=== PATIENT | male | born 1935 | race Caucasian/White ===

== ENCOUNTER 2022-03-14 14:10 | Outpatient (CLI) | payer MEDICARE, BC, SELFPAY | END 2022-03-14 14:11 | disposition home or self-care (01) | PROVIDERS: Visit Provider Family Medicine | DX: S79.911A Unspecified injury of right hip, initial encounter (principal); S09.90XA Unspecified injury of head, initial encounter; W18.30XA Fall on same level, unspecified, initial encounter; Y92.000 Kitchen of unspecified non-institutional (private) residence as the place of occurrence of the external cause | CPT/HCPCS: A0425; A0429 ==

== ENCOUNTER 2022-03-14 14:54 | Inpatient (IN) | payer MEDICARE, BC, SELFPAY ==
[2022-03-14] VITALS (17 sets, daily range): BP systolic 90–128; BP diastolic 47–69; PULSE 62–76; RESP 15–24; TEMP 36.4–37.6; O2SAT 87–98; BMI 31.1; BMI 27.4
--- NOTE | 2022-03-14 15:39 | CRLHL7_ITS ---
For Patients: As a result of the Century Cures Act, medical imaging exams and procedure reports are released immediately into your electronic medical record. You may view this report before your referring provider. If you have questions, please contact your health care provider. Indication: Fall left hip pain. Technique: CT of the pelvis without contrast. Coronal and sagittal reformations were performed. Please note that all CT scans at this facility use dose modulation, iterative reconstruction, and/or weight-based dosing when appropriate to reduce radiation dose to as low as reasonably achievable. Comparison: Abdominal CT 09/09/2020. Findings: No fracture or malalignment. Left total hip arthroplasty without evidence of loosening or fracture. Incomplete visualization of the left hip arthroplasty. Severe right hip osteoarthritis. Multilevel degenerative disc and facet disease in visualized lumbar spine. Bilateral SI joint degenerative change with subchondral cysts and vacuum disc phenomena. Degenerative changes in the pubic symphysis. Chondrocalcinosis in the pubic symphysis and right labral cartilage present Aortoiliac atherosclerosis. No aneurysm. Small fat containing left inguinal hernia. Remainder of the visualized pelvis is unremarkable. Impression: 1. No fracture or malalignment. 2. Left total hip arthroplasty without evidence of loosening or fracture. Incomplete evaluation. The distal tip of the left femoral prosthesis was not included on the exam. If patient`s pain is in this region recommend femur radiographs. 3. Severe right hip osteoarthritis. 4. Pubic symphysis, bilateral SI joints, and lower lumbar spine osteoarthritis. Please note that all CT scans at this facility use dose modulation, iterative reconstruction, and/or weight-based dosing when appropriate to reduce radiation dose to as low as reasonably achievable. Dictated by Raul Watkins MD @ 03/15/2022 9:27:22 AM (Electronically Signed)
--- NOTE | 2022-03-14 15:43 | CRLHL7_ITS ---
For Patients: As a result of the Century Cures Act, medical imaging exams and procedure reports are released immediately into your electronic medical record. You may view this report before your referring provider. If you have questions, please contact your health care provider. INDICATION: Fall. Low back pain. TECHNIQUE: CT of the lumbar spine without contrast. Coronal and sagittal reformats are included. COMPARISON: CT abdomen/pelvis from 09/09/2020. FINDINGS: Five lumbar type vertebral bodies, with the last fully formed disc space referred to as L5-S1. No acute fracture or traumatic malalignment of the lumbar spine. Multilevel laminectomy changes at the inferior thoracic levels through inferior L2. Focal lumbar kyphosis centered at L2-3. Accentuated lower lumbar lordosis. Moderate levoconvex scoliosis with apex at L3. Rightward lateral listhesis of L1 on L2. Leftward lateral listhesis of L3 on L4. L1-2 widening of the interspace due to large endplate erosions along with mild L1 anterior inferior height loss and L2 advanced right-sided height loss. There is also L2-3 interspace bony ankylosis with advanced right-sided height loss. L4-5 and L5-S1 moderate disc degeneration with disc height loss, partial intradiscal mineralization and large L5-S1 anterior paravertebral osteophyte. Atherosclerotic abdominal aorta and branch vessels. 2.5 centimeter gallstone is situated at the approximate region of the gallbladder fundus. Accompanying wall thickening of the gallbladder with mild surrounding fat stranding. Left posterior lumbar stimulator or pump control box. Findings at individual levels as follows: T11-12: Bilateral decompressive laminectomy changes. Mild disc bulge with overlying osteophytic ridging. No spinal canal or neural foraminal stenosis. T12-L1: Bilateral decompressive laminectomy changes. Mild disc bulge. No spinal canal or neural foraminal stenosis. L1-2: Bilateral decompressive laminectomy changes. Trace retrolisthesis. Moderate disc bulge with both the overlying osteophytic ridging. Bilateral facet arthrosis. At least moderate bilateral neural foraminal stenosis. L2-3: Bilateral decompressive laminectomy changes. Bulky dorsal osteophyte protrudes into the ventral spinal canal. Bilateral facet arthrosis. Advanced bilateral neural foraminal stenosis. L3-4: Trace anterolisthesis. Moderate disc bulge with overlying osteophytic ridging. Bilateral high-grade facet arthrosis and ligamentum flavum thickening. At least moderate spinal canal stenosis. Mild left and advanced right neural foraminal stenosis. L4-5: Trace anterolisthesis. Moderate disc bulge with overlying osteophytic ridging. High-grade right facet arthrosis. Mild left neural foraminal stenosis. No right neural foraminal stenosis or spinal canal stenosis. L5-S1: Trace anterolisthesis. Mild disc bulge with overlying osteophytic ridging, asymmetric to the left. Left facet arthrosis. Mild left neural foraminal stenosis. No right neural foraminal stenosis or spinal canal stenosis. SI joints and Sacrum: Bilateral SI joint arthrosis with joint space narrowing, vacuum phenomenon and subchondral sclerosis. Large right anterior sacral subchondral osteophytes. IMPRESSION: 1. CT findings suspicious for acute cholecystitis. 2. No acute fracture or traumatic malalignment of the lumbar spine. 3. Unchanged appearance of the deformed lumbar spine with L1-2 large endplate erosions/interspace widening, L2-3 interspace ankylosis and L1 through L3 asymmetric vertebral body height loss. When combined multilevel disc degeneration and degenerative subluxations, there is focal upper lumbar kyphosis and moderate levoconvex scoliosis. 4. Multilevel decompressive laminectomies at the lower thoracic levels through inferior L2. 5. At L1-2, at least moderate bilateral foraminal stenosis. 6. At L2-3, advanced bilateral neural foraminal stenosis. 7. At L3-4, at least moderate spinal canal stenosis and advanced right neural foraminal stenosis. 8. Exam findings discussed between Dr. Vasquez and Dr. Jona Anderson at 5:05 p.m. on March 14, 2022. Please note that all CT scans at this facility use dose modulation, iterative reconstruction, and/or weight-based dosing when appropriate to reduce radiation dose to as low as reasonably achievable. Dictated by Boni Lambert MD @ 03/15/2022 9:06:29 AM (Electronically Signed)
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
[2022-03-14] MEDS: HYDROCODONE-ACETAMIN 5-325 MG 1 TAB 2 TAB PO (15:57)
[2022-03-14] MEDS: 0.9 % SODIUM CHLORIDE 500 ML 500 ML IV (15:58)
[2022-03-14 16:16] LABS: Basophils Percent Auto 0.1 % (0.0-3.0); Hematocrit 36.7 % (37.0-53.0); Hemoglobin* 12.1 gm/dL (13.5-17.5); Immature Granulocytes Abs Auto 0.04 K/uL (0.00-0.30); Lymphocytes Percent Auto 4.6 % (20-44); Mean Corpuscular HGB Conc 33 gm/dL (32-36); Mean Corpuscular Hemoglobin 28 pg (26-34); Mean Corpuscular Volume 86 fL (80-100); Monocytes Percent Auto 10.7 % (0.0-11.0); Neutrophils Percent Auto 84.3 % (42.0-72.0); Platelet Count* 162 K/uL (140-440); RDW Coefficient of Variation % 15.2 % (11.5-15.5); Red Blood Count 4.26 m/uL (4.30-5.90); White Blood Count* 14.71 K/uL (4.50-11.00)
[2022-03-14 16:28] LABS: Slide Review Reflex No
[2022-03-14] MEDS: SENNOSIDES/DOCUSATE TABLET 1 TAB PO (16:38)
--- NOTE | 2022-03-14 16:41 | CRLHL7_ITS ---
For Patients: As a result of the Century Cures Act, medical imaging exams and procedure reports are released immediately into your electronic medical record. You may view this report before your referring provider. If you have questions, please contact your health care provider. INDICATION: Hypoxia, fever, elevated white blood cell count. TECHNIQUE: Chest 1 views. COMPARISON: Lumbar CT of same day. Chest radiograph June 2018 FINDINGS: Lungs: Normal lung volume. No consolidation. The tracheobronchial tree and hilar structures are unremarkable. Pleura: No pleural effusion or pneumothorax. Heart and Mediastinum: Stable cardiomegaly. ICD/pacer. Large hiatal hernia.. Atherosclerotic aorta. Bones: Stable osseous structures. IMPRESSION: No consolidation. Large hiatal hernia. Dictated by Jona Talavera MD @ 03/14/2022 5:21:38 PM (Electronically Signed)
[2022-03-14 16:56] LABS: Albumin* 3.3 g/dL (3.3-5.0); Chloride* 102 mmol/L (96-114); Sodium* 133 mmol/L (135-149)
[2022-03-14 16:57] LABS: Potassium* 4.2 mmol/L (3.6-5.1)
[2022-03-14 16:59] LABS: Bilirubin Total* 4.1 mg/dL (0.1-1.5); Creatinine* 1.1 mg/dL (0.5-1.5); Est. Creatinine Clearance* 43.48; Estimated Glomerular Filt Rate 66 ml/min
[2022-03-14 17:00] LABS: Alanine Aminotransferase* 54 U/L (4-50); Alkaline Phosphatase* 130 U/L (40-150); Aspartate Amino Transferase* 113 U/L (12-35); Blood Urea Nitrogen* 33 mg/dL (7-30); Calcium* 8.4 mg/dL (8.4-10.6); Carbon Dioxide* 24 mmol/L (20-32); Glucose* 140 mg/dL (60-115); Total Protein* 5.9 g/dL (6.0-8.3)
[2022-03-14 17:05] LABS: Appearance Urine Clear (Clear); Bilirubin Urine 1+ (Negative); Blood Urine Trace-lysed (Negative); Color Urine Orange (Yellow); Glucose Urine Negative (Negative); Ketones Urine Negative (Negative); Leukocyte Esterase Urine Negative (Negative); Nitrite Urine Positive (Negative); Protein Urine 2+ (Negative); pH Urine 5.5 (5.0-8.5)
--- NOTE | 2022-03-14 17:06 | CRLHL7_ITS ---
For Patients: As a result of the Century Cures Act, medical imaging exams and procedure reports are released immediately into your electronic medical record. You may view this report before your referring provider. If you have questions, please contact your health care provider. INDICATION: Fever, evidence of cholecystitis on CT.. TECHNIQUE: Ultrasound abdomen limited. Sonographic images of the right upper quadrant were obtained using fay-scale and color Doppler images. COMPARISON: CT of the chest abdomen pelvis from March 14, 2022. FINDINGS: Liver: Not well visualized. Visualized portions appear to be normal in size and echotexture. No suspicious masses. No intrahepatic biliary dilatation identified. Gallbladder: Large shadow stone is identified at the gallbladder neck, measuring approximately 2 centimeters in diameter. Increased gallbladder wall thickening measuring up to 5 millimeters in diameter.. Gallbladder sludge is noted within the lumen of the gallbladder.. Possible small pericholecystic fluid. Common bile duct: 4 mm. Pancreas: Not well visualized Right kidney: Normal in size. Complex cystic structure with peripheral calcification within the superior pole the right kidney no suspicious stones, or hydronephrosis. Vasculature: Proximal abdominal aorta and IVC are unremarkable. IMPRESSION: Ultrasound findings most consistent with cholecystitis. Large stone at the neck of the gallbladder. Complex cystic structure at the superior pole the right kidney. This can be further evaluated with dedicated renal ultrasound and/or renal protocol CT or MRI. Dictated by Abraham Major MD @ 03/14/2022 6:45:16 PM (Electronically Signed)
[2022-03-14 17:19] LABS: C Reactive Protein* 19.2 mg/dL (0.5-1.0)
--- NOTE | 2022-03-14 17:29 | CRLHL7_ITS ---
For Patients: As a result of the Century Cures Act, medical imaging exams and procedure reports are released immediately into your electronic medical record. You may view this report before your referring provider. If you have questions, please contact your health care provider. INDICATION: Hypoxia, fever. TECHNIQUE: CT chest, abdomen, and pelvis acquired with 95 mL Isovue 370 contrast. COMPARISON: CT abdomen/pelvis dated 09/09/2020. FINDINGS: CHEST: Lungs and pleura: Bibasilar dependent atelectasis. No focal consolidation. No evidence of pulmonary infarct. Heart and vessels: Mild cardiomegaly. Atherosclerotic coronary artery calcifications. No filling defects identified within the main, lobar, and contrast opacified portions of the segmental pulmonary arteries. Thyroid and lower neck: No suspicious thyroid nodule. Mediastinum/danyelle: No lymphadenopathy. Chest wall: No axillary lymphadenopathy. Cardiac pacemaker is present in the left chest wall. Small intramuscular lipoma in the right lateral chest wall. ABDOMEN/PELVIS: Liver: No suspicious focal hepatic lesion. Gallbladder and bile ducts: Distended gallbladder with significant gallbladder wall thickening and/or pericholecystic fluid. A large 2.8 cm gallstone is lodged at the gallbladder neck. Mild intrahepatic biliary duct dilation. Pancreas: Scattered cystic lesions, largest measures up to 1.7 cm at the pancreatic tail, slightly increased since prior study. Spleen: Unremarkable. Adrenal glands: Unremarkable. Kidneys: Kidneys enhance symmetrically, without hydronephrosis. Heterogeneous complex 2.5 cm right renal lesion (series 8, image 60), has slightly decreased in size since prior study, and may reflect an involuting complex cyst. Stable indeterminate 4.0 cm exophytic lesion in the interpolar region of the left kidney. Additional bilateral renal cysts and too small to characterize hypodense renal lesions are noted. Retroperitoneum: No lymphadenopathy. Bowel and mesentery: Bowel is nonobstructed. Scattered colonic diverticulosis, without evidence of acute diverticulitis. Large fecal burden is scattered throughout the colon. No significant ascites. Large hiatal hernia. No definite pneumoperitoneum. Bladder: Mild circumferential bladder wall thickening. Reproductive organs: Prostatomegaly. Pelvic lymph nodes: No definite lymphadenopathy. Vessels: Extensive atherosclerotic calcifications. Abdominal wall: No acute abdominal wall abnormality. Bones: Extensive and severe multilevel degenerative changes of the spine. Left hip arthroplasty. Spinal stimulator device is present. IMPRESSION: 1. Distended gallbladder with significant gallbladder wall thickening and/or pericholecystic fluid, in the presence of a large gallstone lodged at the gallbladder neck. Findings are concerning for acute cholecystitis. 2. No evidence of acute pulmonary embolus. 3. Indeterminate bilateral renal lesions as described above. Scattered cystic lesions within the pancreas. These both can be evaluated with follow-up MR abdomen in 6-12 months. 4. Mild circumferential bladder wall thickening, recommend correlation with urinalysis. 5. Numerous additional incidental findings as above. Please note that all CT scans at this facility use dose modulation, iterative reconstruction, and/or weight-based dosing when appropriate to reduce radiation dose to as low as reasonably achievable. Dictated by Nikki Martel MD @ 03/14/2022 7:07:21 PM (Electronically Signed)
[2022-03-14 17:36] LABS: SARS PCR* Negative SARS-CoV-2 (Negative)
[2022-03-14 17:44] LABS: Bacteria Urine Few; RBC Urine 0-2 (0-2); Squamous Epithelial Cell Urine Moderate (None-Few)
[2022-03-14 17:56] LABS: Bilirubin Direct* 1.1 mg/dL (0.0-0.5)
[2022-03-14 18:24] LABS: HCO3 VBG 26 mmol/L (21-28); PCO2 VBG 40 mmHG (40-50); PO2 VBG 46.8 mmHG (25-47); pH VBG 7.409 (7.32-7.43)
[2022-03-14] MEDS: ERTAPENEM 1 GM in 0.9 % SODIUM CHLORIDE Mini-bag 100 ML IVPB (18:26)
[2022-03-14] MEDS: LACTATED RINGERS 1000 ML IV (18:45)
[2022-03-14 20:56] LABS: NT Pro B Type NatriureticPept* 3580 PG/mL (0-450)
[2022-03-14 21:01] LABS: Troponin I* 0.06 ng/mL (0.01-0.04)
--- NOTE | 2022-03-14 21:02 | ED.NURSE ---
Critical Lab: Troponin I 0.06, handed to Dr. Benavidez at 2103.
--- NOTE | 2022-03-14 21:06 | ED.NURSE ---
MD Tran updated on 0..
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
--- NOTE | 2022-03-14 21:41 | ED.NURSE ---
report to ranjit jones on med surg, pt transported via cot to ccu2
[2022-03-14] MEDS: LACTATED RINGERS 1000 ML 1,000 ML 75 ML IV (22:15)
[2022-03-14] MEDS: LACTATED RINGERS 1000 ML 500 ML IV (22:15)
[2022-03-14 22:58] LABS: Lactate* 1.2 mmol/L (0.5-1.9)
[2022-03-14 23:14] LABS: Albumin* 3.3 g/dL (3.3-5.0)
[2022-03-14 23:15] LABS: Chloride* 100 mmol/L (96-114); Potassium* 4.3 mmol/L (3.6-5.1); Prothrombin Time 16.7 Seconds; Sodium* 134 mmol/L (135-149)
[2022-03-14 23:17] LABS: Alkaline Phosphatase* 128 U/L (40-150); Aspartate Amino Transferase* 80 U/L (12-35); Bilirubin Total* 4.4 mg/dL (0.1-1.5); Blood Urea Nitrogen* 28 mg/dL (7-30); Carbon Dioxide* 27 mmol/L (20-32); Creatinine* 0.9 mg/dL (0.5-1.5); Est. Creatinine Clearance* 51.41; Estimated Glomerular Filt Rate 84 ml/min; Total Protein* 5.9 g/dL (6.0-8.3)
[2022-03-14 23:18] LABS: Alanine Aminotransferase* 55 U/L (4-50); Calcium* 8.4 mg/dL (8.4-10.6); Glucose* 112 mg/dL (60-115)
[2022-03-14 23:23] LABS: Gamma Glutamyl Transpeptidase* 45 U/L (8-55); Lipase* 25 U/L (23-300)
[2022-03-14 23:29] LABS: Troponin I* 0.05 ng/mL (0.01-0.04)
--- NOTE | 2022-03-14 23:50 | PC.NURSE ---
Addendum entered by Randy Licona RN 03/15/22 06:44: Pt upset and asking for to call his and son to come in now and take him home tried to redirect and then he fell asleep after ANITA applied again as he c/o being cold and was shaking. Addendum entered by Randy Licona RN 03/15/22 06:09: UOP from [id number] 75mls lucille urine via Christine catheter. Confusion waxing and waning. Ultram given for pain w/repositioning and top linens and gown changed as they were a little sweaty. O2 decreased to 1LNC Addendum entered by Randy Licona RN 03/15/22 04:20: Pt c/o being cold and hands were cold so ANITA blanket applied for about an hour at about 0100. Temp went to 100.2. Took ANITA off and gave Tylenol and temp resolved to 97.9 at 0400. Pt is a little sweaty. He is more oriented, less fidgety and was able to assist in repositioning done to point of comfort. UOP from about 2200 to 0400 350mls dark lucille urine. Tele is 60-70s sinus arrythmia, occ paced, occ PVCs. Has been taking in sips of liquids Original Note: Admitted to room CCU2 about 2100. VSS 1LNC needing increase to 2LNC by 0000. Apparently has some FERNANDA issues. O2 sats and NIBP monitored continuously. Has denied pain at rest but seems to have a lot of musculoskeletal pain when moved. Pt is very confused which according to his is a bit of a departure and [place]. Pt placed on hard-wired telemetry reads irregular sinus rhythm w/BBB and occ PVCs. Bowel tones hypoactive and abdomen is soft and non tender. reported PCN allergy which I entered and Dr. Cueto was updated and I entered an adverse reaction to opiates d/t confusion as well. Christine catheter inserted w/a lot of resistance at about from the 1 inch to 3 inch mary using 16fr coude catheter returned 100mls dark lucille urine pt was incontinent of large amount on admit. Has 2 small intact band aids to the right L/E.
[2022-03-15] VITALS (24 sets, daily range): BP systolic 97–170; BP diastolic 57–85; PULSE 66–116; RESP 17–32; TEMP 36.3–38.2; O2SAT 92–99
[2022-03-15] MEDS: ACETAMINOPHEN 325 MG TABLET PO (01:45)
[2022-03-15] MEDS: TRAMADOL HCL 50 MG TABLET PO (05:58)
[2022-03-15 07:15] LABS: HCO3 VBG 24 mmol/L (21-28); Ionized Calcium* 1.13 mmol/L (1.11-1.30); Lactate* 0.7 mmol/L (0.5-1.9); PCO2 VBG 33 mmHG (40-50); PO2 VBG 68.9 mmHG (25-47); pH VBG 7.469 (7.32-7.43)
[2022-03-15 07:30] LABS: Hematocrit 35.3 % (37.0-53.0); Hemoglobin* 11.5 gm/dL (13.5-17.5); Mean Corpuscular HGB Conc 33 gm/dL (32-36); Mean Corpuscular Hemoglobin 28 pg (26-34); Mean Corpuscular Volume 86 fL (80-100); Platelet Count* 180 K/uL (140-440); Red Blood Count 4.09 m/uL (4.30-5.90); White Blood Count* 13.94 K/uL (4.50-11.00)
[2022-03-15 07:32] LABS: Slide Review Reflex No
[2022-03-15 07:40] LABS: INR 1.39 (0.91-1.10); Prothrombin Time 17.5 Seconds
[2022-03-15 07:42] LABS: Albumin* 2.9 g/dL (3.3-5.0); Chloride* 105 mmol/L (96-114); Sodium* 134 mmol/L (135-149)
[2022-03-15 07:45] LABS: Aspartate Amino Transferase* 52 U/L (12-35); Carbon Dioxide* 23 mmol/L (20-32); Creatinine* 0.8 mg/dL (0.5-1.5); Est. Creatinine Clearance* 51.41; Estimated Glomerular Filt Rate 87 ml/min
[2022-03-15 07:46] LABS: Alanine Aminotransferase* 45 U/L (4-50); Alkaline Phosphatase* 126 U/L (40-150); Blood Urea Nitrogen* 23 mg/dL (7-30); Calcium* 8.2 mg/dL (8.4-10.6); Gamma Glutamyl Transpeptidase* 41 U/L (8-55); Glucose* 102 mg/dL (60-115); Lipase* 15 U/L (23-300); Magnesium* 1.9 mg/dL (1.5-2.6); Total Protein* 5.4 g/dL (6.0-8.3)
[2022-03-15 07:56] LABS: NT Pro B Type NatriureticPept* 4400 PG/mL (0-450)
[2022-03-15 08:01] LABS: Troponin I* 0.05 ng/mL (0.01-0.04)
[2022-03-15 08:02] LABS: C Reactive Protein* 22.6 mg/dL (0.5-1.0)
[2022-03-15] MEDS: OMEPRAZOLE 20 MG CAPSULE DR 40 MG PO (09:01)
[2022-03-15] MEDS: ROPINIROLE HCL 0.25 MG TABLET PO ×2 (09:01→14:25)
[2022-03-15] MEDS: ASPIRIN 81 MG TABLET EC PO (09:02)
[2022-03-15] MEDS: GABAPENTIN 300 MG CAPSULE 600 MG PO ×2 (09:02→14:24)
[2022-03-15 09:27] LABS: Bilirubin Total* 3.2 mg/dL (0.1-1.5)
[2022-03-15 09:28] LABS: Bilirubin Direct* 1.1 mg/dL (0.0-0.5)
--- NOTE | 2022-03-15 11:21 | P.GSCN_ITS ---
History of Present Illness Consult details Date Seen: 03/15/22 Consult date: 03/15/22 Narrative: 86-year-old male presented to emergency room with abdominal pain and fever and I was asked by Dr. Black to see him in consultation. Patient states that he recently fell and was having back pain. He also describes a mild generalized abdominal pain since his fall. He also occasionally had pain in the right mid abdomen that he described as dull. This pain has been present for many months and has not changed significantly recently. Patient feel like this pain was worse after over eating but not necessarily eating greasy food. Patient denies any nausea vomiting. He had constipation with no bowel movement for 3-4 days. His gave him a fleets enema and he had a bowel movement. In the emergency room he was found to have an elevated WBC. His total bilirubin and direct bilirubin were elevated with minimally elevated transaminases and normal alkaline phosphatase. Patient had an abdominal CT scan that showed thickened gallbladder wall with significant amount of pericholecystic fluid. There was a gallstone in the neck of the gallbladder. A gallbladder ultrasound was also obtained that showed thickened gallbladder wall 5 mm. There was evidence of a gallstone and the common bile duct was measured at 4 mm. Patient had an abdominal CT in September of 2020 that mentioned possible gallbladder wall thickening with cholelithiasis. Review of Systems Narrative: General: + fever HENT: no problems swallowing CV: no shortness of breath Resp: no cough GI: see above : + increased urinary frequency Skin: no new rashes Musculoskeletal: + back pain from recent fall Neuro: needs help with walking Psyche: no depression PFSH PFSH Medical History (Updated 03/15/22 @ 16:17 by Rickey Black MD) Acute on chronic cholecystitis Anastomotic stricture of urinary tract Antiplatelet or antithrombotic long-term use BPH (benign prostatic hyperplasia) Cardiomyopathy Chronic pain disorder Chronotropic incompetence with sinus node dysfunction Coronary artery disease Dyslipidemia GERD (gastroesophageal reflux disease) History of cervical spine trauma Hypertension Pacemaker Pancreatic cyst Personal history of sudden cardiac arrest Post laminectomy syndrome Surgical History A-V fistula H/O cataract removal with insertion of prosthetic lens H/O hemorrhoidectomy History of appendectomy History of coronary artery stent placement History of hip replacement History of permanent cardiac pacemaker placement Hx of laminectomy S/P tonsillectomy and adenoidectomy Social History (Updated 03/15/22 @ 11:22 by Jennifer Tran MD) Narrative: Patient lives with his . Does not walk a lot on his own because of frequent falls. Smoking Status: Never smoker Do you use any of these nicotine containing products: None How often do you have a drink containing alcohol: never AUDIT-C Alcohol total score: 0 Non-prescribed substance use: denies use Meds Home Medications and Allergies Home Medications Medication Instructions Recorded Confirmed Type amlodipine 2.5 mg tablet 2.5 mg PO DAILY 03/14/22 03/14/22 History atorvastatin 40 mg tablet 40 mg PO NIGHTLY 03/14/22 03/14/22 History clopidogrel 75 mg tablet 75 mg PO DAILY 03/14/22 03/14/22 History gabapentin 300 mg capsule 600 mg PO TID 03/14/22 03/14/22 History metoprolol succinate 25 mg 25 mg PO DAILY 03/14/22 03/14/22 History tablet,extended release 24 hr oxybutynin chloride 10 mg 10 mg PO DAILY 03/14/22 03/14/22 History tablet,extended release 24 hr pantoprazole 40 mg tablet,delayed 40 mg PO DAILY 03/14/22 03/14/22 History release ropinirole 0.25 mg tablet 0.25 mg PO TID 03/14/22 03/14/22 History tramadol 50 mg tablet 50 mg PO BID PRN pain 03/14/22 03/14/22 History aspirin 81 mg chewable tablet 81 mg PO DAILY 03/15/22 03/15/22 History (Aspirin Childrens) sennosides 8.6 mg tablet (Winnie-snehal) 8.6 mg PO DAILY 03/15/22 03/15/22 History tamsulosin 0.4 mg capsule 0.4 mg PO DAILY 03/15/22 03/15/22 History Allergies Allergy/AdvReac Type Severity Reaction Status Date / Time Penicillins Allergy Verified 03/15/22 07:26 Exam Narrative: Exam Narrative: General appearance: Alert, cooperative, and in no distress Pulmonary: Chest symmetric, lungs clear bilaterally Cardiovascular Heart: Regular rate and rhythm, S1, S2, no murmurs/rubs/gallops Gastrointestinal Abdominal: very soft, not distended , minimal discomfort to palpation in the left lower quadrant and right upper quadrant, with deep palpation in the right upper quadrant patient has increased discomfort but negative James sign. Skin: Normal skin color, texture, and turgor. No rashes or lesions. Psychiatric: Alert, cooperative, normal affect. Const: Vital Signs, click to edit/add: Vital Signs - 24 hr 03/14/22 15:03 03/14/22 16:13 03/14/22 17:08 Temperature 99.6 F Pulse Rate Pulse Rate [Apical ] Pulse Rate [Right Pulse Oximeter] 70 74 64 Respiratory Rate 18 24 Blood Pressure Blood Pressure [Le ft Upper Arm] 98/60 109/64 100/56 L Blood Pressure [Ri ght Arm] Pulse Oximetry 90 96 97 Oxygen Delivery Me thod Room Air Room Air Nasal Cannula Oxygen Flow Rate 2.5 03/14/22 16:29 03/14/22 17:08 03/14/22 17:52 Temperature Pulse Rate 69 Pulse Rate [Apical ] Pulse Rate [Right Pulse Oximeter] Respiratory Rate Blood Pressure 91/62 Blood Pressure [Le ft Upper Arm] Blood Pressure [Ri ght Arm] Pulse Oximetry 96 96 Oxygen Delivery Me thod Nasal Cannula Nasal Cannula Oxygen Flow Rate 2.5 2.5 03/14/22 18:53 03/14/22 18:02 03/14/22 18:34 Temperature 97.5 F L Pulse Rate 73 Pulse Rate [Apical ] Pulse Rate [Right Pulse Oximeter] 65 Respiratory Rate 15 Blood Pressure 96/61 101/59 L Blood Pressure [Le ft Upper Arm] 101/59 L Blood Pressure [Ri ght Arm] Pulse Oximetry 97 87 L 97 Oxygen Delivery Me thod Nasal Cannula Oxygen Flow Rate 2.5 03/14/22 19:01 03/14/22 19:31 03/14/22 20:02 Temperature Pulse Rate 65 65 64 Pulse Rate [Apical ] Pulse Rate [Right Pulse Oximeter] Respiratory Rate Blood Pressure 103/59 L 102/68 112/69 Blood Pressure [Le ft Upper Arm] Blood Pressure [Ri ght Arm] Pulse Oximetry 95 96 96 Oxygen Delivery Me thod Oxygen Flow Rate 03/14/22 20:31 03/14/22 21:02 03/14/22 21:45 Temperature 98.0 F Pulse Rate 63 62 Pulse Rate [Apical ] 76 Pulse Rate [Right Pulse Oximeter] Respiratory Rate 24 Blood Pressure 90/47 L 97/49 L Blood Pressure [Le ft Upper Arm] Blood Pressure [Ri ght Arm] 125/66 Pulse Oximetry 94 98 Oxygen Delivery Me thod Nasal Cannula Oxygen Flow Rate 1 03/14/22 23:08 03/14/22 23:08 03/14/22 23:10 Temperature Pulse Rate 75 Pulse Rate [Apical ] 72 Pulse Rate [Right Pulse Oximeter] Respiratory Rate 24 24 Blood Pressure Blood Pressure [Le ft Upper Arm] Blood Pressure [Ri ght Arm] 128/68 Pulse Oximetry 96 95 Oxygen Delivery Me thod Nasal Cannula Nasal Cannula Oxygen Flow Rate 1 1 03/14/22 23:49 03/14/22 23:49 03/15/22 01:00 Temperature Pulse Rate Pulse Rate [Apical ] 83 Pulse Rate [Right Pulse Oximeter] Respiratory Rate 20 Blood Pressure Blood Pressure [Le ft Upper Arm] Blood Pressure [Ri ght Arm] 119/62 Pulse Oximetry 88 96 94 Oxygen Delivery Me thod Nasal Cannula Nasal Cannula Nasal Cannula Oxygen Flow Rate 1 2 2 03/15/22 01:31 03/15/22 02:05 03/15/22 03:03 Temperature 100.3 F H 99.1 F Pulse Rate Pulse Rate [Apical ] 81 91 89 Pulse Rate [Right Pulse Oximeter] Respiratory Rate 24 20 Blood Pressure Blood Pressure [Le ft Upper Arm] Blood Pressure [Ri ght Arm] 112/57 L 117/63 103/57 L Pulse Oximetry 94 95 92 Oxygen Delivery Me thod Nasal Cannula Nasal Cannula Nasal Cannula Oxygen Flow Rate 2 2 2 03/15/22 03:42 03/15/22 04:11 03/15/22 05:04 Temperature 97.9 F 98.3 F Pulse Rate 71 Pulse Rate [Apical ] 66 66 Pulse Rate [Right Pulse Oximeter] Respiratory Rate 20 24 Blood Pressure Blood Pressure [Le ft Upper Arm] Blood Pressure [Ri ght Arm] 116/60 105/62 Pulse Oximetry 96 94 Oxygen Delivery Me thod Nasal Cannula Nasal Cannula Oxygen Flow Rate 2 2 03/15/22 05:34 03/15/22 06:10 03/15/22 07:40 Temperature 97.6 F Pulse Rate Pulse Rate [Apical ] 77 Pulse Rate [Right Pulse Oximeter] Respiratory Rate 24 Blood Pressure Blood Pressure [Le ft Upper Arm] Blood Pressure [Ri ght Arm] 105/62 112/60 Pulse Oximetry 98 97 Oxygen Delivery Me thod Nasal Cannula Nasal Cannula Oxygen Flow Rate 2 0.5 03/15/22 07:40 03/15/22 07:12 03/15/22 08:00 Temperature 97.4 F L Pulse Rate 76 Pulse Rate [Apical ] 95 77 Pulse Rate [Right Pulse Oximeter] Respiratory Rate 20 Blood Pressure Blood Pressure [Le ft Upper Arm] Blood Pressure [Ri ght Arm] 97/67 104/76 Pulse Oximetry 97 Oxygen Delivery Me thod Nasal Cannula Oxygen Flow Rate 0.5 03/15/22 11:12 Temperature 99.2 F Pulse Rate Pulse Rate [Apical ] 92 Pulse Rate [Right Pulse Oximeter] Respiratory Rate 18 Blood Pressure Blood Pressure [Le ft Upper Arm] Blood Pressure [Ri ght Arm] 142/69 H Pulse Oximetry 95 Oxygen Delivery Me thod Nasal Cannula Oxygen Flow Rate 0.5 Results Labs Labs: Abnormal lab results 03/14/22 03/14/22 03/14/22 Range/Units 16:07 16:07 16:57 WBC 14.71 H (4.50-11.00) K/uL RBC 4.26 L (4.30-5.90) m/uL Hgb 12.1 L (13.5-17.5) gm/dL Hct 36.7 L (37.0-53.0) % Neut % (Auto) 84.3 H (42.0-72.0) % Lymph % (Auto) 4.6 L (20-44) % Neut # (Auto) 12.40 H (1.7-7.0) K/uL Lymph # (Auto) 0.70 L (0.90-2.90) K/uL [place] # (Auto) 1.60 H (0.00-0.90) K/UL INR (0.91-1.10) VBG pH (7.32-7.43) VBG pCO2 (40-50) mmHG VBG pO2 (25-47) mmHG Sodium 133 L (135-149) mmol/L BUN 33 H (7-30) mg/dL Glucose 140 H (60-115) mg/dL Calcium (8.4-10.6) mg/dL Total Bilirubin 4.1 H (0.1-1.5) mg/dL Direct Bilirubin 1.1 H (0.0-0.5) mg/dL AST 113 H (12-35) U/L ALT 54 H (4-50) U/L Troponin I 0.06 H* (0.01-0.04) ng/mL C-Reactive Protein 19.2 H (0.5-1.0) mg/dL NT-Pro-B Natriuret Pep 3580 H (0-450) PG/mL Total Protein 5.9 L (6.0-8.3) g/dL Albumin (3.3-5.0) g/dL Lipase (23-300) U/L Urine Color [place] A (Yellow) Urine Protein 2+ A (Negative) Urine Blood Trace-lysed A (Negative) Urine Nitrite Positive A (Negative) Urine Bilirubin 1+ A (Negative) Ur Squamous Epith Cells Moderate A (None-Few) Urine Bacteria Few A (None) 03/14/22 03/14/22 03/15/22 Range/Units 22:55 22:55 06:54 WBC 13.94 H (4.50-11.00) K/uL RBC 4.09 L (4.30-5.90) m/uL Hgb 11.5 L (13.5-17.5) gm/dL Hct 35.3 L (37.0-53.0) % Neut % (Auto) (42.0-72.0) % Lymph % (Auto) (20-44) % Neut # (Auto) (1.7-7.0) K/uL Lymph # (Auto) (0.90-2.90) K/uL [place] # (Auto) (0.00-0.90) K/UL INR 1.30 H (0.91-1.10) VBG pH (7.32-7.43) VBG pCO2 (40-50) mmHG VBG pO2 (25-47) mmHG Sodium 134 L (135-149) mmol/L BUN (7-30) mg/dL Glucose (60-115) mg/dL Calcium (8.4-10.6) mg/dL Total Bilirubin 4.4 H (0.1-1.5) mg/dL Direct Bilirubin (0.0-0.5) mg/dL AST 80 H (12-35) U/L ALT 55 H (4-50) U/L Troponin I 0.05 H (0.01-0.04) ng/mL C-Reactive Protein (0.5-1.0) mg/dL NT-Pro-B Natriuret Pep (0-450) PG/mL Total Protein 5.9 L (6.0-8.3) g/dL Albumin (3.3-5.0) g/dL Lipase (23-300) U/L Urine Color (Yellow) Urine Protein (Negative) Urine Blood (Negative) Urine Nitrite (Negative) Urine Bilirubin (Negative) Ur Squamous Epith Cells (None-Few) Urine Bacteria (None) 03/15/22 03/15/22 03/15/22 Range/Units 06:54 06:54 06:54 WBC (4.50-11.00) K/uL RBC (4.30-5.90) m/uL Hgb (13.5-17.5) gm/dL Hct (37.0-53.0) % Neut % (Auto) (42.0-72.0) % Lymph % (Auto) (20-44) % Neut # (Auto) (1.7-7.0) K/uL Lymph # (Auto) (0.90-2.90) K/uL [place] # (Auto) (0.00-0.90) K/UL INR 1.39 H (0.91-1.10) VBG pH 7.469 H (7.32-7.43) VBG pCO2 33 L (40-50) mmHG VBG pO2 68.9 H (25-47) mmHG Sodium 134 L (135-149) mmol/L BUN (7-30) mg/dL Glucose (60-115) mg/dL Calcium 8.2 L (8.4-10.6) mg/dL Total Bilirubin 3.2 H (0.1-1.5) mg/dL Direct Bilirubin 1.1 H (0.0-0.5) mg/dL AST 52 H (12-35) U/L ALT (4-50) U/L Troponin I 0.05 H (0.01-0.04) ng/mL C-Reactive Protein 22.6 H (0.5-1.0) mg/dL NT-Pro-B Natriuret Pep 4400 H (0-450) PG/mL Total Protein 5.4 L (6.0-8.3) g/dL Albumin 2.9 L (3.3-5.0) g/dL Lipase 15 L (23-300) U/L Urine Color (Yellow) Urine Protein (Negative) Urine Blood (Negative) Urine Nitrite (Negative) Urine Bilirubin (Negative) Ur Squamous Epith Cells (None-Few) Urine Bacteria (None) Diabetes panel 03/14/22 03/14/22 03/15/22 Range/Units 16:07 22:55 06:54 Sodium 133 L 134 L 134 L (135-149) mmol/L Potassium 4.2 4.3 4.0 (3.6-5.1) mmol/L Chloride 102 100 105 (96-114) mmol/L Carbon Dioxide 24 27 23 (20-32) mmol/L BUN 33 H 28 23 (7-30) mg/dL Creatinine 1.1 0.9 0.8 (0.5-1.5) mg/dL Glucose 140 H 112 102 (60-115) mg/dL Calcium 8.4 8.4 8.2 L (8.4-10.6) mg/dL AST 113 H 80 H 52 H (12-35) U/L ALT 54 H 55 H 45 (4-50) U/L Alkaline Phosphatase 130 128 126 (40-150) U/L Total Protein 5.9 L 5.9 L 5.4 L (6.0-8.3) g/dL Albumin 3.3 3.3 2.9 L (3.3-5.0) g/dL Calcium panel 03/14/22 03/14/22 03/15/22 Range/Units 16:07 22:55 06:54 Calcium 8.4 8.4 8.2 L (8.4-10.6) mg/dL Ionized Calcium [place] (1.11-1.30) mmol/L Albumin 3.3 3.3 2.9 L (3.3-5.0) g/dL 03/15/22 Range/Units 06:54 Calcium (8.4-10.6) mg/dL Ionized Calcium [place] 1.13 (1.11-1.30) mmol/L Albumin (3.3-5.0) g/dL Pituitary panel 03/14/22 03/14/22 03/15/22 Range/Units 16:07 22:55 06:54 Sodium 133 L 134 L 134 L (135-149) mmol/L Potassium 4.2 4.3 4.0 (3.6-5.1) mmol/L Chloride 102 100 105 (96-114) mmol/L Carbon Dioxide 24 27 23 (20-32) mmol/L BUN 33 H 28 23 (7-30) mg/dL Creatinine 1.1 0.9 0.8 (0.5-1.5) mg/dL Glucose 140 H 112 102 (60-115) mg/dL Calcium 8.4 8.4 8.2 L (8.4-10.6) mg/dL Adrenal panel 03/14/22 03/14/22 03/15/22 Range/Units 16:07 22:55 06:54 Sodium 133 L 134 L 134 L (135-149) mmol/L Potassium 4.2 4.3 4.0 (3.6-5.1) mmol/L Chloride 102 100 105 (96-114) mmol/L Carbon Dioxide 24 27 23 (20-32) mmol/L BUN 33 H 28 23 (7-30) mg/dL Creatinine 1.1 0.9 0.8 (0.5-1.5) mg/dL Glucose 140 H 112 102 (60-115) mg/dL Calcium 8.4 8.4 8.2 L (8.4-10.6) mg/dL Total Bilirubin 4.1 H 4.4 H 3.2 H (0.1-1.5) mg/dL AST 113 H 80 H 52 H (12-35) U/L ALT 54 H 55 H 45 (4-50) U/L Alkaline Phosphatase 130 128 126 (40-150) U/L Total Protein 5.9 L 5.9 L 5.4 L (6.0-8.3) g/dL Albumin 3.3 3.3 2.9 L (3.3-5.0) g/dL All other labs normal. Assessment and Plan Assessment and plan (1) Acute on chronic cholecystitis: Problem comment: Optimal care would involve transfer for percutaneous drainage of his gallbladder. This is currently not available. Consult General surgery. Continue broad-spectrum antibiotics pending culture. NPO and IV fluids. Manage sepsis. Status: Acute Plan 86-year-old male admitted to the hospital with likely acute on chronic cholecystitis and possible choledocholithiasis. Patient's blood cultures came back with Gram-positive cocci. Patient did not have any further fevers in the hospital. His blood pressure is improving as well with fluid resuscitation. Since I saw the patient in the morning, he went into atrial fibrillation with rapid ventricular rate. He also became delirious. I discussed with the patient's and son all the imaging and laboratory findings. Patient's gallbladder wall does appear thickened with pericholecystic fluid. His symptoms have been going on for a long time and I suspect that he might have acute on chronic cholecystitis. There is also a stone lodged in the neck of the gallbladder which is concerning for gallbladder hydrops. Patient total bilirubin and direct bilirubin continue to be elevated raising the possibility of a common bile duct stone. However the common bile duct size was normal on the ultrasound. Patient's elevated bilirubin could also be due to sev ere inflammation of his gallbladder. Given patient's comorbidities, his age, functional status, and the prolonged nature of his symptoms with chronic cholecystitis, I would recommend placement of cholecystostomy tube. Patient is a high risk for surgical procedure due to his cardiac history, his current state, and functional status. I discussed with the family the risks associated the procedure including the risk of bleeding in a patient who stop Plavix only 2 days ago. Patient would most likely need platelet transfusion if he was taken to the operating room. I specifically discussed that patient might have a heart attack or cardiac arrest intraoperatively or postoperatively. The Radiology Department was contacted at the tertiary center for possible outpatient cholecystostomy tube placement. The radiologist did not feel that it would be safe to place cholecystostomy tube and then transfer the patient by ambulance back to our hospital. All hospitals in [place] were called again today in the morning and no beds were available. We will continue looking for other hospitals as this patient has became more of an ICU patient. We will also look in [place] per patient's family request and in [place].
--- NOTE | 2022-03-15 12:51 | REH.OT ---
Orders received, chart reviewed. Patient unavailable initial attempt and now in Echo. Will reschedule eval.
[2022-03-15] MEDS: HYDROmorphone 0.5 mg/0.5 ml inj 0.2 MG IVP (13:04)
[2022-03-15] MEDS: ERTAPENEM 1 GM in 0.9 % SODIUM CHLORIDE Mini-bag 100 ML IVPB (13:05)
[2022-03-15] MEDS: LORazepam 2 MG/ML inj 0.25 MG IVP (14:11)
[2022-03-15] MEDS: METOPROLOL TARTRATE 1 MG/ML inj 5 MG IVP ×3 (14:22→19:55)
[2022-03-15] MEDS: QUETIAPINE 25 MG TABLET PO (14:25)
--- NOTE | 2022-03-15 15:47 | P.IMPN_ITS ---
Progress Note: A&P Assessment and plan (1) Acute on chronic cholecystitis: Problem details: Optimal care would involve transfer for percutaneous drainage of his gallbladder. This is currently not available. Consult General surgery. Continue broad-spectrum antibiotics pending culture. NPO and IV fluids. Manage sepsis. Status: Acute (2) Cardiomyopathy: Problem details: ischemic cardiomyopathy and prior inferior wall myocardial infarction years ago. His left ventricular systolic function has been mildly reduced over the years with an estimated systolic ejection fraction of 40-45%. s/p Stents and Pacemaker; h/o of cardiac arrest in 1997 and 2011. Preliminary echo today shows stable cardiac function Status: Acute (3) Coronary artery disease: Problem details: dual antiplatelet for life (both neurological and cardiogenic reasons) Status: Acute (4) Antiplatelet or antithrombotic long-term use: Problem details: Hold Plavix. Continue aspirin pending surgical plan Status: Acute (5) Sepsis: Problem details: CCU status for managing sepsis and cardiac problems Status: Acute (6) Acute respiratory failure with hypoxia: Status: Acute (7) Elevated troponin I measurement: Problem details: Likely due to sepsis with underlying coronary disease Status: Acute (8) Pacemaker: Status: Acute (9) Delirium: Problem details: Patient has progressed from anxiety to delirium Status: Acute (10) Anxiety: Problem details: Chronic Status: Acute (11) Atrial fibrillation with rapid ventricular response: Problem details: Initiate rate control. Anticoagulation will depend on plan for surgery Status: Acute Plan Continue to coordinate with surgery and manage sepsis, acute cholecystitis, atrial fibrillation with rapid ventricular response, delirium. Time Spent With Patient Total time spent: Total time spent is 100 minutes in critical care evaluation management today Subjective Date Seen: 03/15/22 Interval history: 86-year-old male seen in followup of hospitalization for sepsis due to acute cholecystitis. See admission notes for details. Brief summary is that the patient had fallen a couple days ago. Paramedics went to help him get up and the time was felt that he was doing well okay so he was left at home. Yesterday he was profoundly weak and his knew there was something wrong so called 911 to transport him to the hospital. There he was found to have elevated bilirubin abdominal pain abnormal imaging on CT and ultrasound involving the gallbladder. This showed a large obstructing stone at the neck of the gallbladder and marked gallbladder wall thickening. It was felt that he had sepsis due to his acute cholecystitis. He is given fluids and IV antibiotics. He had some improvement overnight. He did not require pressors. He did require all small amount of nasal cannula oxygen up to 2 L per nasal cannula. He has been quite anxious which patient and his family both report is normal for him. He had positive blood cultures this morning with Gram-positive cocci. In addition to ertapenem he was put on vancomycin pending cultures. He has a penicillin allergy which involves fairly severe whole-body raised red rash according to his . Attempts last night and today to transfer him for critical care and percutaneous drainage of his gallbladder have been unsuccessful. This afternoon he went into atrial fibrillation with rapid ventricular response. Currently working on obtaining rate control for that. This afternoon he also became much more agitated suggesting now developing not just anxiety but delirium. Family reports hospital-acquired delirium is been a problem in the past. Son thought that he responded to Seroquel in the past. Exam Narrative: Exam Narrative: He is anxious but otherwise appears in no distress. He is quite hard of hearing in his speech is somewhat soft. He is oriented to his circumstances. He has mi ld scleral icterus and mild jaundice. Respirations are clear to auscultation. Cardiovascular: S1, S2, regular rate and rhythm. No murmur gallop or rub. Abdomen: Bowel sounds are present. Abdomen is soft with mild right upper quadrant tenderness I do not palpate a mass. Extremities without edema. Later repeat examination showed his heart to be irregularly irregular with tachycardia. Const: Vital Signs, click to edit/add: Vital Signs - 24 hr 03/14/22 16:13 03/14/22 17:08 03/14/22 16:29 Temperature Pulse Rate Pulse Rate [Apical ] Pulse Rate [Right Pulse Oximeter] 74 64 Respiratory Rate 24 Blood Pressure Blood Pressure [Le ft Upper Arm] 109/64 100/56 L Blood Pressure [Ri ght Arm] Pulse Oximetry 96 97 96 Oxygen Delivery Me thod Room Air Nasal Cannula Nasal Cannula Oxygen Flow Rate 2.5 2.5 03/14/22 17:08 03/14/22 17:52 03/14/22 18:53 Temperature 97.5 F L Pulse Rate 69 Pulse Rate [Apical ] Pulse Rate [Right Pulse Oximeter] 65 Respiratory Rate 15 Blood Pressure 91/62 Blood Pressure [Le ft Upper Arm] 101/59 L Blood Pressure [Ri ght Arm] Pulse Oximetry 96 97 Oxygen Delivery Me thod Nasal Cannula Nasal Cannula Oxygen Flow Rate 2.5 2.5 03/14/22 18:02 03/14/22 18:34 03/14/22 19:01 Temperature Pulse Rate 73 65 Pulse Rate [Apical ] Pulse Rate [Right Pulse Oximeter] Respiratory Rate Blood Pressure 96/61 101/59 L 103/59 L Blood Pressure [Le ft Upper Arm] Blood Pressure [Ri ght Arm] Pulse Oximetry 87 L 97 95 Oxygen Delivery Me thod Oxygen Flow Rate 03/14/22 19:31 03/14/22 20:02 03/14/22 20:31 Temperature Pulse Rate 65 64 63 Pulse Rate [Apical ] Pulse Rate [Right Pulse Oximeter] Respiratory Rate Blood Pressure 102/68 112/69 90/47 L Blood Pressure [Le ft Upper Arm] Blood Pressure [Ri ght Arm] Pulse Oximetry 96 96 94 Oxygen Delivery Me thod Oxygen Flow Rate 03/14/22 21:02 03/14/22 21:45 03/14/22 23:08 Temperature 98.0 F Pulse Rate 62 Pulse Rate [Apical ] 76 Pulse Rate [Right Pulse Oximeter] Respiratory Rate 24 24 Blood Pressure 97/49 L Blood Pressure [Le ft Upper Arm] Blood Pressure [Ri ght Arm] 125/66 Pulse Oximetry 98 96 Oxygen Delivery Me thod Nasal Cannula Nasal Cannula Oxygen Flow Rate 1 1 03/14/22 23:08 03/14/22 23:10 03/14/22 23:49 Temperature Pulse Rate 75 Pulse Rate [Apical ] 72 Pulse Rate [Right Pulse Oximeter] Respiratory Rate 24 Blood Pressure Blood Pressure [Le ft Upper Arm] Blood Pressure [Ri ght Arm] 128/68 Pulse Oximetry 95 88 Oxygen Delivery Me thod Nasal Cannula Nasal Cannula Oxygen Flow Rate 1 1 03/14/22 23:49 03/15/22 01:00 03/15/22 01:31 Temperature Pulse Rate Pulse Rate [Apical ] 83 81 Pulse Rate [Right Pulse Oximeter] Respiratory Rate 20 Blood Pressure Blood Pressure [Le ft Upper Arm] Blood Pressure [Ri ght Arm] 119/62 112/57 L Pulse Oximetry 96 94 94 Oxygen Delivery Me thod Nasal Cannula Nasal Cannula Nasal Cannula Oxygen Flow Rate 2 2 2 03/15/22 02:05 03/15/22 03:03 03/15/22 03:42 Temperature 100.3 F H 99.1 F Pulse Rate 71 Pulse Rate [Apical ] 91 89 Pulse Rate [Right Pulse Oximeter] Respiratory Rate 24 20 Blood Pressure Blood Pressure [Le ft Upper Arm] Blood Pressure [Ri ght Arm] 117/63 103/57 L Pulse Oximetry 95 92 Oxygen Delivery Me thod Nasal Cannula Nasal Cannula Oxygen Flow Rate 2 2 03/15/22 04:11 03/15/22 05:04 03/15/22 05:34 Temperature 97.9 F 98.3 F Pulse Rate Pulse Rate [Apical ] 66 66 Pulse Rate [Right Pulse Oximeter] Respiratory Rate 20 24 Blood Pressure Blood Pressure [Le ft Upper Arm] Blood Pressure [Ri ght Arm] 116/60 105/62 105/62 Pulse Oximetry 96 94 Oxygen Delivery Me thod Nasal Cannula Nasal Cannula Oxygen Flow Rate 2 2 03/15/22 06:10 03/15/22 07:40 03/15/22 07:40 Temperature 97.6 F 97.4 F L Pulse Rate Pulse Rate [Apical ] 77 95 Pulse Rate [Right Pulse Oximeter] Respiratory Rate 24 20 Blood Pressure Blood Pressure [Le ft Upper Arm] Blood Pressure [Ri ght Arm] 112/60 97/67 Pulse Oximetry 98 97 97 Oxygen Delivery Me thod Nasal Cannula Nasal Cannula Nasal Cannula Oxygen Flow Rate 2 0.5 0.5 03/15/22 07:12 03/15/22 08:00 03/15/22 11:12 Temperature 99.2 F Pulse Rate 76 Pulse Rate [Apical ] 77 92 Pulse Rate [Right Pulse Oximeter] Respiratory Rate 18 Blood Pressure Blood Pressure [Le ft Upper Arm] Blood Pressure [Ri ght Arm] 104/76 142/69 H Pulse Oximetry 95 Oxygen Delivery Me thod Nasal Cannula Oxygen Flow Rate 0.5 Documenting provider has reviewed patient's vital signs: yes Labs Labs: Laboratory Results - last 24 hr 03/14/22 03/14/22 03/14/22 16:07 16:07 16:07 WBC 14.71 H RBC 4.26 L Hgb 12.1 L Hct 36.7 L MCV 86 MCH 28 MCHC 33 RDW Coeff of Kady 15.2 Plt Count 162 Neut % (Auto) 84.3 H Lymph % (Auto) 4.6 L Marshall % (Auto) 10.7 Eos % (Auto) 0.0 Baso % (Auto) 0.1 Neut # (Auto) 12.40 H Lymph # (Auto) 0.70 L Marshall # (Auto) 1.60 H Eos # (Auto) 0.00 Baso # (Auto) 0.00 Abs Immat Gran (auto) 0.04 INR VBG pH VBG pCO2 VBG pO2 VBG HCO3 Sodium 133 L Potassium 4.2 Chloride 102 Carbon Dioxide 24 BUN 33 H Creatinine 1.1 Estimated Creat Clear 43.48 Estimated GFR 66 Glucose 140 H Lactate Venous Lactic Acid (Serial Order) Calcium 8.4 Ionized Calcium Berna Magnesium Total Bilirubin 4.1 H Direct Bilirubin 1.1 H GGT 45 AST 113 H ALT 54 H Alkaline Phosphatase 130 Troponin I 0.06 H* C-Reactive Protein 19.2 H NT-Pro-B Natriuret Pep 3580 H Total Protein 5.9 L Albumin 3.3 Lipase 25 Urine Color Urine Appearance Urine pH Ur Specific [place] Urine Protein Urine Glucose (UA) Urine Ketones Urine Blood Urine Nitrite Urine Bilirubin Urine Urobilinogen Ur Leukocyte Esterase Urine RBC Urine WBC Ur Squamous Epith Cells Urine Bacteria SARS-CoV-2 (PCR) 03/14/22 03/14/22 03/14/22 16:10 16:15 16:57 WBC RBC Hgb Hct MCV MCH MCHC RDW Coeff of Kady Plt Count Neut % (Auto) Lymph % (Auto) Marshall % (Auto) Eos % (Auto) Baso % (Auto) Neut # (Auto) Lymph # (Auto) Marshall # (Auto) Eos # (Auto) Baso # (Auto) Abs Immat Gran (auto) INR VBG pH 7.409 VBG pCO2 40 VBG pO2 46.8 VBG HCO3 26 Sodium Potassium Chloride Carbon Dioxide BUN Creatinine Estimated Creat Clear Estimated GFR Glucose Lactate Venous Lactic Acid (Serial Order) Calcium Ionized Calcium Berna Magnesium Total Bilirubin Direct Bilirubin GGT AST ALT Alkaline Phosphatase Troponin I C-Reactive Protein NT-Pro-B Natriuret Pep Total Protein Albumin Lipase Urine Color [place] A Urine Appearance Clear Urine pH 5.5 Ur Specific [place] 1.020 Urine Protein 2+ A Urine Glucose (UA) Negative Urine Ketones Negative Urine Blood Trace-lysed A Urine Nitrite Positive A Urine Bilirubin 1+ A Urine Urobilinogen 1.0 Ur Leukocyte Esterase Negative Urine RBC 0-2 Urine WBC 2-5 Ur Squamous Epith Cells Moderate A Urine Bacteria Few A SARS-CoV-2 (PCR) Negative SARS-CoV-2 0903/14/22 03/14/22 22:55 22:55 22:55 WBC RBC Hgb Hct MCV MCH MCHC RDW Coeff of Kady Plt Count Neut % (Auto) Lymph % (Auto) Marshall % (Auto) Eos % (Auto) Baso % (Auto) Neut # (Auto) Lymph # (Auto) Marshall # (Auto) Eos # (Auto) Baso # (Auto) Abs Immat Gran (auto) INR 1.30 H VBG pH VBG pCO2 VBG pO2 VBG HCO3 Sodium 134 L Potassium 4.3 Chloride 100 Carbon Dioxide 27 BUN 28 Creatinine 0.9 Estimated Creat Clear 51.41 Estimated GFR 84 Glucose 112 Lactate 1.2 Venous Lactic Acid (Serial Order) Calcium 8.4 Ionized Calcium Berna Magnesium Total Bilirubin 4.4 H Direct Bilirubin GGT AST 80 H ALT 55 H Alkaline Phosphatase 128 Troponin I 0.05 H C-Reactive Protein NT-Pro-B Natriuret Pep Total Protein 5.9 L Albumin 3.3 Lipase Urine Color Urine Appearance Urine pH Ur Specific [place] Urine Protein Urine Glucose (UA) Urine Ketones Urine Blood Urine Nitrite Urine Bilirubin Urine Urobilinogen Ur Leukocyte Esterase Urine RBC Urine WBC Ur Squamous Epith Cells Urine Bacteria SARS-CoV-2 (PCR) 03/15/22 03/15/22 03/15/22 06:54 06:54 06:54 WBC 13.94 H RBC 4.09 L Hgb 11.5 L Hct 35.3 L MCV 86 MCH 28 MCHC 33 RDW Coeff of Kady Plt Count 180 Neut % (Auto) Lymph % (Auto) Marshall % (Auto) Eos % (Auto) Baso % (Auto) Neut # (Auto) Lymph # (Auto) Marshall # (Auto) Eos # (Auto) Baso # (Auto) Abs Immat Gran (auto) INR 1.39 H VBG pH VBG pCO2 VBG pO2 VBG HCO3 Sodium 134 L Potassium 4.0 Chloride 105 Carbon Dioxide 23 BUN 23 Creatinine 0.8 Estimated Creat Clear 51.41 Estimated GFR 87 Glucose 102 Lactate Venous Lactic Acid (Serial Order) Calcium 8.2 L Ionized Calcium Berna Magnesium 1.9 Total Bilirubin 3.2 H Direct Bilirubin 1.1 H GGT 41 AST 52 H ALT 45 Alkaline Phosphatase 126 Troponin I 0.05 H C-Reactive Protein 22.6 H NT-Pro-B Natriuret Pep 4400 H Total Protein 5.4 L Albumin 2.9 L Lipase 15 L Urine Color Urine Appearance Urine pH Ur Specific [place] Urine Protein Urine Glucose (UA) Urine Ketones Urine Blood Urine Nitrite Urine Bilirubin Urine Urobilinogen Ur Leukocyte Esterase Urine RBC Urine WBC Ur Squamous Epith Cells Urine Bacteria SARS-CoV-2 (PCR) 03/15/22 06:54 WBC RBC Hgb Hct MCV MCH MCHC RDW Coeff of Kady Plt Count Neut % (Auto) Lymph % (Auto) Marshall % (Auto) Eos % (Auto) Baso % (Auto) Neut # (Auto) Lymph # (Auto) Marshall # (Auto) Eos # (Auto) Baso # (Auto) Abs Immat Gran (auto) INR VBG pH 7.469 H VBG pCO2 33 L VBG pO2 68.9 H VBG HCO3 24 Sodium Potassium Chloride Carbon Dioxide BUN Creatinine Estimated Creat Clear Estimated GFR Glucose Lactate 0.7 Venous Lactic Acid (Serial Order) Calcium Ionized Calcium Berna 1.13 Magnesium Total Bilirubin Direct Bilirubin GGT AST ALT Alkaline Phosphatase Troponin I C-Reactive Protein NT-Pro-B Natriuret Pep Total Protein Albumin Lipase Urine Color Urine Appearance Urine pH Ur Specific [place] Urine Protein Urine Glucose (UA) Urine Ketones Urine Blood Urine Nitrite Urine Bilirubin Urine Urobilinogen Ur Leukocyte Esterase Urine RBC Urine WBC Ur Squamous Epith Cells Urine Bacteria SARS-CoV-2 (PCR)
[2022-03-15] MEDS: LACTATED RINGERS 1000 ML 1,000 ML 125 ML IV (16:29)
[2022-03-15] MEDS: OLANZapine 5 MG/ML inj IVP (16:57)
[2022-03-15] MEDS: HYDROmorphone 0.5 mg/0.5 ml inj IVP (20:00)
[2022-03-15] MEDS: ADENOSINE 6 MG/2ML INJ IVP ×2 (20:02→20:05)
[2022-03-15] MEDS: ADENOSINE 6 MG/2ML INJ 12 MG IVP (20:07)
--- NOTE | 2022-03-15 20:25 | W.PM.CROSSCO ---
Subjective Subjective Time Seen by Provider: 20:25 Date Seen: 03/15/22 Principal diagnosis: SVT Interval history: Critical care note: Called to the room with a SVT like rhythm at approximately 7:45 p.m. Patient is delirious, mumbling. However otherwise vitally stable. Blood pressure is 130s and 140s systolic. Pulse 180s. Pulse ox 90% on room air Narrow complex tachycardia noted on telemetry. Second IV was started, response initiated. ER doc and myself attended to the patient. We put a call out to EMERGENCY ROOM PHYSICIAN ASSISTANT. We had the dry house operator draw up 5 mg of IV Lopressor and 0.5 mg of Dilaudid. Both were given IV between 750 and 8:00 p.m.. We then placed the pads at approximately 7:54 p.m. we pushed 6 mg, 6 mg and then 12 mg of adenosine. This was not effective at slowing his rate. We placed oxygen at 10 L by mask. He remained stable. However, given his background coronary artery disease, cardiomyopathy, advanced age, bacteremia and acute cholecystitis - we felt immediate cardioversion was necessary. I got informed consent, from his Mary Ann. She understood verbally consented to the need to treat his unsustainable tachycardia in the 180s. 70 mg of propofol was then given by IV push. Relaxed and became unresponsive. Synchronized cardioversion at 150 joules x1 was delivered. Patient immediately returned to a normal sinus rhythm in the 70s and 80s. His airway was supported with mask and head tilt chin lift with RT at the bedside. EKG after cardioversion showed his atrially paced rhythm with no ST elevation or depression. His blood pressure was a little soft at 90s over 50. This was felt to be secondary to his recent propofol and cardioversion. Family was bedside throughout this intervention. They were updated. The accepting facility, [facility]; [place], [place], was updated and accepted care. We felt air transport was necessary given his need for cardioversion and underlying acute and chronic health issues. Medications administered under my supervision: IV Lopressor, IV Dilaudid, IV Adenocard x3 doses, IV propofol. Procedures completed under my supervision: adenocard protocol; cardioversion. EMERGENCY ROOM PHYSICIAN ASSISTANT, RT, ED, med surge nursing staff, dry house operator all did an excellent job taking care of this patient and supporting him and the family. Total critical care time was approximately 45 minutes.
--- NOTE | 2022-03-15 20:51 | PC.NURSE ---
At 1630 calls made creative writer made calls to [facility], [facility], [facility], [facility], [facility], [facility], [facility], [facility], [facility]Note 3], [facility], [place]- Ilan Velázquez, [facility] Ilan VEL[place]ZQUEZ, [facility] [place], [facility], [facility], [facility], [facility]. No beds available at times of calls. Dr. Cueto aware. At 2030 [facility] returned call and have accepted patient for transport. Family present, aware of plan.
--- NOTE | 2022-03-15 21:59 | P.DS_ITS ---
DS: Providers Provider Date Seen: 03/15/22 Date of admission: 03/14/22 21:38 Primary care physician: Not a Local Provider Admitting Clinician: Whit Cueto MD Consults: 03/14/22 21:47 Consult to Occupational Therapy [CONS] Routine Comment: Reason(s) for OT Consult:: Evaluate and Treat Any Restrictions?:: No Restrictions Consult to Physical Therapy [CONS] Routine Comment: Reason(s) for PT Consult:: Evaluate and Treat Any Restrictions?:: No Restrictions Consult to Respiratory Therapy [CONS] Routine Comment: Reason(s) for RT Consult:: Consult Comment: hypoxia; sepsis; cholangitis Consult to [employer] [CONS] Routine Comment: Reason for Consult:: Social Service Consult 03/14/22 23:13 Consult to Occupational Therapy [CONS] Routine Comment: Reason(s) for OT Consult:: Evaluate and Treat Any Restrictions?:: No Restrictions Consult to Physical Therapy [CONS] Routine Comment: Reason(s) for PT Consult:: Evaluate and Treat Any Restrictions?:: No Restrictions Attending Physician on discharge: Whit Cueto MD Date of Discharge: 03/15/22 DS: Diagnosis Discharge Diagnosis (1) Acute on chronic cholecystitis: Status: Acute Problem details: Optimal care would involve transfer for percutaneous drainage of his gallbladder. This is currently not available. Consult General surgery. Continue broad-spectrum antibiotics pending culture. NPO and IV fluids. Manage sepsis. (2) Elevated troponin I measurement: Status: Acute Problem details: Likely due to sepsis with underlying coronary disease (3) Sepsis: Status: Acute Problem details: CCU status for managing sepsis and cardiac problems (4) Cardiomyopathy: Status: Acute Problem details: ischemic cardiomyopathy and prior inferior wall myocardial infarction years ago. His left ventricular systolic function has been mildly reduced over the years with an estimated systolic ejection fraction of 40-45%. s/p Stents and Pacemaker; h/o of cardiac arrest in 1997 and 2011. Preliminary echo today shows stable cardiac function (5) Delirium: Status: Acute Problem details: Patient has progressed from anxiety to delirium (6) SVT (supraventricular tachycardia): Status: Acute DS: Summary Hospital Course Hospital Course: HOSPITALIST TRANSFER SUMMARY ATTENDING PHYSICIAN: Whit Cueto MD FINAL DIAGNOSIS: SVT, STATUS POST ADENOCARD AND SYNCHRONIZED CARDIOVERSION BACTEREMIA, GRAM-POSITIVE ACUTE CHOLANGITIS CARDIOMYOPATHY HOSPITAL FOLLOWUP ISSUES: PER ACCEPTING HOSPITAL BRIEF HOSPITAL COURSE: Joe was admitted last evening septic with acute cholecystitis. His pressures were soft initially. He had a elevated direct bilirubin. We attempted to transfer from the emergency room, however this was unsuccessful. His blood cultures turned positive for Gram-positive cocci overnight. He has been in a delirium since admission. Tunnel surgery consulted. Given his current medical status and history of cardiomyopathy with stent placement we felt to percutaneous drainage of the gallbladder with IR and a surgical ICU available for possible cholecystectomy he should be transferred. In the midst of attempting to transfer the patient went into acute SVT with a heart rate in the 180s. Narrow complex tachycardia was noted. Adenocard was ineffective. He required synchronized cardioversion. This was successful. He remained delirious with a soft blood pressure. At the end of on 03/15 22 I had an [facility] see to represent [facility], excepting care of him. He was flown to their care. VITAL SIGN, MEDICATION, LAB/MICRO, IMAGING SUMMARY (full details available in account tabs or by records request) PHYSICAL EXAM: CONSTITUTIONAL: moaning; incoherent. VITAL SIGNS: see record. HEENT: Normocephalic, atraumatic. PERRL, EOMI, conjunctivae pink, no scleral icterus. dry mucus membranes. NECK: No JVD. No carotid bruit, no thyromegaly, no adenopathy. CHEST: Clear to auscultation bilaterally. HEART: S1 and S2 normal. minimal edema ABDOMEN: soft; tender in the right upper quadrant. MUSCULOSKELETAL: No gross joint deformity or swelling. NEURO: Cranial nerves intact. Grossly intact. No asymmetric findings. SKIN: No rashes, petechiae, concerning changes PSYCHIATRIC: Mood euthymic. DISPOSITION: TRANSFER TO TERTIARY CARE VIA AIR AMBULANCE Time spent on discharge 37 minutes. Status at Discharge Functional status at discharge: bed bound Overall status at discharge: patient is not back to baseline Time Spent with Patient Time attestation: Total time spent providing and/or coordinating discharge services: Time spent: Greater than 30 minutes Exam Const: Vital Signs, click to edit/add: Vital Signs - 24 hr 03/14/22 23:08 03/14/22 23:08 03/14/22 23:10 Temperature Pulse Rate 75 Pulse Rate [Apical ] 72 Respiratory Rate 24 24 Blood Pressure [Ri ght Arm] 128/68 Pulse Oximetry 96 95 Oxygen Delivery Me thod Nasal Cannula Nasal Cannula Oxygen Flow Rate 1 1 03/14/22 23:49 03/14/22 23:49 03/15/22 01:00 Temperature Pulse Rate Pulse Rate [Apical ] 83 Respiratory Rate 20 Blood Pressure [Ri ght Arm] 119/62 Pulse Oximetry 88 96 94 Oxygen Delivery Me thod Nasal Cannula Nasal Cannula Nasal Cannula Oxygen Flow Rate 1 2 2 03/15/22 01:31 03/15/22 02:05 03/15/22 03:03 Temperature 100.3 F H 99.1 F Pulse Rate Pulse Rate [Apical ] 81 91 89 Respiratory Rate 24 20 Blood Pressure [Hi ght Arm] 112/57 L 117/63 103/57 L Pulse Oximetry 94 95 92 Oxygen Delivery Me thod Nasal Cannula Nasal Cannula Nasal Cannula Oxygen Flow Rate 2 2 2 03/15/22 03:42 03/15/22 04:11 03/15/22 05:04 Temperature 97.9 F 98.3 F Pulse Rate 71 Pulse Rate [Apical ] 66 66 Respiratory Rate 20 24 Blood Pressure [Hi ght Arm] 116/60 105/62 Pulse Oximetry 96 94 Oxygen Delivery Me thod Nasal Cannula Nasal Cannula Oxygen Flow Rate 2 2 03/15/22 05:34 03/15/22 06:10 03/15/22 07:40 Temperature 97.6 F Pulse Rate Pulse Rate [Apical ] 77 Respiratory Rate 24 Blood Pressure [Hi ght Arm] 105/62 112/60 Pulse Oximetry 98 97 Oxygen Delivery Me thod Nasal Cannula Nasal Cannula Oxygen Flow Rate 2 0.5 03/15/22 07:40 03/15/22 07:12 03/15/22 08:00 Temperature 97.4 F L Pulse Rate 76 Pulse Rate [Apical ] 95 77 Respiratory Rate 20 Blood Pressure [Hi ght Arm] 97/67 104/76 Pulse Oximetry 97 Oxygen Delivery Me thod Nasal Cannula Oxygen Flow Rate 0.5 03/15/22 11:12 03/15/22 15:30 03/15/22 14:15 Temperature 99.2 F 100.8 F H Pulse Rate Pulse Rate [Apical ] 92 110 H 116 H Respiratory Rate 18 24 Blood Pressure [Ri ght Arm] 142/69 H 170/85 H 146/83 H Pulse Oximetry 95 92 Oxygen Delivery Me thod Nasal Cannula Room Air Oxygen Flow Rate 0.5 03/15/22 15:30 03/15/22 18:24 03/15/22 17:21 Temperature 99.2 F Pulse Rate 90 Pulse Rate [Apical ] Respiratory Rate Blood Pressure [Ri ght Arm] Pulse Oximetry 92 Oxygen Delivery Me thod Room Air Oxygen Flow Rate DS: Data Data Completed and Pending Labs on day of discharge: Labs from last 24 hours 03/15/22 03/15/22 03/15/22 06:54 06:54 06:54 WBC RBC Hgb Hct MCV MCH MCHC Plt Count INR 1.39 H VBG pH 7.469 H VBG pCO2 33 L VBG pO2 68.9 H VBG HCO3 24 Sodium 134 L Potassium 4.0 Chloride 105 Carbon Dioxide 23 BUN 23 Creatinine 0.8 Estimated Creat Clear 51.41 Estimated GFR 87 Glucose 102 Lactate 0.7 Calcium 8.2 L Ionized Calcium Berna 1.13 Magnesium 1.9 Total Bilirubin 3.2 H Direct Bilirubin 1.1 H GGT 41 AST 52 H ALT 45 Alkaline Phosphatase 126 Troponin I 0.05 H C-Reactive Protein 22.6 H NT-Pro-B Natriuret Pep 4400 H Total Protein 5.4 L Albumin 2.9 L Lipase 15 L 03/15/22 03/14/22 03/14/22 06:54 22:55 22:55 WBC 13.94 H RBC 4.09 L Hgb 11.5 L Hct 35.3 L MCV 86 MCH 28 MCHC 33 Plt Count 180 INR VBG pH VBG pCO2 VBG pO2 VBG HCO3 Sodium 134 L Potassium 4.3 Chloride 100 Carbon Dioxide 27 BUN 28 Creatinine 0.9 Estimated Creat Clear 51.41 Estimated GFR 84 Glucose 112 Lactate 1.2 Calcium 8.4 Ionized Calcium Berna Magnesium Total Bilirubin 4.4 H Direct Bilirubin GGT AST 80 H ALT 55 H Alkaline Phosphatase 128 Troponin I 0.05 H C-Reactive Protein NT-Pro-B Natriuret Pep Total Protein 5.9 L Albumin 3.3 Lipase 03/14/22 03/14/22 22:55 16:07 WBC RBC Hgb Hct MCV MCH MCHC Plt Count INR 1.30 H VBG pH VBG pCO2 VBG pO2 VBG HCO3 Sodium Potassium Chloride Carbon Dioxide BUN Creatinine Estimated Creat Clear Estimated GFR Glucose Lactate Calcium Ionized Calcium Berna Magnesium Total Bilirubin Direct Bilirubin GGT 45 AST ALT Alkaline Phosphatase Troponin I C-Reactive Protein NT-Pro-B Natriuret Pep Total Protein Albumin Lipase 25 Preliminary micro results at discharge 03/14/22 16:57 Urine Culture - Preliminary Urine,Clean Catch NO GROWTH AFTER 24 HOURS 03/14/22 16:15 Blood Culture - Preliminary Blood Gram positive cocci 03/14/22 16:07 Blood Culture - Preliminary Blood Gram positive cocci Discharge Plan Discharge Disposition: Xfer Other Date of Admission: 03/14/22 21:38 Attending Provider on Discharge: Whit Cueto Primary Care Provider: Provider,Not a Local Condition: Improved Discharge Medications: Continued atorvastatin 40 mg tablet 40 mg PO NIGHTLY Label Comments: TAKE 1 TABLET BY MOUTH EVERY DAY oxybutynin chloride 10 mg tablet extended release 24hr 10 mg PO DAILY Label Comments: TAKE 1 TABLET BY MOUTH EVERY DAY amlodipine 2.5 mg tablet 2.5 mg PO DAILY Label Comments: TAKE 1 TABLET BY MOUTH ONCE DAILY. tramadol 50 mg tablet 50 mg PO BID PRN (Reason: pain) Label Comments: TAKE 1 TABLET (50 MG) BY MOUTH 2 TIMES DAILY IF NEEDED FOR PAIN. ropinirole 0.25 mg tablet 0.25 mg PO TID Label Comments: TAKE 1 TABLET (0.25 MG) BY MOUTH 3 TIMES DAILY. pantoprazole 40 mg tablet,delayed release (DR/EC) 40 mg PO DAILY Label Comments: TAKE 1 TABLET BY MOUTH EVERY DAY gabapentin 300 mg capsule 600 mg PO TID Label Comments: TAKE 2 CAPSULES BY MOUTH 3 TIMES DAILY. metoprolol succinate 25 mg tablet extended release 24 hr 25 mg PO DAILY Label Comments: TAKE 1 TABLET BY MOUTH EVERY DAY clopidogrel 75 mg tablet 75 mg PO DAILY Label Comments: TAKE 1 TABLET BY MOUTH EVERY DAY aspirin [Aspirin Childrens] 81 mg tablet,chewable 81 mg PO DAILY tamsulosin 0.4 mg capsule 0.4 mg PO DAILY Label Comments: TAKE 1 CAPSULE (0.4 MG) BY MOUTH ONCE DAILY AFTER A MEAL. sennosides [Winnie-snehal] 8.6 mg tablet 8.6 mg PO DAILY Discharge Orders: Discharge Order (Routine); Ordered 03/15/22 Ordered By: Whit Cueto Follow Up Appointments: Provider,Not a Local [Primary Care Provider] - Forms: [employer] Info Instructions Hospital Course: HOSPITALIST TRANSFER SUMMARY ATTENDING PHYSICIAN: Whit Cueto MD FINAL DIAGNOSIS: SVT, STATUS POST ADENOCARD AND SYNCHRONIZED CARDIOVERSION BACTEREMIA, GRAM-POSITIVE ACUTE CHOLANGITIS CARDIOMYOPATHY HOSPITAL FOLLOWUP ISSUES: PER ACCEPTING HOSPITAL BRIEF HOSPITAL COURSE: Joe was admitted last evening septic with acute cholecystitis. His pressures were soft initially. He had a elevated direct bilirubin. We attempted to transfer from the emergency room, however this was unsuccessful. His blood cultures turned positive for Gram-positive cocci overnight. He has been in a delirium since admission. Tunnel surgery consulted. Given his current medical status and history of cardiomyopathy with stent placement we felt to percutaneous drainage of the gallbladder with IR and a surgical ICU available for possible cholecystectomy he should be transferred. In the midst of attempting to transfer the patient went into acute SVT with a heart rate in the 180s. Narrow complex tachycardia was noted. Adenocard was ineffective. He required synchronized cardioversion. This was successful. He remained delirious with a soft blood pressure. At the end of on 03/15 22 I [facility] except[facility] of him. He was flown to their care. VITAL SIGN, MEDICATION, LAB/MICRO, IMAGING SUMMARY (full details available in account tabs or by records request) PHYSICAL EXAM: CONSTITUTIONAL: moaning; incoherent. VITAL SIGNS: see record. HEENT: Normocephalic, atraumatic. PERRL, EOMI, conjunctivae pink, no scleral icterus. dry mucus membranes. NECK: No JVD. No carotid bruit, no thyromegaly, no adenopathy. CHEST: Clear to auscultation bilaterally. HEART: S1 and S2 normal. minimal edema ABDOMEN: soft; tender in the right upper quadrant. MUSCULOSKELETAL: No gross joint deformity or swelling. NEURO: Cranial nerves intact. Grossly intact. No asymmetric findings. SKIN: No rashes, petechiae, concerning changes PSYCHIATRIC: Mood euthymic. DISPOSITION: TRANSFER TO TERTIARY CARE VIA AIR AMBULANCE Time spent on discharge 37 minutes. Discharge Comments: NOT DISCHARGED; TRANSFERRED
--- NOTE | 2022-03-16 00:21 | PC.NURSE ---
[id number] VS and assessment done. Stepped out of room and TELE monitor goes off. Pt in what monitor called V-tack. MD notified, crash cart brought to room. Family in room and explained to them what was happening. MD also ecplained. Meds given per MD order Pads on for shocking. At 2013 after 70mg of propofal was given pt was shocked with 150J and slowed to 70's initially and then stabilised in to upper 80's and low 90's. A bed was found at [facility] in [place], [place]. Family was told. Air crew arrived 2114. Report given to them. They left at 2129. Called [facility] and told them they left and expected a 2 flight. Family left to go to [place]. All belongings sent with family. Glasses and cell phone sent with pt in air ambulance.
== END 2022-03-15 23:00 | disposition short-term general hospital (02) | DRG 871 ==
LOC: ED 20:42 → MEDSURG 20:48
PROVIDERS: Family Medicine; Admitting Provider Family Medicine; Emergency Provider Family Medicine; Visit Provider Family Medicine
DX: A41.01 Sepsis due to Methicillin susceptible Staphylococcus aureus (principal); J96.01 Acute respiratory failure with hypoxia; K80.13 Calculus of gallbladder with acute and chronic cholecystitis with obstruction; K82.1 Hydrops of gallbladder; I47.1 Supraventricular tachycardia; K86.2 Cyst of pancreas; D84.9 Immunodeficiency, unspecified; F05 Delirium due to known physiological condition; K80.46 Calculus of bile duct with acute and chronic cholecystitis without obstruction; I25.5 Ischemic cardiomyopathy; I25.10 Atherosclerotic heart disease of native coronary artery without angina pectoris; N40.0 Benign prostatic hyperplasia without lower urinary tract symptoms; G89.29 Other chronic pain; K21.9 Gastro-esophageal reflux disease without esophagitis; I10 Essential (primary) hypertension; Z95.0 Presence of cardiac pacemaker; E78.5 Hyperlipidemia, unspecified; Z79.02 Long term (current) use of antithrombotics/antiplatelets; F41.9 Anxiety disorder, unspecified; I48.91 Unspecified atrial fibrillation; R65.20 Severe sepsis without septic shock; I25.2 Old myocardial infarction
CPT/HCPCS: 36415; 51701; 71045; 71260; 72131; 72192; 74177; 76705; 80053; 80076; 81001; 82248; 82330; 82803; 82977; 83605; 83690; 83735; 83880; 84484; 85025; 85027; 85610; 86140; 87040; 87086; 87186; 87635; 93005; 93306; 97161; 97165; 97530; 99285; A9270; J0153; J1170; J1335; J2060; J3370; J7120; Q9967; S0166

== ENCOUNTER 2022-04-18 16:55 | Outpatient (CLI) | payer MEDICARE, BC, SELFPAY ==
--- OUTSIDE RECORDS SUMMARY | 2022-06-07 20:51 | XMS_ITS | Clinical Summary ---
:1935 Author Organization [facility] [place] [address] Care Team Providers Name Role Phone Deirdre Bedolla MD Unavailable [phone] Yocasta Mckeon MD Primary Care Provider [facility] [place] Unavailable Allergies Active Allergy Reactions Severity Noted Date Comments Codeine *Unknown, Other - 10/31/2007 Describe In Comment Field Hydrocodone-Acetaminophe Confusion 07/04/2012 n Penicillins Rash, Agitation 10/07/2015 Other reacti on(s): rash Medications Medication Sig Dispensed Refills Start Date End Date Status sennosides (SENNA) Take 17.2 mg by 0 Active 8.6 mg tablet mouth once daily. gabapentin Take 2 Capsules 540 Capsule 3 07/17/2021 Active (NEURONTIN) 300 mg (600 mg) by mouth capsuleIndications: 3 times daily. Chronic midline low back pain with right-sided sciatica oxybutynin XL Take 1 Tablet (10 90 Tablet 3 07/17/2021 Active (DITROPAN XL) 10 mg mg) by mouth once CR tabletIndications: daily. Urinary frequency pantoprazole Take 1 Tablet (40 90 Tablet 3 07/17/2021 Active (PROTONIX) 40 mg mg) by mouth once delayed-release daily. tabletIndications: Gastroesophageal reflux disease, unspecified whether esophagitis present rOPINIRole (REQUIP) Take 1 Tablet 270 Tablet 3 07/17/2021 Active 0.25 mg (0.25 mg) by mouth tabletIndications: 3 times daily. Restless legs syndrome tamsulosin (FLOMAX) Take 1 Capsule 90 Capsule 3 07/17/2021 Active 0.4 mg (0.4 mg) by mouth capsuleIndications: once daily after a BPH with urinary meal. obstruction clopidogreL (PLAVIX) Take 75 mg by 90 tablet. 3 11/07/2021 Active 75 mg mouth once daily. tabletIndications: Atherosclerosis of inupiat coronary artery of inupiat heart without angina pectoris atorvastatin TAKE 1 TABLET BY 90 Tablet 3 01/16/2022 Active (LIPITOR) 40 mg MOUTH EVERY DAY tabletIndications: Hyperlipidemia, unspecified hyperlipidemia type acetaminophen Take 2 Tablets 0 04/17/2022 Active (TYLENOL EXTRA (1,000 mg) by STRGTH) 500 mg mouth every 6 tabletIndications: hours if needed AVF (arteriovenous (mild pain). Max fistula) (HC) acetaminophen dose: 4000mg in 24 hrs. amiodarone Take 1 Tablet (200 0 04/17/2022 Active (CORDARONE) 200 mg mg) by mouth once tabletIndications: daily. Ventricular tachycardia metoprolol succinate Take 2 Tablets (50 0 04/17/2022 Active (TOPROL XL) 25 mg mg) by mouth two Sustained-Release times daily. tabletIndications: Ischemic cardiomyopathy, Essential hypertension, Atherosclerosis of inupiat coronary artery of inupiat heart without angina pectoris apixaban (ELIQUIS) 5 Take 1 Tablet (5 0 04/17/2022 Active mg tabletIndications: mg) by mouth two deep venous times daily. thrombosis torsemide 40 mg Take 40 mg by 0 04/17/2022 Active tabIndications: Acute mouth two times HFrEF (heart failure daily. with reduced ejection fraction) (HC) magnesium chloride Take 2 Tablets by 0 04/17/2022 Active (MAG-DELAY) 64 mg mouth two times delayed release daily. tabletIndications: Hypomagnesemia melatonin 3 mg Take 1 Tablet (3 0 04/17/2022 Active tabletIndications: mg) by mouth at Insomnia, unspecified bedtime if needed, type may repeat once for Sleep. potassium chloride Take 1.5 Tablets 0 04/17/2022 Active (K-DUR) 20 mEq (30 mEq) by mouth Extended-Release two times daily tabletIndications: with meals. Hypokalemia QUEtiapine (SEROQUEL) Take 0.5 Tablets 0 04/17/2022 Active 25 mg (12.5 mg) by mouth tabletIndications: at bedtime if Delirium needed for Hallucinations. Active Problems Problem Noted Date Positive blood culture 04/10/2022 Positive blood culture 04/10/2022 Overview: 9.30.22 Eubacterium species Type 2 diabetes, diet controlled 03/27/2022 Recurrent ventricular tachycardia 03/27/2022 MSSA bacteremia 03/27/2022 Acute deep vein thrombosis (DVT) of right upper extrem ity related to PICC 03/27/2022 line Anemia 03/27/2022 Paroxysmal A-fib 03/27/2022 CAD (coronary artery disease) 03/27/2022 Ischemic cardiomyopathy 03/27/2022 Presence of cardiac pacemaker 03/27/2022 At risk for infection 03/27/2022 Overview: Risk infective endocarditis or pacer kang d infection Cystic Mass of right kidney 11/12/2021 Cardiogenic shock 07/17/2021 Adenomatous colon polyp 10/19/2020 Overview: Colonoscopy 10/2020 two polyps, repeat in 7 years Other hyperlipidemia 09/15/2020 Pancreatic cyst 09/14/2020 Overview: It is recommended that the cysts be imag ed again in September 2022 Urethral stricture 03/31/2018 Essential hypertension 03/26/2018 Chronic bilateral low back pain without sciatica 09/23 Atherosclerosis of coronary artery of inupiat heart wit hout angina pectoris 09/23/2017 Overview: Dr. Love in 08/2016 wrote in his note he was not sure if dual antiplatelet therapy was being continued for cardiac or neurological reasons but was well tolerated and he did not recommended stopping this. Dr. Hinton his Foot And Ankle Surgeon in [place] did not mention Plavix in his 10/2008 note. Joe had cardiac arrests in 1997 & 2011 Frequency of urination 10/24/2016 BPH with urinary obstruction 2016 Recurrent falls 09/05/2016 Imbalance 09/05/2016 Urinary retention 09/04/2016 Gastroesophageal reflux disease 08/29/2016 FERNANDA 07/10/2016 AHI-19 08/02/2016 Resolved Problems Problem Noted Date Resolved Date Nonischemic cardiomyopathy 03/27/2022 03/27/2022 Other specified coagulation defects 03/27/2018 03/ Chronic midline low back pain with bilateral sciatica 201603/27/2022 Overview: He has a Neurostimulator that was replac ed in 03/2017. 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 09/04/2016 Depressed mood 08/13/2016 04/24/2018 Type 2 diabetes mellitus without complication, without 06/0803/27/2022 long-term current use of insulin Encounters Date Type Specialty Care Team Description 04/13/2022 Anesthesia Event Chuy Redmond MD 03/28/2022 Orders Only Katie Armstrong, <No scans attached> PA 03/27/2022 - Hospital Encounter [facility], Anw MSSA bact eremia (Primary Dx); 04/17/2022 Hospitalists Of Ventricular tachycardia (HC); Margarito Washington, At risk for infection; DO Ischemic cardiomyopathy; Ines Howard, Coronar y artery disease, unspecified vessel or lesion type, unspecified whether angina present, unspecified whether inupiat or transplanted heart; AVF (arteriovenous fistula) (HC); Yasmani England Essential h ypertension; MD Silvio Atherosclerosis of inupiat coronary arter y of inupiat heart without angina pectoris; Dimitrios Gibson Acute deep v ein thrombosis (DVT) of brachial vein of right upper extremity (HC); MD Jesús Acute HFrEF (heart failure with reduced ejection fraction) (HC); Chato Raphaelagnjerrica semia; KERA Hudson Insomnia, unspe cified type; Hypokalemia; Delirium Discharge Summary - Yasmani England MD - 04/17/2022 8:35 AM CDT Images from the original not e were not included. HOSPITALIST DISCHARGE SUMMAR Y ? ? [facility] Admission Date: 03/27/2022 Discharge Date: 04/17/2022 Discharge Plan: Simon jones was discharged to transitional care unit. Principal Diagnosis Recurrent ventricular tachy cardia Hospital Problem List Principal Problem: Recurrent ventricular tachy cardia Active Problems: FERNANDA 07/10/2016 AHI-19 Gastroesophageal reflux dis ease BPH with urinary obstructio n Chronic bilateral low back pain without sciatica Essential hypertension Type 2 diabetes, diet contr olled (HC) MSSA bacteremia Acute deep vein thrombosis (DVT) of right upper extremity related to PICC line Anemia Paroxysmal A-fib (HC) CAD (coronary artery diseas e) Ischemic cardiomyopathy Presence of cardiac pacemak er At risk for infection Positive blood culture Positive blood culture ADDITIONAL COMMENTS REGARDIN G DIAGNOSIS SPECIFICITY Additional Diagnosis Informa tion BMI>30, which is consistent with OBESITY. This is clinically significant due to increased nursing cares, use of resources and specialty equipment. Hospital Course Simon Escobar is a 86 y.o. male with a history of CAD with prior stents, ischemic cardiomyopathy (EF 50-55%), hypertension, hyperlipidemia, paroxysmal A. Fib s/p PPM, RLS, BPH, chronic low back pain, among other diagnosis, who w as admitted to [facility] on 03/27/22 with recurrent ventricular tachycardia. On review, patient was hospi talized at [facility] in [place], [place] (lives in [place], [place], but no [facility] beds available) on 03/15 with sepsis due to cholecystitis. IR placed a percutaneous yani tube . Post procedure pt went to ICU and was intubated. Pt had V tach storm at that time. Angiogram on 03/20 with nonobstructive disease. EF 20-25% on 03/18 and improved to 50-55% on follow up DORYS on 03/20. Inamador mendosa started on IV amiodar one and transitioned to oral. 2 min episode of V tach 03/25 despite amiodarone and he was given further amiodarone and started on mexiletine (unclear when it was discontinued) . Ultimately transferred to [facility] on 03/27 for further management. OSH course also notable for MSSA bacteremia (bile culture also with MSSA), negative DORYS. Treated with cefazolin for 14 days (03/15 - 03/30) with repeat blood cultures remaining negative. He also was diagno sed with RUE DVT 03/22 for wh ich he was started on apixaban for 3 month total course. He did not have any further VT here. Initial plan per EP was for him to discharge with LifeVest however he was physically unable to manage this so after discussion with ID, EP and IM it was felt that be nefit of TRAY SETTER-D outweighed ri sk so he underwent upgrade 04/13 which went without issue. To continue on amiodarone and toprol XL as below. ID (Dr. Banks) consulted at [facility]. Had transient clinical worsening on 04/03, but no confirmed new or persistent infection. He was continued on cefazolin 04/03 - 04/05, but then antibiotics discontinued a gain. Febrile to 102.8 04/06 for which started on IV meropenem. 07/09 blood cultures grew Eubacterium limosum felt to be related to GB/biliary tree. Treated with meropenem until 04/16. ID recommends weekly blood cultures 04/20, 04/27 and 05/04 to ensure no further bacteremia. General Surgery reassessed yani tube no plan for surgical intervention at this time. Continue with routine yani tube cares and repeat cholangiogram scheduled 05/09. Other issues: - 04/03:rapid response for s evere upper abdominal pain, localizing to yani tube. CT a/p with IV contrast showed tube in appropriate position. Noted to have loose stools, but C.dif and stool multiplex P CR were negative. Pain later improved without intervention, the cause of it was never clear. - acute on chronic HFpEF: w eight on discharge 192 lb, suspect dry weight closer to 180-185 lb as this was his weight on admission though it may be even lower. He has quite a bit of dependent edema that was improving on d/c with a ddition of torsemide 40 mg twice daily. Recommend continuing this until closer to dry weight then reassess. K and Mg supplements as below. Recheck BMP in 3 days. Recommendations for Outpatie nt Provider ? ? PCP: Yocasta Mckeon MD Recommendations for outpati ent provider Specific recommendations to be addressed at the follow up visit: See d/c summary Medication regimen changes: see Hospital Course above. Follow-up labs/imaging: BMP in 3 days Other specialty follow-up no t included in DC orders: None Special considerations: none . Functional evaluations: Fall Risk: Total Score (If 5 or > is High Risk): 6 (04/16/222299) NuDESC (>/=2 abnormal): 0 ( 04/16/222299) MOCA: // SLUMS: Discharge Medications Your Home Medicines START taking these medicines Instructions amiodarone 200 mg tablet For diagnoses: Ventricular t achycardia Commonly known as: CORDARONE Take 1 Tablet (200 mg) by m outh once daily. apixaban 5 mg tablet For diagnoses: Acute deep ve in thrombosis (DVT) of brachial vein of right upper extremity (HC) Commonly known as: ELIQUIS Take 1 Tablet (5 mg) by arline th two times daily. magnesium chloride 64 mg del ayed release tablet For diagnoses: Hypomagnesemi a Commonly known as: MAG-DELAY Take 2 Tablets by mouth two times daily. melatonin 3 mg tablet For diagnoses: Insomnia, uns pecified type Take 1 Tablet (3 mg) by arline th at bedtime if needed, may repeat once for Sleep. potassium chloride 20 mEq Ex tended-Release tablet For diagnoses: Hypokalemia Commonly known as: K-DUR Take 1.5 Tablets (30 mEq) b y mouth two times daily with meals. QUEtiapine 25 mg tablet For diagnoses: Delirium Commonly known as: SEROQUEL Take 0.5 Tablets (12.5 mg) by mouth at bedtime if needed for Hallucinations. torsemide 40 mg Tab For diagnoses: Acute HFrEF ( heart failure with reduced ejection fraction) (HC) Take 40 mg by mouth two efren es daily. CHANGE how you take these me dicines Instructions acetaminophen 500 mg tablet For diagnoses: AVF (arteriov enous fistula) (HC) What changed: how much to ta ke Commonly known as: TYLENOL E XTRA STRGTH Take 2 Tablets (1,000 mg) b y mouth every 6 hours if needed (mild pain). Max acetaminophen dose: 4000mg in 24 hrs. metoprolol succinate 25 mg S ustained-Release tablet For diagnoses: Ischemic card iomyopathy, Essential hypertension, Atherosclerosis of inupiat coronary artery of inupiat heart without angina pectoris What changed: how much to take when to take this Commonly known as: TOPROL XL Take 2 Tablets (50 mg) by m outh two times daily. Doctor's comments: Due for jazzmine salcedo up in May CONTINUE taking these medici stephanie Instructions atorvastatin 40 mg tablet For diagnoses: Hyperlipidemi a, unspecified hyperlipidemia type Commonly known as: LIPITOR TAKE 1 TABLET BY MOUTH EVER Y DAY Doctor's comments: DX Code N eeded . clopidogreL 75 mg tablet For diagnoses: Atheroscleros is of inupiat coronary artery of inupiat heart without angina pectoris Commonly known as: PLAVIX Take 75 mg by mouth once da [place]. gabapentin 300 mg capsule For diagnoses: Chronic midli ne low back pain with right-sided sciatica Commonly known as: NEURONTIN Take 2 Capsules (600 mg) by mouth 3 times daily. Doctor's comments: .. oxybutynin XL 10 mg CR table t For diagnoses: Urinary frequ ency Commonly known as: DITROPAN XL Take 1 Tablet (10 mg) by mo ut once daily. Doctor's comments: DX Code N eeded . pantoprazole 40 mg delayed-r elease tablet For diagnoses: Gastroesophag eal reflux disease, unspecified whether esophagitis present Commonly known as: PROTONIX Take 1 Tablet (40 mg) by mo ut once daily. rOPINIRole 0.25 mg tablet For diagnoses: Restless legs syndrome Commonly known as: REQUIP Take 1 Tablet (0.25 mg) by mouth 3 times daily. sennosides 8.6 mg tablet Commonly known as: SENNA Take 17.2 mg by mouth once daily. tamsulosin 0.4 mg capsule For diagnoses: BPH with urin bettie obstruction Commonly known as: FLOMAX Take 1 Capsule (0.4 mg) by mouth once daily after a meal. STOP taking these medicines amLODIPine 2.5 mg tablet Commonly known as: NORVASC aspirin chewable 81 mg chewa ble tablet traMADoL 50 mg tablet Commonly known as: ULTRAM Where to get your medicines Prescriptions for these medi cines or supplies were NOT printed nor sent to your preferred pharmacy. Check with your doctor if you have questions. Check with your doctor if yo u have questions. acetaminophen 500 mg tablet amiodarone 200 mg tablet apixaban 5 mg tablet magnesium chloride 64 mg del ayed release tablet melatonin 3 mg tablet metoprolol succinate 25 mg S ustained-Release tablet potassium chloride 20 mEq Ex tended-Release tablet QUEtiapine 25 mg tablet torsemide 40 mg Tab Pertinent Findings / Procedu res First weight: 85.7 kg (189 l b) (03/27/22 0045) Last weight: 87.2 kg (192 lb 3.9 oz) (04/17/22 0552) Labs Recent Labs 04/11/22 0610 04/08/22 0539 04/06/22 2345 WBC -- 6.5 6.6 RBC -- 3.11 L 4.11 L HGB 9.7 L 8.8 L 11.8 L HCT -- 27.8 L 36.6 L MCV 89 89 89 MCH -- 28.3 28.7 MCHC -- 31.7 L 32.2 PLT -- 200 313 MPV -- 11.8 H 11.5 H Recent Labs 04/16/22 1020 04/13/22 0600 04/12/22 0543 04/11/22 0610 SODIUM 138 -- 140 141 POTASSIUM 3.4 L 3.6 3.6 3.7 CHLORIDE 109 -- 114 H 115 H MP4NAOHU 25 -- 24 23 BUN 11 -- 8 8 CREATININE 0.64 L -- 0.59 L 0.62 L CALCIUM 7.9 L -- 8.1 L 7.9 L GLUCOSE 104 H -- 101 H 107 H Micro Per outside records, last po sitive blood culture 03/15 - MSSA Per outside records, bile fl uid culture 03/17 positive for MSSA Blood culture 03/27 NGTD Blood culture 04/06 - Eubacte rium limosum Imaging CT a/p with IV contrast 04/03 1. Layering high attenuation and overall relatively more increase in expected intraluminal contents in dilated sigmoid. Correlate with bright red blood per rectum. No significant wall thickening appreciated or pericolonic inflammation. 2. Appropriately positioned percutaneous cholecystostomy tube. 3. Mild diffuse edema. 4. Stable complex cystic les ion posterior right kidney. 5. Stable small pancreatic c ysts. 6. Bilateral pleural effusio ns. Minor bibasilar atelectasis. 7. 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 No new bone finding. 8. Motion artifact mildly de grades image quality and diagnostic sensitivity. Right upper extremity venous ultrasound 03/22/22: There is nonocclusive thromb us in the right subclavian, axillary, brachial and basilic veins.The right internal jugular and cephalic veins are patent without thrombus. Transesophogeal echocardiogr aphy 03/20/22: -Normal left ventricular siz e and borderline decreased systolic function, ejection fraction of 50-55%. ??Abnormal wall motion as above. -Mild RV enlargement, normal RV systolic function. -Moderate to severe left atr ial enlargement. ??No left atrial appendage thrombus. -Small PFO demonstrated by s opal contrast. -Mild AI, mild MR. -No valvular vegetation. -No vegetation or buildup on the pacemaker leads seen in the RV and RA and distal SVC. CORONARY ANGIOGRAPHY 03/20/22 : 1. ??Right coronary artery. ??Dominant vessel with mild to moderate luminal irregularities without any obstructive disease. ??Patent stents in mid vessel. 2. ??Left coronary artery. L eft main coronary artery. ??Angiographically normal. Left circumflex coronary art sue. ??Have mild luminal irregularities without any obstructive disease. Ramus intermedius coronary a rtery. ??Have mild luminal irregularities without any obstructive disease. Left anterior descending cor onary artery and diagonal branches. ?? Had mild luminal irregularit ies without any obstructive disease.. IMPRESSION OF HEART CATHETER IZATION: ?? Nonobstructive coronary nando ry disease CT head without contrast 03/08 08/29: Age-related changes and??ath erosclerotic disease. There is no evidence of acute intracranial pathology. CXR 03/19/22: 1. Endotracheal tube with ti p 1 cm above the sarahi, retraction by 2 to 3 cm is recommended. 2. Patchy bibasilar airspace disease, atelectasis versus infiltrates. 3. Small left-sided pleural effusion. 4. Cardiomegaly without pulm onary vascular congestion. Transthroacic echocardiogram 03/18/22: 1. The left ventricle size i s dilated. The left ventricular ejection fraction is estimated at 20-25%. There is severely reduced left ventricular systolic function. ??There is paradoxic interventricular septal wall motion consisten t with RV pacing. ?? The inferior wall is severely hypokinetic. ??The inferolateral wall appears thinned/aneurysmal and akinetic. 2. No evidence of pericardia l effusion. ??Left pleural effusion is present. Procedures: Implant Procedure Type Bi-Ventricular ICD Upgrade ?? Summary / Conclusions ICD * Successful upgrade of dual chamber pacemaker to biventricular ICD. * Testing of Biventricular I CD System deferred. * Procedure completed withou t incident. * Appropriate device functio nality observed at end of case. PACEMAKER - LEAD(S) ONLY * Right ventricular lead suc cessfully removed. ?? Recommendations / Plan 1) CXR and device check in t he morning. 2) Incision check in 1-2 wee ks with primary care physician. 3) Device clinic check in 3- 4 months. 4) Medication changes: none, ok to restart apixaban in the morning if pocket site/lead is stable ??5) Pull PICC line and plac e PIV Consultants Encounter Notes Consults Angela Calero 04/09 Will Banks MD In fectious Diseases ? ? 03/27/2022 Skip Meyer MD Surge ry - General ? ? 03/27/2022 Ghislaine Hinojosa, CLAUDE N ursjerrica Practitioner ? ? 03/27/2022 Vernon Forman MD Resident ? ? 03/27/2022 Marjorie Little MD Cardiova scular Disease ? ? 03/27/2022 Vernon Palafox MD Cardiovascular Disease ? ? 03/27/2022 Diet / Activity / Follow-Up After Discharge Orders and I nstructions Activity and weight bearing as tolerated Activity and weight bearing status as tolerated. Nursing staff to re-evaluate and modify as appropriate. Admission H&P Valid: Yes After Hospital Follow Up Ap pointment(s) You have follow-up appointm ent for cholangiogram (gallbladder drain study) on 05/09/22, please present to first floor radiology desk at [facility] at 11:45am. You will then have an melodie ointment afterwards with Dr. Meek at the surgery clinic as listed below at 1:15pm to discuss drain removal and possible surgery to remove your gallbladder. [facility] [address] [place] [address] Please call the clinic at with questions, concerns or to reschedule your appointments. Thank you! When to follow up: Other (C omment) Other (Comment): as stated When is patient being disch arged?: Other/Unknown Agency Standing Orders: Yes All Orders Valid For 45 Day s Unless Otherwise Indicated Allergies: -- Codeine -- *Unknown and Other - Describe In Comment Field -- Hydrocodone-Acetaminophe n -- Confusion -- Penicillins -- Rash and Agitation -- Other reaction(s): rash Diet 2 Gram sodium restriction Discharge Condition: Stabil ized Discharge Potential: Length of Stay GREATER Than 30 Days Discharge Summary: Enclosed EKG 12 LEAD Free of Communicable Diseas e: Yes Future Lab Basic Metabolic Panel in 3 days after discharge. Give 2-Step Mantoux: Yes, U nless Current or Contraindicated Level of Care: Skilled Other activities and restri ctions for device procedures: - do not reach or stretch y our arm on the affected side for 2 weeks - do not lift more than 10 p ounds for 2 weeks - you may take a shower 24 h ours after the procedure - do not take a tub bath, go swimming, or use a hot tub for 2 weeks - carry your device identifi cation card in your wallet at all times and notify other health care providers that you have this device Patient Aware of Diagnosis: Yes Patient Cardiology Follow U p Instructions Follow up with a cardiologi st or MELODIE at the [facility] at the [facility] ([facility]) in 4-6 weeks. Please call [phone] (ext [phone]) to schedule an appointment, natalia juarez an appointment keagan galindo should call you within the next several days to assist you. When to follow up: 4 to 6 w eeks Patient may leave SNF super vised with medications Primary Care Provider yulissa w up appointment(s) Yocasta Mckeon MD When to follow up: 1 to 5 d ays When is patient being disch arged?: Today Rehab Potential: Good Surgical Drain Routine cholecystostomy tub e cares: - Change StayFix weekly and PRN - Flush PCN with 10cc NS tomas ly to maintain drain patency - Keep drain well supported / secure to prevent pulling / accidental dislodgement ?? - May shower with tube site covered Treatment - Occupational Th erapy Eval and Treat Treatment - Physical Therap y Eval and Treat Treatment Options: Full Res uscitation Vital Signs - Heart Failure Daily and more frequently a s condition warrants - assess lung sounds daily - assess for peripheral lurdes a daily - measure O2 saturations tomas ly at rest and with activity - Notify physician for respi ratory distress, O2 saturation less than 90 % at rest, if O2 LPM is greater than 2 LPM over the initial rate, and any change in patient condition or worsening heart failure symptoms. Weight Daily in a.m. Call physician if weight in creases by 2 pounds in 24 hours or 5 pounds in 7 days from admission weight. Discharge weight 192 lb. Weight per facility routine Weigh on [facility] Weight: Estimated dry weigh t: Not entirely clear but susp ect closer to 180 lb. When should you be concerne d? [facility] let your health care providers know if you notice any changes in your condition. When should you be concerne d? (ICD) Your primary health care pr ovider is Yocasta Mckeon MD Please call your cardiovascu lar provider for any of the following: - if you feel you are gettin g worse or having an increase in problems - new or worsening shortness of breath or occurring when lying flat - a weight gain of 3 pounds in one day - a weight gain of 5 pounds in one week - a tightening, pressure, sq ueezing or aching in your chest or arms - for any signs of infection , redness, swelling, increased tenderness, or pus- like drainage, temperature greater than 101 degrees Fahrenheit - if you receive one shock, call the clinic for an appointment to have your ICD checked If you are scheduled for a n on-heart related surgery or procedure, the ICD settings may need changing before the procedure. Tell your health care provider that you have a device. If you are not sure about wh at you are feeling or have questions about how you are feeling, stop whatever you are doing and call your clinic, ask to talk to a health care provider or a nurse. IMPORTANT: Call 911 if you a re receiving more than one shock in a short period of time or having symptoms after a shock or if you feel you are having a medical emergency Who can the receiving facil ity call with order questions? If any questions arise with in the first 24 hours after discharge contact our service at [phone]. [facility] at the [facility]? 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 Your incision site is close d with Steri-Strips?? (thin paper strips): Your incision has been cove red with a dressing called Silverlon. This dressing should remain in place for 7 days after your procedure. You or your doctor should remove this dressing on 04/20/2022. You may shower with the dres sing in place. Pat dry. If the dressing should come loose, fall off or if you should have any questions and/or concerns, please contact the [facility] at - once the dressing is remov ed, you do not need to cover the incision - wash the incision every da y with a mild antibacterial soap and check for any signs of infection - avoid any lotions or ointm ents on the incision site - remove Steri-Strips?? as d irected by your turkish rubber, they may loosen and fall off on their own - you may have mild discomfo rt or bruising at your incision - take pain medicine as dire cted Clinic Request for Cardiolo gy Follow Up Appointment [facility] in 4-6 wks w / ekg Type of cardiology follow u p needed: Follow Up Recommended next visit type : In person Cardiology Specialty: Gener al Non-Imaging Services Needed : EKG AMB CARDIOLOGY APPT FOLLOW UP Follow up with Dr. Diaz in July 2022 in [place] s/p TRAY SETTER-D 04/13/2022 Type of cardiology follow u p needed: Follow Up Recommended next visit type : In person Cardiology Specialty: Gener al BLOOD CULTURE (Apr 20, a 28) Pending Studies Lab results that may not be resulted at time of discharge: (From admission through now) None Total time spent on discharg e coordination: 36 minutes. Patient was seen and examined today. Yasmani Gould MD Hospitalist, [facility] ? ? [phone] 03/15/2022 Orders Only <No scans attac hed> from Last 3 Months Immunizations Name Administration Dates Next Due COVID-19 vaccine (Frilp 09/03/2020, 08/13/2020 30mcg/0.3mL) SHYAM OLIVEIRA Influenza A (H1N1), Inactivated 07/22/2009 Influenza, High-dose Inactivated 04/02/2019, 04/12/2018, , 08/06/2016, 04/27/2015 Influenza, IIV3 (Age >=3 years) 03/17/2012 Influenza, IIV4 04/04/2016 Influenza, IIV4 (Age 6-35 Mos) 04/05/2014 Pneumococcal Poly,23-Valent 04/24/2013, 04/29/2012 (Pneumovax) Pneumococcal conj 13-Valent (Prevnar 12/15/2014, 09/30/2014 13) Tdap 11/23/2016, 12/17/2014 Zoster (Zostavax-ZVL, live) 04/29/2012 Family History Medical History Relation Name Comments No Known Problems Father No Known Problems Mother Relation Name Status Comments Father (Age 70) heart Mother (Age 94) Social History Tobacco Use Types Packs/Day Years Used Date Never Smoker Smokeless Tobacco: Never Used Tobacco Cessation: Counseling Given: Yes Alcohol Use Standard Drinks/Week Comments Yes 0 (1 standard drink = 0.6 oz pure alcoho l) very rare Alcohol Habits Answer Date Recorded How often do you have a drink containing alcohol? Not asked How many drinks containing alcohol do you have on a typical Not asked day when you are drinking? How often do you have six or more drinks on one occasion? No t asked Comment: very rare 11/03/2021 Sex Assigned at Date Recorded Not on file Obstetrics History Last Filed Vital Signs Vital Sign Reading Time Taken Comments Blood Pressure 116/75 04/17/2022 9:18 AM CDT Pulse 61 04/17/2022 9:18 AM CDT Temperature 36.6 ??C (97.8 ??F) 04/17/2022 9:18 AM CDT Respiratory Rate 20 04/17/2022 9:18 AM CDT Oxygen Saturation 96% 04/17/2022 9:18 AM CDT Inhaled Oxygen Concentration - - Weight 87.2 kg (192 lb 3.9 oz) 04/17/2022 5:52 AM CDT Height 170.2 cm (5' 7) 03/27/2022 12:45 AM CDT Body Mass Index 30.11 03/27/2022 12:45 AM CDT Plan of Treatment Not on file Medical Devices Implanted Type Area Submersible Pilot Device Shelf Model / Identifier Expiration Serial / Date Lot Screw Canclls 6.5x30mm [id number] - [id number] Ortho Left: HOW MEDICA # / Implanted: Qty: 1 on 03/03/2007 at [facility] Imp.,Screw Hip / s & Plates [id number] Implant On The Fly - [id number] Left: Omkar [id number] / Implanted: Qty: 1 on 03/03/2007 at [facility] [employer] / [id number] Description: LFIT ANATOMIC V40 FEMORAL H EAD Lead 65cm Medtronic Pain Therapy [id number] / Implanted: Qty: 1 on 10/31/2015 by Nestor Maddox MD at [facility] [place] [id number] / Explanted: at [facility] (Quantity not on file) Description: LEAD 65CM Procedures Procedure Name Priority Date/Time Associated Diagnosis Comme nts BASIC METABOLIC Early AM 04/17/2022 6:11 Results f or this PANEL AM CDT procedure are i n the results section. POTASSIUM STAT 04/16/2022 11:10 Results for this PM CDT procedure are i n the results section. MAGNESIUM Today 04/16/2022 10:20 Results for this AM CDT procedure are i n the results section. BASIC METABOLIC Timed 04/16/2022 10:20 Results for this PANEL AM CDT procedure are i n the results section. SCAN-CARDIAC STRIP 04/16/2022 8:25 AM CDT SCAN-CARDIAC STRIP 04/16/2022 1:38 AM CDT SCAN-CARDIAC STRIP 04/15/2022 6:37 PM CDT SCAN-CARDIAC STRIP 04/15/2022 7:56 AM CDT SCAN-CARDIAC STRIP 04/15/2022 1:48 AM CDT SCAN-CARDIAC STRIP 04/14/2022 6:52 PM CDT COVID 19 Timed 04/14/2022 2:48 Results for this PM CDT procedure are i n the results section. COVID 19 COLLECTION Today 04/14/2022 2:48 Resul ts for this PM CDT procedure are i n the results section. ICD ANALYSIS MULTI Routine 04/14/2022 11:43 Resul ts for this CHAMBER WITHOUT AM CDT procedure ar e in REPROGAM the results section. SCAN-CARDIAC STRIP 04/14/2022 8:04 AM CDT XR CHEST 2 VIEWS PA Routine 04/14/2022 6:08 Resul ts for this AND LATERAL AM CDT procedure are i n the results section. SCAN-CARDIAC STRIP 04/14/2022 3:51 AM CDT SCAN-CARDIAC STRIP 04/13/2022 7:02 PM CDT SCAN-CARDIAC STRIP 04/13/2022 2:26 PM CDT CV PROCEDURE TO BE Routine 04/13/2022 10:19 Resul ts for this PERFORMED AM CDT procedure are i n the results section. EP ICD Routine 04/13/2022 9:05 Results for this AM CDT procedure are i n the results section. MAGNESIUM Today 04/13/2022 6:00 Results for this AM CDT procedure are i n the results section. POTASSIUM Today 04/13/2022 6:00 Results for this AM CDT procedure are i n the results section. SCAN-CARDIAC STRIP 04/12/2022 11:25 PM CDT EKG 12 LEAD Preop 04/12/2022 10:11 Results for this AM CDT procedure are i n the results section. SCAN-CARDIAC STRIP 04/12/2022 9:42 AM CDT MAGNESIUM Timed 04/12/2022 5:43 Results for this AM CDT procedure are i n the results section. BASIC METABOLIC Early AM 04/12/2022 5:43 Results f or this PANEL AM CDT procedure are i n the results section. SCAN-CARDIAC STRIP 04/11/2022 7:38 PM CDT SCAN-CARDIAC STRIP 04/11/2022 8:25 AM CDT MAGNESIUM Early AM 04/11/2022 6:10 Results for this AM CDT procedure are i n the results section. BASIC METABOLIC Early AM 04/11/2022 6:10 Results f or this PANEL AM CDT procedure are i n the results section. HEMOGLOBIN Early AM 04/11/2022 6:10 Results for this AM CDT procedure are i n the results section. SCAN-CARDIAC STRIP 04/10/2022 9:10 PM CDT MAGNESIUM Timed 04/10/2022 4:44 Results for this AM CDT procedure are i n the results section. POTASSIUM Timed 04/10/2022 4:44 Results for this AM CDT procedure are i n the results section. SCAN-CARDIAC STRIP 04/10/2022 2:46 AM CDT SCAN-CARDIAC STRIP 04/09/2022 7:19 PM CDT SCAN-CARDIAC STRIP 04/09/2022 1:13 PM CDT MAGNESIUM Timed 04/09/2022 6:27 Results for this AM CDT procedure are i n the results section. POTASSIUM Timed 04/09/2022 6:27 Results for this AM CDT procedure are i n the results section. SCAN-CARDIAC STRIP 04/08/2022 3:38 PM CDT SCAN-CARDIAC STRIP 04/08/2022 9:10 AM CDT CBC WITH AUTO Early AM 04/08/2022 5:39 Results for this DIFFERENTIAL AM CDT procedure are i n the results section. CBC WITH AUTO Early AM 04/08/2022 5:39 Results for this DIFFERENTIAL AM CDT procedure are i n the results section. POTASSIUM Timed 04/08/2022 5:39 Results for this AM CDT procedure are i n the results section. SCAN-CARDIAC STRIP 04/08/2022 1:53 AM CDT SCAN-CARDIAC STRIP 04/07/2022 7:43 AM CDT COVID 19 Timed 04/07/2022 6:39 Results for this AM CDT procedure are i n the results section. MAGNESIUM Today 04/07/2022 6:39 Results for this AM CDT procedure are i n the results section. POTASSIUM Today 04/07/2022 6:39 Results for this AM CDT procedure are i n the results section. COVID 19 COLLECTION Today 04/07/2022 6:39 Resul ts for this AM CDT procedure are i n the results section. LACTATE VENOUS Timed 04/07/2022 1:53 Results fo r this AM CDT procedure are i n the results section. BLOOD CULTURE STAT 04/06/2022 11:55 Results fo r this PM CDT procedure are i n the results section. BLOOD CULTURE STAT 04/06/2022 11:54 Results fo r this PM CDT procedure are i n the results section. SCAN-CARDIAC STRIP 04/06/2022 11:50 PM CDT MAGNESIUM STAT 04/06/2022 11:45 Results for this PM CDT procedure are i n the results section. CBC WITH AUTO STAT 04/06/2022 11:45 Results fo r this DIFFERENTIAL PM CDT procedure are i n the results section. CBC WITH AUTO STAT 04/06/2022 11:45 Results fo r this DIFFERENTIAL PM CDT procedure are i n the results section. COMP METABOLIC PANEL STAT 04/06/2022 11:45 Res ults for this PM CDT procedure are i n the results section. LACTATE VENOUS STAT 04/06/2022 11:45 Results f or this PM CDT procedure are i n the results section. EKG 12 LEAD STAT 04/06/2022 11:38 Results for this PM CDT procedure are i n the results section. SCAN-CARDIAC STRIP 04/06/2022 4:28 PM CDT SCAN-CARDIAC STRIP 04/06/2022 8:47 AM CDT POTASSIUM Timed 04/06/2022 5:26 Results for this AM CDT procedure are i n the results section. SCAN-CARDIAC STRIP 04/05/2022 8:29 PM CDT BASIC METABOLIC Early AM 04/05/2022 6:39 Results f or this PANEL AM CDT procedure are i n the results section. MAGNESIUM Early AM 04/05/2022 6:39 Results for this AM CDT procedure are i n the results section. CLOSTRIDIUM Today 04/04/2022 6:53 Results for this DIFFICILE TOXIN PCR PM CDT procedur e are in the results section. SCAN-CARDIAC STRIP 04/04/2022 4:13 PM CDT SCAN-CARDIAC STRIP 04/04/2022 7:17 AM CDT MAGNESIUM Today 04/04/2022 6:40 Results for this AM CDT procedure are i n the results section. POTASSIUM Today 04/04/2022 6:40 Results for this AM CDT procedure are i n the results section. SCAN-CARDIAC STRIP 04/04/2022 3:57 AM CDT HEMOGLOBIN Timed 04/04/2022 2:32 Results for this AM CDT procedure are i n the results section. STOOL PATHOGEN Today 04/04/2022 2:32 Results fo r this MULTIPLEX PCR PANEL AM CDT procedur e are in the results section. CBC WITH AUTO STAT 04/03/2022 11:08 Results fo r this DIFFERENTIAL PM CDT procedure are i n the results section. CALCIUM IONIZED STAT 04/03/2022 11:08 Results for this HOSPITAL DRAW ONLY PM CDT procedure are in the results section. LACTATE VENOUS STAT 04/03/2022 11:08 Results f or this PM CDT procedure are i n the results section. COMP METABOLIC PANEL STAT 04/03/2022 11:08 Res ults for this PM CDT procedure are i n the results section. CBC WITH AUTO STAT 04/03/2022 11:08 Results fo r this DIFFERENTIAL PM CDT procedure are i n the results section. BLOOD CULTURE STAT 04/03/2022 2:02 Results for this PM CDT procedure are i n the results section. SCAN-CARDIAC STRIP 04/03/2022 1:32 PM CDT SCAN-CARDIAC STRIP 04/03/2022 1:[address] ABDOMEN PELVIS W STAT 04/03/2022 1:30 Resul ts for this PM CDT procedure are i n the results section. BLOOD CULTURE STAT 04/03/2022 1:18 Results for this PM CDT procedure are i n the results section. CBC WITH AUTO STAT 04/03/2022 1:00 Results for this DIFFERENTIAL PM CDT procedure are i n the results section. COMP METABOLIC PANEL STAT 04/03/2022 1:00 Resu lts for this PM CDT procedure are i n the results section. LACTATE VENOUS STAT 04/03/2022 1:00 Results fo r this PM CDT procedure are i n the results section. CBC WITH AUTO STAT 04/03/2022 1:00 Results for this DIFFERENTIAL PM CDT procedure are i n the results section. POTASSIUM Timed 04/03/2022 1:00 Results for this PM CDT procedure are i n the results section. SCAN-CARDIAC STRIP 04/03/2022 8:14 AM CDT HEPATIC FUNCTION Add On 04/03/2022 6:39 Results for this PANEL AM CDT procedure are i n the results section. MAGNESIUM Early AM 04/03/2022 6:39 Results for this AM CDT procedure are i n the results section. POTASSIUM Early AM 04/03/2022 6:39 Results for this AM CDT procedure are i n the results section. SCAN-CARDIAC STRIP 04/02/2022 7:30 PM CDT MAGNESIUM KIERSTEN 04/02/2022 4:12 Results for this PM CDT procedure are i n the results section. POTASSIUM Timed 04/02/2022 4:12 Results for this PM CDT procedure are i n the results section. SCAN-CARDIAC STRIP 04/02/2022 3:57 PM CDT POTASSIUM Timed 04/02/2022 10:01 Results for this AM CDT procedure are i n the results section. SCAN-CARDIAC STRIP 04/02/2022 7:34 AM CDT POTASSIUM Timed 04/02/2022 3:52 Results for this AM CDT procedure are i n the results section. MAGNESIUM Early AM 04/02/2022 3:52 Results for this AM CDT procedure are i n the results section. CREATININE Early AM 04/02/2022 3:52 Results for this AM CDT procedure are i n the results section. ELECTROLYTE PANEL Early AM 04/02/2022 3:52 Results for this AM CDT procedure are i n the results section. SCAN-CARDIAC STRIP 04/02/2022 2:08 AM CDT POTASSIUM Timed 04/01/2022 5:32 Results for this PM CDT procedure are i n the results section. SCAN-CARDIAC STRIP 04/01/2022 5:07 PM CDT CREATININE Early AM 04/01/2022 5:52 Results for this AM CDT procedure are i n the results section. ELECTROLYTE PANEL Early AM 04/01/2022 5:52 Results for this AM CDT procedure are i n the results section. MAGNESIUM Early AM 04/01/2022 5:52 Results for this AM CDT procedure are i n the results section. SCAN-CARDIAC STRIP 04/01/2022 12:24 AM CDT POTASSIUM Timed 03/31/2022 11:54 Results for this PM CDT procedure are i n the results section. COVID 19 Timed 03/31/2022 4:30 Results for this PM CDT procedure are i n the results section. COVID 19 COLLECTION Today 03/31/2022 4:30 Resul ts for this PM CDT procedure are i n the results section. POTASSIUM Timed 03/31/2022 4:11 Results for this PM CDT procedure are i n the results section. GLUCOSE METER Timed 03/31/2022 12:22 Results fo r this PM CDT procedure are i n the results section. SCAN-CARDIAC STRIP 03/31/2022 7:30 AM CDT MAGNESIUM Add On 03/31/2022 6:07 Results for this AM CDT procedure are i n the results section. HEMOGLOBIN Early AM 03/31/2022 6:07 Results for this AM CDT procedure are i n the results section. POTASSIUM Early AM 03/31/2022 6:07 Results for this AM CDT procedure are i n the results section. SCAN-CARDIAC STRIP 03/30/2022 8:09 PM CDT XR CHEST 1 VIEW Routine 03/30/2022 2:59 Results f or this PORTABLE PM CDT procedure are i n the results section. POTASSIUM Timed 03/30/2022 1:11 Results for this PM CDT procedure are i n the results section. SCAN-CARDIAC STRIP 03/30/2022 12:52 PM CDT MAGNESIUM KIERSTEN 03/30/2022 6:05 Results for this AM CDT procedure are i n the results section. BASIC METABOLIC KIERSTEN 03/30/2022 6:05 Results f or this PANEL AM CDT procedure are i n the results section. POTASSIUM Early AM 03/30/2022 6:05 Results for this AM CDT procedure are i n the results section. HEMOGLOBIN Early AM 03/30/2022 6:05 Results for this AM CDT procedure are i n the results section. SCAN-CARDIAC STRIP 03/30/2022 3:22 AM CDT SCAN-CARDIAC STRIP 03/29/2022 5:46 PM CDT SCAN-CARDIAC STRIP 03/29/2022 7:27 AM CDT BASIC METABOLIC Early AM 03/29/2022 5:35 Results f or this PANEL AM CDT procedure are i n the results section. MAGNESIUM Early AM 03/29/2022 5:35 Results for this AM CDT procedure are i n the results section. APTT Early AM 03/29/2022 5:35 Results for this AM CDT procedure are i n the results section. HEMOGLOBIN Early AM 03/29/2022 5:35 Results for this AM CDT procedure are i n the results section. PLATELET COUNT Early AM 03/29/2022 5:35 Results fo r this AM CDT procedure are i n the results section. SCAN 03/29/2022 12:00 Results for this CORRESP-DIAGNOSTICS AM CDT procedur e are in the results section. SCAN-CARDIAC STRIP 03/28/2022 8:48 PM CDT SCAN-CARDIAC STRIP 03/28/2022 11:49 AM CDT MAGNESIUM KIERSTEN 03/28/2022 5:49 Results for this AM CDT procedure are i n the results section. POTASSIUM Early AM 03/28/2022 5:49 Results for this AM CDT procedure are i n the results section. APTT Early AM 03/28/2022 5:49 Results for this AM CDT procedure are i n the results section. HEMOGLOBIN Early AM 03/28/2022 5:49 Results for this AM CDT procedure are i n the results section. PLATELET COUNT Early AM 03/28/2022 5:49 Results fo r this AM CDT procedure are i n the results section. XR CHEST 1 VIEW KIERSTEN 03/27/2022 9:13 Results f or this PORTABLE PM CDT procedure are i n the results section. MAGNESIUM STAT 03/27/2022 6:59 Results for this PM CDT procedure are i n the results section. POTASSIUM STAT 03/27/2022 6:59 Results for this PM CDT procedure are i n the results section. SCAN-CARDIAC STRIP 03/27/2022 6:42 PM CDT SCAN-CARDIAC STRIP 03/27/2022 6:42 PM CDT EKG 12 LEAD Routine 03/27/2022 6:32 Results for this PM CDT procedure are i n the results section. BLOOD CULTURE Today 03/27/2022 5:02 Results for this PM CDT procedure are i n the results section. BLOOD CULTURE Today 03/27/2022 4:51 Results for this PM CDT procedure are i n the results section. SCAN-CARDIAC STRIP 03/27/2022 4:17 PM CDT APTT Timed 03/27/2022 2:08 Results for this PM CDT procedure are i n the results section. PACER ANALYSIS MULTI Routine 03/27/2022 10:01 Res ults for this CHAMBER WITHOUT AM CDT procedure ar e in REPROGRAM the results section. APTT Today 03/27/2022 8:14 Results for this AM CDT procedure are i n the results section. SCAN-CARDIAC STRIP 03/27/2022 8:12 AM CDT HEMOGLOBIN Early AM 03/27/2022 6:30 Results for this AM CDT procedure are i n the results section. PLATELET COUNT Early AM 03/27/2022 6:30 Results fo r this AM CDT procedure are i n the results section. MAGNESIUM Early AM 03/27/2022 6:30 Results for this AM CDT procedure are i n the results section. BASIC METABOLIC Early AM 03/27/2022 6:30 Results f or this PANEL AM CDT procedure are i n the results section. SCAN-CARDIAC STRIP 03/27/2022 2:49 AM CDT APTT KIERSTEN 03/27/2022 1:34 Results for this AM CDT procedure are i n the results section. PROTIME-INR KIERSTEN 03/27/2022 1:34 Results for this AM CDT procedure are i n the results section. ECHO COMPLETE WO Routine 03/15/2022 1:59 Cardiomyopathy (HC) Results for this CONTRAST PM CDT NSTEMI (non-ST procedure are in elevated myocardial the resu lts infarction) (HC) section. from Last 3 Months Results (ABNORMAL) Basic metabolic panel AM (04/17/2022 6:11 AM CDT)Only the most recent of8 resultswithin the time period is included. [facility] SODIUM 141 135 - 145 04/17/2022 [facility] mmol/L 8:03 AM CDT LABORATORY-DOMINIQUE TRAL LABORATORY POTASSIUM 4.0 3.5 - 5.0 04/17/2022 [facility] mmol/L 8:03 AM CDT LABORATORY-DOMINIQUE TRAL LABORATORY CHLORIDE 109 98 - 110 04/17/2022 [facility] mmol/L 8:03 AM CDT LABORATORY-DOMINIQUE TRAL LABORATORY CO2,TOTAL 26 21 - 31 04/17/2022 [facility] mmol/L 8:03 AM CDT LABORATORY-DOMINIQUE TRAL LABORATORY ANION GAP 6 5 - 18 04/17/2022 [facility] 8:03 AM CDT LABORATORY-DOMINIQUE TRAL LABORATORY GLUCOSE 104 (H) 65 - 100 04/17/2022 [facility] mg/dL 8:03 AM CDT LABORATORY[facility]DOMINIQUE TRAL LABORATORY CALCIUM 7.9 (L) 8.5 - 10.5 04/17/2022 [facility] mg/dL 8:03 AM CDT LABORATORY-DOMINIQUE TRAL LABORATORY BUN 11 8 - 25 04/17/2022 [facility] mg/dL 8:03 AM CDT LABORATORY-DOMINIQUE TRAL LABORATORY CREATININE 0.72 0.72 - 04/17/2022 [facility] 1.25 mg/dL 8:03 AM CDT LABORATORY-DOMINIQUE TRAL LABORATORY BUN/CREAT RATIO 15 10 - 20 04/17/2022 [facility] 8:03 AM CDT LABORATORY-DOMINIQUE TRAL LABORATORY eGFR 90 (L) >90 04/17/2022 [facility] mL/min/1.7 8:03 AM CDT LABORATORY-DOMINIQUE 3m2 TRAL LABORATORY Comment: As of 2021, eGFR is calcu lated by the CKD-EPI creatinine equation without race adjustment. eGFR can be inf luenced by muscle mass, exercise, and diet. The reported eGFR is an estimation only and is only applicable if the renal function is stable. Specimen Anatomical Collection Method / Collection Time Recei deneen Time (Source) Location / Volume Laterality Blood BLOOD SPECIMEN / Non-Lab 04/17/2022 6:11 04/17/20 22 6:38 Unknown Venipuncture / AM CDT AM CDT Unknown Yasmani Gould MD CHEMISTRY Performing Organization Address City/[facility] Phon e Number [employer] [phone] [place] [phone] LABORATORY-CENTRAL 2000 LABORATORY POTASSIUM (04/16/2022 11:10 PM CDT)Only the most recent of21 resultswithin the time period is included. P athologist Signature POTASSIUM 4.1 3.5 - 5.0 04/17/2022 [facility] mmol/L 12:00 AM CDT LABORATORY-CENTR AL LABORATORY Specimen Anatomical Collection Method Collection Time Receive d Time (Source) Location / / Volume Laterality Blood BLOOD SPECIMEN / Butterfly / 04/16/2022 11:10 022 Unknown Unknown PM CDT 11:19 PM CDT Yasmani Gould MD CHEMISTRY Performing Organization Address [facility] Phon e Number [employer] [phone] [place] [phone] LABORATORY-CENTRAL 2000 LABORATORY Magnesium TODAY (04/16/2022 10:20 AM CDT)Only the most recent of20 resultswithin the time period is included. P athologist Signature MAGNESIUM 2.1 1.6 - 2.6 04/16/2022 [facility] mg/dL 11:12 AM CDT LABORATORY-CENTR AL LABORATORY Specimen Anatomical Collection Method / Collection Time Recei deneen Time (Source) Location / Volume Laterality Blood BLOOD SPECIMEN / Venipuncture / 04/16/2022 10:20 04/16 Unknown Unknown AM CDT 10:37 AM CDT Yasmani Gould MD CHEMISTRY Performing Organization Address City/State/ZIP Code Phon e Number [facility] [address] [place] [address] LABORATORY-CENTRAL 2000 LABORATORY SCAN-CARDIAC STRIP (04/16/2022 8:25 AM CDT) Narrative This result has an attachment that is no t available. Scanner OTHER SCAN-CARDIAC STRIP (04/16/2022 1:38 AM CDT) Narrative This result has an attachment that is no t available. Scanner OTHER SCAN-CARDIAC STRIP (04/15/2022 6:37 PM CDT) Narrative This result has an attachment that is no t available. Scanner OTHER SCAN-CARDIAC STRIP (04/15/2022 7:56 AM CDT) Narrative This result has an attachment that is no t available. Scanner OTHER SCAN-CARDIAC STRIP (04/15/2022 1:48 AM CDT) Narrative This result has an attachment that is no t available. Scanner OTHER SCAN-CARDIAC STRIP (04/14/2022 6:52 PM CDT) Narrative This result has an attachment that is no t available. Scanner OTHER COVID 19 (04/14/2022 2:48 PM CDT)Only the most recent of2 resultswithin the time period is included. Analysis Performed At [facility] Time Signature COVID 19 Negative Negative 04/14/2022 [facility] 8:03 PM CDT LABORATORY-DOMINIQUE MOLECULAR TRAL LABORATORY Specimen Anatomical Location / Collection Method Collection Efren e Received Time (Source) Laterality / Volume Other SPECIMEN FROM Non-Blood / 04/14/2022 2:48 04/14/2022 2:57 NASOPHARYNGEAL Unknown PM CDT PM CDT STRUCTURE / Unknown Narrative [facility] LABORATORY-CENTRAL LABORAT ORY - 04/14/2022 8:03 PM CDT All PCR tests are subject to false negative result due to variability in viral load and collection te chnique. A negative result does not rule out a SARS-CoV-2 infection. Clinical correlation required. This test has been authorized by FDA und er an Emergency Use Authorization (EUA). This test is only authorized for the duration of time the declaration that circumstances exist justifying the authorizati on of the emergency use of in vitro diag nostic tests for detection of SARS-CoV-2 virus and/or diagnosis of COVID-19 infection under section 564(b)(1) of the Act, 21 U.S.C. 360bbb-3(b) (1), unless the authorization is terminated or revoked sooner. Ines Howard MD MICROBIOLOGY Performing Organization Address City/State/ZIP Code Phon e Number [employer] [phone] [place] [id number] LABORATORY-CENTRAL 2000 LABORATORY COVID 19 COLLECTION (04/14/2022 2:48 PM CDT)Only the most recent of3 results within the time period is included. [facility] Method Time Signature TESTING [facility] 04/14/2022 [facility] LABORATORY Laboratory 2:57 PM CDT LABORATORY-CE NTRAL LABORATORY Comment: Specimen submitted to [facility] for testing. Specimen Anatomical Location / Collection Method Collection Efren e Received Time (Source) Laterality / Volume Other SPECIMEN FROM Non-Blood / 04/14/2022 2:48 04/14/2022 2:56 NASOPHARYNGEAL Unknown PM CDT PM CDT STRUCTURE / Unknown Ines Howard MD SEND OUTS Performing Organization Address [facility]/ZIP Code Phon e Number [employer] [phone] [place] [id number] LABORATORY-CENTRAL 2000 LABORATORY ICD ANALYSIS MULTI CHAMBER WITHOUT REPROGAM (04/14/2022 11:43 AM CDT) Narrative Pepe Garrido MD - 04/14/2022 11 :43 AM CDT Yocasta Grajeda RN ? 04/14/2022 12:49 PM ICD EVALUATION REPORT April 14, 2022 Indication for ICD:??Ventricular tachyca rdia, Chronic systolic heart failure, EF 25%, Sinus node dysfun ction, Cardiomyopathy Primary MD:??Yocasta Mckeon MD Primary Foot And Ankle Surgeon:??Teresa Diaz MD Implanting MD:??Pepe Garrido MD - upgr apollo from TRAY SETTER-P to TRAY SETTER-D DEVICE DATA Submersible Pilot??Medtronic:?Model Greenway XT HF Quad TRAY SETTER-D MRI [id number] Implant Date 04/13/2022 LEAD DATA Atrial Lead: Submersible Pilot??Medtronic:?Model 5076-52??cm ??SN: [id number]?Implant Date 11/03/2021 RV Lead: Submersible Pilot??Medtronic:??Model 6935M-62??Implant Date 04/13/2022 LV Lead: Submersible Pilot??Medtronic:??Model 4798-88??cm ??SN: [id number]?Implant Date 11/03/2021 ?? Advisory: Re: Advisory for potential int hsyohmrku-grjhcor-orjice shocks due to short circuit protection e vent- all HV therapies programmed to B>AX pathway, 'Active Can' enabled, software has been updated and associated lead alerts are programmed on per Medtronic recommendations. Pt was instru cted to routinely leave their remote home monitor connected. Visit location: [facility] H4000 Reason For Evaluation: Routine - day 1 p ost upgrade from TRAY SETTER-P to TRAY SETTER-D. Old 3830 RV pace/sense removed. ?? MEASUREMENTS Atrial Sensing - P wave: 1.5 - 1.6 mV Atrial Capture: 0.75 V @ 0.4 ms Atrial Lead Impedance: 475 ohms Ventricular Sensing - R wave: 10.9 mV RV Capture: 0.75 V @ 0.4 ms LV Capture: 1.25 V @ 0.4 ms Ventricular Pacing Lead Impedance: Right - 361 ohms ??Left - 513 ohms Ventricular Shock Impedance: 33 ohms Presenting/underlying rhythm: Sinus dave ycardia ~49 bpm with both first degree av block and intermittent c omplete heart block noted. Occasional pvcs. DIAGNOSTIC DATA - since 04/13/2022 Mark pacemaker data: Atrial paced - 80. 7%, Total TRAY SETTER paced: 98.9% (BiV: 100%, LV: <0.1%) and 0% V-se nse response(VSR), ?? Effective: 98.9% Atrial Episodes: None. Associated sympto ms: not applicable Ventricular Episodes: None. Associated s ymptoms: not applicable OptiVol: Initializing Histogram: Stunted rate distribution; ap propriate for present activity level Battery voltage: 3.03 V ??Estimated danny sue longevity: 7.7 years remaining Last capacitor reform: 04/13/2022 ??Charg e time: 3.6 seconds FINAL VENTRICULAR TACHYCARDIA PARAMETERS Rate (bpm): 140- 188 Therapy: Monitor on ly NID: 32 Rate (bpm): >188 Therapy: iATP x 3, 40J x 6 (all B>AX) NID: 30/40 FINAL BRADYCARDIA PACEMAKER PARAMETERS Mode: DDDR ??Lower rate: 60 bpm ??Upper rate: 120/120 bpm ??Adaptive BiV & LV-AV Delay: 150/110 ms, V-V: LV>R V, auto 0 ms ?Mode Switch: 171 bpm ??Rate Response: low 3/3 Atrial - Amplitude: adaptive 2 V ??Pulse width: 0.4 ms ?? Sensitivity: 0.3 mV ??Refractory: auto, min 250 ms ??Polarity: Bipolar Right Ventricular - Amplitude: adaptive 3.5 V ??Pulse width: 0.4 ms ??Sensitivity: 0.3 mV ??Polarity: Bip olar Left Ventricular - Amplitude: adaptive ( +auto) 2.75 V ??Pulse width: 0.4 ms ??Vector: LV3> LV4 Changes made: Device temporarily reprogr ammed, iterative adjustments made during interrogation/te sting. No permanent changes made.?? CONCLUSION: Normal ICD function. Lead me asurements within normal limits. No arrhythmias detected. 80.7% a trial paced. 98.9% effective BiV pacing. Patient education post-device implant c ompleted with patient & spouse. Discussed incision care, signs a nd symptoms of infection, including redness, drainage, swelling, f ever, and chills, & activity restrictions including driving. Also discussed indication for implant and device mechan ics. Education folder containing device booklet, ID card and i ncision care sheet was reviewed and given to patient to take ho me at discharge. Patient verbalized understanding the above and i s agreeable with plan of care as described. Patient was given I business card and encouraged to call if he has any concern s or questions in the future. ?? Follow up: Patient/family to arrange Jamia verlon dressing removal & incision check on 04/20/2022. ICD interr ogation in 3 months scheduled for 07/17/2022 in [place] at 1330. Routine follow up (has [employer] mobile melodie-based monitor - discussed ensuring this is charged with melodie open): q 3 month via remote & clinic in [place]. Yocasta Grajeda RN [facility] Pacemaker/ICD Clinic [phone] 04/14/2022 Pepe Garrido MD CARDIAC SERVICES ORD SCAN-CARDIAC STRIP (04/14/2022 8:04 AM CDT) Narrative This result has an attachment that is no t available. Scanner OTHER XR Chest PA and Lateral (04/14/2022 6:08 AM CDT) Anatomical Region Laterality Modality CHEST, THORAX, Lung, HEART Digital Radio graphy Specimen (Source) Anatomical Collection Method Collection Time Re ceived Time Location / / Volume Laterality 04/14/2022 7:33 AM CDT Impressions 04/14/2022 7:33 AM CDT Status post pacemaker placement without evidence of complication. Severe gaseous distention of bowel. Dictated by Vernon Parada MD @ Apr ??8 2021 ??7:33AM (Electronically Signed) ?? Narrative 04/14/2022 7:33 AM CDT For Patients: ??As a result of the Cures Act, medical imaging exams and procedure report s are released immediately into your [facility] medical record. ??You may view this report before your referring provider. ??If you have questions, please contact your health care provider. INDICATION: Status post pacemaker placement. TECHNIQUE: Two view chest radiograph. COMPARISON: 03/30/2022. FINDINGS: Pacemaker and leads appear grossly intac t. Stable cardiomediastinal contours. Similar retrocardiac consolidation. No significant pneumothorax. Small effusions. Severe gaseous distention of bowel, partially visualized. Procedure Note Vernon Parada MD - 2 For Patients: As a result of the Cures Act, medical imaging exams and procedure reports are released immediately into your electronic medical record. You may view this report before your referring provider. If you have questions, please contact [facility] health care provider. INDICATION: Status post pacemaker placement. TECHNIQUE: Two view chest radiograph. COMPARISON: 03/30/2022. FINDINGS: Pacemaker and leads appear grossly intac t. Stable cardiomediastinal contours. Similar retrocardiac consolidation. No significant pneumothorax. Small effusions. Severe gaseous distention of bowel, partially visualized. IMPRESSION: Status post pacemaker placement without evidence of complication. Severe gaseous distention of bowel. Dictated by Vernon Parada MD @ Apr 14 2022 7:33AM (Electronically Signed) Pepe Garrido MD GENERAL IMAGING SCAN-CARDIAC STRIP (04/14/2022 3:51 AM CDT) Narrative This result has an attachment that is no t available. Scanner OTHER SCAN-CARDIAC STRIP (04/13/2022 7:02 PM CDT) Narrative This result has an attachment that is no t available. Scanner OTHER SCAN-CARDIAC STRIP (04/13/2022 2:26 PM CDT) Narrative This result has an attachment that is no t available. Scanner OTHER EP Procedure to be Performed (04/13/2022 10:19 AM CDT) Narrative Pepe Garrido MD - 04/13/2022 10 :19 AM CDT Pepe Garrido MD ? 04/13/2022 10:23 AM Cardiac Electrophysiology Immediate Post Procedure Note Preoperative Diagnosis: ??Ventricular ta chycardia, TRAY SETTER-P in place, chronic systolic heart failure, EF 25% Procedure: ??Pulled LUE PICC back to mid line position (19 cm), Upgrade to TRAY SETTER-D, removal of 4F RV pace/ sense lead Findings/Conclusions: ??Same as above Postoperative Diagnosis: ??Same as preop erative diagnosis Complications: ??NA Personally monitored patient with consci ous sedation during procedure: No Estimated Blood Loss: ??minimal Specimen: ??N/A Plan: 1) CXR and device check in the morning. 2) Incision check in 1-2 weeks with [facility] physician. 3) Device clinic check in 3-4 months. 4) Medication changes: none, ok to resta rt apixaban in the morning if pocket site/lead is stable Surgeon: Pepe Garrido MD Laurita Bermudez PA ASBESTOS HANDLER ORD EP ICD (04/13/2022 9:05 AM CDT) Anatomical Region Laterality Modality Other Specimen (Source) Anatomical Collection Method Collection Time Re ceived Time Location / / Volume Laterality 04/13/2022 9:05 AM CDT Narrative This result has an attachment that is no t available. Transcriptions Pepe Garrido MD - 04/13/2022 8: 27 PM CDT [facility] [place] [facility] Electrophysiology Implant Report Name: SIMON ESCOBAR Event Date: 022 Bernard ID #: [id number] Date: Gender: Male Age: 86 [facility] #: [id number] Procedure Performed By: PEPE GARRIDO [facility] Primary Molded Candles Wicker: YOLANDA SANTIAGO Referring Physician: Primary Care Physician: YOCASTA MCKEON Implant Procedure Type Bi-Ventricular ICD Upgrade Summary / Conclusions ICD * Successful upgrade of dual chamber pac emaker to biventricular ICD. * Testing of Biventricular ICD System de ferred. * Procedure completed without incident. * Appropriate device functionality obser deneen at end of case. PACEMAKER - LEAD(S) ONLY * Right ventricular lead successfully re moved. Recommendations / Plan 1) CXR and device check in the morning. 2) Incision check in 1-2 weeks with [facility] physician. 3) Device clinic check in 3-4 months. 4) Medication changes: none, ok to resta rt apixaban in the morning if pocket site/lead is stable 5) Pull PICC line and place PIV Pre-Operative Diagnosis ? Ventricular tachycardia ? TRAY SETTER-P in place ? Chronic systolic heart failure ? Mobitz II AV block Post-Operative Diagnosis ? Same as Pre-operative diagnosis Indications ? Same as Pre-operative diagnosis Brief Patient History In summary, Mr. Escobar is an 86 y.o. 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 He is here with a RIGHT UPPER EXTREMITY DVT and sepsis due to cholecystitis s/p percutaneous cholec ystostomy tube placement with admission complicated by VT requiring shocks and IV amiodarone. He has been cleared by ID for upgrade for TRAY SETTER-D with removal of his RV pacing lead. Consent & [place] Protocol [place] protocol was followed. TIME OU T conducted just prior to starting procedure confirmed patient identity, site/side, procedure, patient position, and availability of correct equipment and implants (if applicable). The risks, benefits, and alternatives of the procedure were discussed with the patient and written informed consent was obtained. Procedure Description The patient arrived at the Cardiac Elect rophysiology Laboratory in the fasting, non-sedated state. Informed consent was previously obtained from patient, who understood indications, risks, and benefits of the procedure. Deep sedation was administered by the [facility] service. Under fluoroscopic guidance, I first pulled the PICC line proximal to the axillary vein and secured it again with a sterile dressing. The patient was prepped and draped in a sterile fash ion. The Left Pectoral region was anesthetized. A peripheral venogram was performed to opacify and rule out stenosis in the subclavian and axillary veins. The venogram revealed a widely patent subclavian/axillary vein. An incision was made over the previously created surgical scar. Electrocautery dissection was used to incise the pseudocapsule until the generator was exposed. The generator was removed and the leads were dissected free and were disconnected from the generator. Under direct fluoroscopy, the Axillary Vein was punctured and a wire was inserted. An ICD lead was implanted in the right ventricular apex using fluoroscopic guid ance. Next, the 4F RV pace/sense lead was disconnected from the suture tie-down sleeve. I counter-clocked the lead and removed it easily with gentle traction. All leads were inspected and sensing and pacing thresho lds were captured. After satisfactory sensing and pacing thresholds were confirmed, the ICD was sutured in the pocket using Ethibond sutures. The pocket was rinsed with antibiotic solution and the new TRAY SETTER-D ge nerator was introduced into the field. The leads were connected to the generator. The generator was inserted into an antibiotic pouch and then inserted into the pocket. The incision was closed in 3 layers using Vi cryl sutures. Skin closure was reinforced with stert-strips. The patient tolerated the procedure well without complications and left the electrophysiology laboratory in stable condition. Implantable Device Specifications Pulse Generator Detail Implanted Status Pocket Location Juanita hooper Model Serial Number 11/03/2021 Explanted Left Pectoral [employer] [facility] [id number] 04/13/2022 Implanted Left Pectoral [employer] Greenway XT DF4 Quad M [id number] Lead Detail Implanted Status Chamber Location Primo ctrichardr Model Serial Number 04/13/2022 Implanted Right Ventricle [place] [employer]tronic[employer] Sprint [employer]un[employer] Secur 6935M-62 [id number] 11/03/2021 Chronic Right Atrium Right Melodie endage [employer]onic[employer] CapSureFix Novus 5076-52 [id number] 11/03/2021 Explanted Right Ventricle Sept um [employer]tronic[employer] Inc. Secure Select 3830-69 [id number] 11/03/2021 Chronic Coronary Sinus Left La teral Wall [employer]tronic[employer] Inc[employer] Attain Stability Quad MRI 4798-88 [id number] Measurement Barrel Inspector P/R Wave (mV) Threshold (V) Pulse Width (msec) Resistance (ohms) High Output Stim Result RA 1.5 0.75 0.4 494 No Stimulation @ 10 V RV 5.5 0.6 0.4 418 No Stimulation @ 10 V LV/CS 1 0.4 361 No Stimulation @ 10 V Device Settings Mode Lower Rate (bpm) Upper Rate (bpm) DDDR 60 120 RICHARD Delay: 100 msec PAV Delay: 130 msec Lead Amplitude (V) Pulse Width (msec) Sensitivity (mV) Configuration Atrial 1.5 0.4 0.30 Bipolar RV 3.5 0.4 0.30 Bipolar LV 1.5 0.4 LV2-LV3 Features Magnet Use: Enabled Wireless Telemetry: Active Feature Status Detail Mode Switch On 171 bpm MRI Conditional On ICD Therapies Zone Detect Rate Therapy 1 Therapy 2 The rapy 3 Therapy 4 Therapy 5 Therapy 6 Therapy 7 Therapy 8 VF 188 bpm Defib (Std Config) 40 Joules Same as previous Same as previous Same as previous Same as previous Same as previous VT 140 Procedure(s) Performed ? REMOVAL of PPM pulse generator only ? Insertion/replacement of Single or Sorin l Chamber ICD system ? Removal of PPM lead(s), dual lead syst em - one or both leads Procedure Detail Estimated Blood Loss: < 50 ml Specimen Collected: None Level of Sedation Achieved: See Anesthes ia Note Total Fluoro Time: 6.4 GEOSPATIAL INFORMATION SCIENTIST Fluoro Dose Plane A: 66 mGy Contrast: Visipaque, 10 ml Staff Name Role Pepe Garrido Molded Candles Wicker Cydney El RN Nurse Hermilo Allen EPT Scrub Yodit Ruiz MEDICAL LAB TECHNOLOGIST Liquor Rectifier Medications Ordered and Administered Start Time Stop Time Medication Dose Uni ts Route Ordered By Given By 09:05 0.5% Bupivicaine 10 mL Subcut MD Pepe Low MD 09:05 1% Lidocaine Hydrochloride 10 mL S ubcut MD Pepe Valdovinos MD 10:01 Vancomycin Irrigation 250 Mg None MD Pepe Valdovinos MD The anesthesia service monitored the pat ient?s conscious sedation during the procedure. The medications listed above were verbal ly ordered by me and read back to me as documented above. Refer to the hemodynamic procedure log r eport for additional case details. electronically signed on 04/13/2022 8:27 :29 PM with status of Final Pepe Garrido MD Implanting Foot And Ankle Surgeon [facility] [address] [place] [address] (p) [phone](f) Skip Harris MD CV IMAGING SCAN-CARDIAC STRIP (04/12/2022 11:25 PM CDT) Narrative This result has an attachment that is no t available. Scanner OTHER 12 Lead EKG (04/12/2022 10:11 AM CDT)Only the most recent of3 resultswithin the time period is included. Component Value Ref Range Test Analysis Performed Pathologis t Method Time At Signature Interpretation AV dual-paced rhythm with prolonged AV conduction BEYOND NOW Abnormal ECG When compared with ECG of 06-APR-2022 23:38, Electronic ventricular pacemaker has replaced Wide QRS tachy cardia Vent. rate has decreased BY ??75 BPM Ventricular Rate 60 BPM BEYOND NOW Atrial Rate 60 BPM BEYOND NOW P-R Interval 240 ms BEYOND NOW QRS Duration 94 ms BEYOND NOW QT 564 ms BEYOND NOW QTc 564 ms BEYOND NOW P [place] degrees BEYOND NOW R [place] 73 degrees BEYOND NOW T [place] 169 degrees BEYOND NOW Specimen Anatomical Collection Method Collection Time Receive d Time (Source) Location / / Volume Laterality 04/12/2022 10:11 04/12/2022 6:06 AM CDT PM CDT Laurita WILKINSON EKG ORD Performing Organization Address City/State/ZIP Code Phon e Number [place]OND NOW [place], [place] SCAN-CARDIAC STRIP (04/12/2022 9:42 AM CDT) Narrative This result has an attachment that is no t available. Scanner OTHER SCAN-CARDIAC STRIP (04/11/2022 7:38 PM CDT) Narrative This result has an attachment that is no t available. Scanner OTHER SCAN-CARDIAC STRIP (04/11/2022 8:25 AM CDT) Narrative This result has an attachment that is no t available. Scanner OTHER (ABNORMAL) Hemoglobin AM (04/11/2022 6:10 AM CDT)Only the most recent of7 resultswithin the time period is included. athologist Signature HEMOGLOBIN 9.7 (L) 13.5 - 04/11/2022 [employer] 17.5 g/dL 6:48 AM CDT LABORATORY-[facility] LABORATORY MCV 89 80 - 100 04/11/2022 [employer] fL 6:48 AM CDT LABORATORY-[facility] LABORATORY Specimen Anatomical Collection Method / Collection Time Recei deneen Time (Source) Location / Volume Laterality Blood BLOOD SPECIMEN / Non-Lab 04/11/2022 6:10 04/11/20 22 6:22 Unknown Venipuncture / AM CDT AM CDT Unknown Dimitrios Gibson MD HEMATOLOGY Performing Organization Address City/State/ZIP Code Phon e Number [employer] [address] [place] [address] LABORATORY-CENTRAL 2000 LABORATORY SCAN-CARDIAC STRIP (04/10/2022 9:10 PM CDT) Narrative This result has an attachment that is no t available. Scanner OTHER SCAN-CARDIAC STRIP (04/10/2022 2:46 AM CDT) Narrative This result has an attachment that is no t available. Scanner OTHER SCAN-CARDIAC STRIP (04/09/2022 7:19 PM CDT) Narrative This result has an attachment that is no t available. Scanner OTHER SCAN-CARDIAC STRIP (04/09/2022 1:13 PM CDT) Narrative This result has an attachment that is no t available. Scanner OTHER SCAN-CARDIAC STRIP (04/08/2022 3:38 PM CDT) Narrative This result has an attachment that is no t available. Scanner OTHER SCAN-CARDIAC STRIP (04/08/2022 9:10 AM CDT) Narrative This result has an attachment that is no t available. Scanner OTHER (ABNORMAL) CBC WITH AUTO DIFFERENTIAL (04/08/2022 5:39 AM CDT)Only the most recent of4 resultswithin the time period is included. [facility] Method Time Signature WHITE BLOOD 6.5 4.5 - 04/08/2022 [facility] COUNT 11.0 5:53 AM CDT LABORATORY-DOMINIQUE thou/cu TRAL mm LABORATORY RED BLOOD COUNT 3.11 (L) 4.30 - [facility] 5.90 5:53 AM CDT LABORATORY-DOMINIQUE mil/cu mm TRAL LABORATORY HEMOGLOBIN 8.8 (L) 13.5 - 04/08/2022 [facility] 17.5 g/dL 5:53 AM CDT LABORATORY-DOMINIQUE TRAL LABORATORY HEMATOCRIT 27.8 (L) 37.0 - 04/08/2022 [facility] 53.0 % 5:53 AM CDT LABORATORY-DOMINIQUE TRAL LABORATORY MCV 89 80 - 100 04/08/2022 [facility] fL 5:53 AM CDT LABORATORY-DOMINIQUE TRAL LABORATORY MCH 28.3 26.0 - 04/08/2022 [facility] 34.0 pg 5:53 AM CDT LABORATORY-DOMINIQUE TRAL LABORATORY MCHC 31.7 (L) 32.0 - 04/08/2022 [facility] 36.0 g/dL 5:53 AM CDT LABORATORY-DOMINIQUE TRAL LABORATORY RDW 16.7 (H) 11.5 - 04/08/2022 [facility] 15.5 % 5:53 AM CDT LABORATORY-DOMINIQUE TRAL LABORATORY PLATELET COUNT 200 140 - 440 04/08/2022 [facility] thou/cu 5:53 AM CDT LABORATORY-DOMINIQUE mm TRAL LABORATORY MPV 11.8 (H) 6.5 - 04/08/2022 [facility] 11.0 fL 5:53 AM CDT LABORATORY-DOMINIQUE TRAL LABORATORY NRBC 0.0 % 04/08/2022 [facility] 5:53 AM CDT LABORATORY-DOMINIQUE TRAL LABORATORY ABS NRBC 0.0 thou /cu 04/08/2022 [facility] mm 5:53 AM CDT LABORATORY-DOMINIQUE TRAL LABORATORY % NEUT 69.4 % 04/08/2022 [facility] 5:53 AM CDT LABORATORY-DOMINIQUE TRAL LABORATORY % LYMPH 15.7 % 04/08/2022 [facility] 5:53 AM CDT LABORATORY-DOMINIQUE TRAL LABORATORY % MONO 10.0 % 04/08/2022 [facility] 5:53 AM CDT LABORATORY-DOMINIQUE TRAL LABORATORY % EOS 4.1 % 04/08/2022 [facility] 5:53 AM CDT LABORATORY-DOMINIQUE TRAL LABORATORY % BASO 0.5 % 04/08/2022 [facility] 5:53 AM CDT LABORATORY-DOMINIQUE TRAL LABORATORY % IMMATURE GRAN 0.3 % 04/08/2022 [facility] (METAS,MYELOS,LA 5:53 AM CDT LABORATORY- [facility] OS) TRAL LABORATORY ABSOLUTE 4.5 1.7 - 7.0 04/08/2022 [facility] NEUTROPHILS thou/cu 5:53 AM CDT LABORATORY-DOMINIQUE mm TRAL LABORATORY ABSOLUTE 1.0 0.9 - 2.9 04/08/2022 [facility] LYMPHOCYTES thou/cu 5:53 AM CDT LABORATORY-DOMINIQUE mm TRAL LABORATORY ABSOLUTE 0.7 <0.9 04/08/2022 [facility] MONOCYTES thou/cu 5:53 AM CDT LABORATORY-DOMINIQUE mm TRAL LABORATORY ABSOLUTE 0.3 <0.5 04/08/2022 [facility] EOSINOPHILS thou/cu 5:53 AM CDT LABORATORY-DOMINIQUE mm TRAL LABORATORY ABSOLUTE 0.0 <0.3 04/08/2022 [facility] BASOPHILS thou/cu 5:53 AM CDT LABORATORY-DOMINIQUE mm TRAL LABORATORY ABSOLUTE 0.0 <0.3 04/08/2022 [facility] IMMATURE thou/cu 5:53 AM CDT LABORATORY-DOMINIQUE GRANULOCYTES(MET mm TRAL ,MYELOS,PROS) LABORATORY Specimen Anatomical Collection Method / Collection Time Recei deneen Time (Source) Location / Volume Laterality Blood BLOOD SPECIMEN / Non-Lab 04/08/2022 5:39 04/08/20 22 5:43 Unknown Venipuncture / AM CDT AM CDT Unknown Tor Raymundo Mccallum MD HEMATOLOGY Performing Organization Address City/State/ZIP Code Phon e Number [facility] [id number] [place] [address] LABORATORY-CENTRAL 2000 LABORATORY SCAN-CARDIAC STRIP (04/08/2022 1:53 AM CDT) Narrative This result has an attachment that is no t available. Scanner OTHER SCAN-CARDIAC STRIP (04/07/2022 7:43 AM CDT) Narrative This result has an attachment that is no t available. Scanner OTHER LACTATE VENOUS (04/07/2022 1:53 AM CDT)Only the most recent of4 resultswithin the time period is included. athologist Signature LACTATE,VENOUS 0.9 0.5 - 2.0 04/07/2022 [facility] mmol/L 2:26 AM CDT LABORATORY-CENT RAL LABORATORY Specimen Anatomical Collection Method / Collection Time Recei deneen Time (Source) Location / Volume Laterality Blood BLOOD SPECIMEN / Non-Lab 04/07/2022 1:53 04/07/20 22 1:59 Unknown Venipuncture / AM CDT AM CDT Unknown Dimitrios Gibson MD CHEMISTRY Performing Organization Address City/State/ZIP Code Phon e Number [facility] [phone] [place] [address] LABORATORY-CENTRAL 1999 LABORATORY Blood Culture - IMPOSER (04/06/2022 11:55 PM CDT)Only the most recent of6 results within the time period is included. athologist Signature CULTURE No Growth. 04/12/2022 [facility] Press[facility] 2:13 AM CDT LABORATORY-CENT [facility] LABORATORY Specimen Anatomical Collection Method Collection Time Receive d Time (Source) Location / / Volume Laterality Blood BLOOD SPECIMEN / Butterfly / 04/06/2022 11:55 022 Unknown Unknown PM CDT 12:26 AM CDT Narrative [facility] LABORATORY-CENTRAL LABORAT ORY - 04/12/2022 2:13 AM CDT Low volume blood culture received; possi ble false negative culture. Dimitrios Gibson MD MICROBIOLOGY Performing Organization Address City/State/ZIP Code Phon e Number [facility] [phone] [place] [address] LABORATORY-CENTRAL 1999 LABORATORY SCAN-CARDIAC STRIP (04/06/2022 11:50 PM CDT) Narrative This result has an attachment that is no t available. Scanner OTHER (ABNORMAL) Comprehensive Metabolic Panel - IMPOSER (04/06/2022 11:45 PM CDT)Only the most recent of3 resultswithin the time period is included. [facility] Method Time Signature SODIUM 139 135 - 145 04/07/2022 [facility] mmol/L 12:33 AM CDT LABORATORY-DOMINIQUE TRAL LABORATORY POTASSIUM 4.5 3.5 - 5.0 04/07/2022 [facility] mmol/L 12:33 AM CDT LABORATORY-DOMINIQUE TRAL LABORATORY CHLORIDE 107 98 - 110 04/07/2022 [facility] mmol/L 12:33 AM CDT LABORATORY-DOMINIQUE TRAL LABORATORY CO2,TOTAL 23 21 - 31 04/07/2022 [facility] mmol/L 12:33 AM CDT LABORATORY-DOMINIQUE TRAL LABORATORY ANION GAP 9 5 - 18 04/07/2022 [facility] 12:33 AM CDT LABORATORY-DOMINIQUE TRAL LABORATORY GLUCOSE 138 (H) 65 - 100 04/07/2022 [facility] mg/dL 12:33 AM CDT LABORATORY-DOMINIQUE TRAL LABORATORY CALCIUM 8.8 8.5 - 10.5 04/07/2022 [facility] mg/dL 12:33 AM CDT LABORATORY-DOMINIQUE TRAL LABORATORY BUN 13 8 - 25 04/07/2022 [facility] mg/dL 12:33 AM CDT LABORATORY-DOMINIQUE TRAL LABORATORY CREATININE 0.84 0.72 - 04/07/2022 [facility] 1.25 mg/dL 12:33 AM CDT LABORATORY-DOMINIQUE TRAL LABORATORY BUN/CREAT RATIO 15 10 - 20 04/07/2022 [facility] 12:33 AM CDT LABORATORY-DOMINIQUE TRAL LABORATORY ALBUMIN 3.2 3.2 - 4.6 04/07/2022 [facility] g/dL 12:33 AM CDT LABORATORY-DOMINIQUE TRAL LABORATORY PROTEIN,TOTAL 6.3 6.0 - 8.0 04/07/2022 [facility] g/dL 12:33 AM CDT LABORATORY-DOMINIQUE TRAL LABORATORY GLOBULIN 3.1 2.0 - 3.7 04/07/2022 [facility] g/dL 12:33 AM CDT LABORATORY-DOMINIQUE TRAL LABORATORY A/G RATIO 1.0 1.0 - 2.0 04/07/2022 [facility] 12:33 AM CDT LABORATORY-DOMINIQUE TRAL LABORATORY BILIRUBIN,TOTAL 0.9 0.2 - 1.2 04/07/2022 [facility] mg/dL 12:33 AM CDT LABORATORY-DOMINIQUE TRAL LABORATORY ALK PHOSPHATASE 81 50 - 136 04/07/2022 [facility] IU/L 12:33 AM CDT LABORATORY-DOMINIQUE TRAL LABORATORY ALT (SGPT) 7 (L) 8 - 45 04/07/2022 [facility] IU/L 12:33 AM CDT LABORATORY-DOMINIQUE TRAL LABORATORY AST (SGOT) 13 2 - 40 04/07/2022 [facility] IU/L 12:33 AM CDT LABORATORY-DOMINIQUE TRAL LABORATORY eGFR 86 (L) >90 04/07/2022 [facility] mL/min/1.7 12:33 AM CDT LABORATORY-DOMINIQUE 3m2 TRAL LABORATORY Comment: As of 2021, eGFR is calcu lated by the CKD-EPI creatinine equation without race adjustment. eGFR can be inf luenced by muscle mass, exercise, and diet. The reported eGFR is an estimation only and is only applicable if the renal function is stable. Specimen Anatomical Collection Method / Collection Time Recei deneen Time (Source) Location / Volume Laterality Blood BLOOD SPECIMEN / Non-Lab 04/06/2022 11:45 022 Unknown Venipuncture / PM CDT 11:53 PM CDT Unknown Dimitrios Gibson MD CHEMISTRY Performing Organization Address City/State/ZIP Code Phon e Number [facility] [phone] [place] [address] LABORATORY-CENTRAL 2000 LABORATORY SCAN-CARDIAC STRIP (04/06/2022 4:28 PM CDT) Narrative This result has an attachment that is no t available. Scanner OTHER SCAN-CARDIAC STRIP (04/06/2022 8:47 AM CDT) Narrative This result has an attachment that is no t available. Scanner OTHER SCAN-CARDIAC STRIP (04/05/2022 8:29 PM CDT) Narrative This result has an attachment that is no t available. Scanner OTHER CLOSTRIDIUM DIFFICILE TOXIN PCR (04/04/2022 6:53 PM CDT) [facility] Method Time Signature CLOSTRIDIUM Negative 04/04/2022 [facility] DIFFICILE PCR 9:07 PM CDT LABORATORY-DOMINIQUE TRAL LABORATORY PRESUMPTIVE NAP1 Negative 04/04[facility] 9:07 PM CDT LABORATORY-DOMINIQUE TRAL LABORATORY Specimen Anatomical Collection Method Collection Time Receive d Time (Source) Location / / Volume Laterality Stool STOOL SPECIMEN / Non-Blood / 04/04/2022 6:53 PM 04/04 6:59 Unknown Unknown CDT PM CDT Narrative [facility] LABORATORY-CENTRAL LABORAT ORY - 04/04/2022 9:07 PM CDT The NAP1 (027 or BI) strain is a hypervi rulent strain. Detection may be useful for epidemiological purposes. Dimitrios Gibson MD MICROBIOLOGY Performing Organization Address City/State/ZIP Code Phon e Number [facility] [phone] [place] [address] LABORATORY-CENTRAL 2000 LABORATORY SCAN-CARDIAC STRIP (04/04/2022 4:13 PM CDT) Narrative This result has an attachment that is no t available. Scanner OTHER SCAN-CARDIAC STRIP (04/04/2022 7:17 AM CDT) Narrative This result has an attachment that is no t available. Scanner OTHER SCAN-CARDIAC STRIP (04/04/2022 3:57 AM CDT) Narrative This result has an attachment that is no t available. Scanner OTHER stool pathogen multiplex PCR (04/04/2022 2:32 AM CDT) [facility] Method Time Signature Campylobacter NOT NOT 04/04/2022 [facility] Detected Detected 4:29 PM CDT LABORATORY-CE NTRAL LABORATORY Salmonella NOT NOT 04/04/2022 [facility] Detected Detected 4:29 PM CDT LABORATORY-CE NTRAL LABORATORY Shigella NOT NOT 04/04/2022 [facility] Detected Detected 4:29 PM CDT LABORATORY-CE NTRAL LABORATORY Vibrio NOT NOT 04/04/2022 [facility] Detected Detected 4:29 PM CDT LABORATORY-CE NTRAL LABORATORY Yersinia NOT NOT 04/04/2022 [facility] Enterocolitica Detected Detected 4:29 PM CDT LABORATORY-CE NTRAL LABORATORY Shiga Toxin 1 NOT NOT 04/04/2022 [facility] Detected Detected 4:29 PM CDT LABORATORY-CE NTRAL LABORATORY Shiga Toxin 2 NOT NOT 04/04/2022 [facility] Detected Detected 4:29 PM CDT LABORATORY-CE NTRAL LABORATORY Norovirus NOT NOT 04/04/2022 [facility] Detected Detected 4:29 PM CDT LABORATORY-CE NTRAL LABORATORY Rotavirus NOT NOT 04/04/2022 [facility] Detected Detected 4:29 PM CDT LABORATORY-CE NTRAL LABORATORY Specimen Anatomical Collection Method Collection Time Receive d Time (Source) Location / / Volume Laterality Stool STOOL SPECIMEN / Non-Blood / 04/04/2022 2:32 AM 04/04 2:48 Unknown Unknown CDT AM CDT Narrative [facility] LABORATORY-CENTRAL LABORAT ORY - 04/04/2022 4:29 PM CDT This test is a Culture Independent Diagn ostic Test (CIDT) therefore isolates are not available for susceptibility testing. ?? Antibiotic treatment is often contraindicated and may be detrimental in cases of enter ic infections, thus routine susceptibility testing is not recommended. Yasmani Gould MD MICROBIOLOGY Performing Organization Address City/State/ZIP Code Phon e Number [facility] [phone] [place] [id number] LABORATORY-CENTRAL 1999 LABORATORY (ABNORMAL) CALCIUM IONIZED HOSPITAL DRAW ONLY (04/03/2022 11:08 PM CDT) Analysis Performed At Patho logist Time Signature CALCIUM,IONIZE 1.12 (L) 1.15 - 04/03/2022 [facility] D 1.27 11:26 PM CDT LABORATORY-DOMINIQUE mmol/L TRAL LABORATORY Specimen Anatomical Collection Method / Collection Time Recei deneen Time (Source) Location / Volume Laterality Blood BLOOD SPECIMEN / Non-Lab 04/03/2022 11:08 022 Unknown Venipuncture / PM CDT 11:15 PM CDT Unknown Yasmani Gould MD CHEMISTRY Performing Organization Address City/State/ZIP Code Phon e Number [facility] [id number] [place] [address] [place] [address] LABORATORY-CENTRAL 1999 LABORATORY SCAN-CARDIAC STRIP (04/03/2022 1:32 PM CDT) Narrative This result has an attachment that is no t available. Scanner OTHER SCAN-CARDIAC STRIP (04/03/2022 1:32 PM CDT) Narrative This result has an attachment that is no t available. Scanner OTHER CT abdomen/pelvis with IV contrast TODAY (04/03/2022 1:30 PM CDT) Anatomical Region Laterality Modality Abdomen, Pelvis, AORTA, LIVER, SPLEEN Co mputed Tomography Specimen (Source) Anatomical Collection Method Collection Time Re ceived Time Location / / Volume Laterality 04/03/2022 2:06 PM CDT Impressions 04/03/2022 2:06 PM CDT 1. Layering high attenuation and overall relatively more increase in expected intraluminal contents in dilated sigmoid. Correlate with bright red blood per rectum. No significant wall thickening appreci ated or pericolonic inflammation. 2. Appropriately positioned percutaneous cholecystostomy tube. 3. Mild diffuse edema. 4. Stable complex cystic lesion posterio r right kidney. 5. Stable small pancreatic cysts. 6. Bilateral pleural effusions. Minor bi basilar atelectasis. 7. 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 No new bone finding. 8. Motion artifact mildly degrades image quality and diagnostic sensitivity. 9. Results discussed with and acknowledg ed by ordering clinician Dr. Apolinar England at 1400 04/03/22. Please note that all [facility] use dose modulation, iterative reconstruction, and/or weight-based dosing when appropriate to reduce radiation dose to as low as reasonably achievable. Dictated by Tavo Amaya MD @ 04/03/2022 2:06:11 PM (Electronically Signed) Narrative 04/03/2022 2:06 PM CDT For Patients: ??As a result of the Century Cures Act, medical imaging exams and procedure report s are released immediately into your [facility] medical record. ??You may view this report before your referring provider. ??If you have questions, please contact your health care provider. INDICATION: Right upper quadrant pain at the site of cholecystostomy tube. Abdominal distention. COMPARISON: [address] 10 Nov 2021. TECHNIQUE: 100 mL Omnipaque 350 IV contrast. Some m otion degrades image quality. FINDINGS: Small dependent bilateral pleural effusi ons and basilar passive atelectasis. Large hiatus hernia with the entirety of the stomach in the left inferior mid thorax. This does not appear obstructed or inca rcerated. Cephalad portion of the hernia selina stomach extends above the field of view. Appropriately positioned cholecystostomy tube. Chronic large cholelithiasis density above this. Some smaller layering stones and sludge. Some mild pericholec ystic edema. Diffuse soft tissue edema. A small amount of fluid in the presacral space. Upper normal caliber of the sigmoid colon. Redundant colon. Normal caliber small bowel. Layering high attenuation in the dependent dilated rectosigmoid colon. No other areas of apparent enteric contrast. Elongated right lobe of the liver extends into the pelvis. Ectatic aorta and iliacs with prominent atherosclerot ic calcification. Left hip prosthesis. 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 Significant levoscoliosis. Chronic destructive distortion of contou r likely sequela of neuropathic or chronic diskitis at L1-2. 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 Benign renal cysts on the left. Apparent solid and cystic slightly increased from com parison mass in the posterior midpole ri ght kidney with adjacent calcification at the base. Greatest diameter 2.6 cm (image 69 series 2). Two small roughly 1 cm cystic foci in the body of the pancreas ( image 34 and 39 series 2). No ductal dil atation or inflammation. Procedure Note Tavo Amaya MD - 04/03/2022Fo rmatting of this note might be different from the original. For Patients: As a result of the ntury Cures Act, medical imaging exams and procedure reports are released immediately into your electronic medical record. You may view this report before your referring provider. If you have questions, please contact [facility] care provider. INDICATION: Right upper quadrant pain at the site of cholecystostomy tube. Abdominal distention. COMPARISON: [address] 10 Nov 2021. TECHNIQUE: 100 mL Omnipaque 350 IV contrast. Some m otion degrades image quality. FINDINGS: Small dependent bilateral pleural effusi ons and basilar passive atelectasis. Large hiatus hernia with the entirety of the stomach in the left inferior mid thorax. This does not appear obstructed or incarcerated. Cephalad portion of the herniated stomac h extends above the field of view. Appropriately positioned cholecystostomy tube. Chronic large cholelithiasis density above this. Some smaller layering stones and sludge. Some mild pericholecystic edema. Diffuse soft tissue edema. A small amount of fluid in the presacral space. Upper normal caliber of the sigmoid colon. Redundant colon. Normal caliber small bowel. Layering high attenuation in the dependent dilated rec tosigmoid colon. No other areas of apparent enteric contrast. Elongated right lobe of the liver extends into the pelvis. Ectatic aorta and iliacs with prominent atherosclerotic calcification. Left hip prosthesis. Mode rate severe osteoarthritis right hip. Chronic severe degenerative disc disease. Significant levoscoliosis. Chronic destructive distortion of contou r likely sequela of neuropathic or chronic diskitis at L1-2. 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 Benign renal cysts on the left. Apparent solid and cystic slightly increased from comparison mass in the posterior midpole right kidney with gerardo cent calcification at the base. Greatest diameter 2.6 cm (image 69 series 2). Two small roughly 1 cm cystic foci in the body of the pancreas (image 34 and 39 series 2). No ductal dilatation or inflammation. IMPRESSION: 1. Layering high attenuation and overall relatively more increase in expected intraluminal contents in dilated sigmoid. Correlate with bright red blood per rectum. No significant wall thickening appreciated or pericolonic inflammation. 2. Appropriately positioned percutaneous cholecystostomy tube. 3. Mild diffuse edema. 4. Stable complex cystic lesion posterio r right kidney. 5. Stable small pancreatic cysts. 6. Bilateral pleural effusions. Minor bi basilar atelectasis. 7. 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 No new bone finding. 8. Motion artifact mildly degrades image quality and diagnostic sensitivity. 9. Results discussed with and acknowledg ed by ordering clinician Dr. Apolinar England at 1400 04/03/22. Please note that all CT scans at this fa [facility] use dose modulation, iterative reconstruction, and/or weight-based dosing when appropriate to reduce radiation dose to as low as reasonably achievable. Dictated by Tavo Amaya MD @ 04/03/2022 2:06:11 PM (Electronically Signed) Yasmani Gould MD CT SCAN-CARDIAC STRIP (04/03/2022 8:14 AM CDT) Narrative This result has an attachment that is no t available. Scanner OTHER (ABNORMAL) Hepatic function panel FOR ADD ON (04/03/2022 6:39 AM CDT) [facility] gist Method Time Signature ALBUMIN 2.7 (L) 3.2 - 4.6 04/03/2022 [facility] g/dL 1:31 PM CDT LABORATORY-DOMINIQUE TRAL LABORATORY PROTEIN,TOTAL 5.1 (L) 6.0 - 8.0 04/03/2022 [facility] g/dL 1:31 PM CDT LABORATORY-DOMINIQUE TRAL LABORATORY GLOBULIN 2.4 2.0 - 3.7 04/03/2022 [facility] g/dL 1:31 PM CDT LABORATORY-DOMINIQUE TRAL LABORATORY A/G RATIO 1.1 1.0 - 2.0 04/03/2022 [facility] 1:31 PM CDT LABORATORY-DOMINIQUE TRAL LABORATORY BILIRUBIN,TOTAL 1.1 0.2 - 1.2 04/03/2022 [facility] mg/dL 1:31 PM CDT LABORATORY-DOMINIQUE TRAL LABORATORY BILIRUBIN,DIRECT 0.6 (H) 0.1 - 0.5 04/03/2022 [facility] mg/dL 1:31 PM CDT LABORATORY-DOMINIQUE TRAL LABORATORY BILIRUBIN,INDIRE 0.5 0.2 - 0.8 04/03/[address] [facility] [address] mg/dL 1:31 PM CDT LABORATORY-DOMINIQUE TRAL LABORATORY ALK PHOSPHATASE 72 50 - 136 04/03/2022 [facility] IU/L 1:31 PM CDT LABORATORY-DOMINIQUE TRAL LABORATORY ALT (SGPT) 8 8 - 45 04/03/2022 [facility] IU/L 1:31 PM CDT LABORATORY-DOMINIQUE TRAL LABORATORY AST (SGOT) 13 2 - 40 04/03/2022 [facility] IU/L 1:31 PM CDT LABORATORY-DOMINIQUE TRAL LABORATORY Specimen Anatomical Collection Method Collection Time Receive d Time (Source) Location / / Volume Laterality Blood BLOOD SPECIMEN / Line/Port / 04/03/2022 6:39 AM 04/03 6:51 Unknown Unknown CDT AM CDT Yasmani Gould MD CHEMISTRY Performing Organization Address City/State/ZIP Code Phon e Number [facility] [phone] [place] [address] LABORATORY-CENTRAL 2000 LABORATORY SCAN-CARDIAC STRIP (04/02/2022 7:30 PM CDT) Narrative This result has an attachment that is no t available. Scanner OTHER SCAN-CARDIAC STRIP (04/02/2022 3:57 PM CDT) Narrative This result has an attachment that is no t available. Scanner OTHER SCAN-CARDIAC STRIP (04/02/2022 7:34 AM CDT) Narrative This result has an attachment that is no t available. Scanner OTHER (ABNORMAL) Creatinine AM (04/02/2022 3:52 AM CDT)Only the most recent of2 resultswithin the time period is included. athologist Signature CREATININE 0.65 (L) 0.72 - 04/02/2022 [facility] 1.25 mg/dL 4:19 AM CDT LABORATORY-CENT RAL LABORATORY eGFR >90 >90 04/02/2022 [facility] mL/min/1.7 4:19 AM CDT LABORATORY-CENT 3m2 RAL LABORATORY Comment: As of 2021, eGFR is calcu lated by the CKD-EPI creatinine equation without race adjustment. eGFR can be inf luenced by muscle mass, exercise, and diet. The reported eGFR is an estimation only and is only applicable if the renal function is stable. Specimen Anatomical Collection Method / Collection Time Recei deneen Time (Source) Location / Volume Laterality Blood BLOOD SPECIMEN / Non-Lab 04/02/2022 3:52 04/02/20 22 3:59 Unknown Venipuncture / AM CDT AM CDT Unknown Ines Howard MD CHEMISTRY Performing Organization Address City/State/ZIP Code Phon e Number [facility] [phone] [place] [address] LABORATORY-CENTRAL 1999 LABORATORY (ABNORMAL) Electrolyte panel AM (04/02/2022 3:52 AM CDT)Only the most recent of2 resultswithin the time period is included. athologist Signature SODIUM 138 135 - 145 04/02/2022 [facility] mmol/L 4:17 AM CDT LABORATORY-CENTR AL LABORATORY POTASSIUM 3.6 3.5 - 5.0 04/02/2022 [facility] mmol/L 4:17 AM CDT LABORATORY-CENTR AL LABORATORY CHLORIDE 105 98 - 110 04/02/2022 [facility] mmol/L 4:17 AM CDT LABORATORY-CENTR AL LABORATORY CO2,TOTAL 29 21 - 31 04/02/2022 [facility] mmol/L 4:17 AM CDT LABORATORY-CENTR AL LABORATORY ANION GAP 4 (L) 5 - 18 04/02/2022 [facility] 4:17 AM CDT LABORATORY-CENTR AL LABORATORY Specimen Anatomical Collection Method / Collection Time Recei deneen Time (Source) Location / Volume Laterality Blood BLOOD SPECIMEN / Non-Lab 04/02/2022 3:52 04/02/20 22 3:59 Unknown Venipuncture / AM CDT AM CDT Unknown Ines Howard MD CHEMISTRY Performing Organization Address City/State/ZIP Code Phon e Number [facility] [address] [place] [address] LABORATORY-CENTRAL 2000 LABORATORY SCAN-CARDIAC STRIP (04/02/2022 2:08 AM CDT) Narrative This result has an attachment that is no t available. Scanner OTHER SCAN-CARDIAC STRIP (04/01/2022 5:07 PM CDT) Narrative This result has an attachment that is no t available. Scanner OTHER SCAN-CARDIAC STRIP (04/01/2022 12:24 AM CDT) Narrative This result has an attachment that is no t available. Scanner OTHER COVID 19 (03/31/2022 4:30 PM CDT) Analysis Performed At Patho logist Time Signature COVID 19 Negative Negative 03/31/2022 [facility] 7:57 PM CDT LABORATORY-DOMINIQUE MOLECULAR TRAL LABORATORY Comment: All PCR tests are subject to fa lse negative result due to variability in viral load and collection technique. A n egative result does not rule out a SARS-CoV-2 infection. Clinical correlation required . Specimen Anatomical Location / Collection Method Collection Efren e Received Time (Source) Laterality / Volume Other SPECIMEN FROM Non-Blood / 03/31/2022 4:30 03/31/2022 6:22 NASOPHARYNGEAL Unknown PM CDT PM CDT STRUCTURE / Unknown Narrative [facility] LABORATORY-CENTRAL LABORAT ORY - 03/31/2022 7:57 PM CDT This test has been authorized by FDA und er an Emergency Use Authorization (EUA). This test is only authorized for the duration of time the declaration that circumstances exist justifying the authorization of th e emergency use of in vitro diagnostic tests for detection of SARS-CoV-2 virus and/or diagnosis of COVID-19 infection under section 564(b)(1) of the Act, 21 U.S.C. 360bbb-3(b) (1), unless the authorization is terminated or revoked sooner. Ines Howard MD MICROBIOLOGY Performing Organization Address City/State/ZIP Code Phon e Number [facility] [phone] [place] [address] LABORATORY-CENTRAL 2000 LABORATORY (ABNORMAL) GLUCOSE METER (03/31/2022 12:22 PM CDT) P athologist Signature GLUCOSE METER 144 (H) 65 - 100 03/31/2022 [facility] mg/dL 12:24 PM CDT LABORATORY-DOMINIQUE TRAL LABORATORY Specimen Anatomical Collection Method Collection Time Receive d Time (Source) Location / / Volume Laterality Blood BLOOD SPECIMEN / 03/31/2022 12:22 022 Unknown PM CDT 12:24 PM CDT Ines Howard MD CHEMISTRY Performing Organization Address City/[facility]/ZIP Code Phon e Number [facility] [phone] [place] [address] [place] [address] LABORATORY-CENTRAL 2000 LABORATORY SCAN-CARDIAC STRIP (03/31/2022 7:30 AM CDT) Narrative This result has an attachment that is no t available. Scanner OTHER SCAN-CARDIAC STRIP (03/30/2022 8:09 PM CDT) Narrative This result has an attachment that is no t available. Scanner OTHER XR Chest 1 view portable (03/30/2022 2:59 PM CDT)Only the most recent of2 resultswithin the time period is included. Anatomical Region Laterality Modality HEART, THORAX, CHEST Digital Radiography Specimen (Source) Anatomical Collection Method Collection Time Re ceived Time Location / / Volume Laterality 03/30/2022 3:20 PM CDT Impressions 03/30/2022 3:20 PM CDT Bibasilar atelectasis. No acute consolidation. Dictated by Aaron Vargas MD @ Mar 30 2 ??3:20PM (Electronically Signed) ?? Narrative 03/30/2022 3:20 PM CDT For Patients: ??As a result of the Cures Act, medical imaging exams and procedure report s are released immediately into your [facility] medical record. ??You may view this report before your referring provider. ??If you have questions, please contact your health care provider. INDICATION: Cough. TECHNIQUE: Chest 1 views. COMPARISON: Chest radiograph 03/27/2022. FINDINGS: Cardiovascular and mediastinum: ??Heart size and vasculature are normal in caliber and appearance. ??Stable left chest wall pacemaker. Lungs and pleural spaces: ??Bibasilar at electasis. No acute consolidation. No pneumothorax or large pleural effusion. Bones and soft tissues: ??No acute osseo us findings. Spinal stimulator device projects over the midthoracic spine. Partially imaged cervical fusion hardware.. Procedure Note Aaron Vargas, DO - 03/30/2022For matting of this note might be different from the original. For Patients: As a result of the ntury Cures Act, medical imaging exams and procedure reports are released immediately into your electronic medical record. You may view this report before your referring provider. If you have questions, please contact yo health care provider. INDICATION: Cough. TECHNIQUE: Chest 1 views. COMPARISON: Chest radiograph 03/27/2022. FINDINGS: Cardiovascular and mediastinum: Heart si ze and vasculature are normal in caliber and appearance. Stable left chest wall pacemaker. Lungs and pleural spaces: Bibasilar atel ectasis. No acute consolidation. No pneumothorax or large pleural effusion. Bones and soft tissues: No acute osseous findings. Spinal stimulator device projects over the midthoracic spine. Partially imaged cervical fusion hardware.. IMPRESSION: Bibasilar atelectasis. No acute consolid ation. Dictated by Aaron Vargas MD @ Mar 30 3:20PM (Electronically Signed) Ines Howard MD GENERAL IMAGING SCAN-CARDIAC STRIP (03/30/2022 12:52 PM CDT) Narrative This result has an attachment that is no t available. Scanner OTHER SCAN-CARDIAC STRIP (03/30/2022 3:22 AM CDT) Narrative This result has an attachment that is no t available. Scanner OTHER SCAN-CARDIAC STRIP (03/29/2022 5:46 PM CDT) Narrative This result has an attachment that is no t available. Scanner OTHER SCAN-CARDIAC STRIP (03/29/2022 7:27 AM CDT) Narrative This result has an attachment that is no t available. Scanner OTHER (ABNORMAL) PLATELET COUNT (03/29/2022 5:35 AM CDT)Only the most recent of3 resultswithin the time period is included. Analysis Performed At Patho logist Time Signature PLATELET COUNT 297 140 - 440 03/29/2022 [facility] thou/cu mm 5:56 AM CDT LABORATORY-DOMINIQUE TRAL LABORATORY MPV 11.3 (H) 6.5 - 11.0 [facility] LAB[facility]AT[facility]-DOMINIQUE TRAL LABORATORY Specimen Anatomical Collection Method / Collection Time Recei deneen Time (Source) Location / Volume Laterality Blood BLOOD SPECIMEN / Non-Lab 03/29/2022 5:35 03/29/20 5:53 Unknown Venipuncture / AM CDT AM CDT Unknown Narrative [facility] LABORATORY-[facility] - 03/29/2022 5:56 AM CDT Every morning while on IV heparin. Necessary every morning while on IV hepa rin. Margarito Washington DO HEMATOLOGY Performing Organization Address City/State/ZIP Code Phon e Number [facility] [address] [place] [address] LABORATORY-CENTRAL 1999 LABORATORY (ABNORMAL) APTT (03/29/2022 5:35 AM CDT)Only the most recent of5 resultswithin the time period is included. P athologist Signature APTT 84 (H) 24 - 33 sec 03/29/2022 [facility] 6:07 AM CDT LABORATORY-CENT RAL LABORATORY Specimen Anatomical Collection Method / Collection Time Recei deneen Time (Source) Location / Volume Laterality Blood BLOOD SPECIMEN / Non-Lab 03/29/2022 5:35 03/29/20 5:53 Unknown Venipuncture / AM CDT AM CDT Unknown Narrative [facility] - 03/29/2022 6:07 AM CDT Therapeutic Range: 70-95 seconds Ines Howard MD HEMATOLOGY Performing Organization Address City/State/ZIP Code Phon e Number [facility] [address] [place] [address] LABORATORY-CENTRAL 2000 LABORATORY SCAN CORRESP-DIAGNOSTICS (03/29/2022 12:00 AM CDT) Narrative 03/29/2022 12:00 AM CDT This result has an attachment that is no t available. Ordered by an unspecified provider. Other Clinical Staff OTHER SCAN-CARDIAC STRIP (03/28/2022 8:48 PM CDT) Narrative This result has an attachment that is no t available. Scanner OTHER SCAN-CARDIAC STRIP (03/28/2022 11:49 AM CDT) Narrative This result has an attachment that is no t available. Scanner OTHER SCAN-CARDIAC STRIP (03/27/2022 6:42 PM CDT) Narrative This result has an attachment that is no t available. Scanner OTHER SCAN-CARDIAC STRIP (03/27/2022 6:42 PM CDT) Narrative This result has an attachment that is no t available. Scanner OTHER SCAN-CARDIAC STRIP (03/27/2022 4:17 PM CDT) Narrative This result has an attachment that is no t available. Scanner OTHER PACER ANALYSIS MULTI CHAMBER WITHOUT REPROGRAM (03/27/2022 10:01 AM CDT) Narrative Skip Harris MD - 03/27/2022 10:0 1 AM CDT Will Little RN ? 03/27/2022 10:10 AM PACEMAKER EVALUATION REPORT March 27, 2022 ?? Indication for Pacemaker:??Sinus Node Dy sfunction, Cardiomyopathy Primary MD:??Yocasta Mckeon MD Primary Foot And Ankle Surgeon:??Teresa Diaz MD Implanting MD:??Skip Harris MD ?? DEVICE DATA Submersible Pilot??Medtronic:?Model Percep ta Quad TRAY SETTER-P MRI SureScan ??SN: [id number] ?Implant Date 022 LEAD DATA Atrial Lead: Submersible Pilot??Medtronic:?Model 5076-52??cm ??SN: [id number]?Implant Date 11/03/2021 RV Lead: Submersible Pilot??Medtronic:??Model 3830-69??cm ??SN: [id number]?Implant Date 11/03/2021 LV Lead: Submersible Pilot??Medtronic:??Model 4798-88??cm ??SN: [id number]?Implant Date 11/03/2021 ?? Visit location: [facility] Reason For Evaluation: Per MD request ?? MEASUREMENTS Atrial Sensing - P wave: 1.8 mV Atrial Capture: 0.75 V @ 0.4 ms Atrial Lead Impedance: 456 ohms ?? Ventricular Sensing - R wave: 14.5 mV RV Capture: 0.75 V @ 0.4 ms LV Capture: 1 V @ 0.4 ms Ventricular Lead Impedance: Right - 608 ohms ??Left - 342 ohms ?? Presenting/underlying Rhythm: ??Sinus Rh ythm ~ 64 bpm w/ first degree AVB ?? DIAGNOSTIC DATA - since 03/20/2022 Atrial paced: 57.6%, Total TRAY SETTER paced:98. 2% (BiV: 97.3%, LV: 0.3%) + 0.6% from VSR ?Effective: 98.1% Atrial Episodes: none Associated symptoms: na Ventricular Episodes (detects >150 bpm x 4 beats): 12 episode of VT with rates ~ 167 - 207 bpm lasting up to ~ 10 minutes in duration all occurring on 03/25/22 from 9 :22am - 9:34 am ? Associated symptoms: patient reports feeling fatigues Last EF: 45% per ECHO on 11/10/21 Histogram: appropriate heart rate distri bution Magnet rate: 85 bpm ??Battery voltage: 3 .07 V ??Estimated battery longevity: 9.8 years ?? FINAL PARAMETERS Mode: DDDR ??Lower rate: 60 bpm ??Upper rate: 120/120 bpm ??AV Delay: 170/140 ??Ms adaptive BIV and LV LV> RV auto ?Mode Switch: 171 bpm ??Rate Response: low 3/3 Atrial - Amplitude: adaptive 2.25 V ??Pu lse width: 0.4 ms ?? Sensitivity: 0.3 mV ??Refractory: auto m s ??Polarity: Bipolar Right Ventricular - Amplitude: adaptive 2.25V ??Pulse width: 0.4 ms ??Sensitivity: 0.9 mV ?? Polarity: Bi polar Left Ventricular - Amplitude: adaptive a uto + 1.75 V ??Pulse width: 0.4 ms ?Vector: LV2> LV3 ?? Changes made: Device temporarily reprogr ammed, iterative adjustments made during interrogation/te sting. No permanent changes made ?? Conclusion: Normal pacemaker function. 1 2 episode of VT with rates ~ 167 - 207 bpm lasting up to ~ 10 minutes in duration all occurring on 03/25/22 from 9:22am - 9:34 am ?? Follow up: 4 month remote provided. 06/15 Routine follow up: q 3-4 month remote w/ annual clinic ~ February [place]. ?? Will Little RN Nurse Clinician II I Pacemaker/ICD Skip Harris MD CARDIAC SERVICES ORD SCAN-CARDIAC STRIP (03/27/2022 8:12 AM CDT) Narrative This result has an attachment that is no t available. Scanner OTHER SCAN-CARDIAC STRIP (03/27/2022 2:49 AM CDT) Narrative This result has an attachment that is no t available. Scanner OTHER (ABNORMAL) PROTIME-INR (03/27/2022 1:34 AM CDT) P athologist Signature INR 1.3 (H) <1.3 03/27/2022 [facility] 1:51 AM CDT LABORATORY-[facility] LABORATORY PROTIME 15.7 (H) 12.0 - 13.8 03/27/2022 [facility] sec 1:51 AM CDT LABORATORY-[facility] LABORATORY Specimen Anatomical Collection Method Collection Time Receive d Time (Source) Location / / Volume Laterality Blood BLOOD SPECIMEN / Butterfly / 03/27/2022 1:34 AM 03/27 1:39 Unknown Unknown CDT AM CDT Narrative [facility] LABORATORY-CENTRAL LABORAT ORY - 03/27/2022 1:51 AM CDT ?Therapeutic Range 2.0-3.0 for most anticoagulated patients 2.5-3.5 or 4.0 for high risk patients The INR is only used for patients on sta ble oral anticoagulant therapy. It makes no significant contribution to the diagnosis or treatment of patients whose Protime is prolonged f or other reasons. INR results are increased when heparin l evels exceed 1.0 U/mL, which corresponds to an aPTT >125 seconds if the patient is on UFH. Margarito Washington DO HEMATOLOGY Performing Organization Address City/State/ZIP Code Phon e Number [facility] [address] [place] [address] LABORATORY-CENTRAL 1999 LABORATORY ECHO COMPLETE WO CONTRAST (03/15/2022 1:59 PM CDT) P athologist Signature EJECTION 44 % FRACTION PEAK TR 2.5 m/s VELOCITY LVEDD 5.3 cm Anatomical Region Laterality Modality HEART Ultrasound Specimen (Source) Anatomical Collection Method Collection Time Re ceived Time Location / / Volume Laterality 03/15/2022 12:26 PM CDT Narrative 03/15/2022 3:18 PM CDT ECHOCARDIOGRAM SIMON ESCOBAR ?Accessio n#: ?? [id number] : ?1935 86 years Study Date: ?? 03/15/2022 12:26:52 PM Gender: M ? BP: ? 142/69 mmHg Height: 170.00 cm ? BSA: ?1.92 m? ?? Weight: 80.00 kg ?Tech: ? MJJ ?Riaz jolley MD: WHIT BOWLING Site: ? [facility] Reading Location: [place] Procedure: 2D, Color Doppler and Spectra l Doppler. Indication for study: Cardiomyopathy (HC ) [I42.9 (ICD-10-CM)] NSTEMI (non-ST elevated myocardial infar ction) Cardiac Rhythm: Regular.Study quality: Imaging limitations: This study was subj ect to imaging limitations due to lack of cooperation and pacemaker leads present. Final Impressions: 1. Normal left ventricular size, modera tely increased wall thickness, mildly reduced global systolic function, calculated EF of 44 %. 2. Inferior wall and posterior wall are abnormal. 3. Moderately enlarged left atrium. 4. Grade 1 pattern of LV diastolic fill ing. 5. The mitral valve is normal, mild clover ral regurgitation. 6. Compared to the prior study of , the estimated right sided pressures are normal on the current study. Chamber Sizes and Function Normal left ventricular size, moderately increased wall thickness, mildly reduced global systolic function, calculated EF of 44 %. Left atrial size is moderately enlarged. Right ventricular cavity size is normal, global systolic RV function i s normal. RV wall thickness is normal. The right atrium is mildly enlarged. Right atrial volume index is 40 ml/m? ??. Right atrial area is 24 cm? ??. The pulmonar y artery is of normal size and origin. T he sinus of Valsalva is normal sized. The ascending aorta is normal sized. The inferior wall and posterior wall are akinetic. Valves, RV Pressures and Diastolic Funct ion The aortic valve is normal in structure and trileaflet, no stenosis and no regurgitation. The mitral valve is normal in structure, mild mitral regurgitation. Spectral Doppler shows Grade 1 pattern of LV diastolic filling. The tricuspid valve is normal in structure. Tricuspid regurgitation is trace regurgitation. The tricuspid regurgitant velocity is 2.5 m/s, the estimated right ventricular systolic pr essure is 24 mmHg plus right atrial pres sure. There is normal estimated pulmonary pressure by tricuspid regurgitation velocity and right atrial pressure. The pulmonic valve is normal. Mild pulmonary regurgitation. Masses, Effusion, Shunts There is no pericardial effusion. The in ferior vena cava is normal sized, respiratory size variation greater than 50%. No left to right shunting was detected by limited color flow Doppler interrogation of the interatrial septum. MEASUREMENTS AND CALCULATIONS 2-D Measurements and LV Function: LVID (d) 5.3 cm Planimetered EF 44 % LVID (s) 4.5 cm LV FS% (2D) ? 15 % IVS (d) ??1.8 cm LVOT diameter ?? 2.0 cm LVPW (d) 1.3 cm HR ?9 8 bpm Ao Sinus 3.8 cm LA Vol index ?28 ml/ m2 Asc Ao ?? 3.5 cm RA Vol index ?40 ml /m2 LA ? 5.1 cm RA area ? 2 4 cm?RV Max 4C (d) ?? 4.4 cm Diastology: Mitral ?Tissue Doppler ?Pulmonary veins E Peak 1.0 m/s ??e', Septum ? 0.11 m /s Pulm s ?81.0 cm/s A Peak 1.0 m/s ??e', Lateral ?0.08 m /s Pulm d ?66.1 cm/s E/A ?0.9 ?E/e' Average ?? 10. 25 ?Pulm s/d ratio ??1.23 DT ? 171 msec IVRT ?? 50 msec Aortic Valve: LVOT V max 0.7 m/s ??CO 3.7 l/min LVOT VTI ?? 0.12 m ?? CI 2.0 l/min/m? ?? SV ? 38 ml SV index ?? 20 ml/m? ?? Mitral Valve: MVA ?4.4 cm? ?? MV P 1/2 50 msec Tricuspid Valve and estimated PA pressur es: TR Vmax 2.5 m/s TAPSE 2.4 cm TR maxG 24 mmHg Pulmonic Valve: PIEDV 1.5 m/s . This study was interpreted by an [facility] redited facility. CC: [facility] [place], Med/ Surg - IP [facility]. ??Final ?? Procedure Note Jona Edwards MD - 03/15/2022Formatt ing of this note might be different from the original. ECHOCARDIOGRAM SIMON ESCOBAR : 1935 86 years Study Date: 12:26:52 PM Gender: M BP: 142/69 mmHg Height: 170.00 cm BSA: 1.92 m? ?? Weight: 80.00 kg Tech: ELLEN Referring MD: WHIT BOWLING Site: [facility] Reading Location: [place] Procedure: 2D, Color Doppler and Spectra l Doppler. Indication for study: Cardiomyopathy (HC ) [I42.9 (ICD-10-CM)] NSTEMI (non-ST elevated myocardial infar ction) Cardiac Rhythm: Regular.Study quality: Imaging limitations: This study was subj ect to imaging limitations due to lack of cooperation and pacemaker leads present. Final Impressions: 1. Normal left ventricular size, modera tely increased wall thickness, mildly reduced global systolic function, calculated EF of 44 %. 2. Inferior wall and posterior wall are abnormal. 3. Moderately enlarged left atrium. 4. Grade 1 pattern of LV diastolic fill ing. 5. The mitral valve is normal, mild clover ral regurgitation. 6. Compared to the prior study of , the estimated right sided pressures are normal on the current study. Chamber Sizes and Function Normal left ventricular size, moderately increased wall thickness, mildly reduced global systolic function, calculated EF of 44 %. Left atrial size is moderately enlarged. Right ventricular cavity size is normal, global systolic RV function is normal. RV wall thickness is normal. The right atrium is mildly enlarged. Right atrial volume index is 40 ml/m? ??. Right atrial area is 24 cm? ??. The pulmonary artery is of normal size and origin. The sinus of Valsalva is normal sized. T he ascending aorta is normal sized. The inferior wall and posterior wall are akinetic. Valves, RV Pressures and Diastolic Funct ion The aortic valve is normal in structure and trileaflet, no stenosis and no regurgitation. The mitral valve is normal in structure, mild mitral regurgitation. Spectral Doppler shows Grade 1 pattern of LV diastolic filling. The tricuspid valve is normal i n structure. Tricuspid regurgitation is trace regurgitation. The tricuspid regurgitant velocity is 2.5 m/s, the estimated right ventricular systolic pressure is 24 mmHg plus right atrial pressure. There is nor mal estimated pulmonary pressure by tricuspid regurgitation velocity and right atrial pressure. The pulmonic valve is normal. Mild pulmonary regurgitation. Masses, Effusion, Shunts There is no pericardial effusion. The in ferior vena cava is normal sized, respiratory size variation greater than 50%. No left to right shunting was detected by limited color flow Doppler interrogation of the interatrial septum. MEASUREMENTS AND CALCULATIONS 2-D Measurements and LV Function: LVID (d) 5.3 cm Planimetered EF 44 % LVID (s) 4.5 cm LV FS% (2D) 15 % IVS (d) 1.8 cm LVOT diameter 2.0 cm LVPW (d) 1.3 cm HR 98 bpm Ao Sinus 3.8 cm LA Vol index 28 ml/m2 Asc Ao 3.5 cm RA Vol index 40 ml/m2 LA 5.1 cm RA area 24 cm? ?? RV Max 4C (d) 4.4 cm Diastology: Mitral Tissue Doppler Pulmonary veins E Peak 1.0 m/s e', Septum 0.11 m/s Pulm s 81.0 cm/s A Peak 1.0 m/s e', Lateral 0.08 m/s Pulm d 66.1 cm/s E/A 0.9 E/e' Average 10.25 Pulm s/d rati o 1.23 DT 171 msec IVRT 50 msec Aortic Valve: LVOT V max 0.7 m/s CO 3.7 l/min LVOT VTI 0.12 m CI 2.0 l/min/m? ?? SV 38 ml SV index 20 ml/m? ?? Mitral Valve: MVA 4.4 cm? ?? MV P 1/2 50 msec Tricuspid Valve and estimated PA pressur es: TR Vmax 2.5 m/s TAPSE 2.4 cm TR maxG 24 mmHg Pulmonic Valve: PIEDV 1.5 m/s . This study was interpreted by an [facility] facility. CC: [facility] [place], [facility]/ Surg - IP [facility]. Final Whit Bowling MD ECHO ORD from Last 3 Months Insurance Payer Benefit Plan / Subscriber ID Effective Dates Phone Addre ss Type Group MEDICARE PART MEDICARE PART [id number] 2002-[place] AT [place]: CLAIMS B - HB USE B HB ONLY t [address] [place] [address] MEDICARE PART MEDICARE PART [id number] 2002-[place]en AT [place]: CLAIMS A - HB USE A HB ONLY t [address] ONLY [facility] [place] [address] BLUE CROSS BLUE CROSS [id number] 2016-Presen [address] [address] [address] [place], [place] ONLY [id number] MEDICARE PPS HC MEDICARE [id number] Effective for [address] PPS all dates [address] [place] [address] BLUE CROSS MR BLUE CROSS [id number] 2016-Presen [address] [address] [address] [place], [place] ONLY [id number] Advance Directives Latest Code Status on File Code Status Date Activated Date Inactivated Comments Full Code 03/27/2022 12:47 AM 04/17/2022 4:55 PM Code Status Discussion: Reviewed Preferences Full Code 03/28/2018 8:11 AM 03/28/2018 3:32 PM Full Code 03/28/2018 8:11 AM 03/28/2018 8:11 AM Full Code 12/10/2016 1:35 PM 12/11/2016 3:05 AM Full Code 09/04/2016 6:56 AM 09/05/2016 3:02 PM Code Status Discussion: Discussed Care Teams Manufacturer'S Representative Relationship Specialty Start Date End Date Yocasta Mckeon MD PCP - General Family Practice 08/02/[address] [place] [address] Deirdre Bedolla MD 10/27/15 [facility], [place], [facility] 09/05/16
--- OUTSIDE RECORDS SUMMARY | 2022-06-07 20:52 | XMS_ITS | Encounter Summary ---
:1935 Author Organization [employer] Address [address] [address] Phone Care Team Providers Name Role Phone Shanice Zarco MD Unavailable Chuy Falcon MD Unavailable Will Dubois MD Unavailable Yehuda Quintero MD Unavailable Agustín Ross MD Unavailable Kendall Mckeon MD Primary Care Provider Reason for Visit Reason Comments Refill Request rOPINIRole (REQUIP)-MSG-REFU SED Encounter Details Date Type Department Care Team Description 06/07/2017 [facility] FAMILY MEDICINE Rima Mosher MD (rOPINIRole 2023 [facility] eet [address] (REQUIP)-MSG-REFUSED ) [place] [address] [place], [place] [address] (Wo rk) Social History Tobacco Use Types Packs/Day Years Used Date Smoking Tobacco: Never Smokeless Tobacco: Never Alcohol Use Standard Drinks/Week Comments No 0 (1 standard drink = 0.6 oz pure alcoho l) Sex Assigned at Date Recorded Not on file documented as of this encounter Functional Status Functional Status Response Date of Assessment Patient's Vision Adequate to Safely Complete Daily No 04/10/2015 Activities Patient's Memory Adequate to Safely Complete Daily No 11/17/2014 Activities Cognitive Status Response Date of Assessment Patient's Judgment Adequate to Safely Complete Daily No 04/10/2015 Activities documented as of this encounter Miscellaneous Notes Telephone Encounter - Hayley Peguero RN - 06/10/2017 3:13 PM CST Calling to notify Bill that Rima Bedolla MD would like him to go to his new doctor tohave this refilled. He has moved. I do see he has previous meds refused so perhaps he already knows. [employer] Telephone Encounter - Hayley Peguero RN - 06/10/2017 3:05 PM CST Images from the original note were not included. Rima Bedolla MD ??You 5 hours ago (9:07 AM) Should go to his new doctor, he moved. (Routing comment) [employer] Telephone Encounter - Hayley Peguero RN - 06/09/2017 3:03 PM CST Rima Bedolla MD, Nurse Care Line is unable to refill this medication per the 2017 [facility] Medication Refill Standing Orders. Office visit with you on 02.19.17. He has been seen by you 3 times in the last year. Does have a different Dr listed as PCP. Would you like to authorize this request? Office visit with Rima Bedolla on 02.19.17. [employer] Telephone Encounter - Utility, Refill Wizard - 06/07/2017 10:51 AM CST rOPINIRole (REQUIP) 0.25 MG tablet [Pharmacy Med Name: ROPINIROLE HCL 0.25 MG TABLET] Protocol: Restless Leg Syndrome -> A qualifying visit was not found within the last 2 years. Last qualifying visit: None Next scheduled visit: None Last ordered by RIMA BEDOLLA K: 07/01/2016 (341 days ago) QTY: 270, Refills: 2, Sig: take 1 tablet by mouth 3 times daily (unchanged) Last fill date from pharmacy: 12/25/2016 PATIENT IS DUE FOR: - BMP for celecoxib (CELEBREX) 200 MG capsule (Sent to RX Scheduling on 05/18/2017) - OFFICE VISIT for multiple medications including atenolol (TENORMIN) 25 MG tablet (Sent to RX Scheduling on 05/18/2017) Powered by [employer], Reference: [id number], 06/07/2017 10:51:19 AM Yanick ROGERS: KLEVER ([id number]) [employer] documented in this encounter Plan of Treatment Not on filedocumented as of this encounter Goals Goal Patient Goal Associated Recent Patient-Stated? 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 Note: Formatting of this note might be d ifferent from the original. Had spinal cord stimulator leads adjuste d in July 2014 and you said that you noticed some improvement. Dr. Cristobal recommended starting tramadol at bedtime at last appointment, and to try getting in a pool/swimming 3-4 days per week to see if that helps. documented as of this encounter Visit Diagnoses Not on filedocumented in this encounter Care Teams Veneer Jointer Offbearer Relationship Specialty Start Date End Date Kendall Mckeon MD PCP - General Family Medicine 01/04/17 Shanice Zarco MD Physician Other Ophthalmology 10/05/[address] [place] [phone] Chuy Falcon MD Physician Other Cardiology 07/16/14 [address] [place], [place] [id number] Will Dubois MD Physician Other Dermatology 09/21/14 [facility] [address] [place] [phone] Yehuda Quintero MD Physician Other Pain Management 11/02/14 [facility] [address] [facility] [address] [place] [address] Agustín Ross MD Physician Other Orthopedic Surgery 11/02/14 [facility] [address] [address] Marshal Acosta Other Dental Product Development Director 10/05/13 [address] [place], [place] [id number] Dr Posey Other Audiology 10/05/13 [place], [place] documented as of this encounter
--- OUTSIDE RECORDS SUMMARY | 2022-06-07 20:52 | XMS_ITS | Encounter Summary ---
:1935 Author Organization [employer] Address [address] [address] Phone Care Team Providers Name Role Phone Shanice Zarco MD Unavailable Chuy Falcon MD Unavailable Will Dubois MD Unavailable Yehuda Quintero MD Unavailable Agustín Ross MD Unavailable Kendall Mckeon MD Primary Care Provider Reason for Visit Reason Comments Refill Request NON [facility] PCP Encounter Details Date Type Department Care Team Description 03/22/2017 Refill [facility] Riaz Bedolla efpacheco Request (NON FAMILY MEDICINE eDirdre Mosher MD [facility] PCP) 2023 [facility] [address] [address] [place], [place] [address] (Wo rk) Social History Tobacco Use Types [...] this encounter Miscellaneous Notes Telephone Encounter - July Arredondo RN - 03/23/2017 7:48 AM CDT The patient has moved and no longer sees Dr. Cristobal, per the telephone encounter on 01/04/17. Rx refused. Telephone Encounter - Utility, Refill Carmenzard - 03/22/2017 5:28 PM CDT atenolol (TENORMIN) 25 MG tablet [Pharmacy Med Name: ATENOLOL 25 MG TABLET] Protocol: Hypertension 2 -> FOR ALL ANTIHYPERTENSIVES: The goal for??patients 18-59 with or without diabetes and with or without cardiovascular disease is < 140/90 The goal for patients 60-85 years with diabetes, cardiovascular disease or chronic kidney disease is < 140/90 The goal for patients 60-85 years without diabetes, cardiovascular disease or chronic kidney disease is < 150/90 Office Visit required every 6 months if goal not met. -> A qualifying visit was not found within the last 2 years. -> SBP is abnormal (145 mm Hg is greater than 139.0 mm Hg) Last qualifying visit: None Next scheduled visit: None Last ordered by DEIRDRE BEDOLLA K: 11/18/2016 (124 days ago) QTY: 90, Refills: 0, Sig: takeone tablet by mouth one time a day (unchanged) SBP: 145 mm Hg on 02/20/2016 DBP: 81 mm Hg on 02/20/2016 PATIENT IS DUE FOR: - BMP for celecoxib (CELEBREX) 200 MG capsule (Sent to RW RX Scheduling on 02/15/2017) - OFFICE VISIT for multiple medications including atenolol (TENORMIN) 25 MG tablet (Sent to RX Scheduling on 02/15/2017) Powered by [employer], Reference: [id number], 03/22/2017 5:27:58 PM CDT, Pool: KLEVER ([id number]) documented in this encounter Plan of Treatment Not on filedocumented as of this encounter Goals Goal Patient Goal Associated Recent Patient-Stated? 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 Note: Formatting of this [...] on filedocumented in this encounter Care Teams Esol Teacher Assistant Relationship Specialty Start Date End Date Kendall Mckeon MD PCP - General Family Medicine 01/04/17 Shanice Zarco MD Physician Other Ophthalmology 10/05/[address] [place] [phone] Chuy Falcon MD Physician Other Cardiology 07/16/[address] [place] [address] Will Dubois MD Physician Other Dermatology 09/21/14 [facility] [address] [place] [phone] Yehuda Quintero MD Physician Other Pain Management 11/02/14 [facility] 9550 [facility] 100 [place], [place] [address] Agustín Ross MD Physician Other Orthopedic Surgery 11/02/14 [facility] [address] [place] [address] [place] [address] Marshal Acosat Other Dental Garage Construction Equipment Mechanic 10/05/[address] [place] [address] [address] Posey Other Audiology 10/05/13 [place], [place] documented as of this encounter
--- OUTSIDE RECORDS SUMMARY | 2022-06-07 20:52 | XMS_ITS | Encounter Summary ---
:1935 Author Organization [employer] Address [address] [address] Phone Care Team Providers Name Role Phone Shanice Zarco MD Unavailable Chuy Falcon MD Unavailable Will Dubois MD Unavailable Yehuda Quintero MD Unavailable Agustín Ross MD Unavailable Kendall Mckeon MD Primary Care Provider Reason for Visit Reason Comments Refill Request NON [facility] PCP Encounter Details Date Type Department Care Team Description 03/22/2017 Refill [facility] Riaz Bedolla efpacheco Request (NON FAMILY MEDICINE Rima Mosher MD [facility] PCP) 2023 [facility] [address] [address] [place], [place] [address] (Wo rk) Social History Tobacco Use Types [...] Encounter - July Arredondo RN - 03/23/2017 7:49 AM CDT The patient has moved and no longer sees Dr. Cristobal, per the telephone encounter on 01/04/17. Rx refused. Telephone Encounter - Utility, Refill Wizard - 03/22/2017 5:28 PM CDT FLUoxetine (PROZAC) 40 MG capsule [Pharmacy Med Name: FLUOXETINE HCL 40 MG CAPSULE] Protocol: Depression -> A qualifying visit was not found within the last 2 years. Last qualifying visit: None Next scheduled visit: None Last ordered by RIMA BEDOLLA K: 03/13/2016 (374 days ago) QTY: 90, Refills: 3, Sig: takeone capsule by mouth one time daily (changed but equivalent) PHQ-9: Not found PATIENT IS DUE FOR: - BMP for celecoxib (CELEBREX) 200 MG capsule (Sent to RX Scheduling on 02/15/2017) - OFFICE VISIT for multiple medications including atenolol (TENORMIN) 25 MG tablet (Sent to RX Scheduling on 02/15/2017) Powered by [employer], Reference: [id number], 03/22/2017 5:27:58 PM CDT, Pool: KLEVER ([id number]) pantoprazole (PROTONIX) 40 MG delayed-release tablet [Pharmacy Med Name: PANTOPRAZOLE SOD DR 40 MG TAB] Protocol: Gastrointestinal -> A qualifying visit was not found within the last 2 years. Last qualifying visit: None Next scheduled visit: None Last ordered by RIMA BEDOLLA: 12/03/2016 (109 days ago) QTY: 90, Refills: 0, Sig: takeone tablet by mouth one time daily do not crush (unchanged) PATIENT IS DUE FOR: - BMP for celecoxib (CELEBREX) 200 MG capsule (Sent to RX Scheduling on 02/15/2017) - OFFICE VISIT for multiple medications including atenolol (TENORMIN) 25 MG tablet (Sent to RX Scheduling on 02/15/2017) Powered by [employer], Reference: [id number], 03/22/2017 5:27:58 PM CDT, Pool: NCL ([id number]) rOPINIRole (REQUIP) 0.25 MG tablet [Pharmacy Med Name: ROPINIROLE HCL 0.25 MG TABLET] Protocol: Restless Leg Syndrome -> A qualifying visit was not found within the last 2 years. Last qualifying visit: None Next scheduled visit: None Last ordered by RIMA BEDOLLA K: 07/01/2016 (264 days ago) QTY: 270, Refills: 2, Sig: take 1 tablet by mouth 3 times daily (unchanged) PATIENT IS DUE FOR: - BMP for celecoxib (CELEBREX) 200 MG capsule (Sent to RW RX Scheduling on 02/15/2017) - OFFICE VISIT for multiple medications including atenolol (TENORMIN) 25 MG tablet (Sent to RW RX Scheduling on 02/15/2017) Powered by [employer], Reference: [id number], 03/22/2017 5:27:58 PM CDT, Pool: KLEVER [id number]) tamsulosin (FLOMAX) 0.4 MG 24 hour capsule [Pharmacy Med Name: TAMSULOSIN HCL 0.4 MG CAPSULE] Protocol: Prostate & Bladder Agents -> A qualifying visit was not found within the last 2 years. Last qualifying visit: None Next scheduled visit: None Last ordered by RIMA BEDOLLA K: 11/18/2016 (124 days ago) QTY: 90, Refills: 0, Sig: take1 cap by mouth one time a day. swallow whole do not crush, chew, open or split. (unchanged) Last fill date from pharmacy: 11/18/2016 PATIENT IS DUE FOR: - BMP for celecoxib (CELEBREX) 200 MG capsule (Sent to RW RX Scheduling on 02/15/2017) - OFFICE VISIT for multiple medications including atenolol (TENORMIN) 25 MG tablet (Sent to RW RX Scheduling on 02/15/2017) Powered by [employer], Reference: [id number], 03/22/2017 5:27:58 PM CDT, Pool: KLEVER ([id number]) documented in this encounter Plan of Treatment Not on filedocumented as of this encounter Goals Goal Patient Goal Associated Recent Patient-Stated? 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 Note: Formatting of this [...] on filedocumented in this encounter Care Teams Director Of Broadcast Relationship Specialty Start Date End Date Kendall Mckeon MD PCP - General Family Medicine 01/04/17 Shanice Zarco MD Physician Other Ophthalmology 10/05/[address] [place] [phone] Chuy Falcon MD Physician Other Cardiology 07/16/[address] [place] [address] Will Dubois MD Physician Other Dermatology 09/21/14 [facility] [address] [place] [phone] Yehuda Quintero MD Physician Other Pain Management 11/02/14 [facility] 0663 [facility] 100 [place] [address] Agustín Ross MD Physician Other Orthopedic Surgery 11/02/14 [facility] [address] [place] [place] [address] Marshal Acosta Other Dental Lining Caser 10/05/[address] [place] [phone] Posey Other Audiology 10/05/13 [place], [place] documented as of this encounter
--- OUTSIDE RECORDS SUMMARY | 2022-06-07 20:52 | XMS_ITS | Encounter Summary ---
:1935 Author Organization [employer] Address [address] [address] Phone Care Team Providers Name Role Phone Shanice Zarco MD Unavailable Chuy Falcon MD Unavailable Will Dubois MD Unavailable Yehuda Quintero MD Unavailable Agustín Ross MD Unavailable Kendall Mckeon MD Primary Care Provider Reason for Visit Reason Comments Refill Request NON [facility] PCP Encounter Details Date Type Department Care Team Description 04/10/2017 Refill [facility] Riaz Bedolla efpacheco Request (NON FAMILY MEDICINE Rima Mosher MD [facility] PCP) 2023 [facility] [address] [address] [place], [place] [phone] (Wo rk) Social History Tobacco Use Types [...] Telephone Encounter - July Arredondo RN - 04/11/2017 8:37 AM CDT Non [facility] PCP. Per call to pt 03/25/17 'Patient states he has moved, and no longer sees Dr. Cristobal. ' Rx refused. Telephone Encounter - Utility, Refill Wizard - 04/10/2017 12:51 PM CDT atenolol (TENORMIN) 25 MG tablet [...] Last ordered by RIMA BEDOLLA K: 11/18/2016 (143 days ago) QTY: 90, Refills: 0, Sig: takeone tablet by mouth one time a day (unchanged) Last fill date from pharmacy: 11/18/2016 SBP: 145 mm Hg on 02/20/2016 DBP: 81 mm Hg on 02/20/2016 PATIENT IS DUE FOR: - BMP for celecoxib (CELEBREX) 200 MG capsule (Sent to RW RX Scheduling on 02/15/2017) - OFFICE VISIT for multiple medications including atenolol (TENORMIN) 25 MG tablet (Sent to RW RX Scheduling on 02/15/2017) Powered by [employer], Reference: [id number], 04/10/2017 12:51:46 PM CDT, Pool: KLEVER ([id number]) documented in this encounter Plan of Treatment Not on filedocumented as of this encounter Goals Goal Patient Goal Associated Recent Patient-Stated? 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 Note: Formatting of this [...] on filedocumented in this encounter Care Teams Rehab Services Aide Relationship Specialty Start Date End Date Kendall Mckeon MD PCP - General Family Medicine 01/04/17 Shanice Zarco MD Physician Other Ophthalmology 10/05/[address] [place] [phone] Chuy Falcon MD Physician Other Cardiology 07/16/[address] [place] [address] Will Dubois MD Physician Other Dermatology 09/21/14 [facility] [address] [place] [phone] Yehuda Quintero MD Physician Other Pain Management 11/02/14 [facility] 9550 [facility] 100 [place], [place] [address] Agustín Ross MD Physician Other Orthopedic Surgery 11/02/14 [facility] [address] [facility] 201 [place] [address] Marshal Acosta Other Dental Roustabout Crew Leader 10/05/[address] [place] [phone] Posey Other Audiology 10/05/13 [place], [place] documented as of this encounter
--- OUTSIDE RECORDS SUMMARY | 2022-06-07 20:52 | XMS_ITS | Encounter Summary ---
:1935 Author Organization [employer] Address [address] [address] Phone Care Team Providers Name Role Phone Rima Bedolla MD Primary Care Provider [phone] Shanice Zarco MD Unavailable Chuy Falcon MD Unavailable Will Dubois MD Unavailable Yehuda Quintero MD Unavailable Agustín Ross MD Unavailable Reason for Visit Reason Comments Refill Request celebrex-refused Encounter Details Date Type Department Care Team Description 11/17/2016 Refill [facility] Riaz Bedlola efpacheco Request FAMILY MEDICINE Rima Mosher MD (celebrex-refused) 2023 [facility] [address] [address] [place], [place] [address] (Wo rk) Social History Tobacco Use Types [...] this encounter Miscellaneous Notes Telephone Encounter - Latonya Cortez RN - 11/18/2016 11:20 AM CDT Refusal sent electronically to the listed pharmacy.Requesting refill too early. Has refills through 02-19-17. Telephone Encounter - Utility, Refill Wizard - 11/17/2016 1:08 AM CDT celecoxib (CELEBREX) 200 MG capsule [Pharmacy Med Name: CELECOXIB 200 MG CAPSULE] Protocol: Osteoarthritis -> Refill x 3 months (until due for a(n) Cr check) Last qualifying visit: 02/20/2016 (with RIMA BEDOLLA) Next scheduled visit: None Last ordered by RIMA BEDOLLA: 02/20/2016 (271 days ago) QTY: 90, Refills: 3, Sig: take1 cap by mouth one time a day. (unchanged) Cr: 1.07 mg/dL on 02/01/2016 Powered by [employer], Reference: [id number], 11/17/2016 1:08:52 AM CDT, Pool: KLEVER ([id number]) documented in this encounter Plan of Treatment Not on filedocumented as of this encounter Goals Goal Patient Goal Associated Recent Patient-Stated? 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 Note: Formatting of this [...] on filedocumented in this encounter Care Teams Cnc Machine Setter Relationship Specialty Start Date End Date Rima Bedolla PCP - General Family Medicine 06/04/11 01/03/17 MD [facility] [address] [phone] Shanice Zarco MD Physician Other Ophthalmology 10/05/[address] [place] [phone] Chuy Falcon MD Physician Other Cardiology 07/16/14 523 [place], [place] [phone] Will Dubois MD Physician Other Dermatology 09/21/14 [facility] [address] [place] [phone] Yehuda Quintero MD Physician Other Pain Management 11/02/14 [facility] 9550 [facility] 100 [place] [address] Agustín Ross MD Physician Other Orthopedic Surgery 11/02/14 [facility] [address] [place] [place] [address] Marshal Acosta Other Dental Bank Reconciliator 10/05/13 [address] [place] [address] Dr Posey Other Audiology 10/05/13 [place], [place] documented as of this encounter
--- OUTSIDE RECORDS SUMMARY | 2022-06-07 20:52 | XMS_ITS | Encounter Summary ---
:1935 Author Organization [employer] Address [address] [address] Phone Care Team Providers Name Role Phone Shanice Zarco MD Unavailable Chuy Falcon MD Unavailable Will Dubois MD Unavailable Yehuda Quintero MD Unavailable Agustín Ross MD Unavailable Kendall Mckeon MD Primary Care Provider Reason for Visit Reason Comments Refill Request Encounter Details Date Type Department Care Team Description 03/23/2017 Refill [facility] Mabel Bedolla Refill Request FAMILY MEDICINE MD Nomi [address] [facility] [address] [place] [address], [place] [phone] (Wo rk) Social History Tobacco Use Types [...] this encounter Miscellaneous Notes Telephone Encounter - Peri Phillips - 03/23/2017 10:23 AM CDT FLUoxetine (PROZAC) 40 MG capsule [Pharmacy Med Name: FLUOXETINE HCL 40 MG CAPSULE] Protocol: Depression -> A duplicate request was processed on 03/22/2017. -> A qualifying visit was not found within the last 2 years. Last qualifying visit: None Next scheduled visit: None Last ordered by RIMA BEDOLLA K: 03/13/2016 (375 days ago) QTY: 90, Refills: 3, Sig: takeone capsule by mouth one time daily (changed but equivalent) Last fill date from pharmacy: 12/25/2016 PHQ-9: Not found PATIENT IS DUE FOR: - BMP for celecoxib (CELEBREX) 200 MG capsule (Sent to RX Scheduling on 02/15/2017) - OFFICE VISIT for multiple medications including atenolol (TENORMIN) 25 MG tablet (Sent to RX Scheduling on 02/15/2017) Powered by [employer], Reference: [id number], 03/23/2017 10:23:24 AM CDT, Pool: KLEVER ([id number]) documented in this encounter Plan of Treatment Not on filedocumented as of this encounter Goals Goal Patient Goal Associated Recent Patient-Stated? 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 Note: Formatting of this [...] on filedocumented in this encounter Care Teams Can Marker Relationship Specialty Start Date End Date Kendall Mckeon MD PCP - General Family Medicine 01/04/17 Shanice Zarco MD Physician Other Ophthalmology 10/05/13 [address] [place] [address] Chuy Falcon MD Physician Other Cardiology 07/16/14 523 [place] [address] Will Dubois MD Physician Other Dermatology 09/21/14 [facility] [address] [place] [phone] Yehuda Quintero MD Physician Other Pain Management 11/02/14 [facility] 9550 [facility] 100 [place] [address] Agustín Ross MD Physician Other Orthopedic Surgery 11/02/14 [facility] [address] [place] [address] Marshal Acosta Other Dental Insurance Verify Rep 10/05/13 [address] [place], [place] [phone] Dr Posey Other Audiology 10/05/13 [place], [place] documented as of this encounter
--- OUTSIDE RECORDS SUMMARY | 2022-06-07 20:52 | XMS_ITS | Encounter Summary ---
:1935 Author Organization [employer] Address [address] [address] Phone Care Team Providers Name Role Phone Shanice Zarco MD Unavailable Chuy Falcon MD Unavailable Will Dubois MD Unavailable Yehuda Quintero MD Unavailable Agustín Ross MD Unavailable Kendall Mckeon MD Primary Care Provider Reason for Visit Reason Comments Refill Request Encounter Details Date Type Department Care Team Description 03/23/2017 Refill [facility] Mabel Bedolla Refill Request FAMILY MEDICINE MD Nomi 2023 [facility] [address] [address] [place], [place] [address] (Wo rk) Social History Tobacco Use Types [...] Telephone Encounter - Peri Phillips - 03/23/2017 10:20 AM CDT pantoprazole (PROTONIX) 40 MG delayed-release tablet [Pharmacy Med Name: PANTOPRAZOLE SOD DR 40 MG TAB] Protocol: Gastrointestinal -> A duplicate request was processed on 03/22/2017. -> A qualifying visit was not found within the last 2 years. Last qualifying visit: None Next scheduled visit: None Last ordered by RIMA BEDOLLA K: 12/03/2016 (110 days ago) QTY: 90, Refills: 0, Sig: takeone tablet by mouth one time daily do not crush (unchanged) Last fill date from pharmacy: 12/04/2016 PATIENT IS DUE FOR: - BMP for celecoxib (CELEBREX) 200 MG capsule (Sent to RX Scheduling on 02/15/2017) - OFFICE VISIT for multiple medications including atenolol (TENORMIN) 25 MG tablet (Sent to RX Scheduling on 02/15/2017) Powered by [employer], Reference: [id number], 03/23/2017 10:20:42 AM CDT, Pool: KLEVER ([id number]) documented in this encounter Plan of Treatment Not on filedocumented as of this encounter Goals Goal Patient Goal Associated Recent Patient-Stated? 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 Note: Formatting of this [...] on filedocumented in this encounter Care Teams Geological E Logger Relationship Specialty Start Date End Date Kendall Mckeon MD PCP - General Family Medicine 01/04/17 Shanice Zarco MD Physician Other Ophthalmology 10/05/13 [address] [place] [address] Chuy Falcon MD Physician Other Cardiology 07/16/14 523 [place] [address] Will Dubois MD Physician Other Dermatology 09/21/14 [facility] [address] [place] [phone] Yehuda Quintero MD Physician Other Pain Management 11/02/14 [facility] 9550 [facility] 100 [place], [place] [phone] Agustín Ross MD Physician Other Orthopedic Surgery 11/02/[address] [facility] [address] [place] [address] Marshal Acosta Other Dental Cover Mat Machine Operator 10/05/13 [address] [place], [place] [phone] Dr Posey Other Audiology 10/05/13 [place], [place] documented as of this encounter
--- OUTSIDE RECORDS SUMMARY | 2022-06-07 20:52 | XMS_ITS | Encounter Summary ---
:1935 Author Organization [employer] Address [address] [address] Phone Care Team Providers Name Role Phone Deirdre Bedolla MD Primary Care Provider [phone] Shanice Zarco MD Unavailable Chuy Falcon MD Unavailable Will Dubois MD Unavailable Yehuda Quintero MD Unavailable Agustín Ross MD Unavailable Reason for Visit Reason Comments Refill Request Encounter Details Date Type Department Care Team Description 11/21/2016 Refill [facility] Mabel Bedolla Refill Request FAMILY MEDICINE MD Nomi 2023 [facility] [address] [address] [place], [place] [phone] (Wo rk) Social History Tobacco Use Types [...] this encounter Miscellaneous Notes Telephone Encounter - Francisco Phillipsill Carmenmyles - 11/21/2016 9:12 AM CDT celecoxib (CELEBREX) 200 MG capsule [Pharmacy Med Name: CELECOXIB 200 MG CAPSULE] Protocol: Osteoarthritis -> A duplicate request was processed on 11/17/2016. -> Refill x 3 months (until due for a(n) Cr check) Last qualifying visit: 02/20/2016 (with DEIRDRE BEDOLLA) Next scheduled visit: None Last ordered by DEIRDRE BEDOLLA: 02/20/2016 (275 days ago) QTY: 90, Refills: 3, Sig: take1 cap by mouth one time a day. (unchanged) Last fill date from pharmacy: 08/20/2016 Cr: 1.07 mg/dL on 02/01/2016 Powered by [employer], Reference: [id number], 11/21/2016 9:12:54 AM CDT, Pool: KLEVER ([id number]) documented in this encounter Plan of Treatment Not on filedocumented as of this encounter Goals Goal Patient Goal Associated Recent Patient-Stated? 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 Note: Formatting of this [...] on filedocumented in this encounter Care Teams Raschel Knitting Machine Operator Relationship Specialty Start Date End Date Deirdre Bedolla PCP - General Family Medicine 06/04/11 01/03/17 MD [facility] [address] [address] Shanice Zarco MD Physician Other Ophthalmology 10/05/13 [address] [place] [address] Chuy Falcon MD Physician Other Cardiology 07/16/14 523 [place], [place] [phone] Will Dubois MD Physician Other Dermatology 09/21/14 [facility] [address] [place] [phone] Yehuda Quintero MD Physician Other Pain Management 11/02/14 [facility] 9550 [facility] 100 [place] [address] Agustín Ross MD Physician Other Orthopedic Surgery 11/02/14 [facility] [address] [place] [address] Marshal Acosta Other Dental Mat Roller 10/05/13 [address] [place], [place] [phone] Dr Posey Other Audiology 10/05/13 [place], [place] documented as of this encounter
--- OUTSIDE RECORDS SUMMARY | 2022-06-07 20:52 | XMS_ITS | Encounter Summary ---
:1935 Author Organization [employer] Address [address] [address] Phone Care Team Providers Name Role Phone Shanice Zarco MD Unavailable Chuy Falcon MD Unavailable Will Dubois MD Unavailable Yehuda Quintero MD Unavailable Agustín Ross MD Unavailable Kendall Mckeon MD Primary Care Provider Reason for Visit Reason Comments Refill Request NON [facility] PCP Encounter Details Date Type Department Care Team Description 02/15/2017 Refill [facility] Riaz Bedolla efpacheco Request (NON FAMILY MEDICINE Rima Mosher MD [facility] PCP) 2023 [facility] [place] [address] [address] [place], [place] [phone] (Wo rk) Social History Tobacco Use Types [...] Telephone Encounter - July Arredondo RN - 02/15/2017 8:30 AM CDT Non [facility] PCP. Per call to pt 01/04/17 '. Patient states he has moved, and no longer sees Dr. Cristobal. ' Rx refused Telephone Encounter - Utility, Refill Wizard - 02/15/2017 12:40 AM CDT tamsulosin (FLOMAX) 0.4 MG 24 hour capsule [Pharmacy Med Name: TAMSULOSIN HCL 0.4 MG CAPSULE] Protocol: Prostate & Bladder Agents -> A qualifying visit was not found within the last 2 years. Last qualifying visit: None Next scheduled visit: None Last ordered by RIMA BEDOLLA K: 11/18/2016 (89 days ago) QTY: 90, Refills: 0, Sig: take 1 cap by mouth one time a day. swallow whole do not crush, chew, open or split. (unchanged) Last fill date from pharmacy: 11/18/2016 PATIENT IS DUE FOR: - BMP for celecoxib (CELEBREX) 200 MG capsule (Sent to RW RX Scheduling) - OFFICE VISIT (Sent to RX Scheduling for multiple medications including atenolol (TENORMIN) 25 MG tablet) Powered by [employer]le[employer], Reference: [id number], 02/15/2017 12:40:26 AM CDT, Pool: KLEVER ([id number]) documented in this encounter Plan of Treatment Not on filedocumented as of this encounter Goals Goal Patient Goal Associated Recent Patient-Stated? 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 Note: Formatting of this [...] on filedocumented in this encounter Care Teams Luster Repairer Relationship Specialty Start Date End Date Kendall Mckeon MD PCP - General Family Medicine 01/04/17 Shanice Zarco MD Physician Other Ophthalmology 10/05/[address] [place] [phone] Chuy Falcon MD Physician Other Cardiology 07/16/14 [address] [place] [address] Will Dubois MD Physician Other Dermatology 09/21/14 [facility] [address] [place] [phone] Yehuda Quintero MD Physician Other Pain Management 11/02/14 [facility] 9550 [facility] 100 [place] [address] Agustín Ross MD Physician Other Orthopedic Surgery 11/02/14 [facility] [address] [phone] Marshal Acosta Other Dental Community Health Director 10/05/[address] [place] [phone] Posey Other Audiology 10/05/13 [place], [place] documented as of this encounter
--- OUTSIDE RECORDS SUMMARY | 2022-06-07 20:52 | XMS_ITS | Encounter Summary ---
:1935 Author Organization [employer] Address [address] [address] Phone Care Team Providers Name Role Phone Shanice Zarco MD Unavailable Chuy Falcon MD Unavailable Will Dubois MD Unavailable Yehuda Quintero MD Unavailable Agustín Ross MD Unavailable Kendall Mckeon MD Primary Care Provider Reason for Visit Reason Comments Refill Request NON PCP-- requip Encounter Details Date Type Department Care Team Description 03/23/2017 Refill [facility] Riaz Bedolla efill Request (NON FAMILY MEDICINE Rima Mosher MD PCP-- requip) 2023 [facility] eet [address] [place] [address] [address] [place], [place] [address] (Wo rk) Social History Tobacco Use Types [...] this encounter Miscellaneous Notes Telephone Encounter - Joan Parikh RN - 03/25/2017 11:17 PM CDT From 01-04-17 encounter CallsMilagros lange CMA ?? 01/04/17 10:40 AM Note Called patient to schedule AWV with Dr. Cristobal per note in Patient Call Back Folder. Patient states he has moved, and no longer sees Dr. Cristobal. Pharmacy note: PT IS GOING ON A TRIP ON Saturday03/27/2017. WANTS TO ENSURE HE HAS ALL HIS MEDS BEFORE LEAVING FOR THE TRIP. THANKS Telephone Encounter - Utility, Refill Wizard - 03/23/2017 10:17 AM CDT rOPINIRole (REQUIP) 0.25 MG tablet [Pharmacy Med Name: ROPINIROLE HCL 0.25 MG TABLET] Protocol: Restless Leg Syndrome -> The request contains a message from the pharmacy. -> A qualifying visit was not found within the last 2 years. Last qualifying visit: None Next scheduled visit: None Last ordered by RIMA BEDOLLA K: 07/01/2016 (265 days ago) QTY: 270, Refills: 2, Sig: take 1 tablet by mouth 3 times daily (unchanged) Last fill date from pharmacy: 12/25/2016 PATIENT IS DUE FOR: - BMP for celecoxib (CELEBREX) 200 MG capsule (Sent to RW RX Scheduling on 02/15/2017) - OFFICE VISIT for multiple medications including atenolol (TENORMIN) 25 MG tablet (Sent to RW RX Scheduling on 02/15/2017) Powered by Wall[employer], Reference: [id number], 03/23/2017 10:17:39 AM CDT, Pool: KLEVER ([id number]) documented in this encounter Plan of Treatment Not on filedocumented as of this encounter Goals Goal Patient Goal Associated Recent Patient-Stated? 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 Note: Formatting of this [...] on filedocumented in this encounter Care Teams Network Services Project Manager Relationship Specialty Start Date End Date Kendall Mckeon MD PCP - General Family Medicine 01/04/17 Shanice Zarco MD Physician Other Ophthalmology 10/05/[address] [place] [phone] Chuy Falcon MD Physician Other Cardiology 07/16/[address] [place] [address] Will Dubois MD Physician Other Dermatology 09/21/14 [facility] [address] [place] [phone] Yehuda Quintero MD Physician Other Pain Management 11/02/14 [facility] 9550 [facility] 100 [place], [place] [address] Agustín Ross MD Physician Other Orthopedic Surgery 11/02/14 [facility] [address] [place] [address] [place] [address] Marshal Acosta Other Dental Acetylene Cutter 10/05/[address] [place] [phone] Posey Other Audiology 10/05/13 [place], [place] documented as of this encounter
--- OUTSIDE RECORDS SUMMARY | 2022-06-07 20:52 | XMS_ITS | Encounter Summary ---
:1935 Author Organization [employer] Address [address] [address] Phone Care Team Providers Name Role Phone Shanice Zarco MD Unavailable Chuy Falcon MD Unavailable Will Dubois MD Unavailable Yehuda Quintero MD Unavailable Agustín Ross MD Unavailable Kendall Mckeon MD Primary Care Provider Reason for Visit Reason Comments Refill Request Encounter Details Date Type Department Care Team Description 05/18/2017 Telephone [facility] FAMILY Scheduling , Refill Refill Request MEDICINE [address] [facility] [place] [id number] Social History Tobacco Use Types Packs/Day Years [...] this encounter Miscellaneous Notes Telephone Encounter - Alexandria Dangelo - 05/24/2017 8:23 AM CST Patient has Non [facility] PCP WELL SERVICES SUPERINTENDENT Telephone Encounter - Alan Franciscopacheco [employer] - 05/18/2017 9:25 AM CST ORDER THE FOLLOWING: - BMP: Previously ordered on 12/06/2016 and will on 03/07/2018 SCHEDULE THE FOLLOWING: - OFFICE VISIT BY: Now (Due as of 06/18/2013 for multiple medications including atenolol (TENORMIN) 25 MG tablet) - BMP BY: Now (Due as of 01/26/2017 for celecoxib (CELEBREX) 200 MG capsule) - LAST QUALIFYING VISIT: None - NEXT SCHEDULED VISIT: None - NEXT LAB APPOINTMENT: None Powered by [employer], Reference: [id number], 05/18/2017 9:25:53 AM Yanick ROGERS: KLEVER ([id number]) WELL SERVICES SUPERINTENDENT documented in this encounter Plan of Treatment Not on filedocumented as of this encounter Goals Goal Patient Goal Associated Recent Patient-Stated? 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 Note: Formatting of this [...] on filedocumented in this encounter Care Teams Sprinkler Installer Relationship Specialty Start Date End Date Kendall Mckeon MD PCP - General Family Medicine 01/04/17 Shanice Zarco MD Physician Other Ophthalmology 10/05/[address] [place] [phone] Chuy Falcon MD Physician Other Cardiology 07/16/14 [address] [place], [place] [phone] Will Dubois MD Physician Other Dermatology 09/21/14 [facility] [address] [place] [phone] Yehuda Quintero MD Physician Other Pain Management 11/02/14 [facility] 9550 [facility] 100 [place] [address] Agustín Ross MD Physician Other Orthopedic Surgery 11/02/14 [facility] [address] [phone] Marshal Acosta Other Dental Mail Handler Assistant 10/05/13 [address] [place], [place] [phone] Dr Posey Other Audiology 10/05/13 [place], [place] documented as of this encounter
--- OUTSIDE RECORDS SUMMARY | 2022-06-07 20:52 | XMS_ITS | Encounter Summary ---
:1935 Author Organization [employer] Address [address] [address] Phone Care Team Providers Name Role Phone Deirdre Bedolla MD Primary Care Provider [phone] Shanice Zarco MD Unavailable Chuy Falcon MD Unavailable Will Dubois MD Unavailable Yehuda Quintero MD Unavailable Agustín Ross MD Unavailable Reason for Visit Reason Comments Refill Request refused: traMADol (ULTRAM) Encounter Details Date Type Department Care Team Description 08/23/2016 Refill [facility] Riaz Bedolla efpacheco Request FAMILY MEDICINE Deirdre Mosher MD (refused: traMADol 2023 [facility] eet [address] (ULTRAM)) [place] [address] [place] [address] [phone] (Wo rk) Social History Tobacco Use Types [...] this encounter Miscellaneous Notes Telephone Encounter - Pauline Walsh RN - 08/24/2016 2:17 PM CST Per the Opioid Refill Policy, this primary care patient needs a pain assessment office visit prior to another refill of this medication. Note from pharmacy: Not to exceed 5 additional fills before 10/31/2016. CAL OFFICE PROFESSIONAL INSTRUCTOR Telephone Encounter - Utility, Refill Wizard - 08/23/2016 11:18 AM CST traMADol (ULTRAM) 50 MG tablet [Pharmacy Med Name: TRAMADOL HCL 50 MG TABLET] Protocol: Analgesics: Opioid Agonists - Tramadol (controlled substance) Note: The request contains a message from the pharmacy. -> The requested sig has changed from the last order. -> Opioid Contract was not found within the last 5 years. Last qualifying visit: 02/20/2016 (with DEIRDRE BEDOLLA) Next scheduled visit: None Last ordered by DEIRDRE BEDOLLA: 05/04/2016 (111 days ago) QTY: 60, Refills: 0, Si-2 pills twice daily as needed for pain. (changed) Last fill date from pharmacy: 05/04/2016 Opioid Contract: Not found PATIENT IS DUE FOR: - OFFICE VISIT (Sent to RX Scheduling on 06/29/2016 for multiple medications including traMADol (ULTRAM) 50 MG tablet) Powered by [employer], Reference: [id number], 08/23/2016 11:18:25 AM MEDICAL OFFICE PROFESSIONAL INSTRUCTOR, Pool: KLEVER ([id number]) CAL OFFICE PROFESSIONAL INSTRUCTOR documented in this encounter Plan of Treatment Not on filedocumented as of this encounter Goals Goal Patient Goal Associated Recent Patient-Stated? 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 Note: Formatting of this [...] on filedocumented in this encounter Care Teams Venetian Blind Assembler Relationship Specialty Start Date End Date Deirdre Bedolla PCP - General Family Medicine 06/04/11 01/03/17 MD [facility] [address] [phone] Shanice Zarco MD Physician Other Ophthalmology 10/05/[address] [place] [phone] Chuy Falcon MD Physician Other Cardiology 07/16/14 [address] [place], [place] [phone] Will Dubois MD Physician Other Dermatology 09/21/14 [facility] [address] [place] [phone] Yehuda Quintero MD Physician Other Pain Management 11/02/14 [facility] [address] [place] [address] Agustín Ross MD Physician Other Orthopedic Surgery 11/02/14 [facility] [address] [phone] Marshal Acosta Other Dental Information Writer 10/05/[address] [place] [phone] Posey Other Audiology 10/05/13 [place], [place] documented as of this encounter
--- OUTSIDE RECORDS SUMMARY | 2022-06-07 20:52 | XMS_ITS | Encounter Summary ---
:1935 Author Organization [employer] Address [address] [address] Phone Care Team Providers Name Role Phone Shanice Zarco MD Unavailable Chuy Falcon MD Unavailable Will Dubois MD Unavailable Yehuda Quintero MD Unavailable Agustín Ross MD Unavailable Kendall Mckeon MD Primary Care Provider Reason for Visit Reason Comments Refill Request NON [facility] PCP Encounter Details Date Type Department Care Team Description 05/18/2017 Refill [facility] Riaz Bedolla efpacheco Request (NON FAMILY MEDICINE Deirdre Mosher MD [facility] PCP) 2023 [facility] [address] [address] [place], [place] [phone] (Wo rk) Social History Tobacco Use Types [...] Telephone Encounter - July Arredondo RN - 05/20/2017 8:22 AM CST [facility]. Per call to pt 03/25/17 'Patient states he has moved, and no longer sees Dr. Cristobal. ' Rx refused. IFIED SUBSTANCE ABUSE COUNSELOR Telephone Encounter - Peri Phillips - 05/18/2017 9:25 AM CST rOPINIRole (REQUIP) 0.25 MG tablet [Pharmacy Med Name: ROPINIROLE HCL 0.25 MG TABLET] Protocol: Restless Leg Syndrome -> A qualifying visit was not found within the last 2 years. Last qualifying visit: None Next scheduled visit: None Last ordered by DEIRDRE BEDOLLA K: 07/01/2016 (321 days ago) QTY: 270, Refills: 2, Sig: take 1 tablet by mouth 3 times daily (unchanged) Last fill date from pharmacy: 12/25/2016 PATIENT IS DUE FOR: - BMP for celecoxib (CELEBREX) 200 MG capsule (Sent to RX Scheduling) - OFFICE VISIT for multiple medications including atenolol (TENORMIN) 25 MG tablet (Sent to RX Scheduling) Powered by Auto[employer], Reference: [id number], 05/18/2017 9:25:52 AM KEN, Pool: KLEVER ([id number]) IFIED SUBSTANCE ABUSE COUNSELOR documented in this encounter Plan of Treatment Not on filedocumented as of this encounter Goals Goal Patient Goal Associated Recent Patient-Stated? 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 Note: Formatting of this [...] on filedocumented in this encounter Care Teams Land Leveler Relationship Specialty Start Date End Date Kendall Mckeon MD PCP - General Family Medicine 01/04/17 Shanice Zarco MD Physician Other Ophthalmology 10/05/13 [address] [place] [address] Chuy Falcon MD Physician Other Cardiology 07/16/14 [address] [place], [place] [phone] Will Dubois MD Physician Other Dermatology 09/21/14 [facility] [address] [place] [phone] Yehuda Quintero MD Physician Other Pain Management 11/02/14 [facility] 9550 [facility] 100 [place] [address] Agustín Ross MD Physician Other Orthopedic Surgery 11/02/14 [facility] [address] [address] Marshal Acosta Other Dental Guest Service Host 10/05/[address] [place] [phone] Posey Other Audiology 10/05/13 [place], [place] documented as of this encounter
--- OUTSIDE RECORDS SUMMARY | 2022-06-07 20:52 | XMS_ITS | Encounter Summary ---
:1935 Author Organization [employer] Address [address] [address] Phone Care Team Providers Name Role Phone Shanice Zarco MD Unavailable Chuy Falcon MD Unavailable Will Dubois MD Unavailable Yehuda Quinetro MD Unavailable Agustín Ross MD Unavailable Kendall Mckeon MD Primary Care Provider Reason for Visit Reason Comments Refill Request [id number] PCP Encounter Details Date Type Department Care Team Description 03/07/2017 Refill [facility] Riaz Bedolla Request FAMILY MEDICINE Deirdre Mosher MD ([id number] 2023 [facility] [address] ON- PCP) [place] [address] [place] [address] [phone] (Wo rk) Social History Tobacco Use Types [...] this encounter Miscellaneous Notes Telephone Encounter - Arlette Floyd RN - 03/07/2017 8:55 PM CDT The patient has moved and no longer sees Dr. Cristobal, per the telephone encounter on 01/04/17. Medication refused. Encounter closed. Telephone Encounter - Utility, Refill Wizard - 03/07/2017 12:45 AM CDT pantoprazole (PROTONIX) 40 MG delayed-release tablet [Pharmacy Med Name: PANTOPRAZOLE SOD DR 40 MG TAB] Protocol: Gastrointestinal -> A qualifying visit was not found within the last 2 years. Last qualifying visit: None Next scheduled visit: None Last ordered by DEIRDRE BEDOLLA K: 12/03/2016 (94 days ago) QTY: 90, Refills: 0, Sig: take one tablet by mouth one time daily do not crush (unchanged) Last fill date from pharmacy: 12/04/2016 PATIENT IS DUE FOR: - BMP for celecoxib (CELEBREX) 200 MG capsule (Sent to RX Scheduling on 02/15/2017) - OFFICE VISIT (Sent to RX Scheduling on 02/15/2017 for multiple medications including atenolol (TENORMIN) 25 MG tablet) Powered by [employer], Reference: [id number], 03/07/2017 12:44:58 AM CDT, Pool: KLEVER ([id number]) documented in this encounter Plan of Treatment Not on filedocumented as of this encounter Goals Goal Patient Goal Associated Recent Patient-Stated? 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 Note: Formatting of this [...] on filedocumented in this encounter Care Teams Diesel Technician Relationship Specialty Start Date End Date Kendall Mckeon MD PCP - General Family Medicine 01/04/17 Shanice Zarco MD Physician Other Ophthalmology 10/05/[address] [place] [phone] Chuy Falcon MD Physician Other Cardiology 07/16/14 [address] [place] [address] Will Dubois MD Physician Other Dermatology 09/21/14 [facility] [address] [place] [phone] Yehuda Quintero MD Physician Other Pain Management 11/02/14 [facility] 9150 [facility] 100 [place] [address] Agustín Ross MD Physician Other Orthopedic Surgery 11/02/14 [facility] [address] [phone] Marshal Acosta Other Dental Remote Sensing Scientist 10/05/[address] [place] [address] [address] Posey Other Audiology 10/05/13 [place], [place] documented as of this encounter
--- OUTSIDE RECORDS SUMMARY | 2022-06-07 20:52 | XMS_ITS | Encounter Summary ---
:1935 Author Organization [employer] Address [address] [address] Phone Care Team Providers Name Role Phone Rima Bedolla MD Primary Care Provider [phone] Shanice Zarco MD Unavailable Chuy Falcon MD Unavailable Will Dubois MD Unavailable Yehuda Quintero MD Unavailable Agustín Ross MD Unavailable Reason for Visit Reason Comments Refill Request refused-clopidogrel (PLAVIX) 75 MG tablet Encounter Details Date Type Department Care Team Description 10/31/[address] [facility] Riaz Bedolla efill Request FAMILY MEDICINE Rima Mosher MD (refused-clopidogrel 2023 [facility] [address] (PLAVIX) 75 MG tablet) [place] [address] [place], [place] [phone] (Wo rk) Social History Tobacco Use Types [...] this encounter Miscellaneous Notes Telephone Encounter - Mary Sosa RN - 11/02/2016 10:35 AM CDT Images from the original note were not included. Message Received: Today ? Rima Bedolla MD Class, Melissa S, RN ? Caller: Unspecified (2 days ago, ??2:01 AM) ? He moved out of town. ??I should be taken off as his primary, and this should be sent to his current physician, I believe in the [place] area. Pharmacy contacted and will send to patient's primary care provider in [place], [place]; refill request refused to the pharmacy. Resent back to site as Nurse Care Line is unable to remove providers from the patient's EMR. Telephone Encounter - Pippa Chandler RN - 10/31/2016 11:56 PM CDT Rima Bedolla MD, Nurse Care Line is unable to refill this medication per the [facility] Medication Refill Protocol. Medication refill request is for a 6 month supply. Last office visit of 02/20/2016 states: He will see me in 3 months and I probably would do labs at that time. Would you like to authorize this request? Telephone Encounter - Utility, Refill Wizard - 10/31/2016 2:03 AM CDT clopidogrel (PLAVIX) 75 MG tablet [Pharmacy Med Name: CLOPIDOGREL 75 MG TABLET] Protocol: Anticoagulants and Antiplatelets: Other -> Refill x 6 months (until due for an office visit) Last qualifying visit: 02/20/2016 (with RIMA BEDOLLA) Next scheduled visit: None Last ordered by RIMA BEDOLLA: 09/20/2015 (407 days ago) QTY: 90, Refills: 3, Sig: takeone tablet by mouth one time daily (unchanged) Last fill date from pharmacy: 08/05/2016 Powered by [employer], Reference: [id number], 10/31/2016 2:03:23 AM CDT, Pool: NCL ([id number]) documented in this encounter Plan of Treatment Not on filedocumented as of this encounter Goals Goal Patient Goal Associated Recent Patient-Stated? 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 Note: Formatting of this [...] on filedocumented in this encounter Care Teams Mortgage Consultant Relationship Specialty Start Date End Date Rima Bedolla PCP - General Family Medicine 06/04/11 01/03/17 MD [facility] [address] [phone] Shanice Zarco MD Physician Other Ophthalmology 10/05/[address] [place] [phone] Chuy Falcon MD Physician Other Cardiology 07/16/14 [address] [place] [address] Will Dubois MD Physician Other Dermatology 09/21/14 [facility] [address] [place] [phone] Yehuda Quintero MD Physician Other Pain Management 11/02/14 [facility] 9550 [facility] 100 [place] [address] Agustín Ross MD Physician Other Orthopedic Surgery 11/02/14 [facility] [address] [phone] Marshal Acosta Other Dental Proj Engineer 10/05/[address] [place], [place] [phone] Dr Posey Other Audiology 10/05/13 [place], [place] documented as of this encounter
--- OUTSIDE RECORDS SUMMARY | 2022-06-07 20:52 | XMS_ITS | Encounter Summary ---
:1935 Author Organization [employer] Address [address] [address] Phone Care Team Providers Name Role Phone Shanice Zarco MD Unavailable Chuy Falcon MD Unavailable Will Dubois MD Unavailable Yehuda Quintero MD Unavailable Agustín Ross MD Unavailable Kendall Mckeon MD Primary Care Provider Reason for Visit Reason Comments Refill Request Encounter Details Date Type Department Care Team Description 02/15/2017 Telephone [facility] FAMILY Scheduling , Refill Refill Request MEDICINE 2023 [facility] [place] [address] Social History Tobacco Use Types Packs/Day Years [...] Notes Telephone Encounter - Alexandria Dangelo - 02/20/2017 12:13 PM CDT Patient has moved and has Non [facility] PCP now Telephone Encounter - Peri Phillips - 02/15/2017 12:40 AM CDT ORDER THE FOLLOWING: - BMP: Previously ordered [...] - NEXT LAB APPOINTMENT: None Powered by Pintley, Reference: [id number], 02/15/2017 12:40:27 AM CDT, Pool: KLEVER ([id number]) documented in this encounter Plan of Treatment Not on filedocumented as of this encounter Goals Goal Patient Goal Associated Recent Patient-Stated? 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 Note: Formatting of [...] on filedocumented in this encounter Care Teams Interior Systems Carpenter Relationship Specialty Start Date End Date Kendall Mckeon MD PCP - General Family Medicine 01/04/17 Shanice Zarco MD Physician Other Ophthalmology 10/05/[address] [place] [phone] Chuy Falcon MD Physician Other Cardiology 07/16/14 [address] [place], [place] [phone] Will Dubois MD Physician Other Dermatology 09/21/14 [facility] [address] [place] [address] Yehuda Quintero MD Physician Other Pain Management 11/02/14 [facility] 9550 [facility] 100 [place], [place] [phone] Agustín Ross MD Physician Other Orthopedic Surgery 11/02/14 [facility] [address] [address] Marshal Acosta Other Dental Windows Server Specialist 10/05/13 [address] [place], [place] [address] Dr Posey Other Audiology 10/05/13 [place], [place] documented as of this encounter
--- OUTSIDE RECORDS SUMMARY | 2022-06-07 20:52 | XMS_ITS | Clinical Summary ---
:1935 Author Organization [employer] Address [address] [address] Phone Care Team Providers Name Role Phone Shanice Zarco MD Unavailable Chuy Falcon MD Unavailable Will Dubois MD Unavailable Yehuda Quintero MD Unavailable Agustín Ross MD Unavailable Kendall Mckeon MD Primary Care Provider Allergies No known active allergies Medications Medication Sig Dispensed Refills Start Date End Date Status ASPIRIN LOW DOSE 81 MG 81 mg 1 tablet, 81.000 0 08/05/2009 Active tablet ORAL, DAILY, 08/05/09 14:22:55 sennosides-docusate Take 2 Tabs by 100 Tab 0 10/10/2012 Active sodium (SENOKOT-S) mouth one time a 8.6-50 MG per tablet day. Multiple Vitamin Take 1 Tab by 100 Tab 0 12/10/2012 Active (MULTIVITAMIN) tablet mouth one time a day. polyethylene glycol MIX 17 GRAMS (ONE 527 g 11 03/31/2013 Active 3350 (MIRALAX) powder CAPFUL) IN LIQUID AND DRINK EVERY DAY FORCONSTIPATION. atorvaSTATin (LIPITOR) Take 1 Tab by 90 Tab 3 04/05/2014 Active 40 MG tablet mouth at bedtime. potassium chloride Take 15 mL by 150 mL 11 10/12/2014 Active (KAYCIEL) 20 MEQ/15ML mouth one time a (10%) liquid day. Take with food; do not take liquid full strength, must be diluted in 2-6 parts of fluid. Ascorbic Acid (VITAMIN Chew and swallow 90 Cap 3 11/07/2014 Active C) 500 MG Cap one tablet by mouth one time daily potassium chloride CR TAKE ONE TABLET BY 90 Tab 2 5 Active (K-DUR, KLOR-CON M) 20 MOUTH ONE TIME MEQ tablet DAILY amLODIPine (NORVASC) 5 TAKE ONE TABLET BY 90 Tab 3 02/19/20 15 Active MG tablet MOUTH ONE TIME DAILY finasteride (PROSCAR) TAKE ONE TABLET BY 90 Tab 0 6 Active 5 MG tablet MOUTH ONE TIME DAILY DO NOT CRUSH clopidogrel (PLAVIX) TAKE ONE TABLET BY 90 Tab 3 09/20/2015 Active 75 MG tablet MOUTH ONE TIME DAILY traMADol (ULTRAM) 50 1-2 pills twice 60 Tab 0 01/02/2016 Active MG tablet daily as needed for pain. gabapentin (NEURONTIN) TAKE TWO CAPSULES 540 Cap 2 6 Active 300 MG capsule BY MOUTH THREE TIMES DAILY celecoxib (CELEBREX) Take 1 Cap by 90 Cap 3 02/20/2016 Active 200 MG capsule mouth one time a day. FLUoxetine (PROZAC) 40 TAKE ONE CAPSULE 90 Cap 3 03/13/2016 Active MG capsule BY MOUTH ONE TIME DAILY traMADol (ULTRAM) 50 1-2 pills twice 60 Tab 0 03/14/2016 Active MG tablet daily as needed for pain. solifenacin (VESICARE) Take 1 Tab by 90 Tab 3 04/02/2016 Active 10 MG tablet mouth one time a day. traMADol (ULTRAM) 50 1-2 pills twice 60 Tab 0 05/04/2016 Active MG tablet daily as needed for pain. rOPINIRole (REQUIP) TAKE 1 TABLET BY 270 Tab 2 07/01/2016 Active 0.25 MG tablet MOUTH 3 TIMES DAILY atenolol (TENORMIN) 25 TAKE ONE TABLET BY 90 Tab 0 11/19/19 17 Active MG tablet MOUTH ONE TIME A DAY tamsulosin (FLOMAX) TAKE 1 CAP BY 90 Cap 0 11/18/2016 Active 0.4 MG 24 hour capsule MOUTH ONE TIME A DAY. SWALLOW WHOLE DO NOT CRUSH, CHEW, OPEN OR SPLIT. pantoprazole TAKE ONE TABLET BY 90 Tab 0 12/03/2016 Active (PROTONIX) 40 MG MOUTH ONE TIME delayed-release tablet DAILY DO NOT CRUSH Active Problems Problem Noted Date Anxiety 04/27/2015 History of basal cell carcinoma 11/08/2014 Overview: Added diagnosis per Deirdre Cristobal MD. Seeing Dr. Grider at [facility] See pathology report scanned under media tab. Neurogenic bladder 11/08/2014 Overview: Sees [facility] Urology department, see notes under media tab from [id number] Added diagnosis per Deirdre Cristobal MD. 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 RN installation coordinator: Jessica ulloa RN Tier Level: 1 Date: 03/23/2014 Care Score: 3 Date: 03/23/2014 SAMIR: Verbal Release of Information esperanza d to speak with Mary Ann and son Sudarshan Castillo. Expires 09/07/14. Opioid Contract: no Other physical therapy 02/18/2013 03/04/2013 Urge incontinence 02/18/2013 03/04/2013 Urinary frequency 02/18/2013 03/04/2013 Muscle weakness 02/18/2013 03/04/2013 Encounter for occupational therapy 12/28/201111/30 Aftercare following surgery of the musculoskeletal system, N EC 12/28/2011 12/01/2015 Finger stiffness 12/28/2011 12/01/2015 Other physical therapy 03/30/2011 02/18/2013 Immunizations Name Administration Dates Next Due Influenza Quad Preservative Free 04/05/2014 Influenza Seasonal Inj A,B High Dose 04/27/2015 Pneumococcal Conjugate, (Prevnar)13-valent 12/15/2014, 09/30 Pneumovax 23 04/24/2013 Tdap (7 years and older) 12/17/2014 Zoster Zostavax (Shingles) 04/29/2012 Surgical History Surgery Date Site/Laterality Comments COLONOSCOPY 05/02/2006 Sadie ADAMS, Tomy Ghotra CORONARY ANGIOPLASTY WITH STENT PLACEMENT BACK SURGERY L4 laminectomy, multiple level cervical f usion JOINT REPLACEMENT Left left hip SHOULDER SURGERY Right right rotator c uff CATARACT REMOVAL TONSILLECTOMY AND ADENOIDECTOMY APPENDECTOMY HEMORRHOID SURGERY SPINE SURGERY 10/15/2013 Spinal Cord Stim ulator (Medtronic), Dr Ramey at [facility] CMPLX CMG/VOID PRESSURE STUDY 04/07/2014 Dr Roseann Ruiz COLONOSCOPY 01/31/2011 5 yr f/u Medical History Medical History Date Comments DM type 2 (diabetes mellitus, type 2) (HCC) Hypertension 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 CAD (coronary artery disease) with histo ry of MD and stent placement Hyperlipidemia Diverticulosis Colon polyp Medical home patient encounter Social History Tobacco Use Types Packs/Day Years Used Date Smoking Tobacco: Never Smokeless Tobacco: Never Alcohol Use Standard Drinks/Week Comments No 0 (1 standard drink = 0.6 oz pure alcoho l) Sex Assigned at Date Recorded Not on file Obstetrics History Last Filed Vital Signs Vital Sign Reading Time Taken Comments Blood Pressure 148/71 04/02/2016 2:13 PM CDT Pulse 68 04/02/2016 2:13 PM CDT Temperature 37.4 ??C (99.4 ??F) 02/03/2016 10:19 AM CDT Respiratory Rate 19 04/02/2016 2:13 PM CDT Oxygen Saturation 98% 02/03/2016 10:19 AM CDT Inhaled Oxygen Concentration - - Weight 93.4 kg (206 lb) 04/02/2016 2:13 PM CDT Height 172.7 cm (5' 8) 04/02/2016 2:13 PM CDT Body Mass Index 31.32 04/02/2016 2:13 PM CDT Plan of Treatment Health Maintenance Due Date Last Done Comments Shingrix (Zoster recombinant) vaccine 06/24/2012 (Standing Order) (1 of 2) DIABETES MICROALBUMIN Q1 YEAR 03/06/2015 04/05/2014, 2012 (Standing Order) DIABETIC EYE EXAM 12/04/2015 01/03/2015, 05/21/2013, 12/17/2011 COVID-19 Vaccine (3 - Booster for 10/29/2020 09/03/2020, Pfizer series) Influenza Vaccine Seasonal (Standing 03/08/2022 04/27/2015, 04/05/2014 Order) (#1) TETANUS (Standing Order) 12/17/2024 12/17/2014, 11/17/2013 (Declined) Pneumococcal Vaccine: 65+ yrs Completed 12/15/2014, 2014, (Standing Order) 04/24/2013 PERTUSSIS (Standing Order) Completed 12/17/2014, 4 (Declined) Goals Goal Patient Goal Associated Recent Patient-Stated? 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 Note: Formatting of this note might be d ifferent from the original. Had spinal cord stimulator leads adjuste d in July 2014 and you said that you noticed some improvement. Dr. Cristobal recommended starting tramadol at bedtime at last appointment, and to try getting in a pool/swimming 3-4 days per week to see if that helps. Insurance Payer Benefit Plan Subscriber ID Effective Phone Address Typ e / Group Dates MEDICARE MEDICARE [id number] 2019-Pres [address] Medicare COST PART COST PART ent [place], [place] A&B A&B [id number] MEDICARE MEDICARE [id number] 2019-Pres [phone] WPS Medic are PART??A & B ent [id number] MEDICARE PART B [address] [place] [address] BCBS OF [place] KAIBAB [id number] 2019-Pres [phone] [address] dicare BLUE/VANTAGE ent [phone] [place] [address] Advance Directives For more information, please contact: [phone] Latest Code Status on File Code Status Date Activated Date Inactivated Comments None 09/22/2013 10:48 AM [facility] Care Teams High Reach Operator Relationship Specialty Start Date End Date Kendall Mckeon MD PCP - General Family Medicine 01/04/17 Shanice Zarco MD Physician Other Ophthalmology 10/05/13 [address] [place] [address] Chuy Falcon MD Physician Other Cardiology 07/16/14 [address] [place] [address] Will Dubois MD Physician Other Dermatology 09/21/14 [facility] [address] [place] [phone] Yehuda Quintero MD Physician Other Pain Management 11/02/14 [facility] 9550 [facility] 100 [place] [address] Agustín Ross MD Physician Other Orthopedic Surgery 11/02/14 [facility] [address] [facility] 201 [place] [phone] Marshal Acosta Other Dental Certified Nutritionist 10/05/13 [address] [place], [place] [phone] Dr Posey Other Audiology 10/05/13 [place], [place]
--- OUTSIDE RECORDS SUMMARY | 2022-06-07 20:52 | XMS_ITS | Encounter Summary ---
:1935 Author Organization [employer] Address [address] [address] Phone Care Team Providers Name Role Phone Shanice Zarco MD Unavailable Chuy Falcon MD Unavailable Will Dubois MD Unavailable Yehuda Quintero MD Unavailable Agustín Ross MD Unavailable Kendall Mckeon MD Primary Care Provider Reason for Visit Reason Onset Date Comments Appointment 01/04/2017 Encounter Details Date Type Department Care Team Description 01/04/2017 Telephone [facility] Milagros Phoenix Appointment Outpatient Pending sale to [facility] 2023 [place], [place] [phone] Social History Tobacco Use Types Packs/Day Years [...] this encounter Miscellaneous Notes Telephone Encounter - Milagros Phoenix [facility] - 01/04/2017 10:40 AM CDT Called patient to schedule AWV with Dr. Cristobal per note in Patient Call Back Folder. Patient states he has moved, and no longer sees Dr. Cristobal. documented in this encounter Plan of Treatment Not on filedocumented as of this encounter Goals Goal Patient Goal Associated Recent Patient-Stated? 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 Note: Formatting of this [...] on filedocumented in this encounter Care Teams Strategic Sourcing Manager Relationship Specialty Start Date End Date Kendall Mckeon MD PCP - General Family Medicine 01/04/17 Shanice Zarco MD Physician Other Ophthalmology 10/05/[address] [place] [phone] Chuy Falcon MD Physician Other Cardiology 07/16/[address] [place] [address] Will Dubois MD Physician Other Dermatology 09/21/14 [facility] [address] [place] [phone] Yehuda Quintero MD Physician Other Pain Management 11/02/14 [facility] [address] [address] Agustín Ross MD Physician Other Orthopedic Surgery 11/02/14 [facility] [address] [place] [address] [place] [address] Marshal Acosta Other Dental Inventory Clerk 10/05/[address] [place] [address] [address] [address] Posey Other Audiology 10/05/13 [place], [place] documented as of this encounter
--- OUTSIDE RECORDS SUMMARY | 2022-06-07 20:52 | XMS_ITS | Encounter Summary ---
:1935 Author Organization [email or web address] Address [address] [address] Phone Care Team Providers Name Role Phone Rima Bedolla MD Primary Care Provider [phone] Shanice Zarco MD Unavailable Chuy Falcon MD Unavailable Will Dubois MD Unavailable Yehuda Quintero MD Unavailable Agustín Ross MD Unavailable Reason for Visit Reason Comments Refill Request pantoprazole Encounter Details Date Type Department Care Team Description 12/02/2016 Refill [facility] Riaz Bedolla efpacheco Request FAMILY MEDICINE Rima Mosher MD (pantoprazole ) 2023 [facility] [address] [address] [place], [place] [phone] (Wo rk) Social History Tobacco Use Types [...] 04/10/2015 Activities documented as of this encounter Ordered Prescriptions Prescription Sig Dispensed Refills Start Date End Date pantoprazole (PROTONIX) 40 TAKE ONE TABLET BY 90 Tab 0 0 12/03/2016 MG delayed-release tablet MOUTH ONE TIME DAILY DO NOT CRUSH documented in this encounter Miscellaneous Notes Telephone Encounter - Marixa Roberts RN - 12/03/2016 5:35 PM CDT I have reviewed the documentation related to this refill. This refill request is Ok to authorize per the [facility] Medication Refill Protocol. Telephone Encounter - Utility, Refill Wizard - 12/02/2016 12:17 AM CDT pantoprazole (PROTONIX) 40 MG delayed-release tablet [Pharmacy Med Name: PANTOPRAZOLE SOD DR 40 MG TAB] Protocol: Gastrointestinal -> Refill x 3 months (until due for an office visit) Last qualifying visit: 02/20/2016 (with RIMA BEDOLLA) Next scheduled visit: None Last ordered by RIMA BEDOLLA: 02/02/2016 (304 days ago) QTY: 90, Refills: 2, Sig: takeone tablet by mouth one time daily do not crush (unchanged) Last fill date from pharmacy: 09/01/2016 PATIENT IS DUE FOR: - BMP for multiple medications including celecoxib (CELEBREX) 200 MG capsule (Sent to RX Scheduling) Powered by Shahiya, Reference: [id number], 12/02/2016 12:17:02 AM CDT, Pool: KLEVER ([id number]) documented in this encounter Plan of Treatment Not on filedocumented as of this encounter Goals Goal Patient Goal Associated Recent Patient-Stated? 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 Note: Formatting of this [...] Diagnoses Not on filedocumented in this encounter Discontinued Medications Medication Sig Discontinue Reason Start Date End Date pantoprazole (PROTONIX) TAKE ONE TABLET BY 02/02/2016 12/02/2016 40 MG delayed-release MOUTH ONE TIME tablet DAILY DO NOT CRUSH documented as of this encounter Care Teams Body Maker Machine Setter Relationship Specialty Start Date End Date Rima Bedolla PCP - General Family Medicine 06/04/11 01/03/17 MD [facility] [address] [address] Shanice Zarco MD Physician Other Ophthalmology 10/05/[address] [place] [phone] Chuy Falcon MD Physician Other Cardiology 07/16/14 [address] [place] [address] Will Dubois MD Physician Other Dermatology 09/21/14 [facility] [address] [place] [phone] Yehuda Quintero MD Physician Other Pain Management 11/02/14 [facility] 9550 [facility] 100 [place], [place] [address] Agustín Ross MD Physician Other Orthopedic Surgery 11/02/14 [facility] [address] [place] [address] [place] [address] Marshal Acosta Other Dental Distribution Associate 10/05/[address] [place] [address] [address] [address] Posey Other Audiology 10/05/13 [place], [place] documented as of this encounter
--- OUTSIDE RECORDS SUMMARY | 2022-06-07 20:52 | XMS_ITS | Encounter Summary ---
:1935 Author Organization [employer] Address [address] [address] Phone Care Team Providers Name Role Phone Rima Bedolla MD Primary Care Provider [phone] Shanice Zarco MD Unavailable Chuy Falcon MD Unavailable Will Dubois MD Unavailable Yehuda Quintero MD Unavailable Agustín Ross MD Unavailable Reason for Visit Reason Comments Refill Request ov/lab due February, letter se nt Encounter Details Date Type Department Care Team Description 12/02/2016 Telephone [facility] Scheduling, Refil l Refill Request (ov/lab FAMILY MEDICINE due February, letter [address] sent) [place], [place] [phone] Social History Tobacco Use Types Packs/Day Years [...] this encounter Miscellaneous Notes Telephone Encounter - Mckayla Wilson CMA - 12/06/2016 2:15 PM CDT A letter or [employer] message was sent to patient at this time. Lab placed. Telephone Encounter - Peri Phillips - 12/02/2016 12:17 AM CDT ORDER THE FOLLOWING: - BMP: Pended to encounter. SCHEDULE THE FOLLOWING: - BMP BY: 01/26/2017 (Coming due as of 01/26/2017 for multiple medications including celecoxib (CELEBREX) 200 MG capsule) - LAST QUALIFYING VISIT WITH RIMA BEDOLLA K: 02/20/2016 - NEXT SCHEDULED VISIT: None - NEXT LAB APPOINTMENT: None Powered by [employer], Reference: [id number], 12/02/2016 12:17:02 AM CDT, Pool: KLEVER ([id number]) documented in this encounter Plan of Treatment Not on filedocumented as of this encounter Goals Goal Patient Goal Associated Recent Patient-Stated? 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 Note: Formatting of [...] documented as of this encounter Visit Diagnoses Diagnosis Medication management - Primary Encounter for other specified aftercare documented in this encounter Care Teams Assembler Musical Instruments Relationship Specialty Start Date End Date Rima Bedolla PCP - General Family Medicine 06/04/11 01/03/17 MD [facility] [address] [address] Shanice Zarco MD Physician Other Ophthalmology 10/05/[address] [place] [phone] Chuy Falcon MD Physician Other Cardiology 07/16/14 [address] [place], [place] [phone] Will Dubois MD Physician Other Dermatology 09/21/14 [facility] [address] [place] [phone] Yehuda Quintero MD Physician Other Pain Management 11/02/14 [facility] 9550 [facility] 100 [place] [address] Agustín Ross MD Physician Other Orthopedic Surgery 11/02/14 [facility] [address] [place] [address] [place] [phone] Marshal Acosta Other Dental Staff Pharmacist Hospital 10/05/13 [address] [place], [place] [address] Dr Posey Other Audiology 10/05/13 [place], [place] documented as of this encounter
--- OUTSIDE RECORDS SUMMARY | 2022-06-07 20:52 | XMS_ITS | Encounter Summary ---
:1935 Author Organization [employer] Address [address] [address] Phone Care Team Providers Name Role Phone Shanice Zarco MD Unavailable Chuy Falcon MD Unavailable Will Dubois MD Unavailable Yehuda Quintero MD Unavailable Agustín Ross MD Unavailable Kendall Mckeon MD Primary Care Provider Reason for Visit Reason Comments Refill Request NON [facility] PCP Encounter Details Date Type Department Care Team Description 04/10/2017 Refill [facility] Riaz Bedolla efpacheco Request (NON FAMILY MEDICINE Rima Mosher MD [facility] PCP) 2023 [facility] [address] [address] [place], [place] [address] (Wo rk) Social History Tobacco Use Types [...] Encounter - July Arredondo RN - 04/11/2017 8:40 AM CDT Non [facility] PCP. Per call to pt 03/25/17 'Patient states he has moved, and no longer sees Dr. Cristobal. ' ??Rx refused. Telephone Encounter - Utility, Refill Wizard - 04/10/2017 12:50 PM CDT FLUoxetine (PROZAC) 40 MG capsule [Pharmacy Med Name: FLUOXETINE HCL 40 MG CAPSULE] Protocol: Depression -> A qualifying visit was not found within the last 2 years. Last qualifying visit: None Next scheduled visit: None Last ordered by RIMA BEDOLLA K: 03/13/2016 (393 days ago) QTY: 90, Refills: 3, Sig: takeone capsule by mouth one time daily (changed but equivalent) PHQ-9: Not found PATIENT IS DUE FOR: - BMP for celecoxib (CELEBREX) 200 MG capsule (Sent to RX Scheduling on 02/15/2017) - OFFICE VISIT for multiple medications including atenolol (TENORMIN) 25 MG tablet (Sent to RX Scheduling on 02/15/2017) Powered by [employer], Reference: [id number], 04/10/2017 12:50:11 PM CDT, Pool: KLEVER ([id number]) rOPINIRole (REQUIP) 0.25 MG tablet [Pharmacy Med Name: ROPINIROLE HCL 0.25 MG TABLET] Protocol: Restless Leg Syndrome -> A qualifying visit was not found within the last 2 years. Last qualifying visit: None Next scheduled visit: None Last ordered by RIMA BEDOLLA K: 07/01/2016 (283 days ago) QTY: 270, Refills: 2, Sig: take 1 tablet by mouth 3 times daily (unchanged) Last fill date from pharmacy: 12/25/2016 PATIENT IS DUE FOR: - BMP for celecoxib (CELEBREX) 200 MG capsule (Sent to RX Scheduling on 02/15/2017) - OFFICE VISIT for multiple medications including atenolol (TENORMIN) 25 MG tablet (Sent to RX Scheduling on 02/15/2017) Powered by [employer], Reference: [id number], 04/10/2017 12:50:11 PM CDT, Pool: KLEVER ([id number]) documented in this encounter Plan of Treatment Not on filedocumented as of this encounter Goals Goal Patient Goal Associated Recent Patient-Stated? 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 Note: Formatting of this [...] on filedocumented in this encounter Care Teams Tender Labor Relationship Specialty Start Date End Date Kendall Mckeon MD PCP - General Family Medicine 01/04/17 Shanice Zarco MD Physician Other Ophthalmology 10/05/13 [address] [place] [phone] Chuy Falcon MD Physician Other Cardiology 07/16/14 [address] [place], [place] [phone] Will Dubois MD Physician Other Dermatology 09/21/14 [facility] [address] [place] [phone] Yehuda Quintero MD Physician Other Pain Management 11/02/14 [facility] 9550 [facility] 100 [place] [address] Agustín Ross MD Physician Other Orthopedic Surgery 11/02/14 [facility] [address] [facility] 201 [place] [address] Marshal Acosta Other Dental Quality Process Lead 10/05/13 [address] [place], [place] [phone] Dr Posey Other Audiology 10/05/13 [place], [place] documented as of this encounter
--- OUTSIDE RECORDS SUMMARY | 2022-06-07 20:52 | XMS_ITS | Encounter Summary ---
:1935 Author Organization [employer] Address [address] [address] Phone Care Team Providers Name Role Phone Shanice Zarco MD Unavailable Chuy Falcon MD Unavailable Will Dubois MD Unavailable Yehuda Quintero MD Unavailable Agustín Ross MD Unavailable Kendall Mckeon MD Primary Care Provider Reason for Visit Reason Comments Refill Request Flomax Encounter Details Date Type Department Care Team Description 03/23/2017 Refill [facility] Riaz Bedolla efill Request (Flomax FAMILY MEDICINE Rima Mosher MD ) 2023 [facility] [address] [address] [place], [place] [address] (Wo rk) Social History Tobacco Use Types [...] this encounter Miscellaneous Notes Telephone Encounter - Michelle Gerber RN - 03/25/2017 10:33 PM CDT Non [facility] Provider Refusal sent electronically to the listed pharmacy. Telephone Encounter - Utility, Refill Wizard - 03/23/2017 10:11 AM CDT tamsulosin (FLOMAX) 0.4 MG 24 hour capsule [Pharmacy Med Name: TAMSULOSIN HCL 0.4 MG CAPSULE] Protocol: Prostate & Bladder Agents -> The request contains a message from the pharmacy. -> A qualifying visit was not found within the last 2 years. Last qualifying visit: None Next scheduled visit: None Last ordered by RIMA BEDOLLA K: 11/18/2016 (125 days ago) QTY: 90, Refills: 0, Sig: [...] to RX Scheduling on 02/15/2017) Powered by [employer], Reference: [id number], 03/23/2017 10:11:51 AM CDT, Pool: KLEVER ([id number]) documented in this encounter Plan of Treatment Not on filedocumented as of this encounter Goals Goal Patient Goal Associated Recent Patient-Stated? 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 Note: Formatting of this [...] on filedocumented in this encounter Care Teams Bowling Alley Manager Relationship Specialty Start Date End Date Kendall Mckeon MD PCP - General Family Medicine 01/04/17 Shanice Zarco MD Physician Other Ophthalmology 10/05/13 [address] [place] [address] Chuy Falcon MD Physician Other Cardiology 07/16/14 [address] [place] [address] Will Dubois MD Physician Other Dermatology 09/21/14 [facility] [address] [place] [phone] Yehuda Quintero MD Physician Other Pain Management 11/02/14 [facility] [address] [facility] 100 [place] [address] Agustín Ross MD Physician Other Orthopedic Surgery 11/02/14 [facility] [address] [phone] Marshal Acosta Other Dental Turbine Assembler 10/05/[address] [place] [address] [address] [address] Posey Other Audiology 10/05/13 [place], [place] documented as of this encounter
--- OUTSIDE RECORDS SUMMARY | 2022-06-07 20:52 | XMS_ITS | Encounter Summary ---
:1935 Author Organization [employer] Address [address] [address] Phone Care Team Providers Name Role Phone Shanice Zarco MD Unavailable Chuy Falcon MD Unavailable Will Dubois MD Unavailable Yehuda Quintero MD Unavailable Agustín Ross MD Unavailable Kendall Mckeon MD Primary Care Provider Reason for Visit Reason Comments Refill Request Encounter Details Date Type Department Care Team Description 03/26/2017 Refill [facility] Mabel Bedolla Refill Request FAMILY MEDICINE MD Nomi 2023 [facility] [address] [address] [place], [place] [address] (Wo rk) Social History Tobacco Use Types [...] Notes Telephone Encounter - Peri Phillips - 03/26/2017 3:20 PM CDT tamsulosin (FLOMAX) 0.4 MG 24 hour capsule [Pharmacy Med Name: TAMSULOSIN HCL 0.4 MG CAPSULE] Protocol: Prostate & Bladder Agents -> A duplicate request was processed on 03/23/2017. -> A qualifying visit was not found within the last 2 years. Last qualifying visit: None Next scheduled visit: None Last ordered by RIMA BEDOLLA K: 11/18/2016 (128 days ago) QTY: 90, Refills: 0, Sig: take1 cap by mouth one time a day. swallow whole do not crush, chew, open or split. (unchanged) PATIENT IS DUE FOR: - BMP for celecoxib (CELEBREX) 200 MG capsule (Sent to RX Scheduling on 02/15/2017) - OFFICE VISIT for multiple medications including atenolol (TENORMIN) 25 MG tablet (Sent to RX Scheduling on 02/15/2017) Powered by [employer], Reference: [id number], 03/26/2017 3:20:26 PM CDT, Pool: KLEVER ([id number]) documented in this encounter Plan of Treatment Not on filedocumented as of this encounter Goals Goal Patient Goal Associated Recent Patient-Stated? 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 Note: Formatting of this [...] on filedocumented in this encounter Care Teams Stapler Hand Relationship Specialty Start Date End Date Kendall Mckeon MD PCP - General Family Medicine 01/04/17 Shanice Zarco MD Physician Other Ophthalmology 10/05/13 [address] [place] [phone] Chuy Falcon MD Physician Other Cardiology 07/16/14 [address] [place] [address] Will Dubois MD Physician Other Dermatology 09/21/14 [facility] [address] [place] [phone] Yehuda Quintero MD Physician Other Pain Management 11/02/14 [facility] 9550 [facility] 100 [place], [place] [phone] Agustín Ross MD Physician Other Orthopedic Surgery 11/02/14 [facility] [address] [place] [address] [place] [address] Marshal Acosta Other Dental Grab Hooker 10/05/13 [address] [place], [place] [address] Dr Posey Other Audiology 10/05/13 [place], [place] documented as of this encounter
--- OUTSIDE RECORDS SUMMARY | 2022-06-07 20:52 | XMS_ITS | Encounter Summary ---
:1935 Author Organization [employer] Address [address] [address] Phone Care Team Providers Name Role Phone Shanice Zarco MD Unavailable Chuy Falcon MD Unavailable Will Dubois MD Unavailable Yehuda Quintero MD Unavailable Agustín Ross MD Unavailable Kendall Mckeon MD Primary Care Provider Reason for Visit Reason Onset Date Comments Refill Request 03/26/2017 Encounter Details Date Type Department Care Team Description 03/26/2017 Refill [facility] Jerry Haro reba Ramos LPN Refill Request MEDICINE 2023 [place], [place] [phone] Social History Tobacco Use Types Packs/Day Years [...] 04/10/2015 Activities documented as of this encounter Plan of Treatment Not on filedocumented as of this encounter Goals Goal Patient Goal Associated Recent Patient-Stated? 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 Note: Formatting of this [...] on filedocumented in this encounter Care Teams Senior Technical Support Analyst Relationship Specialty Start Date End Date Kendall Mckeon MD PCP - General Family Medicine 01/04/17 Shanice Zarco MD Physician Other Ophthalmology 10/05/13 [address] [place] [phone] Chuy Falcon MD Physician Other Cardiology 07/16/14 [address] [place], [place] [phone] Will Dubois MD Physician Other Dermatology 09/21/14 [facility] [address] [place] [phone] Yehuda Quintero MD Physician Other Pain Management 11/02/14 [facility] 9550 [facility] 100 [place], [place] [phone] Agustín Ross MD Physician Other Orthopedic Surgery 11/02/14 [facility] [address] [facility] 201 [place] [address] Marshal Acosta Other Dental Analysis Mgr 10/05/13 [address] [place], [place] [address] Dr Posey Other Audiology 10/05/13 [place], [place] documented as of this encounter
--- OUTSIDE RECORDS SUMMARY | 2022-06-07 20:52 | XMS_ITS | Encounter Summary ---
:1935 Author Organization [facility] [employer] Address [address] [address] Phone Care Team Providers Name Role Phone Shanice Zarco MD Unavailable Chuy Falcon MD Unavailable Will Dubois MD Unavailable Yehuda Quintero MD Unavailable Agustín Ross MD Unavailable Kendall Mckeon MD Primary Care Provider Reason for Visit Reason Onset Date Comments Refill Request 06/12/2017 returned call Encounter Details Date Type Department Care Team Description 06/12/2017 Refill [facility] NURSE Andie Friend Refill Request (returned CARE LINE Olga Lidia, RN call) 400 [place] [address] Social History Tobacco Use Types Packs/Day Years [...] this encounter Miscellaneous Notes Telephone Encounter - Andie Morales RN - 06/12/2017 12:30 PM SURVEILLANCE DUAL RATE OFFICER Patients returning call about refill request. Patient is no longer seen by [facility] provider. Script that was called in was an old number. will contact pharmacy to update on new provider. EILLANCE DUAL RATE OFFICER documented in this encounter Plan of Treatment Not on filedocumented as of this encounter Goals Goal Patient Goal Associated Recent Patient-Stated? 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 Note: Formatting of this note might be d ifferent from the original. Had spinal cord stimulator leads lilliee d in July 2014 and you said that you noticed some improvement. Dr. Cristobal recommended starting tramadol at bedtime at last appointment, and to try getting in a pool/swimming 3-4 days per week to see if that helps. documented as of this encounter Visit Diagnoses Not on filedocumented in this encounter Care Teams Director Counseling Bureau Relationship Specialty Start Date End Date Kendall Mckeon MD PCP - General Family Medicine 01/04/17 Shanice Zarco MD Physician Other Ophthalmology 10/05/[address] [place] [phone] Chuy Falcon MD Physician Other Cardiology 07/16/[address] [place] [address] Will Dubois MD Physician Other Dermatology 09/21/14 [facility] [address] [place] [phone] Yehuda Quintero MD Physician Other Pain Management 11/02/14 [facility] [address] [address] Agustín Ross MD Physician Other Orthopedic Surgery 11/02/14 [facility] [address] [place] [address] [place] [address] Marshal Acosta Other Dental Liquefaction Plant Operator 10/05/[address] [place] [phone] Posey Other Audiology 10/05/13 [place], [place] documented as of this encounter
--- OUTSIDE RECORDS SUMMARY | 2022-06-07 20:52 | XMS_ITS | Encounter Summary ---
:1935 Author Organization [employer] Address [address] [address] Phone Care Team Providers Name Role Phone Rima Bedolla MD Primary Care Provider [phone] Shnaice Zarco MD Unavailable Chuy Falcon MD Unavailable Will Dubois MD Unavailable Yehuda Quintero MD Unavailable Agustín Ross MD Unavailable Reason for Visit Reason Comments Refill Request flomax and atenelol Encounter Details Date Type Department Care Team Description 11/17/2016 Refill [facility] Riaz Bedolla efill Request (flomax FAMILY MEDICINE Rima Mosher MD and atenelol) 2023 [facility] [address] [address] [place], [place] [phone] (Wo rk) Social History Tobacco Use Types [...] Sig Dispensed Refills Start Date End Date tamsulosin (FLOMAX) 0.4 MG TAKE 1 CAP BY MOUTH 90 Cap 0 11/18/2016 24 hour capsule ONE TIME A DAY. SWALLOW WHOLE DO NOT CRUSH, CHEW, OPEN OR SPLIT. atenolol (TENORMIN) 25 MG TAKE ONE TABLET BY 90 Tab 0 tablet MOUTH ONE TIME A DAY documented in this encounter Miscellaneous Notes Telephone Encounter - Latonya Cortez RN - 11/18/2016 11:30 AM CDT I have reviewed the documentation related to this refill. This refill request is Ok to authorize per the [facility] Medication Refill Protocol. Patient has used this pharm cy before. Telephone Encounter - Utility, Refill Wizard - 11/17/2016 1:08 AM CDT atenolol (TENORMIN) 25 MG tablet [Pharmacy [...] 6 months if goal not met. -> SBP is abnormal (145 mm Hg is greater than 139.0 mm Hg) -> Refill x 3 months (until due for an office visit, DBP check and SBP check) Last qualifying visit: 02/20/2016 (with RIMA BEDOLLA) Next scheduled visit: None Last ordered by RIMA BEDOLLA: 05/25/2016 (176 days ago) QTY: 90, Refills: 1, Sig: take1 tab by mouth one time a day. (changed but equivalent) SBP: 145 mm Hg on 02/20/2016 DBP: 81 mm Hg on 02/20/2016 Powered by [employer], Reference: [id number], 11/17/2016 1:08:52 AM CDT, Pool: KLEVER ([id number]) tamsulosin (FLOMAX) 0.4 MG 24 hour capsule [Pharmacy Med Name: TAMSULOSIN HCL 0.4 MG CAPSULE] Protocol: Prostate & Bladder Agents -> The patient is requesting a renewal from a different pharmacy. -> Due to an unreadable sig, manually ensure the patient is due for a renewal. -> The requested sig has changed from the last order. -> Refill x 3 months (until due for an office visit) -> Calculate quantity and refills manually. They could not be estimated due to missing or unreadable information. Last qualifying visit: 02/20/2016 (with RIMA BEDOLLA) Next scheduled visit: None Last ordered by RIMA BEDOLLA: 02/20/2016 (271 days ago) QTY: 90, Refills: 3, Sig: take1 cap by mouth one time a day. swallow whole do not crush, chew, open or split (changed) Last fill date from pharmacy: 08/20/2016 Powered by [employer], Reference: [id number], 11/17/2016 1:08:52 AM CDT, Pool: KLEVER ([id number]) documented in this encounter Plan of Treatment Not on filedocumented as of this encounter Goals Goal Patient Goal Associated Recent Patient-Stated? 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 Note: Formatting of this [...] Sig Discontinue Reason Start Date End Date atenolol (TENORMIN) 25 Take 1 Tab by mouth 05/25/2016 11/17/2016 MG tablet one time a day. tamsulosin (FLOMAX) 0.4 Take 1 Cap by mouth 02/20/2016 11/17/2016 MG 24 hour capsule one time a day. SWALLOW WHOLE DO NOT CRUSH, CHEW, OPEN OR SPLIT documented as of this encounter Care Teams Mold Designer Relationship Specialty Start Date End Date Rima Bedolla PCP - General Family Medicine 06/04/11 01/03/17 MD Nomi [address] [address] Shanice Zarco MD Physician Other Ophthalmology 10/05/13 [address] [place] [address] Chuy Falcon MD Physician Other Cardiology 07/16/14 [address] [place], [place] [phone] Will Dubois MD Physician Other Dermatology 09/21/14 [facility] [address] [place] [phone] Yehuda Quintero MD Physician Other Pain Management 11/02/14 [facility] 9550 [facility] 100 [place] [address] Agustín Ross MD Physician Other Orthopedic Surgery 11/02/14 [facility] [address] [address] Marshal Acosta Other Dental Paralegal 10/05/[address] [place], [place] [phone] Dr Posey Other Audiology 10/05/13 [place], [place] documented as of this encounter
--- OUTSIDE RECORDS SUMMARY | 2022-06-07 20:52 | XMS_ITS | Encounter Summary ---
:1935 Author Organization [employer] Address [address] [address] Phone Care Team Providers Name Role Phone Shanice Zarco MD Unavailable Chuy Falcon MD Unavailable Will Dubois MD Unavailable Yehuda Quintero MD Unavailable Agustín Ross MD Unavailable Kendall Mckeon MD Primary Care Provider Reason for Visit Reason Comments Refill Request NON [facility] PCP Encounter Details Date Type Department Care Team Description 03/26/2017 Refill [facility] Riaz Bedolla efpacheco Request (NON FAMILY MEDICINE Rima Mosher MD [facility] PCP) 2023 [facility] [address] [address] [place], [place] [address] (Wo rk) Social History Tobacco Use Types [...] Telephone Encounter - July Arredondo RN - 03/27/2017 9:32 AM CDT Non [facility] PCP. Per call to pt 03/25/17 'Patient states he has moved, and no longer sees Dr. Cristobal. ' ?? Telephone Encounter - Utility, Refill Wizard - 03/26/2017 3:20 PM CDT pantoprazole (PROTONIX) 40 MG delayed-release tablet [Pharmacy Med Name: PANTOPRAZOLE SOD DR 40 MG TAB] Protocol: Gastrointestinal -> This is a re-requested duplicate that should be manually reviewed. -> A duplicate request was processed on 03/23/2017. -> A qualifying visit was not found within the last 2 years. Last qualifying visit: None Next scheduled visit: None Last ordered by RIMA BEDOLLA K: 12/03/2016 (113 days ago) QTY: 90, Refills: 0, Sig: [...] RW RX Scheduling on 02/15/2017) Powered by [employer], Reference: [id number], 03/26/2017 3:20:26 PM CDT, Pool: KLEVER ([id number]) documented in this encounter Plan of Treatment Not on filedocumented as of this encounter Goals Goal Patient Goal Associated Recent Patient-Stated? 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 Note: Formatting of this [...] on filedocumented in this encounter Care Teams Auto Driver Relationship Specialty Start Date End Date Kendall Mckeon MD PCP - General Family Medicine 01/04/17 Shanice Zarco MD Physician Other Ophthalmology 10/05/[address] [place] [phone] Chuy Falcon MD Physician Other Cardiology 07/16/[address] [place] [address] Will Dubois MD Physician Other Dermatology 09/21/14 [facility] [address] [place] [phone] Yehuda Quintero MD Physician Other Pain Management 11/02/14 [facility] [address] [address] Agustín Ross MD Physician Other Orthopedic Surgery 11/02/14 [facility] [address] [place] [place] [address] Marshal Acosta Other [facility] [employer] Rep 10/05/[address] [place] [address] [address] [address] Posey Other Audiology 10/05/13 [place], [place] documented as of this encounter
--- OUTSIDE RECORDS SUMMARY | 2022-06-07 20:53 | XMS_ITS | Encounter Summary ---
:1935 Author Organization [employer] Address [address] [address] Phone Care Team Providers Name Role Phone Deirdre Bedolla MD Primary Care Provider [phone] Shanice Zarco MD Unavailable Chuy Falcon MD Unavailable Will Dubois MD Unavailable Yehuda Quintero MD Unavailable Agustín Ross MD Unavailable Reason for Visit Reason Onset Date Comments Other 03/14/2016 Encounter Details Date Type Department Care Team Description 03/14/2016 Telephone [facility] Jerry Hurley LPN Other MEDICINE 2023 [place] [address] Social History Tobacco Use Types Packs/Day [...] this encounter Miscellaneous Notes Telephone Encounter - Farhana Hurley LPN - 03/14/2016 3:57 PM CDT rx sent to [facility], referral entered. Telephone Encounter - Farhana Hurley LPN - 03/14/2016 3:57 PM CDT ----- Message from Deirdre Bedolla MD sent at 03/14/2016 3:51 PM CDT ----- Contact: patient&spouse Done and please refer to neuropsych. ----- Message ----- From: Farhana Hruley LPN Sent: 03/14/2016 3:50 PM To: Deirdre Bedolla MD Refill sent. They would like referral for memory testing. ----- Message ----- From: Shyla Garnica Sent: 03/14/2016 10:22 AM To: [facility] Amanda Cristobal Date: 03/14/2016 Time: 10:22 AM May we leave a message: not asked Patient's Date of : 1935 Person Calling: Pt & spouse Phone Number: Home phone [phone] (home) Reason for call: Needs CB from PCP nurse re. 1) why his TraMADol HCl 50 MG refill was refused & 2) follow through on getting MEMORY TESTING done. Pharmacy: [facility] Allergies: No Known Allergies Do not respond to this inEvolveret message directly. If needed contact the [facility] Patient Care Contact Center. Thank you, Shyla Garnica [facility] Patient Test Engine Operator x [phone] documented in this encounter Plan of Treatment Not on filedocumented as of this encounter Goals Goal Patient Goal Associated Recent Patient-Stated? 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 Note: Formatting of this [...] on filedocumented in this encounter Care Teams Cotton Classer Relationship Specialty Start Date End Date Deirdre Bedolla PCP - General Family Medicine 06/04/11 01/03/17 MD Nomi [address] [id number] Shanice Zarco MD Physician Other Ophthalmology 10/05/13 [address] [place] [address] Chuy Falcon MD Physician Other Cardiology 07/16/14 [address] [place], [place] [address] Will Dubois MD Physician Other Dermatology 09/21/14 [facility] [address] [place] [phone] Yehuda Quintero MD Physician Other Pain Management 11/02/14 [facility] 9550 [facility] 100 [place] [address] Agustín Ross MD Physician Other Orthopedic Surgery 11/02/14 [facility] [address] [place] [address] Marshal Acosta Other Dental Geophysics Professor 10/05/13 [address] [place], [place] [phone] Dr Posey Other Audiology 10/05/13 [place], [place] documented as of this encounter
--- OUTSIDE RECORDS SUMMARY | 2022-06-07 20:53 | XMS_ITS | Encounter Summary ---
:1935 Author Organization [employer] Address [address] [address] Phone Care Team Providers Name Role Phone Rima Bedolla MD Primary Care Provider [phone] Shanice Zarco MD Unavailable Chuy Falcon MD Unavailable Will Dubois MD Unavailable Yehuda Quintero MD Unavailable Agustín Ross MD Unavailable Reason for Visit Reason Comments Refill Request requip Encounter Details Date Type Department Care Team Description 06/29/2016 Refill [facility] Riaz Bedolla efill Request (requip) FAMILY MEDICINE Rima Mosher MD 2023 [facility] [address] [address] [place], [place] [address] (Wo rk) Social History Tobacco Use Types [...] Sig Dispensed Refills Start Date End Date rOPINIRole (REQUIP) 0.25 MG TAKE 1 TABLET BY 270 Tab 2 tablet MOUTH 3 TIMES DAILY documented in this encounter Miscellaneous Notes Telephone Encounter - Nighat Vincent RN - 07/01/2016 4:16 PM CST I have reviewed the documentation related to this refill. This refill request is Ok to authorize per the [facility] Medication Refill Protocol. ETRICIAN AND GYNAECOLOGIST Telephone Encounter - Utility, Refill Wizard - 06/29/2016 9:49 AM CST rOPINIRole (REQUIP) 0.25 MG tablet [Pharmacy Med Name: ROPINIROLE HCL 0.25 MG TABLET] Protocol: Neurology: Parkinsonian Agents -> Refill x 9 months (until due for an office visit) Last qualifying visit: 02/20/2016 (with RMIA BEDOLLA) Next scheduled visit: None Last ordered by RIMA BEDOLLA: 06/09/2015 (386 days ago) QTY: 90, Refills: 10, Sig: take one tablet by mouth three times daily (changed but equivalent) Last fill date from pharmacy: 06/06/2016 PATIENT IS DUE FOR: - OFFICE VISIT (Sent to RX Scheduling for multiple medications including traMADol (ULTRAM) 50 MG tablet) Powered by [employer], Reference: [id number], 06/29/2016 9:49:08 AM Yanick ROGERS: KLEVER ([id number]) ETRICIAN AND GYNAECOLOGIST documented in this encounter Plan of Treatment Not on filedocumented as of this encounter Goals Goal Patient Goal Associated Recent Patient-Stated? 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 Note: Formatting [...] Sig Discontinue Reason Start Date End Date rOPINIRole (REQUIP) 0.25 TAKE ONE TABLET BY 06/09/2015 06/29/2016 MG tablet MOUTH THREE TIMES DAILY documented as of this encounter Care Teams Input Output Clerk Relationship Specialty Start Date End Date Rima Bedolla PCP - General Family Medicine 06/04/11 01/03/17 MD Nomi [address] [address] Shanice Zarco MD Physician Other Ophthalmology 10/05/[address] [place] [phone] Chuy Falcon MD Physician Other Cardiology 07/16/14 523 [place], [place] [phone] Will Dubois MD Physician Other Dermatology 09/21/14 [facility] [address] [place] [phone] Yehuda Quintero MD Physician Other Pain Management 11/02/14 [facility] 9550 [facility] 100 [place], [place] [address] Agustín Ross MD Physician Other Orthopedic Surgery 11/02/14 [facility] [address] [place] [address] Marshal Acosta Other Dental Lpn Cma 10/05/[address] [place] [phone] Posey Other Audiology 10/05/13 [place], [place] documented as of this encounter
--- OUTSIDE RECORDS SUMMARY | 2022-06-07 20:53 | XMS_ITS | Encounter Summary ---
:1935 Author Organization [employer] Address [address] [address] Phone Care Team Providers Name Role Phone Deirdre Bedolla MD Primary Care Provider [phone] Shanice Zarco MD Unavailable Chuy Falcon MD Unavailable Will Dubois MD Unavailable Yehuda Quintero MD Unavailable Agustín Ross MD Unavailable Reason for Visit Therapy (Routine) - Closed Specialty Diagnoses / Procedures Referred By Contact Refer red To Contact Occupational Therapy Diagnoses PER INJ-10/21-Right Wrist FX Emory Duffy MD Becker, Kimberly J, Procedures [id number] [facility] OTR/L [place] [phone] 527 [facility] [place], [place] [address] Phone: Fax: Referral ID Status Reason Start Date Expiration Date Visits Requ ested Visits Authorized [id number] Closed 12/01/2015 12/19/2015 3 3 Encounter Details Date Type Department Care Team Description 12/19/2015 Office Visit [facility] Amie Eduardo wrist pain (Primary Dx); Center Occupational J, OTR/L Wrist stiffness, right; Therapy - Outpt 523 [facility] Decreased range of motion 2015 [facility] [place] [address] [place] [address] Social History Tobacco Use Types Packs/Day Years [...] 04/10/2015 Activities documented as of this encounter Progress Notes Amie Eduardo OTR/L - 12/19/2015 1:18 PM CDT 12/19/2015 Patient seen for courtesy visit only. Patient wanted the Fluidotherapy treatment, but the machine isbroken down at this time, and patient declined other treatments. Patient states that he overdid itfollowing his last therapy appointment packing items and carrying boxes. Patient reports pain is increased, but did not rate his pain on this date. Range of Motion: Wrist flexion: 0/35; prior 0/45; Wrist extension: 0/33; prior 0/45; Supination: 0/85; prior same; Pronation: 0/50; prior 0/70. Radial deviation: 0/15; prior 0/10. Ulnar deviation: 0/20; prior 0/15 Circumference: Wrist crease: 19.8 cm Patient declined any treatment on this date. Allowed Range of motion measurements only. Recommended patient to continue with gentle Range of motion exercises for the wrist and icing. Patient continues to wear the tubigrip sleeve for edema. Patient reported understanding. Anticipates to return to Occupational Therapy on 12/26/15. Occupational Therapy courtesy visit only. MARCELA Isidro/L, CLT documented in this encounter Plan of Treatment Not on filedocumented as of this encounter Goals Goal Patient Goal Associated Recent Patient-Stated? 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 Note: Formatting of this [...] that helps. documented as of this encounter Procedures Procedure Name Priority Date/Time Associated Diagnosis Comme nts THERAPY NO CHARGE Routine 12/19/2015 1:23 PM CDT Right w rist pain VISIT Wrist stiffness, right Decreased range of motion documented in this encounter Visit Diagnoses Diagnosis Right wrist pain - Primary Pain in joint, forearm Wrist stiffness, right Decreased range of motion documented in this encounter Orders Procedures Count Last Ordered Date First Ordered Date THERAPY NO CHARGE VISIT 1 12/19/2015 documented in this encounter Care Teams Sales And Marketing Coordinator Relationship Specialty Start Date End Date Deirdre Bedolla PCP - General Family Medicine 06/04/11 01/03/17 MD Nomi [address] [id number] Shanice Zarco MD Physician Other Ophthalmology 10/05/[address] [place] [phone] Chuy Falcon MD Physician Other Cardiology 07/16/14 523 [place], [place] [address] Will Dubois MD Physician Other Dermatology 09/21/14 [facility] [address] [place] [address] Yehuda Quintero MD Physician Other Pain Management 11/02/14 [facility] [address] [address] Agustín Ross MD Physician Other Orthopedic Surgery 11/02/14 [facility] [address] [place] [address] Marshal Acosta Other Dental Mid Teacher 10/05/[address] [place] [phone] Posey Other Audiology 10/05/13 [place], [place] documented as of this encounter
--- OUTSIDE RECORDS SUMMARY | 2022-06-07 20:53 | XMS_ITS | Encounter Summary ---
:1935 Author Organization [employer] Address [address] [address] Phone Care Team Providers Name Role Phone Deirdre Bedolla MD Primary Care Provider [phone] Shanice Zarco MD Unavailable Chuy Falcon MD Unavailable Will Dubois MD Unavailable Yehuda Quintero MD Unavailable Agustín Ross MD Unavailable Reason for Visit Reason Onset Date Comments Medication Question 02/10/2016 Celebrex Rx Encounter Details Date Type Department Care Team Description 02/10/2016 Telephone [facility] Pippa Noel Medic ation Question CLINIC FAMILY MEÑO ALMEIDA RN (Celebrex Rx) 2023 [place] [address] Social History Tobacco Use Types [...] this encounter Miscellaneous Notes Telephone Encounter - Pippa Noel RN - 02/10/2016 10:30 AM CDT Patient called wondering if Rx for Celebrex was sent to office from [facility]. RN spoke with PCP's nurse, Farhana and the front counter attendant, left detailed message for patient informing Rx has not arrived toclinic. Staff will call patient when received. documented in this encounter Plan of Treatment Not on filedocumented as of this encounter Goals Goal Patient Goal Associated Recent Patient-Stated? 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 Note: Formatting of [...] on filedocumented in this encounter Care Teams Ems Coordinator Relationship Specialty Start Date End Date Deirdre Bedolla PCP - General Family Medicine 06/04/11 01/03/17 MD Nomi [address] [phone] Shanice Zarco MD Physician Other Ophthalmology 10/05/[address] [place] [phone] Chuy Falcon MD Physician Other Cardiology 07/16/14 [address] [place], [place] [phone] Will Dubois MD Physician Other Dermatology 09/21/14 [facility] [address] [place] [phone] Yehuda Quintero MD Physician Other Pain Management 11/02/14 [facility] 9550 [facility] 100 [place], [place] [address] Agustín Ross MD Physician Other Orthopedic Surgery 11/02/14 [facility] [address] [place] [address] Marshal Acosta Other Dental Mutual Fund Accountant 10/05/[address] [place] [phone] Posey Other Audiology 10/05/13 [place], [place] documented as of this encounter
--- OUTSIDE RECORDS SUMMARY | 2022-06-07 20:53 | XMS_ITS | Encounter Summary ---
:1935 Author Organization [employer] Address [address] [address] Phone Care Team Providers Name Role Phone Deirdre Bedolla MD Primary Care Provider [phone] Shanice Zarco MD Unavailable Chuy Falcon MD Unavailable Will Dubois MD Unavailable Yehuda Quintero MD Unavailable Agustín Ross MD Unavailable Encounter Details Date Type Department Care Team Description 01/30/2016 Orders Only [facility] Farhana Hurley, Tiffanie al hypertension, hypertension with unspecified goal (Primary Dx); CLINIC FAMILY PLASTIC FIXTURE BUILDER Type 2 diabete s mellitus without complication (HCC); MEDICINE Hyperlipidemia, unspecified hyperlipidemia type 2023 [place] [address] Social History Tobacco Use Types [...] a my 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 Note: Formatting of this [...] Name Priority Date/Time Associated Diagnosis Comme nts XR WRIST RIGHT 3 OR 02/15/2016 10:25 AM R esults for this MORE VIEWS CDT procedure are i n the results section. documented in this encounter Results XR WRIST RIGHT 3 OR MORE VIEWS (02/15/2016 10:25 AM CDT) Anatomical Region Laterality Modality Wrist Radiographic Imaging Specimen Anatomical Collection Method Collection Time Receive d Time (Source) Location / / Volume Laterality 02/15/2016 10:25 02/15/2016 AM CDT 10:25 AM CDT Narrative 02/15/2016 10:25 AM CDT This document is currently in Final Status Exam The actual exam was performed at [facility] This exam does not have a report residin g in this EMR. Procedure Note Unlisted, Provider - 05/07/2018Formattin g of this note might be different from the original. This document is currently in Final Stat us Exam The actual exam was performed at [facility] This exam does not have a report residin g in this EMR. Pcp Elsewhere EC DIAGNOSTIC IMAGING ORDERA BLES (ABNORMAL) A1C(HGB AIC) (02/01/2016 10:24 AM CDT) athologist Signature A1C (HGB AIC) 6.6 (H) 4.0 - 6.0 02/01/2016 ST. % 10:54 AM CDT [facility] Est Average 143 mg/dL 02/01/2016 [facility] Glucose 10:54 AM CDT [facility] Comment: According to ADA guidelines, the estim ed average glucose (eAG) will be calculated for all HgbA1c results. Specimen Anatomical Collection Method Collection Time Receive d Time (Source) Location / / Volume Laterality 02/01/2016 10:24 02/01/2016 AM CDT 10:38 AM CDT Deirdre Bedolla MD EC CHEMISTRY ORDERABLES A BN Performing Organization Address City/State/ZIP Code Phon e Number [facility] [address] [place] [address] LABORATORY LIPID PROFILE (02/01/2016 10:24 AM CDT) athologist Signature Cholesterol 142 114 - 200 02/01/2016 [facility] mg/dL 11:06 AM [facility] Comment: Total Cholesterol Reference Ranges Desirable: ? <200 ?mg/dL Borderline High: ?? 200-239 mg/dL High: ?>239 ?mg/ dL TRIGLYCERIDE 148 10 - 200 mg/dL 02/01/2016 11:06 AM CD T [facility] HDL CHOLESTEROL 42 40 - 60 mg/dL 02/01/2016 11:06 AM CDT [facility] LDL- CALCULATED 70 mg/dL 02/01/2016 11:06 AM [facility] Comment: LDL Cholesterol Reference Ranges Optimal: ?<100 ? mg/dL Near Optimal: ? 100-129 ??mg/dL Borderline High: ??130-159 ??mg/dL High: ? 160-189 ??mg/dL Very High: ?>189 ? mg/dL Specimen Anatomical Collection Method Collection Time Receive d Time (Source) Location / / Volume Laterality 02/01/2016 10:24 02/01/2016 AM CDT 10:38 AM CDT Deirdre Bedolla MD EC CHEMISTRY ORDERABLES A BN Performing Organization Address City/State/ZIP Code Phon e Number [facility] [address] [place] N [address] LABORATORY BASIC MET PROF (02/01/2016 10:24 AM CDT) P athologist Signature SODIUM 139 134 - 143 02/01/2016 [facility] mEq/L 11:06 AM [facility] POTASSIUM 4.5 3.4 - 5.1 02/01/2016 [facility] mEq/L 11:06 AM [facility] Chloride 107 99 - 110 02/01/2016 [facility] mEq/L 11:06 AM [facility] CO2 23 19 - 29 02/01/2016 [facility] mEq/L 11:06 AM [facility] BUN 23 5 - 24 02/01/2016 [facility] [place] mg/dL 11:06 AM [facility] Creatinine 1.07 0.70 - 1.20 02/01/2016 [facility] mg/dL 11:06 AM [facility] GFR CALC >60 02/01/2016 [facility] [place] 11:06 AM [facility] Comment: GFR Normal: >60 mL/min/1.73 m2 Calcium 9.4 8.4 - 10.5 mg/dL 02/01/2016 11:06 AM CDT [facility]OR[facility] ANION GAP 9 3 - 15 02/01/2016 11:06 AM CDT [facility] GLUCOSE 88 70 - 100 mg/dL 02/01/2016 11:06 AM CDT E H [facility] Specimen Anatomical Collection Method Collection Time Receive d Time (Source) Location / / Volume Laterality 02/01/2016 10:24 02/01/2016 AM CDT 10:38 AM CDT Deirdre Bedolla MD EC CHEMISTRY ORDERABLES Performing Organization Address City/State/ZIP Code Phon e Number [facility] [address] [place] [address] LABORATORY (ABNORMAL) HEMOGRAM (02/01/2016 10:24 AM CDT) P athologist Signature WBC 9.0 3.4 - 10.7 02/01/2016 [facility] 109/L 10:42 AM [facility] RBC 5.13 4.20 - 5.90 02/01/2016 [facility] 1012/L 10:42 AM [facility] HGB 11.7 (L) 13.0 - 17.0 02/01/2016 [facility] [place] g/dL 10:42 AM [facility] HCT 37.0 (L) 37.5 - 51.0 02/01/2016 [facility] % 10:42 AM [facility] MCV 72.0 (L) 82.0 - 99.0 02/01/2016 [facility] fL 10:42 AM [facility] MCH 22.7 (L) 27.0 - 34.0 02/01/2016 [facility] pg 10:42 AM [facility] MCHC 31.5 (L) 32.0 - 35.7 02/01/2016 [facility] [place] g/dL 10:42 AM [facility] RDW 17.2 (H) 11.0 - 15.0 02/01/2016 [facility] % 10:42 AM [facility] PLT 259 150 - 400 02/01/2016 [facility] 109/L 10:42 AM [facility] Specimen Anatomical Collection Method Collection Time Receive d Time (Source) Location / / Volume Laterality 02/01/2016 10:24 02/01/2016 AM CDT 10:38 AM CDT Deirdre Bedolla MD EC HEMATOLOGY ORDERABLES Performing Organization Address City/State/ZIP Code Phon e Number [facility] [address] [place] [address] LABORATORY documented in this encounter Visit Diagnoses Diagnosis Essential hypertension, hypertension wit h unspecified goal - Primary Type 2 diabetes mellitus without complic ation (HCC) Hyperlipidemia, unspecified hyperlipidem ia type documented in this encounter Care Teams Rejected Items Clerk Relationship Specialty Start Date End Date Deirdre Bedolla PCP - General Family Medicine 06/04/11 01/03/17 MD Nomi [address] [phone] Shanice Zarco MD Physician Other Ophthalmology 10/05/[address] [place] [address] Chuy Falcon MD Physician Other Cardiology 07/16/14 523 [place], [place] [phone] Will Dubois MD Physician Other Dermatology 09/21/14 [facility] [address] [place] [phone] Yehuda Quintero MD Physician Other Pain Management 11/02/14 [facility] 9550 [facility] 100 [place] [address] Agustín Ross MD Physician Other Orthopedic Surgery 11/02/14 [facility] [address] [place] [address] Marshal Acosta Other Dental Facilities Flight Check Pilot 10/05/[address] [place], [place] [phone] Dr Posey Other Audiology 10/05/13 [place], [place] documented as of this encounter
--- OUTSIDE RECORDS SUMMARY | 2022-06-07 20:53 | XMS_ITS | Encounter Summary ---
:1935 Author Organization [employer] Address [address] [address] Phone Care Team Providers Name Role Phone Deirdre Bedolla MD Primary Care Provider [phone] Shanice Zarco MD Unavailable Chuy Falcon MD Unavailable Will Dubois MD Unavailable Yehuda Quintero MD Unavailable Agustín Ross MD Unavailable Reason for Visit Reason Onset Date Comments Refill Request 05/25/2016 Encounter Details Date Type Department Care Team Description 05/25/2016 Refill [facility] Jerry Haro reba Ramos LPN Refill Request MEDICINE 2023 [place], [place] [address]191 Social History Tobacco Use Types Packs/Day Years [...] Sig Dispensed Refills Start Date End Date atenolol (TENORMIN) 25 MG Take 1 Tab by mouth 90 Tab 1 1 07/25/2015 11/17/2016 tablet one time a day. documented in this encounter Plan of Treatment Not on filedocumented as of this encounter Goals Goal Patient Goal Associated Recent Patient-Stated? 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 Note: Formatting of [...] Start Date End Date atenolol (TENORMIN) 25 MG Take 1 Tab by mouth 11/06/19 14 05/25/2016 tablet one time a day. documented as of this encounter Care Teams Underground Mine Superintendent Relationship Specialty Start Date End Date Deirdre Bedolla PCP - General Family Medicine 06/04/11 01/03/17 MD Nomi [address] [id number] Shanice Zarco MD Physician Other Ophthalmology 10/05/[address] [place] [phone] Chuy Falcon MD Physician Other Cardiology 07/16/14 [address] [place], [place] [phone] Will Dubois MD Physician Other Dermatology 09/21/14 [facility] [place] [phone] Yehuda Quintero MD Physician Other Pain Management 11/02/14 [facility] [address] [place] [address] Agustín Ross MD Physician Other Orthopedic Surgery 11/02/14 [facility] [address] [phone] Marshal Acosta Other Dental Vineyard Supervisor 10/05/[address] [place] [address] Posey Other Audiology 10/05/13 [place], [place] documented as of this encounter
--- OUTSIDE RECORDS SUMMARY | 2022-06-07 20:53 | XMS_ITS | Encounter Summary ---
:1935 Author Organization [employer] Address [address] [address] Phone Care Team Providers Name Role Phone Deirdre Bedolla MD Primary Care Provider [phone] Shanice Zarco MD Unavailable Chuy Falcon MD Unavailable Will Dubois MD Unavailable Yehuda Quintero MD Unavailable Agustín Ross MD Unavailable Reason for Visit Reason Onset Date Comments Refill Request 03/14/2016 Encounter Details Date Type Department Care Team Description 03/14/2016 Refill [facility] Jerry Haro reba Ramos LPN Refill Request MEDICINE 2023 [place], [place] [id number] Social History Tobacco Use Types Packs/Day Years [...] Sig Dispensed Refills Start Date End Date traMADol (ULTRAM) 50 MG 1-2 pills twice 60 Tab 0 016 tablet daily as needed for pain. documented in this encounter Plan of Treatment Not on filedocumented as of this encounter Goals Goal Patient Goal Associated Recent Patient-Stated? 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 Note: Formatting of this [...] Sig Discontinue Reason Start Date End Date traMADol (ULTRAM) 50 MG 1-2 pills twice 11/02/2015 0 03/14/2016 tablet daily as needed for pain. documented as of this encounter Care Teams Superintendent Police Relationship Specialty Start Date End Date Deirdre Bedolla PCP - General Family Medicine 06/04/11 01/03/17 MD Nomi [address] [phone] Shanice Zarco MD Physician Other Ophthalmology 10/05/[address] [place] [phone] Chuy Falcon MD Physician Other Cardiology 07/16/14 523 [place], [place] [address] Will Dubois MD Physician Other Dermatology 09/21/14 [facility] [address] [place] [phone] Yehuda Quintero MD Physician Other Pain Management 11/02/14 [facility] [address] [phone] Agustín Ross MD Physician Other Orthopedic Surgery 11/02/14 [facility] [address] [place] [address] Marshal Acosta Other Dental Program Research Specialist 10/05/[address] [place] [address] Posey Other Audiology 10/05/13 [place], [place] documented as of this encounter
--- OUTSIDE RECORDS SUMMARY | 2022-06-07 20:53 | XMS_ITS | Encounter Summary ---
:1935 Author Organization [employer] [facility] Address [address] [address] Phone Care Team Providers Name Role Phone Deirdre Bedolla MD Primary Care Provider [phone] Shanice Zarco MD Unavailable Chuy Falcon MD Unavailable Will Dubois MD Unavailable Yehuda Quintero MD Unavailable Agustín Ross MD Unavailable Reason for Visit Reason Comments Clinic Follow Up wants to cont his medication and he will in a different area. Overactive Bladder BENIGN PROSTATIC HYPERTROPHY Encounter Details Date Type Department Care Team Description 04/02/2016 Office Visit [facility] Javy Ruiz, Overa ctive bladder (Primary Dx); Clinic Urology Benign prostatic hyperplasia with lower urinary tract symptoms, unspecified morphology; 2023 [place] [address] [place], [place] [address] Social History Tobacco Use Types Packs/Day Years Used Date Smoking Tobacco: Never Smokeless Tobacco: Never Alcohol Use Standard Drinks/Week Comments No 0 (1 standard drink = 0.6 oz pure alcoho l) Sex Assigned at Date Recorded Not on file documented as of this encounter Last Filed Vital Signs Vital Sign Reading Time Taken Comments Blood Pressure 148/71 04/02/2016 2:13 PM CDT Pulse 68 04/02/2016 2:13 PM CDT Temperature - - Respiratory Rate 19 04/02/2016 2:13 PM CDT Oxygen Saturation - - Inhaled Oxygen Concentration - - Weight 93.4 kg (206 lb) 04/02/2016 2:13 PM CDT Height 172.7 cm (5' 8) 04/02/2016 2:13 PM CDT Body Mass Index 31.32 04/02/2016 2:13 PM CDT documented in this encounter Functional Status Functional Status Response Date of Assessment Patient's Vision Adequate to Safely Complete Daily No 04/10/2015 Activities Patient's Memory Adequate to Safely Complete Daily No 11/17/2014 Activities Cognitive Status Response Date of Assessment Patient's Judgment Adequate to Safely Complete Daily No 04/10/2015 Activities documented as of this encounter Patient Instructions Patient InstructionsJavy Ruiz MD - 04/02/2016 2:00 PM CDT Follow-up for yearly rectal exams with your primary doctor. Continue on tamsulosin and Vesicare. Await PSA which was drawn today. documented in this encounter Ordered Prescriptions Prescription Sig Dispensed Refills Start Date End Date solifenacin (VESICARE) 10 Take 1 Tab by mouth 90 Tab 3 0 04/02/2016 MG tablet one time a day. documented in this encounter Progress Notes Javy Ruiz MD - 04/03/2016 1:14 PM CDT [facility] Patient Name: SIMON CASTILLO Date of Service: 04/02/2016 : 1935 Age: 80Y Sex: M Site MRN: Patient Loc/Room #: BMCURO/ Provider: Javy Ruiz MD, Urology OFFICE NOTE SITE: [facility] SUBJECTIVE: Joe is here for followup of BPH and lower urinary tract symptoms as well as an overactive bladder. He has been managed both on an anticholinergic, specifically VESIcare 10 mg a day and tamsulosin 0.4 mg a day. He presents for followup of overactive bladder and BPH with lower urinary tractsymptoms. Problem list and medications reviewed. Patient reports no significant irritative or obstructive voiding symptoms. He reports a good stream and good urinary control. He has not had any hematuria or dysuria. History of meningitis now resolved. He overall looks and feels well. Review of his chart indicates PSA was 3.28 in February 2014. PSA was drawn today and is pending. Review of systems otherwise unremarkable. OBJECTIVE: On exam, he appears pleasant, alert, in no acute distress. Skin - warm and dry. Respirations unlabored. Abdomen is benign. Prostate is 1+, smooth, symmetric, anodular, and benign feeling. Penis and scrotal contents normal. Extremities - negative. IMPRESSION: BPH with symptoms controlled with current medications. PLAN: Patient will be moving permanently to [place]. Should followup with primary care or visiting urologist on a yearly basis for prostate check and renewal of medication. Javy Ruiz MD [facility] Urology cc: /BJQ Job ID: [id number] /dana Document ID: [id number] Javy Ruiz MD - 04/02/2016 2:00 PM CDT This was 15 minute appointment. Greater than 50 % of the visit was in discussion, patient education and coordination of care regarding (N32.81) Overactive bladder (primary encounter diagnosis) (N40.1) Benign prostatic hyperplasia with lower urinary tract symptoms, unspecified morphology (N31.9) Neurogenic bladder documented in this encounter Miscellaneous Notes Clinical Note - Carlyle Randle - 04/02/2016 2:00 PM CDT While the pt was at the Urologist Clinic he had a high blood pressure. Vitals: 04/02/16 1413 BP: 148/71 Pulse: 68 Resp: 19 Weight: 206 lb (93.4 kg) Height: 5' 8 (1.727 m) Pt instructed to make an appointment with the treatment nurse or with his Deirdre Bedolla MD to get his blood pressure rechecked. Blood Pressure Limits: Reference from Policy 18-59 years of age, <140/90 60-85 years of age with diabetes, cardiovascular or CKD, <140/90 60-85 years of age without the above chronic diseases, <150/90 ~Blood pressure screenings that have a systolic reading of 180 mm Hg or higher OR a diastolic reading of 110 mm HG or higher should be rechecked. If the reading remains high, the patient should remain in the clinic while the Provider is contacted verbally, either via phone or in person. documented in this encounter Plan of Treatment Not on filedocumented as of this encounter Goals Goal Patient Goal Associated Recent Patient-Stated? 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 Note: Formatting of this [...] Name Priority Date/Time Associated Diagnosis Comme nts PSA DIAGNOSTIC Routine 04/02/2016 3:19 PM Overactive bl adder Results for this CDT Benign prostatic procedure a re in hyperplasia with lower the r esults urinary tract section. symptoms, unspecified morphology Neurogenic bladder documented in this encounter Results PSA (04/02/2016 3:19 PM CDT) P athologist Signature Prostate 2.21 0.00 - 04/02/2016 [facility] Specific 4.00 ng/mL 7:21 PM CDT [facility]ENTER Antigen LABORATORY Comment: PSA values determined on patient samples by differing testing procedures cannot be directly compared with one ano ther. [employer] [facility] use [employer] Analyzers utilizing Chemiluminescence Microparticle Immunoassay Technology (CMIA). Specimen Anatomical Collection Method Collection Time Receive d Time (Source) Location / / Volume Laterality 04/02/2016 3:19 PM 6 6:12 CDT PM CDT Javy Ruiz MD [facility] CHEMISTRY ORDERABLES ABN Performing Organization Address City/State/ZIP Code Phon e Number [facility] [address] [place] [phone] LABORATORY documented in this encounter Visit Diagnoses Diagnosis Overactive bladder - Primary Hypertonicity of bladder Benign prostatic hyperplasia with lower urinary tract symptoms, unspecified morphology Neurogenic bladder Neurogenic bladder, NOS documented in this encounter Discontinued Medications Medication Sig Discontinue Reason Start Date End Date VESICARE 10 MG tablet TAKE ONE TABLET BY 10/27/2015 04/02/2016 MOUTH ONE TIME DAILY documented as of this encounter Care Teams Police Detention Attendant Relationship Specialty Start Date End Date Deirdre Bedolla PCP - General Family Medicine 06/04/11 01/03/17 MD Nomi [address] [phone] Shanice Zacro MD Physician Other Ophthalmology 10/05/[address] [place] [phone] Chuy Falcon MD Physician Other Cardiology 07/16/14 523 [place], [place] [address] Will Dubois MD Physician Other Dermatology 09/21/14 [facility] [address] [place] [phone] Yehuda Quintero MD Physician Other Pain Management 11/02/14 [facility] 9550 [facility] 100 [place] [address] Agustín Ross MD Physician Other Orthopedic Surgery 11/02/14 [facility] [address] [phone] Marshal Acosta Other Dental Plastic Dolls Mold Filler 10/05/[address] [place] [phone] Posey Other Audiology 10/05/13 [place], [place] documented as of this encounter
--- OUTSIDE RECORDS SUMMARY | 2022-06-07 20:53 | XMS_ITS | Encounter Summary ---
:1935 Author Organization [employer] Address [address] [address] Phone Care Team Providers Name Role Phone Deirdre Bedolla MD Primary Care Provider [phone] Shanice Zarco MD Unavailable Chuy Falcon MD Unavailable Will Dubois MD Unavailable Yehuda Quintero MD Unavailable Agustín Ross MD Unavailable Encounter Details Date Type Department Care Team Description 03/14/2016 Orders Only [facility] Farhana Hurley, Memory loss (Primary [facility] NE RESIDENT INTERN Dx) 2023 [place] [address] Social History Tobacco Use Types [...] 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 Note: Formatting of [...] Comme nts XR WRIST RIGHT 3 OR 03/28/2016 4:16 PM Re sults for this MORE VIEWS CDT procedure are i n the results section. documented in this encounter Results XR WRIST RIGHT 3 OR MORE VIEWS (03/28/2016 4:16 PM CDT) Anatomical Region Laterality Modality Wrist Radiographic Imaging Specimen Anatomical Collection Method Collection Time Receive d Time (Source) Location / / Volume Laterality 03/28/2016 4:16 PM 6 4:16 CDT PM CDT Narrative 03/28/2016 4:16 PM CDT This document is currently in Final Status Exam The actual exam was performed at [facility] This exam does not have a report residin g in this EMR. Procedure Note Unlisted, Provider - 05/07/2018Formattin g of this note might be different from the original. This document is currently in Final Stat us Exam The actual exam was performed at [facility] This exam does not have a report residin g in this EMR. Pcp Elsewhere [facility] DI[facility]NOSTIC IMAGING ORDERA BLES documented in this encounter Visit Diagnoses Diagnosis Memory loss - Primary documented in this encounter Care Teams Paramedic Supervisor Relationship Specialty Start Date End Date Deirdre Bedolla PCP - General Family Medicine 06/04/11 01/03/17 MD Nomi [address] [phone] Shanice Zarco MD Physician Other Ophthalmology 10/05/[address] [place] [phone] Chuy Falcon MD Physician Other Cardiology 07/16/14 [address] [place], [place] [address] Will Dubois MD Physician Other Dermatology 09/21/14 [facility] [address] [place] [phone] Yehuda Quintero MD Physician Other Pain Management 11/02/14 [facility] 9550 [facility] 100 [place] [address] Agustín Ross MD Physician Other Orthopedic Surgery 11/02/14 [facility] [address] [phone] Marshal Acosta Other Dental Him Analyst 10/05/13 [address] [place], [place] [phone] Dr Posey Other Audiology 10/05/13 [place], [place] documented as of this encounter
--- OUTSIDE RECORDS SUMMARY | 2022-06-07 20:53 | XMS_ITS | Encounter Summary ---
:1935 Author Organization [employer] Address [address] [address] Phone Care Team Providers Name Role Phone Deirdre Bedolla MD Primary Care Provider [phone] Shanice Zarco MD Unavailable Chuy Falcon MD Unavailable Will Dubois MD Unavailable Yehuda Quintero MD Unavailable Agustín Ross MD Unavailable Reason for Referral (Routine) - Closed Specialty Diagnoses / Procedures Referred By Contact Refer red To Contact Orthopedic Surgery / Diagnoses Right knee injury, initial encounter Wrist fracture, right, closed, initial encounter Karen Cabello, Orthopedics ZONE MAINTENANCE TECHNICIAN, SIGN SHOP SUPERVISOR [address] [place] [address] Referral ID Status Reason Start Date Expiration Date Visits Requ ested Visits Authorized [id number] Closed 02/04/2016 08/17/2017 1 1 Comments Reason for Referral: Right wrist fractur e Is the reason for referral related to an injury? no Has the patient ever had surgery on this extremity/joint? no If applicable, list side: right Are there any films/x-rays pertaining to the reason for referral? yes- Where are the films/x-rays located? [facility] Have labs been ordered that are related to the reason for referral? no Referred to (facility name): Provider requested: first available Referral made at the request of [facility] Clinician Reason for Visit Reason Comments Wrist Injury patient fell yesterday, hurt both wrist and both knee's previously broke R wrist. Has been having a l ot of pain in knee since fall Encounter Details Date Type Department Care Team Description 02/03/[address] [facility] ight knee injury, initial encounter (Primary Dx); URGENT CARE Wrist fracture, right, close d, initial encounter [id number] [id number] Social History Tobacco Use Types Packs/Day Years Used Date Smoking Tobacco: Never Smokeless Tobacco: Never Alcohol Use Standard Drinks/Week Comments No 0 (1 standard drink = 0.6 oz pure alcoho l) Sex Assigned at Date Recorded Not on file documented as of this encounter Last Filed Vital Signs Vital Sign Reading Time Taken Comments Blood Pressure 121/85 02/03/2016 10:19 AM CDT Pulse 66 02/03/2016 10:19 AM CDT Temperature 37.4 ??C (99.4 ??F) 02/03/2016 10:19 AM CDT Respiratory Rate - - Oxygen Saturation 98% 02/03/2016 10:19 AM CDT Inhaled Oxygen Concentration - - Weight 90.7 kg (200 lb) 02/03/2016 10:19 AM CDT Height - - Body Mass Index 30.41 11/02/2015 3:06 PM CDT documented in this encounter Functional Status Functional Status Response Date of Assessment Patient's Vision Adequate to Safely Complete Daily No 04/10/2015 Activities Patient's Memory Adequate to Safely Complete Daily No 11/17/2014 Activities Cognitive Status Response Date of Assessment Patient's Judgment Adequate to Safely Complete Daily No 04/10/2015 Activities documented as of this encounter Patient Instructions Patient InstructionsKaren Cabello APRN, CNP - 02/03/2016 11:11 AM CDT Images from the original note were not included. Hand Contusion You have a contusion. This is also called a bruise. There is swelling and some bleeding under the skin, but no broken bones. This injury??generally??takes a few days to a few weeks to heal. ??During that time, the bruise will typically change in color from??reddish, to purple-blue, to greenish-yellow,then to yellow-brown. Home care ?? Elevate the hand to reduce pain and swelling.??As much as possible, sit or lie down with the handraised about the level of your heart.??This is especially important during the first 48 hours. ?? Ice the hand to help reduce pain and swelling.??Wrap a cold source (ice pack??or ice cubes in a plastic bag) in a thin towel. Apply to the bruised area for 20 minutes every 1 to 2 hours the first day. Continue this 3 to 4 times a day until the pain and swelling goes away. ?? Unless another medication was prescribed, you can take acetaminophen, ibuprofen, or naproxen??to control pain. (If you have chronic liver or kidney disease or ever had a stomach ulcer or GI bleeding, talk with your doctor before using these medicines.) Follow up Follow up with your health care provider or our staff as advised. Call if you are not improving within??1 to 2 weeks. When to seek medical advice?? Call your health care provider right away if you have any of the following: ?? Increased pain or swelling ?? Arm becomes cold, blue, numb or tingly ?? Signs of infection:??Warmth, drainage, or increased redness or pain around the bruise ?? Inability to move the injured hand? Frequent bruising for unknown reasons ?? [id number] [employer]. [address] [place] [address]. All rights reserved. This information is not intended as a substitute for professional medical care. Always follow your healthcare professional's instructions. Soft Tissue Contusion You have a contusion. This is also called a bruise. There is swelling and some bleeding under the skin. This injury??generally??takes a few days to a few weeks to heal. ??During that time, the bruise will typically change in color from??reddish, to purple-blue, to greenish-yellow, then to yellow-brown. Home care ?? Elevate the injured area to reduce pain and swelling.??As much as possible, sit or lie down with the injured area raised about the level of your heart.??This is especially important during the first48 hours. ?? Ice the injured area to help reduce pain and swelling.??Wrap a cold source (ice pack??or ice cubes in a plastic bag) in a thin towel. Apply to the bruised area for 20 minutes every 1 to 2 hours the first day. Continue this 3 to 4 times a day until the pain and swelling goes away. ?? Unless another medication was prescribed, you can take acetaminophen, ibuprofen, or naproxen??to control pain. (If you have chronic liver or kidney disease or ever had a stomach ulcer or GI bleeding, talk with your doctor before using these medicines.) Follow up Follow up with your health care provider or our staff as advised. Call if you are not better in 1 to2 weeks. When to seek medical advice?? Call your health care provider right away if you have any of the following: ?? Increased pain or swelling ?? Bruise is on an arm or leg and arem or leg becomes cold, blue, numb or tingly ?? Signs of infection:??Warmth, drainage, or increased redness or pain around the contusion ?? Inability to move the injured area or body part? Bruise is near your eye and you have problems with your eyesight or eye? Frequent bruising for unknown reasons ?? [id number] [employer] [address] [place] [address]. All rights reserved. This information is not intended as a substitute for professional medical care. Always follow your healthcare professional's instructions. documented in this encounter Progress Notes Karen Cabello APRN, CNP - 02/03/2016 10:32 AM CDT Patient Simon Castillo Chief Complaint Wrist Injury (patient fell yesterday, hurt both wrist and both knee's previously broke R wrist. Has been having a lot of pain in knee since fall) HPI Simon Castillo is a 80 year old male here for eval of 2 concerns. Was outside picking choke cherries and fell landed on right knee and right wrist. Is worried about fractures and is requesting xray. Immediate symptoms: immediate pain, was able to bear weight directly after injury, was able to use hand directly after injury. Prior history of related problems: previous knee injury wearing a right wrist brace during the fall and in clinic today. , Home treatment: none. Review of Systems Constitutional: Negative. HENT: Negative. Respiratory: Negative. Cardiovascular: Negative. Musculoskeletal: See HPI Neurological: Negative. No Known Allergies Patient's Medications New Prescriptions No medications on file Previous Medications AMLODIPINE (NORVASC) 5 MG TABLET TAKE ONE TABLET BY MOUTH ONE TIME DAILY ASCORBIC ACID (VITAMIN C) 500 MG CAP Chew and swallow one tablet by mouth one time daily ASPIRIN LOW DOSE 81 MG TABLET 81 mg 1 tablet, ORAL, DAILY, 08/05/09 14:22:55 ATENOLOL (TENORMIN) 25 MG TABLET Take 1 Tab by mouth one time a day. ATORVASTATIN (LIPITOR) 40 MG TABLET Take 1 Tab by mouth at bedtime. CELECOXIB (CELEBREX) 200 MG CAPSULE TAKE ONE CAPSULE BY MOUTH ONE TIME DAILY CLOPIDOGREL (PLAVIX) 75 MG TABLET TAKE ONE TABLET BY MOUTH ONE TIME DAILY FINASTERIDE (PROSCAR) 5 MG TABLET TAKE ONE TABLET BY MOUTH ONE TIME DAILY DO NOT CRUSH FLUOXETINE (PROZAC) 40 MG CAPSULE Take 1 Cap by mouth one time a day. GABAPENTIN (NEURONTIN) 300 MG CAPSULE TAKE TWO CAPSULES BY MOUTH THREE TIMES DAILY MULTIPLE VITAMIN (MULTIVITAMIN) TABLET Take 1 Tab by mouth one time a day. PANTOPRAZOLE (PROTONIX) 40 MG DELAYED-RELEASE TABLET TAKE ONE TABLET BY MOUTH ONE TIME DAILY DO NOTCRUSH POLYETHYLENE GLYCOL 3350 (MIRALAX) POWDER MIX 17 GRAMS (ONE CAPFUL) IN LIQUID AND DRINK EVERY DAY FORCONSTIPATION. POTASSIUM CHLORIDE (KAYCIEL) 20 MEQ/15ML (10%) LIQUID Take 15 mL by mouth one time a day. Take withfood; do not take liquid full strength, must be diluted in 2-6 parts of fluid. POTASSIUM CHLORIDE CR (K-DUR, KLOR-CON M) 20 MEQ TABLET TAKE ONE TABLET BY MOUTH ONE TIME DAILY ROPINIROLE (REQUIP) 0.25 MG TABLET TAKE ONE TABLET BY MOUTH THREE TIMES DAILY SENNOSIDES-DOCUSATE SODIUM (SENOKOT-S) 8.6-50 MG PER TABLET Take 2 Tabs by mouth one time a day. TAMSULOSIN (FLOMAX) 0.4 MG 24 HOUR CAPSULE Take one cap by mouth once daily, swallow whole, do not crush or chew. TRAMADOL (ULTRAM) 50 MG TABLET 1-2 pills twice daily as needed for pain. TRAMADOL (ULTRAM) 50 MG TABLET 1-2 pills twice daily as needed for pain. TRAMADOL (ULTRAM) 50 MG TABLET 1-2 pills twice daily as needed for pain. VESICARE 10 MG TABLET TAKE ONE TABLET BY MOUTH ONE TIME DAILY Modified Medications No medications on file Discontinued Medications No medications on file Past Medical History: Past Medical History Diagnosis Date ??? CAD (coronary artery disease) with history of IN and stent placement ??? Colon polyp ??? Diverticulosis ??? DM type 2 (diabetes mellitus, type 2) ([facility]) ??? Hyperlipidemia ??? Hypertension ??? 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 Medical home patient encounter Past Surgical History: Past Surgical History Procedure Laterality Date ??? Colonoscopy 05/02/2006 Junito Noel MD ??? Coronary angioplasty with stent placement ??? Back surgery L4 laminectomy, multiple level cervical fusion ??? Joint replacement Left left hip ??? Shoulder surgery Right right rotator cuff ??? Cataract removal ??? Tonsillectomy and adenoidectomy ??? Appendectomy ??? Hemorrhoid surgery ??? Spine surgery 10/15/2013 Spinal Cord Stimulator (Medrudi), Dr Ramey at [facility] ??? Cmplx cmg/void pressure study 04/07/2014 Dr. Ruiz ??? Colonoscopy 01/31/2011 5 yr f/u Family History: His family history is not on file. Social History: He reports that he has never smoked. He has never used smokeless tobacco. He reportsthat he does not drink alcohol. Exam: Vitals: 02/03/16 1019 BP: 121/85 Pulse: 66 Temp: 37.4 ??C (99.4 ??F) TempSrc: Temporal Scanner Weight: 200 lb (90.7 kg) SpO2: 98% Physical Exam Constitutional: He is oriented to person, place, and time. He appears well- developed and well-nourished. HENT: Head: Normocephalic and atraumatic. Eyes: Conjunctivae are normal. Neck: Normal range of motion. Neck supple. Musculoskeletal: He exhibits edema, tenderness and deformity. Wrist exam: limited due to preexisting fracture. There is soft tissue tenderness and swelling with deforming radial aspect. radial pulse normal. Knee exam:Right knee soft tissue tenderness over the entire knee no Ecchymosis. FROM of knee joint Neurological: He is alert and oriented to person, place, and time. No cranial nerve deficit. He exhibits normal muscle tone. Coordination normal. Skin: Skin is warm and dry. Nursing note and vitals reviewed. Lab Results: No results found for this visit on 02/03/16. Lab results are reviewed as documented in the electronic chart. Rad Results: This document is currently in Final Status Exam XR KNEE RIGHT 3 VIEWS ?? HISTORY: fell landed on right knee; ?? 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 Degenerative changes most marked in the patellofemoral compartment. Well-corticated calcification at the superior pole of the patella appears chronic. Hypertrophic changes lateral tibial plateau. ?? Electronically Signed: Nayan Martinez MD 02/03/2016 12:07 PM ?? This document is currently in Final Status Exam XR WRIST RIGHT 3 OR MORE VIEWS ?? HISTORY: fell hit right wrist; ?? FINDINGS: Acute, mildly displaced, mildly impacted intra-articular fracture of the distal right radius. Minimally displaced transverse fracture through the ulnar styloid process. Degenerative changes. ?? Electronically Signed: Nayan Martinez MD 02/03/2016 11:05 AM Procedures: Procedures Assessment: Right knee contusion and right wrist fracture Plan: Patient has right wrist splint and would like to keep this splint instead of new one. Apply ice packs to knee and referral to Orthopedics for this injury. He has been seeing ortho for the previous wrist fracture will return there for further evaluation . MDM documented in this encounter Plan of Treatment Not on filedocumented as of this encounter Goals Goal Patient Goal Associated Recent Patient-Stated? 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 Note: Formatting of [...] Priority Date/Time Associated Diagnosis Comme nts XR KNEE RIGHT 3 KIERSTEN 02/03/2016 11:00 AM Right knee injury, Results for this VIEWS CDT initial encounter procedure are in the results section. XR WRIST RIGHT 3 OR KIERSTEN 02/03/2016 11:00 AM Right knee inj ury, Results for this MORE VIEWS CDT initial encounte r procedure are in Wrist fracture, the results right, closed, section. initial encounter documented in this encounter Results XR KNEE RIGHT 3 VIEWS (02/03/2016 11:00 AM CDT) Anatomical Region Laterality Modality Knee Radiographic Imaging Specimen (Source) Anatomical Collection Method Collection Time Re ceived Time Location / / Volume Laterality 02/03/2016 11:00 AM CDT Narrative 02/03/2016 12:07 PM CDT This document is currently in Final Status Exam XR KNEE RIGHT 3 VIEWS HISTORY: fell landed on right knee; FINDINGS: Chondrocalcinosis in the menis ci. Degenerative changes most marked in the patellofemoral compartment. Well-corticated calcification at the superior pole of the patella appears chronic. Hypertrophic changes lateral tibial plateau. Electronically Signed: Nayan Martinez MD 02/03/2016 12:07 PM Procedure Note Nayan Martinez MD - 02/03/2016Forma tting of this note might be different from the original. This document is currently in Final Stat us Exam XR KNEE RIGHT 3 VIEWS HISTORY: fell landed on right knee; FINDINGS: Chondrocalcinosis in the menis ci. Degenerative changes most marked in the patellofemoral compartment. Well-corticated calcification at the superior pole of the patella appears chronic. Hypertrophic changes lateral tibial plateau. Electronically Signed: Nayan Martinez MD 02/03/2016 12:07 PM Karen Cabello APRN, SIGN SHOP SUPERVISOR [facility] XR WRIST RIGHT 3 OR MORE VIEWS (02/03/2016 11:00 AM CDT) Anatomical Region Laterality Modality Wrist Radiographic Imaging Specimen (Source) Anatomical Collection Method Collection Time Re ceived Time Location / / Volume Laterality 02/03/2016 11:00 AM CDT Narrative 02/03/2016 11:05 AM CDT This document is currently in Final Status Exam XR WRIST RIGHT 3 OR MORE VIEWS HISTORY: fell hit right wrist; FINDINGS: Acute, mildly displaced, mildl y impacted intra-articular fracture of the distal right radius. Minimally displaced transverse fracture through the ulnar styloid process. Degenerative changes. Electronically Signed: Nayan Martinez MD 02/03/2016 11:05 AM Procedure Note Nayan Martinez MD - 02/03/2016Forma tting of this note might be different from the original. This document is currently in Final Stat us Exam XR WRIST RIGHT 3 OR MORE VIEWS HISTORY: fell hit right wrist; FINDINGS: Acute, mildly displaced, mildl y impacted intra-articular fracture of the distal right radius. Minimally displaced transverse fracture through the ulnar styloid process. Degenerative changes. Electronically Signed: Nayan Martinez MD 02/03/2016 11:05 AM Karen Cabello APRN, SIGN SHOP SUPERVISOR [facility] documented in this encounter Visit Diagnoses Diagnosis Right knee injury, initial encounter - P rimary Wrist fracture, right, closed, initial e ncounter documented in this encounter Orders REFERRAL Count Last Ordered Date First Ordered Date APPT WITH [facility] 1 02/04/2016 documented in this encounter Care Teams Detective Private Eye Relationship Specialty Start Date End Date Deirdre Bedolla PCP - General Family Medicine 06/04/11 01/03/17 MD Nomi [address] [id number] Shanice Zarco MD Physician Other Ophthalmology 10/05/[address] [place] [phone] Chuy Falcon MD Physician Other Cardiology 07/16/14 [address] [place], [place] [address] Will Dubois MD Physician Other Dermatology 09/21/14 [facility] [address] [place] [phone] Yehuda Quintero MD Physician Other Pain Management 11/02/14 [facility] [address] [facility] [address] [place] [address] Agustín Ross MD Physician Other Orthopedic Surgery 11/02/14 [facility] [address] [facility] [address] [place] [address] Marshal Acosta Other Dental Program Director [employer] 10/05/[address] [place] [address] [address] Posey Other Audiology 10/05/13 [place], [place] documented as of this encounter
--- OUTSIDE RECORDS SUMMARY | 2022-06-07 20:53 | XMS_ITS | Encounter Summary ---
:1935 Author Organization [facility] Address [address] [address] Phone Care Team Providers Name Role Phone Deirdre Bedolla MD Primary Care Provider [phone] Shanice Zarco MD Unavailable Chuy Falcon MD Unavailable Will Dubois MD Unavailable Yehuda Quintero MD Unavailable Agustín Ross MD Unavailable Reason for Visit Reason Comments Refill Request due for DM ov and lab Encounter Details Date Type Department Care Team Description 06/29/2016 Telephone [facility] Scheduling, Refil l Refill Request (due for FAMILY MEDICINE DM ov and lab) [address] [place] [address] Social History Tobacco Use Types [...] this encounter Miscellaneous Notes Telephone Encounter - Lizet Ontiveros LPN - 07/06/2016 1:27 PM CST A letter or Keen Impressionsth message was sent to patient at this time. Lab order placed. K PILOT Telephone Encounter - Peri Phillips - 06/29/2016 9:49 AM CST SCHEDULE THE FOLLOWING: - OFFICE VISIT BY: 08/18/2016 (Coming due as of 08/18/2016 for multiple medications including traMADol (ULTRAM) 50 MG tablet) - LAST QUALIFYING VISIT WITH DEIRDRE BEDOLLA K: 02/20/2016 - NEXT SCHEDULED VISIT: None - NEXT LAB APPOINTMENT: None Powered by [employer], Reference: [id number], 06/29/2016 9:49:08 AM KEN Pool: KLEVER ([id number]) K PILOT documented in this encounter Plan of Treatment Not on filedocumented as of this encounter Goals Goal Patient Goal Associated Recent Patient-Stated? 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 Note: Formatting of this [...] aftercare documented in this encounter Care Teams Barn And Property Manager Relationship Specialty Start Date End Date Chioma Deirdre PCP - General Family Medicine 06/04/11 01/03/17 MD Nomi [address] [id number] Shanice Zarco MD Physician Other Ophthalmology 10/05/13 [address] [place] [phone] Chuy Falcon MD Physician Other Cardiology 07/16/14 [address] [place], [place] [phone] Will Dubois MD Physician Other Dermatology 09/21/14 [facility] [address] [place] [phone] Yehuda Quintero MD Physician Other Pain Management 11/02/14 [facility] [address] [facility] [address] [place] [address] Agustín Ross MD Physician Other Orthopedic Surgery 11/02/14 [facility] [address] [phone] Marshal Acosta Other Dental Blasting Entry Specialist 10/05/13 [address] [place], [place] [address] Dr Posey Other Audiology 10/05/13 [place], [place] documented as of this encounter
--- OUTSIDE RECORDS SUMMARY | 2022-06-07 20:53 | XMS_ITS | Encounter Summary ---
:1935 Author Organization [employer] Address [address] [address] Phone Care Team Providers Name Role Phone Deirdre Bedolla MD Primary Care Provider [phone] Shanice Zarco MD Unavailable Chuy Falcon MD Unavailable Will Dubois MD Unavailable Yehuda Judd MD Unavailable Agustín Ross MD Unavailable Reason for Visit Reason Comments Care Coordination Program Graduation from [facility] Encounter Details Date Type Department Care Team Description 11/11/2015 Notes [facility] Pippa Noel , Care Coordination Program FAMILY MEDICINE RN (Graduation from [facility] 2023 [facility] Coordination) [place], [place] [id number] Social History Tobacco Use Types Packs/Day Years [...] documented as of this encounter Progress Notes Pippa Noel, RN - 11/11/2015 9:14 AM CDT Patient will no longer be receiving care coordination through [facility] Care Coordination Program for the following reason pateint has had clinical improvement, no longer needs care coordination/patient will be moving to [place], will be establishing care there. Pt's informed, letter sent as well. Careplan as of 06/23/15: Hypertension (High Blood Pressure) Comment: You see Dr Cristobal for your high blood pressure. At your last appointment with Dr Cristobal in October 2014, she said that your blood pressure was well-controlled. You take the following medications for your blood pressure: amlodipine (also called Norvasc) and atenolol (also called Tenormin), Plan: Continue to see Dr Cristobal as she recommends for follow up on your blood pressure and other medical conditions. Dr. Cristobal asked that you come back to see her in December. The goal for your blood pressure is to keep the top number less than 130 and the bottom number less than 80. If you check your blood pressure at home and notice that the numbers are higher than that, try the followin. Make sure it's been at least an hour since your took your blood pressure medicines. If not, wait and recheck it. 2. Try taking nice deep breaths and think of relaxing thoughts, sit with both feet flat on the floor. Then try rechecking it. 3. If you are still having readings higher than 130/80, let Jessica your Rn Research, or Dr Velasco. She may want you to come in to see her to discuss it further. Diabetes (Type 2) Comment: You see Dr Cristobal for your diabetes. Your last appointment with he was in October 2014. You have not taken medications for diabetes for a few years since you were ill. At your last appointment, Dr. Cristobal also checked your a1c, or your 3-month average sugar. The results from the past few tests are copied below. Most doctors recommend that your a1c be less than 7.0, or an average blood sugar of154, to prevent complications from diabetes. Your a1c is checked every 3 months. Component Latest Ref Rng 04/05/2014 07/15/2014 09/22/2014 A1C (HGB AIC) 6.0 6.3 7.0 Estimated Average Glucose 126 134 154 Plan: Your A1c test shows that your blood sugars have been increasing slowly over the past few months. Dr Cristobal recommended that you see the clinical staff educator Suyapa (eeg technician) to review diet and portion control. Dr. Cristobal asked you to work on that for three months and she will recheck your a1c at that time. She did not want to start you back on a medication yet, but wrote that she may if your blood sugars aren't going down. Hyperlipidemia (High Cholesterol) Comment: You see Dr Cristobal for your high cholesterol. Your levels were last checked in October 2014. Back in March 2014, Dr. Cristobal changed your cholesterol medication (you were taking simvastatin, but she recommended you change to Lipitor 40mg daily based on new guidelines). This information was for warded to your employment evaluator/case manager, Dr. Falcon. Component Latest Ref Rng 10/22/2014 CHOLESTEROL 114 - 200 mg/dL 123 TRIGLYCERIDES 10 - 200 mg/dL 130 HDL CHOLESTEROL 40 - 60 mg/dL 33 LDL- CALCULATED 64 Plan: Dr. Cristobal wrote that she was happy with how your cholesterol levels were looking. Please continue to take your medication as prescribed, and follow up with Dr. Cristobal in December. Heart Disease Comment: Your history of heart disease includes a heart attack (also called a myocardial infarct, or'NC') in 1989, right coronary stenting at that time. Had an NC on July 04, 2012, in [place] where you had two bare-metal stents placed, and actually coded in the ambulance on the way down to [place] at that time. You see Dr. Falcon and Dr. Cristobal for your history of heart disease. Your last appointment with Dr. Falcon was in July 2014. In his note, he wrote that you were doing well, that you denied having any symptoms of chest pain or pressure. His note said he ordered an echocardiogram to look at howyour heart was functioning. We have these notes in your chart at [facility]. You are prescribed plavix and aspirin for your history of heart disease. Plan: Please continue to see Dr. Falcon for follow up on your heart disease. Please let your CareCoordinator know when you see him, so we can ensure the records are received and are a part of your chart at [facility]. History of Epidural Abscess, Chronic Pain History: Saw Dr Cristobal on 06/23/2012 for back pain and you were sent to the ER and transferred down to [facility] and diagnosed with an epidural abscess. En route to [facility], you had a cardiopulmonary arrest. While in [facility], you had a T11-L3 decompression laminectomy. MRI on 07/22/2012 showed increase in size of abscess and surgery was repeated. Other complications during that including needing thoracentesis procedure, 3 colonoscopies, and delirium. You also had a cardiac arrest while inpatient on 07/04/2012 where you had two bare metal stents placed and in intra-aortic balloon pump for a short time. You followed with infectious disease specialist Dr Danielson with [facility] following. It was initiall y thought that you would require life long Keflex (antibiotic), but Dr Danielson stopped those in November 2012. Dr Danielson's note from 08/25/2013 said that he reviewed your MRI from [facility] on 08/13 and it showed noinfection. He did blood work that also did not show an infection in your back. More recently, you have been working with the [facility] in [place] for your back pain, and seeDreza Cristobal as well. You had your spinal cord stimulator adjusted in July [address] Judd. When you saw Dr. Cristobal in September 2014, she wrote that you were having more pain in your left buttock area, but that swimming in the pool in [place] seemed to really help. Comment: When you saw Dr Cristobal in September 2014, she suggested that you continue taking Cymbalta and gabapentin for pain. She suggested you take your Celebrex in the morning to see if that helps when thepain seems to be at its worst. She also thought it would be beneficial for you to try to get to a pool 3-4 days a week to see if that helps. She also gave you a new prescription for Tramadol to try taking at bedtime to see if that helps you sleep. In June 2015 she increased your tramadol to 50mg-100mg, 2 tabs at night. Plan: Continue to see Dr Cristobal for your chronic back pain and for follow up monitoring on your back. If you have appointments with other doctors outside of [facility] for your back, please let your Rn Research know so we can make sure we have copies of those notes in your [facility] file. History of Basal Cell Carcinoma Comment/Plan: You see Dr.Daniel Dubois at [facility] in [place] for your skin concerns. You let us know that you had an area on your skin tested and it came back as basal cell carcinoma, a type of skin cancer. This was in August 2014. Please keep us updated when you see Dr. Dubois so we can make sure we get copies of those notes in your chart at [facility]. Neurogenic Bladder Comment: Most recently, you have been seeing doctors with the urology clinic at [facility] in [place]. The most recent note we have on file is dated in September [address] Darling[address] Dr. 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 Plan: Dr. Darling' note said you were planning to go forward with botox injections the end of October for your bladder. He also recommended that you continue taking Flomax. Please let us know when you see Dr. Darling so we can make sure we get a copy of his note on file in your [facility] chart. Anxiety Comment: You see Dr. Cristobal for your anxiety. In June 2015 she increased your dose of Prozac to 40mg daily to help with your life transitions. Plan: Follow up with Dr. Cristobal in July 2015. documented in this encounter Plan of Treatment Not on filedocumented as of this encounter Goals Goal Patient Goal Associated Recent Patient-Stated? 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 Note: Formatting of this [...] on filedocumented in this encounter Care Teams Concrete Paving Supervisor Relationship Specialty Start Date End Date Deirdre Bedolla PCP - General Family Medicine 06/04/11 01/03/17 MD Nomi [address] [id number] Shanice Zarco MD Physician Other Ophthalmology 10/05/[address] [place] [phone] Chuy Falcon MD Physician Other Cardiology 07/16/14 [address] [place], [place] [address] Will Dubois MD Physician Other Dermatology 09/21/14 [facility] [address], [place] [address] Yehuda Judd MD Physician Other Pain Management 11/02/14 [facility] [address] [facility] [address] [place], [place] [phone] Agustín Ross MD Physician Other Orthopedic Surgery 11/02/14 [facility] [address] [place] [address] Marshal Acosta Other Dental Animal Biologist 10/05/13 [address] [place], [place] [address] Dr Posey Other Audiology 10/05/13 [place], [place] documented as of this encounter
--- OUTSIDE RECORDS SUMMARY | 2022-06-07 20:53 | XMS_ITS | Encounter Summary ---
:1935 Author Organization [employer] Address [address] [address] Phone Care Team Providers Name Role Phone Deirdre Bedolla MD Primary Care Provider [phone] Shanice Zarco MD Unavailable Chuy Falcon MD Unavailable Will Dubois MD Unavailable Yehuda Quintero MD Unavailable Agustín Ross MD Unavailable Encounter Details Date Type Department Care Team Description 02/03/2016 Office Visit Karen Bryan, CORN DETASSELER, [address] [place] [address] [place] [address] [place] [address] (Wo rk) Social History Tobacco Use Types [...] Lorena a my back pain at E, CORN DETASSELER, a lower and PRINTING ENGINEER more tolerable level. Note: Formatting of [...] Comme nts XR WRIST RIGHT 3 OR KIERSTEN 02/03/2016 11:00 AM Right knee inj ury, Results for this MORE VIEWS CDT initial encounte r procedure are in Wrist fracture, the results right, closed, section. initial encounter documented in this encounter Results XR WRIST [...] Signed: Nayan Martinez MD 02/03/2016 11:05 AM Maisa A Destiney CORN DETASSELER, PRINTING ENGINEER [facility] ORDERA BLES documented in this encounter Visit Diagnoses Not on filedocumented in this encounter Care Teams Nuclear Security Officer Relationship Specialty Start Date End Date JoaquínDanyaDeirdre Cristobal PCP - General Family Medicine 06/04/11 01/03/17 MD Nomi [address] [id number] Shanice Zarco MD Physician Other Ophthalmology 10/05/13 [address] [place] [address] Chuy Falcon MD Physician Other Cardiology 07/16/14 [address] [place], [place] [address] Will Dubois MD Physician Other Dermatology 09/21/14 [facility] [address] [place] [phone] Yehuda Quintero MD Physician Other Pain Management 11/02/14 [facility] [address]50 [facility] 100 [place] [address] Agustín Ross MD Physician Other Orthopedic Surgery 11/02/14 [facility] [address] [place] [phone] Marshal Acosta Other Dental Certified Ethical Hacker 10/05/13 [address] [place], [place] [phone] Dr Posey Other Audiology 10/05/13 [place], [place] documented as of this encounter
--- OUTSIDE RECORDS SUMMARY | 2022-06-07 20:53 | XMS_ITS | Encounter Summary ---
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 Note: Formatting of this [...] on filedocumented in this encounter Care Teams Steward/Stewardess [employer] Car Relationship Specialty Start Date End Date Deirdre Bedolla PCP - General Family Medicine 06/04/11 01/03/17 MD Nomi [address] [phone] Shanice Zarco MD Physician Other Ophthalmology 10/05/[address] [place] [phone] hCuy Falcon MD Physician Other Cardiology 07/16/14 [address] [place], [place] [address] Will Dubois MD Physician Other Dermatology 09/21/14 [facility] [address] [place] [phone] Yehuda Quintero MD Physician Other Pain Management 11/02/14 [facility] [address]50 [facility] 100 [place], [place] [phone] Agustín Ross MD Physician Other Orthopedic Surgery 11/02/14 [facility] [address] [place] [address] Marshal Acosta Other Dental Marketing Administrative Assistant 10/05/13 [address] [place], [place] [address] Dr Posey Other Audiology 10/05/13 [place], [place] documented as of this encounter
--- OUTSIDE RECORDS SUMMARY | 2022-06-07 20:53 | XMS_ITS | Encounter Summary ---
:1935 Author Organization [employer] Address [address] [address] Phone Care Team Providers Name Role Phone Deirdre Bedolla MD Primary Care Provider [phone] Shanice Zarco MD Unavailable Chuy Falcon MD Unavailable Will Dubois MD Unavailable Yehuda Quintero MD Unavailable Agustín Ross MD Unavailable Reason for Visit Therapy (Routine) - Closed Specialty Diagnoses / Procedures Referred By Contact Refer red To Contact Occupational Therapy Diagnoses PER INJ-10/21-Right Wrist FX Emory Duffy MD Becker, Kimberly J, Procedures [id number] 2013 [facility] OTR/L FA[place]EM BURDICK [phone] [facility] [place], [place] [address] Phone: Fax: Referral ID Status Reason Start Date Expiration Date Visits Requ ested Visits Authorized [id number] Closed 12/01/2015 12/19/2015 3 3 Encounter Details Date Type Department Care Team Description 12/01/2015 Office Visit [facility] Amie Eduardo wrist pain (Primary Dx); Center Occupational J, OTR/L Wrist stiffness, right; Therapy - Outpt 523 [facility] Decreased range of motion 2015 [facility] [place] [id number] [place]dick [address] Social History Tobacco Use Types Packs/Day Years [...] encounter Progress Notes Amie Eduardo OTR/L - 12/01/2015 3:22 PM CDT Patient Name: Simon Castillo Date of Service / Report Date: 12/01/2015 Date of : 1935 Age/Gender: 80 year old / male Provider: CHENCHO Menjivar REHABILITATION INITIAL EVALUATION Occupational Therapy Site: [facility] OCCUPATIONAL THERAPY - OUTPT I CERTIFY THE NEED FOR THESE SERVICES FURNISHED UNDER THIS PLAN OF TREATMENT AND WHILE UNDER MY CARE Emory Duffy Referring Provider: Emory Duffy Date of Evaluation: 12/01/2015 Medical Diagnosis: 6 wks s/p Right Wrist intraarticular distal radius fracture and non displaced ulnar styloid fracture Treatment Diagnosis: Right wrist pain, right wrist stiffness, decreased Range of motion. Onset: 10/20/15 Certification Dates: 12/01/2015 to 03/02/16 HISTORY History of Current Condition: Patient is a 80 year old male referred to occupational therapy services by Emory Duffy for Right wrist fracture. Order specifics include evaluate and treat, modalities, Range of motion, desensitization, strengthening. Patient is s/p right wrist fracture on 10/20/15 when he fell as a result of tripping on roots. Patient has been wearing a zipper wrist splint since 10/21/15. Past Medical / Surgical History: Past Medical History Diagnosis Date ??? CAD (coronary artery disease) ??? Colon polyp ??? Diverticulosis ??? DM type 2 (diabetes mellitus, type 2) (HCC) ??? Hyperlipidemia ??? Hypertension ??? 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 Medical home patient encounter Medications: Current Outpatient Prescriptions Medication Sig ??? traMADol (ULTRAM) 50 MG tablet 1-2 pills twice daily as needed for pain. ??? [START ON 12/02/2015] traMADol (ULTRAM) 50 MG tablet 1-2 pills twice daily as needed for pain. ??? [START ON 01/02/2016] traMADol (ULTRAM) 50 MG tablet 1-2 pills twice daily as needed for pain. ??? VESICARE 10 MG tablet TAKE ONE TABLET BY MOUTH ONE TIME DAILY ??? clopidogrel (PLAVIX) 75 MG tablet TAKE ONE TABLET BY MOUTH ONE TIME DAILY ??? FLUoxetine (PROZAC) 40 MG capsule Take 1 Cap by mouth one time a day. ??? finasteride (PROSCAR) 5 MG tablet TAKE ONE TABLET BY MOUTH ONE TIME DAILY DO NOT CRUSH ??? rOPINIRole (REQUIP) 0.25 MG tablet TAKE ONE TABLET BY MOUTH THREE TIMES DAILY ??? celecoxib (CELEBREX) 200 MG capsule TAKE ONE CAPSULE BY MOUTH ONE TIME DAILY ??? amLODIPine (NORVASC) 5 MG tablet TAKE ONE TABLET BY MOUTH ONE TIME DAILY ??? potassium chloride CR (K-DUR, KLOR-CON M) 20 MEQ tablet TAKE ONE TABLET BY MOUTH ONE TIME DAILY ??? pantoprazole (PROTONIX) 40 MG delayed-release tablet TAKE ONE TABLET BY MOUTH ONE TIME DAILY DO NOT CRUSH ??? tamsulosin (FLOMAX) 0.4 MG 24 hour capsule Take one cap by mouth once daily, swallow whole, do not crush or chew. ??? gabapentin (NEURONTIN) 300 MG capsule Take 2 Caps by mouth three times a day. ??? Ascorbic Acid (VITAMIN C) 500 MG Cap Chew and swallow one tablet by mouth one time daily ??? potassium chloride (KAYCIEL) 20 MEQ/15ML (10%) liquid Take 15 mL by mouth one time a day. Take with food; do not take liquid full strength, must be diluted in 2-6 parts of fluid. ??? atorvaSTATin (LIPITOR) 40 MG tablet Take 1 Tab by mouth at bedtime. ??? atenolol (TENORMIN) 25 MG tablet Take 1 Tab by mouth one time a day. ??? polyethylene glycol 3350 (MIRALAX) powder MIX 17 GRAMS (ONE CAPFUL) IN LIQUID AND DRINK EVERY DAY FORCONSTIPATION. ??? Multiple Vitamin (MULTIVITAMIN) tablet Take 1 Tab by mouth one time a day. ??? sennosides-docusate sodium (SENOKOT-S) 8.6-50 MG per tablet Take 2 Tabs by mouth one time a day. ??? ASPIRIN LOW DOSE 81 MG tablet 81 mg 1 tablet, ORAL, DAILY, 08/05/09 14:22:55 No current facility-administered medications for this visit. 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 attends therapy with patient today. Current & Previous Functional Baseline: Independent Patient Goals of Treatment: Return to independence Precautions / Barriers to Learning / Treatment: Hard of hearing TESTS and MEASURES Observation: Arrives to Occupational Therapy with splint on. Splint fit loose. No complaints. Range of Motion: Wrist flexion: 0/25; Wrist extension: 0/20 Supination: 0/45; Pronation: 0/60. Radial deviation: 0/10. Ulnar deviation: 0/15 Muscle Performance: Not tested. 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 Tone: Normal Sensation: No reported changes Edema: Mild edema at wrist area. Not measured on this date. Pain: 6-7/10 Coordination: Limited due to pain with movement of the hand. Not formally tested EVALUATION Clinical Impression: Patient is a 80 year old male s/p right wrist fracture. Patient demonstrates the following functional impairments: Pain, decreased Range of motion, decreased strength, decreased coordination, edema; Resulting in the following functional limitations to demonstrate independence withbasic activities of daily living and Instrumental activities of daily living tasks as per Prior Level of Functioning. Prognosis: Good GOALS Short-Term Goals: 4 weeks 1. Patient to demonstrate independence and competence with home exercise program. 2. Patient to increase right finger Range of motion to demonstrate a composite fist to hold 5/5 coins in hand. 3. Patient to increase right hand strength +5# to report improved ease of grasp and hold of coffee cup. 4. Patient to tolerate splint for activity only, and at night as needed with decreased wearing schedule to less than 25% of the time. Long-Term Goals: 12 weeks 1. Patient to demonstrated independence and competence with home exercise program advancements including strengthening with no pain. 2. Patient to increase functional use of right hand in order to grasp and hold bags with carrying groceries with no incidence of dropping items 3. 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 Goals designed in collaboration and agreement with patient and family. PLAN OF CARE Frequency and Duration: 1 times a week for 12 weeks. Interventions: Occupational therapy will focus on self care skills, therapeutic exercises, therapeutic activities, manual therapy, orthotic management and training, modalities (Ultrasound, Infared Light therapy, Estim, Superficial heat) and any other interventions deemed necessary to ongoing assessment to allow patient to work toward his goals as stated above. Patient Education / Home Program: Treatment provided on this date: Patient was educated on wrist fracture home exercise program. Patient was instructed in wrist flexion/extension, sustained MP joint flexion, tendon glide exercises and Active range of motion of thumb. Provided with tubigrip sleeve to assist with decrease in edema. Therapeutic exercise x 10 minutes. Discharge Plan / Criteria for Discharge: Mr. Castillo will be discharged from therapy when established functional goals have been achieved, he is unable to continue to progress toward goals due to complications or lack of participation, he declines further treatment or when the therapist determines that he will no longer benefit from occupational therapy services. Today's Treatment: 25 minutes - 1 Occupational Therapy evaluation, 1 therapeutic exercise unit. Thank you for this referral SUHA Menjivar/Garcia 12/01/2015 -[facility] OCCUP[facility]AP[facility] - OUTPT [address] [place] [phone] cc: Dr. Duffy Referring provider signature will be available on this documentation on the Therapy Plan of Care Approval order. documented in this encounter Plan of Treatment Not on filedocumented as of this encounter Goals Goal Patient Goal Associated Recent Patient-Stated? 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 Note: Formatting of this [...] Name Priority Date/Time Associated Diagnosis Comme nts OCCUPATIONAL THERAPY Routine 12/01/2015 3:47 PM Right wr ist pain EVALUATION CDT Wrist stiffness, right Decreased range of motion THERAPEUTIC EXERCISES Routine 12/01/2015 3:47 PM Right w rist pain CDT Wrist stiffness, right Decreased range of motion documented in this encounter Visit Diagnoses Diagnosis Right wrist pain - Primary Pain in joint, forearm Wrist stiffness, right Decreased range of motion documented in this encounter Orders Procedures Count Last Ordered Date First Ordered Date OCCUPATIONAL THERAPY EVALUATION 1 12/01/2015 THERAPEUTIC EXERCISES 1 12/01/2015 Other Count Last Ordered Date First Ordered Date THERAPY PLAN OF CARE APPROVAL 1 12/01/2015 documented in this encounter Care Teams General Magistrate Relationship Specialty Start Date End Date Deirdre Bedolla PCP - General Family Medicine 06/04/11 01/03/17 MD Nomi [address] [address] Shanice Zarco MD Physician Other Ophthalmology 10/05/[address] [place] [phone] Chuy Falcon MD Physician Other Cardiology 07/16/14 523 [place] [address] Will Dubois MD Physician Other Dermatology 09/21/14 [facility] [address] [place] [phone] Yehuda Quintero MD Physician Other Pain Management 11/02/14 [facility] 9550 [facility] 100 [place], [place] [address] Agustín Ross MD Physician Other Orthopedic Surgery 11/02/14 [facility] [address] [place] [address] [place] [address] Marshal Acosta Other Dental Shaker Operator 10/05/[address] [place] [address] [address] Posey Other Audiology 10/05/13 [place], [place] documented as of this encounter
--- OUTSIDE RECORDS SUMMARY | 2022-06-07 20:53 | XMS_ITS | Encounter Summary ---
:1935 Author Organization [employer] Address [address] [address] Phone Care Team Providers Name Role Phone Deirdre Bedolla MD Primary Care Provider [phone] Shanice Zarco MD Unavailable Chuy Falcon MD Unavailable Will Dubois MD Unavailable Yehuda Quintero MD Unavailable Agustín Ross MD Unavailable Reason for Visit Reason Comments [facility]erral [facility] Encounter Details Date Type Department Care Team Description 03/15/2016 Notes [facility] Lorena Tang Referral ([facility]) 20[address] [place] [address] Social History Tobacco Use Types [...] documented as of this encounter Progress Notes Lorena Tang - 03/15/2016 3:18 PM CDT Referral received and faxed to [facility]. Patient will receive a call to schedule appointment from that facility once patient's chart/ information have been reviewed. For questions, please have patient call [phone] to speak with scheduling office. Thank you documented in this encounter Plan of Treatment Not on filedocumented as of this encounter Goals Goal Patient Goal Associated Recent Patient-Stated? 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 Note: Formatting of this [...] on filedocumented in this encounter Care Teams Enterprise Sales Executive Relationship Specialty Start Date End Date Deirdre Bedolla PCP - General Family Medicine 06/04/11 01/03/17 MD Nomi [address] [phone] Shanice Zarco MD Physician Other Ophthalmology 10/05/[address] [place] [phone] Chuy Falcon MD Physician Other Cardiology 07/16/14 523 [place], [place] [phone] Will Dubois MD Physician Other Dermatology 09/21/14 [facility] [address] [place] [phone] Yehuda Quintero MD Physician Other Pain Management 11/02/14 [facility] [address] [place] [address] Agustín Ross MD Physician Other Orthopedic Surgery 11/02/14 [facility] [address] [facility] 201 [place] [address] Marshal Acosta Other Dental Doctor Of Podiatry 10/05/[address] [place] [address] [address] Posey Other Audiology 10/05/13 [place], [place] documented as of this encounter
--- OUTSIDE RECORDS SUMMARY | 2022-06-07 20:53 | XMS_ITS | Encounter Summary ---
:1935 Author Organization [employer] Address [address] [address] Phone Care Team Providers Name Role Phone Deirdre Bedolla MD Primary Care Provider [phone] Shanice Zarco MD Unavailable Chuy Falcon MD Unavailable Will Dubois MD Unavailable Yehuda Quintero MD Unavailable Agustín Ross MD Unavailable Reason for Visit Reason Comments Diabetes eye exam,micro Blood Pressure Encounter Details Date Type Department Care Team Description 02/20/2016 Office Visit [facility] [place], Medicare annual wellness visit, subsequent (Primary Dx); [facility] Deirdre Mosher MD Type 2 diabetes mellitus without complic ation (HCC); MEDICINE [address] Epidural abscess; 2023 [facility] Benign prostatic hyperplasia with lower urinary tract symptoms, unspecified morphology; [place]ON [address] Heart disease; [place] [address] Essential hypertension, hype rtension with unspecified goal Social History Tobacco Use Types Packs/Day Years Used Date Smoking Tobacco: Never Smokeless Tobacco: Never Alcohol Use Standard Drinks/Week Comments No 0 (1 standard drink = 0.6 oz pure alcoho l) Sex Assigned at Date Recorded Not on file documented as of this encounter Last Filed Vital Signs Vital Sign Reading Time Taken Comments Blood Pressure 145/81 02/20/2016 2:51 PM CDT Pulse 62 02/20/2016 2:51 PM CDT Temperature - - Respiratory Rate - - Oxygen Saturation - - Inhaled Oxygen Concentration - - Weight 92.5 kg (204 lb) 02/20/2016 2:51 PM CDT Height 167.6 cm (5' 6) 02/20/2016 2:51 PM CDT Body Mass Index 32.93 02/20/2016 2:51 PM CDT documented in this encounter Functional Status Functional Status Response Date of Assessment Patient's Vision Adequate to Safely Complete Daily No 04/10/2015 Activities Patient's Memory Adequate to Safely Complete Daily No 11/17/2014 Activities Cognitive Status Response Date of Assessment Patient's Judgment Adequate to Safely Complete Daily No 04/10/2015 Activities documented as of this encounter Patient Instructions Patient InstructionsMaDeirdre Reinoso MD - 02/20/2016 3:51 PM CDT You passed your Annual Wellness Visit except the memory part. If you want, we can order extra testing to see if there are problems there that we need to worry about. It is up to you and Mary Ann. Let adolphw if you are interested. I will have Farhana call Mary Ann to see if you need any refills. See me every 3 months. documented in this encounter Ordered Prescriptions Prescription Sig Dispensed Refills Start Date End Date celecoxib (CELEBREX) 200 Take 1 Cap by mouth 90 Cap 3 MG capsule one time a day. tamsulosin (FLOMAX) 0.4 Take 1 Cap by mouth 90 Cap 3 11/17/2016 MG 24 hour capsule one time a day. SWALLOW WHOLE DO NOT CRUSH, CHEW, OPEN OR SPLIT documented in this encounter Progress Notes Deirdre Bedolla MD - 02/21/2016 10:04 AM CDT [facility] Patient Name: AAMIR CASTILLO Date of Service: 02/20/2016 : 1935 Age: 80Y Sex: M Site MRN: Patient Loc/Room #: [facility] FP/ Provider: Deirdre Bedolla MD, Family Practice OFFICE NOTE SITE: [facility] SUBJECTIVE: Aamir is here today for his annual wellness visit. Please see that documentation. Other issues are diabetes. Blood sugars generally run about in the 120s. He has not had any feelings of lows. He has a history of benign prostatic hypertrophy. Used to see Urology and is wondering if I can just refill his Flomax. 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 He has a spinal cord stimulator in place and uses occasional tramadol. He is not sure if he needs refills of that. He does feel it works very well. During his annual wellness visit with our nurse before my visit he scored a 1 out of 5 on his mini cog. I discussed this with Bill today as I do think there may be some valid concerns here. He did tellme the same story twice in our 30 minutes together today and sometimes was a little bit tangential in answering my questions. I discussed with him that I would like him to get further testing of his memory. He is not sure if he wants to pursue that. He did say it was okay for me to put that on his paperwork and he would talk with his , but he did not give me permission to talk with his aboutit and did not want me to get him set up for something like some neuropsych testing today. PAST MEDICAL HISTORY: 1. Coronary artery disease with an WI in 1989. He had right coronary stenting at that time and then an WI in June 2012 which was a restenosis of that stent. He has bare-metal stents. 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 2. Type 2 diabetes. 3. History of epidural abscess, diskitis and osteomyelitis of the back. ID has taken him off his antibiotics, but he still suffers with chronic pain. He previously was intolerant of all narcotics, but currently is tolerating a little bit of tramadol. He has been on Cymbalta, is still on gabapentin, and again we have tried several different medications and this seems to be the combination that works the best. 4. Reflux. 5. Hyperlipidemia. 6. Hypertension. 7. History of cervical neck fracture. 8. Benign prosthetic hypertrophy. 9. Erectile dysfunction. 10. Hypokalemia. 11. Chronic hearing loss. SOCIAL HISTORY: He is a nonsmoker. They have not sold their house yet, but they have purchased one in [place] and are very much looking forward to moving down there. REVIEW OF SYSTEMS: He does have poor balance, especially when he turns around. He has a history of some depression, but denies any depressive symptoms today. EXAM: Height is 66, weight 204.6, blood pressure 145/81. Generally - pleasant, nontoxic, no acute distress. HEENT - head atraumatic, normocephalic. Conjunctivae are clear. TMs clear. Heart is regular in rate and rhythm. No murmurs. No rubs. Lungs are clear. No wheezes, no rales. Extremities - no edema. He scored 1 out of 5 on his mini cog. ASSESSMENT AND PLAN: 1. Annual wellness visit. Please see that documentation. I do have some concerns about his memory that were raised by his mini cog, but also by the fact that he did tell me the exact same story back hiren in his office visit today. I would strongly recommend further evaluation with neuropsych testing and he is going to talk about that with his . 2. Type 2 diabetes. He just had an A1c done in the end of January. We do that every 6 months, but he does see me every 3 months. 3. Chronic back pain. We will call his to see if he needs a refill of his tramadol. I do think this is completely reasonable use given that he has had this significant spinal infection. 4. Benign prostatic hyperplasia. He would like me to start refilling his Flomax and does not want tosee Urology anymore. I think that is reasonable. 5. Coronary artery disease, asymptomatic. He is appropriately on a high potency statin. Just had lipids done in January. 6. Hypertension. His blood pressure was high today when he saw the annual wellness visit nurse and he left before my nurse had a chance to recheck that. We will see what that is next time I see him. Traditionally it has not been an issue. He will see me in 3 months and I probably would do labs at that time. Deirdre Bedolla MD [facility] cc: /GARRETT Job ID: [id number] /kt Document ID: [id number] documented in this encounter Miscellaneous Notes Clinical Note - Serenity Miranda LPN - 02/06/2016 12:54 PM CDT This chart was prepped for visit by Serenity Miranda LPN on 02/06/2016. documented in this encounter Plan of Treatment Not on filedocumented as of this encounter Goals Goal Patient Goal Associated Recent Patient-Stated? 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 celecoxib (CELEBREX) 200 TAKE ONE CAPSULE BY 5 02/20/2016 MG capsule MOUTH ONE TIME DAILY documented as of this encounter Care Teams Retail Salesperson Relationship Specialty Start Date End Date Deirdre Bedolla PCP - General Family Medicine 06/04/11 01/03/17 MD Nomi [address] [id number] Shanice Zarco MD Physician Other Ophthalmology 10/05/13 [address] [place] [phone] Chuy Falcon MD Physician Other Cardiology 07/16/14 [address] [place], [place] [address] Will Dubois MD Physician Other Dermatology 09/21/14 [facility] [address] [place] [phone] Yehuda Quintero MD Physician Other Pain Management 11/02/14 [facility] 9550 [facility] 100 [place], [place] [id number] Agustín Ross MD Physician Other Orthopedic Surgery 11/02/14 [facility] [address] [address] Marshal Acosta Other Dental Air Technician 10/05/13 [address] [place], [place] [phone] Dr Posey Other Audiology 10/05/13 [place], [place] documented as of this encounter
--- OUTSIDE RECORDS SUMMARY | 2022-06-07 20:53 | XMS_ITS | Encounter Summary ---
:1935 Author Organization [employer] Address [address] [address] Phone Care Team Providers Name Role Phone Rima Bedolla MD Primary Care Provider [phone] Shanice Zarco MD Unavailable Chuy Falcon MD Unavailable Will Dubois MD Unavailable Yehuda Quintero MD Unavailable Agustín Ross MD Unavailable Reason for Visit Reason Comments Refill Request prozac Encounter Details Date Type Department Care Team Description 03/08/2016 Refill [facility] Riaz Bedolla efill Request (prozac) FAMILY MEDICINE Rima Mosher MD 2023 [facility] [address] [address] [place], [place] [address] (Wo rk) Social History Tobacco Use Types [...] Sig Dispensed Refills Start Date End Date FLUoxetine (PROZAC) 40 MG TAKE ONE CAPSULE BY 90 Cap 3 0 03/13/2016 capsule MOUTH ONE TIME DAILY documented in this encounter Miscellaneous Notes Telephone Encounter - Ashli Keller RN - 03/10/2016 5:29 PM CDT Rima Bedolla MD, Nurse Care Line is unable to refill prozac due to a major drug interaction with ultram. Refill request pended for your authorization. Telephone Encounter - [employer], Refill Wizamarylu - 03/08/2016 10:19 AM CDT FLUoxetine (PROZAC) 40 MG capsule [Pharmacy Med Name: FLUOXETINE HCL 40 MG CAPSULE] Protocol: Psychiatry: Antidepressants -> Refill x 12 months (until due for an office visit) Last qualifying visit: 02/20/2016 (with RIMA BEDOLLA) Next scheduled visit: None Last ordered: 09/05/2015 (185 days ago) QTY: 90, Refills: 1, Sig: take 1 cap by mouth one time a day. (changed but equivalent) Powered by [employer], Reference: [id number], 03/08/2016 10:19:19 AM CDT, Pool: KLEVER ([id number]) documented in this encounter Plan of Treatment Not on filedocumented as of this encounter Goals Goal Patient Goal Associated Recent Patient-Stated? 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 Note: Formatting of [...] Sig Discontinue Reason Start Date End Date FLUoxetine (PROZAC) 40 MG Take 1 Cap by mouth 09/05/19 16 03/08/2016 capsule one time a day. documented as of this encounter Care Teams Tire Spotter Relationship Specialty Start Date End Date Rima Bedolla PCP - General Family Medicine 06/04/11 01/03/17 MD Nomi [address] [id number] Shanice Zarco MD Physician Other Ophthalmology 10/05/[address] [place] [phone] Chuy Falcon MD Physician Other Cardiology 07/16/14 523 [place], [place] [address] Will Dubois MD Physician Other Dermatology 09/21/14 [facility] [address] [place] [phone] Yehuda Quintero MD Physician Other Pain Management 11/02/14 [facility] [address] [address] Agustín Ross MD Physician Other Orthopedic Surgery 11/02/14 [facility] [address] [place] [address] Marshal Acosta Other Dental Diesel Trailer Mechanic 10/05/[address] [place] [id number] Posey Other Audiology 10/05/13 [place], [place] documented as of this encounter
--- OUTSIDE RECORDS SUMMARY | 2022-06-07 20:53 | XMS_ITS | Encounter Summary ---
:1935 Author Organization [employer] Address [address] [address] Phone Care Team Providers Name Role Phone Deirdre Bedolla MD Primary Care Provider [phone] Shanice Zarco MD Unavailable Chuy Falcon MD Unavailable Will Dubois MD Unavailable Yehuda Quintero MD Unavailable Agustín Ross MD Unavailable Reason for Visit Reason Comments Refill Request gabapentin, protonix Encounter Details Date Type Department Care Team Description 02/01/2016 Refill [facility] Riaz Bedolla efpacheco Request FAMILY MEDICINE Deirdre Mosher MD (gabapentin, protonix) 2023 [facility] [address] [address] [place], [place] [address] (Wo rk) Social History Tobacco Use Types [...] Sig Dispensed Refills Start Date End Date gabapentin (NEURONTIN) TAKE TWO CAPSULES BY 540 Cap 2 300 MG capsule MOUTH THREE TIMES DAILY pantoprazole (PROTONIX) TAKE ONE TABLET BY 90 Tab 2 01/0612/02/2016 40 MG delayed-release MOUTH ONE TIME DAILY tablet DO NOT CRUSH documented in this encounter Miscellaneous Notes Telephone Encounter - Nyla Sauceda RN - 02/02/2016 10:42 PM CDT The refill request is Ok to authorize per the [facility] Medication Refill Protocol. Telephone Encounter - Utility, Refill Wizard - 02/01/2016 2:29 PM CDT 1) gabapentin (NEURONTIN) 300 MG capsule [Pharmacy Med Name: GABAPENTIN 300 MG CAPSULE] - REFILL: 9 months - PROTOCOL: Neurology: Anticonvulsants - Gabapentin - RATIONALE: This refill should last until the patient is due for an office visit. - LAST QUALIFYING VISIT WITH DEIRDRE BEDOLLA K: 11/02/2015 - NEXT SCHEDULED VISIT IN FAMILY PRACTICE: 02/07/2016 - MEDICATION STARTED: 10/10/2012 - LAST REFILLED ON: 11/19/2014, QTY: 810, Refills: 3, Sig: take 2 caps by mouth three times a day. (changed but equivalent) - LAST FILL DATE FROM PHARMACY: 10/07/2015 Powered by [employer], Reference: [id number], 02/01/2016 2:29:53 PM CDT, Pool: KLEVER ([id number]) 2) pantoprazole (PROTONIX) 40 MG delayed-release tablet [Pharmacy Med Name: PANTOPRAZOLE SOD DR 40 MG TAB] - REFILL: 9 months - PROTOCOL: Gastroenterology: Antiulcer - Proton Pump Inhibitors - RATIONALE: This refill should last until the patient is due for an office visit. - LAST QUALIFYING VISIT WITH DEIRDRE BEDOLLA K: 11/02/2015 - NEXT SCHEDULED VISIT IN FAMILY PRACTICE: 02/07/2016 - MEDICATION STARTED: 10/30/2012 - LAST REFILLED ON: 12/31/2014, QTY: 90, Refills: 3, Sig: take one tablet by mouth one time daily donot crusPanelClaw (unchanged) Powered by [employer], Reference: [id number], 02/01/2016 2:29:53 PM CDT, Pool: KLEVER ([id number]) documented in this encounter Plan of Treatment Not on filedocumented as of this encounter Goals Goal Patient Goal Associated Recent Patient-Stated? 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 Note: Formatting of this [...] Sig Discontinue Reason Start Date End Date gabapentin (NEURONTIN) Take 2 Caps by 11/19/2014 300 MG capsule mouth three times a day. pantoprazole (PROTONIX) TAKE ONE TABLET BY 12/31/2014 02/01/2016 40 MG delayed-release MOUTH ONE TIME tablet DAILY DO NOT CRUSH documented as of this encounter Care Teams Bdr Relationship Specialty Start Date End Date Deirdre Bedolla PCP - General Family Medicine 06/04/11 01/03/17 MD Nomi [address] [id number] Shanice Zarco MD Physician Other Ophthalmology 10/05/[address] [place] [phone] Chuy Falcon MD Physician Other Cardiology 07/16/14 [address] [place], [place] [phone] Will Dubois MD Physician Other Dermatology 09/21/14 [facility] [address] [place] [phone] Yehuda Quintero MD Physician Other Pain Management 11/02/14 [facility] 9550 [facility] 100 [place] [address] Agustín Ross MD Physician Other Orthopedic Surgery 11/02/14 [facility] [address] [place] [address] Marshal Acosta Other Dental Boat Camp Operator 10/05/13 [address] [place], [place] [phone] Dr Posey Other Audiology 10/05/13 [place], [place] documented as of this encounter
--- OUTSIDE RECORDS SUMMARY | 2022-06-07 20:53 | XMS_ITS | Encounter Summary ---
:1935 Author Organization [employer] Address [address] [address] Phone Care Team Providers Name Role Phone Deirdre Bedolla MD Primary Care Provider [phone] Shanice Zarco MD Unavailable Chuy Falcon MD Unavailable Will Dubois MD Unavailable Yehuda Quintero MD Unavailable Agustín Ross MD Unavailable Reason for Visit Reason Comments Referral [facility] Encounter Details Date Type Department Care Team Description 02/06/2016 Notes [facility] Lorena Tang Referral ([facility]) 2023 [place] [address] Social History Tobacco Use Types [...] this encounter Progress Notes Lorena Tang - 02/06/2016 9:51 AM CDT Referral received and faxed to [facility]. Patient will receive a call to schedule appointment from that facility once patient's chart/ information have been reviewed. For questions, please have patient call [phone] to speak with scheduling office. Thank you documented in this encounter Plan of Treatment Not on filedocumented as of this encounter Goals Goal Patient Goal Associated Recent Patient-Stated? 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 Note: Formatting of [...] on filedocumented in this encounter Care Teams Straight Cutter Relationship Specialty Start Date End Date Deirdre Bedolla PCP - General Family Medicine 06/04/11 01/03/17 MD Nomi [address] [address] Shanice Zarco MD Physician Other Ophthalmology 10/05/[address] [place] [phone] Chuy Falcon MD Physician Other Cardiology 07/16/14 [address] [place], [place] [address] Will Dubois MD Physician Other Dermatology 09/21/14 [facility] [address] [place] [phone] Yehuda Quintero MD Physician Other Pain Management 11/02/14 [facility] [address] [place] [address] Agustín Ross MD Physician Other Orthopedic Surgery 11/02/14 [facility] [address] [address] Marshal Acosta Other Dental Commercial Relationship Manager 10/05/[address] [place] [address] [address] Posey Other Audiology 10/05/13 [place], [place] documented as of this encounter
--- OUTSIDE RECORDS SUMMARY | 2022-06-07 20:53 | XMS_ITS | Encounter Summary ---
:1935 Author Organization [employer] Address [address] [address] Phone Care Team Providers Name Role Phone Rima Bedolla MD Primary Care Provider [phone] Shanice Zarco MD Unavailable Chuy Falcon MD Unavailable Will Dubois MD Unavailable Yehuda Quintero MD Unavailable Agustín Ross MD Unavailable Reason for Visit Reason Comments Refill Request Tramadol--Refused. Encounter Details Date Type Department Care Team Description 03/08/2016 Refill [facility] Riaz Bedolla efpacheco Request FAMILY MEDICINE Rima Mosher MD (Tramadol--Refused. ) 2023 [facility] [address] [address] [place], [place] [address] (Wo rk) Social History Tobacco Use Types [...] this encounter Miscellaneous Notes Telephone Encounter - Yasmani Ham RN - 03/09/2016 5:15 AM CDT Per the [facility] Opioid Refill Policy, this primary care patient needs a pain assessment office visit prior to another refill of this medication. Telephone Encounter - Alan Refill Wizamarylu - 03/08/2016 10:19 AM CDT traMADol (ULTRAM) 50 MG tablet [Pharmacy Med Name: TRAMADOL HCL 50 MG TABLET] Protocol: Analgesics: Opioid Agonists - Tramadol (controlled substance) -> Opioid Contract was not found within the last 5 years. Last qualifying visit: 02/20/2016 (with RIMA BEDOLLA) Next scheduled visit: None Last ordered: 01/02/2016 (66 days ago) QTY: 60, Refills: 0, Si-2 pills twice daily as needed forpain. (changed) Powered by [employer], Reference: [id number], 03/08/2016 10:19:19 AM CDT, Pool: KLEVER ([id number]) documented in this encounter Plan of Treatment Not on filedocumented as of this encounter Goals Goal Patient Goal Associated Recent Patient-Stated? 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 Note: Formatting of [...] on filedocumented in this encounter Care Teams Residential Sales Associate Relationship Specialty Start Date End Date Rima Bedolla PCP - General Family Medicine 06/04/11 01/03/17 MD Nomi [address] [phone] Shanice Zarco MD Physician Other Ophthalmology 10/05/[address] [place] [phone] Chuy Falcon MD Physician Other Cardiology 07/16/14 [address] [place], [place] [address] Will Dubois MD Physician Other Dermatology 09/21/14 [facility] [address] [place] [phone] Yehuda Quintero MD Physician Other Pain Management 11/02/14 [facility] 9550 [facility] 100 [place] [address] Agustín Ross MD Physician Other Orthopedic Surgery 11/02/14 [facility] [address] [facility] 201 [place] [address] Marshal Acosta Other Dental Correspondence Specialist 10/05/13 [address] [place], [place] [phone] Dr Posey Other Audiology 10/05/13 [place], [place] documented as of this encounter
--- OUTSIDE RECORDS SUMMARY | 2022-06-07 20:53 | XMS_ITS | Encounter Summary ---
:1935 Author Organization [employer] Address [address] [address] Phone Care Team Providers Name Role Phone Deirdre Bedolla MD Primary Care Provider [phone] Shanice Zarco MD Unavailable Chuy Falcon MD Unavailable Will Dubois MD Unavailable Yehuda Quintero MD Unavailable Agustín Ross MD Unavailable Pippa Noel RN Unavailable Unavailable Reason for Visit Reason Comments Blood Pressure Check no charge bp check Encounter Details Date Type Department Care Team Description 11/10/2015 [facility] - MAIN Ancillary, [facility] Blood Pressure Check HEALTH/NURSE [address] Treatment Main (no charge bp check) VISIT Cashiers Nurse [place]HEEM DELEON [address] Social History Tobacco Use Types Packs/Day [...] documented as of this encounter Progress Notes Deloris Liz LPN - 11/10/2015 10:41 AM CDT Pt arrived for blood pressure check per phone call on 11-02-15 with Pippa Reece RN per her note recommend that he hold his Norvasc as well for the next week or two, and then can get his blood pressure checked here with our treatment nurse. This was due to a low bp at YA. At 1045 pt bp was 126/78 with a pulse of 66. Pt states he has not restarted his medication at this time. Inspector Machined Parts at this timereviewed high bp sx to be aware of such as sudden or severe headache, nausea or vomiting, facial/jawpain, chest pain/heaviness, shortness of breath, confusion, changes in your vision, or nosebleeds. Inspector Machined Parts also reviewed with pt possible low bp s/s such as dizziness, fainting, lack of concentration, blurred vision, nausea, rljt-dyjtmn-vicp skin, rapid-shallow breathing, fatigue, depression or thirst.Inspector Machined Parts also discussed the following, the importance of resting/sitting for at least 10 minutes before you take your blood pressure as this allows your heart to return to its resting rate for a more accurate blood pressure. The importance of the correct blood pressure cuff size and placement was discussed with pt. Other attributing factors when taking blood pressure that may influence the outcome suchas pain, anxiousness, caffeine/nicotine intake, movement or talking while taking blood pressure, stress, holding your breath or even a full bladder are just a few things that can raise the blood pressure. Information on blood pressure was given to pt. Pt does c/o continued pain in back, leg and well all over but they are working with me on that. Pt denied any of the above mentioned sx, pt is A&O x3, pink in color and denies any questions or concerns at this time and will follow up as needed. -Deloris Liz LPN documented in this encounter Plan of Treatment Not on filedocumented as of this encounter Goals Goal Patient Goal Associated Recent Patient-Stated? 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 Note: Formatting of this [...] as of this encounter Visit Diagnoses Diagnosis Essential hypertension - Primary Unspecified essential hypertension documented in this encounter Care Teams Master Welder Relationship Specialty Start Date End Date Chioma PCP - General Family Medicine 06/04/11 01/03/17 Deirdre Mosher MD [address] [phone] Shanice Zarco MD Physician Other Ophthalmology 10/05/13 [address] [place] [phone] Chuy Falcon, Physician Other Cardiology 07/16/14 523 [place], [place] [phone] Will Dubois MD Physician Other Dermatology 09/21/14 [facility] [address] [place] [phone] Yehuda Quintero MD Physician Other Pain Management 11/02/14 [facility] 9550 [facility] 100 [place] [address] Agustín Ross MD Physician Other Orthopedic Surgery 11/02/14 [facility] [address] [address] Pippa Noel, RN RN Die Hardener 02/11/15 11/10/15 Marshal Acosta Other Dental Ruffler 10/05/13 [address] [place], [place] [phone] Dr Posey Other Audiology 10/05/13 [place], [place] documented as of this encounter
--- OUTSIDE RECORDS SUMMARY | 2022-06-07 20:53 | XMS_ITS | Encounter Summary ---
:1935 Author Organization [employer] Address [address] [address] Phone Care Team Providers Name Role Phone Deirdre Bedolla MD Primary Care Provider [phone] Shanice Zarco MD Unavailable Chuy Falcon MD Unavailable Will Dubois MD Unavailable Yehuda Quintero MD Unavailable Agustín Ross MD Unavailable Reason for Visit Therapy (Routine) - Closed Specialty Diagnoses / Procedures Referred By Contact Refer red To Contact Occupational Therapy Diagnoses PER INJ-10/21-Right Wrist FX Emory Duffy MD Becker, Kimberly J, Procedures [id number] 2013 [facility] OTR/L FAHEEM BURDICK [phone] 204 [facility] [place], [place] [address] Phone: Fax: Referral ID Status Reason Start Date Expiration Date Visits Requ ested Visits Authorized [id number] Closed 12/01/2015 12/19/2015 3 3 Encounter Details Date Type Department Care Team Description 12/16/2015 Office Visit [facility] Amie Eduardo wrist pain (Primary Dx); Center Occupational J, OTR/L Wrist stiffness, right; Therapy - Outpt 523 [facility] Decreased range of motion 2015 [facility] FAHEEM BURDICK [id number] FAHEEM Burdick [id number] Social History Tobacco Use Types Packs/Day Years [...] as of this encounter Progress Notes Amie Eduardo, OTR/L - 12/16/2015 2:18 PM CDT OCCUPATIONAL THERAPY PROGRESS NOTE SUBJECTIVE: This patient is reporting that his arm is doing well. Reports he is doing his exercises. States he needs to use his right hand with his left hand to carry a gallon of milk. Has not been wearing brace, unless he thinks he needs it. Pain: 1/10 on a scale from 0-10 with 10 being the worst. 5-6/10 after exercises. OBJECTIVE: Treatment today included: Manual therapy x 12 minutes for light soft tissue mobilization. Edema improved. Instructed on comfort massage and desensitization. Therapeutic exercise for 28 minutes of AROM of the finger for flexion and extension, thumb for flexion and extension and wrist for flexion, extension, pronation, supination, radial deviation and ulnar deviation. Tremors noted with against gravitywrist extension. PROM of the wrist for flexion and extension and strengthening of the hand for cut off machine unloader.Cues for positioning with the exercises. Decrease recall of appropriate wrist positions for gravity eliminated Range of motion. Provided with yellow therafoam. Attempted wrist strengthening with 2 oz weight, but patient unable to tolerate. Encouraged to complete against gravity Range of motion exercises with no resistance. 5 reps x 1 set up to twice a day. Paraffin for involved hand for 10 dips for 10 minutes for tissue warming and pain relief. Reported discomfort with position of wrist, but improved with change in resting position. Patient reported increased pain at the end of the session at rest,but then would later state that it was fine. States was having pain with wrist extension. Discussed with patient extensively the exercises that we completed today. Discussed decreasing the number of repetitions. Therapist discussed with patient potentially overdoing activity and exercises. Encouraged to completed within tolerance. Range of Motion: Wrist flexion: 0/45; prior 0/25; Wrist extension: 0/45; prior 0/20 Supination: 0/85; prior 0/45; Pronation: 0/70; prior 0/60. Radial deviation: 0/15; prior 0/10. Ulnar deviation: 0/20;prior 0/15 Right Hand Sack Sewer: 12 Lb.s Lateral Pinch: 7 Lb.s Barger Pinch: 2 Lb.s Left Hand Sack Sewer: 51 Lb.s Lateral Pinch: 15 Lb.s Barger Pinch: 16 Lb.s Progress Assessment: Improving with treatment. ASSESSMENT: Patient is a 80 year old Male s/p 8 wks s/p Right Wrist intraarticular distal radius fracture and non displaced ulnar styloid fracture. Note the following improvements: Improved Range of motion. Progress to goals: patient reports increased functional use of his hand. Reports still tremors with completing task of picking up his coffee cup. Continued weakness with slight advancement to strengthening today. PLAN: Continue plan of care, Continue at 1 visit per week. Current interventions appropriate. Continue with home exercise program within ability. Patient in agreement with current treatment plan. Response to treatment: Increased pain with motion at end of session. Hand fatigued. [id number] [phone] [id number] Total Treatment Time: 56 minutes. [address] Therapeutic Exercise (2 units) and 58260 Manual Therapy (1 unit) Provider: MARCELA Isidro/Garcia, CLT Amie Eduardo OTR/L - 12/16/2015 1:30 PM CDT Occupational Therapy Discharge Summary: Patient was seen in Occupational Therapy from 12/01/15 to 12/19/15 for a total of 2 visits. Patient discharged from Occupational Therapy due to no further Occupational Therapy services provided. Patient cancelled or did not show for remaining appointments scheduled. Services provided:home program, manual therapy, therapeutic exercise and fluidotherapy SUBJECTIVE: Patient reports symptoms are not improved. OBJECTIVE CHANGES: See progress notes Discharge Assessment: goals not met and goals status unknown secondary to patient did not return forsubsequent follow up visits. PLAN: Discharge from Occupational Therapy at this time. Attendance and participation not sufficient to achieve goals. Provider: Amie Eduardo MA OTR/L, CLT documented in this encounter Plan of Treatment Not on filedocumented as of this encounter Goals Goal Patient Goal Associated Recent Patient-Stated? 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 Note: Formatting of this [...] Name Priority Date/Time Associated Diagnosis Comme nts MANUAL THER Routine 12/16/2015 3:22 PM Right wrist p ain TECH,1+REGIONS,EA 15 MIN CDT Wrist s tiffness, right Decreased range of motion THERAPEUTIC EXERCISES Routine 12/16/2015 3:22 PM Right w rist pain CDT Wrist stiffness, right Decreased range of motion documented in this encounter Visit Diagnoses Diagnosis Right wrist pain - Primary Pain in joint, forearm Wrist stiffness, right Decreased range of motion documented in this encounter Orders Procedures Count Last Ordered Date First Ordered Date MANUAL THER TECH,1+REGIONS,EA 15 MIN 1 12/16/2015 THERAPEUTIC EXERCISES 1 12/16/2015 documented in this encounter Care Teams Repair Servicer Relationship Specialty Start Date End Date Deirdre Bedolla PCP - General Family Medicine 06/04/11 01/03/17 MD Nomi [address] [phone] Shanice Zarco MD Physician Other Ophthalmology 10/05/[address] [place] [phone] Chuy Falcon MD Physician Other Cardiology 07/16/14 523 [place], [place] [phone] Will Dubois MD Physician Other Dermatology 09/21/14 [facility] 1510 [address] [address] Yehuda Quintero MD Physician Other Pain Management 11/02/14 [facility] 9550 [facility] 100 [place], [place] [phone] Agustín Ross MD Physician Other Orthopedic Surgery 11/02/14 [facility] [address] [phone] Marshal Acosta Other Dental Stator Plate Washer 10/05/13 402 [place], [place] [phone] Dr Posey Other Audiology 10/05/13 [place], [place] documented as of this encounter
--- OUTSIDE RECORDS SUMMARY | 2022-06-07 20:53 | XMS_ITS | Encounter Summary ---
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 Note: Formatting of this [...] Comme nts XR WRIST RIGHT 3 OR 12/01/2015 1:10 PM Re sults for this MORE VIEWS CDT procedure are i n the results section. documented in this encounter Results XR WRIST RIGHT 3 OR MORE VIEWS (12/01/2015 1:10 PM CDT) Anatomical Region Laterality Modality Wrist Radiographic Imaging Specimen Anatomical Collection Method Collection Time Receive d Time (Source) Location / / Volume Laterality 12/01/2015 1:10 PM 6 1:10 CDT PM CDT Narrative 12/01/2015 1:10 PM CDT This document is currently in Final Status Exam The actual exam was performed at [facility] This exam does not have a report residin g in this EMR. Procedure Note Unlisted, Provider - 05/07/2018Formattin g of this note might be different from the original. This document is currently in Final Stat us Exam The actual exam was performed at [facility] This exam does not have a report residin g in this EMR. Pcp Elsewhere [facility] documented in this encounter Visit Diagnoses Diagnosis Colon polyps - Primary Benign neoplasm of colon documented in this encounter Care Teams Meeting Specialist Relationship Specialty Start Date End Date Deirdre Bedolla PCP - General Family Medicine 06/04/11 01/03/17 MD Nomi [address] [phone] Shanice Zarco MD Physician Other Ophthalmology 10/05/[address] [place] [phone] Chuy Falcon MD Physician Other Cardiology 07/16/14 523 [place], [place] [phone] Will Dubois MD Physician Other Dermatology 09/21/14 [facility] [address] [place] [phone] Yehuda Quintero MD Physician Other Pain Management 11/02/14 [facility] 9550 [facility] 100 [place] [address] Agustín Ross MD Physician Other Orthopedic Surgery 11/02/14 [facility] [address] [phone] Marshal Acosta Other Dental Patent Engineer 10/05/13 402 [place], [place] [address] Dr Posey Other Audiology 10/05/13 [place], [place] documented as of this encounter
--- OUTSIDE RECORDS SUMMARY | 2022-06-07 20:53 | XMS_ITS | Encounter Summary ---
:1935 Author Organization [employer] Address [address] [address] Phone Care Team Providers Name Role Phone Deirdre Bedolla MD Primary Care Provider [phone] Shanice Zarco MD Unavailable Chuy Falcon MD Unavailable Will Dubois MD Unavailable Yehuda Quintero MD Unavailable Agustín Ross MD Unavailable Reason for Visit Reason Onset Date Comments Refill Request 05/04/2016 Encounter Details Date Type Department Care Team Description 05/04/2016 Refill [facility] Jeremie Kay, Refill Request 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 Note: Formatting of [...] traMADol (ULTRAM) 50 MG 1-2 pills twice 12/02/2015 1 tablet daily as needed for pain. documented as of this encounter Care Teams Marketing Designer Relationship Specialty Start Date End Date Deirdre Bedolla PCP - General Family Medicine 06/04/11 01/03/17 MD Nomi [address] [phone] Shanice Zarco MD Physician Other Ophthalmology 10/05/[address] [place] [phone] Chuy Falcon MD Physician Other Cardiology 07/16/14 523 [place], [place] [phone] Will Dubois MD Physician Other Dermatology 09/21/14 [facility] [address] [place] [phone] Yehuda Quintero MD Physician Other Pain Management 11/02/14 [facility] [address] [phone] Agustín Ross MD Physician Other Orthopedic Surgery 11/02/14 [facility] [address] [place] [place] [address] Marshal Acosta Other Dental Accounting Associate 10/05/[address] [place] [address] [address] Posey Other Audiology 10/05/13 [place], [place] documented as of this encounter
--- OUTSIDE RECORDS SUMMARY | 2022-06-07 20:53 | XMS_ITS | Encounter Summary ---
:1935 Author Organization [employer] Address [address] [address] Phone Care Team Providers Name Role Phone Deirdre Bedolla MD Primary Care Provider [phone] Shanice Zarco MD Unavailable Chuy Falcon MD Unavailable Will Dubois MD Unavailable Yehuda Quintero MD Unavailable Agustín Ross MD Unavailable Reason for Visit Reason Onset Date Comments Refill Request 05/04/2016 Encounter Details Date Type Department Care Team Description 05/04/2016 Refill [facility] Britt Ceja ra, RN Refill Request MEDICINE 2023 [place], [place] [address] Social History Tobacco Use Types Packs/Day Years [...] Lorena a 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 Note: Formatting of [...] on filedocumented in this encounter Care Teams Police Surgeon Relationship Specialty Start Date End Date Deirdre Bedolal PCP - General Family Medicine 06/04/11 01/03/17 MD Nomi [address] [phone] Shanice Zarco MD Physician Other Ophthalmology 10/05/13 [address] [place] [address] Chuy Falcon MD Physician Other Cardiology 07/16/14 523 [place], [place] [phone] Will Dubois MD Physician Other Dermatology 09/21/14 [facility] [address] [place] [phone] Yehuda Quintero MD Physician Other Pain Management 11/02/14 [facility] 9550 [facility] 100 [place] [address] Agustín Ross MD Physician Other Orthopedic Surgery 11/02/14 [facility] [address] [place] [place] [address] Marshal Acosta Other Dental Epoxy Specialist 10/05/13 [address] [place], [place] [phone] Dr Posey Other Audiology 10/05/13 [place], [place] documented as of this encounter
--- OUTSIDE RECORDS SUMMARY | 2022-06-07 20:53 | XMS_ITS | Encounter Summary ---
:1935 Author Organization [employer] Address [address] [address] Phone Care Team Providers Name Role Phone Deirdre Bedolla MD Primary Care Provider [phone] Shanice Zarco MD Unavailable Chuy Falcon MD Unavailable Will Dubois MD Unavailable Yehuda Quintero MD Unavailable Agustín Ross MD Unavailable Reason for Visit Reason Comments Annual Medicare Wellness Visit letter started Encounter Details Date Type Department Care Team Description 02/20/2016 Office Visit Kary Quesada Routine general [facility] Sommers RN medical examination at 2023 [facility] (Primary Dx) FAHEEM Burdick [id number] Social History Tobacco Use Types Packs/Day Years [...] documented as of this encounter Progress Notes Kary Leon, RN - 02/21/2016 11:42 AM CDT Medicare Annual Wellness Visit Vitals for this visit There were no vitals filed for this visit. With participation of patient, health history and health assessment was reviewed and updated. Medical History Past Medical History Diagnosis Date ??? CAD (coronary artery disease) with history of NM and stent placement ??? Colon polyp ??? Diverticulosis ??? DM type 2 (diabetes mellitus, type 2) (HCC) ??? Hyperlipidemia ??? Hypertension ??? 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 Medical home patient encounter Surgical History Past Surgical History Procedure Laterality Date ??? Colonoscopy 05/02/2006 Sadie ADAMS, Junito Ghotra ??? Coronary angioplasty with stent placement ??? Back surgery L4 laminectomy, multiple level cervical fusion ??? Joint replacement Left left hip ??? Shoulder surgery Right right rotator cuff ??? Cataract removal ??? Tonsillectomy and adenoidectomy ??? Appendectomy ??? Hemorrhoid surgery ??? Spine surgery 10/15/2013 Spinal Cord Stimulator (userfoxtronic), Dr Ramey at [facility] ??? Cmplx cmg/void pressure study 04/07/2014 Dr. Ruiz ??? Colonoscopy 01/31/2011 5 yr f/u Social History Social History Social History ??? Marital status: Spouse name: Mary Ann ??? Number of children: 4 ??? 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 Smoking status: Never Smoker ??? Smokeless tobacco: Never Used ??? Alcohol use No ??? Drug use: None ??? Sexual activity: Not Asked Other Topics Concern ??? Falls Yes Social History Narrative Retired and lives with . Have four sons, two that live in the [facility] and two that live in other states. 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 Enjoys being outside, sports games, traveling, and photography. Family History No family history on file. Allergies No Known Allergies Current Medications, Supplements and Vitamins Current Outpatient Prescriptions Medication Sig ??? tamsulosin (FLOMAX) 0.4 MG 24 hour capsule Take 1 Cap by mouth one time a day. SWALLOW WHOLE DO NOT CRUSH, CHEW, OPEN OR SPLIT ??? celecoxib (CELEBREX) 200 MG capsule Take 1 Cap by mouth one time a day. ??? gabapentin (NEURONTIN) 300 MG capsule TAKE TWO CAPSULES BY MOUTH THREE TIMES DAILY ??? pantoprazole (PROTONIX) 40 MG delayed-release tablet TAKE ONE TABLET BY MOUTH ONE TIME DAILY DO NOT CRUSH ??? traMADol (ULTRAM) 50 MG tablet 1-2 pills twice daily as needed for pain. ??? traMADol (ULTRAM) 50 MG tablet 1-2 pills twice daily as needed for pain. ??? traMADol (ULTRAM) 50 MG tablet 1-2 [...] TABLET BY MOUTH THREE TIMES DAILY ??? amLODIPine (NORVASC) 5 MG tablet TAKE ONE TABLET BY MOUTH ONE TIME DAILY ??? potassium chloride CR (K-DUR, KLOR-CON M) 20 MEQ tablet TAKE ONE TABLET BY MOUTH ONE TIME DAILY ??? Ascorbic Acid (VITAMIN C) 500 MG [...] No current facility-administered medications for this visit. Health Review Summary Annual Wellness Visit Questionnaire Answers 02/20/2016 Daily average servings of fruits and vegetables 5 Daily average servings of fiber 2 Daily average servings of fat 0 Number of days of exercise per week Zero Special diet Yes During an average week, how many days with 30min moderate activity Zero Physical activity in past 30days Yes Factors preventing more physically active Pain How often stress is a problem Sometimes How often get social and emotional support Always Need help preparing meals No Need help with transportation No Need help with shopping No Need help with taking medications No Need help managing finances Yes Need help in other ADLs No Home Structure Multiple Story Home Living alone? No People live with Spouse Throw rugs No Poor lighing No Slippery bathtub/shower No Adequate grab bars in the bathroom Yes Handrails on stairs and steps Yes Working smoke alarms Yes Working carbon monoxide alarm Yes Problems with elimination Yes Type of eliminatin problems Urgency Fall in the last six months Yes Afraid to fall do to balance or walking problems Yes Fallen/hurt self in last year Yes Trouble hearing radio or television Yes Medical Equipment Cane, Glasses/contact lenses, Hearing aid DME Suppliers na Other providers involved in Care na Speical Diet diabetic Memory Screen Mini-Cog Clock Draw: 0 Mini-Cog Word Recall: 1 Mini-Cog Total Score: 1 Current providers and suppliers Preferred pharmacy: [facility] [id number] [place] [address] [facility] Patient Care Team Relationship Specialty Notifications Start End JoaquínDeirdre Cristobal MD PCP - General Family Practice 06/04/11 Comment: 01-30-16 Address: [address] [address] Shanice Zarco MD Physician Other Ophthalmology 10/05/13 Address: [facility] [address] [address] Marshal Acosta Other Dental Bonderizer 10/05/13 Address: [address] [place] [address] Posey Other Audiology 10/05/13 Address: [place], [place] Chuy Falcon MD Physician Other Cardiology 07/16/14 Comment: [facility], sees in [place]. Address: [address] [facility] [address] Will Dubois MD Physician Other Dermatology 09/21/14 Comment: [facility] [place] Address: [facility] [address] [facility] [phone] Yehuda Quintero MD Physician Other Pain Management 11/02/14 Comment: [facility] [place] Address: [facility] 9550 [facility] 100 [facility] [address] Agustín Ross MD Physician Other Orthopedics 11/02/14 Comment: [facility] Address: [facility] [address] [place] [address] [facility] [phone] Reviewed Health Review documentation. Education given based on Screenings Personalized health advice provided for health education to promote and improve well-being related to nutrition, mood, activity, and safety. Education provided during this visit: fall prevention, nutrition, exercise, stress management and individualized Annual Wellness Visit packet Referrals/Testing ordered based on Screenings Living Will information given Personalized Prevention Plan given to patient. Plan for preventative services Health Maintenance Due Topic Date Due ??? DIABETES MICROALBUMIN Q1 YEAR 03/06/2015 ??? DIABETIC EYE EXAM 12/04/2015 documented in this encounter Miscellaneous Notes Clinical Note - Serenity Miranda LPN - 02/15/2016 9:12 AM CDT This chart was prepped for visit by Serenity Miranda LPN on 02/15/2016. documented in this encounter Plan of Treatment Not on filedocumented as of this encounter Goals Goal Patient Goal Associated Recent Patient-Stated? 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 Note: Formatting of this [...] as of this encounter Visit Diagnoses Diagnosis Routine general medical examination at a health care facility - Primary documented in this encounter Care Teams Plan Coordinator Relationship Specialty Start Date End Date JoaquínDanyaDeirdre Cristobal PCP - General Family Medicine 06/04/11 01/03/17 MD Nomi [address] [phone] Shanice Zarco MD Physician Other Ophthalmology 10/05/13 [address] [place] [address] Chuy Falcon MD Physician Other Cardiology 07/16/14 523 [place], [place] [phone] Will Dubois MD Physician Other Dermatology 09/21/14 [facility] [address] [place] [phone] Yehuda Quintero MD Physician Other Pain Management 11/02/14 [facility] 9550 [facility] 100 [place] [address] Agustín Ross MD Physician Other Orthopedic Surgery 11/02/14 [facility] [address] [place] [address] Marshal Acosta Other Dental Bonderizer 10/05/13 [address] [place], [place] [phone] Dr Posey Other Audiology 10/05/13 [place], [place] documented as of this encounter
--- OUTSIDE RECORDS SUMMARY | 2022-06-07 20:53 | XMS_ITS | Encounter Summary ---
:1935 Author Organization [employer] Address [address] [address] Phone Care Team Providers Name Role Phone Deirdre Bedolla MD Primary Care Provider [phone] Shanice Zarco MD Unavailable Chuy Falcon MD Unavailable Will Dubois MD Unavailable Yehuda Quintero MD Unavailable Agustín Ross MD Unavailable Reason for Visit Reason Onset Date Comments Blood Pressure 11/11/2015 Results, Medication recommendation Encounter Details Date Type Department Care Team Description 11/11/2015 [facility] Pippa Noel, Blood Pressure CLINIC FAMILY MEÑO ALMEIDA RN (Results, Medication [address] recommendat ion) [place] [address] Social History Tobacco Use Types [...] Telephone Encounter - Pippa Noel RN - 11/11/2015 9:02 AM CDT PCP received BP results from treatment nurse visit on 11/10/15, per PCP BP looks good. ??Continue withmedications as he is taking them. ??RN thanked patient for coming in to get that checked. He will check periodically at home and call if results elevated. documented in this encounter Plan of Treatment Not on filedocumented as of this encounter Goals Goal Patient Goal Associated Recent Patient-Stated? 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 Note: Formatting of this [...] on filedocumented in this encounter Care Teams Terrazzo Supervisor Relationship Specialty Start Date End Date Deirdre Bedolla PCP - General Family Medicine 06/04/11 01/03/17 MD Nomi [address] [phone] Shanice Zarco MD Physician Other Ophthalmology 10/05/[address] [place] [address] Chuy Falcon MD Physician Other Cardiology 07/16/14 [address] [place], [place] [phone] Will Dubois MD Physician Other Dermatology 09/21/14 [facility] [address] [place] [address] Yehuda Quintero MD Physician Other Pain Management 11/02/14 [facility] 9550 [facility] 100 [place], [place] [address] Agustín Ross MD Physician Other Orthopedic Surgery 11/02/14 [facility] [address] [place] [address] Marshal Acosta Other Dental Manager Of Enterprise 10/05/[address] [place] [phone] Posey Other Audiology 10/05/13 [place], [place] documented as of this encounter
--- OUTSIDE RECORDS SUMMARY | 2022-06-07 20:54 | XMS_ITS | Encounter Summary ---
:1935 Author Organization [employer] Address [address] [address] Phone Care Team Providers Name Role Phone Deirdre Bedolla MD Primary Care Provider [phone] Shanice Zarco MD Unavailable Chuy Falcon MD Unavailable Will Dubois MD Unavailable Yehuda Quintero MD Unavailable Agustín Ross MD Unavailable Pippa Noel RN Unavailable Unavailable Reason for Visit Reason Comments Refill Request tramadol Encounter Details Date Type Department Care Team Description 10/13/[address] [facility] Riaz Bedolla efill Request FAMILY MEDICINE Deirdre Mosher MD (tramadol) [address] [facility] [address] [address] [place], [place] [address] (Wo rk) Social History Tobacco Use Types [...] Telephone Encounter - Joan Parikh RN - 10/15/2015 6:24 AM CDT Per the [facility] Opioid Refill Policy, this primary care patient needs a pain assessment office visit prior to another refill of this medication. Telephone Encounter - Utility, Refill Wizard - 10/13/2015 4:08 PM CDT traMADol (ULTRAM) 50 MG tablet [Pharmacy Med Name: TraMADol HCl Oral Tablet 50 MG] - VIOLATION: Opioid Contract was not found within the last 5 years of the patient record. - PROTOCOL: Analgesics: Opioid Agonists - Tramadol (Controlled Substance) - LAST QUALIFYING VISIT WITH SAMY GREY C: 10/06/2015 - NEXT SCHEDULED VISIT: None - MEDICATION STARTED: 09/22/2014 - LAST REFILLED: 34 DAYS AGO ON 09/09/2015, QTY: 100, Refills: 0, Si pills twice daily as neededfor pain. (changed) - LAST FILL DATE FROM PHARMACY: 09/09/2015 Powered by [employer], Reference: [id number], 10/13/2015 4:08:10 PM CDT, Pool: KLEVER ([id number]) documented in this encounter Plan of Treatment Not on filedocumented as of this encounter Goals Goal Patient Goal Associated Recent Patient-Stated? 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 Note: Formatting of this [...] on filedocumented in this encounter Care Teams Physician President Relationship Specialty Start Date End Date Chioma, PCP - General Family Medicine 06/04/11 01/03/17 Deirdre Mosher MD [address] [phone] Shanice Zarco MD Physician Other Ophthalmology 10/05/13 [address] [place] [address] Chuy Falcon, Physician Other Cardiology 07/16/14 523 [place], [place] [address] Will Dubois MD Physician Other Dermatology 09/21/14 [facility] [address] [place] [address] Yehuda Quintero MD Physician Other Pain Management 11/02/14 [facility] 9550 [facility] 100 [place] [address] Agustín Ross MD Physician Other Orthopedic Surgery 11/02/14 [facility] [address] [place] [address] Pippa Noel RN RN Metal Shaping Machine Operator 02/11/15 11/10/15 Marshal Acosta Other Dental Commercial Tire Service Technician 10/05/[address] [place] [phone] Posey Other Audiology 10/05/13 [place], [place] documented as of this encounter
--- OUTSIDE RECORDS SUMMARY | 2022-06-07 20:54 | XMS_ITS | Encounter Summary ---
:1935 Author Organization [employer] Address [address] [address] Phone Care Team Providers Name Role Phone Deirdre Bedolla MD Primary Care Provider [phone] Shnaice Zarco MD Unavailable Chuy Falcon MD Unavailable Will Dubois MD Unavailable Yehuda Quintero MD Unavailable Agustín Ross MD Unavailable Pippa Noel RN Unavailable Unavailable Reason for Visit Reason Comments Back Pain Diabetes micro Annual Medicare Wellness Visit due Encounter Details Date Type Department Care Team Description 11/02/2015 Office Visit [facility] Chioma, Low back pain without sciatica, unspecified back pain laterality (Primary Dx); CLINIC FAMILY Deirdre Mosher MD Urinary retention MEDICINE 2023 [facility] 2023 [place] [address] [place], [place] [address] [phone] Social History Tobacco Use Types Packs/Day Years Used Date Smoking Tobacco: Never Smokeless Tobacco: Never Alcohol Use Standard Drinks/Week Comments No 0 (1 standard drink = 0.6 oz pure alcoho l) Sex Assigned at Date Recorded Not on file documented as of this encounter Last Filed Vital Signs Vital Sign Reading Time Taken Comments Blood Pressure 86/51 11/02/2015 3:06 PM CDT Pulse 56 11/02/2015 3:06 PM CDT Temperature - - Respiratory Rate 16 11/02/2015 3:06 PM CDT Oxygen Saturation - - Inhaled Oxygen Concentration - - Weight 94.3 kg (208 lb) 11/02/2015 3:06 PM CDT Height 172.7 cm (5' 8) 11/02/2015 3:06 PM CDT Body Mass Index 31.63 11/02/2015 3:06 PM CDT documented in this [...] Patient Instructions Patient InstructionsMaDeirdre Reinoso MD - 11/02/2015 3:42 PM CDT Hold the Vesicare until you see or talk with Dr. Ruiz. I gave you 3 months of Tramadol. Do not take this with percocet and hold it if he is not having pain. If you are still here in 3 months and needmore, I would need to see you. documented in this encounter Ordered Prescriptions Prescription Sig Dispensed Refills Start Date End Date traMADol (ULTRAM) 50 MG 1-2 pills twice 60 Tab 0 tablet daily as needed for pain. traMADol (ULTRAM) 50 MG 1-2 pills twice 60 Tab 0 016 05/04/2016 tablet daily as needed for pain. traMADol (ULTRAM) 50 MG 1-2 pills twice 60 Tab 0 016 03/14/2016 tablet daily as needed for pain. documented in this encounter Progress Notes Deirdre Bedolla MD - 11/03/2015 2:00 PM CDT [facility] Patient Name: SIMON CASTILLO Date of Service: 11/02/2015 : 1935 Age: 80Y Sex: M Site MRN: Patient Loc/Room #: [facility] FP/ Provider: Deirdre Bedolla MD, Family Practice OFFICE NOTE SITE: [facility] SUBJECTIVE: Simon is here today for a couple of things. First of all, he recently had a spinal cord stimulator replaced. That was complicated as it was scheduled 2 weeks ago, they could not intubate him, so he had to see Ear, Nose, and Throat and ended up having a fiber-optic intubation, then the spinal cord stimulator replacement was complicated by the fact that he could not urinate afterwards so different nurses tried to get a catheter in, could not, and he ended up having to have Urology do a dilatation and place a catheter. He has had that in place for 2 days now and was told to follow up andhave it removed. I will note that he is on VESIcare chronically for overactive bladder-type symptoms, most of which I believe is triggered by his history of chronic infected spinal hardware. He does have chronic pain with his chronically infected spinal hardware. That is why he does a spinal cord stimulator. He has been intolerant of several medications. He takes gabapentin. He takes meloxicam and he also uses tramadol 1 to 2 pills twice daily. says he never uses more than 60 a monthand he does need some refills. OBJECTIVE: Height is 68, weight is 208 pounds, blood pressure is 86/51. Generally - pleasant, nontoxic, no acute distress. HEENT - atraumatic, normocephalic. Catheter was removed without difficulty today by the nurses. Urology did assist us with that. ASSESSMENT AND PLAN: 1. Urinary retention - we did remove the catheter today per the direction of Urology. We will stop his VESIcare until he sees them for cystoscopy November 10. If he has any difficulty urinating between now and then especially if he cannot urinate by 7 o'clock tonight, he should go to the ER. 2. Chronic low back pain - he was given 3 prescriptions for tramadol today, that will be given a 3 month supply. He is in the transition of moving [facility] to [place], so if he needs refills he will see me back in 3 months, otherwise can establish with another physician down there. 3. Low blood pressure - he does have quite a low blood pressure today. I would probably recommend that he hold his Norvasc as well for the next week or two, and then can get his blood pressure checked here with our treatment nurse. Deirdre Bedolla MD [facility] cc: /JKM Job ID: [id number] /tlrts Document ID: [id number] documented in this encounter Miscellaneous Notes Clinical Note - Serenity Miranda LPN - 10/26/2015 8:05 AM CDT This chart was prepped for visit by Serenity Miranda LPN on 10/26/2015. documented in this encounter Plan of Treatment Not on filedocumented as of this encounter Goals Goal Patient Goal Associated Recent Patient-Stated? 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 Note: Formatting of this [...] as of this encounter Visit Diagnoses Diagnosis Low back pain without sciatica, unspecif ied back pain laterality - Primary Urinary retention Retention of urine, unspecified documented in this encounter Discontinued Medications Medication Sig Discontinue Reason Start Date End Date traMADol (ULTRAM) 50 MG 2 pills twice daily 09/09/2015 11/02/2015 tablet as needed for pain. documented as of this encounter Care Teams Steward/Stewardess Banquet Relationship Specialty Start Date End Date YESENIA Bedolla - General Family Medicine 06/04/11 01/03/17 Deirdre Mosher MD [address] [id number] Shanice Zarco MD Physician Other Ophthalmology 10/05/[address] [place] [address] Chuy Falcon, Physician Other Cardiology 07/16/[address] [place] [id number] Will Dubois MD Physician Other Dermatology 09/21/14 [facility] [address] [place] [address] Yehuda Quintero MD Physician Other Pain Management 11/02/14 [facility] 9550 [facility] 100 [place] [address] Agustín Ross MD Physician Other Orthopedic Surgery 11/02/14 [facility] [address] [place] [address] Pippa Noel, RN RN Banquet Server On Call 02/11/15 11/10/15 Marshal Acosta Other Dental Hospitality Coordinator 10/05/13 [address] [place], [place] [phone] Dr Posey Other Audiology 10/05/13 [place], [place] documented as of this encounter
--- OUTSIDE RECORDS SUMMARY | 2022-06-07 20:54 | XMS_ITS | Encounter Summary ---
:1935 Author Organization [employer] Address [address] [address] Phone Care Team Providers Name Role Phone Deirdre Bedolla MD Primary Care Provider [phone] Shanice Zarco MD Unavailable Chuy Falcon MD Unavailable Will Dubois MD Unavailable Yehuda Quintero MD Unavailable Agustín Ross MD Unavailable Pippa Noel RN Unavailable Unavailable Reason for Visit Therapy (Routine) - Closed Specialty Diagnoses / Procedures Referred By Contact Refer red To Contact Occupational Therapy Diagnoses PER INJ 10/20/15 SPLINT Emory Duffy MD Becker, Kimberly J, Procedures [id number] 2013 [facility] OTR/L [place] [phone] [facility] [place]URDICK 5 [phone] Phone: Fax: Referral ID Status Reason Start Date Expiration Date Visits Requ ested Visits Authorized [id number] Closed 10/21/2015 10/21/2015 1 1 Encounter Details Date Type Department Care Team Description 10/21/2015 Office Visit [facility] Amie Eduardo wrist pain (Primary Dx); Center Occupational J, OTR/L Wrist swelling, right Therapy - Outpt [address] [facility] 2015 [facility] [place] [phone] [place] [phone] Social History Tobacco Use Types Packs/Day Years [...] encounter Progress Notes Amie Eduardo, OTR/L - 10/21/2015 3:51 PM CDT OCCUPATIONAL THERAPY SPLINT VISIT: SUBJECTIVE: Patient complains of wrist pain after fall. Patient saw their physician today and was diagnosed witha distal radius fracture. Patient was referred to Occupational Therapy for custom splint only at this time. Patient will follow up with Orthopedics as recommended. Occupation: Retired. Worked in [employer]. present with patient on this date. Patient and report they are planning to move down to the [place]. Independent in activities of daily living and Instrumental activities of daily living tasks. Pain: 11/10 on a scale from 0-10 with 10 being severe as per patient report. Activities that cause pain: Any movement of the wrist. OBJECTIVE: Patient was seen for fabrication and fitting of custom made orthroplast splint for right zipper wrist splint. All edges were flared. Velcro fasteners placed to stabilize splint in position, to allow patient to open the zipper and continue to wear if fluctuation of edema. No reported concerns with fit of splint. Provided patient with education regarding the care and use of splint. Splint was dispensedalong with written instruction. Instructed on don and doff of splint, and /patient reported understanding. Provided with additional stockinette sleeves to use as needed. All questions were answered. No reported concerns per patient. ASSESSMENT: 80 year old male with Healing Fx of right hand. Occupational Therapy provided on this date for application of splint only. Short Term Goals Patient to be able to apply splint independently - 1 day Protect joint during use - 1 day PLAN: Anticipate patient to be discharged from formal Occupational Therapy. Patient instructed to call if any questions or if modifications needed to splint. Total Treatment Time: 28 minutes. 1 zipper wrist splint fabricated for patient on this date. Amie Eduardo MA OTR/L, CLT 11/23/2015 Occupational Therapy discharged. No further notification of any continued Occupational Therapy needs. Amie Eduardo MA OTR/L, CLT documented in this encounter Plan of Treatment Not on filedocumented as of this encounter Goals Goal Patient Goal Associated Recent Patient-Stated? 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 Note: Formatting of this [...] as of this encounter Visit Diagnoses Diagnosis Right wrist pain - Primary Pain in joint, forearm Wrist swelling, right documented in this encounter Orders Supplies Count Last Ordered Date First Ordered Date FOREARM BASED SPLINT - OT 1 10/21/2015 documented in this encounter Care Teams City Controller Relationship Specialty Start Date End Date YESENIA Bedolla - General Family Medicine 06/04/11 01/03/17 Deirdre Mosher MD [address] [id number] Shanice Zarco MD Physician Other Ophthalmology 10/05/[address] [place] [address] Chuy Falcon, Physician Other Cardiology 07/16/14 523 [place], [place] [phone] Will Dubois MD Physician Other Dermatology 09/21/14 [facility] [address] [place] [address] Yehuda Quintero MD Physician Other Pain Management 11/02/14 [facility] 9550 [facility] 100 [place] [address] Agustín Ross MD Physician Other Orthopedic Surgery 11/02/14 [facility] [address] [place] [address] Pippa Noel, RN RN Shotgun Shell Assembly Machine Adjuster 02/11/15 11/10/15 Marshal Acosta Other Dental Grinder Needle Tip 10/05/[address] [place] [address] [address] Posey Other Audiology 10/05/13 [place], [place] documented as of this encounter
--- OUTSIDE RECORDS SUMMARY | 2022-06-07 20:54 | XMS_ITS | Encounter Summary ---
:1935 Author Organization [employer] Address [address] [address] Phone Care Team Providers Name Role Phone Deirdre Bedolla MD Primary Care Provider [phone] Shanice Zarco MD Unavailable Chuy Falcon MD Unavailable Will Dubois MD Unavailable Yehuda Quintero MD Unavailable Agustín Ross MD Unavailable Pippa Noel RN Unavailable Unavailable Reason for Visit Reason Onset Date Comments Care Coordination Program 11/04/201511/[address]-Visit Post-visit call 11/04/2015 Encounter Details Date Type Department Care Team Description 11/04/2015 Telephone [facility] Pippa Noel, Care Coordination [facility] RN Program (11/01 [facility] Post-Visit) ; [place] [address] Social History Tobacco Use Types Packs/Day [...] Telephone Encounter - Pippa Noel RN - 11/04/2015 9:55 AM CDT CCP Post visit Reviewed notes from office visit with Dr. Cristobal on 11/01. Changes were not made to Care Plan. Call placed to pt to discuss and review: 1. Urinary retention - we did remove the catheter today per the direction of Urology. We will stop his VESIcare until he sees them for cystoscopy November 10. If he has any difficulty urinating between now and then especially if he cannot urinate by 7 o'clock tonight, he should go to the ER. ?? 2. Chronic low back pain - he was given 3 prescriptions for tramadol today, that will be given a 3 month supply. He is in the transition of moving [facility] to [place], so if he needs refills he will see me back in 3 months, otherwise can establish with another physician down there. ?? 3. Low blood pressure - he does have quite a low blood pressure today. I would probably recommend that he hold his Norvasc as well for the next week or two, and then can get his blood pressure checked here with our treatment nurse.?? Pt did verbalize understanding of plan. States he was able to easily pass urine that same day, was going quite frequently actually, typically once an hour, but he related that to drinking a lot of fluids. Has been holding Norvasc as directed as well as Vesicare. Planned follow up:1-2 wk BP fu, RN did assist in scheduled. He will be seen 11/09 as they will be leaving for [place] the day following. documented in this encounter Plan of Treatment Not on filedocumented as of this encounter Goals Goal Patient Goal Associated Recent Patient-Stated? 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 Note: Formatting of [...] on filedocumented in this encounter Care Teams Hospice Office Coordinator Relationship Specialty Start Date End Date Chioma PCP - General Family Medicine 06/04/11 01/03/17 Deirdre Mosher MD [address] [phone] Shanice Zarco MD Physician Other Ophthalmology 10/05/13 [address] [place] [address] Chuy Falcon, Physician Other Cardiology 07/16/14 523 [place], [place] [address] Will Dubois MD Physician Other Dermatology 09/21/14 [facility] [address] [place] [phone] Yehuda Quintero MD Physician Other Pain Management 11/02/14 [facility] 9550 [facility] 100 [place] [address] Agustín Ross MD Physician Other Orthopedic Surgery 11/02/14 [facility] [address] [place] [address] Pippa Noel, RN RN Bar Catcher 02/11/15 11/10/15 Marshal Acosta Other Dental Wine Maker 10/05/[address] [place], [place] [phone] Dr Posey Other Audiology 10/05/13 [place], [place] documented as of this encounter
--- OUTSIDE RECORDS SUMMARY | 2022-06-07 20:54 | XMS_ITS | Encounter Summary ---
:1935 Author Organization [email or web address] Address [address] [address] Phone Care Team Providers Name Role Phone Deirdre Bedolla MD Primary Care Provider [phone] Shanice Zarco MD Unavailable Chuy Falcon MD Unavailable Will Dubois MD Unavailable Yehuda Quintero MD Unavailable Agustín Ross MD Unavailable Pippa Noel RN Unavailable Unavailable Reason for Visit Reason Onset Date Comments Care Coordination Program 08/15/2015 Outreach, form s, pain Encounter Details Date Type Department Care Team Description 08/15/2015 [facility] Pippa Noel, Care Coordination [facility] RN Program (Outreach, [address] forms, pain ) [place] [address] Social History Tobacco Use Types [...] Telephone Encounter - Pippa Noel RN - 08/15/2015 12:05 PM CST Outreach to patient. States he has not yet received forms RN sent to re-enroll through [employer]. He states he hasn't checked the mail in a while and will do so. States he had been to [facility] for a R knee injection, will return for an additional 2. He stated PCP/self should be seeing paperwork from [employer] regarding this. He states he is having an off day, in a lot of pain. Refused appt.Will call back or be seen prn. 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 Note: Formatting of this [...] on filedocumented in this encounter Care Teams Canoe Builder Relationship Specialty Start Date End Date Chioma PCP - General Family Medicine 06/04/11 01/03/17 Deirdre Mosher MD [address] [id number] Shanice Zarco MD Physician Other Ophthalmology 10/05/[address] [place] [address] Chuy Falcon, Physician Other Cardiology 07/16/14 [address] [place], [place] [address] Will Dubois MD Physician Other Dermatology 09/21/14 [facility] [address] [place] [address] Yehuda Quintero MD Physician Other Pain Management 11/02/14 [facility] 9550 [facility] 100 [place], [place] [address] Agustín Ross MD Physician Other Orthopedic Surgery 11/02/[address] [facility] [address] [facility] 201 [place] [address] Pippa Noel, RN RN Global Consumer Sector Vice President 02/11/15 11/10/15 Marshal Acosta Other Dental Ordering Machine Operator 10/05/[address] [place] [address] [address] Posey Other Audiology 10/05/13 [place], [place] documented as of this encounter
--- OUTSIDE RECORDS SUMMARY | 2022-06-07 20:54 | XMS_ITS | Encounter Summary ---
:1935 Author Organization [email or web address] Address [address] [address] Phone Care Team Providers Name Role Phone Deirdre Bedolla MD Primary Care Provider [phone] Shanice Zarco MD Unavailable Chuy Falcon MD Unavailable Will Dubois MD Unavailable Yehuda Quintero MD Unavailable Agustín Ross MD Unavailable Pippa Noel RN Unavailable Unavailable Reason for Visit Reason Comments Care Coordination Program CarePlan Update Care Plan Encounter Details Date Type Department Care Team Description 06/23/2015 Care [facility] Pippa Noel, Care Coordination [facility] RN Program (CarePlan 2023 [facility] Update); [place] [address] Social History Tobacco Use Types [...] as of this encounter Progress Notes Pippa Bai, RN - 06/23/2015 10:39 AM CST Spoke with patient. Updated care plan. S PRODUCTION MACHINE OPERATOR documented in this encounter Plan of Treatment Not on filedocumented as of this encounter Goals Goal Patient Goal Associated Recent Patient-Stated? Author Type Problems Progress I want to work Lifestyle Epidural No Wistrom-T he towards getting abscess sing, Lorena a my back pain at E, ASSOCIATE PROFESSOR OF AUTOMATION, a lower and NEWSPAPER STUFFER more tolerable level. Note: Formatting of this [...] on filedocumented in this encounter Care Teams Statistics Teacher Relationship Specialty Start Date End Date Chioma PCP - General Family Medicine 06/04/11 01/03/17 Deirdre Mosher MD [address] [phone] Shanice Zarco MD Physician Other Ophthalmology 10/05/[address] [place] [address] Chuy Falcon, Physician Other Cardiology 07/16/14 523 [place], [place] [address] Will Dubois MD Physician Other Dermatology 09/21/14 [facility] [address] [place] [address] Yehuda Quintero MD Physician Other Pain Management 11/02/14 [facility] [address] [address] Agustín Ross MD Physician Other Orthopedic Surgery 11/02/14 [facility] [address] [place] [address] [place] [address] Pippa Noel, RN RN Machine Tailer 02/11/15 11/10/15 Marshal Acosta Other Dental Cosmetology Educator 10/05/[address] [place] [address] [address] Posey Other Audiology 10/05/13 [place], [place] documented as of this encounter
--- OUTSIDE RECORDS SUMMARY | 2022-06-07 20:54 | XMS_ITS | Encounter Summary ---
:1935 Author Organization [employer] Address [address] [address] Phone Care Team Providers Name Role Phone Deirdre Bedolla MD Primary Care Provider [phone] Shanice Zarco MD Unavailable Chuy Falcon MD Unavailable Will Dubois MD Unavailable Yehuda Quintero MD Unavailable Agustín Ross MD Unavailable Pippa Noel RN Unavailable Unavailable Reason for Visit Reason Onset Date Comments Other 11/02/2015 Christine catheter remov al Encounter Details Date Type Department Care Team Description 11/02/2015 Telephone [facility] Deirdre Kumar, [facility] er (Christine catheter Clinic Urology RN removal) 2023 [place] [address] Social History Tobacco Use Types [...] this encounter Miscellaneous Notes Telephone Encounter - Deirdre Kumar RN - 11/02/2015 2:38 PM CDT Discussed with patient , see previous encounter, that Dr. Ruiz feels patient should have catheter removed with PCP, follow up with Urology as needed in the future. Patient has an appt with PCP today. Per Dr. Ruiz, following PCP appt, patient should have fill andpull of Christine catheter and follow up with Urology. Offered PCP nurses education/assistance with fill and pull. They will call if assistance requested. Telephone Encounter - Deirdre Kumar RN - 11/02/2015 2:13 PM CDT ----- Message from Gisela Camarillo sent at 11/02/2015 1:28 PM CDT ----- Contact: Patient's spouse Ro Date: 11/02/2015 Time: 1:28 PM May we leave a message: unknown Patient's Date of : 1935 Person Calling: Patient's spouse Phone Number: Home phone [phone] (home) Reason for call: Requesting a call back regarding the issue that was being discussed during previoustelephone encounter. Please call to discuss. Pharmacy: Allergies: No Known Allergies Thank you, Gisela Camarillo Call Center Ext. [phone] documented in this encounter Plan of Treatment Not on filedocumented as of this encounter Goals Goal Patient Goal Associated Recent Patient-Stated? 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 Note: Formatting of this [...] filedocumented in this encounter Care Teams Senior Production Planner Relationship Specialty Start Date End Date Chioma PCP - General Family Medicine 06/04/11 01/03/17 Deirdre Mosher MD [address] [id number] Shanice Zarco MD Physician Other Ophthalmology 10/05/[address] [place] [address] Chuy Falcon, Physician Other Cardiology 07/16/14 [address] [place], [place] [address] Will Dubois MD Physician Other Dermatology 09/21/14 [facility] [address], [place] [address] Yehuda Quintero MD Physician Other Pain Management 11/02/14 [facility] 9550 [facility] 100 [place] [address] Agustín Ross MD Physician Other Orthopedic Surgery 11/02/14 [facility] [address] [place] [address] [place] [phone] Pippa Noel RN RN Ultimate Hoops Referee 02/11/15 11/10/15 Marshal Acosta Other Dental Commercial Ocean Clammer 10/05/13 [address] [place], [place] [address] Dr Posey Other Audiology 10/05/13 [place], [place] documented as of this encounter
--- OUTSIDE RECORDS SUMMARY | 2022-06-07 20:54 | XMS_ITS | Encounter Summary ---
:1935 Author Organization [employer] Address [address] [address] Phone Care Team Providers Name Role Phone Deirdre Bedolla MD Primary Care Provider [phone] Shanice Zarco MD Unavailable Chuy Falcon MD Unavailable Will Dubois MD Unavailable Yehuda Quintero MD Unavailable Agustín Ross MD Unavailable Pippa Noel RN Unavailable Unavailable Reason for Visit Reason Onset Date Comments Care Coordination Program 06/23/201506/22 Susu Smith ost-Visit Post-visit call 06/23/2015 Encounter Details Date Type Department Care Team Description 06/23/2015 Telephone [facility] Pippa Noel, Care Coordination [facility] RN Program (06/22 Stadum 2023 [facility] Post-Visit) ; [place] [address] Social History Tobacco Use Types Packs/Day [...] encounter Miscellaneous Notes Telephone Encounter - Pippa Bai RN - 06/23/2015 10:15 AM CST CCP Post visit Reviewed notes from office visit with Dr. Cristobal on 06/22. Changes were made to Care Plan. Call placed to pt to discuss and review: 1. 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 Takes tramadol 50 mg1 to 2 at night. In the past, that has made him kind of change his mental status, but now he has been on it so long my hope is we could increase it to twice daily without trouble. Therefore, will increase that to 1 to 2 twice daily as needed. He will see me again in a month. ?? 2. Anxiety. Try increasing his Prozac to 40 as he is still having symptoms. In addition, hopefully, that will make it easier for to get his medications correct. Spoke with patients , states she wasn't able to come to the appt, reviewed plan. She is comfortable with med changes and will monitor patient and call with any concerning s/s. Did state that patient has had some trouble with his hip, had a fall but patient has not been complaining of pain Planned follow up: 1 mo with PCP OUT OPERATOR documented in this encounter Plan of Treatment Not on filedocumented as of this encounter Goals Goal Patient Goal Associated Recent Patient-Stated? 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 Note: Formatting of [...] on filedocumented in this encounter Care Teams Math Coach Relationship Specialty Start Date End Date Chioma, PCP - General Family Medicine 06/04/11 01/03/17 Deirdre Mosher MD [address] [address] Shanice Zarco MD Physician Other Ophthalmology 10/05/[address] [place] [phone] Chuy Falcon, Physician Other Cardiology 07/16/14 523 [place], [place] [phone] Will Dubois MD Physician Other Dermatology 09/21/14 [facility] [address] [place] [address] Yehuda Quintero MD Physician Other Pain Management 11/02/14 [facility] 9550 [facility] 100 [place], [place] [phone] Agustín Ross MD Physician Other Orthopedic Surgery 11/02/14 [facility] [address] [facility] 201 [place] [address] Pippa Noel, RN RN Trenching Machine Operator 02/11/15 11/10/15 Marshal Acosta Other Dental Supervisor [employer] 10/05/13 [address] [place], [place] [address] Dr Posey Other Audiology 10/05/13 [place], [place] documented as of this encounter
--- OUTSIDE RECORDS SUMMARY | 2022-06-07 20:54 | XMS_ITS | Encounter Summary ---
:1935 Author Organization [employer] Address [address] [address] Phone Care Team Providers Name Role Phone Deirdre Bedolla MD Primary Care Provider [phone] Shanice Zarco MD Unavailable Chuy Falcon MD Unavailable Will Dubois MD Unavailable Yehuda Quintero MD Unavailable Agustín Ross MD Unavailable Pippa Noel RN Unavailable Unavailable Reason for Visit Reason Onset Date Comments Care Coordination Program 08/09/[address] through [employer] Encounter Details Date Type Department Care Team Description 08/09/2015 [facility] Pippa Noel, Care Coordination [facility] RN Program (Celebrex 2023 [facility]) [place] [address] Social History Tobacco Use Types [...] Telephone Encounter - Pippa Noel RN - 08/09/2015 3:06 PM CST Spoke with [employer] rep, states patient's enrollment ended on 07/07/15, new Enrollment form must be completed, one portion for patient, one for PCP. Informed patient's , Mary Ann who is requesting forms be mailed to her and they will fax completed packet. She had no further questions or concerns at this time. MACY CLINICAL COORDINATOR Telephone Encounter - Pippa Noel RN - 08/09/2015 9:59 AM CST Patient called stating he has not received a Rx through [employer] and requesting new script be sent through their Outreach Assistance Program. PCP, have you seen any paperwork from [employer] regarding he is due for refills? FYI: Pt upset with author, stating he does not feel his getting the services he would like, states he would like almost daily calls to check in to see how he and his are doing, he stated he is not going to put in a formal complaint but is mad [they] are paying for care coordination service andnot receiving help. Stated author should have been aware what previous pulmonary care nurse had done inorder to assist them, RN apologized for inconveniences and informed that unfortunately I did not have the opportunity to meet or discuss with previous RN what type of care she provided to particular patient so was not aware. RN reassured patient that author has been following protocol and reaching outto he and his before and after visits and at least every 3 months per guidelines, assured service is free. It does appear RN has outreached to both patient and his per CCP guidelines, informed patient that if he and his do need extra phone contacts I would be happy to help in any way possible. It does not appear that patient or his have reached out to RN for assistance. Patient did not calm down at the end of call, he remained upset and stated that he had better see changes. MACY CLINICAL COORDINATOR documented in this encounter Plan of Treatment Not on filedocumented as of this encounter Goals Goal Patient Goal Associated Recent Patient-Stated? 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 Note: Formatting of this [...] on filedocumented in this encounter Care Teams Clinical Radiologist Relationship Specialty Start Date End Date Chioma PCP - General Family Medicine 06/04/11 01/03/17 Deirdre Mosher MD [address] [phone] Shanice Zarco MD Physician Other Ophthalmology 10/05/[address] [place] [address] Chuy Falcon, Physician Other Cardiology 07/16/14 523 [place], [place] [phone] Will Dubois MD Physician Other Dermatology 09/21/14 [facility] [address] [place] [address] Yehuda Quintero MD Physician Other Pain Management 11/02/14 [facility] 9550 [facility] 100 [place] [address] Agustín Ross MD Physician Other Orthopedic Surgery 11/02/14 [facility] [address] [facility] 201 [place] [phone] Pippa Noel RN RN Soa Engineer 02/11/15 11/10/15 Marshal Acosta Other Dental Ribbon Weaver 10/05/[address] [place] [address] [address] Posey Other Audiology 10/05/13 [place], [place] documented as of this encounter
--- OUTSIDE RECORDS SUMMARY | 2022-06-07 20:54 | XMS_ITS | Encounter Summary ---
:1935 Author Organization [employer] Address [address] [address] Phone Care Team Providers Name Role Phone Deirdre Bedolla MD Primary Care Provider [phone] Shanice Zarco MD Unavailable Chuy Falcon MD Unavailable Will Dubois MD Unavailable Yehuda Quintero MD Unavailable Agustín Ross MD Unavailable Pippa Noel RN Unavailable Unavailable Reason for Visit Reason Onset Date Comments Care Coordination Program 10/12/201510/05 Pablo Smith ost-Visit Post-visit call 10/12/2015 Encounter Details Date Type Department Care Team Description 10/12/2015 Telephone [facility] Pippa Noel, Care Coordination [facility] RN Program (10/05 Pablo 2023 [facility] Post-Visit) ; [place] [address] Social History Tobacco Use Types Packs/Day [...] encounter Miscellaneous Notes Telephone Encounter - Pippa Noel, RN - 10/12/2015 9:38 AM CDT CCP Post visit Reviewed notes from office visit with mary Shah PA-C on 10/05 for pre-op. Changes were not made to Care Plan. Call placed to pt to discuss and review: How is he doing post surgery. Pt did not verbalize understanding of plan. Planned follow up: Left message to return call. documented in this encounter Plan of Treatment Not on filedocumented as of this encounter Goals Goal Patient Goal Associated Recent Patient-Stated? 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 Note: Formatting of this [...] on filedocumented in this encounter Care Teams Patient Care Director Relationship Specialty Start Date End Date Chioma PCP - General Family Medicine 06/04/11 01/03/17 Deirdre Mosher MD [address] [address] Shanice Zarco MD Physician Other Ophthalmology 10/05/[address] [place] [address] Chuy Falcon, Physician Other Cardiology 07/16/14 523 [place], [place] [address] Will Dubois MD Physician Other Dermatology 09/21/14 [facility] [address] [place] [address] [place] [address] Yehuda Quintero MD Physician Other Pain Management 11/02/14 [facility] 9550 [facility] 100 [place], [place] [address] Agustín Ross MD Physician Other Orthopedic Surgery 11/02/14 [facility] [address] [facility] 201 [place] [address] Pippa Noel, RN RN Talcer 02/11/15 11/10/15 Marshal Acosta Other Dental Forest Resource Specialist 10/05/[address] [place] [address] [address] [address] Posey Other Audiology 10/05/13 [place], [place] documented as of this encounter
--- OUTSIDE RECORDS SUMMARY | 2022-06-07 20:54 | XMS_ITS | Encounter Summary ---
:1935 Author Organization [employer] Address [address] [address] Phone Care Team Providers Name Role Phone Deirdre Bedolla MD Primary Care Provider [phone] Shanice Zarco MD Unavailable Chuy Falcon MD Unavailable Will Dubois MD Unavailable Yehuda Quintero MD Unavailable Agustín Ross MD Unavailable Pippa Noel RN Unavailable Unavailable Reason for Visit Reason Onset Date Comments Other 11/02/2015 Encounter Details Date Type Department Care Team Description 11/02/2015 Telephone [facility] Deloris Ro LPN Other Urology [facility] UROLOG 2023 [facility] [address] [address] [place], [place] [address] Social History Tobacco Use Types Packs/Day Years [...] this encounter Miscellaneous Notes Telephone Encounter - Deloris Ro LPN - 11/02/2015 10:49 AM CDT Patient's was informed he does not see post-op patients from other facilities to do catheter removal unless he has done the referral to the facility. Safety Professional informed the patient's that this was per Dr. Ruiz. Patient's was informed her would need to see the urologist at [place].Safety Professional informed the patient's if he needs a urologist he would need to re-establish care with our facility after the catheter is removed. Telephone Encounter - Deloris Ro LPN - 11/02/2015 10:49 AM CDT ----- Message from Jessica Farfan sent at 11/02/2015 9:23 AM CDT ----- Sara Date: 11/02/2015 Time: 9:23 AM May we leave a message: unknown Patient's Date of : 1935 Person Calling: Spouse Phone Number: Cell phone Telephone Information: Reason for call: States saw urologist at [place], and requesting to see Dr. Ruiz as has seen him inpast and and notes to give to him, states for a catheter removal, informed Dr. Ruiz is full today,in surgery tomorrow and out on Saturday. Also, attempted to offer Cristina Villalobos. Spouse requested message to nurse as persistent on patient seeing Dr. Ruiz. Allergies: No Known Allergies Thank you, Jessica Farfan Call Center Ext: [phone] documented in this encounter Plan of Treatment Not on filedocumented as of this encounter Goals Goal Patient Goal Associated Recent Patient-Stated? 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 Note: Formatting of this [...] on filedocumented in this encounter Care Teams Railroad Car Letterer Relationship Specialty Start Date End Date Chioma PCP - General Family Medicine 06/04/11 01/03/17 Deirdre Mosher MD [address] [phone] Shanice Zarco MD Physician Other Ophthalmology 10/05/[address] [place] [address] Chuy Falcon, Physician Other Cardiology 07/16/14 523 [place], [place] [address] Will Dubois MD Physician Other Dermatology 09/21/14 [facility] [address] [place] [address] Yehuda Quintero MD Physician Other Pain Management 11/02/14 [facility] 9550 [facility] 100 [place] [address] Agustín Ross MD Physician Other Orthopedic Surgery 11/02/14 [facility] [address] [place] [address] Pippa Noel, RN RN Link Wire Fabric Machine Tender 02/11/15 11/10/15 Marshal Acosta Other Dental Farmworker Dairy 10/05/13 [address] [place], [place] [address] Dr Posey Other Audiology 10/05/13 [place], [place] documented as of this encounter
--- OUTSIDE RECORDS SUMMARY | 2022-06-07 20:54 | XMS_ITS | Encounter Summary ---
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 Note: Formatting of [...] Comme nts XR WRIST RIGHT 3 OR 11/07/2015 1:15 PM Re sults for this MORE VIEWS CDT procedure are i n the results section. documented in this encounter Results XR WRIST RIGHT 3 OR MORE VIEWS (11/07/2015 1:15 PM CDT) Anatomical Region Laterality Modality Wrist Radiographic Imaging Specimen Anatomical Collection Method Collection Time Receive d Time (Source) Location / / Volume Laterality 11/07/2015 1:15 PM 6 1:15 CDT PM CDT Narrative 11/07/2015 1:15 PM CDT This document is currently in Final Status Exam The actual exam was performed at [facility] This exam does not have a report residin g in this EMR. Procedure Note Unlisted, Provider - 05/09/2018Formattin g of this note might be different from the original. This document is currently in Final Stat us Exam The actual exam was performed at [facility] This exam does not have a report residin g in this EMR. Pcp Elsewhere [facility] documented in this encounter Visit Diagnoses Not on filedocumented in this encounter Care Teams Stock Supervisor Relationship Specialty Start Date End Date YESENIA Bedolla - General Family Medicine 06/04/11 01/03/17 Deirdre Mosher MD [address] [phone] Kendall Mckeon MD PCP - General Family Medicine 01/04/17 Shanice Zarco MD Physician Other Ophthalmology 10/05/[address] [place] [phone] Chuy Falcon, Physician Other Cardiology 07/16/[address] [place] [phone] Will Dubois MD Physician Other Dermatology 09/21/14 [facility] [address] [place] [phone] Yehuda Quintero MD Physician Other Pain Management 11/02/14 [facility] 9550 [facility] 100 [place], [place] [phone] Agustín Ross MD Physician Other Orthopedic Surgery 11/02/14 [facility] [address] [address] Pippa Noel, RN RN Telescope Operator 02/11/15 11/10/15 Marshal Acosta Other Dental Building Components Designer 10/05/[address] [place] [phone] Posey Other Audiology 10/05/13 [place], [place] documented as of this encounter
--- OUTSIDE RECORDS SUMMARY | 2022-06-07 20:54 | XMS_ITS | Encounter Summary ---
:1935 Author Organization [employer] Address [address] [address] Phone Care Team Providers Name Role Phone Deirdre Bedolla MD Primary Care Provider [phone] Shanice Zarco MD Unavailable Chuy Falcon MD Unavailable Will Dubois MD Unavailable Yehuda Quintero MD Unavailable Agustín Ross MD Unavailable Pippa Noel RN Unavailable Unavailable Reason for Visit Reason Onset Date Comments Care Coordination Program 10/05/2015 Outreach [facility] Phone Outreach 10/05/2015 Encounter Details Date Type Department Care Team Description 10/05/2015 Telephone [facility] Pippa Noel, Care Coordination [facility] Program (Outreach); [facility] 2023 [place] [address] Social History Tobacco Use Types [...] this encounter Miscellaneous Notes Telephone Encounter - Spandl, Pippa M, RN - 10/05/2015 10:45 AM CDT Called patient's Mary Ann, for Care coordination outreach. She stated pt is doing well, althoughhis stimulator battery . He went to [facility] yesterday and was advised that they may replace the whole device as new technology is now out. They will see PCP for a preop, willschedule once surgery date is determined. Otherwise, patient is doing quite well. They plan on picking up Celebrex Rx today. Will call with any questions or concerns. documented in this encounter Plan of Treatment Not on filedocumented as of this encounter Goals Goal Patient Goal Associated Recent Patient-Stated? 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 Note: Formatting [...] on filedocumented in this encounter Care Teams Microfilm Mounter Relationship Specialty Start Date End Date Chioma PCP - General Family Medicine 06/04/11 01/03/17 Deirdre Mosher MD [address] [phone] Shanice Zarco MD Physician Other Ophthalmology 10/05/[address] [place] [phone] Chuy Falcon, Physician Other Cardiology 07/16/14 [address] [place], [place] [phone] Will Dubois MD Physician Other Dermatology 09/21/14 [facility] [address] [place] [address] Yehuda Quintero MD Physician Other Pain Management 11/02/14 [facility] 9550 [facility] 100 [place] [address] Agustín Ross MD Physician Other Orthopedic Surgery 11/02/14 [facility] [address] [facility] [address] [place] [address] Pippa Noel, RN RN Academic Affairs Assistant 02/11/15 11/10/15 Marshal Acosta Other Dental Cruise Counselor 10/05/[address] [place] [id number] Posey Other Audiology 10/05/13 [place], [place] documented as of this encounter
--- OUTSIDE RECORDS SUMMARY | 2022-06-07 20:54 | XMS_ITS | Encounter Summary ---
:1935 Author Organization [employer] Address [address] [address] Phone Care Team Providers Name Role Phone Deirdre Bedolla MD Primary Care Provider [phone] Shanice Zarco MD Unavailable Chuy Falcon MD Unavailable Will Dubois MD Unavailable Yehuda Quintero MD Unavailable Agustín Ross MD Unavailable Pippa Noel RN Unavailable Unavailable Reason for Visit Reason Comments Hip Pain bilateral Encounter Details Date Type Department Care Team Description 06/22/2015 Office Visit Herb Hadley (Primary Dx); [facility] Deirdre Mosher MD Epidural abscess MEDICINE 2023 [place] [address] [place] [id number] [phone] Social History Tobacco Use Types Packs/Day Years Used Date Smoking Tobacco: Never Smokeless Tobacco: Never Alcohol Use Standard Drinks/Week Comments No 0 (1 standard drink = 0.6 oz pure alcoho l) Sex Assigned at Date Recorded Not on file documented as of this encounter Last Filed Vital Signs Vital Sign Reading Time Taken Comments Blood Pressure 134/80 06/22/2015 10:19 AM MORTAR MAKER Pulse 77 06/22/2015 10:19 AM MORTAR MAKER Temperature 36.9 ??C (98.4 ??F) 06/22/2015 10:19 AM MORTAR MAKER Respiratory Rate 16 06/22/2015 10:19 AM MORTAR MAKER Oxygen Saturation 97% 06/22/2015 10:19 AM MORTAR MAKER Inhaled Oxygen Concentration - - Weight 93 kg (205 lb) 06/22/2015 10:19 AM MORTAR MAKER Height 172.7 cm (5' 8) 06/22/2015 10:19 AM MORTAR MAKER Body Mass Index 31.17 06/22/2015 10:19 AM MORTAR MAKER documented in this encounter Functional Status Functional Status Response Date of Assessment Patient's Vision Adequate to Safely Complete Daily No 04/10/2015 Activities Patient's Memory Adequate to Safely Complete Daily No 11/17/2014 Activities Cognitive Status Response Date of Assessment Patient's Judgment Adequate to Safely Complete Daily No 04/10/2015 Activities documented as of this encounter Patient Instructions Patient InstructionsMaDeirdre Reinoso MD - 06/22/2015 10:55 AM MORTAR MAKER I want you to start using the Tramadol during the day. You seem to be tolerating it at night, so hopefully it won't make you goofy now that you are used to it. Start 1-2 pills twice daily and see me again in 1 month to let me know how it is going. For the anxiety, [facility] can't seem to get your Prozac dose correct, so we will just increase it to one 40 mg pill to make that easier for you. I don't think it would hurt to treat the anxiety more anyway. See me again in mid-July. AR MAKER documented in this encounter Ordered Prescriptions Prescription Sig Dispensed Refills Start Date End Date FLUoxetine (PROZAC) 40 MG Take 1 Cap by mouth 30 Cap 1 1 08/23/2014 09/05/2015 capsule one time a day. traMADol (ULTRAM) 50 MG 1-2 pills twice 100 Tab 0 015 09/09/2015 tablet daily as needed for pain. TAKE ONE TABLET BY MOUTH NIGHTLY AT BEDTIME NEEDED documented in this encounter Progress Notes Deirdre Bedolla MD - 06/23/2015 9:00 AM CST [facility] Patient Name: SIMON CASTILLO Date of Service: 06/22/2015 : 1935 Age: 79Y Sex: M Site MRN: Patient Loc/Room #: [facility] / Provider: Deirdre Bedolla MD, Family Practice OFFICE NOTE SITE: [facility] Bill is here today with concerns of ongoing pain in his legs. 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 On the left, the pain starts in the lower back, radiates around and goes down to just below the knee. On the right, it starts in the mid-thigh and goesdown to the knee. Keeps him up at night. He also has anxiety. [employer] is having trouble getting his Prozac right. Currently on 30 mg. He stillis having anxiety symptoms, no energy. SOCIAL HISTORY: They will be moving down to [place]. They have purchased a home there, but still have not been able to sell their home up here. REVIEW OF SYSTEMS: Moods have been okay. Appetite is good. OBJECTIVE: Height is 68, weight 205, blood pressure 134/80, pulse 77, temperature 98.4. O2 sat is 97%. Generally pleasant, nontoxic, in no acute distress. Examination of his leg shows tenderness to palpation in the right leg, not as much reproducible on the left. It is worse just proximal to the knee. ASSESSMENT AND PLAN 1. Chronic leg pain secondary to epidural [...] will see me again in a month. 2. Anxiety. Try increasing his Prozac to 40 as he is still having symptoms. In addition, hopefully, that will make it easier for to get his medications correct. Deirdre Bedolla MD [facility] cc: /JNEREYDA Job ID: [id number] /[id number] Document ID: [id number] AR MAKER documented in this encounter Plan of Treatment Not on filedocumented as of this encounter Goals Goal Patient Goal Associated Recent Patient-Stated? 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 FLUoxetine (PROZAC) 20 Take 1 Cap by mouth Adjustment of dose 03/0706/22/2015 MG capsule one time a day. traMADol (ULTRAM) 50 MG Take 2 Tabs by mouth 5 06/22/2015 tablet at bedtime. TAKE ONE TABLET BY MOUTH NIGHTLY AT BEDTIME NEEDED documented as of this encounter Care Teams Kettle Operator Head Relationship Specialty Start Date End Date Chioma, PCP - General Family Medicine 06/04/11 01/03/17 Deirdre Mosher MD [address] [phone] Shanice Zarco MD Physician Other Ophthalmology 10/05/[address] [place] [phone] Chuy Falcon, Physician Other Cardiology 07/16/14 3 [place], [place] [phone] Will Dubois MD Physician Other Dermatology 09/21/14 [facility] [address] [place] [phone] Yehuda Quintero MD Physician Other Pain Management 11/02/14 [facility] 9550 [facility] 100 [place] [address] Agustín Ross MD Physician Other Orthopedic Surgery 11/02/14 [facility] [address] [facility] 201 [place] [address] Pippa Noel, RN RN Dental Laboratory Manager 02/11/15 11/10/15 Marshal Acosta Other Dental Retail Product Demo Specialist 10/05/[address] [place] [address] [address] Posey Other Audiology 10/05/13 [place], [place] documented as of this encounter
--- OUTSIDE RECORDS SUMMARY | 2022-06-07 20:54 | XMS_ITS | Encounter Summary ---
:1935 Author Organization [employer] Address [address] [address] Phone Care Team Providers Name Role Phone Deirdre Bedolla MD Primary Care Provider [phone] Shanice Zarco MD Unavailable Chuy Falcon MD Unavailable Will Dubois MD Unavailable Yehuda Quintero MD Unavailable Agustín Ross MD Unavailable Pippa Noel RN Unavailable Unavailable Reason for Visit Reason Onset Date Comments Refill Request 09/05/2015 Encounter Details Date Type Department Care Team Description 09/05/2015 Refill [facility] Jerry Haro reba Ramos, REINA Refill Request MEDICINE 2023 [place], [place] [address] Social History Tobacco Use Types Packs/Day Years [...] 40 MG Take 1 Cap by mouth 90 Cap 1 0 09/05/2015 03/08/2016 capsule one time a day. documented in this encounter Plan of Treatment Not on filedocumented as of this encounter Goals Goal Patient Goal Associated Recent Patient-Stated? 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 Note: Formatting of this [...] 40 MG Take 1 Cap by mouth 06/22/20 15 09/05/2015 capsule one time a day. documented as of this encounter Care Teams Tool And Die Designer Relationship Specialty Start Date End Date Chioma PCP - General Family Medicine 06/04/11 01/03/17 Deirdre Mosher MD [address] [phone] Shanice Zarco MD Physician Other Ophthalmology 10/05/[address] [place] [phone] Chuy Falcon, Physician Other Cardiology 07/16/14 [address] [place], [place] [phone] Will Dubois MD Physician Other Dermatology 09/21/14 [facility] [place] [phone] Yehuda Quintero MD Physician Other Pain Management 11/02/14 [facility] [address] [place] [address] Agustín Ross MD Physician Other Orthopedic Surgery 11/02/14 [facility] [address] [address] Pippa Noel, RN RN Multi Sensor Operator 02/11/15 11/10/15 Marshal Acosta Other Dental Longwall Machine Operator Helper 10/05/[address] [place] [phone] Posey Other Audiology 10/05/13 [place], [place] documented as of this encounter
--- OUTSIDE RECORDS SUMMARY | 2022-06-07 20:54 | XMS_ITS | Encounter Summary ---
:1935 Author Organization [employer] Address [address] [address] Phone Care Team Providers Name Role Phone Deirdre Bedolla MD Primary Care Provider [phone] Shanice Zarco MD Unavailable Chuy Falcon MD Unavailable Will Dubois MD Unavailable Yehuda Quintero MD Unavailable Agustín Ross MD Unavailable Pippa Noel RN Unavailable Unavailable Reason for Visit Reason Onset Date Comments Results 08/24/2015 Encounter Details Date Type Department Care Team Description 08/24/2015 Telephone [facility] Jerry Hurley LPN Results MEDICINE 2023 [place], [place] [phone] Social History Tobacco Use Types Packs/Day Years [...] Telephone Encounter - Farhana Hurley LPN - 08/24/2015 2:20 PM CST ----- Message from Deirdre Bedolla MD sent at 08/24/2015 1:13 PM SENIOR CREDIT OFFICER ----- Labs all look good! I think he is going to be fine. OR CREDIT OFFICER documented in this encounter Plan of Treatment Not on filedocumented as of this encounter Goals Goal Patient Goal Associated Recent Patient-Stated? 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 Note: Formatting of this [...] filedocumented in this encounter Care Teams Patient Scheduler Relationship Specialty Start Date End Date Chioma PCP - General Family Medicine 06/04/11 01/03/17 Deirdre Mosher MD [address] [phone] Shanice Zarco MD Physician Other Ophthalmology 10/05/[address] [place] [phone] Chuy Falcon, Physician Other Cardiology 07/16/14 [address] [place], [place] [phone] Will Dubois MD Physician Other Dermatology 09/21/14 [facility] [address] [place] [phone] Yehuda Quintero MD Physician Other Pain Management 11/02/14 [facility] [address] [place] [address] 100 [place], [place] [address] Agustín Ross MD Physician Other Orthopedic Surgery 11/02/14 [facility] [address] [place] 201 [place] [address] Pippa Noel RN RN Testing Analyst 02/11/15 11/10/15 Marshal Acosta Other Dental Adult Basic Studies Teacher 10/05/[address] [place] [phone] Posey Other Audiology 10/05/13 [place], [place] documented as of this encounter
--- OUTSIDE RECORDS SUMMARY | 2022-06-07 20:54 | XMS_ITS | Encounter Summary ---
:1935 Author Organization [facility] Address [address] [address] Phone Care Team Providers Name Role Phone Deirdre Bedolla MD Primary Care Provider [phone] Shanice Zarco MD Unavailable Chuy Falcon MD Unavailable Will Dubois MD Unavailable Yehuda Quintero MD Unavailable Agustín Ross MD Unavailable Pippa Noel RN Unavailable Unavailable Reason for Visit Reason Comments Back Pain 02/14; lumbar region; more on L side radiating down to hip region Encounter Details Date Type Department Care Team Description 08/24/2015 Office Visit [facility] Chioma, Midline low back pain without sciatica (Primary Dx); CLINIC FAMILY Deirdre Mosher MD Type 2 diabetes mellitus without complic ation ([facility]) MEDICINE 2023 [place] [address] [place], [place] [id number] Social History Tobacco Use Types Packs/Day Years Used Date Smoking Tobacco: Never Smokeless Tobacco: Never Alcohol Use Standard Drinks/Week Comments No 0 (1 standard drink = 0.6 oz pure alcoho l) Sex Assigned at Date Recorded Not on file documented as of this encounter Last Filed Vital Signs Vital Sign Reading Time Taken Comments Blood Pressure 105/70 08/24/2015 11:38 AM PUBLIC HEALTH STAFF NURSE Pulse 71 08/24/2015 11:38 AM PUBLIC HEALTH STAFF NURSE Temperature - - Respiratory Rate - - Oxygen Saturation - - Inhaled Oxygen Concentration - - Weight 92.5 kg (204 lb) 08/24/2015 11:38 AM PUBLIC HEALTH STAFF NURSE Height 168.9 cm (5' 6.5) 08/24/2015 11:38 AM PUBLIC HEALTH STAFF NURSE Body Mass Index 32.43 08/24/2015 11:38 AM PUBLIC HEALTH STAFF NURSE documented in this encounter Functional Status Functional Status Response Date of Assessment Patient's Vision Adequate to Safely Complete Daily No 04/10/2015 Activities Patient's Memory Adequate to Safely Complete Daily No 11/17/2014 Activities Cognitive Status Response Date of Assessment Patient's Judgment Adequate to Safely Complete Daily No 04/10/2015 Activities documented as of this encounter Patient Instructions Patient InstructionsMaDeirdre Reinoso MD - 08/24/2015 11:55 AM PUBLIC HEALTH STAFF NURSE We will check some labs today and if those are OK, I think you are OK. Watch for stiff neck, fevers,or behavior changes. IC HEALTH STAFF NURSE documented in this encounter Progress Notes Deirdre Bedolla MD - 08/24/2015 2:56 PM CST [facility] Patient Name: AAMIR ESCOBAR Date of Service: 08/24/2015 : 1935 Age: 79Y Sex: M Site MRN: Patient Loc/Room #: [facility] / Provider: Deirdre Bedolla MD, Family Practice OFFICE NOTE SITE: [facility] SUBJECTIVE: Joe is here today for concerns of back pain. He has a history of infected spinal hardware of the back. He had severe diskitis, epidural abscess with that, and had a life-threatening reaction. Therefore, he understandably is concerned that his back pain has recurred. He always suffers withpain, but it is usually in his left side, more localizes in the hip. This pain he has been having for the last 10 to 14 days is different. It is in the mid-back, and it is sometimes superimposed with some sharp pains. It is somewhat constant. He has not had any fevers, neck pains, nuchal rigidity, andhe is acting normal. That is all very different than when he had his episode of epidural abscess where he had fevers, was somewhat delirious, and could not move his neck, so that is reassuring. PAST MEDICAL HISTORY: 1. Coronary artery disease. MT in 1998 with RCA stenting, then repeat MT June 2012, which was restenosis. He has bare-metal stents. He coded in the ambulance on the way to [place] when he had hisabscess, diskitis, and osteomyelitis of the back. 2. Type 2 diabetes. 3. 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 ID has taken him off his antibiotics. 4. Suffers with chronic pain. Tramadol is the only medication he has tolerated. Cymbalta was not helpful. He does take gabapentin. He has been intolerant of all narcotics. He has a spinal cord stimulator. He has tried amitriptyline, nortriptyline, has done Celebrex, several courses of PT, injections, and has seen pain clinics. 5. Reflux. 6. Hyperlipidemia. 7. Hypertension. 8. History of cervical neck fracture. 9. Benign prosthetic hypertrophy. 10. Erectile dysfunction. 11. Hypokalemia. 12. Chronic hearing loss. SOCIAL HISTORY: Nonsmoker. Still planning to move to [place], but has not sold his home here yet. REVIEW OF SYSTEMS: He has actually lost a little bit of weight. They are excited about that, and I did congratulate on that. He has had no fevers that he knows of, has not had any weakness or numbness other than what is typical for him. EXAM: Height is 66.5, weight 204, blood pressure 105/70, pulse is 71. Generally pleasant, nontoxic,no acute distress. HEENT - atraumatic, normocephalic. Conjunctivae are clear. Neck is supple. He hasno nuchal rigidity, good fluid range of motion. He has some mild midline lumbosacral tenderness of the spine. He has negative straight leg raise bilaterally except for just reproducing pain into his tightness into his hamstrings. He has no clonus today. ASSESSMENT AND PLAN: 1. Back pain. I think this is probably just exacerbation, kind of an [id number] back pain picture. However, I certainly understand his concern. We checked a temp on him today. He is afebrile. Will check hemogram, CMP, SED rate, CRP, and if those are all normal I think that is quite reassuring. They will watch for fevers, changes in mentation and any neck stiffness, in which case I would think he would need prompt evaluation. Otherwise, will continue watchful waiting. Use tramadol as needed. 2. Type 2 diabetes. He will be due for an A1c soon, so will go ahead and check that today as well. Deirdre Bedolla MD [facility] cc: /GARRETT Job ID: [id number] /tierney Document ID: [id number] IC HEALTH STAFF NURSE documented in this encounter Plan of Treatment Not on filedocumented as of this encounter Goals Goal Patient Goal Associated Recent Patient-Stated? Author Type Problems Progress I want to work Lifestyle Epidural No Wistrom-T he towards getting abscess sing, Lorena a my back pain at E, COLLECTIONS AND ARCHIVES DIRECTOR, a lower and DOCUMENTATION DESIGNER more tolerable level. Note: Formatting of this [...] Name Priority Date/Time Associated Diagnosis Comme nts DIFFERENTIAL 08/24/2015 12:14 Midline low back Results for this PM PUBLIC HEALTH STAFF NURSE pain without procedure are i n sciatica the results section. C REACTIVE PROTEIN Routine 08/24/2015 12:14 Midline low back R esults for this PM PUBLIC HEALTH STAFF NURSE pain without procedure are i n sciatica the results section. COMPREHENSIVE Routine 08/24/2015 12:14 Midline low back Result s for this METABOLIC PANEL PM PUBLIC HEALTH STAFF NURSE pain without procedure ar e in sciatica the results section. HEMOGRAM/DIFF Routine 08/24/2015 12:14 Midline low back Result s for this PM PUBLIC HEALTH STAFF NURSE pain without procedure are i n sciatica the results section. SED RATE Routine 08/24/2015 12:14 Midline low back Results for this PM PUBLIC HEALTH STAFF NURSE pain without procedure are i n sciatica the results section. HEMOGLOBIN A1C Routine 08/24/2015 12:14 Type 2 diabetes Result s for this PM PUBLIC HEALTH STAFF NURSE mellitus without procedure a re in complication (HCC) the resul ts section. documented in this encounter Results (ABNORMAL) A1C(HGB AIC) (08/24/2015 12:14 PM PUBLIC HEALTH STAFF NURSE) athologist Signature A1C (HGB AIC) 6.5 (H) 4.0 - 6.0 08/24/2015 [facility] % 12:38 PM [facility] Est Average 140 mg/dL 08/24/2015 [facility] Glucose 12:38 PM [facility] Comment: According to ADA guidelines, the estimat ed average glucose (eAG) will be calculated for all HgbA1c results. Specimen Anatomical Collection Method Collection Time Receive d Time (Source) Location / / Volume Laterality 08/24/2015 12:14 08/24/2015 PM PUBLIC HEALTH STAFF NURSE 12:21 PM PUBLIC HEALTH STAFF NURSE Deirdre Bedolla MD EC CHEMISTRY ORDERABLES A BN Performing Organization Address City/State/ZIP Code Phon e Number [facility] [address] [facility] [address] LABORATORY DIFFERENTIAL (08/24/2015 12:14 PM PUBLIC HEALTH STAFF NURSE) athologist Signature NEUTROPHIL % 71.3 % 08/24/2015 [facility] 12:25 PM [facility]3] LABORATORY LYMPHOCYTE % 16.6 % 08/24/2015 [facility] 12:25 PM [facility]3] LABORATORY MONOCYTE % 8.5 % 08/24/2015 [facility] 12:25 PM [facility]3] LABORATORY EOSINOPHIL % 3.1 % 08/24/2015 [facility] 12:25 PM [facility]3] LABORATORY BASOPHIL % 0.5 % 08/24/2015 [facility] 12:25 PM [facility]3] LABORATORY NEUTROPHIL ABS 5.7 1.7 - 8.5 08/24/2015 [facility] 109/L 12:25 PM [facility]3] LABORATORY LYMPHOCYTE ABS 1.3 0.9 - 3.6 08/24/2015 [facility] [place] 109/L 12:25 PM [facility]3] LABORATORY MONOCYTE ABS 0.7 0.3 - 1.0 08/24/2015 [facility] 109/L 12:25 PM [facility]3] LABORATORY EOSINOPHIL ABS 0.2 0.0 - 0.6 08/24/2015 [facility] [place] 109/L 12:25 PM [facility]3] LABORATORY BASOPHIL ABS 0.0 0.0 - 0.3 08/24/2015 [facility] 109/L 12:25 PM [facility]3] LABORATORY Specimen Anatomical Collection Method Collection Time Receive d Time (Source) Location / / Volume Laterality 08/24/2015 12:14 08/24/2015 PM PUBLIC HEALTH STAFF NURSE 12:21 PM PUBLIC HEALTH STAFF NURSE Deirdre Bedolla MD EC LABORATORY Performing Organization Address City/State/ZIP Code Phon e Number [facility] [address] [place] [address] [place] [address] LABORATORY C REACTIVE PROTEIN (08/24/2015 12:14 PM PUBLIC HEALTH STAFF NURSE) P athologist Signature CRP 0.25 0.00 - 0.80 08/24/2015 [facility] mg/dL 12:49 PM [facility]3] LABORATORY Specimen Anatomical Collection Method Collection Time Receive d Time (Source) Location / / Volume Laterality 08/24/2015 12:14 08/24/2015 PM PUBLIC HEALTH STAFF NURSE 12:21 PM PUBLIC HEALTH STAFF NURSE Deirdre Bedolla MD EC CHEMISTRY ORDERABLES Performing Organization Address City/State/ZIP Code Phon e Number [facility] [address] [place] [address] [place] [address] LABORATORY SED RATE (08/24/2015 12:14 PM PUBLIC HEALTH STAFF NURSE) P athologist Signature SED RATE 9 0 - 20 08/24/2015 [facility] mm/hr 1:10 PM [facility]3] LABORATORY Comment: ESR reference range has changed as of 05/12/2015. Specimen Anatomical Collection Method Collection Time Receive d Time (Source) Location / / Volume Laterality 08/24/2015 12:14 08/24/2015 PM PUBLIC HEALTH STAFF NURSE 12:21 PM PUBLIC HEALTH STAFF NURSE Deirdre Bedolla MD EC HEMATOLOGY ORDERABLES Performing Organization Address City/State/ZIP Code Phon e Number [facility] [address] [place] [address] LABORATORY COMPR MET PANEL (08/24/2015 12:14 PM PUBLIC HEALTH STAFF NURSE) P athologist Signature SODIUM 140 134 - 143 08/24/2015 [facility] mEq/L 12:49 PM [facility]3] LABORATORY POTASSIUM 4.6 3.4 - 5.1 08/24/2015 [facility] mEq/L 12:49 PM [facility]3] LABORATORY Chloride 105 99 - 110 08/24/2015 [facility] mEq/L 12:49 PM [facility]3] LABORATORY CO2 25 19 - 29 08/24/2015 [facility] mEq/L 12:49 PM [facility]3] LABORATORY GLUCOSE 95 70 - 100 08/24/2015 [facility] mg/dL 12:49 PM [facility]3] LABORATORY BUN 19 5 - 24 08/24/2015 [facility] mg/dL 12:49 PM [facility]3] LABORATORY Creatinine 1.01 0.70 - 1.20 08/24/2015 [facility] mg/dL 12:49 PM [facility]3] LABORATORY GFR CALC >60 08/24/2015 [facility] 12:49 PM [facility]3] LABORATORY Comment: GFR Normal: >60 mL/min/1.73 m2 Calcium 9.2 8.4 - 10.5 mg/dL 08/24/2015 12:49 PM [facility] LABORATORY Protein, Total 6.6 6.0 - 8.0 g/dL 08/24/2015 12:49 PM [facility] LABORATORY Albumin 3.7 3.5 - 5.0 gm/dL 08/24/2015 12:49 PM [facility] ALK PHOSPHATASE 94 40 - 150 IU/L 08/24/2015 12:[address] [facility] ALT(SGPT) 16 6 - 40 IU/L 08/24/2015 12:[address] [facility] AST(SGOT) 17 10 - 40 IU/L 08/24/2015 12:[address] [facility] TOTAL BILIRUBIN 1.1 0.2 - 1.2 mg/dL 08/24/2015 12:[address] [facility] ANION GAP 10 3 - 15 08/24/2015 12:[address] [facility] Specimen Anatomical Collection Method Collection Time Receive d Time (Source) Location / / Volume Laterality 08/24/2015 12:14 08/24/2015 PM PUBLIC HEALTH STAFF NURSE 12:21 PM PUBLIC HEALTH STAFF NURSE Deirdre Bedolla MD EC CHEMISTRY ORDERABLES Performing Organization Address City/State/ZIP Code Phon e Number [facility] [address] [facility] [address] LABORATORY (ABNORMAL) HEMOGRAM/DIFF (08/24/2015 12:14 PM PUBLIC HEALTH STAFF NURSE) P athologist Signature WBC 7.9 3.4 - 10.7 08/24/2015 [facility] 109/L 12:25 PM [facility]3] LABORATORY RBC 5.06 4.20 - 5.90 08/24/2015 [facility] 1012/L 12:25 PM [facility]3] LABORATORY HGB 11.9 (L) 13.0 - 17.0 08/24/2015 [facility] g/dL 12:25 PM [facility]3] LABORATORY HCT 37.8 37.5 - 51.0 08/24/2015 [facility] % 12:25 PM [facility]3] LABORATORY MCV 74.7 (L) 82.0 - 99.0 08/24/2015 [facility] fL 12:25 PM [facility]3] LABORATORY MCH 23.6 (L) 27.0 - 34.0 08/24/2015 [facility] pg 12:25 PM [facility]3] LABORATORY MCHC 31.6 (L) 32.0 - 35.7 08/24/2015 [facility] g/dL 12:25 PM [facility]3] LABORATORY RDW 18.5 (H) 11.0 - 15.0 08/24/2015 [facility] % 12:25 PM [facility]3] LABORATORY PLT 244 150 - 400 08/24/2015 [facility] 109/L 12:25 PM [facility]3] LABORATORY Specimen Anatomical Collection Method Collection Time Receive d Time (Source) Location / / Volume Laterality 08/24/2015 12:14 08/24/2015 PM PUBLIC HEALTH STAFF NURSE 12:21 PM PUBLIC HEALTH STAFF NURSE Deirdre Bedolla MD EC HEMATOLOGY ORDERABLES Performing Organization Address City/State/ZIP Code Phon e Number [facility] [address] [facility] [address] [address] LAB[facility]ATORY documented in this encounter Visit Diagnoses Diagnosis Midline low back pain without sciatica - Primary Type 2 diabetes mellitus without complic ation (HCC) documented in this encounter Care Teams Knitting Teacher Relationship Specialty Start Date End Date Chioma PCP - General Family Medicine 06/04/11 01/03/17 Deirdre Mosher MD [address] [phone] Shanice Zarco MD Physician Other Ophthalmology 10/05/13 [facility] [place] [phone] Chuy Falcon, Physician Other Cardiology 07/16/14 3 [place], [place] [phone] Will Dubois MD Physician Other Dermatology 09/21/14 [facility] [address] [place] [phone] Yehuda Quintero MD Physician Other Pain Management 11/02/14 [facility] 9550 [facility] 100 [place] [address] Agustín Ross MD Physician Other Orthopedic Surgery 11/02/14 [facility] [address] [place] [address] [place] [address] Pippa Noel, RN RN Material Controller 02/11/15 11/10/15 Marshal Acosta Other Dental Pan Pusher 10/05/[address] [place] [address] [id number] [address] Posey Other Audiology 10/05/13 [place], [place] documented as of this encounter
--- OUTSIDE RECORDS SUMMARY | 2022-06-07 20:54 | XMS_ITS | Encounter Summary ---
:1935 Author Organization [facility] Address [address] [address] Phone Care Team Providers Name Role Phone Deirdre Bedolla MD Primary Care Provider [phone] Shanice Zarco MD Unavailable Chuy Falcon MD Unavailable Will Dubois MD Unavailable Yehuda Quintero MD Unavailable Agustín Ross MD Unavailable Pippa Noel RN Unavailable Unavailable Reason for Visit Reason Onset Date Comments Care Coordination Program 11/01/201511/01 [facility] Pr e-Visit Pre-visit call 11/01/2015 Encounter Details Date Type Department Care Team Description 11/01/2015 Telephone [facility] Pippa Noel, Care Coordination [facility] RN Program (11/01 [facility] Pre-Visit); [place] [address] Social History Tobacco Use Types Packs/Day [...] Telephone Encounter - Pippa Noel, RN - 11/01/2015 8:37 AM CDT CCP Previsit Call Pt has appt with Dr. Cristobal on 11/01 at 1445 for low back pain fu. Pt has updated Care Plan - Yes Any visits with a specialists or other physicians since your last visit - Yes 10/05 Pablo Pre-Op Patient cleared for replacement of neuro stimulator at [facility] on October 11, [address] Vega. Any changes in your health or behavior - No answer, left message. Objectives/Goals for the visit. What are the 2-3 questions or issues? Left message to return call. documented in this encounter Plan of Treatment Not on filedocumented as of this encounter Goals Goal Patient Goal Associated Recent Patient-Stated? Author Type Problems Progress I want to work Lifestyle Epidural No Wistrom-T he towards getting abscess sing, Lorena a my back pain at E, OCCASIONAL BABYSITTER, a lower and CYLINDER DIE MACHINE OPERATOR more tolerable level. Note: Formatting [...] on filedocumented in this encounter Care Teams Digital Sales Planner Relationship Specialty Start Date End Date [place] PCP - General Family Medicine 06/04/11 01/03/17 Deirdre Mosher MD [address] [phone] Shanice Zarco MD Physician Other Ophthalmology 10/05/[address] [place] [phone] Chuy Falcon, Physician Other Cardiology 07/16/[address] [place] [address] [phone] Will Dubois MD Physician Other Dermatology 09/21/14 [facility] [address], [place] [address] Yehuda Quintero MD Physician Other Pain Management 11/02/14 [facility] 9550 [facility] 100 [place], [place] [phone] Agustín Ross MD Physician Other Orthopedic Surgery 11/02/14 [facility] [address] [phone] Pippa Noel RN RN Shipping Weigher 02/11/15 11/10/15 Marshal Acosta Other Dental Fruit Express Agent 10/05/[address] [place], [place] [phone] Dr Posey Other Audiology 10/05/13 [place], [place] documented as of this encounter
--- OUTSIDE RECORDS SUMMARY | 2022-06-07 20:54 | XMS_ITS | Encounter Summary ---
:1935 Author Organization [facility] Address [address] [address] Phone Care Team Providers Name Role Phone Deirdre Bedolla MD Primary Care Provider [phone] Shanice Zarco MD Unavailable Chuy Falcon MD Unavailable Will Dubois MD Unavailable Yehuda Quintero MD Unavailable Agustín Ross MD Unavailable Pippa Noel RN Unavailable Unavailable Kendall Mckeon MD Primary Care Provider Encounter Details Date Type Department Care Team Description 10/21/2015 Orders Only EXTERNAL RESULTS Elsewhere, Pcp Social [...] Lorena a my back pain at E, CARTOGRAPHIC AIDE, a lower and TECHNICAL SERVICES MANAGER more tolerable level. Note: Formatting of [...] Comme nts XR WRIST RIGHT 3 OR 10/21/2015 2:12 PM Re sults for this MORE VIEWS CDT procedure are i n the results section. documented in this encounter Results XR WRIST RIGHT 3 OR MORE VIEWS (10/21/2015 2:12 PM CDT) Anatomical Region Laterality Modality Wrist Radiographic Imaging Specimen Anatomical Collection Method Collection Time Receive d Time (Source) Location / / Volume Laterality 10/21/2015 2:12 PM 6 2:12 CDT PM CDT Narrative 10/21/2015 2:12 PM CDT This document is currently in Final Status Exam The actual exam was performed at [facility] This exam does not have a report residin g in this EMR. Procedure Note Unlisted, Provider - 05/09/2018Formattin g of this note might be different from the original. This document is currently in Final Stat us Exam The actual exam was performed at [facility] This exam does not have a report residin g in this EMR. Pcp Elsewhere [facility] DI[facility]NOSTIC [facility]AG[facility] ORDERA BLES documented in this encounter Visit Diagnoses Not on filedocumented in this encounter Care Teams Switch Coupler Relationship Specialty Start Date End Date YESENIA Bedolla - General Family Medicine 06/04/11 01/03/17 Deirdre Mosher MD [address] [phone] Kendall Mckeon MD PCP - General Family Medicine 01/04/17 Shanice Zarco MD Physician Other Ophthalmology 10/05/[address] [place] [phone] Chuy Falcon, Physician Other Cardiology 07/16/[address] [place] [phone] Will Dubois MD Physician Other Dermatology 09/21/14 [facility] [address] [place] [phone] Yehuda Quintero MD Physician Other Pain Management 11/02/14 [facility] 9550 [facility] 100 [place], [place] [phone] Agustín Ross MD Physician Other Orthopedic Surgery 11/02/14 [facility] [address] [phone] Pippa Noel, RN RN Swine Extension Field Specialist 02/11/15 11/10/15 Marshal Acosta Other Dental Staff Assistant 10/05/[address] [place] [phone] Posey Other Audiology 10/05/13 [place], [place] documented as of this encounter
--- OUTSIDE RECORDS SUMMARY | 2022-06-07 20:54 | XMS_ITS | Encounter Summary ---
:1935 Author Organization [employer] Address [address] [address] Phone Care Team Providers Name Role Phone Deirdre Bedolla MD Primary Care Provider [phone] Shanice Zarco MD Unavailable Chuy Falcon MD Unavailable Will Dubois MD Unavailable Yehuda Quintero MD Unavailable Agustín Ross MD Unavailable Pippa Noel RN Unavailable Unavailable Reason for Visit Reason Onset Date Comments Care Coordination Program 08/25/201508/[address]-[facility] Post-visit call 08/25/2015 Encounter Details Date Type Department Care Team Description 08/25/2015 Telephone [facility] Pippa Noel, Care Coordination [facility] RN Program (08/24 [facility] Post-Visit) ; [place] [address] Social History [...] Telephone Encounter - Pippa Noel RN - 08/25/2015 10:17 AM CST CCP Post visit Reviewed notes from office visit with Dr. Cristobal on 08/24. Changes were made to Care Plan. Call placed to pt to discuss and review: 1. Back pain. I think this is probably just exacerbation, kind of an [id number] back pain picture. However, I certainly understand [...] continue watchful waiting. Use tramadol as needed. ?? 2. Type 2 diabetes. He will be due for an A1c soon, so will go ahead and check that today as well. Pt did not verbalize understanding of plan. Left message to return call. Planned follow up: prn LEVELING MACHINE OPERATOR documented in this encounter Plan of Treatment Not on filedocumented as of this encounter Goals Goal Patient Goal Associated Recent Patient-Stated? Author Type Problems Progress I want to work Lifestyle Epidural No Wistrom-T he towards getting abscess sing, Lorena a my back pain at E, LEARNING COORDINATOR, a lower and PILOT PLANT OPERATOR more tolerable level. Note: Formatting of [...] on filedocumented in this encounter Care Teams Bulk Tank Driver Relationship Specialty Start Date End Date Chioma PCP - General Family Medicine 06/04/11 01/03/17 Deirdre Mosher MD [address] [address] Shanice Zarco MD Physician Other Ophthalmology 10/05/[address] [place] [address] Chuy Falcon, Physician Other Cardiology 07/16/[address] [place] [id number] Will Dubois MD Physician Other Dermatology 09/21/14 [facility] [address] [place] [address] Yehuda Quintero MD Physician Other Pain Management 11/02/14 [facility] [address] [facility] [address] [place] [address] Agustín Ross MD Physician Other Orthopedic Surgery 11/02/14 [facility] [address] [address] Pippa Noel, RN RN Missile Technician 02/11/15 11/10/15 Marshal Acosta Other Dental Tennis Director 10/05/13 [address] [place], [place] [address] Dr Posey Other Audiology 10/05/13 [place], [place] documented as of this encounter
--- OUTSIDE RECORDS SUMMARY | 2022-06-07 20:54 | XMS_ITS | Encounter Summary ---
:1935 Author Organization [employer] Address [address] [address] Phone Care Team Providers Name Role Phone Deirdre Bedolla MD Primary Care Provider [phone] Shanice Zarco MD Unavailable Chuy Falcon MD Unavailable Will Dubois MD Unavailable Yehuda Quintero MD Unavailable Agustín Ross MD Unavailable Pippa Noel RN Unavailable Unavailable Reason for Visit Reason Onset Date Comments Catheter Problem 11/02/2015 Encounter Details Date Type Department Care Team Description 11/02/2015 Telephone [facility] Deirdre Kumar, Catheter Problem Urology RN [address]23 [place], [place] [phone] Social History Tobacco Use Types Packs/Day Years [...] Encounter - Deirdre Kumar RN - 11/02/2015 3:30 PM CDT Fill and pull ordered per Dr. Ruiz. Patient reports drinking, only one glass of water per day. Encouraged patient to increase fluid intake. Patient catheter tubing full of dark yellow urine. Patient reports emptying bag this morning, minimal output in catheter bag. Patient experiencing occasional leakage from penis around catheter perwife. Voiding trial procedure explained and patient/ verbalized understanding. The catheter bag was removed from catheter, then approximately 100 ml of sterile water was instilled into the bladder at which water was no longer flowing via gravity. Gently pressure applied via syringe, patient experienced leaking around catheter at penis. Existing catheter removed without difficulty. Patient tolerated theprocedure well, denies any urge to urinate. Patient to complete office visit with PCP, attempt to void. Discussed with Dr. Ruiz, increase fluids and ED if pain, no void in 8 hours, patient scheduled fro cystoscopy with Dr. Ruiz on 11/11/15. Education provided to patient from [facility] Clinical Reference: Urinary Retention. Advised patient to call or follow up if any of the symptoms listed: fever, no urination for 8 hours, blood in urine occurs. Instructed patient/caregiver to call back if symptoms worsen or if new symptoms develop. Receptive to information. Supervising physician today was Dr. Ruiz/Dr. Cristobal. documented in this encounter Plan of Treatment Not on filedocumented as of this encounter Goals Goal Patient Goal Associated Recent Patient-Stated? 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 Note: Formatting of [...] on filedocumented in this encounter Care Teams Sap Business Objects Developer Relationship Specialty Start Date End Date Chioma PCP - General Family Medicine 06/04/11 01/03/17 Deirdre Mosher MD [address] [phone] Shanice Zarco MD Physician Other Ophthalmology 10/05/[address] [place] [phone] Chuy Falcon, Physician Other Cardiology 07/16/14 [address] [place], [place] [address] Will Dubois MD Physician Other Dermatology 09/21/14 [facility] [address] [place] [address] Yehuda Quintero MD Physician Other Pain Management 11/02/14 [facility] 95[address] [facility] 100 [place], [place] [phone] Agustín Ross MD Physician Other Orthopedic Surgery 11/02/14 [facility] [address] [address] Pippa Noel, RN RN Instructional Leader 02/11/15 11/10/15 Marshal Acosta Other Dental Decal Applier 10/05/13 [address] [place], [place] [phone] Dr Posey Other Audiology 10/05/13 [place], [place] documented as of this encounter
--- OUTSIDE RECORDS SUMMARY | 2022-06-07 20:54 | XMS_ITS | Encounter Summary ---
:1935 Author Organization [employer] Address [address] [address] Phone Care Team Providers Name Role Phone Deirdre Bedolla MD Primary Care Provider [phone] Shanice Zarco MD Unavailable Chuy Falcon MD Unavailable Will Dubois MD Unavailable Yehuda Quintero MD Unavailable Agustín Ross MD Unavailable Pippa Noel RN Unavailable Unavailable Reason for Visit Reason Comments Refill Request Encounter Details Date Type Department Care Team Description 08/03/[address] 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 Note: Formatting of this [...] Sig Discontinue Reason Start Date End Date finasteride (PROSCAR) 5 TAKE ONE TABLET BY 04/20/2015 08/03/2015 MG tablet MOUTH ONE TIME DAILY DO NOT CRUSH documented as of this encounter Care Teams Import Dispatcher Relationship Specialty Start Date End Date Chioma PCP - General Family Medicine 06/04/11 01/03/17 Deirdre Mosher MD [address] [address] Shanice Zarco MD Physician Other Ophthalmology 10/05/[address] [place] [address] Chuy Falcon, Physician Other Cardiology 07/16/14 [address] [place], [place] [phone] Will Dubois MD Physician Other Dermatology 09/21/14 [facility] [address] [place] [address] Yehuda Quintero MD Physician Other Pain Management 11/02/14 [facility] 95[address] [facility] 100 [place] [address] Agustín Ross MD Physician Other Orthopedic Surgery 11/02/14 [facility] [address] [place] [address] Pippa Noel, RN RN Cell Operation Supervisor 02/11/15 11/10/15 Marshal Acosta Other Dental Senior Staff Specialized Employment 10/05/[address] [place] [address] [address] [address] Posey Other Audiology 10/05/13 [place], [place] documented as of this encounter
--- OUTSIDE RECORDS SUMMARY | 2022-06-07 20:54 | XMS_ITS | Encounter Summary ---
:1935 Author Organization [employer] Address [address] [address] Phone Care Team Providers Name Role Phone Deirdre Bedolla MD Primary Care Provider [phone] Shanice Zarco MD Unavailable Chuy Falcon MD Unavailable Will Dubois MD Unavailable Yehuda Quintero MD Unavailable Agustín Ross MD Unavailable Pippa Noel RN Unavailable Unavailable Reason for Visit Reason Comments Pre-Op Exam [facility] 4/ replace stimulator Encounter Details Date Type Department Care Team Description 10/06/2015 Office Visit [place] Deloris Sanders Pre-oper ative examination (Primary Dx); [facility] C, PA-C Heart disease; MEDICINE 2023 [facility] Type 2 diabetes mellitus wit hout complication (HCC); 2023 [facility] Essential hypertension; [place] [facility] [place] Chronic radicular low back p [place]EM [place] [id number] Social History Tobacco Use Types Packs/Day Years Used Date Smoking Tobacco: Never Smokeless Tobacco: Never Alcohol Use Standard Drinks/Week Comments No 0 (1 standard drink = 0.6 oz pure alcoho l) Sex Assigned at Date Recorded Not on file documented as of this encounter Last Filed Vital Signs Vital Sign Reading Time Taken Comments Blood Pressure 122/76 10/06/2015 3:04 PM CDT Pulse 85 10/06/2015 3:04 PM CDT Temperature 37.1 ??C (98.8 ??F) 10/06/2015 3:04 PM CDT Respiratory Rate - - Oxygen Saturation 97% 10/06/2015 3:04 PM CDT Inhaled Oxygen Concentration - - Weight 90.7 kg (200 lb) 10/06/2015 3:04 PM CDT Height 172.7 cm (5' 8) 10/06/2015 3:04 PM CDT Body Mass Index 30.41 10/06/2015 3:04 PM CDT documented in this encounter Functional Status Functional Status Response Date of Assessment Patient's Vision Adequate to Safely Complete Daily No 04/10/2015 Activities Patient's Memory Adequate to Safely Complete Daily No 11/17/2014 Activities Cognitive Status Response Date of Assessment Patient's Judgment Adequate to Safely Complete Daily No 04/10/2015 Activities documented as of this encounter Progress Notes Deloris Shah PA-C - 10/06/2015 3:02 PM CDT Pre-Operative H&P Reason for Visit: Simon Castillo is a 80 year old male seen today for a pre-operative evaluation. I am seeing the patient at the request of Dr. Vega. Patient is scheduled for replacement of neuro stimulator at [facility] on October 11, 2015. Pre-Op HPI: Indication for surgery is chronic low back pain with radiculopathy. Patient states he is otherwise doing well, and he reports no new medical concerns today. He has already stopped taking his Plavix as of this morning, and he does not believe his gave him the aspirin this morning. Pre-operative Risk Assessment and ROS: General: History of significant transfusion antibody reaction: No Diabetes Mellitus: Yes-controlled by diet Dyspnea: No Functional Health Status: independent Chronic Pain: Yes-Eight Open wound with/without infection: No >10% loss of body weight past 6 months: No Fever > 101 in past month: No Steroid use for chronic condition: No Exposure to Prednisone > 5 mg/day for > 3 weeks in past 6 months: No Bleeding disorders: No Actively managed cancer: No Pulmonary: No history of pulmonary disease. Cardiac: History of Ischemic Heart Disease: angina within past 30 days: no; CCS class ([place] [employer] classification) 1; PA past 6 months: no; Percutaneous coronary intervention (PCI)/Percutaneous transluminal coronary angioplasty (PTCA): yes-Bare metal stent (BMS): date 1998 and 2011; cardiac surgery: no; dual antiplatelet therapy: yes; last stress test date: unknown; Echo on 08/03/14 showed EF 45-50% History of Hypertension requiring medication Vascular: No history of vascular disease. Hepatobiliary: No history of hepatobiliary disease. Gastrointestinal: No history of significant GI disease. Renal: No history of renal disease. Central Nervous System: No history of FACILITY MECHANIC disease. Additional ROS (undiagnosed new complaints): All other systems reviewed and found to be negative Past Medical History: See pre-operative risk assessment above Past Medical History Diagnosis Date ??? CAD (coronary artery disease) ??? Colon polyp ??? Diverticulosis ??? DM type 2 (diabetes mellitus, type 2) (HCC) ??? Hyperlipidemia ??? Hypertension ??? 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 clopidogrel (PLAVIX) 75 MG tablet TAKE ONE TABLET BY MOUTH ONE TIME DAILY ??? traMADol (ULTRAM) 50 MG tablet 2 pills twice daily as needed for pain. ??? FLUoxetine (PROZAC) 40 MG capsule Take [...] diluted in 2-6 parts of fluid. ??? solifenacin (VESICARE) 10 MG tablet Take 1 Tab by mouth one time a day. ??? atorvaSTATin (LIPITOR) 40 MG tablet Take [...] No current facility-administered medications for this visit. Allergies and Drug Sensitivities: No Known Allergies Immunizations: Immunization History Administered Date(s) Administered ??? Influenza Quad Preservative Free 04/05/2014 ??? Influenza Seasonal Inj A,B High Dose 04/27/2015 ??? Pneumococcal Conjugate, (Prevnar)13-valent 09/30/2014, 12/15/2014 ??? Pneumovax 23 04/24/2013 ? ? Tdap >7 years 12/17/2014 ??? Zoster (Shingles) 04/29/2012 Is the patient up to date for Influenza, Zoster, Pneumococcal, and Tdap vaccines as applicable for age - yes Patient or any member of family has history of MRSA or skin infections: No Family History: Negative for bleeding disorder/clotting disorder or anesthesia problems Social History: Review reveals: , lives at home and ambulates independently Code Status: Full Code/Resuscitation Lift DNR for surgery: Not Applicable Advance Directive: Not on File Physical Examination: (APPEARANCE, SKIN, HEAD, NOSE, THROAT, NECK, LUNG, and HEART are critical for preop assessment) Vitals: 10/06/15 1504 BP: 122/76 Pulse: 85 Temp: 37.1 ??C (98.8 ??F) TempSrc: [facility] Height: 5' 8 (1.727 m) Weight: 200 lb (90.7 kg) SpO2: 97% BMI (Calculated): 30.41 Body mass index is 30.41 kg/(m^2). Room Air APPEARANCE: alert, no apparent distress, cooperative and very pleasant. SKIN: clear with no lesions or rash noted. HEAD: normal. EYES: eyelids normal, conjunctiva clear, EOMs intact, PERRL. EARS: both external canals normal and TM's intact, flat, translucent with normal landmarks. NOSE: septum midline and normal mucosa. MOUTH/THROAT: lips, tongue, oral mucosa and pharynx normal. NECK: supple, no adenopathy, no masses or thyromegaly. LUNG: good respiratory effort without retractions, good air entry and normal breath sounds bilaterally. HEART/PULSES: regular, S1 & S2 normal and no murmur. ABDOMEN: flat, soft without tenderness or mass, bowel sounds normoactive. BACK/SPINE: symmetric with normal posture and no abnormalities noted. EXTREMITIES: extremities normal. NEUROLOGIC: alert, interaction normal, and exam normal with no focal findings. LABS and EKG: Recent Results (from the past 24 hour(s)) EKG AMBULATORY Result Value Ref Range Ventricular Rate 81 BPM Atrial Rate 81 BPM P-R Interval 236 ms QRS Duration 122 ms QT 398 ms QTc 462 ms P [place] 103 degrees R [place] 18 degrees T [place] -10 degrees Narrative Confirming Doc Randy Clayton M.D. 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) Abnormal ECG When compared with ECG of 23-JUN-2012 19:03, Significant changes have occurred BASIC MET PROF Result Value Ref Range SODIUM 142 134 - 143 mEq/L POTASSIUM 4.2 3.4 - 5.1 mEq/L CHLORIDE 108 99 - 110 mEq/L CO2 23 19 - 29 mEq/L BUN 21 5 - 24 mg/dL CREATININE 1.01 0.70 - 1.20 mg/dL GFR CALC >60 CALCIUM 9.3 8.4 - 10.5 mg/dL ANION GAP 11 3 - 15 GLUCOSE 91 70 - 100 mg/dL HEMOGRAM Result Value Ref Range WBC 8.6 3.4 - 10.7 109/L RBC 5.14 4.20 - 5.90 1012/L HGB 12.1 (L) 13.0 - 17.0 g/dL HCT 38.4 37.5 - 51.0 % MCV 74.7 (L) 82.0 - 99.0 fL MCH 23.5 (L) 27.0 - 34.0 pg MCHC 31.5 (L) 32.0 - 35.7 g/dL RDW 17.5 (H) 11.0 - 15.0 % PLT 239 150 - 400 109/L CXR: not indicated U/A: not indicated Assessment/ Plan: Preoperative Exam Hypertension: controlled Diabetes Mellitus: controlled Jimenez Cardiac Risk Index: Class II - Moderate Risk Would patient benefit from Pre-op Beta cassidy? No, already taking Atenolol Does the patient need clear diabetes related orders? no Any reason to refuse blood transfusion? no Further workup for surgery needed? no Patient is optimized for surgery? YES This preoperative note has been sent to the requesting physician for review: yes documented in this encounter Plan of Treatment Not on filedocumented as of this encounter Goals Goal Patient Goal Associated Recent Patient-Stated? 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 Note: Formatting of [...] Date/Time Associated Diagnosis Comme nts BASIC METABOLIC Routine 10/06/2015 4:07 PM Pre-operative Resul ts for this PANEL CDT examination procedure are i n the results section. HEMOGRAM Routine 10/06/2015 4:07 PM Pre-operative Results for this CDT examination procedure are i n the results section. EKG AMBULATORY Routine 10/06/2015 3:43 PM Pre-operative Result s for this CDT examination procedure are in Heart disease the results section. documented in this encounter Results (ABNORMAL) HEMOGRAM (10/06/2015 4:07 PM CDT) P athologist Signature WBC 8.6 3.4 - 10.7 10/06/2015 [facility] 109/L 4:19 PM T [facility] RBC 5.14 4.20 - 5.90 10/06/2015 [facility] 1012/L 4:19 PM [facility] HGB 12.1 (L) 13.0 - 17.0 10/06/2015 [facility] g/dL 4:19 PM [facility] HCT 38.4 37.5 - 51.0 10/06/2015 [facility] ALLREDLesley % 4:19 PM [facility] MCV 74.7 (L) 82.0 - 99.0 10/06/2015 [facility] fL 4:19 PM [facility] MCH 23.5 (L) 27.0 - 34.0 10/06/2015 [facility] pg 4:19 PM [facility] MCHC 31.5 (L) 32.0 - 35.7 10/06/2015 [facility] g/dL 4:19 PM [facility] RDW 17.5 (H) 11.0 - 15.0 10/06/2015 [facility] ALLREDLesley % 4:19 PM [facility] PLT 239 150 - 400 10/06/2015 [facility] 109/L 4:19 PM [facility] Specimen Anatomical Collection Method Collection Time Receive d Time (Source) Location / / Volume Laterality 10/06/2015 4:07 PM 6 4:13 CDT PM CDT Deloris Shah PA-C EC HEMATOLOGY ORDERABLES Performing Organization Address City/State/ZIP Code Phon e Number [facility] [address] [id number] LABORATORY BASIC MET PROF (10/06/2015 4:07 PM CDT) P athologist Signature SODIUM 142 134 - 143 10/06/2015 [facility] mEq/L 4:36 PM [facility] POTASSIUM 4.2 3.4 - 5.1 10/06/2015 [facility] mEq/L 4:36 PM [facility] Chloride 108 99 - 110 10/06/2015 [facility] mEq/L 4:36 PM [facility] CO2 23 19 - 29 10/06/2015 [facility] mEq/L 4:36 PM [facility] BUN 21 5 - 24 10/06/2015 [facility] mg/dL 4:36 PM CDT [facility] Creatinine 1.01 0.70 - 1.20 10/06/2015 [facility] mg/dL 4:36 PM [facility] GFR CALC >60 10/06/2015 [facility] 4:36 PM [facility] Comment: GFR Normal: >60 mL/min/1.73 m2 Calcium 9.3 8.4 - 10.5 mg/dL 10/06/2015 4:[address] [facility] ANION GAP 11 3 - 15 10/06/2015 4:[address] [facility] GLUCOSE 91 70 - 100 mg/dL 10/06/2015 4:[address] [facility] Specimen Anatomical Collection Method Collection Time Receive d Time (Source) Location / / Volume Laterality 10/06/2015 4:07 PM 6 4:13 CDT PM CDT Deloris Shah PA-C EC CHEMISTRY ORDERABLES Performing Organization Address City/State/ZIP Code Phon e Number [facility] [address] [id number] LABORATORY EKG AMBULATORY (10/06/2015 3:43 PM CDT) P athologist Signature Ventricular Rate 81 BPM MUSE Atrial Rate 81 BPM MUSE P-R Interval 236 ms MUSE QRS Duration 122 ms MUSE QT 398 ms MUSE QTc 462 ms MUSE P [place] 103 degrees MUSE R [place] 18 degrees MUSE T [place] -10 degrees MUSE Specimen (Source) Anatomical Collection Method Collection Time Re ceived Time Location / / Volume Laterality 10/06/2015 3:43 PM CDT Narrative MUSE - 10/06/2015 4:15 PM CDT Confirming Doc Randy Clayton M.D. 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 Confirming Doc Randy Clayton M.D. 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) Abnormal ECG When compared with ECG of 23-JUN-2012 19 :03, Significant changes have occurred Deloris Shah PA-C EC NON-INVASIVE CARDIOLOGY Performing Organization Address City/State/ZIP Code Phon e Number MUSE documented in this encounter Visit Diagnoses Diagnosis Pre-operative examination - Primary Preoperative examination, unspecified Heart disease Heart disease, unspecified Type 2 diabetes mellitus without complic ation (HCC) Essential hypertension Unspecified essential hypertension Chronic radicular low back pain Thoracic or lumbosacral neuritis or radi culitis, unspecified documented in this encounter Care Teams Environmental Quality Analyst Relationship Specialty Start Date End Date YESENIA Bedolla - General Family Medicine 06/04/11 01/03/17 Deirdre Mosher MD [address] [phone] Shanice Zarco MD Physician Other Ophthalmology 10/05/[address] [place] [phone] Chuy Falcon, Physician Other Cardiology 07/16/14 [address] [place], [place] [phone] Will Dubois MD Physician Other Dermatology 09/21/14 [facility] [address] [place] [address] Yehuda Quintero MD Physician Other Pain Management 11/02/14 [facility] [address] [facility] 100 [place] [address] Agustín Ross MD Physician Other Orthopedic Surgery 11/02/14 [facility] [address] [place] [address] Pippa Noel, RN RN Gasoline Catalyst Operator 02/11/15 11/10/15 Marshal Acosta Other Dental Wound Care Nurse 10/05/[address] [place] [address] [address] Posey Other Audiology 10/05/13 [place], [place] documented as of this encounter
--- OUTSIDE RECORDS SUMMARY | 2022-06-07 20:54 | XMS_ITS | Encounter Summary ---
:1935 Author Organization [employer] Address [address] [address] Phone Care Team Providers Name Role Phone Deirdre Bedolla MD Primary Care Provider [phone] Shanice Zarco MD Unavailable Chuy Falcno MD Unavailable Will Dubois MD Unavailable Yehuda Quintero MD Unavailable Agustín Ross MD Unavailable Pippa Noel RN Unavailable Unavailable Reason for Visit Reason Onset Date Comments Medication Question 09/09/2015 Requesting Tramadol Refill Encounter Details Date Type Department Care Team Description 09/09/2015 [facility] Pippa Noel, Medic ation Question [facility] MEÑO ALMEIDA RN (Requesting Tramadol 2023 [facility] Refill) [place] [address] Social History Tobacco Use Types [...] (ULTRAM) 50 MG 2 pills twice daily 100 Tab 0 10/201511/02/2015 tablet as needed for pain. documented in this encounter Miscellaneous Notes Telephone Encounter - Pippa Noel RN - 09/09/2015 2:10 PM CST [facility] having fax issues, VO given to pharmacist James. Verbalized understanding. Will fill. Mary Ann informed. Verbalized understanding. Agreeable to plan. KENER Telephone Encounter - Pippa Noel RN - 09/09/2015 1:38 PM CST Per written order per Dr. Susu guevara for tramadol 50mg 2 tabs bid prn for pain. Qty 100 refills 0. RN filled. KENER Telephone Encounter - Pippa Noel RN - 09/09/2015 9:41 AM CST Patient's calling stating when patient was seen 08/24 for back pain he was advised to take tramadol prn, the Rx given on 06/22 was for 1-2 tabs bid prn Qty 100 filled on 06/22. Mary Ann states he has been using 3-4 tabs daily and is currently out of Rx. Requesting a refill as he does get relief from med and back pain is still bothersome. Okay with request? KENER documented in this encounter Plan of Treatment Not on filedocumented as of this encounter Goals Goal Patient Goal Associated Recent Patient-Stated? 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 Note: Formatting of [...] traMADol (ULTRAM) 50 MG 1-2 pills twice 06/22/2015 0 09/09/2015 tablet daily as needed for pain. TAKE ONE TABLET BY MOUTH NIGHTLY AT BEDTIME NEEDED documented as of this encounter Care Teams Multineedle Shirrer Relationship Specialty Start Date End Date Chioma PCP - General Family Medicine 06/04/11 01/03/17 Deirdre Mosher MD [address] [phone] Shanice Zarco MD Physician Other Ophthalmology 10/05/[address] [place] [phone] Chuy Falcon, Physician Other Cardiology 07/16/14 [address] [place], [place] [address] Will Dubois MD Physician Other Dermatology 09/21/14 [facility] [address] [place] [phone] Yehuda Quintero MD Physician Other Pain Management 11/02/14 [facility] [address]50 [facility] 100 [place], [place] [phone] Agustín Ross MD Physician Other Orthopedic Surgery 11/02/14 [facility] [address] [address] Pippa Noel, RN RN Stone Decorator 02/11/15 11/10/15 Marshal Acosta Other Dental Training And Development Officer 10/05/13 [address] [place], [place] [phone] Dr Posey Other Audiology 10/05/13 [place], [place] documented as of this encounter
--- OUTSIDE RECORDS SUMMARY | 2022-06-07 20:54 | XMS_ITS | Encounter Summary ---
:1935 Author Organization [employer] Address [address] [address] Phone Care Team Providers Name Role Phone Deirdre Bedolla MD Primary Care Provider [phone] Shanice Zarco MD Unavailable Chuy Falcon MD Unavailable Will Dubois MD Unavailable Yehuda Quintero MD Unavailable Agustín Ross MD Unavailable Pippa Noel RN Unavailable Unavailable Reason for Visit Reason Comments Refill Request Encounter Details Date Type Department Care Team Description 10/27/2015 Refill [facility] Javy Ruiz MD Refill Request [address] [place] [address] [place] [address] [phone] (Wo rk) Social History Tobacco Use Types [...] Sig Dispensed Refills Start Date End Date VESICARE 10 MG tablet TAKE ONE TABLET BY 30 Tab 0 201504/02/2016 MOUTH ONE TIME DAILY documented in this encounter Miscellaneous Notes Telephone Encounter - Deirdre Kumar RN - 10/27/2015 11:33 AM CDT Patient needs appt for further refills documented in this encounter Plan of Treatment Not on filedocumented as of this encounter Goals Goal Patient Goal Associated Recent Patient-Stated? 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 Note: Formatting of this [...] Sig Discontinue Reason Start Date End Date solifenacin (VESICARE) 10 Take 1 Tab by mouth 04/29/20 14 10/27/2015 MG tablet one time a day. documented as of this encounter Care Teams Silk Screen Layout Drafter Relationship Specialty Start Date End Date Chioma PCP - General Family Medicine 06/04/11 01/03/17 Deirdre Mosher MD [address] [id number] Shanice Zarco MD Physician Other Ophthalmology 10/05/[address] [place] [phone] Chuy Falcon, Physician Other Cardiology 07/16/14 [address] [place], [place] [address] Will Dubois MD Physician Other Dermatology 09/21/14 [facility] [address] [place] [address] Yehuda Quintero MD Physician Other Pain Management 11/02/14 [facility] 9550 [facility] 100 [place] [address] Agustín Ross MD Physician Other Orthopedic Surgery 11/02/14 [facility] [address] [place] [address] Pippa Noel, RN RN Curator Of Collections 02/11/15 11/10/15 Marshal Acosta Other Dental Firer Automatic Stoker 10/05/[address] [place] [address] [address] Posey Other Audiology 10/05/13 [place], [place] documented as of this encounter
--- OUTSIDE RECORDS SUMMARY | 2022-06-07 20:54 | XMS_ITS | Encounter Summary ---
:1935 Author Organization [employer] Address [address] [address] Phone Care Team Providers Name Role Phone Rima Bedolla MD Primary Care Provider [phone] Shanice Zarco MD Unavailable Chuy Falcon MD Unavailable Will Dubois MD Unavailable Yehuda Quintero MD Unavailable Agustín Ross MD Unavailable Pippa Noel RN Unavailable Unavailable Reason for Visit Reason Comments Refill Request Clopidogrel Encounter Details Date Type Department Care Team Description 09/19/2015 Refill [facility] Riaz Bedolla efill Request FAMILY MEDICINE Rima Mosher MD (Clopidogrel ) 2023 [facility] eet [address] [address] [place], [place] [id number] (Wo rk) Social History Tobacco Use Types [...] Sig Dispensed Refills Start Date End Date clopidogrel (PLAVIX) 75 MG TAKE ONE TABLET BY 90 Tab 3 0 09/20/2015 tablet MOUTH ONE TIME DAILY documented in this encounter Miscellaneous Notes Telephone Encounter - Yasmani Ham RN - 09/20/2015 2:55 AM CDT The refill request is Ok to authorize per the [facility] Medication Refill Protocol. Telephone Encounter - [employer], Refill Wizard - 09/19/2015 11:08 AM CDT clopidogrel (PLAVIX) 75 MG tablet [Pharmacy Med Name: Clopidogrel Bisulfate Oral Tablet 75 MG] - REFILL: 12 months - PROTOCOL: Cardiovascular: Platelet Aggregation Inhibitors - RATIONALE: This refill should last until the patient is due for an office visit. - LAST QUALIFYING VISIT WITH RIMA BEDOLLA K: 08/24/2015 - NEXT SCHEDULED VISIT: None - MEDICATION STARTED: 10/10/2012 - LAST REFILLED ON: 08/08/2014, QTY: 90, Refills: 3, Sig: take one tablet by mouth one time daily (unchanged) - LAST FILL DATE FROM PHARMACY: 06/15/2015 Powered by [employer], Reference: [id number], 09/19/2015 11:08:16 AM CDT, Pool: KLEVER ([id number]) documented in this encounter Plan of Treatment Not on filedocumented as of this encounter Goals Goal Patient Goal Associated Recent Patient-Stated? 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 Note: Formatting of this [...] Sig Discontinue Reason Start Date End Date clopidogrel (PLAVIX) 75 TAKE ONE TABLET BY 08/08/2014 09/19/2015 MG tablet MOUTH ONE TIME DAILY documented as of this encounter Care Teams Banner Painter Relationship Specialty Start Date End Date Chioma, PCP - General Family Medicine 06/04/11 01/03/17 Rima Mosher MD [address] [address] Shanice Zarco MD Physician Other Ophthalmology 10/05/13 [address] [place] [address] Chuy Falcon, Physician Other Cardiology 07/16/14 [address] [place], [place] [phone] Will Dubois MD Physician Other Dermatology 09/21/14 [facility] [address] [place] [address] Yehuda Quintero MD Physician Other Pain Management 11/02/14 [facility] 7950 [facility] 100 [place] [address] Agustín Ross MD Physician Other Orthopedic Surgery 11/02/14 [facility] [address] [place] [address] Pippa Noel, RN RN Warehouse Production Worker 02/11/15 11/10/15 Marshal Acosta Other Dental Cinder Pit Worker 10/05/[address] [place] [id number] Posey Other Audiology 10/05/13 [place], [place] documented as of this encounter
--- OUTSIDE RECORDS SUMMARY | 2022-06-07 20:55 | XMS_ITS | Encounter Summary ---
:1935 Author Organization [employer] Address [address] [address] Phone Care Team Providers Name Role Phone Deirdre Bedolla MD Primary Care Provider [phone] Shanice Zarco MD Unavailable Chuy Falcon MD Unavailable Will Dubois MD Unavailable Yehuda Quintero MD Unavailable Agustín Ross MD Unavailable Alysia Claudio RN Unavailable Reason for Visit Reason Onset Date Comments Misc Forms 01/19/2015 Encounter Details Date Type Department Care Team Description 01/19/2015 Telephone [facility] FAMILY Anitra Landaverde RN Mis Forms [facility] 2023 [place], [place] [address] Social History Tobacco Use Types Packs/Day Years Used Date Smoking Tobacco: Never Smokeless Tobacco: Never Alcohol Use Standard Drinks/Week Comments No 0 (1 standard drink = 0.6 oz pure alcoho l) Sex Assigned at Date Recorded Not on file documented as of this encounter Functional Status Functional Status Response Date of Assessment Patient's Vision Adequate to Safely Complete Daily No 11/17/2014 Activities Patient's Memory Adequate to Safely Complete Daily No 11/17/2014 Activities Cognitive Status Response Date of Assessment Patient's Judgment Adequate to Safely Complete Daily No 11/17/2014 Activities documented as of this encounter Miscellaneous Notes Telephone Encounter - Josie Landaverde LPN - 01/19/2015 12:51 PM CDT Requesting counselor list be mailed out Telephone Encounter - Josie Landaverde LPN - 01/19/2015 12:50 PM CDT ----- Message from Shyla Garnica sent at 01/19/2015 12:41 PM CDT ----- Susu Date: 01/19/2015 Time: 12:42 PM May we leave a message: yes Patient's Date of : 1935 Person Calling: pt Phone Number: Home phone [phone] (home) Reason for call: Personal reason - would not disclose. Would like either PCP or Jessica to Pharmacy: -- Allergies: -- Penicillins Thank you, Shyla Patient Care Contact Center [phone] documented in this encounter Plan of Treatment Not on filedocumented as of this encounter Goals Goal Patient Goal Associated Recent Patient-Stated? 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 Note: Formatting of this [...] on filedocumented in this encounter Care Teams Housekeeping Supervisor Relationship Specialty Start Date End Date YESENIA Bedolla - General Family Medicine 06/04/11 01/03/17 Deirdre Mosher MD [address] [address] Shanice Zarco MD Physician Other Ophthalmology 10/05/[address] [place] [phone] Chuy Falcon, Physician Other Cardiology 07/16/14 523 [place], [place] [address] Will Dubois MD Physician Other Dermatology 09/21/14 [facility] [address] [place] [address] Yehuda Quintero MD Physician Other Pain Management 11/02/14 [facility] 9550 [facility] 100 [place], [place] [phone] Agustín Ross MD Physician Other Orthopedic Surgery 11/02/14 [facility] [address] [address] Alysia Claudio, RN RN Aircraft Mechanic Structures 11/30/14 02/10/15 Marshal Acosta Other Dental Dry End Operator 10/05/[address] [place], [place] [address] Dr Posey Other Audiology 10/05/13 [place], [place] documented as of this encounter
--- OUTSIDE RECORDS SUMMARY | 2022-06-07 20:55 | XMS_ITS | Encounter Summary ---
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 Note: Formatting of [...] Priority Date/Time Associated Diagnosis Comme nts XR FINGER OR 05/09/2015 4:17 PM Results f or this FINGERS LEFT 2 OR SOCIAL ORGANIZATION PROFESSOR procedure are in MORE VIEWS the results section. documented in this encounter Results XR FINGER OR FINGERS LEFT 2 OR MORE VIEWS (05/09/2015 4:17 PM SOCIAL ORGANIZATION PROFESSOR) Anatomical Region Laterality Modality Hand Radiographic Imaging Specimen Anatomical Collection Method Collection Time Receive d Time (Source) Location / / Volume Laterality 05/09/2015 4:17 PM 5 4:17 SOCIAL ORGANIZATION PROFESSOR PM SOCIAL ORGANIZATION PROFESSOR Narrative 05/09/2015 4:17 PM SOCIAL ORGANIZATION PROFESSOR This document is currently in Final Status Exam The actual exam was performed at [facility] This exam does not have a report residin g in this EMR. Procedure Note Unlisted, Provider - 05/09/2018Formattin g of this note might be different from the original. This document is currently in Final Stat us Exam The actual exam was performed at [facility] This exam does not have a report residin g in this EMR. Pcp Elsewhere [facility] documented in this encounter Visit Diagnoses Not on filedocumented in this encounter Care Teams Specialty Trimmer Relationship Specialty Start Date End Date YESENIA Bedolla - General Family Medicine 06/04/11 01/03/17 Deirdre Mosher MD [address] [phone] Kendall Mckeon MD PCP - General Family Medicine 01/04/17 Shanice Zarco MD Physician Other Ophthalmology 10/05/[address] [place] [phone] Chuy Falcon, Physician Other Cardiology 07/16/[address] [place] [phone] Will Dubois MD Physician Other Dermatology 09/21/14 [facility] [address] [place] [phone] Yehuda Quintero MD Physician Other Pain Management 11/02/14 [facility] 9550 [facility] 100 [place], [place] [address] Agustín Ross MD Physician Other Orthopedic Surgery 11/02/14 [facility] [address] [phone] Pippa Noel, RN RN Supervisor Engine Assembly 02/11/15 11/10/15 Marshal Acosta Other Dental Supervisor Estimator And Drafter 10/05/[address] [place] [phone] Posey Other Audiology 10/05/13 [place], [place] documented as of this encounter
--- OUTSIDE RECORDS SUMMARY | 2022-06-07 20:55 | XMS_ITS | Encounter Summary ---
:1935 Author Organization [employer] Address [address] [address] Phone Care Team Providers Name Role Phone Deirdre Bedolla MD Primary Care Provider [phone] Shanice Zarco MD Unavailable Chuy Falcon MD Unavailable Will Dubois MD Unavailable Yehuda Quintero MD Unavailable Agustín Ross MD Unavailable Pippa Noel RN Unavailable Unavailable Reason for Visit Reason Onset Date Comments Care Coordination Program 04/11/201504/10 ED Fall Post-visit call 04/11/2015 Encounter Details Date Type Department Care Team Description 04/11/2015 Telephone [facility] Pippa Noel, Care Coordination Clinic Internal RN Program (04/10 ED Fall); Medicine Post-visit call 2023 [place], [place] [address] Social History Tobacco Use Types Packs/Day Years [...] Telephone Encounter - Pippa Bai RN - 04/11/2015 2:01 PM CDT CCP Post visit Reviewed notes from ED 04/10. Presented with a fall. Patient states he was standing near the top of a step. He couldn't see in thedark. He miss stepped and fell down several steps. He struck his left hand on the drywall and may have hit his head on the drywall. There was no LOC he denies new vision hearing or speech problems. He denies headache or neck pain. He complains of left thumb pain and dislocation. He denies any other extremity pain. He has no chest pain or breathing problems. He denies new back pain. He has no abdominal pain. . He dislocated the left thumb after a fall down some stairs. There were no witnesses, but there was suspicion he may have hit his head. He is on antiplatelet drugs or CAT scan was ordered along with a head injury protocol. Laboratory testing is noted above his CAT scan was unremarkable. His dislocated thumb was reduced after digital block. He had good capillary refill circulation and function after the reduction. He was placed in thumb spica splint Fall Head injury with normal neuro exam. Dislocated thumb reduced Tenderness left shoulder possible bruise and contusion Plan: Wear splint Elevate extremity when able Cool compresses, over cloth, 4-6 times a day for 30 minutes per time. It helps with swelling or pain Head injury information [place] 1 every 6 hrs if pain no alcohol or driving while on this medication, due to risk of sleepiness and sedation. Call and see orthopedics about your thumb 5-7 days Return if worsening pain, confusion, lethargy, vomiting Changes were not made to Care Plan. Pt's did verbalize understanding of plan. States they are aware to schedule ortho appt in the next week. Do have fu appt scheduled with PCP on 04/27. No further questions or conerns. He sore today, but keeping up on meds and home treatments. Planned follow up: Ortho in 5-7 days and PCP on 04/27. documented in this encounter Plan of Treatment Not on filedocumented as of this encounter Goals Goal Patient Goal Associated Recent Patient-Stated? Author Type Problems Progress I want to work Lifestyle Epidural No Wistrom-T he towards getting abscess sing, Lorena a my back pain at E, DEVULCANIZER LOADER, a lower and HOT BALLER more tolerable level. Note: Formatting of this [...] on filedocumented in this encounter Care Teams Information Systems Professor Relationship Specialty Start Date End Date Chioma PCP - General Family Medicine 06/04/11 01/03/17 Deirdre Mosher MD [address] [phone] Shanice Zarco MD Physician Other Ophthalmology 10/05/[address] [place] [phone] Chuy Falcon, Physician Other Cardiology 07/16/14 [address] [place], [place] [phone] Will Dubois MD Physician Other Dermatology 09/21/14 [facility] [address] [place] [phone] Yehuda Quintero MD Physician Other Pain Management 11/02/14 [facility] 9550 [facility] 100 [place] [address] Agustín Ross MD Physician Other Orthopedic Surgery 11/02/14 [facility] [address] [place] [address] Pippa Noel, RN RN Case Coordinator 02/11/15 11/10/15 Marshal Acosta Other Dental Glue Plant Operator 10/05/[address] [place] [address] Posey Other Audiology 10/05/13 [place], [place] documented as of this encounter
--- OUTSIDE RECORDS SUMMARY | 2022-06-07 20:55 | XMS_ITS | Encounter Summary ---
:1935 Author Organization [employer] Address [address] [address] Phone Care Team Providers Name Role Phone Rima Bedolla MD Primary Care Provider [phone] Shanice Zarco MD Unavailable Chuy Falcon MD Unavailable Will Dubois MD Unavailable Yehuda Quintero MD Unavailable Agustín Ross MD Unavailable Pippa Noel RN Unavailable Unavailable Reason for Visit Reason Comments Refill Request rOPINIRole (REQUIP) 0.25 MG Encounter Details Date Type Department Care Team Description 06/08/2015 Refill [facility] Riaz Bedolla efill Request FAMILY MEDICINE Rima Mosher MD (rOPINIRole (REQUIP) 2023 [facility] eet [address] 0.25 MG ) [place] [address] [place], [place] [phone] (Wo rk) Social History Tobacco Use Types [...] rOPINIRole (REQUIP) 0.25 TAKE ONE TABLET BY 90 Tab 10 09/201406/29/2016 MG tablet MOUTH THREE TIMES DAILY documented in this encounter Miscellaneous Notes Telephone Encounter - Jennfier Warren RN - 06/09/2015 10:17 PM CST The refill request is Ok to authorize per the Medication Refill Protocol. IC INFORMATION RELATIONS MANAGER Telephone Encounter - [employer], Refill Wizard - 06/08/2015 2:12 PM CST rOPINIRole (REQUIP) 0.25 MG tablet [Pharmacy Med Name: ROPINIRole HCl Oral Tablet 0.25 MG] - REFILL: 11 months - PROTOCOL: Neurology: Parkinsonian Agents - RATIONALE: This refill should last until the patient is due for an office visit. - LAST QUALIFYING VISIT WITH RIMA BEDOLLA K: 04/27/2015 - NEXT SCHEDULED VISIT: None - MEDICATION STARTED: 04/27/2015 - LAST REFILLED ON: 04/27/2015, QTY: 30, Refills: 1, Sig: take 1 tab by mouth three times a day. (changed but equivalent) - LAST FILL DATE FROM PHARMACY: 05/06/2015 Powered by [employer], Reference: [id number], 06/08/2015 2:12:39 PM KEN, Pool: KLEVER ([id number]) IC INFORMATION RELATIONS MANAGER documented in this encounter Plan of Treatment Not on filedocumented as of this encounter Goals Goal Patient Goal Associated Recent Patient-Stated? Author Type Problems Progress I want to work Lifestyle Epidural No Wistrom-T he towards getting abscess sing, Lorena a my back pain at E, OPTOMETRIST, a lower and AIR COMPRESSOR ENGINEER more tolerable level. Note: Formatting of [...] Start Date End Date rOPINIRole (REQUIP) 0.25 Take 1 Tab by mouth 5 06/08/2015 MG tablet three times a day. documented as of this encounter Care Teams Rn Telephonic Relationship Specialty Start Date End Date Chioma, PCP - General Family Medicine 06/04/11 01/03/17 Rima Mosher MD [address] [address] Shanice Zarco MD Physician Other Ophthalmology 10/05/[address] [place] [address] Chuy Falcon, Physician Other Cardiology 07/16/14 523 [place], [place] [address] Will Dubois MD Physician Other Dermatology 09/21/14 [facility] [address] [place] [phone] Yehuda Quintero MD Physician Other Pain Management 11/02/14 [facility] [address] [place] [address] Agustín Ross MD Physician Other Orthopedic Surgery 11/02/14 [facility] [address] [facility] 201 [place] [address] Pippa Noel, RN RN Gear Hobber Operator 02/11/15 11/10/15 Marshal Acosta Other Dental Remedial Project Manager 10/05/[address] [place] [phone] Posey Other Audiology 10/05/13 [place], [place] documented as of this encounter
--- OUTSIDE RECORDS SUMMARY | 2022-06-07 20:55 | XMS_ITS | Encounter Summary ---
:1935 Author Organization [employer] Address [address] [address] Phone Care Team Providers Name Role Phone Deirdre Bedolla MD Primary Care Provider [phone] Shanice Zarco MD Unavailable Chuy aFlcon MD Unavailable Will Dubois MD Unavailable Yehuda Quintero MD Unavailable Agustín Ross MD Unavailable Pippa Noel RN Unavailable Unavailable Reason for Visit Reason Comments Care Coordination Program HRA Care Plan Encounter Details Date Type Department Care Team Description 02/25/2015 [facility] Pippa Noel, Care Coordination [facility] ME[facility]O ALMEIDA RN Program (HRA); Care 2023 [place], [place] [phone] Social History Tobacco Use Types Packs/Day Years [...] 11/17/2014 Activities documented as of this encounter Progress Notes Pippa Bai RN - 02/25/2015 12:21 PM CDT HRA updated. documented in this encounter Plan of Treatment Not on filedocumented as of this encounter Goals Goal Patient Goal Associated Recent Patient-Stated? 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 Note: Formatting of this [...] as of this encounter Visit Diagnoses Diagnosis Other specified examination - Primary documented in this encounter Care Teams Director Selection And Administration Relationship Specialty Start Date End Date Chioma PCP - General Family Medicine 06/04/11 01/03/17 Deirdre Mosher MD [address] [phone] Shanice Zarco MD Physician Other Ophthalmology 10/05/[address] [place] [phone] Chuy Falcon, Physician Other Cardiology 07/16/14 3 [place], [place] [phone] Will Dubois MD Physician Other Dermatology 09/21/14 [facility] [address] [place] [phone] Yehuda Quintero MD Physician Other Pain Management 11/02/14 [facility] [address] [phone] Agustín Ross MD Physician Other Orthopedic Surgery 11/02/14 [facility] [address] [place] [address] Pippa Noel, RN RN Manager Strategic Development 02/11/15 11/10/15 Marshal Acosta Other Dental Mosaic Technician 10/05/[address] [place] [address] Posey Other Audiology 10/05/13 [place], [place] documented as of this encounter
--- OUTSIDE RECORDS SUMMARY | 2022-06-07 20:55 | XMS_ITS | Encounter Summary ---
:1935 Author Organization [employer] Address [address] [address] Phone Care Team Providers Name Role Phone Deirdre Bedolla MD Primary Care Provider [phone] Shanice Zarco MD Unavailable Chuy Falcon MD Unavailable Will Dubois MD Unavailable Yehuda Quintero MD Unavailable Agustín Ross MD Unavailable Pippa Noel RN Unavailable Unavailable Reason for Visit Reason Onset Date Comments Refill Request 03/07/2015 Encounter Details Date Type Department Care Team Description 03/07/2015 Refill [facility] Jerry Haro reba Ramos, REINA Refill Request MEDICINE 2023 [place], [place] [address] Social History Tobacco Use Types Packs/Day Years [...] 11/17/2014 Activities documented as of this encounter Ordered Prescriptions Prescription Sig Dispensed Refills Start Date End Date FLUoxetine (PROZAC) 20 MG Take 1 Cap by mouth 90 Cap 1 0 03/07/2015 06/22/2015 capsule one time a day. documented in this encounter Plan of Treatment Not on filedocumented as of this encounter Goals Goal Patient Goal Associated Recent Patient-Stated? 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 Note: Formatting of [...] Reason Start Date End Date FLUoxetine (PROZAC) 20 MG Take 1 Cap by mouth 02/26/20 15 03/07/2015 capsule one time a day. documented as of this encounter Care Teams Adjudication Specialist Relationship Specialty Start Date End Date Chioma PCP - General Family Medicine 06/04/11 01/03/17 Deirdre Mosher MD [address] [phone] Shanice Zarco MD Physician Other Ophthalmology 10/05/[address] [place] [phone] Chuy Falcon, Physician Other Cardiology 07/16/14 523 [place], [place] [address] Will Dubois MD Physician Other Dermatology 09/21/14 [facility] [address] [place] [address] Yehuda Quintero MD Physician Other Pain Management 11/02/14 [facility] [address] [place] [address] Agustín Ross MD Physician Other Orthopedic Surgery 11/02/14 [facility] [address] [address] Pippa Noel, RN RN [place]anau Support Worker 02/11/15 11/10/15 Marshal Acosta Other Dental Interpreter For The Deaf 10/05/[address] [place] [phone] Posey Other Audiology 10/05/13 [place], [place] documented as of this encounter
--- OUTSIDE RECORDS SUMMARY | 2022-06-07 20:55 | XMS_ITS | Encounter Summary ---
:1935 Author Organization [employer] Address [address] [address] Phone Care Team Providers Name Role Phone Deirdre Bedolla MD Primary Care Provider [phone] Shanice Zarco MD Unavailable Chuy Falcon MD Unavailable Will Dubois MD Unavailable Yehuda Quintero MD Unavailable Agustín Ross MD Unavailable Pippa Noel RN Unavailable Unavailable Reason for Visit Reason Comments Refill Request Encounter Details Date Type Department Care Team Description 04/15/2015 Refill D [facility] UROLOGY Javy Ruiz MD Refill Request [address] [place] [address] [place] [address] [phone] (Wo rk) Social History Tobacco Use Types [...] TAKE ONE TABLET BY 90 Tab 0 1 08/03/2015 tablet MOUTH ONE TIME DAILY DO NOT CRUSH documented in this encounter Miscellaneous Notes Telephone Encounter - Deirdre Kumar RN - 04/20/2015 3:42 PM CDT Patient needs appt for further refills. documented in this encounter Plan of Treatment Not on filedocumented as of this encounter Goals Goal Patient Goal Associated Recent Patient-Stated? 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 Note: Formatting of [...] Start Date End Date finasteride (PROSCAR) 5 Take 1 Tab by mouth 04/07/2014 04/15/2015 MG tablet one time a day. Do not crush. documented as of this encounter Care Teams Pretzel Cooker Relationship Specialty Start Date End Date Chioma PCP - General Family Medicine 06/04/11 01/03/17 Deirdre Mosher MD [address] [address] Shanice Zarco MD Physician Other Ophthalmology 10/05/[address] [place] [address] Chuy Falcon, Physician Other Cardiology 07/16/14 523 [place], [place] [address] Will Dubois MD Physician Other Dermatology 09/21/14 [facility] [address] [place] [address] Yehuda Quintero MD Physician Other Pain Management 11/02/14 [facility] [address] [facility] 100 [place] [address] Agustín Ross MD Physician Other Orthopedic Surgery 11/02/14 [facility] [address] [place] [address] Pippa Noel, RN RN Mysql Database Developer 02/11/15 11/10/15 Marshal Acosta Other Dental Pattern Maker Programer 10/05/[address] [place] [address] [address] Posey Other Audiology 10/05/13 [place], [place] documented as of this encounter
--- OUTSIDE RECORDS SUMMARY | 2022-06-07 20:55 | XMS_ITS | Encounter Summary ---
:1935 Author Organization [facility] [employer] Address [address] [address] Phone Care Team Providers Name Role Phone Deirdre Bedolla MD Primary Care Provider [phone] Shanice Zarco MD Unavailable Chuy Falcon MD Unavailable Will Dubois MD Unavailable Yehdua Quintero MD Unavailable Agustín Ross MD Unavailable Dennise Noel RN Unavailable Unavailable Reason for Visit Reason Onset Date Comments Refill Request 06/08/2015 Tramadol - Left mess age Encounter Details Date Type Department Care Team Description 06/08/2015 Refill [facility] NURSE Class, Riaz Chang Refill Request (Tramadol CARE LINE - Left message) 400 [place] [address] Social History Tobacco Use Types [...] Date End Date traMADol (ULTRAM) 50 MG Take 2 Tabs by mouth 60 Tab 0 06/22/2015 tablet at bedtime. TAKE ONE TABLET BY MOUTH NIGHTLY AT BEDTIME NEEDED documented in this encounter Miscellaneous Notes Telephone Encounter - Peri Phillips - 06/10/2015 1:00 PM CST traMADol (ULTRAM) 50 MG tablet - WARNING #1: A duplicate request was processed on 06/10/2015. - WARNING #2: Validate ordering provider. - VIOLATION: Opioid Contract was not found within the last 5 years of the patient record. - PROTOCOL: Analgesics: Opioid Agonists - Tramadol (Controlled Substance) - LAST QUALIFYING VISIT WITH DEIRDRE BEDOLLA K: 04/27/2015 - NEXT SCHEDULED VISIT: None - MEDICATION STARTED: 09/22/2014 - LAST REFILLED: 0 DAYS AGO ON 06/10/2015, QTY: 60, Refills: 0, Sig: take 2 tabs by mouth at bedtime. take one tablet by mouth nightly at bedtime as needed (unchanged) Powered by [employer], Reference: [id number], 06/10/2015 1:00:05 PM SLURRY MIXER, Pool: KLEVER ([id number]) Addendum Note - Dennise Tuttle RN - 06/10/2015 12:59 PM SLURRY MIXER Addended by: DENNISE UTTTLE on: 06/10/2015 12:59 PM Modules accepted: Orders RY MIXER Telephone Encounter - Dennise Tuttle RN - 06/10/2015 12:58 PM CST Message left for patient to return call to verify correct dosage of Ultram, is he taking (2) tabs atbedtime or (1) tablet by mouth at bedtime? RY MIXER Telephone Encounter - Dennise Tuttle RN - 06/08/2015 4:36 PM CST Deirdre Bedolla MD, [facility] calls requesting verification of correct patient directions to use as there is conflicting directions for the patient's Tramadol and pharmacy is unable to fill this prescription at this time for patient until directions are clarified. NCL is also unable to refill this prescription dueit being a controlled substance. Please advise. RY MIXER documented in this encounter Plan of Treatment Not on filedocumented as of this encounter Goals Goal Patient Goal Associated Recent Patient-Stated? Author Type Problems Progress I want to work Lifestyle Epidural No Wistrom-T he towards getting abscess sing, Lorena a my back pain at E, HEEL FORMER, a lower and MEDICAL SCRIBE more tolerable level. Note: Formatting of this [...] Date End Date traMADol (ULTRAM) 50 MG Take 2 Tabs by mouth 5 06/08/2015 tablet at bedtime. TAKE ONE TABLET BY MOUTH NIGHTLY AT BEDTIME NEEDED documented as of this encounter Care Teams Dipper Machine Operator Relationship Specialty Start Date End Date Chioma, PCP - General Family Medicine 06/04/11 01/03/17 Deirdre Mosher MD [address] [phone] Shanice Zarco MD Physician Other Ophthalmology 10/05/[address] [place] [phone] Chuy Falcon, Physician Other Cardiology 07/16/14 523 [place], [place] [address] Will Dubois MD Physician Other Dermatology 09/21/14 [facility] [address] [place] [address] Yehuda Quintero MD Physician Other Pain Management 11/02/14 [facility] 9550 [facility] 100 [place], [place] [address] Agustín Ross MD Physician Other Orthopedic Surgery 11/02/[address] [facility] [address] [place] [address] Dennise Noel, RN RN Satellite Communications Operator 02/11/15 11/10/15 Marshal Acosta Other Dental Check Pilot 10/05/13 [address] [place], [place] [address] Dr Posey Other Audiology 10/05/13 [place], [place] documented as of this encounter
--- OUTSIDE RECORDS SUMMARY | 2022-06-07 20:55 | XMS_ITS | Encounter Summary ---
:1935 Author Organization [facility] [employer] Address [address] [address] Phone Care Team Providers Name Role Phone Deirdre Bedolla MD Primary Care Provider [phone] Shanice Zarco MD Unavailable Chuy Falcon MD Unavailable Will Dubois MD Unavailable Yehuda Quintero MD Unavailable Agustín Ross MD Unavailable Alysia Claudio RN Unavailable Reason for Visit Reason Onset Date Comments Refill Request 12/31/2014 Encounter Details Date Type Department Care Team Description 12/31/[address] [facility] NURSE CARE Deirdre Bedolla Refill Request KIRA Mosher MD 400 [facility] [address] [address] [place], [place] [address] (Wo rk) Social History Tobacco Use Types [...] Notes Telephone Encounter - Peri Phillips - 12/31/2014 11:37 AM CDT pramipexole (MIRAPEX) 0.125 MG tablet - WARNING: A duplicate request was processed on 12/30/2014. - REFILL: 12 months (if warnings resolved) - PROTOCOL: Neurology: Parkinsonian Agents - RATIONALE: This refill should last until the patient is due for an office visit. - LAST QUALIFYING VISIT WITH DEIRDRE BEDOLLA K: 12/15/2014 - NEXT SCHEDULED VISIT: None - MEDICATION STARTED: 10/20/2014 - LAST REFILLED ON: 10/20/2014, QTY: 30, Refills: 1, Sig: take 1 tab by mouth every evening. (unchanged) Powered by [employer], Reference: [id number], 12/31/2014 11:37:24 AM CDT, Pool: KLEVER ([id number]) Telephone Encounter - Gisela Ontiveros - 12/31/2014 11:36 AM CDT PRAMIPEXOLE DIHYDROCHLORIDE TAB 0.125 MG Si TAB PO IN THE EVENING Quantity: 30 Last Refill: 11-18-2014 documented in this encounter Plan of Treatment Not on filedocumented as of this encounter Goals Goal Patient Goal Associated Recent Patient-Stated? 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 Note: Formatting of [...] on filedocumented in this encounter Care Teams Electrical Unit Rebuilder Relationship Specialty Start Date End Date Chioma PCP - General Family Medicine 06/04/11 01/03/17 Deirdre Mosher MD [address] [phone] Shanice Zarco MD Physician Other Ophthalmology 10/05/[address] [place] [address] Chuy Falcon, Physician Other Cardiology 07/16/14 523 [place] [address] Will Dubois MD Physician Other Dermatology 09/21/14 [facility] [address] [place] [address] Yehuda Quintero MD Physician Other Pain Management 11/02/14 [facility] 9550 [facility] 100 [place] [address] Agustín Ross MD Physician Other Orthopedic Surgery 11/02/14 [facility] [address] [facility] 201 [place] [address] Alysia Claudio, RN RN Thread Weaver 11/30/14 02/10/15 Marshal Acosta Other Dental Integration Project Manager 10/05/[address] [place] [address] [address] Posey Other Audiology 10/05/13 [place], [place] documented as of this encounter
--- OUTSIDE RECORDS SUMMARY | 2022-06-07 20:55 | XMS_ITS | Encounter Summary ---
:1935 Author Organization [employer] Address [address] [address] Phone Care Team Providers Name Role Phone Deirdre Bedolla MD Primary Care Provider [phone] Shanice Zarco MD Unavailable Chuy Falcon MD Unavailable Will Dubois MD Unavailable Yehuda Quintero MD Unavailable Agustín Ross MD Unavailable Pippa Noel RN Unavailable Unavailable Reason for Visit Reason Onset Date Comments Hip Pain 06/21/2015 Encounter Details Date Type Department Care Team Description 06/21/2015 Nurse Triage [facility] Kary Leon, RN Hip Pain FAMILY MEDICINE 2023 [place], [place] [phone] Social History Tobacco Use Types Packs/Day Years [...] this encounter Miscellaneous Notes Telephone Encounter - Kary Leon, RN - 06/21/2015 2:26 PM CST Patient has a history of hip pain and hip surgery. Last week he had a fall on the front porch. She did not realize he had hurt his hip. However, the pain in his left hip has been increasing gradually over the past week. It is now interfering with his activities. He was scheduled to be seen tomorrow. Protocol: HIP PAIN-A-OH Negative: Can't stand (bear weight) or walk Negative: Fever and red area (or area very tender to touch) Negative: Patient sounds very sick or weak to the triager Negative: Looks like a broken bone or dislocated joint (e.g., crooked or deformed) Negative: Sounds like a life-threatening emergency to the triager Affirmative: Followed a hip injury Protocol: HIP INJURY-A-OH Negative: Major bleeding (actively dripping or spurting) that can't be stopped Negative: Bullet, stabbed by knife or other serious penetrating wound Negative: Looks like a dislocated joint (crooked or deformed) Negative: Can't stand (bear weight) or walk Negative: Sounds like a life-threatening emergency to the triager Affirmative: Injury interferes with work or school Disposition of See today or tomorrow in office suggested. Negative: Patient wants to be seen Negative: Looks infected (e.g., spreading redness, pus, red streak) Negative: Sounds like a serious injury to the triager Negative: Dirt in the wound and not removed after 15 minutes of scrubbing Negative: Bleeding won't stop after 10 minutes of direct pressure (using correct technique) Negative: Skin is split open or gaping (length > 1/2 inch or 12 mm) Negative: SEVERE pain (e.g., excruciating) Negative: Wound looks infected Negative: Puncture wound of hip area Affirmative: Injury and pain has not improved after 3 days Disposition of See Within 3 Days in Office suggested. 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 Note: Formatting of this [...] filedocumented in this encounter Care Teams Senior Commissary Agent Relationship Specialty Start Date End Date Chioma PCP - General Family Medicine 06/04/11 01/03/17 Deirdre Mohser MD [address] [phone] Shanice Zarco MD Physician Other Ophthalmology 10/05/[address] [place] [phone] Chuy Falcon, Physician Other Cardiology 07/16/14 523 [place], [place] [address] Will Dubois MD Physician Other Dermatology 09/21/14 [facility] [address] [place] [address] Yehuda Quintero MD Physician Other Pain Management 11/02/14 [facility] 9550 [facility] 100 [place], [place] [phone] Agustín Ross MD Physician Other Orthopedic Surgery 11/02/14 [facility] [address] [address] Pippa Noel, RN RN Horse Breaker 02/11/15 11/10/15 Marshal Acosta Other Dental Kersey Department Supervisor 10/05/13 [address] [place], [place] [phone] Dr Psoey Other Audiology 10/05/13 [place], [place] documented as of this encounter
--- OUTSIDE RECORDS SUMMARY | 2022-06-07 20:55 | XMS_ITS | Encounter Summary ---
:1935 Author Organization [employer] Address [address] [address] Phone Care Team Providers Name Role Phone Deirdre Bedolla MD Primary Care Provider [phone] Shanice Zarco MD Unavailable Chuy Falcon MD Unavailable Will Dubois MD Unavailable Yehuda Quintero MD Unavailable Agustín Ross MD Unavailable Pippa Noel RN Unavailable Unavailable Reason for Visit Reason Onset Date Comments Care Coordination Program 04/26/201504/27 Susu P re Visit Pre-visit call 04/26/2015 Encounter Details Date Type Department Care Team Description 04/26/[address] [facility] Pippa Noel, Care Coordination [facility] RN Program (04/27 [facility] Pre Visit); Pre-visit Street call [place] [phone] Social History Tobacco Use Types Packs/Day Years [...] Telephone Encounter - Pippa Bai RN - 04/26/2015 9:13 AM CDT CCP Previsit Call Pt has appt with Dr. Cristobal on 04/27 @ 230 for 3 mo med check. Pt has updated Care Plan - Yes Any visits with a specialists or other physicians since your last visit - Yes 04/[address] Urrutia Pt seen for closed head injury and left thumb pain and dislocation after falling down several steps and striking drywall. He is on antiplatelet drugs, CAT scan was ordered along with a head injury protocol. Lab testing is noted above his CAT scan was unremarkable. His dislocated thumb was reduced after digital block. Home treatments advised along with warning s/s to return. Advised to wear splint. Given [place] 1 every 6 hrs prn. Referred to ortho in 5-7 days. Any changes in your health or behavior - No Objectives/Goals for the visit. What are the 2-3 questions or issues? 1. has noted pt recently started jerking a lot in his sleep, like it's neurologic 2. Constant foot movement- up and down motion like he's on a gas pedal Would like evaluated. documented in this encounter Plan of Treatment Not on filedocumented as of this encounter Goals Goal Patient Goal Associated Recent Patient-Stated? 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 Note: Formatting of [...] on filedocumented in this encounter Care Teams Lay Out Technician Relationship Specialty Start Date End Date Chioma, PCP - General Family Medicine 06/04/11 01/03/17 Deirdre Mosher MD [address] [address] Shanice Zarco MD Physician Other Ophthalmology 10/05/[address] [place] [phone] Chuy Falcon, Physician Other Cardiology 07/16/14 523 [place], [place] [address] Will Dubois MD Physician Other Dermatology 09/21/14 [facility] [address] [place] [address] Yehuda Quintero MD Physician Other Pain Management 11/02/14 [facility] 9550 [facility] 100 [place], [place] [address] Agustín Ross MD Physician Other Orthopedic Surgery 11/02/14 [facility] [address] [place] [address] Pippa Noel, RN RN Applied Psychology Professor 02/11/15 11/10/15 Marshal Acosta Other Dental Teen Counselor 10/05/13 [address] [place], [place] [address] Dr Posey Other Audiology 10/05/13 [place], [place] documented as of this encounter
--- OUTSIDE RECORDS SUMMARY | 2022-06-07 20:55 | XMS_ITS | Encounter Summary ---
:1935 Author Organization [email or web address] Address [address] [address] Phone Care Team Providers Name Role Phone Deirdre Bedolla MD Primary Care Provider [phone] Shanice Zarco MD Unavailable Chuy Falcon MD Unavailable Will Dubois MD Unavailable Yehuda Quintero MD Unavailable Agustín Ross MD Unavailable Pippa Noel RN Unavailable Unavailable Encounter Details Date Type Department Care Team Description 05/26/2015 Scanned - Medical [facility] HIS Elsewhere, Pcp Reports 400 [place] [address] Social History Tobacco Use Types [...] Lorena a my back pain at E, CHISEL GRINDER, a lower and OFFICE NURSE more tolerable level. Note: Formatting of this [...] Name Priority Date/Time Associated Diagnosis Comme nts EXTERNAL CARDIOLOGY DOCUMENTATION Routine 05/10/2015 documented in this encounter Results EXTERNAL CARDIOLOGY DOCUMENTATION (05/10/2015) Narrative This result has an attachment that is no t available. Pcp Elsewhere IP ECG ORDERABLES documented in this encounter Visit Diagnoses Not on filedocumented in this encounter Care Teams Rcp Relationship Specialty Start Date End Date Chioma PCP - General Family Medicine 06/04/11 01/03/17 Deirdre Mosher MD [address] [address] Shanice Zarco MD Physician Other Ophthalmology 10/05/[address] [place] [phone] Chuy Falcon, Physician Other Cardiology 07/16/14 [address] [place], [place] [address] Will Dubois MD Physician Other Dermatology 09/21/14 [facility] [address] [place] [phone] Yehuda Quintero MD Physician Other Pain Management 11/02/14 [facility] 9550 [facility] 100 [place] [address] Agustín Ross MD Physician Other Orthopedic Surgery 11/02/14 [facility] [address] [facility] 201 [place] [address] Pippa Noel, RN RN Manager In Home 02/11/15 11/10/15 Marshal Acosta Other Dental Virtualization Architect 10/05/[address] [place] [phone] Posey Other Audiology 10/05/13 [place], [place] documented as of this encounter
--- OUTSIDE RECORDS SUMMARY | 2022-06-07 20:55 | XMS_ITS | Encounter Summary ---
:1935 Author Organization [employer] Address [address] [address] Phone Care Team Providers Name Role Phone Deirdre Bedolla MD Primary Care Provider [phone] Shanice Zarco MD Unavailable Chuy Falcon MD Unavailable Will Dubois MD Unavailable Yehuda Quintero MD Unavailable Agustín Ross MD Unavailable Pippa Noel RN Unavailable Unavailable Reason for Visit Reason Onset Date Comments Erroneous encounter-disregard 06/21/2015 Encounter Details Date Type Department Care Team Description 06/21/2015 Nurse Triage [facility] Kary L[facility] NE T, RN encounter-disregard 2023 [place] [address] Social History Tobacco Use Types [...] encounter Miscellaneous Notes Telephone Encounter - Kary Leon RN - 06/21/2015 2:32 PM CST A user error has taken place: encounter would not open initially. . N RESOURCES TRAINEE documented in this encounter Plan of Treatment Not on filedocumented as of this encounter Goals Goal Patient Goal Associated Recent Patient-Stated? 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 Note: Formatting of this [...] on filedocumented in this encounter Care Teams Trench Digger Helper Relationship Specialty Start Date End Date Chioma PCP - General Family Medicine 06/04/11 01/03/17 Deirdre Mosher MD [address] [address] Shnaice Zarco MD Physician Other Ophthalmology 10/05/[address] [place] [phone] Chuy Falcon, Physician Other Cardiology 07/16/14 523 [place], [place] [address] Will Dubois MD Physician Other Dermatology 09/21/14 [facility] [address] [place] [phone] Yehuda Quintero MD Physician Other Pain Management 11/02/14 [facility] [address] [place] [address] Agustín Ross MD Physician Other Orthopedic Surgery 11/02/14 [facility] [address] [address] Pippa Noel, RN RN Director Education 02/11/15 11/10/15 Marshal Acosta Other Dental Trauma Doctor 10/05/[address] [place] [address] [address] Posey Other Audiology 10/05/13 [place], [place] documented as of this encounter
--- OUTSIDE RECORDS SUMMARY | 2022-06-07 20:55 | XMS_ITS | Encounter Summary ---
:1935 Author Organization [employer] Address [address] [address] Phone Care Team Providers Name Role Phone Deirdre Bedolla MD Primary Care Provider [phone] Shanice Zarco MD Unavailable Chuy Falcon MD Unavailable Will Dubois MD Unavailable Yehuda Quintero MD Unavailable Agustín Ross MD Unavailable Pippa Noel RN Unavailable Unavailable Reason for Visit Reason Onset Date Comments Care Coordination Program 04/28/201504/27 Susu P ost Visit Post-visit call 04/28/2015 Encounter Details Date Type Department Care Team Description 04/28/2015 Telephone [facility] Pippa Noel, Care Coordination [facility] RN Program (04/27 [facility] Post Visit) ; [place] [address] Social History Tobacco Use Types Packs/Day [...] Telephone Encounter - Pippa Bai RN - 04/29/2015 12:03 PM CDT Spoke with Mary Ann, who verbalized understanding. Agreeable to plan. She had no further questions orconcerns at this time. Will keep up the good work on DM and try to lose weight. Telephone Encounter - Pippa Bai RN - 04/28/2015 9:53 AM CDT CCP Post visit Reviewed notes from office visit with Dr. Cristobal on 04/27. Changes were made to Care Plan. Med changes made. Call placed to pt to discuss and review: ASSESSMENT AND PLAN: 1. 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 Been a very difficult case to treat as he has been intolerant of severe medications, has had lots of procedures including spinal cord stimulator, injections, etc., really to no avail. Tolerating tramadol at least so that is a start. We will have him try increasing from 50 mg at night to 2 at night and see if this does anything. If it is not helpful, I would have a low threshold for just discontinuing it as I certainly do notwant Bill on meds that are not helping him. If it is helpful, we could add a daytime dose just kind of out of compassion for this gentleman who really likely is looking at chronic pain for the rest of his life with this infected spinal hardware. 2. Hypertension, well controlled. 3. Type 2 diabetes. Check an A1c. 4. Heart disease. Is on both a baby aspirin and Plavix daily. Celebrex is certainly high risk, but again we just kind of are using it is as compassionate care in him even though it does increase his risk of heart attack a little bit. He is appropriately on a high-potency statin and has been symptom free. 5. Anxiety. Increase Prozac from 20 mg daily to 30 mg daily. My hope is this may just be a short-term increase as he gets through this time of transition in his life. He will see me back in a month to see how he is doing with the increase. 6. Flu shot was given today. Pt did not verbalize understanding of plan. Left message to return call. Planned follow up: 1 month with PCP documented in this encounter Plan of Treatment Not on filedocumented as of this encounter Goals Goal Patient Goal Associated Recent Patient-Stated? 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 Note: Formatting of this [...] on filedocumented in this encounter Care Teams Control Room Helper Relationship Specialty Start Date End Date Chioma PCP - General Family Medicine 06/04/11 01/03/17 Deirdre Mosher MD [address] [id number] Shanice Zarco MD Physician Other Ophthalmology 10/05/[address] [place] [phone] Chuy Falcon, Physician Other Cardiology 07/16/14 [address] [place], [place] [address] Will Dubois MD Physician Other Dermatology 09/21/14 [facility] [address] [place] [phone] Yehuda Quintero MD Physician Other Pain Management 11/02/14 [facility] [address] [id number] Agustín Ross MD Physician Other Orthopedic Surgery 11/02/14 [facility] [address] [place] [address] Pippa Noel, RN RN Oxygen Equipment Preparer 02/11/15 11/10/15 Marshal Acosta Other Dental Collection Coordinator 10/05/[address] [place] [id number] [address] Posey Other Audiology 10/05/13 [place], [place] documented as of this encounter
--- OUTSIDE RECORDS SUMMARY | 2022-06-07 20:55 | XMS_ITS | Encounter Summary ---
:1935 Author Organization [employer] Address [address] [address] Phone Care Team Providers Name Role Phone Deirdre Bedolla MD Primary Care Provider [phone] Shanice Zarco MD Unavailable Chuy Falcon MD Unavailable Will Dubois MD Unavailable Yehuda Quintero MD Unavailable Agustín Ross MD Unavailable Pippa Noel RN Unavailable Unavailable Reason for Visit Reason Comments Fall Finger Injury Head Injury Without Loc Encounter Details Date Type Department Care Team Description 04/10/2015 Emergency [facility] Maegan Guzman (closed head injury), initial encounter (Primary Dx); Center [facility] Contusion shoulder/arm, left, initial en counter; Department [address] Dislocation of left thumb, i nitial encounter [address] [place] [address] [place]LEON [address] [phone] Social History Tobacco Use Types Packs/Day Years Used Date Smoking Tobacco: Never Smokeless Tobacco: Never Alcohol Use Standard Drinks/Week Comments No 0 (1 standard drink = 0.6 oz pure alcoho l) Sex Assigned at Date Recorded Not on file documented as of this encounter Last Filed Vital Signs Vital Sign Reading Time Taken Comments Blood Pressure 127/75 04/10/2015 10:41 PM CDT Pulse 74 04/10/2015 10:41 PM CDT Temperature 36.3 ??C (97.3 ??F) 04/10/2015 9:35 PM CDT Respiratory Rate 16 04/10/2015 10:41 PM CDT Oxygen Saturation 98% 04/10/2015 10:41 PM CDT Inhaled Oxygen Concentration - - Weight 95.3 kg (210 lb) 04/10/2015 9:35 PM CDT Height 172.7 cm (5' 8) 04/10/2015 9:35 PM CDT Body Mass Index 31.93 04/10/2015 9:35 PM CDT documented in this encounter Functional Status Functional Status Response Date of Assessment Patient's Vision Adequate to Safely Complete Daily No 04/10/2015 Activities Patient's Memory Adequate to Safely Complete Daily No 11/17/2014 Activities Cognitive Status Response Date of Assessment Patient's Judgment Adequate to Safely Complete Daily No 04/10/2015 Activities documented as of this encounter Discharge Instructions Discharge InstructionsMaegan Urrutia MD - 04/10/2015 11:08 PM CDT Wear splint Elevate extremity when able Cool compresses, over cloth, 4-6 times a day for 30 minutes per time. It helps with swelling or pain Head injury information [place] 1 every 6 hrs if pain no alcohol or driving while on this medication, due to risk of sleepiness and sedation. Call and see orthopedics about your thumb 5-7 days Return if worsening pain, confusion, lethargy, vomiting AttachmentsThe following attachments cannot be sent through Care Everywhere. DISLOCATED FINGER (DIVEHI)documented in this encounter Medications at Time of Discharge Medication Sig Dispensed Refills Start Date End Date amLODIPine (NORVASC) 5 MG TAKE ONE TABLET BY 90 Tab 3 tablet MOUTH ONE TIME DAILY potassium chloride CR TAKE ONE TABLET BY 90 Tab 2 2014 (K-DUR, KLOR-CON M) 20 MEQ MOUTH ONE TIME DAILY tablet Ascorbic Acid (VITAMIN C) Chew and swallow one 90 Cap 3 11/07/2014 500 MG Cap tablet by mouth one time daily potassium chloride Take 15 mL by mouth 150 mL 11 10/13/19 15 (KAYCIEL) 20 MEQ/15ML one time a day. Take (10%) liquid with food; do not take liquid full strength, must be diluted in 2-6 parts of fluid. atorvaSTATin (LIPITOR) 40 Take 1 Tab by mouth 90 Tab 3 0 04/05/2014 MG tablet at bedtime. polyethylene glycol 3350 MIX 17 GRAMS (ONE 527 g 11 03/09 (MIRALAX) powder CAPFUL) IN LIQUID AND DRINK EVERY DAY FORCONSTIPATION. Multiple Vitamin Take 1 Tab by mouth 100 Tab 0 12/10/2012 (MULTIVITAMIN) tablet one time a day. sennosides-docusate sodium Take 2 Tabs by mouth 100 Tab 0 10/10/2012 (SENOKOT-S) 8.6-50 MG per one time a day. tablet ASPIRIN LOW DOSE 81 MG 81 mg 1 tablet, ORAL, 81.000 0 tablet DAILY, 08/05/09 14:22:55 documented as of this encounter Ordered Prescriptions Prescription Sig Dispensed Refills Start Date End Date HYDROcodone-acetaminop Take 1 Tab by mouth 12 Tab 0 10/201404/27/2015 hen (NORCO) 5-325 MG every six hours as oral tablet needed for Pain. Limit acetaminophen to 4000 mg per day from all sources. documented in this encounter Discharge Disposition Disposition Code Departure Means Destination Home and/or Self [facility] documented in this encounter ED Notes Yumi Abdullahi RN - 04/10/2015 11:20 PM CDT Pt and verbalized understanding of discharge paperwork. Pt was told to follow up with Orthopedics and to return to ER with any worsening symptoms. Maegan Urrutia MD - 04/10/2015 10:46 PM CDTAssociated Order(s): ORTHOPEDIC INJURY TREATMENT Images from the original note were not included. Patient: Simon Castillo Chief Complaint: Fall; Finger Injury; and Head Injury Without Loc History of Present Illness: HPI Comments: 79-year-old male presents with a fall. Patient states he was standing near the top of a step. He couldn't see in the dark. He miss stepped and fell down several [...] chest pain or breathing problems. He denies newback pain. He has no abdominal pain. . Review of Systems: Review of Systems Constitutional: Negative. HENT: Negative. Eyes: Negative. Respiratory: Negative. Cardiovascular: Negative. Gastrointestinal: Negative. Genitourinary: Negative. Musculoskeletal: Negative. Neurological: Negative. Hematological: Negative. Allergies Allergen Reactions ??? Penicillins Prior to Admission Medication List Last Medication Reconciliation Action: Completed by Nurse Yumi Abdullahi RN 04/10/2015 9:36 PM ASPIRIN LOW DOSE 81 MG tablet 81 mg 1 tablet, ORAL, DAILY, 08/05/09 14:22:55 Ascorbic Acid (VITAMIN C) 500 MG Cap Chew and swallow one tablet by mouth one time daily DULoxetine (CYMBALTA) 60 MG delayed release capsule TAKE ONE CAPSULE BY MOUTH ONE TIME DAILY DO NOT CRUSH FLUoxetine (PROZAC) 20 MG capsule Take 1 Cap by mouth one time a day. Hydrocodone-Acetaminophen (VICODIN) 5-300 MG Tab Take by mouth. 1 po at night as needed for pain. Multiple Vitamin (MULTIVITAMIN) tablet Take 1 Tab by mouth one time a day. amLODIPine (NORVASC) 5 MG tablet TAKE ONE TABLET BY MOUTH ONE TIME DAILY atenolol (TENORMIN) 25 MG tablet Take 1 Tab by mouth one time a day. atorvaSTATin (LIPITOR) 40 MG tablet Take 1 Tab by mouth at bedtime. celecoxib (CELEBREX) 200 MG capsule Take 1 Cap by mouth one time a day. Indications: Back Pain clopidogrel (PLAVIX) 75 MG tablet TAKE ONE TABLET BY MOUTH ONE TIME DAILY finasteride (PROSCAR) 5 MG tablet Take 1 Tab by mouth one time a day. Do not crush. gabapentin (NEURONTIN) 300 MG capsule Take 2 Caps by mouth three times a day. pantoprazole (PROTONIX) 40 MG delayed-release tablet TAKE ONE TABLET BY MOUTH ONE TIME DAILY DO NOT CRUSH polyethylene glycol 3350 (MIRALAX) powder MIX 17 GRAMS (ONE CAPFUL) IN LIQUID AND DRINK EVERY DAY FORCONSTIPATION. potassium chloride (KAYCIEL) 20 MEQ/15ML (10%) liquid Take 15 mL by mouth one time a day. Take with food; do not take liquid full strength, must be diluted in 2-6 parts of fluid. potassium chloride CR (K-DUR, KLOR-CON M) 20 MEQ tablet TAKE ONE TABLET BY MOUTH ONE TIME DAILY pramipexole (MIRAPEX) 0.125 MG tablet Take 1 Tab by mouth every evening. sennosides-docusate sodium (SENOKOT-S) 8.6-50 MG per tablet Take 2 Tabs by mouth one time a day. solifenacin (VESICARE) 10 MG tablet Take 1 Tab by mouth one time a day. tamsulosin (FLOMAX) 0.4 MG 24 hour capsule Take one cap by mouth once daily, swallow whole, do not crush or chew. traMADol (ULTRAM) 50 MG tablet TAKE ONE TABLET BY MOUTH NIGHTLY AT BEDTIME NEEDED Ongoing Comment Jessica Chua RN 10/05/2013 11:28 AM Person that helps with medications: Yes, Mary Ann How medications are managed: Mary Ann sets up every night. Medications are taken: By mouth Durable medical Supplier: Unknown Specific Med/pharmacy preferences: [facility] in [place] Past Medical History: Past Medical History Diagnosis Date ??? DM type 2 (diabetes mellitus, type 2) ([facility]) ??? Hypertension ??? 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 CAD (coronary artery disease) with history of SD and stent placement ??? Hyperlipidemia ??? Diverticulosis ??? Colon polyp Past Surgical History: Past Surgical History Procedure Laterality Date ??? Colonoscopy 05/02/2006 Junito Noel MD ??? Coronary angioplasty with stent placement ??? Back surgery L4 laminectomy, multiple level cervical fusion ??? Joint replacement Left left hip ??? Shoulder surgery Right right rotator cuff ??? Cataract removal ??? Tonsillectomy and adenoidectomy ??? Appendectomy ??? Hemorrhoid surgery ??? Spine surgery 10/15/2013 Spinal Cord Stimulator (Medtronic), Dr Ramey at [facility] ??? Cmplx cmg/void pressure study 04/07/2014 Dr. Ruiz Family History: No family history on file. Social History: He reports that he has never smoked. He has never used smokeless tobacco. He reports that he does not drink alcohol. Exam: BP 127/75 mmHg Pulse 74 Temp(Src) 97.3 ??F (36.3 ??C) (Oral) Resp 16 Ht 1.727 m (5' 8) Wt95.255 kg (210 lb) BMI 31.94 kg/m2 SpO2 98% Physical Exam: Physical Exam Constitutional: He is oriented to person, place, and time. He appears well- developed and well-nourished. HENT: Head: Normocephalic and atraumatic. Right Ear: Tympanic membrane and external ear normal. Left Ear: Tympanic membrane and external ear normal. Nose: Nose normal. Mouth/Throat: Oropharynx is clear and moist. Eyes: Conjunctivae and EOM are normal. Pupils are equal, round, and reactive to light. Neck: Normal range of motion and full passive range of motion without pain. Neck supple. No spinous process tenderness and no muscular tenderness present. Cardiovascular: Normal rate, regular rhythm, normal heart sounds and intact distal pulses. Pulmonary/Chest: Effort normal and breath sounds normal. Abdominal: Soft. Bowel sounds are normal. Musculoskeletal: He exhibits tenderness. He exhibits no edema. Hands: dilslocated MCP Left thumb. All other extremities non tender, full ROM, no deformities. Neurological: He is alert and oriented to person, place, and time. He has normal strength and normalreflexes. No cranial nerve deficit or sensory deficit. GCS eye subscore is 4. GCS verbal subscore is5. GCS motor subscore is 6. Skin: Skin is warm and dry. No rash noted. No lacerations or bruises Psychiatric: He has a normal mood and affect. His behavior is normal. Lab Results: Results for orders placed or performed during the hospital encounter of 04/10/15 DIFFERENTIAL Collection Time: 04/10/15 9:53 PM Result Value Ref Range NEUTROPHIL % 54.3 % LYMPHOCYTE % 31.5 % MONOCYTE % 9.9 % EOSINOPHIL % 3.8 % BASOPHIL % 0.5 % NEUTROPHIL ABS 3.2 1.7 - 8.5 109/L LYMPHOCYTE ABS 1.9 0.9 - 3.6 109/L MONOCYTE ABS 0.6 0.3 - 1.0 109/L EOSINOPHIL ABS 0.2 0.0 - 0.6 109/L BASOPHIL ABS 0.0 0.0 - 0.3 109/L COMPR MET PANEL Collection Time: 04/10/15 9:53 PM Result Value Ref Range SODIUM 140 134 - 143 mEq/L POTASSIUM 4.0 3.4 - 5.1 mEq/L CHLORIDE 109 99 - 110 mEq/L CO2 19 19 - 29 mEq/L GLUCOSE 145 (H) 70 - 100 mg/dL BUN 20 5 - 24 mg/dL CREATININE 1.08 0.70 - 1.20 mg/dL GFR CALC >60 CALCIUM 8.8 8.4 - 10.5 mg/dL PROTEIN, TOTAL 6.5 6.0 - 8.0 g/dL ALBUMIN 4.0 3.5 - 5.0 gm/dL ALK PHOSPHATASE 71 40 - 150 IU/L ALT(SGPT) 22 6 - 40 IU/L AST(SGOT) 22 10 - 40 IU/L TOTAL BILIRUBIN 0.8 0.2 - 1.2 mg/dL ANION GAP 12 3 - 15 HEMOGRAM/DIFF Collection Time: 04/10/15 9:53 PM Result Value Ref Range WBC 5.9 3.4 - 10.7 109/L RBC 4.60 4.20 - 5.90 1012/L HGB 11.3 (L) 13.0 - 17.0 g/dL HCT 35.6 (L) 37.5 - 51.0 % MCV 77.2 (L) 82.0 - 99.0 fL MCH 24.6 (L) 27.0 - 34.0 pg MCHC 31.9 (L) 32.0 - 35.7 g/dL RDW 18.2 (H) 11.0 - 15.0 % PLT 224 150 - 400 109/L Imaging Results: Imaging Results XR FINGER OR FINGERS LEFT 2 OR MORE VIEWS (In process) XR SHOULDER LEFT 2 OR MORE VIEWS (In process) XR FINGER OR FINGERS LEFT 2 OR MORE VIEWS (In process) CT HEAD WO CONTRAST (In process) CT head normal per [facility] Shoulder normal Left thumb dislocated IP joint Repeat thumb after reduction shows no fracture, no dislocation Emergency Department Course: Procedures: Orthopedic injury treatment Date/Time: 04/10/2015 10:47 PM Performed by: MAEGAN URRUTIA Authorized by: MAEGAN URRUTIA Consent: Verbal consent obtained. Risks and benefits: risks, benefits and alternatives were discussed Consent given by: patient Patient identity confirmed: correct patient Time out: Immediately prior to procedure a time out was called to verify the correct patient, procedure, equipment, arch support technician and site/side marked as required. Injury location: finger Location details: left thumb Injury type: dislocation Dislocation type: MCP Pre-procedure neurovascular assessment: neurovascularly intact Pre-procedure distal perfusion: normal Pre-procedure neurological function: normal Pre-procedure range of motion: reduced Local anesthesia used: yes Anesthesia: local infiltration Local anesthetic: lidocaine 1% without epinephrine and NaHCO3 (sodium bicarbonate) Anesthetic total: 8 ml Patient sedated: no Manipulation performed: yes Reduction successful: yes X-ray confirmed reduction: yes Immobilization: splint Splint type: thumb spica Post-procedure neurovascular assessment: post-procedure neurovascularly intact Post-procedure distal perfusion: normal Post-procedure neurological function: normal Post-procedure range of motion: improved Patient tolerance: Patient tolerated the procedure well with no immediate complications patient ambulated in the emergency department. He denied any new pains. He has a history of chronicleft hip pain that is unchanged. Assessment: 79-year-old male with left hand injury. He dislocated the left thumb after a [...] with swelling or pain Head injury information [place] 1 every 6 hrs if pain no alcohol or driving while on this medication, due to risk of sleepiness and sedation. Call and see orthopedics about your thumb 5-7 days Return if worsening pain, confusion, lethargy, vomiting Discharge Prescriptions None [facility] Maegan Urrutia MD 04/10/15 [id number] Soraya Lynch RN - 04/10/2015 10:38 PM CDT Returned from radiology. Soraya Lynch RN - 04/10/2015 10:30 PM CDT To radiology for shoulder xray Soraya Lynch RN - 04/10/2015 10:28 PM CDT Thumb dislocation reduced by . Pt denies further pain. Soraya Lynch RN - 04/10/2015 10:20 PM CDT in room to provide local anesthetic in preparation for reducing thumb dislocation. Soraya Lynch RN - 04/10/2015 10:08 PM CDT Pt returned from radiology. No change in condition. Soraya Lynch RN - 04/10/2015 9:52 PM CDT To radiology for CT. Soraya Lynch RN - 04/10/2015 9:50 PM CDT Pt aware of NPO status. Soraya Lynch RN - 04/10/2015 9:45 PM CDT Pt presents to ER for evaluation of thumb injury and fall. Pt states I forgot to turn on the lights, and tripped on some stairs. Pt reports falling down 3 stairs, hit his head on a wall. Obvious injury to left thumb. Denies LOC. Soraya Lynch RN - 04/10/2015 9:42 PM CDT Lab in room. documented in this encounter Plan of Treatment Not on filedocumented as of this encounter Goals Goal Patient Goal Associated Recent Patient-Stated? 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 Note: Formatting of this [...] encounter Procedures Procedure Name Priority Date/Time Associated Comments Diagnosis ORTHOPEDIC INJURY 04/10/2015 11:32 Dislocation of left Results for this TREATMENT PM CDT thumb, initial procedure are in encounter the results section. XR FINGER OR FINGERS STAT 04/10/2015 10:50 [facility] (closed head Results for this LEFT 2 OR MORE VIEWS PM CDT injury), initial pro cedure are in encounter the results section. XR SHOULDER LEFT 2 OR STAT 04/10/2015 10:37 [facility] (closed hea d Results for this MORE VIEWS PM CDT injury), initial procedure a re in encounter the results section. XR FINGER OR FINGERS STAT 04/10/2015 10:07 [facility] (closed head Results for this LEFT 2 OR MORE VIEWS PM CDT injury), initial pro cedure are in encounter the results section. CT HEAD WO IV CONTRAST STAT 04/10/2015 10:04 [facility] (closed he ad Results for this PM CDT injury), initial procedure a re in encounter the results section. BLOOD BANK DRAW & HOLD STAT 04/10/2015 9:54 PM [facility] (closed head Results for this CDT injury), initial procedure a re in encounter the results section. DIFFERENTIAL 04/10/2015 9:53 PM Results f or this CDT procedure are i n the results section. COMPREHENSIVE STAT 04/10/2015 9:53 PM Results for this METABOLIC PANEL CDT procedure ar e in the results section. HEMOGRAM/DIFF STAT 04/10/2015 9:53 PM Results for this CDT procedure are i n the results section. OXYGEN THERAPY STAT 04/10/2015 9:38 PM CDT documented in this encounter Results ORTHOPEDIC INJURY TREATMENT (04/10/2015 11:32 PM CDT) Narrative Maegan Urrutia MD - 04/10/2015 11 :32 PM CDT Maegan Urrutia MD ? 04/10/2015 11:32 PM Patient: Simon Castillo Chief Complaint: Fall; Finger Injury; and Head Injury Wit hout Loc History of Present Illness: HPI Comments: 79-year-old male presents with a fall. ??Patient states he was standing near the top of a step. ??He couldn't see in the dark. ??He miss stepped and fell down several steps. ??He struck his left hand on the drywall and may have hit his head on the drywall. ??There was no LOC he denie s new vision hearing or speech problems. ?? He denies headache o r neck pain. ?? He complains of left thumb pain and disloca tion. ?? He denies any other extremity pain. ?? He has no chest pain or breathing problems. ?? He denies new back pain. ?? He has no abdominal pain. ?? . ?? Review of Systems: Review of Systems Constitutional: Negative. ?? HENT: Negative. ?? Eyes: Negative. ?? Respiratory: Negative. ?? Cardiovascular: Negative. ?? Gastrointestinal: Negative. ?? Genitourinary: Negative. ?? Musculoskeletal: Negative. ?? Neurological: Negative. ?? Hematological: Negative. ?? Allergies Allergen Reactions ? ? Penicillins ?? Prior to Admission Medication List ?? Last Medication Reconciliation Action: ??Completed by Nurse Yumi Abdullahi RN 04/10/2015 ??9:36 PM ?ASPIRIN LOW DOSE 81 MG tablet ??81 mg 1 tablet, ORAL, DAILY, 08/05/09 14:22:55 ??Ascorbic Acid (VITAMIN C) 500 MG Cap ??Chew and swallow one tablet by mouth one time daily ??DULoxetine (CYMBALTA) 60 MG delayed r elease capsule ??TAKE ONE CAPSULE BY MOUTH ONE TIME DA EMILY DO NOT CRUSH ?FLUoxetine (PROZAC) 20 MG capsule ??Take 1 Cap by mouth one time a day. ??Hydrocodone-Acetaminophen (VICODIN) 5 -300 MG Tab ??Take ??by mouth. 1 po at night as nee ded for pain. ??Multiple Vitamin (MULTIVITAMIN) table t ??Take 1 Tab by mouth one time a day. ??amLODIPine (NORVASC) 5 MG tablet ??TAKE ONE TABLET BY MOUTH ONE TIME KEVIN LY ?atenolol (TENORMIN) 25 MG tablet ??Take 1 Tab by mouth one time a day. ??atorvaSTATin (LIPITOR) 40 MG tablet ??Take 1 Tab by mouth at bedtime. ??celecoxib (CELEBREX) 200 MG capsule ??Take 1 Cap by mouth one time a day. I ndications: Back Pain ??clopidogrel (PLAVIX) 75 MG tablet ??TAKE ONE TABLET BY MOUTH ONE TIME KEVIN LY ?finasteride (PROSCAR) 5 MG tablet ??Take 1 Tab by mouth one time a day. D o not crush. ??gabapentin (NEURONTIN) 300 MG capsule ??Take 2 Caps by mouth three times a da y. ??pantoprazole (PROTONIX) 40 MG delayed -release tablet ??TAKE ONE TABLET BY MOUTH ONE TIME KEVIN LY DO NOT CRUSH ?polyethylene glycol 3350 (MIRALAX) po wder ??MIX 17 GRAMS (ONE CAPFUL) IN LIQUID A ND DRINK EVERY DAY FORCONSTIPATION. ??potassium chloride (KAYCIEL) 20 MEQ/1 5ML (10%) liquid ??Take 15 mL by mouth one time a day. T theo with food; do not take liquid full strength, must be diluted in 2-6 parts of fluid. ??potassium chloride CR (K-DUR, KLOR-CO N M) 20 MEQ tablet ??TAKE ONE TABLET BY MOUTH ONE TIME KEVIN LY ?pramipexole (MIRAPEX) 0.125 MG tablet ??Take 1 Tab by mouth every evening. ??sennosides-docusate sodium (SENOKOT-S ) 8.6-50 MG per tablet ??Take 2 Tabs by mouth one time a day. ??solifenacin (VESICARE) 10 MG tablet ??Take 1 Tab by mouth one time a day. ??tamsulosin (FLOMAX) 0.4 MG 24 hour ca psule ??Take one cap by mouth once daily, swa llow whole, do not crush or chew. ??traMADol (ULTRAM) 50 MG tablet ??TAKE ONE TABLET BY MOUTH NIGHTLY AT B EDTIME NEEDED ?? Ongoing Comment Jessica Chua RN ?2013 11:28 AM Person that helps with medications: Yes , Mary Ann How medications are managed: Mary Ann set s up every night. Medications are taken: By mouth Durable medical Supplier: ??Unknown Specific Med/pharmacy preferences: [facility] [place] Past Medical History: Past Medical History Diagnosis Date ? ? DM type 2 (diabetes mellitus, type 2) ([facility]) ? Hypertension ? 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 CAD (coronary artery disease) ?with history of SD and stent placemen t ? ? Hyperlipidemia ? Diverticulosis ? Colon polyp ?? Past Surgical History: Past Surgical History Procedure Laterality Date ? ? Colonoscopy ??05/02/2006 ??Junito Noel MD ? ? Coronary angioplasty with stent placement ? Back surgery ?L4 laminectomy, multiple level cervic al fusion ? ? Joint replacement Left ?left hip ? ? Shoulder surgery Right ?right rotator cuff ? ? Cataract removal ? Tonsillectomy and adenoidectomy ? Appendectomy ? Hemorrhoid surgery ? Spine surgery ??10/15/2013 ??Spinal Cord Stimulator ([employer]tr[employer]), Rachel Ramey at [facility] ? ? Cmplx cmg/void pressure study ??04/07/2014 ??Dr. Ruiz Family History: ?? No family history on file. Social History: He ??reports that he has never smoked. Donald becerril has never used smokeless tobacco. He reports that he does not dri nk alcohol. Exam: BP 127/75 mmHg Pulse 74 Temp(Src) 97 .3 ??F (36.3 ??C) (Oral) Resp 16 Ht 1.727 m (5' 8) Wt 95.255 kg (210 lb) BMI 31.94 kg/m2 SpO2 98% Physical Exam: Physical Exam Constitutional: He is oriented to person , place, and time. He appears well-developed and well-nourishe d. HENT: Head: Normocephalic and atraumatic. Right Ear: Tympanic membrane and externa l ear normal. Left Ear: Tympanic membrane and external ear normal. Nose: Nose normal. Mouth/Throat: Oropharynx is clear and mo ist. Eyes: Conjunctivae and EOM are normal. P upils are equal, round, and reactive to light. Neck: Normal range of motion and full pa ssive range of motion without pain. Neck supple. No spinous pr ocess tenderness and no muscular tenderness present. Cardiovascular: Normal rate, regular rhy thm, normal heart sounds and intact distal pulses. ?? Pulmonary/Chest: Effort normal and breat h sounds normal. Abdominal: Soft. Bowel sounds are normal . Musculoskeletal: He exhibits tenderness. He exhibits no edema. ? Hands: dilslocated MCP ??Left thumb. All other extremities non tender, full R OM, no deformities. Neurological: He is alert and oriented t o person, place, and time. He has normal strength and normal reflexes. No cranial nerve deficit or sensory deficit. GCS ey e subscore is 4. GCS verbal subscore is 5. GCS motor subscore is 6. Skin: Skin is warm and dry. No rash note d. No lacerations or bruises Psychiatric: He has a normal mood and af fect. His behavior is normal. Lab Results: Results for orders placed or performed d lashauning the hospital encounter of 04/10/15 DIFFERENTIAL Collection Time: 04/10/15 ??9:53 PM Result Value Ref Range NEUTROPHIL % 54.3 % LYMPHOCYTE % 31.5 % MONOCYTE % 9.9 % EOSINOPHIL % 3.8 % BASOPHIL % 0.5 % NEUTROPHIL ABS 3.2 1.7 - 8.5 109/L LYMPHOCYTE ABS 1.9 0.9 - 3.6 109/L MONOCYTE ABS 0.6 0.3 - 1.0 109/L EOSINOPHIL ABS 0.2 0.0 - 0.6 109/L BASOPHIL ABS 0.0 0.0 - 0.3 109/L COMPR MET PANEL Collection Time: 04/10/15 ??9:53 PM Result Value Ref Range SODIUM 140 134 - 143 mEq/L POTASSIUM 4.0 3.4 - 5.1 mEq/L CHLORIDE 109 99 - 110 mEq/L CO2 19 19 - 29 mEq/L GLUCOSE 145 (H) 70 - 100 mg/dL BUN 20 5 - 24 mg/dL CREATININE 1.08 0.70 - 1.20 mg/dL GFR CALC >60 ?? CALCIUM 8.8 8.4 - 10.5 mg/dL PROTEIN, TOTAL 6.5 6.0 - 8.0 g/dL ALBUMIN 4.0 3.5 - 5.0 gm/dL ALK PHOSPHATASE 71 40 - 150 IU/L ALT(SGPT) 22 6 - 40 IU/L AST(SGOT) 22 10 - 40 IU/L TOTAL BILIRUBIN 0.8 0.2 - 1.2 mg/dL ANION GAP 12 3 - 15 HEMOGRAM/DIFF Collection Time: 04/10/15 ??9:53 PM Result Value Ref Range WBC 5.9 3.4 - 10.7 109/L RBC 4.60 4.20 - 5.90 1012/L HGB 11.3 (L) 13.0 - 17.0 g/dL HCT 35.6 (L) 37.5 - 51.0 % MCV 77.2 (L) 82.0 - 99.0 fL MCH 24.6 (L) 27.0 - 34.0 pg MCHC 31.9 (L) 32.0 - 35.7 g/dL RDW 18.2 (H) 11.0 - 15.0 % PLT 224 150 - 400 109/L Imaging Results: Imaging Results ? XR FINGER OR FINGERS LEFT 2 OR MORE VIE WS (In process) ? XR SHOULDER LEFT 2 OR MORE VIEWS (In pr ocess) ? XR FINGER OR FINGERS LEFT 2 OR MORE VIE WS (In process) ? CT HEAD WO CONTRAST (In process) ?? CT head normal per [facility] Shoulder normal Left thumb dislocated IP joint Repeat thumb after reduction shows no fr acture, no dislocation Emergency Department Course: Procedures: Orthopedic injury treatment Date/Time: 04/10/2015 10:47 PM Performed by: MAEGAN URRUTIA Authorized by: MAEGAN URRUTIA Consent: Verbal consent obtained. Risks and benefits: risks, benefits and alternatives were discussed Consent given by: patient Patient identity confirmed: correct carlos a ent Time out: Immediately prior to procedure a time out was called to verify the correct patient, procedure , equipment, arch support technician and site/side marked as required. Injury location: finger Location details: left thumb Injury type: dislocation Dislocation type: MCP Pre-procedure neurovascular assessment: neurovascularly intact Pre-procedure distal perfusion: normal Pre-procedure neurological function: nor mal Pre-procedure range of motion: reduced Local anesthesia used: yes Anesthesia: local infiltration Local anesthetic: lidocaine 1% without e pinephrine and NaHCO3 (sodium bicarbonate) Anesthetic total: 8 ml Patient sedated: no Manipulation performed: yes Reduction successful: yes X-ray confirmed reduction: yes Immobilization: splint Splint type: thumb spica Post-procedure neurovascular assessment: post-procedure neurovascularly intact Post-procedure distal perfusion: normal Post-procedure neurological function: no rmal Post-procedure range of motion: improved Patient tolerance: Patient tolerated the procedure well with no immediate complications patient ambulated in the emergency depa rtment. ??He denied any new pains. ??He has a history of chronic left hip pain that is unchanged. ?? Assessment: 79-year-old male with left h and injury. ??He dislocated the left thumb after a fall d own some stairs. ??There were no witnesses, but there was suspici on he may have hit his head. ??He is on antiplatelet drugs or C AT scan was ordered along with a head injury protocol. ??Laborator y testing is noted above his CAT scan was unremarkable. ??His dis located thumb was reduced after digital block. ??He had good capil arti refill circulation and function after the reduction. ??He w as placed in thumb spica splint Fall Head injury with normal neuro exam. ?? Dislocated thumb reduced Tenderness left shoulder possible bruise and contusion Plan: Wear splint Elevate extremity when able Cool compresses, over cloth, 4-6 times a day for 30 minutes per time. ??It helps with swelling or pain Head injury information [place] 1 every 6 hrs if pain ??no alcohol or driving while on this medication, due to risk of sleepiness an d sedation. Call and see orthopedics about your thum b ??5-7 days Return if worsening pain, confusion, let hargy, vomiting Discharge Prescriptions ?? None [facility] Maegan Urrutia MD NW PROCEDURE ORDERABLES XR FINGER OR FINGERS LEFT 2 OR MORE VIEWS (04/10/2015 10:50 PM CDT) Anatomical Region Laterality Modality Hand Radiographic Imaging Specimen (Source) Anatomical Collection Method Collection Time Re ceived Time Location / / Volume Laterality 04/10/2015 10:50 PM CDT Narrative 04/11/2015 8:36 AM CDT This document is currently in Final Status Exam XR FINGER OR FINGERS LEFT 2 OR MORE VIEW S HISTORY: thumb; Relocation at the 1st MCP joint. Mild am ount of ascitic debris about the 1st metacarpal head. Degenerative changes 1st CMC joint. Signed: Randy Toscano MD 04/11/2015 8 :36 AM Procedure Note Randy Toscano MD - 04/11/2015Format ting of this note might be different from the original. This document is currently in Final Stat us Exam XR FINGER OR FINGERS LEFT 2 OR MORE VIEW S HISTORY: thumb; Relocation at the 1st MCP joint. Mild am ount of ascitic debris about the 1st metacarpal head. Degenerative changes 1st CMC joint. Signed: Randy Toscano MD 04/11/2015 8 :36 AM Maegan Urrutia MD EC DIAGNOSTIC IMAGING ORDERA BLES XR SHOULDER LEFT 2 OR MORE VIEWS (04/10/2015 10:37 PM CDT) Anatomical Region Laterality Modality Shoulder Radiographic Imaging Specimen (Source) Anatomical Collection Method Collection Time Re ceived Time Location / / Volume Laterality 04/10/2015 10:37 PM CDT Narrative 04/11/2015 8:36 AM CDT This document is currently in Final Status Exam XR SHOULDER LEFT 2 OR MORE VIEWS HISTORY: Trauma FINDINGS: No acute fracture or dislocation is iden tified. ??Bony architecture and joint spaces are preserved. ??There is mild osteophyte formation at the AC joint and inferiorly at the glenohumeral joint. Posteri or fusion changes with christal and pedicle s crew fusion can be seen lower cervical spine. Left u pper chest is clear. Soft tissues are unremarkable. 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 No acute left shoulder abnormality identified. Signed: Alejandro Seals MD 04/11/2015 8:36 AM Procedure Note Alejandro Seals MD - 04/11/2015 This document is currently in Final Stat us Exam XR SHOULDER LEFT 2 OR MORE VIEWS HISTORY: Trauma FINDINGS: No acute fracture or dislocation is iden tified. Bony architecture and joint spaces are preserved. There is mild osteophyte formation at the AC joint and inferiorly at the glenohumeral joint. Posterior fusion changes with christal and pedicle screw fusion can be seen lower cervical spine. Left u pper chest is clear. Soft tissues are unremarkable. 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 No acute left shoulder abnormality identified. Signed: Alejandro Seals MD 04/11/2015 8:36 AM Maegan Urrutia MD EC DIAGNOSTIC IMAGING ORDERA BLES XR FINGER OR FINGERS LEFT 2 OR MORE VIEWS (04/10/2015 10:07 PM CDT) Anatomical Region Laterality Modality Hand Radiographic Imaging Specimen (Source) Anatomical Collection Method Collection Time Re ceived Time Location / / Volume Laterality 04/10/2015 10:07 PM CDT Narrative 04/11/2015 8:33 AM CDT This document is currently in Final Status Exam XR FINGER OR FINGERS LEFT 2 OR MORE VIEW S HISTORY: injury; left thumb FINDINGS: There is posterior dislocation at the left 1st MCP joint. Degenerative changes are seen at the DIP joint and CMC joint. No other acute fracture can be seen. Soft tissue swelling is noted. IMPRESSION: Posterior dislocation MCP sabrina int left thumb. Signed: Alejandro Seals MD 04/11/2015 8:33 AM Procedure Note Alejandro Seals MD - 04/11/2015 This document is currently in Final Stat us Exam XR FINGER OR FINGERS LEFT 2 OR MORE VIEW S HISTORY: injury; left thumb FINDINGS: There is posterior dislocation at the left 1st MCP joint. Degenerative changes are seen at the DIP joint and CMC joint. No other acute fracture can be seen. Soft tissue swelling is noted. IMPRESSION: Posterior dislocation MCP sabrina int left thumb. Signed: Alejandro Seals MD 04/11/2015 8:33 AM Bahman Floyd MD EC DIAGNOSTIC IMAGING ORDERA BLES CT HEAD WO CONTRAST (04/10/2015 10:04 PM CDT) Anatomical Region Laterality Modality Head Computed Tomography Specimen (Source) Anatomical Collection Method Collection Time Re ceived Time Location / / Volume Laterality 04/10/2015 10:04 PM CDT Narrative 04/11/2015 8:09 AM CDT This document is currently in Final Status Exam CT HEAD WO CONTRAST HISTORY: ??trauma; TECHNIQUE: Spiral noncontrasted CT scan of the brain was obtained along with high-resolution bone window reconstructions. Preliminary report was given at the time the exam by [facility]. COMPARISON: 06/23/2012, 10/31/2007 FINDINGS: No acute intracranial hemorrhage or infa rct is identified. There is no mass lesion, mass effect, midline shift, or ventricular abnormality. There are mild vague low-attenuation changes deep periventricular white matter bilaterally suggesting chronic microvascular ischemic disease. 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 This does not appear acute. No abnormal extra-axial fluid collections are seen. Visualized paranasal sinuses and mastoid a ir cells are clear. Bone windows show no evidence for skull fracture. Calvarial lucency ri ght frontoparietal region is stable back to 2007 and felt to be benign. IMPRESSION: No acute intracranial abnormality identi fied. Mild chronic microvascular ischemic changes are noted. Negative for skull fracture. Signed: Alejandro Seals MD 04/11/2015 8:09 AM Procedure Note Alejandro Seals MD - 04/11/2015 This document is currently in Final Stat us Exam CT HEAD WO CONTRAST HISTORY: trauma; TECHNIQUE: Spiral noncontrasted CT scan of the brain was obtained along with high-resolution bone window reconstructions. Preliminary report was given at the time the exam by [facility]. COMPARISON: 06/23/2012, 10/31/2007 FINDINGS: No acute intracranial hemorrhage or infa rct is identified. There is no mass lesion, mass effect, midline shift, or ventricular abnormality. There are mild vague low-attenuation changes deep periventricular white matter bilaterally suggesting chronic microvascular ischemic disease. 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 This does not appear acute. No abnormal extra-axial fluid collections are seen. Visualized paranasal sinuses and mastoid air cells are clear. Bone windows show no evidence for skull fracture. Calvarial lucency ri ght frontoparietal region is stable back to 2007 and felt to be benign. IMPRESSION: No acute intracranial abnormality identi fied. Mild chronic microvascular ischemic changes are noted. Negative for skull fracture. Signed: Alejandro Seals MD 04/11/2015 8:09 AM Bahman Floyd MD EC CT ORDERABLES BLOOD BANK DRAW & HOLD (04/10/2015 9:54 PM CDT) athologist Signature BB DRAW ONLY COMM 04/11/2015 [facility] 9:40 AM CDT LABORATORY Comment: Drawn Specimen Anatomical Collection Method Collection Time Receive d Time (Source) Location / / Volume Laterality 04/10/2015 9:54 PM 5 CDT 10:01 PM CDT Bahman Floyd MD EC BLOOD BANK ORDERABLES Performing Organization Address City/State/ZIP Code Phon e Number [place] [id number] [place] [address] LABORATORY [facility] LABORATORY DIFFERENTIAL (04/10/2015 9:53 PM CDT) athologist Signature NEUTROPHIL % 54.3 % 04/10/2015 [facility] 10:05 PM CDT LABORATORY LYMPHOCYTE % 31.5 % 04/10/2015 [facility] 10:05 PM CDT LABORATORY MONOCYTE % 9.9 % 04/10/2015 [facility] 10:05 PM CDT LABORATORY EOSINOPHIL % 3.8 % 04/10/2015 [facility] 10:05 PM CDT LABORATORY BASOPHIL % 0.5 % 04/10/2015 [facility] 10:05 PM CDT LABORATORY NEUTROPHIL ABS 3.2 1.7 - 8.5 04/10/2015 [facility] 109/L 10:05 PM CDT LABORATORY LYMPHOCYTE ABS 1.9 0.9 - 3.6 04/10/2015 [facility] 109/L 10:05 PM CDT LABORATORY MONOCYTE ABS 0.6 0.3 - 1.0 04/10/2015 [facility] 109/L 10:05 PM CDT LABORATORY EOSINOPHIL ABS 0.2 0.0 - 0.6 04/10/2015 [facility] 109/L 10:05 PM CDT LABORATORY BASOPHIL ABS 0.0 0.0 - 0.3 04/10/2015 [facility] 109/L 10:05 PM CDT LABORATORY Specimen Anatomical Collection Method Collection Time Receive d Time (Source) Location / / Volume Laterality 04/10/2015 9:53 PM 5 CDT 10:01 PM CDT Bahman Floyd MD EC LABORATORY Performing Organization Address City/State/ZIP Code Phon e Number [place] [address] LABORATORY [facility] LABORATORY (ABNORMAL) COMPR MET PANEL (04/10/2015 9:53 PM CDT) P athologist Signature SODIUM 140 134 - 143 04/10/2015 [facility] mEq/L 10:23 PM CDT LABORATORY POTASSIUM 4.0 3.4 - 5.1 04/10/2015 [facility] mEq/L 10:23 PM CDT LABORATORY Chloride 109 99 - 110 04/10/2015 [facility] mEq/L 10:23 PM CDT LABORATORY CO2 19 19 - 29 04/10/2015 [facility] mEq/L 10:23 PM CDT LABORATORY GLUCOSE 145 (H) 70 - 100 04/10/2015 [facility] mg/dL 10:23 PM CDT LABORATORY BUN 20 5 - 24 04/10/2015 [facility] mg/dL 10:23 PM CDT LABORATORY Creatinine 1.08 0.70 - 1.20 04/10/2015 [facility] mg/dL 10:23 PM CDT LABORATORY GFR CALC >60 04/10/2015 [facility] 10:23 PM CDT LABORATORY Comment: GFR Normal: >60 mL/min/1.73 m2 Calcium 8.8 8.4 - 10.5 mg/dL 04/10/2015 10:23 PM CDT [facility] LABORATORY Protein, Total 6.5 6.0 - 8.0 g/dL 04/10/2015 10:23 PM CDT [facility] LABORATORY Albumin 4.0 3.5 - 5.0 gm/dL 04/10/2015 10:23 PM CDT [facility] LABORATORY ALK PHOSPHATASE 71 40 - 150 IU/L 04/10/2015 10:23 PM CDT [facility] LABORATORY ALT(SGPT) 22 6 - 40 IU/L 04/10/2015 10:23 PM CDT [facility] LABORATORY AST(SGOT) 22 10 - 40 IU/L 04/10/2015 10:23 PM CDT [facility] LABORATORY TOTAL BILIRUBIN 0.8 0.2 - 1.2 mg/dL 04/10/2015 10:23 P M CDT [facility] LABORATORY ANION GAP 12 3 - 15 04/10/2015 10:23 PM CDT [facility] LABORATORY Specimen Anatomical Collection Method Collection Time Receive d Time (Source) Location / / Volume Laterality 04/10/2015 9:53 PM 5 CDT 10:01 PM CDT Bahman Floyd MD EC CHEMISTRY ORDERABLES Performing Organization Address City/State/ZIP Code Phon e Number [place] [address] LABORATORY [facility] LABORATORY (ABNORMAL) HEMOGRAM/DIFF (04/10/2015 9:53 PM CDT) P athologist Signature WBC 5.9 3.4 - 10.7 04/10/2015 [facility] 109/L 10:05 PM CDT LABORATORY RBC 4.60 4.20 - 5.90 04/10/2015 [facility] 1012/L 10:05 PM CDT LABORATORY HGB 11.3 (L) 13.0 - 17.0 04/10/2015 [facility] g/dL 10:05 PM CDT LABORATORY HCT 35.6 (L) 37.5 - 51.0 04/10/2015 [facility] % 10:05 PM CDT LABORATORY MCV 77.2 (L) 82.0 - 99.0 04/10/2015 [facility] fL 10:05 PM CDT LABORATORY MCH 24.6 (L) 27.0 - 34.0 04/10/2015 [facility] pg 10:05 PM CDT LABORATORY MCHC 31.9 (L) 32.0 - 35.7 04/10/2015 [facility] g/dL 10:05 PM CDT LABORATORY RDW 18.2 (H) 11.0 - 15.0 04/10/2015 [facility] % 10:05 PM CDT LABORATORY PLT 224 150 - 400 04/10/2015 [facility] 109/L 10:05 PM CDT LABORATORY Specimen Anatomical Collection Method Collection Time Receive d Time (Source) Location / / Volume Laterality 04/10/2015 9:53 PM 5 CDT 10:01 PM CDT Bahman Floyd MD EC HEMATOLOGY ORDERABLES Performing Organization Address City/State/ZIP Code Phon e Number [facility] [address] [address] LABORATORY [facility] LABORATORY documented in this encounter Visit Diagnoses Diagnosis CHI (closed head injury), initial encoun ter - Primary Contusion shoulder/arm, left, initial en counter Dislocation of left thumb, initial encou nter documented in this encounter Discontinued Medications Medication Sig Discontinue Reason Start Date End Date traMADol (ULTRAM) 50 MG TAKE ONE TABLET BY Alternate therapy 201404/10/2015 tablet MOUTH NIGHTLY AT BEDTIME NEEDED Hydrocodone-Acetaminophe Take by mouth. 1 po Alternate therapy 12/0604/10/2015 n (VICODIN) 5-300 MG Tab at night as needed for pain. documented as of this encounter Orders Respiratory Care Count Last Ordered Date First Ordered Date OXYGEN THERAPY 1 04/10/2015 Nursing Count Last Ordered Date First Ordered Date APPLICATION SHORT ARM SPLINT STATIC 1 04/10/2015 HEAD OF BED 1 04/10/2015 NEURO CHECKS 1 04/10/2015 NOTIFY PHYSICIAN (SPECIFY) 1 04/10/2015 NURSING COMMUNICATION 2 04/10/2015 NURSING SWALLOW ASSESSMENT 1 04/10/2015 VITAL SIGNS 1 04/10/2015 documented in this encounter Care Teams Bow Maker Production Relationship Specialty Start Date End Date Chioma PCP - General Family Medicine 06/04/11 01/03/17 Deirdre Mosher MD [address] [phone] Shanice Zarco MD Physician Other Ophthalmology 10/05/[address] [place] [address] Chuy Falcon, Physician Other Cardiology 07/16/14 3 [place], [place] [phone] Will Dubois MD Physician Other Dermatology 09/21/14 [facility] [address] [place] [phone] Yehuda Quintero MD Physician Other Pain Management 11/02/14 [facility] [address] [facility] 100 [place], [place] [phone] Agustín Ross MD Physician Other Orthopedic Surgery 11/02/14 [facility] [address] [address] Pippa Noel, RN RN High School Combination Teacher 02/11/15 11/10/15 Marshal Acosta Other Dental Casino Investigator 10/05/13 [address] [place], [place] [address] Dr Posey Other Audiology 10/05/13 [place], [place] documented as of this encounter
--- OUTSIDE RECORDS SUMMARY | 2022-06-07 20:55 | XMS_ITS | Encounter Summary ---
:1935 Author Organization [employer] Address [address] [address] Phone Care Team Providers Name Role Phone Deirdre Bedolla MD Primary Care Provider [phone] Shanice Zarco MD Unavailable Chuy Falcon MD Unavailable Will Dubois MD Unavailable Yehuda Quintero MD Unavailable Agustín Ross MD Unavailable Pippa Noel RN Unavailable Unavailable Reason for Visit Reason Onset Date Comments Refill Request 06/16/2015 Encounter Details Date Type Department Care Team Description 06/16/2015 Telephone [facility] Kary Leon, RN Refill Request FAMILY MEDICINE [address] [place], [place] [address] Social History Tobacco Use Types Packs/Day Years [...] Telephone Encounter - Kary Leon, RN - 06/16/2015 11:29 AM CST Prescription not at the pharmacy. Verbal order was given to the pharmacist. ROPOLOGY DEPARTMENT CHAIR Telephone Encounter - Kary Leon RN - 06/16/2015 11:21 AM CST ----- Message from Deirdre Lechuga sent at 06/16/2015 10:29 AM ANTHROPOLOGY DEPARTMENT CHAIR ----- Contact: AlyshaRose Cristobal Date: 06/16/2015 Time: 10:30 AM May we leave a message: not asked Patient's Date of : 1935 Person Calling: Dav[place] Phone Number: Home phone [phone] (home) Reason for call: Patient called and the pharmacy didn???t receive the ordered prescription for Tramadol. Please resend rx. Pharmacy: [facility] Allergies: -- Penicillins Thank you, Deirdre Lechuga Call Center Ext. [phone] ROPOLOGY DEPARTMENT CHAIR documented in this encounter Plan of Treatment Not on filedocumented as of this encounter Goals Goal Patient Goal Associated Recent Patient-Stated? 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 Note: Formatting of this [...] on filedocumented in this encounter Care Teams Maintenance Pipefitter Relationship Specialty Start Date End Date Chioma PCP - General Family Medicine 06/04/11 01/03/17 Deirdre Mosher MD [address] [address] Shanice Zarco MD Physician Other Ophthalmology 10/05/[address] [place] [address] Chuy Falcon, Physician Other Cardiology 07/16/14 [address] [place], [place] [address] Will Dubois MD Physician Other Dermatology 09/21/14 [facility] [address] [place] [phone] Yehuda Quintero MD Physician Other Pain Management 11/02/14 [facility] [address] [facility] 100 [place] [address] Agustín Ross MD Physician Other Orthopedic Surgery 11/02/14 [facility] [address] [place] [address] [place] [address] Pippa Noel, RN RN Shot Peening Operator 02/11/15 11/10/15 Marshal Acosta Other Dental Cafe Or Restaurant Manager 10/05/13 [address] [place], [place] [phone] Dr Posey Other Audiology 10/05/13 [place], [place] documented as of this encounter
--- OUTSIDE RECORDS SUMMARY | 2022-06-07 20:55 | XMS_ITS | Encounter Summary ---
:1935 Author Organization [employer] Address [address] [address] Phone Care Team Providers Name Role Phone Deirdre Bedolla MD Primary Care Provider [phone] Shanice Zarco MD Unavailable Chuy Falcon MD Unavailable Will Dubois MD Unavailable Yehuda Quintero MD Unavailable Agustín Ross MD Unavailable Pippa Noel RN Unavailable Unavailable Reason for Visit Reason Onset Date Comments Care Coordination Program 03/28/2015 Med question Encounter Details Date Type Department Care Team Description 03/28/2015 Telephone [facility] Pippa Noel, Care Coordination [facility] RN Program (Med question) [address] [place] [address] Social History Tobacco Use Types [...] encounter Miscellaneous Notes Telephone Encounter - Pippa Bai, RN - 03/28/2015 2:01 PM CDT RN received call from pt's , Mary Ann who stated that pt got a letter in the mail from [email or web address] where he gets Rx assistance for Celebrex. 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 RN talked with Dr. Cristobal's nurse, Farhana, who stated she hasnot seen Rx yet but will let author or pt know when it is received. Pt is completely out of Celebrexand would like a month's Rx sent to [facility] to cover until Rx received from [email or web address]. RN called pharmacy and they do have Rx on file for Celebrex, pt will garbage pick up worker. documented in this encounter Plan of Treatment Not on filedocumented as of this encounter Goals Goal Patient Goal Associated Recent Patient-Stated? 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 Note: Formatting of this [...] Primary documented in this encounter Care Teams Decorator Lighting Fixtures Relationship Specialty Start Date End Date YESENIA Bedolla - General Family Medicine 06/04/11 01/03/17 Deirdre Mosher MD [address] [phone] Shanice Zarco MD Physician Other Ophthalmology 10/05/[address] [place] [phone] Chuy Falcon, Physician Other Cardiology 07/16/14 [address] [place], [place] [phone] Will Dubois MD Physician Other Dermatology 09/21/14 [facility] [address] [place] [phone] Yehuda Quintero MD Physician Other Pain Management 11/02/14 [facility] 95[address] [facility] 100 [place], [place] [phone] Agustín Ross MD Physician Other Orthopedic Surgery 11/02/14 [facility] [address] [address] Pippa Noel, RN RN Film Reproducer 02/11/15 11/10/15 Marshal Acosta Other Dental Rehabilitation Coordinator 10/05/[address] [place] [phone] Posey Other Audiology 10/05/13 [place], [place] documented as of this encounter
--- OUTSIDE RECORDS SUMMARY | 2022-06-07 20:55 | XMS_ITS | Encounter Summary ---
:1935 Author Organization [employer] Address [address] [address] Phone Care Team Providers Name Role Phone Rima Bedolla MD Primary Care Provider [phone] Shanice Zarco MD Unavailable Chuy Falcon MD Unavailable Will Dubois MD Unavailable Yehuda Quintero MD Unavailable Agustín Ross MD Unavailable Pippa Noel RN Unavailable Unavailable Reason for Visit Reason Comments Refill Request [facility] Encounter Details Date Type Department Care Team Description 02/17/2015 Refill [facility] Riaz Bedolla efpacheco Request FAMILY MEDICINE Rima Mosher MD ([facility]) 2023 [facility] [address] [address] [place], [place] [phone] (Wo rk) Social History Tobacco Use Types [...] Tab 3 tablet MOUTH ONE TIME DAILY documented in this encounter Miscellaneous Notes Telephone Encounter - Nighat Vincent RN - 02/18/2015 2:59 PM CDT The refill request is Ok to authorize per the [facility] Medication Refill Protocol. Telephone Encounter - Utility, Refill Wizard - 02/17/2015 3:00 PM CDT amLODIPine (NORVASC) 5 MG tablet [Pharmacy Med Name: AmLODIPine Besylate Oral Tablet 5 MG] - REFILL: 12 months - PROTOCOL: Cardiovascular: Calcium Channel Blockers - RATIONALE: This refill should last until the patient is due for an office visit check, DBP check and SBP check. - LAST QUALIFYING VISIT WITH RIMA BEDOLLA K: 12/15/2014 - NEXT SCHEDULED VISIT: None - MEDICATION STARTED: 03/11/2013 - LAST REFILLED ON: 06/21/2014, QTY: 90, Refills: 2, Sig: take one tablet by mouth one time daily (unchanged) - LAST FILL DATE FROM PHARMACY: 12/11/2014 - SBP: 130.0mm Hg on 12/15/2014 - DBP: 74.0mm Hg on 12/15/2014 Powered by [facility], Reference: [id number], 02/17/2015 3:00:36 PM CDT, Pool: KLEVER ([id number]) documented in this encounter Plan of Treatment Not on filedocumented as of this encounter Goals Goal Patient Goal Associated Recent Patient-Stated? 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 Note: Formatting of [...] Sig Discontinue Reason Start Date End Date amLODIPine (NORVASC) 5 TAKE ONE TABLET BY 06/21/2014 02/17/2015 MG tablet MOUTH ONE TIME DAILY documented as of this encounter Care Teams Auto Driver Relationship Specialty Start Date End Date Chioma, PCP - General Family Medicine 06/04/11 01/03/17 Rima Mosher MD [address] [id number] Shanice Zarco MD Physician Other Ophthalmology 10/05/[address] [place] [address] Chuy Falcon, Physician Other Cardiology 07/16/14 [address] [place], [place] [address] Will Dubois MD Physician Other Dermatology 09/21/14 [facility] [address] [place] [address] Yehuda Quintero MD Physician Other Pain Management 11/02/14 [facility] [address] [place] [address] Agustín Ross MD Physician Other Orthopedic Surgery 11/02/14 [facility] [address] [facility] 201 [place] [address] Pippa Noel, RN RN Straddle Bug 02/11/15 11/10/15 Marshal Acosta Other Dental Mix Technician 10/05/[address] [place] [phone] Posey Other Audiology 10/05/13 [place], [place] documented as of this encounter
--- OUTSIDE RECORDS SUMMARY | 2022-06-07 20:55 | XMS_ITS | Encounter Summary ---
:1935 Author Organization [employer] Address [address] [address] Phone Care Team Providers Name Role Phone Deirdre Bdeolla MD Primary Care Provider [phone] Shanice Zarco MD Unavailable Chuy Falcon MD Unavailable Will Dubois MD Unavailable Yehuda Quintero MD Unavailable Agustín Ross MD Unavailable Pippa Noel RN Unavailable Unavailable Reason for Visit Reason Comments Refill Request celecoxib (CELEBREX) Encounter Details Date Type Department Care Team Description 05/06/2015 Refill [facility] Riaz Bedolla efill Request FAMILY MEDICINE Deirdre Mosher MD (celecoxib (CELEBREX)) 2023 [facility] [address] [address] [place], [place] [address] (Wo rk) Social History Tobacco Use Types [...] Start Date End Date celecoxib (CELEBREX) 200 TAKE ONE CAPSULE BY 30 Cap 11 02/20/2016 MG capsule MOUTH ONE TIME DAILY documented in this encounter Miscellaneous Notes Telephone Encounter - Peri Phillips Wizamarylu - 05/06/2015 9:38 AM CDT celecoxib (CELEBREX) 200 MG capsule [Pharmacy Med Name: Celecoxib Oral Capsule 200 MG] - REFILL: 12 months - PROTOCOL: Analgesics: COX2 Inhibitors - RATIONALE: This refill should last until the patient is due for a(n) Cr check. - LAST QUALIFYING VISIT WITH DEIRDRE BEDOLLA K: 04/27/2015 - NEXT SCHEDULED VISIT: None - MEDICATION STARTED: 01/13/2014 - LAST REFILLED ON: 04/13/2014, QTY: 90, Refills: 3, Sig: take 1 cap by mouth one time a day. indications: back pain (changed but equivalent) - LAST FILL DATE FROM PHARMACY: 03/28/2015 - Cr: 1.08mg/dL on 04/10/2015 Powered by [employer], Reference: [id number], 05/06/2015 9:38:43 AM JAYLEN Pool: KLEVER ([id number]) ER REPAIRER documented in this encounter Plan of Treatment Not on filedocumented as of this encounter Goals Goal Patient Goal Associated Recent Patient-Stated? 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 Note: Formatting of [...] Sig Discontinue Reason Start Date End Date celecoxib (CELEBREX) 200 Take 1 Cap by mouth 4 05/06/2015 MG capsuleIndications: one time a day. Back Pain Indications: Back Pain documented as of this encounter Care Teams Marketing Underwriter Relationship Specialty Start Date End Date Chioma PCP - General Family Medicine 06/04/11 01/03/17 Deirdre Mosher MD [address] [phone] Shanice Zarco MD Physician Other Ophthalmology 10/05/[address] [place] [address] Chuy Falcon, Physician Other Cardiology 07/16/14 [address] [place] [address] Will Dubois MD Physician Other Dermatology 09/21/14 [facility] [address] [place] [address] Yehuda Quintero MD Physician Other Pain Management 11/02/14 [facility] 9550 [facility] 100 [place] [address] Agustín Ross MD Physician Other Orthopedic Surgery 11/02/14 [facility] [address] [facility] 201 [place] [address] Pippa Noel RN RN Wood Getter 02/11/15 11/10/15 Marshal Acosta Other Dental Footwear Sales Leader 10/05/[address] [place] [address] Posey Other Audiology 10/05/13 [place], [place] documented as of this encounter
--- OUTSIDE RECORDS SUMMARY | 2022-06-07 20:55 | XMS_ITS | Encounter Summary ---
:1935 Author Organization [employer] Address [address] [address] Phone Care Team Providers Name Role Phone Deirdre Bedolla MD Primary Care Provider [phone] Shanice Zarco MD Unavailable Chuy Falcon MD Unavailable Will Dubois MD Unavailable Yehuda Quintero MD Unavailable Agustín Ross MD Unavailable Pippa Noel RN Unavailable Unavailable Reason for Visit Reason Comments Diabetes micro Blood Pressure Encounter Details Date Type Department Care Team Description 04/27/2015 Office Visit [facility] Kelechi Bedolla low back pain without sciatica (Primary Dx); CLINIC FAMILY Deirdre Mosher MD Need for prophylactic vaccination and in oculation against influenza; MEDICINE [address] Essential hypertension; [address] [facility] [address] Diabetes; [place] [address] Anxiety [place], [place] [address] Social History Tobacco Use Types Packs/Day Years Used Date Smoking Tobacco: Never Smokeless Tobacco: Never Alcohol Use Standard Drinks/Week Comments No 0 (1 standard drink = 0.6 oz pure alcoho l) Sex Assigned at Date Recorded Not on file documented as of this encounter Last Filed Vital Signs Vital Sign Reading Time Taken Comments Blood Pressure 125/71 04/27/2015 2:27 PM CDT Pulse 62 04/27/2015 2:27 PM CDT Temperature - - Respiratory Rate - - Oxygen Saturation - - Inhaled Oxygen Concentration - - Weight 96.6 kg (213 lb) 04/27/2015 2:27 PM CDT Height 172.7 cm (5' 8) 04/27/2015 2:27 PM CDT Body Mass Index 32.39 04/27/2015 2:27 PM CDT documented in this encounter Functional Status Functional Status Response Date of Assessment Patient's Vision Adequate to Safely Complete Daily No 04/10/2015 Activities Patient's Memory Adequate to Safely Complete Daily No 11/17/2014 Activities Cognitive Status Response Date of Assessment Patient's Judgment Adequate to Safely Complete Daily No 04/10/2015 Activities documented as of this encounter Patient Instructions Patient InstructionsMaDeirdre Reinoso MD - 04/27/2015 3:24 PM CDT Increase Prozac to 30mg once daily. Take 20mg plus 10mg once daily. See me in 1 month. Stop Mirapex and start Ropinirole once daily. documented in this encounter Ordered Prescriptions Prescription Sig Dispensed Refills Start Date End Date rOPINIRole (REQUIP) 0.25 Take 1 Tab by mouth 30 Tab 1 06/08/2015 MG tablet three times a day. FLUoxetine (PROZAC) 10 MG Take one pill along 30 Cap 1 1 06/22/2015 capsule with 20mg to sierra 30mg. influenza vac split Inject 0.5 mL into 5 mL 0 04/27/20 15 04/27/2015 high-dose (FLUZONE) 0.5 the muscle one time ML Suspension Prefilled for 1 dose. SyringeIndications: Need for prophylactic vaccination and inoculation against influenza traMADol (ULTRAM) 50 MG Take 2 Tabs by mouth 60 Tab 0 06/08/2015 tablet at bedtime. TAKE ONE TABLET BY MOUTH NIGHTLY AT BEDTIME NEEDED documented in this encounter Progress Notes Deirdre Bedolla MD - 04/28/2015 10:02 AM CDT [facility] Patient Name: AAMIR CASTILLO Date of Service: 04/27/2015 : 1935 Age: 79Y Sex: M Site MRN: Patient Loc/Room #: [facility] / Provider: Deirdre Bedolla MD, Family Practice OFFICE NOTE SITE: [facility] SUBJECTIVE: Joe is a 79-year-old gentleman well known to me here today for his diabetic checkup. Blood sugars have been good, running generally in the 120s. Tolerates his medications well. Had gained a little weight, but despite that numbers have been okay. His main concern is that of chronic lower back pain. He has known infected spinal hardware, had an epidural abscess, diskitis, and osteomyelitis of the back. He is cautiously off antibiotics, but we have had really a lot of trouble controlling his pain. He currently is taking tramadol at night and hisstory is really hard to follow. I am not entirely sure it is helping, but I am not entirely sure it is not. He says he gets so much pain that he cannot stay in bed, has to get up, move all over, but then once he finally does sleep, sleeps all night and is pain free until about 5:00 in the morning. He has been intolerant of several medications as I will delineate below. Finally, he has anxiety. They just bought a home in [place] and will be moving and he is extremely tearful today, actually kind of sobbing. A lot of it is about switching health care as Joe has had just an extra ordinary health care journey in the last few years, but of course it is just a large time of transition as well. Finances are a big stressor. He spends hours sitting trying to figure out his finances. They want to sell the house to use that money for the new home. He does have some money available to him in a profit sharing plan but he would have to pay taxes so just really is not wanting to use that and his venkat is kind of ruminating about it and a little stuck there. PAST MEDICAL HISTORY: 1. Coronary artery disease. TX in 1989 with RCA stenting, then repeat TX June 2012 which was restenosis. He has bare-metal stents. Coded in the ambulance on the way to [place] when he had his abscess, diskitis, and osteomyelitis. 2. Type 2 diabetes. 3. 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 Was thoughtto need chronic antibiotics lifelong, but ID has now taken him off his antibiotics. Suffers with chronic pain. All narcotics have caused extremely bizarre behavior in Joe. Is currently on tramadol. Previously had not tolerated that but seems to be tolerating it okay. Cymbalta was not helpful. Is on gabapentin. Has a spinal cord stimulator. Has tried amitriptyline, nortriptyline, is on Celebrex, has done several courses of PT, has done injections, has seen pain clinics. 4. Reflux. 5. Hyperlipidemia. 6. Hypertension. 7. History of cervical neck fracture. 8. Benign prosthetic hypertrophy. 9. Erectile dysfunction. 10. History of hypokalemia. 11. Chronic hearing loss. SOCIAL HISTORY: Nonsmoker. Will be moving to [place]. His son lives there. REVIEW OF SYSTEMS: He has gained a little bit of weight. No chest pains or shortness of breath. OBJECTIVE: Height is 68, weight 213, blood pressure 125/71, pulse 62. Generally pleasant, nontoxic, no acute distress. HEENT - atraumatic, normocephalic. Conjunctivae are clear. Heart is regular rate and rhythm. Lungs are clear. Extremities - no edema. Psychiatric - well dressed, well groomed, alert, o riented. Judgment and insight fair. Affect full, but mood is still depressed. ASSESSMENT AND PLAN: 1. Chronic low back [...] discontinuing it as I certainly do notwant Joe on meds that are not helping him. [...] increase. 6. Flu shot was given today. Deirdre Bedolla MD [facility] cc: /GARRETT Job ID: [id number] /[facility] Document ID: [id number] documented in this encounter Miscellaneous Notes Clinical Note - Serenity Miranda LPN - 04/13/2015 11:38 AM CDT This chart was prepped for visit by Serenity Miranda LPN on 04/13/2015. documented in this encounter Plan of Treatment Not on filedocumented as of this encounter Goals Goal Patient Goal Associated Recent Patient-Stated? 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 Note: Formatting of this [...] Name Priority Date/Time Associated Diagnosis Comme nts HEMOGLOBIN A1C Routine 04/27/2015 3:50 PM Diabetes Results for this CDT procedure are i n the results section . documented in this encounter Results (ABNORMAL) A1C(HGB AIC) (04/27/2015 3:50 PM CDT) P athologist Signature A1C (HGB AIC) 6.6 (H) 4.0 - 6.0 04/27/2015 BRAINERD % 4:30 PM CDT [facility] Est Average 143 mg/dL 04/27/2015 [facility]INERD Glucose 4:30 PM CDT [facility] Comment: According to ADA guidelines, the estimat ed average glucose (eAG) will be calculated for all HgbA1c results. Specimen Anatomical Collection Method Collection Time Receive d Time (Source) Location / / Volume Laterality 04/27/2015 3:50 PM 5 4:11 CDT PM CDT Deirdre Bedolla MD EC CHEMISTRY ORDERABLES A BN Performing Organization Address City/State/ZIP Code Phon e Number [facility] [address] [address] LABORATORY [facility] 2023 [place] [address] LABORATORY documented in this encounter Visit Diagnoses Diagnosis Bilateral low back pain without sciatica - Primary Need for prophylactic vaccination and in oculation against influenza Essential hypertension Unspecified essential hypertension Diabetes Type II or unspecified type diabetes cindy litus without mention of complication, not stated as uncontrolled Anxiety Anxiety state, unspecified documented in this encounter Discontinued Medications Medication Sig Discontinue Reason Start Date End Date DULoxetine (CYMBALTA) TAKE ONE CAPSULE BY Course of treatment 07/0704/27/2015 60 MG delayed release MOUTH ONE TIME DAILY completed capsule DO NOT CRUSH traMADol (ULTRAM) 50 TAKE ONE TABLET BY 04/11/2015 1 MG tablet MOUTH NIGHTLY AT BEDTIME NEEDED HYDROcodone-acetamino Take 1 Tab by mouth Course of treatment 04/1004/27/2015 phen (NORCO) 5-325 MG every six hours as completed oral tablet needed for Pain. Limit acetaminophen to 4000 mg per day from all sources. pramipexole (MIRAPEX) Take 1 Tab by mouth Changed to an 10/20/2014 04/27/2015 0.125 MG tablet every evening. alternate therapy documented as of this encounter Orders Immunization/Injection Count Last Ordered Date First O rdered Date FLU VACCINE HIGH DOSE 65+ 1 04/27/2015 IMMUNIZATION ADMIN - INFLUENZA 1 04/27/2015 documented in this encounter Care Teams Sales Support Associate Relationship Specialty Start Date End Date Chioma, PCP - General Family Medicine 06/04/11 01/03/17 Deirdre Mosher MD [address] [phone] Shanice Zarco MD Physician Other Ophthalmology 10/05/[address] [place] [address] Chuy Falcon, Physician Other Cardiology 07/16/14 523 [place], [place] [address] Will Dubois MD Physician Other Dermatology 09/21/14 [facility] 1510 [address], [place] [address] Yehuda Quintero MD Physician Other Pain Management 11/02/14 [facility] 9550 [facility] 100 [place] [address] Agustín Ross MD Physician Other Orthopedic Surgery 11/02/14 [facility] [address] [place] [address] [place] [address] Pippa Noel, RN RN Implant Polisher 02/11/15 11/10/15 Marshal Acosta Other Dental Revenue Cycle Consultant 10/05/13 [address] [place], [place] [address] Dr Posey Other Audiology 10/05/13 [place], [place] documented as of this encounter
--- OUTSIDE RECORDS SUMMARY | 2022-06-07 20:55 | XMS_ITS | Encounter Summary ---
:1935 Author Organization [employer] Address [address] [address] Phone Care Team Providers Name Role Phone Deirdre Bedolla MD Primary Care Provider [phone] Shanice Zarco MD Unavailable Chuy Falcon MD Unavailable Will Dubois MD Unavailable Yehuda Quintero MD Unavailable Agustín Ross MD Unavailable Pippa Noel RN Unavailable Unavailable Encounter Details Date Type Department Care Team Description 03/08/2015 [facility], Pcp Reports 400 [place] [address] Social History Tobacco Use Types [...] 11/17/2014 Activities documented as of this encounter Plan of Treatment Not on filedocumented as of this encounter Goals Goal Patient Goal Associated Recent Patient-Stated? 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 Note: Formatting of this [...] Name Priority Date/Time Associated Diagnosis Comme nts EYE EXAM & TREATMENT Routine 01/03/2015 documented in this encounter Results EYE EXAM & TREATMENT (01/03/2015) Narrative This result has an attachment that is no t available. Pcp Elsewhere EC PROCEDURES documented in this encounter Visit Diagnoses Not on filedocumented in this encounter Care Teams Water Superintendent Relationship Specialty Start Date End Date Chioma PCP - General Family Medicine 06/04/11 01/03/17 Deirdre Mosher MD [address] [phone] Shanice Zarco MD Physician Other Ophthalmology 10/05/[address] [place] [phone] Chuy Falcon, Physician Other Cardiology 07/16/14 523 [place] [address] Will Dubois MD Physician Other Dermatology 09/21/14 [facility] [address] [place] [phone] Yehuda Quintero MD Physician Other Pain Management 11/02/14 [facility] 9550 [facility] 100 [place] [address] Agustín Ross MD Physician Other Orthopedic Surgery 11/02/14 [facility] [address] [facility] 201 [place] [address] Pippa Noel, RN RN Straight Pin Making Machine Operator 02/11/15 11/10/15 Marshal Acosta Other Dental Piano And Organ Refinisher 10/05/[address] [place] [phone] Posey Other Audiology 10/05/13 [place], [place] documented as of this encounter
--- OUTSIDE RECORDS SUMMARY | 2022-06-07 20:55 | XMS_ITS | Encounter Summary ---
:1935 Author Organization [employer] Address [address] [address] Phone Care Team Providers Name Role Phone Deirdre Bedolla MD Primary Care Provider [phone] Shanice Zarco MD Unavailable Chuy Falcon MD Unavailable Will Dubois MD Unavailable Yehuda Quintero MD Unavailable Agustín Ross MD Unavailable Alysia Claudio RN Unavailable Reason for Visit Reason Onset Date Comments Refill Request 02/01/2015 potassium chloride Encounter Details Date Type Department Care Team Description 02/01/2015 Refill [facility] Riaz Bedolla efill Request FAMILY MEDICINE Deirdre Mosher MD (potassium chloride ) [address] [facility] [address] [address] [place], [place] [phone] (Wo rk) Social History Tobacco Use Types [...] Sig Dispensed Refills Start Date End Date potassium chloride CR TAKE ONE TABLET BY 90 Tab 2 2014 (MARIA PARR) 20 MEQ MOUTH ONE TIME DAILY tablet documented in this encounter Miscellaneous Notes Telephone Encounter - Pippa Cagle RN - 02/02/2015 7:59 PM CDT The refill request is Ok to authorize per the [facility] Medication Refill Protocol. Telephone Encounter - Utility, Refill Wizard - 02/01/2015 7:57 PM CDT potassium chloride CR (MARIA PARR) 20 MEQ tablet [Pharmacy Med Name: Potassium Chloride [facility] Oral Tablet Extended Release 20 MEQ] - REFILL: 9 months - PROTOCOL: Endocrinology: Minerals - Potassium Supplementation - RATIONALE: This refill should last until the patient is due for a(n) K check. - LAST QUALIFYING VISIT WITH DEIRDRE BEDOLLA K: 12/15/2014 - NEXT SCHEDULED VISIT: None - MEDICATION STARTED: 10/17/2011 - LAST REFILLED ON: 01/20/2014, QTY: 90, Refills: 3, Sig: take one tablet by mouth one time daily (unchanged) - LAST FILL DATE FROM PHARMACY: 06/21/2014 - K: 5.1mEq/L on 09/22/2014 Powered by [employer], Reference: [id number], 02/01/2015 7:57:12 PM CDT, Pool: KLEVER ([id number]) documented in this encounter Plan of Treatment Not on filedocumented as of this encounter Goals Goal Patient Goal Associated Recent Patient-Stated? 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 Note: Formatting of [...] Sig Discontinue Reason Start Date End Date potassium chloride CR TAKE ONE TABLET BY 01/20/2014 02/01/2015 (K-DUR, NIDIA-CON M) 20 MOUTH ONE TIME DAILY MEQ tablet documented as of this encounter Care Teams Rate Setter Relationship Specialty Start Date End Date Chioma, PCP - General Family Medicine 06/04/11 01/03/17 Deirdre Mosher MD [address] [phone] Shanice Zarco MD Physician Other Ophthalmology 10/05/[address] [place] [phone] Chuy Falcon, Physician Other Cardiology 07/16/14 523 [place] [address] Will Dubois MD Physician Other Dermatology 09/21/14 [facility] [employer] [place] [phone] Yehuda Quintero MD Physician Other Pain Management 11/02/14 [facility] 9550 [facility] 100 [place], [place] [address] Agustín Ross MD Physician Other Orthopedic Surgery 11/02/14 [facility] [address] [place] [address] [place] [phone] Alysia Claudio, RN RN Control Clerk Subassembly 11/30/14 02/10/15 Marshal Acosta Other Dental Photo Equipment Technician 10/05/[address] [place] [address] [address] Posey Other Audiology 10/05/13 [place], [place] documented as of this encounter
--- OUTSIDE RECORDS SUMMARY | 2022-06-07 20:55 | XMS_ITS | Encounter Summary ---
:1935 Author Organization [facility] [employer] Address [address] [address] Phone Care Team Providers Name Role Phone Deirdre Bedolla MD Primary Care Provider [phone] Shanice Zarco MD Unavailable Chuy Falcon MD Unavailable Will Dubois MD Unavailable Yehuda Quintero MD Unavailable Agustín Ross MD Unavailable Pipap Noel RN Unavailable Unavailable Reason for Visit Reason Onset Date Comments Refill Request 04/07/2015 Message: Tramadol Encounter Details Date Type Department Care Team Description 04/07/2015 Refill [facility] NURSE Chioma, Ref ill Request CARE LINE Deirdre Mosher MD (Message: Tramadol) 400 [facility] T [address] [address] [place], [place] [phone] (Wo rk) Social History Tobacco Use Types [...] (ULTRAM) 50 MG TAKE ONE TABLET BY 90 Tab 0 11/201404/27/2015 tablet MOUTH NIGHTLY AT BEDTIME NEEDED documented in this encounter Miscellaneous Notes Telephone Encounter - Ana Maria Amaya RN - 04/09/2015 11:01 AM CDT Deirdre Bedolla MD- Notes below stated he should stop Tramadol and start Vicodin. SpouseMary Ann verifies he isn't using the Vicodin and the Tramadol seems to help without side effects. Pending to you for approval, thanks. Spouse also asks to schedule a 3 month med check appt for both herself and Simon. Appt made on 04/27/15 at 215p and 230pm for the both of them. Telephone Encounter - Mary Jane Domingo RN - 04/09/2015 1:47 AM CDT Please attempt to contact patient a second time regarding request. Telephone Encounter - Ines Carmichael RN - 04/07/2015 5:41 PM CDT Called patient regarding refill request for Tramadol. 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 We will try Vicodin at night. Stop tramadol. Notes also state Tramadol was not effective. Please clarify and process accordingly.Thank you. Deirdre Bedolla MD, Nurse Care Line is unable to refill this medication per the [facility] Medication Refill Protocol. Would you like to authorize this request? VIOLATION: Opioid Contract was not found within the last 5 years of the patient record. - PROTOCOL: Analgesics: Opioid Agonists - Tramadol (Controlled Substance) - LAST QUALIFYING VISIT WITH DEIRDRE BEDOLLA: 12/15/2014 - NEXT SCHEDULED VISIT: None - MEDICATION STARTED: 09/22/2014 - LAST REFILLED: Not available (Last set to Print on 02/21/2015 by DEIRDRE JONES Sig: TAKE ONE TABLET BY MOUTH NIGHTLY AT BEDTIME NEEDED (unchanged)) Telephone Encounter - Qumuloill rankdeskzamarylu - 04/07/2015 3:39 PM CDT traMADol (ULTRAM) 50 MG tablet - WARNING: The requested medication was previously set to Print on 02/21/2015 by DEIRDRE JONES - VIOLATION: Opioid Contract was not found within the last 5 years of the patient record. - PROTOCOL: Analgesics: Opioid Agonists - Tramadol (Controlled Substance) - LAST QUALIFYING VISIT WITH DEIRDRE BEDOLLA: 12/15/2014 - NEXT SCHEDULED VISIT: None - MEDICATION STARTED: 09/22/2014 - LAST REFILLED: Not available (Last set to Print on 02/21/2015 by DEIRDRE JONES Sig: TAKE ONE TABLET BY MOUTH NIGHTLY AT BEDTIME NEEDED (unchanged)) Powered by Options Away, Reference: [id number], 04/07/2015 3:39:25 PM CDT, Pool: KLEVER ([id number]) Telephone Encounter - Gisela Alexis - 04/07/2015 3:34 PM CDT ULTRAM ORAL TABLET 50MG Si TAB PO NIGHTLY AT BEDTIME NEEDED Qty: 30 Last Refill: NOT ON FAX Comments: REQUESTS 90 DAY SUPPLY documented in this encounter Plan of Treatment Not on filedocumented as of this encounter Goals Goal Patient Goal Associated Recent Patient-Stated? 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 Note: Formatting of this [...] on filedocumented in this encounter Care Teams Claims Specialist Relationship Specialty Start Date End Date Chioma PCP - General Family Medicine 06/04/11 01/03/17 Deirdre Mosher MD [address] [phone] Shanice Zarco MD Physician Other Ophthalmology 10/05/[address] [place] [address] Chuy Falcon, Physician Other Cardiology 07/16/14 [address] [place], [place] [address] Will Dubois MD Physician Other Dermatology 09/21/14 [facility] [place] [address] Yehuda Quintero MD Physician Other Pain Management 11/02/14 [facility] 9550 [facility] 100 [place], [place] [phone] Agustín Ross MD Physician Other Orthopedic Surgery 11/02/14 [facility] [address] [place] [phone] Pippa Noel, RN RN Block Breaker 02/11/15 11/10/15 Marshal Acosta Other Dental Zigzagger 10/05/[address] [place] [address] [address] Posey Other Audiology 10/05/13 [place], [place] documented as of this encounter
--- OUTSIDE RECORDS SUMMARY | 2022-06-07 20:55 | XMS_ITS | Encounter Summary ---
:1935 Author Organization [facility] [employer] Address [address] [address] Phone Care Team Providers Name Role Phone Rima Bedolla MD Primary Care Provider [phone] Shanice Zarco MD Unavailable Chuy Falcon MD Unavailable Will Dubois MD Unavailable Yehuda Quintero MD Unavailable Agustín Ross MD Unavailable Pippa Noel RN Unavailable Unavailable Reason for Visit Reason Onset Date Comments Refill Request 02/24/2015 FLUoxetine (PROZAC) Encounter Details Date Type Department Care Team Description 02/24/2015 Refill [facility] NURSE Chioma, Ref ill Request CARE LINE Rima Mosher MD (FLUoxetine (PROZAC)) [address] [facility] [address] [address] [place] [address] (Wo rk) Social History Tobacco Use Types [...] Take 1 Cap by mouth 90 Cap 2 0 02/25/2015 03/07/2015 capsule one time a day. documented in this encounter Miscellaneous Notes Addendum Note - Coleman Gutierrez RN - 02/25/2015 8:49 AM CDT Addended by: COLEMAN GUTIERREZ. on: 02/25/2015 08:49 AM Modules accepted: Medications Telephone Encounter - Coleman Gutierrez RN - 02/25/2015 8:48 AM CDT Rima Bedolla MD approved concurrent use of FLUoxetine (PROZAC) and traMADol (ULTRAM).Medication notes added to these orders. Telephone Encounter - Coleman Gutierrez RN - 02/24/2015 3:48 PM CDT Rima Bedolla MD, Nurse On Line is unable to refill FLUoxetine (PROZAC) due to a majordrug interaction with traMADol (ULTRAM). Refill request pended for your authorization. Telephone Encounter - Utility, Refill Wizard - 02/24/2015 12:04 PM CDT FLUoxetine (PROZAC) 20 MG capsule - REFILL: 10 months - PROTOCOL: Psychiatry: Antidepressants - RATIONALE: This refill should last until the patient is due for an office visit. - LAST QUALIFYING VISIT WITH RIMA BEDOLLA: 12/15/2014 - NEXT SCHEDULED VISIT: None - MEDICATION STARTED: 12/15/2014 - LAST REFILLED ON: 12/15/2014, QTY: 30, Refills: 1, Sig: take 1 cap by mouth one time a day. (unchanged) Powered by FAGUO, Reference: [id number], 02/24/2015 12:04:41 PM CDT, Pool: NCL ([id number]) Telephone Encounter - Gisela Ontiveros - 02/24/2015 12:03 PM CDT PROZAC CAP 20 MG Si CAP PO 1 X DAILY Quantity: SEE COMMENT Last Refill: 01-13-2015 Comments: PATIENT REQUESTING #90 DAY SUPPLY documented in this encounter Plan of Treatment Not on filedocumented as of this encounter Goals Goal Patient Goal Associated Recent Patient-Stated? 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 Note: Formatting of [...] 20 MG Take 1 Cap by mouth 12/16/19 15 02/24/2015 capsule one time a day. documented as of this encounter Care Teams Newspaper Inserter Relationship Specialty Start Date End Date Eugenia, PCP - General Family Medicine 06/04/11 01/03/17 Rima Mosher MD [address] [phone] Shanice Zarco MD Physician Other Ophthalmology 10/05/13 [address] [place] [phone] Chuy Falcon, Physician Other Cardiology 07/16/14 [address] [place], [place] [address] Will Dubois MD Physician Other Dermatology 09/21/14 [facility] [address] [place] [phone] Yehuda Quintero MD Physician Other Pain Management 11/02/14 [facility] 9550 [facility] 100 [place] [address] Agustín Ross MD Physician Other Orthopedic Surgery 11/02/14 [facility] [address] [facility] 201 [place] [phone] Pippa Noel, RN RN Regulatory Affairs Intern 02/11/15 11/10/15 Marshal Acosta Other Dental Marble Mechanic Helper 10/05/13 [address] [place], [place] [address] Dr Posey Other Audiology 10/05/13 [place], [place] documented as of this encounter
--- OUTSIDE RECORDS SUMMARY | 2022-06-07 20:55 | XMS_ITS | Encounter Summary ---
:1935 Author Organization [employer] [facility] [employer] [facility] Address [address] [address] Phone Care Team Providers Name Role Phone Deirdre Bedolla MD Primary Care Provider [phone] Shanice Zarco MD Unavailable Chuy Falcon MD Unavailable Will Dubois MD Unavailable Yehuda Quintero MD Unavailable Agustín Ross MD Unavailable Alysia Claudio RN Unavailable Reason for Visit Reason Comments Refill Request Encounter Details Date Type Department Care Team Description 12/30/2014 Refill [facility] Tavo dwyer MD Refill Request MEDICINE [phone] [place] [phone] Social History Tobacco Use Types Packs/Day Years [...] tamsulosin (FLOMAX) 0.4 Take one cap by 90 Cap 0 015 02/20/2016 MG 24 hour capsule mouth once daily, swallow whole, do not crush or chew. documented in this encounter Plan of Treatment Not on filedocumented as of this encounter Goals Goal Patient Goal Associated Recent Patient-Stated? 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 Note: Formatting of this [...] Date End Date tamsulosin (FLOMAX) 0.4 Take 1 Cap by mouth 12/15/2013 12/30/2014 MG 24 hour one time a day. capsuleIndications: BPH Capsules should be (benign prostatic swallowed whole; do hyperplasia) not crush, chew, or open documented as of this encounter Care Teams Technical Specialist Cytology Relationship Specialty Start Date End Date Chioma, PCP - General Family Medicine 06/04/11 01/03/17 Deirdre Mosher MD [address] [phone] Shanice Zarco MD Physician Other Ophthalmology 10/05/[address] [place] [phone] Chuy Falcon, Physician Other Cardiology 07/16/14 [address] [place], [place] [address] Will Dubois MD Physician Other Dermatology 09/21/14 [facility] [address] [place] [address] [place] [address] Yehuda Quintero MD Physician Other Pain Management 11/02/14 [facility] 9550 [facility] 100 [place], [place] [address] Agustín Ross MD Physician Other Orthopedic Surgery 11/02/14 [facility] [address] [facility] 201 [place] [address] Alysia Claudio, RN RN Continuous Process Rotary Drum Tanner 11/30/14 02/10/15 Marshal Acosta Other Dental Marine Tower Operator 10/05/[address] [place] [address] [address] Posey Other Audiology 10/05/13 [place], [place] documented as of this encounter
--- OUTSIDE RECORDS SUMMARY | 2022-06-07 20:55 | XMS_ITS | Encounter Summary ---
:1935 Author Organization [employer] Address [address] [address] Phone Care Team Providers Name Role Phone Rima Bedolla MD Primary Care Provider [phone] Shanice Zarco MD Unavailable Chuy Falcon MD Unavailable Will Dubois MD Unavailable Yehuda Quintero MD Unavailable Agustín Ross MD Unavailable Pippa Noel RN Unavailable Unavailable Reason for Visit Reason Comments Refill Request Ultram Encounter Details Date Type Department Care Team Description 02/17/2015 Refill [facility] Riaz Bedolla efill Request (Ultram) FAMILY MEDICINE Rima Mosher MD [address] [facility] [place] [facility] [address] [address] [place], [place] [phone] (Wo rk) Social History Tobacco Use Types [...] (ULTRAM) 50 MG TAKE ONE TABLET BY 30 Tab 0 02/0504/10/2015 tablet MOUTH NIGHTLY AT BEDTIME NEEDED documented in this encounter Miscellaneous Notes Telephone Encounter - Rima Nath RN - 02/18/2015 3:01 PM CDT Rima Bedolla MD, Nurse Care Line is unable to authorize this medication per the [facility] Refill Protocol. Would you like to refill as requested? Refill requested: Tramadol Last filled: 10-12-14 Quantity: 30 Last seen in PCP's dept: 12-15-14 by Rima Bedolla MD Telephone Encounter - Utility, Refill Wizard - 02/17/2015 3:00 PM CDT traMADol (ULTRAM) 50 MG tablet [Pharmacy Med Name: TraMADol HCl Oral Tablet 50 MG] - WARNING: The requested medication was previously set to Print on 10/12/2014 by RIMA JONES - VIOLATION: Opioid Contract was not found within the last 5 years of the patient record. - PROTOCOL: Analgesics: Opioid Agonists - Tramadol (Controlled Substance) - LAST QUALIFYING VISIT WITH RIMA BEDOLLA: 12/15/2014 - NEXT SCHEDULED VISIT: None - MEDICATION STARTED: 09/22/2014 - LAST REFILLED: Not available (Last set to Print on 10/12/2014 by RIMA JONES Sig: One at night as needed. (changed)) Powered by Kanbox, Reference: [id number], 02/17/2015 3:00:37 PM CDT, Pool: NCL ([id number]) documented in this encounter Plan of Treatment Not on filedocumented as of this encounter Goals Goal Patient Goal Associated Recent Patient-Stated? 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 Note: Formatting of this [...] Date End Date traMADol (ULTRAM) 50 MG One at night as 10/12/2014 0 02/17/2015 tablet needed. documented as of this encounter Care Teams Automated Teller Manager Relationship Specialty Start Date End Date Chioma PCP - General Family Medicine 06/04/11 01/03/17 Rima Mosher MD [address] [phone] Shanice Zarco MD Physician Other Ophthalmology 10/05/[address] [place] [phone] Chuy Falcon, Physician Other Cardiology 07/16/14 3 [place], [place] [phone] Will Dubois MD Physician Other Dermatology 09/21/14 [facility] [address] [place] [address] Yehuda Quintero MD Physician Other Pain Management 11/02/14 [facility] 9550 [facility] 100 [place], [place] [address] Agustín Ross MD Physician Other Orthopedic Surgery 11/02/14 [facility] [address] [place] [address] Pippa Noel, RN RN Side Door Man 02/11/15 11/10/15 Marshal Acosta Other Dental Computer Applications Instructor 10/05/[address] [place] [phone] Posey Other Audiology 10/05/13 [place], [place] documented as of this encounter
--- OUTSIDE RECORDS SUMMARY | 2022-06-07 20:56 | XMS_ITS | Encounter Summary ---
:1935 Author Organization [employer] Address [address] [address] Phone Care Team Providers Name Role Phone Deirdre Bedolla MD Primary Care Provider [phone] Jessica Chua RN Unavailable [phone] Shanice Zarco MD Unavailable Chuy Falcon MD Unavailable Will Dubois MD Unavailable Reason for Visit Reason Onset Date Comments Medication Information 10/20/2014 Encounter Details Date Type Department Care Team Description 10/20/2014 Telephone [facility] Farhana Hurley, Medication Information FAMILY MEDICINE FIELD PIPELINES SUPERVISOR 2023 [place] [address] Social History Tobacco Use Types Packs/Day Years Used Date Smoking Tobacco: Never Smokeless Tobacco: Never Alcohol Use Standard Drinks/Week Comments No 0 (1 standard drink = 0.6 oz pure alcoho l) Sex Assigned at Date Recorded Not on file documented as of this encounter Functional Status Functional Status Response Date of Assessment Patient's Vision Adequate to Safely Complete Daily No 04/18/2014 Activities Cognitive Status Response Date of Assessment Patient's Judgment Adequate to Safely Complete Daily No 04/18/2014 Activities documented as of this encounter Miscellaneous Notes Telephone Encounter - Farhana Hurley, FIELD PIPELINES SUPERVISOR - 10/20/2014 2:57 PM CDT ----- Message from Deirdre Bedolla MD sent at 10/20/2014 12:26 PM CDT ----- Mirapex 0.125 at night. I swear he has been on something like this in the past. See me in 1 month tolet me know how it is going. ----- Message ----- From: Farhana Hurley LPN Sent: 10/20/2014 11:49 AM To: Deirdre Bedolla MD Has been getting tremors in arms/legs noticed more in the evenings. documented in this encounter Plan of Treatment Not on filedocumented as of this encounter Goals Goal Patient Goal Associated Recent Patient-Stated? 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 Note: Formatting of [...] on filedocumented in this encounter Care Teams Hull Sorter Relationship Specialty Start Date End Date YESENIA Bedolla - General Family Medicine 06/04/11 01/03/17 Deirdre Mosher MD [address] [phone] Jessica Chua RN Oil Heater Operator Family Medicine 09/04/13 11/29/14 E, RN Shanice Zarco MD Physician Other Ophthalmology 10/05/[address] [place] [address] Chuy Falcon, Physician Other Cardiology 07/16/14 3 [place], [place] [address] Will Dubois MD Physician Other Dermatology 09/21/14 [facility] [address] [place] [phone] Marshal Acosta Other Dental Insurance Professional 10/05/[address] [place] [address] Dr Posey Other Audiology 10/05/13 [place], [place] documented as of this encounter
--- OUTSIDE RECORDS SUMMARY | 2022-06-07 20:56 | XMS_ITS | Encounter Summary ---
:1935 Author Organization [employer] Address [address] [address] Phone Care Team Providers Name Role Phone Deirdre Bedolla MD Primary Care Provider [phone] Jessica Chua RN Unavailable [phone] Shanice Zarco MD Unavailable Chuy Falcon MD Unavailable Will Dubois MD Unavailable Reason for Visit Reason Onset Date Comments Refill Request 10/20/2014 Encounter Details Date Type Department Care Team Description 10/20/2014 Refill [facility] Jerry Haro reba Ramos LPN Refill Request MEDICINE 2023 [facility] FAHEEM Burdick [id number] Social History Tobacco Use Types Packs/Day Years [...] 04/18/2014 Activities documented as of this encounter Ordered Prescriptions Prescription Sig Dispensed Refills Start Date End Date pramipexole (MIRAPEX) Take 1 Tab by mouth 30 Tab 1 10/2004/27/2015 0.125 MG tablet every evening. documented in this encounter Plan of Treatment Not on filedocumented as of this encounter Goals Goal Patient Goal Associated Recent Patient-Stated? 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 Note: Formatting of [...] filedocumented in this encounter Care Teams Land Measurer Relationship Specialty Start Date End Date Chioma PCP - General Family Medicine 06/04/11 01/03/17 Deirdre Mosher MD [address] [phone] Jessica Chua RN Button Tufting Machine Operator Family Medicine 09/04/13 11/29/14 E, RN Shanice Zarco MD Physician Other Ophthalmology 10/05/[address] [place] [address] Chuy Falcon, Physician Other Cardiology 07/16/14 3 [place], [place] [phone] Will Dubois MD Physician Other Dermatology 09/21/14 [facility] [address] [place] [address] Marshal Acosta Other Dental Fitting Room Supervisor 10/05/13 [address] [place], [place] [phone] Dr Posey Other Audiology 10/05/13 [place], [place] documented as of this encounter
--- OUTSIDE RECORDS SUMMARY | 2022-06-07 20:56 | XMS_ITS | Encounter Summary ---
:1935 Author Organization [employer] Address [address] [address] Phone Care Team Providers Name Role Phone Deirdre Bedolla MD Primary Care Provider [phone] Shanice Zarco MD Unavailable Chuy Falcon MD Unavailable Will Dubois MD Unavailable Yehuda Quintero MD Unavailable Agustín Ross MD Unavailable Alysia Claudio RN Unavailable Reason for Referral (Routine) - Closed Specialty Diagnoses / Procedures Referred By Contact Refer red To Contact Orthopedic Surgery / Diagnoses Hip pain, left [facility] Deirdre Mosher MD [address] [address] Referral ID Status Reason Start Date Expiration Date Visits Requ ested Visits Authorized [id number] Closed 12/15/2014 06/27/2016 1 1 Comments Reason for Referral: Hip pain Is the reason for referral related to an injury? no Has the patient ever had surgery on this extremity/joint? yes If applicable, list side: left Are there any films/x-rays pertaining to the reason for referral? no Have labs been ordered that are related to the reason for referral? no Referred to (facility name): [facility] Provider requested: Dr. Duffy Referral made at the request of patient/ family member Reason for Visit Reason Comments Diabetes eye exam Blood Pressure Encounter Details Date Type Department Care Team Description 12/15/2014 Office Visit [facility] PANFILO Bedolla, Hip pain , left (Primary Dx); [facility] FAMILY Deirdre Mosher MD Depression; MEDICINE [address] Bilateral low back pain with out sciatica; [address] [facility] [address] Diabetes; Street [place], [place] [address] Essential hypertension; [place] [address] Hyperlipidemia; Need for prophylactic vaccination agains t Streptococcus pneumoniae (pneumococcus); Pneumonia , unspecified laterality, unspecified part of lung Social History Tobacco Use Types Packs/Day Years Used Date Smoking Tobacco: Never Smokeless Tobacco: Never Alcohol Use Standard Drinks/Week Comments No 0 (1 standard drink = 0.6 oz pure alcoho l) Sex Assigned at Date Recorded Not on file documented as of this encounter Last Filed Vital Signs Vital Sign Reading Time Taken Comments Blood Pressure 130/74 12/15/2014 10:39 AM CDT Pulse 73 12/15/2014 10:39 AM CDT Temperature - - Respiratory Rate - - Oxygen Saturation - - Inhaled Oxygen Concentration - - Weight 95.3 kg (210 lb) 12/15/2014 10:39 AM CDT Height - - Body Mass Index 31.93 11/17/2014 4:10 PM CDT documented in this encounter Functional Status Functional Status Response Date of Assessment Patient's Vision Adequate to Safely Complete Daily No 11/17/2014 Activities Patient's Memory Adequate to Safely Complete Daily No 11/17/2014 Activities Cognitive Status Response Date of Assessment Patient's Judgment Adequate to Safely Complete Daily No 11/17/2014 Activities documented as of this encounter Patient Instructions Patient InstructionsMaann-Deirdre Cristobal MD - 12/15/2014 11:02 AM CDT STOP cymbalta and start Prozac 20mg every morning. See me in 6 weeks. documented in this encounter Ordered Prescriptions Prescription Sig Dispensed Refills Start Date End Date pneumococcal 13-Jenna conj Inject 0.5 mL into 0.5 mL 0 04/201512/15/2014 vacc (PREVNAR 13) the muscle one time injectionIndications: Need for 1 dose. for prophylactic vaccination against Streptococcus pneumoniae (pneumococcus) Hydrocodone-Acetaminophen Take by mouth. 1 po 15 Tab 0 0 12/15/2014 04/10/2015 (VICODIN) 5-300 MG Tab at night as needed for pain. FLUoxetine (PROZAC) 20 MG Take 1 Cap by mouth 30 Cap 1 0 12/15/2014 02/24/2015 capsule one time a day. documented in this encounter Progress Notes Deirdre Bedolla MD - 12/16/2014 7:57 AM CDT [facility] Patient Name: AAMIR CASTILLO Date of Service: 12/15/2014 : 1935 Age: 79Y Sex: M Site MRN: Patient Loc/Room #: [facility] FP/ Provider: Deirdre Bedolla MD, Family Practice OFFICE NOTE SITE: [facility] SUBJECTIVE: Joe is here today for his diabetic checkup. A1c has improved from 7 to 6.7. Is trying to watch his diet. Main concern is his depression, however. He had a day recently where he was just irrational, did not know why he was alive, actually told his he was going to take some pills. She took everything away and it did settle down, but obviously we need to do better. Currently he is on Cymbalta, both for pain and depression. Other issue is that he had an episode of pneumonia and sepsis in [place]. Needs a followup chest x-ray. Feels well. 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 Is not getting any sleep. Just really has not found anything that has been helpful for his pain. Has been intolerant of several medications, but we certainly can revisit that. Currently taking tramadol at night and it is doing nothing. Night is the worst time. PAST MEDICAL HISTORY: 1. Coronary artery disease with an DE in 1989. Had right coronary stenting at that time and then an DE in June 2012, which was a restenosis of that stent. Has bare-metal stents. He coded in the ambulance on the way to [place] and follows with cardiology. 2. Type 2 diabetes. 3. History of epidural abscess, diskitis, and osteomyelitis of the back. ID has taken him off all antibiotics, but still suffers with chronic pain. Previously intolerant of all narcotics. We will retryVicodin today. We will stop Cymbalta, not particularly helpful. Is on gabapentin and also has a spinal cord stimulator. 4. Reflux. 5. Hyperlipidemia. 6. Hypertension. 7. History of cervical neck fracture. 8. Benign prostatic hypertrophy. 9. Erectile dysfunction. 10. History of hypokalemia. 11. Chronic hearing loss. SOCIAL HISTORY: Nonsmoker. REVIEW OF SYSTEMS: No chest pains. No shortness of breath. Weight stable. EXAM: Weight is 210, blood pressure 130/74, pulse 73. Generally pleasant, nontoxic, no acute distress. HEENT - atraumatic, normocephalic. Conjunctivae are clear. Heart is regular rate and rhythm. Respiratory - he is breathing comfortably. Lungs are clear. Psychiatric - well dressed, well groomed, alert, oriented. Judgment and insight fair. Affect full, but mood he says is depressed. ASSESSMENT AND PLAN: 1. Depression. Stop Cymbalta. Start Prozac 20 daily in the morning. Encouraged him to see a counselor. Gave him the number for crisis line if things get as bad as they did the other night and see me again in 6 weeks. 2. Hip pain. I will refer him to orthopedics. This is a hip that he has had a previous replacement. 3. Low back pain, chronically after diskitis, osteomyelitis. We will try Vicodin at night. Stop tramadol. 4. Diabetes. A1c was good. 5. Hypertension, well-controlled. 6. Hyperlipidemia. Appropriately on a high-dose statin. We gave him a Prevnar and follow up for depression in 6 weeks. 7. Recent pneumonia with sepsis. Repeated chest x-ray that is negative today. Deirdre Bedolla MD [facility] cc: /GARRETT Job ID: [id number] /srhts Document ID: [id number] Deirdre Bedolla MD - 12/15/2014 1:01 PM CDT .dict documented in this encounter Miscellaneous Notes Clinical Note - Serenity Miranda LPN - 12/01/2014 9:25 AM CDT This chart was prepped for visit by Serenity Miranda LPN on 12/01/2014. documented in this encounter Plan of Treatment Not on filedocumented as of this encounter Goals Goal Patient Goal Associated Recent Patient-Stated? 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 Note: Formatting of this [...] that helps. documented as of this encounter Results XR CHEST 2 VIEWS (12/15/2014 11:35 AM CDT) Anatomical Region Laterality Modality Chest Radiographic Imaging Specimen (Source) Anatomical Collection Method Collection Time Re ceived Time Location / / Volume Laterality 12/15/2014 11:35 AM CDT Narrative 12/15/2014 11:38 AM CDT This document is currently in Final Status Exam XR CHEST 2 VIEWS INDICATION: follow-up pneumonia COMPARISON: ?? 06/23/2012. No recent monica dies available. VIEWS: ?Two views. ?? FINDINGS: Heart size normal. ?? Lungs are clear. No infiltrates seen. Neurostimulator device projected over th e mid thoracic spine. Degenerative disc disease and hypertrophic change. Old healed fracture lateral left 7th rib. No pleural effusions. IMPRESSION: ??No evidence of pneumonia. Signed: Kendall Escamilla MD 12/15/2014 11:38 A M Procedure Note Kendall Escamilla MD - 12/15/2014 This document is currently in Final Stat us Exam XR CHEST 2 VIEWS INDICATION: follow-up pneumonia COMPARISON: 06/23/2012. No recent studie s available. VIEWS: Two views. FINDINGS: Heart size normal. Lungs are clear. No infiltrates seen. Neurostimulator device projected over th e mid thoracic spine. Degenerative disc disease and hypertrophic change. Old healed fracture lateral left 7th rib. No pleural effusions. IMPRESSION: No evidence of pneumonia. Signed: Kendall Escamilla MD 12/15/2014 11:38 A M Deirdre Bedolla MD [facility] ORD ERABLES documented in this encounter Visit Diagnoses Diagnosis Hip pain, left - Primary Pain in joint, pelvic region and thigh Depression Depressive disorder, not elsewhere class ified Bilateral low back pain without sciatica Diabetes Type II or unspecified type diabetes cindy litus without mention of complication, not stated as uncontrolled Essential hypertension Unspecified essential hypertension Hyperlipidemia Other and unspecified hyperlipidemia Need for prophylactic vaccination agains t Streptococcus pneumoniae (pneumococcus) Need for prophylactic vaccination agains t streptococcus pneumoniae (pneumococcus) Pneumonia, unspecified laterality, unspe cified part of lung documented in this encounter Discontinued Medications Medication Sig Discontinue Reason Start Date End Date DULoxetine (CYMBALTA) TAKE ONE CAPSULE BY Course of treatment 10/0612/15/2014 60 MG delayed release MOUTH ONE TIME completed capsule DAILY DO NOT CRUSH documented as of this encounter Orders Immunization/Injection Count Last Ordered Date First O rdered Date IMMUNIZATION ADMINISTRATION; ONE VACCINE 1 015 (SINGLE OR COMBINATION VACCINE/TO* PNEUMOCOCCAL, MAGDY, INJ 1 12/15/2014 REFERRAL Count Last Ordered Date First Ordered Date APPT WITH [facility] 1 12/15/2014 documented in this encounter Care Teams Sales And Training Specialist Relationship Specialty Start Date End Date [facility] PCP - General Family Medicine 06/04/11 01/03/17 Deirdre Mosher MD [address] [address] Shanice Zarco MD Physician Other Ophthalmology 10/05/[address] [place] [address] Chuy Falcon, Physician Other Cardiology 07/16/14 [address] [place], [place] [phone] Will Dubois MD Physician Other Dermatology 09/21/14 [facility] [address] [place] [address] Yehuda Quintero MD Physician Other Pain Management 11/02/14 [facility] [address] [facility] 100 [place] [address] Agustín Ross MD Physician Other Orthopedic Surgery 11/02/14 [facility] [address] [address] Alysia Claudio, RN RN Vice President 11/30/14 02/10/15 Marshal Acosta Other Dental Stocklayer 10/05/13 [address] [place], [place] [phone] Dr Posey Other Audiology 10/05/13 [place], [place] documented as of this encounter
--- OUTSIDE RECORDS SUMMARY | 2022-06-07 20:56 | XMS_ITS | Encounter Summary ---
:1935 Author Organization [employer] Address [address] [address] Phone Care Team Providers Name Role Phone Deirdre Bedolla MD Primary Care Provider [phone] Shanice Zarco MD Unavailable Chuy Falcon MD Unavailable Will Dubois MD Unavailable Yehuda Quintero MD Unavailable Agustín Ross MD Unavailable Alysia Claudio RN Unavailable Reason for Visit Reason Comments Refill Request Protonix Encounter Details Date Type Department Care Team Description 12/30/2014 Refill [facility] Riaz Bedolla efill Request FAMILY MEDICINE Deirdre Mosher MD (Protonix) 2023 [facility] [address] [address] [place], [place] [address] (Wo rk) Social History Tobacco Use Types [...] 40 TAKE ONE TABLET BY 90 Tab 3 0 12/31/2014 02/01/2016 MG delayed-release tablet MOUTH ONE TIME DAILY DO NOT CRUSH documented in this encounter Miscellaneous Notes Telephone Encounter - Edna Kenney RN - 12/31/2014 2:03 PM CDT The refill request is Ok to authorize per the [facility] Medication Refill Protocol. Telephone Encounter - Utility, Refill Wizard - 12/30/2014 2:10 PM CDT 1) pantoprazole (PROTONIX) 40 MG delayed-release tablet [Pharmacy Med Name: Pantoprazole Sodium OralTablet Delayed Release 40 MG] - REFILL: 12 months - PROTOCOL: Gastroenterology: Antiulcer - Proton Pump Inhibitors - RATIONALE: This refill should last until the patient is due for an office visit. - LAST QUALIFYING VISIT WITH DEIRDRE BEDOLLA K: 12/15/2014 - NEXT SCHEDULED VISIT: None - MEDICATION STARTED: 10/30/2012 - LAST REFILLED ON: 09/30/2014, QTY: 90, Refills: 0, Sig: take one tablet by mouth one time daily donot crusdaniel (unchanged) Powered by [employer], Reference: [id number], 12/30/2014 2:10:00 PM CDT, Pool: KLEVER ([id number]) 2) pramipexole (MIRAPEX) 0.125 MG tablet [Pharmacy Med Name: Pramipexole Dihydrochloride Oral Tablet0.125 MG] - REFILL: 12 months - PROTOCOL: Neurology: Parkinsonian Agents - RATIONALE: This refill should last until the patient is due for an office visit. - LAST QUALIFYING VISIT WITH DEIRDRE BEDOLLA K: 12/15/2014 - NEXT SCHEDULED VISIT: None - MEDICATION STARTED: 10/20/2014 - LAST REFILLED ON: 10/20/2014, QTY: 30, Refills: 1, Sig: take 1 tab by mouth every evening. (changed but equivalent) - LAST FILL DATE FROM PHARMACY: 11/18/2014 Powered by [employer], Reference: [id number], 12/30/2014 2:10:00 PM CDT, Pool: KLEVER ([id number]) documented in this encounter Plan of Treatment Not on filedocumented as of this encounter Goals Goal Patient Goal Associated Recent Patient-Stated? 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 Note: Formatting of this note might be d [email or web address] from the original. Had spinal cord stimulator [...] Date pantoprazole (PROTONIX) TAKE ONE TABLET BY 09/30/2014 12/30/2014 40 MG delayed-release MOUTH ONE TIME tablet DAILY DO NOT CRUSH documented as of this encounter Care Teams Pulverizer Relationship Specialty Start Date End Date [facility] PCP - General Family Medicine 06/04/11 01/03/17 Deirdre Mosher MD [address] [address] Shanice Zarco MD Physician Other Ophthalmology 10/05/[address] [place] [address] Chuy Falcon, Physician Other Cardiology 07/16/14 523 [place], [place] [address] Will Dubois MD Physician Other Dermatology 09/21/14 [facility] [address] [place] [address] Yehuda Quintero MD Physician Other Pain Management 11/02/14 [facility] 9550 [facility] 100 [place] [address] Agustín Ross MD Physician Other Orthopedic Surgery 11/02/14 [facility] [address] [place] [address] Alysia Claudio, RN RN National Account Manager 11/30/14 02/10/15 Marshal Acosta Other Dental Implementation Project Coordinator 10/05/13 [address] [place], [place] [phone] Dr Posey Other Audiology 10/05/13 [place], [place] documented as of this encounter
--- OUTSIDE RECORDS SUMMARY | 2022-06-07 20:56 | XMS_ITS | Encounter Summary ---
:1935 Author Organization [employer] Address [address] [address] Phone Care Team Providers Name Role Phone Deirdre Bedolla MD Primary Care Provider [phone] Shanice Zarco MD Unavailable Chuy Falcon MD Unavailable Will Dubois MD Unavailable Yehuda Quintero MD Unavailable Agustín Ross MD Unavailable Alysia Claudio RN Unavailable Reason for Visit Reason Onset Date Comments Results 12/21/2014 Encounter Details Date Type Department Care Team Description 12/21/2014 Telephone [facility] Torsten Bo LPN [address] [address] Social History Tobacco Use Types Packs/Day Years [...] this encounter Miscellaneous Notes Telephone Encounter - Nadira Bo LPN - 12/21/2014 8:41 AM CDT Advertising Dispatch Clerk talked to patients Mary Ann and let him know xrays were negative. Mary Ann said Joe's legis doing well and scabbing over. They will be following up with Dr. Cristobal. Patients pleased with Dr. Obando's wonderful care and have no questions or concerns. Telephone Encounter - Nadira Bo LPN - 12/21/2014 8:39 AM CDT ----- Message from Adri Obando MD sent at 12/20/2014 9:50 PM CDT ----- Please check in with Joe and his Mary Ann - they are patients that I saw in - how is his legdoing? His xrays were negative - please let them know it was a real pleasure to see/meet them and I hope his leg is feeling better! Please remind them to follow up with Dr. Cristobal as well. Please let me know if there are any questions/concerns. Thank you! documented in this encounter Plan of Treatment Not on filedocumented as of this encounter Goals Goal Patient Goal Associated Recent Patient-Stated? 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 Note: Formatting of [...] on filedocumented in this encounter Care Teams Food Safety Officer Relationship Specialty Start Date End Date [facility] PCP - General Family Medicine 06/04/11 01/03/17 Deirdre Mosher MD [address] [address] Shanice Zarco MD Physician Other Ophthalmology 10/05/[address] [place] [address] Chuy Falcon, Physician Other Cardiology 07/16/14 [address] [place], [place] [address] Will Dubois MD Physician Other Dermatology 09/21/14 [facility] [address] [place] [address] Yehuda Quintero MD Physician Other Pain Management 11/02/14 [facility] 9550 [facility] 100 [place], [place] [phone] Agustín Ross MD Physician Other Orthopedic Surgery 11/02/14 [facility] [address] [place] [address] Alysia Claudio, RN RN Middle School Coach 11/30/14 02/10/15 Marshal Acosta Other Dental Organic Search Lead 10/05/[address] [place] [phone] Posey Other Audiology 10/05/13 [place], [place] documented as of this encounter
--- OUTSIDE RECORDS SUMMARY | 2022-06-07 20:56 | XMS_ITS | Encounter Summary ---
:1935 Author Organization [employer] Address [address] [address] Phone Care Team Providers Name Role Phone Deirdre Bedolla MD Primary Care Provider [phone] Jessica Chua RN Unavailable [phone] Shanice Zarco MD Unavailable Chuy Falcon MD Unavailable Will Dubois MD Unavailable Reason for Visit Reason Onset Date Comments Care Coordination Program 10/19/2014 [facility] Phone Outreach 10/19/2014 Encounter Details Date Type Department Care Team Description 10/19/2014 Telephone [facility]oma Care Coordination FAMILY MEDICINE Jessica Parish RN Program; [facility] Phone [address] [facility] [phone] [place] [address] (Work) [phone] Social History Tobacco Use Types Packs/Day Years [...] this encounter Miscellaneous Notes Telephone Encounter - Jessica Chua - 10/19/2014 3:54 PM CDT Subject: Care Coordination Post visit Reviewed notes from office visit with Urgent Care on 10/14/14 and [facility] on 10/12/14. Changes not made to Care Plan. Call placed to pt to discuss and review: 1. Mary Ann, Joe's , said that his laceration has healed beautifully. You can't even tell it happened. 2. Mary Ann said that Joe found his appointment with [facility] very helpful and have been able to refer to the information reviewed at home when meal planning. Pt's Did verbalize understanding of: of above. Planned follow up: 12/15/14 with Deirdre Bedolla MD documented in this encounter Plan of Treatment Not on filedocumented as of this encounter Goals Goal Patient Goal Associated Recent Patient-Stated? 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 Note: Formatting of [...] Primary documented in this encounter Care Teams Laser Engineer Relationship Specialty Start Date End Date YESENIA Bedolla - General Family Medicine 06/04/11 01/03/17 Deirdre Mosher MD [address] [address] Jessica Chua RN [facility] Family Medicine 09/04/13 11/29/14 [facility] Shanice Zarco MD Physician Other Ophthalmology 10/05/[address] [place] [address] [place] [address] Chuy Falcon, Physician Other Cardiology 07/16/[address] [place] [phone] Will Dubois MD Physician Other Dermatology 09/21/14 [facility] [address] [place] [address] Marshal Acosta Other Dental Demand Equipment Repairer 10/05/[address] [place] [phone] Posey Other Audiology 10/05/13 [place], [place] documented as of this encounter
--- OUTSIDE RECORDS SUMMARY | 2022-06-07 20:56 | XMS_ITS | Encounter Summary ---
:1935 Author Organization [employer] Address [address] [address] Phone Care Team Providers Name Role Phone Deirdre Bedolla MD Primary Care Provider [phone] Shanice Zarco MD Unavailable Chuy Falcon MD Unavailable Will Dubois MD Unavailable Yehuda Quintero MD Unavailable Agustín Ross MD Unavailable Alysia Claudio RN Unavailable Reason for Visit Reason Onset Date Comments Care Coordination Program 12/21/2014 [facility] visit Encounter Details Date Type Department Care Team Description 12/21/2014 Telephone [employer]Alysia Marquez Care Coordination FAMILY MEDICINE RN Program ([facility] visit) [id number] [phone] FAHEEM GUERRERO [address] (Work) [phone] Social History Tobacco Use Types Packs/Day Years [...] this encounter Miscellaneous Notes Telephone Encounter - Alysia Claudio RN - 12/21/2014 2:56 PM CDT Mary Ann states leg is looking very good. Scabbing over. No increased pain or redness. Mary Ann states Joe is taking ciprofloxin 500mg, twice a day. documented in this encounter Plan of Treatment Not on filedocumented as of this encounter Goals Goal Patient Goal Associated Recent Patient-Stated? Author Type Problems Progress I want to work Lifestyle Epidural No Wistrom-T he towards getting abscess sing, Lorena a my back pain at E, GRAPHIC DESIGN ASSISTANT, a lower and GEOTECHNICAL ENGINEERING TECHNICIAN more tolerable level. Note: Formatting of [...] on filedocumented in this encounter Care Teams Baseball Inspector And Repairer Relationship Specialty Start Date End Date Chioma PCP - General Family Medicine 06/04/11 01/03/17 Deirdre Mosher MD [address] [id number] Shanice Zarco MD Physician Other Ophthalmology 10/05/[address] [place] [address] Chuy Falcon, Physician Other Cardiology 07/16/14 [address] [place], [place] [phone] Will Dubois MD Physician Other Dermatology 09/21/14 [facility] [address] [place] [address] Yehuda Quintero MD Physician Other Pain Management 11/02/14 [facility] 9550 [facility] 100 [place], [place] [id number] Agustín Ross MD Physician Other Orthopedic Surgery 11/02/14 [facility] [address] [place] [address] Alysia Claudio, RN RN Sales Estimator 11/30/14 02/10/15 Marshal Acosta Other Dental Opto Mechanical Engineer 10/05/[address] [place] [id number] Posey Other Audiology 10/05/13 [place], [place] documented as of this encounter
--- OUTSIDE RECORDS SUMMARY | 2022-06-07 20:56 | XMS_ITS | Encounter Summary ---
:1935 Author Organization [employer] Address [address] [address] Phone Care Team Providers Name Role Phone Deirdre Bedolla MD Primary Care Provider [phone] Shanice Zarco MD Unavailable Chuy Falcon MD Unavailable Will Dubois MD Unavailable Yehuda Quintero MD Unavailable Agustín Ross MD Unavailable Alysia Claudio RN Unavailable Reason for Visit Reason Comments Referral [facility] Encounter Details Date Type Department Care Team Description 12/15/2014 Notes [facility] Huber Patricio ([facility]) 2023 [facility] [place], [place] [address] Social History Tobacco Use Types Packs/Day Years [...] documented as of this encounter Progress Notes Rita Patricio - 12/15/2014 2:40 PM CDT Referral received and faxed to [facility]. Patient will receive a call to schedule appointment from that facility once patient's chart/ information have been reviewed. For questions, please have patient call [phone] to speak with scheduling office. Thank you documented in this encounter Plan of Treatment Not on filedocumented as of this encounter Goals Goal Patient Goal Associated Recent Patient-Stated? 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 Note: Formatting of this [...] on filedocumented in this encounter Care Teams Thread Inspector Relationship Specialty Start Date End Date Chioma PCP - General Family Medicine 06/04/11 01/03/17 Deirdre Mosher MD [address] [address] Shanice Zarco MD Physician Other Ophthalmology 10/05/[address] [place] [address] Chuy Falcon, Physician Other Cardiology 07/16/14 [address] [place], [place] [phone] Will Dubois MD Physician Other Dermatology 09/21/14 [facility] [address] [place] [address] Yehuda Quintero MD Physician Other Pain Management 11/02/14 [facility] 9550 [facility] 100 [place], [place] [address] Agustín Rsos MD Physician Other Orthopedic Surgery 11/02/14 [facility] [address] [place] [address] Alysia Claudio, RN RN Coat Hanger Shaper Machine Operator 11/30/14 02/10/15 Marshal Acosta Other Dental Dictaphone Mechanic 10/05/[address] [place] [address] Posey Other Audiology 10/05/13 [place], [place] documented as of this encounter
--- OUTSIDE RECORDS SUMMARY | 2022-06-07 20:56 | XMS_ITS | Encounter Summary ---
:1935 Author Organization [employer] Address [address] [address] Phone Care Team Providers Name Role Phone Deirdre Bedolla MD Primary Care Provider [phone] Jessica Chua RN Unavailable [phone] Shanice Zarco MD Unavailable Chuy Falcon MD Unavailable Will Dubois MD Unavailable Yehuda Quintero MD Unavailable Agustín Ross MD Unavailable Reason for Visit Reason Comments Urinary Frequency Encounter Details Date Type Department Care Team Description [facility]/17[facility]2014 [facility] Department [address] [place] [address] FAHEEM Burdick [address] FAHEEM BURDICK [phone] Social History Tobacco Use Types Packs/Day Years Used Date Smoking Tobacco: Never Smokeless Tobacco: Never Alcohol Use Standard Drinks/Week Comments No 0 (1 standard drink = 0.6 oz pure alcoho l) Sex Assigned at Date Recorded Not on file documented as of this encounter Last Filed Vital Signs Vital Sign Reading Time Taken Comments Blood Pressure 124/76 11/17/2014 5:50 PM CDT Pulse 68 11/17/2014 5:50 PM CDT Temperature 36.4 ??C (97.6 ??F) 11/17/2014 4:10 PM CDT Respiratory Rate 16 11/17/2014 5:50 PM CDT Oxygen Saturation 97% 11/17/2014 5:50 PM CDT Inhaled Oxygen Concentration - - Weight 95.7 kg (211 lb) 11/17/2014 4:10 PM CDT Height 172.7 cm (5' 8) 11/17/2014 4:10 PM CDT Body Mass Index 32.08 11/17/2014 4:10 PM CDT documented in this encounter Functional Status Functional Status Response Date of Assessment Patient's Vision Adequate to Safely Complete Daily No 11/17/2014 Activities Patient's Memory Adequate to Safely Complete Daily No 11/17/2014 Activities Cognitive Status Response Date of Assessment Patient's Judgment Adequate to Safely Complete Daily No 11/17/2014 Activities documented as of this encounter Discharge Instructions Discharge InstructionsVernon Barger PA-C - 11/17/2014 5:18 PM CDT Images from the original note were not included. REMOVE CATHETER INSTRUCTED MORNING OF UROLOGY APPOINTMENT Salas Catheter Care A Salas catheter is a rubber tube that is placed through the urethra (opening where urine comes out)and into the bladder. This helps drain urine from the bladder. There is a small balloon on the end of the tube that is inflated after insertion. This keeps the catheter from sliding out of the bladder. A Salas catheter is used to treat urinary retention (unable to pass urine). It is also used when there is incontinence (loss of bladder control). Home Care: ?? Finish taking any prescribed antibiotic even if you are feeling better before then. ?? It is important to keep bacteria from getting into the collection bag. Do not disconnect the catheter from the collection bag. ?? Use a leg band to secure the drainage tube, so it does not pull on the catheter. Drain the collection bag when it becomes full using the drain spout at the bottom of the bag. ?? Do not try to pull or remove your catheter. This will injure your urethra. It must be removed by a doctor or nurse. Follow Up with your doctor, or as advised, for repeat urine testing and catheter removal or replacement. Get Prompt Medical Attention if any of the following occur: ?? Fever of 100.4??F (38??C) or higher, or as directed by your healthcare provider ?? Bladder pain or fullness ?? Abdominal swelling, nausea or vomiting or back pain ?? Blood or urine leakage around the catheter ?? Bloody urine coming from the catheter (if a new symptom) ?? Catheter falls out ?? Catheter stops draining for 6 hours ?? Weakness, dizziness or fainting ?? [id number] [employer]. [address] [place] [address], [place] [address]. All rights reserved. This information is not intended as a substitute for professional medical care. Always follow your healthcare professional's instructions. documented in this encounter Medications at Time of Discharge Medication Sig Dispensed Refills Start Date End Date Ascorbic Acid (VITAMIN C) Chew and swallow [...] 08/05/09 14:22:55 documented as of this encounter Discharge Disposition Disposition Code Departure Means Destination Home and/or Self Prison documented in this encounter ED Notes Deloris Del Real RN - 11/17/2014 5:50 PM CDT Discharged salas in fitted with a leg bag tube patent. Salas instructions gone over with patient andwife also physically shown. To follow up at the urologist on . If problems like pain or fever to return. Vernon Barger PA-C - 11/17/2014 5:25 PM CDT Patient: Simon Castillo Chief Complaint: Urinary Frequency History of Present Illness: HPI 79-year-old male with a history of diabetes mellitus and corrective bladder who presents to the emergency department with a 3-4 day history of urinary frequency, urgency, and incomplete emptying. He is presently being managed by Dr. Darling from urology in [place]. He underwent Botox injection by him on 11/05/14. He was doing well up until a few days ago when he developed the aforementioned symptoms. He was seen in the emergency department at [place] over the weekend. Urinalysis was obtained and demonstrated no evidence of infection. His symptoms have persisted, and today he called the urology office and was instructed to come here to the emergency department. He denies fever, chills, abdominal pain, flank pain, hematuria, or othersystemic complaints. He does have a follow-up appointment scheduled with urology in 1 week. Review of Systems: Review of Systems Constitutional: Negative for fever and chills. Gastrointestinal: Negative for nausea, vomiting and abdominal pain. Genitourinary: Positive for urgency, frequency and difficulty urinating. Negative for hematuria and testicular pain. Musculoskeletal: Negative for back pain. Allergies Allergen Reactions ??? Penicillins Prior to Admission Medication List ASPIRIN LOW DOSE 81 MG tablet 81 mg 1 tablet, ORAL, DAILY, 08/05/09 14:22:55 Ascorbic Acid (VITAMIN C) 500 MG Cap Chew and swallow one tablet by mouth one time daily DULoxetine (CYMBALTA) 60 MG delayed release capsule TAKE ONE CAPSULE BY MOUTH ONE TIME DAILY DO NOT CRUSH DULoxetine (CYMBALTA) 60 MG delayed release capsule TAKE ONE CAPSULE BY MOUTH ONE TIME DAILY DO NOT CRUSH Multiple Vitamin (MULTIVITAMIN) tablet Take 1 Tab [...] Cap by mouth one time a day. Capsules should be swallowed whole; do not crush, chew, or open traMADol (ULTRAM) 50 MG tablet One at night as needed. Ongoing Comment Jessica Cuha RN 10/05/2013 11:28 AM Person that helps with medications: Yes, Mary Ann How medications are managed: Mary Ann sets up every night. Medications are taken: By mouth Durable medical Supplier: Unknown Specific Med/pharmacy preferences: [facility] in [place] Past Medical History: Past Medical History Diagnosis Date ??? DM type 2 (diabetes mellitus, type 2) (HCC) ??? Hypertension ??? 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 CAD (coronary artery disease) with history of IL and stent placement ??? Hyperlipidemia ??? Diverticulosis [...] Spinal Cord Stimulator (Medtronic), Dr Ramey at [facility] ??? Cmplx cmg/void pressure study 04/07/2014 Dr. Ruiz Family History: No family history on file. Social History: He reports that he has never smoked. He has never used smokeless tobacco. He reports that he does not drink alcohol. Exam: BP 134/87 Pulse 69 Temp(Src) 97.6 ??F (36.4 ??C) (Oral) Resp 16 Ht 1.727 m (5' 8) Wt 95.709 kg (211 lb) BMI 32.09 kg/m2 SpO2 97% Physical Exam: Physical Exam Constitutional: He appears well-developed and well-nourished. No distress. Cardiovascular: Normal rate and regular rhythm. Pulmonary/Chest: Effort normal and breath sounds normal. Abdominal: Soft. Bowel sounds are normal. He exhibits no distension and no mass. There is no tenderness. Genitourinary: Penis normal. Neurological: He is alert. Skin: Skin is warm and dry. Nursing note and vitals reviewed. Lab Results: No results found for this visit on 11/17/14. Imaging Results: Imaging Results None Emergency Department Course: Patient urinated 100 mL while in the ED. A bladder scan was subsequently performed and demonstrated a 540 mL residual. I spoke with the patient's urologist, Dr. Darling, who recommends placement of a urethral catheter. Patient is to remove the catheter the morning of his urology appointment. Procedures: Procedures Assessment: (408.04) Urinary retention (primary encounter diagnosis) Plan: As noted above. Return to the emergency department if any further concerning symptoms or problems with the catheter. Otherwise, follow with urology next week as scheduled. Discharge Prescriptions None Vernon Florian, ZHOU 11/17/14 1732 Deloris Del Real RN - 11/17/2014 5:15 PM CDT Up voided another time about 100ml denies any pain Ilsa Waggoner HUC - 11/17/2014 4:59 PM CDT Contacted [facility] Strain Technician at [phone], spoke with Alicia. Dr. Darling transferred to Alberto Barger Deloris Del Real RN - 11/17/2014 4:26 PM CDT Botox injection beginning of the month for bladder incontinence trouble last week with frequency ? Small bladder infection. Yesterday and today frequently going to the bathroom not completely empting his bladder. Deloris Del Real RN - 11/17/2014 4:25 PM CDT Voided approx 100ml Minda Brown RN - 11/17/2014 4:08 PM CDT Had botox injection on November 05. Now not sure if emptying bladder and having urinary frequency. Voided during the past hour. documented in this encounter Plan of Treatment Not on filedocumented as of this encounter Goals Goal Patient Goal Associated Recent Patient-Stated? 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 Note: Formatting of [...] as of this encounter Visit Diagnoses Diagnosis Urinary retention - Primary Retention of urine, unspecified documented in this encounter Administered Medications Inactive Administered Medications Medication Order MAR Action Action Date Dose Rate Site lidocaine jelly (XYLOCAINE) 2 % Given 11/17/2014 5:29 PM CDT urojet Topical, ONCE, 1 dose, On Sat11/17/14 at 1730 documented in this encounter Active and Recently Administered Medications Times are shown in CDT. Scheduled Medication Order 11/15/2014 11/16/2014 11/17/2014 lidocaine jelly (XYLOCAINE) 2 % urojet (COMPLETED) 1729 (Given - Provider: Deloris Del Real RN) Topical, ONCE, 1 dose, Sat11/17/14 at 1730 documented in this encounter Orders Medications Ordered That Might Not Have Count Last Ord ered Date First Ordered Date Been Administered lidocaine jelly (XYLOCAINE) 2 % urojet 1 5 documented in this encounter Care Teams Computer Science Intern Relationship Specialty Start Date End Date YESENIA Bedolla - General Family Medicine 06/04/11 01/03/17 Deirdre Mosher MD [address] [phone] Jessica Chua RN Belt Machine Operator Family Medicine 09/04/13 11/29/14 Марина RN Shanice Zarco MD Physician Other Ophthalmology 10/05/[address] [place] [address] Chuy Falcon, Physician Other Cardiology 07/16/14 3 [place], [place] [address] Will Dubois MD Physician Other Dermatology 09/21/14 [facility] [address] [place] [address] Yehuda Quintero MD Physician Other Pain Management 11/02/14 [facility] 9550 [facility] 100 [place], [place] [address] Agustín Ross MD Physician Other Orthopedic Surgery 11/02/14 [facility] [address] [facility] 201 [place] [address] Marshal Acosta Other Dental Forensic Nurse 10/05/[address] [place] [phone] Posey Other Audiology 10/05/13 [place], [place] documented as of this encounter
--- OUTSIDE RECORDS SUMMARY | 2022-06-07 20:56 | XMS_ITS | Encounter Summary ---
:1935 Author Organization [employer] Address [address] [address] Phone Care Team Providers Name Role Phone Deirdre Bedolla MD Primary Care Provider [phone] Jessica Chua RN Unavailable [phone] Shanice Zarco MD Unavailable Chuy Falcon MD Unavailable Will Dubois MD Unavailable Reason for Visit Reason Onset Date Comments Refill Request 10/12/2014 tramadol Encounter Details Date Type Department Care Team Description 10/12/2014 Refill [facility] Toma Refill Request (tramadol) FAMILY MEDICINE Jessica Parish RN 2023 [facility] [phone] FAHEEM Burdick [address] (Work) [phone] Social History Tobacco Use Types Packs/Day Years [...] (ULTRAM) 50 MG One at night as 30 Tab 0 015 02/17/2015 tablet needed. documented in this encounter Miscellaneous Notes Telephone Encounter - Jessica Chua - 10/12/2014 11:41 AM CDT Spoke with patient's . Tramadol does not have any refills on it. Will submit to Deirdre Bedolla MD. [facility] as entered. documented in this encounter Plan of Treatment Not on filedocumented as of this encounter Goals Goal Patient Goal Associated Recent Patient-Stated? 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 Note: Formatting of this [...] (ULTRAM) 50 MG One at night as 09/22/2014 0 10/12/2014 tablet needed. documented as of this encounter Care Teams Fan Engine Engineer Relationship Specialty Start Date End Date Chioma PCP - General Family Medicine 06/04/11 01/03/17 Deirdre Mosher MD [address] [address] Jessica Chua RN Rn Medication Family Medicine 09/04/13 11/29/14 Марина RN Shanice Zarco MD Physician Other Ophthalmology 10/05/[address] [place] [address] Chuy Falcon, Physician Other Cardiology 07/16/14 3 [place], [place] [address] Will Dubois MD Physician Other Dermatology 09/21/14 [facility] [address] [place] [address] Marshal Acosta Other Dental Bowling Ball Molder 10/05/[address] [place] [id number] Posey Other Audiology 10/05/13 [place], [place] documented as of this encounter
--- OUTSIDE RECORDS SUMMARY | 2022-06-07 20:56 | XMS_ITS | Encounter Summary ---
:1935 Author Organization [employer] Address [address] [address] Phone Care Team Providers Name Role Phone Deirdre Bedolla MD Primary Care Provider [phone] Jessica Chua RN Unavailable [phone] Shanice Zarco MD Unavailable Chuy Falcon MD Unavailable Will Dubois MD Unavailable Encounter Details Date Type Department Care Team Description 10/22/2014 [facility], [facility] Phlebotomy HEALTH/NURSE VISIT Center Laboratory Pbb [address] [place] [address] [address] [place] [address] [place] [address] Social History Tobacco Use Types [...] 04/18/2014 Activities documented as of this encounter Plan of Treatment Not on filedocumented as of this encounter Goals Goal Patient Goal Associated Recent Patient-Stated? 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 Note: Formatting of this [...] Procedure Name Priority Date/Time Associated Comments Diagnosis LIPID PROFILE 10/22/2014 9:35 Results for this AM CDT procedure are i n the results section. ALANINE AMINOTRANSFERASE 10/22/2014 9:35 Results for this AM CDT procedure are i n the results section. ASPARTATE 10/22/2014 9:35 Results for this AMINOTRANSFERASE AM CDT procedure a re in the results section. documented in this encounter Results AST (10/22/2014 9:35 AM CDT) athologist [facility] AST(SGOT) 20 10 - 40 10/22/2014 [facility] IU/L 10:06 AM CDT LABORATORY Specimen Anatomical Collection Method Collection Time Receive d Time (Source) Location / / Volume Laterality 10/22/2014 9:35 AM 5 9:47 CDT AM CDT Chuy Falcon MD EC CHEMISTRY ORDERABLES Performing Organization Address [facility] Phon e Number [place] [phone] LABORATORY [facility] LABORATORY ALT (10/22/2014 9:35 AM CDT) athologist Signature ALT(SGPT) 31 6 - 40 IU/L 10/22/2014 [facility] 10:06 AM CDT LABORATORY Specimen Anatomical Collection Method Collection Time Receive d Time (Source) Location / / Volume Laterality 10/22/2014 9:35 AM 5 9:47 CDT AM CDT Chuy Falcon MD EC CHEMISTRY ORDERABLES Performing Organization Address [facility] Phon e Number [place] [phone] [place] [phone] LABORATORY [facility] LABORATORY (ABNORMAL) LIPID PROFILE (10/22/2014 9:35 AM CDT) athologist Signature Cholesterol 123 114 - 200 10/22/2014 [facility] mg/dL 10:06 AM CDT LABORATORY Comment: Total Cholesterol Reference Ranges Desirable: ? <200 ?mg/dL Borderline High: ?? 200-239 mg/dL High: ?>239 ?mg/ dL TRIGLYCERIDE 130 10 - 200 mg/dL 10/22/2014 10:06 AM CD T [facility] HDL CHOLESTEROL 33 (L) 40 - 60 mg/dL 10/22/2014 10:06 AM CDT [facility] LDL- CALCULATED 64 mg/dL 10/22/2014 10:06 AM CDT [facility] Comment: LDL Cholesterol Reference Ranges Optimal: ?<100 ? mg/dL Near Optimal: ? 100-129 ??mg/dL Borderline High: ??130-159 ??mg/dL High: ? 160-189 ??mg/dL Very High: ?>189 ? mg/dL Specimen Anatomical Collection Method Collection Time Receive d Time (Source) Location / / Volume Laterality 10/22/2014 9:35 AM 5 9:47 CDT AM CDT Cuhy Falcon MD EC CHEMISTRY ORDERABLES ABN Performing Organization Address City/State/ZIP Code Phon e Number [facility] [address] [place] [address] 56 401 LABORATORY [facility] documented in this encounter Visit Diagnoses Not on filedocumented in this encounter Care Teams Cabinet And Trim Installer Relationship Specialty Start Date End Date YESENIA Bedolla - General Family Medicine 06/04/11 01/03/17 Deirdre Mosher MD [address] [phone] Jessica Chua RN Health And Physical Education Professor Family Medicine 09/04/13 11/29/14 [facility]ORDALIZA Parish Shanice Zarco MD Physician Other Ophthalmology 10/05/[address] [place] [phone] Chuy Falcon, Physician Other Cardiology 07/16/[address] [place] [address] [phone] Will Dubois MD Physician Other Dermatology 09/21/14 [facility] [address] [place] [address] Marshal Acosta Other Dental Paperboard Machine Operator 10/05/[address] [place] [address] [address] Posey Other Audiology 10/05/13 [place], [place] documented as of this encounter
--- OUTSIDE RECORDS SUMMARY | 2022-06-07 20:56 | XMS_ITS | Encounter Summary ---
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 Note: Formatting of [...] Diagnosis Comme nts EXTERNAL CARDIOLOGY DOCUMENTATION Routine 07/20/2014 documented in this encounter Results EXTERNAL CARDIOLOGY DOCUMENTATION (07/20/2014) Narrative This result has an attachment that is no t available. Pcp Elsewhere IP ECG ORDERABLES documented in this encounter Visit Diagnoses Not on filedocumented in this encounter Care Teams Inventory Control Assistant Relationship Specialty Start Date End Date Chioma PCP - General Family Medicine 06/04/11 01/03/17 Deirdre Mosher MD [address] [phone] Jessica Chua RN Merchandise Supervisor Family Medicine 09/04/13 11/29/14 E, RN Shanice Zarco MD Physician Other Ophthalmology 10/05/[address] [place] [phone] Chuy Falcon, Physician Other Cardiology 07/16/[address] [place] [address] [phone] Will Dubois MD Physician Other Dermatology 09/21/14 [facility] [address] [place] [phone] Yehuda Quintero MD Physician Other Pain Management 11/02/14 [facility] [address] [address] Agustín Ross MD Physician Other Orthopedic Surgery 11/02/14 [facility] [address] [place] [address] Marshal Acosta Other Dental Business Management Consultant 10/05/[address] [place] [address] Posey Other Audiology 10/05/13 [place], [place] documented as of this encounter
--- OUTSIDE RECORDS SUMMARY | 2022-06-07 20:56 | XMS_ITS | Encounter Summary ---
:1935 Author Organization [employer] Address [address] [address] Phone Care Team Providers Name Role Phone Deirdre Bedolla MD Primary Care Provider [phone] Jessica Chua RN Unavailable [phone] Shanice Zarco MD Unavailable Chuy Falcon MD Unavailable Will Dubois MD Unavailable Yehuda Quintero MD Unavailable Agustín Ross MD Unavailable Reason for Visit Reason Comments Refill Request gabapentin-LM Encounter Details Date Type Department Care Team Description 11/18/2014 Refill [facility] Riaz Bedolla efill Request FAMILY MEDICINE Deirdre Mosher MD (gabapentin-LM) 2023 [facility] [address] [address] [place], [place] [address] (Wo rk) Social History Tobacco Use Types [...] Refills Start Date End Date gabapentin (NEURONTIN) 300 Take 2 Caps by 810 Cap 3 11/1902/01/2016 MG capsule mouth three times a day. documented in this encounter Miscellaneous Notes Telephone Encounter - Mary Jane Domingo RN - 11/19/2014 10:03 AM CDT Spoke with patient's spouse who states he is currently taking Gabapentin 300mg 2 tablets 3 times daily. She stated patient is unable to hear on the telephone. Telephone Encounter - Gloria Eduardo RN - 11/19/2014 12:36 AM CDT NCL - please contact patient for 2nd attempt on 11/19/14 to verify dosing for Gabapentin. Thank you. Telephone Encounter - Arlette Floyd RN - 11/18/2014 5:53 PM CDT Left a message for the patient to clarify how he is taking gabapentin. The EMR lists gabapentin 300 mg, take 2 caps po three times daily, and is historic. The pharmacy sends a request for gabapentin 300 mg, take 3 caps po three times daily. Telephone Encounter - Utility, Refill Wizard - 11/18/2014 9:10 AM CDT gabapentin (NEURONTIN) 300 MG capsule [Pharmacy Med Name: Gabapentin Oral Capsule 300 MG] - WARNING: The requested medication was previously set to Historic on 01/06/2014 by NAPOLEON HINOJOSA - REFILL: 11 months (if warnings resolved) - PROTOCOL: Neurology: Anticonvulsants - Gabapentin - RATIONALE: This refill should last until the patient is due for an office visit. - LAST QUALIFYING VISIT WITH DEIRDRE BEDOLLA: 09/22/2014 - NEXT SCHEDULED VISIT IN FAMILY PRACTICE: 12/15/2014 - MEDICATION STARTED: 10/10/2012 - LAST REFILLED: Not available (Last set to Historic on 01/06/2014 by NAPOLEON HINOJOSA Sig: Take 2 Caps by mouth three times a day. (changed)) - LAST FILL DATE FROM PHARMACY: 02/21/2014 Powered by [employer], Reference: [id number], 11/18/2014 9:10:19 AM CDT, Pool: KLEVER ([id number]) documented in this encounter Plan of Treatment Not on filedocumented as of this encounter Goals Goal Patient Goal Associated Recent Patient-Stated? 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 Note: Formatting of [...] Date gabapentin (NEURONTIN) Take 2 Caps by 01/06/2014 300 MG capsule mouth three times a day. documented as of this encounter Care Teams Stocking Inspector Relationship Specialty Start Date End Date Chioma, PCP - General Family Medicine 06/04/11 01/03/17 Deirdre Mosher MD [address] [phone] Jessica Chua RN Float Operator Family Medicine 09/04/13 11/29/14 E RN Shanice Zarco MD Physician Other Ophthalmology 10/05/13 [address] [place] [phone] Chuy Falcon, Physician Other Cardiology 07/16/14 3 [place], [place] [phone] Will Dubois MD Physician Other Dermatology 09/21/14 [facility] [address] [place] [address] Yehuda Quintero MD Physician Other Pain Management 11/02/14 [facility] 9550 [facility] 100 [place] [address] Agustín Ross MD Physician Other Orthopedic Surgery 11/02/14 [facility] [address] [facility] 201 [place] [address] Marshal Acosta Other Dental Heel Stiffener 10/05/13 [address] [place], [place] [address] Dr Posey Other Audiology 10/05/13 [place], [place] documented as of this encounter
--- OUTSIDE RECORDS SUMMARY | 2022-06-07 20:56 | XMS_ITS | Encounter Summary ---
:1935 Author Organization [facility] [employer] Address [address] [address] Phone Care Team Providers Name Role Phone Deirdre Bedolla MD Primary Care Provider [phone] Jessica Chua RN Unavailable [phone] Shanice Zarco MD Unavailable Chuy Falcon MD Unavailable Will Dubois MD Unavailable Reason for Visit Reason Comments Suture Removal left eyebrow Encounter Details Date Type Department Care Team Description 10/14/2014 Office Visit [facility] for suture URGENT CARE removal (Primary Dx) [address] [place] [address] Social History Tobacco Use Types Packs/Day Years Used Date Smoking Tobacco: Never Smokeless Tobacco: Never Alcohol Use Standard Drinks/Week Comments No 0 (1 standard drink = 0.6 oz pure alcoho l) Sex Assigned at Date Recorded Not on file documented as of this encounter Last Filed Vital Signs Vital Sign Reading Time Taken Comments Blood Pressure 106/73 10/14/2014 4:26 PM CDT Pulse 75 10/14/2014 4:26 PM CDT Temperature 37.1 ??C (98.7 ??F) 10/14/2014 4:26 PM CDT Respiratory Rate - - Oxygen Saturation - - Inhaled Oxygen Concentration - - Weight - - Height - - Body Mass Index - - documented in this encounter Functional Status Functional Status Response Date of Assessment Patient's Vision Adequate to Safely Complete Daily No 04/18/2014 Activities Cognitive Status Response Date of Assessment Patient's Judgment Adequate to Safely Complete Daily No 04/18/2014 Activities documented as of this encounter Progress Notes Suyapa Bassett RN - 10/14/2014 4:27 PM CDT Patient presents with: Suture Removal: left eyebrow Simon Castillo is a 79 year old male who presents to Urgent Care 10/14/2014 for suture removal. He suffered a superficial to his face and forehead 7 days, as a result of an injury at home and it was repaired at that time. He has had no problems with the wound and now presents to have the sutures removed. 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 CAD (coronary artery disease) Comment:with history of HI and stent placement Hyperlipidemia Diverticulosis Colon polyp Past Surgical History: COLONOSCOPY 05/02/2006 Comment:Sadie ADAMS, Junito Ghotra CORONARY ANGIOPLASTY WITH STENT PLACEMENT BACK SURGERY Comment:L4 laminectomy, multiple level cervical fusion JOINT REPLACEMENT Left Comment:left hip SHOULDER SURGERY Right Comment:right rotator cuff CATARACT REMOVAL TONSILLECTOMY AND ADENOIDECTOMY APPENDECTOMY HEMORRHOID SURGERY SPINE SURGERY 10/15/2013 Comment:Spinal Cord Stimulator (Medtronic), Dr Ramey at [facility] CMPLX CMG/VOID PRESSURE STUDY 04/07/2014 Comment:Dr. Ruiz Penicillins Current Outpatient Prescriptions: potassium chloride (KAYCIEL) 20 MEQ/15ML (10%) liquid, Take 15 mL by mouth one time a day. Take withfood; do not take liquid full strength, must be diluted in 2-6 parts of fluid. traMADol (ULTRAM) 50 MG tablet, One at night as needed. DULoxetine (CYMBALTA) 60 MG delayed release capsule, TAKE ONE CAPSULE BY MOUTH ONE TIME DAILY DO NOTCRUSH pantoprazole (PROTONIX) 40 MG delayed-release tablet, TAKE ONE TABLET BY MOUTH ONE TIME DAILY DO NOTCRUSH clopidogrel (PLAVIX) 75 MG tablet, TAKE ONE TABLET BY MOUTH ONE TIME DAILY DULoxetine (CYMBALTA) 60 MG delayed release capsule, TAKE ONE CAPSULE BY MOUTH ONE TIME DAILY DO NOTCRUSH amLODIPine (NORVASC) 5 MG tablet, TAKE ONE TABLET BY MOUTH ONE TIME DAILY solifenacin (VESICARE) 10 MG tablet, Take 1 Tab by mouth one time a day. celecoxib (CELEBREX) 200 MG capsule, Take 1 Cap by mouth one time a day. Indications: Back Pain finasteride (PROSCAR) 5 MG tablet, Take 1 Tab by mouth one time a day. Do not crush. atorvaSTATin (LIPITOR) 40 MG tablet, Take 1 Tab by mouth at bedtime. Ascorbic Acid (VITAMIN C) 500 MG CAPS, Take 500 mg by mouth one time a day. potassium chloride CR (K-DUR, KLOR-CON M) 20 MEQ tablet, TAKE ONE TABLET BY MOUTH ONE TIME DAILY gabapentin (NEURONTIN) 300 MG capsule, Take 2 Caps by mouth three times a day. tamsulosin (FLOMAX) 0.4 MG 24 hour capsule, Take 1 Cap by mouth one time a day. Capsules should be swallowed whole; do not crush, chew, or open atenolol (TENORMIN) 25 MG tablet, Take 1 Tab by mouth one time a day. polyethylene glycol 3350 (MIRALAX) powder, MIX 17 GRAMS (ONE CAPFUL) IN LIQUID AND DRINK EVERY DAY FORCONSTIPATION. Multiple Vitamin (MULTIVITAMIN) tablet, Take 1 Tab by mouth one time a day. sennosides-docusate sodium (SENOKOT-S) 8.6-50 MG per tablet, Take 2 Tabs by mouth one time a day. ASPIRIN LOW DOSE 81 MG tablet, 81 mg 1 tablet, ORAL, DAILY, 08/05/09 14:22:55 No current facility-administered medications for this visit. Smoking Status: Never Smoker Smokeless Status: Never Used Alcohol Use: No ROS: is entirely negative PE: Blood pressure 106/73, pulse 75, temperature 37.1 ??C (98.7 ??F), temperature source Tympanic. General: pleasant, cooperative, NAD SKIN: the wound is clean dry and intact. There is not any sign of secondary infection. The sutures were removed without any difficulty. Steri-strips were not placed. Bacitracin and bandage then applied. ASSESSMENT: suture removal removal PLAN: Routine wound cares. Follow up if any problems such as redness, drainage, pain or wound breakdown. Patient/Parent verbalizes understanding and agreement with plan. documented in this encounter Plan of Treatment Not on filedocumented as of this encounter Goals Goal Patient Goal Associated Recent Patient-Stated? 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 Note: Formatting of this [...] as of this encounter Visit Diagnoses Diagnosis Visit for suture removal - Primary Encounter for removal of sutures documented in this encounter Care Teams Lithographic Artist Relationship Specialty Start Date End Date Chioma PCP - General Family Medicine 06/04/11 01/03/17 Deirdre Mosher MD [address] [phone] Jessica Chua RN Body Press Operator Family Medicine 09/04/13 11/29/14 E, RN Shanice Zarco MD Physician Other Ophthalmology 10/05/[address] [place] [phone] Chuy Falcon, Physician Other Cardiology 07/16/14 [address] [place], [place] [phone] Will Dubois MD Physician Other Dermatology 09/21/14 [facility] [address] [place] [phone] Marshal Acosta Other Dental Fringe Maker 10/05/13 [address] [place], [place] [phone] Dr Posey Other Audiology 10/05/13 [place], [place] documented as of this encounter
--- OUTSIDE RECORDS SUMMARY | 2022-06-07 20:56 | XMS_ITS | Encounter Summary ---
:1935 Author Organization [employer] Address [address] [address] Phone Care Team Providers Name Role Phone Deirdre Bedolla MD Primary Care Provider [phone] Shanice Zarco MD Unavailable Chuy Falcon MD Unavailable Will Dubois MD Unavailable Yehuda Quintero MD Unavailable Agustín Ross MD Unavailable Alysia Claudio RN Unavailable Reason for Visit Reason Onset Date Comments Results 12/15/2014 Encounter Details Date Type Department Care Team Description 12/15/2014 Telephone [facility] FAMILY Jerry Hurley, REINA Results MEDICINE 2023 [place], [place] [address] Social History Tobacco Use Types Packs/Day Years [...] Miscellaneous Notes Telephone Encounter - Farhana Hurley, SENIOR TRIAL ATTORNEY - 12/15/2014 1:47 PM CDT Left detailed message on machine. Patient instructed to call back if has any questions. Telephone Encounter - Farhana Hurley LPN - 12/15/2014 1:47 PM CDT ----- Message from Deirdre Bedolla MD sent at 12/15/2014 12:24 PM CDT ----- XR cleared up. documented in this encounter Plan of Treatment Not on filedocumented as of this encounter Goals Goal Patient Goal Associated Recent Patient-Stated? 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 Note: Formatting of this [...] on filedocumented in this encounter Care Teams Grey Washer Relationship Specialty Start Date End Date Chioma PCP - General Family Medicine 06/04/11 01/03/17 Deirdre Mosher MD [address] [address]69[address] Shanice Zarco MD Physician Other Ophthalmology 10/05/[address] [place] [phone] Chuy Falcon, Physician Other Cardiology 07/16/14 523 [place], [place] [phone] Will Dubois MD Physician Other Dermatology 09/21/14 [facility] [address] [place] [address] Yehuda Quintero MD Physician Other Pain Management 11/02/14 [facility] 9550 [facility] 100 [place] [address] Agustín Ross MD Physician Other Orthopedic Surgery 11/02/14 [facility] [address] [place] [address] Alysia Claudio, RN RN Checker Stocker 11/30/14 02/10/15 Marshal Acosta Other Dental Driver Operator 10/05/[address] [place] [address] Posey Other Audiology 10/05/13 [place], [place] documented as of this encounter
--- OUTSIDE RECORDS SUMMARY | 2022-06-07 20:56 | XMS_ITS | Encounter Summary ---
:1935 Author Organization [employer] Address [address] [address] Phone Care Team Providers Name Role Phone Deirdre Bedolla MD Primary Care Provider [phone] Jessica Chua RN Unavailable [phone] Shanice Zarco MD Unavailable Chuy Falcon MD Unavailable Will Dubois MD Unavailable Yehuda Quintero MD Unavailable Agustín Ross MD Unavailable Reason for Visit Reason Comments Care Coordination Program Care Plan Update Encounter Details Date Type Department Care Team Description 11/02/[address] [facility] FAMILY MEDICINE Jessica Parish RN Program; Care Plan 2023 [facility] [phone] (Update) [place] [address] (Work) [phone] Social History Tobacco Use Types Packs/Day Years [...] documented as of this encounter Progress Notes Jessica Chua - 11/02/2014 9:56 AM CDT Images from the original note were not included. ## See Care Plan in SnapShot. Go to SnapShot -> in report look up type care plan choose Amb Care Coordination Care Plan. ## Mailed blank copy of care coordination health risk assessment. Updated care plan and sent to patient. Resources: Senior Linkage Line and Bladimir handout on types of cholesterol labs. documented in this encounter Plan of Treatment Not on filedocumented as of this encounter Goals Goal Patient Goal Associated Recent Patient-Stated? 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 Note: Formatting of this [...] Primary documented in this encounter Care Teams Organ Pipe Finisher Relationship Specialty Start Date End Date Chioma PCP - General Family Medicine 06/04/11 01/03/17 Deirdre Mosher MD [address] [phone] Jessica Chua RN Senior Contracts Manager Family Medicine 09/04/13 11/29/14 Марина RN Shanice Zarco MD Physician Other Ophthalmology 10/05/[address] [place] [phone] Chuy Falcon, Physician Other Cardiology 07/16/14 [address] [place], [place] [phone] Will Dubois MD Physician Other Dermatology 09/21/14 [facility] [address], [place] [address] Yehuda Quintero MD Physician Other Pain Management 11/02/14 [facility] 9550 [facility] 100 [place] [address] Agustín Ross MD Physician Other Orthopedic Surgery 11/02/14 [facility] [address] [place] [address] Marshal Acosta Other Dental Medical And Scientific Illustrator 10/05/[address] [place] [phone] Posey Other Audiology 10/05/13 [place], [place] documented as of this encounter
--- OUTSIDE RECORDS SUMMARY | 2022-06-07 20:56 | XMS_ITS | Encounter Summary ---
:1935 Author Organization [employer] [facility] [employer] [facility] [facility] Address [address] [address] Phone Care Team Providers Name Role Phone Deirdre Bedolla MD Primary Care Provider [phone] Shanice Zarco MD Unavailable Chuy Falcon MD Unavailable Will Dubois MD Unavailable Yehuda Quintero MD Unavailable Agustín Ross MD Unavailable Alysia Claudio RN Unavailable Reason for Visit Reason Onset Date Comments Care Coordination Program 12/14/2014 Joaquín 5 Pre-visit call 12/14/2014 Encounter Details Date Type Department Care Team Description 12/14/[address] [facility]-Alysia Marquez Care Coordination FAMILY MEDICINE RN Program ([facility] [address] [employer] [phone] 12/15/14); Pre-visit call FAHEEM GUERRERO [phone] (Work) [phone] Social History Tobacco Use Types Packs/Day Years [...] this encounter Miscellaneous Notes Telephone Encounter - ClaudioAlysia RN - 12/14/2014 11:23 AM CDT CCP Previsit Call Pt has appt with Dr. Yanes on 12/15/14 @ 1015 for 3 mo fu diabetes. Any visits with a specialists or other physicians since your last visit (09/22/14)- Yes 09/28/14-Dr. Lisset Saez urologist-note under media tab. Scheduled for botox 11/02 but I don't see any documents about that. According to ED note, had on 11/05/14. 10/07/14 and 10/14/14-[facility] Facial laceration and then removal of sutures. 10/12/14 and 11/09/14-Suyapa Prescott ASSESSMENT: Nutrition and Meal Planning: Weight is down about 2#, likely related to patient eating smaller portions. Cautioned against rapid weight change. Working on eating regular meals and including more veggies. Patient is still concerned about eating certain fruits that he has heard are too 'sugary'. Reassured that the primary concern is to eat appropriate portions and variety vs. Avoiding specific foods. Also discussed ways to incorporate favorite foods such as desserts with minimal impact on blood glucoses. Glucose Control: A1c is within appropriate range for age and health. Would not aim for overly low level. Physical Activity: Walking out to mailbox daily, but pain is limiting. Gets frustrated that he fallsasleep in his chair often during the day, and then has trouble sleeping at night. Discussed benefitsof adding some chair exercises and information provided. Barriers to Learning: limitations due to aging PLAN: Patient reminded of yearly diabetes education and nutrition therapy benefits and encourage to stay up to date on his diabetes care. Patient-identified goals: Patient Instructions My Plan: 1. Keep doing exercises as tolerated. Add some chair exercises each day. 2. Healthy eating: -choose healthy foods, -eat the right amounts and -space food through the day. 10/18/14-[facility] Document under media tab 11/17-ED Urinary retention. Catheter placed 11/25/14-Dr. [facility] urologist. Notes under media tab. Catheter placed. 11/27/14 Admitted to hospital in [place] for pneumonia. Any changes in your health or behavior - Unable to contact patient. Objectives/Goals for the visit. What are the 2-3 questions or issues? CXR per suggestion of Landon GARCIA-AWV, diabetic eye exam (Shanice Zarco) documented in this encounter Plan of Treatment Not on filedocumented as of this encounter Goals Goal Patient Goal Associated Recent Patient-Stated? 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 Note: Formatting of [...] Primary documented in this encounter Care Teams Chief Nuclear Medicine Technologist Relationship Specialty Start Date End Date Chioma PCP - General Family Medicine 06/04/11 01/03/17 Deirdre Mosher MD [address] [id number] Shanice Zarco MD Physician Other Ophthalmology 10/05/[address] [place] [phone] Chuy Falcon, Physician Other Cardiology 07/16/14 [address] [place], [place] [phone] Will Dubois MD Physician Other Dermatology 09/21/14 [facility] [address] [place] [phone] Yehuda Quintero MD Physician Other Pain Management 11/02/14 [facility] 95[address] [facility] 100 [place], [place] [phone] Agustín Ross MD Physician Other Orthopedic Surgery 11/02/14 [facility] [address] [place] [phone] Alysia Claudio, RN RN Dog Daycare Provider 11/30/14 02/10/15 Marshal Acosta Other Dental Dental Office Receptionist 10/05/[address] [place] [id number] Posey Other Audiology 10/05/13 [place], [place] documented as of this encounter
--- OUTSIDE RECORDS SUMMARY | 2022-06-07 20:56 | XMS_ITS | Encounter Summary ---
:1935 Author Organization [facility] [employer] Address [address] [address] Phone Care Team Providers Name Role Phone Deirdre Bedolla MD Primary Care Provider [phone] Jessica Chua RN Unavailable [phone] Shanice Zarco MD Unavailable Chuy Falcon MD Unavailable Will Dubois MD Unavailable Reason for Visit Reason Comments Facial Laceration Encounter Details Date Type Department Care Team Description 10/07/2014 Office Visit [facility]-Counts include [facility] beds at the [facility], [facility] F acial laceration, URGENT CARE initial encounter [id number] (Primary Dx) [place] [address] Social History Tobacco Use Types Packs/Day Years Used Date Smoking Tobacco: Never Smokeless Tobacco: Never Alcohol Use Standard Drinks/Week Comments No 0 (1 standard drink = 0.6 oz pure alcoho l) Sex Assigned at Date Recorded Not on file documented as of this encounter Last Filed Vital Signs Vital Sign Reading Time Taken Comments Blood Pressure 123/77 10/07/2014 7:04 PM CDT Pulse 73 10/07/2014 7:04 PM CDT Temperature 36.2 ??C (97.2 ??F) 10/07/2014 7:04 PM CDT Respiratory Rate - - Oxygen Saturation 98% 10/07/2014 7:04 PM CDT Inhaled Oxygen Concentration - - Weight - - Height - - Body Mass Index - - documented in this encounter Functional Status Functional Status Response Date of Assessment Patient's Vision Adequate to Safely Complete Daily No 04/18/2014 Activities Cognitive Status Response Date of Assessment Patient's Judgment Adequate to Safely Complete Daily No 04/18/2014 Activities documented as of this encounter Patient Instructions Patient InstructionsSudarshan Torres MD - 10/07/2014 7:28 PM CDT 1. Please follow instructions as given on discharge sheet. 2. If an antibiotic or pain medication was prescribed take it as directed. Ibuprofen/Tylenol as needed for discomfort. 3. Follow up immediately if you experience increasing pain, redness or foul smelling drainage from the laceration site. 4. Otherwise follow up as directed for suture or staple removal with URGENT CARE or your regular Provider in 7 days. 5. Patient /Parent verbalizes understanding and agreement with plan. PLEASE NOTE: The examination and treatment that you have received in Urgent Care have been rendered on an urgent basis. The examination and treatment were not intended to be a substitute for routine medical care and were not an effort to provide complete medical service. It is important that you be examined again as recommended and report any new or remaining problems at that time. It is impossible to recognize and treat all elements of injury or illness in a simple Urgent Care visit. If an xray wasdone, it has been read on a preliminary basis and final review will be made by the Radiologist. You will be notified if there were any additional findings. If labs were done, you will be informed of those results once they have ALL been reviewed, unless otherwise stated. documented in this encounter Progress Notes Sudarshan Torres MD - 10/07/2014 7:29 PM CDT Chief Complaint Patient presents with ??? Facial Laceration HPI: Simon Castillo is a 79 year old male who presents to 10/07/2014 with a jagged laceration to his left face. Occuring 1 hour, as the result of an injury at home from a blunt trauma, when he hit the corner of a table. The wound was pressure wrapped. The patient is Right hand dominant. Tetanus status: tetanus re- vaccination not indicated. He did not suffer any other injuries. PMH: Past Medical History Diagnosis Date ??? DM type 2 (diabetes mellitus, type 2) ??? Hypertension ??? 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 CAD (coronary artery disease) with history of AZ and stent placement ??? Hyperlipidemia ??? Diverticulosis ??? Colon polyp PAST SURGICAL HISTORY: Past Surgical History Procedure Laterality Date ??? Colonoscopy 05/02/2006 Sadie ADAMS, Junito Ghotra ??? Coronary angioplasty with stent placement ??? Back surgery L4 laminectomy, multiple level cervical fusion ??? Joint replacement Left left hip ??? Shoulder surgery Right right rotator cuff ??? Cataract removal ??? Tonsillectomy and adenoidectomy ??? Appendectomy ??? Hemorrhoid surgery ??? Spine surgery 10/15/2013 Spinal Cord Stimulator ([employer]), Dr Ramey at [facility] ??? Cmplx cmg/void pressure study 04/07/2014 Dr. Ruiz ALLERGIES:25 Penicillins MEDICATIONS: Current Outpatient Prescriptions Medication Sig ??? DULoxetine (CYMBALTA) 60 MG delayed release capsule TAKE ONE CAPSULE BY MOUTH ONE TIME DAILY DO NOT CRUSH ??? pantoprazole (PROTONIX) 40 MG delayed-release tablet TAKE ONE TABLET BY MOUTH ONE TIME DAILY DO NOT CRUSH ??? traMADol (ULTRAM) 50 MG tablet One at night as needed. ??? clopidogrel (PLAVIX) 75 MG tablet TAKE ONE TABLET BY MOUTH ONE TIME DAILY ??? DULoxetine (CYMBALTA) 60 MG delayed release capsule TAKE ONE CAPSULE BY MOUTH ONE TIME DAILY DO NOT CRUSH ??? amLODIPine (NORVASC) 5 MG tablet TAKE ONE TABLET BY MOUTH ONE TIME DAILY ??? solifenacin (VESICARE) 10 MG tablet Take 1 Tab by mouth one time a day. ??? celecoxib (CELEBREX) 200 MG capsule Take 1 Cap by mouth one time a day. Indications: Back Pain ??? finasteride (PROSCAR) 5 MG tablet Take 1 Tab by mouth one time a day. Do not crush. ??? atorvaSTATin (LIPITOR) 40 MG tablet Take 1 Tab by mouth at bedtime. ??? Ascorbic Acid (VITAMIN C) 500 MG CAPS Take 500 mg by mouth one time a day. ??? potassium chloride CR (K-DUR, KLOR-CON M) 20 MEQ tablet TAKE ONE TABLET BY MOUTH ONE TIME DAILY ??? gabapentin (NEURONTIN) 300 MG capsule Take 2 Caps by mouth three times a day. ??? tamsulosin (FLOMAX) 0.4 MG 24 hour capsule Take 1 Cap by mouth one time a day. Capsules should be swallowed whole; do not crush, chew, or open ??? atenolol (TENORMIN) 25 MG tablet Take [...] No current facility-administered medications for this visit. SOCIAL HISTORY: History Substance Use Topics ??? Smoking status: Never Smoker ??? Smokeless tobacco: Never Used ??? Alcohol Use: No ROS: All other systems reviewed and found to be negative PHYSICAL EXAM: VITALS:BP 123/77 Pulse 73 Temp(Src) 36.2 ??C (97.2 ??F) (Tympanic) SpO2 98% GENERAL : pleasant cooperative, in no acute distress NEURO: grossly non focal SKIN: There is a 2 cm superficial, jagged laceration to the left upper eyebrow area. controlled. Theregion distal to the laceration is normal with normal sensation. PROCEDURE NOTE: After informed consent was obtained, and a normal neurosensory/vascular/tendon/ligament/muscle exam was done, the wound was cleaned, prepped and draped in the usual fashion. Local anesthesia was achieved by performing a regional block using about 4 cc of buffered 1% lidocaine. The wound was thoroughlycleaned and no foreign body was found. It was then closed with 7 6-0, Ethilon in a simple interrupted layer fashion. Bacitracin and bandage was applied. Patient tolerated the procedure well and there were no complications. ASSESSMENT: 2 cm superficial, jagged laceration to the face, single layer repair using 7 simple interrupted using Ethilon. PLAN: 1. Please follow instructions as given on discharge sheet. 2. If an antibiotic or pain medication was prescribed take it as directed. Ibuprofen/Tylenol as needed for discomfort. 3. Follow up immediately if you experience increasing pain, redness or foul smelling drainage from the laceration site. 4. Otherwise follow up as directed for suture or staple removal with URGENT CARE or your regular Provider in 7 days. 5. Patient /Parent verbalizes understanding and agreement with plan. documented in this encounter Plan of Treatment Not on filedocumented as of this encounter Goals Goal Patient Goal Associated Recent Patient-Stated? 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 Note: Formatting of [...] Name Priority Date/Time Associated Diagnosis Comme nts REPR SUPERF WND FACE Routine 10/07/2014 7:32 PM CDT Facial lac eration, <2.5CM initial encounter documented in this encounter Visit Diagnoses Diagnosis Facial laceration, initial encounter - P rimary documented in this encounter Discontinued Medications Medication Sig Discontinue Reason Start Date End Date acetic acid-aluminum Place 10 Drops into Course of treatment 201310/07/2014 acetate (DOMEBORO OTIC) both ears every completed 2 % Solution seven days. Pump on ear cartilage vigorously for 2 minutes; let drain Fluorometholone Acetate Place 5 Drops into Course of treatment 04/0710/07/2014 0.1 % Suspension both ears every 48 completed hours as needed (for itchy ear canals.). documented as of this encounter Orders Procedures Count Last Ordered Date First Ordered Date REPR SUPERF WND FACE <2.5CM 1 10/07/2014 documented in this encounter Care Teams Clinic Receptionist Relationship Specialty Start Date End Date Chioma PCP - General Family Medicine 06/04/11 01/03/17 Deirdre Mosher MD [address] [phone] Jessica Chua RN Web Content Manager Family Medicine 09/04/13 11/29/14 Марина RN Shanice Zarco MD Physician Other Ophthalmology 10/05/[address] [place] [phone] Chuy Falcon, Physician Other Cardiology 07/16/14 [address] [place], [place] [phone] Will Dubois MD Physician Other Dermatology 09/21/14 [facility] [address] [place] [phone] Marshal Acosta Other Dental Verse Writer 10/05/[address] [place] [phone] Posey Other Audiology 10/05/13 [place], [place] documented as of this encounter
--- OUTSIDE RECORDS SUMMARY | 2022-06-07 20:56 | XMS_ITS | Encounter Summary ---
:1935 Author Organization [employer] Address [address] [address] Phone Care Team Providers Name Role Phone Deirdre Bedolla MD Primary Care Provider [phone] Jessica Chua RN Unavailable [phone] Shanice Zarco MD Unavailable Chuy Falcon MD Unavailable Will Dubois MD Unavailable Yehuda Quintero MD Unavailable Agustín Ross MD Unavailable Reason for Visit Reason Comments Diabetes Care Plan Encounter Details Date Type Department Care Team Description 11/09/2014 Office Visit [facility] Diabetes Suyapa Prescott, Type II o r unspecified Resource Program RD type diabetes mellitus [address] [place] [address] without mention of FAHEEM Burdick [address] [facility], [facility] [phone] FAHEEM BURDICK stated as uncon trolled [id number] ([facility]) (Primary Dx) Social History Tobacco Use Types Packs/Day Years Used Date Smoking Tobacco: Never Smokeless Tobacco: Never Alcohol Use Standard Drinks/Week Comments No 0 (1 standard drink = 0.6 oz pure alcoho l) Sex Assigned at Date Recorded Not on file documented as of this encounter Last Filed Vital Signs Vital Sign Reading Time Taken Comments Blood Pressure - - Pulse - - Temperature - - Respiratory Rate - - Oxygen Saturation - - Inhaled Oxygen Concentration - - Weight 95.2 kg (209 lb 12.8 oz) 11/09/2014 11:47 AM CDT Height - - Body Mass Index 31.9 09/22/2014 11:12 AM CDT documented in this encounter Functional Status Functional Status Response Date of Assessment Patient's Vision Adequate to Safely Complete Daily No 04/18/2014 Activities Cognitive Status Response Date of Assessment Patient's Judgment Adequate to Safely Complete Daily No 04/18/2014 Activities documented as of this encounter Patient Instructions Patient InstructionsPeSuyapa rosas RD - 11/09/2014 12:28 PM CDT My Plan: 1. Keep doing exercises as tolerated. Add some chair exercises each day. 2. Healthy eating: -choose healthy foods, -eat the right amounts and -space food through the day. documented in this encounter Progress Notes Suyapa Prescott RD - 11/09/2014 1:28 PM CDT Simon Castillo is a 79 year old male with type 2 diabetes. Patient is alone. Referred by Deirdre Bedolla M.D. for diabetes self management training. SUBJECTIVE: Patient's main concerns today:States they are now using smaller plates at home, and is often pre-portioning his meals at the stove. Physical Activity: Current Physical Activity: exercising daily Meal Planning: Working on eating vegetables more regularly. OBJECTIVE: Filed Vitals: 11/09/14 1147 Weight: 209 lb 12.8 oz (95.165 kg) Labs: A1C:HGA1C 7.0 09/22/2014: Lipids: CHOL 123 10/22/2014 TRIG 130 10/22/2014 HDL 33 10/22/2014 LDLC 64 10/22/2014 Kidney function: ALBCR 14 04/05/2014 CREAT 0.84 09/22/2014 GFR >60 09/22/2014 Target Blood Sugar Goals: 70-130 before meals, less than 160 two hours p.c. meals Self blood glucose monitoring over the past 3 weeks. BST/SBGM No readings brought in today Per verbal report: 100-111 Current Outpatient Prescriptions Medication Sig ??? Ascorbic Acid (VITAMIN C) 500 MG Cap Chew and swallow one tablet by mouth one time daily ??? pramipexole (MIRAPEX) 0.125 MG tablet Take 1 Tab by mouth every evening. ??? potassium chloride (KAYCIEL) 20 MEQ/15ML (10%) liquid Take 15 mL by mouth one time a day. Take with food; do not take liquid full strength, must be diluted in 2-6 parts of fluid. ??? traMADol (ULTRAM) 50 MG tablet One at night as needed. ??? DULoxetine (CYMBALTA) 60 MG delayed release capsule TAKE ONE CAPSULE BY MOUTH ONE TIME DAILY DO NOT CRUSH ??? pantoprazole (PROTONIX) 40 MG delayed-release tablet TAKE ONE TABLET BY MOUTH ONE TIME DAILY DO NOT CRUSH ??? clopidogrel (PLAVIX) 75 MG tablet TAKE [...] 1 Tab by mouth at bedtime. ??? potassium chloride CR (K-DUR, KLOR-CON M) [...] No current facility-administered medications for this visit. Educational Materials Used: [facility] education material: Arn[employer] handouts: Dining Out and Diabetes; Sick Days and Diabetes; infor on chair exercises Education Topics Taught: Physical Activity: ?? List appropriate types of exercise ?? State relationship of exercise to blood glucose ?? Discuss recommended amount and frequency of physical activity ?? State the benefits/risks of exercise and precautions to follow Getting the Most Out of Your Food Plan: ?? Nutrition, diabetes and health ?? Healthy food choices/Dietary Guidelines ?? Timing of meals and snacks ?? Dining away from home ?? Estimating portions away from home/travelling ?? Diabetes and alcohol use ASSESSMENT: Nutrition and Meal Planning: Weight is [...] amounts and -space food through the day. Education minutes spent: 60 minutes Education Start Time:1140 Education Stop Time:1235 Supervising Provider: Deirdre Bedolla M.D. Copy of chart sent to Deirdre Bedolla M.D. documented in this encounter Plan of Treatment Not on filedocumented as of this encounter Goals Goal Patient Goal Associated Recent Patient-Stated? 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 Note: Formatting [...] Name Priority Date/Time Associated Diagnosis Comme nts LAINE,RD Routine 11/09/2014 1:44 PM Type II or unspecified ONLY,INDIVIDUAL CDT type diabetes mellitus without mention of complication, not stated as uncontrolled (HCC) documented in this encounter Visit Diagnoses Diagnosis Type II or unspecified type diabetes cindy litus without mention of complication, not stated as uncontrolled - Primary documented in this encounter Orders Procedures Count Last Ordered Date First Ordered Date AURORA JANG ONLY,INDIVIDUAL 1 11/09/2014 documented in this encounter Care Teams Electrical Designer Drafter Relationship Specialty Start Date End Date Chioma PCP - General Family Medicine 06/04/11 01/03/17 Deirdre Mosher MD [address] [phone] Jessica Chua RN Estate Planner Family Medicine 09/04/13 11/29/14 Марина RN Shanice Zarco MD Physician Other Ophthalmology 10/05/[address] [place] [phone] Chuy Falcon, Physician Other Cardiology 07/16/14 [address] [place], [place] [phone] Will Dubois MD Physician Other Dermatology 09/21/14 [facility] [address] [place] [address] Yehuda Quintero MD Physician Other Pain Management 11/02/14 [facility] [address] [facility] 100 [place] [address] Agustín Ross MD Physician Other Orthopedic Surgery 11/02/14 [facility] [address] [place] [address] Marshal Acosta Other Dental Elevator Constructor Hydraulic 10/05/[address] [place] [phone] Posey Other Audiology 10/05/13 [place], [place] documented as of this encounter
--- OUTSIDE RECORDS SUMMARY | 2022-06-07 20:56 | XMS_ITS | Encounter Summary ---
:1935 Author Organization [facility] [email or web address] Address [address] [address] Phone Care Team Providers Name Role Phone Deirdre Bedolla MD Primary Care Provider [phone] Shanice Zarco MD Unavailable Chuy Falcon MD Unavailable Will Dubois MD Unavailable Yehuda Quintero MD Unavailable Agustín Ross MD Unavailable Alysia Claudio RN Unavailable Reason for Visit Reason Comments Leg Injury heavy piece of metal fell on L leg x today, bruising Encounter Details Date Type Department Care Team Description 12/17/2014 Office Visit [facility] C ontusion (Primary Dx); URGENT CARE Skin tear; [address] Need for Tdap vaccination [place] [id number] Social History Tobacco Use Types Packs/Day Years Used Date Smoking Tobacco: Never Smokeless Tobacco: Never Alcohol Use Standard Drinks/Week Comments No 0 (1 standard drink = 0.6 oz pure alcoho l) Sex Assigned at Date Recorded Not on file documented as of this encounter Last Filed Vital Signs Vital Sign Reading Time Taken Comments Blood Pressure 126/77 12/17/2014 7:42 PM CDT Pulse 89 12/17/2014 7:42 PM CDT Temperature 37.5 ??C (99.5 ??F) 12/17/2014 7:42 PM CDT Respiratory Rate - - Oxygen Saturation 99% 12/17/2014 7:42 PM CDT Inhaled Oxygen Concentration - - Weight 95.3 kg (210 lb) 12/17/2014 7:42 PM CDT Height 172.7 cm (5' 8) 12/17/2014 7:42 PM CDT Body Mass Index 31.93 12/17/2014 7:42 PM CDT documented in this encounter Functional [...] Sig Dispensed Refills Start Date End Date exnlxas-dryxsm-mfmsz Inject 0.5 mL into 5 mL 0 015 12/17/2014 pertussis (BOOSTRIX) the muscle one time 5-2.5-18.5 LF-MCG/0.5 for 1 dose. injectionIndications: Need for Tdap vaccination documented in this encounter Progress Notes Adri Obando MD - 12/17/2014 8:15 PM CDT Simon Castillo is a 79 year old male. Chief Complaint Patient presents with ??? Leg Injury heavy piece of metal fell on L leg x today, bruising HPI: Patient presents for the above today. Patient sustained an injury to his left lower leg. Patient reports that he had a metal pole fall on this earlier today, approximately 1 hour ago. He reports that he was unable to hang onto this old banker sign, and it landed on his left leg. They were concerned about infection, given his history, and presented to urgent care for evaluation today. He did have abrasions as well as a small skin tear. His did clean the area with hydrogen peroxide, etc. They presented today for evaluation as they're concerned about potential injury and are concerned about developing infection. He reports that he does not feel it is fractured, but he does have some significant b ruising and swelling as mentioned. He is followed by Deirdre Bedolla MD. He does have diabetes as well, though this is well controlled. Medical History Diagnosis Date ??? DM type 2 (diabetes mellitus, type 2) (HCC) ??? Hypertension ??? 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 CAD (coronary artery disease) with history of DC and stent placement ??? Hyperlipidemia ??? Diverticulosis ??? Colon polyp Patient Active Problem List Diagnosis ??? Hypertension ??? 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 Diabetes ??? Colon polyps ??? Hyperlipidemia ??? Heart disease ??? Disorders of bursae and tendons in shoulder region, unspecified ??? Shoulder pain ??? Dermatophytosis of nail ??? Encounter for occupational therapy ??? Aftercare following surgery of the musculoskeletal system, NEC ??? Finger stiffness ??? Epidural abscess ??? Care Coordination Program ??? BPH (benign prostatic hyperplasia) ??? Overactive bladder ??? History of basal cell carcinoma ??? Neurogenic bladder Past Surgical History Procedure Laterality Date ??? Colonoscopy 05/02/2006 Sadie ADAMS, Junito Ghotra ??? Coronary angioplasty with stent placement ??? Back surgery L4 laminectomy, multiple level cervical fusion ??? Joint replacement Left left hip ??? Shoulder surgery Right right rotator cuff ??? Cataract removal ??? Tonsillectomy and adenoidectomy ??? Appendectomy ??? Hemorrhoid surgery ??? Spine surgery 10/15/2013 Spinal Cord Stimulator (Lengowtronic), Dr Ramey at [facility] ??? Cmplx cmg/void pressure study 04/07/2014 Dr. Ruiz Current Outpatient Prescriptions Medication Sig ??? yiccrjd-oliesu-qpdmd pertussis (BOOSTRIX) 5-2.5-18.5 LF-MCG/0.5 injection Inject 0.5 mL into themuscle one time for 1 dose. ??? FLUoxetine (PROZAC) 20 MG capsule Take 1 Cap by mouth one time a day. ??? Hydrocodone-Acetaminophen (VICODIN) 5-300 MG Tab Take by mouth. 1 po at night as needed for pain. ??? gabapentin (NEURONTIN) 300 MG capsule Take [...] tablet One at night as needed. ??? pantoprazole (PROTONIX) 40 MG delayed-release tablet TAKE ONE TABLET BY MOUTH ONE TIME DAILY DO NOT CRUSH ??? clopidogrel (PLAVIX) 75 MG tablet TAKE ONE TABLET BY MOUTH ONE TIME DAILY ??? amLODIPine (NORVASC) 5 MG tablet TAKE ONE TABLET BY MOUTH ONE TIME DAILY ??? celecoxib (CELEBREX) 200 MG capsule Take [...] TABLET BY MOUTH ONE TIME DAILY ??? tamsulosin (FLOMAX) 0.4 MG 24 hour [...] mg 1 tablet, ORAL, DAILY, 08/05/09 14:22:55 ??? DULoxetine (CYMBALTA) 60 MG delayed release capsule TAKE ONE CAPSULE BY MOUTH ONE TIME DAILY DO NOT CRUSH ??? solifenacin (VESICARE) 10 MG tablet Take 1 Tab by mouth one time a day. No current facility-administered medications for this visit. Allergies Allergen Reactions ??? Penicillins No family history on file. Patient Active Problem List Smoking status ??? Never Smoker Smokeless tobacco ??? Never Used Patient Active Problem List Alcohol Use No ROS: is otherwise as per HPI. No fever, no chills. Physical Exam: Filed Vitals: 12/17/141941 BP: 126/77 Pulse: 89 Temp: 37.5 ??C (99.5 ??F) TempSrc: Tympanic Height: 5' 8 (1.727 m) Weight: 210 lb (95.255 kg) SpO2: 99% General: patient is alert and oriented, in NAD. HEENT: head appears atraumatic, normocephalic. Sclera are anicteric. Skin: There is a contusion, left mid nunez with abrasions as well as a linear skin tear. There is no evidence of erythema or drainage. Neuro: nonfocal, grossly intact. Psych: mood and affect are appropriate. 1. (924.9) Contusion (primary encounter diagnosis) Plan: XR TIBIA AND FIBULA LEFT 2 VIEWS Treat supportively. At this present, I provided reassurance to the patient. I did do an x-ray, but I really have a low suspicion that there is a fracture there. I would like him to follow-up with his primary care provider in one week for reassessment. I've also counseled them to monitor for any evidence of erythema, in light of his diabetes as well. Discussed with the family that once the skin area is open, there is always a risk for development of infection, to watch the wound carefully and to certainly follow-up should anything worsen. Nursing staff will irrigate the wound and place a dressing, and patient will follow-up in one week, or sooner anytime with any questions, concerns prior to then. 2. (879.8) Skin tear Plan: as above. 3. (V06.1) Need for Tdap vaccination Plan: ebxefgv-esysyg-ilhek pertussis (BOOSTRIX) 5-2.5-18.5 LF-MCG/0.5 injection, TDAP, TETANUS, DIPHTHERIA, PERTUSSIS 7+ YRS, BOOSTRIX, IMMUNIZATION ADMINISTRATION; ONE VACCINE (SINGLE OR COMBINATION VACCINE/TO* Orders Placed This Encounter: [id number] PERTUSSIS 5-2.5-18.5 LF-MCG/0.5 IM SUSP Patient was counseled on the side effects of medications. Patient should follow up as noted, sooner at any time with any questions/concerns or worsening symptoms prior to then. documented in this encounter Plan of Treatment Not on filedocumented as of this encounter Goals Goal Patient Goal Associated Recent Patient-Stated? 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 Note: Formatting of [...] Priority Date/Time Associated Diagnosis Comme nts XR TIBIA AND FIBULA Routine 12/17/2014 8:37 PM Contusion Re sults for this LEFT 2 VIEWS CDT procedure are i n the results section. documented in this encounter Results XR TIBIA AND FIBULA LEFT 2 VIEWS (12/17/2014 8:37 PM CDT) Anatomical Region Laterality Modality Leg Radiographic Imaging Specimen (Source) Anatomical Collection Method Collection Time Re ceived Time Location / / Volume Laterality 12/17/2014 8:37 PM CDT Narrative 12/18/2014 9:04 AM CDT This document is currently in Final Status Exam XR TIBIA AND FIBULA LEFT 2 VIEWS HISTORY: leg pain, hit with metal pole FINDINGS: No fracture or dislocation. No destructive process. IMPRESSION: Negative tibia fibula. Signed: Andi Galvez MD 12/18/2014 9:04 AM Procedure Note Andi Galvez MD - 12/18/2014Format ting of this note might be different from the original. This document is currently in Final Stat us Exam XR TIBIA AND FIBULA LEFT 2 VIEWS HISTORY: leg pain, hit with metal pole FINDINGS: No fracture or dislocation. No destructive process. IMPRESSION: Negative tibia fibula. Signed: Andi Galvez MD 12/18/2014 9:04 AM Adri Obando MD [facility] documented in this encounter Visit Diagnoses Diagnosis Contusion - Primary Contusion of unspecified site Skin tear Open wound(s) (multiple) of unspecified site(s), without mention of complication Need for Tdap vaccination Need for prophylactic vaccination with c ombined ovgeryfttm-dqmnhin-vgvdmxeba (DTP) vaccine documented in this encounter Orders Immunization/Injection Count Last Ordered Date First O rdered Date IMMUNIZATION ADMINISTRATION; ONE VACCINE 1 015 (SINGLE OR COMBINATION VACCINE/TO* TDAP, TETANUS, DIPHTHERIA, PERTUSSIS 7+ 1 12/18/19 15 YRS, BOOSTRIX documented in this encounter Care Teams Plush Cutter Relationship Specialty Start Date End Date Chioma PCP - General Family Medicine 06/04/11 01/03/17 Deirdre Mosher MD [address] [phone] Shanice Zarco MD Physician Other Ophthalmology 10/05/[address] [place] [phone] Chuy Falcon, Physician Other Cardiology 07/16/14 [address] [place], [place] [phone] Will Dubois MD Physician Other Dermatology 09/21/14 [facility] [address] [place] [phone] Yehuda Quintero MD Physician Other Pain Management 11/02/14 [facility] 9550 [facility] 100 [place] [address] Agustín Ross MD Physician Other Orthopedic Surgery 11/02/14 [facility] [address] [phone] Alysia Claudio, RN RN Assistant Corporation Counsel 11/30/14 02/10/15 Marshal Acosta Other Dental Ceramics Test Engineer 10/05/[address] [place] [phone] Posey Other Audiology 10/05/13 [place], [place] documented as of this encounter
--- OUTSIDE RECORDS SUMMARY | 2022-06-07 20:56 | XMS_ITS | Encounter Summary ---
:1935 Author Organization [employer] Address [address] [address] Phone Care Team Providers Name Role Phone Deirdre Bedolla MD Primary Care Provider [phone] Shanice Zarco MD Unavailable Chuy Falcon MD Unavailable Will Dubois MD Unavailable Yehuda Quintero MD Unavailable Agustín Ross MD Unavailable Alysia Claudio RN Unavailable Reason for Visit Reason Onset Date Comments Care Coordination Program 12/16/2014 Joaquín 5 Post-visit call 12/16/2014 Encounter Details Date Type Department Care Team Description 12/16/2014 Telephone [employer] [facility]Alysia Marquez Care Coordination FAMILY MEDICINE RN Program ([facility] [address] [place] [phone] 12/15/14); Post-visit FAHEEM GUERRERO [address] (Work) call [phone] Social History Tobacco Use Types Packs/Day Years [...] Telephone Encounter - Alysia Claudio RN - 12/16/2014 8:39 AM CDT CCP Post visit Reviewed notes from office visit with Dr. Yanes on 12/15/14. Changes were made to Care Plan. Call placed to pt to discuss and review: 1. Depression. Stop Cymbalta. Start Prozac 20 [...] Repeated chest x-ray that is negative today. 8. Pt did verbalize understanding of all of above. She has not started Prozac yet because they were outof town all day but she'll pick it up tomorrow. Planned follow up:No appt made documented in this encounter Plan of Treatment Not on filedocumented as of this encounter Goals Goal Patient Goal Associated Recent Patient-Stated? 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 Note: Formatting of [...] Primary documented in this encounter Care Teams Mainspring Strip Inspector Relationship Specialty Start Date End Date Chioma PCP - General Family Medicine 06/04/11 01/03/17 Deirdre Mosher MD [address] [phone] Shanice Zarco MD Physician Other Ophthalmology 10/05/[address] [place] [address] Chuy Falcon, Physician Other Cardiology 07/16/14 [address] [place], [place] [phone] Will Dubois MD Physician Other Dermatology 09/21/14 [facility] [address] [place] [phone] Yehuda Quintero MD Physician Other Pain Management 11/02/14 [facility] 9550 [facility] 100 [place] [address] Agustín Ross MD Physician Other Orthopedic Surgery 11/02/14 [facility] [address] [facility] [address] [place] [address] Alysia Claudio, RN RN Language Translator 11/30/14 02/10/15 Marshal Acosta Other Dental Communications Planner 10/05/13 [address] [place], [place] [phone] Dr Posey Other Audiology 10/05/13 [place], [place] documented as of this encounter
--- OUTSIDE RECORDS SUMMARY | 2022-06-07 20:56 | XMS_ITS | Encounter Summary ---
:1935 Author Organization [employer] Address [address] [address] Phone Care Team Providers Name Role Phone Deirdre Bedolla MD Primary Care Provider [phone] Jessica Chua RN Unavailable [phone] Shanice Zarco MD Unavailable Chuy Falcon MD Unavailable Will Dubois MD Unavailable Reason for Visit Reason Onset Date Comments Refill Request 10/12/2014 potassium Encounter Details Date Type Department Care Team Description 10/12/2014 Refill [facility]oma, Refill Request FAMILY MEDICINE Jessica Parish RN (potassium) 2023 [facility] [phone] [place] [address] (Work) [phone] Social History Tobacco Use Types Packs/Day Years [...] Refills Start Date End Date potassium chloride Take 15 mL by mouth 150 mL 11 10/13/19 15 (KAYCIEL) 20 MEQ/15ML one time a day. Take (10%) liquid with food; do not take liquid full strength, must be diluted in 2-6 parts of fluid. documented in this encounter Miscellaneous Notes Telephone Encounter - Jessica Chua - 10/12/2014 10:08 AM CDT Patient's contacted RN Indian Trader. She was wondering if Bill could try a liquid form of potassium chloride as it's hard for him to swallow that large of a pill. [facility] is able to order this. Will submit refill request. documented in this encounter Plan of Treatment Not on filedocumented as of this encounter Goals Goal Patient Goal Associated Recent Patient-Stated? 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 Note: Formatting of [...] on filedocumented in this encounter Care Teams Vice Admiral Relationship Specialty Start Date End Date Chioma PCP - General Family Medicine 06/04/11 01/03/17 Deirdre Mosher MD [address] [phone] Jessica Chua RN Indian Trader Family Medicine 09/04/13 11/29/14 FIORDALIZA Parish Shanice Zarco MD Physician Other Ophthalmology 10/05/[address] [place] [phone] Chuy Falcon, Physician Other Cardiology 07/16/14 3 [place] [address] Will Dubois MD Physician Other Dermatology 09/21/14 [facility] [address] [place] [phone] Marshal Acosta Other Dental Computer Artist 10/05/[address] [place] [phone] Posey Other Audiology 10/05/13 [place], [place] documented as of this encounter
--- OUTSIDE RECORDS SUMMARY | 2022-06-07 20:56 | XMS_ITS | Encounter Summary ---
:1935 Author Organization [employer] Address [address] [address] Phone Care Team Providers Name Role Phone Deirdre Bedolla MD Primary Care Provider [phone] Jessica Chua RN Unavailable [phone] Shanice Zarco MD Unavailable Chuy Falcon MD Unavailable Will Dubois MD Unavailable Yehuda Quintero MD Unavailable Agustín Ross MD Unavailable Reason for Visit Reason Onset Date Comments Care Coordination Program 11/26/2014 ER follow up Encounter Details Date Type Department Care Team Description 11/26/2014 Telephone [facility] Care Coordination FAMILY MEDICINE Jessica Parish RN Program (ER follow up) [address] [facility] [phone] [place] [address] (Work) [phone] Social History Tobacco Use Types Packs/Day Years [...] Notes Telephone Encounter - Jessica Chua - 11/26/2014 4:09 PM CDT Subject: Care Coordination Post visit Reviewed notes from office visit with [facility] ER on 11/17/14. Changes not made to Care Plan. Call placed to pt to discuss and review: 1. Catheter placed, follow up with urologist in [facility], see telephone encounter 11/22/14. Pt did verbalize understanding of: left message asking for call back if any questions or concerns onanything. Planned follow up:Deirdre Bedolla MD on 12/15/14 documented in this encounter Plan of Treatment Not on filedocumented as of this encounter Goals Goal Patient Goal Associated Recent Patient-Stated? 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 Note: Formatting of [...] Primary documented in this encounter Care Teams Manager Spring Relationship Specialty Start Date End Date YESENIA Bedolla - General Family Medicine 06/04/11 01/03/17 Deirdre Mosher MD [address] [phone] Jessica Chua RN Machine Splitter Family Medicine 09/04/13 11/29/14 FIORDALIZA Parish Shanice Zarco MD Physician Other Ophthalmology 10/05/13 [address] [place] [address] Chuy Falcon, Physician Other Cardiology 07/16/14 [address] [place], [place] [phone] Will Dubois MD Physician Other Dermatology 09/21/14 [facility] [address] [place], [place] [address] Yehuda Quintero MD Physician Other Pain Management 11/02/14 [facility] 9550 [facility] 100 [place] [address] Agustín Ross MD Physician Other Orthopedic Surgery 11/02/14 [facility] [address] [address] Marshal Acosta Other Dental Harmonic Analyst 10/05/13 [address] [place], [place] [address] Dr Posey Other Audiology 10/05/13 [place], [place] documented as of this encounter
--- OUTSIDE RECORDS SUMMARY | 2022-06-07 20:56 | XMS_ITS | Encounter Summary ---
:1935 Author Organization [employer] Address [address] [address] Phone Care Team Providers Name Role Phone Deirdre Bedolla MD Primary Care Provider [phone] Jessica Chua RN Unavailable [phone] Shanice Zarco MD Unavailable Chuy Falcon MD Unavailable Will Dubois MD Unavailable Yehuda Quintero MD Unavailable Agustín Ross MD Unavailable Reason for Visit Reason Onset Date Comments ED Follow up 11/22/2014 Encounter Details Date Type Department Care Team Description 11/22/2014 Telephone [facility] Rubin Pollock RATE CLERK Follow up Emergency Department [address] [place] [address] Social History Tobacco Use Types Packs/Day [...] this encounter Miscellaneous Notes Telephone Encounter - Jo-Ann Pollock RN - 11/22/2014 3:17 PM CDT Pt's called for further instruction on removal of pt's salas catheter as directed to by pt's PCP. Reviewed removal process with , questions answered and comfortable with plan to remove pt's catheter. will call back if needed. documented in this encounter Plan of Treatment Not on filedocumented as of this encounter Goals Goal Patient Goal Associated Recent Patient-Stated? 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 Note: Formatting of this [...] on filedocumented in this encounter Care Teams Parachute Manufacturing Supervisor Relationship Specialty Start Date End Date Chioma PCP - General Family Medicine 06/04/11 01/03/17 Deirdre Mosher MD [address] [phone] Jessica Chua RN Telegraphic Typewriter Repairer Family Medicine 09/04/13 11/29/14 FIORDALIZA Parish Shanice Zarco MD Physician Other Ophthalmology 10/05/[address] [place] [phone] Chuy Falcon, Physician Other Cardiology 07/16/14 [address] [place], [place] [phone] Will Dubois MD Physician Other Dermatology 09/21/14 [facility] [address], [place] [phone] Yehuda Quintero MD Physician Other Pain Management 11/02/14 [facility] 9550 [facility] 100 [place], [place] [address] Agustín Ross MD Physician Other Orthopedic Surgery 11/02/14 [facility] [address] [facility] [address] [place] [address] Marshal Acosta Other Dental Books Binder 10/05/[address] [place] [phone] Posey Other Audiology 10/05/13 [place], [place] documented as of this encounter
--- OUTSIDE RECORDS SUMMARY | 2022-06-07 20:56 | XMS_ITS | Encounter Summary ---
:1935 Author Organization [employer] Address [address] [address] Phone Care Team Providers Name Role Phone Deirdre Bedolla MD Primary Care Provider [phone] Jessica Chua RN Unavailable [phone] Shanice Zarco MD Unavailable Chuy Falcon MD Unavailable Will Dubois MD Unavailable Reason for Visit Reason Onset Date Comments Care Coordination Program 10/05/2014 Post-visit call 10/05/2014 Dr. Bedolla, Encounter Details Date Type Department Care Team Description 10/05/2014 Telephone [facility] Toma Care Coordination FAMILY MEDICINE Jessica Parish RN Program; Post-visit call 2023 [facility] [phone] (Dr. Bedolla, ) [place] [address] (Work) [phone] Social History Tobacco Use Types Packs/Day Years [...] Notes Telephone Encounter - Jessica Chua - 10/08/2014 10:25 AM CDT Subject: Care Coordination Post visit Reviewed notes from office visit with Deirdre Bedolla MD on 09-22-14. Changes made to Care Plan. Call placed to pt (spoke with his , Mary Ann) to discuss and review: 1. Referral to diabetes education - apt with Suyapa on 10/12/14. 2. Hypertension and hyperlipidemia - no changes to plans at this time. 3. Chronic pain - Mary Ann said Joe is tolerating the tramadol, no confusion noted. It seems to be working, he is able to stay in bed the entire night now, whereas before after an hour he would get upand go sit in his recliner for a few hours. I know his right hip is still quite sore. He puts ice onit first thing in the morning for about 15 or 20 minutes and that seems to help. Mary Ann is going to change Joe's Celebrex to in the morning and see if that helps, too. 4. Mary Ann asked if Joe could try a liquid form of potassium chloride - he has trouble swallowing such large pills. Contacted [employer] and that is an option. Sent refill request. Let Mary Ann know insurance may not cover initially, and we may need to do a prior authorization. Pt did verbalize understanding of: as above. Denied any additional questions at this time. Planned follow up: Not specified. documented in this encounter Plan of Treatment Not on filedocumented as of this encounter Goals Goal Patient Goal Associated Recent Patient-Stated? 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 Note: Formatting of [...] Primary documented in this encounter Care Teams [employer] Founder Relationship Specialty Start Date End Date Chioma PCP - General Family Medicine 06/04/11 01/03/17 Deirdre Mosher MD [address] [id number] Jessica Chua RN Teacher Theater Arts Family Medicine 09/04/13 11/29/14 Марина RN Shanice Zarco MD Physician Other Ophthalmology 10/05/[address] [place] [phone] Chuy Falcon, Physician Other Cardiology 07/16/[address] [place] [address] [id number] Will Dubois MD Physician Other Dermatology 09/21/14 [facility] [address] [place] [phone] Marshal Acosta Other Dental Sorting Grapple Operator 10/05/13 [address] [place], [place] [phone] Dr Posey Other Audiology 10/05/13 [place], [place] documented as of this encounter
--- OUTSIDE RECORDS SUMMARY | 2022-06-07 20:56 | XMS_ITS | Encounter Summary ---
:1935 Author Organization [employer] Address [address] [address] Phone Care Team Providers Name Role Phone Deirdre Bedolla MD Primary Care Provider [phone] Jessica Chua RN Unavailable [phone] Shanice Zarco MD Unavailable Chuy Falcon MD Unavailable Will Dubois MD Unavailable Yehuda Quintero MD Unavailable Agustín Ross MD Unavailable Reason for Visit Reason Comments Refill Request Ascorbic Acid (VITAMIN C) Encounter Details Date Type Department Care Team Description 11/06/2014 Refill [facility] Riaz Bedolla efill Request FAMILY MEDICINE Deirdre Mosher MD (Ascorbic Acid (VITAMIN 2023 [facility] eet [address] [place] [address] [place] [address] [phone] (Wo rk) Social History Tobacco Use Types [...] Cap tablet by mouth one time daily documented in this encounter Miscellaneous Notes Telephone Encounter - Pauline Cummings RN - 11/07/2014 11:28 AM CDT The refill request is Ok to authorize per the [facility] Medication Refill Protocol. Telephone Encounter - Utility, Refill Wizard - 11/06/2014 7:44 AM CDT Ascorbic Acid (VITAMIN C) 500 MG Cap [Pharmacy Med Name: Vitamin C 500 Mg Chw Targ] - WARNING: Due to an unreadable sig, manually ensure the patient is due for a renewal. - REFILL: 12 months (if warnings resolved) - PROTOCOL: Endocrinology: Vitamins - RATIONALE: This refill should last until the patient is due for an office visit. - LAST QUALIFYING VISIT WITH DEIRDRE BEDOLLA K: 09/22/2014 - NEXT SCHEDULED VISIT IN FAMILY PRACTICE: 12/15/2014 - MEDICATION STARTED: 12/10/2012 - LAST REFILLED ON: 02/15/2014, QTY: 90, Refills: 2, Sig: take 500 mg by mouth one time a day. (changed) - LAST FILL DATE FROM PHARMACY: 08/08/2014 Powered by [employer], Reference: [id number], 11/06/2014 7:44:54 AM CDT, Pool: KLEVER ([id number]) documented in this encounter Plan of Treatment Not on filedocumented as of this encounter Goals Goal Patient Goal Associated Recent Patient-Stated? 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 Note: Formatting of this [...] Sig Discontinue Reason Start Date End Date Ascorbic Acid (VITAMIN C) Take 500 mg by 02/15/2014 11/06/2014 500 MG CAPS mouth one time a day. documented as of this encounter Care Teams Insole And Outsole Preparer Relationship Specialty Start Date End Date Chioma PCP - General Family Medicine 06/04/11 01/03/17 Deirdre Mosher MD [address] [id number] Jesscia Chua RN Policeman Family Medicine 09/04/13 11/29/14 FIORDALIZA Parish Shanice Zarco MD Physician Other Ophthalmology 10/05/[address] [place] [phone] Chuy Falcon, Physician Other Cardiology 07/16/14 3 [place], [place] [phone] Will Dubois MD Physician Other Dermatology 09/21/14 [facility] [address] [place] [phone] Yehuda Quintero MD Physician Other Pain Management 11/02/14 [facility] [address] [facility] [address] [place] [address] Agustín Ross MD Physician Other Orthopedic Surgery 11/02/14 [facility] [address] [facility] [address] [place] [address] Marshal Acosta Other Dental Bead Wire Insulator 10/05/13 [address] [place] [address] Dr Posey Other Audiology 10/05/13 [place], [place] documented as of this encounter
--- OUTSIDE RECORDS SUMMARY | 2022-06-07 20:56 | XMS_ITS | Encounter Summary ---
:1935 Author Organization [employer] Address [address] [address] Phone Care Team Providers Name Role Phone Deirdre Bedolla MD Primary Care Provider [phone] Jessica Chua RN Unavailable [phone] Shanice Zarco MD Unavailable Chuy Falcon MD Unavailable Will Dubois MD Unavailable Reason for Visit Reason Comments Diabetes Care Plan Encounter Details Date Type Department Care Team Description 10/12/2014 Office Visit [facility] Diabetes Suyapa Prescott, Type II o r unspecified Resource Program RD type diabetes mellitus [address] [facility] without mention of FAHEEM Burdick [address] [facility], [facility] [phone] FAHEEM BURDICK stated as uncon trolled 19645 ([facility]) (Primary Dx) Social History Tobacco Use Types [...] - Inhaled Oxygen Concentration - - Weight 95.9 kg (211 lb 6.4 oz) 10/12/2014 2:01 PM CDT Height - - Body Mass Index 32.14 09/22/2014 11:12 AM CDT documented in this encounter Functional Status Functional Status Response Date of Assessment Patient's Vision Adequate to Safely Complete Daily No 04/18/2014 Activities Cognitive Status Response Date of Assessment Patient's Judgment Adequate to Safely Complete Daily No 04/18/2014 Activities documented as of this encounter Patient Instructions Patient InstructionsPeSuyapa rosas RD - 10/12/2014 2:38 PM CDT My Plan: 1. Work on eating the right portion sizes (See the chart for examples.) Try measuring some foods. 2. Focus on eating a good variety of foods at each meal, 3-4 food groups, such as the examples on your handouts. 3. Gradually add physical activity, starting slowly, aiming to increase to a total of 30 minutes/day. Carbohydrate foods: Starches and grains, Fruits and juices, milk & yogurt, and sweets/snacks. Meat/poultry/fish/eggs/cheese/peanut butter = NO CARB Added fats: butter, margarine, salad dressing, oils = NO CARB documented in this encounter Progress Notes Suyapa Prescott RD - 10/12/2014 2:02 PM CDT Simon Castillo is a 79 year old male with type 2 diabetes. Patient is accompanied by Mary Ann. Referred by Deirdre Bedolla M.D. for diabetes self management training. SUBJECTIVE: Patient's main concerns today: Has had a series of challenging health issues the past couple years Physical Activity: Current Physical Activity: not exercising due to back pain Meal Planning: Patient self-rating on meal planning: (1-10): Food Records Reviewed: NA Diet Recall: Breakfast: Coffee in a.m. Breakfast: Cereal and juice -or anand and eggs, and coffee am Snack: 10 am: toast w/jelly Lunch: [place] OR soup OR, occ. fruit pm Snack: coffee//Nutritional supplement Supper: Meat, potato, vegetable or salad HS Snack: Ice cream (1-2x/week); apple or apple w/caramel; cookie or popcorn occasionally Night Eating?: no Portions Problematic/Challenging?: yes Alcohol Use: yes Beverages (type/amount): Meals away from home (type/frequency): not often-occasionally at fine dining Motivation to Change (Scale 1-10; 1 is low, 10 is high): - Confidence to Change (Scale 1-10; 1 is low, 10 is high): 8 OBJECTIVE: Filed Vitals: 10/12/14 1401 Weight: 211 lb 6.4 oz (95.89 kg) Body mass index is 32.15 kg/(m^2). Labs: A1C:HGA1C 7.0 09/22/2014: Lipids: CHOL 133 07/15/2014 TRIG 134 07/15/2014 HDL 35 07/15/2014 LDLC 71 07/15/2014 Kidney function: ALBCR 14 04/05/2014 CREAT 0.84 09/22/2014 GFR >60 09/22/2014 Target Blood Sugar Goals: 70-130 before meals, less than 160 two hours p.c. meals Monitoring blood sugars occasionally-no regular schedule. Glucose in office today about 2.5 hours post-meal of 146 mg/dl BST/SBGM Additional glucoses not collected as patient has not monitoring routinely Current Medications: Current Outpatient Prescriptions Medication Sig ??? potassium chloride (KAYCIEL) 20 MEQ/15ML (10%) [...] medications for this visit. Educational Materials Used: [facility] education material Basic Carb Counting and Plate method handouts -Education Topics Taught: Discuss principles and purpose of meal planning and healthy eating: ?? Benefits of using a meal plan, purpose/goals of meal plan ?? Eating meals and snacks at appropriate times/intervals ?? Foods to choose less often ?? Healthy beverage choices ?? Portion management Food and meal planning strategies: ?? Carbohydrate, protein and fat: effects on blood glucose ?? Interpreting and using food labels ?? Strategies/options for meal planning: Plate Method and portion control ?? Personalized food plan, knowing your goals Physical Activity: ?? List appropriate types of exercise ?? State relationship of exercise to blood glucose ?? Discuss recommended amount and frequency of physical activity ?? State the benefits/risks of exercise and precautions to follow ASSESSMENT: Weight has been steadily increasing since patient was ill-about 15# increase over the past year. Would prefer to avoid gaining more, and is concerned about gradually increasing A1c also. Overall diet evaluation: Evaluation indicates patient is likely eating large portions. Had used nutritional supplements for an extended time, but is no longer consuming those. Tends to eat inadequate portions of vegetables and snack on larger than needed portions for current low level of energy expenditure. Patient also had some misconceptions regarding carb-containing foods and effects of sugary foods vs. Starchy foods on blood glucose. Adequate food resources? yes Current diabetes meal planning strategy: Limiting sweets. Glucose Control: A1c indicates adequate control for state of health, age, but it has increased over the past year. Discussed appropriate range for him to maintain health. Physical Activity at least 30, 5 days/week? no Appropriate for weight loss? no Ready for weight loss? NA Goal Follow-up? NA Other: Barriers to Learning: hard of hearing PLAN: Patient-identified goals: Patient Instructions My Plan: 1. Work on eating the right portion sizes (See the chart for examples.) Try measuring some foods. 2. Focus on eating a good variety of foods at each meal, 3-4 food groups, such as the examples on your handouts. 3. Gradually add physical activity, starting slowly, aiming to increase to a total of 30 minutes/day. Carbohydrate foods: Starches and grains, Fruits and juices, milk & yogurt, and sweets/snacks. Meat/poultry/fish/eggs/cheese/peanut butter = NO CARB Added fats: butter, margarine, salad dressing, oils = NO CARB Education minutes spent: 90 minutes Education Start Time:1340 Education Stop Time:1510 Supervising Provider: Deirdre Bedolla M.D. Copy of chart sent to Deirdre Bedolla M.D. documented in this encounter Plan of Treatment Not on filedocumented as of this encounter Goals Goal Patient Goal Associated Recent Patient-Stated? 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 Note: Formatting of this [...] Name Priority Date/Time Associated Diagnosis Comme nts DSMT,RD Routine 10/12/2014 3:26 PM Type II or unspecified ONLY,INDIVIDUAL CDT type diabetes mellitus without mention of complication, not stated as uncontrolled (HCC) documented in this encounter Visit Diagnoses Diagnosis Type II or unspecified type diabetes cindy litus without mention of complication, not stated as uncontrolled - Primary documented in this encounter Orders Procedures Count Last Ordered Date First Ordered Date DSMT,RD ONLY,INDIVIDUAL 1 10/12/2014 documented in this encounter Care Teams Leather Cleaner Relationship Specialty Start Date End Date Chioma PCP - General Family Medicine 06/04/11 01/03/17 Deirdre Mosher MD [address] [phone] Jessica Chua RN Resident Associate Family Medicine 09/04/13 11/29/14 E, RN Shanice Zarco MD Physician Other Ophthalmology 10/05/[address] [place] [phone] Chuy Falcon, Physician Other Cardiology 07/16/14 523 [place], [place] [phone] Will Dubois MD Physician Other Dermatology 09/21/14 [facility] [address] [place] [phone] Marshal Acosta Other Dental Engineer Soils 10/05/13 [address] [place], [place] [phone] Dr Posey Other Audiology 10/05/13 [place], [place] documented as of this encounter
--- OUTSIDE RECORDS SUMMARY | 2022-06-07 20:57 | XMS_ITS | Encounter Summary ---
:1935 Author Organization [employer] Address [address] [address] Phone Care Team Providers Name Role Phone Deirdre Bedolla MD Primary Care Provider [phone] Jessica Chua RN Unavailable [phone] Dewey Ramey Unavailable Shanice Zarco MD Unavailable Renny Jamil Unavailable Reason for Visit Reason Comments Consult nosebleed fu from ER nasal p acking Encounter Details Date Type Department Care Team Description 04/20/2014 [place] Impacted cerumen, bilateral (Primary Dx) ; Clinic ENT 2023 Cerumen debris on tympanic m embrane of right ear; [address] [facility] [address] Other chronic otitis externa; [place] Other and unspecified coagul ation defects (HCC); [place] [id number] Epistaxis; [phone] Impacted cerume n, right (Work) Social History Tobacco Use Types Packs/Day Years Used Date Smoking Tobacco: Never Smokeless Tobacco: Never Alcohol Use Standard Drinks/Week Comments No 0 (1 standard drink = 0.6 oz pure alcoho l) Sex Assigned at Date Recorded Not on file documented as of this encounter Last Filed Vital Signs Vital Sign Reading Time Taken Comments Blood Pressure 104/70 04/20/2014 2:07 PM CDT Pulse 75 04/20/2014 2:07 PM CDT Temperature - - Respiratory Rate - - Oxygen Saturation - - Inhaled Oxygen Concentration - - Weight 92.1 kg (203 lb) 04/20/2014 2:07 PM CDT Height 177.8 cm (5' 10) 04/20/2014 2:07 PM CDT Body Mass Index 29.13 04/20/2014 2:07 PM CDT documented in this encounter Functional Status Functional Status Response Date of Assessment Patient's Vision Adequate to Safely Complete Daily No 04/18/2014 Activities Cognitive Status Response Date of Assessment Patient's Judgment Adequate to Safely Complete Daily No 04/18/2014 Activities documented as of this encounter Patient Instructions Patient InstructionsKendall Farnsworth MD - 04/20/2014 3:09 PM CDT The vast majority of nosebleeds occur on the very front part of the nose in an area called the nasalseptum, the divider between the two nostrils. The septum is a very firm area covered by a thin, delicate mucous membrane that is easily damaged and subsequently bleeds. Therefore, in a patient who has recurrent nosebleeds, it's extremely important not to bump the nasal septum as this may start a bleed. If a nosebleed starts, the best approach is to spray 2 puffs of Afrin (oxymetazoline) nasal spray into the bleeding nostril. Then coat a bullet-shaped cotton ball with Vaseline (or antibiotic ointment), and place it carefully up in the nostril on the side that is bleeding, and pinch and hold the nose for ten minutes while sitting upright and trying to remain calm. The Vaseline on the cotton ball keeps the clot from the bleeding source from becoming large and obstructing the nostril. If this approachdoesn't work, you may need to wet the cotton ball with Afrin and putting that in the nose will stop the bleed. After the bleeding has stopped several measures are important to keep the area from re-bleeding. Thefirst of these is to avoid blowing the nose (for 3 days if possible) which increases the blood pressure in the nose. After 3 days, gentle nose blowing for another 4 days is advisable. Also, sneezing should be performed with an open mouth and the patient should try to avoid excessive amounts of coughing. Additionally, any body position that keeps the nose above the level of the heart decreases the intranasal blood pressure as well. This includes sleeping with one or two extra pillows under the head andbending at the knees rather than bending over at the waist. Finally, the patient should avoid activities that increase the blood pressure and blood flow insidethe nose. These include heavy lifting or straining (more than 10 lbs. objects), and eating very hot or spicy foods or liquids. In fact, sipping cold liquids to cool off the roof of the mouth (just behind the upper front teeth) sometimes helps by constricting the blood vessels that feed the bleed. For similar reasons, a cold washcloth to the outside of the nose sometimes helps. After the patient has not had a nosebleed for a week, it is reasonable to go back to normal daily activities. Certain conditions such as high blood pressure can predispose to recurrent nosebleeds. Therefore, while being treated for nosebleeds, you should be careful to continue to take your blood pressure medicines. documented in this encounter Ordered Prescriptions Prescription Sig Dispensed Refills Start Date End Date acetic acid-aluminum Place 10 Drops into 60 mL 0 201310/07/2014 acetate (DOMEBORO OTIC) 2 both ears every % Solution seven days. Pump on ear cartilage vigorously for 2 minutes; let drain Fluorometholone Acetate Place 5 Drops into 10 mL 4 04/0710/07/2014 0.1 % Suspension both ears every 48 hours as needed (for itchy ear canals.). documented in this encounter Progress Notes Kendall Farnsworth MD - 04/26/2014 8:[address] [facility] Patient Name: AAMIR ESCOBAR Date of Service: 04/20/2014 : 1935 Age: 78Y Sex: M Site MRN: Patient Loc/Room #: BMCENT/ Provider: Kendall Farnsworth MD, Ear/Nose/Throat OFFICE NOTE SITE: [facility] SUBJECTIVE: Aamir Escobar is being seen for a nosebleed. He had a bleed about 2 days ago. Initially his bleed started 5 days ago, was a short-lived right-sided bleed. Then 3 days ago it came pouring out. He went to urgent care where Dr. Navdeep Farris cauterized him around noon but by 4 p.m. it started to bleed again. Dr. Farris did note the bleed was from his typical right Kiesselbach plexus area. He went to the emergency room where he had a balloon pack placed, but it slid out. He had to go back andhave it replaced again. Fortunately the pack is not causing any pain right now. He is on aspirin and Plavix and Celebrex. He was not taken off his Plavix. He did have a huge DC not quite 2 years ago on 07/04/2012, which is the reason he is on the Plavix. On the other hand he is going to get a cortisone shot in his hip in 8 days and they are going to have him discontinue the Plavix tomorrow after tonight's evening dose and he needs to stay off of that until the cortisone shot. His indicates they want him off it for 7 to 10 days. Right now he is in 7/10 left hip pain. Around the time he had his DC he also developed apparently a spinal meningitis and apparently an abscess in his hip and it is causing him a lot of misery. He does have hearing loss, has bilateral hearing aids fitted by [employer] at an outside location. 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 He did do a fair amount of hunting, however, and his father also had hearing loss. He does recall when his hearing aids were fitted 2 or 3 years ago he was told actually the left side strikingly was the better. He was seen by Dr. Samuel on 04/18/2014, for epistaxis. Noted to be on aspirin and Plavix. Noted to have slow oozing of blood from the right nostril, a bit of dry blood on the left, saw a large clot inthe posterior right nostril, dark blood in the posterior pharynx, put a 7.5 Rhino Rocket but could not get it in all the way. Therefore, placed a 5.5, put him on Keflex. Noted there was no reason to stop the aspirin and Plavix, given this is a required medication for him. Dr. Farris saw him earlier that day, noted irritation in Kiesselbach area with some oozing on the right, cauterized with silver nitrate. PAST MEDICAL HISTORY: 1. Hyperlipidemia. 2. Heart disease. 3. Shoulder pain. 4. Dermatophytosis. 5. Finger stiffness. 6. Epidural abscess. 7. BPH. 8. Overactive bladder. His last creatinine was 0.88, within normal limits. REVIEW OF SYSTEMS: The patient denies any problems with eyes, gastrointestinal tract, respiratory tract, endocrinological, hematologic, cardiac, musculoskeletal, renal, dermatologic, psychiatric or neurologic, or generalized systemic problems such as significant weight change or fatigue, except as noted above. Joe states his ears chronically itch and have for years. He tends to scratch them every day. PHYSICAL EXAMINATION: Normocephalic atraumatic. The patient is well groomed, well nourished, appearsstated age, and is in no acute distress. The patients vocal quality is normal. Facial strength and movement are normal and symmetrical. The patient is sitting comfortably in the exam chair, breathing co mfortably. Mood and affect appear to be within normal limits. His blood pressure is 104/70, pulse 75, height is 5'10, weight is 233 pounds. Examination of the ears reveals dry wax mid right ear canal,carefully removed with an alligator forceps under the microscope. Confrontational tuning fork testing at that point in time was performed at 1,000 and 2,000 Hz. His left ear was down at both frequencies but his right ear is down much more at both frequencies, is the worst of the 2 ears. External nasalexamination is remarkable for a balloon pack in the right side of the nose. Examination of left sideof the nose reveals multiple flecks of dry blood on the septum. Nasopharyngeal examination is remarkable for a small amount of dry blood right side. Lips are normal. There is normal tongue bulk and mobility, intact mucous membranes without evidence of mass or ulceration, and symmetrical palatal elevation. The patients vocal folds proper were not able to be well visualized due to gagging and the propensity for guarding of the oropharynx by raising the tongue. However, the arytenoid areas could be well visualized. The vocal folds are normal and symmetrical in their mobility. The tip of the epiglottisand the valleculae and pyriform sinuses are normal. There is no bleeding. There are no growths, no asymmetric fullness, and no ulcerations in the hypopharynx and laryngeal areas that were visualized. Th ere are smooth, symmetrical parotid glands without nodularity. There are no neck masses, adenopathy,thyroid masses, or thyromegaly. Normal laryngeal landmarks. Trachea is normal and in the midline. Carotid pulses are normal and symmetrical. The balloon pack was carefully deflated and removed. He has numerous areas of spotty yellow adherent mucus overlying a slightly irritated mucus membrane without zeeshan excoriation. Right in the middle of this I can see an area of fibrinous exudate, a tiny speck of granulation tissue about a millimeter in diameter, very suspicious for the bleeder. This area was sprayed with plain tetracaine, gently palpated, began bleeding very briskly, had to be silver nitrate cauterized and packed x4 to get it stopped completely. Thereafter, I could not provoke a bleed even by rubbing fairly hard with a cotton swab. Bacitracin was applied. ASSESSMENT/PLAN: 1. Seborrheic dermatitis of the ear canals. His ear canal skin is dry and his wax was flaky and I think he will do rather well with some fluorometholone drops. I recommended he try these 2 to 3 times aweek. Left me know if they are not working after a 3 week trial. 2. Chronic anticoagulation. The Mrs. and I talked about this frankly. I think in terms of risk/benefit, if he is going to be coming off the Plavix anyway for 7 days we may as well make it 8 and I have recommended she hold on his Plavix dose tonight. 3. Right-sided epistaxis, anterior. Now I think successfully cauterized, albeit with considerable aggressiveness, although I did not have to use electrical cautery. I recommended he avoid nose blowing for 3 days and thereafter blow only gently for about 4 more days. I am going to ask him to warehouse order picker some oxymetazoline, some cotton balls, and spray that aggressively. The bleed I saw today was bright red and rapid and is consistent with an arterial nosebleed. The rationale for use of oxymetazoline, the 5 minute delay before it works, the possibility of having to putoxymetazoline on the cotton swabs proper, all were discussed at length. I also asked them to pick upsome antibiotic ointment, some of which I applied to the cauterized area today. I have asked them also to make sure he and his takes steps to keep the air humid in the home over the course of the winter given that he is going to be continuing on his anticoagulation indefinitely and drying of the winter air is going to markedly increase his risk of further nosebleeds. 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 Kendall Farnsworth MD [facility] Ear/Nose/Throat cc: /MCW Job ID: [id number] /srhts Document ID: [id number] S SUPPORT ADVISOR documented in this encounter Plan of Treatment Not on filedocumented as of this encounter Goals Goal Patient Goal Associated Recent Patient-Stated? 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 Note: Formatting of this [...] Name Priority Date/Time Associated Diagnosis Comme nts REMOVE IMPACTED EAR Routine 05/03/2014 2:07 PM CDT Impacted ce rumen, right WAX CTRL Routine 05/03/2014 2:07 PM CDT Other and unspecif ied NOSEBLEED,ANTER,COMPLE coagulation defect s X (HCC) Epistaxis REMOVE IMPACTED EAR Routine 04/20/2014 3:16 PM CDT Cerumen kimi ris on WAX tympanic membrane of right ear documented in this encounter Visit Diagnoses Diagnosis Impacted cerumen, bilateral - Primary Cerumen debris on tympanic membrane of r ight ear Other chronic otitis externa Other and unspecified coagulation defect s Epistaxis Impacted cerumen, right documented in this encounter Orders Procedures Count Last Ordered Date First Ordered Date CTRL NOSEBLEED,ANTER,COMPLEX 1 05/03/2014 REMOVE IMPACTED EAR WAX 2 05/03/2014 04/20/20 14 documented in this encounter Care Teams Roll Repairer Relationship Specialty Start Date End Date Chioma PCP - General Family Medicine 06/04/11 01/03/17 Deirdre Mosher MD [address] [id number] Jessica Chua RN Compliance Investigator Family Medicine 09/04/13 11/29/14 FIORDALIZA Parish Dewey Ramey Physician Other Pain Management 09/16/13 09/20/14 [facility] [address] [facility] [address] [place] [address] Shanice Zarco MD Physician Other Ophthalmology 10/05/[address] [place] [address] Renny Jamil Physician Other Neurosurgery 10/05/13 09/20/14 Marshal Acosta Other Dental Supervisor [employer] 10/05/13 [address] [place], [place] [phone] Dr Posey Other Audiology 10/05/13 [place], [place] documented as of this encounter
--- OUTSIDE RECORDS SUMMARY | 2022-06-07 20:57 | XMS_ITS | Encounter Summary ---
:1935 Author Organization [employer] Address [address] [address] Phone Care Team Providers Name Role Phone Deirdre Bedolla MD Primary Care Provider [phone] Jessica Chua RN Unavailable [phone] Dewey Ramey Unavailable Shanice Zarco MD Unavailable Renny Jamil Unavailable Encounter Details Date Type Department Care Team Description 05/20/2014 [facility] ASSISTANT BANQUET MANAGER [address] [place] [address] [address] [facility] [address] [place], [place] [phone] (Wo rk) Social History Tobacco Use Types [...] 04/18/2014 Activities documented as of this encounter Medications at Time of Discharge Medication Sig Dispensed Refills Start Date End Date atorvaSTATin (LIPITOR) 40 Take 1 Tab by [...] MG 81 mg 1 tablet, 81.000 0 08/05/19 10 tablet ORAL, DAILY, 08/05/09 14:22:55 documented as of this encounter Discharge Disposition Disposition Code Departure Means Destination Discharged documented in this encounter Plan of Treatment Not on filedocumented as of this encounter Goals Goal Patient Goal Associated Recent Patient-Stated? 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 Note: Formatting of [...] Associated Diagnosis Comme nts XR KNEE RIGHT 1 OR Routine 05/20/2014 12:16 PM Re sults for this 2 VIEWS NEW CAR MAKE READY MECHANIC procedure are i n the results section. documented in this encounter Results XR KNEE RIGHT 1 OR 2 VIEWS (05/20/2014 12:16 PM NEW CAR MAKE READY MECHANIC) Anatomical Region Laterality Modality Knee Radiographic Imaging Specimen (Source) Anatomical Collection Method Collection Time Re ceived Time Location / / Volume Laterality 05/20/2014 12:16 PM NEW CAR MAKE READY MECHANIC Narrative 05/25/2014 5:17 PM NEW CAR MAKE READY MECHANIC This document is currently in Final Status Exam XR KNEE RIGHT 1 OR 2 VIEWS HISTORY: Osteoarthrosis NOS, lower leg. COMPARISON: None. FINDINGS: Patchy lucencies are likely re lated to osteoporosis. Chondrocalcinosis. Mild medial compartment degenerative joint space narrowing. Tricompartmental hypertrophic spurring, greatest in the patellofemoral compartment. No evidence for acute fracture or dislocation. Atherosclerotic calcifications. IMPRESSION: No acute osseous abnormality . Tricompartmental osteoarthritis. Patchy skeletal lucencies presumably secondary to osteoporosis, however clinical correlation is needed. Dictated By: Roxana Morales MD 05/20/2014 1:07 PM Edited By: DUKE 05/20/2014 2:01 PM Signed: Roxana Morales MD 05/25/2014 5:17 PM Procedure Note Roxana Morales MD - 05/25/2014 This document is currently in Final Stat us Exam XR KNEE RIGHT 1 OR 2 VIEWS HISTORY: Osteoarthrosis NOS, lower leg. COMPARISON: None. FINDINGS: Patchy lucencies are likely re lated to osteoporosis. Chondrocalcinosis. Mild medial compartment degenerative joint space narrowing. Tricompartmental hypertrophic spurring, greatest in the patellofemoral compartment. No evidence for acute fracture or dislocation. Atherosclerotic calcifications. IMPRESSION: No acute osseous abnormality . Tricompartmental osteoarthritis. Patchy skeletal lucencies presumably secondary to osteoporosis, however clinical correlation is needed. Dictated By: Roxana Morales MD 05/20/2014 1:07 PM Edited By: DUKE 05/20/2014 2:01 PM Signed: Roxana Morales MD 05/25/2014 5:17 PM Vanita Cardenas ASSISTANT BANQUET MANAGER [facility] ORDERA BLES documented in this encounter Visit Diagnoses Not on filedocumented in this encounter Care Teams Grinder Set Up Operator Centerless Relationship Specialty Start Date End Date Chioma PCP - General Family Medicine 06/04/11 01/03/17 Deirdre Mosher MD [address] [id number] Jessica Chua RN Block Sorter Family Medicine 09/04/13 11/29/14 FIORDALIZA Parish Dewey Ramey Physician Other Pain Management 09/16/13 09/20/14 [facility] [address] [place] [address] Shanice Zarco MD Physician Other Ophthalmology 10/05/[address] [place] [address] Renny Jamil S Physician Other Neurosurgery 10/05/13 09/20/14 Marshal Acosta Other Dental Warehouseman 10/05/[address] [place] [phone] Posey Other Audiology 10/05/13 [place], [place] documented as of this encounter
--- OUTSIDE RECORDS SUMMARY | 2022-06-07 20:57 | XMS_ITS | Encounter Summary ---
:1935 Author Organization [employer] Address [address] [address] Phone Care Team Providers Name Role Phone Deirdre Bedolla MD Primary Care Provider [phone] Jessica Chua RN Unavailable [phone] Dewey Ramey Unavailable Shanice Zarco MD Unavailable Renny Jamil Unavailable Reason for Visit Reason Comments Medication Check Encounter Details Date Type Department Care Team Description 06/07/2014 Office Visit [facility] UROLOGY Javy Ruiz, Overactive bladder [address] (Primary Dx) [place] [address] [facility] [phone] [place], [place] [address] Social History Tobacco Use Types Packs/Day Years Used Date Smoking Tobacco: Never Smokeless Tobacco: Never Alcohol Use Standard Drinks/Week Comments No 0 (1 standard drink = 0.6 oz pure alcoho l) Sex Assigned at Date Recorded Not on file documented as of this encounter Last Filed Vital Signs Vital Sign Reading Time Taken Comments Blood Pressure 117/73 06/07/2014 3:26 PM PURCHASING ANALYST Pulse 92 06/07/2014 3:26 PM PURCHASING ANALYST Temperature - - Respiratory Rate - - Oxygen Saturation - - Inhaled Oxygen Concentration - - Weight 92.1 kg (203 lb) 06/07/2014 3:26 PM PURCHASING ANALYST Height 177.8 cm (5' 10) 06/07/2014 3:26 PM PURCHASING ANALYST Body Mass Index 29.13 06/07/2014 3:26 PM PURCHASING ANALYST documented in this encounter Functional Status Functional Status Response Date of Assessment Patient's Vision Adequate to Safely Complete Daily No 04/18/2014 Activities Cognitive Status Response Date of Assessment Patient's Judgment Adequate to Safely Complete Daily No 04/18/2014 Activities documented as of this encounter Patient Instructions Patient InstructionsJavy Ruiz MD - 06/07/2014 4:11 PM CST Stay on Vesicare and flomax. F/U 3 months. HASING ANALYST documented in this encounter Progress Notes Javy Ruiz MD - 06/13/2014 11:[address] [facility] Patient Name: SIMON CASTILLO Date of Service: 06/07/2014 : 1935 Age: 78Y Sex: M Site MRN: Patient Loc/Room #: BRDUR/ Provider: Javy Ruiz MD, Urology PROGRESS NOTE SITE: [facility] Bill presents for followup of an overactive bladder. He was given a trial of VESIcare 10 mg a day. He reports this helped with his urgency, frequency, and nocturia. Although these symptoms still exist,they are improved. He is on tamsulosin and Proscar for treatment of BPH and Mary Ann helps him with his medications. REVIEW OF SYSTEMS: Otherwise unchanged and unremarkable. OBJECTIVE: Blood pressure 117/73, pulse 92 he appears pleasant, alert, in no acute distress. Skin - warm and dry. IMPRESSION: Improvement on VESIcare. PLAN: Stay on VESIcare and Flomax. Follow up in 3 months. Prostate check at that point. A 15-minute appointment, 50% spent in discussion and coordination. Javy Ruiz MD [facility] Urology cc: /BJQ Job ID: [id number] /la Document ID: [id number] HASING ANALYST Javy Ruiz MD - 06/13/2014 10:50 AM CST This note has been dictated. HASING ANALYST Javy Ruiz MD - 06/07/2014 4:12 PM CST This note has been dictated. HASING ANALYST documented in this encounter Plan of Treatment Not on filedocumented as of this encounter Goals Goal Patient Goal Associated Recent Patient-Stated? 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 Note: Formatting of this [...] as of this encounter Visit Diagnoses Diagnosis Overactive bladder - Primary Hypertonicity of bladder documented in this encounter Care Teams Stone Gang Sawyer Relationship Specialty Start Date End Date YESENIA Bedolla - General Family Medicine 06/04/11 01/03/17 Deirdre Mosher MD [address] [phone] Jessica Chua RN Paralegal Instructor Family Medicine 09/04/13 11/29/14 FIORDALIZA Parish Dewey Ramey Physician Other Pain Management 09/16/13 09/20/14 [facility] [address] [place] [address] Shanice Zarco MD Physician Other Ophthalmology 10/05/[address] [place] [id number] Renny Jamil Physician Other Neurosurgery 10/05/13 09/20/14 Marshal Acosta Other Dental Astronautical Engineer 10/05/[address] [place] [id number] Posey Other Audiology 10/05/13 [place], [place] documented as of this encounter
--- OUTSIDE RECORDS SUMMARY | 2022-06-07 20:57 | XMS_ITS | Encounter Summary ---
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 Note: Formatting [...] Diagnosis Comme nts EXTERNAL CARDIOLOGY DOCUMENTATION Routine 04/28/2013 documented in this encounter Results EXTERNAL CARDIOLOGY DOCUMENTATION (04/28/2013) Narrative This result has an attachment that is no t available. Pcp Elsewhere IP ECG ORDERABLES documented in this encounter Visit Diagnoses Not on filedocumented in this encounter Care Teams Extension Associate Relationship Specialty Start Date End Date Chioma PCP - General Family Medicine 06/04/11 01/03/17 Deirdre Mosher MD [address] [address] Jessica Chua RN Intercell Connector Placer Family Medicine 09/04/13 11/29/14 Марина RN Dewey Ramey Physician Other Pain Management 09/16/13 09/20/14 [facility] [address] [address] [place] [address] Shanice Zarco MD Physician Other Ophthalmology 10/05/[address] [place] [address] Renny Jamil Physician Other Neurosurgery 10/05/13 09/20/14 Chuy Falcon, Physician Other Cardiology 07/16/14 [address] [place] [address] Marshal Acosta Other Dental Title Processor 10/05/13 [address] [place] [address] Dr Posey Other Audiology 10/05/13 [place], [place] documented as of this encounter
--- OUTSIDE RECORDS SUMMARY | 2022-06-07 20:57 | XMS_ITS | Encounter Summary ---
:1935 Author Organization [facility] Address [address] [address] Phone Care Team Providers Name Role Phone Deirdre Bedolla MD Primary Care Provider [phone] Jessica Chua RN Unavailable [phone] Shanice Zarco MD Unavailable Chuy Falcon MD Unavailable Will Dubois MD Unavailable Reason for Visit Reason Comments Care Coordination Program Billing/Consent signed Encounter Details Date Type Department Care Team Description 09/23/2014 Notes [facility] Care Coordination Program FAMILY MEDICINE Jessica Parish RN (Billing/Consent signed) 2023 [facility] [phone] [place] [address] (Work) [phone] Social History Tobacco Use Types Packs/Day Years [...] this encounter Progress Notes Jessica Chua - 09/23/2014 8:51 AM CDT Patient signed new consent to self-pay for Care Coordination Program. Routed to scanning. documented in this encounter Plan of Treatment Not on filedocumented as of this encounter Goals Goal Patient Goal Associated Recent Patient-Stated? 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 Note: Formatting of this [...] Primary documented in this encounter Care Teams Technical Support Specialist Relationship Specialty Start Date End Date Chioma PCP - General Family Medicine 06/04/11 01/03/17 Deirdre Mosher MD [address] [id number] Jessica Chua RN Assembly Mechanic Family Medicine 09/04/13 11/29/14 FIORDALIZA Parish Shanice Zarco MD Physician Other Ophthalmology 10/05/[address] [place] [address] Chuy Falcon, Physician Other Cardiology 07/16/14 [address] [place], [place] [id number] Will Dubois MD Physician Other Dermatology 09/21/14 [facility] [address] [place] [address] Marshal Acosta Other Dental Wharf Tally Clerk 10/05/[address] [place] [id number] Posey Other Audiology 10/05/13 [place], [place] documented as of this encounter
--- OUTSIDE RECORDS SUMMARY | 2022-06-07 20:57 | XMS_ITS | Encounter Summary ---
:1935 Author Organization [facility] Address [address] [address] Phone Care Team Providers Name Role Phone Deirdre Bedolla MD Primary Care Provider [phone] Jesse Chua RN Unavailable [phone] Dewey Ramey Unavailable Shanice Zarco MD Unavailable Renny Jamil Unavailable Chuy Falcon MD Unavailable Reason for Visit Reason Onset Date Comments Care Coordination Program 07/14/2014 Needs pre-op p hysical Pre-visit call 07/14/201407-16 Encounter Details Date Type Department Care Team Description 07/14/2014 Telephone [facility] Toma Care Coordination FAMILY MEDICINE Jesse Parish RN Program (Needs pre-op 2023 [facility] [phone] physical); Pre-visit [place] [address] (Work) call (07-16) [phone] Social History Tobacco Use Types Packs/Day Years [...] documented as of this encounter Miscellaneous Notes Addendum Note - Jesse Chua - 07/14/2014 4:37 PM TOLL MECHANIC Addended by: JESSE CHUA on: 07/14/2014 04:37 PM Modules accepted: Orders MECHANIC Telephone Encounter - Jesse Chua - 07/14/2014 4:37 PM CST Hold tube orders entered to be drawn on 07-15-14. MECHANIC Telephone Encounter - Jesse Chua - 07/14/2014 3:28 PM CST Subject: Care Coordination Pre visit Call Pt has appt with Deirdre Bedolla MD On SaturdayJul 16 for pre-op physical. Surgery is on Jul 22 at [facility] in [place]. stated Bill is having his current rechargeable spinal cordstimulator exchanged for non- rechargaeble type, and they will also move the leads to try to achieve better pain control. Allergies Reviewed - No Medications Reviewed - No Pt has updated Care Plan - yes Any visits with a specialists or other physicians since your last visit - yes, [facility] in [place]. Any changes in your health or behavior - Seeing [facility], denied any other concerns at this time. Objectives/Goals for the visit. What are the 2-3 questions or issues? 1. Pre-op physical. 2. Will come in for labs (BMP, a1c, and lipids) MECHANIC documented in this encounter Plan of Treatment Scheduled Orders Name Type Priority Associated Diagnoses Order S chedule HOLD EDTA Lab KIERSTEN Pre-op examination Expected: 07/15/2014, Expires: 07/17/2014 HOLD LI HEPARIN Lab KIERSTEN Pre-op examination Expect ed: 07/15/2014, Expires: 07/17/2014 documented as of this encounter Goals Goal Patient Goal Associated Recent Patient-Stated? 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 Note: Formatting of this [...] as of this encounter Visit Diagnoses Diagnosis Pre-op examination - Primary Preoperative examination, unspecified documented in this encounter Care Teams Logistical Engineer Relationship Specialty Start Date End Date Chioma PCP - General Family Medicine 06/04/11 01/03/17 Deirdre Mosher MD [address] [address] Jesse Chua RN Dairy Clerk Family Medicine 09/04/13 11/29/14 Марина RN Dewey Ramey Physician Other Pain Management 09/16/13 09/20/14 [facility] [address] [facility] [address] [place] [address] Shanice Zarco MD Physician Other Ophthalmology 10/05/[address] [place] [address] Renny Jamil Physician Other Neurosurgery 10/05/13 09/20/14 Chuy aFlcon, Physician Other Cardiology 07/16/14 523 [place] [address] Marshal Acosta Other Dental Alumni Relations Coordinator 10/05/13 [address] [place], [place] [phone] Dr Posey Other Audiology 10/05/13 [place], [place] documented as of this encounter
--- OUTSIDE RECORDS SUMMARY | 2022-06-07 20:57 | XMS_ITS | Encounter Summary ---
:1935 Author Organization [facility] Address [address] [address] Phone Care Team Providers Name Role Phone Deirdre Bedolla MD Primary Care Provider [phone] Jessica Chua RN Unavailable [phone] Dewey Ramey Unavailable Shanice Zarco MD Unavailable Renny Jamil Unavailable Reason for Visit Reason Comments Refill Request Encounter Details Date Type Department Care Team Description 07/07/2014 Refill [facility] Dany Bedolla Refill Request FAMILY MEDICINE MD N[place] [address] [address] [place] [address] (Wo rk) Social History Tobacco [...] Sig Dispensed Refills Start Date End Date DULoxetine (CYMBALTA) 60 TAKE ONE CAPSULE BY 90 Cap 0 04/27/2015 MG delayed release MOUTH ONE TIME DAILY capsule DO NOT CRUSH documented in this encounter Miscellaneous Notes Telephone Encounter - Luda Tovar RN - 07/09/2014 3:27 PM CST Wheelchair Driver has to send to you if it gives me cheaper alternatives when we go to fill this, patient is due to see you. Was last seen on 04/05/14. R GENERATOR SET OPERATOR documented in this encounter Plan of Treatment Not on filedocumented as of this encounter Goals Goal Patient Goal Associated Recent Patient-Stated? 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 Note: Formatting of this [...] Reason Start Date End Date DULoxetine (CYMBALTA) 60 Take 1 Cap by mouth 4 07/07/2014 MG capsule one time a day. Do not crush. documented as of this encounter Care Teams Music Professionals Relationship Specialty Start Date End Date YESENIA Bedolla - General Family Medicine 06/04/11 01/03/17 Deirdre Mosher MD [address] [place] [address] Jessica Chua RN Air Pollution Compliance Inspector Family Medicine 09/04/13 11/29/14 FIORDALIZA Parish Dewey Ramey Physician Other Pain Management 09/16/13 09/20/14 [facility] [address] [place] [address] [address] [place] [address] Shanice Zarco MD Physician Other Ophthalmology 10/05/[address] [place] [address] Renny Jamil S Physician Other Neurosurgery 10/05/13 09/20/14 Marshal Acosta Other Dental Layout Mechanic 10/05/[address] [place] [address] Posey Other Audiology 10/05/13 [place], [place] documented as of this encounter
--- OUTSIDE RECORDS SUMMARY | 2022-06-07 20:57 | XMS_ITS | Encounter Summary ---
:1935 Author Organization [facility] [facility] Address [address] [address] Phone Care Team Providers Name Role Phone Deirdre Bedolla MD Primary Care Provider [phone] Jessica Chua RN Unavailable [phone] Dewey Ramey Unavailable Shanice Zarco MD Unavailable Renny Jamil Unavailable Reason for Visit Reason Onset Date Comments Care Coordination Program 04/23/2014 PHQ-9 Encounter Details Date Type Department Care Team Description 04/23/2014 Telephone [facility] Toma Care Coordination FAMILY MEDICINE Jessica Parish RN Program (PHQ-9) 2023 [facility] [phone] [place] [address] (Work) [phone] Social History Tobacco Use Types Packs/Day Years [...] Notes Telephone Encounter - Jessica Chua - 04/23/2014 10:42 AM CDT PHQ-9 returned by mail. Entered into Epic. Patient notes the following DSM-IV Depression symptoms on a scale of 0-3: PHQ-9 04/23/2014 Total Score (SmartForm): 1 Anhedonia (SmartForm) Not at all Depressed Mood (SmartForm) Not at all Sleep Change (SmartForm) Several Days Fatigue (SmartForm) Not at all Appetite Change (SmartForm) Not at all Poor Self-esteem (SmartForm) Not at all Poor Concentration (SmartForm) Not at all Psychomotor Change (SmartForm) Not at all Suicidal Ideation (SmartForm) Not at all Difficulty Caused by Symptoms (SmartForm) Somewhat difficult (Typical scores: 0-4=no or minimal; 5-9=minor; 10-14 =mild major depression; 15- 19=moderate major depression; 20-27= severe major depression.) documented in this encounter Plan of Treatment Not on filedocumented as of this encounter Goals Goal Patient Goal Associated Recent Patient-Stated? 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 Note: Formatting of this [...] on filedocumented in this encounter Care Teams Instructional Systems Design Consultant Relationship Specialty Start Date End Date YESENIA Bedolla - General Family Medicine 06/04/11 01/03/17 Deirdre Mosher MD [address] [address] Jessica Chua RN Chlorinator Family Medicine 09/04/13 11/29/14 FIORDALIZA Parish Dewey Ramey Physician Other Pain Management 09/16/13 09/20/14 [facility] [address] [address] [place] [id number] Shanice Zarco MD Physician Other Ophthalmology 10/05/13 [address] [place] [address] Renny Jamil S Physician Other Neurosurgery 10/05/13 09/20/14 Marshal Acosta Other Dental Keno Writer 10/05/13 [address] [place], [place] [phone] Dr Posey Other Audiology 10/05/13 [place], [place] documented as of this encounter
--- OUTSIDE RECORDS SUMMARY | 2022-06-07 20:57 | XMS_ITS | Encounter Summary ---
:1935 Author Organization [facility] [facility] Address [address] [address] Phone Care Team Providers Name Role Phone Deirdre Bedolla MD Primary Care Provider [phone] Jessica Chua RN Unavailable [phone] Dewey Ramey Unavailable Shanice Zarco MD Unavailable Renny Jamil Unavailable Reason for Visit Reason Onset Date Comments Medication Question 05/12/2014 Encounter Details Date Type Department Care Team Description 05/12/2014 Telephone [facility] UROLOGY Yanni Ro, Medication Question [address] [place] [id number] Social History Tobacco Use Types Packs/Day Years [...] Miscellaneous Notes Telephone Encounter - Deloris Ro - 05/12/2014 2:30 PM CST Patient's was informed that i have never heard of getting vesicare for free. Patient's wasinformed she could try to contact the company that make vesicare but i have never heard of this. Patient's informed selling underwriter they were able to get her husbands celebrex for free. So she thought maybe they could get the vesicare for free too. GER CARDIAC CATH documented in this encounter Plan of Treatment Not on filedocumented as of this encounter Goals Goal Patient Goal Associated Recent Patient-Stated? 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 Note: Formatting of this note might be d ifferent from the original. Had spinal cord stimulator leads adjuste d in July 2014 and you said that you noticed some improvement. Dr. rCistobal recommended starting tramadol at bedtime at last appointment, and to try getting in a pool/swimming 3-4 days per week to see if that helps. documented as of this encounter Visit Diagnoses Not on filedocumented in this encounter Care Teams Hot Wire Glass Tube Cutter Relationship Specialty Start Date End Date Chioma PCP - General Family Medicine 06/04/11 01/03/17 Deirdre Mosher MD [address] [phone] Jessica Chua RN Manager Linux Family Medicine 09/04/13 11/29/14 E RN Dewey Ramey Physician Other Pain Management 09/16/13 09/20/14 [facility] [address] [facility] [address] [place] [address] Shanice Zarco MD Physician Other Ophthalmology 10/05/13 [address] [place] [address] Renny Jamil Physician Other Neurosurgery 10/05/13 09/20/14 Marshal Acosta Other Dental Tunnel Mucker 10/05/[address] [place] [address] [address] Posey Other Audiology 10/05/13 [place], [place] documented as of this encounter
--- OUTSIDE RECORDS SUMMARY | 2022-06-07 20:57 | XMS_ITS | Encounter Summary ---
:1935 Author Organization [employer] Address [address] [address] Phone Care Team Providers Name Role Phone Deirdre Bedolla MD Primary Care Provider [phone] Jessica Chua RN Unavailable [phone] Dewey Ramey Unavailable Shanice Zarco MD Unavailable Renny Jamil Unavailable Reason for Visit Reason Comments Epistaxis Encounter Details Date Type Department Care Team Description [facility]2014 [facility] Emergency MD Department [address] [address] [place], [place] [id number] (Wo rk) Social History Tobacco Use Types Packs/Day Years Used Date Smoking Tobacco: Never Smokeless Tobacco: Never Alcohol Use Standard Drinks/Week Comments No 0 (1 standard drink = 0.6 oz pure alcoho l) Sex Assigned at Date Recorded Not on file documented as of this encounter Last Filed Vital Signs Vital Sign Reading Time Taken Comments Blood Pressure 116/73 04/18/2014 4:40 PM CDT Pulse 84 04/18/2014 4:40 PM CDT Temperature - - Respiratory Rate 16 04/18/2014 4:40 PM CDT Oxygen Saturation 96% 04/18/2014 4:40 PM CDT Inhaled Oxygen Concentration - - Weight 92.5 kg (204 lb) 04/18/2014 4:40 PM CDT Height 177.8 cm (5' 10) 04/18/2014 4:40 PM CDT Body Mass Index 29.27 04/18/2014 4:40 PM CDT documented in this encounter Functional Status Functional Status Response Date of Assessment Patient's Vision Adequate to Safely Complete Daily No 04/18/2014 Activities Cognitive Status Response Date of Assessment Patient's Judgment Adequate to Safely Complete Daily No 04/18/2014 Activities documented as of this encounter Discharge Instructions AttachmentsThe following attachments cannot be sent through Care Everywhere. EPISTAXIS (ADULT) (MALAWIAN)documented in this encounter Medications at Time of [...] day. sennosides-docusate sodium Take 2 Tabs by 100 Tab 0 10/10 (SENOKOT-S) 8.6-50 MG per mouth one time a tablet day. ASPIRIN LOW DOSE 81 MG 81 mg 1 tablet, 81.000 0 08/05/19 10 tablet ORAL, DAILY, 08/05/09 14:22:55 cephALEXin (KEFLEX) 500 MG Take 1 Cap by mouth 15 Cap 0 04/18/2014 04/23/2014 capsule three times a day for 5 days. documented as of this encounter Ordered Prescriptions Prescription Sig Dispensed Refills Start Date End Date cephALEXin (KEFLEX) 500 MG Take 1 Cap by mouth 15 Cap 0 04/18/2014 04/23/2014 capsule three times a day for 5 days. documented in this encounter Discharge Disposition Disposition Code Departure Means Destination Home and/or Self Intermediate documented in this encounter ED Notes Billy Samuel MD - 04/18/2014 7:07 PM CDT Patient: Simon Castillo Chief Complaint: Epistaxis History of Present Illness: HPI Comments: Patient presents with for evaluation of epistaxis. The patient had an onset of bleeding earlier today the right nostril and was seen in urgent care and had cauterization anteriorly in the right nostril. Initially this seemed to resolve the bleeding but again around 4 PM he began to have bleeding again mainly from the right side but some going across to the left side. He did start some Kleenex into the right nostril and came here with . He denies any dizziness or significant blood loss. He denies history of anemia and is on aspirin and Plavix. He denies any other areas of bleeding. He denies pain, injury, fever, congestion, and does not know of any reason why it started otherthan the dry air. He has not had any recent nasal congestion and denies any history of lesions. He did have a short lasting nosebleed from the right side 2 days ago. Patient is a 78 year old male presenting with EPISTAXIS. The history is provided by the patient and the spouse. Epistaxis Associated symptoms: no congestion Review of Systems: Review of Systems Constitutional: Negative. HENT: Negative for congestion. Respiratory: Negative. Cardiovascular: Negative. Gastrointestinal: Negative. Genitourinary: Negative. Musculoskeletal: Negative. Skin: Negative. Neurological: Negative. Hematological: Negative. Allergies Allergen Reactions ??? Penicillins Prior to Admission Medication List Last Medication Reconciliation Action: ED Triage Only Suellen Aguilar RN 04/18/2014 4:42 PM ASPIRIN LOW DOSE 81 MG tablet 81 mg 1 tablet, ORAL, DAILY, 08/05/09 14:22:55 Ascorbic Acid (VITAMIN C) 500 MG CAPS Take 500 mg by mouth one time a day. DULoxetine (CYMBALTA) 60 MG capsule Take 1 Cap by mouth one time a day. Do not crush. Multiple Vitamin (MULTIVITAMIN) tablet Take 1 Tab by mouth one time a day. amLODIPine (NORVASC) 5 MG tablet Take one tablet by mouth one time daily atenolol (TENORMIN) 25 MG tablet Take 1 Tab by mouth one time a day. atorvaSTATin (LIPITOR) 40 MG tablet Take 1 Tab by mouth at bedtime. celecoxib (CELEBREX) 200 MG capsule Take 1 Cap by mouth one time a day. Indications: Back Pain clopidogrel (PLAVIX) 75 MG tablet Take 1 Tab by mouth one time a day. finasteride (PROSCAR) 5 MG tablet Take 1 Tab by mouth one time a day. Do not crush. gabapentin (NEURONTIN) 300 MG capsule Take 2 Caps by mouth three times a day. pantoprazole (PROTONIX) 40 MG tablet Take one tablet by mouth one time daily do not crush polyethylene glycol 3350 (MIRALAX) powder MIX 17 GRAMS (ONE CAPFUL) IN LIQUID AND DRINK EVERY DAY FORCONSTIPATION. potassium chloride CR (K-DUR, KLOR-CON M) 20 MEQ tablet TAKE ONE TABLET BY MOUTH ONE TIME DAILY sennosides-docusate sodium (SENOKOT-S) 8.6-50 MG per tablet Take 2 Tabs by mouth one time a day. solifenacin (VESICARE) 10 MG tablet Take 1 Tab by mouth one time a day. tamsulosin (FLOMAX) 0.4 MG 24 hour capsule Take 1 Cap by mouth one time a day. Capsules should be swallowed whole; do not crush, chew, or open Ongoing Comment Jessica Chua RN 10/05/2013 11:28 AM Person that helps with medications: Yes, Mary Ann How medications are managed: Mary Ann sets up every night. Medications are taken: By mouth Durable medical Supplier: Unknown Specific Med/pharmacy preferences: [facility] in [place] Past Medical History: Past Medical History Diagnosis Date ??? DM type 2 (diabetes mellitus, type 2) ??? Hypertension ??? 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 CAD (coronary artery disease) with history of LA and stent placement ??? Hyperlipidemia ??? Diverticulosis [...] Spinal Cord Stimulator (Medtronic), Dr Ramey at [facility] ??? Cmplx cmg/void pressure study 04/07/2014 Dr. Ruiz Family History: No family history on file. Social History: He reports that he has never smoked. He has never used smokeless tobacco. He reports that he does not drink alcohol. Exam: BP 116/73 Pulse 84 Resp 16 Ht 1.778 m (5' 10) Wt 92.534 kg (204 lb) BMI 29.27 kg/m2 SpO2 96% Physical Exam: Physical Exam Constitutional: He is oriented to person, place, and time. No distress. HENT: Patient does have slow oozing of blood from the right nostril. Left-sided facet some dried blood butno indication of primary epistaxis. Nasal septums intact. There is a large clot in the posterior right nostril. There is some dark blood in the posterior pharynx but no significant bleeding or clot noted. Neck: Neck supple. Cardiovascular: Normal rate and regular rhythm. Pulmonary/Chest: Effort normal and breath sounds normal. Abdominal: Soft. Normal appearance and bowel sounds are normal. There is no tenderness. Musculoskeletal: Normal range of motion. Neurological: He is alert and oriented to person, place, and time. Skin: Skin is warm and dry. Nursing note and vitals reviewed. Other Results: Emergency Department Course: Patient's right nostril was cleared by patient blowing his nose with full clot removed. Previous cauterization in the anterior right nostril noted but no bleeding from that area and appears to be posterior. No active bleeding from the left side. A small amount of Pontocaine was sprayed into the rightnostril. Following that a 5.5 Rhino Rocket was inserted into the right nostril. I initially tried a 7.5 but would meet resistance about three [address] and would not pass further. 5.5 fit nicely with resolution of bleeding. Proximal with 5 cc of air was inflated into the balloon. Patient tolerated well. Patient has been observed for several hours with no further bleeding. Patient will be discharged home and should follow up with ENT in 2-3 days and should call tomorrow to schedule this appointment. He will be placed on Keflex which he has tolerated in the past while nasal balloon is in place. He should return if further bleeding, fever, discomfort, dizziness, or other concerns. I offeredto check a hemoglobin but was declined. Given bleeding was easily controlled I do not see any indication to stop his aspirin or Plavix at this time given this is a required medication for him. Procedures: Procedures Assessment: (104.7) Epistaxis (primary encounter diagnosis) Plan: Discharge Prescriptions Medication Sig Dispense Start Date End Date Auth. Provider cephALEXin (KEFLEX) 500 MG capsule Take 1 Cap by mouth three times a day for 5 days. 15 Cap 04/18/2014 04/23/2014 Billy Samuel MD [facility] Billy Samuel MD 04/18/141911 Adri Adrian RN - 04/18/2014 7:00 PM CDT Rhino rocket in place, right nostril. Bleeding controlled. Keflex given as documented. Reviewed discharge instructions with patient and patient's . Verbalized understanding. Prescription e scribed to patient's pharmacy per MD. Adri Adrian RN - 04/18/2014 6:25 PM CDT Awaiting disposition. Adri Adrian RN - 04/18/2014 5:25 PM CDT MD is with patient at this time. Adri Adrian RN - 04/18/2014 4:50 PM CDT Was seen at Urgent Care around noon today for a nose bleed. Right nostril cauterized at that time. Nose started bleeding again about 1500, mostly from the right nostril. Small bloody drainage also noted from the left nostril. Right nostril packed with tissue. Nose clip in place. Patient states he takes Plavix. uellen Luther RN - 04/18/2014 4:35 PM CDT Seen at Urgent Care at 1200 for epistaxis, had nares cauterized. States it started bleeding again a few hours later documented in this encounter Plan of Treatment Not on filedocumented as of this encounter Goals Goal Patient Goal Associated Recent Patient-Stated? 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 Note: Formatting of this [...] as of this encounter Visit Diagnoses Diagnosis Epistaxis - Primary documented in this encounter Administered Medications Inactive Administered Medications Medication Order MAR Action Action Date Dose Rate Site cephALEXin (KEFLEX) capsule 500 mg Given 04/18/2014 6:54 PM CDT 500 mg 500 mg, Oral, ONCE, 1 dose, On 04/18/14 at 1900 documented in this encounter Discontinued Medications Medication Sig Discontinue Reason Start Date End Date ciprofloxacin (CIPRO) 500 Take 1 Tab by Deleted via home med 201304/18/2014 MG tablet mouth two times review a day. documented as of this encounter Active and Recently Administered Medications Times are shown in CDT. Scheduled Medication Order 04/16/2014 04/17/2014 04/18/2014 cephALEXin (KEFLEX) capsule 500 mg (COMPLETED) 9103 (Given - Provider: Adri Adrian RN) 500 mg, Oral, ONCE, 1 dose, 04/18/14 at 1900 documented in this encounter Care Teams Traffic Signal Mechanic Relationship Specialty Start Date End Date YESENIA Bedolla - General Family Medicine 06/04/11 01/03/17 Deirdre Mosher MD [address] [address] Jessica Chua RN Manufacturers Representative Family Medicine 09/04/13 11/29/14 Марина RN Dewey Ramey Physician Other Pain Management 09/16/13 09/20/14 [facility] [address] [facility] [address] [place] [address] Shanice Zarco MD Physician Other Ophthalmology 10/05/[address] [place] [address] Renny Jamil Physician Other Neurosurgery 10/05/13 09/20/14 Marshal Acosta Other Dental Aviation Operations Specialist 10/05/13 [address] [place], [place] [id number] Dr Posey Other Audiology 10/05/13 [place], [place] documented as of this encounter
--- OUTSIDE RECORDS SUMMARY | 2022-06-07 20:57 | XMS_ITS | Encounter Summary ---
:1935 Author Organization [employer] Address [address] [address] Phone Care Team Providers Name Role Phone Deirdre Bedolla MD Primary Care Provider [phone] Jessica Chua RN Unavailable [phone] Dewey Ramey Unavailable Shanice Zarco MD Unavailable Renny Jamil Unavailable Chuy Falcon MD Unavailable Reason for Visit Reason Onset Date Comments Care Coordination Program 07/16/2014 Post-visit call 07/16/2014 Dr Cristobal, 07-16-14 Encounter Details Date Type Department Care Team Description 07/16/2014 Telephone [facility] Toma Care Coordination FAMILY MEDICINE Jessica Parish RN Program; Post-visit call [address] [facility] [phone] (Dr Cristobal, 07-16-14); [place] [address] (Work) [phone] Social History Tobacco Use Types Packs/Day Years [...] Notes Telephone Encounter - Deloris Ro - 07/16/2014 1:29 PM CST Patients was informed Vesicare was ordered in April with 12 refills. The patients was informed to call in for it to be refilled. If she has any problems she can have the pharmacy call or fax us. Patients was receptive to information. OGLYCERIN SUPERVISOR Telephone Encounter - Deloris Ro - 07/16/2014 1:28 PM CST ----- Message from Yanet Garrido sent at 07/16/2014 12:30 PM NITROGLYCERIN SUPERVISOR ----- Contact: self qualey Date: 07/16/2014 Time: 12:31 PM May we leave a message: Yes / ok to speak with his Patient's Date of : 1935 Person Calling: self Phone Number: Home phone [phone] (home) Reason for call: He would like a prescription of the meds Dr Ramirez gave them [facility]acy: [facility] Allergies: -- Penicillins Thank you, Yanet Garrido [facility] Urology [facility] [phone] OGLYCERIN SUPERVISOR Telephone Encounter - Jessica Chua - 07/16/2014 12:28 PM NITROGLYCERIN SUPERVISOR Subject: Care Coordination Post visit Reviewed notes from office visit with Deirdre Bedolla MD on 07/16/2014 - note not yet available. Discussed with Dr Cristobal in person. . Changes made to Care Plan. Met with Joe in the clinic, and Call placed to his Mary Ann to discuss and review: 1. Mary Ann has been holding Bill's Plavix since Saturday. She said that in the past Joe's meal packer Dr Falcon said when he is having a procedure to hold Plavix and increase aspirin to 325mg daily, so that is what Mary Ann has been doing. Contact Dr Falcon's office at [facility] [place] and nurse Louise confirmed this is the recommendation. Spoke with Shannen, nurse with [facility] who said that Dr Quintero (surgeon) said it was okay for Joe to continue on aspirin. Assemblyman [employer] Woman did call Shannen back to clarify with her that Joe has increased his aspirin to 325mg daily. She said she would relay to Dr Quintero and let us know if any concerns. 2. Requested records from [facility] and [facility] [place]. 3. Faxed a copy of labs to Dr Falcon at [facility] for Joe's apt on Jul 20. 4. Mirapex - discussed with Mary Ann. She was ok with not starting anything at this time. 5. [employer] patient assistance for Celebrex - original application was given back to Joe. He brought in a release form from [employer] that creative writer will route to medical records.Discussed with Mary Ann and she said it is the general patient information she has to complete each month, she didn't think Joe needs a new prescription each both. 6. Joe said he is going to be in [facility] for about a month, Aug 17-September 14. Pt and his did verbalize understanding of as above. Planned follow up: [address] Cristobal - this was scheduled. Dr Falcon - Jul 20 OGLYCERIN SUPERVISOR documented in this encounter Plan of Treatment Not on filedocumented as of this encounter Goals Goal Patient Goal Associated Recent Patient-Stated? 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 Note: Formatting of this [...] on filedocumented in this encounter Care Teams Rn Dialysis Relationship Specialty Start Date End Date Chioma, PCP - General Family Medicine 06/04/11 01/03/17 Deirdre Mosher MD [address] [address] Jessica Chua RN Assembler Sandal Parts Family Medicine 09/04/13 11/29/14 Марина RN Dewey Ramey Physician Other Pain Management 09/16/13 09/20/14 [facility] [address] [address] [place] [address] Shanice Zarco MD Physician Other Ophthalmology 10/05/[address] [place] [address] Renny Jamil Physician Other Neurosurgery 10/05/13 09/20/14 Chuy Falcon, Physician Other Cardiology 07/16/14 [address] [place] [address] Marshal Acosta Other Dental Peoplesoft Crm Developer 10/05/13 [address] [place] [address] Dr Posey Other Audiology 10/05/13 [place], [place] documented as of this encounter
--- OUTSIDE RECORDS SUMMARY | 2022-06-07 20:57 | XMS_ITS | Encounter Summary ---
:1935 Author Organization [employer] Address [address] [address] Phone Care Team Providers Name Role Phone Deirdre Bedolla MD Primary Care Provider [phone] Jessica Chua RN Unavailable [phone] Dewey Ramey Unavailable Shanice Zarco MD Unavailable Renny Jamil Unavailable Reason for Visit Reason Onset Date Comments Medication Information 07/02/2014 Encounter Details Date Type Department Care Team Description 07/02/2014 Telephone [facility] UROLOGY Louise Petersen, Medication Information [address] [place] [id number] Social History Tobacco Use Types Packs/Day Years [...] this encounter Miscellaneous Notes Telephone Encounter - Louise Petersen - 07/02/2014 1:04 PM CST Left message to return call. D MECHANICAL METER TESTER Telephone Encounter - Louise Petersen - 07/02/2014 12:56 PM CST ----- Message from Sue Liz sent at 07/02/2014 12:41 PM FIELD MECHANICAL METER TESTER ----- Contact: Mary Ann walker Qualey Date: 07/02/2014 Time: 12:42 PM May we leave a message: yes Patient's Date of : 1935 Person Calling: Mary Ann Hagan Phone Number: Home phone [phone] (home) Reason for call: Pt needs a refill on prescription. Allergies: -- Penicillins Thank you, Sue Liz [facility] Urology [phone] D MECHANICAL METER TESTER documented in this encounter Plan of Treatment Not on filedocumented as of this encounter Goals Goal Patient Goal Associated Recent Patient-Stated? 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 Note: Formatting of [...] on filedocumented in this encounter Care Teams Supervisor Opening And Picking Relationship Specialty Start Date End Date YESENIA Bedolla - General Family Medicine 06/04/11 01/03/17 Deirdre Mosher MD [address] [facility] [place] [address] Jessica Chua RN Gearman Family Medicine 09/04/13 11/29/14 FIORDALIZA Parish Dewey Ramey Physician Other Pain Management 09/16/13 09/20/14 [facility] [address] [place] [address] [address] [place] [address] Shanice Zarco MD Physician Other Ophthalmology 10/05/[address] [place] [address] Renny Jamil S Physician Other Neurosurgery 10/05/13 09/20/14 Marshal Acosta Other Dental Cigar Head Puncher 10/05/13 [address] [place], [place] [id number] Dr Posey Other Audiology 10/05/13 [place], [place] documented as of this encounter
--- OUTSIDE RECORDS SUMMARY | 2022-06-07 20:57 | XMS_ITS | Encounter Summary ---
:1935 Author Organization [employer] Address [address] [address] Phone Care Team Providers Name Role Phone Deirdre Bedolla MD Primary Care Provider [phone] Jessica Chua RN Unavailable [phone] Dewey Ramey Unavailable Shanice Zarco MD Unavailable Renny Jamil Unavailable Reason for Visit Reason Onset Date Comments Refill Request 04/13/2014 Encounter Details Date Type Department Care Team Description 04/13/2014 Refill [facility] FAMILY XaviJerry LPN Refill Request MEDICINE 2023 [facility] [place] [address] Social History Tobacco Use Types Packs/Day Years Used Date Smoking Tobacco: Never Smokeless Tobacco: Never Alcohol Use Standard Drinks/Week Comments No 0 (1 standard drink = 0.6 oz pure alcoho l) Sex Assigned at Date Recorded Not on file documented as of this encounter Ordered Prescriptions Prescription Sig Dispensed Refills Start Date End Date celecoxib (CELEBREX) 200 Take 1 Cap by mouth 90 Cap 3 05/06/2015 MG capsuleIndications: one time a day. Back Pain Indications: Back Pain documented in this encounter Plan of Treatment Not on filedocumented as of this encounter Goals Goal Patient Goal Associated Recent Patient-Stated? 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 Note: Formatting of this [...] 200 Take 1 Cap by mouth 4 04/13/2014 MG capsuleIndications: one time a day. Back Pain Indications: Back Pain documented as of this encounter Care Teams [place] Home Servicer Relationship Specialty Start Date End Date Chioma PCP - General Family Medicine 06/04/11 01/03/17 Deirdre Mosher MD [address] [id number] Jessica Chua RN Guide Setter Family Medicine 09/04/13 11/29/14 Марина RN Dewey Ramey Physician Other Pain Management 09/16/13 09/20/14 [facility] [address] [address] [place] [address] Shanice aZrco MD Physician Other Ophthalmology 10/05/13 [address] [place] [address] Renny Jamil Physician Other Neurosurgery 10/05/13 09/20/14 Marshal Acosta Other Dental Agricultural Lender 10/05/13 [address] [place], [place] [phone] Dr Posey Other Audiology 10/05/13 [place], [place] documented as of this encounter
--- OUTSIDE RECORDS SUMMARY | 2022-06-07 20:57 | XMS_ITS | Encounter Summary ---
:1935 Author Organization [employer] Address [address] [address] Phone Care Team Providers Name Role Phone Deirdre Bedolla MD Primary Care Provider [phone] Jessica Chua RN Unavailable [phone] Dewey Ramey Unavailable Shanice Zarco MD Unavailable Renny Jamil Unavailable Chuy Falcon MD Unavailable Reason for Visit Reason Comments Refill Request Encounter Details Date Type Department Care Team Description 08/13/2014 Refill [facility] Mabel Bedolla Refill Request FAMILY MEDICINE MD Nomi 2023 [facility] [address] [address] [place], [place] [address] (Wo rk) Social History Tobacco Use Types [...] a my back pain at E, 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 Note: Formatting of this [...] on filedocumented in this encounter Care Teams Advisory Internship Relationship Specialty Start Date End Date Chioma PCP - General Family Medicine 06/04/11 01/03/17 Deirdre Mosher MD [address] [address] Jessica Chua RN Side Hemmer Family Medicine 09/04/13 11/29/14 Марина RN Dewey Ramey Physician Other Pain Management 09/16/13 09/20/14 [facility] [address] [address] [place] [address] Shanice Zarco MD Physician Other Ophthalmology 10/05/[address] [place] [address] Renny Jamil Physician Other Neurosurgery 10/05/13 09/20/14 Chuy Falcon, Physician Other Cardiology 07/16/14 523 [place] [address] Marshal Acosta Other Dental Fish Hatchery Specialist 10/05/13 [address] [place] [address] Dr Posey Other Audiology 10/05/13 [place], [place] documented as of this encounter
--- OUTSIDE RECORDS SUMMARY | 2022-06-07 20:57 | XMS_ITS | Encounter Summary ---
:1935 Author Organization [employer] Address [address] [address] Phone Care Team Providers Name Role Phone Deirdre Bedolla MD Primary Care Provider [phone] Jessica Chua RN Unavailable [phone] Dewey Ramey Unavailable Shanice Zarco MD Unavailable Renny Jamil Unavailable Reason for Visit Reason Onset Date Comments Care Coordination Program 04/21/2014 Post-visit call 04/21/2014 ER Follow up Encounter Details Date Type Department Care Team Description 04/21/2014 Telephone [facility] Penny Chua FAMILY MEDICINE Jessica Parish RN Program; Post-visit call 2023 [facility] [phone] (ER Follow up) FAHEEM Burdick [address] (Work) [phone] Social History Tobacco Use Types Packs/Day Years [...] Notes Telephone Encounter - Jessica Chua - 04/27/2014 8:21 AM CDT Reviewed note by Dr Farnsworth on 04/21/14. Telephone Encounter - Jessica Chua - 04/21/2014 1:45 PM CDT Subject: Care Coordination Post visit Reviewed notes from ER visit on 04/18/14. Note not yet available from office visit with Dr Farnsworth on 04/21/14. Changes not made to Care Plan. Call placed to pt to discuss and review: 1. Rhino rocket placed, Keflex prescribed, apt with ENT in 2-3 days. 2. Detailed notes in patient instructions of AVS from visit with Dr Farnsworth regarding care of nosebleed. 3. Dr Farnsworth prescribed two different kinds of ear drops. Pt did verbalize understanding of: I'm doing okay - it's a beautiful day out today. Bill denied recurrence of nosebleed today. Denied any other concerns. Planned follow up: Deirdre Bedolla MD due end of June but not scheduled. documented in this encounter Plan of Treatment Not on filedocumented as of this encounter Goals Goal Patient Goal Associated Recent Patient-Stated? Author Type Problems Progress I want to work Lifestyle Epidural No Wistrom-T he towards getting abscess sing, Lorena a my back pain at E, PRINTED CIRCUIT BOARDS CONTACT PRINTER, a lower and HAT PARTS CUTTER MACHINE more tolerable level. Note: Formatting of this [...] filedocumented in this encounter Care Teams Cnc Operator Programmer Relationship Specialty Start Date End Date Chioma, PCP - General Family Medicine 06/04/11 01/03/17 Deirdre Mosher MD [address] [id number] Jessica Chua RN Two Way Radio Installer Family Medicine 09/04/13 11/29/14 Марина RN Dewey Ramey Physician Other Pain Management 09/16/13 09/20/14 [facility] [address] [address] [place] [address] Shanice Zarco MD Physician Other Ophthalmology 10/05/13 [address] [place] [address] Renny Jamil Physician Other Neurosurgery 10/05/13 09/20/14 Marshal Acosta Other Dental Block Tester 10/05/[address] [place] [address] Posey Other Audiology 10/05/13 [place], [place] documented as of this encounter
--- OUTSIDE RECORDS SUMMARY | 2022-06-07 20:57 | XMS_ITS | Encounter Summary ---
:1935 Author Organization [employer] Address [address] [address] Phone Care Team Providers Name Role Phone Deirdre Bedolla MD Primary Care Provider [phone] Jessica Chua RN Unavailable [phone] Dewey Ramey Unavailable Shanice Zarco MD Unavailable Renny Jamil Unavailable Reason for Visit Reason Comments Refill Request Plavix Encounter Details Date Type Department Care Team Description 04/19/2014 Refill [facility] Riaz Bedolla efill Request (Plavix) FAMILY MEDICINE Deirdre Mosher MD 2023 [facility] [address] [address] [place], [place] [address] (Wo rk) Social History Tobacco Use Types [...] Date End Date clopidogrel (PLAVIX) 75 MG Take one tablet by 90 Tab 0 1 08/08/2014 tablet mouth one time daily documented in this encounter Miscellaneous Notes Telephone Encounter - Luda Tovar RN - 04/19/2014 2:16 PM CDT Patient's medication list, allergies, last labs, and last office visit pertaining to this specific medication have been reviewed during this refill encounter. Medication refilled per protocol. [facility] documented in this encounter Plan of Treatment Not on filedocumented as of this encounter Goals Goal Patient Goal Associated Recent Patient-Stated? 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 Note: Formatting of this [...] Start Date End Date clopidogrel (PLAVIX) 75 Take 1 Tab by mouth 04/06/2013 04/19/2014 MG tablet one time a day. documented as of this encounter Care Teams Repair Armature Winder Helper Relationship Specialty Start Date End Date YESENIA Bedolla - General Family Medicine 06/04/11 01/03/17 Deirdre Mosher MD [address] [place] [address] Jessica Chua RN Piston Maker Family Medicine 09/04/13 11/29/14 FIORDALIZA Parish Dewey Ramey Physician Other Pain Management 09/16/13 09/20/14 [facility] [address] [place] [address] [address] [place] [address] Shanice Zarco MD Physician Other Ophthalmology 10/05/13 [address] [place] [address] Renny Jamil S Physician Other Neurosurgery 10/05/13 09/20/14 Marshal Acosta Other Dental Director Of Agriculture 10/05/[address] [place] [address] Posey Other Audiology 10/05/13 [place], [place] documented as of this encounter
--- OUTSIDE RECORDS SUMMARY | 2022-06-07 20:57 | XMS_ITS | Encounter Summary ---
:1935 Author Organization [employer] Address [address] [address] Phone Care Team Providers Name Role Phone Deirdre Bedolla MD Primary Care Provider [phone] Jessica Chua RN Unavailable [phone] Dewey Ramey Unavailable Shanice Zarco MD Unavailable Renny Jamil Unavailable Reason for Visit Reason Onset Date Comments Refill Request 04/12/2014 Celebrex Encounter Details Date Type Department Care Team Description 04/12/2014 Telephone [facility] Toma, Refill Request FAMILY MEDICINE Jessica Parish RN (Celebrex) 2023 [facility] [phone] [place] [address] (Work) [phone] Social History Tobacco Use Types Packs/Day Years [...] 1 Cap by mouth 90 Cap 3 04/13/2014 MG capsuleIndications: one time a day. Back Pain Indications: Back Pain documented in this encounter Miscellaneous Notes Telephone Encounter - Jessica Chua - 04/20/2014 8:52 AM CDT Joe called last Saturday, Apr 16, asking for assistance. 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 He said he had not paid that much before. Pull Tab Dealer [facility] and staff person said that Joe reached his 'donut hole' for Medicare and could haveto pay more for his medications. Called back and reviewed this with his Mary Ann. We talked about patient assistance through [employer] and she was interested in an application for Joe. Prescription portion was completed by Deirdre Cristobal MD and application mailed to Joe. Telephone Encounter - Jessica Chua - 04/13/2014 9:45 AM CDT Patient's notified that refill request was approved. Telephone Encounter - Jessica Chua - 04/12/2014 3:34 PM CDT Joe's Mary Ann called. She said that Joe was in need of a refill on his Celebrex 200mg one time a day. This medication was started by a provider named Dr Agustín Ross with [facility], but they were wondering if Dr Cristobal would be willing to prescribe instead of Dr Ross, as it doesn't sound like he sees him on an on-going basis. Will submit to Dr Cristobal as a refill request. documented in this encounter Plan of Treatment Not on filedocumented as of this encounter Goals Goal Patient Goal Associated Recent Patient-Stated? 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 Note: Formatting of this [...] Date End Date celecoxib (CELEBREX) 200 Take 200 mg by 01/13/2014 1 MG capsuleIndications: mouth one time a Back Pain day. Indications: Back Pain documented as of this encounter Care Teams Hr Leader Relationship Specialty Start Date End Date Chioma PCP - General Family Medicine 06/04/11 01/03/17 Deirdre Mosher MD [address] [address] Jessica Chua RN Non Licensed Nuclear Equipment Operator Family Medicine 09/04/13 11/29/14 FIORDALIZA Parish Dewey Ramey Physician Other Pain Management 09/16/13 09/20/14 [facility] [address] [facility] [address] [place] [address] Shanice Zarco MD Physician Other Ophthalmology 10/05/13 [address] [place] [address] Renny Jamil Physician Other Neurosurgery 10/05/13 09/20/14 Marshal Acosta Other Dental Cider Press Operator 10/05/13 [address] [place] [address] Dr Posey Other Audiology 10/05/13 [place], [place] documented as of this encounter
--- OUTSIDE RECORDS SUMMARY | 2022-06-07 20:57 | XMS_ITS | Encounter Summary ---
:1935 Author Organization [employer] Address [address] [address] Phone Care Team Providers Name Role Phone Deirdre Bedolla MD Primary Care Provider [phone] Jessica Chua RN Unavailable [phone] Dewey Ramey Unavailable Shanice Zarco MD Unavailable Renny Jamil Unavailable Chuy Falcon MD Unavailable Reason for Visit Reason Comments Pre-Op Encounter Details Date Type Department Care Team Description 07/16/2014 Office Visit HEAVENLY Bedolla Pre-op e xam (Primary Dx); CLINIC FAMILY Deirdre Mosher MD Epidural abscess MEDICINE 2023 [place] [address] [place] [address] [phone] Social History Tobacco Use Types Packs/Day Years Used Date Smoking Tobacco: Never Smokeless Tobacco: Never Alcohol Use Standard Drinks/Week Comments No 0 (1 standard drink = 0.6 oz pure alcoho l) Sex Assigned at Date Recorded Not on file documented as of this encounter Last Filed Vital Signs Vital Sign Reading Time Taken Comments Blood Pressure 136/81 07/16/2014 10:57 AM PERINATAL TECHNICIAN Pulse 78 07/16/2014 10:57 AM PERINATAL TECHNICIAN Temperature - - Respiratory Rate - - Oxygen Saturation - - Inhaled Oxygen Concentration - - Weight 94.3 kg (208 lb) 07/16/2014 10:57 AM PERINATAL TECHNICIAN Height 172.7 cm (5' 8) 07/16/2014 10:57 AM PERINATAL TECHNICIAN Body Mass Index 31.63 07/16/2014 10:57 AM PERINATAL TECHNICIAN documented in this encounter Functional Status Functional Status Response Date of Assessment Patient's Vision Adequate to Safely Complete Daily No 04/18/2014 Activities Cognitive Status Response Date of Assessment Patient's Judgment Adequate to Safely Complete Daily No 04/18/2014 Activities documented as of this encounter Patient Instructions Patient InstructionsMaann-Deirdre Cristobal MD - 07/16/2014 11:23 AM PERINATAL TECHNICIAN I will have Jessica talk with your legal summer intern to see what he says about stopping the Plavix and aspirin. Make sure you stop the Celebrex for now until after the surgery, Tylenol is OK. If these things are not helping your pain, we could re- try medications and you may respond differently now that your overall health has improved. I do think a medication like Mirapex may help your legs, but I am very hesitant to add another medication as it doesn't sound like this bothers you at all. NATAL TECHNICIAN documented in this encounter Progress Notes Deirdre Bedolla MD - 07/19/2014 3:57 AM CST [facility] Patient Name: AAMIR CASTILLO Date of Service: 07/16/2014 : 1935 Age: 78Y Sex: M Site MRN: Patient Loc/Room #: [facility] / Provider: Deirdre Bedolla MD, Family Practice OFFICE NOTE SITE: [facility] SUBJECTIVE: Joe is here today for a preop. He will be having reimplantation of a spinal cord stimulator on July 22. Has an appointment with his legal summer intern on the . Still suffering with somepain. The Celebrex has been quite helpful, however. PAST MEDICAL HISTORY: 1. Coronary artery disease with an SD in 1989. Had right coronary stenting at that time and then an SD again in June 2012, which was restenosis of that stent. He had bare-metal stents and coded in the ambulance on the way to [address]. Does follow with cardiology. 2. Type 2 diabetes, been off meds since weight loss. May need to consider reinitiating metformin in the future here. 3. History of epidural abscess, diskitis, and osteomyelitis. ID has taken him off antibiotics, but he is intolerant of narcotics and does suffer with quite a bit of chronic pain. 4. Reflux. 5. Hyperlipidemia. 6. Hypertension. 7. History of cervical neck fracture. 8. Benign prostatic hypertrophy. 9. Erectile dysfunction. 10. Hypokalemia by history. 11. Chronic hearing loss. SURGICAL HISTORY: 1. Spinal cord stimulator placement. 2. Rotator cuff repair. 3. Left hip replacement. 4. Neck surgery after fracture. 5. Appendectomy. 6. Hemorrhoidectomy. 7. Tonsillectomy. 8. Cataract surgery. 9. Low back surgery. 10. No bleeding or anesthesia trouble. FAMILY HISTORY: Negative for bleeding or anesthesia trouble. SOCIAL HISTORY: Nonsmoker, nondrinker. , retired. MEDICATIONS: 1. Cymbalta 60 mg daily. 2. Norvasc 5 daily. 3. VESIcare 10 mg daily. 4. Plavix 75 daily. 5. Celebrex 200 daily. 6. Proscar 5 mg daily. 7. Lipitor 40. 8. Protonix 40 daily. 9. Vitamin C daily. 10. Potassium 20 mEq daily. 11. Gabapentin 300 mg 2 tablets 3 times daily. 12. Flomax a 0.4 once daily. 13. Atenolol 25 daily. 14. MiraLAX as needed. 15. Multivitamin. 16. Senna as needed. 17. Baby aspirin. ALLERGIES: PENICILLIN. REVIEW OF SYSTEMS: Other than the chronic back pain, complete twelve-point review of systems was obtained and is negative. EXAM: Height is 68, weight 208, blood pressure 136/81, pulse 78 and regular. Generally pleasant, nontoxic, no acute distress. HEENT - head atraumatic, normocephalic. Conjunctivae are clear. TMs - clear. Nares - patent, no drainage. Posterior pharynx - unremarkable. Neck - supple. No lymphadenopathy. Thyroid - normal. Heart is regular in rate and rhythm. Respiratory - he is breathing comfortably and lungs are clear. Abdomen is soft, nondistended, nontender to palpation in all 4 quadrants. No organomegaly. Extremities - no edema. ASSESSMENT AND PLAN: 1. Preop for spinal cord stimulator secondary to chronic back pain related to his abscess and history of infected hardware. I do think he is okay for the surgery, but I certainly want him to visit withhis legal summer intern first. He does have an appointment scheduled and we will see what they say. I did ask our child care associate teacher Jessica to discuss with cardiology what they want him to do with his Plavix and aspirin. For now, we will stop his Celebrex until the surgery. He did have labs done before today's visit, which were good, but again any cardiology clearance should come from his specialist. 2. Type 2 diabetes. A1c is creeping up; may need to add metformin. 3. Electrolytes. These are stable. 4. Lipids. Lipid panel was favorable and he is on a high-dose statin appropriately. Discussed with him that should the spinal cord stimulator not be helpful, we certainly could retry narcotics and other medications. He may tolerate them better now that he is seeing some improvement inhis health. His also inquired about something like Mirapex, as he tends to move his legs arounda lot, but as this does not bother Bill at all, I really hate to use a medication for that. Deirdre Bedolla MD [facility] cc: /[place] Job ID: [id number] /[id number] Document ID: [id number] NATAL TECHNICIAN Josie Landaverde LPN - 07/16/2014 10:56 AM CST Depression ([place]) Screening Questions 1. During the past month, have you often been bothered by feeling down, depressed, or hopeless? Not at all 2. During the past month, have you often been bothered by little interest or pleasure in doing things? Not at all NATAL TECHNICIAN documented in this encounter Plan of Treatment Not on filedocumented as of this encounter Goals Goal Patient Goal Associated Recent Patient-Stated? Author Type Problems Progress I want to work Lifestyle Epidural No Wistrom-T he towards getting abscess singLorena my back pain at E, WOOD LAST MAKER, a lower and ESTHETICIAN FACIALIST more tolerable level. 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 documented in this encounter Care Teams Weaving Professor Relationship Specialty Start Date End Date Chioma PCP - General Family Medicine 06/04/11 01/03/17 Deirdre Mosher MD [address] [id number] Jessica Chua RN Laboratory Manager Family Medicine 09/04/13 11/29/14 FIORDALIZA Parish Dewey Ramey Physician Other Pain Management 09/16/13 09/20/14 [facility] [address] [facility] [address] [place] [address] Shanice Zarco MD Physician Other Ophthalmology 10/05/13 [address] [facility] [place] [address] Renny Jamil Physician Other Neurosurgery 10/05/13 09/20/14 Chuy Falcon, Physician Other Cardiology 07/16/14 [address] [place], [place] [id number] Marshal Acosta Other Dental Heating Mechanic 10/05/[address] [place] [address] Posey Other Audiology 10/05/13 [place], [place] documented as of this encounter
--- OUTSIDE RECORDS SUMMARY | 2022-06-07 20:57 | XMS_ITS | Encounter Summary ---
:1935 Author Organization [employer] Address [address] [address] Phone Care Team Providers Name Role Phone Deirdre Bedolla MD Primary Care Provider [phone] Jessica Chua RN Unavailable [phone] Shanice Zarco MD Unavailable Chuy Falcon MD Unavailable Will Dubois MD Unavailable Reason for Visit Reason Comments Refill Request DULoxetine (CYMBALTA) 60 MG delayed release capsule Encounter Details Date Type Department Care Team Description 10/04/2014 Refill [facility] [employer] Chioma, Re fill Request FAMILY MEDICINE Deirdre Mosher MD (DULoxetine (CYMBALTA) [id number] [facility] [address] 60 [place] [address] [place] [address] capsule) [phone] (Wo rk) Social History Tobacco Use Types [...] 60 TAKE ONE CAPSULE BY 90 Cap 3 12/15/2014 MG delayed release MOUTH ONE TIME DAILY capsule DO NOT CRUSH documented in this encounter Miscellaneous Notes Addendum Note - Arlette Matos RN - 10/06/2014 11:46 AM CDT Addended by: ARLETTE MATOS on: 10/06/2014 11:46 AM Modules accepted: Medications Telephone Encounter - Arlette Matos RN - 10/06/2014 10:17 AM CDT Please review the following major drug reaction. If you refill this medication I will add the following note to the chart: Possible major drug reaction between tramadol and duloxetine has been reviewed and approved for RN to refill per protocol. documented in this encounter Plan of Treatment Not on filedocumented as of this encounter Goals Goal Patient Goal Associated Recent Patient-Stated? 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 Note: Formatting of this [...] on filedocumented in this encounter Care Teams Oil Burner Relationship Specialty Start Date End Date YESENIA Bedolla - General Family Medicine 06/04/11 01/03/17 Deirdre Mosher MD [address] [address] Jessica Chua RN Instructor Decorating Family Medicine 09/04/13 11/29/14 FIORDALIZA Parish Shanice Zarco MD Physician Other Ophthalmology 10/05/[address] [place] [address] Chuy Falcon, Physician Other Cardiology 07/16/[address] [place] [address] Will Dubois MD Physician Other Dermatology 09/21/14 [facility] [address] [place] [address] Marshal Acosta Other Dental Manager [place] 10/05/13 [address] [place] [address] [address] Posey Other Audiology 10/05/13 [place], [place] documented as of this encounter
--- OUTSIDE RECORDS SUMMARY | 2022-06-07 20:57 | XMS_ITS | Encounter Summary ---
:1935 Author Organization [employer] Address [address] [address] Phone Care Team Providers Name Role Phone Deirdre Bedolla MD Primary Care Provider [phone] [facility] Unavailable [phone] Shanice Zarco MD Unavailable Chuy Falcon MD Unavailable Will Dubois MD Unavailable Reason for Visit Reason Onset Date Comments Care Coordination Program 09/21/2014 Pre-visit call 09/21/2014 Dr Bedolla, Encounter Details Date Type Department Care Team Description 09/21/2014 [facility] Jessica Parish RN Program; Pre-visit call 2023 [facility] [phone] ([place] [address] (Work) 09-22) [phone] Social History Tobacco Use Types Packs/Day Years [...] Notes Telephone Encounter - Jessica Chua - 10/05/2014 8:09 AM CDT Contacted [facility] to request records again, they were faxed and received, routed to PCP. Called [facility] to follow up on request but no answer in their medical records department. Confirmed faxnumber with their clinic and faxed release/request form for records. Telephone Encounter - Jessica Chua - 09/23/2014 9:14 AM CDT Received signed written release of information form from [facility] [place] [facility] [place]. Calledand confirmed their fax number, faxed with confirmation received. Telephone Encounter - Jessica Chua - 09/21/2014 4:53 PM CDT Contacted Joe for lab first appointment, spoke with Mary Ann and we made for 9:45AM. Telephone Encounter - Jessica Chua - 09/21/2014 1:11 PM CDT Images from the original note were not included. Subject: Care Coordination Pre visit Call Pt has appt with Deirdre Bedolla MD on SatSeptember 22 for 2-month follow up. Allergies Reviewed - No Medications Reviewed - Yes, reviewed with Mary Ann. Epic is up to date. Pt has updated Care Plan - Yes Any visits with a specialists or other physicians since your last visit - Yes. Requested copy of back MRI from [facility] in [facility], this was done in March 2014, so his chart here is up to date. Joe said this was ordered by [facility]. 07/20/14, Dr Falcon, [facility] - for follow up, note under media tab 1. 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 Clinically doing well. His ejection fraction when last checked apepared normal, but the study was only suboptimal. Will repeat an echocardiogram now. 2. Multivessel coronary artery disease as per history of present illness. 3. Epidural abscess, status post decompression 4. Diabetes mellitus 5. Erectile dysfunction 6. Overactive bladder 7. Hyperlipidemia. He has been on pravastatin. I would plan on changing it in the future. He would probably benefit from a trial of atorvastatin 40mg daily. We will talk to him after his surgery about possible change. - process description writer sent note to Dr Falcon that Dr Cristobal already made this change in March 2014. 07/22/14 - surgery at [facility] in [place] - adjustment of spinal cord stimulator No note received. They require a release form so process description writer will leave that for Joe to sign during appointment. 08/09/14, Dr Day, [facility] - note under media tab Any changes in your health or behavior - Spent one month in [facility] with Mary Ann and had a wonderful time. Back pain is doing very well following his surgery, said he has been walking without his walker. Joe said he met with a [employer] rep a few weeks after his surgery, otherwise hasn't seen Dr Valderrama at [facility] since surgery. Blood glucose readings 92-124. Joe mentioned he bleeds and bruises easily (?plavix). Saw Dr. Dubois at [facility] and had a biopsy, pathology report left for Dr Cristobal. Has follow up appointment at end of October with Dr Dubois. Objectives/Goals for the visit. What are the 2-3 questions or issues? 1. Left hip pain - This is Joe's priority for his appointment and would like to see if you have anyideas on the cause of his pain and to discuss pain management. Joe doesn't feel that the gabapentinis effective, he will occassionally take acetaminophen in addition. Joe said he last saw [facility] last January (note in media tab). Joe has continued to have hip pain, worse with lifting(cannot lift over 8lbs without severe pain), twisting, and lying down. He said he falls asleep in a chair and then goes to bed after a few hours (because he cannot fall asleep lying down). The pain holds me back from doing more. 2. Wondering if Joe needs to take a multivitamin. It's still on his list but he hasn't been taking recently as he is eating well and weight increasing. 3. Joe said he continues to have very itchy ears. He has fluoromethalone drops on his list but doesn't have at home, would like a refill if possible. 4. Celebrex - have been getting this filled actually through [employer] patient assistance program as his insurance wouldn't cover. Mary Ann said she has a form from them and is wondering if it needs to be filled out by PCP. She was also wondering about addressing Joe continuing on this medication or not, with his cardiac history and in discussion with his left hip pain. Upcoming appointments: [facility] - Dr. Negron September 28 documented in this encounter Plan of Treatment Not on filedocumented as of this encounter Goals Goal Patient Goal Associated Recent Patient-Stated? 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 Note: Formatting of this [...] Primary documented in this encounter Care Teams Cardiopulmonary Technologist Relationship Specialty Start Date End Date YESENIA Bedolla - General Family Medicine 06/04/11 01/03/17 Deirdre Mosher MD [address] [id number] Jessica Chua RN Farm Equipment Operator Family Medicine 09/04/13 11/29/14 FIORDALIZA Parish Shanice Zarco MD Physician Other Ophthalmology 10/05/[address] [place] [phone] Chuy Falcon, Physician Other Cardiology 07/16/[address] [place] [address] [id number] Will Dubois MD Physician Other Dermatology 09/21/14 [facility] [address] [place] [phone] Marshal Acosta Other Dental Inside Sales Executive 10/05/[address] [place] [phone] Posey Other Audiology 10/05/13 [place], [place] documented as of this encounter
--- OUTSIDE RECORDS SUMMARY | 2022-06-07 20:57 | XMS_ITS | Encounter Summary ---
:1935 Author Organization [facility] [employer] [employer] [facility] Address [address] [address] Phone Care Team Providers Name Role Phone Deirdre Bedolla MD Primary Care Provider [phone] Jessica Chua RN Unavailable [phone] Dewey Ramey Unavailable Shanice Zarco MD Unavailable Renny Jamil Unavailable Reason for Visit Reason Comments Nose Bleed both nares Encounter Details Date Type Department Care Team Description 04/18/2014 Office Visit [facility] renettaxirobert (Primary Dx) URGENT CARE [address] [place] [address] Social History Tobacco Use Types Packs/Day Years Used Date Smoking Tobacco: Never Smokeless Tobacco: Never Alcohol Use Standard Drinks/Week Comments No 0 (1 standard drink = 0.6 oz pure alcoho l) Sex Assigned at Date Recorded Not on file documented as of this encounter Last Filed Vital Signs Vital Sign Reading Time Taken Comments Blood Pressure 127/77 04/18/2014 11:35 AM CDT Pulse 75 04/18/2014 11:35 AM CDT Temperature - - Respiratory Rate - - Oxygen Saturation - - Inhaled Oxygen Concentration - - Weight 92.5 kg (204 lb) 04/18/2014 11:35 AM CDT Height 177.8 cm (5' 10) 04/18/2014 11:35 AM CDT Body Mass Index 29.27 04/18/2014 11:35 AM CDT documented in this encounter Functional Status Functional Status Response Date of Assessment Patient's Vision Adequate to Safely Complete Daily No 04/18/2014 Activities Cognitive Status Response Date of Assessment Patient's Judgment Adequate to Safely Complete Daily No 04/18/2014 Activities documented as of this encounter Patient Instructions Patient InstructionsNavdeep Farris MD - 04/18/2014 12:04 PM CDT Images from the original note were not included. Nosebleed [Adult] Bleeding from the nose most commonly occurs due to injury or drying and cracking of the inner liningof the nose. This can occur during a common cold, hay fever attack, a very hot day, or from dry air in the winter. High blood pressure and hardening of the arteries (atherosclerosis) may also cause nosebleeds. If the bleeding site is found, it may be treated with a chemical or heat or electricity to cause a blood clot to form (cauterized). If the bleeding continues after cautery or if the bleeding site cannot be found, a packing may be placed in your nose to apply pressure and stop the bleeding. The packingmay be made of gauze or sponge. A small balloon catheter is sometimes used. These need to be removedby your doctor. Some types of packing dissolve on their own. Home Care: ?? If a packing was put in your nose, unless told otherwise, do not pull on it or try to remove it yourself. You will be given an appointment to have it removed. You may also have been given antibiotics to prevent a sinus infection. If so, complete all the medicine. ?? Do not blow your nose for 12 hours after the bleeding stops. This will allow a strong blood clot to form. Do not pick your nose. This may restart bleeding. ?? Avoid alcohol and hot liquids for the next two days. Alcohol or hot liquids in your mouth can dilate blood vessels in your nose and cause bleeding to start again. ?? Do not take ibuprofen (Advil, Motrin), naprosyn (Aleve) or aspirin-containing medicines since these thin the blood and may promote nose bleeding. You may take Tylenol (acetaminophen) for pain, unless another pain medicine was prescribed. ?? If the bleeding starts again, sit up and lean forward to prevent swallowing blood. Pinch your nose tightly for exactly 5 minutes (watch the clock). If bleeding is not controlled, continue to pinch and call your doctor or return to this facility. ?? If high blood pressure was a cause for your nosebleed, have your blood pressure checked again tomorrow. ?? If you have a cold or hay fever or dry nasal membranes, lubricate the nasal passages by applying a small amount of Vaseline inside the nose with a Q- tip twice a day (morning and night). Avoid overheating your home, which can dry the air and worsen your condition. Follow Up with your doctor as advised for packing removal. Nasal packing should be rechecked or removed within2-3 days. Get Prompt Medical Attention if any of the following occur: ?? Another nosebleed that you cannot control ?? Dizziness, weakness or fainting ?? Fever of 100.4??F (38??C) or higher, or as directed by your healthcare provider ?? Headache ?? Sinus or facial pain ?? Shortness of breath or trouble breathing ?? [id number] [place] [address]. All rights reserved. This information is not intended as a substitute for professional medical care. Always follow your healthcare professional's instructions. documented in this encounter Progress Notes Navdeep Farris MD - 04/19/2014 8:51 PM CDT [facility] Patient Name: AAMIR CASTILLO Date of Service: 04/18/2014 : 1935 Age: 78Y Sex: M Site MRN: Patient Loc/Room #: BAXUC/ Provider: Navdeep Farris MD, Family Practice URGENT CARE SITE: [facility] SUBJECTIVE: Mr. Castillo comes in today with bilateral nasal bleeding. On inspection it appears to be primarily his right naris. It was packed with a Kleenex and he has done fairly well. He is on Plavix because of stents placed. He was seen in syn[facility] and at that stage had his nose packed. OBJECTIVE: On exam today there does appear to be irritation of Kiesselbach area with some oozing on the right. Left did not notice that. This area was cauterized with silver nitrate. ASSESSMENT: He was warned that he perhaps would need a return for nasal packing should his symptoms worsen, but it really looks quite good today. Thus, I suggested he return as indicated. PROBLEMS: 1. Epistaxis. 2. Cautery with silver nitrate. Navdeep Farris MD [facility] cc: /PMD Job ID: [id number] /kt Document ID: [id number] Navdeep Farris MD - 04/18/2014 1:28 PM CDT Chief Complaint Patient presents with ??? Nose Bleed both nares ROS: Otherwise negative, except as noted in dictation. BP 127/77 Pulse 75 Ht 5' 10 (1.778 m) Wt 204 lb (92.534 kg) BMI 29.27 kg/m2 (784.7) Epistaxis (primary encounter diagnosis) Penicillins Past Medical History Diagnosis Date ??? DM type 2 (diabetes mellitus, type 2) ??? Hypertension ??? 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 CAD (coronary artery disease) with history of TX and stent placement ??? Hyperlipidemia ??? Diverticulosis ??? Colon polyp Past Surgical History Procedure Laterality Date ??? Colonoscopy 05/02/2006 Junito Noel MD ??? Coronary angioplasty with stent placement ??? Back surgery L4 laminectomy, multiple level cervical fusion ??? Joint replacement Left left hip ??? Shoulder surgery Right right rotator cuff ??? Cataract removal ??? Tonsillectomy and adenoidectomy ??? Appendectomy ??? Hemorrhoid surgery ??? Spine surgery 10/15/2013 Spinal Cord Stimulator (Medrudi), Dr Ramey at [facility] ??? Cmplx cmg/void pressure study 04/07/2014 Dr. Ruiz History Substance Use Topics ??? Smoking status: Never Smoker ??? Smokeless tobacco: Never Used ??? Alcohol Use: No History Smoking status ??? Never Smoker Smokeless tobacco ??? Never Used History Alcohol Use No No family history on file. Current Outpatient Prescriptions Medication Sig ??? celecoxib (CELEBREX) 200 MG capsule Take 1 Cap by mouth one time a day. Indications: Back Pain ??? DULoxetine (CYMBALTA) 60 MG capsule Take 1 Cap by mouth one time a day. Do not crush. ??? finasteride (PROSCAR) 5 MG tablet Take 1 Tab by mouth one time a day. Do not crush. ??? solifenacin (VESICARE) 10 MG tablet Take 1 Tab by mouth one time a day. ??? atorvaSTATin (LIPITOR) 40 MG tablet Take 1 Tab by mouth at bedtime. ??? pantoprazole (PROTONIX) 40 MG tablet Take one tablet by mouth one time daily do not crush ??? amLODIPine (NORVASC) 5 MG tablet Take one tablet by mouth one time daily ??? Ascorbic Acid (VITAMIN C) 500 MG [...] by mouth one time a day. ??? clopidogrel (PLAVIX) 75 MG tablet Take 1 [...] 1 tablet, ORAL, DAILY, 08/05/09 14:22:55 ??? ciprofloxacin (CIPRO) 500 MG tablet Take 1 Tab by mouth two times a day. No current facility-administered medications for this visit. Results for orders placed in visit on 04/07/14 (from the past 336 hour(s)) UA TO CULTUR PRN Result Value Range Type CVMS COLOR Yellow Yellow CLARITY CLOUDY Clear SPECIFIC GRAVITY 1.025 1.003 - 1.035 PH URINE 5.5 5.0 - 8.0 LEUK ESTERASE Neg Neg NITRITE Neg Neg PROTEIN Neg Neg-Trace mg/dL GLUCOSE URINE Neg Neg mg/dL KETONE Neg Neg mg/dL Microscopic Exam: ORDERED URINE WBC None seen 0 - 8 /HPF URINE RBC =100+ (*) 0 - 3 /HPF SQUAMOUS EPI Occasional RENAL EPI Few (*) BACTERIA Occasional (*) Urine Culture Reflex Not Indicated Results for orders placed in visit on 04/05/14 (from the past 336 hour(s)) MICROALB,RANDOM Result Value Range Microalbumin, Urine 1.0 URINE CREATININE 70.7 ALB/CREAT RATIO 14 0 - 29 A1C(HGB AIC) Result Value Range A1C (HGB AIC) 6.0 4.0 - 6.0 % Est Average Glucose 126 documented in this encounter Plan of Treatment Not on filedocumented as of this encounter Goals Goal Patient Goal Associated Recent Patient-Stated? 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 Note: Formatting of this [...] Epistaxis - Primary documented in this encounter Care Teams Generation Technologist Relationship Specialty Start Date End Date YESENIA Bedolla - General Family Medicine 06/04/11 01/03/17 Deirdre Mosher MD [address] [id number] Jessica Chua RN Industrial Safety And Health Manager Family Medicine 09/04/13 11/29/14 FIORDALIZA Parish Dewey Ramey Physician Other Pain Management 09/16/13 09/20/14 [facility] [address] [facility] [address] [place] [phone] Shanice Zarco MD Physician Other Ophthalmology 10/05/[address] [place] [address] Renny Jamil Physician Other Neurosurgery 10/05/13 09/20/14 Marshal Acosta Other Dental Account Executive Agribusiness 10/05/[address] [facility] [place] [phone] Dr Posey Other Audiology 10/05/13 [place], [place] documented as of this encounter
--- OUTSIDE RECORDS SUMMARY | 2022-06-07 20:57 | XMS_ITS | Encounter Summary ---
:1935 Author Organization [employer] Address [address] [address] Phone Care Team Providers Name Role Phone Deirdre Bedolla MD Primary Care Provider [phone] Jessica Chua RN Unavailable [phone] Shanice Zarco MD Unavailable Chuy Falcon MD Unavailable Will Dubois MD Unavailable Reason for Referral (Routine) - Closed Specialty Diagnoses / Procedures Referred By Contact Refer red To Contact Diabetes Center Diagnoses Diabetes mellitus (HCC) Chioma solitario Diabetes Educ Deirdre Mosher MD [address] [address] [place] [address] Referral ID Status Reason Start Date Expiration Date Visits Requ ested Visits Authorized [id number] Closed 09/22/2014 04/04/2016 1 1 Comments Type of Referral:quality control projectionist/RD Only. I s this a new diagnosis? No, up to 2 hours education for Medicare Diabetes Type 2. Individual session. Specific order(s): Annual review. Reason for Visit Reason Comments Diabetes eye exam Blood Pressure Imm/Inj prevnar Encounter Details Date Type Department Care Team Description 09/22/2014 Office Visit [facility], Diabetes (Primary Dx); CLINIC FAMILY Deirdre Mosher MD Need for prophylactic vaccination agains t Streptococcus pneumoniae (pneumococcus); MEDICINE [address] Hypertension; [address] [facility] [address] Hyperlipidemia; Street [place] [address] Hip pain, left [place] [address] [phone] Social History Tobacco Use Types Packs/Day Years Used Date Smoking Tobacco: Never Smokeless Tobacco: Never Alcohol Use Standard Drinks/Week Comments No 0 (1 standard drink = 0.6 oz pure alcoho l) Sex Assigned at Date Recorded Not on file documented as of this encounter Last Filed Vital Signs Vital Sign Reading Time Taken Comments Blood Pressure 124/80 09/22/2014 11:13 AM CDT Pulse 59 09/22/2014 11:12 AM CDT Temperature - - Respiratory Rate - - Oxygen Saturation - - Inhaled Oxygen Concentration - - Weight 95.3 kg (210 lb) 09/22/2014 11:12 AM CDT Height 172.7 cm (5' 8) 09/22/2014 11:12 AM CDT Body Mass Index 31.93 09/22/2014 11:12 AM CDT documented in this encounter Functional Status Functional Status Response Date of Assessment Patient's Vision Adequate to Safely Complete Daily No 04/18/2014 Activities Cognitive Status Response Date of Assessment Patient's Judgment Adequate to Safely Complete Daily No 04/18/2014 Activities documented as of this encounter Patient Instructions Patient InstructionsMaDeirdre Reinoso MD - 09/22/2014 11:26 AM CDT I want you to get in the pool 3-4 times a week. Work with the aluminum siding applicator and see if you can get your blood sugars down. If they aren't coming downin 3 months, we may start metformin. Your kidneys are really healthy and I think would tolerate thatfine. Use Tramadol at night as needed for pain. documented in this encounter Ordered Prescriptions Prescription Sig Dispensed Refills Start Date End Date pneumococcal 13-Jenna conj Inject 0.5 mL into 0.5 mL 0 09/22/2014 vacc (PREVNAR 13) the muscle one time injectionIndications: Need for 1 dose. for prophylactic vaccination against Streptococcus pneumoniae (pneumococcus) traMADol (ULTRAM) 50 MG One at night as 30 Tab 0 015 10/12/2014 tablet needed. documented in this encounter Progress Notes Deirdre Bedolla MD - 09/24/2014 1:33 PM CDT [facility] Patient Name: SIMON CASTILLO Date of Service: 09/22/2014 : 1935 Age: 79Y Sex: M Site MRN: Patient Loc/[place] [facility] [place] Provider: Deirdre Bedolla MD, Family Practice OFFICE NOTE SITE: [facility] Bill is here today for diabetic checkup. Blood sugars generally running about 120s. A1c is up a little bit. He has been gaining weight. We actually wanted him to gain weight for a while as he had suffered with such poor health after he had his diskitis, but now is really turning the corner so we need to get back and focus there. He has a lot of pain in his left buttock. Has tended to have a lot of migratory pains in general, much of it going back to his diskitis and infected spinal hardware. He has a spinal cord stimulator. They changed it. Changed the settings and it just does not seem to target this pain in his left buttock. We had tried several different pain medications when he first left the hospital after his infectionand none of them really seemed to work for him. They all made him quite mentally unstable and confused, but now as he is in better spirits we may be able to try those again. Other interesting thing to note is that he recently was in [place] for a month, was in the pool almost every day there and the pain was much more manageable, so I think we may be on to something there that he can also due for his own pain control. With getting in the pool he has been able to increase his ambulation and got rid of his walker. Doeshave a 4-point cane at home that he could use, has not been using it at all and sometimes when he isout longer I would be a little more comfortable if he did consider using that as he kind of went cold turkey from his walker to nothing at all. Moods have been good. He says he feels very happy and hiswife agrees. Another concern that they had is that he is on Celebrex. Has a history of heart disease, but in terms of quality of life pain control really has been his issue and they do feel it helps so I think we should continue that. They have been taking it at noon however, and morning is his worse time so I am going to have them back that to the morning. PAST MEDICAL HISTORY: 1. Coronary artery disease with [place] in 1989. Had right coronary stenting at that time and then [place] in June 2012, which was a restenosis of that stent. Has bare-metal stents. Coded in the [place]the [place] and follows with cardiology. 2. Type 2 diabetes. Been off meds since his weight loss, probably need to consider restarting something again. He has outstanding kidney function so I do think metformin might be a good choice in him. 3. 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 ID has taken him off antibiotics. Suffers with chronic pain with that. Previously intolerant of all narcotics. Takes Cymbalta, gabapentin, has a spinal cord stimulator. 4. Reflux. 5. Hyperlipidemia. 6. Hypertension. 7. History of cervical neck fracture. 8. Benign prostatic hypertrophy. 9. Erectile dysfunction. 10. History of hypokalemia. 11. Chronic hearing loss. SOCIAL HISTORY: Went to [place], this will be their last trip. REVIEW OF SYSTEMS: He has a lot of thirst with his bladder medication. Moods have been really good. Has a basal cell carcinoma of his chin, getting that removed soon. EXAM: Height 68, weight 210, blood pressure 124/80, pulse 59. Generally pleasant, nontoxic, no acute distress. HEENT - atraumatic, normocephalic. Conjunctivae are clear. Heart is regular rate and rhythm. Lungs are clear. No wheezes. No rales. Extremities - no edema. ASSESSMENT AND PLAN: 1. Diabetes. A1c is up to 7. We will refer him to diabetic education as he really has not been watching his diet for years since he had this significant illness with his epidural abscess diskitis and osteomyelitis. Will kind of have to learn to get back on track. Try that for 3 months. See me again with an A1c in 3 months and if not improving start metformin. 2. Hypertension, well-controlled. 3. Hyperlipidemia. He is appropriately on a high-dose statin. 4. Chronic pain. Most recently pain in the left buttock and hip that is bothering him. Has a spinal cord stimulator. Is on Cymbalta, is on gabapentin. My instructions would be to try getting back in a pool 3 to 4 days a week as that seemed to have controlled his pain some. Switch his Celebrex to the mo rning. Continue gabapentin. Try tramadol 50 mg at night as needed and see if that is able to give him any relief. If the tramadol does not agree with him as it has not in the past I probably would not go down that road trying other pain medications and narcotics as just has been totally intolerant in the past. Deirdre Bedolla MD [facility] cc: /JKM Job ID: [id number] /lb Document ID: [id number] Deirdre Bedolla MD - 09/22/2014 12:52 PM CDT This note has been dictated. documented in this encounter Nursing Notes Serenity Miranda LPN - 2014 8:37 AM CST This chart was prepped for visit by Serenity Miranda LPN on 2014. ET HEADER documented in this encounter Plan of Treatment Not on filedocumented as of this encounter Goals Goal Patient Goal Associated Recent Patient-Stated? 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 Note: Formatting of this [...] helps. documented as of this encounter Results (ABNORMAL) A1C(HGB AIC) (12/13/2014 11:23 AM CDT) P athologist Signature A1C (HGB AIC) 6.7 (H) 4.0 - 6.0 12/13/2014 [facility] 11:46 AM CDT [facility] Est Average 146 mg/dL 12/13/2014 [facility] Glucose 11:46 AM CDT [facility] Comment: According to ADA guidelines, the [facility] ed average glucose (eAG) will be calculated for all HgbA1c results. Specimen Anatomical Collection Method Collection Time Receive d Time (Source) Location / / Volume Laterality 12/13/2014 11:23 12/13/2014 AM CDT 11:31 AM CDT Deirdre Bedolla MD EC CHEMISTRY ORDERABLES A BN Performing Organization Address City/State/ZIP Code Phon e Number [facility] [address] [address] LABORATORY [facility] 2023 [place] [address] LABORATORY documented in this encounter Visit Diagnoses Diagnosis Diabetes - Primary Type II or unspecified type diabetes cindy litus without mention of complication, not stated as uncontrolled Need for prophylactic vaccination agains t Streptococcus pneumoniae (pneumococcus) Need for prophylactic vaccination agains t streptococcus pneumoniae (pneumococcus) Hypertension Unspecified essential hypertension Hyperlipidemia Other and unspecified hyperlipidemia Hip pain, left Pain in joint, pelvic region and thigh documented in this encounter Discontinued Medications Medication Sig Discontinue Reason Start Date End Date pneumococcal 13-Jenna conj Inject 0.5 mL Changed to an 09/22/2014 0 09/22/2014 vacc (PREVNAR 13) into the muscle alternate therapy injectionIndications: one time for 1 Need for prophylactic dose. vaccination against Streptococcus pneumoniae (pneumococcus) documented as of this encounter Orders REFERRAL Count Last Ordered Date First Ordered Date [facility] 1 015 documented in this encounter Care Teams Research Kennel Supervisor Relationship Specialty Start Date End Date Chioma PCP - General Family Medicine 06/04/11 01/03/17 Deirdre Mosher MD [address] [id number] Jessica Chua RN Rolled Gold Plater Family Medicine 09/04/13 11/29/14 E RN Shanice Zarco MD Physician Other Ophthalmology 10/05/[address] [place] [phone] Chuy Falcon, Physician Other Cardiology 07/16/14 [address] [place], [place] [id number] Will Dubois MD Physician Other Dermatology 09/21/14 [facility] [address] [place] [phone] Marshal Acosta Other Dental Flying Squad Salesperson 10/05/13 [address] [place], [place] [address] Dr Posey Other Audiology 10/05/13 [place], [place] documented as of this encounter
--- OUTSIDE RECORDS SUMMARY | 2022-06-07 20:57 | XMS_ITS | Encounter Summary ---
:1935 Author Organization [employer] Address [address] [address] Phone Care Team Providers Name Role Phone Deirdre Bedolla MD Primary Care Provider [phone] Jessica Chua RN Unavailable [phone] Shanice Zarco MD Unavailable Chuy Falcon MD Unavailable Will Dubois MD Unavailable Encounter Details Date Type Department Care Team Description 09/21/2014 Orders Only [facility] Farhana Hurley, Tracye nsion (Primary Dx); [facility] 2023 [place] [address] Social History Tobacco Use Types [...] a my back pain at E, MANAGER BILINGUAL, a lower and LABORER YARD more tolerable level. Note: Formatting of this [...] documented as of this encounter Results (ABNORMAL) BASIC MET PROF (09/22/2014 10:22 AM CDT) P athologist Signature SODIUM 140 134 - 143 09/22/2014 [facility] mEq/L 11:29 AM CDT [facility] POTASSIUM 5.1 3.4 - 5.1 09/22/2014 [facility] mEq/L 11:29 AM T [facility] Chloride 108 99 - 110 09/22/2014 [facility] mEq/L 11:29 AM T [facility] CO2 22 19 - 29 09/22/2014 [facility] mEq/L 11:29 AM [facility] BUN 23 5 - 24 09/22/2014 [facility] mg/dL 11:29 AM T [facility] Creatinine 0.84 0.70 - 1.20 09/22/2014 [facility] mg/dL 11:29 AM T [facility] GFR CALC >60 09/22/2014 [facility] 11:29 AM [facility] Comment: GFR Normal: >60 mL/min/1.73 m2 Calcium 9.6 8.4 - 10.5 mg/dL 09/22/2014 11:29 AM CDT [facility] ANION GAP 10 3 - 15 09/22/2014 11:29 AM CDT [facility] GLUCOSE 124 (H) 70 - 100 mg/dL 09/22/2014 11:29 AM CDT [facility] Specimen Anatomical Collection Method Collection Time Receive d Time (Source) Location / / Volume Laterality 09/22/2014 10:22 09/22/2014 AM CDT 10:28 AM CDT Deirdre Bedolla MD EC CHEMISTRY ORDERABLES Performing Organization Address City/State/ZIP Code Phon e Number [facility] [address] [place] [address] LABORATORY [facility] 2023 [place] [address] LABORATORY (ABNORMAL) A1C(HGB AIC) (09/22/2014 10:22 AM CDT) P athologist Signature A1C (HGB AIC) 7.0 (H) 4.0 - 6.0 09/22/2014 [facility] % 10:49 AM CDT MEDICAL [facility] LAB[facility] Est Average 154 mg/dL 09/22/2014 [facility] Glucose 10:49 AM CDT MEDICAL CLINIC LABORATORY Comment: According to ADA guidelines, the [facility] ed average glucose (eAG) will be calculated for all HgbA1c results. Specimen Anatomical Collection Method Collection Time Receive d Time (Source) Location / / Volume Laterality 09/22/2014 10:22 09/22/2014 AM CDT 10:28 AM CDT Deirdre Bedolla MD EC CHEMISTRY ORDERABLES A BN Performing Organization Address City/State/ZIP Code Phon e Number [facility] [address] [place] [address] LABORATORY [facility] 2023 [place] [address] LABORATORY documented in this encounter Visit Diagnoses Diagnosis Hypertension - Primary Unspecified essential hypertension Diabetes Type II or unspecified type diabetes cindy litus without mention of complication, not stated as uncontrolled documented in this encounter Care Teams Community Service Organization Director Relationship Specialty Start Date End Date Chioma PCP - General Family Medicine 06/04/11 01/03/17 Deirdre Mosher MD [address] [id number] Jessica Chua RN Electromechanical Technician Family Medicine 09/04/13 11/29/14 Марина RN Shanice Zarco MD Physician Other Ophthalmology 10/05/[address] [place] [phone] Chuy Falcon, Physician Other Cardiology 07/16/14 3 [place], [place] [address] Will Dubois MD Physician Other Dermatology 09/21/14 [facility] [address] [place] [phone] Marshal Acosta Other Dental Coil Winding Machines Set Up Mechanic 10/05/[address] [place], [place] [phone] Dr Posey Other Audiology 10/05/13 [place], [place] documented as of this encounter
--- OUTSIDE RECORDS SUMMARY | 2022-06-07 20:57 | XMS_ITS | Encounter Summary ---
:1935 Author Organization [employer] Address [address] [address] Phone Care Team Providers Name Role Phone Deirdre Bedolla MD Primary Care Provider [phone] Jessica Chua RN Unavailable [phone] Dewey Ramey Unavailable Shanice Zarco MD Unavailable Renny Jamil Unavailable Reason for Visit Reason Onset Date Comments CCP Phone Outreach 04/20/2014 appt nosebleed fu ER Encounter Details Date Type Department Care Team Description 04/20/2014 Telephone [facility] Rasheeda Hernández, [facility] Ph one Outreach Clinic ENT CHIROPRACTIC ASSISTANT (appt nosebleed fu ER) 2023 [place] [address] Social History Tobacco Use Types [...] Lorena a my back pain at E, SONG LYRICIST, a lower and PAPER BOX MAKER more tolerable level. Note: Formatting of [...] on filedocumented in this encounter Care Teams Pit Tanner Relationship Specialty Start Date End Date Chioma PCP - General Family Medicine 06/04/11 01/03/17 Deirdre Mosher MD [address] [address] Jessica Chua RN Carton Forming Machine Adjuster Family Medicine 09/04/13 11/29/14 E, RN Dewey Ramey Physician Other Pain Management 09/16/13 09/20/14 [facility] [address] [place] [address] [address] [place] [address] Shanice Zarco MD Physician Other Ophthalmology 10/05/[address] [place] [phone] Renny Jamil Physician Other Neurosurgery 10/05/13 09/20/14 Marshal Acosta Other Dental Fitting Room Inspector 10/05/13 [address] [place], [place] [phone] Dr Posey Other Audiology 10/05/13 [place], [place] documented as of this encounter
--- OUTSIDE RECORDS SUMMARY | 2022-06-07 20:57 | XMS_ITS | Encounter Summary ---
:1935 Author Organization [employer] Address [address] [address] Phone Care Team Providers Name Role Phone Deirdre Bedolla MD Primary Care Provider [phone] Jessica Chua RN Unavailable [phone] Dewey Ramey Unavailable Shanice Zarco MD Unavailable Renny Jamil Unavailable Chuy Falcon MD Unavailable Reason for Visit Reason Comments Refill Request clopidogrel (PLAVIX) 75 MG t ablet Encounter Details Date Type Department Care Team Description 08/08/2014 Refill [facility] Riaz Bedolla efill Request FAMILY MEDICINE Deirdre Mosher MD (clopidogrel (PLAVIX) 2023 [facility] eet [address] 75 MG tablet) [place] [address] [place] [id number] (Wo rk) Social History Tobacco Use Types [...] ONE TABLET BY 90 Tab 3 0 08/08/2014 09/19/2015 tablet MOUTH ONE TIME DAILY documented in this encounter Miscellaneous Notes Telephone Encounter - Gabriela Jones RN,AE-C - 08/09/2014 1:10 PM DIRECTOR OF INFORMATICS Patient's medication list, allergies, last labs, and last office visit pertaining to this specific medication have been reviewed during this refill encounter. Medication refilled per protocol. CTOR OF INFORMATICS documented in this encounter Plan of Treatment Not on filedocumented as of this encounter Goals Goal Patient Goal Associated Recent Patient-Stated? 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 Note: Formatting of this [...] Date End Date clopidogrel (PLAVIX) 75 Take one tablet by 04/19/2014 08/08/2014 MG tablet mouth one time daily documented as of this encounter Care Teams Plastic Printer Relationship Specialty Start Date End Date YESENIA Bedolla - General Family Medicine 06/04/11 01/03/17 Deirdre Mosher MD [address] [address] Jessica Chua RN Bilingual School Psychologist Family Medicine 09/04/13 11/29/14 [place] [place] Dewey Ramey Physician Other Pain Management 09/16/13 09/20/14 [facility] [address] [address] [place] [phone] Shanice Zarco MD Physician Other Ophthalmology 10/05/13 [address] [place] [phone] Renny Jamil Physician Other Neurosurgery 10/05/13 09/20/14 Chuy Falcon, Physician Other Cardiology 07/16/14 3 [place] [address] Marshal Acosta Other Dental Software Intern 10/05/13 [address] [place] [address] Dr Posey Other Audiology 10/05/13 [place], [place] documented as of this encounter
--- OUTSIDE RECORDS SUMMARY | 2022-06-07 20:57 | XMS_ITS | Encounter Summary ---
:1935 Author Organization [employer] Address [address] [address] Phone Care Team Providers Name Role Phone Deirdre Bedolla MD Primary Care Provider [phone] Jessica Chua RN Unavailable [phone] Dewey Ramey Unavailable Shanice Zarco MD Unavailable Renny Jamil Unavailable Reason for Visit Reason Onset Date Comments Medication Question 04/28/2014 Encounter Details Date Type Department Care Team Description 04/28/2014 Telephone [facility] UROLOGY Deirdre Kumar, Medication Question [address] [place] [id number] Social History Tobacco Use Types Packs/Day Years [...] (VESICARE) 10 Take 1 Tab by mouth 30 Tab 12 1 10/27/2015 MG tablet one time a day. documented in this encounter Miscellaneous Notes Telephone Encounter - Deirdre Kumar RN - 04/29/2014 9:50 AM CDT Patient calls Urology to request an order for Vesicare as he feels the medication is working for hisoveractive bladder symptoms. Patient has tried and failed both oxybutynin and Detrol in the past. 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 Patient to make follow up with Dr. Ruiz to discuss medications. Patient verbalized understanding, will call if has further questions or concerns. Telephone Encounter - Deirdre Kumar RN - 04/28/2014 12:02 PM CDT ----- Message from Gisela Houston sent at 04/28/2014 11:02 AM CDT ----- Sara Date: 04/28/2014 Time: 11:03 AM May we leave a message: yes Patient's Date of : 1935 Person Calling: self Phone Number: Home phone [phone] (home) Reason for call: Questions on medication. Pharmacy: Allergies: -- Penicillins documented in this encounter Plan of Treatment Not on filedocumented as of this encounter Goals Goal Patient Goal Associated Recent Patient-Stated? Author Type Problems Progress I want to work Lifestyle Epidural No Wistrom-T he towards getting abscess sing, Lorena a my back pain at E, PIN PULLER, a lower and [place] [employer] more tolerable level. Note: Formatting of this [...] Hypertonicity of bladder documented in this encounter Discontinued Medications Medication Sig Discontinue Reason Start Date End Date solifenacin (VESICARE) 10 Take 1 Tab by mouth 04/07/20 14 04/29/2014 MG tablet one time a day. solifenacin (VESICARE) 10 Take 1 Tab by mouth 04/29/20 14 04/29/2014 MG tablet one time a day. documented as of this encounter Historical Medications This list may reflect changes made after this encounter. Medication Sig Dispensed Refills Start Date End Date solifenacin (VESICARE) 10 Take 1 Tab by mouth 14 Tab 0 1 04/29/2014 MG tablet one time a day. added in this encounter Care Teams Cytogenetics Laboratory Manager Relationship Specialty Start Date End Date [place] PCP - General Family Medicine 06/04/11 01/03/17 Deirdre Mosher MD [address] [address] Jessica Chua RN Senior Applications Analyst Family Medicine 09/04/13 11/29/14 FIORDALIZA Parish Dewey Ramey Physician Other Pain Management 09/16/13 09/20/14 [facility] [address] [facility] [address] [place] [address] Shanice Zarco MD Physician Other Ophthalmology 10/05/13 [address] [place] [address] Renny Jamil Physician Other Neurosurgery 10/05/13 09/20/14 Marshal Acosta Other Dental Organizational Development Manager 10/05/13 [address] [place] [address] Dr Posey Other Audiology 10/05/13 [place], [place] documented as of this encounter
--- OUTSIDE RECORDS SUMMARY | 2022-06-07 20:57 | XMS_ITS | Encounter Summary ---
:1935 Author Organization [employer] Address [address] [address] Phone Care Team Providers Name Role Phone Deirdre Bedolla MD Primary Care Provider [phone] Jessica Chua RN Unavailable [phone] Dewey Ramey Unavailable Shanice Zarco MD Unavailable Renny Jamil Unavailable Reason for Visit Reason Comments Refill Request amLODIPine (NORVASC) 5 MG ta blet Encounter Details Date Type Department Care Team Description 06/21/2014 Refill [facility] Riaz Bedolla efill Request FAMILY MEDICINE Deirdre Mosher MD (amLODIPine (NORVASC) 2023 [facility] eet [address] MG tablet) FAHEEM Burdick [phone] [place] [id number] (Wo rk) Social History Tobacco Use Types [...] MG TAKE ONE TABLET BY 90 Tab 2 02/17/2015 tablet MOUTH ONE TIME DAILY documented in this encounter Miscellaneous Notes Telephone Encounter - Vianey Campbell RN - 06/22/2014 12:21 PM CST Patient's medication list, allergies, last labs, and last office visit pertaining to this specific medication have been reviewed during this refill encounter. Medication refilled per protocol. RER TECHNICIAN documented in this encounter Plan of Treatment Not on filedocumented as of this encounter Goals Goal Patient Goal Associated Recent Patient-Stated? Author Type Problems Progress I want to work Lifestyle Epidural No Wistrom-T he towards getting abscess sing, Lorena a my back pain at E, PARAFFINER, a lower and ROCK WOOL INSULATOR more tolerable level. Note: Formatting of this [...] Start Date End Date amLODIPine (NORVASC) 5 Take one tablet by 03/11/2014 06/21/2014 MG tablet mouth one time daily documented as of this encounter Care Teams Marketing Pr Intern Relationship Specialty Start Date End Date YESENIA Bedolla - General Family Medicine 06/04/11 01/03/17 Deirdre Mosher MD [address] [phone] Jessica Chua RN Beam Department Supervisor Family Medicine 09/04/13 11/29/14 FIORDALIZA Parish Dewey Ramey Physician Other Pain Management 09/16/13 09/20/14 [facility] [address] [place] [address] [address] FAHEEM PICKETT [address] Shanice Zarco MD Physician Other Ophthalmology 10/05/13 [address] [place] [address] Renny Jamil S Physician Other Neurosurgery 10/05/13 09/20/14 Marshal Acosta Other Dental Drafter Civil 10/05/13 [address] [place], [place] [id number] Dr Posey Other Audiology 10/05/13 [place], [place] documented as of this encounter
--- OUTSIDE RECORDS SUMMARY | 2022-06-07 20:57 | XMS_ITS | Encounter Summary ---
:1935 Author Organization [employer] Address [address] [address] Phone Care Team Providers Name Role Phone Deirdre Bedolla MD Primary Care Provider [phone] Jessica Chua RN Unavailable [phone] Shanice Zarco MD Unavailable Chuy Falcon MD Unavailable Will Dubois MD Unavailable Reason for Visit Reason Comments Refill Request Encounter Details Date Type Department Care Team Description 09/28/2014 Refill [facility] Mabel Bedolla Refill Request FAMILY MEDICINE MD Nomi 2023 [facility] [address] [address] [place], [place] [address] (Wo rk) Social History Tobacco Use Types [...] ONE TABLET BY 90 Tab 0 0 09/30/2014 12/30/2014 MG delayed-release tablet MOUTH ONE TIME DAILY DO NOT CRUSH documented in this encounter Miscellaneous Notes Telephone Encounter - Luda Tovar RN - 09/30/2014 3:22 PM CDT Patient's medication list, allergies, last [...] Lorena a my back pain at E, BIOFUELS PRODUCT DEVELOPMENT MANAGER, a lower and PLANING MACHINE OPERATOR more tolerable level. Note: Formatting [...] Reason Start Date End Date pantoprazole (PROTONIX) Take one tablet by 03/27/2014 09/28/2014 40 MG tablet mouth one time daily do not crush documented as of this encounter Care Teams Director Process Improvement Relationship Specialty Start Date End Date YESENIA Bedolla - General Family Medicine 06/04/11 01/03/17 Deirdre Mosher MD [address] [place] [phone] Jessica Chua RN Senior Search Marketing Analyst Family Medicine 09/04/13 11/29/14 FIORDALIZA Parish Shanice Zarco MD Physician Other Ophthalmology 10/05/[address] [place] [address] [place] [address] Chuy Falcon, Physician Other Cardiology 07/16/14 [address] [place] [address] Will Dubois MD Physician Other Dermatology 09/21/14 [facility] [address] [place] [address] Marshal Acosta Other Dental Harness Worker 10/05/[address] [place] [address] [address] Posey Other Audiology 10/05/13 [place], [place] documented as of this encounter
--- OUTSIDE RECORDS SUMMARY | 2022-06-07 20:57 | XMS_ITS | Encounter Summary ---
:1935 Author Organization [employer] Address [address] [address] Phone Care Team Providers Name Role Phone Deirdre Bedolla MD Primary Care Provider [phone] Jessica Chua RN Unavailable [phone] Shanice Zarco MD Unavailable Chuy Falcon MD Unavailable Will Dubois MD Unavailable Reason for Visit Reason Comments Imm/Inj Prevnar 13 Encounter Details Date Type Department Care Team Description 09/30/2014 [facility] TREATMENT - MAIN Ancillary, [facility] Imm/Inj (Prevnar 13) HEALTH/NURSE [address] Treatment [address] Nurse YONATHANFAHEEM RUANO [address]151 Social History Tobacco Use Types Packs/Day Years [...] Inject 0.5 mL into 0.5 mL 0 09/30/2014 vacc (PREVNAR 13) the muscle one time injectionIndications: Need for 1 dose. for prophylactic vaccination against Streptococcus pneumoniae (pneumococcus) documented in this encounter Plan of Treatment Not on filedocumented as of this encounter Goals Goal Patient Goal Associated Recent Patient-Stated? Author Type Problems Progress I want to work Lifestyle Epidural No Wistrom-T he towards getting abscess sing, Lorena a my back pain at E, STEELWORKER, a lower and CORRECTIONAL SUPERVISOR LIEUTENANT more tolerable level. Note: Formatting of this [...] as of this encounter Visit Diagnoses Diagnosis Need for prophylactic vaccination agains t Streptococcus pneumoniae (pneumococcus) - Primary Need for prophylactic vaccination agains t streptococcus pneumoniae (pneumococcus) documented in this encounter Orders Immunization/Injection Count Last Ordered Date First O rdered Date IMMUNIZATION ADMINISTRATION; ONE VACCINE 1 015 (SINGLE OR COMBINATION VACCINE/TO* PNEUMOCOCCAL, MAGDY, INJ 1 09/30/2014 documented in this encounter Care Teams Soil Conservationist Relationship Specialty Start Date End Date Chioma PCP - General Family Medicine 06/04/11 01/03/17 Deirdre Mosher MD [address] [phone] Jessica Chua RN Duty Officer Family Medicine 09/04/13 11/29/14 FIORDALIZA Parish Shanice Zarco MD Physician Other Ophthalmology 10/05/[address] [place] [address] Chuy Falcon, Physician Other Cardiology 07/16/14 3 [place] [address] Will Dubois MD Physician Other Dermatology 09/21/14 [facility] [address] [place] [address] Marshal Acosta Other Dental Chemical Research Worker 10/05/[address] [place] [phone] Posey Other Audiology 10/05/13 [place], [place] documented as of this encounter
--- OUTSIDE RECORDS SUMMARY | 2022-06-07 20:58 | XMS_ITS | Encounter Summary ---
:1935 Author Organization [employer] Address [address] [address] Phone Care Team Providers Name Role Phone Deirdre Bedolla MD Primary Care Provider [phone] Jessica Chua RN Unavailable [phone] Dewey Ramey Unavailable Shanice Zarco MD Unavailable Renny Jamil Unavailable Reason for Visit Reason Comments Refill Request amLODIPine (NORVASC) 5 MG ta blet Encounter Details Date Type Department Care Team Description 03/11/2014 Refill [facility] Riaz Bedolla efill Request FAMILY MEDICINE Deirdre Mosher MD (amLODIPine (NORVASC) 2023 [facility] eet [address] MG tablet) FAHEEM Burdick [id number] FAHEEM BURDICK [phone] (Wo rk) Social History Tobacco Use Types Packs/Day Years Used Date Smoking Tobacco: Never Smokeless Tobacco: Never Alcohol Use Standard Drinks/Week Comments No 0 (1 standard drink = 0.6 oz pure alcoho l) Sex Assigned at Date Recorded Not on file documented as of this encounter Ordered Prescriptions Prescription Sig Dispensed Refills Start Date End Date amLODIPine (NORVASC) 5 MG Take one tablet by 90 tablet 0 06/21/2014 tablet mouth one time daily documented in this encounter Plan of Treatment Not on filedocumented as of this encounter Goals Goal Patient Goal Associated Recent Patient-Stated? Author Type Problems Progress I want to work Lifestyle Epidural No Wistrom-T he towards getting abscess sing, Lorena a my back pain at E, WET PRIMER POWDER BLENDER, a lower and BRICK UNLOADER TENDER more tolerable level. Note: Formatting of this [...] Date End Date amLODIPine (NORVASC) 5 MG Take 1 Tab by mouth 03/11/20 13 03/11/2014 tablet one time a day. documented as of this encounter Care Teams Freelance Displayer Relationship Specialty Start Date End Date Chioma PCP - General Family Medicine 06/04/11 01/03/17 Deirdre Mosher MD [address] [phone] Jessica Chua RN Network Specialist Family Medicine 09/04/13 11/29/14 Марина RN Dewey Ramey Physician Other Pain Management 09/16/13 09/20/14 [facility] [address] [facility] [address] [place] [address] Shanice Zarco MD Physician Other Ophthalmology 10/05/13 [address] [place] [address] Renny Jamil Physician Other Neurosurgery 10/05/13 09/20/14 Marshal Acosta Other Dental Design Supervisor 10/05/13 [address] [place], [place] [phone] Dr Posey Other Audiology 10/05/13 [place], [place] documented as of this encounter
--- OUTSIDE RECORDS SUMMARY | 2022-06-07 20:58 | XMS_ITS | Encounter Summary ---
:1935 Author Organization [employer] Address [address] [address] Phone Care Team Providers Name Role Phone Deirdre Bedolla MD Primary Care Provider [phone] Jessica Chua RN Unavailable [phone] Dewey Ramey Unavailable Shanice Zarco MD Unavailable Renny Jamil Unavailable Reason for Visit Reason Comments Care Coordination Program Tier assignment tool Encounter Details Date Type Department Care Team Description 03/23/2014 Notes [facility] Toma Care Coordination Program FAMILY MEDICINE Jessica Parish RN (Tier assignment tool) 2023 [facility] [phone] [place] [address] (Work) [phone] Social History Tobacco Use Types Packs/Day Years Used Date Smoking Tobacco: Never Smokeless Tobacco: Never Alcohol Use Standard Drinks/Week Comments No 0 (1 standard drink = 0.6 oz pure alcoho l) Sex Assigned at Date Recorded Not on file documented as of this encounter Progress Notes Jessica Chua - 03/23/2014 8:36 AM CDT Tier assignment tool updated. documented in this encounter Plan of Treatment Not on filedocumented as of this encounter Goals Goal Patient Goal Associated Recent Patient-Stated? Author Type Problems Progress I want to work Lifestyle Epidural No Wistrom-T he towards getting abscess sing, Lorena a my back pain at E, ETHYLENE OXIDE PANELBOARD OPERATOR, a lower and BRAZER HELPER INDUCTION more tolerable level. Note: Formatting of this [...] on filedocumented in this encounter Care Teams Train Dispatcher Relationship Specialty Start Date End Date Chioma PCP - General Family Medicine 06/04/11 01/03/17 Deirdre Mosher MD [address] [phone] Jessica Chua RN Computer Systems Manager Family Medicine 09/04/13 11/29/14 Марина RN Dewey Ramey Physician Other Pain Management 09/16/13 09/20/14 [facility] [address] [facility] [address] [place] [address] Shanice Zarco MD Physician Other Ophthalmology 10/05/[address] [place] [address] Renny Jamil Physician Other Neurosurgery 10/05/13 09/20/14 Marshal Acosta Other Dental Nurse Practitioner Home Assessments 10/05/13 [address] [place] [address] Dr Posey Other Audiology 10/05/13 [place], [place] documented as of this encounter
--- OUTSIDE RECORDS SUMMARY | 2022-06-07 20:58 | XMS_ITS | Encounter Summary ---
:1935 Author Organization [employer] Address [address] [address] Phone Care Team Providers Name Role Phone Deirdre Bedolla MD Primary Care Provider [phone] Jessica Chua RN Unavailable [phone] Dewey Ramey Unavailable Shanice Zarco MD Unavailable Renny Jamil Unavailable Reason for Visit Reason Onset Date Comments Care Coordination Program 01/04/2014 Pre-visit Call (Dr Bedolla, 01/06) Encounter Details Date Type Department Care Team Description 01/04/2014 Telephone [facility] Toma, Care Coordination FAMILY MEDICINE Jessica Parish RN Program (Pre-visit Call 2023 [facility] [phone] ([place] [address] (Work) 01/06)) [phone] Social History Tobacco Use Types Packs/Day Years Used Date Smoking Tobacco: Never Smokeless Tobacco: Never Alcohol Use Standard Drinks/Week Comments No 0 (1 standard drink = 0.6 oz pure alcoho l) Sex Assigned at Date Recorded Not on file documented as of this encounter Miscellaneous Notes Telephone Encounter - Jessica Chua - 01/04/2014 3:00 PM CDT Subject: Care Coordination Pre visit Call Pt has appt with Deirdre Bedolla MD on 01/06/2014 for 6 week follow up on back pain, anxiety, new medication Cymabalta. Allergies Reviewed - Unable to assess, unable to reach patient. Medications Reviewed - Unable to assess, unable to reach patient. Pt has updated Care Plan - yes Any visits with a specialists or other physicians since your last visit - Had a bone scan ordered by his orthopaedics provider Dr Ray (done at [facility], results in EPIC), andBill saw a PA down at that clinic as well. Unsure of what Dr Ray's recommendation was, Joe and Mary Ann were still waiting to hear from him when I spoke with Mary Ann last week. I requested records be sent up to me but haven't received anything yet. I will route them to you if/when I receive them. Any changes in your health or behavior - Machine Operator Transplanter spoke with Mary Ann last week. She said Joe seemed more relaxed over the last month (started Cymbalta) and she said that his spinal cord stimulator was working well. Objectives/Goals for the visit. What are the 2-3 questions or issues? 1. Follow up from last visit. Unable to reach Joe and Mary Ann to see if any other concerns. documented in this encounter Plan of Treatment Not on filedocumented as of this encounter Goals Goal Patient Goal Associated Recent Patient-Stated? Author Type Problems Progress I want to work Lifestyle Epidural No Wistrom-T he towards getting abscess sing, Lorena a my back pain at E, PE MANAGER, a lower and RETAIL LOAN ORIGINATOR ASSISTANT more tolerable level. Note: Formatting of [...] on filedocumented in this encounter Care Teams Dowel Sticker Operator Relationship Specialty Start Date End Date Chioma, PCP - General Family Medicine 06/04/11 01/03/17 Deirdre Mosher MD [address] [address] Jessica Chua RN Sock Knitting Machine Operator Family Medicine 09/04/13 11/29/14 Марина RN Dewey Ramey Physician Other Pain Management 09/16/13 09/20/14 [facility] [address] [facility] [address] [place] [address] Shanice Zarco MD Physician Other Ophthalmology 10/05/13 [address] [place] [address] Renny Jamil Physician Other Neurosurgery 10/05/13 09/20/14 Marshal Acosta Other Dental Sports Director 10/05/13 [address] [place], [place] [address] Dr Posey Other Audiology 10/05/13 [place], [place] documented as of this encounter
--- OUTSIDE RECORDS SUMMARY | 2022-06-07 20:58 | XMS_ITS | Encounter Summary ---
:1935 Author Organization [employer] Address [address] [address] Phone Care Team Providers Name Role Phone Deirdre Bedolla MD Primary Care Provider [phone] Jessica Chua RN Unavailable [phone] Dewey Ramey Unavailable Shanice Zarco MD Unavailable Renny Jamil Unavailable Reason for Visit Reason Comments Refill Request Encounter Details Date Type Department Care Team Description 03/27/2014 Refill [facility] Mabel Bedolla Refill Request FAMILY MEDICINE MD Nomi 2023 [facility] [address] [address] [place], [place] [address] (Wo rk) Social History Tobacco Use Types Packs/Day Years Used Date Smoking Tobacco: Never Smokeless Tobacco: Never Alcohol Use Standard Drinks/Week Comments No 0 (1 standard drink = 0.6 oz pure alcoho l) Sex Assigned at Date Recorded Not on file documented as of this encounter Ordered Prescriptions Prescription Sig Dispensed Refills Start Date End Date pantoprazole (PROTONIX) 40 Take one tablet by 90 tablet 1 0 03/27/2014 09/28/2014 MG tablet mouth one time daily do not crush documented in this encounter Plan of Treatment Not on filedocumented as of this encounter Goals Goal Patient Goal Associated Recent Patient-Stated? Author Type Problems Progress I want to work Lifestyle Epidural No Wistrom-T he towards getting abscess sing, Lorena a my back pain at E, ANALYSIS OR RESEARCH SAFETY INSPECTOR, a lower and MANAGER HOSPITAL more tolerable level. Note: Formatting of this [...] Reason Start Date End Date pantoprazole (PROTONIX) 40 Take 1 Tab by 04/06/2013 03/27/2014 MG tablet mouth one time a day. Do not crush. documented as of this encounter Care Teams Press Operator Instant Print Shop Relationship Specialty Start Date End Date Chioma PCP - General Family Medicine 06/04/11 01/03/17 Deirdre Mosher MD [address] [phone] Jessica Chua RN Diagnostic Radiologic Technologist Family Medicine 09/04/13 11/29/14 Марина RN Dewey Ramey Physician Other Pain Management 09/16/13 09/20/14 [facility] [address] [facility] [address] [place] [address] Shanice Zarco MD Physician Other Ophthalmology 10/05/13 [address] [place] [address] Renny Jamil Physician Other Neurosurgery 10/05/13 09/20/14 Marshal Acosta Other Dental Employment Appeals Examiner 10/05/13 [address] [place], [place] [phone] Dr Posey Other Audiology 10/05/13 [place], [place] documented as of this encounter
--- OUTSIDE RECORDS SUMMARY | 2022-06-07 20:58 | XMS_ITS | Encounter Summary ---
:1935 Author Organization [employer] Address [address] [address] Phone Care Team Providers Name Role Phone Deirdre Bedolla MD Primary Care Provider [phone] Jessica Chua RN Unavailable [phone] Dewey Ramey Unavailable Shanice Zarco MD Unavailable Renny Jamil Unavailable Reason for Visit Reason Onset Date Comments Care Coordination Program 10/09/2013 Post-visit (Dr Bedolla, 10/05) Encounter Details Date Type Department Care Team Description 10/09/2013 Telephone [facility] oTma, Care Coordination FAMILY MEDICINE Jessica Parish RN Program (Post-visit ( 2023 [facility] [phone] Chioma, 10/05)) FAHEEM Burdick [address] (Work) [phone] Social History Tobacco Use Types Packs/Day Years Used Date Smoking Tobacco: Never Smokeless Tobacco: Never Alcohol Use Standard Drinks/Week Comments No 0 (1 standard drink = 0.6 oz pure alcoho l) Sex Assigned at Date Recorded Not on file documented as of this encounter Miscellaneous Notes Telephone Encounter - Jessica Chua - 10/09/2013 2:[address] Cristobal requested that Bill follow up with her a few weeks after his procedure. Will ask scheduling to call next week. Telephone Encounter - Jessica Chua - 10/09/2013 1:50 PM CDT Subject: Care Coordination Post visit Reviewed notes from office visit with Deirdre Bedolla MD on 10/05. Changes not made to Care Plan. Call placed to pt to discuss and review: 1. Seeing Dr Jamil (neurosurgery) today 10/09/2013. I think Dr Danielson wanted me to see Dr Jamil before I have the spine stimulator put in, but that's okay. I don't mind seeing him again. Bill is without any complaints or concerns at this time. 2. Results letter done - Urine culture was mixed contaminants. 3. Referral to Ortho for right knee pain. Pt did verbalize understanding of: asked him to contact instructional writer if any concerns in the interim. Surgery is on 10/15 (). Planned follow up: Dr Cristobal - not specified. documented in this encounter Plan of Treatment Not on filedocumented as of this encounter Goals Goal Patient Goal Associated Recent Patient-Stated? Author Type Problems Progress I want to work Lifestyle Epidural No Wistrom-T he towards getting abscess sing, Lorena a my back pain at E, STEREO OPERATOR, a lower and TOBACCO WAREHOUSE MANAGER more tolerable level. Note: Formatting of [...] Primary documented in this encounter Care Teams Extractor Loader And Unloader Relationship Specialty Start Date End Date Chioma PCP - General Family Medicine 06/04/11 01/03/17 Deirdre Mosher MD [address] [address] Jessica Chua RN Transmission Superintendent Family Medicine 09/04/13 11/29/14 Марина RN Dewey Ramey Physician Other Pain Management 09/16/13 09/20/14 [facility] [address] [facility] [address] [place] [address] Shanice Zarco MD Physician Other Ophthalmology 10/05/13 [address] [place] [address] Renny Jamil Physician Other Neurosurgery 10/05/13 09/20/14 Marshal Acosta Other Dental Irrigation Specialist 10/05/13 [address] [place] [address] Dr Posey Other Audiology 10/05/13 [place], [place] documented as of this encounter
--- OUTSIDE RECORDS SUMMARY | 2022-06-07 20:58 | XMS_ITS | Encounter Summary ---
:1935 Author Organization [employer] Address [address] [address] Phone Care Team Providers Name Role Phone Deirdre Bedolla MD Primary Care Provider [phone] Jessica Chua RN Unavailable [phone] Dewey Ramey Unavailable Shanice Zarco MD Unavailable Renny Jamil Unavailable Reason for Visit Reason Comments Back Pain Encounter Details Date Type Department Care Team Description 01/06/2014 Office Visit [facility], Epidural abscess (Primary Dx); CLINIC FAMILY Deirdre Mosher MD Depression MEDICINE 2023 [place] [address] [place], [place] [id number] [phone] Social History Tobacco Use Types Packs/Day Years Used Date Smoking Tobacco: Never Smokeless Tobacco: Never Alcohol Use Standard Drinks/Week Comments No 0 (1 standard drink = 0.6 oz pure alcoho l) Sex Assigned at Date Recorded Not on file documented as of this encounter Last Filed Vital Signs Vital Sign Reading Time Taken Comments Blood Pressure 123/71 01/06/2014 10:57 AM CDT Pulse 68 01/06/2014 10:57 AM CDT Temperature - - Respiratory Rate - - Oxygen Saturation - - Inhaled Oxygen Concentration - - Weight 87.1 kg (192 lb) 01/06/2014 10:57 AM CDT Height 172.7 cm (5' 8) 01/06/2014 10:57 AM CDT Body Mass Index 29.19 01/06/2014 10:57 AM CDT documented in this encounter Patient Instructions Patient InstructionsMaDeirdre Reinoso MD - 01/06/2014 11:18 AM CDT Increase Cymbalta to 60 mg once daily. I will also give you a list of counselors. You are due to seeme back March for your diabetic check. Listen to the Servant Song. documented in this encounter Ordered Prescriptions Prescription Sig Dispensed Refills Start Date End Date DULoxetine (CYMBALTA) 60 Take 1 Cap by mouth 30 Cap 1 02/16/2014 MG capsule one time a day. Do not crush. documented in this encounter Progress Notes Deirdre Bedolal MD - 01/07/2014 10:26 AM CDT [facility] Patient Name: AAMIR CASTILLO Date of Service: 01/06/2014 : 1935 Age: 78Y Sex: M Site MRN: Patient Loc/Room #: [facility] FP/ Provider: Deirdre Bedolla MD, Family Practice OFFICE NOTE SITE: [facility] is here today for followup. When I last saw him he was suffering with some depression, had a history of chronic back pain, so we started him on Cymbalta 30 daily. He has not really seen a change in his mood or his back. They saw a spine surgeon yesterday who repeated x-rays and just felt he does not really have any other options. They put him on Celebrex and tramadol. He has done Tramadol in the past and it caused himto be loopy but he is in a little bit of a healthier place now so they are still going to try it andsee how that goes. As far as diabetes, numbers have been good. SOCIAL HISTORY: He is still living independently with his . She is having to do a lot of the cares around the house. She has been suffering with some neck pain. I sort of questioned whether they would maybe qualify for FLOOR MOLDER services to get them some help around the house. We will see if Jessica can help with that. REVIEW OF SYSTEMS: He has had no fevers. He has lost a little bit of weight since I saw him last. EXAM: Height is 68, weight 192, blood pressure 123/71, pulse 68. Generally pleasant, nontoxic, no acute distress. HEENT - atraumatic, normocephalic. Conjunctivae are clear. Heart is regular. Lungs areclear. Psychiatric - well- dressed, well-groomed, alert, oriented. Judgment and insight good. Affect is flat. Mood is still down. 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 We will increase Cymbalta to 60 daily and follow up with me again in March. He will be due for all his diabetic labs at that time, including A1c and basic metabolic profile. Lipids are not due again until September. Deirdre Bedolla MD [facility] cc: /GARRETT Job ID: [id number] /ning/kris (enctr) Document ID: [id number] Farhana Hurley LPN - 01/06/2014 11:01 AM CDT Depression ([place]) Screening Questions 1. During the past month, have you often been bothered by feeling down, depressed, or hopeless? Not at all 2. During the past month, have you often been bothered by little interest or pleasure in doing things? Not at all documented in this encounter Nursing Notes 01/06/2014 10:45 AM CDT >> ASUNCION MIRANDA LPN SatDec 28, 2013 11:10 AM This chart was prepped for visit by Asuncion Miranda LPN on 12/28/2013. documented in this encounter Plan of Treatment Not on filedocumented as of this encounter Goals Goal Patient Goal Associated Recent Patient-Stated? 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 Note: Formatting of [...] as of this encounter Visit Diagnoses Diagnosis Epidural abscess - Primary Intracranial and intraspinal abscess of unspecified site Depression Depressive disorder, not elsewhere class ified documented in this encounter Discontinued Medications Medication Sig Discontinue Reason Start Date End Date naproxen sodum (ALEVE) Take 1 Tab by mouth Course of treatment 09/0501/06/2014 220 MG tablet two times a day completed with meals. Take with food. gabapentin (NEURONTIN) Slowly increase to 10/05/2013 01/06/2014 300 MG capsule 3 pills TID. DULoxetine (CYMBALTA) Take 1 Cap by mouth Adjustment of dose 201301/06/2014 30 MG capsule one time a day. Do not crush. documented as of this encounter Historical Medications This list may reflect changes made after this encounter. Medication Sig Dispensed Refills Start Date End Date gabapentin (NEURONTIN) Take 2 Caps by mouth 810 Cap 3 08/201311/19/2014 300 MG capsule three times a day. added in this encounter Care Teams Scrum Project Manager Relationship Specialty Start Date End Date YESENIA Bedolla - General Family Medicine 06/04/11 01/03/17 Deirdre Mosher MD [address] [address] Jessica Chua RN Video Software Engineer Family Medicine 09/04/13 11/29/14 FIORDALIZA Parish Dewey Ramey Physician Other Pain Management 09/16/13 09/20/14 [facility] [address] [place] [address] Shanice Zarco MD Physician Other Ophthalmology 10/05/[address] [place] [address] Renny Jamil Physician Other Neurosurgery 10/05/13 09/20/14 Marshal Acosta Other Dental Juvenile Detention Officer 10/05/13 [address] [place], [place] [id number] Dr Posey Other Audiology 10/05/13 [place], [place] documented as of this encounter
--- OUTSIDE RECORDS SUMMARY | 2022-06-07 20:58 | XMS_ITS | Encounter Summary ---
:1935 Author Organization [employer] Address [address] [address] Phone Care Team Providers Name Role Phone Deirdre Bedolla MD Primary Care Provider [phone] Jessica Chua RN Unavailable [phone] Dewey Ramey Unavailable Shanice Zarco MD Unavailable Renny Jamil Unavailable Reason for Visit Reason Onset Date Comments Care Coordination Program 01/13/2014 Post-visit Keenan l (Dr Bedolla, 01/06) Encounter Details Date Type Department Care Team Description 01/13/2014 Telephone [facility] Toma, Care Coordination FAMILY MEDICINE Jessica Parish RN Program (Post-visit Call 2023 [facility] [phone] ([place] [address] (Work) 01/06)) [phone] Social History Tobacco Use Types Packs/Day Years Used Date Smoking Tobacco: Never Smokeless Tobacco: Never Alcohol Use Standard Drinks/Week Comments No 0 (1 standard drink = 0.6 oz pure alcoho l) Sex Assigned at Date Recorded Not on file documented as of this encounter Miscellaneous Notes Telephone Encounter - Jessica Chua - 01/13/2014 3:43 PM CDT Subject: Care Coordination Post visit Reviewed notes from office visit with Deirdre Bedolla MD on 01/06/14. Changes not made to Care Plan. Call placed to pt to discuss and review: 1. Pain: Cymbalta dose increased to 60mg once a day - taking. Mary Ann said she was going to stop thetramadol, she mentioned Joe said it doesn't really seem to do anything, and she's heard Joe talking in his sleep and she's worried it may be making him a bit unclear and doesn't want to risk it. Mary Ann mentioned they have an appointment with a provider at [facility] in [place], Vernon Wilcox, to talk about a pain pump. Mary Ann also mentioned it was recommended to Joe by a provider that he start up with physical therapy and focus on balance and ambulation, so that is on their to dolist, as well. I have a copy of a book called When Your Pain Flares Up by [employer] that I will mail to them as well (available in a limited supply to Care Coordination patients). Terranceaid that Joe is doing better than last year, he was grocery shopping when I called, and he has been able to go on their dock and enjoy time out there. 2. Mary Ann said Joe was prescribed Cymbalta 200mg one time a day by Dr Agustín Murphy, an orthopaedic spine surgeon at [facility] and it was inadverdently sent to [facility]. They have been trying to get it transferred to [facility] without success. I called both pharmacies and neither had it onfile. I spoke with the Media Center Director School at Dr Murphy's office and they sent a new prescription to [facility] in [place] and were going to send a copy of the note to Dr Cristobal. 3. Mary Ann said that Joe has expressed a strong interest in seeing a counselor, has an idea of who he would like to go to. They are going to set this up in the near future as they have had a lot of family up over the past week or so. 4. Assistance at home - Mary Ann and I discussed this for a while. They currently have someone hired to help with yard work, she hired someone last week for a few hours to do some cleaning. She said Joe is independent in all of his personal cares and she thinks at this time what would help most are seeing a counselor. Asked that she let me know if she thinks they would like help in their home. Pt's did verbalize understanding of: as above Planned follow up: Deirdre Bedolla MD - in March, scheduled with labs prior documented in this encounter Plan of Treatment Not on filedocumented as of this encounter Goals Goal Patient Goal Associated Recent Patient-Stated? Author Type Problems Progress I want to work Lifestyle Epidural No Wistrom-T he towards getting abscess sing, Lorena a my back pain at E, CENTER MEDICAL AND LAB DIRECTOR, a lower and EVENT CREW TECHNICIAN more tolerable level. Note: Formatting of [...] Diagnoses Not on filedocumented in this encounter Historical Medications This list may reflect changes made after this encounter. Medication Sig Dispensed Refills Start Date End Date celecoxib (CELEBREX) 200 Take 200 mg by mouth 0 0 01/13/2014 04/12/2014 MG capsuleIndications: one time a day. Back Pain Indications: Back Pain added in this encounter Care Teams Bag Bundler Relationship Specialty Start Date End Date Chioma PCP - General Family Medicine 06/04/11 01/03/17 Deirdre Mosher MD [address] [id number] Jessica Chua RN Media Center Director School Family Medicine 09/04/13 11/29/14 FIORDALIZA Parish Dewey Ramey Physician Other Pain Management 09/16/13 09/20/14 [facility] [address] [facility] [address] [place] [address] Shanice Zarco MD Physician Other Ophthalmology 10/05/[address] [place] [id number] Renny Jamil S Physician Other Neurosurgery 10/05/13 09/20/14 Marshal Acosta Other Dental Java Software 10/05/[address] [place] [id number] [address] Posey Other Audiology 10/05/13 [place], [place] documented as of this encounter
--- OUTSIDE RECORDS SUMMARY | 2022-06-07 20:58 | XMS_ITS | Encounter Summary ---
:1935 Author Organization [employer] Address [address] [address] Phone Care Team Providers Name Role Phone Deirdre Bedolla MD Primary Care Provider [phone] Jessica Chua RN Unavailable [phone] Dewey Ramey Unavailable Shanice Zarco MD Unavailable Renny Jamil Unavailable Reason for Visit Reason Onset Date Comments Refill Request 02/16/2014 Encounter Details Date Type Department Care Team Description 02/16/2014 Refill [facility] FAMILY HurleyJerry LPN Refill Request MEDICINE 2023 [facility] [place] [address] Social History Tobacco Use Types Packs/Day Years Used Date Smoking Tobacco: Never Smokeless Tobacco: Never Alcohol Use Standard Drinks/Week Comments No 0 (1 standard drink = 0.6 oz pure alcoho l) Sex Assigned at Date Recorded Not on file documented as of this encounter Ordered Prescriptions Prescription Sig Dispensed Refills Start Date End Date DULoxetine (CYMBALTA) 60 Take 1 capsule by 30 capsule 1 02/0504/09/2014 MG capsule mouth one time a day. Do not crush. documented in this encounter Plan of Treatment Not on filedocumented as of this encounter Goals Goal Patient Goal Associated Recent Patient-Stated? 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 Note: Formatting of this [...] 60 Take 1 Cap by mouth 4 02/16/2014 MG capsule one time a day. Do not crush. documented as of this encounter Care Teams 7Th Grade Social Studies Teacher Relationship Specialty Start Date End Date [facility] PCP - General Family Medicine 06/04/11 01/03/17 Deirdre Mosher MD [address] [phone] Jessica Chua RN Parakeet Raiser Family Medicine 09/04/13 11/29/14 Марина RN Dewey Ramey Physician Other Pain Management 09/16/13 09/20/14 [facility] [address] [facility] [address] [place] [address] Shanice Zarco MD Physician Other Ophthalmology 10/05/[address] [place] [address] Renny Jamil S Physician Other Neurosurgery 10/05/13 09/20/14 Marshal Acosta Other Dental Orthopedic Dentist 10/05/13 [address] [place], [place] [phone] Dr Posey Other Audiology 10/05/13 [place], [place] documented as of this encounter
--- OUTSIDE RECORDS SUMMARY | 2022-06-07 20:58 | XMS_ITS | Encounter Summary ---
:1935 Author Organization [employer] Address [address] [address] Phone Care Team Providers Name Role Phone Deirdre Bedolla MD Primary Care Provider [phone] Jessica Chua RN Unavailable [phone] Dewey Ramey Unavailable Shanice Zarco MD Unavailable Renny Jamil Unavailable Reason for Visit Reason Onset Date Comments Care Coordination Program 10/23/2013 Surgery Follow up Encounter Details Date Type Department Care Team Description 10/23/2013 Telephone [facility] Toma Care Coordination FAMILY MEDICINE Jessica Parish RN Program (Surgery Follow 2023 [facility] [phone] up) [place] [address] (Work) [phone] Social History Tobacco Use Types Packs/Day Years Used Date Smoking Tobacco: Never Smokeless Tobacco: Never Alcohol Use Standard Drinks/Week Comments No 0 (1 standard drink = 0.6 oz pure alcoho l) Sex Assigned at Date Recorded Not on file documented as of this encounter Miscellaneous Notes Telephone Encounter - Jessica Chua - 10/23/2013 10:00 AM CDT Called to see how Joe has been doing after his spinal cord stimulator surgery. He had surgery on 10/15, the procedure note is scanned under the media tab. Spoke with his Mary Ann as Joe was busy with company. Mary Ann said that Joe is doing wonderful and thinks he has a 70% reduction in his pain. Joe sees Dr Ramey on Saturday for a post-op appointment. He is feeling so well in fact they are planning a week long trip to [place] leaving next week to visit one of their sons down there and hisfamily. RN Painter [employer] - Will call in about 2.5 weeks for when they get back from vacation. documented in this encounter Plan of Treatment Not on filedocumented as of this encounter Goals Goal Patient Goal Associated Recent Patient-Stated? 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 Note: Formatting of this [...] Primary documented in this encounter Care Teams Special Warfare Combatant Crewman Relationship Specialty Start Date End Date YESENIA Bedolla - General Family Medicine 06/04/11 01/03/17 Deirdre Mosher MD [address] [address] Jessica Chua RN Painter Ski Edge Family Medicine 09/04/13 11/29/14 FIORDALIZA Parish Dewey Ramey Physician Other Pain Management 09/16/13 09/20/14 [facility] [address] [place] [address] Shanice Zarco MD Physician Other Ophthalmology 10/05/[address] [place] [address] Renny Jamil S Physician Other Neurosurgery 10/05/13 09/20/14 Marshal Acosta Other Dental Drapery Maker 10/05/[address] [place] [phone] Posey Other Audiology 10/05/13 [place], [place] documented as of this encounter
--- OUTSIDE RECORDS SUMMARY | 2022-06-07 20:58 | XMS_ITS | Encounter Summary ---
:1935 Author Organization [email or web address] Address [address] [address] Phone Care Team Providers Name Role Phone Deirdre Bedolla MD Primary Care Provider [phone] Jessica Chua RN Unavailable [phone] Dewey Ramey Unavailable Shanice Zarco MD Unavailable Renny Jamil Unavailable Reason for Visit Reason Comments Urinary Frequency Encounter Details Date Type Department Care Team Description 03/05/2014 Office Visit [facility] Javy Ruiz, Overactive bladder (Primary Dx); [address] BPH (benign prostatic hyperplasia) [place] [address] 2023 [facility] [phone] [place], [place] [address] Social History Tobacco Use Types Packs/Day Years Used Date Smoking Tobacco: Never Smokeless Tobacco: Never Alcohol Use Standard Drinks/Week Comments No 0 (1 standard drink = 0.6 oz pure alcoho l) Sex Assigned at Date Recorded Not on file documented as of this encounter Last Filed Vital Signs Vital Sign Reading Time Taken Comments Blood Pressure 143/84 03/05/2014 8:52 AM haven't took B/P meds CDT yet Pulse 74 03/05/2014 8:52 AM CDT Temperature - - Respiratory Rate - - Oxygen Saturation - - Inhaled Oxygen - - Concentration Weight 87.1 kg (192 lb) 03/05/2014 8:52 AM CDT Height 172.7 cm (5' 8) 03/05/2014 8:52 AM CDT Body Mass Index 29.19 03/05/2014 8:52 AM CDT documented in this encounter Patient Instructions Patient InstructionsJavy Ruiz MD - 03/05/2014 9:45 AM CDT Take Myrbetriq as directed. Discontinue oxybutynin. F/U 1 month documented in this encounter Progress Notes Javy Ruiz MD - 03/09/2014 10:[address] [facility] Patient Name: AAMIR ESCOBAR Date of Service: 03/05/2014 : 1935 Age: 78Y Sex: M Site MRN: Patient Loc/Room #: BRDUR/ Provider: Javy Ruiz MD, Urology OFFICE NOTE SITE: [facility] Patient is a 78-year-[place] to [place]. He has seen Dr. Ro in the past, most recently June 18, 2013, for followup of his overactive bladder and BPH with severe symptoms. Botox has been discussed in the past. 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 He has a neurostimulator in place. He still has some left leg pain. He reports the oxybutynin that he has been on has not helped him. He complains of severe urgency and frequency; nevertheless he is only getting up twice a night. He does not strain on most occasions to void and has only a slightly weakened stream. He is on Flomax also at 0.4 mg per day. Sarah bradford list and medications reviewed. He does have a history of diabetes. We discussed PTNS (i.e. posterior tibial nerve stimulation) versus SNS (sacral nerve stimulation) versus Botox. Patient is mostinterested in Botox. ON EXAM: Blood pressure 143/84, however, he has not taken his blood pressure medicines this morning yet, pulse 74. He states he has chronic right back pain. Currently, his pain is a 0. He appears in noacute distress. No evidence of CVA tenderness. Abdomen - soft and benign. Prostate - is 1+, smooth, anodular, and feels benign. PSA drawn prior to rectal examination. IMPRESSION: Severe lower urinary tract symptoms refractory to anticholinergic medications. PLAN: We will treat with beta agonist Myrbetriq and make arrangements for CMG and cystoscopy as an outpatient. A 40-minute office appointment, over 50% spent in discussion and coordination of care. Javy Ruiz MD [facility] Urology cc: /BJQ Job ID: [id number] /jryuri Document ID: [id number] Javy Ruiz MD - 03/07/2014 11:36 AM CDT This note has been dictated. documented in this encounter Plan of Treatment Not on filedocumented as of this encounter Goals Goal Patient Goal Associated Recent Patient-Stated? Author Type Problems Progress I want to work Lifestyle Epidural No Wistrom-T he towards getting abscess sing, Lorena a my back pain at E, PLASTIC AND RECONSTRUCTIVE SURGEON, a lower and ANTIQUE AUTO MUSEUM MAINTENANCE WORKER more tolerable level. Note: Formatting of [...] Procedure Name Priority Date/Time Associated Comments Diagnosis PSA DIAGNOSTIC Routine 03/05/2014 9:46 AM Overactive bl adder Results for this CDT BPH (benign procedure are i n prostatic the results hyperplasia) section. URINALYSIS, REFLEX Routine 03/05/2014 8:50 AM Overactive bladd er Results for this TO CULTURE CDT procedure are i n the results section. documented in this encounter Results PSA (03/05/2014 9:46 AM CDT) P athologist Signature Prostate 3.28 0.00 - 03/05/2014 [facility] Specific 4.00 ng/mL 2:14 PM CDT LABORATORY Antigen Specimen Anatomical Collection Method Collection Time Receive d Time (Source) Location / / Volume Laterality 03/05/2014 9:46 AM 4 1:14 CDT PM CDT Javy Ruiz MD EC CHEMISTRY ORDERABLES ABN Performing Organization Address City/State/ZIP Code Phon e Number [facility] [address] [place] [address] LABORATORY [facility] LABORATORY UA TO CULTUR PRN (03/05/2014 8:50 AM CDT) Patholo gist Method Time Signature Type CVMS 03/05/2014 ST. 9:02 AM CDT [facility] LABORATORY Color Yellow Yellow 03/05/2014 ST. 9:02 AM CDT [facility] LABORATORY Appearance Clear Clear 03/05/2014 ST. 9:02 AM CDT [facility] LABORATORY Urine Specific 1.015 1.003 - 03/05/2014 [facility] [place] 1.035 9:02 AM T [facility] LABORATORY Urine pH 5.5 5.0 - 8.0 03/05/2014 ST. 9:02 AM T [facility] LABORATORY Urine Leukocyte Neg Neg 03/05/2014 [facility]. [place] 9:02 AM CDT [facility] LABORATORY Urine Nitrites Neg Neg 03/05/2014 ST. 9:02 AM CDT [facility] LABORATORY Urine Protein Neg Neg-Trace 03/05/2014 ST. mg/dL 9:02 AM CDT [facility] LABORATORY Urine Glucose Neg Neg mg/dL 03/05/2014 ST. 9:02 AM T [facility] LABORATORY Urine Ketone Neg Neg mg/dL 03/05/2014 ST. 9:02 AM T [facility] LABORATORY Microscopic Not Indicated 03/05/2014 ST. Exam: 9:02 AM CDT [facility] LABORATORY Comment: Please Note: A routine urine not reflexing to a micro scopic exam automatically means the dipstick blood t est is negative. Urine WBC's Not Indicated 0 - 8 /HPF 03/05/2014 9:02 AM [facility] Urine RBC's Not Indicated 0 - 3 /HPF 03/05/2014 9:02 AM Lesley AMBRIZ CDT [facility] Urine Culture Not Indicated 03/05/2014 9:[address] AMBRIZ Reflex CDT [facility] LAB[facility] Specimen Anatomical Collection Method Collection Time Receive d Time (Source) Location / / Volume Laterality CORN PRESS OPERATOR 03/05/2014 8:50 AM 03/05/20 14 9:01 MID-STREAM URINE CDT AM CDT SPECIMEN OBTAINED BY CLEAN CATCH PROCEDURE / Unknown Javy Ruiz MD EC URINE ORDERABLES Performing Organization Address City/State/ZIP Code Phon e Number [facility] documented in this encounter Visit Diagnoses Diagnosis Overactive bladder - Primary Hypertonicity of bladder BPH (benign prostatic hyperplasia) Unspecified hyperplasia of prostate with out urinary obstruction and other lower urinary tract symptoms (LUTS) documented in this encounter Orders Imaging Orders Without Results Count Last Ordered Date First Ordered Date US EXAM PELVIC LIMITED 1 03/05/2014 documented in this encounter Care Teams Financial Risk Manager Relationship Specialty Start Date End Date YESENIA Bedolla - General Family Medicine 06/04/11 01/03/17 Deirdre Mosher MD [address] [id number] Jessica Chua RN Reference Data Expert Family Medicine 09/04/13 11/29/14 [facility] Dewey Ramey Physician Other Pain Management 09/16/13 09/20/14 [facility] [address] [place] [id number] Shanice Zarco MD Physician Other Ophthalmology 10/05/[address] [place] [address] Renny Jamil S Physician Other Neurosurgery 10/05/13 09/20/14 Marshal Acosta Other Dental Boardmarker 10/05/[address] [place] [id number] Posey Other Audiology 10/05/13 [place], [place] documented as of this encounter
--- OUTSIDE RECORDS SUMMARY | 2022-06-07 20:58 | XMS_ITS | Encounter Summary ---
:1935 Author Organization [employer] Address [address] [address] Phone Care Team Providers Name Role Phone Deirdre Bedolla MD Primary Care Provider [phone] Jessica Chua RN Unavailable [phone] Dewey Ramey Unavailable Shanice Zarco MD Unavailable Renny Jamil Unavailable Reason for Visit Reason Comments Follow Up Encounter Details Date Type Department Care Team Description 11/17/2013 Office Visit [facility] Raúl Bedolla (Primary Dx); CLINIC FAMILY Deirdre Mosher MD Anxiety MEDICINE [address] [place] [address] [place], [place] [id number] [phone] Social History Tobacco Use Types Packs/Day Years Used Date Smoking Tobacco: Never Smokeless Tobacco: Never Alcohol Use Standard Drinks/Week Comments No 0 (1 standard drink = 0.6 oz pure alcoho l) Sex Assigned at Date Recorded Not on file documented as of this encounter Last Filed Vital Signs Vital Sign Reading Time Taken Comments Blood Pressure 122/73 11/17/2013 3:24 PM CDT Pulse 63 11/17/2013 3:24 PM CDT Temperature - - Respiratory Rate - - Oxygen Saturation - - Inhaled Oxygen Concentration - - Weight 89.4 kg (197 lb) 11/17/2013 3:24 PM CDT Height 172.7 cm (5' 8) 11/17/2013 3:24 PM CDT Body Mass Index 29.95 11/17/2013 3:24 PM CDT documented in this encounter Patient Instructions Patient InstructionsMaDeirdre Reinoso MD - 11/17/2013 3:15 PM CDT Start Cymbalta one every morning, this can take a few weeks to start working, be patient. See me in 4-6 weeks. documented in this encounter Ordered Prescriptions Prescription Sig Dispensed Refills Start Date End Date DULoxetine (CYMBALTA) 30 Take 1 Cap by mouth 30 Cap 1 01/06/2014 MG capsule one time a day. Do not crush. documented in this encounter Progress Notes Deirdre Bedolla MD - 11/19/2013 8:[address] [facility] Patient Name: SIMON CASTILLO Date of Service: 11/17/2013 : 1935 Age: 78Y Sex: M DC Site MRN: Patient Loc/Room #: [facility] FP/ Provider: Deirdre Bedolla MD, Family Practice OFFICE NOTE SITE: [facility] SUBJECTIVE: Joe is a 78-year-old gentleman here today for followup of back pain. His story is complex. He has had a history of an infected spinal surgery with epidural abscess, diskitis, and osteomyelitis. He has had a spinal cord stimulator in place and he feels like that has made him 55% better. Hestill has some painful thoughts. His divulged to me before the visit and he concurs that emotionally things have been a little bit of a struggle. She relates that he seems to be easily frustrated and kind of stuck on things. Justgets really agitated. He says sometimes he just wonders what his worth is and says that he would like to go in the garage, turn the car on, and shut the door. He says he would never actually do that. He does not know why he says these things, but clearly is struggling a little bit emotionally. He wants to do things, cannot, and still has to use his walker a lot. Has some dark days and does endorse frustration and some anxiety. PAST MEDICAL HISTORY: 1. Coronary artery disease with GA in 1989. Had right coronary stenting at that time and then an GA again June 2012, which was restenosis of that stent. He had bare metal stents and actually coded in the ambulance on the way to [place]. 2. Type 2 diabetes, off meds. 3. History of epidural abscess, diskitis, and osteomyelitis, off his antibiotics. He is intolerant to narcotics and suffers with chronic pain. Recent spinal cord stimulator placed. 4. Reflux. 5. Hyperlipidemia. 6. Hypertension. 7. History of cervical neck fracture. 8. Benign prostatic hypertrophy. 9. Erectile dysfunction. 10. History of hypokalemia. 11. Chronic hearing loss. 12. New diagnosis of depression/anxiety. REVIEW OF SYSTEMS: Pain is better. Not having as many bladder symptoms. No bowel symptoms. EXAM: Height is 68, weight 197, blood pressure 122/73, pulse is 63. Generally - pleasant, nontoxic, no acute distress. HEENT - head atraumatic, normocephalic. Conjunctivae are clear. Heart is regular. Lungs are clear. Psychiatric - well dressed, well groomed, alert, oriented. Judgment and insight good. Affect is full. Mood is good, but sometimes down. ASSESSMENT AND PLAN: Back pain and anxiety. I do think Cymbalta might be an excellent choice to try to help augment some of his other modalities for his chronic back pain with his infected previous surgery, osteomyelitis, and diskitis. I do think it might take the edge off of some of the anxiety as well. Will start 30 mg just once daily as he has been very sensitive to meds in the past, and I would like to see him back in 4 to 6 weeks. There is certainly room to titrate up from there as needed. Deirdre Bedolla MD [facility] cc: /GARRETT Job ID: [id number] /kt Document ID: [id number] Farhana Hurley LPN - 11/17/2013 3:25 PM CDT Fall Risk Yes: Walker Depression ([place]) Screening Questions 1. During the past month, have you often been bothered by feeling down, depressed, or hopeless? Not at all 2. During the past month, have you often been bothered by little interest or pleasure in doing things? Not at all documented in this encounter Plan of Treatment Not on filedocumented as of this encounter Goals Goal Patient Goal Associated Recent Patient-Stated? 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 Note: Formatting of this [...] as of this encounter Visit Diagnoses Diagnosis Back pain - Primary Backache, unspecified Anxiety Anxiety state, unspecified documented in this encounter Care Teams Casing Trimmer Relationship Specialty Start Date End Date YESENIA Bedolla - General Family Medicine 06/04/11 01/03/17 Deirdre Msoher MD [address] [phone] Jessica Chua RN Biological Science Aide Family Medicine 09/04/13 11/29/14 [facility] Dewey Ramey Physician Other Pain Management 09/16/13 09/20/14 [facility] [address] [place] [address] [address] [place] [phone] Shanice Zarco MD Physician Other Ophthalmology 10/05/13 [address] [place] [address] Renny Jamil S Physician Other Neurosurgery 10/05/13 09/20/14 Marshal Acosta Other Dental Senior Director 10/05/[address] [place] [id number] Posey Other Audiology 10/05/13 [place], [place] documented as of this encounter
--- OUTSIDE RECORDS SUMMARY | 2022-06-07 20:58 | XMS_ITS | Encounter Summary ---
:1935 Author Organization [employer] Address [address] [address] Phone Care Team Providers Name Role Phone Deirdre Bedolla MD Primary Care Provider [phone] Jessica Chua RN Unavailable [phone] Dewey Ramey Unavailable Shanice Zarco MD Unavailable Renny Jamil Unavailable Reason for Visit Reason Comments Bladder follow up CMG Encounter Details Date Type Department Care Team Description 04/07/2014 Office Visit [facility] Javy Ruiz, Overactive bladder (Primary Dx); [address] BPH (benign prostatic hyperplasia); [place] [address] 2023 [facility] Lower urinary tract symptoms (LUTS); [phone] Urinary retention [place] [address] Social History Tobacco Use Types Packs/Day Years Used Date Smoking Tobacco: Never Smokeless Tobacco: Never Alcohol Use Standard Drinks/Week Comments No 0 (1 standard drink = 0.6 oz pure alcoho l) Sex Assigned at Date Recorded Not on file documented as of this encounter Last Filed Vital Signs Vital Sign Reading Time Taken Comments Blood Pressure 119/78 04/07/2014 3:47 PM CDT Pulse 77 04/07/2014 3:47 PM CDT Temperature - - Respiratory Rate - - Oxygen Saturation - - Inhaled Oxygen Concentration - - Weight - - Height - - Body Mass Index - - documented in this encounter Patient Instructions Patient InstructionsJavy Ruiz MD - 04/07/2014 4:46 PM CDT Take Vesicare In place of oxybutynin. F/U 1 month. Also take Finasteride. documented in this encounter Ordered Prescriptions Prescription Sig Dispensed Refills Start Date End Date finasteride (PROSCAR) 5 MG Take 1 Tab by mouth 90 Tab 3 04/07/2014 04/15/2015 tablet one time a day. Do not crush. documented in this encounter Progress Notes Javy Ruiz MD - 04/09/2014 6:35 PM CDT [facility] Patient Name: AAMIR ESCOBAR Date of Service: 04/07/2014 : 1935 Age: 78Y Sex: M Site MRN: Patient Loc/Room #: BRDUR/ Provider: Javy Ruiz MD, Urology OFFICE NOTE SITE: [facility] Bill is a 78-year-old who presents for followup of overactive bladder, BPH with incomplete bladder emptying. He has been tried on a myriad of anticholinergic medications, most recently Myrbetriq which did nothing to help his urinary urgency and frequency. The patient is also on tamsulosin for BPH and lower urinary tract symptoms. Cystometrogram, EMG, and uroflow were recommended along with cystoscopyand followup of Myrbetriq. Patient presents today for all of these things. First urodynamics were done. CMG reveals a small capacity hypertonic bladder, first sensation at 36 mL, strong desire at 129 mL, maximum capacity of approximately 135 mL. Patient had a residual urine of 100 mL; therefore, is retaining as much as he can hold. He has evidence of a hypertonic bladder. He had leakage as early as 37 mL of filling. EMG shows coordinated voiding, i.e. no evidence of bladder sphincter dyssynergia. With his bladder pressures at leak point of 88 and 79 mL he appears to have element of obstruction, this is also shown on uroflow with a peak flow rate of 7 mL/sec. Interpretation of CMG is a small functional capacity with hypertonic bladder contractions. Detrusor Plotz study indicates obstruction. I also recommended flexible cystourethroscopy and after informed consent, he is prepped, 2% lidocaine placed per urethra. This reveals no evidence of urethral stricture. Cystoscopy does show 3.5 to 4 cm length of prostatic obstruction, mild to moderate bladder trabeculation. No stones, tumors, or foreign bodies. IMPRESSION: BPH with partial urinary retention and overactive bladder. PLAN: We will implement VESIcare for 1 month, dose of 10 mg a day. We will also add Finasteride to his medical regimen. Follow up in 1 month. In addition to interpretation of the tests and the tests themselves extra 15 minutes spent explaining the tests to the patient and coordinating the care and treatment. Javy Ruiz MD [facility] Urology cc: /BJQ Job ID: [id number] /lb Document ID: [id number] Deirdre Kumar RN - 04/07/2014 4:50 PM CDT Patient here for Urodynamic studies. Patient identified, procedure explained, consent obtained. Complex cystometrogram with voiding pressure studies, Complex uroflow, EMG studies of anal and urethral sphincter, Intra-abdominal voiding pressure completed per Dr. Ruiz orders. Patient tolerated procedure well. Written and Verbal report given to Dr. Ruiz. Shelli Chung LPN assisted with CMG, performing catheter placements. Javy Ruiz MD - 04/07/2014 4:46 PM CDT This note has been dictated. Deloris Ro - 04/07/2014 3:52 PM CDT Patient was given Cipro 500 mg po prior to procedure per Dr. Ruiz. documented in this encounter Plan of Treatment Scheduled Orders Name Type Priority Associated Diagnoses Order S chedule ELECTRO-UROFLOWMETRY Procedures Routine Overactive bladder Ordered: 04/07/2014 , FIRST BPH (benign prostatic hyperplasia) Lower urinary tract symptoms (LUTS) Urinary retention documented as of this encounter Goals Goal Patient Goal Associated Recent Patient-Stated? 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 Note: Formatting of [...] Procedure Name Priority Date/Time Associated Comments Diagnosis CYSTOURETHROSCOPY Routine 04/07/2014 5:06 Overactive isidro dder PM CDT BPH (benign prostatic hyperplasia) Lower urinary tract symptoms (LUTS) Urinary retention ANAL/URINARY MUSCLE STUDY Routine 04/07/2014 5:06 Overac tive bladder PM CDT BPH (benign prostatic hyperplasia) Lower urinary tract symptoms (LUTS) Urinary retention URINALYSIS, REFLEX TO Routine 04/07/2014 2:45 Overactive bladd er Results for this CULTURE PM CDT procedure are i n the results section. CMPLX CMG/VOID PRESSURE Routine 04/07/2014 Overacti ve bladder STUDY BPH (benign prostatic hyperplasia) Lower urinary tract symptoms (LUTS) Urinary retention documented in this encounter Results (ABNORMAL) UA TO CULTUR PRN (04/07/2014 2:45 PM CDT) [facility] Method Time Signature Type CVMS 04/07/[address] 2:51 PM CDT [facility] Color Yellow Yellow 04/07/[address] 3:01 PM CDT [facility] Appearance CLOUDY Clear 04/07/[address] 3:01 PM CDT [facility] Urine Specific 1.025 1.003 - 04/07/2014 [facility] [place] 1.035 3:01 PM [facility] Urine pH 5.5 5.0 - 8.0 04/07/2014 ST. 3:01 PM [facility] Urine Leukocyte Neg Neg 04/07/2014 ST. E[place] 3:01 PM [facility] Urine Nitrites Neg Neg 04/07/[address] 3:01 PM [facility] Urine Protein Neg Neg-Trace 04/07/2014 ST. mg/dL 3:01 PM [facility] Urine Glucose Neg Neg mg/dL 04/07/2014 ST. 3:01 PM [facility] Urine Ketone Neg Neg mg/dL 04/07/2014 ST. 3:01 PM [facility] Microscopic ORDERED 04/07/2014 ST. Exam: 3:01 PM [facility] Comment: Please Note: A routine urine not reflexing to a micro scopic exam automatically means the dipstick blood t est is negative. Urine WBC's None seen 0 - 8 /HPF 04/07/2014 3:01 PM [facility] Urine RBC's =100+ (A) 0 - 3 /HPF 04/07/2014 3:01 PM [facility] Comment: Large amt blood on dipstick. Urine Squamous Occasional /LPF 04/07/2014 3:[address] Roseann AMBRIZ Epithelial Cells [facility] RENAL EPI Few (A) /LPF 04/07/2014 3:[address] BAR[facility] AYALA [facility] Urine Bacteria Occasional (A) /HPF 04/07/2014 3:[address] AMBRIZ [facility] Urine Culture Reflex Not Indicated 04/07/2014 3:[address] [facility]RED[facility] Specimen Anatomical Collection Method Collection Time Receive d Time (Source) Location / / Volume Laterality URINARY BLADDER 04/07/2014 2:45 PM 2013 2:50 STRUCTURE / CDT PM CDT Unknown Javy Ruiz MD [facility] URINE ORDERABLES Performing Organization Address City/State/ZIP Code Phon e Number [facility] CMPLX CMG/VOID PRESSURE STUDY (04/07/2014) Narrative This result has an attachment that is no t available. Javy Ruiz MD [facility] PROCEDURES documented in this encounter Visit Diagnoses Diagnosis Overactive bladder - Primary Hypertonicity of bladder BPH (benign prostatic hyperplasia) Unspecified hyperplasia of prostate with out urinary obstruction and other lower urinary tract symptoms (LUTS) Lower urinary tract symptoms (LUTS) Other symptoms involving urinary system Urinary retention Retention of urine, unspecified documented in this encounter Historical Medications This list may reflect changes made after this encounter. Medication Sig Dispensed Refills Start Date End Date solifenacin (VESICARE) 10 Take 1 Tab by 30 Tab 0 014 04/29/2014 MG tablet mouth one time a day. ciprofloxacin (CIPRO) 500 Take 1 Tab by 1 Tab 0 014 04/18/2014 MG tablet mouth two times a day. added in this encounter Orders Procedures Count Last Ordered Date First Ordered Date ANAL/URINARY MUSCLE STUDY 1 04/07/2014 CYSTOURETHROSCOPY 1 04/07/2014 documented in this encounter Care Teams Rotary Drier Relationship Specialty Start Date End Date Chioma PCP - General Family Medicine 06/04/11 01/03/17 Deirdre Mosher MD [address] [id number] Jessica Chua RN Um Nurse Family Medicine 09/04/13 11/29/14 [facility] Dewey Ramey Physician Other Pain Management 09/16/13 09/20/14 [facility] [address] [place] [address] Shanice Zarco MD Physician Other Ophthalmology 10/05/[address] [place] [address] Renny Jamil S Physician Other Neurosurgery 10/05/13 09/20/14 Marshal Acosta Other Dental Nursing Teacher 10/05/[address] [place] [id number] Posey Other Audiology 10/05/13 [place], [place] documented as of this encounter
--- OUTSIDE RECORDS SUMMARY | 2022-06-07 20:58 | XMS_ITS | Encounter Summary ---
:1935 Author Organization [employer] Address [address] [address] Phone Care Team Providers Name Role Phone Deirdre Bedolla MD Primary Care Provider [phone] Jessica Chua RN Unavailable [phone] Dewey Ramey Unavailable Shanice Zarco MD Unavailable Renny Jamil Unavailable Encounter Details Date Type Department Care Team Description 12/18/2013 Hospital Encounter [facility] Radiology Yasmani Ray, Nuclear Medicine [address] [address] ORTHOPEDICS [phone] [place] [address] (Wo rk) Social History Tobacco Use Types Packs/Day Years Used Date Smoking Tobacco: Never Smokeless Tobacco: Never Alcohol Use Standard Drinks/Week Comments No 0 (1 standard drink = 0.6 oz pure alcoho l) Sex Assigned at Date Recorded Not on file documented as of this encounter Medications at Time of Discharge Medication Sig Dispensed Refills Start Date End Date polyethylene glycol 3350 MIX 17 GRAMS (ONE [...] 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 Note: Formatting [...] Name Priority Date/Time Associated Diagnosis Comme nts NM THREE PHASE BONE Routine 12/18/2013 12:56 PM R esults for this SCAN CDT procedure are i n the results section. documented in this encounter Results NM THREE PHASE BONE SCAN (12/18/2013 12:56 PM CDT) Anatomical Region Laterality Modality Spine, Pelvis, Shoulder, Arm, Elbow, Forearm, Thigh, Nuclear Medicine Hand, Wrist, Hip, Knee, Leg, Ankle, Foot, C-Spine, T-spine, L-spine, Other Specimen (Source) Anatomical Collection Method Collection Time Re ceived Time Location / / Volume Laterality 12/18/2013 12:56 PM CDT Addenda Addendum by Andi Galvez MD on 9:59 AM CDT This document is currently in Addendum S tatus Exam ADDENDUM: Plain films of the lumbar spine and pelv is are now available from [facility]. There is some additional r adiotracer uptake in the L4 vertebral body compatible with more rece nt compression deformity. MRI of the lumbar spine could be considered to further evaluate these findings. The comparison films are only of the pelvis and do not ??include the distal f emoral stem of the left hip prosthesis. Again the findings on bone s can are felt to be related to stress change and not fracture in this region. Dictated By: Andi Galvez MD 12/18/2013 3:24 PM Edited By: AMALIA 12/18/2013 5:02 PM Signed: Andi Galvez MD 12/20/2013 9:59 AM Narrative 12/18/2013 2:51 PM CDT This document is currently in Final Status Exam NM THREE PHASE BONE SCAN HISTORY: loosening and/or infection; rul e out ; Region of Interest and Additional Information->left hip Technique: 20.5 mCi of technetium 99 MDP was administered intravenously and a 3 phase bone scan of the pelvis and proximal femurs were performed. COMPARISON: No comparisons of the left h ip at this time. Films from [facility] and [facility] orthopaedics have been requested. FINDINGS: There is some linear radiotrac er uptake along the margins of the femoral stem of the left hip prosthesis likely representing normal stress changes. No findings to suggest fracture of the left hip. Right hip appears unremarkable. Gwendolyn ging of the lumbar spine demonstrates diffuse modera te degenerative changes. There appears to be fractures of the left anterior rib margins of the 9th 10th and 11th ribs.. There is also fracture of the posterior aspect of the right 11th rib. Impression: There is some radiotracer uptake that is linear in configuration along the margin of the distal stem of the left hip prosthesis at the level of the proximal femur. This likely represents normal stress change, no fracture in this region. Multiple rib fractures involving the ant erior margins of C3 lower left ribs and the posterior margin of a lower right rib. Signed: Andi Galvez MD 12/18/2013 2:51 PM Procedure Note Andi Galvez MD - 01/04/2014Format ting of this note might be different from the original. This document is currently in Final Stat us Exam NM THREE PHASE BONE SCAN HISTORY: loosening and/or infection; rul e out ; Region of Interest and Additional Information->left hip Technique: 20.5 mCi of technetium 99 MDP was administered intravenously and a 3 phase bone scan of the pelvis and proximal femurs were performed. COMPARISON: No comparisons of the left h ip at this time. Films from [facility] and [facility] in orthopaedics have been requested. FINDINGS: There is some linear radiotrac er uptake along the margins of the femoral stem of the left hip prosthesis likely representing normal stress changes. No findings to suggest fracture of the left hip. Right hip appears unremarkable. Imaging of the lumbar spine demonstrates diffuse modera te degenerative changes. There appears to be fractures of the left anterior rib margins of the 9th 10th and 11th ribs.. There is also fracture of the posterior aspect of the right 11th rib. Impression: There is some radiotracer uptake that is linear in configuration along the margin of the distal stem of the left hip prosthesis at the level of the proximal femur. This likely represents normal stress change, no fracture in this region. Multiple rib fractures involving the ant erior margins of C3 lower left ribs and the posterior margin of a lower right rib. Signed: Andi Galvez MD 12/18/2013 2:51 PM Yasmani Ray MD NM ORDERABLES documented in this encounter Visit Diagnoses Not on filedocumented in this encounter Administered Medications Inactive Administered Medications Medication Order MAR Action Action Date Dose Rate Site sodium chloride 0.9 % (NS) Given 12/18/2013 8:40 AM CDT 10 mL injection 10 mL 10 mL, IV Flush, ONCE, 1 dose, On Sat12/18/13 at 0830 Tc99m MDP 20 millicurie Given 12/18/2013 8:40 AM CDT 20.5 millicuries 20 millicurie, IV Push, ONCE, 1 dose, On Sat12/18/13 at 0830 documented in this encounter Care Teams Manager Of Planning Relationship Specialty Start Date End Date Chioma PCP - General Family Medicine 06/04/11 01/03/17 Deirdre Mosher MD [address] [id number] Jessica Chua RN Bradley Linebacker Crewmember Family Medicine 09/04/13 11/29/14 [facility] Dewey Ramey Physician Other Pain Management 09/16/13 09/20/14 [facility] [address] [place] [address] [address] [place] [address] Shanice Zarco MD Physician Other Ophthalmology 10/05/13 [address] [place] [id number] Renny Jamil Physician Other Neurosurgery 10/05/13 09/20/14 Marshal Acosta Other Dental Tongue And Groove Machine Operator 10/05/[address] [place] [address] [address] Posey Other Audiology 10/05/13 [place], [place] documented as of this encounter
--- OUTSIDE RECORDS SUMMARY | 2022-06-07 20:58 | XMS_ITS | Encounter Summary ---
:1935 Author Organization [employer] [facility] Address [address] [address] Phone Care Team Providers Name Role Phone Deirdre Bedolla MD Primary Care Provider [phone] Jessica Chua RN Unavailable [phone] Dewey Ramey Unavailable Shanice Zarco MD Unavailable Renny Jamil Unavailable Reason for Visit Reason Comments Refill Request potassium chloride CR ([facility]IA [facility]ARR) 20 MEQ tablet Encounter Details Date Type Department Care Team Description 01/20/2014 Refill [facility] Riaz Bedolla efill Request FAMILY MEDICINE Deirdre Mosher MD (potassium chloride CR 2023 [facility] eet [address] ([facility]ARR) 20 [place] [address] [place] [address] MEQ tablet) [phone] (Wo rk) Social History Tobacco Use Types [...] CR TAKE ONE TABLET BY 90 Tab 3 201302/01/2015 ([facility]) 20 MEQ MOUTH ONE TIME tablet DAILY documented in this encounter Miscellaneous Notes Telephone Encounter - Mayte Ceja RN - 01/22/2014 9:50 AM CDT Last ordered 06/2012 documented in this encounter Plan of Treatment Not on filedocumented as of this encounter Goals Goal Patient Goal Associated Recent Patient-Stated? 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 Note: Formatting of [...] potassium chloride CR TAKE ONE TABLET BY 06/09/2012 01/20/2014 ([facility]) 20 MOUTH ONE TIME DAILY MEQ tablet documented as of this encounter Care Teams Sales Representative Facility Services Relationship Specialty Start Date End Date Chioma PCP - General Family Medicine 06/04/11 01/03/17 Deirdre Mosher MD [address] [id number] Jessica Chua RN Program Advisor Family Medicine 09/04/13 11/29/14 [facility] [place] Ramey Physician Other Pain Management 09/16/13 09/20/14 [facility] [address] [place] [address] Shanice Zarco MD Physician Other Ophthalmology 10/05/[address] [place] [address] Renny Jamil S Physician Other Neurosurgery 10/05/13 09/20/14 Marshal Acosta Other Dental Diamond Setter 10/05/[address] [place] [id number] Posey Other Audiology 10/05/13 [place], [place] documented as of this encounter
--- OUTSIDE RECORDS SUMMARY | 2022-06-07 20:58 | XMS_ITS | Encounter Summary ---
:1935 Author Organization [employer] Address [address] [address] Phone Care Team Providers Name Role Phone Deirdre Bedolla MD Primary Care Provider [phone] Jessica Chua RN Unavailable [phone] Dewey Ramey Unavailable Shanice Zarco MD Unavailable Renny Jamil Unavailable Reason for Visit Reason Comments Diabetes micro Blood Pressure Encounter Details Date Type Department Care Team Description 04/05/2014 Office Visit [facility]EN[facility] Bedolla Diabetes (Primary Dx); CLINIC FAMILY Deirdre Mosher MD Hypertension; MEDICINE [address] Hyperlipidemia; [address] [facility] [address] Heart disease; [place] [address] Need for prophylactic vaccination and in oculation against influenza; [place] [id number] Depression; Epidural abscess Social History Tobacco Use Types Packs/Day Years Used Date Smoking Tobacco: Never Smokeless Tobacco: Never Alcohol Use Standard Drinks/Week Comments No 0 (1 standard drink = 0.6 oz pure alcoho l) Sex Assigned at Date Recorded Not on file documented as of this encounter Last Filed Vital Signs Vital Sign Reading Time Taken Comments Blood Pressure 132/78 04/05/2014 10:15 AM CDT Pulse 65 04/05/2014 10:15 AM CDT Temperature - - Respiratory Rate - - Oxygen Saturation - - Inhaled Oxygen Concentration - - Weight 92.5 kg (204 lb) 04/05/2014 10:15 AM CDT Height 172.7 cm (5' 8) 04/05/2014 10:15 AM CDT Body Mass Index 31.02 04/05/2014 10:15 AM CDT documented in this encounter Patient Instructions Patient InstructionsMaann-Deirdre Cristobal MD - 04/05/2014 10:29 AM CDT I really want you to watch your weight, you are up over 10 pounds and your diabetes is going to worsen if you can't make some changes there. You mood seems up and hopeful with your new doctor. You have options for both pain and mood- we can re-try a medication for pain or we could adjust the depression meds if you start to slip. STOP your Zocor (Simvastatin) and start Lipitor 40mg instead. Studies show that patients with a history of diabetes or heart disease to better on this than Simvastatin. See me after the first of the year with full labs. documented in this encounter Ordered Prescriptions Prescription Sig Dispensed Refills Start Date End Date atorvaSTATin (LIPITOR) 40 Take 1 Tab by mouth 90 Tab 3 0 04/05/2014 MG tablet at bedtime. influenza virus vaccine Inject 0.5 mL into 0.5 mL 0 01/201404/13/2014 quad, Age 3-64 years, the muscle one time (FLUZONE) 0.5 ML for 1 dose. SUSPIndications: Need for prophylactic vaccination and inoculation against influenza influenza virus vaccine Inject 0.25 mL into 0.25 mL 0 04/13/2014 quad, Age 6-35 months, the muscle one time (FLUZONE PEDIATRIC) 0.25 for 1 dose. ML SUSPIndications: Need for prophylactic vaccination and inoculation against influenza documented in this encounter Progress Notes Deirdre Bedolla MD - 04/07/2014 11:[address] [facility] Patient Name: AAMIR ESCOBAR Date of Service: 04/05/2014 : 1935 Age: 78Y Sex: M Site MRN: Patient Loc/Room #: [facility] FP/ Provider: Deirdre Bedolla MD, Family Practice OFFICE NOTE SITE: [facility] SUBJECTIVE: Joe is here today for several things. First of all, he has diabetes, has gained some weight. A1c is going up a little bit, so we need to discuss that. He has a long history of back pain and infected spinal hardware. The pain is 15 out of 10. His related that he had been getting kind of depressed about it. He has a new doctor at [facility] and is feeling very hopeful, does not really want me to do anything about the pain at this time. Does not really want to make any changes in his depression medicines as he is just feeling hopeful that this doctor will have some of the answers for him. On that note, there is a plan for him to have a left hip injection, possibly a right knee injection.He is on Plavix; they already have cleared that with his helicopter dispatcher. He said it would be fine to stop it for a week. No other new concerns today. Joe is just feeling very, very hopeful about this new physician down at [facility]. PAST MEDICAL HISTORY: 1. Coronary artery disease with an WA in 1989. Had right coronary stenting at that time then an WA again in June of 2012, which was restenosis of that stent. He had bare-metal stents and coded in the ambulance on the way to [place]. 2. Type 2 diabetes - off meds since weight loss. 3. History of epidural abscess diskitis and osteomyelitis - off antibiotics. Suffers with chronic pain, has a spinal cord stimulator in place. Seen [facility]. 4. Reflux. 5. Hyperlipidemia. 6. Hypertension. 7. History of cervical neck fracture. 8. Benign prostatic hypertrophy. 9. Erectile dysfunction. 10. Hypokalemia. 11. Chronic hearing loss. 12. Depression and anxiety. REVIEW OF SYSTEMS: Moods he says are pretty good. He knows he has been gaining weight. EXAM: Height is 68, weight 204, blood pressure 132/78, pulse 65. Generally pleasant, nontoxic, in noacute distress. HEENT - atraumatic, normocephalic. Conjunctivae are clear. Heart is regular. Lungs are clear. Extremities - no edema. ASSESSMENT AND PLAN: 1. Type 2 diabetes. He has gained some weight. Counseled on weight loss. Otherwise, he may have to restart some of his diabetes meds. See me in 3 months with lipids, BMP, A1c first. 2. Hyperlipidemia. Discussed recent guidelines suggesting that people who have had heart disease or diabetes do better on high-dose statins. Certainly Joe does fall under that category. He is willing to make a change. I will stop the simvastatin, start Lipitor 40 daily. 3. Hypertension. Blood pressure well-controlled. Watch weight. May need to make changes in that as well. 4. Heart disease. His helicopter dispatcher did okay him to stop his Plavix. 5. Depression. He declines any issues with this today and says he is feeling extremely hopeful now that he has a new appointment at [facility]. Says he was getting a little depressed before that. 6. Chronic pain with epidural abscess and osteomyelitis. Again offered pain medications. He really would prefer to hold off on any of them and see how things go with [facility]. 7. See me in 3 months, labs first. Flu shot was given today. Deirdre Bedolla MD [facility] Practice cc: /GARRETT Job ID: [id number] / Document ID: [id number] Napoleon Hinojosa LPN - 04/05/2014 10:17 AM CDT Depression ([place]) Screening Questions 1. During the past month, have you often been bothered by feeling down, depressed, or hopeless? Not at all 2. During the past month, have you often been bothered by little interest or pleasure in doing things? Not at all documented in this encounter Nursing Notes Serenity Miranda LPN - 03/22/2014 11:30 AM CDT This chart was prepped for visit by Serenity Miranda LPN on 03/22/2014. documented in this encounter Miscellaneous Notes Addendum Note - Napoleon Hinojosa LPN - 04/13/2014 9:58 AM CDT Addended by: NAPOLEON HINOJOSA on: 04/13/2014 09:58 AM Modules accepted: Orders, SmartSet Addendum Note - Mary Grace Casarez - 04/05/2014 10:59 AM CDT Addended by: MARY GRACE CASAREZ on: 04/05/2014 10:59 AM Modules accepted: Orders documented in this encounter Plan of Treatment Scheduled Orders Name Type Priority Associated Diagnoses Order S chedule HOLD LI HEPARIN Lab STAT Diabetes Expected: , Expires: 05/21/2014 documented as of this encounter Goals Goal Patient Goal Associated Recent Patient-Stated? 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 Note: Formatting of [...] Name Priority Date/Time Associated Diagnosis Comme nts MICROALBUMIN/CREATI Routine 04/05/2014 11:01 AM Diabetes R esults for this NINE RATIO, URINE CDT procedure are in the results section. documented in this encounter Results (ABNORMAL) A1C(HGB AIC) (07/15/2014 9:03 AM SPORTS JOURNALIST) P athologist Signature A1C (HGB AIC) 6.3 (H) 4.0 - 6.0 07/15/2014 E[facility] [place] % 9:29 AM SPORTS JOURNALIST [facility] Est Average 134 mg/dL 07/15/2014 [place] Glucose 9:29 AM [facility] Comment: According to ADA guidelines, the estim ed average glucose (eAG) will be calculated for all HgbA1c results. Specimen Anatomical Collection Method Collection Time Receive d Time (Source) Location / / Volume Laterality 07/15/2014 9:03 AM 201 5 9:12 SPORTS JOURNALIST AM SPORTS JOURNALIST Narrative [facility] LABORATORY - 07/15/2014 9:29 AM SPORTS JOURNALIST Fasting Deirdre Bedolla MD EC CHEMISTRY ORDERABLES A BN Performing Organization Address City/State/ZIP Code Phon e Number [facility] [address] [facility] [address] LABORATORY [facility] [address] [place] [address] LABORATORY (ABNORMAL) BASIC MET PROF (07/15/2014 9:03 AM [facility]) P athologist Signature SODIUM 141 134 - 143 07/15/2014 [place] mEq/L 9:44 AM [facility] LABORATORY POTASSIUM 4.9 3.4 - 5.1 07/15/2014 [place] mEq/L 9:44 AM [facility] LAB[facility] Chloride 107 99 - 110 07/15/2014 [place] mEq/L 9:44 AM [facility] LAB[facility] CO2 25 19 - 29 07/15/2014 [facility] [place] mEq/L 9:44 AM [facility] LAB[facility] BUN 21 5 - 24 07/15/2014 [facility] [place] mg/dL 9:44 AM [facility] Creatinine 0.83 0.70 - 1.20 07/15/2014 [facility] [place] mg/dL 9:44 AM [facility] LAB[facility] GFR CALC >60 07/15/2014 [facility] [place] 9:44 AM [facility] Comment: GFR Normal: >60 mL/min/1.73 m2 Calcium 9.6 8.4 - 10.5 mg/dL 07/15/2014 9:44 AM [facility] LABORATORY ANION GAP 9 3 - 15 07/15/2014 9:44 AM [facility] GLUCOSE 129 (H) 70 - 100 mg/dL 07/15/2014 9:44 AM [facility] LABOR[facility] Specimen Anatomical Collection Method Collection Time Receive d Time (Source) Location / / Volume Laterality 07/15/2014 9:03 AM 5 9:12 SPORTS JOURNALIST AM SPORTS JOURNALIST Narrative [facility] LABORATORY - 07/15/2014 9:44 AM SPORTS JOURNALIST Fasting Deirdre Bedolla MD EC CHEMISTRY ORDERABLES Performing Organization Address City/State/ZIP Code Phon e Number [facility] [address] [facility] [address] LABORATORY [facility] [address] [facility] [place] [address] LABORATORY (ABNORMAL) LIPID PROFILE (07/15/2014 9:03 AM SPORTS JOURNALIST) athologist Signature Cholesterol 133 114 - 200 07/15/2014 [facility] mg/dL 9:44 AM [facility] LABOR[facility] Comment: Total Cholesterol Reference Ranges Desirable: ? <200 ?mg/dL Borderline High: ?? 200-239 mg/dL High: ?>239 ?mg/ dL TRIGLYCERIDE 134 10 - 200 mg/dL 07/15/2014 9:44 AM [facility] LABORATORY HDL CHOLESTEROL 35 (L) 40 - 60 mg/dL 07/15/2014 9:44 A M [facility] LABORATORY LDL- CALCULATED 71 mg/dL 07/15/2014 9:44 AM [facility] LABORATORY Comment: LDL Cholesterol Reference Ranges Optimal: ?<100 ? mg/dL Near Optimal: ? 100-129 ??mg/dL Borderline High: ??130-159 ??mg/dL High: ? 160-189 ??mg/dL Very High: ?>189 ? mg/dL Specimen Anatomical Collection Method Collection Time Receive d Time (Source) Location / / Volume Laterality 07/15/2014 9:03 AM 5 9:12 SPORTS JOURNALIST AM SPORTS JOURNALIST Narrative [facility] LABORATORY - 07/15/2014 9:44 AM SPORTS JOURNALIST Fasting Deirdre Bedolla MD EC CHEMISTRY ORDERABLES A BN Performing Organization Address City/[facility]/ZIP Code Phon e Number [facility] [address] [facility] [place] [address] LABORATORY [facility] 2023 [place] [address] LABORATORY MICROALB,RANDOM (04/05/2014 11:01 AM CDT) Analysis Performed At Patho logist Time Signature Urine 1.0 mg/dL 04/05/2014 [facility] Microalbumin 11:30 AM CDT [facility] LAB[facility] URINE CREATININE 70.7 mg/dL 04/05/2014 [place] 11:30 AM CDT [facility] LAB[facility] Urine 14 0 - 29 04/05/2014 [facility] Microalbumin/Crea 11:30 AM CDT MEDICAL C LINIC tinine Ratio LABORATORY Specimen Anatomical Collection Method Collection Time Receive d Time (Source) Location / / Volume Laterality 04/05/2014 11:01 04/05/2014 AM CDT 11:17 AM CDT Deirdre Bedolla MD EC URINE ORDERABLES Performing Organization Address City/[facility]/ZIP [facility] Phon e Number [facility] [address] [place] [address] LABORATORY [facility] 2023 [place] [address] LABORATORY A1C(HGB AIC) (04/05/2014 8:15 AM CDT) P athologist Signature A1C (HGB AIC) 6.0 4.0 - 6.0 04/05/2014 [facility] % 8:52 AM CDT [facility] LAB[facility]ORY Est Average 126 mg/dL 04/05/2014 [facility] Glucose 8:52 AM CDT [facility] LAB[facility]ORY Comment: According to ADA guidelines, the estimat ed average glucose (eAG) will be calculated for all HgbA1c results. Specimen Anatomical Collection Method Collection Time Receive d Time (Source) Location / / Volume Laterality 04/05/2014 8:15 AM 4 8:21 CDT AM CDT Deirdre Bedolla MD EC CHEMISTRY ORDERABLES A BN Performing Organization Address City/State/ZIP Code Phon e Number [facility] [address] [place] [address] LABORATORY [facility] [address] [facility] [place] [address] LABORATORY documented in this encounter Visit Diagnoses Diagnosis Diabetes - Primary Type II or unspecified type diabetes cindy litus without mention of complication, not stated as uncontrolled Hypertension Unspecified essential hypertension Hyperlipidemia Other and unspecified hyperlipidemia Heart disease Heart disease, unspecified Need for prophylactic vaccination and in oculation against influenza Depression Depressive disorder, not elsewhere class ified Epidural abscess Intracranial and intraspinal abscess of unspecified site documented in this encounter Discontinued Medications Medication Sig Discontinue Reason Start Date End Date simvastatin (ZOCOR) 10 Take 1 Tab by Course of treatment 10/05/2013 04/05/2014 MG tablet mouth at bedtime. completed influenza virus vaccine Inject 0.25 mL Adjustment of dose 4 04/13/2014 quad, Age 6-35 months, into the muscle (FLUZONE PEDIATRIC) 0.25 one time for 1 ML SUSPIndications: Need dose. for prophylactic vaccination and inoculation against influenza documented as of this encounter Orders Immunization/Injection Count Last Ordered Date First O rdered Date FLU VACC, QUAD, PF 1 04/13/2014 IMMUNIZATION ADMIN - INFLUENZA 1 04/13/2014 documented in this encounter Care Teams Registration Clerk Relationship Specialty Start Date End Date Chioma PCP - General Family Medicine 06/04/11 01/03/17 Deirdre Mosher MD [address] [place] [phone] Jessica Chua RN Tick Eradicator Family Medicine 09/04/13 11/29/14 [facility] Dewye Ramey Physician Other Pain Management 09/16/13 09/20/14 [facility] [address] [place] [address] Shanice Zarco MD Physician Other Ophthalmology 10/05/[address] [place] [address] Renny Jamil S Physician Other Neurosurgery 10/05/13 09/20/14 Marshal Acosta Other Dental Dining Host 10/05/[address] [place] [address] Posey Other Audiology 10/05/13 [place], [place] documented as of this encounter
--- OUTSIDE RECORDS SUMMARY | 2022-06-07 20:58 | XMS_ITS | Encounter Summary ---
:1935 Author Organization [employer] Address [address] [address] Phone Care Team Providers Name Role Phone Deirdre Bedolla MD Primary Care Provider [phone] Jessica Chua RN Unavailable [phone] Dewey Ramey Unavailable Shanice Zarco MD Unavailable Renny Jamil Unavailable Encounter Details Date Type Department Care Team Description 10/05/2013 Scanned - Medical [facility] HIS Chioma, Reports [address] [facility] [place] [address] [phone] [place], [place] [address] (Wo rk) Social History Tobacco Use Types Packs/Day Years Used Date Smoking Tobacco: Never Smokeless Tobacco: Never Alcohol Use Standard Drinks/Week Comments No 0 (1 standard drink = 0.6 oz pure alcoho l) Sex Assigned at Date Recorded Not on file documented as of this encounter Plan of Treatment Not on filedocumented as of this encounter Goals Goal Patient Goal Associated Recent Patient-Stated? 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 Note: Formatting of [...] Diagnoses Not on filedocumented in this encounter Orders EKG Orders Without Results Count Last Ordered Date st Ordered Date EKG 1 10/05/2013 documented in this encounter Care Teams Hardboard Supervisor Relationship Specialty Start Date End Date Chioma PCP - General Family Medicine 06/04/11 01/03/17 Deirdre Mosher MD [address] [id number] Jessica Chua RN Lead Informatica Developer Family Medicine 09/04/13 11/29/14 [facility] Dewey Ramey Physician Other Pain Management 09/16/13 09/20/14 [facility] [address] [place] [address] Shanice Zarco MD Physician Other Ophthalmology 10/05/[address] [place] [address] Renny Jamil S Physician Other Neurosurgery 10/05/13 09/20/14 Marshal Acosta Other Dental Cad Librarian 10/05/13 [address] [place], [place] [address] Dr Posey Other Audiology 10/05/13 [place], [place] documented as of this encounter
--- OUTSIDE RECORDS SUMMARY | 2022-06-07 20:58 | XMS_ITS | Encounter Summary ---
:1935 Author Organization [employer] Address [address] [address] Phone Care Team Providers Name Role Phone Deirdre Bedolla MD Primary Care Provider [phone] Jessica Chua RN Unavailable [phone] Dewey Ramey Unavailable Shanice Zarco MD Unavailable Renny Jamil Unavailable Reason for Visit Reason Comments Refill Request DULoxetine (CYMBALTA) 60 MG capsule Encounter Details Date Type Department Care Team Description 01/11/2014 Refill [facility] Riaz Bedolla efill Request FAMILY MEDICINE Deirdre Mosher MD (DULoxetine (CYMBALTA) 2023 [facility] eet [address] 60 MG capsule) [place] [address] 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 Note: Formatting of [...] on filedocumented in this encounter Care Teams Neuroscience Director Na Relationship Specialty Start Date End Date Chioma PCP - General Family Medicine 06/04/11 01/03/17 Deirdre Mosher MD [address] [phone] Jessica Chua RN Assurance Specialist Family Medicine 09/04/13 11/29/14 Марина RN Dewey Ramey Physician Other Pain Management 09/16/13 09/20/14 [facility] [address] [address] [place] [address] Shanice Zarco MD Physician Other Ophthalmology 10/05/[address] [place] [address] Renny Jamil S Physician Other Neurosurgery 10/05/13 09/20/14 Marshal Acosta Other Dental Child Care Centre Director 10/05/13 [address] [place], [place] [phone] Dr Posey Other Audiology 10/05/13 [place], [place] documented as of this encounter
--- OUTSIDE RECORDS SUMMARY | 2022-06-07 20:58 | XMS_ITS | Encounter Summary ---
:1935 Author Organization [employer] Address [address] [address] Phone Care Team Providers Name Role Phone Deirdre Bedolla MD Primary Care Provider [phone] Jessica Chua RN Unavailable [phone] Dewey Ramey Unavailable Shanice Zarco MD Unavailable Renny Jamil Unavailable Reason for Visit Reason Comments Refill Request DULoxetine (CYMBALTA) 60 MG capsule Encounter Details Date Type Department Care Team Description 02/11/2014 Refill [facility] Riaz Bedolla efill Request FAMILY MEDICINE Deirdre Mosher MD (DULoxetine (CYMBALTA) 2023 [facility] eet [address] 60 MG capsule) [place] [address] [facility] [place] [address] (Wo rk) Social History Tobacco Use Types [...] 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 Note: Formatting of [...] on filedocumented in this encounter Care Teams Ob Scrub Tech Relationship Specialty Start Date End Date Chioma PCP - General Family Medicine 06/04/11 01/03/17 Deirdre Mosher MD [address] [phone] Jessica Chua RN Office Manager Receptionist Family Medicine 09/04/13 11/29/14 Марина RN Dewey Ramey Physician Other Pain Management 09/16/13 09/20/14 [facility] [address] [address] [place] [address] Shanice Zarco MD Physician Other Ophthalmology 10/05/[address] [place] [phone] Renny Jamil S Physician Other Neurosurgery 10/05/13 09/20/14 Marshal Acosta Other Dental Roll Forming Supervisor 10/05/13 [address] [place], [place] [phone] Dr Posey Other Audiology 10/05/13 [place], [place] documented as of this encounter
--- OUTSIDE RECORDS SUMMARY | 2022-06-07 20:58 | XMS_ITS | Encounter Summary ---
:1935 Author Organization [employer] Address [address] [address] Phone Care Team Providers Name Role Phone Deirdre Bedolla MD Primary Care Provider [phone] Jessica Chua RN Unavailable [phone] Dewey Ramey Unavailable Shanice Zarco MD Unavailable Renny Jamil Unavailable Reason for Visit Reason Onset Date Comments Care Coordination Program 04/09/2014 Post-visit call 04/09/2014 Dr Bedolla, Encounter Details Date Type Department Care Team Description 04/09/2014 Telephone [facility] Toma, Care Coordination FAMILY MEDICINE Jessica Parish RN Program; Post-visit call 2023 [facility] [phone] ([place] [address] (Work) 04/05) [phone] Social History Tobacco Use Types Packs/Day Years Used Date Smoking Tobacco: Never Smokeless Tobacco: Never Alcohol Use Standard Drinks/Week Comments No 0 (1 standard drink = 0.6 oz pure alcoho l) Sex Assigned at Date Recorded Not on file documented as of this encounter Miscellaneous Notes Telephone Encounter - Jessica Chua - 04/09/2014 11:43 AM CDT Subject: Care Coordination Post visit Reviewed notes from office visit with Deirdre Bedolla MD on 04/05/14. Changes not made to Care Plan. Call placed to pt's (Bill was not home) to discuss and review: 1. Stopped simvastatin, start Lipitor - Mary Ann said this was done. 2. Injection for back and hip were rescheduled due to provider's request. Mary Ann said they don't have a new date yet. 3. No other medications or changes in plans of care, encouraged by PCP to lose weight. Pt's did verbalize understanding of above information Planned follow up: Deirdre Bedolla MD in 3 months with labs prior. Not scheduled at this time. RN Farm Equipment Technician - follow up in 1 month by phone. Mary Ann was in agreement with this plan. documented in this encounter Plan of Treatment Not on filedocumented as of this encounter Goals Goal Patient Goal Associated Recent Patient-Stated? Author Type Problems Progress I want to work Lifestyle Epidural No Wistrom-T he towards getting abscess sing, Lorena a my back pain at E, HEEL SORTER, a lower and STAFFING SPECIALIST more tolerable level. Note: Formatting of [...] on filedocumented in this encounter Care Teams Channeling Machine Runner Relationship Specialty Start Date End Date YESENIA Bedolla - General Family Medicine 06/04/11 01/03/17 Deirdre Mosher MD [address] [place] [address] Jessica Chua RN Farm Equipment Technician Family Medicine 09/04/13 11/29/14 FIORDALIZA Parish Dewye Ramey Physician Other Pain Management 09/16/13 09/20/14 [facility] [address] [place] [address] [address] [place] [address] Shanice Zarco MD Physician Other Ophthalmology 10/05/[address] [place] [address] Renny Jamil S Physician Other Neurosurgery 10/05/13 09/20/14 Marshal Acosta Other Dental Fiber Optic Technician 10/05/[address] [place] [address] Posey Other Audiology 10/05/13 [place], [place] documented as of this encounter
--- OUTSIDE RECORDS SUMMARY | 2022-06-07 20:58 | XMS_ITS | Encounter Summary ---
:1935 Author Organization [employer] Address [address] [address] Phone Care Team Providers Name Role Phone Deirdre Bedolla MD Primary Care Provider [phone] Jessica Chua RN Unavailable [phone] Dewey Ramey Unavailable Shanice Zarco MD Unavailable Renny Jamil Unavailable Reason for Visit Reason Onset Date Comments [facility] Phone Outreach 02/19/2014 update Care Coordination Program 02/19/2014 update Encounter Details Date Type Department Care Team Description 02/19/2014 Telephone [facility] Phone Outreach FAMILY MEDICINE Jessica Parish RN (update); Care 2023 [facility] [phone] Coordination Program [place] [address] (Work) (update) [phone] Social History Tobacco Use Types Packs/Day Years Used Date Smoking Tobacco: Never Smokeless Tobacco: Never Alcohol Use Standard Drinks/Week Comments No 0 (1 standard drink = 0.6 oz pure alcoho l) Sex Assigned at Date Recorded Not on file documented as of this encounter Miscellaneous Notes Telephone Encounter - Jessica Chua - 02/19/2014 3:22 PM CDT Called Joe to check in and see how he's doing. He was at physical therapy and doing errands so spoke with his , Mary Ann. She said that Joe was been managing, he is still taking the Celebrex prescribed by Dr. Murphy, and the Cymbalta prescribed by Dr Cristobal. Mary Ann thinks the Cymbalta has made himseem a bit calmer, but unsure if it has helped his pain. He has an appointment with a medtronic rep in March to follow up on his stimulator and see if adjustments would help the pain he has. Joe also has an appointment with Dr Olivares with [facility] down in [place] on 03/20, as well. Mary Ann said that Joe has seen him in the past, but not recent past. We're just trying to see if there are any other opt ions. She said things are 'on hold' with the pain pump she mentioned our last conversation. Joe has also been doing acupuncture with a provider in the [facility] area, but she is unsure if it has made a difference. Joe sees Dr Cristobal at the end of March. Will plan to call before then for a pre-visit call. documented in this encounter Plan of Treatment Not on filedocumented as of this encounter Goals Goal Patient Goal Associated Recent Patient-Stated? Author Type Problems Progress I want to work Lifestyle Epidural No Wistrom-T he towards getting abscess sing, Lorena a my back pain at E, MANAGER MAC, a lower and TRIAL COURT JUDGE more tolerable level. Note: Formatting of this [...] on filedocumented in this encounter Care Teams Neurologist Relationship Specialty Start Date End Date YESENIA Bedolla - General Family Medicine 06/04/11 01/03/17 Deirdre Mosher MD [address] [address] Jessica Chua RN Post Adoption Coordinator Family Medicine 09/04/13 11/29/14 FIORDALIZA Parish Dewey Ramey Physician Other Pain Management 09/16/13 09/20/14 [facility] [address] [facility] [address] [place] [address] Shanice Zarco MD Physician Other Ophthalmology 10/05/[address] [place] [address] Renny Jamil Physician Other Neurosurgery 10/05/13 09/20/14 Marshal Acosta Other Dental Spinner Frame 10/05/13 [address] [place], [place] [id number] Dr Posey Other Audiology 10/05/13 [place], [place] documented as of this encounter
--- OUTSIDE RECORDS SUMMARY | 2022-06-07 20:58 | XMS_ITS | Encounter Summary ---
:1935 Author Organization [employer] Address [address] [address] Phone Care Team Providers Name Role Phone Deirdre Bedolla MD Primary Care Provider [phone] Jessica Chua RN Unavailable [phone] Dewey Ramey Unavailable Shanice Zarco MD Unavailable Renny Jamil Unavailable Reason for Visit Reason Onset Date Comments Care Coordination Program 12/09/2013 Program follow up Encounter Details Date Type Department Care Team Description 12/09/2013 Telephone [facility] Toma Care Coordination FAMILY MEDICINE Jessica Parish RN Program (Program follow 2023 [facility] [phone] up) [place] [address] (Work) [phone] Social History Tobacco Use Types Packs/Day Years Used Date Smoking Tobacco: Never Smokeless Tobacco: Never Alcohol Use Standard Drinks/Week Comments No 0 (1 standard drink = 0.6 oz pure alcoho l) Sex Assigned at Date Recorded Not on file documented as of this encounter Miscellaneous Notes Telephone Encounter - Jessica Chua - 12/25/2013 10:21 AM CDT Joe Reese[facility] , called. Within the past few weeks, he went and saw the surgeon's PA,Rik Meyer, with [facility], for his pain (had hip replacement by Dr Ray). Joe had been receiving physical therapy and the therapist contacted Mr. Meyer with additional concerns, and a bone scan was ordered. Joe had that done at [facility], but hasn't heard anything on the results. Chiropractic Neurologist called and spoke with Mary, their Senior Assistant Manager, who said they had not yet received the radiology report. She asked it be faxed to her at and Dr Ray would review on Saturday when he is back in the clinic. Additionally, Mary Ann had some questions for Dr Ray and had actually mailed him a letter but had not had a response yet. Chiropractic Neurologist explained to Mary that Mary Ann and Joe would appreciate a phone call back and Mary said she would relay that, as well. Will ask medical records to fax report today. See attached letter. Additionally, asked how Joe is doing since he started on the Cymbalta at his last appointment. Dr Cristobal said to give it about a month, and he doesn't seem as tense, he does seem more relaxed. His spinal cord stimulator is really helping, so that's good. Reviewed that Dr Cristobal had wanted Joe to follow up in 4-6 weeks, so we will try to schedule that soon and I will call back with an appointment date/time. Telephone Encounter - Jessica Chua - 12/09/2013 12:20 PM CDT Called Joe again for Care Coordination follow up. Left message requesting return call. documented in this encounter Plan of Treatment Not on filedocumented as of this encounter Goals Goal Patient Goal Associated Recent Patient-Stated? Author Type Problems Progress I want to work Lifestyle Epidural No Wistrom-T he towards getting abscess sing, Lorena a my back pain at E, RETAINING ROOM CUTTER, a lower and SALT LIFTER more tolerable level. Note: Formatting of this [...] on filedocumented in this encounter Care Teams Filter Press Pumper Relationship Specialty Start Date End Date Chioma PCP - General Family Medicine 06/04/11 01/03/17 Deirdre Mosher MD [address] [id number] Jessica Chua RN Senior Assistant Manager Family Medicine 09/04/13 11/29/14 Марина RN Dewey Ramey Physician Other Pain Management 09/16/13 09/20/14 [facility] [address] [facility] [address] [place] [address] Shanice Zarco MD Physician Other Ophthalmology 10/05/13 [address] [place] [address] Renny Jamil S Physician Other Neurosurgery 10/05/13 09/20/14 Marshal Acosta Other Dental Windows Server Engineer 10/05/13 [address] [place], [place] [address] Dr Posey Other Audiology 10/05/13 [place], [place] documented as of this encounter
--- OUTSIDE RECORDS SUMMARY | 2022-06-07 20:58 | XMS_ITS | Encounter Summary ---
:1935 Author Organization [email or web address] Address [address] [address] Phone Care Team Providers Name Role Phone Deirdre Bedolla MD Primary Care Provider [phone] Jessica Chua RN Unavailable [phone] Dewey Ramey Unavailable Shancie Zarco MD Unavailable Renny Jamil Unavailable Reason for Visit Reason Onset Date Comments Refill Request 12/15/2013 flomax Encounter Details Date Type Department Care Team Description 12/15/[address] [facility] Issa R N Refill Request (flomax) FAMILY MEDICINE [address] [place] [address] Social History Tobacco Use Types [...] 1 Cap by mouth 90 Cap 1 04/201412/30/2014 MG 24 hour one time a day. capsuleIndications: BPH Capsules should be (benign prostatic swallowed whole; do hyperplasia) not crush, chew, or open documented in this encounter Miscellaneous Notes Telephone Encounter - Louise Petersen - 12/15/2013 4:54 PM CDT Received fax from [facility] with a request for 90 day refills for medication Flomax. Refills provided per protocol. documented in this encounter Plan of Treatment Not on filedocumented as of this encounter Goals Goal Patient Goal Associated Recent Patient-Stated? Author Type Problems Progress I want to work Lifestyle Epidural No Wistrom-T he towards getting abscess sing, Lorena a my back pain at E, DINING HOST, a lower and CERTIFIED NEURODIAGNOSTIC TECHNOLOGIST more tolerable level. Note: Formatting of [...] as of this encounter Visit Diagnoses Diagnosis BPH (benign prostatic hyperplasia) - [facility] Unspecified hyperplasia of prostate with out urinary obstruction and other lower urinary tract symptoms (LUTS) documented in this encounter Discontinued Medications Medication Sig Discontinue Reason Start Date End Date tamsulosin (FLOMAX) 0.4 Take 1 Cap by mouth 06/18/2013 12/15/2013 MG 24 hour one time a day. capsuleIndications: BPH Capsules should be (benign prostatic swallowed whole; do hyperplasia) not crush, chew, or open documented as of this encounter Care Teams Engineering Technical Specialist Relationship Specialty Start Date End Date Chioma PCP - General Family Medicine 06/04/11 01/03/17 Deirdre Mosher MD [address] [id number] Jessica Chua RN Director Digital Catalogue Family Medicine 09/04/13 11/29/14 FIORDALIZA Parish Dewey Ramey Physician Other Pain Management 09/16/13 09/20/14 [facility] [address] [place] [address] Shanice Zarco MD Physician Other Ophthalmology 10/05/[address] [place] [address] Renny Jamil S Physician Other Neurosurgery 10/05/13 09/20/14 Marshal Acosta Other Dental Undercar Specialist 10/05/[address] [place] [address] [address] Posey Other Audiology 10/05/13 [place], [place] documented as of this encounter
--- OUTSIDE RECORDS SUMMARY | 2022-06-07 20:58 | XMS_ITS | Encounter Summary ---
:1935 Author Organization [employer] Address [address] [address] Phone Care Team Providers Name Role Phone Deirdre Bedolla MD Primary Care Provider [phone] Jessica Chua RN Unavailable [phone] Dewey Ramey Unavailable Shanice Zarco MD Unavailable Renny Jamil Unavailable Reason for Visit Reason Onset Date Comments Care Coordination Program 11/18/2013 Post-visit (Dr Bedolla, 11/17) Encounter Details Date Type Department Care Team Description 11/18/2013 Telephone [facility] Toma Care Coordination FAMILY MEDICINE Jessica Parish RN Program (Post-visit ( 2023 [facility] [phone] Chioma, 11/17)) [place] [address] (Work) [phone] Social History Tobacco Use Types Packs/Day Years Used Date Smoking Tobacco: Never Smokeless Tobacco: Never Alcohol Use Standard Drinks/Week Comments No 0 (1 standard drink = 0.6 oz pure alcoho l) Sex Assigned at Date Recorded Not on file documented as of this encounter Miscellaneous Notes Telephone Encounter - Jessica Chua - 11/27/2013 2:25 PM CDT Tried calling Bill again for follow up. Left message on machine. Telephone Encounter - Jessica Chua - 11/18/2013 3:34 PM CDT Subject: Care Coordination Post visit Reviewed notes from office visit with Deirdre Bedolla MD on 11/17/13. - unable to review note as it is not yet transcribed. Changes not made to Care Plan. Call placed to pt to discuss and review: 1. Started Cymbalta, once every morning Pt did/did not verbalize understanding of: unable to assess due to not being able to reach Bill. Planned follow up: [facility], Bill will have a follow up with them by theend of the month. 11/18/2013 3:38 PM - I tried calling but left a message. Asked they call Alysia or PCP with any questions or concerns over the next few days, otherwise underwriter mortgage loan would be in touch next week. documented in this encounter Plan of Treatment Not on filedocumented as of this encounter Goals Goal Patient Goal Associated Recent Patient-Stated? Author Type Problems Progress I want to work Lifestyle Epidural No Wistrom-T he towards getting abscess sing, Lorena a my back pain at E, CAD DRAFTER, a lower and DEDENTER more tolerable level. Note: Formatting of this [...] Primary documented in this encounter Care Teams Lockstitch Coat Joiner Relationship Specialty Start Date End Date YESENIA Bedolla - General Family Medicine 06/04/11 01/03/17 Deirdre Mosher MD [address] [address] Jessica Chua RN Full Decator Operator Family Medicine 09/04/13 11/29/14 Марина RN Dewey Ramey Physician Other Pain Management 09/16/13 09/20/14 [facility] [address] [facility] [address] [place] [address] Shanice Zarco MD Physician Other Ophthalmology 10/05/13 [address] [place] [address] Renny Jamil Physician Other Neurosurgery 10/05/13 09/20/14 Marshal Acosta Other Dental Accountant Certified Public 10/05/13 [address] [place] [address] Dr Posey Other Audiology 10/05/13 [place], [place] documented as of this encounter
--- OUTSIDE RECORDS SUMMARY | 2022-06-07 20:58 | XMS_ITS | Encounter Summary ---
:1935 Author Organization [employer] Address [address] [address] Phone Care Team Providers Name Role Phone Deirdre Bedolla MD Primary Care Provider [phone] Jessica Chua RN Unavailable [phone] Dewey Ramey Unavailable Shanice Zarco MD Unavailable Renny Jamil Unavailable Reason for Visit Reason Onset Date Comments Medication Question 04/12/2014 Vesicare Encounter Details Date Type Department Care Team Description 04/12/2014 Telephone [facility] Louise Petersen, Medication Question [address] RN (Vesicare) [place], [place] [address] Social History Tobacco Use Types Packs/Day Years Used Date Smoking Tobacco: Never Smokeless Tobacco: Never Alcohol Use Standard Drinks/Week Comments No 0 (1 standard drink = 0.6 oz pure alcoho l) Sex Assigned at Date Recorded Not on file documented as of this encounter Miscellaneous Notes Telephone Encounter - Louise Petersen - 04/12/2014 3:[address] Ruiz's office visit note 04/07/2014. Spoke with Mary Ann. She was just wanting to clarify that the patient was to take both the finasteride and the vesicare. Reassured that it was okay to do this. Encouraged to return call if any further questions or concerns. Receptive to information. Telephone Encounter - Louise Petersen - 04/12/2014 11:09 AM CDT Left message for patient's , Mary Ann, to return call. Telephone Encounter - Louise Petersen - 04/12/2014 10:12 AM CDT ----- Message from Gisela Houston sent at 04/12/2014 9:16 AM CDT ----- Qualey Date: 04/12/2014 Time: 9:16 AM May we leave a message: yes Patient's Date of : 1935 Person Calling: Mary Ann/ Phone Number: Home phone [phone] (home) Reason for call:Question about medications. Pharmacy: Allergies: -- Penicillins documented in this encounter Plan of Treatment Not on filedocumented as of this encounter Goals Goal Patient Goal Associated Recent Patient-Stated? Author Type Problems Progress I want to work Lifestyle Epidural No Wistrom-T he towards getting abscess sing, Lorena a my back pain at E, LAYBOY OPERATOR, a lower and HOME DEMONSTRATOR more tolerable level. Note: Formatting of this [...] on filedocumented in this encounter Care Teams Junior Underwriter Relationship Specialty Start Date End Date YESENIA Bedolla - General Family Medicine 06/04/11 01/03/17 Deirdre Mosher MD [address] [address] Wistrom-Thesing, Jessica RN Detector Car Operator Family Medicine 09/04/13 11/29/14 Марина RN Dewey Ramey Physician Other Pain Management 09/16/13 09/20/14 [facility] [address] [facility] [address] [place] [address] Shanice Zarco MD Physician Other Ophthalmology 10/05/13 [address] [place] [address] Renny Jamil Physician Other Neurosurgery 10/05/13 09/20/14 Marshal Acosta Other Dental Paper Cup Handle Machine Operator 10/05/[address] [place] [id number] Posey Other Audiology 10/05/13 [place], [place] documented as of this encounter
--- OUTSIDE RECORDS SUMMARY | 2022-06-07 20:58 | XMS_ITS | Encounter Summary ---
:1935 Author Organization [facility] [employer] Address [address] [address] Phone Care Team Providers Name Role Phone Deirdre Bedolla MD Primary Care Provider [phone] Jessica Chua RN Unavailable [phone] Dewey Ramey Unavailable Shanice Zarco MD Unavailable Renny Jamil Unavailable Reason for Visit Reason Onset Date Comments Refill Request 04/09/2014 Cymbalta Encounter Details Date Type Department Care Team Description 04/09/2014 Refill [facility] Marixa Espinosa R efill Request FAMILY MEDICINE SUBASSEMBLER (Cymbalta) [address] [place] [address] Social History Tobacco Use Types [...] (CYMBALTA) 60 Take 1 Cap by mouth 90 Cap 0 07/07/2014 MG capsule one time a day. Do not crush. documented in this encounter Miscellaneous Notes Telephone Encounter - Jessica Chua - 04/09/2014 11:37 AM CDT Received call from Bill's Mary Ann verifying Cymbalta refill request was received. Reviewed Refill Protocol and able to refill. Only gave 3 month supply due to not having a PHQ-9 on file. Joe wasn't home at the time of return call so plan for life insurance underwriter to mail PHQ-9 questionnaire with return envelope. Did see Deirdre Bedolla MD last week and his mood was addressed. documented in this encounter Plan of Treatment Not on filedocumented as of this encounter Goals Goal Patient Goal Associated Recent Patient-Stated? Author Type Problems Progress I want to work Lifestyle Epidural No Edward-Tootie he towards getting abscess sing, Lorena a my back pain at E, CYTOLOGY TECHNOLOGIST, a lower and DIRECTOR INFORMATION SECURITY more tolerable level. Note: Formatting of this [...] DULoxetine (CYMBALTA) 60 Take 1 capsule by 02/16/2014 04/09/2014 MG capsule mouth one time a day. Do not crush. documented as of this encounter Care Teams Cena Relationship Specialty Start Date End Date YESENIA Bedolla - General Family Medicine 06/04/11 01/03/17 Deirdre Mosher MD [address] [address] Jessica Chua RN Grove Superintendent Family Medicine 09/04/13 11/29/14 FIORDALIZA Parish Dewey Ramey Physician Other Pain Management 09/16/13 09/20/14 [facility] [address] [place] [address] [address] [place] [address] Shanice Zarco MD Physician Other Ophthalmology 10/05/[address] [place] [address] Renny Jamil S Physician Other Neurosurgery 10/05/13 09/20/14 Marshal Acosta Other Dental Geochemical Manager 10/05/[address] [place] [address] [address] Posey Other Audiology 10/05/13 [place], [place] documented as of this encounter
--- OUTSIDE RECORDS SUMMARY | 2022-06-07 20:58 | XMS_ITS | Encounter Summary ---
:1935 Author Organization [employer] Address [address] [address] Phone Care Team Providers Name Role Phone Deirdre Bedolla MD Primary Care Provider [phone] Jessica Chua RN Unavailable [phone] Dewey Ramey Unavailable Shanice Zarco MD Unavailable Renny Jamil Unavailable Reason for Visit Reason Onset Date Comments Refill Request 02/15/2014 Ascorbic Acid (VITAM IN C) 500 MG CAPS Encounter Details Date Type Department Care Team Description 02/15/2014 Refill [facility] Ruben Serenity Riaz, Refill Request (Ascorbic FAMILY MEDICINE BASEBALL PITCHER Acid (VITAMIN C) 500 MG 20[address] [facility] eet CAPS) [place], [place] [id number] Social History Tobacco Use Types Packs/Day Years Used Date Smoking Tobacco: Never Smokeless Tobacco: Never Alcohol Use Standard Drinks/Week Comments No 0 (1 standard drink = 0.6 oz pure alcoho l) Sex Assigned at Date Recorded Not on file documented as of this encounter Ordered Prescriptions Prescription Sig Dispensed Refills Start Date End Date Ascorbic Acid (VITAMIN C) Take 500 mg by 90 capsule 2 201311/06/2014 500 MG CAPS mouth one time a day. documented in this encounter Miscellaneous Notes Telephone Encounter - Gabriela Jones RN,AE-C - 02/15/2014 11:45 AM CDT Patient's medication list, allergies, last labs, and last office visit pertaining to this specific medication have been reviewed during this refill encounter. Medication refilled per protocol. documented in this encounter Plan of Treatment Not on filedocumented as of this encounter Goals Goal Patient Goal Associated Recent Patient-Stated? Author Type Problems Progress I want to work Lifestyle Epidural No Wistrom-T he towards getting abscess sing, Lorena a my back pain at E, SPECIAL EDUCATION SUPERVISOR, a lower and MYSQL DATABASE ADMINISTRATOR more tolerable level. Note: Formatting of [...] Acid (VITAMIN C) Take 500 mg by 12/10/2012 02/15/2014 500 MG CAPS mouth one time a day. documented as of this encounter Care Teams Ammunition Storekeeper Relationship Specialty Start Date End Date YESENIA Bedolla - General Family Medicine 06/04/11 01/03/17 Deirdre Mosher MD [address] [address] Jessica Chua RN Therapeutic Sales Specialist Family Medicine 09/04/13 11/29/14 FIORDALIZA Parish Dewey Ramey Physician Other Pain Management 09/16/13 09/20/14 [facility] [address] [place] [address] Shanice Zarco MD Physician Other Ophthalmology 10/05/[address] [place] [phone] eRnny Jamil Physician Other Neurosurgery 10/05/13 09/20/14 Marshal Acosta Other Dental Frog Shaker 10/05/[address] [place] [address] Posey Other Audiology 10/05/13 [place], [place] documented as of this encounter
--- OUTSIDE RECORDS SUMMARY | 2022-06-07 20:58 | XMS_ITS | Encounter Summary ---
:1935 Author Organization [employer] Address [address] [place] [address] [address] Phone Care Team Providers Name Role Phone Deirdre Bedolla MD Primary Care Provider [phone] Jessica Chua RN Unavailable [phone] Dewey Ramey Unavailable Shanice Zarco MD Unavailable Renny Jamil Unavailable Reason for Visit Reason Onset Date Comments Care Coordination Program 04/02/2014 Pre-visit call 04/02/2014 Dr Bedolla, Encounter Details Date Type Department Care Team Description 04/02/2014 Telephone [facility] Toma, Care Coordination FAMILY MEDICINE Jessica Parish, RN Program; Pre-visit call 2023 [facility] [phone] (Dr Bedolla, [place] [address] (Work) 04/05/14) [phone] Social History Tobacco Use Types Packs/Day Years Used Date Smoking Tobacco: Never Smokeless Tobacco: Never Alcohol Use Standard Drinks/Week Comments No 0 (1 standard drink = 0.6 oz pure alcoho l) Sex Assigned at Date Recorded Not on file documented as of this encounter Miscellaneous Notes Telephone Encounter - Jessica Chua - 04/02/2014 2:20 PM CDT Subject: Care Coordination Pre visit Call Pt has apt with Deirdre Bedolla MD on Saturday04/05/14 for 3 month follow up. Allergies Reviewed - no Medications Reviewed - yes, with Mary Ann (she sets up for Joe). Epic list is up to date. Was on Myrbetriq for 1 month (sample from Dr Ruiz) but that is done, Joe sees him in follow up in a week. Pt has updated Care Plan - yes Any visits with a specialists or other physicians since your last visit - yes Dr Agustín Murphy, [facility], 01/05/14 (note is scanned under media tab) For back pain, recommended PT and starting Celebrex. Dr Ruiz, 03/05/14 PLAN: We will treat with beta agonist Myrbetriq and make arrangements for [facility] and cystoscopy as an outpatient. A 40-minute office appointment, over 50% spent in discussion and coordination of care. Dr Quintero, 04/01/14, [facility] in [place] Mary Ann said Joe had an MRI done at [facility] in [facility] and he saw Dr Quintero in for follow up. Mary Ann said he didn't recommend surgery, but thought a cortisone injection in his back may help, he thinks a nerve may be pinched, causing Joe so much hip pain. Injection is scheduled for 04/12/14. Any changes in your health or behavior - yes I was able to speak with Mary Ann, Joe was outside mowing the lawn. Mary Ann said that she isn't going to come with to Joe's appointment because she wants to give him the opportunity to see Dr Cristobal by himself and be able to talk freely. Mary Ann said Joe has had a few episodes where he was tearful and appeared melancholy. She said he was initially interested in seeing a therapist (after last appointment) but when it was discussed again he had changed his mind. (Cymbalta was increased at last apt). New medication from Dr Ruiz, zarabetriq, hasn't made any difference. Joe sees him for follow up next week. Balance still seems to be off, has had a few falls if Joe turns around too quickly. Objectives/Goals for the visit. What are the 2-3 questions or issues? 1. Follow up, diabetes. 2. Back injection scheduled for 04-12-14. Mary Ann said Bill was recommended to stop Plavix for 7 daysprior and take aspirin 325mg one time a day on those days instead. documented in this encounter Plan of Treatment Not on filedocumented as of this encounter Goals Goal Patient Goal Associated Recent Patient-Stated? 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 Note: Formatting of [...] Sig Discontinue Reason Start Date End Date oxybutynin SR (DITROPAN Take 1 Tab by Changed to an alternate 03/1104/02/2014 XL) 15 MG 24 hour mouth one time a therapy tabletIndications: day. Do not Overactive bladder crush. documented as of this encounter Care Teams Crm Solution Architect Relationship Specialty Start Date End Date YESENIA Bedolla - General Family Medicine 06/04/11 01/03/17 Deirdre Mosher MD [address] [address] Jessica Chua RN Sales Trainee Family Medicine 09/04/13 11/29/14 FIORDALIZA Parish Dewey Ramey Physician Other Pain Management 09/16/13 09/20/14 [facility] [address] [place] [address] Shanice Zarco MD Physician Other Ophthalmology 10/05/[address] [place] [address] Renny Jamil S Physician Other Neurosurgery 10/05/13 09/20/14 Marshal Acosta Other Dental Point Of Care Specialist 10/05/[address] [place] [id number] Posey Other Audiology 10/05/13 [place], [place] documented as of this encounter
--- OUTSIDE RECORDS SUMMARY | 2022-06-07 20:58 | XMS_ITS | Encounter Summary ---
:1935 Author Organization [employer] [facility] Address [address] [address] Phone Care Team Providers Name Role Phone Deirdre Bedolla MD Primary Care Provider [phone] Jessica Chua RN Unavailable [phone] Dewey Rmaey Unavailable Shanice Zarco MD Unavailable Renny Jamil Unavailable Reason for Visit Reason Onset Date Comments Refill Request 11/05/2013 Encounter Details Date Type Department Care Team Description 11/05/2013 Telephone [facility] Ana Meyer RN Refill Request CARE [id number] [place] [address] Social History Tobacco Use Types Packs/Day Years Used Date Smoking Tobacco: Never Smokeless Tobacco: Never Alcohol Use Standard Drinks/Week Comments No 0 (1 standard drink = 0.6 oz pure alcoho l) Sex Assigned at Date Recorded Not on file documented as of this encounter Miscellaneous Notes Telephone Encounter - Eveline Meyer RN - 11/05/2013 1:07 PM CDT Verbal order given to pharmacy per refill protocol. Telephone Encounter - Eveline Meyer RN - 11/05/2013 12:45 PM CDT Message copied by EVELINE MEYER on SatNovember 05, 2013 12:45 PM ------ Message from: LORENA TANG Created: SatNovember 05, 2013 12:40 PM Contact: Lizet- Phamacist [phone] Susu ~ Patient was advised that provider is out ~ Pt is in [place] and has run out of atenolol (TENORMIN) 25 MG tablet. Lizet is wondering if she can get an order to fill this for the Pt. Please call at number above to discuss. Thank you, Lorena Tang Call Center Ext. [phone] ------ documented in this encounter Plan of Treatment Not on filedocumented as of this encounter Goals Goal Patient Goal Associated Recent Patient-Stated? 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 Note: Formatting of [...] Start Date End Date atenolol (TENORMIN) 25 TAKE ONE TABLET BY 04/23/2013 11/05/2013 MG tablet MOUTH ONE TIME DAILY documented as of this encounter Historical Medications This list may reflect changes made after this encounter. Medication Sig Dispensed Refills Start Date End Date atenolol (TENORMIN) 25 MG Take 1 Tab by mouth 90 Tab 0 0 11/05/2013 05/25/2016 tablet one time a day. added in this encounter Care Teams Sales And Catering Coordinator Relationship Specialty Start Date End Date Chioma, PCP - General Family Medicine 06/04/11 01/03/17 Deirdre Mosher MD [facility] [address] [address] Jessica Chua RN Guyline Operator Family Medicine 09/04/13 11/29/14 Марина RN Dewey Ramey Physician Other Pain Management 09/16/13 09/20/14 [facility] [address] [facility] [address] [place] [address] Shanice Zarco MD Physician Other Ophthalmology 10/05/13 [address] [place] [address] Renny Jamil Physician Other Neurosurgery 10/05/13 09/20/14 Marshal Acosta Other Dental English As A Second Language Teacher 10/05/[address] [place] [address] Posey Other Audiology 10/05/13 [place], [place] documented as of this encounter
--- OUTSIDE RECORDS SUMMARY | 2022-06-07 20:58 | XMS_ITS | Encounter Summary ---
:1935 Author Organization [employer] Address [address] [address] Phone Care Team Providers Name Role Phone Deirdre Bedolla MD Primary Care Provider [phone] Jessica Chua RN Unavailable [phone] Dewey Ramey Unavailable Shanice Zarco MD Unavailable Renny Jamil Unavailable Reason for Visit Reason Onset Date Comments Refill Request 02/16/2014 Encounter Details Date Type Department Care Team Description 02/16/2014 Refill [facility] Serenity Miranda LPN Refill Request FAMILY MEDICINE [address] 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 Note: Formatting of this [...] on filedocumented in this encounter Care Teams Labor Service Representative Relationship Specialty Start Date End Date Chioma PCP - General Family Medicine 06/04/11 01/03/17 Deirdre Mosher MD [address] [id number] Jessica Chua RN Public Policy Coordinator Family Medicine 09/04/13 11/29/14 Марина RN Dewey Ramey Physician Other Pain Management 09/16/13 09/20/14 [facility] [address] [facility] [address] [place] [address] Shanice Zarco MD Physician Other Ophthalmology 10/05/13 [address] [place] [address] Renny Jamil S Physician Other Neurosurgery 10/05/13 09/20/14 Marshal Acosta Other Dental Laundry Agent 10/05/13 [address] [place], [place] [address] Dr Posey Other Audiology 10/05/13 [place], [place] documented as of this encounter
--- OUTSIDE RECORDS SUMMARY | 2022-06-07 20:59 | XMS_ITS | Encounter Summary ---
:1935 Author Organization [employer] Address [address] [address] Phone Care Team Providers Name Role Phone Deirdre Bedolla MD Primary Care Provider [phone] Reason for Visit Reason Onset Date Comments Medication Question 05/21/2013 pt requesting script for pain meds Encounter Details Date Type Department Care Team Description 05/21/2013 Telephone [facility] Domitila Jones Medication Question (pt FAMILY MEDICINE F, RN requesting script for 20[address] [facility] pain meds) [place], [place] [id number] Social History Tobacco Use Types Packs/Day Years Used Date Smoking Tobacco: Never Smokeless Tobacco: Never Alcohol Use Standard Drinks/Week Comments No 0 (1 standard drink = 0.6 oz pure alcoho l) Sex Assigned at Date Recorded Not on file documented as of this encounter Miscellaneous Notes Telephone Encounter - Domitila Jones RN - 05/21/2013 12:00 PM CST Pt's came into clinic to speak to nurse concerning script for pain meds she couldn't find scripts at home lost them. Nurse spoke with home economist consumer service provider and explained the situation concerning pain med scripts. PCP gone until Saturday. Provider home economist consumer service Chelsea refilled tylenol#3 and codeine as per 05/11 script due to lost script. Pt's will bring scripts if see finds them in the future. Pt's Gisela walked to [facility]pharmacy to fill scripts will call back if further assistance is needed. Domitila Jones RN Support Nurse / Triage CIATE PROFESSOR OF RADIOLOGY Telephone Encounter - Domitila Jones RN - 05/21/2013 10:27 AM CST Pharmacist Macho from [employer] calling requesting hard copy for tylenol #3 and codeine. Nurse will talkwith PCP nurse and call pharmacist back. Nurse spoke with PCP nurse and hard copies for tylenol #3 and codeine were given to pt on 05/11 with instructions. Nurse called pharmacists and informed him of this and for him to instruct pt's to look for copies. Also instructed pharmacist not sure if home economist consumer service provider would reorder scripts and for pt's to call nurse if she can't find scripts. Pharmacists voiced he understood and will inform pt's of this. Domitila Jones RN Support Nurse / Triage CIATE PROFESSOR OF RADIOLOGY documented in this encounter Plan of Treatment Not on filedocumented as of this encounter Visit Diagnoses Not on filedocumented in this encounter Care Teams Director Recreation Relationship Specialty Start Date End Date Deirdre Bedolla MD PCP - General Family Medicine 06/04/11 01/03/[address] [address] documented as of this encounter
--- OUTSIDE RECORDS SUMMARY | 2022-06-07 20:59 | XMS_ITS | Encounter Summary ---
:1935 Author Organization [employer] Address [address] [address] Phone Care Team Providers Name Role Phone Deirdre Bedolla MD Primary Care Provider [phone] Jessica Chua RN Unavailable [phone] Dewey Ramey Unavailable Reason for Visit Reason Onset Date Comments Care Coordination Program 09/24/2013 Post visit omer l Encounter Details Date Type Department Care Team Description 09/24/2013 Telephone [facility]-Alysia Marquez, Care Coordination FAMILY MEDICINE RN Program (Post visit [address] [phone] call) [place] [address] (Work) [phone] Social History Tobacco Use Types Packs/Day Years Used Date Smoking Tobacco: Never Smokeless Tobacco: Never Alcohol Use Standard Drinks/Week Comments No 0 (1 standard drink = 0.6 oz pure alcoho l) Sex Assigned at Date Recorded Not on file documented as of this encounter Miscellaneous Notes Telephone Encounter - Jessica Chua - 09/28/2013 9:29 AM CDT Called Bill and he said that his knee is hurting all of the time. It's not any better. He and Mary Ann didn't think it looked swollen or red. Explained that typewriter aligner would relay this to Dr Cristobal and they were in agreement with that plan. Telephone Encounter - Alysia Claudio RN - 09/24/2013 9:52 AM CDT CCP Post visit Reviewed notes from office visit with Dr. Bedolla on 09/21/13. Changes were made to Care Plan. Two new meds. Call placed to pt to discuss and review: ASSESSMENT AND PLAN: 1. I did do a urinalysis today, which is very positive. He clearly has quite a urinary tract infection with over 100 red and white cells, and many bacteria. 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 Will do Cipro 250 b.i.d. for 14 days. Call me if he is not improving within the next couple of days. 2. Gout. I do think he has developed gout in his right knee. Wrote for Indocin 50 t.i.d. for 3 days,b.i.d. for 3 days, daily for 3 days, and off. Discouraged any use of any antiinflammatories along with that. Pt did verbalize understanding of taking his antibiotics until they are gone. Joe reports that there is no sign of blood and no burning when he urinates. Mary Ann says he is taking his Indocin as directed but Joe says his knee pain is no better. He feelshis pain is centered in his knee and then sends out pain to his back. He has an appt 10/15/13 for a permanent nerve stimulator in his back. He said the temporary one worked well. Planned follow up: He has a pre-op physical appt for 10/05/13. documented in this encounter Plan of Treatment Not on filedocumented as of this encounter Visit Diagnoses Not on filedocumented in this encounter Care Teams Customer Relations Advisor Relationship Specialty Start Date End Date Deirdre Bedolla, PCP - General Family Medicine 06/04/11 01/03/[address] [address] Jessica Cuha, RN RN Manufacturing Assistant Family Medicine 09/04/13 11/29/14 Dewey Ramey Physician Other Pain Management 09/16/13 09/20/14 [facility] [address] [place] [address] [address] [place] [phone] documented as of this encounter
--- OUTSIDE RECORDS SUMMARY | 2022-06-07 20:59 | XMS_ITS | Encounter Summary ---
:1935 Author Organization [employer] Address [address] [place] [address] Phone Care Team Providers Name Role Phone Deirdre Bedolla MD Primary Care Provider [phone] Encounter Details Date Type Department Care Team Description 05/21/2013 Orders Only [facility] Niraj Tran , Pain (Primary Dx) FAMILY MEDICINE 2023 [facility] [address] [place] [address] [place] [phone] [place], [place] [address] (Wo rk) Social History Tobacco Use Types Packs/Day Years Used Date Smoking Tobacco: Never Smokeless Tobacco: Never Alcohol Use Standard Drinks/Week Comments No 0 (1 standard drink = 0.6 oz pure alcoho l) Sex Assigned at Date Recorded Not on file documented as of this encounter Ordered Prescriptions Prescription Sig Dispensed Refills Start Date End Date acetaminophen-codeine Take 1 Tab by mouth 30 Tab 0 05/2109/21/2013 (TYLENOL #3) 300-30 MG per three times a day. tabletIndications: Pain codeine 30 MG Take 1 Tab by mouth 90 Tab 0 05/21/2013 tabletIndications: Pain three times a day. documented in this encounter Plan of Treatment Not on filedocumented as of this encounter Visit Diagnoses Diagnosis Pain - Primary Generalized pain documented in this encounter Discontinued Medications Medication Sig Discontinue Reason Start Date End Date codeine 30 MG tablet Take 1 Tab by mouth 05/11/2013 05/21/2013 three times a day. documented as of this encounter Care Teams Yard Supervisor Cotton Gin Relationship Specialty Start Date End Date Deirdre Bedolla MD PCP - General Family Medicine 06/04/11 01/03/[address] [address] documented as of this encounter
--- OUTSIDE RECORDS SUMMARY | 2022-06-07 20:59 | XMS_ITS | Encounter Summary ---
:1935 Author Organization [employer] Address [address] [address] Phone Care Team Providers Name Role Phone Deirdre Bedolla MD Primary Care Provider [phone] Reason for Visit Reason Onset Date Comments Appointment 04/16/2013 Encounter Details Date Type Department Care Team Description 04/16/2013 Telephone [facility] Deirdre Kumar RN Appointment [address] [place] [id number] Social History Tobacco Use Types Packs/Day Years Used Date Smoking Tobacco: Never Smokeless Tobacco: Never Alcohol Use Standard Drinks/Week Comments No 0 (1 standard drink = 0.6 oz pure alcoho l) Sex Assigned at Date Recorded Not on file documented as of this encounter Miscellaneous Notes Telephone Encounter - Deirdre Kumar RN - 04/16/2013 4:23 PM CDT Patient called this morning as they missed their appt due to a family emergency, patient rescheduled with Dr. Ro on 05/20, requesting sooner appt. Gave emotional support, Informed patient there are currently no openings, but per scheduling they would attempt sooner appt for patient if ca ncellations. Patient verbalized understanding, will call if has further questions or concerns. documented in this encounter Plan of Treatment Not on filedocumented as of this encounter Visit Diagnoses Not on filedocumented in this encounter Care Teams Marketing Operations Coordinator Relationship Specialty Start Date End Date Deirdre Bedolla MD PCP - General Family Medicine 06/04/11 01/03/[address] [address] documented as of this encounter
--- OUTSIDE RECORDS SUMMARY | 2022-06-07 20:59 | XMS_ITS | Encounter Summary ---
:1935 Author Organization [employer] Address [address] [address] Phone Care Team Providers Name Role Phone Deirdre Bedolla MD Primary Care Provider [phone] Jessica Chua RN Unavailable [phone] Dewey Ramey Unavailable Shanice Zarco MD Unavailable Renny Jamil Unavailable Reason for Visit Reason Comments Referral [facility] Encounter Details Date Type Department Care Team Description 10/05/2013 Notes [facility] Riaz Bedolla ([facility] MEDICINE Deirdre Mosher MD Orthopedics) 2023 [facility] [address] [address] [place], [place] [address] (Wo rk) Social History Tobacco Use Types Packs/Day Years Used Date Smoking Tobacco: Never Smokeless Tobacco: Never Alcohol Use Standard Drinks/Week Comments No 0 (1 standard drink = 0.6 oz pure alcoho l) Sex Assigned at Date Recorded Not on file documented as of this encounter Progress Notes Mary Banks - 10/05/2013 12:30 PM CDT Referral received and faxed to [facility]. Patient will receive a call to schedule appointment from that facility once patient's chart/ information have been reviewed. For questions, please have patient call [phone] to speak with scheduling office. Thank you documented in this encounter Plan of Treatment Not on filedocumented as of this encounter Goals Goal Patient Goal Associated Recent Patient-Stated? 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 Note: Formatting of this [...] on filedocumented in this encounter Care Teams Entry Level Installation Technician Relationship Specialty Start Date End Date Chioma PCP - General Family Medicine 06/04/11 01/03/17 Deirdre Mosher MD [address] [id number] Jessica Chua RN Presales Senior Specialist Family Medicine 09/04/13 11/29/14 Марина RN Dewey Ramey Physician Other Pain Management 09/16/13 09/20/14 [facility] [address] [facility] [address] [place] [address] Shanice Zarco MD Physician Other Ophthalmology 10/05/13 [address] [place] [address] Renny Jamil Physician Other Neurosurgery 10/05/13 09/20/14 Marshal Acosta Other Dental Predatory Hunter 10/05/13 [address] [place], [place] [id number] Dr Posey Other Audiology 10/05/13 [place], [place] documented as of this encounter
--- OUTSIDE RECORDS SUMMARY | 2022-06-07 20:59 | XMS_ITS | Encounter Summary ---
:1935 Author Organization [employer] Address [address] [address] Phone Care Team Providers Name Role Phone Deirdre Bedolla MD Primary Care Provider [phone] Jessica Chua RN Unavailable [phone] Dewey Ramey Unavailable Reason for Visit Reason Onset Date Comments Other 09/18/2013 Encounter Details Date Type Department Care Team Description 09/18/2013 Telephone [facility] Anitra Landaverde RN Other MEDICINE 2023 [place], [place] [address] Social History Tobacco Use Types Packs/Day Years Used Date Smoking Tobacco: Never Smokeless Tobacco: Never Alcohol Use Standard Drinks/Week Comments No 0 (1 standard drink = 0.6 oz pure alcoho l) Sex Assigned at Date Recorded Not on file documented as of this encounter Miscellaneous Notes Telephone Encounter - Jessica Landaverde LPN - 09/18/2013 10:35 AM CDT Has appt. Thursday 09/[address] Cristobal Telephone Encounter - Jessica Landaverde LPN - 09/18/2013 10:35 AM CDT Message copied by JESSICA LANDAVERDE on SatSep 18, 2013 10:35 AM ------ Message from: TARI GODINZE Created: Mary Sep 17, 2013 8:28 AM Contact: patient Mabel Faye Date: 09/17/2013 Time: 8:29 AM May we leave a message: yes Patient's Date of : 1935 Person Calling: Simon Phone Number: Home phone [phone] (home) Reason for call: States having blood in urine, burning & pain with urination about 5 days. Transferred to RN support nurse, but he still wanted note sent to . Pt is aware that Dr is out until Saturday. He wants nurse or Dr to call on Saturday. Allergies: -- Penicillins Tari ext [phone] ------ documented in this encounter Plan of Treatment Not on filedocumented as of this encounter Visit Diagnoses Not on filedocumented in this encounter Care Teams Boat Hop Relationship Specialty Start Date End Date Deirdre Bedolla, PCP - General Family Medicine 06/04/11 01/03/17 MD [address] [address] Jessica Chua, FIORDALIZA RN Advertising Assistant Manager Family Medicine 09/04/13 11/29/14 Dewey Ramey Physician Other Pain Management 09/16/13 09/20/14 [facility] [address] [place] [address] [address] [place] [address] documented as of this encounter
--- OUTSIDE RECORDS SUMMARY | 2022-06-07 20:59 | XMS_ITS | Encounter Summary ---
:1935 Author Organization [employer] Address [address] [place] [address] Phone Care Team Providers Name Role Phone Deirdre Bedolla MD Primary Care Provider [phone] Reason for Visit Reason Comments Follow Up hx OAB Prostate Problem hx BPH Encounter Details Date Type Department Care Team Description 06/18/2013 Office Visit [facility] Tavo Ro, BPH (benign prostatic [address] MD hyperplasia) ([place] [address] 2023 [facility]) [phone] [place] [address] Social History Tobacco Use Types Packs/Day Years Used Date Smoking Tobacco: Never Smokeless Tobacco: Never Alcohol Use Standard Drinks/Week Comments No 0 (1 standard drink = 0.6 oz pure alcoho l) Sex Assigned at Date Recorded Not on file documented as of this encounter Last Filed Vital Signs Vital Sign Reading Time Taken Comments Blood Pressure 125/70 06/18/2013 1:28 PM PV DESIGN ENGINEER Pulse 73 06/18/2013 1:28 PM PV DESIGN ENGINEER Temperature - - Respiratory Rate 16 06/18/2013 1:28 PM PV DESIGN ENGINEER Oxygen Saturation - - Inhaled Oxygen Concentration - - Weight - - Height - - Body Mass Index - - documented in this encounter Patient Instructions Patient InstructionsTavo Ro MD - 06/22/2013 9:39 AM CST We ar egoing to stay on the flomax and oxybutynin but we could also do an injection of botox if you prefer a this point DESIGN ENGINEER documented in this encounter Progress Notes Tavo Ro MD - 06/23/2013 12:47 PM CST [facility] Patient Name: SIMON CASTILLO Date of Service: 06/18/2013 : 1935 Age: 77Y Sex: M DC Site MRN: Patient Loc/Room #: BRDUR/ Provider: Tavo Ro MD, Urology OFFICE NOTE SITE: [facility] SUBJECTIVE: Simon is here in followup of overactive bladder and BPH, still with severe symptoms. International prostate symptom score is 20. He still rates himself unhappy with his urination. We havediscussed in the past the possibility of doing an injection with Botox. His biggest symptoms are forsevere frequency and urgency, and he has nocturia x2. He has in the past been well controlled on anticholinergics with alpha blockade. He is currently on this treatment, and it just seems to be losing its effectiveness. 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 Icurrently have him on oxybutynin 15 mg a day and Flomax 0.4 mg. OBJECTIVE: On exam, his abdomen is soft and nontender. Bladder nonpalpable and nontender. Kidneys nonpalpable and nontender. Penis and testicles normal. Rectal exam was not repeated. He demonstrated multiple times that he empties his bladder reasonably well, so we did not repeat an evaluation there. IMPRESSION: BPH with severe lower urinary symptoms, likely impacted on by his spinal meningitis. PLAN: We will continue to follow him. I offered him a Botox injection into the bladder today, and heis going to consider that option and get back to us. Otherwise, we will see him back in 3 months. Prescriptions were refilled for Flomax and oxybutynin. Tavo Ro MD [facility] Urology cc: /SCW Job ID: [id number] /[id number] Document ID: [id number] DESIGN ENGINEER Tavo Ro MD - 06/22/2013 9:38 AM CST This note has been dictated. DESIGN ENGINEER Ines Miranda LPN - 06/18/2013 1:28 PM CST Fall Risk Yes: Walker DESIGN ENGINEER documented in this encounter Plan of Treatment Not on filedocumented as of this encounter Procedures Procedure Name Priority Date/Time Associated Diagnosis Comme nts URINALYSIS, REFLEX Routine 06/18/2013 1:47 PM BPH (benign Res ults for this TO CULTURE PV DESIGN ENGINEER prostatic procedure are i n hyperplasia) the results section. documented in this encounter Results UA TO CULTUR PRN (06/18/2013 1:47 PM PV DESIGN ENGINEER) [facility] gist Method Time Signature Type CVMS [facility] Color Yellow Yellow [facility] Appearance Clear Clear [facility] Urine Specific 1.025 1.003 - [facility] [place] 1.035 [facility] Urine pH 6.0 5.0 - 8.0 [facility] Urine Leukocyte Neg Neg [facility] Esterase [facility] Urine Nitrites Neg Neg [facility] Urine Protein Neg Neg-Trace ST. mg/dL [facility] Urine Glucose Neg Neg mg/dL [facility] Urine Ketone Neg Neg mg/dL [facility] Microscopic Not Indicated ST. Exam: [facility] Comment: Please Note: A routine urine not reflexing to a micro scopic exam automatically means the dipstick blood t est is negative. Urine WBC's Not Indicated 0 - 8 /HPF [facility] Urine RBC's Not Indicated 0 - 3 /HPF [facility] Urine Culture Reflex Not Indicated [facility] Specimen Anatomical Collection Method Collection Time Receive d Time (Source) Location / / Volume Laterality BODY SHOP ESTIMATOR 06/18/2013 1:47 PM 06/18/20 13 1:47 MID-STREAM URINE PV DESIGN ENGINEER PM PV DESIGN ENGINEER SPECIMEN OBTAINED BY CLEAN CATCH PROCEDURE / Unknown Tavo Ro MD EC URINE ORDERABLES Performing Organization Address City/State/ZIP Code Phon e Number [facility] documented in this encounter Visit Diagnoses Diagnosis BPH (benign prostatic hyperplasia) - Symone jennifer Unspecified hyperplasia of prostate with out urinary obstruction and other lower urinary tract symptoms (LUTS) documented in this encounter Care Teams Boring Mill Operator For Metal Relationship Specialty Start Date End Date Deirdre Bedolla MD PCP - General Family Medicine 06/04/11 01/03/[address] [address] documented as of this encounter
--- OUTSIDE RECORDS SUMMARY | 2022-06-07 20:59 | XMS_ITS | Encounter Summary ---
:1935 Author Organization [employer] Address [address] [address] Phone Care Team Providers Name Role Phone Deirdre Bedolla MD Primary Care Provider [phone] Jessica Chua RN Unavailable [phone] Dewey Ramey Unavailable Reason for Visit Reason Onset Date Comments Care Coordination Program 09/28/2013 knee pain Encounter Details Date Type Department Care Team Description 09/28/2013 Telephone [facility] Penny Chua FAMILY MEDICINE Jessica Parish RN Program (knee pain) [address] [facility] [phone] [place] [address] (Work) [phone] Social History Tobacco Use Types Packs/Day Years Used Date Smoking Tobacco: Never Smokeless Tobacco: Never Alcohol Use Standard Drinks/Week Comments No 0 (1 standard drink = 0.6 oz pure alcoho l) Sex Assigned at Date Recorded Not on file documented as of this encounter Ordered Prescriptions Prescription Sig Dispensed Refills Start Date End Date predniSONE (DELTASONE) 10 1 tab three times a 20 Tab 0 0 09/28/2013 10/05/2013 MG tablet day for 3 days, then 1 tab two times a day for 3 days, then 1 tab daily for 3 days, then 1/2 tab daily for 3 days. documented in this encounter Miscellaneous Notes Telephone Encounter - Jessica Chua - 09/28/2013 11:19 AM CDT Deirdredanielle Bedolla MD Sent: SatSeptember 28, 2013 9:56 AM To: Jessica Chua RN Message Let's try a short course of Prednisone. Stop the Indocin, he can go back to the Naprosyn he was using before. Do Prednisone 10mg tabs 1 tid 3d, bid 3d, every day 3d 1/2 every day 3d then off and see if that helps. If it doesn't, have him see ortho. ----- Message ----- From: Jessica Chua RN Sent: 09/28/2013 9:29 AM To: MD Dr Susu Silvestre, I called Joe. He said his knee isn't any better, it's hurting all of the time. No redness or swelling. Thank you, Jessica Chua RN Flat Surfacer Jewel 09/28/2013 11:27 AM - Medication entered per Dr Cristobal's note with her to co- sign. Left message for Bill that new prescription was sent to his pharmacy, but to please call back so that mortgage loan underwriter knows he is aware of the new recommendation. documented in this encounter Plan of Treatment Not on filedocumented as of this encounter Visit Diagnoses Not on filedocumented in this encounter Care Teams Eclectic Doctor Relationship Specialty Start Date End Date Deirdre Bedolla, PCP - General Family Medicine 06/04/11 01/03/[address] [place] [id number] Jessica Chua RN RN Flat Surfacer Jewel Family Medicine 09/04/13 11/29/14 Dewey Ramey Physician Other Pain Management 09/16/13 09/20/14 [facility] [address] [facility] [address] [place] [address] documented as of this encounter
--- OUTSIDE RECORDS SUMMARY | 2022-06-07 20:59 | XMS_ITS | Encounter Summary ---
:1935 Author Organization [employer] Address [address] [address] Phone Care Team Providers Name Role Phone Rima Bedolla MD Primary Care Provider [phone] Reason for Visit Reason Onset Date Comments Other 08/03/2013 Encounter Details Date Type Department Care Team Description 08/03/2013 Telephone [facility] Jerry Hurley LPN Other MEDICINE 2023 [place], [place] [id number] Social History Tobacco Use Types Packs/Day Years Used Date Smoking Tobacco: Never Smokeless Tobacco: Never Alcohol Use Standard Drinks/Week Comments No 0 (1 standard drink = 0.6 oz pure alcoho l) Sex Assigned at Date Recorded Not on file documented as of this encounter Miscellaneous Notes Telephone Encounter - Farhana Hurley LPN - 08/03/2013 2:27 PM CST Called to [employer]. Glucose monitor, strips, lancets and solution. ON PICTURES CARTOONIST Telephone Encounter - Farhana Hurley LPN - 08/03/2013 2:26 PM CST Message copied by FARHANA HURLEY on SatAug 03, 2013 2:26 PM ------ Message from: RIMA JONES Created: SatAug 03, 2013 8:36 AM Contact: self OK ----- Message ----- From: Farhana Hurley LPN Sent: 08/03/2013 8:25 AM To: Rima Bedolla MD ----- Message ----- From: Amie Walsh Sent: 07/31/2013 11:58 AM To: [facility] Amanda Herndon Provider: Susu Date: 07/31/2013 Time: 11:58 AM May we leave a message: unknown Patient's Date of : 1935 Person Calling: self Phone Number: Home phone [phone] (home) Reason for call: Please call [employer] and order him a new diabetes monitor because his isn't working [facility] Allergies: -- Penicillins Thank you, Brandy Walsh Call Center Ext [phone] ------ ON PICTURES CARTOONIST documented in this encounter Plan of Treatment Not on filedocumented as of this encounter Visit Diagnoses Not on filedocumented in this encounter Care Teams Labor Economics Teacher Relationship Specialty Start Date End Date Rmia Bedolla MD PCP - General Family Medicine 06/04/11 01/03/[address] [address] documented as of this encounter
--- OUTSIDE RECORDS SUMMARY | 2022-06-07 20:59 | XMS_ITS | Encounter Summary ---
:1935 Author Organization [employer] Address [address] [address] Phone Care Team Providers Name Role Phone Deirdre Bedolla MD Primary Care Provider [phone] Reason for Visit Reason Onset Date Comments Refill Request 04/10/2013 Encounter Details Date Type Department Care Team Description 04/10/2013 Refill [facility] MendozaonJerry LPN Refill Request MEDICINE 2023 [place], [place] [address] Social History Tobacco Use Types Packs/Day Years Used Date Smoking Tobacco: Never Smokeless Tobacco: Never Alcohol Use Standard Drinks/Week Comments No 0 (1 standard drink = 0.6 oz pure alcoho l) Sex Assigned at Date Recorded Not on file documented as of this encounter Ordered Prescriptions Prescription Sig Dispensed Refills Start Date End Date pregabalin (LYRICA) 25 MG 25 mg daily for 2 60 Cap 0 10/201205/11/2013 capsule weeks, then 50 mg daily. documented in this encounter Plan of Treatment Not on filedocumented as of this encounter Visit Diagnoses Not on filedocumented in this encounter Care Teams Gauger Chief Delivery Relationship Specialty Start Date End Date Deirdre Bedolla MD PCP - General Family Medicine 06/04/11 01/03/[address] [place] [address] documented as of this encounter
--- OUTSIDE RECORDS SUMMARY | 2022-06-07 20:59 | XMS_ITS | Encounter Summary ---
:1935 Author Organization [employer] Address [address] [address] Phone Care Team Providers Name Role Phone Deirdre Bedolla MD Primary Care Provider [phone] Encounter Details Date Type Department Care Team Description 05/06/2013 Scanned - [facility] Elsewhere, Pcp Reports [address] [place] [address] Social History Tobacco Use Types [...] on filedocumented in this encounter Care Teams Assembler For Puller Over Hand Relationship Specialty Start Date End Date Deirdre Bedolla MD PCP - General Family Medicine 06/04/11 01/03/[address] [address] documented as of this encounter
--- OUTSIDE RECORDS SUMMARY | 2022-06-07 20:59 | XMS_ITS | Encounter Summary ---
:1935 Author Organization [employer] Address [address] [address] Phone Care Team Providers Name Role Phone Deirdre Bedolla MD Primary Care Provider [phone] Jessica Chua RN Unavailable [phone] Dewey Ramey Unavailable Shanice Zarco MD Unavailable Renny Jamil Unavailable Reason for Referral Outgoing Referral - Provider Request (Routine) - NO REFERRAL NEEDED Specialty Diagnoses / Procedures Referred By Contact Refer red To Contact Orthopedic Surgery / Diagnoses Knee pain NANCY Bedolla [facility] Orthopedics Deirdre Mosher MD [address] [phone] Fax: Referral ID Status Reason Start Date Expiration Date Visits V isits Requested Authorized [id number] NO REFERRAL 10/05/2013 10/05/2013 1 1 NEEDED Comments Reason for Referral: Knee pain Is the reason for referral related to an injury? no Has the patient ever had surgery on this extremity/joint? no If applicable, list side: right Are there any films/x-rays pertaining to the reason for referral? no Have labs been ordered that are related to the reason for referral? no Referred to (facility name): n ortho Provider requested: Dr. Duffy Referral made at the request of patient/ family member Reason for Visit Reason Comments Pre-Op Exam Blood Pressure Imm/Inj Tdap Encounter Details Date Type Department Care Team Description 10/05/2013 Office Visit HAEVENLY PANFILO Bedolla Pre-op e xam (Primary Dx); CLINIC FAMILY Deirdre Mosher MD Back pain; MEDICINE [address] Knee pain; [address] [facility] [address] Hypertension; Street [place] [address] Diabetes; [place] [address] Hyperlipidemia Social History Tobacco Use Types Packs/Day Years Used Date Smoking Tobacco: Never Smokeless Tobacco: Never Alcohol Use Standard Drinks/Week Comments No 0 (1 standard drink = 0.6 oz pure alcoho l) Sex Assigned at Date Recorded Not on file documented as of this encounter Last Filed Vital Signs Vital Sign Reading Time Taken Comments Blood Pressure 135/79 10/05/2013 9:20 AM CDT Pulse 56 10/05/2013 9:20 AM CDT Temperature - - Respiratory Rate - - Oxygen Saturation - - Inhaled Oxygen Concentration - - Weight 88 kg (194 lb) 10/05/2013 9:20 AM CDT Height - - Body Mass Index 31.31 09/21/2013 10:02 AM CDT documented in this encounter Ordered Prescriptions Prescription Sig Dispensed Refills Start Date End Date gabapentin (NEURONTIN) Slowly increase to 3 810 Cap 3 01/06/2014 300 MG capsule pills TID. simvastatin (ZOCOR) 10 MG Take 1 Tab by mouth 180 Tab 2 0 10/05/2013 04/05/2014 tablet at bedtime. documented in this encounter Progress Notes Deirdre Bedolla MD - 10/06/2013 2:33 PM CDT [facility] Patient Name: AAMIR ESCOBAR Date of Service: 10/05/2013 : 1935 Age: 78Y Sex: M DC Site MRN: Patient Loc/Room #: [facility] FP/ Provider: Deirdre Bedolla MD, Family Practice HISTORY AND PHYSICAL SITE: [facility] Joe is here today for a preop. He is having a spinal cord stimulator placed on the . He has been suffering with some knee pain, we thought maybe it was related to gout, but he has not responded with anti-inflammatories or prednisone, so we will stop those. I suspect it is more coming from his back at this point. PAST MEDICAL HISTORY: 1. Coronary artery disease with an VT in 1989. Had right coronary stenting at that time and a VT again June 2012, which was restenosis of that stent. He had bare metal stents and actually coded in the ambulance on the way to [place]. 2. Type 2 diabetes - off meds since weight loss. 3. History of epidural abscess diskitis and osteomyelitis - ID has taken him off of antibiotics. He is intolerant of narcotics and suffers with chronic pain. 4. Reflux. 5. Hyperlipidemia. 6. Hypertension. 7. History of cervical neck fracture. 8. Benign prostatic hypertrophy. 9. Erectile dysfunction. 10. History of hypokalemia. 11. Chronic hearing loss. SURGICAL HISTORY: 1. Right rotator cuff. 2. Left hip replacement. 3. Neck surgery after fracture. 4. Appendectomy. 5. Hemorrhoidectomy. 6. Tonsillectomy. 7. Bilateral cataracts. 8. Low back surgery. No bleeding or anesthesia trouble. FAMILY HISTORY: Negative for bleeding or anesthesia trouble. SOCIAL HISTORY: Nonsmoker, nondrinker. is his caregiver. MEDICATIONS: 1. Simvastatin 10 mg daily. 2. Gabapentin 300, 3 pills t.i.d. 3. Aleve p.r.n. 4. Flomax 0.4 daily. 5. Atenolol 25 daily. 6. Protonix 40 daily. 7. Plavix 75 daily, which she will hold a week before the procedure. 8. MiraLAX daily. 9. Oxybutynin 15 mg of extended release daily. 10. Norvasc 5 mg daily. 11. Vitamin C 500 daily. 12. Multivitamin daily. 13. Senna p.r.n. 14. Baby aspirin daily, which he will stay on through the procedure. ALLERGIES: PENICILLIN. REVIEW OF SYSTEMS: He is still suffering with a lot of back and knee pain. Otherwise complete 12-point systems was obtained and is negative. OBJECTIVE: Weight is 194, blood pressure 135/79, pulse 56. General - pleasant, nontoxic, no acute distress. HEENT - atraumatic, normocephalic. Conjunctivae are clear. TMs clear. Nares patent, no drainage. Posterior pharynx unremarkable. Neck - supple. No lymphadenopathy. Thyroid normal. Heart is regular rate and rhythm. Respiratory - he is breathing comfortably. Lungs are clear. Abdomen - soft, nondistended, nontender to palpation in all 4 quadrants. No organomegaly. Extremities - no edema. ASSESSMENT AND PLAN: 1. Preop for spinal cord stimulator for chronic back pain. If this is not helpful, will follow up with me and we will continue to try different medications. Gabapentin is somewhat helpful. Could consider just trying really more atypical thinks maybe Topamax or switching to a different antiepileptic to give him some relief if this is not helpful. 2. Knee pain. I referred him to orthopedics. I do think this is coming from his back, but is not getting any help with this. We will have him see Dr. Duffy. 3. Hypertension - check electrolytes. 4. Diabetes - check A1c. 5. Hyperlipidemia - check lipids. I did do an EKG today which showed sinus bradycardia and reflects his previous inferior VT. Deirdre Bedolla MD [facility] cc: /JNEREYDA Job ID: [id number] /[id number] Document ID: [id number] Josie Landaverde LPN - 10/05/2013 9:19 AM CDT Depression ([place]) Screening Questions 1. During the past month, have you often been bothered by feeling down, depressed, or hopeless? Not at all 2. During the past month, have you often been bothered by little interest or pleasure in doing things? Not at all documented in this encounter Nursing Notes 10/05/2013 9:15 AM CDT >> ASUNCION MIRANDA LPN SatSep 22, 2013 10:49 AM This chart was prepped for visit by Asuncion Miranda LPN on 09/22/2013. documented in this encounter Plan of Treatment Not on filedocumented as of this encounter Goals Goal Patient Goal Associated Recent Patient-Stated? 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 Note: Formatting of this [...] Associated Diagnosis Comme nts BASIC METABOLIC Routine 10/05/2013 11:32 Hypertension Results for this PANEL AM CDT procedure are i n the results section. HEMOGLOBIN A1C Routine 10/05/2013 11:32 Diabetes Results f or this AM CDT procedure are i n the results section. LIPID PROFILE Routine 10/05/2013 11:32 Hyperlipidemia Results for this AM CDT procedure are i n the results section. CULTURE, URINE Routine 10/05/2013 10:00 Pre-op exam Results f or this AM CDT procedure are i n the results section. URINALYSIS, REFLEX Routine 10/05/2013 10:00 Pre-op exam Resul ts for this TO MICROSCOPIC AM CDT procedure are in the results section. documented in this encounter Results LIPID PROFILE (10/05/2013 11:32 AM CDT) P athologist Signature Cholesterol 158 114 - 200 [facility] mg/dL [facility] Comment: Total Cholesterol Reference Ranges Desirable: ? <200 ?mg/dL Borderline High: ?? 200-239 mg/dL High: ?>239 ?mg/ dL TRIGLYCERIDE 111 10 - 200 mg/dL [facility] HDL CHOLESTEROL 43 40 - 60 mg/dL [facility] LDL- CALCULATED 93 mg/dL [facility] Comment: LDL Cholesterol Reference Ranges Optimal: ?<100 ? mg/dL Near Optimal: ? 100-129 ??mg/dL Borderline High: ??130-159 ??mg/dL High: ? 160-189 ??mg/dL Very High: ?>189 ? mg/dL Specimen Anatomical Collection Method Collection Time Receive d Time (Source) Location / / Volume Laterality 10/05/2013 11:32 10/05/2013 AM CDT 11:36 AM CDT Narrative [facility] - 10/05/2013 12:05 PM CDT Fasting Deirdre Bedolla MD EC CHEMISTRY ORDERABLES A BN Performing Organization Address City/[facility] Phon e Number [facility] [address] [place] [address] LABORATORY [facility] 2023 [place] [address] LABORATORY A1C(HGB AIC) (10/05/2013 11:32 AM CDT) athologist Signature A1C (HGB AIC) 5.8 4.0 - 6.0 [facility] % MEDICAL CLINIC LABOR[facility]ORY Est Average 120 mg/dL [facility] Glucose [facility] Comment: According to ADA guidelines, the estim ed average glucose (eAG) will be calculated for all HgbA1c results. Specimen Anatomical Collection Method Collection Time Receive d Time (Source) Location / / Volume Laterality 10/05/2013 11:32 10/05/2013 AM CDT 11:36 AM CDT Narrative [facility] - 10/05/2013 11:52 AM CDT Fasting Deirdre Bedolla MD EC CHEMISTRY ORDERABLES A BN Performing Organization Address [facility] Phon e Number [facility] [address] [place] [address] LABORATORY [facility] 2023 [place] [address] LABORATORY BASIC MET PROF (10/05/2013 11:32 AM CDT) P athologist Signature SODIUM 142 134 - 143 [facility] mEq/L [facility] POTASSIUM 4.0 3.4 - 5.1 [facility] Chloride 108 99 - 110 [facility] CO2 27 22 - 29 [facility] mEq/L [facility] BUN 21 5 - 24 [facility] mg/dL [facility] Creatinine 0.88 0.70 - 1.20 [facility] mg/dL [facility] GFR CALC >60 [facility] MEDICAL [facility] Comment: GFR Normal: >60 mL/min/1.73 m2 Calcium 9.4 8.4 - 10.5 mg/dL [facility] ANION GAP 7 3 - 15 [facility] GLUCOSE 86 70 - 99 mg/dL [facility] Specimen Anatomical Collection Method Collection Time Receive d Time (Source) Location / / Volume Laterality 10/05/2013 11:32 10/05/2013 AM CDT 11:36 AM CDT Narrative [facility] - 10/05/2013 12:05 PM CDT Fasting Deirdre Bedolla MD EC CHEMISTRY ORDERABLES Performing Organization Address City/State/ZIP Code Phon e Number [facility] [address] [place] [address] LABORATORY [facility] [address] [place] [address] LABORATORY CULTURE, URINE (10/05/2013 10:00 AM CDT) Patholo gist Method Time Signature Urine Culture SEE BELOW [facility] Comment: ?MICROBIOLOGY Order#: [id number] ? Ordered by: DEIRDRE MCKINNON Source: Urine Clean Catch or CVMS ?Collected: ??03/31/14 10:00 Antibiotic Therapy: ?Received : ??10/05/13 13:04 Culture, Urine ? FINAL ? 10/07/13 06:42 ?BR 10,000 - 50,000 cfu/ml Mixed contaminants present Specimen Anatomical Collection Method Collection Time Receive d Time (Source) Location / / Volume Laterality SU[facility] 10/05/2013 10:00 10/05/2013 1:04 MID-STREAM URINE AM CDT PM CDT SPECIMEN OBTAINED BY CLEAN CATCH PROCEDURE / Unknown Deirdre Bedolla MD EC MICROBIOLOGY - GENERAL ORDERABLES Performing Organization Address City/State/ZIP Code Phon e Number [facility] (ABNORMAL) URINALYSIS (10/05/2013 10:00 AM CDT) [facility] Method Time Signature Type CVMS [facility] Color YELLOW Yellow [facility] Appearance CLEAR Clear [facility] Urine Specific 1.025 1.003 - [facility] [place] 1.035 MEDICAL CLINIC LAB[facility]ORY Urine pH 6.0 5.0 - 8.0 [facility] Urine Leukocyte Neg Neg [facility] Esterase [facility] Urine Nitrites Neg Neg [facility] Urine Protein Neg Neg-Trace [facility] mg/dL [facility] Urine Glucose Neg Neg mg/dL [facility] Urine Ketone Neg Neg mg/dL [facility] Microscopic ORDERED [facility] Exam: [facility] LAB[facility]ORY Comment: Please Note: A routine urine not reflexing to a micro scopic exam automatically means the dipstick blood t est is negative. Urine WBC's None seen 0 - 8 /HPF [facility] Urine RBC's 3-8 (A) 0 - 3 /HPF [facility] Urine Squamous Epithelial Few /LPF [facility] Urine Bacteria Few (A) /HPF [facility] MED ICAL [facility] Specimen Anatomical Collection Method Collection Time Receive d Time (Source) Location / / Volume Laterality 10/05/2013 10:00 10/05/2013 AM CDT 10:07 AM CDT Narrative [facility] - 10/05/2013 10:22 AM CDT Specimen Source?->CVMS URINE Deirdre Bedolla MD EC URINE ORDERABLES Performing Organization Address City/State/ZIP Code Phon e Number [facility] [address] [place] [address] LABORATORY [facility] [address] [place] [place] [address] LABORATORY documented in this encounter Visit Diagnoses Diagnosis Pre-op exam - Primary Preoperative examination, unspecified Back pain Backache, unspecified Knee pain Pain in joint, lower leg Hypertension Unspecified essential hypertension Diabetes Type II or unspecified type diabetes cindy litus without mention of complication, not stated as uncontrolled Hyperlipidemia Other and unspecified hyperlipidemia documented in this encounter Discontinued Medications Medication Sig Discontinue Reason Start Date End Date simvastatin (ZOCOR) 10 Take 1 Tab by 04/06/201309/07 MG tablet mouth at bedtime. gabapentin (NEURONTIN) Slowly increase to 03/11/2013 10/05/2013 300 MG capsule 3 pills TID. indomethacin (INDOCIN) 1 pill tid for 3d, Course of treatment 09/2110/05/2013 50 MG capsule bid 3d, every day completed 3d then off. Take with food or milk. predniSONE (DELTASONE) 1 tab three times Course of treatment 201310/05/2013 10 MG tablet a day for 3 days, completed then 1 tab two times a day for 3 days, then 1 tab daily for 3 days, then 1/2 tab daily for 3 days. diazepam (VALIUM) 5 MG Take 1 Tab by Course of treatment 08/14/2013 10/05/2013 tablet mouth two times a completed day. ciprofloxacin (CIPRO) Take 1 Tab by Course of treatment 09/21/2013 10/05/2013 250 MG tablet mouth two times a completed day for 14 days. documented as of this encounter Orders REFERRAL Count Last Ordered Date First Ordered Date [facility]PT [facility] 1 10/05/2013 documented in this encounter Care Teams Yarder Operator Relationship Specialty Start Date End Date Chioma, PCP - General Family Medicine 06/04/11 01/03/17 Deirdre Mosher MD [address] [phone] Jessica Chua RN Disk Sharpener Family Medicine 09/04/13 11/29/14 FIORDALIZA Parish Dewey Ramye Physician Other Pain Management 09/16/13 09/20/14 [facility] [address] [facility] [address] [place] [address] Shanice Zarco MD Physician Other Ophthalmology 10/05/13 [address] [place] [address] Renny Jamil Physician Other Neurosurgery 10/05/13 09/20/14 Marshal Acosta Other Dental It Field Technician 10/05/13 [address] [place], [place] [id number] Dr Posey Other Audiology 10/05/13 [place], [place] documented as of this encounter
--- OUTSIDE RECORDS SUMMARY | 2022-06-07 20:59 | XMS_ITS | Encounter Summary ---
:1935 Author Organization [employer] Address [address] [address] Phone Care Team Providers Name Role Phone Deirdre Bedolla MD Primary Care Provider [phone] Reason for Visit Reason Onset Date Comments Medication Question 04/10/2013 Encounter Details Date Type Department Care Team Description 04/10/2013 Telephone [facility] Luda Tovar, Medication Question Internal Medicine RN 2023 [place] [address] Social History Tobacco Use Types Packs/Day Years Used Date Smoking Tobacco: Never Smokeless Tobacco: Never Alcohol Use Standard Drinks/Week Comments No 0 (1 standard drink = 0.6 oz pure alcoho l) Sex Assigned at Date Recorded Not on file documented as of this encounter Miscellaneous Notes Telephone Encounter - Farhana Hurley LPN - 04/13/2013 10:04 AM CDT OK to try Lyrica, but we would use this INSTEAD OF Gabapentin. Start 25mg daily for 2 weeks, then increase to 50daily and see me. Stop Gabapentin. ----- Message ----- From: Luda Tovar RN Sent:04/10/2013 10:42 AM To: Deirdre Bedolla MD Telephone Encounter - Luda Tovar RN - 04/10/2013 10:36 AM CDT Message for Dr. Cristobal, Patients is calling in regards to the patient's pain medication that he is taking and concernedthat it is not working for him, I cannot sleep at night, I am worried that he will get up and not be able to find the bathroom. He is currently taking gabapentin and Tylenol # 3, this just makes him loopy. He did go and see psychologist who suggested Lyrica to see if that would help with his pain. I also wanted to let you know that he started up with his physical therapy again. I am wondering what Dr. Cristobal thinks about trying the Lyrica? Please advise Patient's pharmacy: [facility] Patient's farheen: [phone] Karen Hendrickson RN Support Internal Medicine documented in this encounter Plan of Treatment Not on filedocumented as of this encounter Visit Diagnoses Not on filedocumented in this encounter Care Teams Rn Charge Relationship Specialty Start Date End Date Deirdre Bedolla MD PCP - General Family Medicine 06/04/11 01/03/[address] [id number] documented as of this encounter
--- OUTSIDE RECORDS SUMMARY | 2022-06-07 20:59 | XMS_ITS | Encounter Summary ---
:1935 Author Organization [employer] Address [address] [address] Phone Care Team Providers Name Role Phone Deirdre Bedolla MD Primary Care Provider [phone] Reason for Visit Reason Onset Date Comments Care Coordination Program 08/25/2013 Follow-up Encounter Details Date Type Department Care Team Description 08/25/2013 Telephone [facility] Penny Chua FAMILY MEDICINE Jessica Parish, RN Program (Follow-up) 2023 [facility] [phone] [place] [address] (Work) [phone] Social History Tobacco Use Types Packs/Day Years Used Date Smoking Tobacco: Never Smokeless Tobacco: Never Alcohol Use Standard Drinks/Week Comments No 0 (1 standard drink = 0.6 oz pure alcoho l) Sex Assigned at Date Recorded Not on file documented as of this encounter Miscellaneous Notes Telephone Encounter - Jessica Chua - 08/28/2013 3:07 PM CST Called [place] to respond to their question regarding Dr Cristobal's interpretation of the MRI. Dr Cristobal agreed with Dr Danielson's findings that there was not infection on the MRI. Left a message [employer] machine to please return call. HT CONTROL ENGINEER Telephone Encounter - Jessica Chua - 08/28/2013 2:43 PM CST Certified Personal Trainer spoke with Joe garner Mary Ann yesterday morning. Joe reports that he is doing well, the spine stimulator was removed after four days because it was temporary, and he said he really noticed a difference especially after it was removed. Joe has surgery planned for 10/15 and a pre-op with Dr Ferreira 10/05/2013. Joe saw Dr Danielson, Infectious Diseases at [facility] on 08/25. Dr Danielson told them based on Joe's MRI, he didn't have an infection in his spine any longer. Dr Danielson also mentioned to them he thought they should consider having his neurosurgeon Dr Gifford clean out scar tissue from his back that could be causing pain before considering a stimulator, but Joe and Mary Ann said they really feel that the spine stimulator is what is right for Joe. Regardless, Dr Danielson said he would send Dr Gifford a letter about it. Will watch for Dr Danielson's note to be sent to Dr Cristobal and scanned into chart. Plan: RN Mobile Ui Developer will call in 1-2 weeks to start care plan questions. Joe will call soonerif needed. HT CONTROL ENGINEER Telephone Encounter - Jessica Chua - 08/25/2013 5:17 PM CST Mary Ann had called earlier today and left a message for me, asking that I notify Dr Danielson's office that Joe had an MRI in [facility] earlier this month. Mary Ann also said that Joe had an appointment with Dr Danielson this afternoon in [facility] . Certified Personal Trainer called and left a message with Dr Danielson's nurse. Also tried calling at 5:18 PM but Joe and Mary Ann were not home yet, will try calling AM. HT CONTROL ENGINEER documented in this encounter Plan of Treatment Not on filedocumented as of this encounter Visit Diagnoses Not on filedocumented in this encounter Care Teams Customer Project Manager Relationship Specialty Start Date End Date Deirdre Bedolla MD PCP - General Family Medicine 06/04/11 01/03/[address] [phone] documented as of this encounter
--- OUTSIDE RECORDS SUMMARY | 2022-06-07 20:59 | XMS_ITS | Encounter Summary ---
:1935 Author Organization [employer] Address [address] [address] Phone Care Team Providers Name Role Phone Deirdre Bedolla MD Primary Care Provider [phone] Jessica Chua RN Unavailable [phone] De[address] Ramey Unavailable Shanice Zarco MD Unavailable Renny Jamil Unavailable Reason for Visit Reason Comments Refill Request Encounter Details Date Type Department Care Team Description 10/05/2013 Refill [facility] Mabel Bedolla Refill Request FAMILY MEDICINE MD Nomi 2023 [facility] [address] [address] [place], [place] [phone] (Wo rk) Social History Tobacco Use Types [...] Lorena a 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 Note: Formatting of [...] on filedocumented in this encounter Care Teams Property Assistant Relationship Specialty Start Date End Date Chioma PCP - General Family Medicine 06/04/11 01/03/17 Deirdre Mosher MD [address] [phone] Jessica Chua RN Coagulating Drying Supervisor Family Medicine 09/04/13 11/29/14 FIORDALIZA Parish Dewey Ramey Physician Other Pain Management 09/16/13 09/20/14 [facility] [address] [facility] [address] [place] [address] Shanice Zarco MD Physician Other Ophthalmology 10/05/13 [address] [place] [address] Renny Jamil S Physician Other Neurosurgery 10/05/13 09/20/14 Marshal Acosta Other Dental Yard Person 10/05/13 [address] [place], [place] [id number] Dr Posey Other Audiology 10/05/13 [place], [place] documented as of this encounter
--- OUTSIDE RECORDS SUMMARY | 2022-06-07 20:59 | XMS_ITS | Encounter Summary ---
:1935 Author Organization [email or web address] Address [address] [address] Phone Care Team Providers Name Role Phone Deirdre Bedolla MD Primary Care Provider [phone] Reason for Visit Reason Comments Other toe nail care Encounter Details Date Type Department Care Team Description 04/20/2013 Office Visit [facility] Will Kate, Dermatop hytosis of nail (Primary Dx); Clinic Podiatry Type II or unspecified type diabetes cindy litus with peripheral circulatory disorders, not stated as uncontrolled ([facility]) 2023 [facility] [address] [place] [address] [facility] [place] [phone] Social History Tobacco Use Types Packs/Day Years Used Date Smoking Tobacco: Never Smokeless Tobacco: Never Alcohol Use Standard Drinks/Week Comments No 0 (1 standard drink = 0.6 oz pure alcoho l) Sex Assigned at Date Recorded Not on file documented as of this encounter Last Filed Vital Signs Vital Sign Reading Time Taken Comments Blood Pressure 136/74 04/20/2013 4:17 PM CDT Pulse - - Temperature - - Respiratory Rate - - Oxygen Saturation - - Inhaled Oxygen Concentration - - Weight 78.9 kg (174 lb) 04/20/2013 4:17 PM CDT Height 167.6 cm (5' 6) 04/20/2013 4:17 PM CDT Body Mass Index 28.08 04/20/2013 4:17 PM CDT documented in this encounter Progress Notes Will Kate Dpm - 04/21/2013 3:40 PM CDT [facility] Patient Name: SIMON CASTILLO Date of Service: 04/20/2013 : 1935 Age: 77Y Sex: M DC Site MRN: Patient Loc/Room #: BRBMCPOD/ Provider: Will Kate DPM, Podiatry OFFICE NOTE SITE: [facility] Elderly 77-year-old male seen for evaluation of very painful and thickened toenails, all digits. Patient has had issues with pain in his right extremity. He has been in the [facility] for treatment. OBJECTIVE: Examination reveals very painful, thickened, yellowish discolored, crumbly, onychomycotic, and dystrophic nails, all digits. He has moderate pedal edema. Has dependent rubor on both feet. Skin turgor very thin and shiny. No digital hair growth. Pedal pulses are difficult to elicit. History of diabetes. MEDICATIONS AND ALLERGIES: Noted in the intake sheet. VITAL SIGNS: BP 136/74, height 5'4, weight 174. ASSESSMENT 1. Painful, onychomycotic, and dystrophic nails. 2. Diabetes. 3. Peripheral vascular disease. PLAN: Debridement of all nails 1 through 5 on the right, and all nails 1 through 5 on the left. Followup as needed. Will Kate DPM [facility] Podiatry cc: /DFR Job ID: [id number] /la Document ID: [id number] Will Kate Dpm - 04/20/2013 4:28 PM CDT This note has been dictated. Remedios Baum - 04/20/2013 4:18 PM CDT Fall Risk Yes: Walker documented in this encounter Plan of Treatment Not on filedocumented as of this encounter Procedures Procedure Name Priority Date/Time Associated Diagnosis Comme nts DEBRIDEMENT OF NAILS, Routine 04/20/2013 4:27 PM Dermato phytosis of nail 6 OR MORE CDT Type II or unspecified type diabetes mellitus with peripheral circulatory disorders, not stated as uncontrolled (HCC) documented in this encounter Visit Diagnoses Diagnosis Dermatophytosis of nail - Primary Type II or unspecified type diabetes cindy litus with peripheral circulatory disorders, not stated as uncontrolled(250.70) Type II or unspecified type diabetes cindy litus with peripheral circulatory disorders, not stated as uncontrolled documented in this encounter Orders Procedures Count Last Ordered Date First Ordered Date DEBRIDEMENT OF NAILS, 6 OR MORE 1 04/20/2013 documented in this encounter Care Teams Manager Of Financial Reporting Relationship Specialty Start Date End Date Deirdre Bedolla MD PCP - General Family Medicine 06/04/11 01/03/[address] [id number] documented as of this encounter
--- OUTSIDE RECORDS SUMMARY | 2022-06-07 20:59 | XMS_ITS | Encounter Summary ---
:1935 Author Organization [employer] Address [address] [address] Phone Care Team Providers Name Role Phone Deirdre Bedolla MD Primary Care Provider [phone] Reason for Referral (Routine) Specialty Diagnoses / Procedures Referred By Contact Refer red To Contact Infectious Diseases Deirdre Bedolla MD [address] [place] [address] Referral ID Status Reason Start Date Expiration Date Visits Requ ested Visits Authorized Comments Reason for referral: question osteomyeli tis Referred to (facility name): [facility] Provider requested: Dr. Danielson Referral made at the request of patient/ family member F STRATEGY OFFICER Reason for Visit Reason Comments Follow Up Encounter Details Date Type Department Care Team Description 08/14/2013 Office Visit PANCHO Bedolla, Epidural abscess (Primary Dx); CLINIC FAMILY Deirdre Mosher MD Discitis; MEDICINE [address] Osteomyelitis (HCC); 2023 [facility] Diabetes; Carmen [place] [id number] Heart disease; [place] [id number] Hypertension Social History Tobacco Use Types Packs/Day Years Used Date Smoking Tobacco: Never Smokeless Tobacco: Never Alcohol Use Standard Drinks/Week Comments No 0 (1 standard drink = 0.6 oz pure alcoho l) Sex Assigned at Date Recorded Not on file documented as of this encounter Last Filed Vital Signs Vital Sign Reading Time Taken Comments Blood Pressure 136/78 08/14/2013 3:50 PM CHIEF STRATEGY OFFICER Pulse 70 08/14/2013 3:47 PM CHIEF STRATEGY OFFICER Temperature - - Respiratory Rate - - Oxygen Saturation - - Inhaled Oxygen Concentration - - Weight 83 kg (183 lb) 08/14/2013 3:47 PM CHIEF STRATEGY OFFICER Height - - Body Mass Index 29.99 05/11/2013 10:30 AM CHIEF STRATEGY OFFICER documented in this encounter Patient Instructions Patient InstructionsMahling-Deirdre Cristobal MD - 08/14/2013 4:13 PM CHIEF STRATEGY OFFICER Scheduling will call you to set up an appt with Infectious Disease to see what they think about the MRI changes. Repeat MRI in 3 months and see me after that. Take 5mg of Valium 20 minutes before the MRI. F STRATEGY OFFICER documented in this encounter Ordered Prescriptions Prescription Sig Dispensed Refills Start Date End Date diazepam (VALIUM) 5 MG Take 1 Tab by mouth 1 Tab 0 01/201410/05/2013 tablet two times a day. documented in this encounter Progress Notes Deirdre Bedolla MD - 08/17/2013 10:44 AM CST [facility] Patient Name: SIMON CASTILLO Date of Service: 08/14/2013 : 1935 Age: 77Y Sex: M DC Site MRN: Patient Loc/Room #: [facility] FP/ Provider: Deirdre Bedolla MD, Family Practice OFFICE NOTE SITE: [facility] SUBJECTIVE: Joe is here today for a followup. He has a history of an epidural abscess, diskitis, and osteomyelitis of the spine. Saw Dr. Jagjit wade in [facility]. At that time they did an extensive evaluation and determined he no longer needed antibiotics. That included aspirating the disk space and following inflammatory markers. He has continued to suffer with horrible back pain and was intolerant of any narcotic I tried to give him. We have tried several modalities including acupuncture, etc., and nothing has been successful. Just yesterday he was able to get a spinal cord stimulator in place and is already feeling significant improvement in his right leg. However, as a part of this workup the doctors who placed the spinal cord stimulator recommended an MRI down at [facility] and told him it looks like he still has osteomyelitis and he should see me. I review his records and it actually looksimproved from his last one so I am not really necessarily in agreement with that. Joe has actually improved significantly, is eating better, gaining weight, sleeping better, pain is slowly improving, and so I think all of these things just really argue against a worsening process in his back, but it is something we need to address. In terms of diabetes, blood sugars have been good. He and Mary Ann are starting to have some interpersonal conflict understandably as they have basically been together 28/01 since this happened back in June 2002. PAST MEDICAL HISTORY: 1. Coronary artery disease with [place] in 1989. He had right coronary stenting at that time and an [place] oner 2011, in [place] where he had to bare-metal stents, actually coded in the ambulance on the way down to [place] at that time. 2. Type 2 diabetes. Off meds currently since he had his significant illness. 3. History of epidural abscess, diskitis, and osteomyelitis. Was thought to require lifelong Keflex,but ID has taken him off antibiotics. Has been really suffering with a lot of chronic pain. Intolerant of any orthotics. 4. Reflux. 5. Hyperlipidemia. 6. Hypertension. 7. History of a cervical neck fracture. 8. Benign prostatic hypertrophy. 9. Erectile dysfunction. 10. History of hypokalemia. 11. Chronic hearing loss. SOCIAL HISTORY: Nonsmoker. REVIEW OF SYSTEMS: He has had no chest pains. No breathing troubles. His back pain is better, especially since he got the spinal cord stimulator in place yesterday. OBJECTIVE: Weight is 182, blood pressure 136/78, pulse 70. Generally pleasant, nontoxic, no acute distress. HEENT - atraumatic, normocephalic. Conjunctivae are clear. Heart is regular. Lungs are clear.Back - exam looks good. I reviewed his MRI through the Care Everywhere tab. ASSESSMENT AND PLAN: 1. History of epidural abscess. I think his MRI looks improved and I really am doubting the need forany antibiotics here. Certainly they are put in a tough spot as they are hearing different things from different providers. My suggestion is that we continue off antibiotics. Certainly have Dr. Danielson see him, review his records and weigh in on his opinion, and repeat an MRI in 3 months. See me back just to make sure that things are continuing to improve. I will give him 5 mg of Valium to take prior tohis MRI. 2. Diabetes. He will be due for diabetic labs when I see him next. 3. Coronary artery disease. He is actually doing very well. Has had no chest pains. 4. Hypertension. Blood pressure is good. Now that he is starting to eat more, we may have to be moreaggressive in treating that. I did get him a visit with Jessica today of care coordination as I think he would be just a particularly excellent candidate for that. They are even considering paying out of the pocket, but will leave that to them. Deirdre Bedolla MD [facility] Practice cc: /JKM Job ID: [id number] /[facility] Document ID: [id number] F STRATEGY OFFICER Farhana Hurley LPN - 08/14/2013 3:49 PM CST Fall Risk Yes: Walker Depression ([place]) Screening Questions 1. During the past month, have you often been bothered by feeling down, depressed, or hopeless? Not at all 2. During the past month, have you often been bothered by little interest or pleasure in doing things? Not at all F STRATEGY OFFICER documented in this encounter Nursing Notes 08/14/2013 3:30 PM CST >> MARIXA JOSHI LPN Fri Aug 07, 2013 1:49 PM This chart was prepped for visit by Marixa Joshi LPN on 08/07/2013. documented in this encounter Plan of Treatment Not on filedocumented as of this encounter Visit Diagnoses Diagnosis Epidural abscess - Primary Intracranial and intraspinal abscess of unspecified site Discitis Other and unspecified disc disorder of u nspecified region Osteomyelitis (HCC) Unspecified osteomyelitis, site unspecif ied Diabetes Type II or unspecified type diabetes cindy litus without mention of complication, not stated as uncontrolled Heart disease Heart disease, unspecified Hypertension Unspecified essential hypertension documented in this encounter Discontinued Medications Medication Sig Discontinue Reason Start Date End Date codeine 30 MG Take 1 Tab by Course of treatment 05/21/20132013 tabletIndications: Pain mouth three times completed a day. documented as of this encounter Orders REFERRAL Count Last Ordered Date First Ordered Date APPT WITH INFECTIOUS DISEASE CENTRAL 1 08/14/2013 [facility] documented in this encounter Care Teams Hydraulic Pile Hammer Operator Relationship Specialty Start Date End Date Deirdre Bedolla MD PCP - General Family Medicine 06/04/11 01/03/[address] [address] documented as of this encounter
--- OUTSIDE RECORDS SUMMARY | 2022-06-07 20:59 | XMS_ITS | Encounter Summary ---
:1935 Author Organization [employer] Address [address] [address] Phone Care Team Providers Name Role Phone Deirdre Bedolla MD Primary Care Provider Encounter Details Date Type Department Care Team Description 07/27/2013 Scanned - [facility] Elsewhere, Pcp Reports [address] [place] [address] Social History Tobacco Use Types [...] on filedocumented in this encounter Care Teams Stone Product Fabricator Relationship Specialty Start Date End Date Deirdre Bedolla MD PCP - General Family Medicine 06/04/11 01/03/[address] [address] documented as of this encounter
--- OUTSIDE RECORDS SUMMARY | 2022-06-07 20:59 | XMS_ITS | Encounter Summary ---
:1935 Author Organization [employer] Address [address] [address] Phone Care Team Providers Name Role Phone Deirdre Bedolla MD Primary Care Provider [phone] Reason for Visit Reason Onset Date Comments Appointment 04/22/2013 Encounter Details Date Type Department Care Team Description 04/22/2013 Telephone [facility] Yanni Ro RN Appointment [address] [place] [address] Social History Tobacco Use Types Packs/Day Years Used Date Smoking Tobacco: Never Smokeless Tobacco: Never Alcohol Use Standard Drinks/Week Comments No 0 (1 standard drink = 0.6 oz pure alcoho l) Sex Assigned at Date Recorded Not on file documented as of this encounter Miscellaneous Notes Telephone Encounter - Deloris Ro - 04/22/2013 11:33 AM CDT I called a laft a message for the patients that we do not have any appointments prior to their departure on 04-29. I informed patients i need more information about when they will return fromtheir trip. Also informed patients he would need a consult prior to scheduling procedure and that this would have to go through prior auth before we can move forward with scheduling procedure. i asked the patients to call my office to discuss this further. documented in this encounter Plan of Treatment Not on filedocumented as of this encounter Visit Diagnoses Not on filedocumented in this encounter Care Teams Manager Pest Relationship Specialty Start Date End Date Deirdre Bedolla MD PCP - General Family Medicine 06/04/11 01/03/[address] [address] documented as of this encounter
--- OUTSIDE RECORDS SUMMARY | 2022-06-07 20:59 | XMS_ITS | Encounter Summary ---
:1935 Author Organization [employer] Address [address] [address] Phone Care Team Providers Name Role Phone Deirdre Bedolla MD Primary Care Provider [phone] Jessica Chua RN Unavailable [phone] Dewey Ramey Unavailable Reason for Visit Reason Onset Date Comments Care Coordination Program 09/16/2013 Care Plan Encounter Details Date Type Department Care Team Description 09/16/2013 Telephone [facility] Penny Chua FAMILY MEDICINE Jessica Parish RN Program (Care Plan ) 2023 [facility] [phone] [place] [address] (Work) [phone] Social History Tobacco Use Types Packs/Day Years Used Date Smoking Tobacco: Never Smokeless Tobacco: Never Alcohol Use Standard Drinks/Week Comments No 0 (1 standard drink = 0.6 oz pure alcoho l) Sex Assigned at Date Recorded Not on file documented as of this encounter Miscellaneous Notes Telephone Encounter - Jessica Chua - 09/17/2013 8:42 AM CDT Joe transferred to customs entry writer from clinic panama hat hydraulic press operator. Joe said he noticed some burning with urination about five days ago, and then yesterday I noticed a very tiny amount of blood in my urine. He said the amount of burning pain is very minimal. He said he didn't believe he had a fever, he denied bodyaches or chills. He said his urine is clear. Joe said, the other nurse said that I could come in and have it checked out but I really would prefer to wait for Dr Cristobal when she's back on Saturday. Explained to Joe that customs entry writer felt he needed to be evaluated in the clinic. Explained that [facility] hasother providers that he could see today or tomorrow, and that there is a walk-in urgent care over at the [facility] as well. Also provided option of contacting Dr Ro at the [facility] to see if they could see Joe, but again Joe was firm that he wanted to wait until Dr Cristobal was back on Saturday. We reviewed other symptoms or signs that would indicate worsening including increase in pain in pelvis and low back area, increase in discomfort with urination, fever, body aches, chills, and just not feeling well. Joe said he would call customs entry writer tomorrow if he was feeling worse, and again said,I really just want to wait until Saturday for Dr Cristobal to get back. Joe also asked that a verbal Release of Information form be mailed to his Mary Ann so they can complete that as well. Explained to Joe that customs entry writer could do that, but hadn't thought of it as Mary Ann isn't enrolled in Care Coordination. He said Mary Ann would mail it back. Telephone Encounter - Jessica Chua - 09/16/2013 2:46 PM CDT Called Joe to go through care plan questions. Left message requesting return phone call. documented in this encounter Plan of Treatment Not on filedocumented as of this encounter Visit Diagnoses Diagnosis Other specified examination - Primary documented in this encounter Care Teams Charge Coordinator Relationship Specialty Start Date End Date Deirdre Bedolla, PCP - General Family Medicine 06/04/11 01/03/[address] [address] Jessica Chua, RN RN Data Processing Operator Family Medicine 09/04/13 11/29/14 Dewey Ramey Physician Other Pain Management 09/16/13 09/20/14 [facility] [address] [place] [phone] documented as of this encounter
--- OUTSIDE RECORDS SUMMARY | 2022-06-07 20:59 | XMS_ITS | Encounter Summary ---
:1935 Author Organization [employer] Address [address] [address] Phone Care Team Providers Name Role Phone Deirdre Bedolla MD Primary Care Provider [phone] Jessica Chua RN Unavailable [phone] Dewey Ramey Unavailable Reason for Visit Reason Onset Date Comments Care Coordination Program 10/02/2013 Pre-visit (Dr Bedolla, 10/05) Encounter Details Date Type Department Care Team Description 10/02/2013 Telephone [facility] Penny Chua FAMILY MEDICINE Jessica Parish RN Program (Pre-visit ( 2023 [facility] [phone] [place], 10/05)) [place] [address] (Work) [phone] Social History Tobacco Use Types Packs/Day Years Used Date Smoking Tobacco: Never Smokeless Tobacco: Never Alcohol Use Standard Drinks/Week Comments No 0 (1 standard drink = 0.6 oz pure alcoho l) Sex Assigned at Date Recorded Not on file documented as of this encounter Miscellaneous Notes Telephone Encounter - Jessica Chua - 10/02/2013 3:10 PM CDT Images from the original note were not included. Subject: Care Coordination Pre visit Call Pt has appt with Deirdre Bedolla MD on 10/05/13 for pre-op physical. Allergies Reviewed - no Medications Reviewed - Unable. Bill doesn't know what he's been taking for pain as Mary Ann really manages all of that. He does believe that he's been taking the prednisone, and he had left me a messagethat he picked up the new prescription. Earlier last week he said his bladder symptoms had resolved.(Mary Ann wasn't at home the couple of times I tried calling). Pt has updated Care Plan - no, going to meet after this appointment to review questions. Any visits with a specialists or other physicians since your last visit - no [facility], most recent 08/17/13, which is scanned into media tab' Any changes in your health or behavior - yes, started prednisone for knee pain. Joe said he didn't think it really was doing any better, but then said, if you ask Mary Ann, though, she may tell you she thinks I am doing a bit better. But in my opinion, it honestly feels about the same. Joe wasn't sure what he was taking for pain so will try calling back in an hour to go through with Mary Ann. Objectives/Goals for the visit. What are the 2-3 questions or issues? 1. Pre-op for spine stimulator. Joe said he didn't think he had any papers to bring with to appointment. documented in this encounter Plan of Treatment Not on filedocumented as of this encounter Visit Diagnoses Diagnosis Other specified examination - Primary documented in this encounter Care Teams Cloth Tearer Relationship Specialty Start Date End Date Deirdre Bedolla PCP - General Family Medicine 06/04/11 01/03/[address] [facility] [id number] Jessica Chua, RN RN Imagery Intelligence Family Medicine 09/04/13 11/29/14 Dewey Ramey Physician Other Pain Management 09/16/13 09/20/14 [facility] [address] [place] [address] [address] [place] [phone] documented as of this encounter
--- OUTSIDE RECORDS SUMMARY | 2022-06-07 20:59 | XMS_ITS | Encounter Summary ---
:1935 Author Organization [employer] Address [address] [address] Phone Care Team Providers Name Role Phone Deirdre Bedolla MD Primary Care Provider [phone] Reason for Visit Reason Comments Follow Up Encounter Details Date Type Department Care Team Description 05/20/2013 Office Visit [facility] UROLOGY Tavo Ro, BPH (benign prostatic [address] MD hyperplasia) (Primary [facility] [place] [address] 2023 [facility] Dx) [phone] [place] [address] Social History Tobacco Use Types Packs/Day Years Used Date Smoking Tobacco: Never Smokeless Tobacco: Never Alcohol Use Standard Drinks/Week Comments No 0 (1 standard drink = 0.6 oz pure alcoho l) Sex Assigned at Date Recorded Not on file documented as of this encounter Last Filed Vital Signs Vital Sign Reading Time Taken Comments Blood Pressure 117/67 05/20/2013 9:19 AM MULTI SITE LEASING CONSULTANT Pulse 56 05/20/2013 9:19 AM MULTI SITE LEASING CONSULTANT Temperature - - Respiratory Rate 16 05/20/2013 9:19 AM MULTI SITE LEASING CONSULTANT Oxygen Saturation - - Inhaled Oxygen Concentration - - Weight - - Height - - Body Mass Index - - documented in this encounter Patient Instructions Patient InstructionsTavo oR MD - 06/18/2013 2:06 PM CST We are going to stay on the oxybutynin fro now for the overactive bladder and also get you back on the flomax as the new medicine did not seem to work any better. Follow up in 3 months. I SITE LEASING CONSULTANT documented in this encounter Ordered Prescriptions Prescription Sig Dispensed Refills Start Date End Date tamsulosin (FLOMAX) 0.4 Take 1 Cap by mouth 30 Cap 12 06/201312/15/2013 MG 24 hour one time a day. capsuleIndications: BPH Capsules should be (benign prostatic swallowed whole; do hyperplasia) not crush, chew, or open documented in this encounter Progress Notes Tavo Ro MD - 07/14/2013 10:[address] [facility] Patient Name: SIMON CASTILLO Date of Service: 05/20/2013 : 1935 Age: 77Y Sex: M DC Site MRN: Patient Loc/Room #: BRDUR/ Provider: Tavo Ro MD, Urology OFFICE NOTE SITE: [facility] Simno is here in followup of his BPH. He has had very severe symptoms. He has been on Flomax. He has been on Rapaflo and then he has been on oxybutynin 15 mg a day. He feels that he gets mostly emptywith urination. He refuses to wear pads, so he has been going through 10 to 15 pairs of boxers everyday. He feels that he gets empty when he goes to the bathroom. His problem is complicated due to other medical conditions. He had an epidural abscess with a very prolonged hospitalization at the time of that diagnosis. So his symptoms are likely compounded by the bladder situation. We have been tryingto manage this medically without much success so far. ON EXAM: His abdomen is soft and nontender. Bladder - nonpalpable and nontender. Penis and testicles- normal. Bladder ultrasound was performed showing a residual urine of 225 mL. No mucosal abnormalities or stones are seen. So he continues to not empty out perfectly, but has the severe incontinence with some discomfort. We are going to switch him back to Flomax from the Rapaflo as that seemed to work better for him. We are staying on the oxybutynin for now for the overactive bladder and I am going to follow him up in 3 months' time. If we continue to make no progress then we are going to need to consider something like a Botox injection, which has been a consideration of his all along. I do thinkthat it is a possibility at this point, but I hesitate with the current retention situation. Furthermore, I have had to explain to him multiple times that this is not an end-all to his problem as the process needs to be repeated every 6 to 18 months as the Botox is expelled from the body. We will see him back in the near future. If we can get him emptying out better we may be able to consider Botox. Tavo Ro MD [facility] Urology [facility] Urology cc: /SCW Job ID: [id number] /yuri Document ID: [id number] I SITE LEASING CONSULTANT Tavo Ro MD - 07/13/2013 3:47 PM CST This note has been dictated. I SITE LEASING CONSULTANT Ines Miranda LPN - 05/20/2013 9:13 AM CST Fall Risk Yes: Walker with wheels. Bladder scan done in office per Dr. Ro verbal orders. About 221 mL residual urine. rapaflo 8 mg PO tab samples x [address] Ro verbal order. Take as directed by Dr. Ro. I SITE LEASING CONSULTANT documented in this encounter Plan of Treatment Not on filedocumented as of this encounter Procedures Procedure Name Priority Date/Time Associated Diagnosis Comme nts US URINE CAPACITY Routine 07/13/2013 3:48 PM BPH (benign MEASURE MULTI SITE LEASING CONSULTANT prostatic hyperplasia) URINALYSIS, REFLEX Routine 05/20/2013 10:09 AM BPH (benign Re sults for this TO CULTURE MULTI SITE LEASING CONSULTANT prostatic procedure are i n hyperplasia) the results section. documented in this encounter Results UA TO CULTUR PRN (05/20/2013 10:09 AM MULTI SITE LEASING CONSULTANT) [facility] Method Time Signature Type CVMS [facility] Color Yellow Yellow [facility] Appearance Clear Clear [facility] Urine Specific 1.025 1.003 - [facility] [place] 1.035 [facility] UROLOG[facility] LABOR[facility] Urine pH 5.5 5.0 - 8.0 [facility] Urine Leukocyte Neg Neg ST. Esterase [facility]OLOG[facility] LAB[facility] Urine Nitrites Neg Neg [facility] Urine Protein Neg Neg-Trace ST. mg/dL [facility]OLOG[facility] Urine Glucose Neg Neg mg/dL [facility] Urine Ketone Neg Neg mg/dL [facility] Microscopic Not Indicated [facility] Exam: [facility] Comment: Please Note: A routine urine not reflexing to a micro scopic exam automatically means the dipstick blood t est is negative. Urine WBC's Not Indicated 0 - 8 /HPF [facility] UROLOGY LABORATORY Urine RBC's Not Indicated 0 - 3 /HPF [facility]OLOG[facility] LABOR[facility] Urine Culture Reflex Not Indicated [facility] UROLOGY LABORATORY Specimen Anatomical Collection Method Collection Time Receive d Time (Source) Location / / Volume Laterality [facility] 05/20/2013 10:09 05/20/2013 MID-STREAM URINE AM MULTI SITE LEASING CONSULTANT 10:09 AM CS T SPECIMEN OBTAINED BY CLEAN CATCH PROCEDURE / Unknown Tavo Ro MD EC URINE ORDERABLES Performing Organization Address City/State/ZIP Code Phon e Number [facility] documented in this encounter Visit Diagnoses Diagnosis BPH (benign prostatic hyperplasia) - [facility] Unspecified hyperplasia of prostate with out urinary obstruction and other lower urinary tract symptoms (LUTS) documented in this encounter Discontinued Medications Medication Sig Discontinue Reason Start Date End Date acetaminophen-codein Take 1 Tab by mouth Course of treatment 201205/20/2013 e (TYLENOL #3) every four hours as completed 300-30 MG per tablet needed for Pain. Acetaminophen should be limited to 4000 mg per day. acetaminophen-codein Acetaminophen should be Course of treatment 05/20/2013 e (TYLENOL #3) limited to 4000 mg per completed 300-30 MG per tablet day. Use TID. tamsulosin (FLOMAX) Take 1 Cap by mouth one Course of treatment 05/20/2013 0.4 MG 24 hour time a day. Capsules completed capsule should be swallowed whole; do not crush, chew, or open silodosin (RAPAFLO) Take 1 Cap by mouth one Changed to an 3 06/18/2013 8 MG CAPS capsule time a day. alternate therapy documented as of this encounter Historical Medications This list may reflect changes made after this encounter. Medication Sig Dispensed Refills Start Date End Date silodosin (RAPAFLO) 8 MG Take 1 Cap by mouth 28 Cap 0 06/18/2013 CAPS capsule one time a day. added in this encounter Orders Procedures Count Last Ordered Date First Ordered Date US URINE CAPACITY MEASURE 1 07/13/2013 documented in this encounter Care Teams Stone Spreader Operator Relationship Specialty Start Date End Date Deirdre Bedolla MD PCP - General Family Medicine 06/04/11 01/03/[address] [address] documented as of this encounter
--- OUTSIDE RECORDS SUMMARY | 2022-06-07 20:59 | XMS_ITS | Encounter Summary ---
:1935 Author Organization [employer] Address [address] [address] Phone Care Team Providers Name Role Phone Deirdre Bedolla MD Primary Care Provider [phone] Reason for Visit Reason Comments Refill Request Encounter Details Date Type Department Care Team Description 03/31/2013 Refill [facility] Mabel Bedolla Refill Request FAMILY MEDICINE MD Nomi 2023 [facility] eet [address] [address] [place], [place] [address] (Wo rk) Social History Tobacco Use Types [...] IN LIQUID AND DRINK EVERY DAY FORCONSTIPATION. documented in this encounter Plan of Treatment Not on filedocumented as of this encounter Visit Diagnoses Not on filedocumented in this encounter Discontinued Medications Medication Sig Discontinue Reason Start Date End Date polyethylene glycol 3350 Take 17 g by mouth 12/10/2012 03/31/2013 (MIRALAX) powder one time a day as needed for Constipation. Mix in 8 oz of water, juice, soda, coffee, or tea prior to administration. documented as of this encounter Care Teams Care Rep Relationship Specialty Start Date End Date Deirdre Bedolla MD PCP - General Family Medicine 06/04/11 01/03/[address] [address] documented as of this encounter
--- OUTSIDE RECORDS SUMMARY | 2022-06-07 20:59 | XMS_ITS | Encounter Summary ---
:1935 Author Organization [employer] Address [address] [address] Phone Care Team Providers Name Role Phone Rima Bedolla MD Primary Care Provider [phone] Jessica Chua RN Unavailable [phone] Dewey Ramey Unavailable Reason for Visit Reason Comments Urinary Problem Imm/Inj Tdap/pneumovax Encounter Details Date Type Department Care Team Description 09/21/2013 Office Visit YONATHANRachel Bedolla, Urinary frequency (Primary Dx); CLINIC FAMILY Rima Mosher MD UTI (lower urinary tract infection); MEDICINE 2023 [place] [address] [place] [id number] [phone] Social History Tobacco Use Types Packs/Day Years Used Date Smoking Tobacco: Never Smokeless Tobacco: Never Alcohol Use Standard Drinks/Week Comments No 0 (1 standard drink = 0.6 oz pure alcoho l) Sex Assigned at Date Recorded Not on file documented as of this encounter Last Filed Vital Signs Vital Sign Reading Time Taken Comments Blood Pressure 128/84 09/21/2013 10:04 AM CDT Pulse 57 09/21/2013 10:02 AM CDT Temperature 36.3 ??C (97.4 ??F) 09/21/2013 10:02 AM CDT Respiratory Rate - - Oxygen Saturation - - Inhaled Oxygen Concentration - - Weight 86.2 kg (190 lb) 09/21/2013 10:02 AM CDT Height 167.6 cm (5' 6) 09/21/2013 10:02 AM CDT Body Mass Index 30.67 09/21/2013 10:02 AM CDT documented in this encounter Patient Instructions Patient InstructionsMaRima Reinoso MD - 09/21/2013 10:35 AM CDT 1) Start Indocin for the knee. Take 1 pill 3 times daily for 3day, twice daily for 3 days, once daily for 3 days and HOLD THE ALEVE WHILE YOU ARE TAKING THIS. 2) For the urine infection, start Cipro twice daily for 2 weeks. We will re- check your urine next time I see you. documented in this encounter Ordered Prescriptions Prescription Sig Dispensed Refills Start Date End Date indomethacin (INDOCIN) 50 1 pill tid for 3d, 18 Cap 0 10/05/2013 MG capsule bid 3d, every day 3d then off. Take with food or milk. ciprofloxacin (CIPRO) 250 Take 1 Tab by 28 Tab 0 2 014 10/05/2013 MG tablet mouth two times a day for 14 days. documented in this encounter Progress Notes Rima Bedolla MD - 09/23/2013 5:48 AM CDT [facility] Patient Name: SIMON CASTILLO Date of Service: 09/21/2013 : 1935 Age: 78Y Sex: M DC Site MRN: Patient Loc/Room #: BRC FP/ Provider: Rima Bedolla MD, Family Practice OFFICE NOTE SITE: [facility] SUBJECTIVE: Joe is here today for urinary symptoms. It started about 10 days ago with frequency, urgency, and blood in his urine. He finally told his last week, who called our nonfarm animal caretaker Jessica, but Joe refused to see anybody else. Since then, he has been having increased pain all over, especially his right kneecap. At times that is even red and warm to the touch. He of course, has his chronic back pain that is about 10/10 but says the pain in his kneecap is different. This is just an excruciating sharp, shocklike pain that actually hurts to the touch, where as his back pain typically did not hurt as much to the touch, and again, sometimes they feel like that has been red and warm to the touch. PAST MEDICAL HISTORY: 1. Coronary artery disease with an CT in 1989. He had right coronary stenting at that time and an MIagain July 04, 2012. Had bare metal stents; actually coded in the ambulance on the way to [place]. 2. Type 2 diabetes off meds. 3. History of epidural abscess, diskitis, and osteomyelitis. ID has taken him off of the antibiotics. Intolerant of narcotics, suffers with chronic pain. 4. Reflux. 5. Hyperlipidemia. 6. Hypertension. 7. History of a cervical neck fracture. 8. Benign prosthetic hypertrophy. 9. Erectile dysfunction. 10. History of hypokalemia. 11. Chronic hearing loss. REVIEW OF SYSTEMS: He has not had any fevers that he is aware of. Has not had any other red, hot, orswollen joints. PHYSICAL EXAM: Height is 5'6, weight 190, blood pressure 128/84, pulse 57, temperature is 97.4. Generally pleasant, nontoxic, no acute distress. HEENT - head atraumatic, normocephalic. Conjunctivae are clear. Heart is regular. Lungs are clear. He has no CVA tenderness. Right knee is a little bit erythematous and warm to the touch. ASSESSMENT AND PLAN: 1. I did do [...] use of any antiinflammatories along with that. Rima Bedolla MD [facility] cc: /GARRETT Job ID: [id number] /[id number] Document ID: [id number] Josie Landaverde LPN - 09/21/2013 10:00 AM CDT Depression ([place]) Screening Questions 1. During the past month, have you often been bothered by feeling down, depressed, or hopeless? Not at all 2. During the past month, have you often been bothered by little interest or pleasure in doing things? Not at all documented in this encounter Nursing Notes 09/21/2013 9:45 AM CDT >> ASUNCION MIRANDA LPN Fri Sep 18, 2013 10:19 AM This chart was prepped for visit by Asuncion Miranda LPN on 09/18/2013. documented in this encounter Plan of Treatment Not on filedocumented as of this encounter Procedures Procedure Name Priority Date/Time Associated Diagnosis Comme nts CULTURE, URINE Routine 09/21/2013 9:58 AM Urinary frequency Re sults for this CDT procedure are i n the results section. URINALYSIS, REFLEX Routine 09/21/2013 9:58 AM Urinary frequenc y Results for this TO CULTURE CDT procedure are i n the results section. documented in this encounter Results (ABNORMAL) CULTURE, URINE (09/21/2013 9:58 AM CDT) [facility] Method Time Signature Urine Culture SEE BELOW [facility] ([facility] Comment: ?MICROBIOLOGY Order#: [id number] ? Ordered by: RIMA MCKINNON Source: Urine ?Collected: ??09/21/13 09:58 Antibiotic Therapy: ?Received : ??09/21/13 13:13 Culture, Urine ? FINAL ? 09/23/13 06:33 ?BR ? >100,000 cfu/ml Proteus mirabilis ? P.mirabilis ANTIBIOTIC ? MICHELLE ?? INTRP Amikacin ?<=16 ?S ?? Amp/Sulbactam ?<=8 /4 ?S ?? Ampicillin ? <=8 ? S ?? Augmentin ?< =8/4 ?S ?? Aztreonam ? <=8 ? S ?? Cefazolin ? <=8 ? S ?? Cefepime ?<=8 ? S ?? Cefotaxime ? <=2 ? S ?? Cefotetan ? <=16 ?S ?? Cefoxitin ? <=8 ? S ?? Ceftazidime ? < =1 ? S ?? Ceftriaxone ? < =8 ? S ?? Cefuroxime ? <=4 ? S ?? Ciprofloxacin ? <= 1 ? S ?? Ertapenem ? <=2 ? S ?? Gentamicin ? <=4 ? S ?? Imipenem ?<=4 ? S ?? Levofloxacin ?< =2 ? S ?? Nitrofurantoin ?>6 4 ? R ?? Piperacillin/Tazo ? <=16 ?S ?? Tetracycline ? >8 ? R ?? Ticar/K Clav'ate ?<=1 6 ?S ?? Tobramycin ? <=4 ? S ?? Trimeth/Sulfa ?<=2 /38 ?? S ?? S=SUSCEPTIBLE ??I=INTERMEDIATE ??NS=NOT SUSCEPTABLE ??R=RESISTANT TFG=THYMIDINE-DEPENDENT STRAIN ? Pete c=BETA-LACTAMASE POSITIVE ? ESBL = EXTENDED SPECTRUM BETA-LACTAMASE IB =INDUCIBLE BETA-LACTAMASE. Appears in place of S with species known to possess inducible lactamases; potentially they may become resistant to all beta-la ctam drugs. Monitoring of patients during/after therapy is recommended. ??Avoid other/combined beta -lactam drugs. Specimen Anatomical Collection Method Collection Time Receive d Time (Source) Location / / Volume Laterality 09/21/2013 9:58 AM 4 1:13 CDT PM CDT Rima Bedolla MD EC MICROBIOLOGY - GENERAL ORDERABLES Performing Organization Address City/State/ZIP Code Phon e Number [facility] (ABNORMAL) UA TO CULTUR PRN (09/21/2013 9:58 AM CDT) [facility] Method Time Signature Type CVMS [facility] Color RED Yellow [facility] Appearance CLOUDY Clear [facility] Urine Specific 1.020 1.003 - [facility] [place] 1.035 [facility] Urine pH 7.5 5.0 - 8.0 [facility] Urine Leukocyte LARGE (A) Neg [facility] Esterase [facility] Urine Nitrites Neg Neg [facility] Urine Protein 100 (A) Neg-Trace [facility] mg/dL [facility] Urine Glucose Neg Neg mg/dL [facility] Urine Ketone Neg Neg mg/dL [facility] Microscopic ORDERED [facility] Exam: MEDICAL CL[facility]IC LAB[facility]ORY Comment: Please Note: A routine urine not reflexing to a micro scopic exam automatically means the dipstick blood t est is negative. Urine WBC's 100+ (A) 0 - 8 /HPF [facility] Urine RBC's 100+ (A) 0 - 3 /HPF [facility] Urine Squamous Epithelial Moderate /LPF [facility] LABORATORY Urine Bacteria Many (A) /HPF [facility] Urine Culture Reflex Ordered [facility] Specimen Anatomical Collection Method Collection Time Receive d Time (Source) Location / / Volume Laterality PIPE LAYER 09/21/2013 9:58 AM 09/22/19 14 9:58 MID-STREAM URINE CDT AM CDT SPECIMEN OBTAINED BY CLEAN CATCH PROCEDURE / Unknown Rima Bedolla MD EC URINE ORDERABLES Performing Organization Address City/[facility]/ZIP Code Phon e Number [facility] [address] [place] [address] LABORATORY [facility] 2023 [place] [address] LABORATORY documented in this encounter Visit Diagnoses Diagnosis Urinary frequency - Primary UTI (lower urinary tract infection) Urinary tract infection, site not specif ied Gout Gout, unspecified documented in this encounter Discontinued Medications Medication Sig Discontinue Reason Start Date End Date acetaminophen-codeine Take 1 Tab by Course of treatment 05/21/2013 09/21/2013 (TYLENOL #3) 300-30 MG mouth three times completed per tabletIndications: a day. Pain documented as of this encounter Historical Medications This list may reflect changes made after this encounter. Medication Sig Dispensed Refills Start Date End Date naproxen sodum (ALEVE) Take 1 Tab by mouth 0 09/0501/06/2014 220 MG tablet two times a day with meals. Take with food. added in this encounter Care Teams Tank Truck Mechanic Relationship Specialty Start Date End Date Rima Bedolla, PCP - General Family Medicine 06/04/11 01/03/[address] [id number] Jessica Chua, RN RN Senior Technical Business Analyst Family Medicine 09/04/13 11/29/14 Dewey Ramey Physician Other Pain Management 09/16/13 09/20/14 [facility] [address] [address] [place] [phone] documented as of this encounter
--- OUTSIDE RECORDS SUMMARY | 2022-06-07 20:59 | XMS_ITS | Encounter Summary ---
:1935 Author Organization [employer] Address [address] [address] Phone Care Team Providers Name Role Phone Deirdre Bedolla MD Primary Care Provider [phone] Jessica Chua RN Unavailable [phone] Dewey Ramey Unavailable Shanice Zarco MD Unavailable Renny Jamil Unavailable Reason for Visit Reason Comments Care Coordination Program Care Plan Encounter Details Date Type Department Care Team Description 10/05/2013 Care Plan [facility] Penny Chua FAMILY MEDICINE Jessica Parish RN Program (Care Plan) 2023 [facility] [phone] [place] [address] (Work) [phone] Social History Tobacco Use Types Packs/Day Years Used Date Smoking Tobacco: Never Smokeless Tobacco: Never Alcohol Use Standard Drinks/Week Comments No 0 (1 standard drink = 0.6 oz pure alcoho l) Sex Assigned at Date Recorded Not on file documented as of this encounter Progress Notes Jessica Chua - 10/05/2013 11:27 AM CDT Images from the original note were not included. ## See Care Plan in SnapShot. Go to SnapShot -> in report look up type care plan choose Amb Care Coordination Care Plan. ## Met with patient and spouse. Reviewed and updated care coordination health risk assessment. Updated care plan and Sent to patient. documented in this encounter Plan of Treatment Not on filedocumented as of this encounter Goals Goal Patient Goal Associated Recent Patient-Stated? 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 Note: Formatting of [...] Primary documented in this encounter Care Teams Rail Loader Relationship Specialty Start Date End Date Chioma PCP - General Family Medicine 06/04/11 01/03/17 Deirdre Mosher MD [address] [address] Jessica Chua RN Java Development Manager Family Medicine 09/04/13 11/29/14 Марина RN Dewey Ramey Physician Other Pain Management 09/16/13 09/20/14 [facility] [address] [address] [place] [address] Shanice Zarco MD Physician Other Ophthalmology 10/05/13 [address] [place] [address] Renny Jamil Physician Other Neurosurgery 10/05/13 09/20/14 Marshal Acosta Other Dental Area Sales Manager 10/05/13 [address] [place], [place] [id number] Dr Posey Other Audiology 10/05/13 [place], [place] documented as of this encounter
--- OUTSIDE RECORDS SUMMARY | 2022-06-07 20:59 | XMS_ITS | Encounter Summary ---
:1935 Author Organization [employer] Address [address] [address] Phone Care Team Providers Name Role Phone Deirdre Bedolla MD Primary Care Provider [phone] Reason for Visit Reason Onset Date Comments Refill Request 04/06/2013 Encounter Details Date Type Department Care Team Description 04/06/2013 Refill [facility] XaviJerry, REINA Refill Request MEDICINE 2023 [place], [place] [id number] Social History Tobacco Use Types Packs/Day Years Used Date Smoking Tobacco: Never Smokeless Tobacco: Never Alcohol Use Standard Drinks/Week Comments No 0 (1 standard drink = 0.6 oz pure alcoho l) Sex Assigned at Date Recorded Not on file documented as of this encounter Ordered Prescriptions Prescription Sig Dispensed Refills Start Date End Date clopidogrel (PLAVIX) 75 MG Take 1 Tab by mouth 90 Tab 3 04/06/2013 04/19/2014 tablet one time a day. simvastatin (ZOCOR) 10 MG Take 1 Tab by mouth 90 Tab 3 0 04/06/2013 10/05/2013 tablet at bedtime. pantoprazole (PROTONIX) 40 Take 1 Tab by mouth 90 Tab 3 04/06/2013 03/27/2014 MG tablet one time a day. Do not crush. documented in this encounter Plan of Treatment Not on filedocumented as of this encounter Visit Diagnoses Not on filedocumented in this encounter Discontinued Medications Medication Sig Discontinue Reason Start Date End Date pantoprazole (PROTONIX) Take 1 Tab by mouth 03/11/2013 04/06/2013 40 MG tablet one time a day. Do not crush. simvastatin (ZOCOR) 10 MG Take 1 Tab by mouth 03/11/20 13 04/06/2013 tablet at bedtime. clopidogrel (PLAVIX) 75 TAKE ONE TABLET BY 11/05/2012 04/06/2013 MG tablet MOUTH ONE TIME DAILY documented as of this encounter Care Teams Flight Attendant Ramp Relationship Specialty Start Date End Date Deirdre Bedolla MD PCP - General Family Medicine 06/04/11 01/03/[address] [address] documented as of this encounter
--- OUTSIDE RECORDS SUMMARY | 2022-06-07 20:59 | XMS_ITS | Encounter Summary ---
:1935 Author Organization [email or web address] Address [address] [address] Phone Care Team Providers Name Role Phone Deirdre Bedolla MD Primary Care Provider [phone] Jessica Chua RN Unavailable [phone] Reason for Visit Reason Comments Care Coordination Program Billing code entry Encounter Details Date Type Department Care Team Description 09/04/2013 Notes [facility] Toma Care Coordination Program FAMILY MEDICINE Jessica Parish RN (Billing code entry) 2023 [facility] [phone] [place] [address] (Work) [phone] Social History Tobacco Use Types Packs/Day Years Used Date Smoking Tobacco: Never Smokeless Tobacco: Never Alcohol Use Standard Drinks/Week Comments No 0 (1 standard drink = 0.6 oz pure alcoho l) Sex Assigned at Date Recorded Not on file documented as of this encounter Progress Notes Jessica Chua - 09/04/2013 10:19 AM CST Tier Tool reviewed and accurate. Billing code entered for CCP. MAKER DEVELOPER documented in this encounter Plan of Treatment Not on filedocumented as of this encounter Visit Diagnoses Diagnosis Hypertension - Primary Unspecified essential hypertension Heart disease Heart disease, unspecified Hyperlipidemia Other and unspecified hyperlipidemia Diabetes Type II or unspecified type diabetes cindy litus without mention of complication, not stated as uncontrolled documented in this encounter Orders Immunization/Injection Count Last Ordered Date First O rdered Date MEDICALHOMМарина, INITIALPLAN T1-3 1 09/04/2013 documented in this encounter Care Teams Redye Hand Relationship Specialty Start Date End Date Deirdre Bedolla, PCP - General Family Medicine 06/04/11 01/03/[address] [address] Jessica Chua RN RN Prefinish Operator Family Medicine 09/04/13 11/29/14 documented as of this encounter
--- OUTSIDE RECORDS SUMMARY | 2022-06-07 20:59 | XMS_ITS | Encounter Summary ---
:1935 Author Organization [employer] Address [address] [address] Phone Care Team Providers Name Role Phone Deirdre Bedolla MD Primary Care Provider Reason for Visit Reason Comments Refill Request Encounter Details Date Type Department Care Team Description 04/23/2013 Refill [facility] Mabel Bedolla Refill Request FAMILY MEDICINE MD Nomi 2023 [facility] [address] [address] [place], [place] [address] (Wo rk) Social History Tobacco Use Types Packs/Day Years Used Date Smoking Tobacco: Never Smokeless Tobacco: Never Alcohol Use Standard Drinks/Week Comments No 0 (1 standard drink = 0.6 oz pure alcoho l) Sex Assigned at Date Recorded Not on file documented as of this encounter Ordered Prescriptions Prescription Sig Dispensed Refills Start Date End Date atenolol (TENORMIN) 25 MG TAKE ONE TABLET BY 90 Tab 0 11/05/2013 tablet MOUTH ONE TIME DAILY documented in this encounter Plan of Treatment Not on filedocumented as of this encounter Visit Diagnoses Not on filedocumented in this encounter Discontinued Medications Medication Sig Discontinue Reason Start Date End Date atenolol (TENORMIN) 25 MG Take 1 Tab by mouth 10/28/19 13 04/23/2013 tablet one time a day. documented as of this encounter Care Teams Buffing Machine Operator Semiautomatic Relationship Specialty Start Date End Date Deirdre Bedolla MD PCP - General Family Medicine 06/04/11 01/03/[address] [address] documented as of this encounter
--- OUTSIDE RECORDS SUMMARY | 2022-06-07 20:59 | XMS_ITS | Encounter Summary ---
:1935 Author Organization [employer] Address [address] [address] Phone Care Team Providers Name Role Phone Deirdre Bedolla MD Primary Care Provider [phone] Reason for Visit Reason Comments Referral [facility] Infectious Diseas e Encounter Details Date Type Department Care Team Description 08/17/2013 Notes [facility] Riaz Bedolla ([facility] FAMILY MEDICINE Deirdre Mosher MD Infectious Disease) 2023 [facility] [address] [address] [place], [place] [address] (Wo rk) Social History Tobacco Use Types Packs/Day Years Used Date Smoking Tobacco: Never Smokeless Tobacco: Never Alcohol Use Standard Drinks/Week Comments No 0 (1 standard drink = 0.6 oz pure alcoho l) Sex Assigned at Date Recorded Not on file documented as of this encounter Progress Notes Mary Banks - 08/17/2013 3:52 PM CST Referral received and faxed to [facility] Infectious Disease. Patient will receive a call to schedule appointment from that facility once patient's chart/ information have been reviewed. For questions, please have patient call [phone] to speak with scheduling office. Thank you E OPENER documented in this encounter Plan of Treatment Not on filedocumented as of this encounter Visit Diagnoses Not on filedocumented in this encounter Care Teams Automotive Product Engineer Relationship Specialty Start Date End Date Deirdre Bedolla MD PCP - General Family Medicine 06/04/11 01/03/17[address] [address] documented as of this encounter
--- OUTSIDE RECORDS SUMMARY | 2022-06-07 20:59 | XMS_ITS | Encounter Summary ---
:1935 Author Organization [employer] [facility] Address [address] [address] Phone Care Team Providers Name Role Phone Deirdre Bedolla MD Primary Care Provider [phone] Jessica Chua RN Unavailable [phone] Dewey Ramey Unavailable Reason for Visit Reason Onset Date Comments Medication Information 09/21/2013 No Triage 09/21/2013 Encounter Details Date Type Department Care Team Description 09/21/2013 Nurse Triage [facility] Louise Petersen, Medicat [facility] RN Information; No Triage 2023 [place], [place] [id number] Social History Tobacco Use Types Packs/Day Years Used Date Smoking Tobacco: Never Smokeless Tobacco: Never Alcohol Use Standard Drinks/Week Comments No 0 (1 standard drink = 0.6 oz pure alcoho l) Sex Assigned at Date Recorded Not on file documented as of this encounter Miscellaneous Notes Telephone Encounter - Louise Petersen - 09/21/2013 12:10 PM CDT Protocol: MEDICATION QUESTION CALL-A- Affirmative: Pharmacy calling with prescription question and triager answers question Disposition of Home Care suggested. Caller requesting a refill, no triage required, and triager able to refill per unit policy Negative: Caller requesting information about medication use with ; neither adult nor is ill, and triager answers question Negative: Caller requesting information about medication during ; adult is not ill and triager answers question Negative: Caller has medication question, adult has mild symptoms, caller declines triage, and triager answers question Negative: Caller has medication question only, adult not sick, and triager answers question Negative: Caller has medication question about med not prescribed by PCP and triager unable to answer question (e.g., compatibility with other med, storage) Negative: Caller requesting a nonurgent new prescription or refill and triager unable to refill per unit policy Negative: Caller has nonurgent medication question about med that PCP prescribed and triager unable to answer question Negative: Caller has URGENT medication question about med that PCP prescribed and triager unable to answer question Negative: Pharmacy calling with prescription questions and triager unable to answer question Negative: [1] Request for urgent new prescription or refill of essential medication (i.e., likelihood of harm to patient if not taken) AND [2] triager unable to fill per unit policy Negative: [1] Prescription not at pharmacy AND [2] was prescribed today by PCP Negative: Diabetes medication error (e.g., insulin) and triager unable to answer question Negative: [1] Asthma and [2] having symptoms of asthma (cough, wheezing, etc) Negative: Immmunization reaction suspected Negative: Rash while taking a medication or within 3 days of stopping it Negative: Caller requesting a prescription for Strep throat and has a positive culture result Negative: Caller requesting information not related to medication Negative: Drug overdose and nurse unable to answer question Negative: Diabetes medication overdose (e.g., insulin) documented in this encounter Plan of Treatment Not on filedocumented as of this encounter Visit Diagnoses Not on filedocumented in this encounter Care Teams Rose Grader Relationship Specialty Start Date End Date Deirdre Bedolla PCP - General Family Medicine 06/04/11 01/03/[address] [address] Jessica Chua RN RN Senior Shipping Clerk Family Medicine 09/04/13 11/29/14 Dewey Ramey Physician Other Pain Management 09/16/13 09/20/14 [facility] [address] [place] [phone] documented as of this encounter
--- OUTSIDE RECORDS SUMMARY | 2022-06-07 20:59 | XMS_ITS | Encounter Summary ---
:1935 Author Organization [employer] Address [address] [address] Phone Care Team Providers Name Role Phone Deirdre Bedolla MD Primary Care Provider [phone] Reason for Visit Reason Comments Diabetes eye exam? Blood Pressure Encounter Details Date Type Department Care Team Description 05/11/2013 Office Visit [facility], Epidural abscess (Primary Dx); CLINIC FAMILY Deirdre Mosher MD Diabetes; MEDICINE [address] Hypertension; 2023 [facility] Hyperlipidemia; [place] [address] [place] [address] [phone] Social History Tobacco Use Types Packs/Day Years Used Date Smoking Tobacco: Never Smokeless Tobacco: Never Alcohol Use Standard Drinks/Week Comments No 0 (1 standard drink = 0.6 oz pure alcoho l) Sex Assigned at Date Recorded Not on file documented as of this encounter Last Filed Vital Signs Vital Sign Reading Time Taken Comments Blood Pressure 132/75 05/11/2013 10:30 AM RUG SETTER AXMINSTER Pulse 68 05/11/2013 10:30 AM RUG SETTER AXMINSTER Temperature - - Respiratory Rate - - Oxygen Saturation - - Inhaled Oxygen Concentration - - Weight 78.9 kg (174 lb) 05/11/2013 10:30 AM RUG SETTER AXMINSTER Height 166.4 cm (5' 5.5) 05/11/2013 10:30 AM RUG SETTER AXMINSTER Body Mass Index 28.51 05/11/2013 10:30 AM RUG SETTER AXMINSTER documented in this encounter Patient Instructions Patient InstructionsMahlartemio-Deirdre Cristobal MD - 05/11/2013 10:46 AM RUG SETTER AXMINSTER Start Tylenol #3 three times daily until your pharmacy can get the codeine in. While you are on that, decrease Tylenol use to 500mg 4 times daily. After that, take just the Codeine three times daily, (Not Tylenol with Codeine). You can go back to your regular use of Tylenol after that. Start Miralax once daily. See me in 3 months. SETTER AXMINSTER documented in this encounter Ordered Prescriptions Prescription Sig Dispensed Refills Start Date End Date codeine 30 MG tablet Take 1 Tab by mouth 90 Tab 0 201205/21/2013 three times a day. acetaminophen-codeine Acetaminophen should be 30 Tab 0 1 07/11/2012 05/20/2013 (TYLENOL #3) 300-30 MG limited to 4000 mg per per tablet day. Use TID. documented in this encounter Progress Notes Deirdre Bedolla MD - 05/12/2013 2:00 PM CST [facility] Patient Name: SIMON CASTILLO Date of Service: 05/11/2013 : 1935 Age: 77Y Sex: M DC Site MRN: Patient Loc/Room #: [facility] FP/ Provider: Deirdre Bedolla MD, Family Practice OFFICE NOTE SITE: [facility] SUBJECTIVE: Simon and his delightful are here today for followup of chronic pain. Simon hasan infected epidural abscess and has been really suffering with chronic pain. Recently gave him Tylenol No. 3 and he does feel like that helped, but he does use some Tylenol on top of it and is how much he can take. He has diabetes. Blood sugars are usually less than 100. Moods have been good. Blood pressure has been good. Lyrica made him goofy so he did not continue with that. PAST MEDICAL HISTORY: 1. Coronary artery disease with [place] in 1989. Right coronary stenting at that time and recent FL July 04, 2012 in [place] where he had 2 bare-metal stents placed. 2. Type 2 diabetes, off meds. 3. Reflux. 4. Hyperlipidemia. 5. Hypertension. 6. History of neck fracture. 7. Benign prostatic hypertrophy. 8. Erectile dysfunction. 9. History of hypokalemia. 10. History of epidural abscess, which was thought to require life long Keflex. ID has now taken himoff antibiotics, but he still has severe chronic pain with that. 11. Chronic hearing loss. SOCIAL HISTORY: Nonsmoker. REVIEW OF SYSTEMS: No fevers. Moods are good. OBJECTIVE: Height is 5'5-1/2, weight 174 pounds, blood pressure 132/75, pulse 68. Generally - pleasant, in no acute distress. HEENT - atraumatic, normocephalic. Conjunctivae are clear. Heart is regular. Lungs are clear. ASSESSMENT AND PLAN: 1. Epidural abscess and chronic pain. He has done pretty well with codeine even though that is on his allergy list. We will do Tylenol No. 3 and decreases his Tylenol use alone to less than 2 g a day for the next week. After that do regular codeine 30 mg t.i.d. scheduled and continue Tylenol as he hadbeen using. Start MiraLAX. He has seen his neurosurgeon who says after the first of the year he would maybe consider repeat surgery. He also has seen his airplane pilot helper, who did say it would be okay to be off the Plavix short-term, both of those notes are scanned. 2. Diabetes. Check A1c. 3. Hypertension. Blood pressure is good. 4. Hyperlipidemia and history of coronary disease. Lipids will be due in October. See me every 3 months. Deirdre Bedolla MD [facility] cc: /[facility] Job ID: [id number] /tlrts Document ID: [id number] SETTER AXMINSTER Deirdre Bedolla MD - 05/11/2013 1:24 PM CST This note has been dictated. SETTER AXMINSTER documented in this encounter Nursing Notes 05/11/2013 10:15 AM CST >> ASUNCION GARCIA LPN SatApr 29, 2013 11:12 AM This chart was prepped for visit by Asuncion Garcia LPN on 04/29/2013. documented in this encounter Plan of Treatment Not on filedocumented as of this encounter Procedures Procedure Name Priority Date/Time Associated Diagnosis Comme nts HEMOGLOBIN A1C Routine 05/11/2013 11:07 AM Diabetes Result s for this RUG SETTER AXMINSTER procedure are i n the results section . documented in this encounter Results A1C(HGB AIC) (05/11/2013 11:07 AM RUG SETTER AXMINSTER) athologist Signature A1C (HGB AIC) 5.3 4.0 - 6.0 [facility] Est Average 105 mg/dL [facility] Glucose [facility] Comment: According to ADA guidelines, the estim ed average glucose (eAG) will be calculated for all HgbA1c results. Specimen Anatomical Collection Method Collection Time Receive d Time (Source) Location / / Volume Laterality 05/11/2013 11:07 05/11/2013 AM RUG SETTER AXMINSTER 11:44 AM RUG SETTER AXMINSTER Deirdre Bedolla MD EC CHEMISTRY ORDERABLES A BN Performing Organization Address City/State/ZIP Code Phon e Number [facility] [address] [place] [address], [address] [address] LABORATORY [facility] [address] [place] [address] LABORATORY documented in this encounter Visit Diagnoses Diagnosis Epidural abscess - Primary Intracranial and intraspinal abscess of unspecified site Diabetes Type II or unspecified type diabetes cindy litus without mention of complication, not stated as uncontrolled Hypertension Unspecified essential hypertension Hyperlipidemia Other and unspecified hyperlipidemia Heart disease Heart disease, unspecified documented in this encounter Discontinued Medications Medication Sig Discontinue Reason Start Date End Date HYDROcodone-acetamin Take 1-2 Tabs by mouth Duplicate Medication 05/11/2013 ophen (LORTAB) 5-500 every four hours as MG per tablet needed for Pain. Acetaminophen should be limited to 4000 mg per day. pregabalin (LYRICA) 25 mg daily for 2 Side effects 04/10/201310/2012 25 MG capsule weeks, then 50 mg daily. documented as of this encounter Care Teams Babbitt Spinner Relationship Specialty Start Date End Date Deirdre Bedolla MD PCP - General Family Medicine 06/04/11 01/03/[address] [address] documented as of this encounter
--- OUTSIDE RECORDS SUMMARY | 2022-06-07 20:59 | XMS_ITS | Encounter Summary ---
:1935 Author Organization [employer] Address [address] [address] Phone Care Team Providers Name Role Phone Deirdre Bedolla MD Primary Care Provider [phone] Reason for Referral (Routine) Specialty Diagnoses / Procedures Referred By Contact Refer red To Contact [facility] 2023 [facility] [place] [phone] Referral ID Status Reason Start Date Expiration Date Visits Requ ested Visits Authorized Comments Reason for Referral: 1) Regular Care with 3 or more sub speci alists for significant medical conditions - urology, [facility], [facility], 2) Has diagnosis of 2 or more chronic co nditions, and poor clinical outcomes; currently not at quality targets Additional information: Very complex med ical needs, complications from back surgery, multiple specialists. TAL RECRUITER Reason for Visit Reason Onset Date Comments Care Coordination Program 08/19/2013 Referral/Enrol lment Encounter Details Date Type Department Care Team Description 08/19/2013 Telephone [facility]oma Care Coordination FAMILY MEDICINE Jessica Parish RN Program [facility] (Referral[facility]Enrollment) [place] [address] (Work) [phone] Social History Tobacco Use Types Packs/Day Years Used Date Smoking Tobacco: Never Smokeless Tobacco: Never Alcohol Use Standard Drinks/Week Comments No 0 (1 standard drink = 0.6 oz pure alcoho l) Sex Assigned at Date Recorded Not on file documented as of this encounter Miscellaneous Notes Telephone Encounter - Jessica Chua - 08/19/2013 4:00 PM CST Late Entry for 08/14/2013: Met with patient and his , Mary Ann, after appointment with Deirdre Bedolla MD on 08/14/2013. Reviewed Care Coordination program and billing practices associated with it. Patient does not have an ACO insurance and would self-pay, to which he agreed. Consent was signed and routed to scanning. Plan for life insurance underwriter to call the following week. Tier assignment tool completed and referral entered. 08/19/2013 4:01 PM - Called but no answer so left message on phone that life insurance underwriter would try calling nextweek. Subject: Care Coordination Post visit Reviewed notes from office visit with Deirdre Bedolla MD on 08/14/2013. Changes not made to Care Plan - care plan in progress Call placed to pt to discuss and review: 1. Spinal cord stimulator - had apt on Saturday 2. Referral to Dr Danielson, Infec.Disease in [facility] - Dr Danielson's office will call to schedule appointment. 3. follow up MRI in 3 months - not yet scheduled. Was given prescription for Valium to take prior to MRI. Pt did verbalize understanding of - Planned follow up: Dr Cristobal in 3 months (after MRI) - Need to schedule, sent message to schedulers to please call Bill. TAL RECRUITER documented in this encounter Plan of Treatment Not on filedocumented as of this encounter Visit Diagnoses Diagnosis Hypertension - Primary Unspecified essential hypertension Diabetes Type II or unspecified type diabetes cindy litus without mention of complication, not stated as uncontrolled Hyperlipidemia Other and unspecified hyperlipidemia Heart disease Heart disease, unspecified documented in this encounter Orders REFERRAL Count Last Ordered Date First Ordered Date APPT WITH CARE COORDINATION PROGRAM 1 08/19/2013 documented in this encounter Care Teams Press Breaker Relationship Specialty Start Date End Date Deirdre Bedolla MD PCP - General Family Medicine 06/04/11 01/03/[address] [address] documented as of this encounter
--- OUTSIDE RECORDS SUMMARY | 2022-06-07 20:59 | XMS_ITS | Encounter Summary ---
:1935 Author Organization [employer] Address [address] [address] Phone Care Team Providers Name Role Phone Deirdre Bedolla MD Primary Care Provider [phone] Jessica Chua RN Unavailable [phone] Dewey Ramey Unavailable Encounter Details Date Type Department Care Team Description 09/16/2013 Orders Only [facility] Joelle Chua (Primary Dx); [facility] Jessica Parish RN Hyperlipidemia 20[facility] [phone] [place] (Work) [place] [address] Social History Tobacco Use Types Packs/Day Years Used Date Smoking Tobacco: Never Smokeless Tobacco: Never Alcohol Use Standard Drinks/Week Comments No 0 (1 standard drink = 0.6 oz pure alcoho l) Sex Assigned at Date Recorded Not on file documented as of this encounter Progress Notes Jessica Chua - 09/16/2013 4:10 PM CDT Due for lipids in October and a1c in November. InViigo[employer] message sent to PCP to see if patient can do those labs at his pre-op apt on 10/05/2013, which he can. Orders entered. Will ask patient to come to apt fasting. documented in this encounter Plan of Treatment Not on filedocumented as of this encounter Results LIPID PROFILE (10/05/2013 11:32 AM CDT) athologist Signature Cholesterol 158 114 - 200 [facility] mg/dL [facility] Comment: Total Cholesterol Reference Ranges Desirable: ? <200 ?mg/dL Borderline High: ?? 200-239 mg/dL High: ?>239 ?mg/ dL TRIGLYCERIDE 111 10 - 200 mg/dL [facility] HDL CHOLESTEROL 43 40 - 60 mg/dL [facility] LDL- CALCULATED 93 mg/dL [facility] Comment: LDL Cholesterol Reference Ranges Optimal: ?<100 ? mg/dL Near Optimal: ? 100-129 ??mg/dL Borderline High: ??130-159 ??mg/dL High: ? 160-189 ??mg/dL Very High: ?>189 ? mg/dL Specimen Anatomical Collection Method Collection Time Receive d Time (Source) Location / / Volume Laterality 10/05/2013 11:32 10/05/2013 AM CDT 11:36 AM CDT Narrative [facility] - 10/05/2013 12:05 PM CDT Fasting Deirdre Bedolla MD EC CHEMISTRY ORDERABLES A BN Performing Organization Address City/State/ZIP Code Phon e Number [facility] [address] [place] [address] LABORATORY [facility] [address] [place] [address] LABORATORY A1C(HGB AIC) (10/05/2013 11:32 AM CDT) athologist Signature A1C (HGB AIC) 5.8 4.0 - 6.0 [facility] % [facility] Est Average 120 mg/dL [facility] Glucose [facility] Comment: According to ADA guidelines, the estimat ed average glucose (eAG) will be calculated for all HgbA1c results. Specimen Anatomical Collection Method Collection Time Receive d Time (Source) Location / / Volume Laterality 10/05/2013 11:32 10/05/2013 AM CDT 11:36 AM CDT Narrative [facility] - 10/05/2013 11:52 AM CDT Fasting Deirdre Bedolla MD EC CHEMISTRY ORDERABLES A BN Performing Organization Address City/State/ZIP Code Phon e Number [facility] [address] [place] [address] LABORATORY [facility] 2023 [place] [address] LABORATORY documented in this encounter Visit Diagnoses Diagnosis Diabetes - Primary Type II or unspecified type diabetes cindy litus without mention of complication, not stated as uncontrolled Hyperlipidemia Other and unspecified hyperlipidemia Pre-op exam - Primary Preoperative examination, unspecified Back pain Backache, unspecified Knee pain Pain in joint, lower leg Hypertension Unspecified essential hypertension Diabetes Type II or unspecified type diabetes cindy litus without mention of complication, not stated as uncontrolled Hyperlipidemia Other and unspecified hyperlipidemia documented in this encounter Care Teams Consulting Sme Relationship Specialty Start Date End Date Deirdre Bedolla, PCP - General Family Medicine 06/04/11 01/03/[address] [id number] Jessica Chua, RN RN Periodontist Family Medicine 09/04/13 11/29/14 Dewey Ramey Physician Other Pain Management 09/16/13 09/20/14 [facility] [address] [place] [phone] documented as of this encounter
--- OUTSIDE RECORDS SUMMARY | 2022-06-07 20:59 | XMS_ITS | Encounter Summary ---
:1935 Author Organization [employer] Address [address] [address] Phone Care Team Providers Name Role Phone Deirdre Bedolla MD Primary Care Provider [phone] Encounter Details Date Type Department Care Team Description 06/03/2013 Scanned - Medical [facility] HIS Elsewhere, Pcp Reports [address] [place] [address] Social History Tobacco Use Types [...] Comme nts EYE EXAM & TREATMENT Routine 05/21/2013 documented in this encounter Results EYE EXAM & TREATMENT (05/21/2013) Narrative This result has an attachment that is no t available. Pcp Elsewhere EC PROCEDURES documented in this encounter Visit Diagnoses Not on filedocumented in this encounter Care Teams Gem Stone Cutter Relationship Specialty Start Date End Date Deirdre Bedolla MD PCP - General Family Medicine 06/04/11 01/03/[address] [address] documented as of this encounter
--- OUTSIDE RECORDS SUMMARY | 2022-06-07 21:00 | XMS_ITS | Encounter Summary ---
:1935 Author Organization [employer] Address [address] [address] Phone Care Team Providers Name Role Phone Deirdre Bedolla MD Primary Care Provider [phone] Reason for Visit Reason Onset Date Comments Refill Request 12/02/2012 Encounter Details Date Type Department Care Team Description 12/02/2012 Refill [facility] HurleyJerry LPN Refill Request MEDICINE 2023 [place], [place] [id number] Social History Tobacco Use Types Packs/Day Years Used Date Smoking Tobacco: Never Smokeless Tobacco: Never Alcohol Use Standard Drinks/Week Comments No 0 (1 standard drink = 0.6 oz pure alcoho l) Sex Assigned at Date Recorded Not on file documented as of this encounter Ordered Prescriptions Prescription Sig Dispensed Refills Start Date End Date QUEtiapine (SEROQUEL) 25 TAKE ONE TABLET BY 30 Tab 5 12/10/2012 MG tablet MOUTH AT BEDTIME NEEDED FOR ANXIETY documented in this encounter Plan of Treatment Not on filedocumented as of this encounter Visit Diagnoses Not on filedocumented in this encounter Discontinued Medications Medication Sig Discontinue Reason Start Date End Date QUEtiapine (SEROQUEL) 25 TAKE ONE TABLET BY 12/01/2012 12/02/2012 MG tablet MOUTH AT BEDTIME NEEDED FOR ANXIETY documented as of this encounter Care Teams Relations Manager Relationship Specialty Start Date End Date Deirdre Bedolla MD PCP - General Family Medicine 06/04/11 01/03/[address] [id number] documented as of this encounter
--- OUTSIDE RECORDS SUMMARY | 2022-06-07 21:00 | XMS_ITS | Encounter Summary ---
:1935 Author Organization [employer] Address [address] [address] Phone Care Team Providers Name Role Phone Deirdre Bedolla MD Primary Care Provider [phone] Reason for Visit Reason Comments Refill Request Encounter Details Date Type Department Care Team Description 01/05/2013 Refill [facility] Mabel Bedolla Refill Request FAMILY MEDICINE MD Nomi 2023 [facility] eet [address] [address] [place], [place] [address] (Wo rk) Social History Tobacco Use Types Packs/Day Years Used Date Smoking Tobacco: Never Smokeless Tobacco: Never Alcohol Use Standard Drinks/Week Comments No 0 (1 standard drink = 0.6 oz pure alcoho l) Sex Assigned at Date Recorded Not on file documented as of this encounter Ordered Prescriptions Prescription Sig Dispensed Refills Start Date End Date pantoprazole (PROTONIX) TAKE ONE TABLET BY 30 Tab 10 07/201203/11/2013 40 MG tablet MOUTH ONE TIME DAILY simvastatin (ZOCOR) 10 MG TAKE ONE TABLET BY 30 Tab 10 03/11/2013 tablet MOUTH AT BEDTIME documented in this encounter Plan of Treatment Not on filedocumented as of this encounter Visit Diagnoses Not on filedocumented in this encounter Discontinued Medications Medication Sig Discontinue Reason Start Date End Date simvastatin (ZOCOR) 10 TAKE ONE TABLET BY 10/30/2012 01/05/2013 MG tablet MOUTH AT BEDTIME documented as of this encounter Care Teams Therapeutic Recreation Specialist Relationship Specialty Start Date End Date Deirdre Bedolla MD PCP - General Family Medicine 06/04/11 01/03/17[address] [address] documented as of this encounter
--- OUTSIDE RECORDS SUMMARY | 2022-06-07 21:00 | XMS_ITS | Encounter Summary ---
:1935 Author Organization [employer] Address [address] [address] Phone Care Team Providers Name Role Phone Deirdre Bedolla MD Primary Care Provider [phone] Reason for Visit Reason Comments Follow Up urgency, frequency / Detrol and Flomax Encounter Details Date Type Department Care Team Description 11/20/2012 Office Visit [facility] Tavo Ro, Urinary urgency (Primary Dx) ; [address] [facility] [place] [place] [address] 2023 [facility] [phone] [place], [place] [address] Social History Tobacco Use Types Packs/Day Years Used Date Smoking Tobacco: Never Smokeless Tobacco: Never Alcohol Use Standard Drinks/Week Comments No 0 (1 standard drink = 0.6 oz pure alcoho l) Sex Assigned at Date Recorded Not on file documented as of this encounter Last Filed Vital Signs Vital Sign Reading Time Taken Comments Blood Pressure 130/77 11/20/2012 11:41 AM CDT Pulse 66 11/20/2012 11:41 AM CDT Temperature - - Respiratory Rate - - Oxygen Saturation - - Inhaled Oxygen Concentration - - Weight 83.5 kg (184 lb) 11/20/2012 11:41 AM CDT stated Height 177.8 cm (5' 10) 11/20/2012 11:41 AM CDT stated Body Mass Index 26.4 11/20/2012 11:41 AM CDT documented in this encounter Patient Instructions Patient InstructionsWhTavo dwyer MD - 11/20/2012 12:21 PM CDT We are going to try to increase the detrol to 8 mg daily and see you back in 1 month documented in this encounter Ordered Prescriptions Prescription Sig Dispensed Refills Start Date End Date tolterodine ER (DETROL Take 2 Caps by mouth 60 Cap 12 02/03/2013 [place]) 4 MG 24 hour capsule one time a day. Swallow whole; do not crush, chew, or open tolterodine ER (DETROL Take 2 Caps by mouth 30 Cap 12 11/20/2012 [place]) 4 MG 24 hour one time a day. capsuleIndications: Swallow whole; do Urinary urgency, Urinary not crush, chew, or frequency open documented in this encounter Progress Notes Tavo Ro MD - 11/21/2012 1:29 PM CDT [facility] Patient Name: SIMON CASTILLO Date of Service: 11/20/2012 : 1935 Age: 77Y Sex: M DC Site MRN: Patient Loc/Room #: BRDUR/ Provider: Tavo Ro MD, Urology OFFICE NOTE SITE: [facility] SUBJECTIVE: Simon is here in followup. I reviewed my most recent note, which is from 1 month ago. He has severe irritative bladder symptoms, previously taken care of by Dr. Heaton. He had noted in the past being better on Detrol. Dr. Heaton most recently had him on VESIcare 10 mg a day and had him on terazosin 2 mg a day. He is having minimal accidents, just daytime frequency, for mostly small volume voids. This is all complicated by a recent and ongoing problem with meningitis. He was actually in thehospital for 3+ months, by his report on that, and of course an upper motor neuron disturbance like that could cause severe urgency and urgency incontinence, which is typically difficult to treat. He re ports no improvement of his symptoms with the change to Detrol and Flomax. He tolerates those medicines well, but he basically has International Prostate Symptom Score of 35, with both day and nighttime symptoms, the nighttime being the most concerning and most severe. Sometimes he will urinate every 10 minutes at night. He feels that he is getting empty when he goes. PHYSICAL EXAM: In general, he is in no acute distress. Alert, pleasant. Blood pressure 130/77. Pulseis 66. HEENT is normocephalic, atraumatic. Chest is clear. Abdomen is soft. Bladder - nonpalpable and nontender. Prostate exam was not repeated. Bladder ultrasound performed a half hour after he voided showed a residual of 78.3 mL, so he is probably leaving somewhere around 2 ounces in his bladder when he is done going, which of course is not outside of the normal range. IMPRESSION: Urgency and frequency with likely some underlying BPH. We will continue with the Flomax,and I am going to double the dose of Detrol to 8 mg a day. We will see him back in followup in a month. If we are not making progress, we are going to need to be much more proactive with him as his symptoms are so severe. In fact today I did offer him a catheter, which would take care of the problem immediately. Followup in a month. Tavo Ro MD [facility] Urology cc: Deirdre Bedolla MD /SCW Job ID: [id number] /[facility] Document ID: [id number] Tavo Ro MD - 11/20/2012 12:19 PM CDT This note has been dictated. Cristina Guzman LPN - 11/20/2012 11:44 AM CDT Fall Risk Yes: Walker documented in this encounter Plan of Treatment Not on filedocumented as of this encounter Procedures Procedure Name Priority Date/Time Associated Diagnosis Comme nts URINE CAPACITY Routine 11/20/2012 12:22 PM Urinary ur gency MEASURE CDT Urinary frequency URINALYSIS, REFLEX Routine 11/20/2012 11:22 AM Urinary u rgency Results for this TO CULTURE CDT Urinary frequency procedure are in the results section. documented in this encounter Results UA TO CULTUR PRN (11/20/2012 11:22 AM CDT) athologist Signature Type CVMS [facility] Color ORANGE [facility] Appearance Clear [facility] Urine Specific 1.020 [facility] Urine pH 5.0 [facility] Urine Leukocyte Neg [facility] Urine Nitrites Neg [facility] Urine Protein Neg mg/dL [facility] Urine Glucose Neg mg/dL [facility] Urine Ketone Neg mg/dL [facility] Comment: URINALYSIS REFERENCE RANGES ? MICROSCOPIC REFERENCE ?RANGES Appearance: ?Clear ?WBC'S: ? 0-8/HPF Color: ? Yellow ? RBC'S: ? 0-3/HPF Specific [place]: ??1.003-1.035 ?Hyaline Casts: 0-3/LPF pH: ?5.0-8.0 Protein: ? Neg-Trace Glucose: ? Neg Ketone: ?Neg Blood: ? Neg Nitrite: ? Neg Leuk Esterase: ? Neg Microscopic Exam: Not Indicated [facility] Comment: Please Note: A routine urine not reflexing to a micro scopic exam automatically means the dipstick blood t est is negative. Urine WBC's Not Indicated /HPF [facility] Urine RBC's Not Indicated /HPF [facility] Urine Culture Reflex Not Indicated [facility] Specimen Anatomical Collection Method Collection Time Receive d Time (Source) Location / / Volume Laterality [facility] 11/20/2012 11:22 11/20/2012 [facility] AM CDT 11:22 AM CD T SPECIMEN OBTAINED BY CLEAN CATCH PROCEDURE / Unknown Tavo Ro MD EC URINE ORDERABLES Performing Organization Address City/State/ZIP Code Phon e Number [facility] documented in this encounter Visit Diagnoses Diagnosis Urinary urgency - Primary Urgency of urination Urinary frequency documented in this encounter Discontinued Medications Medication Sig Discontinue Reason Start Date End Date tolterodine ER (DETROL Take 1 Cap by mouth 10/22/2012 11/20/2012 [place]) 4 MG 24 hour capsule one time a day. Swallow whole; do not crush, chew, or open tolterodine ER (DETROL Take 2 Caps by mouth Adjustment of dose 11/0511/20/2012 [place]) 4 MG 24 hour one time a day. capsuleIndications: Swallow whole; do Urinary urgency, Urinary not crush, chew, or frequency open documented as of this encounter Orders Procedures Count Last Ordered Date First Ordered Date US URINE CAPACITY MEASURE 1 11/20/2012 documented in this encounter Care Teams Spinning Bath Person Relationship Specialty Start Date End Date Deirdre Bedolla MD PCP - General Family Medicine 06/04/11 01/03/[address] [address] documented as of this encounter
--- OUTSIDE RECORDS SUMMARY | 2022-06-07 21:00 | XMS_ITS | Encounter Summary ---
:1935 Author Organization [employer] Address [address] [address] Phone Care Team Providers Name Role Phone Deirdre Bedolla MD Primary Care Provider [phone] Reason for Visit Therapy (Routine) - Closed Specialty Diagnoses / Procedures Referred By Contact Refer red To Contact Physical Therapy Diagnoses Urinary bladder incontinence Urinary Incontenence Tavo oR MD Belfiori, Annette M, Procedures [id number] 2023 [facility] [address] [place] [address] [place] [id number] Phone: Fax: Referral ID Status Reason Start Date Expiration Date Visits Requ ested Visits Authorized [id number] Closed 02/18/2013 03/04/2013 2 2 Encounter Details Date Type Department Care Team Description 02/18/2013 Office Visit [facility] Laurence Rajput [facility] er physical therapy (Primary Dx); Center Event Producer M, PT Urge incontinence; - Rehab Outpt [address] [facility] Urinary frequency; [address] [place] [address] [place], [place] [id number] Social History Tobacco Use Types Packs/Day Years Used Date Smoking Tobacco: Never Smokeless Tobacco: Never Alcohol Use Standard Drinks/Week Comments No 0 (1 standard drink = 0.6 oz pure alcoho l) Sex Assigned at Date Recorded Not on file documented as of this encounter Progress Notes Laurence Rajput - 02/19/2013 7:32 AM CDT [facility] Patient Name: SIMON CASTILLO Date of Service/Report Date: 02/18/2013 : 1935 Age: 77Y Sex: M DC Site MRN: Patient Loc/Room #: BRSJPTOP/ Provider: Laurence Rajput PT, Physical Therapy REHABILITATION EVALUATION SITE: [facility] I CERTIFY THE NEED FOR THESE SERVICES FURNISHED UNDER THIS PLAN OF TREATMENT AND WHILE UNDER MY CARE Tavo Ro MD Date DIAGNOSIS: Urgency, incontinence. TREATMENT DIAGNOSIS: Urgency, incontinence, frequency. CERTIFICATION DATES: 02/18/2013 through 05/21/2013. HISTORY OF CURRENT CONDITION: Patient reports history of 2 years of having problems with a, hyperactive bladder?? with strong urgency and frequency with leakage due to same. Reports he has tried several medications, is currently taking another incontinence med. Med list has him on oxybutynin. Reports voiding sometimes every 15 to 30 minutes, is up once to twice a night, drinks about one glass of water a day to try to decrease urinary leakage. Has gallardo in the door urgency, as well as urgency and leakage with running water. Reports that when he feels like he has to go, he needs to go quickly to the bathroom. Wears diapers. Notices some leakage on the way to the bathroom at times. Takes along clothing changes with him at times when going out. Denies bladder infections. Does not feel like the medications have been helpful. Past medical history very significant for multiple problems. 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 Now has, since this incident, severe pain, especially in his right hip and thigh, and needs to use a walker for ambulation due to these problems, and was unable to lie supine during this session. Needed to be very briefly side-lying and then was treated sitting. Patient's hospital chart also includes he has had shoulder pain and he has had past PT for that, diabetes, impotence, hypertension, colon polyps, hyperlipidemia. However, the patient does report that the bladder hyperactivity was present prior to his meningitis. See chart for medications. DIAGNOSTIC IMAGING/TESTS: In regard to this, no specific testing. SOCIAL AND WORK HISTORY: The patient is and lives in his own home with his , who did accompanying him to the session today, and assisted with history, etc. CURRENT FUNCTIONAL BASELINE: The patient is limited in many areas. Has ambulation and gait impairment, has chronic pain on the pelvic floor questionnaire, impact questionnaire scored 12 out of 21 in the bladder urine category, or 57% disability as related to his incontinence. The patient goals of treatment are certainly to improve his bladder control. PRECAUTIONS/BARRIERS TO LEARNING: The patient is hard of hearing but was able to hear me with just aslight raising of my voice. The patient is quite anxious, but the patient was able to follow instructions and participate in the treatment program. TESTS AND MEASURES: We had difficulty positioning this patient due to his right hip and thigh pain, but again we did position briefly side-lying to apply his electrodes and then the rest of the treatment was done with him in the sitting position. He did ambulate independently with a walker. He needed some assistance going from the mat table to a seated position. At baseline had some difficulty relaxing the pelvic floor. With instructions and some tactile cueing, he was able to perform fair-quality Kegels, though had difficulty with relaxing pelvic floor at times, but was able to do several repetitions of Kegels with instructions. I also worked on diaphragmatic breathing with this patient to try todo decrease overall muscle tone and anxiety. The patient did report a pain level of a 10 in his right hip and thigh on this date. CLINICAL IMPRESSION: Patient experiencing severe problems with urgency, frequency, and incontinence due to same, impacting quality of life in many ways. SHORT-TERM GOALS: For the patient to do independent and correct Kegel exercises in 2 weeks. LONG-TERM GOALS: 1. Decrease frequency of voiding to every 1 to 2 hours during the day. 2. Decrease leakage of urine with urgency symptoms. 3. Decreased use of and need for incontinence products. Goals to be met in 2 to 3 months. FREQUENCY AND DURATION: Is 2 to 6 visits in a 2 to 3 month period. INTERVENTIONS: To include biofeedback, guided Kegels, deep breathing exercises, pelvic rotator cuff strengthening exercises, with home program. DISCHARGE PLAN: Criteria for discharge - when the patient reaches established functional goals, patient declines further treatment, is unable to progress toward goals because of complications or lack of participation, or therapist determines that the patient will no longer benefit from rehab services. Today's treatment included evaluation 25 minutes, education, and did instruct patient to try to drink more water. Exercise instruction of 25 minutes, working on Kegels, as well with diaphragmatic breathing. Issued written home program to focus on doing quick Kegels with urgency and frequency symptoms. TOTAL TREATMENT TIME: 10:15 a.m. to 11:15 a.m. Benefits, risks, and alternatives to treatment were reviewed with this patient. Plan of care and goals have been discussed with patient and . Laurence Rajput, PT [facility] Physical Therapy cc: /AMB Job ID: [id number] /jm Document ID: [id number] Laurence Rajput - 02/18/2013 3:42 PM CDT .This note has been dictated. FUNCTIONAL REPORTING Self Care Current Status (G8987): At least 40 percent but less than 60 percent impaired, limited or restricted Self Care Goal Status (G8988): At least 40 percent but less than 60 percent impaired, limited or restricted Level of severity determination based upon subjective and objective data obtained from: Score: Pelvic floor Impact questionnaire 06/27 Today's treatment consisted of: home program, therapeutic exercise and evaluation. 2 units 15789,1 unit 24851. documented in this encounter Plan of Treatment Not on filedocumented as of this encounter Procedures Procedure Name Priority Date/Time Associated Diagnosis Comme nts PHYS THERAPY EVALUATION Routine 02/18/2013 3:42 PM Other Physical Therapy CDT Urge incontinenc e Urinary frequenc y Muscle weakness THERAPEUTIC EXERCISES Routine 02/18/2013 3:42 PM Other P hysical Therapy CDT Urge incontinenc e Urinary frequenc y Muscle weakness documented in this encounter Visit Diagnoses Diagnosis Other physical therapy - Primary Urge incontinence Urinary frequency Muscle weakness Muscle weakness (generalized) documented in this encounter Orders Procedures Count Last Ordered Date First Ordered Date PHYS THERAPY EVALUATION 1 02/18/2013 THERAPEUTIC EXERCISES 1 02/18/2013 documented in this encounter Care Teams Panel Laminator Relationship Specialty Start Date End Date Deirdre Bedolla MD PCP - General Family Medicine 06/04/11 01/03/[address] [address] documented as of this encounter
--- OUTSIDE RECORDS SUMMARY | 2022-06-07 21:00 | XMS_ITS | Encounter Summary ---
:1935 Author Organization [employer] Address [address] [address] Phone Care Team Providers Name Role Phone Deirdre Bedolla MD Primary Care Provider [phone] Reason for Visit Reason Comments Refill Request Encounter Details Date Type Department Care Team Description 12/01/2012 Refill [facility] Mabel Bedolla Refill Request [facility] MD [facility] [address] [address] [place], [place] [address] (Wo rk) Social History Tobacco Use Types [...] 25 TAKE ONE TABLET BY 30 Tab 11 12/02/2012 MG tablet MOUTH AT BEDTIME NEEDED FOR ANXIETY documented in this encounter Plan of Treatment Not on filedocumented as of this encounter Visit Diagnoses Not on filedocumented in this encounter Discontinued Medications Medication Sig Discontinue Reason Start Date End Date QUEtiapine (SEROQUEL) 25 TAKE ONE TABLET BY 10/30/2012 12/01/2012 MG tablet MOUTH AT BEDTIME FOR ANXIETY documented as of this encounter Care Teams Strategy Associate Relationship Specialty Start Date End Date Deirdre Bedolla MD PCP - General Family Medicine 06/04/11 01/03/[address] [address] documented as of this encounter
--- OUTSIDE RECORDS SUMMARY | 2022-06-07 21:00 | XMS_ITS | Encounter Summary ---
:1935 Author Organization [employer] Address [address] [address] Phone Care Team Providers Name Role Phone Deirdre Bedolla MD Primary Care Provider [phone] Reason for Visit Reason Comments Follow Up Encounter Details Date Type Department Care Team Description 03/11/2013 Office Visit [facility] Epidural abscess (Primary Dx); CLINIC FAMILY Deirdre Mosher MD Overactive bladder MEDICINE 2023 [place] [address] [place], [place] [address] [phone] Social History Tobacco Use Types Packs/Day Years Used Date Smoking Tobacco: Never Smokeless Tobacco: Never Alcohol Use Standard Drinks/Week Comments No 0 (1 standard drink = 0.6 oz pure alcoho l) Sex Assigned at Date Recorded Not on file documented as of this encounter Last Filed Vital Signs Vital Sign Reading Time Taken Comments Blood Pressure 95/57 03/11/2013 9:10 AM CDT Pulse 67 03/11/2013 9:10 AM CDT Temperature - - Respiratory Rate - - Oxygen Saturation - - Inhaled Oxygen Concentration - - Weight 78.5 kg (173 lb) 03/11/2013 9:10 AM CDT Height 166.4 cm (5' 5.5) 03/11/2013 9:10 AM CDT Body Mass Index 28.35 03/11/2013 9:10 AM CDT documented in this encounter Patient Instructions Patient InstructionsMaDeirdre Reinoso MD - 03/11/2013 9:36 AM CDT 1) Increase Gabapentin slowly to 3 pills three times daily. 2) Stop Tramadol. Stop Hydrocodone. Stop Seroquel. 3) Try Tylenol #3 every 4 hours as needed for pain. You may take 2 at a time, max Tylenol dose 4000 mg/day. If this does not agree with Bill, call me and we can stop it and re-start Tramadol. If it does agree, let me know how much you are using and we can get a refill. 4) Decrease Amlodipine to 5mg daily. You can cut the pills in half that you have left, but your nextbottle will be for a lower dose. 5) See me in 2 months. documented in this encounter Ordered Prescriptions Prescription Sig Dispensed Refills Start Date End Date amLODIPine (NORVASC) 5 Take 1 Tab by mouth one 90 Tab 3 03/11/2013 03/11/2014 MG tablet time a day. oxybutynin SR Take 1 Tab by mouth one 90 Tab 3 3 04/02/2014 (DITROPAN XL) 15 MG 24 time a day. Do not hour crush. tabletIndications: Overactive bladder pantoprazole Take 1 Tab by mouth one 90 Tab 3 03/11/2013 04/06/2013 (PROTONIX) 40 MG time a day. Do not tablet crush. simvastatin (ZOCOR) 10 Take 1 Tab by mouth at 90 Tab 3 0 03/11/2013 04/06/2013 MG tablet bedtime. acetaminophen-codeine Take 1 Tab by mouth 30 Tab 0 03/1103/16/2013 (TYLENOL #3) 300-30 MG every four hours as per tablet needed for Pain. Acetaminophen should be limited to 4000 mg per day. gabapentin (NEURONTIN) Slowly increase to 3 810 Cap 1 10/201210/05/2013 300 MG capsule pills TID. documented in this encounter Progress Notes Deirdre Bedolla MD - 03/12/2013 3:55 PM CDT [facility] Patient Name: SIMON CASTILLO Date of Service: 03/11/2013 : 1935 Age: 77Y Sex: M DC Site MRN: Patient Loc/Room #: [facility] FP/ Provider: Deirdre Bedolla MD, Family Practice OFFICE NOTE SITE: [facility] SUBJECTIVE: Joe is here today for followup of chronic pain. He has a history of an epidural abscessand has been in just a tremendous amount of pain. He has been intolerant of all narcotics. He is currently on tramadol, which helps very little, and gabapentin, which helps some. The pain is not in theback as much as it used to be. It is really more now in his right leg. It is about an 8 out of 10. Never really gets any better. He tried hydrocodone after I saw him, but that made him disoriented. He was saying strange things and they just could not tolerate that. He currently is doing 4 tramadol a day, 2 in the morning, 1 at supper, 1 at night, and it does not really seem to do anything. They did see Neurosurgery recently and are in the process of trying to get a spinal cord stimulator. Diabetes is good. Heart disease has been good. PAST MEDICAL HISTORY: 1. Coronary artery disease with SC 1989 and right coronary stenting at that time. Then recent SC on July 04, 2012, in [place] where he had 2 bare- metal stents placed. 2. Type 2 diabetes, off meds. 3. Reflux. 4. Hyperlipidemia. 5. Hypertension. 6. History of neck fracture. 7. Benign prostatic hypertrophy. 8. Erectile dysfunction. 9. History of hypokalemia. 10. 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 ID now has taken him off antibiotics, but he does still have severe chronic pain with that. 11. Chronic hearing loss. SOCIAL HISTORY: still doing all of the caregiving, really no change there. REVIEW OF SYSTEMS: He walks with a walker, is tremendously weak, but PT does not feel like he is able to stay on track enough to work with him. Moods have still been okay. EXAM: Height is 65-1/2, weight 173, blood pressure 95/57, pulse is 67. Generally - pleasant, no acute distress. HEENT - head atraumatic, normocephalic. Conjunctivae are clear. Heart is regular. Lungs are clear. No back tenderness pinpoint today. ASSESSMENT AND PLAN: 1. 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 He is intolerant of all narcotics so far. Will try Tylenol #3 and see if that is a little bit more mild. He does carry that as an allergy from 30 years ago, but he believes it was more of an intolerance. I only gave them 30, happy to give them more if they need to. Increase Neurontin slowly to 300 mg 3 pills t.i.d. 2. Coronary artery disease. Blood pressure is a little on the low side. If that remains, may have toback off on his Norvasc. I did decrease his amlodipine to 5 mg today on account of low blood pressures. 3. Type 2 diabetes. A1c was good February 03, not due again until July. Lipids due in October. 4. History of delirium. He has been on Seroquel and I think we could stop that. See me again in 2 months. Deirdre Bedolla MD [facility] Practice cc: /GARRETT Job ID: [id number] /reji/kris (status) Document ID: [id number] Farhana Hurley LPN - 03/11/2013 9:12 AM CDT Fall Risk Yes: Walker documented in this encounter Nursing Notes 03/11/2013 9:15 AM CDT >> ASUNCION MIRANDA LPN [facility] Feb 26, 2013 3:39 PM This chart was prepped for visit by Asuncion Miranda LPN on 02/26/2013. documented in this encounter Plan of Treatment Not on filedocumented as of this encounter Visit Diagnoses Diagnosis Epidural abscess - Primary Intracranial and intraspinal abscess of unspecified site Overactive bladder Hypertonicity of bladder documented in this encounter Discontinued Medications Medication Sig Discontinue Reason Start Date End Date traMADol (ULTRAM) 50 MG TAKE ONE OR TWO Changed to an 12/20/2012 03/11/2013 tablet TABLETS BY MOUTH alternate therapy TWICE DAILY NEEDED FOR PAIN QUEtiapine (SEROQUEL) Take 0.5 Tabs by Changed to an 12/10/2012 0 03/11/2013 25 MG tablet mouth at bedtime. alternate therapy TAKE ONE TABLET BY MOUTH AT BEDTIME NEEDED FOR ANXIETY amLODIPine (NORVASC) 10 TAKE ONE TABLET BY Changed to an 11/04/2012 03/11/2013 MG tablet MOUTH ONE TIME alternate therapy DAILY traMADol (ULTRAM) 50 MG 1-2 pills tid prn Changed to an 02/03/2013 03/11/2013 tablet alternate therapy pantoprazole (PROTONIX) Take 1 Packet by Changed to an 10/10/2012 03/11/2013 40 MG PACK mouth one time a alternate therapy day. gabapentin (NEURONTIN) Take 1 Cap by 02/03/201310/2012 300 MG capsule mouth three times a day. 1 in AM, 2 at noon, 2 at night. simvastatin (ZOCOR) 10 TAKE ONE TABLET BY 01/05/2013 03/11/2013 MG tablet MOUTH AT BEDTIME pantoprazole (PROTONIX) TAKE ONE TABLET BY 01/05/2013 03/11/2013 40 MG tablet MOUTH ONE TIME DAILY oxybutynin SR (DITROPAN Take 1 Tab by 12/31/201210/2012 XL) 15 MG 24 hour mouth one time a tabletIndications: day. Do not crush. Overactive bladder documented as of this encounter Care Teams Precision Honer Relationship Specialty Start Date End Date Deirdre Bedolla MD PCP - General Family Medicine 06/04/11 01/03/[address] [address] documented as of this encounter
--- OUTSIDE RECORDS SUMMARY | 2022-06-07 21:00 | XMS_ITS | Encounter Summary ---
:1935 Author Organization [employer] Address [address] [address] Phone Care Team Providers Name Role Phone Deirdre Bedolla MD Primary Care Provider [phone] Reason for Visit Reason Comments Erroneous encounter-disregard Encounter Details Date Type Department Care Team Description 11/05/2012 Notes [facility] Danna Cervantes , Devaughn GI REINA encounter-disregard 2023 [place], [place] [address] Social History Tobacco Use Types Packs/Day Years Used Date Smoking Tobacco: Never Smokeless Tobacco: Never Alcohol Use Standard Drinks/Week Comments No 0 (1 standard drink = 0.6 oz pure alcoho l) Sex Assigned at Date Recorded Not on file documented as of this encounter Progress Notes Danna Cervantes LPN - 11/05/2012 2:16 PM CDT Duplicate documented in this encounter Plan of Treatment Not on filedocumented as of this encounter Visit Diagnoses Not on filedocumented in this encounter Care Teams Retail Assistant Relationship Specialty Start Date End Date Deirdre Bedolla MD PCP - General Family Medicine 06/04/11 01/03/[address]23 [address], [place] [address] documented as of this encounter
--- OUTSIDE RECORDS SUMMARY | 2022-06-07 21:00 | XMS_ITS | Encounter Summary ---
:1935 Author Organization [employer] Address [address] [address] Phone Care Team Providers Name Role Phone Deirdre Bedolla MD Primary Care Provider [phone] Reason for Visit Reason Comments Refill Request Encounter Details Date Type Department Care Team Description 11/26/[address] [facility] Mabel Bedolla Refill Request [facility] MD [facility] [address] [address] [place], [place] [address] (Wo rk) Social History Tobacco Use Types [...] (ULTRAM) 50 MG TAKE ONE OR TWO 120 Tab 0 013 12/10/2012 tablet TABLETS BY MOUTH TWICE DAILY NEEDED FOR PAIN documented in this encounter Plan of Treatment Not on filedocumented as of this encounter Visit Diagnoses Not on filedocumented in this encounter Discontinued Medications Medication Sig Discontinue Reason Start Date End Date traMADol (ULTRAM) 50 MG 1-2 po bid prn 10/27/2012 tablet pain. documented as of this encounter Care Teams Aerial Gunner Superintendent Relationship Specialty Start Date End Date Deirdre Bedolla MD PCP - General Family Medicine 06/04/11 01/03/[address] [address] documented as of this encounter
--- OUTSIDE RECORDS SUMMARY | 2022-06-07 21:00 | XMS_ITS | Encounter Summary ---
:1935 Author Organization [employer] Address [address] [address] Phone Care Team Providers Name Role Phone iRma Bedolla MD Primary Care Provider [phone] Reason for Visit Reason Onset Date Comments Other 03/25/2013 Encounter Details Date Type Department Care Team Description 03/25/2013 Telephone [facility] FAMILY HurleyJerry LPN Other MEDICINE 2023 [place], [place] [address] Social History Tobacco Use Types Packs/Day Years Used Date Smoking Tobacco: Never Smokeless Tobacco: Never Alcohol Use Standard Drinks/Week Comments No 0 (1 standard drink = 0.6 oz pure alcoho l) Sex Assigned at Date Recorded Not on file documented as of this encounter Miscellaneous Notes Telephone Encounter - Farhana Hurley LPN - 03/25/2013 3:31 PM CDT Message copied by FARHANA HURLEY on SatMar 25, 2013 3:31 PM ------ Message from: RIMA JONES Created: SatMar 25, 2013 3:17 PM Contact: - farheen The kind of meningitis he had is different than the kind of meningitis young people get wit the rash, but he can certainly go to urgent care to have it looked at tonight if they are really worried, orwe can add them in Saturday. ----- Message ----- From: Farhana Hurley LPN Sent: 03/25/2013 3:13 PM To: Rima Bedolla MD ----- Message ----- From: Adri Banks Sent: 03/25/2013 2:25 PM To: [facility] Amanda Cristobal Date: 03/25/2013 Time: 2:26 PM May we leave a message: unknown Patient's Date of : 1935 Person Calling: Gabriele zhong Phone Number: Home phone [phone] (home) Reason for call: Patient has a rash and are concerned with it since he had meningitis before. Please call to discuss. Allergies: -- Codeine -- Penicillins Thanks Adri Banks Call Center Ext. [phone] ------ documented in this encounter Plan of Treatment Not on filedocumented as of this encounter Visit Diagnoses Not on filedocumented in this encounter Care Teams Roll Icer Relationship Specialty Start Date End Date Rima Bedolla MD PCP - General Family Medicine 06/04/11 01/03/[address] [address] documented as of this encounter
--- OUTSIDE RECORDS SUMMARY | 2022-06-07 21:00 | XMS_ITS | Encounter Summary ---
:1935 Author Organization [employer] Address [address] [address] Phone Care Team Providers Name Role Phone Deirdre Bedolla MD Primary Care Provider [phone] Reason for Visit Reason Comments Other prior auth for Klor-Con camryn ed Encounter Details Date Type Department Care Team Description 11/10/2012 Notes [facility] Danna Cervantes , Other (prior auth for GI TUTORIAL LABORATORY SUPERVISOR Klor-Con denied) [address] [facility] [place], [place] [address] Social History Tobacco Use Types Packs/Day Years Used Date Smoking Tobacco: Never Smokeless Tobacco: Never Alcohol Use Standard Drinks/Week Comments No 0 (1 standard drink = 0.6 oz pure alcoho l) Sex Assigned at Date Recorded Not on file documented as of this encounter Progress Notes Danna Cervantes LPN - 11/10/2012 9:11 AM CDT Prior auth for Klor-Con denied. This is drug is not eligible under Medicare Part D Plan. Info sent to Dr Cristobal and patients pharmacy. documented in this encounter Plan of Treatment Not on filedocumented as of this encounter Visit Diagnoses Not on filedocumented in this encounter Care Teams Speed Runner Relationship Specialty Start Date End Date Deirdre Bedolla MD PCP - General Family Medicine 06/04/11 01/03/[address] [place] [address] documented as of this encounter
--- OUTSIDE RECORDS SUMMARY | 2022-06-07 21:00 | XMS_ITS | Encounter Summary ---
:1935 Author Organization [facility] Address [address] [address] Phone Care Team Providers Name Role Phone Deirdre Bedolla MD Primary Care Provider [phone] Reason for Visit Reason Onset Date Comments Refill Request 02/02/2013 Encounter Details Date Type Department Care Team Description 02/02/2013 Refill [facility] benito Ghotra LPN Refill Request MEDICINE [address] [place], [place] [address] Social History Tobacco Use Types Packs/Day Years [...] on filedocumented in this encounter Care Teams Religious Ritual Slaughterer Relationship Specialty Start Date End Date Deirdre Bedolla MD PCP - General Family Medicine 06/04/11 01/03/[address] [address] documented as of this encounter
--- OUTSIDE RECORDS SUMMARY | 2022-06-07 21:00 | XMS_ITS | Encounter Summary ---
:1935 Author Organization [facility] Address [address] [place] [address] Phone Care Team Providers Name Role Phone Deirdre Bedolla MD Primary Care Provider [phone] Reason for Visit Reason Onset Date Comments Medication Check 11/25/2012 Encounter Details Date Type Department Care Team Description 11/25/2012 Telephone [facility] Remedios Baum, Medication Check [address] [place], [place] [address] Social History Tobacco Use Types Packs/Day Years Used Date Smoking Tobacco: Never Smokeless Tobacco: Never Alcohol Use Standard Drinks/Week Comments No 0 (1 standard drink = 0.6 oz pure alcoho l) Sex Assigned at Date Recorded Not on file documented as of this encounter Miscellaneous Notes Telephone Encounter - Remedios Baum - 11/26/2012 10:01 AM CDT PA was sent to Danna Cervantes to be completed. Telephone Encounter - Cristina Villalobos PA-C - 11/26/2012 9:45 AM CDT Lets try for a PA. He appears to have a pretty severe case Telephone Encounter - Remedios Baum - 11/25/2012 10:57 AM CDT wanted pt to increase Detrol 4 mg to twice daily. Pt's insurance denied and would like a PA. Should we initiate a PA or is there another medication the pt can try? Please Advise. documented in this encounter Plan of Treatment Not on filedocumented as of this encounter Visit Diagnoses Not on filedocumented in this encounter Care Teams Chuck Splitter Relationship Specialty Start Date End Date Deirdre Bedolla MD PCP - General Family Medicine 06/04/11 01/03/[address] [address] documented as of this encounter
--- OUTSIDE RECORDS SUMMARY | 2022-06-07 21:00 | XMS_ITS | Encounter Summary ---
:1935 Author Organization [employer] [facility] Address [address] [address] Phone Care Team Providers Name Role Phone Rima Bedolla MD Primary Care Provider [phone] Reason for Visit Reason Onset Date Comments Other 11/07/2012 Encounter Details Date Type Department Care Team Description 11/07/2012 Telephone [facility] FAMILY HurleyJerry LPN Other MEDICINE 2023 [place], [place] [address] Social History Tobacco Use Types Packs/Day Years Used Date Smoking Tobacco: Never Smokeless Tobacco: Never Alcohol Use Standard Drinks/Week Comments No 0 (1 standard drink = 0.6 oz pure alcoho l) Sex Assigned at Date Recorded Not on file documented as of this encounter Miscellaneous Notes Telephone Encounter - Farhana Hurley LPN - 11/07/2012 3:15 PM CDT Message copied by FARHANA HURLEY on SatNovember 07, 2012 3:15 PM ------ Message from: RIMA JONES Created: SatNovember 07, 2012 2:57 PM Contact: Mary Ann wrote ----- Message ----- From: Farhana Hurley LPN Sent: 11/07/2012 2:30 PM To: Rima Bedolla MD Will you write a note stating he was in the hospital/fci for extended period of time? (99 days) Need note to get refund for their trip to [place] as they will not be going at this time. Faxto [phone] attn Juan Carlos case #[id number]. ----- Message ----- From: Tari Contreras Sent: 11/07/2012 1:31 PM To: [facility] Amanda Cristobal Date: 11/07/2012 Time: 1:32 PM May we leave a message: yes Patient's Date of : 1935 Person Calling: Mary Ann () Phone Number: Home phone [phone] (home) Reason for call: Mary Ann would like to speak with Farhana Montes Allergies: -- Hillary Marc ext [phone] ------ documented in this encounter Plan of Treatment Not on filedocumented as of this encounter Visit Diagnoses Not on filedocumented in this encounter Care Teams Assistant Nurse Manager Relationship Specialty Start Date End Date Rima Bedolla MD PCP - General Family Medicine 06/04/11 01/03/[address] [address] documented as of this encounter
--- OUTSIDE RECORDS SUMMARY | 2022-06-07 21:00 | XMS_ITS | Encounter Summary ---
:1935 Author Organization [facility] Address [address] [address] Phone Care Team Providers Name Role Phone Deirdre Bedolla MD Primary Care Provider [phone] Reason for Visit Reason Comments Refill Request Encounter Details Date Type Department Care Team Description 12/20/2012 Refill [facility] Mabel Bedolla Refill Request [facility]INE MD N[facility] [address] [address] [place], [place] [address] (Wo rk) Social History Tobacco Use Types [...] ONE OR TWO 120 Tab 0 013 03/11/2013 tablet TABLETS BY MOUTH TWICE DAILY NEEDED FOR PAIN documented in this encounter Plan of Treatment Not on filedocumented as of this encounter Visit Diagnoses Not on filedocumented in this encounter Care Teams College Service Officer Relationship Specialty Start Date End Date Deirdre Bedolla MD PCP - General Family Medicine 06/04/11 01/03/[address] [address] documented as of this encounter
--- OUTSIDE RECORDS SUMMARY | 2022-06-07 21:00 | XMS_ITS | Encounter Summary ---
:1935 Author Organization [employer] [facility] Address [address] [address] Phone Care Team Providers Name Role Phone Deirdre Bedolla MD Primary Care Provider [phone] Reason for Visit Reason Comments Neurologic Problem 2 week follow up meningitis Encounter Details Date Type Department Care Team Description 02/03/2013 Office Visit [facility] Raúl Bedolla (Primary Dx); CLINIC FAMILY Deirdre Mosher MD Diabetes; MEDICINE [address] Hypertension; 2023 [facility] Heart disease; [place] [address] [place] [address] [phone] Social History Tobacco Use Types Packs/Day Years Used Date Smoking Tobacco: Never Smokeless Tobacco: Never Alcohol Use Standard Drinks/Week Comments No 0 (1 standard drink = 0.6 oz pure alcoho l) Sex Assigned at Date Recorded Not on file documented as of this encounter Last Filed Vital Signs Vital Sign Reading Time Taken Comments Blood Pressure 134/79 02/03/2013 9:01 AM CDT Pulse 72 02/03/2013 9:01 AM CDT Temperature - - Respiratory Rate - - Oxygen Saturation - - Inhaled Oxygen Concentration - - Weight 78.5 kg (173 lb) 02/03/2013 9:01 AM CDT Height 177.8 cm (5' 10) 02/03/2013 9:01 AM CDT Body Mass Index 24.82 02/03/2013 9:01 AM CDT documented in this encounter Patient Instructions Patient InstructionsMahling-Deirdre Cristobal MD - 02/03/2013 9:19 AM CDT 1) Try Hydrocodone at night. You can use an additional dose or 2 during the day as needed, but this one has made you goofy in the past, so be careful. 2) OK to take up to 2 Ultram 3 times daily as needed. 3) Stop the Meloxicam. 4) Continue the Gabapentin, we may increase that. 5) Tylenol you can take up to 3000mg total. The Hydrocodone has 500mg of Tylenol in it, so that counts towards your total. documented in this encounter Ordered Prescriptions Prescription Sig Dispensed Refills Start Date End Date HYDROcodone-acetaminop Take 1-2 Tabs by mouth 60 Tab 0 0 02/03/2013 05/11/2013 hen (LORTAB) 5-500 MG every four hours as per tablet needed for Pain. Acetaminophen should be limited to 4000 mg per day. traMADol (ULTRAM) 50 1-2 pills tid prn 120 Tab 0 02/04/20 13 03/11/2013 MG tablet gabapentin (NEURONTIN) Take 1 Cap by mouth 270 Cap 3 01/0703/11/2013 300 MG capsule three times a day. 1 in AM, 2 at noon, 2 at night. documented in this encounter Progress Notes Deirdre Bedolla MD - 02/04/2013 11:18 AM CDT [facility] Patient Name: SIMON CASTILLO Date of Service: 02/03/2013 : 1935 Age: 77Y Sex: M DC Site MRN: Patient Loc/Room #: [facility] FP/ Provider: Deirdre Bedolla MD, Family Practice OFFICE NOTE SITE: [facility] SUBJECTIVE: Joe is here today for followup. Main issue is terrible back pain. It is 10/10. [id number] was no help; 50 made him crazy. He takes tramadol but does not really feel like it helps. Hydrocodone in the past has made him crazy, but they have again retried some he had at home and with a half to 1 tab at night he does get a little bit sleep. He is seeing Dr. Jamil, going to get a cortisone shot through [facility], and is considering doing a stimulator, but the biggest issue is that he is just miserable with all this pain. Urinary issues are getting better. He is working with urology on that. For diabetes, his blood sugars have been outstanding. He had been losing some weight and that does seem to be slowly improving at this point, so overall I do think there is a trend toward improvement. They remain, of course, somewhat discouraged that it is taking so long. PAST MEDICAL HISTORY: 1. Coronary artery disease with an [place] in 1989 and right coronary stenting at that time, then recent [place] July 04, 2012, down in [place] where he had 2 bare-metal stents placed. 2. Type 2 diabetes, off meds. 3. Reflux. 4. Hyperlipidemia. 5. Hypertension. 6. History of a neck fracture. 7. Benign prostatic hypertrophy. 8. Erectile dysfunction. 9. History of hypokalemia. 10. History of epidural abscess, which was thought to require lifelong Keflex, but he is actually off antibiotics now but has severe chronic pain with that. 11. Chronic hearing loss. SOCIAL HISTORY: He is accompanied by his , who does all of his caregiving. REVIEW OF SYSTEMS: No further fevers. Sleeping is getting a little bit better. OBJECTIVE: Vitals - height 70, weight 173, blood pressure 134/79, pulse 72. General - pleasant, in no acute distress. HEENT - head atraumatic, normocephalic. Conjunctivae are clear. Heart - regular. Lungs - clear. Extremities - he walks with a walker. ASSESSMENT AND PLAN: 1. Severe back pain. He seems to be tolerating hydrocodone a little bit. We will try to reintroduce that. He will take 1 to 2 tablets every 4 to 6 hours as needed. Discussed the Tylenol maximum on that, especially if they use any additional Tylenol. Continue tramadol as needed as that is somewhat helpful. For now, we will keep the gabapentin as it is, which is 1 in the morning, 2 at noon, and 2 at night. We may consider increasing that. For now, they are also going to see how the cortisone shot goes. I will see him back in a month. I really think pain control is our biggest issue here. If he does okay with the hydrocodone, we may consider increasing his Neurontin. He has not done well with long-acting narcotics. 2. Diabetes. A1c has been outstanding. Microalbumin was good. 3. Hypertension. Blood pressure is well controlled. 4. Heart disease. Lipids were done in October. LDL was 74. Continue his simvastatin, Plavix, and baby aspirin. 5. Epidural abscess. I am happy that he is seeing neurosurgery as well as me. We will continue to work together to improve his pain. It is the feeling of his infectious disease doctors that he is no longer needing antibiotics. Deirdre Bedolla MD [facility] cc: /GARRETT Job ID: [id number] /mdmts Document ID: [id number] Farhana Hurley LPN - 02/03/2013 9:02 AM CDT Fall Risk Yes: Walker Depression ([place]) Screening Questions 1. During the past month, have you often been bothered by feeling down, depressed, or hopeless? Not at all 2. During the past month, have you often been bothered by little interest or pleasure in doing things? Not at all documented in this encounter Nursing Notes 02/03/2013 9:00 AM CDT >> ASUNCION GARCIA LPN Wed Jan 21, 2013 1:29 PM This chart was prepped for visit by Asuncion Garcia LPN on 01/21/2013. documented in this encounter Plan of Treatment Not on filedocumented as of this encounter Procedures Procedure Name Priority Date/Time Associated Diagnosis Comme nts MICROALBUMIN/CREATI Routine 02/03/2013 9:30 AM Diabetes Re sults for this NINE RATIO, URINE CDT procedure are in the results section. documented in this encounter Results MICROALB,RANDOM (02/03/2013 9:30 AM CDT) Analysis Performed At Patho logist Time Signature Urine 1.0 mg/dL [facility] Microalbumin [facility] URINE CREATININE 55.9 mg/dL [facility] LABORATORY Urine 18 0 - 29 [facility] Microalbumin/Crea [facility]ICAL [facility] tinine Ratio LABORATORY Specimen Anatomical Collection Method Collection Time Receive d Time (Source) Location / / Volume Laterality 02/03/2013 9:30 AM 3 9:34 CDT AM CDT Deirdre Bedolla MD EC URINE ORDERABLES Performing Organization Address City/State/ZIP Code Phon e Number [facility] [address], [place] [address] LABORATORY [facility] 2023 [place] [address] LABORATORY documented in this encounter Visit Diagnoses Diagnosis Back pain - Primary Backache, unspecified Diabetes Type II or unspecified type diabetes cindy litus without mention of complication, not stated as uncontrolled Hypertension Unspecified essential hypertension Heart disease Heart disease, unspecified Epidural abscess Intracranial and intraspinal abscess of unspecified site documented in this encounter Discontinued Medications Medication Sig Discontinue Reason Start Date End Date meloxicam (MOBIC) 15 TAKE ONE TABLET BY Changed to an 02/02/2013 02/03/2013 MG tablet MOUTH ONE TIME alternate therapy DAILY WITH FOOD gabapentin (NEURONTIN) Take 1 Cap by mouth 10/10/2012 02/03/2013 300 MG capsule three times a day. traMADol (ULTRAM) 50 TAKE ONE OR TWO 02/02/201301/07 MG tablet TABLETS BY MOUTH TWICE DAILY NEEDED FOR PAIN documented as of this encounter Care Teams Network Project Manager Relationship Specialty Start Date End Date Deirdre Bedolla MD PCP - General Family Medicine 06/04/11 01/03/[address] [address] documented as of this encounter
--- OUTSIDE RECORDS SUMMARY | 2022-06-07 21:00 | XMS_ITS | Encounter Summary ---
:1935 Author Organization [facility] Address [address] [address] Phone Care Team Providers Name Role Phone Rima Bedolla MD Primary Care Provider [phone] Reason for Visit Reason Onset Date Comments Medication Information 01/12/2013 Encounter Details Date Type Department Care Team Description 01/12/2013 Telephone [facility] Farhana Hurley, Medication Information FAMILY MEDICINE COCOA BUTTER FILTER OPERATOR 2023 [place], [place] [address] Social History Tobacco Use Types Packs/Day Years Used Date Smoking Tobacco: Never Smokeless Tobacco: Never Alcohol Use Standard Drinks/Week Comments No 0 (1 standard drink = 0.6 oz pure alcoho l) Sex Assigned at Date Recorded Not on file documented as of this encounter Miscellaneous Notes Telephone Encounter - Farhana Hurley LPN - 01/12/2013 4:49 PM CDT Message copied by FARHANA HURLEY on SatJan 12, 2013 4:49 PM ------ Message from: RIMA JONES Created: SatJan 12, 2013 4:34 PM Contact: self How is he taking his neurontin? We have 300mg TID. Let's try to increase that. Increase to 1qam, 1qmidday, 2 at night for 2 weeks, then 1qam, 2 qmidday, 2qhs and see me back. ----- Message ----- From: Farhana Hurley LPN Sent: 01/12/2013 2:07 PM To: Rima Bedolla MD Meloxicam is not helping, is in constant pain especially at night. Try something else? Use [facility] ----- Message ----- From: Adri Rothman Sent: 01/12/2013 12:28 PM To: [facility] Amanda Bedolla Date: 01/12/2013 Time: 1209 we leave a message: unknown Patient's Date of : 1935 Person Calling: Self Phone Number: Home phone [phone] (home) Reason for call: Calling to give you a report on the new medication you put him on. Would like you to return his call so he can discuss. Pharmacy: NA Allergies: -- Codeine -- Penicillins VM sap ------ documented in this encounter Plan of Treatment Not on filedocumented as of this encounter Visit Diagnoses Not on filedocumented in this encounter Care Teams Wrestling Coach Relationship Specialty Start Date End Date Rima Bedolla MD PCP - General Family Medicine 06/04/11 01/03/[address] [address] documented as of this encounter
--- OUTSIDE RECORDS SUMMARY | 2022-06-07 21:00 | XMS_ITS | Encounter Summary ---
:1935 Author Organization [employer] [facility] Address [address] [place] [address] Phone Care Team Providers Name Role Phone Deirdre Bedolla MD Primary Care Provider [phone] Reason for Visit Reason Comments Other Prior auth for Detrol denied . Encounter Details Date Type Department Care Team Description 11/27/2012 Notes [facility] Arlette Darnell, Other (Prior auth for [address] Detrol denied.) [place], [place] [address] Social History Tobacco Use Types Packs/Day Years Used Date Smoking Tobacco: Never Smokeless Tobacco: Never Alcohol Use Standard Drinks/Week Comments No 0 (1 standard drink = 0.6 oz pure alcoho l) Sex Assigned at Date Recorded Not on file documented as of this encounter Progress Notes Cristina Villalobos PA-C - 12/12/2012 10:27 AM CDT They may have to stay at the current dose, pay out of pocket for 8 mg a day or consider trying generic oxybutynin at higher doses Remedios Baum - 12/12/2012 10:21 AM CDT Pt's would like us to send an RX to there pharmacy even thought the PA was denied. Please Advise. T Tavo Ro MD - 12/10/2012 8:59 AM CDT Notify that the insurance will not cover the higher dose of the detrol Arlette Darnell CMA - 11/27/2012 1:31 PM CDT Prior auth for Detrol denied. Approval of a greater quantity of this med requires prescriber to submit research studies in support of a dose higher than the FDA approved maximum dose. To appeal send info to Clinical Review Dept. [address] [place] [address] [place] [address]. Fax . Pharmacy notified. documented in this encounter Plan of Treatment Not on filedocumented as of this encounter Visit Diagnoses Not on filedocumented in this encounter Care Teams Shot Core Drill Operator Relationship Specialty Start Date End Date Deirdre Bedolla MD PCP - General Family Medicine 06/04/11 01/03/[address] [address] documented as of this encounter
--- OUTSIDE RECORDS SUMMARY | 2022-06-07 21:00 | XMS_ITS | Encounter Summary ---
:1935 Author Organization [facility] Address [address] [address] Phone Care Team Providers Name Role Phone Deirdre Bedolla MD Primary Care Provider [phone] Reason for Visit Reason Onset Date Comments Results 01/06/2013 Encounter Details Date Type Department Care Team Description 01/06/[address] Arenas LPN Results CARE [address] [place], [place] [address] Social History Tobacco Use Types Packs/Day Years Used Date Smoking Tobacco: Never Smokeless Tobacco: Never Alcohol Use Standard Drinks/Week Comments No 0 (1 standard drink = 0.6 oz pure alcoho l) Sex Assigned at Date Recorded Not on file documented as of this encounter Miscellaneous Notes Telephone Encounter - Fidelina Og LPN - 01/06/2013 6:18 PM CDT Pt notified of result. Telephone Encounter - Fidelina Og LPN - 01/06/2013 6:17 PM CDT Message copied by FIDELINA OG on SatJan 06, 2013 6:17 PM ------ Message from: NE JACOBO Created: SatJan 06, 2013 4:05 PM All lab neg. See If problems ------ documented in this encounter Plan of Treatment Not on filedocumented as of this encounter Visit Diagnoses Not on filedocumented in this encounter Care Teams Motors And Controls Tester Relationship Specialty Start Date End Date Deirdre Bedolla MD PCP - General Family Medicine 06/04/11 01/03/[address] [address] documented as of this encounter
--- OUTSIDE RECORDS SUMMARY | 2022-06-07 21:00 | XMS_ITS | Encounter Summary ---
:1935 Author Organization [facility] Address [address] [address] Phone Care Team Providers Name Role Phone Deirdre Bedolla MD Primary Care Provider [phone] Reason for Visit Reason Comments Refill Request Encounter Details Date Type Department Care Team Description 11/04/2012 Refill [facility] Mabel Bedolla Refill Request FAMILY MEDICINE MD Nomi 2023 [facility] [address] [address] [place], [place] [address] (Wo rk) Social History Tobacco Use Types Packs/Day Years Used Date Smoking Tobacco: Never Smokeless Tobacco: Never Alcohol Use Standard Drinks/Week Comments No 0 (1 standard drink = 0.6 oz pure alcoho l) Sex Assigned at Date Recorded Not on file documented as of this encounter Ordered Prescriptions Prescription Sig Dispensed Refills Start Date End Date furosemide (LASIX) 20 MG TAKE ONE TABLET BY 30 Tab 10 12/10/2012 tablet MOUTH ONE TIME DAILY amLODIPine (NORVASC) 10 MG TAKE ONE TABLET BY 30 Tab 10 0 11/04/2012 03/11/2013 tablet MOUTH ONE TIME DAILY documented in this encounter Plan of Treatment Not on filedocumented as of this encounter Visit Diagnoses Not on filedocumented in this encounter Discontinued Medications Medication Sig Discontinue Reason Start Date End Date amLODIPine (NORVASC) 10 Take 1 Tab by mouth 10/10/2012 11/04/2012 MG tablet one time a day. furosemide (LASIX) 20 MG Take 1 Tab by mouth 3 11/04/2012 tablet one time a day. documented as of this encounter Care Teams Health Type Technician Relationship Specialty Start Date End Date Deirdre Bedolla MD PCP - General Family Medicine 06/04/11 01/03/[address] [address] documented as of this encounter
--- OUTSIDE RECORDS SUMMARY | 2022-06-07 21:00 | XMS_ITS | Encounter Summary ---
:1935 Author Organization [employer] Address [address] [address] Phone Care Team Providers Name Role Phone Deirdre Bedolla MD Primary Care Provider [phone] Reason for Visit Therapy (Routine) - Closed Specialty Diagnoses / Procedures Referred By Contact Refer red To Contact Physical Therapy Diagnoses Urinary bladder incontinence Urinary Incontenence Tavo Ro MD Belfiori, Annette M, Procedures [id number] [address] [facility] [address] [place] [address] [place] [address] Phone: Fax: Referral ID Status Reason Start Date Expiration Date Visits Requ ested Visits Authorized [id number] Closed 02/18/2013 03/04/2013 2 2 Encounter Details Date Type Department Care Team Description 03/04/2013 Office Visit [facility] Laurence Rajput [facility] er physical therapy (Primary Dx); Center Musical Instrument Maker M, PT Urge incontinence; - Rehab Outpt [address] [facility] Urinary frequency; [address] [place] [address] [place], [place] [id number] Social History Tobacco Use Types Packs/Day Years Used Date Smoking Tobacco: Never Smokeless Tobacco: Never Alcohol Use Standard Drinks/Week Comments No 0 (1 standard drink = 0.6 oz pure alcoho l) Sex Assigned at Date Recorded Not on file documented as of this encounter Progress Notes Laurence Rajput - 03/04/2013 3:47 PM CDT Medicare Discharge Summary Dates of Service: 02/18/2013 - 03/04/2013 Patient seen for a total of 2 visits, 0 cancels, 0 no shows. Services provided: home program, therapeutic exercise and evaluation Subjective Changes: Patient noted to have scabs on both knees, reports this is due to a fall, has frequent falls. Is currently undergoing evaluation for possible implantation of a stimulator to decrease pain. Having continued severe pain in right hip and thigh and uncomfortable today eg sitting upright due to same. More comfortable in forward flexed position. Reports voiding interval increased to up to 2 hours at times. When anxious about voiding, still has some episodes of frequent voiding, feels that he doesn't empty completely at times. Is not using any incontinence products. At times does have to change clothing as he did previously but is happy about not wearing incontinence products. Has take n trip to the [facility] without needing to stop and but then has strong urgency on arrival. Advised to stop once on this trip. Objective Changes: Tending to contract abdominals strongly when trying to kegel. Had short period ofkegels during session today when he was doing exercises correctly isolating appropriate muscles. Fatigues quickly with musculoskeletal pain limiting eg positions he can exercise in as well as exercisesperformance. Eg did sitting ex only today due to problems with supine positioning noted last sessionand problems with standing. Can stand briefly using walker. Treatment today included 25 minutes of biofeedback guided kegels sitting, also instructed in pelvic rotator cuff strengthening using heel andtoe clicks. Patient demonstrates some goal resolution re at times having a better voiding interval and less urgency and urge incontinence noted. Advised to continue home program. Decision made to discontinue therapy at this time, patient is going to be involved in pain control procedures etc. To call if they have questions. accompanied him to therapy today and was present throughout session. [id number] units billed FUNCTIONAL REPORTING Self Care Goal Status (G8988): At least 40 percent but less than 60 percent impaired, limited or restricted Self Care Discharge Status (G8989): At least 40 percent but less than 60 percent impaired, limited or restricted Level of severity determination based upon subjective and objective data obtained from: Score: pelvic floor impact questionnaire score 03/28 43 % disability vs 57% initially documented in this encounter Plan of Treatment Not on filedocumented as of this encounter Procedures Procedure Name Priority Date/Time Associated Diagnosis Comme nts THERAPEUTIC EXERCISES Routine 03/04/2013 3:46 PM CDT Oth er Physical Therapy Urge incontinenc e Urinary frequenc y Muscle weakness documented in this encounter Visit Diagnoses Diagnosis Other physical therapy - Primary Urge incontinence Urinary frequency Muscle weakness Muscle weakness (generalized) documented in this encounter Orders Procedures Count Last Ordered Date First Ordered Date THERAPEUTIC EXERCISES 1 03/04/2013 documented in this encounter Care Teams Procedure Manager Relationship Specialty Start Date End Date Deirdre Bedolla MD PCP - General Family Medicine 06/04/11 01/03/[address] [address] documented as of this encounter
--- OUTSIDE RECORDS SUMMARY | 2022-06-07 21:00 | XMS_ITS | Encounter Summary ---
:1935 Author Organization [employer] Address [address] [address] Phone Care Team Providers Name Role Phone Deirdre Bedolla MD Primary Care Provider [phone] Reason for Visit Reason Comments Other prior auth for Klor-Con sent Encounter Details Date Type Department Care Team Description 11/05/2012 Notes [facility] Danna Cervantes , Other (prior auth for GI CASH SALES AUDIT CLERK Klor-Con sent) 2023 [place], [place] [id number] Social History Tobacco Use Types Packs/Day Years Used Date Smoking Tobacco: Never Smokeless Tobacco: Never Alcohol Use Standard Drinks/Week Comments No 0 (1 standard drink = 0.6 oz pure alcoho l) Sex Assigned at Date Recorded Not on file documented as of this encounter Progress Notes Danna Cervantes LPN - 11/05/2012 2:14 PM CDT Prior auth for Klor Con sent to [facility]. Dx Hypokalemia. On this medication for years. documented in this encounter Plan of Treatment Not on filedocumented as of this encounter Visit Diagnoses Not on filedocumented in this encounter Care Teams Senior Category Manager Relationship Specialty Start Date End Date Deirdre Bedolla MD PCP - General Family Medicine 06/04/11 01/03/[address] [id number] documented as of this encounter
--- OUTSIDE RECORDS SUMMARY | 2022-06-07 21:00 | XMS_ITS | Encounter Summary ---
:1935 Author Organization [employer] Address [address] [address] Phone Care Team Providers Name Role Phone Deirdre Bedolla MD Primary Care Provider [phone] Reason for Visit Reason Comments Other prior auth for Detrol LA sen t Encounter Details Date Type Department Care Team Description 11/26/2012 Notes [facility] Danna Cervantes , Other (prior auth for GI CHIEF CLINICAL OFFICER Detrol LA sent) 2023 [facility] [place] [address] Social History Tobacco Use Types Packs/Day Years Used Date Smoking Tobacco: Never Smokeless Tobacco: Never Alcohol Use Standard Drinks/Week Comments No 0 (1 standard drink = 0.6 oz pure alcoho l) Sex Assigned at Date Recorded Not on file documented as of this encounter Progress Notes Danna Cervantes LPN - 11/26/2012 10:31 AM CDT Prior auth for Detrol LA sent to [employer]. Dx OAB. Was on once a day dosing, but this needs to be increased to two a day dosing. documented in this encounter Plan of Treatment Not on filedocumented as of this encounter Visit Diagnoses Not on filedocumented in this encounter Care Teams Bark Press Operator Relationship Specialty Start Date End Date Deirdre Bedolla MD PCP - General Family Medicine 06/04/11 01/03/[address] [place] [address] documented as of this encounter
--- OUTSIDE RECORDS SUMMARY | 2022-06-07 21:00 | XMS_ITS | Encounter Summary ---
:1935 Author Organization [employer] Address [address] [address] Phone Care Team Providers Name Role Phone Deirdre Bedolla MD Primary Care Provider [phone] Reason for Visit Reason Onset Date Comments Medication Information 12/12/2012 Encounter Details Date Type Department Care Team Description 12/12/2012 Telephone [facility] Yanni Ro, Medication Information [address] [facility] [place] [id number] Social History Tobacco Use Types Packs/Day Years Used Date Smoking Tobacco: Never Smokeless Tobacco: Never Alcohol Use Standard Drinks/Week Comments No 0 (1 standard drink = 0.6 oz pure alcoho l) Sex Assigned at Date Recorded Not on file documented as of this encounter Miscellaneous Notes Telephone Encounter - Deloris Ro - 12/12/2012 1:08 PM CDT Patients was calling regarding medication. When i returned her call she had already gotten her questions answered earlier and forgot. documented in this encounter Plan of Treatment Not on filedocumented as of this encounter Visit Diagnoses Not on filedocumented in this encounter Care Teams Enterprise Integration Architect Relationship Specialty Start Date End Date Deirdre Bedolla MD PCP - General Family Medicine 06/04/11 01/03/[address] [place] [address] documented as of this encounter
--- OUTSIDE RECORDS SUMMARY | 2022-06-07 21:00 | XMS_ITS | Encounter Summary ---
:1935 Author Organization [facility] [employer] Address [address] [address] Phone Care Team Providers Name Role Phone Deirdre Bedolla MD Primary Care Provider [phone] Reason for Visit Reason Comments Hip Pain right for months getting wor se goes down down his leg Encounter Details Date Type Department Care Team Description 01/06/2013 Office Visit [facility] Urgent H ip pain, left URGENT CARE (Primary Dx) [address] [place], [place] [address] Social History Tobacco Use Types Packs/Day Years Used Date Smoking Tobacco: Never Smokeless Tobacco: Never Alcohol Use Standard Drinks/Week Comments No 0 (1 standard drink = 0.6 oz pure alcoho l) Sex Assigned at Date Recorded Not on file documented as of this encounter Last Filed Vital Signs Vital Sign Reading Time Taken Comments Blood Pressure 118/69 01/06/2013 8:47 AM CDT Pulse 67 01/06/2013 8:47 AM CDT Temperature 36.1 ??C (96.9 ??F) 01/06/2013 8:47 AM CDT Respiratory Rate - - Oxygen Saturation - - Inhaled Oxygen Concentration - - Weight 82.6 kg (182 lb) 01/06/2013 8:47 AM CDT Height - - Body Mass Index 26.11 12/31/2012 10:10 AM CDT documented in this encounter Progress Notes Robin Lozano - 01/09/2013 5:27 AM CDT [facility] Patient Name: SIMON CASTILLO Date of Service: 01/06/2013 : 1935 Age: 77Y Sex: Brandin PATEL Site MRN: Patient Loc/Room #: BRBAXUC/ Provider: Robin Lozano MD, Urgent Care/Family Practice OFFICE NOTE SITE: [facility] SUBJECTIVE: Simon is a 77-year-old who is normally seen by Dr. Bedolla. He had apparently an abscess in what sounds like his spinal column. This was back many months ago, and really since he has been having some troubles with his right hip. He has had a lot of workup. It sounds like he has been scanned, and in fact, he has an appointment with orthopedics in 4 days. Nothing really seems to be different or changed when he comes in today. He comes in today for evaluation. He has not actually had x-rays done of this area since he developed this trouble although he has had a lot of MRIs of his spine. He is denying any fevers. No chills. No night sweats. The pain is worse if he is standing or lifts up his leg. It is difficult for him to lay all the way flat. If he lies flat that seems to be also make it worse. He has an extensive medical history. He has extensive medications. These are all noted in the chart. OBJECTIVE: He is on exam today alert. He is very slow moving. His vital signs - are reviewed today, and he is not presently febrile. He has normal blood pressure of 118/69, his pulse is 67. He looks a little older than his stated age of 77. His lung sounds - are entirely clear today. Heart sounds - are regular. Abdomen - is soft. He has no rashes. When I try to examine his hip it is actually quite difficult because I cannot really lay him down. He is able to flex his hip without too much trouble. Hecan internally rotate it and externally rotate it, but with palpation over the lateral hip he seems to be quite uncomfortable. I did do a CRP as well as a sed rate and a CBC and x-rays. All of this really looked quite normal today. Nothing elevated that would make me concerned about an osteomyelitis, and his x-rays really looked quite normal. The radiologist will be reviewing these, but I do not think they are going to see much that is really concerning other than mild degenerative changes. ASSESSMENT: Hip pain, longstanding. PLAN: Keep orthopedic referral. Follow up if problems or concerns. Robin Lozano MD [facility] Urgent Care/Family Practice cc: /KMD Job ID: [id number] /[id number] Document ID: [id number] Robin Lozano - 01/06/2013 4:05 PM CDT Quick Note: All lab neg. See If problems Robin Lozano - 01/06/2013 9:06 AM CDT This note has been dictated. Marisela Rubio LPN - 01/06/2013 8:50 AM CDT Fall Risk Yes: Cane documented in this encounter Plan of Treatment Not on filedocumented as of this encounter Procedures Procedure Name Priority Date/Time Associated Comments Diagnosis XR PELVIS 1 OR 2 Routine 01/06/2013 9:58 AM Hip pain, left Res ults for this VIEWS - RETIRED CDT procedure ar e in the results section. XR HIP RIGHT 2 OR 3 Routine 01/06/2013 9:58 AM Hip pain, left Results for this VIEWS CDT procedure are i n the results section. DIFFERENTIAL 01/06/2013 9:37 AM Pain in joint, Results for this CDT pelvic region and procedure are in thigh the results section. C REACTIVE PROTEIN Routine 01/06/2013 9:37 AM Hip pain, left R esults for this CDT procedure are i n the results section. LYME DISEASE SCR Routine 01/06/2013 9:37 AM Hip pain, left Res ults for this CDT procedure are i n the results section. HEMOGRAM/DIFF Routine 01/06/2013 9:37 AM Hip pain, left Result s for this CDT procedure are i n the results section. SED RATE Routine 01/06/2013 9:37 AM Hip pain, left Results for this CDT procedure are i n the results section. 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 Lumbar curve convex to the left with marked degenerative change. Probable compression of the L3 v ertebral body. Dedicated imaging of the right hip demon strates mild/moderate degenerative arthritis right hip with joint space genaro rowing and minimal hypertrophic change. No acute fracture or cortical de struction. IMPRESSION 1. Degenerative changes as described abo ve. 2. Left ROLANDO. Procedure Note Nayan Martinez MD - 01/06/2013Forma tting of this note might be different from the original. 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 Lumbar curve convex to the left with marked degenerative change. Probable compression of the L3 vertebral body. Dedicated imaging of the right hip demon strates mild/moderate degenerative arthritis right hip with joint space narrowing and minimal hypertrophic change. No acute fracture or cortical destruction. IMPRESSION 1. Degenerative changes as described abo ve. 2. Left ROLANDO. 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 Lumbar curve convex to the left with marked degenerative change. Probable compression of the L3 v ertebral body. Dedicated imaging of the right hip demon strates mild/moderate degenerative arthritis right hip with joint space genaro rowing and minimal hypertrophic change. No acute fracture or cortical de struction. IMPRESSION 1. Degenerative changes as described abo ve. 2. Left ROLANDO. Procedure Note Nayan Martinez MD - 01/06/2013Forma tting of this note might be different from the original. 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 Lumbar curve convex to the left with marked degenerative change. Probable compression of the L3 vertebral body. Dedicated imaging of the right hip demon strates mild/moderate degenerative arthritis right hip with joint space narrowing and minimal hypertrophic change. No acute fracture or cortical destruction. IMPRESSION 1. Degenerative changes as described abo ve. 2. Left ROLANDO. Robin Lozano MD [facility] DIAGNOSTIC IMAGING ORDERA BLES (ABNORMAL) DIFFERENTIAL (01/06/2013 9:37 AM CDT) Analysis Performed At Patho logist Time Signature NEUTROPHIL % 68.0 % [facility] LYMPHOCYTE % 23.0 % [facility] MONOCYTE % 4.0 % [facility] EOSINOPHIL % 4.0 % [facility] BASOPHIL % 1.0 % [facility] NEUTROPHIL ABS 3.9 1.7 - 8.5 [place] 109/L LABORATORY LYMPHOCYTE ABS 1.3 0.9 - 3.6 [place] 109/L [facility] MONOCYTE ABS 0.2 (L) 0.3 - 1.0 [place] 109/L LAB[facility] EOSINOPHIL ABS 0.2 0.0 - 0.6 [place] 109/L [facility] BASOPHIL ABS 0.1 0.0 - 0.3 [place] 109/L LAB[facility] MICROCYTES Slight [facility] ELIPTOCYTES Few [facility] Specimen Anatomical Collection Method Collection Time Receive d Time (Source) Location / / Volume Laterality 01/06/2013 9:37 AM 3 9:37 CDT AM CDT Robin Lozano MD [facility] LABORATORY Performing Organization Address City/State/ZIP Code Phon e Number [facility] (ABNORMAL) HEMOGRAM/DIFF (01/06/2013 9:37 AM CDT) Analysis Performed At Patho logist Time Signature WBC 5.8 3.4 - 10.7 [place] 109/L LABORATORY RBC 4.45 4.20 - [place] 5.90 LABORATORY 1012/L HGB 12.9 (L) 13.0 - [place] 17.0 g/dL LABORATORY HCT 38.3 37.5 - [place] 51.0 % LABORATORY MCV 86.0 82.0 - [place] 99.0 fL LABORATORY MCH 29.0 27.0 - [place] 34.0 pg LABORATORY MCHC 33.7 32.0 - [place] 35.7 g/dL LABORATORY RDW 17.0 (H) 11.0 - [place] 15.0 % LABORATORY PLT 194 150 - 400 [place] 109/L LABORATORY Platelet Slide Adequate [facility] Review LABORATORY Specimen Anatomical Collection Method Collection Time Receive d Time (Source) Location / / Volume Laterality 01/06/2013 9:37 AM 3 9:37 CDT AM CDT Robin Lozano MD EC HEMATOLOGY ORDERABLES Performing Organization Address City/[facility]/ZIP Code Phon e Number [facility] C REACTIVE PROTEIN (01/06/2013 9:37 AM CDT) athologist Signature CRP 0.2 0.0 - 0.8 [place] mg/dL LABORATORY Specimen Anatomical Collection Method Collection Time Receive d Time (Source) Location / / Volume Laterality 01/06/2013 9:37 AM 3 9:37 CDT AM CDT Robin Lozano MD EC CHEMISTRY ORDERABLES Performing Organization Address City/[facility]/ZIP Code Phon e Number [facility] SED RATE (01/06/2013 9:37 AM CDT) P athologist Signature SED RATE 13 0 - 15 [place] mm/hr LABORATORY Specimen Anatomical Collection Method Collection Time Receive d Time (Source) Location / / Volume Laterality 01/06/2013 9:37 AM 3 9:37 CDT AM CDT Robin Lozano MD EC HEMATOLOGY ORDERABLES Performing Organization Address City/[facility]/ZIP Code Phon e Number [facility] LYME DISEASE SCR (01/06/2013 9:37 AM CDT) Analysis Performed At [facility] Signature LYME DISEASE Negative [facility] SCR LABORATORY Comment: REFERENCE RANGE: Negative All positive and equivocal results will be sent for confirmatory Western Blot. Specimen Anatomical Collection Method Collection Time Receive d Time (Source) Location / / Volume Laterality 01/06/2013 9:37 AM 3 CDT 11:11 AM CDT Robin Lozano MD EC CHEMISTRY ORDERABLES Performing Organization Address City/State/ZIP Code Phon e Number [facility] [facility] documented in this encounter Visit Diagnoses Diagnosis Hip pain, left - Primary Pain in joint, pelvic region and thigh documented in this encounter Care Teams Avionics Systems Repairer Relationship Specialty Start Date End Date Deirdre Bedolla MD PCP - General Family Medicine 06/04/11 01/03/[address] [address] documented as of this encounter
--- OUTSIDE RECORDS SUMMARY | 2022-06-07 21:00 | XMS_ITS | Encounter Summary ---
:1935 Author Organization [employer] Address [address] [address] Phone Care Team Providers Name Role Phone Deirdre Bedolla MD Primary Care Provider [phone] Reason for Visit Reason Onset Date Comments Refill Request 03/16/2013 Encounter Details Date Type Department Care Team Description 03/16/2013 Refill [facility] XaviJerry LPN Refill Request MEDICINE 2023 [place], [place] [id number] Social History Tobacco Use Types Packs/Day Years Used Date Smoking Tobacco: Never Smokeless Tobacco: Never Alcohol Use Standard Drinks/Week Comments No 0 (1 standard drink = 0.6 oz pure alcoho l) Sex Assigned at Date Recorded Not on file documented as of this encounter Ordered Prescriptions Prescription Sig Dispensed Refills Start Date End Date acetaminophen-codeine Take 1 Tab by mouth 90 Tab 0 03/1605/20/2013 (TYLENOL #3) 300-30 MG every four hours as per tablet needed for Pain. Acetaminophen should be limited to 4000 mg per day. documented in this encounter Plan of Treatment Not on filedocumented as of this encounter Visit Diagnoses Not on filedocumented in this encounter Discontinued Medications Medication Sig Discontinue Reason Start Date End Date acetaminophen-codeine Take 1 Tab by mouth 03/11/2013 03/16/2013 (TYLENOL #3) 300-30 every four hours as MG per tablet needed for Pain. Acetaminophen should be limited to 4000 mg per day. documented as of this encounter Care Teams Health Promotion Specialist Relationship Specialty Start Date End Date Deirdre Bedolla MD PCP - General Family Medicine 06/04/11 01/03/[address] [address] documented as of this encounter
--- OUTSIDE RECORDS SUMMARY | 2022-06-07 21:00 | XMS_ITS | Encounter Summary ---
:1935 Author Organization [employer] Address [address] [address] Phone Care Team Providers Name Role Phone Deirdre Bedolla MD Primary Care Provider [phone] Encounter Details Date Type Department Care Team Description 12/12/2012 Orders Only [facility] Farhana Hurley, Diabetes (Primary Dx) FAMILY MEDICINE POWER PLANT MECHANIC 2023 [facility] [place] [id number] Social History Tobacco Use Types Packs/Day Years Used Date Smoking Tobacco: Never Smokeless Tobacco: Never Alcohol Use Standard Drinks/Week Comments No 0 (1 standard drink = 0.6 oz pure alcoho l) Sex Assigned at Date Recorded Not on file documented as of this encounter Plan of Treatment Not on filedocumented as of this encounter Results A1C(HGB AIC) (02/03/2013 8:54 AM CDT) athologist Signature A1C (HGB AIC) 5.3 4.0 - 6.0 [facility] % [facility] Est Average 105 mg/dL [facility] Glucose [facility] Comment: According to ADA guidelines, the estimat ed average glucose (eAG) will be calculated for all HgbA1c results. Specimen Anatomical Collection Method Collection Time Receive d Time (Source) Location / / Volume Laterality 02/03/2013 8:54 AM 3 8:59 CDT AM CDT Deirdre Bedolla MD EC CHEMISTRY ORDERABLES A BN Performing Organization Address City/State/ZIP Code Phon e Number [facility] [address] [place] [address] LABORATORY [facility] [address] [facility] [place] [address] LABORATORY documented in this encounter Visit Diagnoses Diagnosis Diabetes - Primary Type II or unspecified type diabetes cindy litus without mention of complication, not stated as uncontrolled documented in this encounter Care Teams Drivers License Examiner Relationship Specialty Start Date End Date Deirdre Bedolla MD PCP - General Family Medicine 06/04/11 01/03/[address] [place] [address] documented as of this encounter
--- OUTSIDE RECORDS SUMMARY | 2022-06-07 21:00 | XMS_ITS | Encounter Summary ---
:1935 Author Organization [employer] Address [address] [address] Phone Care Team Providers Name Role Phone Deirdre Bedolla MD Primary Care Provider [phone] Reason for Referral (Routine) Specialty Diagnoses / Procedures Referred By Contact Refer red To Contact Vicki Bedolla MD [address] [place] [address] Referral ID Status Reason Start Date Expiration Date Visits Requ ested Visits Authorized Question Answer Location: [facility] Comments Referral to be scheduled within: Next av ailable Additional Information: History of epidu ral abscess, having ongoing issues. Saw Dr. Jamil. Reason for Referral: Epidural abscess Referral related to injury: No Has patient ever had surgery for this be fore: Yes: [facility] Recent MRI/Imaging: Yes: [facility] Please load films in PACS Reason for Visit Reason Comments Blood Pressure Diabetes Encounter Details Date Type Department Care Team Description 12/10/2012 Office Visit Tammie Hadley (Primary Dx); CLINIC FAMILY Deirdre Mosher MD Epidural abscess; MEDICINE [address] Heart disease; [address] [facility] [address] [address] [place] [id number] Social History Tobacco Use Types Packs/Day Years Used Date Smoking Tobacco: Never Smokeless Tobacco: Never Alcohol Use Standard Drinks/Week Comments No 0 (1 standard drink = 0.6 oz pure alcoho l) Sex Assigned at Date Recorded Not on file documented as of this encounter Last Filed Vital Signs Vital Sign Reading Time Taken Comments Blood Pressure 126/78 12/10/2012 1:34 PM CDT Pulse 74 12/10/2012 1:34 PM CDT Temperature - - Respiratory Rate - - Oxygen Saturation - - Inhaled Oxygen Concentration - - Weight 81.2 kg (179 lb) 12/10/2012 1:34 PM CDT Height 175.3 cm (5' 9) 12/10/2012 1:34 PM CDT Body Mass Index 26.43 12/10/2012 1:34 PM CDT documented in this encounter Patient Instructions Patient InstructionsMahlartemio-Deirdre Cristobal MD - 12/10/2012 2:17 PM CDT STOP ibuprofen. START Meloxicam instead. DO NOT use any anti-inflammatory medications with that (Aleve, ibuprofen). OK to use Tylenol (Acetominophen) up to 1000mg three times daily as needed. Someone will call you to see Dr. Jamil. See me in 2 months. documented in this encounter Ordered Prescriptions Prescription Sig Dispensed Refills Start Date End Date meloxicam (MOBIC) 15 MG Take 1 Tab by mouth 30 Tab 1 11/201202/03/2013 tablet one time a day. Take with food. documented in this encounter Progress Notes Deirdre Bedolla MD - 12/11/2012 5:04 PM CDT [facility] Patient Name: SIMON CASTILLO Date of Service: 12/10/2012 : 1935 Age: 77Y Sex: M DC Site MRN: Patient Loc/Room #: [facility] FP/ Provider: Deirdre Bedolla MD, Family Practice OFFICE NOTE SITE: [facility] SUBJECTIVE: Joe is here today for several things. First of all, he has a history of an epidural abscess. He is working with his infectious disease doctor, who recently discontinued his antibiotics. Gabriella has a lot of inflammation seen on his MRI and is having just a tremendous amount of inflammation. He had been on 25 of Fentanyl and that did not really seem to be working, so his infectious disease doctor increased him to 50 and on that he was just acting totally crazy, so they went off altogether. He has Ultram he can use occasionally and just does not feel like that is helpful. Any narcotics really cause very strange behaviors, so they are hesitant to use those, but he is quite miserable. He also is having a lot of urinary frequency and is seeing Urology. I do question how much of this is more just almost neurogenic. They are not seeing a spinal surgeon anymore. He has diabetes. Blood sugars have been good about 100. He is continuing to lose some weight, which I suspect is just related to ongoing inflammation that he has. He has hypertension and hyperlipidemia, and blood pressure and cholesterol have been well controlled. PAST MEDICAL HISTORY: 1. 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 2. Coronary artery disease with an DE in 1989 and right coronary stenting and then an DE on 2011, and he had to bare metal stents placed. 3. Type 2 diabetes, off meds. 4. Reflux. 5. Hyperlipidemia. 6. Hypertension. 7. History of a neck fracture. 8. Prostatic hypertrophy. 9. Erectile dysfunction. 10. History of hypokalemia. 11. Chronic hearing loss. 12. Benign prostatic hypertrophy. MEDICATIONS: 1. Vitamin C 500 daily. 2. Seroquel 25, one-half tablet at bedtime. 3. MiraLAX p.r.n. 4. Ultram 50 mg 1 to 2 tablets b.i.d. 5. Multivitamin daily. 6. Mobic 15 mg daily, which is new. 7. Detrol LA 4 mg 2 tablets daily. 8. Flomax daily. 9. Plavix 75 daily. 10. Norvasc 10 mg daily. 11. Zocor 10 mg daily. 12. Atenolol 25 daily. 13. Protonix 40 daily. 14. Senna 2 tablets daily. 15. Neurontin 300 mg t.i.d. 16. Potassium 20 mEq daily. 17. Baby aspirin daily. REVIEW OF SYSTEMS: He has had chest pains and no shortness of breath. Moods have been okay. EXAMINATION: Vital signs - height is 69, weight 179, blood pressure 126/78, pulse 74. Generally pleasant, in no acute distress. HEENT - head atraumatic, normocephalic. Conjunctivae are clear. Heart isregular. Lungs are clear. Extremities - no edema. ASSESSMENT AND PLAN: 1. Epidural abscess and terrible back pain. Unfortunately he has been intolerant of all narcotics. Tramadol is no help. Fentanyl patch at 25 mcg did nothing and 50 mcg caused a lot of mental disorientation. Will try Mobic 15 mg daily, with Tylenol p.r.n. Follow up with me by phone in a couple of weeksand let me know how things are going. 2. Diabetes. A1c outstanding in October; not due again until April. 3. Heart disease. Continue Plavix and aspirin. Following with Cardiology. 4. Urinary frequency. I am going to get him set back up with Neurosurgery. Part of that it is just to see if they have any other thoughts to what we can do for his back pain, since he is intolerant of narcotics, tramadol is not helping, and if the Mobic is not helpful, but also just to see how many ofthese symptoms such as the urinary frequency may just not get better and might be related to the injury itself. I am not sure how much of this is prostatic and how much of this is neurogenic. 5. Insomnia. Joe cannot sleep at night because he gets up so much to go to the bathroom, sometimes every 8 minutes. His is extremely exhausted. They do qualify for some home health care services per her report and I have encouraged them to pursue that. See me physically back in 2 months. Call meand let me know how his pain is doing in a couple of weeks. Deirdre Bedolla MD [facility] Practice cc: /GARRETT Job ID: [id number] /[id number] Document ID: [id number] Farhana Hurley LPN - 12/10/2012 1:46 PM CDT Fall Risk No Depression ([place]) Screening Questions 1. During the past month, have you often been bothered by feeling down, depressed, or hopeless? Not at all 2. During the past month, have you often been bothered by little interest or pleasure in doing things? Not at all documented in this encounter Nursing Notes 12/10/2012 1:15 PM CDT >> ASUNCION GARCIA LPN Fri December 05, 2012 1:46 PM This chart was prepped for visit by Asuncion Garcia LPN on 12/05/2012. documented in this encounter Plan of Treatment Not on filedocumented as of this encounter Results MICROALB,RANDOM (02/03/2013 9:30 AM CDT) Analysis Performed At Patho logist Time Signature Urine 1.0 mg/dL [facility] Microalbumin MED[facility] LAB[facility]ATORY URINE CREATININE 55.9 mg/dL [facility] LABORATORY Urine 18 0 - 29 [facility] Microalbumin/Crea MEDICAL CLIN IC tinine Ratio LABORATORY Specimen Anatomical Collection Method Collection Time Receive d Time (Source) Location / / Volume Laterality 02/03/2013 9:30 AM 3 9:34 CDT AM CDT Deirdre Bedolla MD EC URINE ORDERABLES Performing Organization Address City/State/ZIP Code Phon e Number [facility] [address] [place] [address] LABORATORY [facility] [address] [facility] [place] [address] LABORATORY documented in this encounter Visit Diagnoses Diagnosis Diabetes - Primary Type II or unspecified type diabetes cindy litus without mention of complication, not stated as uncontrolled Epidural abscess Intracranial and intraspinal abscess of unspecified site Heart disease Heart disease, unspecified Hyperlipidemia Other and unspecified hyperlipidemia documented in this encounter Discontinued Medications Medication Sig Discontinue Reason Start Date End Date cephALEXin (KEFLEX) 500 Take 1 Cap by Course of treatment 3 12/10/2012 MG capsule mouth three times completed a day. furosemide (LASIX) 20 TAKE ONE TABLET BY Course of treatment 201212/10/2012 MG tablet MOUTH ONE TIME completed DAILY lidocaine (LIDODERM) 5 Place 3 Patches Course of treatment 09/30/19 13 12/10/2012 % patch onto the skin completed every 24 hours. Remove patch(es) after 12 hours. traMADol (ULTRAM) 50 MG TAKE ONE OR TWO Duplicate Medication 201212/10/2012 tablet TABLETS BY MOUTH TWICE DAILY NEEDED FOR PAIN TraMADol HCl ER 100 MG Take 100 mg by Duplicate Medication 10/11/19 13 12/10/2012 CP24 mouth two times a day. pantoprazole (PROTONIX) TAKE ONE TABLET BY Duplicate Medication 12/10/2012 40 MG tablet MOUTH ONE TIME DAILY QUEtiapine (SEROQUEL) TAKE ONE TABLET BY 12/02/2012 12/10/2012 25 MG tablet MOUTH AT BEDTIME NEEDED FOR ANXIETY metFORMIN (GLUCOPHAGE) TAKE ONE TABLETS Course of treatment 012 12/10/2012 1000 MG tablet BY MOUTH IN THE completed MORNING AND TWO IN THE EVENING ibuprofen (ADVIL) 200 Take 2-3 Caps by Changed to an 12/10/2012 0 12/10/2012 MG capsule mouth every four alternate therapy hours as needed for Pain. Take with food or milk. documented as of this encounter Historical Medications This list may reflect changes made after this encounter. Medication Sig Dispensed Refills Start Date End Date Multiple Vitamin Take 1 Tab by mouth 100 Tab 0 12/10/2012 (MULTIVITAMIN) tablet one time a day. ibuprofen (ADVIL) 200 MG Take 2-3 Caps by 100 Cap 0 12/1012/10/2012 capsule mouth every four hours as needed for Pain. Take with food or milk. traMADol (ULTRAM) 50 MG TAKE ONE OR TWO 120 Tab 0 013 02/03/2013 tablet TABLETS BY MOUTH TWICE DAILY NEEDED FOR PAIN polyethylene glycol 3350 Take 17 g by mouth 1 Bottle 0 11/201203/31/2013 (MIRALAX) powder one time a day as needed for Constipation. Mix in 8 oz of water, juice, soda, coffee, or tea prior to administration. QUEtiapine (SEROQUEL) 25 Take 0.5 Tabs by 30 Tab 5 12/1003/11/2013 MG tablet mouth at bedtime. TAKE ONE TABLET BY MOUTH AT BEDTIME NEEDED FOR ANXIETY Ascorbic Acid (VITAMIN C) Take 500 mg by mouth 60 Cap 0 12/10/2012 02/15/2014 500 MG CAPS one time a day. added in this encounter Orders REFERRAL Count Last Ordered Date First Ordered Date APPT WITH [facility] 1 12/10/2012 documented in this encounter Care Teams Window Installation Subcontractor Relationship Specialty Start Date End Date Deirdre Bedolla MD PCP - General Family Medicine 06/04/11 01/03/[address] [id number] documented as of this encounter
--- OUTSIDE RECORDS SUMMARY | 2022-06-07 21:00 | XMS_ITS | Encounter Summary ---
:1935 Author Organization [employer] Address [address] [address] Phone Care Team Providers Name Role Phone Deirdre Bedolla MD Primary Care Provider [phone] Reason for Visit Reason Onset Date Comments Refill Request 11/05/2012 Encounter Details Date Type Department Care Team Description 11/05/2012 Refill [facility] HurleyJerry LPN Refill Request MEDICINE 2023 [place], [place] [id number] Social History Tobacco Use Types Packs/Day Years [...] on filedocumented in this encounter Care Teams Oracle Dba Relationship Specialty Start Date End Date Deirdre Bedolla MD PCP - General Family Medicine 06/04/11 01/03/[address] [place], [place] [address] documented as of this encounter
--- OUTSIDE RECORDS SUMMARY | 2022-06-07 21:00 | XMS_ITS | Encounter Summary ---
:1935 Author Organization [employer] Address [address] [address] Phone Care Team Providers Name Role Phone Deirdre Bedolla MD Primary Care Provider [phone] Reason for Visit Reason Comments Refill Request Encounter Details Date Type Department Care Team Description 11/05/2012 Refill [facility] Mabel Bedolla Refill Request FAMILY MEDICINE MD Nomi 2023 [facility] eet [address] [address] [place], [place] [address] (Wo rk) Social History Tobacco Use Types [...] (PLAVIX) 75 MG TAKE ONE TABLET BY 30 Tab 10 0 11/05/2012 04/06/2013 tablet MOUTH ONE TIME DAILY documented in this encounter Plan of Treatment Not on filedocumented as of this encounter Visit Diagnoses Not on filedocumented in this encounter Discontinued Medications Medication Sig Discontinue Reason Start Date End Date clopidogrel (PLAVIX) 75 Take 1 Tab by mouth 10/10/2012 11/05/2012 MG tablet one time a day. documented as of this encounter Care Teams Rn Progressive Care Unit Relationship Specialty Start Date End Date Deirdre Bedolla MD PCP - General Family Medicine 06/04/11 01/03/[address] [place] [address] documented as of this encounter
--- OUTSIDE RECORDS SUMMARY | 2022-06-07 21:00 | XMS_ITS | Encounter Summary ---
:1935 Author Organization [employer] Address [address] [address] Phone Care Team Providers Name Role Phone Deirdre Bedolla MD Primary Care Provider [phone] Reason for Visit Reason Comments Referral [facility] Encounter Details Date Type Department Care Team Description 12/12/2012 Notes [facility] Riaz Bedolla ([facility] FAMILY MEDICINE Deirdre Mosher MD Neurosciences) 2023 [facility] eet [address] [address] [place] [address] [phone] (Wo rk) Social History Tobacco Use Types Packs/Day Years Used Date Smoking Tobacco: Never Smokeless Tobacco: Never Alcohol Use Standard Drinks/Week Comments No 0 (1 standard drink = 0.6 oz pure alcoho l) Sex Assigned at Date Recorded Not on file documented as of this encounter Progress Notes Sunday(Ref. Coord)Chandni - 12/12/2012 8:43 AM CDT Referral received and faxed to [facility]. Patient will receive a call to schedule appointment from that facility. For questions, please have patient call [phone]. Thank you documented in this encounter Plan of Treatment Not on filedocumented as of this encounter Visit Diagnoses Not on filedocumented in this encounter Care Teams Frit Mixer Relationship Specialty Start Date End Date Deirdre Bedolla MD PCP - General Family Medicine 06/04/11 01/03/17[address] [address] documented as of this encounter
--- OUTSIDE RECORDS SUMMARY | 2022-06-07 21:00 | XMS_ITS | Encounter Summary ---
:1935 Author Organization [employer] Address [address] [address] Phone Care Team Providers Name Role Phone Deirdre Bedolla MD Primary Care Provider [phone] Encounter Details Date Type Department Care Team Description 12/31/2012 Office Visit [facility] UROLOGY Tavo Ro, Overactive bladder (Primary Dx); [address] [facility] BPH (benign prostatic hyperplasia) [place] [address] 2023 [facility] [phone] [place], [place] [id number] Social History Tobacco Use Types Packs/Day Years Used Date Smoking Tobacco: Never Smokeless Tobacco: Never Alcohol Use Standard Drinks/Week Comments No 0 (1 standard drink = 0.6 oz pure alcoho l) Sex Assigned at Date Recorded Not on file documented as of this encounter Last Filed Vital Signs Vital Sign Reading Time Taken Comments Blood Pressure 103/59 12/31/2012 10:10 AM CDT Pulse 73 12/31/2012 10:10 AM CDT Temperature - - Respiratory Rate - - Oxygen Saturation - - Inhaled Oxygen Concentration - - Weight 81.2 kg (179 lb) 12/31/2012 10:10 AM CDT stated Height 177.8 cm (5' 10) 12/31/2012 10:10 AM CDT stated Body Mass Index 25.68 12/31/2012 10:10 AM CDT documented in this encounter Patient Instructions Patient InstructionsWhTavo dwyer MD - 12/31/2012 12:04 PM CDT We are going to try switching to [id number] instead of the detrol and see if we can get an additional improvement. documented in this encounter Ordered Prescriptions Prescription Sig Dispensed Refills Start Date End Date oxybutynin SR (DITROPAN Take 1 Tab by mouth 30 Tab 12 03/11/2013 XL) 15 MG 24 hour one time a day. Do tabletIndications: not crush. Overactive bladder documented in this encounter Progress Notes Tavo Ro MD - 01/01/2013 1:28 PM CDT [facility] Patient Name: SIMON CASTILLO Date of Service: 12/31/2012 : 1935 Age: 77Y Sex: M DC Site MRN: Patient Loc/Room #: [facility]/ Provider: Tavo Ro MD, Urology OFFICE NOTE SITE: [facility] Simon is here in followup, 77 years old with refractory urgency and frequency. He has had this problem for a long time, previously taken care of by Dr. Heaton, but it was made ultimately much worse after a hospitalization for meningitis. We have been trying to get things back under control with medicines. I did a cystoscopy in October, which showed no lesions, just a lot of trabeculation and BPH. He iscurrently on Flomax and Detrol. The Detrol we prescribed was high dose; 4 mg did not work so we increased it to 8 mg a day. He tolerates that well and it does definitely make an impact on his symptoms,but we have been unable to get it covered with a prior authorization. International prostate symptomscore previously was 35; on the twice a day Detrol symptom score is down to 24, so has had a nice improvement. He does feel that sometimes he is not emptying very well; otherwise side effects are well tolerated. ON EXAM: His abdomen is soft and nontender. Bladder is nonpalpable and nontender. Kidneys nonpalpable and nontender. Penis and testicles normal. Bladder ultrasound was performed approximately 1 hour after voiding and he had a residual urine of 178 mL, so perhaps he is retaining a little bit now on the twice a day Detrol. Urinalysis was not done today. IMPRESSION: BPH with lower urinary symptoms with worsening after meningitis treatment. We are going to continue to try to work on this with medicines and let the brain heal, which may ultimately get him back to baseline. I am going to switch him to oxybutynin the 15 mg dose to see if we can get the improvement we would like. He has already tried VESIcare at high dose as well and trospium previously by Dr. Heaton. We will see him back in a month. Hopefully were making some progress at this point, otherwise we will need to consider procedural alternatives like Botox injections and so forth. Tavo Ro MD [facility] Urology [facility] U[facility] cc: /SCW Job ID: [id number] /[id number] Document ID: [id number] Tavo Ro MD - 12/31/2012 10:27 AM CDT This note has been dictated. Cristina Guzman LPN - 12/31/2012 10:10 AM CDT Fall Risk Yes: Walker documented in this encounter Plan of Treatment Not on filedocumented as of this encounter Procedures Procedure Name Priority Date/Time Associated Diagnosis Comme nts US URINE CAPACITY Routine 12/31/2012 10:30 AM CDT Overactive b ladder MEASURE documented in this encounter Visit Diagnoses Diagnosis Overactive bladder - Primary Hypertonicity of bladder BPH (benign prostatic hyperplasia) Unspecified hyperplasia of prostate with out urinary obstruction and other lower urinary tract symptoms (LUTS) documented in this encounter Orders Procedures Count Last Ordered Date First Ordered Date US URINE CAPACITY MEASURE 1 12/31/2012 documented in this encounter Care Teams Block Mechanic Relationship Specialty Start Date End Date Deirdre Bedolla MD PCP - General Family Medicine 06/04/11 01/03/[address] [address] documented as of this encounter
--- OUTSIDE RECORDS SUMMARY | 2022-06-07 21:00 | XMS_ITS | Encounter Summary ---
:1935 Author Organization [employer] Address [address] [address] Phone Care Team Providers Name Role Phone Deirdre Bedolla MD Primary Care Provider [phone] Reason for Visit Reason Comments Follow Up BPH Encounter Details Date Type Department Care Team Description 01/28/2013 Office Visit [facility] UROLOGY Tavo Ro BPH (benign prostatic hyperp lasia) (Primary Dx); [address] [facility] [address] Mellissa [place] [address] 2023 [facility] [phone] [place], [place] [id number] Social History Tobacco Use Types Packs/Day Years Used Date Smoking Tobacco: Never Smokeless Tobacco: Never Alcohol Use Standard Drinks/Week Comments No 0 (1 standard drink = 0.6 oz pure alcoho l) Sex Assigned at Date Recorded Not on file documented as of this encounter Last Filed Vital Signs Vital Sign Reading Time Taken Comments Blood Pressure 113/70 01/28/2013 1:14 PM CDT Pulse 60 01/28/2013 1:14 PM CDT Temperature - - Respiratory Rate - - Oxygen Saturation - - Inhaled Oxygen Concentration - - Weight 79.8 kg (176 lb) 01/28/2013 1:14 PM CDT stated Height 177.8 cm (5' 10) 01/28/2013 1:14 PM CDT stated Body Mass Index 25.25 01/28/2013 1:14 PM CDT documented in this encounter Patient Instructions Patient InstructionsWhTavo dwyer MD - 01/28/2013 1:34 PM CDT We are going to try to add biofeedback to see if we can make some more progress. Stay on the oxybutynin for now. You might get a response to the dry mouth with sugar free hard candies. See me back in 2months. documented in this encounter Progress Notes Tavo Ro MD - 01/30/2013 11:16 AM CDT [facility] Patient Name: SIMON CASTILLO Date of Service: 01/28/2013 : 1935 Age: 77Y Sex: M DC Site MRN: Patient Loc/Room #: BRDUR/ Provider: Tavo Ro MD, Urology OFFICE NOTE SITE: [facility] SUBJECTIVE: Simon is here in follow up. He is 77 years old. He has a history of BPH and overactivebladder. Previously was taken care of by Dr. Heaton. He has been on Flomax and Detrol. International prostate symptom score on that protocol went from 35 from the 24 with well-tolerated side effects. We switched at his last visit to oxybutynin because they were not covering high dose Detrol. The 50 mg of oxybutynin is helping him out. We have been discussing the possibility of doing a Botox injection if we are not continuing to see progress. Today he feels like things are still getting better. He has had a fairly dry mouth, but he urinated 11 times in the past 24 hours; 3 times in the night. He said to me that he feels like his problem is somewhat in his mind where he always feels like he should be going to the bathroom, but that he does not actually need to. OBJECTIVE: On exam his abdomen is soft and nontender. Bladder is nonpalpable and nontender. Kidneys are normal. Penis and testicles normal. Rectal exam was not repeated. IMPRESSION: We had discussion about potential options. I do think that with biofeedback we could potentially undo the mental aspect of the problem, and he was in favor of trying that so we have orderedthat. We will get him on that and I will see him back in 2 months. Regarding the dry mouth, I advised him to take to use some sugar-free hard candies to see if we can get that to e silence a little bit. We will see him back in [address]. Tavo Ro MD [facility] Urology cc: /SCW Job ID: [id number] /[id number] Document ID: [id number] Tavo Ro MD - 01/28/2013 1:34 PM CDT This note has been dictated. Cristina Guzman LPN - 01/28/2013 1:14 PM CDT Fall Risk Yes: Walker documented in this encounter Plan of Treatment Scheduled Orders Name Type Priority Associated Diagnoses Order S chedule BIOFEEDBACK Procedures Routine Urgency incontinence Ordered : 01/28/2013 [place]/URO/RECTAL documented as of this encounter Visit Diagnoses Diagnosis BPH (benign prostatic hyperplasia) - [facility] jennifer Unspecified hyperplasia of prostate with out urinary obstruction and other lower urinary tract symptoms (LUTS) Urgency incontinence Urge incontinence documented in this encounter Discontinued Medications Medication Sig Discontinue Reason Start Date End Date tolterodine ER (DETROL Take 2 Caps by Changed to an 11/20/2012 LA) 4 MG 24 hour mouth one time a alternate therapy capsule day. Swallow whole; do not crush, chew, or open documented as of this encounter Care Teams Executive Vp Relationship Specialty Start Date End Date Deirdre Bedolla MD PCP - General Family Medicine 06/04/11 01/03/[address] [address] documented as of this encounter
--- OUTSIDE RECORDS SUMMARY | 2022-06-07 21:00 | XMS_ITS | Encounter Summary ---
:1935 Author Organization [employer] Address [address] [address] Phone Care Team Providers Name Role Phone Deirdre Bedolla MD Primary Care Provider [phone] Reason for Visit Reason Comments Refill Request Encounter Details Date Type Department Care Team Description 02/02/2013 Refill [facility] Mabel Bedolla Refill Request FAMILY MEDICINE MD Nomi 2023 [facility] eet [address] [address] [place], [place] [address] (Wo rk) Social History Tobacco Use Types [...] BY MOUTH TWICE DAILY NEEDED FOR PAIN meloxicam (MOBIC) 15 MG TAKE ONE TABLET BY 30 Tab 0 01/0602/03/2013 tablet MOUTH ONE TIME DAILY WITH FOOD documented in this encounter Plan of Treatment Not on filedocumented as of this encounter Visit Diagnoses Not on filedocumented in this encounter Discontinued Medications Medication Sig Discontinue Reason Start Date End Date meloxicam (MOBIC) 15 MG Take 1 Tab by mouth 12/10/2012 02/03/2013 tablet one time a day. Take with food. traMADol (ULTRAM) 50 MG TAKE ONE OR TWO 12/10/2012 0 02/03/2013 tablet TABLETS BY MOUTH TWICE DAILY NEEDED FOR PAIN documented as of this encounter Care Teams Set Up Mechanic Coating Machines Relationship Specialty Start Date End Date Deirdre Bedolla MD PCP - General Family Medicine 06/04/11 01/03/[address] [address] documented as of this encounter
--- OUTSIDE RECORDS SUMMARY | 2022-06-07 21:00 | XMS_ITS | Encounter Summary ---
:1935 Author Organization [employer] Address [address] [address] Phone Care Team Providers Name Role Phone Deirdre Bedolla MD Primary Care Provider [phone] Reason for Visit Reason Onset Date Comments Refill Request 11/17/2012 Encounter Details Date Type Department Care Team Description 11/17/2012 Refill [facility] UROLOGY Marixa Zee CMA Refill Request [address] [place] [id number] Social History Tobacco Use Types Packs/Day Years [...] Take 1 Cap by mouth 90 Cap 4 05/20/2013 MG 24 hour capsule one time a day. Capsules should be swallowed whole; do not crush, chew, or open documented in this encounter Plan of Treatment Not on filedocumented as of this encounter Visit Diagnoses Not on filedocumented in this encounter Discontinued Medications Medication Sig Discontinue Reason Start Date End Date tamsulosin (FLOMAX) 0.4 Take 1 Cap by mouth 10/22/2012 11/17/2012 MG 24 hour capsule one time a day. Capsules should be swallowed whole; do not crush, chew, or open documented as of this encounter Care Teams Elevator Constructor Hydraulic Relationship Specialty Start Date End Date Deirdre Bedolla MD PCP - General Family Medicine 06/04/11 01/03/[address] [address] documented as of this encounter
--- OUTSIDE RECORDS SUMMARY | 2022-06-07 21:00 | XMS_ITS | Encounter Summary ---
:1935 Author Organization [employer] Address [address] [address] Phone Care Team Providers Name Role Phone Rima Bedolla MD Primary Care Provider [phone] Reason for Visit Reason Onset Date Comments Medication Information 03/16/2013 Encounter Details Date Type Department Care Team Description 03/16/2013 Telephone [facility] Farhana Hurley, Medication Information FAMILY MEDICINE APPLE PEELER OPERATOR 2023 [place], [place] [address] Social History Tobacco Use Types Packs/Day Years Used Date Smoking Tobacco: Never Smokeless Tobacco: Never Alcohol Use Standard Drinks/Week Comments No 0 (1 standard drink = 0.6 oz pure alcoho l) Sex Assigned at Date Recorded Not on file documented as of this encounter Miscellaneous Notes Telephone Encounter - Farhana Hurley LPN - 03/16/2013 12:47 PM CDT Message copied by FARHANA HURLEY on SatMar 16, 2013 12:47 PM ------ Message from: RIMA JONES Created: SatMar 16, 2013 12:17 PM Contact: Carlos A-Mary Ann Tilley news! I gave 90 more. ----- Message ----- From: Farhana Hurley LPN Sent: 03/16/2013 12:04 PM To: Rima Bedolla MD Refill sent ----- Message ----- From: Estrella Quinones Sent: 03/16/2013 10:19 AM To: [facility] Please call Mary Ann at # above if needed. Pt's medication is working well-Tylenol with codeine. (has 1 pill left) Could a refill be called or sent to the [facility] in [place]. Thank-you, Estrella Quinones Call Center Ext [phone] ------ documented in this encounter Plan of Treatment Not on filedocumented as of this encounter Visit Diagnoses Not on filedocumented in this encounter Care Teams Master [place] Relationship Specialty Start Date End Date Rima Bedolla MD PCP - General Family Medicine 06/04/11 01/03/[address] [address] documented as of this encounter
--- OUTSIDE RECORDS SUMMARY | 2022-06-07 21:00 | XMS_ITS | Encounter Summary ---
:1935 Author Organization [employer] Address [address] [address] Phone Care Team Providers Name Role Phone Deirdre Bedolla MD Primary Care Provider [phone] Reason for Visit Reason Onset Date Comments Refill Request 01/28/2013 Encounter Details Date Type Department Care Team Description 01/28/2013 Refill [facility] UROLOGY Marixa Zee, INTERNAL SPECIALIST Refill Request [address] [place] [id number] Social History Tobacco Use Types Packs/Day Years [...] bladder documented in this encounter Care Teams Sales And Service Representative Relationship Specialty Start Date End Date Deirdre Bedolla MD PCP - General Family Medicine 06/04/11 01/03/[address] [address] documented as of this encounter
--- OUTSIDE RECORDS SUMMARY | 2022-06-07 21:01 | XMS_ITS | Encounter Summary ---
:1935 Author Organization [employer] Address [address] [address] Phone Care Team Providers Name Role Phone Deirdre Bedolla MD Primary Care Provider [phone] Encounter Details Date Type Department Care Team Description 07/15/2012 Scanned - [facility] Elsewhere, Pcp Reports [address] [place] [address] Social History Tobacco Use Types [...] Diagnosis Comme nts EXTERNAL CARDIOLOGY DOCUMENTATION Routine 07/07/2012 documented in this encounter Results EXTERNAL CARDIOLOGY DOCUMENTATION (07/07/2012) Narrative This result has an attachment that is no t available. Pcp Elsewhere IP ECG ORDERABLES documented in this encounter Visit Diagnoses Not on filedocumented in this encounter Care Teams Medical Equipment Repair Technician Relationship Specialty Start Date End Date Deirdre Bedolla MD PCP - General Family Medicine 06/04/11 01/03/[address] [address] documented as of this encounter
--- OUTSIDE RECORDS SUMMARY | 2022-06-07 21:01 | XMS_ITS | Encounter Summary ---
:1935 Author Organization [employer] Address [address] [address] Phone Care Team Providers Name Role Phone Deirdre Bedolla MD Primary Care Provider [phone] Encounter Details Date Type Department Care Team Description 10/22/2012 Office Visit [facility] UROLOGY Tavo Ro, UTI (urinary tract infection ) (Primary Dx); [address] [facility] BPH (benign prostatic hyperplasia); [place] [address] 2023 [facility] Lower urinary tract symptoms (LUTS) [phone] [place], [place] [id number] Social History Tobacco Use Types Packs/Day Years Used Date Smoking Tobacco: Never Smokeless Tobacco: Never Alcohol Use Standard Drinks/Week Comments No 0 (1 standard drink = 0.6 oz pure alcoho l) Sex Assigned at Date Recorded Not on file documented as of this encounter Last Filed Vital Signs Vital Sign Reading Time Taken Comments Blood Pressure 118/64 10/22/2012 11:03 AM CDT Pulse 71 10/22/2012 11:03 AM CDT Temperature - - Respiratory Rate 22 10/22/2012 11:03 AM CDT Oxygen Saturation - - Inhaled Oxygen Concentration - - Weight - - Height - - Body Mass Index - - documented in this encounter Patient Instructions Patient InstructionsTavo Ro MD - 10/22/2012 11:50 AM CDT We are going to stop the terazosin and vesicare And start flomax and detrol in their place. Follow up in a month. documented in this encounter Ordered Prescriptions Prescription Sig Dispensed Refills Start Date End Date tolterodine ER (DETROL Take 1 Cap by mouth 30 Cap 12 10/0611/20/2012 LA) 4 MG 24 hour capsule one time a day. Swallow whole; do not crush, chew, or open tamsulosin (FLOMAX) 0.4 Take 1 Cap by mouth 30 Cap 12 11/17/2012 MG 24 hour capsule one time a day. Capsules should be swallowed whole; do not crush, chew, or open documented in this encounter Progress Notes Tavo Ro MD - 10/27/2012 10:10 AM CDT [facility] Patient Name: SIMON CASTILLO Date of Service: 10/22/2012 : 1935 Age: 77Y Sex: M DC Site MRN: Patient Loc/Room #: BRDUR/ Provider: Tavo Ro MD, Urology OFFICE NOTE SITE: [facility] DATE OF SERVICE: 10/22/2012 PRIMARY CARE PROVIDER: Deirdre Bedolla. SUBJECTIVE: Simon is here as a new patient for frequency and urgency. He is a former Dr. Heaton patient, most recently seen by Dr. Heaton in November of 2010, so almost 2 years ago. Reviewed his note at that time. Basically, he dictated an examination from that day, but he does have frequency and urgency. Hehas been on some terazosin at 2 mg a day for that. He also is complaining of nocturia. He has daytime frequency, minimal accidents. He has been on the terazosin and more recently on Vesicare 10 mg. He had a residual urine of [address] Heaton in 2010. He has also been on Detrol in the past, and that did not work too well for him, either, so now he reports fairly high international prostate symptom score. No blood in his urine. No recent rectal pains. OBJECTIVE: On exam, his abdomen is soft and nontender. Bladder - nonpalpable and nontender. Kidneys are normal. Rectal exam performed shows an enlarged prostate with no nodules, no induration, and no tenderness. A urinalysis is negative for blood and infection. IMPRESSION AND PLAN: Urgency, frequency, likely secondary to BPH. I recommended cystoscopy because of the persistent frequency and urgency. We inserted the cystoscope using atraumatic and aseptic technique. Panendoscopy was performed and revealed no tumors, inflammation, or stone. There was moderate tr abeculation. No scar tissue. I think there is still some progress to be made. He previously did better on the Detrol, so we are switching him to that from the Vesicare, and I am going to switch him offof the terazosin to Flomax, which is a more full-dose, BPH-type medicine. He will follow up in a month. If he is not making progress, he may need to progress with laser incision or some type of surgical approach. Tavo Ro MD [facility] Urology [facility] Urology cc: Deirdre Bedolla MD /[facility] Job ID: [id number] /[id number] Document ID: [id number] Tavo Ro MD - 10/22/2012 11:47 AM CDT This note has been dictated. Ines Miranda LPN - 10/22/2012 11:00 AM CDT Fall Risk Yes: Walker documented in this encounter Plan of Treatment Not on filedocumented as of this encounter Procedures Procedure Name Priority Date/Time Associated Comments Diagnosis CYSTOURETHROSCOPY Routine 10/22/2012 11:49 BPH (benign AM CDT prostatic hyperplasia) Lower urinary tract symptoms (LUTS) URINALYSIS, REFLEX TO Routine 10/22/2012 11:08 UTI (urinary tr act Results for this CULTURE AM CDT infection) procedure are i n the results section. documented in this encounter Results UA TO ELISABETH PRN (10/22/2012 11:08 AM CDT) Analysis Performed At [facility] Time Signature Type CVMS [facility] Color Ginny [facility] Appearance HAZY [facility] Urine Specific >=1.030 [facility] Page [facility] Urine pH 5.0 [facility] Urine Leukocyte Neg [facility] Esterase [facility] Urine Nitrites Neg [facility] Urine Protein Neg mg/dL [facility] Urine Glucose Neg mg/dL [facility] Urine Ketone Neg mg/dL [facility] Comment: URINALYSIS REFERENCE RANGES ? MICROSCOPIC REFERENCE ?RANGES Appearance: ?Clear ?WBC'S: ? 0-8/HPF Color: ? Yellow ? RBC'S: ? 0-3/HPF Specific Page: ??1.003-1.035 ?Hyaline Casts: 0-3/LPF pH: ?5.0-8.0 Protein: ? Neg-Trace Glucose: ? Neg Ketone: ?Neg Blood: ? Neg Nitrite: ? Neg Leuk Esterase: ? Neg Microscopic Exam: Not Indicated [facility] Comment: Please Note: A routine urine not reflexing to a micro scopic exam automatically means the dipstick blood t est is negative. Urine WBC's Not Indicated /HPF [facility] Urine RBC's Not Indicated /HPF [facility] Urine Culture Reflex Not Indicated [facility] Specimen Anatomical Collection Method Collection Time Receive d Time (Source) Location / / Volume Laterality MANAGER SWITCH 10/22/2012 11:08 10/22/2012 MID-STREAM URINE AM CDT 11:08 AM CD T SPECIMEN OBTAINED BY CLEAN CATCH PROCEDURE / Unknown Tavo Ro MD EC URINE ORDERABLES Performing Organization Address City/State/ZIP Code Phon e Number [facility] documented in this encounter Visit Diagnoses Diagnosis UTI (urinary tract infection) - Primary Urinary tract infection, site not specif ied BPH (benign prostatic hyperplasia) Unspecified hyperplasia of prostate with out urinary obstruction and other lower urinary tract symptoms (LUTS) Lower urinary tract symptoms (LUTS) Other symptoms involving urinary system documented in this encounter Discontinued Medications Medication Sig Discontinue Reason Start Date End Date VESICARE 10 MG tablet TAKE ONE TABLET BY Changed to an 06/11/2012 10/22/2012 MOUTH ONE TIME alternate therapy DAILY terazosin 2 MG capsule TAKE ONE CAPSULE BY Changed to an 10/13/2011 10/22/2012 MOUTH NIGHTLY AT alternate therapy BEDTIME documented as of this encounter Orders Procedures Count Last Ordered Date First Ordered Date CYSTOURETHROSCOPY 1 10/22/2012 documented in this encounter Care Teams Accountant Clerk Relationship Specialty Start Date End Date Deirdre Bedolla MD PCP - General Family Medicine 06/04/11 01/03/[address] [address] documented as of this encounter
--- OUTSIDE RECORDS SUMMARY | 2022-06-07 21:01 | XMS_ITS | Encounter Summary ---
:1935 Author Organization [employer] Address [address] [place] [address] [address] Phone Care Team Providers Name Role Phone Deirdre Bedolla MD Primary Care Provider [phone] Reason for Visit Reason Comments Refill Request Encounter Details Date Type Department Care Team Description 07/17/2012 Refill [facility] Mabel Bedolla Refill Request FAMILY MEDICINE MD Nomi 2023 [facility] [address] [address] [place], [place] [address] (Wo rk) Social History Tobacco Use Types Packs/Day Years Used Date Smoking Tobacco: Never Smokeless Tobacco: Never Alcohol Use Standard Drinks/Week Comments No 0 (1 standard drink = 0.6 oz pure alcoho l) Sex Assigned at Date Recorded Not on file documented as of this encounter Ordered Prescriptions Prescription Sig Dispensed Refills Start Date End Date hydrochlorothiazide 25 MG TAKE ONE TABLET 90 Tab 0 07/1710/10/2012 tablet BY MOUTH ONE TIME DAILY documented in this encounter Plan of Treatment Not on filedocumented as of this encounter Visit Diagnoses Not on filedocumented in this encounter Discontinued Medications Medication Sig Discontinue Reason Start Date End Date hydrochlorothiazide 25 MG TAKE ONE TABLET 04/03/2012 07/17/2012 tablet BY MOUTH ONE TIME DAILY documented as of this encounter Care Teams Patient Registration Manager Relationship Specialty Start Date End Date Deirdre Bedolla MD PCP - General Family Medicine 11/28/11 6/29/[address] [place] [address] documented as of this encounter
--- OUTSIDE RECORDS SUMMARY | 2022-06-07 21:01 | XMS_ITS | Encounter Summary ---
:1935 Author Organization [employer] Address [address] [address] Phone Care Team Providers Name Role Phone Deirdre Bedolla MD Primary Care Provider [phone] Reason for Visit Reason Comments Refill Request Encounter Details Date Type Department Care Team Description 10/27/2012 Refill [facility] Mabel Bedolla Refill Request FAMILY MEDICINE MD Nomi 2023 [facility] eet [address] [address] [place], [place] [phone] (Wo rk) Social History Tobacco Use Types [...] 25 MG Take 1 Tab by mouth 45 Tab 3 0 10/27/2012 04/23/2013 tablet one time a day. documented in this encounter Plan of Treatment Not on filedocumented as of this encounter Visit Diagnoses Not on filedocumented in this encounter Discontinued Medications Medication Sig Discontinue Reason Start Date End Date atenolol (TENORMIN) 25 MG Take 0.5 Tabs by 10/10/2012 10/27/2012 TABS mouth one time a day. documented as of this encounter Care Teams Teacher Learning Disabled Relationship Specialty Start Date End Date Deirdre Bedolla MD PCP - General Family Medicine 06/04/11 01/03/[address] [address] documented as of this encounter
--- OUTSIDE RECORDS SUMMARY | 2022-06-07 21:01 | XMS_ITS | Encounter Summary ---
:1935 Author Organization [employer] Address [address] [address] Phone Care Team Providers Name Role Phone Deirdre Bedolla MD Primary Care Provider [phone] Reason for Visit Reason Comments Aches All Over Confusion Encounter Details Date Type Department Care Team Description 06/23/2012 Emergency [facility] Bahman Hameed Lo w back pain; Center Emergency MD Neck pain; Department [address] Altered mental status; [address] [place] [address] Pyuria; [place] [address] [facility] [place] [address] Systemic inflammatory response syndrome (HCC); [phone] Type 2 diabetes mellitus (HCC); (Work) Coronary artery disease; Elevated liver function tests; Respiratory david lure (HCC); Cardiac arrest (HCC); Ventricular tac hycardia (HCC); SVT (supraventr icular tachycardia); Tachycardia Social History Tobacco Use Types Packs/Day Years Used Date Smoking Tobacco: Never Smokeless Tobacco: Never Alcohol Use Standard Drinks/Week Comments No 0 (1 standard drink = 0.6 oz pure alcoho l) Sex Assigned at Date Recorded Not on file documented as of this encounter Last Filed Vital Signs Vital Sign Reading Time Taken Comments Blood Pressure 178/85 06/23/2012 5:52 PM [facility] Pulse 95 06/23/2012 5:52 PM [facility] Temperature 38.2 ??C (100.7 ??F) 06/23/2012 5:45 PM [facility] Respiratory Rate 28 06/23/2012 5:52 PM [facility] Oxygen Saturation 95% 06/23/2012 5:52 PM [facility] Inhaled Oxygen Concentration - - Weight 110.2 kg (243 lb) 06/23/2012 2:15 PM [facility] Height 172.7 cm (5' 8) 06/23/2012 2:15 PM [facility] Body Mass Index 36.95 06/23/2012 2:15 PM [facility] documented in this encounter Medications at Time of Discharge Medication Sig Dispensed Refills Start Date End Date ASPIRIN LOW DOSE 81 MG 81 mg 1 tablet, 81.000 0 08/05/19 10 tablet ORAL, DAILY, 08/05/09 14:22:55 documented as of this encounter Discharge Disposition Disposition Code Departure Means Destination [facility] documented in this encounter ED Notes Vannessa Valverde RN - 06/23/2012 7:40 PM CST Report called to FIORDALIZA Gross @ [place] ED. [facility] Vannessa Valverde RN - 06/23/2012 7:33 PM CST Pt transferred Code 3 to [place] via ambulance, remains intubated. [facility] Holden Austin MD - 06/23/2012 7:08 PM CSTAssociated Order(s): INTUBATION Patient Simon Castillo Chief Complaint Aches All Over and Confusion HPI Review of Systems Allergies Allergen Reactions ??? Codeine Patient's Medications New Prescriptions No medications on file Previous Medications ASPIRIN LOW DOSE 81 MG TABLET 81 mg 1 tablet, ORAL, DAILY, 08/05/09 14:22:55 ATENOLOL (TENORMIN) 50 MG TABLET Take 75 mg by mouth one time a day. HYDROCHLOROTHIAZIDE 25 MG TABLET TAKE ONE TABLET BY MOUTH ONE TIME DAILY HYDROCODONE-IBUPROFEN (VICOPROFEN) 7.5-200 MG PER TABLET Take 1 Tab by mouth every eight hours as needed for Pain. Take with food. LEVITRA 20 MG TABLET TAKE ONE TABLET BY MOUTH EVERY DAY NEEDED FOR ERECTILE DYSFUNCTION LOSARTAN (COZAAR) 50 MG TABLET TAKE ONE TABLET BY MOUTH ONE TIME DAILY METFORMIN (GLUCOPHAGE) 1000 MG TABLET TAKE ONE TABLETS BY MOUTH IN THE MORNING AND TWO IN THE EVENING METHOCARBAMOL (ROBAXIN) 500 MG TABLET Take 1-2 Tabs by mouth four times a day. OMEPRAZOLE (PRILOSEC) 40 MG CAPSULE Take 1 Cap by mouth one time a day. Take before meals. Do not crush. POTASSIUM CHLORIDE CR (K-DUR, KLOR-CON M) 20 MEQ TABLET TAKE ONE TABLET BY MOUTH ONE TIME DAILY TERAZOSIN 2 MG CAPSULE TAKE ONE CAPSULE BY MOUTH NIGHTLY AT BEDTIME VESICARE 10 MG TABLET TAKE ONE TABLET BY MOUTH ONE TIME DAILY Modified Medications No medications on file Discontinued Medications ATENOLOL (TENORMIN) 50 MG TABLET 50, mg, ORAL, DAILY, 0, 0, 05/12/06 3:23:34, Substitution Permitted, current med (Hx), Constant Indicator HYDROCODONE-ACETAMINOPHEN (NORCO) 5-325 MG PER TABLET Take 1-2 Tabs by mouth every four hours as needed for Pain. Acetaminophen should be limited to 4000 mg per day. OXAPROZIN (DAYPRO) 600 MG TABLET Take 1 Tab by mouth two times a day. SIMVASTATIN (ZOCOR) 40 MG TABLET TAKE ONE TABLET BY MOUTH ONE TIME DAILY IN THE P.M. TADALAFIL (CIALIS) 10 MG TABLET Take 1 Tab by mouth as needed for Erectile dysfunction. Past Medical History: Past Medical History Diagnosis Date ??? DM type 2 (diabetes mellitus, type 2) ??? Hypertension ??? 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 CAD (coronary artery disease) with history of NV and stent placement ??? Hyperlipidemia ??? Diverticulosis Past Surgical History: Past Surgical History Procedure Date ??? Colonoscopy 05/02/2006 Junito Noel MD ??? Coronary angioplasty with stent placement ??? Back surgery L4 laminectomy, multiple level cervical fusion ??? Joint replacement left hip ??? Shoulder surgery right rotator cuff Family History: His family history is not on file. Social History: He reports that he has never smoked. He has never used smokeless tobacco. He reportsthat he does not drink alcohol. Exam: BP 178/85 Pulse 95 Temp(Src) 100.7 ??F (38.2 ??C) (Axillary) Resp 28 Ht 1.727 m (5' 8) Wt110.224 kg (243 lb) BMI 36.95 kg/m2 SpO2 95% Physical Exam Lab Results: Results for orders placed during the hospital encounter of 06/23/12 GLUCOSE, METER Collection Time 06/23/12 6:14 PM Component Value Range GLUCOSE, METER 177 (*) 70 - 99 mg/dL LIPASE Collection Time 06/23/12 3:45 PM Component Value Range LIPASE 7 (*) 12 - 84 IU/L LACTIC ACID, MARITA Collection Time 06/23/12 3:45 PM Component Value Range LACTIC ACID, MARITA 2.0 0.5 - 2.2 mmol/L CALCIUM, IONIZED Collection Time 06/23/12 3:22 PM Component Value Range IONIZED CALCIUM 4.6 4.6 - 5.3 mg/dl Lab results are reviewed as documented in the electronic chart. Rad Results: Xr Chest 2 Views 06/23/2012 TWO VIEW CHEST FINDINGS: There is borderline cardiac enlargement. The vascular structuresappear within normal limits. No infiltrates or effusions are demonstrated. 06/23/2012 1. No acute findings of the chest are demonstrated. 2. Chronic degenerative findings are demonstrated throughout the thoracic spine. Ct Head Wo Contrast 06/23/2012 CT HEAD WITHOUT CONTRAST INDICATION: Altered mental status, fever. FINDINGS: There are tortuous subarachnoid vessels on the right which were evident on 10/31/2007 CT. There is no definitive evidence for acute blood product. Mild hypodensities in the surrounding periventricular white matter. There is no mass effect or midline shift. There is no evidence for subacute territorial infarct. Density within the scalp anteriorly in the vertex, correlate clinically. There is a right calvarial lytic lesion which does appear stable compared to 10/31/2007. The calvarium is intact. 06/23/2012 No acute intracranial process by CT. Radiographs interpreted by the ED physician will be over-read by a radiologist and the results will be available in the electronic chart. Other Results: Emergency Department Course: I assumed care of this patient from Dr. Bahman Hameed at routine end of shift change and plan was for patient to be transferred to [place] for further evaluation given complaints of severe back pain and altered mental status with concern for discitis versus epidural abscess or even meningitis. Dr. Hameed reported that patient had been somewhat agitated with altered mental status and had been receiving Ativan as well as Zyprexa. Patient was being transferred as MRI at our facility is currently downand unavailable. I was called emergently into the room by nurse as patient was becoming more agitated and uncooperative and also appeared to be having rigors versus partial complex seizures as patient remained awake and alert and was able to follow commands during his tremoring. This situation was complicated by the fact the patient did not have his hearing aids and was too agitated to leave them in and we were having difficulty assuring that he was able to hear and/or understand instructions. Patient sats were in the mid to low 80s and it was difficult to keep pulse oximeter on either the patient's finger or year and patient was moving so much that accurate blood pressure reading was also unable to be obtained. Given these difficulties with monitoring the patient and his safety as well as the safety of EMS crew trying to transport the patient to obtain additional diagnostic information as MRI at our facility is down, there was a discussion with his regarding risks benefits and alternatives to intubation for airway protection and treatment of respiratory failure as well as to provide additional sedation. Patient's was in agreement to this plan. Patient was transferred to room one and with respiratory therapy and pharmacy in attendance patient had RSI performed for his agitation and progressive respiratory failure and agitation. The patient was premedicated with 75 mcg of fentanyl, followed by 20 mg of etomidate, and 100 mg of IV succinylcholine. Initial attempt with 8-0 endotracheal tube was unsuccessful and patient was subsequently intubated utilizing glide scope and 7.5 endotracheal tube. Following intubation patient had cardiac arrest and CPR was administered with one round of epi and atropine. After 2 minutes of compression patient had palpable carotid pulse and was noted to be in a sinus tachycardia which quickly changed into ventricular tachycardia with loss of pulses and patient was shocked once. CPR was again initiated and patient had return of pulses. When compressions were held patient was noted to again be in a tachycardic region which appear to be consistent with SVT and was given adenosine at 6 mg followed by 12 mg. Patient's heart rate significantly slowed down into the 150s from greater than 220. Patient received additional sedation in the form of 5 mg of IV Versed as well as fluid boluses and was started on propofol drip. Patient's chest x-ray was reviewed and endotracheal tube was noted to be high and was advanced 2-3cm by respiratory therapy. OG tube is noted to be in good position. Patient's repeat EKG shows sinus tachycardia ventricular rate [address] depression in the lateral leads 34 and 5 without any evidence of ST elevation. EMS crew is available to transport the patient at this time and I contacted Dr. Ying the accepting physician in [place] regarding change in patient's status. He is aware the patient is intubated and sedated and at this time may need additional stabilization before further diagnostic tests can be performed. Patient's was at bedside throughout resuscitation and his son Jona is in the processof driving up from the [facility] to [place]. Patient has received IV antibiotics in the form of Levaquin and vancomycin is in the process of receiving IV fluids. No further ED intervention or treatment is necessary at this time Procedures: Intubation Performed by: HOLDEN AUSTIN Authorized by: HOLDEN AUSTIN Consent: Verbal consent obtained. The procedure was performed in an emergent situation. Risks and benefits: risks, benefits and alternatives were discussed Consent given by: spouse Indications: respiratory distress and airway protection Intubation method: fiberoptic oral Patient status: paralyzed (RSI) Preoxygenation: BVM Pretreatment medications: fentanyl Sedatives: etomidate Paralytic: succinylcholine Laryngoscope size: Mac 3 Tube size: 7.5 mm Tube type: cuffed Number of attempts: 2 Ventilation between attempts: BVM Cricoid pressure: yes Cords visualized: yes Post-procedure assessment: chest rise and ETCO2 monitor Breath sounds: equal Cuff inflated: yes ETT to lip: 21 cm Tube secured with: ETT rojas Chest x-ray interpreted by me. Chest x-ray findings: endotracheal tube too high Tube repositioned: tube repositioned successfully Patient tolerance: Patient tolerated the procedure well with no immediate complications. Assessment: 724.2 Low back pain 723.1 Neck pain 780.97 Altered mental status 791.9 Pyuria 995.90 Systemic inflammatory response syndrome 250.00 Type 2 diabetes mellitus 414.00 Coronary artery disease 790.6 Elevated liver function tests 518.81 Respiratory failure 427.5 Cardiac arrest 427.1 Ventricular tachycardia 427.89 SVT (supraventricular tachycardia) Plan: Transfer Critical care time: 30 minutes [facility] Holden Austin MD 06/23/12 1925 [facility] Vannessa Valverde RN - 06/23/2012 7:05 PM CST EMS crew in room. Verbal report at bedside. [facility] Vannessa Valverde RN - 06/23/2012 6:47 PM CST Code Blue called. See paper chart for documentation. [facility] Vannessa Valverde RN - 06/23/2012 6:45 PM CST MD attempting intubation. See paper documentation for intubation record. [facility] Vannessa Valverde RN - 06/23/2012 6:41 PM CST Pt moved to room 1 for RSI. ER [facility] Vannessa Valverde RN - 06/23/2012 6:19 PM CST Pt's agitation increased. Attempting to remove IV's. Respirations increased to 40 BPM. MD called to room. [facility] Vnanessa Valverde RN - 06/23/2012 5:45 PM CST Attempted oral temp check. Pt bit down on probe. Axillary temp 100.7. Dr. Hameed updated. [facility] Vannessa Valverde RN - 06/23/2012 5:30 PM CST Pt alert to person. Repeated attempts to remove gown & nasal cannula. Unable to redirect pt. [facility] Vannessa Valverde RN - 06/23/2012 5:00 PM CST Vancomycin 1g in 250 mL NS IVPB started @ rate of 150 mL/hr. ER [facility] NET Vannessa Valverde RN - 06/23/2012 4:40 PM CST Pt appears agitated. Oriented to person only. Dr. Hameed in room discussing results w/ pt's . ER [facility] NET Vannessa Valverde RN - 06/23/2012 4:11 PM CST Returned from radiology. ER [facility] Bahman Hameed MD - 06/23/2012 2:57 PM CST Patient Simon Castillo Chief Complaint Aches All Over and Confusion HPI Comments: Patient is a 76-year-old male who was in his normal state of health until approximately 4 days ago when he began experiencing back pain. He thought it was due to a back strain. Was seen in this emergency department 4 days ago for evaluation of his low back pain. X-rays showed degenerative changes. He was prescribed an opioid and a muscle relaxer. 3 days ago, he began displaying periods of confusion. His became concerned with the medication, so she stopped the prescribed medicines and switched to ibuprofen. The back pain has become more severe. He is now having a great deal of difficulty ambulating because of pain. He has developed neck pain. He has had a fever up to 102.5. He has had a decreased appetite. He has had urinary frequency with small amounts of urine. He was seen initially today in the outpatient clinic. Laboratory studies were started and he was sent to the emergency department for evaluation. Chest x-ray did not show infiltrate today. Patient is a 76 year old male presenting with muscle aches and confusion. The history is provided bythe patient, the spouse and medical records. Aches All Over Associated symptoms include headaches. Pertinent negatives include no vomiting, no dysuria, no hematuria, no cough and no rash. Confusion Associated symptoms include patient experiences confusion. Review of Systems Constitutional: Positive for fever and diaphoresis. Negative for unexpected weight change. Eyes: Negative for visual disturbance. Respiratory: Negative for cough and shortness of breath. Gastrointestinal: Negative for vomiting. Genitourinary: Positive for frequency. Negative for dysuria and hematuria. Skin: Negative for rash. Neurological: Positive for headaches. Psychiatric/Behavioral: Positive for confusion. Allergies Allergen Reactions ??? Codeine Patient's Medications New Prescriptions No medications on file Previous Medications ASPIRIN LOW DOSE 81 MG TABLET 81 mg 1 tablet, ORAL, DAILY, 08/05/09 14:22:55 ATENOLOL (TENORMIN) 50 MG TABLET 50, mg, ORAL, DAILY, 0, 0, 05/12/06 3:23:34, Substitution Permitted, current med (Hx), Constant Indicator HYDROCHLOROTHIAZIDE 25 MG TABLET TAKE ONE TABLET BY MOUTH ONE TIME DAILY HYDROCODONE-ACETAMINOPHEN (NORCO) 5-325 MG PER TABLET Take 1-2 Tabs by mouth every four hours as needed for Pain. Acetaminophen should be limited to 4000 mg per day. HYDROCODONE-IBUPROFEN (VICOPROFEN) 7.5-200 MG PER TABLET Take 1 Tab by mouth every eight hours as needed for Pain. Take with food. LEVITRA 20 MG TABLET TAKE ONE TABLET BY MOUTH EVERY DAY NEEDED FOR ERECTILE DYSFUNCTION LOSARTAN (COZAAR) 50 MG TABLET TAKE ONE TABLET BY MOUTH ONE TIME DAILY METFORMIN (GLUCOPHAGE) 1000 MG TABLET TAKE ONE TABLETS BY MOUTH IN THE MORNING AND TWO IN THE EVENING METHOCARBAMOL (ROBAXIN) 500 MG TABLET Take 1-2 Tabs by mouth four times a day. OMEPRAZOLE (PRILOSEC) 40 MG CAPSULE Take 1 Cap by mouth one time a day. Take before meals. Do not crush. OXAPROZIN (DAYPRO) 600 MG TABLET Take 1 Tab by mouth two times a day. POTASSIUM CHLORIDE CR (K-DUR, KLOR-CON M) 20 MEQ TABLET TAKE ONE TABLET BY MOUTH ONE TIME DAILY SIMVASTATIN (ZOCOR) 40 MG TABLET TAKE ONE TABLET BY MOUTH ONE TIME DAILY IN THE P.M. TADALAFIL (CIALIS) 10 MG TABLET Take 1 Tab by mouth as needed for Erectile dysfunction. TERAZOSIN 2 MG CAPSULE TAKE ONE CAPSULE BY MOUTH NIGHTLY AT BEDTIME VESICARE 10 MG TABLET TAKE ONE TABLET BY MOUTH ONE TIME DAILY Modified Medications No medications on file Discontinued Medications No medications on file Past Medical History: Past Medical History Diagnosis Date ??? Diabetes ??? Hypertension ??? 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 Chronic ischemic heart disease, unspecified ??? Myocardial infarction ??? Hyperlipidemia 01/15/2011 ??? Diverticulosis Past Surgical History: Past Surgical History Procedure Date ??? Colonoscopy 05/02/2006 Sadie ADAMS, Junito Ghotra ??? Coronary angioplasty with stent placement ??? Back surgery L4 laminectomy, multiple level cervical fusion ??? Joint replacement left hip ??? Shoulder surgery right rotator cuff Family History: His family history is not on file. Social History: He reports that he has never smoked. He has never used smokeless tobacco. He reportsthat he does not drink alcohol. Exam: BP 168/96 Pulse 95 Temp(Src) 99.5 ??F (37.5 ??C) (Oral) Resp 28 Ht 1.727 m (5' 8) Wt 110.224 kg (243 lb) BMI 36.95 kg/m2 SpO2 95% Physical Exam Constitutional: He appears well-nourished. He appears ill. He appears distressed. HENT: Head: Normocephalic and atraumatic. Mouth/Throat: Oropharynx is clear and moist. Eyes: Right eye exhibits no discharge. Left eye exhibits no discharge. No scleral icterus. Neck: No JVD present. Rigidity present. Cardiovascular: Normal rate. No murmur heard. Pulmonary/Chest: Effort normal. He has rales. Abdominal: Soft. Bowel sounds are normal. He exhibits no distension and no mass. There is tenderness(mild diffuse). There is no rebound and no guarding. Musculoskeletal: He exhibits tenderness (moderate to severe midline lumbar spine). He exhibits no edema. Neurological: He is alert. He exhibits normal muscle tone. Skin: No rash noted. Psychiatric: He has a normal mood and affect. Lab Results: Recent Results (from the past 12 hour(s)) UA TO CULTUR PRN Component Value Range Type CVMS COLOR LUCILLE CLARITY CLEAR SPECIFIC GRAVITY 1.025 PH URINE 5.5 LEUK ESTERASE Neg NITRITE Neg PROTEIN 30 (*) GLUCOSE URINE Neg KETONE Neg Microscopic Exam: ORDERED URINE WBC 10-20 (*) URINE RBC 3-8 (*) SQUAMOUS EPI Few BACTERIA Few (*) HYALINE CAST 0-3 GRANULAR CAST 3-8 (*) WAXY CAST 0-3 (*) Urine Culture Reflex Ordered SED RATE Component Value Range SED RATE 58 (*) 0 - 15 mm/hr CRP Component Value Range CRP 37.5 (*) 0.0 - 0.8 mg/dL HEMOGRAM Component Value Range WBC 14.2 (*) 3.4 - 10.7 109/L RBC 4.57 4.20 - 5.90 1012/L HGB 13.6 13.0 - 17.0 g/dL HCT 40.4 37.5 - 51.0 % MCV 88.3 82.0 - 99.0 fL MCH 29.6 27.0 - 34.0 pg MCHC 33.6 32.0 - 35.7 g/dL RDW 14.2 11.0 - 15.0 % PLT 133 (*) 150 - 400 109/L URIC ACID Component Value Range URIC ACID 8.2 3.2 - 8.2 mg/dL COMPR MET PANEL Component Value Range SODIUM 132 (*) 134 - 143 mEq/L POTASSIUM 4.0 3.4 - 5.1 mEq/L CHLORIDE 97 (*) 99 - 110 mEq/L CO2 21 (*) 22 - 29 mEq/L GLUCOSE 195 (*) 70 - 99 mg/dL BUN 61 (*) 5 - 24 mg/dL CREATININE 2.32 (*) 0.70 - 1.20 mg/dL GFR CALC 28 (*) CALCIUM 10.5 (*) 8.4 - 10.2 mg/dL PROTEIN, TOTAL 6.7 6.0 - 8.0 gm/dL ALBUMIN 2.7 (*) 3.5 - 5.0 gm/dL ALK PHOSPHATASE 89 40 - 150 IU/L ALT(SGPT) 61 (*) 5 - 40 IU/L AST(SGOT) 49 (*) 10 - 40 IU/L TOTAL BILIRUBIN 2.0 (*) 0.2 - 1.2 mg/dL ANION GAP 14 3 - 15 CALCIUM, IONIZED Component Value Range IONIZED CALCIUM 4.6 4.6 - 5.3 mg/dl LACTIC ACID, MARITA Component Value Range LACTIC ACID, MARITA 2.0 0.5 - 2.2 mmol/L LIPASE Component Value Range LIPASE 7 (*) 12 - 84 IU/L Lab results are reviewed as documented in the electronic chart. Rad Results: noncontrast brain CT shows no acute intracranial abnormality Xr Chest 2 Views 06/23/2012 TWO VIEW CHEST FINDINGS: There is borderline cardiac enlargement. The vascular structuresappear within normal limits. No infiltrates or effusions are demonstrated. 06/23/2012 1. No acute findings of the chest are demonstrated. 2. Chronic degenerative findings are demonstrated throughout the thoracic spine. Radiographs interpreted by the ED physician will be over-read by a radiologist and the results will be available in the electronic chart. Other Results: Postvoid bladder scan showed 147 mL of urine in his bladder Emergency Department Course: Patient is a 76-year-old male who has been sick for approximately 4 days. First symptom was lumbar back pain, for which he was evaluated in this emergency department 4 days ago. X-ray of the spine showsome degenerative changes. He has had progressive low back pain and is now having difficulty ambulating. Over the past 3 days, he has had episodes of confusion, sweats, fever. He has now developed some neck pain as well. He was initially evaluated today in the outpatient clinic. Chest x-ray during that visit was unremarkable. Laboratory studies included an elevated sedimentation rate and CRP as well as a leukocytosis. He was sent to the emergency department for evaluation. At presentation, complained of severe low back pain, headache, and neck pain. No complaints of chestpain. He was alert and oriented x2+ in the month. Laboratory studies performed in the emergency department include blood cultures x2 were obtained. Urine culture pending. Lactate upper limits of normal at 2. Brain CT was performed without contrast that was unremarkable. One of the initial concerns was for possible lumbar spine infection and meningitis. An MRI of the lumbar spine was requested for evaluation, but unfortunately, the MRI machine broke this evening he hadan MRI could not be accomplished in a timely fashion. I was reluctant to perform a lumbar puncture without determining whether there might be an epidural abscess. He was given initially. Antibiotics using Rocephin and vancomycin. Patient did have some increased agitation in the emergency department which was treated with lorazepam. He did complain of urinary frequency, and urinalysis did show pyuria, raising possibility of urinarytract infection. As mentioned above, urine cultures pending. Rocephin should be effective if he doeshave a urinary tract infection. A definite source of infection was not confirmed in the emergency department, but an infection of his lumbar spine remains a concern as to his meningitis as well as urinary tract infection. He does meet criteria for systemic inflammatory response syndrome with an elevated respiratory rate and a leukocytosis. The patient does have elevated liver transaminases and does have some right upper quadrant abdominal tenderness. The significance of those findings is unknown at this time. No laboratory evidence of pancreatitis. I think the patient needs urgent imaging of his lumbar spine with an MRI and possibly lumbar puncture and infectious disease consultation. Therefore, patient was transported to the [place] emergency department for further evaluation. Procedures: Procedures Assessment: 724.2 Low back pain 723.1 Neck pain 780.97 Altered mental status 791.9 Pyuria 995.90 Systemic inflammatory response syndrome 250.00 Type 2 diabetes mellitus 414.00 Coronary artery disease 790.6 Elevated liver function tests Plan: Patient transported by ground ambulance to [facility] for further evaluation. [facility] Bahman Hameed MD 06/23/12 [id number] [facility] TRAWL NET Ildefonso Tam RN - 06/23/2012 2:26 PM CST Patient states he injured his back 4 days ago lifting a bench that was frozen to the ground, he has had back pain since, he has been taking Vicodin and hasn't had a BM since Sat of last week. Patient was seen at [facility] this am. states the pain meds make him confused and he has been getting up frequently at night to void, she also attributes this behavior to the pain meds. ER [facility]WL [facility] Jo-Ann Pollock RN - 06/23/2012 2:05 PM CST Generalized body pain for 4 days. Sent from [facility] for further evaluation. ER TRAWL NET documented in this encounter Plan of Treatment Scheduled Orders Name Type Priority Associated Diagnoses Order S chedule MR LUMBAR SPINE WO Imaging STAT One Time for 1 CONTRAST Occurrences sta rting 06/23/2012 unti l 06/23/2012 documented as of this encounter Procedures Procedure Name Priority Date/Time Associated Diagnosis Comme nts INSERT EMERGENCY 06/23/2012 7:25 PM Respiratory failur e Results for this ENDOTRACH AIRWAY [facility] ([facility]) procedure a re in the results section. XR PORT CHEST 1 STAT 06/23/2012 7:09 PM Result s for this VIEW [facility] procedure are i n the results section. EKG 12-LEAD STAT 06/23/2012 7:03 PM Low back pain Results for this [facility] procedure are i n the results section. GLUCOSE, METER 06/23/2012 6:14 PM Results for this [facility] procedure are i n the results section. CT HEAD WO IV STAT 06/23/2012 4:20 PM Results for this CONTRAST [facility] procedure are i n the results section. LIPASE STAT 06/23/2012 3:45 PM Results f or this [facility] procedure are i n the results section. LACTIC ACID, VENOUS STAT 06/23/2012 3:45 PM Re sults for this [facility] procedure are i n the results section. CULTURE, BLOOD STAT 06/23/2012 3:22 PM Results for this BACTERIAL [facility] procedure are i n the results section. CALCIUM, IONIZED STAT 06/23/2012 3:22 PM Resul ts for this [facility] procedure are i n the results section. CULTURE, BLOOD STAT 06/23/2012 3:10 PM Results for this BACTERIAL [facility] procedure are i n the results section. documented in this encounter Results INSERT EMERGENCY ENDOTRACH AIRWAY (06/23/2012 7:25 PM [facility]) Narrative Holden Austin MD - 06/23/2012 7:25 PM [facility] Holden Austin MD ? 06/23/2012 ??7:25 PM Patient Simon Castillo Chief Complaint Aches All Over and Confusion HPI Review of Systems Allergies Allergen Reactions ? ? Codeine ?? Patient's Medications New Prescriptions No medications on file Previous Medications ASPIRIN LOW DOSE 81 MG TABLET ?81 m g 1 tablet, ORAL, DAILY, 08/05/09 14:22:55 ATENOLOL (TENORMIN) 50 MG TABLET ?T theo 75 mg by mouth one time a day. ?? HYDROCHLOROTHIAZIDE 25 MG TABLET ?T THEO ONE TABLET BY MOUTH ONE TIME DAILY HYDROCODONE-IBUPROFEN (VICOPROFEN) 7.5- 200 MG PER TABLET ?Take 1 Tab by mouth every eight hours as need ed for Pain. Take with food. LEVITRA 20 MG TABLET ?TAKE ONE TABL ET BY MOUTH EVERY DAY NEEDED FOR ERECTILE DYSFUNCTION LOSARTAN (COZAAR) 50 MG TABLET ?JOE E ONE TABLET BY MOUTH ONE TIME DAILY METFORMIN (GLUCOPHAGE) 1000 MG TABLET ?TAKE ONE TABLETS BY MOUTH IN THE MORNING AND TWO IN THE EVEN ING METHOCARBAMOL (ROBAXIN) 500 MG TABLET ?Take 1-2 Tabs by mouth four times a day. OMEPRAZOLE (PRILOSEC) 40 MG CAPSULE ?Take 1 Cap by mouth one time a day. Take before meals. ??Do not crush. POTASSIUM CHLORIDE CR (K-DUR, KLOR-CON M) 20 MEQ TABLET ?TAKE ONE TABLET BY MOUTH ONE TIME DAILY TERAZOSIN 2 MG CAPSULE ?TAKE ??ONE CAPSULE BY MOUTH NIGHTLY AT BEDTIME VESICARE 10 MG TABLET ?TAKE ONE TAB LET BY MOUTH ONE TIME DAILY Modified Medications No medications on file Discontinued Medications ATENOLOL (TENORMIN) 50 MG TABLET ?5 0, mg, ORAL, DAILY, 0, 0, 05/12/06 3:23:34, Substitution Permitted , current med (Hx), Constant Indicator HYDROCODONE-ACETAMINOPHEN (NORCO) 5-325 MG PER TABLET ?Take 1-2 Tabs by mouth every four hours as ne eded for Pain. Acetaminophen should be limited to 4000 mg per day. OXAPROZIN (DAYPRO) 600 MG TABLET ?T theo 1 Tab by mouth two times a day. SIMVASTATIN (ZOCOR) 40 MG TABLET ?T THEO ONE TABLET BY MOUTH ONE TIME DAILY IN THE P.M. TADALAFIL (CIALIS) 10 MG TABLET ?Ta ke 1 Tab by mouth as needed for Erectile dysfunction. Past Medical History: Past Medical History Diagnosis Date ? ? DM type 2 (diabetes mellitus, type 2) ? Hypertension ? 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 CAD (coronary artery disease) ?with history of NV and stent placemen t ? ? Hyperlipidemia ? Diverticulosis ?? Past Surgical History: Past Surgical History Procedure Date ? ? Colonoscopy 05/02/2006 ??Junito Noel MD ? ? Coronary angioplasty with stent placement ? Back surgery ?L4 laminectomy, multiple level cervic al fusion ? ? Joint replacement ?left hip ? ? Shoulder surgery ?right rotator cuff Family History: His family history is no t on file. Social History: ??He ??reports that he h as never smoked. He has never used smokeless tobacco. He reports that he does not drink alcohol. Exam: BP 178/85 Pulse 95 Temp(Src) 100.7 ? ?F (38.2 ??C) (Axillary) Resp 28 Ht 1.727 m (5' 8) Wt 110.22 4 kg (243 lb) BMI 36.95 kg/m2 SpO2 95% Physical Exam Lab Results: Results for orders placed during the hos pital encounter of 06/23/12 GLUCOSE, METER Collection Time 06/23/12 ??6:14 PM ?Component Value Range GLUCOSE, METER 177 (*) 70 - 99 mg/dL LIPASE Collection Time 06/23/12 ??3:45 PM ?Component Value Range LIPASE 7 (*) 12 - 84 IU/L LACTIC ACID, MARITA Collection Time 06/23/12 ??3:45 PM ?Component Value Range LACTIC ACID, MARITA 2.0 ??0.5 - 2.2 mmol/L CALCIUM, IONIZED Collection Time 06/23/12 ??3:22 PM ?Component Value Range IONIZED CALCIUM 4.6 ??4.6 - 5.3 mg/dl Lab results are reviewed as documented i n the electronic chart. Rad Results: Xr Chest 2 Views 06/23/2012 ??TWO VIEW CHEST ?? FINDINGS: ??There is borderline cardiac enlargement. ??The vascular ??st ructures appear within normal limits. ??No infiltrates or effus ions are ??demonstrated. ? 06/23/2012 ? 1. ??No acute findings of the chest are demonstrated. 2. ??Chronic degenerative findings are demonstrated throughout the thoracic ??spine. ?? Ct Head Wo Contrast 06/23/2012 ??CT HEAD WITHOUT CONTRAST ?? INDICATION: Altered mental status, fever. ??FINDINGS: There are tor tuous subarachnoid vessels on the right which were ??evident on CT. There is no definitive evidence for acute blood ??pr oduct. Mild hypodensities in the surrounding periventricular white ??matter. There is no mass effect or midline shift. There is n o evidence for ??subacute territorial infarct. Density within the scalp anteriorly in the ?? vertex, correlate clinically. There is a right calvarial lytic lesion ??which does appear stable compar ed to 10/31/2007. The calvarium is intact. ?? 06/23/2012 ?? No acute intracranial proc ess by CT. Radiographs interpreted by the ED physic iz will be over-read by a radiologist and the results will be av ailable in the electronic chart. Other Results: Emergency Department Course: I assumed care of this patient from Dr. Bahman Hameed at routine end of shift change and plan was for myranda mejia to be transferred to [place] for further evaluation given c omplaints of severe back pain and altered mental status with conc angel for discitis versus epidural abscess or even meningitis. Dr. Hameed reported that patient had been somewhat agitated with altered mental status and had been receiving Ativan as well as Zyp rexa. Patient was being transferred as MRI at our facility is cu rrently down and unavailable. I was called emergently int o the room by nurse as patient was becoming more agitated and u ncooperative and also appeared to be having rigors versus part ial complex seizures as patient remained awake and alert and was able to follow commands during his tremoring. This situation was complicated by the fact the patient did not have his hearing aid s and was too agitated to leave them in and we were having difficu lty assuring that he was able to hear and/or understand instructi ons. Patient sats were in the mid to low 80s and it was difficult to keep pulse oximeter on either the patient's finger or year and patient was moving so much that accurate blood pressure readin g was also unable to be obtained. Given these difficulties with monitoring the patient and his safety as well as the safety of EMS crew trying to transport the patient to obtain addition al diagnostic information as MRI at our facility is down, there wa s a discussion with his regarding risks benefits and altern atives to intubation for airway protection and treatment of respi ratory failure as well as to provide additional sedation. Patient' s was in agreement to this plan. Patient was transferred to room one and with respiratory therapy and pharmacy in attendance patient had R SI performed for his agitation and progressive respiratory fa ilure and agitation. The patient was premedicated with 75 mcg of fentanyl, followed by 20 mg of etomidate, and 100 mg of IV succin ylcholine. Initial attempt with 8-0 endotracheal tube was u nsuccessful and patient was subsequently intubated utilizing gli de scope and 7.5 endotracheal tube. Following intubation patient had cardiac arrest and CPR was administered with one round of epi and atropine. After 2 minutes of compression patient had palpable carotid pulse and was noted to be in a s inus tachycardia which quickly changed into ventricular tachyca rdia with loss of pulses and patient was shocked once. CPR was ag ain initiated and patient had return of pulses. When compressions were held patient was noted to again be in a tachycardic regio n which appear to be consistent with SVT and was given adenos ine at 6 mg followed by 12 mg. Patient's heart rate significantl y slowed down into the 150s from greater than 220. Patient rece ived additional sedation in the form of 5 mg of IV Versed as well as fluid boluses and was started on propofol drip. Patient's ches t x-ray was reviewed and endotracheal tube was noted to be high a nd was advanced 2-3cm by respiratory therapy. OG tube is noted to be in good position. Patient's repeat EKG shows sinus tachyca rdia ventricular rate [address] depression in the lateral leads 34 and 5 without any evidence of ST elevation. EMS crew is available to transport the p atient at this time and I contacted Dr. Ying the accepting phys ician in [place] regarding change in patient's status. He is aware the patient is intubated and sedated and at this time m ay need additional stabilization before further diagnostic tests can be performed. Patient's was at bedside throughout resuscitation and his son Jona is in the process of driving u p from the [facility] to [place]. Patient has received IV antib iotics in the form of Levaquin and vancomycin is in the proces s of receiving IV fluids. No further ED intervention or treatment is necessary at this time Procedures: Intubation Performed by: HOLDEN AUSTIN Authorized by: HOLDEN AUSTIN Consent: Verbal consent obtained. The pr ocedure was performed in an emergent situation. Risks and benefits: risks, benefits and alternatives were discussed Consent given by: spouse Indications: respiratory distress and ai rway protection Intubation method: fiberoptic oral Patient status: paralyzed (RSI) Preoxygenation: BVM Pretreatment medications: fentanyl Sedatives: etomidate Paralytic: succinylcholine Laryngoscope size: Mac 3 Tube size: 7.5 mm Tube type: cuffed Number of attempts: 2 Ventilation between attempts: BVM Cricoid pressure: yes Cords visualized: yes Post-procedure assessment: chest rise an d ETCO2 monitor Breath sounds: equal Cuff inflated: yes ETT to lip: 21 cm Tube secured with: ETT rojas Chest x-ray interpreted by me. Chest x-ray findings: endotracheal tube too high Tube repositioned: tube repositioned suc cessfully Patient tolerance: Patient tolerated the procedure well with no immediate complications. Assessment: 724.2 Low back pain 723.1 Neck pain 780.97 Altered mental status 791.9 Pyuria 995.90 Systemic inflammatory response sy ndrome 250.00 Type 2 diabetes mellitus 414.00 Coronary artery disease 790.6 Elevated liver function tests 518.81 Respiratory failure 427.5 Cardiac arrest 427.1 Ventricular tachycardia 427.89 SVT (supraventricular tachycardia ) Plan: Transfer Critical care time: 30 minutes MDM Procedure Note Holden Austin MD - 06/23/2012 7:08 PM CST Patient Simon Castillo Chief Complaint Aches All Over and Confusion HPI Review of Systems Allergies Allergen Reactions ? ? Codeine Patient's Medications New Prescriptions No medications on file Previous Medications ASPIRIN LOW DOSE 81 MG TABLET 81 mg 1 t ablet, ORAL, DAILY, 08/05/09 14:22:55 ATENOLOL (TENORMIN) 50 MG TABLET Take 7 5 mg by mouth one time a day. HYDROCHLOROTHIAZIDE 25 MG TABLET TAKE O NE TABLET BY MOUTH ONE TIME DAILY HYDROCODONE-IBUPROFEN (VICOPROFEN) 7.5- 200 MG PER TABLET Take 1 Tab by mouth every eight hours as needed for Pain. Take with food. LEVITRA 20 MG TABLET TAKE ONE TABLET BY MOUTH EVERY DAY NEEDED FOR ERECTILE DYSFUNCTION LOSARTAN (COZAAR) 50 MG TABLET TAKE ONE TABLET BY MOUTH ONE TIME DAILY METFORMIN (GLUCOPHAGE) 1000 MG TABLET T THEO ONE TABLETS BY MOUTH IN THE MORNING AND TWO IN THE EVENING METHOCARBAMOL (ROBAXIN) 500 MG TABLET T theo 1-2 Tabs by mouth four times a day. OMEPRAZOLE (PRILOSEC) 40 MG CAPSULE Joe e 1 Cap by mouth one time a day. Take before meals. Do not crush. POTASSIUM CHLORIDE CR (K-DUR, KLOR-CON M) 20 MEQ TABLET TAKE ONE TABLET BY MOUTH ONE TIME DAILY TERAZOSIN 2 MG CAPSULE TAKE ONE CAPSULE BY MOUTH NIGHTLY AT BEDTIME VESICARE 10 MG TABLET TAKE ONE TABLET B Y MOUTH ONE TIME DAILY Modified Medications No medications on file Discontinued Medications ATENOLOL (TENORMIN) 50 MG TABLET 50, mg , ORAL, DAILY, 0, 0, 05/12/06 3:23:34, Substitution Permitted, current med (Hx), Constant Indicator HYDROCODONE-ACETAMINOPHEN (NORCO) 5-325 MG PER TABLET Take 1-2 Tabs by mouth every four hours as needed for Pain. Acetaminophen should be limited to 4000 mg per day. OXAPROZIN (DAYPRO) 600 MG TABLET Take 1 Tab by mouth two times a day. SIMVASTATIN (ZOCOR) 40 MG TABLET TAKE O NE TABLET BY MOUTH ONE TIME DAILY IN THE P.M. TADALAFIL (CIALIS) 10 MG TABLET Take 1 Tab by mouth as needed for Erectile dysfunction. Past Medical History: Past Medical History Diagnosis Date ? ? DM type 2 (diabetes mellitus, type 2) ? ? Hypertension ? ? 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 ? CAD (coronary artery disease) with history of NV and stent placement ? ? Hyperlipidemia ? ? Diverticulosis Past Surgical History: Past Surgical History Procedure Date ? ? Colonoscopy 05/02/2006 Junito Noel MD ? ? Coronary angioplasty with stent placement ? ? Back surgery L4 laminectomy, multiple level cervical fusion ? ? Joint replacement left hip ? ? Shoulder surgery right rotator cuff Family History: His family history is no t on file. Social History: He reports that he has n ever smoked. He has never used smokeless tobacco. He reports that he does not drink alcohol. Exam: BP 178/85 Pulse 95 Temp(Src) 100.7 ? ?F (38.2 ??C) (Axillary) Resp 28 Ht 1.727 m (5' 8) Wt 110.224 kg (243 lb) BMI 36.95 kg/m2 SpO2 95% Physical Exam Lab Results: Results for orders placed during the hos pital encounter of 06/23/12 GLUCOSE, METER Collection Time 06/23/12 6:14 PM Component Value Range GLUCOSE, METER 177 (*) 70 - 99 mg/dL LIPASE Collection Time 06/23/12 3:45 PM Component Value Range LIPASE 7 (*) 12 - 84 IU/L LACTIC ACID, MARITA Collection Time 06/23/12 3:45 PM Component Value Range LACTIC ACID, MARITA 2.0 0.5 - 2.2 mmol/L CALCIUM, IONIZED Collection Time 06/23/12 3:22 PM Component Value Range IONIZED CALCIUM 4.6 4.6 - 5.3 mg/dl Lab results are reviewed as documented i n the electronic chart. Rad Results: Xr Chest 2 Views 06/23/2012 TWO VIEW CHEST FINDINGS: Ther e is borderline cardiac enlargement. The vascular structures appear within normal limits. No infiltrates or effusions are demonstrated. 06/23/2012 1. No acute findings of the c hest are demonstrated. 2. Chronic degenerative findings are demonstrated throughout the thoracic spine. Ct Head Wo Contrast 06/23/2012 CT HEAD WITHOUT CONTRAST CLOVIS CATION: Altered mental status, fever. FINDINGS: There are tortuous subarachnoid vessels on the right which were evident on 10/31/2007 CT. There is no definitive evidence for acute blood product. Mild hypodensities in the surrounding periventricular white matter. There is no mass effect or midline shift. There is no evidence for subacute territorial infarct. Density within the scalp anteriorly in the vertex, correlat e clinically. There is a right calvarial lytic lesion which does appear stable compared to 10/31/2007. The calvarium is intact. 06/23/2012 No acute intracranial process by CT. Radiographs interpreted by the ED physic zi will be over-read by a radiologist and the results will be available in the electronic chart. Other Results: Emergency Department Course: I assumed care of this patient from Dr. Bahman Hameed at routine end of shift change and plan was for patient to be transferred to [place] for further evaluation given complaints of severe back pain and altered mental status with concern for discitis versus epidural abscess or even meningitis. Dr. Hameed reported that patient had been somewhat agitated with altered mental status and had been receiving Ativan as well as Zyprexa. Patient was being transferred a s MRI at our facility is currently down and unavailable. I was called emergently into the room by nurse as patient was becoming more agitated and uncooperative and also appeared to be having rigors versus partial complex seizures as patient remained awake and alert and was able to follow commands during his tremoring. This situation was complicated by the fact the patient did not have his hearing aids and was too agitated to leave them in and we were having difficulty assuring that he was able to hear and/or understand instructions. Patient sats were in the mid to low 80s and it was difficult to keep pulse oximeter on either the patient's finger or year and patient was moving so much that accurate blood pressure reading was also unable to be obtained. Given these difficulties with monitoring the patient and his safety as well as the safety of EMS crew trying to transport the patient to obtain additional diagnostic information as MRI at our facility is down, there was a discussion with his regarding risks benefits and alternatives to intubation for airway protection and treatment of respiratory failure as well as to provide additional sedation. Patient's was in agreement to this plan. Patient was transferred to room one and with respiratory therapy and pharmacy in attendance patient had RSI performed for his agitation and progressive respiratory failure and agitation. The patient was premedicated with 75 mcg of fentanyl, fo llowed by 20 mg of etomidate, and 100 mg of IV succinylcholine. Initial attempt with 8-0 endotracheal tube was unsuccessful and patient was subsequently intubated utilizing glide scope and 7.5 endotracheal tube. Followi ng intubation patient had cardiac arrest and CPR was administered with one round of epi and atropine. After 2 minutes of compression patient had palpable carotid pulse and was noted to be in a sinus tachycardia which quick ly changed into ventricular tachycardia with loss of pulses and patient was shocked once. CPR was again initiated and patient had return of pulses. When compressions were held patient was noted to again be in a tachycardic region which appear to be consistent with SVT and was given adenosine at 6 mg followed by 12 mg. Patient's heart rate significantly slowed down into the 150s from greater than 220. Patient received additional se dation in the form of 5 mg of IV Versed as well as fluid boluses and was started on propofol drip. Patient's chest x-ray was reviewed and endotracheal tube was noted to be high and was advanced 2-3cm by respirato ry therapy. OG tube is noted to be in good position. Patient's repeat EKG shows sinus tachycardia ventricular rate [address] depression in the lateral leads 34 and 5 without any evidence of ST elevation. EMS crew [facility] and I contacted Dr. Ying the accepting physician in [place] regarding change in patient's status. He is aware the patient is intubated and sedated and at this time may need additi onal stabilization before further diagnostic tests can be performed. Patient's was at bedside throughout resuscitation and his son Jona is in the process of driving up from the [facility] to [place]. Mari lentz has received IV antibiotics in the form of Levaquin and vancomycin is in the process of receiving IV fluids. No further ED intervention or treatment is necessary at this time Procedures: Intubation Performed by: HOLDEN AUSTIN Authorized by: HOLDEN AUSTIN Consent: Verbal consent obtained. The pr ocedure was performed in an emergent situation. Risks and benefits: risks, benefits and alternatives were discussed Consent given by: spouse Indications: respiratory distress and ai rway protection Intubation method: fiberoptic oral Patient status: paralyzed (RSI) Preoxygenation: BVM Pretreatment medications: fentanyl Sedatives: etomidate Paralytic: succinylcholine Laryngoscope size: Mac 3 Tube size: 7.5 mm Tube type: cuffed Number of attempts: 2 Ventilation between attempts: BVM Cricoid pressure: yes Cords visualized: yes Post-procedure assessment: chest rise an d ETCO2 monitor Breath sounds: equal Cuff inflated: yes ETT to lip: 21 cm Tube secured with: ETT rojas Chest x-ray interpreted by me. Chest x-ray findings: endotracheal tube too high Tube repositioned: tube repositioned suc cessfully Patient tolerance: Patient tolerated the procedure well with no immediate complications. Assessment: 724.2 Low back pain 723.1 Neck pain 780.97 Altered mental status 791.9 Pyuria 995.90 Systemic inflammatory response sy ndrome 250.00 Type 2 diabetes mellitus 414.00 Coronary artery disease 790.6 Elevated liver function tests 518.81 Respiratory failure 427.5 Cardiac arrest 427.1 Ventricular tachycardia 427.89 SVT (supraventricular tachycardia ) Plan: Transfer Critical care time: 30 minutes [facility] Holden Austin MD 06/23/121924 Holden Austin MD NW PROCEDURE ORDERABLES XR PORT CHEST 1 VIEW (06/23/2012 7:09 PM [facility]) Anatomical Region Laterality Modality Chest Radiographic Imaging Specimen (Source) Anatomical Location Collection Method / Collectio n Time Received Time / Laterality Volume Impressions 06/24/2012 4:03 PM [facility] ??Study done for nasogastric tube placement with nasogastric tube clearly extending to the abdomen. ? ? Narrative 06/24/2012 4:03 PM [facility] PORTABLE CHEST 06/23/2012 FINDINGS: ??Study was done with limited supine image for nasogastric tube placement. ??A nasogastric tube is seen traversing the mid mediastinum, with the tip not identified but clearly within the abdomen. Procedure Note Nick Keys MD - 06/24/2012Format ting of this note might be different from the original. PORTABLE CHEST 06/23/2012 FINDINGS: Study was done with limited gastelum pine image for nasogastric tube placement. A nasogastric tube is seen traversing the mid mediastinum, with the tip not identified but clearly within the abdomen. IMPRESSION: Study done for nasogastric t ube placement with nasogastric tube clearly extending to the abdomen. Bahman Hameed MD [facility] ORDERA BLES EKG 12-LEAD (06/23/2012 7:03 PM [facility]) P athologist Signature Ventricular Rate 147 BPM [facility] Atrial Rate 147 BPM [facility] P-R Interval 128 ms [facility] QRS Duration 112 ms [facility] QT 290 ms [facility] QTc 453 ms [facility] P Laura 26 degrees [facility] R Laura 33 degrees [facility] T Laura -11 degrees [facility] Specimen (Source) Anatomical Collection Method Collection Time Re ceived Time Location / / Volume Laterality 06/23/2012 7:03 PM [facility] Narrative [facility] - 06/24/2012 11:38 A M [facility] Confirming Doc Kendall Ruiz MD Sinus tachycardia Inferior infarct ,age indeterminate ST now depressed in Lateral leads Abnormal ECG No previous ECGs available Navdeep Isidro MD IP ECG ORDERABLES Performing Organization Address City/State/ZIP Code Phon e Number [facility] (ABNORMAL) GLUCOSE, METER (06/23/2012 6:14 PM [facility]) P athologist Signature GLUCOSE, METER 177 (H) 70 - 99 [facility] mg/dL [facility] Specimen Anatomical Collection Method Collection Time Receive d Time (Source) Location / / Volume Laterality 06/23/2012 6:14 PM 2 6:21 [facility] PM [facility] Bahman Hameed MD EC CHEMISTRY ORDERABLES Performing Organization Address City/State/ZIP Code Phon e Number [facility] CT HEAD WO CONTRAST (06/23/2012 4:20 PM [facility]) Anatomical Region Laterality Modality Head Computed Tomography Specimen (Source) Anatomical Location Collection Method / Collectio n Time Received Time / Laterality Volume Impressions 06/25/2012 11:57 AM [facility] No acute intracranial process by CT. Narrative 06/25/2012 11:[address] HEAD WITHOUT CONTRAST INDICATION: Altered mental status, fever . FINDINGS: There are tortuous subarachnoi d vessels on the right which were evident on 10/31/2007 CT. There is no de finitive evidence for acute blood product. Mild hypodensities in the surro unding periventricular white matter. There is no mass effect or midli ne shift. There is no evidence for subacute territorial infarct. Density wi thin the scalp anteriorly in the vertex, correlate clinically. There is a right calvarial lytic lesion which does appear stable compared to . The calvarium is intact. Procedure Note Randy Toscano MD - 06/25/2012Format ting of this note might be different from the original. CT HEAD WITHOUT CONTRAST INDICATION: Altered mental status, fever . FINDINGS: There are tortuous subarachnoi d vessels on the right which were evident on 10/31/2007 CT. There is no definitive evidence for acute blood product. Mild hypodensities in the surrounding periventricular white matter. There is no mass effect or midli ne shift. There is no evidence for subacute territorial infarct. Density within the scalp anteriorly in the vertex, correlate clinically. There is a right calvarial lytic lesion which does appear stable compared to . The calvarium is intact. IMPRESSION: No acute intracranial proces s by CT. Bahman Hameed MD EC CT ORDERABLES (ABNORMAL) LIPASE (06/23/2012 3:45 PM [facility]) P athologist Signature LIPASE 7 (L) 12 - 84 [facility] IU/L [facility] Specimen Anatomical Collection Method Collection Time Receive d Time (Source) Location / / Volume Laterality 06/23/2012 3:45 PM 2 3:52 [facility] PM [facility] Bahman Hameed MD EC CHEMISTRY ORDERABLES Performing Organization Address City/State/ZIP Code Phon e Number [facility] LACTIC ACID, MARITA (06/23/2012 3:45 PM [facility]) P athologist Signature LACTIC ACID, 2.0 0.5 - 2.2 [facility] [place] mmol/L [facility] Specimen Anatomical Collection Method Collection Time Receive d Time (Source) Location / / Volume Laterality 06/23/2012 3:45 PM 2 3:52 [facility] PM [facility] Bahman Hameed MD EC CHEMISTRY ORDERABLES Performing Organization Address [facility] Code Phon e Number [facility] CALCIUM, IONIZED (06/23/2012 3:22 PM [facility]) P athologist Signature Ionized 4.6 4.6 - 5.3 [facility] Calcium mg/dl [facility] Specimen Anatomical Collection Method Collection Time Receive d Time (Source) Location / / Volume Laterality 06/23/2012 3:22 PM 2 3:26 [facility] PM [facility] Bahman Hameed MD EC CHEMISTRY ORDERABLES Performing Organization Address City/[facility] Code Phon e Number [facility] (ABNORMAL) CULTURE, BLOOD BACTERIAL (06/23/2012 3:22 PM [facility]) [facility] gist Method Time Signature Blood Culture SEE BELOW [facility] Comment: ?MICROBIOLOGY Order#: [id number] ? Ordered by: BAHMAN HAMEED Source: Blood ?Collected: ??06/23/12 15:22 Antibiotic Therapy: ?Received : ??06/23/12 15:25 CALLED ??[facility] tel. ??06/24/2012, 04:59, Gram positive cocci results called to and read back by antonia Gaffney/ [facility] Culture, Blood Bacterial ? FINAL ? 12/19/12 07:37 ?BR ? Methicill in Susceptible Staph aureus ?MSSA ? ANTIBIOTIC ? MICHELLE ?? INTRP Amp/Sulbactam ?<=8 /4 ?S ?? Ampicillin ? >8 ? R ?? Augmentin ?< =4/2 ?S ?? Cefazolin ? <=8 ? S ?? Cefepime ?<=8 ? S ?? Cefotaxime ? <=8 ? S ?? Ceftriaxone ? < =8 ? S ?? Ciprofloxacin ? <= 1 ? S ?? Clindamycin ?<= 0.5 ?S ?? Ertapenem ? <=2 ? S ?? Erythromycin ? <=0 .5 ?S ?? Gentamicin ? <=4 ? S ?? Imipenem ?<=4 ? S ?? Levofloxacin ?< =1 ? S ?? Linezolid ?4 ?S ?? Oxacillin ?< =0.25 ?? S ?? Penicillin ? >8 ? R ?? Piperacillin/Tazo ? <=4 ? S ?? Rifampin ?<=1 ? S ?? Synercid (Quinupristin/Dalfo ??<=1 ? S ?? Tetracycline ?< =4 ? S ?? Trimeth/Sulfa ?<=2 /38 ?? S ?? Vancomycin ? <=2 ? S ?? S=SUSCEPTIBLE ??I=INTERMEDIATE ??NS=NOT SUSCEPTABLE ??R=RESISTANT [...] Time (Source) Location / / Volume Laterality Venous BLOOD SPECIMEN / 06/23/2012 3:22 PM 06/23 3:25 Unknown [facility] PM [facility] Bahman Hameed MD EC CHEMISTRY ORDERABLES Performing Organization Address City/State/ZIP Code Phon e Number [facility] (ABNORMAL) CULTURE, BLOOD BACTERIAL (06/23/2012 3:10 PM [facility]) [facility] Method Time Signature Blood Culture SEE BELOW [facility] Comment: ?MICROBIOLOGY Order#: [id number] ? Ordered by: BAHMAN HAMEED Source: Blood ?Collected: ??06/23/12 15:10 Antibiotic Therapy: ?Received : ??06/23/12 15:25 CALLED ??[facility] tel. ??06/24/2012, 05:13, Gram postive cocci_results called to and read back by Antonia Gaffney/ [place] Culture, Blood Bacterial ? FINAL ? 06/25/12 07:37 ?BR ? Methicill in Susceptible Staph aureus ?MSSA ? ANTIBIOTIC ? MICHELLE ?? INTRP Amp/Sulbactam ?<=8 /4 ?S ?? Ampicillin ? >8 ? R ?? Augmentin ?< =4/2 ?S ?? Cefazolin ? <=8 ? S ?? Cefepime ?<=8 ? S ?? Cefotaxime ? <=8 ? S ?? Ceftriaxone ? < =8 ? S ?? Ciprofloxacin ? <= 1 ? S ?? Clindamycin ?<= 0.5 ?S ?? Ertapenem ? <=2 ? S ?? Erythromycin ? <=0 .5 ?S ?? Gentamicin ? <=4 ? S ?? Imipenem ?<=4 ? S ?? Levofloxacin ?< =1 ? S ?? Linezolid ?4 ?S ?? Oxacillin ?< =0.25 ?? S ?? Penicillin ? >8 ? R ?? Piperacillin/Tazo ? <=4 ? S ?? Rifampin ?<=1 ? S ?? Synercid (Quinupristin/Dalfo ??<=1 ? S ?? Tetracycline ?< =4 ? S ?? Trimeth/Sulfa ?<=2 /38 ?? S ?? Vancomycin ? <=2 ? S ?? S=SUSCEPTIBLE ??I=INTERMEDIATE ??NS=NOT SUSCEPTABLE ??R=RESISTANT [...] Time (Source) Location / / Volume Laterality Venous BLOOD SPECIMEN / 06/23/2012 3:10 PM 06/23 3:25 Unknown [facility] PM [facility] Bahman Hameed MD EC CHEMISTRY ORDERABLES Performing Organization Address City/State/ZIP Code Phon e Number [facility] documented in this encounter Visit Diagnoses Diagnosis Low back pain Lumbago Neck pain Cervicalgia Altered mental status Pyuria Other nonspecific finding on examination of urine Systemic inflammatory response syndrome (HCC) Systemic inflammatory response syndrome, unspecified Type 2 diabetes mellitus (HCC) Type II or unspecified type diabetes cindy litus without mention of complication, not stated as uncontrolled Coronary artery disease Coronary atherosclerosis of unspecified type of vessel, [facility] or graft Elevated liver function tests Other abnormal blood chemistry Respiratory failure (HCC) Acute respiratory failure Cardiac arrest (HCC) Cardiac arrest Ventricular tachycardia Paroxysmal ventricular tachycardia SVT (supraventricular tachycardia) (HCC) Other specified cardiac dysrhythmias Tachycardia Tachycardia, unspecified documented in this encounter Administered Medications Inactive Administered Medications Medication Order MAR Action Action Date Dose Rate Site cefTRIAXone (ROCEPHIN) 2,000 New Bag 06/23/2012 3:26 PM [facility] 2,000 mg 100 mL/hr mg in sodium chloride 0.9 % (NS) 50 mL IVPB 2,000 mg (2 g), Intravenous, at 100 mL/hr, ONCE, 1 dose, On Sat06/23/12 at 1530 LORazepam (ATIVAN) injection 1 mg Given 06/23/2012 3:36 PM [facility] 1 mg 1 mg, IV Push, ONCE, 1 dose, On Sat06/23/12 at 1530 LORazepam (ATIVAN) injection 2 mg Given 06/23/2012 6:22 PM [facility] 2 mg 2 mg, IV Push, ONCE, 1 dose, On Sat06/23/12 at 1700 Given 06/23/2012 4:49 PM [facility] 2 mg LORAZEPAM 2 MG/ML IJ SOLN 1 dose, Starting on Sat06/23/12 at 1817, Until Sat at 1822 morphine sulfate variable dose injection 4 mg Given 06/23/2012 3:12 PM [facility] 4 mg 4 mg, IV Push, EVERY 30 MINUTES NEEDED, 4 doses, Starting on Sat06/23/12 at 1451, Until Sat06/24/12 at 0224, Pain OLANZapine (ZYPREXA) injection 5 mg Given 06/23/2012 5:52 PM [facility] 5 mg Right Deltoid 5 mg, Intramuscular, ONCE, 1 dose, On Sat06/23/12 at 1800 ondansetron (ZOFRAN) injection 4 mg Given 06/23/2012 3:10 PM [facility] 4 mg 4 mg, IV Push, EVERY 1 HOUR NEEDED, 3 doses, Starting on Sat06/23/12 at 1452, Until Sat06/24/12 at 0224, Nausea, Vomiting sodium chloride 0.9 % (NS) infusion New Bag 06/23/2012 4:48 PM [facility] 100 mL/hr Intravenous, at 100 mL/hr, CONTINUOUS, Starting on Sat06/23/12 at 1500, Until Sat06/24/12 at 0224 sodium chloride 0.9% bolus 1,000 New Bag 06/23/2012 3:08 PM CS T 1,000 mL 1000 mL/hr mL 1,000 mL, Intravenous, at 1,000 mL/hr, ONCE, 1 dose, On Sat06/23/12 at 1500 documented in this encounter Discontinued Medications Medication Sig Discontinue Reason Start Date End Date atenolol (TENORMIN) 50, mg, ORAL, DAILY, Deleted via home med 05/1206/23/2012 50 MG tablet 0, 0, 05/12/06 review 3:23:34, Substitution Permitted, current med (Hx), Constant Indicator HYDROcodone-acetamino Take 1-2 Tabs by mouth Deleted via home med 1 08/20/2011 06/23/2012 phen (NORCO) 5-325 MG every four hours as review per tablet needed for Pain. Acetaminophen should be limited to 4000 mg per day. oxaprozin (DAYPRO) Take 1 Tab by mouth Deleted via home med 011 06/23/2012 600 MG tablet two times a day. review simvastatin (ZOCOR) TAKE ONE TABLET BY Deleted via home med 012 06/23/2012 40 MG tablet MOUTH ONE TIME DAILY review IN THE P.M. tadalafil (CIALIS) 10 Take 1 Tab by mouth as Deleted via home med 0 07/24/2011 06/23/2012 MG tablet needed for Erectile review dysfunction. documented as of this encounter Historical Medications This list may reflect changes made after this encounter. Medication Sig Dispensed Refills Start Date End Date atenolol (TENORMIN) 50 MG Take 75 mg by mouth 0 10/10/2012 tablet one time a day. added in this encounter Active and Recently Administered Medications Times are shown in [facility]. Scheduled Medication Order 06/21/2012 06/22/2012 06/23/2012 cefTRIAXone (ROCEPHIN) 2,000 mg in sodiu m chloride 0.9 % (NS) 50 mL IVPB (COMPLETED) 1526 (New Bag - Prov ider: Vannessa Valverde RN)1648 (Stopped - Provider: Vannessa Valverde RN) 2 g = 2,000 mg, Intravenous, at 100 mL/hr, ONCE, 1 dose, 23/06 at 1530 LORazepam (ATIVAN) injection 1 mg (COMPLETED) 1536 (Given - Provider: Vannessa Valverde RN) 1 mg, IV Push, ONCE, 1 dose, Sat06/23/12 at 1530 LORazepam (ATIVAN) injection 2 mg (COMPLETED) 1649 (Given - Provider: Vannessa Valverde RN)1822 (Given - Provider: Talya Redman RN) 2 mg, IV Push, ONCE, 1 dose, Sat06/23/12 at 1700 OLANZapine (ZYPREXA) injection 5 mg (COMPLETED) 1752 (Given - Provider: Vannessa Valverde RN) 5 mg, Intramuscular, ONCE, 1 dose, Sat06/23/12 at 1800 sodium chloride 0.9% bolus 1,000 mL (COMPLETED) 1508 (New Bag - Provider: Ildefonso Tam RN)1648 (Stopped - Provider: Vannessa Valverde RN) 1,000 mL, Intravenous, at 1,000 mL/hr, ONCE, 1 dose, Sat 2 at 1500 Continuous Medication Order 06/21/2012 06/22/2012 06/23/2012 sodium chloride 0.9 % (NS) infusion (CANCELED) 1648 (New Bag - Provider: Vannessa Valverde RN) Intravenous, at 100 mL/hr, CONTINUOUS, S tarting 06/23/12 at 1500, Until Discontinued PRN Medication Order 06/21/2012 06/22/2012 06/23/2012 morphine sulfate variable dose injection 4 mg (CANCELED) 1512 (Given - Provider: Ildefonso Tam RN) 4 mg, IV Push, EVERY 30 MINUTES NEEDE D, 4 doses, Starting 06/23/12 at 1451, Until Discontinued, Pain ondansetron (ZOFRAN) injection 4 mg (CANCELED) 1510 (Given - Provider: Ildefonso Tam RN) 4 mg, IV Push, EVERY 1 HOUR NEEDED, 3 doses, Starting 06/23/12 at 1452, Until Discontinued, Nausea, Vomiting documented in this encounter Orders Medications Ordered That Might Not Have Count Last Ord ered Date First Ordered Date Been Administered ACETAMINOPHEN 325 MG RE SUPP 1 06/23/2012 ADENOSINE 6 MG/2ML IV SOLN 1 06/23/2012 sodium chloride 0.9 % (NS) injection 3 mL 2 2011 vancomycin (VANCOCIN) 1 g in 0.9% sodium 1 012 chloride 250 mL IVPB Nursing Count Last Ordered Date First Ordered Date BLADDER SCAN 1 06/23/2012 INSERT DAVIS CATHETER 1 06/23/2012 SALINE LOCK IV 1 06/23/2012 documented in this encounter Care Teams Substance Abuse Technician Relationship Specialty Start Date End Date Deirdre Bedolla MD PCP - General Family Medicine 06/04/11 01/03/[address] [id number] documented as of this encounter
--- OUTSIDE RECORDS SUMMARY | 2022-06-07 21:01 | XMS_ITS | Encounter Summary ---
:1935 Author Organization [employer] Address [address] [address] Phone Care Team Providers Name Role Phone Deirdre Bedolla MD Primary Care Provider [phone] Reason for Referral Specialty Diagnoses / Procedures Referred By Contact Refer red To Contact Urology Deirdre Bedolla Do Not Use-Danny Devang Mosher MD [address] [facility] [address] [place] [address] [place] [id number] Referral ID Status Reason Start Date Expiration Date Visits Requ ested Visits Authorized Comments Reason for Referral: Urinary frequency e pidural abscess Reason for Visit Reason Comments Recheck Encounter Details Date Type Department Care Team Description 10/10/2012 Office Visit [facility] [place], Epidural abscess (Primary Dx); [facility] Deirdre Mosher MD Diabetes; MEDICINE [address] Hyperlipidemia; 2023 [facility] Heart disease; Street [place] [address] Urinary frequency; [place] [id number] [place] [phone] Social History Tobacco Use Types Packs/Day Years Used Date Smoking Tobacco: Never Smokeless Tobacco: Never Alcohol Use Standard Drinks/Week Comments No 0 (1 standard drink = 0.6 oz pure alcoho l) Sex Assigned at Date Recorded Not on file documented as of this encounter Last Filed Vital Signs Vital Sign Reading Time Taken Comments Blood Pressure 105/67 10/10/2012 1:36 PM CDT Pulse 73 10/10/2012 1:36 PM CDT Temperature - - Respiratory Rate - - Oxygen Saturation - - Inhaled Oxygen Concentration - - Weight 89.4 kg (197 lb) 10/10/2012 1:36 PM CDT Height 172.7 cm (5' 8) 10/10/2012 1:36 PM CDT Body Mass Index 29.95 10/10/2012 1:36 PM CDT documented in this encounter Patient Instructions Patient InstructionsMahling-Deirdre Cristobal MD - 10/10/2012 2:05 PM CDT 1) For the swelling, we will have you try some compression stockings and also talk with your heart doctor to see if he thinks it would be OK to switch you off Amlodipine. My hope is that controlling the swelling helps the itch. 2) For the Keflex, see if your pharmacy can get a different generic. If not, let me know and I can send it wherever you would like. 3) For the pain, increase Gabapentin to 300mg three times daily. 4) For the diabetes, this is improved because of the weight loss. We will watch it. 5) Labs today. 6) See me in 2months. 7) Someone will call you to see urology. 8) I am happy to order PT, see if it is still covered. documented in this encounter Ordered Prescriptions Prescription Sig Dispensed Refills Start Date End Date gabapentin (NEURONTIN) 300 Take 1 Cap by mouth 270 Cap 3 10/10/2012 02/03/2013 MG capsule three times a day. documented in this encounter Progress Notes Deirdre Bedolla MD - 10/13/2012 9:[address] [facility] Patient Name: SIMON CASTILLO Date of Service: 10/10/2012 : 1935 Age: 77Y Sex: M DC Site MRN: Patient Loc/Room #: [facility] FP/ Provider: Deirdre Bedolla MD, Family Practice OFFICE NOTE SITE: [facility] SUBJECTIVE: Simon is a very pleasant 77-year-old gentleman who is well known to me with his last visit being June 23, 2012, here. At that time, he was having back pain and was not acting right sowe referred him to the ER where he ended up being sent down to [place] and diagnosed with an epidural abscess. In route, he actually had a cardiopulmonary arrest as well. While in [place] he had a T11-L3 decompression laminectomy. MRI July 22, 2012, showed increased size of the abscess and he had a repeat surgery. He had a fever and pleural effusion requiring thoracentesis. He had 3 colonoscopies and had required decompression and rectal tube placement for an adynamic ileus or [place] syndrome. He also had an VT with cardiac arrest while inpatient on July 04, 2012, where he was taken to a technical laboratory asst and had 2 bare metal stents placed and also intra-aortic balloon pump placed for a short time. He had a lot of trouble with delirium, had been followed by Psychiatry, and had renal failure and aspiration pneumonia, which had resolved. He required a rehab stay and is now back at home with hiswife. Despite all of the tremendous health issues he has had, things are going very well. CONCERNS TODAY INCLUDE: 1. Diabetes. He is off metformin and insulin due to weight loss with his recent illness. Blood sugars running 117 or so. 2. In terms of his epidural abscess, he is to be on Keflex lifelong. His generic recently switched and he finds the smell and taste intolerable. He is wondering if he could get a different generic. 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 He has quite a bit of swelling. He was vastly edematous when he was in the hospital per his andthat is improving but he still has trouble with his legs and sometimes does have quite a bit of itching with that. Finally, he has quite a bit of urinary frequency, sometimes is up 20 to 30 minutes at night. PAST MEDICAL HISTORY: 1. Coronary artery disease with an VT in 1989 and right coronary stenting at that time and then recent VT July 04, 2012, down in [place] where he had [address] 2. Type 2 diabetes. Off meds currently. 3. Reflux. 4. Hyperlipidemia. 5. Hypertension. 6. History of a neck fracture. 7. Prostatic hypertrophy. 8. Erectile dysfunction. 9. History of hypokalemia. 10. History of epidural abscess requiring lifelong Keflex. 11. Chronic hearing loss. 12. Benign prostatic hypertrophy. MEDICATIONS: 1. Atenolol 12.5 daily. 2. Lasix 20 daily. 3. Plavix 75 daily. 4. Protonix 40 daily. 5. Senna 2 tabs daily. 6. Seroquel 25 at bedtime. 7. Zocor 10 daily. 8. Tramadol 100 b.i.d. 9. Keflex 500 t.i.d. lifelong. 10. Norvasc 10 mg daily. 11. Neurontin 200 t.i.d., which I will be increasing to 300 t.i.d. 12. Lidoderm patches 3 patches every 24 hours, on 12 off 12. 13. VESIcare 10 mg daily. 14. Potassium 20 mEq daily. 15. Terazosin 2 mg at bedtime. ALLERGIES: CODEINE. REVIEW OF SYSTEMS: He has had no fevers and his mentation is coming back well. Sleeping is really anissue for them still. PHYSICAL EXAM: Height is 5'8, weight 197; blood pressure 105/67, pulse is 73. Generally - pleasant,no acute distress. HEENT - atraumatic, normocephalic. Conjunctivae are clear. Heart is regular. Lungs are clear. Extremities do have 2+ edema quite firm pitting. ASSESSMENT AND PLAN: 1. Epidural abscess. On Keflex lifelong. Sees ID next . They will inquire with [facility] whether they are able to get a different generic and if not I would be happy to send that to another pharmacy for them. 2. Diabetes. Will check an A1C. Currently dietary managed. I suspect as he continues to improve and gains weight we may have to add some of his meds back. 3. Hyperlipidemia. Check lipids. This has been to goal. He is a cardiac patient. Ideally I think we would like that under 70. 4. Heart disease. As above, stable. No symptoms. Sees Cardiology the . 5. Urinary frequency. Will refer to Urology. His has been doing a lot of extra p.r.n. use of the terazosin and I would caution against that with his low blood pressure. 6. Edema. He is on amlodipine 10 mg. Given everything he has been through, I am very hesitant to make any changes, but I would recommend they discuss that with his swing frame grinder operator whether we could get himoff of his 10 mg of amlodipine in favor of something else that would perhaps cause less edema. I didrecommend they get back wearing his PERICO stockings. 7. Back pain secondary to his epidural abscess. What he is having now is more nerve pain. He is on fentanyl 25 mcg, but will also increase his Neurontin to 300 t.i.d. 8. Weakness. I would be happy to refer them back to some PT. Has some dizziness with this well. Theywill see if it is still covered. They will see me again in 2 months. I think we should keep a very close eye on him given his really nearly catastrophic illnesses today. Joe denies any depression but becomes very tearful and asked me if he is going to soon today. I did tell him very honestly thatI think he is by far in a way over the worst of it, but there probably will be some difficulties ahead. Again, he denies any depression but that is something they will keep an eye out for. To that end,he is still taking Seroquel at night and neither one of them want to discontinue this but my hope isthat will not be a long-term thing for him. Deirdre Bedolla MD [facility] Practice cc: /GARRETT Job ID: [id number] /jason/kris (txt) Document ID: [id number] Michelle Marmolejo - 10/10/2012 1:53 PM CDT Fall Risk Yes: Thierno documented in this encounter Plan of Treatment Not on filedocumented as of this encounter Procedures Procedure Name Priority Date/Time Associated Comments Diagnosis BASIC METABOLIC Routine 10/10/2012 2:30 PM Diabetes Result s for this PANEL CDT procedure are i n the results section. HEMOGLOBIN A1C Routine 10/10/2012 2:30 PM Diabetes Results for this CDT procedure are i n the results section. LIPID PROFILE Routine 10/10/2012 2:30 PM Heart disease Results for this CDT procedure are i n the results section. documented in this encounter Results (ABNORMAL) LIPID PROFILE (10/10/2012 2:30 PM CDT) P athologist Signature Cholesterol 138 114 - 200 [facility] mg/dL [facility] Comment: Total Cholesterol Reference Ranges Desirable: ? <200 ?mg/dL Borderline High: ?? 200-239 mg/dL High: ?>239 ?mg/ dL TRIGLYCERIDE 167 10 - 200 mg/dL [facility] HDL CHOLESTEROL 31 (L) 40 - 60 mg/dL [facility] LDL- CALCULATED 74 mg/dL [facility] Comment: LDL Cholesterol Reference Ranges Optimal: ?<100 ? mg/dL Near Optimal: ? 100-129 ??mg/dL Borderline High: ??130-159 ??mg/dL High: ? 160-189 ??mg/dL Very High: ?>189 ? mg/dL Specimen Anatomical Collection Method Collection Time Receive d Time (Source) Location / / Volume Laterality 10/10/2012 2:30 PM 3 2:37 CDT PM CDT Deirdre Bedolla MD [facility] CHEMISTRY ORDERABLES A BN Performing Organization Address City/State/ZIP Code Phon e Number [facility] (ABNORMAL) BASIC MET PROF (10/10/2012 2:30 PM CDT) P athologist Signature SODIUM 139 134 - 143 [facility] mEq/L [facility] POTASSIUM 4.1 3.4 - 5.1 [facility] m[facility] Chloride 106 99 - 110 [facility] m[facility] CO2 23 22 - 29 [facility] m[facility] BUN 12 5 - 24 [facility] mg/dL [facility] Creatinine 1.06 0.70 - 1.20 [facility] mg/dL [facility] GFR CALC >60 [facility] Comment: GFR Normal: >60 mL/min/1.73 m2 Calcium 9.8 8.4 - 10.5 mg/dL [facility] ANION GAP 10 3 - [address] [facility] GLUCOSE 113 (H) 70 - 99 mg/dL [facility] ORY Specimen Anatomical Collection Method Collection Time Receive d Time (Source) Location / / Volume Laterality 10/10/2012 2:30 PM 3 2:37 CDT PM CDT Deirdre Bedolla MD [facility] CHEMISTRY ORDERABLES Performing Organization Address City/State/ZIP Code Phon e Number [facility] A1C(HGB AIC) (10/10/2012 2:30 PM CDT) athologist Signature A1C (HGB AIC) 5.2 4.0 - 6.[address] [facility] % LABORATORY Est Average 103 mg/dL [facility] Glucose LABORATORY Comment: According to ADA guidelines, the estim ed average glucose (eAG) will be calculated for all HgbA1c results. Specimen Anatomical Collection Method Collection Time Receive d Time (Source) Location / / Volume Laterality 10/10/2012 2:30 PM 3 2:37 CDT PM CDT Deirdre Bedolla MD EC CHEMISTRY ORDERABLES A BN Performing Organization Address City/State/ZIP Code Phon e Number [facility] documented in this encounter Visit Diagnoses Diagnosis Epidural abscess - Primary Intracranial and intraspinal abscess of unspecified site Diabetes Type II or unspecified type diabetes cindy litus without mention of complication, not stated as uncontrolled Hyperlipidemia Other and unspecified hyperlipidemia Heart disease Heart disease, unspecified Urinary frequency Edema documented in this encounter Discontinued Medications Medication Sig Discontinue Reason Start Date End Date omeprazole (PRILOSEC) 40 MG Take 1 Cap by Duplicate 04/28/2012 10/10/2012 capsule mouth one time a Medication day. Take before meals. Do not crush. methocarbamol (ROBAXIN) 500 Take 1-2 Tabs by Duplicate 2 10/10/2012 MG tablet mouth four times a Medication day. losartan (COZAAR) 50 MG TAKE ONE TABLET BY Duplicate 09/04/2012 10/10/2012 tablet MOUTH ONE TIME Medication DAILY LEVITRA 20 MG tablet TAKE ONE TABLET BY Duplicate 01/02/2012 0 10/10/2012 MOUTH EVERY DAY Medication NEEDED FOR ERECTILE DYSFUNCTION HYDROcodone-ibuprofen Take 1 Tab by Duplicate 06/19/201210/10 (VICOPROFEN) 7.5-200 MG per mouth every eight Medication tablet hours as needed for Pain. Take with food. hydrochlorothiazide 25 MG TAKE ONE TABLET BY Duplicate 3 10/10/2012 tablet MOUTH ONE TIME Medication DAILY atenolol (TENORMIN) 50 MG Take 75 mg by Duplicate 0 10/10/2012 tablet mouth one time a Medication day. gabapentin (NEURONTIN) 100 Take 2 Caps by Adjustment of dose 201210/10/2012 MG capsule mouth three times a day. documented as of this encounter Historical Medications This list may reflect changes made after this encounter. Medication Sig Dispensed Refills Start Date End Date sennosides-docusate sodium Take 2 Tabs by 100 Tab 0 10/10 (SENOKOT-S) 8.6-50 MG per mouth one time a tablet day. amLODIPine (NORVASC) 10 MG Take 1 Tab by mouth 31 Tab 0 10/10/2012 11/04/2012 tablet one time a day. gabapentin (NEURONTIN) 100 Take 2 Caps by 0 10/1010/10/2012 MG capsule mouth three times a day. cephALEXin (KEFLEX) 500 MG Take 1 Cap by mouth 0 10/10/2012 12/10/2012 capsule three times a day. TraMADol HCl ER 100 MG Take 100 mg by 30 Cap 0 3 12/10/2012 CP24 mouth two times a day. simvastatin (ZOCOR) 10 MG Take 1 Tab by mouth 31 Tab 0 0 10/10/2012 10/30/2012 tablet one time a day. QUEtiapine (SEROQUEL) 25 Take 1 Tab by mouth 0 10/30/2012 MG tablet at bedtime. pantoprazole (PROTONIX) 40 Take 1 Packet by 0 11/201203/11/2013 MG PACK mouth one time a day. clopidogrel (PLAVIX) 75 MG Take 1 Tab by mouth 31 Tab 0 10/10/2012 11/05/2012 tablet one time a day. furosemide (LASIX) 20 MG Take 1 Tab by mouth 31 Tab 11 11/04/2012 tablet one time a day. atenolol (TENORMIN) 25 MG Take 0.5 Tabs by 0 11/201210/27/2012 TABS mouth one time a day. added in this encounter Orders REFERRAL Count Last Ordered Date First Ordered Date APPT WITH UROLOGY [facility] 1 10/10/2012 documented in this encounter Care Teams Music Theory Teacher Relationship Specialty Start Date End Date Deirdre Bedolla MD PCP - General Family Medicine 06/04/11 01/03/[address] [address] documented as of this encounter
--- OUTSIDE RECORDS SUMMARY | 2022-06-07 21:01 | XMS_ITS | Encounter Summary ---
:1935 Author Organization [employer] Address [address] [address] Phone Care Team Providers Name Role Phone Deirdre Bedolla MD Primary Care Provider [phone] Reason for Visit Reason Comments Refill Request Encounter Details Date Type Department Care Team Description 06/09/[address] [facility] Mabel Bedolla Refill Request FAMILY MEDICINE MD Nomi 2023 [facility] eet [address] [address] [place], [place] [address] (Wo rk) Social History Tobacco Use Types [...] CR TAKE ONE TABLET BY 90 Tab 1 201101/20/2014 (MARIA PARR) 20 MEQ MOUTH ONE TIME tablet DAILY documented in this encounter Plan of Treatment Not on filedocumented as of this encounter Visit Diagnoses Not on filedocumented in this encounter Discontinued Medications Medication Sig Discontinue Reason Start Date End Date potassium chloride CR TAKE ONE TABLET BY 03/08/2012 06/09/2012 (MARIA PARR) 20 MOUTH ONE TIME DAILY MEQ tablet documented as of this encounter Care Teams Biochemistry Technologist Relationship Specialty Start Date End Date Deirdre Bedolla MD PCP - General Family Medicine 06/04/11 01/03/[address] [id number] documented as of this encounter
--- OUTSIDE RECORDS SUMMARY | 2022-06-07 21:01 | XMS_ITS | Encounter Summary ---
:1935 Author Organization [employer] Address [address] [address] Phone Care Team Providers Name Role Phone Rima Bedolla MD Primary Care Provider [phone] Reason for Visit Reason Onset Date Comments Medication Information 09/10/2012 Encounter Details Date Type Department Care Team Description 09/10/2012 Telephone [facility] Farhana Hurley, Medication Information FAMILY MEDICINE [facility] 2023 [place], [place] [id number] Social History Tobacco Use Types Packs/Day Years Used Date Smoking Tobacco: Never Smokeless Tobacco: Never Alcohol Use Standard Drinks/Week Comments No 0 (1 standard drink = 0.6 oz pure alcoho l) Sex Assigned at Date Recorded Not on file documented as of this encounter Miscellaneous Notes Telephone Encounter - Farhana Hurley LPN - 09/10/2012 11:33 AM CST Contacted , she stated not needed after all. E DRILLER Telephone Encounter - Farhana Hurley LPN - 09/10/2012 11:33 AM CST Message copied by FARHANA HURLEY on SatSep 10, 2012 11:33 AM ------ Message from: RIMA JONES Created: SatSep 10, 2012 10:58 AM Contact: Mary Ann- [place] Detrol LA 4mg daily. ----- Message ----- From: Farhana Hurley LPN Sent: 09/10/2012 9:54 AM To: Rima Bedolla MD ----- Message ----- From: Minerva Ghotra Chema Sent: 09/10/2012 9:39 AM To: [facility] Ca Yanick He's at [facility]--can he get Detrol in his med's? Her cell# [phone] 09-10 9:20 am E DRILLER documented in this encounter Plan of Treatment Not on filedocumented as of this encounter Visit Diagnoses Not on filedocumented in this encounter Care Teams Heat Treater Relationship Specialty Start Date End Date Rima Bedolla MD PCP - General Family Medicine 06/04/11 01/03/[address] [address] documented as of this encounter
--- OUTSIDE RECORDS SUMMARY | 2022-06-07 21:01 | XMS_ITS | Encounter Summary ---
:1935 Author Organization [employer] Address [address] [address] Phone Care Team Providers Name Role Phone Deirdre Bedolla MD Primary Care Provider [phone] Encounter Details Date Type Department Care Team Description 07/14/2012 Scanned - [facility] Elsewhere, Pcp Reports [address] [place] [address] Social History Tobacco Use Types [...] Name Priority Date/Time Associated Diagnosis Comme nts COLONOSCOPY,FLEX,DIAGNOSTIC Routine 07/02/2012 documented in this encounter Results COLONOSCOPY,FLEX,DIAGNOSTIC (07/02/2012) Narrative This result has an attachment that is no t available. Pcp Elsewhere EC PROCEDURES documented in this encounter Visit Diagnoses Not on filedocumented in this encounter Care Teams Education And Training Manager Relationship Specialty Start Date End Date Deirdre Bedolla MD PCP - General Family Medicine 06/04/11 01/03/[address] [id number] documented as of this encounter
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
--- OUTSIDE RECORDS SUMMARY | 2022-06-07 21:01 | XMS_ITS | Encounter Summary ---
:1935 Author Organization [employer] Address [address] [address] Phone Care Team Providers Name Role Phone Deirdre Bedolla MD Primary Care Provider [phone] Reason for Visit Reason Comments Refill Request Encounter Details Date Type Department Care Team Description 06/11/2012 Refill [facility] Mabel Bedolla Refill Request FAMILY MEDICINE MD Nomi 2023 [facility] [address] [address] [place], [place] [address] (Wo rk) Social History Tobacco Use Types [...] 10 MG tablet TAKE ONE TABLET BY 90 Tab 1 201110/22/2012 MOUTH ONE TIME DAILY documented in this encounter Plan of Treatment Not on filedocumented as of this encounter Visit Diagnoses Not on filedocumented in this encounter Discontinued Medications Medication Sig Discontinue Reason Start Date End Date VESICARE 10 MG tablet TAKE ONE TABLET BY 09/22/2011 06/11/2012 MOUTH ONE TIME DAILY documented as of this encounter Care Teams Dot Compliance Specialist Relationship Specialty Start Date End Date Deirdre Bedolla MD PCP - General Family Medicine 11/28/11 6/29/[address] [place] [id number] documented as of this encounter
--- OUTSIDE RECORDS SUMMARY | 2022-06-07 21:01 | XMS_ITS | Encounter Summary ---
:1935 Author Organization [employer] [facility] Address [address] [address] Phone Care Team Providers Name Role Phone Deirdre Bedolla MD Primary Care Provider [phone] Encounter Details Date Type Department Care Team Description 10/14/2012 Orders Only [facility] Farhana Hurley, Weakness (Primary Dx) FAMILY MEDICINE CONCILIATOR 2023 [facility] FAHEEM Burdick [id number] Social History Tobacco Use Types Packs/Day Years Used Date Smoking Tobacco: Never Smokeless Tobacco: Never Alcohol Use Standard Drinks/Week Comments No 0 (1 standard drink = 0.6 oz pure alcoho l) Sex Assigned at Date Recorded Not on file documented as of this encounter Plan of Treatment Not on filedocumented as of this encounter Visit Diagnoses Diagnosis Weakness - Primary Other malaise and fatigue documented in this encounter Care Teams Direct Marketing Executive Relationship Specialty Start Date End Date Deirdre Bedolla MD PCP - General Family Medicine 06/04/11 01/03/[address] YONATHANFAHEEM [place] [id number] documented as of this encounter
--- OUTSIDE RECORDS SUMMARY | 2022-06-07 21:01 | XMS_ITS | Encounter Summary ---
:1935 Author Organization [employer] Address [address] [address] Phone Care Team Providers Name Role Phone Deirdre Bedolla MD Primary Care Provider [phone] Reason for Visit Reason Comments Back Pain Encounter Details Date Type Department Care Team Description 06/19/2012 Emergency [facility] Michelle Austin, Back pain; Center Emergency Low back strain; Department 523 THIRD MOBILE Muscle spasm of back [address] [place] [address] [place] [address] [place] [address] [phone] (Wo rk) Social History Tobacco Use Types Packs/Day Years Used Date Smoking Tobacco: Never Smokeless Tobacco: Never Alcohol Use Standard Drinks/Week Comments No 0 (1 standard drink = 0.6 oz pure alcoho l) Sex Assigned at Date Recorded Not on file documented as of this encounter Last Filed Vital Signs Vital Sign Reading Time Taken Comments Blood Pressure 120/78 06/19/2012 11:10 PM PHYSICS PROFESSOR Pulse 78 06/19/2012 11:10 PM PHYSICS PROFESSOR Temperature 37 ??C (98.6 ??F) 06/19/2012 9:08 PM PHYSICS PROFESSOR Respiratory Rate 16 06/19/2012 11:10 PM PHYSICS PROFESSOR Oxygen Saturation 96% 06/19/2012 11:10 PM PHYSICS PROFESSOR Inhaled Oxygen Concentration - - Weight 105.7 kg (233 lb) 06/19/2012 9:08 PM PHYSICS PROFESSOR Height 175.3 cm (5' 9) 06/19/2012 9:08 PM PHYSICS PROFESSOR Body Mass Index 34.41 06/19/2012 9:08 PM PHYSICS PROFESSOR documented in this encounter Discharge Instructions Discharge InstructionsMichelle Austin MD - 06/19/2012 11:28 PM CST Images from the original note were not included. MUSCLE SPASM A MUSCLE SPASM is a prolonged contraction of the muscle fibers. This may be caused by strain or overexertion of the muscle, injury, or metabolic changes. If it goes on long enough the muscle spasm causes pain. Common locations for muscle spasm are the legs (especially at night in older persons), in the neck and back. HOME CARE: 1) Heat, massage and passive stretching will help relax muscle spasm. 2) When the spasm is in your arm or leg, you may stretch the muscle passively by having someone bendor straighten the joint above or below the muscle until you feel the stretch on the sore muscle. Hold this tension for 5-30 seconds, as tolerated. Release. Rest for one minute. Repeat until the spasm is relieved. 3) You may use acetaminophen (Tylenol) or ibuprofen (Motrin, Advil) to control pain, unless another medicine was prescribed. [ NOTE : If you have chronic liver or kidney disease or ever had a stomach ulcer or GI bleeding, talk with your doctor before using these medicines.] FOLLOW UP with your doctor or this facility if you are not improving within the next 1-2 days. GET PROMPT MEDICAL ATTENTION or contact your doctor if any of the following occur: -- Fingers or toes become swollen, cold, blue, numb or tingly -- You develop weakness in the affected arm or leg -- Pain increases and is not controlled by the above measures ?? [id number] [place] [address]. All rights reserved. This information is not intended as a substitute for professional medical care. Always follow your healthcare professional's instructions. BACK SPRAIN or STRAIN You have injured the muscles (strain) or ligaments (sprain) around the spine. This may occur after asudden forceful twisting or bending force (such as in a car accident), after a simple awkward movement, or after lifting something heavy with poor body positioning. In either case, muscle spasm is often present and adds to the pain. A back sprain or muscle strain usually gets better in 1-2 weeks. Unless you had a forceful physical injury (for example, a car accident or fall), X-rays are usually not ordered for the initial evaluation of a back sprain or strain. If pain continues and dose not respond to medical treatment, x-rays and other tests may be performed at a later time. HOME CARE: 1. You may need to stay in bed the first few days. But, as soon as possible, begin sitting or walking to avoid problems with prolonged bed rest (muscle weakness, worsening back stiffness and pain, blood clots in the legs). 2. When in bed, try to find a position of comfort. A firm mattress is best. Try lying flat on your back with pillows under your knees. You can also try lying on your side with your knees bent up towards your chest and a pillow between your knees. 3. Avoid prolonged sitting. This puts more stress on the lower back than standing or walking. 4. During the first two days after injury, apply an ICE PACK to the painful area for 20 minutes every 2-4 hours. This will reduce swelling and pain. HEAT (hot shower, hot bath or heating pad) works well for muscle spasm. You can start with ice, then switch to heat after two days. Some patients feel best alternating ice and heat treatments. Use the one method that feels the best to you. 5. You may use acetaminophen (Tylenol) or ibuprofen (Motrin, Advil) to control pain, unless another pain medicine was prescribed. [NOTE: If you have chronic liver or kidney disease or ever had a stomach ulcer or GI bleeding, talk with your doctor before using these medicines.] 6. Be aware of safe lifting methods and do not lift anything over 15 pounds until all the pain is gone. FOLLOW UP with your doctor or this facility if your symptoms do not start to improve after one week.Physical therapy or further tests may be needed. [NOTE: If X-rays were taken, they will be reviewed by a radiologist. You will be notified of any newfindings that may affect your care.] GET PROMPT MEDICAL ATTENTION if any of the following occur: ?? Pain becomes worse or spreads to your arms or legs ?? Weakness or numbness in one or both arms or legs ?? Loss of bowel or bladder control ?? Numbness in the groin or genital area ?? [id number] [employer], [address] [place] [address], [place] [address]. All rights reserved. This information is not intended as a substitute for professional medical care. Always follow your healthcare professional's instructions. BACK PAIN [acute or chronic] Back pain is usually caused by an injury to the muscles or ligaments of the spine. Sometimes the disks that separate each bone in the spine may bulge and cause pain by pressing on a nearby nerve. Back pain may also appear after a sudden twisting/bending force (such as in a car accident), after a simple awkward movement, or lifting something heavy with poor body positioning. In either case, muscle spasm is often present and adds to the pain. Acute back pain usually gets better in one to two weeks. Back pain related to disk disease, arthritis in the spinal joints or spinal stenosis (narrowing of the spinal canal) can become chronic and lastfor months or years. Unless you had a physical injury (for example, a car accident or fall) X-rays are usually not ordered for the initial evaluation of back pain. If pain continues and does not respond to medical treatment, x-rays and other tests may be performed at a later time. HOME CARE: 1. You may need to stay in bed the first few days. But, as soon as possible, begin sitting or walking to avoid problems with prolonged bed rest (muscle weakness, worsening back stiffness and pain, blood clots in the legs). 2. When in bed, try to find a position of comfort. A firm mattress is best. Try lying flat on your back with pillows under your knees. You can also try lying on your side with your knees bent up towards your chest and a pillow between your knees. 3. Avoid prolonged sitting. This puts more stress on the lower back than standing or walking. 4. During the first two days after injury, apply an ICE PACK to the painful area for 20 minutes every 2-4 hours. This will reduce swelling and pain. HEAT (hot shower, hot bath or heating pad) works well for muscle spasm. You can start with ice, then switch to heat after two days. Some patients feel best alternating ice and heat treatments. Use the one method that feels the best to you. 5. You may use acetaminophen (Tylenol) or ibuprofen (Motrin, Advil) to control pain, unless another pain medicine was prescribed. [NOTE: If you have chronic liver or kidney disease or ever had a stomach ulcer or GI bleeding, talk with your doctor before using these medicines.] 6. Be aware of safe lifting methods and do not lift anything over 15 pounds until all the pain is gone. FOLLOW UP with your doctor or this facility if your symptoms do not start to improve after one week.Physical therapy may be needed. [NOTE: If X-rays were taken, they will be reviewed by a radiologist. You will be notified of any newfindings that may affect your care.] GET PROMPT MEDICAL ATTENTION if any of the following occur: ?? Pain becomes worse or spreads to your legs ?? Weakness or numbness in one or both legs ?? Loss of bowel or bladder control ?? Numbness in the groin or genital area ?? [id number] [facility], [address] [place] [address], [place] [address]. All rights reserved. This information is not intended as a substitute for professional medical care. Always follow your healthcare professional's instructions. ICS PROFESSOR documented in this encounter Medications at Time of Discharge Medication Sig Dispensed Refills Start Date End Date ASPIRIN LOW DOSE 81 MG 81 mg 1 tablet, 81.000 0 08/05/19 10 tablet ORAL, DAILY, 08/05/09 14:22:55 documented as of this encounter Ordered Prescriptions Prescription Sig Dispensed Refills Start Date End Date methocarbamol (ROBAXIN) Take 1-2 Tabs by mouth 30 Tab 1 06/19/2012 10/10/2012 500 MG tablet four times a day. HYDROcodone-acetaminoph Take 1-2 Tabs by mouth 6 Tab 0 06/19/2012 06/23/2012 en (NORCO) 5-325 MG per every four hours as tablet needed for Pain. Acetaminophen should be limited to 4000 mg per day. HYDROcodone-ibuprofen Take 1 Tab by mouth 30 Tab 1 06/1910/10/2012 (VICOPROFEN) 7.5-200 MG every eight hours as per tablet needed for Pain. Take with food. documented in this encounter Discharge Disposition Disposition Code Departure Means Destination Discharged Home documented in this encounter ED Notes Michelle Austin MD - 06/20/2012 1:50 AM CST Patient Simon Castillo Chief Complaint Back Pain HPI Comments: Patient is a 76-year-old male presenting to the emergency department with complaint ofback pain. Patient reports onset of back pain that began early this morning. Patient reports that yesterday he was trying to pull a metal and wooden bench that was frozen to the ground up out of the frozen region where it was stuck. Patient states that he noted that he hurt his back a little bit at that time but states that the initial discomfort was a 2-3/10 when he went to bed that night. Patient states that when he woke up this morning the discomfort was up to a 20 out of 10. Patient reports bilateral lower back pain near the spine. Patient denies any radiation of pain down into the legs. No loss of strength or sensation in the lower extremities. Patient denies any bowel or bladder dysfunction.Patient took 800 mg of ibuprofen at 7 PM this evening and took 3 tablets of Vicodin throughout the course of the day with some improvement in his discomfort. Patient has prior history of back surgery in 1981 with L4 laminectomy. Patient has been utilizing ice 20-30 minutes several times throughout thecourse of the day and states that if he is sitting still he does not have such severe discomfort as he does with movement, changing positions, or trying to strain to have a bowel movement. Patient rates his current discomfort as a 6/10 and would like something to take for pain. Patient describes aching pressure sensation that increases to sharp stabbing pain associated with movement or palpation. No other complaints or concerns at this time Patient is a 76 year old male presenting with back problem. Back Pain Pertinent negatives include no chest pain, no fever and no dysuria. Review of Systems Constitutional: Negative for fever, chills and appetite change. Respiratory: Negative for cough, choking and shortness of breath. Cardiovascular: Negative for chest pain. Genitourinary: Negative for dysuria, urgency, frequency and decreased urine volume. Musculoskeletal: Positive for back pain. Negative for gait problem. All other systems reviewed and are negative. Allergies Allergen Reactions ??? Codeine Patient's Medications New Prescriptions HYDROCODONE-ACETAMINOPHEN (NORCO) 5-325 MG PER TABLET Take 1-2 Tabs by mouth every four hours as needed for Pain. Acetaminophen should be limited to 4000 mg per day. HYDROCODONE-IBUPROFEN (VICOPROFEN) 7.5-200 MG PER TABLET Take 1 Tab by mouth every eight hours as needed for Pain. Take with food. METHOCARBAMOL (ROBAXIN) 500 MG TABLET Take 1-2 Tabs by mouth four times a day. Previous Medications ASPIRIN LOW DOSE 81 MG TABLET 81 mg 1 tablet, ORAL, DAILY, 08/05/09 14:22:55 ATENOLOL (TENORMIN) 50 MG TABLET 50, mg, ORAL, DAILY, 0, 0, 05/12/06 3:23:34, Substitution Permitted, current med (Hx), Constant Indicator HYDROCHLOROTHIAZIDE 25 MG TABLET TAKE ONE TABLET BY MOUTH ONE TIME DAILY LEVITRA 20 MG TABLET TAKE ONE TABLET BY MOUTH EVERY DAY NEEDED FOR ERECTILE DYSFUNCTION LOSARTAN (COZAAR) 50 MG TABLET TAKE ONE TABLET BY MOUTH ONE TIME DAILY METFORMIN (GLUCOPHAGE) 1000 MG TABLET TAKE ONE TABLETS BY MOUTH IN THE MORNING AND TWO IN THE EVENING OMEPRAZOLE (PRILOSEC) 40 MG CAPSULE Take 1 [...] unspecified ??? Myocardial infarction ??? Hyperlipidemia 01/15/2011 Past Surgical History: Past Surgical History Procedure Date ??? Colonoscopy 05/02/2006 Junito Noel MD ??? Coronary angioplasty with stent placement ??? Back surgery L4 laminectomy, multiple level cervical fusion ??? Joint replacement left hip ??? Shoulder surgery Family History: His family history is not on file. Social History: He reports that he has never smoked. He has never used smokeless tobacco. He reportsthat he does not drink alcohol. Exam: BP 120/78 Pulse 78 Temp(Src) 98.6 ??F (37 ??C) (Oral) Resp 16 Ht 1.753 m (5' 9) Wt 105.688 kg (233 lb) BMI 34.41 kg/m2 SpO2 96% Physical Exam Nursing note and vitals reviewed. Constitutional: He is oriented to person, place, and time. He appears well- developed and well-nourished. Age-appropriate male resting in the bed does not appear to be in any acute distress HENT: Head: Normocephalic and atraumatic. Cardiovascular: Normal rate and regular rhythm. Pulmonary/Chest: Effort normal and breath sounds normal. No respiratory distress. Musculoskeletal: Normal range of motion. He exhibits no edema. Patient does not have any cervical or thoracic spinous process tenderness crepitus or step-off. Patient has mild discomfort in the lumbar region over L3-4 spinous processes without any evidence of crepitus or step-off. Area of greatest discomfort his paraspinal musculature on the right greater than on the left with evidence of spasm. Patient has jerking discomfort associated with even light palpation. No sacroiliac joint tenderness. Patient has intact strength and sensation in the lower extremitiesbilaterally. Negative straight leg raise from a seated position Neurological: He is alert and oriented to person, place, and time. No cranial nerve deficit. No saddle anesthesia noted Skin: Skin is warm and dry. Psychiatric: He has a normal mood and affect. His behavior is normal. Back Pain (Male) Differential Diagnosis: Back pain, Lumbar strain, Disc herniation, Sciatica, Vertebral fracture, Compression fracture, Osteomyelitis and Metastatic CA. Rad Results: X-ray: independent interpretation of the patient's lumbar spine reveals some arthritic changes without any evidence of fracture or other acute abnormality No results found. Radiographs interpreted by the ED physician will be over-read by a radiologist and the results will be available in the electronic chart. Other Results: Emergency Department Course: Patient was offered analgesia while here in the emergency department and declined intramuscular injection but was willing to take Vicodin and Valium. Discussed with patient as well as who is at bedside imaging studies and they were reviewed with the patient at bedside as well. Patient's exam and h istory are most consistent with muscular strain of the back and subsequent spasm. No evidence of radicular discomfort at this point. Patient saw a chiropractor today who did some adjustments but recommended coming in for further evaluation including an MRI x-ray. Patient does not meet any current criteria for MRI. There does not appear to be any evidence of infectious symptoms nor does patient's discomfort correlate with lesion secondary to metastatic cancer. Discussed with patient plan and recommendation for utilization of pain medication and he specifically requested Vicoprofen. Patient also will be given prescription for muscle relaxants in the form of Robaxin. Recommended utilization of ice 20-30 minutes 4-5 times a day for the next 2-3 days followed by heat and gentle stretching. Patient is to have followup with primary care provider Dr. Deirdre Carroll As needed and I recommended followup with orthopedist for possible OT PT referral either Dr. Rice or Dr. Duffy in the next 5-7 days.Patient is to return to the emergency department for loss of strength or sensation in the lower extremities, bowel or bladder dysfunction, inability to stand walk or function at home, worsening discomfort now well controlled with oral medication or any other concerns. Standard narcotic warnings were provided to patient and . They express understanding and agreement to this plan Procedures: Procedures Assessment: 724.5 Back pain 847.2 Low back strain 724.8 Muscle spasm of back Plan: discharge [facility] Michelle Austin MD 06/20/12 0159 ICS PROFESSOR Soraya Lynch RN - 06/19/2012 11:40 PM CST Pt and spouse verbalize understanding of, and comfort with discharge instructions. Soraya Rodriguez RN - 06/19/2012 11:10 PM CST Pt reports increased pain relief with medications. Sitting in a wheelchair, chatting with . Soraya Rodriguez RN - 06/19/2012 10:50 PM CST Re-assessed by . ICS PROFESSOR Soraya Lynch RN - 06/19/2012 9:20 PM CST Pt developed lower back pain yesterday shortly after moving a heavy bench in his yard. Pain is centered in the middle of his lower back, occasionally radiates down posterior left leg. CMS intact. Eval by chiropractor today without relief. Vicodin at home with minimal relief. ICS PROFESSOR Azra Mitchell RN - 06/19/2012 9:06 PM CST Low back pain since yesterday. Was seen at chiropractor today. ICS PROFESSOR documented in this encounter Plan of Treatment Not on filedocumented as of this encounter Procedures Procedure Name Priority Date/Time Associated Diagnosis Comme nts XR LUMBAR SPINE 2 STAT 06/19/2012 10:04 PM Res ults for this OR 3 VIEWS PHYSICS PROFESSOR procedure are i n the results section. documented in this encounter Results XR LUMBAR SPINE 2 OR 3 VIEWS (06/19/2012 10:04 PM PHYSICS PROFESSOR) Anatomical Region Laterality Modality L-spine, Spine Radiographic Imaging Specimen (Source) Anatomical Location Collection Method / Collectio n Time Received Time / Laterality Volume Impressions 06/20/2012 10:55 AM PHYSICS PROFESSOR ??No acute osseous abnormality. ??Multilevel degenerative change. Narrative 06/20/2012 10:55 AM PHYSICS PROFESSOR THREE VIEWS LUMBAR SPINE 06/19/2012 HISTORY: ??Pain. COMPARISON: ??None. FINDINGS: ??There are five lumbar-type v ertebral bodies. ??There is normal alignment of the lumbar spine. ??Vertebr al body heights are maintained. ?? There is multilevel degenerative disc he ight loss with associated hypertrophic degenerative endplate howard es seen throughout the visualized lower thoracic and lumbar spine. ??This is most severe at the thoracolumbar junction and L5-S1. ??Hypertrophic facet changes, most pronounced in the lower lumbar spine. ??Postoperative gallegos ges of left total hip arthroplasty. Degenerative change at the sacroiliac j oints. ??Atherosclerotic calcifications of the abdominal aorta. ? ? Procedure Note Roxana Morales MD - 06/20/2012 THREE VIEWS LUMBAR SPINE 06/19/2012 HISTORY: Pain. COMPARISON: None. FINDINGS: There are five lumbar-type dakota tebral bodies. There is normal alignment of the lumbar spine. Vertebral body heights are maintained. There is multilevel degenerative disc height loss with associated hypertrophic degenerative endplate howard es seen throughout the visualized lower thoracic and lumbar spine. This is most severe at the thoracolumbar junction and L5-S1. Hypertrophic facet changes, most pronounced in the lower lumbar spine. Postoperative change s of left total hip arthroplasty. Degenerative change at the sacroiliac joints. Atherosclerotic calcifications of the abdominal aorta. IMPRESSION: No acute osseous abnormality . Multilevel degenerative change. Michelle Austin MD [facility] ORDERA BLES documented in this encounter Visit Diagnoses Diagnosis Back pain Backache, unspecified Low back strain Sprain of lumbar region Muscle spasm of back Other symptoms referable to back documented in this encounter Administered Medications Inactive Administered Medications Medication Order MAR Action Action Date Dose Rate Site diazepam (VALIUM) tablet 2 mg Given 06/19/2012 10:17 PM PHYSICS PROFESSOR 2 mg 2 mg, Oral, ONCE, 1 dose, On Mary 06/19/12 at 2200 HYDROcodone-acetaminophen (LORTAB) 7.5-500 Given 06/19 10:17 PM PHYSICS PROFESSOR 1 Tablet MG per tablet 1 Tab 1 Tablet, Oral, ONCE, 1 dose, On Mary 06/19/12 at 2200 documented in this encounter Active and Recently Administered Medications Times are shown in PHYSICS PROFESSOR. Scheduled Medication Order 06/17/2012 06/18/2012 06/19/2012 diazepam (VALIUM) tablet 2 mg (COMPLETED) 2216 (Given - Provider: Soraya Lynch RN) 2 mg, Oral, ONCE, 1 dose, Mary 06/19/12 at 2200 HYDROcodone-acetaminophen (LORTAB) 7.5-500 MG per tablet 1 Tab ( COMPLETED) 2216 (Given - Provider: Soraya Lynch RN) 1 Tab, Oral, ONCE, 1 dose, Mary 06/19/12 at 2200 documented in this encounter Care Teams Residential Assistant Relationship Specialty Start Date End Date Deirdre Bedolla MD PCP - General Family Medicine 06/04/11 01/03/[address] [address] documented as of this encounter
--- OUTSIDE RECORDS SUMMARY | 2022-06-07 21:01 | XMS_ITS | Encounter Summary ---
:1935 Author Organization [employer] Address [address] [address] Phone Care Team Providers Name Role Phone Deirdre Bedolla MD Primary Care Provider [phone] Encounter Details Date Type Department Care Team Description 07/17/2012 Scanned - [facility], Pcp Reports [address] [place] [address] Social History Tobacco Use Types [...] Diagnosis Comme nts EXTERNAL CARDIOLOGY DOCUMENTATION Routine 07/02/2012 documented in this encounter Results EXTERNAL CARDIOLOGY DOCUMENTATION (07/02/2012) Narrative This result has an attachment that is no t available. Pcp Elsewhere IP ECG ORDERABLES documented in this encounter Visit Diagnoses Not on filedocumented in this encounter Care Teams Technology Development Intern Relationship Specialty Start Date End Date Deirdre Bedolla MD PCP - General Family Medicine 06/04/11 01/03/17[address] [id number] documented as of this encounter
--- OUTSIDE RECORDS SUMMARY | 2022-06-07 21:01 | XMS_ITS | Encounter Summary ---
:1935 Author Organization [employer] Address [address] [address] Phone Care Team Providers Name Role Phone Deirdre Bedolla MD Primary Care Provider [phone] Encounter Details Date Type Department Care Team Description 11/03/2012 Scanned - [facility] Else[facility], Pcp Reports 400 [place] [address] Social History Tobacco Use Types [...] Diagnosis Comme nts EXTERNAL CARDIOLOGY DOCUMENTATION Routine 10/28/2012 documented in this encounter Results EXTERNAL CARDIOLOGY DOCUMENTATION (10/28/2012) Narrative This result has an attachment that is no t available. Pcp Elsewhere IP ECG ORDERABLES documented in this encounter Visit Diagnoses Not on filedocumented in this encounter Care Teams Job Site Supervisor Relationship Specialty Start Date End Date Deirdre Bedolla MD PCP - General Family Medicine 06/04/11 01/03/[address] [address] documented as of this encounter
--- OUTSIDE RECORDS SUMMARY | 2022-06-07 21:01 | XMS_ITS | Encounter Summary ---
:1935 Author Organization [employer] Address [address] [address] Phone Care Team Providers Name Role Phone Rima Bedolla MD Primary Care Provider [phone] Reason for Visit Reason Onset Date Comments Appointment 10/21/2012 Encounter Details Date Type Department Care Team Description 10/21/2012 Telephone [facility] FAMILY Jerry Hurley LPN Appointment MEDICINE 2023 [place], [place] [address] Social History Tobacco Use Types Packs/Day Years Used Date Smoking Tobacco: Never Smokeless Tobacco: Never Alcohol Use Standard Drinks/Week Comments No 0 (1 standard drink = 0.6 oz pure alcoho l) Sex Assigned at Date Recorded Not on file documented as of this encounter Miscellaneous Notes Telephone Encounter - Farhana Hurley LPN - 10/21/2012 4:54 PM CDT Message copied by FARHANA HURLEY on SatOct 21, 2012 4:54 PM ------ Message from: RIMA JONES Created: SatOct 21, 2012 4:46 PM Contact: farheen Because of his complicated history, I referred them to urology. Do they have appt? ----- Message ----- From: Farhana Hurley LPN Sent: 10/21/2012 2:34 PM To: Rima Bedolla MD Has been urinating every 15-30 minutes during the night. Was on Detrol before the hospital stay. Can he try that again or something else? ----- Message ----- From: Chastity Ghotra Alters Sent: 10/21/2012 11:29 AM To: [facility] Pool Please give Farheen a call regarding Bill after 2pm today [phone]. He's having issues with his bladder. Thank you Chastity [facility] Ext [phone] documented in this encounter Plan of Treatment Not on filedocumented as of this encounter Visit Diagnoses Not on filedocumented in this encounter Care Teams Hospital Clerk Relationship Specialty Start Date End Date Rima Bedolla MD PCP - General Family Medicine 06/04/11 01/03/[address] [address] documented as of this encounter
--- OUTSIDE RECORDS SUMMARY | 2022-06-07 21:01 | XMS_ITS | Encounter Summary ---
:1935 Author Organization [employer] Address [address] [address] Phone Care Team Providers Name Role Phone Deirdre Bedolla MD Primary Care Provider Reason for Referral Specialty Diagnoses / Procedures Referred By Contact Refer red To Contact [facility] [address] [phone] Referral ID Status Reason Start Date Expiration Date Visits Requ ested Visits Authorized Question Answer Enter specific orders for therapy Evaluate and treat a s necessary Comments Weakness, Pt. Requests [place] [facility] . Encounter Details Date Type Department Care Team Description 10/14/2012 Orders Only [facility] Farhana Hurley, Weakness (Primary Dx) FAMILY MEDICINE FORGING MACHINE OPERATOR 2023 [place], [place] [address] Social History Tobacco Use Types Packs/Day Years [...] malaise and fatigue documented in this encounter Orders REFERRAL Count Last Ordered Date First Ordered Date APPT [facility] 2012 documented in this encounter Care Teams Appeals Nurse Relationship Specialty Start Date End Date Deirdre Bedolla MD PCP - General Family Medicine 06/04/11 01/03/[address] [address] documented as of this encounter
--- OUTSIDE RECORDS SUMMARY | 2022-06-07 21:01 | XMS_ITS | Encounter Summary ---
:1935 Author Organization [employer] Address [address] [address] Phone Care Team Providers Name Role Phone Deirdre Bedolla MD Primary Care Provider [phone] Reason for Visit Reason Onset Date Comments Refill Request 09/29/2012 Encounter Details Date Type Department Care Team Description 09/29/2012 Refill [facility] HurleyJerry LPN Refill Request MEDICINE 2023 [place], [place] [address] Social History Tobacco Use Types Packs/Day Years Used Date Smoking Tobacco: Never Smokeless Tobacco: Never Alcohol Use Standard Drinks/Week Comments No 0 (1 standard drink = 0.6 oz pure alcoho l) Sex Assigned at Date Recorded Not on file documented as of this encounter Ordered Prescriptions Prescription Sig Dispensed Refills Start Date End Date lidocaine (LIDODERM) 5 % Place 3 Patches onto 90 Patch 0 0 09/29/2012 12/10/2012 patch the skin every 24 hours. Remove patch(es) after 12 hours. documented in this encounter Plan of Treatment Not on filedocumented as of this encounter Visit Diagnoses Not on filedocumented in this encounter Care Teams Credit Union Teller Relationship Specialty Start Date End Date Deirdre Bedolla MD PCP - General Family Medicine 06/04/11 01/03/[address] [place] [address] documented as of this encounter
--- OUTSIDE RECORDS SUMMARY | 2022-06-07 21:01 | XMS_ITS | Encounter Summary ---
:1935 Author Organization [employer] Address [address] [address] Phone Care Team Providers Name Role Phone Rima Bedolla MD Primary Care Provider [phone] Reason for Visit Reason Onset Date Comments Other 09/15/2012 Encounter Details Date Type Department Care Team Description 09/15/2012 Telephone [facility] FAMILY Jerry Hurley LPN Other MEDICINE 2023 [place], [place] [address] Social History Tobacco Use Types Packs/Day Years Used Date Smoking Tobacco: Never Smokeless Tobacco: Never Alcohol Use Standard Drinks/Week Comments No 0 (1 standard drink = 0.6 oz pure alcoho l) Sex Assigned at Date Recorded Not on file documented as of this encounter Miscellaneous Notes Telephone Encounter - Farhana Hurley LPN - 09/15/2012 1:30 PM CDT Message copied by FARHANA HURLEY on SatSep 15, 2012 1:30 PM ------ Message from: RIMA JONES Created: SatSep 15, 2012 12:02 PM Done ----- Message ----- From: Farhana Hurley LPN Sent: 09/15/2012 11:46 AM To: Rima Bedolla MD Wants rx for a hospital bed and wheelchair with dx on it faxed to [facility] fax #[phone] attn: Nyla. documented in this encounter Plan of Treatment Not on filedocumented as of this encounter Visit Diagnoses Not on filedocumented in this encounter Care Teams Director Of Cardiac Cath Lab Relationship Specialty Start Date End Date Rima Bedolla MD PCP - General Family Medicine 06/04/11 01/03/[address] [address] documented as of this encounter
--- OUTSIDE RECORDS SUMMARY | 2022-06-07 21:01 | XMS_ITS | Encounter Summary ---
:1935 Author Organization [employer] Address [address] [address] Phone Care Team Providers Name Role Phone Deirdre Bedolla MD Primary Care Provider [phone] Encounter Details Date Type Department Care Team Description 05/20/2012 Orders Only [facility] Em[facility] Duffy, Encounter for routine Center 2 Surgical MD laboratory testing [address] [place] [address] [address] [facility] (Primary Dx) FA[place] [address] [place] [phone] [place] [address] (Wo rk) Social History Tobacco Use Types Packs/Day Years Used Date Smoking Tobacco: Never Smokeless Tobacco: Never Alcohol Use Standard Drinks/Week Comments No 0 (1 standard drink = 0.6 oz pure alcoho l) Sex Assigned at Date Recorded Not on file documented as of this encounter Plan of Treatment Not on filedocumented as of this encounter Visit Diagnoses Diagnosis Encounter for routine laboratory testing - Primary Laboratory examination ordered as part o f a routine general medical examination documented in this encounter Orders Lab Orders Without Results Count Last Ordered Date Fir st Ordered Date CREATININE 1 05/20/2012 documented in this encounter Care Teams Fiberglass Boat Assembly Supervisor Relationship Specialty Start Date End Date Deirdre Bedolla MD PCP - General Family Medicine 06/04/11 01/03/[address] [place] [address] documented as of this encounter
--- OUTSIDE RECORDS SUMMARY | 2022-06-07 21:01 | XMS_ITS | Encounter Summary ---
:1935 Author Organization [employer] Address [address] [address] Phone Care Team Providers Name Role Phone Deirdre Bedolla MD Primary Care Provider [phone] Reason for Visit Reason Comments Refill Request Encounter Details Date Type Department Care Team Description 09/04/2012 Refill [facility] Mabel Bedolla Refill Request FAMILY MEDICINE MD Nomi 2023 [facility] eet [address] [address] [place], [place] [address] (Wo rk) Social History Tobacco Use Types Packs/Day Years Used Date Smoking Tobacco: Never Smokeless Tobacco: Never Alcohol Use Standard Drinks/Week Comments No 0 (1 standard drink = 0.6 oz pure alcoho l) Sex Assigned at Date Recorded Not on file documented as of this encounter Ordered Prescriptions Prescription Sig Dispensed Refills Start Date End Date losartan (COZAAR) 50 MG TAKE ONE TABLET BY 90 Tab 0 08/0910/10/2012 tablet MOUTH ONE TIME DAILY documented in this encounter Plan of Treatment Not on filedocumented as of this encounter Visit Diagnoses Not on filedocumented in this encounter Discontinued Medications Medication Sig Discontinue Reason Start Date End Date losartan (COZAAR) 50 MG TAKE ONE TABLET BY 10/13/2011 09/04/2012 tablet MOUTH ONE TIME DAILY documented as of this encounter Care Teams Hooker Up Relationship Specialty Start Date End Date Deirdre Bedolla MD PCP - General Family Medicine 06/04/11 01/03/[address] [place] [address] documented as of this encounter
--- OUTSIDE RECORDS SUMMARY | 2022-06-07 21:01 | XMS_ITS | Encounter Summary ---
:1935 Author Organization [employer] Address [address] [address] Phone Care Team Providers Name Role Phone Deirdre Bedolla MD Primary Care Provider [phone] Encounter Details Date Type Department Care Team Description 06/27/2012 Scanned - [facility] Else[facility], Pcp Reports 400 [place] [address] Social History Tobacco Use Types [...] Diagnosis Comme nts EXTERNAL CARDIOLOGY DOCUMENTATION Routine 06/24/2012 documented in this encounter Results EXTERNAL CARDIOLOGY DOCUMENTATION (06/24/2012) Narrative This result has an attachment that is no t available. Pcp Elsewhere IP ECG ORDERABLES documented in this encounter Visit Diagnoses Not on filedocumented in this encounter Care Teams Drier And Grinder Tender Relationship Specialty Start Date End Date Deirdre Bedolla MD PCP - General Family Medicine 06/04/11 01/03/[address] [address] documented as of this encounter
--- OUTSIDE RECORDS SUMMARY | 2022-06-07 21:01 | XMS_ITS | Encounter Summary ---
:1935 Author Organization [employer] Address [address] [address] Phone Care Team Providers Name Role Phone Deirdre Bedolla MD Primary Care Provider Encounter Details Date Type Department Care Team Description 07/22/2012 Scanned - Medical [facility] Elsewhere, Pcp Reports 400 [place] [address] Social History Tobacco Use Types [...] Name Priority Date/Time Associated Diagnosis Comme nts COLONOSCOPY,FLEX,DIAGNO Routine 06/27/2012 8:05 AM OFFICE COPY SELECTOR STIC documented in this encounter Visit Diagnoses Not on filedocumented in this encounter Orders Procedures Count Last Ordered Date First Ordered Date COLONOSCOPY,FLEX,DIAGNOSTIC 1 06/27/2012 documented in this encounter Care Teams Animal Stunner Relationship Specialty Start Date End Date Deirdre Bedolla MD PCP - General Family Medicine 06/04/11 01/03/[address] [address] documented as of this encounter
--- OUTSIDE RECORDS SUMMARY | 2022-06-07 21:01 | XMS_ITS | Encounter Summary ---
:1935 Author Organization [employer] [facility] Address [address] [address] Phone Care Team Providers Name Role Phone Deirdre Bedolla MD Primary Care Provider [phone] Reason for Visit Reason Comments Other prior auth for Quetiapine gr anted Encounter Details Date Type Department Care Team Description 10/02/2012 Notes [facility] Danna Cervantes , Other (prior auth for GI DIE STAMPER Quetiapine granted) 2023 [place], [place] [address] Social History Tobacco Use Types Packs/Day Years Used Date Smoking Tobacco: Never Smokeless Tobacco: Never Alcohol Use Standard Drinks/Week Comments No 0 (1 standard drink = 0.6 oz pure alcoho l) Sex Assigned at Date Recorded Not on file documented as of this encounter Progress Notes Danna Cervantes LPN - 10/02/2012 8:24 AM CDT Prior auth for Quetiapine granted for up to 3 tablets daily. Granted thru 09-26-2013. documented in this encounter Plan of Treatment Not on filedocumented as of this encounter Visit Diagnoses Not on filedocumented in this encounter Care Teams Credit Manager Relationship Specialty Start Date End Date Deirdre Bedolla MD PCP - General Family Medicine 06/04/11 01/03/[address] [address] documented as of this encounter
--- OUTSIDE RECORDS SUMMARY | 2022-06-07 21:01 | XMS_ITS | Encounter Summary ---
:1935 Author Organization [employer] Address [address] [address] Phone Care Team Providers Name Role Phone Deirdre Bedolla MD Primary Care Provider [phone] Reason for Visit Reason Comments Other prior auth for Quetiapine se nt Encounter Details Date Type Department Care Team Description 09/30/2012 Notes [facility] Danna Cervantes , Other (prior auth for GI ACCOUNT MANAGEMENT ASSISTANT Quetiapine sent) 2023 [place], [place] [address] Social History Tobacco Use Types Packs/Day Years Used Date Smoking Tobacco: Never Smokeless Tobacco: Never Alcohol Use Standard Drinks/Week Comments No 0 (1 standard drink = 0.6 oz pure alcoho l) Sex Assigned at Date Recorded Not on file documented as of this encounter Progress Notes Danna Cervantes LPN - 09/30/2012 12:39 PM CDT Prior auth for Quetiapine sent to [facility]. Dx Decreased Mentation/Hullucinations. 's notes sent [facility]. documented in this encounter Plan of Treatment Not on filedocumented as of this encounter Visit Diagnoses Not on filedocumented in this encounter Care Teams Lime Mixer Relationship Specialty Start Date End Date Deirdre Bedolla MD PCP - General Family Medicine 06/04/11 01/03/[address] [place], [place] [address] documented as of this encounter
--- OUTSIDE RECORDS SUMMARY | 2022-06-07 21:01 | XMS_ITS | Encounter Summary ---
:1935 Author Organization [employer] Address [address] [address] Phone Care Team Providers Name Role Phone Deirdre Bedolla MD Primary Care Provider [phone] Reason for Visit Reason Comments Refill Request Encounter Details Date Type Department Care Team Description 10/30/2012 Refill [facility] Mabel Bedolla Refill Request FAMILY MEDICINE MD Nomi 2023 [facility] eet [address] [address] [place], [place] [address] (Wo rk) Social History Tobacco Use Types [...] 25 TAKE ONE TABLET BY 30 Tab 0 12/01/2012 MG tablet MOUTH AT BEDTIME FOR ANXIETY simvastatin (ZOCOR) 10 MG TAKE ONE TABLET BY 30 Tab 1 01/05/2013 tablet MOUTH AT BEDTIME pantoprazole (PROTONIX) TAKE ONE TABLET BY 30 Tab 1 10/0712/10/2012 40 MG tablet MOUTH ONE TIME DAILY documented in this encounter Plan of Treatment Not on filedocumented as of this encounter Visit Diagnoses Not on filedocumented in this encounter Discontinued Medications Medication Sig Discontinue Reason Start Date End Date simvastatin (ZOCOR) 10 MG Take 1 Tab by mouth 10/11/19 13 10/30/2012 tablet one time a day. QUEtiapine (SEROQUEL) 25 Take 1 Tab by mouth 3 10/30/2012 MG tablet at bedtime. documented as of this encounter Care Teams Cocktail Server Relationship Specialty Start Date End Date Deirdre Bedolla MD PCP - General Family Medicine 06/04/11 01/03/[address] [address] documented as of this encounter
--- OUTSIDE RECORDS SUMMARY | 2022-06-07 21:01 | XMS_ITS | Encounter Summary ---
:1935 Author Organization [employer] Address [address] [address] Phone Care Team Providers Name Role Phone Deirdre Bedolla MD Primary Care Provider [phone] Reason for Visit Reason Comments Refill Request Encounter Details Date Type Department Care Team Description 10/26/2012 Refill [facility] Mabel Bedolla Refill Request FAMILY MEDICINE MD Nomi 2023 [facility] [address] [address] [place], [place] [address] (Wo rk) Social History Tobacco Use Types [...] (ULTRAM) 50 MG 1-2 po bid prn 120 Tab 0 10/28/19 13 11/26/2012 tablet pain. documented in this encounter Plan of Treatment Not on filedocumented as of this encounter Visit Diagnoses Not on filedocumented in this encounter Care Teams Pricing Lead Relationship Specialty Start Date End Date Deirdre Bedolla MD PCP - General Family Medicine 06/04/11 01/03/[address] [address] documented as of this encounter
--- OUTSIDE RECORDS SUMMARY | 2022-06-07 21:01 | XMS_ITS | Encounter Summary ---
:1935 Author Organization [employer] Address [address] [address] Phone Care Team Providers Name Role Phone Deirdre Bedolla MD Primary Care Provider [phone] Encounter Details Date Type Department Care Team Description 08/01/2012 Scanned - Medical [facility] Elsewhere, Pcp Reports 400 [place] [address] Social History Tobacco Use Types [...] Diagnosis Comme nts EXTERNAL CARDIOLOGY DOCUMENTATION Routine 07/24/2012 documented in this encounter Results EXTERNAL CARDIOLOGY DOCUMENTATION (07/24/2012) Narrative This result has an attachment that is no t available. Pcp Elsewhere IP ECG ORDERABLES documented in this encounter Visit Diagnoses Not on filedocumented in this encounter Care Teams Heel Seam Rubber Relationship Specialty Start Date End Date Deirdre Bedolla MD PCP - General Family Medicine 06/04/11 01/03/[address] [address] documented as of this encounter
--- OUTSIDE RECORDS SUMMARY | 2022-06-07 21:01 | XMS_ITS | Encounter Summary ---
:1935 Author Organization [employer] Address [address] [address] Phone Care Team Providers Name Role Phone Deirdre Bedolla MD Primary Care Provider [phone] Reason for Visit Reason Onset Date Comments Refill Request 09/10/2012 Encounter Details Date Type Department Care Team Description 09/10/2012 Refill [facility] HurleyJerry LPN Refill Request MEDICINE 2023 [place], [place] [address] Social History Tobacco Use Types Packs/Day Years [...] on filedocumented in this encounter Care Teams Ski Maker Wood Relationship Specialty Start Date End Date Deirdre Bedolla MD PCP - General Family Medicine 06/04/11 01/03/[address] [address] documented as of this encounter
--- OUTSIDE RECORDS SUMMARY | 2022-06-07 21:01 | XMS_ITS | Encounter Summary ---
:1935 Author Organization [employer] Address [address] [address] Phone Care Team Providers Name Role Phone Deirdre Bedolla MD Primary Care Provider [phone] Encounter Details Date Type Department Care Team Description 09/17/2012 Scanned - Medical [facility] Elsewhere, Pcp Reports 400 [place] [address] Social History Tobacco Use Types [...] Diagnosis Comme nts EXTERNAL CARDIOLOGY DOCUMENTATION Routine 09/09/2012 documented in this encounter Results EXTERNAL CARDIOLOGY DOCUMENTATION (09/09/2012) Narrative This result has an attachment that is no t available. Pcp Elsewhere IP ECG ORDERABLES documented in this encounter Visit Diagnoses Not on filedocumented in this encounter Care Teams Fur Joiner Relationship Specialty Start Date End Date Deirdre Bedolla MD PCP - General Family Medicine 06/04/11 01/03/[address] [address] documented as of this encounter
--- OUTSIDE RECORDS SUMMARY | 2022-06-07 21:01 | XMS_ITS | Encounter Summary ---
:1935 Author Organization [employer] Address [address] [address] Phone Care Team Providers Name Role Phone Deirdre Bedolla MD Primary Care Provider [phone] Encounter Details Date Type Department Care Team Description 07/16/2012 Scanned - Medical [facility] Elsewhere, Pcp Reports 400 [place] [address] Social History Tobacco Use Types [...] Diagnosis Comme nts EXTERNAL CARDIOLOGY DOCUMENTATION Routine 07/04/2012 documented in this encounter Results EXTERNAL CARDIOLOGY DOCUMENTATION (07/04/2012) Narrative This result has an attachment that is no t available. Pcp Elsewhere IP ECG ORDERABLES documented in this encounter Visit Diagnoses Not on filedocumented in this encounter Care Teams Air Defense Artillery Officer Relationship Specialty Start Date End Date Deirdre Bedolla MD PCP - General Family Medicine 06/04/11 01/03/[address] [address] documented as of this encounter
--- OUTSIDE RECORDS SUMMARY | 2022-06-07 21:02 | XMS_ITS | Encounter Summary ---
:1935 Author Organization [employer] Address [address] [address] Phone Care Team Providers Name Role Phone Deirdre Bedolla MD Primary Care Provider [phone] Reason for Visit Reason Comments Refill Request Encounter Details Date Type Department Care Team Description 08/05/2011 Refill [facility] Mabel Bedolla Refill Request FAMILY MEDICINE MD Nomi 2023 [facility] eet [address] [address] [place], [place] [address] (Wo rk) Social History Tobacco Use Types Packs/Day Years Used Date Smoking Tobacco: Never Smokeless Tobacco: Never Alcohol Use Standard Drinks/Week Comments No 0 (1 standard drink = 0.6 oz pure alcoho l) Sex Assigned at Date Recorded Not on file documented as of this encounter Ordered Prescriptions Prescription Sig Dispensed Refills Start Date End Date omeprazole (PRILOSEC) 20 TAKE ONE CAPSULE BY 180 Cap 2 04/28/2012 MG capsule MOUTH TWICE DAILY documented in this encounter Plan of Treatment Not on filedocumented as of this encounter Visit Diagnoses Not on filedocumented in this encounter Discontinued Medications Medication Sig Discontinue Reason Start Date End Date omeprazole (PRILOSEC) 20, mg, ORAL, DAILY, 0, 10/31/19 08 08/05/2011 20 MG capsule 0, 10/31/07 19:49:28, Substitution Permitted, current med (Hx), Constant Indicator documented as of this encounter Care Teams Dump Truck Driver Relationship Specialty Start Date End Date Deirdre Bedolla MD PCP - General Family Medicine 06/04/11 01/03/[address] [address] documented as of this encounter
--- OUTSIDE RECORDS SUMMARY | 2022-06-07 21:02 | XMS_ITS | Encounter Summary ---
:1935 Author Organization [employer] Address [address] [address] Phone Care Team Providers Name Role Phone Deirdre Bedolla MD Primary Care Provider [phone] Encounter Details Date Type Department Care Team Description 12/28/[address] [facility] [place] Shelli Meyer Encounte r for occupational therapy; Center Occupational OTR Aftercare [facility]; Therapy - Outpt [address] Finger stiffness [address] [place] [id number] Social History Tobacco Use Types Packs/Day Years Used Date Smoking Tobacco: Never Smokeless Tobacco: Never Alcohol Use Standard Drinks/Week Comments No 0 (1 standard drink = 0.6 oz pure alcoho l) Sex Assigned at Date Recorded Not on file documented as of this encounter Progress Notes Shelli Meyer, OTR - 12/29/2011 11:45 AM CDT OCCUPATIONAL THERAPY PROGRESS NOTE SUBJECTIVE: This patient is reporting that he really likes the fluidotherapy and that it helps with his Range ofmotion much better than using warm water. OBJECTIVE: Treatment today included: Fluidotherapy at 115 degrees farenheit for the involved hand for 20 minutes for tissue warming and therapeutic exercise for 23 minutes of AROM/PROM of the finger for flexion and extension, and tendon gliding. AROM Right Long Finger After Treatment MCP 30/80?? PIP 0/95?? DIP 0/65?? AROM Right Ring Finger After Treatment MCP 35/90?? PIP 0/95?? DIP 0/35?? AROM Right Small Finger After treatment MCP 0/85?? PIP 0/90?? DIP 0/55?? Progress Assessment: patient is able to make a full fist. PLAN: Continue plan of care. Response to treatment good Range of motion today. Total Treatment Time: 43 minutes. Provider: Shelli Meyer OTR, CHT, CLT documented in this encounter Plan of Treatment Not on filedocumented as of this encounter Procedures Procedure Name Priority Date/Time Associated Diagnosis Comme nts THERAPEUTIC EXERCISES Routine 12/29/2011 11:45 AM Encounter fo r CDT occupational the rapy Aftercare following surgery of the musculoskeletal system, NEC Finger stiffness PHYSICAL THERAPY Routine 12/29/2011 11:45 AM Encounter for TREATMENT CDT occupational the rapy Aftercare following surgery of the musculoskeletal system, NEC Finger stiffness documented in this encounter Visit Diagnoses Diagnosis Encounter for occupational therapy Aftercare following surgery of the muscu loskeletal system, NEC Finger stiffness Stiffness of joint, not elsewhere classi fied, hand documented in this encounter Orders Procedures Count Last Ordered Date First Ordered Date PHYSICAL THERAPY TREATMENT 1 12/29/2011 THERAPEUTIC EXERCISES 1 12/29/2011 documented in this encounter Care Teams Clerical Order Filler Relationship Specialty Start Date End Date Deirdre Bedolla MD PCP - General Family Medicine 06/04/11 01/03/[address] [address] documented as of this encounter
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
--- OUTSIDE RECORDS SUMMARY | 2022-06-07 21:02 | XMS_ITS | Encounter Summary ---
:1935 Author Organization [employer] Address [address] [address] Phone Care Team Providers Name Role Phone Deirdre Bedolla MD Primary Care Provider [phone] Reason for Visit Reason Comments Refill Request Encounter Details Date Type Department Care Team Description 01/02/2012 Refill [facility] Mabel Bedolla Refill Request FAMILY MEDICINE MD Nomi 2023 [facility] [address] [address] [place], [place] [address] (Wo rk) Social History Tobacco Use Types Packs/Day Years Used Date Smoking Tobacco: Never Smokeless Tobacco: Never Alcohol Use Standard Drinks/Week Comments No 0 (1 standard drink = 0.6 oz pure alcoho l) Sex Assigned at Date Recorded Not on file documented as of this encounter Ordered Prescriptions Prescription Sig Dispensed Refills Start Date End Date LEVITRA 20 MG tablet TAKE ONE TABLET BY MOUTH 7 Tab 5 0 01/02/2012 10/10/2012 EVERY DAY NEEDED FOR ERECTILE DYSFUNCTION documented in this encounter Plan of Treatment Not on filedocumented as of this encounter Visit Diagnoses Not on filedocumented in this encounter Care Teams Job Compositor Relationship Specialty Start Date End Date Deirdre Bedolla MD PCP - General Family Medicine 06/04/11 01/03/[address] [address] documented as of this encounter
--- OUTSIDE RECORDS SUMMARY | 2022-06-07 21:02 | XMS_ITS | Encounter Summary ---
:1935 Author Organization [employer] Address [address] [address] Phone Care Team Providers Name Role Phone Deirdre Bedolla MD Primary Care Provider [phone] Reason for Visit Reason Comments Refill Request Encounter Details Date Type Department Care Team Description 10/13/2011 Refill [facility] Mabel Bedolla Refill Request FAMILY MEDICINE MD Nomi 2023 [facility] eet [address] [address] [place], [place] [address] (Wo rk) Social History Tobacco Use Types Packs/Day Years Used Date Smoking Tobacco: Never Smokeless Tobacco: Never Alcohol Use Standard Drinks/Week Comments No 0 (1 standard drink = 0.6 oz pure alcoho l) Sex Assigned at Date Recorded Not on file documented as of this encounter Ordered Prescriptions Prescription Sig Dispensed Refills Start Date End Date terazosin 2 MG capsule TAKE ONE CAPSULE BY 90 Cap 2 01/201210/22/2012 MOUTH NIGHTLY AT BEDTIME losartan (COZAAR) 50 MG TAKE ONE TABLET BY 90 Tab 2 01/201209/04/2012 tablet MOUTH ONE TIME DAILY documented in this encounter Plan of Treatment Not on filedocumented as of this encounter Visit Diagnoses Not on filedocumented in this encounter Discontinued Medications Medication Sig Discontinue Reason Start Date End Date losartan (COZAAR) 50 MG TAKE ONE TABLET BY 05/19/2011 10/13/2011 tablet MOUTH ONE TIME DAILY terazosin 2 MG capsule Take 1 Cap by mouth 01/15/2011 10/13/2011 at bedtime. documented as of this encounter Care Teams Quality Audit Representative Relationship Specialty Start Date End Date Deirdre Bedolla MD PCP - General Family Medicine 06/04/11 01/03/[address] [address] documented as of this encounter
--- OUTSIDE RECORDS SUMMARY | 2022-06-07 21:02 | XMS_ITS | Encounter Summary ---
:1935 Author Organization [employer] Address [address] [place] [address] Phone Care Team Providers Name Role Phone Deirdre Bedolla MD Primary Care Provider [phone] Encounter Details Date Type Department Care Team Description 07/05/2011 Office Visit [facility] Raman Wilkins, PT Other physical therapy (Primary Dx); Center Vegetable Farmer - [address] isorders of bursae and tendons in shoulder region, unspecified; Rehab Out[facility] [place] Shoulder pain [address] [place] [place] [address] [address] [place] [address] Social History Tobacco Use Types Packs/Day Years Used Date Smoking Tobacco: Never Smokeless Tobacco: Never Alcohol Use Standard Drinks/Week Comments No 0 (1 standard drink = 0.6 oz pure alcoho l) Sex Assigned at Date Recorded Not on file documented as of this encounter Progress Notes Raman Wilkins, PT - 07/05/2011 10:34 AM CST PROGRESS NOTE FOR Simon Castillo Subjective report: Patient reports that his shoulder is doing better since last session and that he is anxious to progress back into the theraband And that he is doing his home program compliantly and that he can do more reaching with fewer complaints Pain ratin/10 Functional status: Patient is out of his brace and is eating with his hand and is dressing with lessdifficulty he is in the active phase of his rehab and needs to be careful and since his last check with physician he is now doing active rom and he is now able to lift 8 ounces for his exercises with no complaints Compliance with home program: Patient continues to have good home compliance of exercises but he is overdoing his activities at home and this will lead to more problems with pain and with loss of motion if he is not careful and he needs to be more careful because he is doing too much at home and he also is doing too much with his therabands so we are holding with it Objective findings: For involved / shoulder active asst flexion is 155 degrees, active flexion is 150 degrees and ER is 50 degrees with all with no significant discomfort. Visual inspection of incisionshows no redness or drainage and is healing favorably. Palpation does display some tightness into the upper trap and into the levator scapula of both left and right sides Treatment today: 1.Skilled ultrasound is done with patient in sitting position with ultrasound done to the upper trap, levator , posterior cuff and into the distal deltoid being careful to stay away from subacromial space and surgical incision site with one sayda hertz sound head at .8 w/cm2 x 10 minutes with continoussetting with no pain 2.Skilled manual therapy techniques consisting of soft tissue mobilization and manual edema mobilization is done to the upper trapezius, levator scapula, posterior rotator cuff , and going into the humeral areas in order to decrease pain,promote relaxation of tissue, decrease edema, promote elasticityof tissue, promote tissue healing while patient is in seated position with pillow under elbow x 17 minutes. 3.Therapeutic exercise is done working with gentle scapular retractions, pendulums rom to hand wristand elbow, and while in supine position in recliner he works with gentle Passive rom with emphasis on flexion and he achieves 155 degrees of passive flexion and his er is 50 degrees and he is able to also work with table top slides, and he also does supine rtc program of flexion and ceiling punches With numerous verbal cues to relax and he does work with exercisesand he is now able to work into vertical position doing wall slides with asst and also is able to work with low level rows and also scapular retraction with extension to hip for 20 minutes for his exercises and he also was instructed on gentle er isometrics at a very very gentle level and he does 8 ounces for his scapular stabilization exercises at a gentle level with no pain with numerous verbal cues to be careful and since he is doing better with his shoulder he does progress back to the level 1 theraband TUBE With very very gentle scapular retraction being done 4.Ice pack is given post treatment x 10 minutes to decrease swelling, decrease post inflammatory soreness Response to treatment: Good with no signicant increase of pain noted and he is now able to progress to standing exercises but he did have to hold with therabands and also to work with 8ounces And he isable to get back to level 1 theraband for retraction Communication/education: Emphasis has been made to protect repair by avoiding active lifting, avoiding reaching, avoiding significant hand behind back activities, and to make sure that exercises are done with minimal to no pain. Again significant verbal cues are given that he be careful with his at home activities Plan: Will continue with PT with rom and strengthening and will decrease freq to one time / week forhis PT intervention Is patient achieving their goals following the plan of care? YES because he has improved shoulder passive rom and now improved active asst rom, I and is also having minimal pain with his shoulder at this time and he still need considerable verbal cues to not overdo. He is also doing better with being able to progress into the next phase of his rehab of progressing from supine to vertical position andhe also was able to progress to gentle isometrics for ER strengthening at a very very gentle level .He is also now able to progress to 8 ounces and theraband with numerous verbal cues to be careful Total treatment time: 60 minutes Provider: Raman Wilkins PT MIC RESTORER documented in this encounter Plan of Treatment Not on filedocumented as of this encounter Procedures Procedure Name Priority Date/Time Associated Diagnosis Comme nts MANUAL THER Routine 07/05/2011 10:34 AM Other physic al correctional therapy director,1+REGIONS,EA 15 MIN CERAMIC RESTORER Disorders of bur matteo and tendons in shoulder region, unspecified Shoulder pain THERAPEUTIC EXERCISES Routine 07/05/2011 10:34 AM Other physical therapy CERAMIC RESTORER Disorders of bursae and tendons in shoulder region, unspecified Shoulder pain ULTRASOUND THERAPY Routine 07/05/2011 10:34 AM Other phy sical therapy CERAMIC RESTORER Disorders of bursae and tendons in shoulder region, unspecified Shoulder pain documented in this encounter Visit Diagnoses Diagnosis Other physical therapy - Primary Disorders of bursae and tendons in shoul brittnee region, unspecified Shoulder pain Pain in joint, shoulder region documented in this encounter Orders Procedures Count Last Ordered Date First Ordered Date MANUAL THER TECH,1+REGIONS,EA 15 MIN 1 07/05/2011 THERAPEUTIC EXERCISES 1 07/05/2011 ULTRASOUND THERAPY 1 07/05/2011 documented in this encounter Care Teams Customer Support Executive Relationship Specialty Start Date End Date Deirdre Bedolla MD PCP - General Family Medicine 06/04/11 01/03/[address] [address] documented as of this encounter
--- OUTSIDE RECORDS SUMMARY | 2022-06-07 21:02 | XMS_ITS | Encounter Summary ---
:1935 Author Organization [employer] Address [address] [address] Phone Care Team Providers Name Role Phone Deirdre Bedolla MD Primary Care Provider [phone] Encounter Details Date Type Department Care Team Description 07/18/2011 Hospital Encounter [facility] Radiology Brandin R Emory Duffy, [address] [place] [address] [place] [address] [place] [address] (Wo rk) Social History Tobacco Use [...] Means Destination Discharged documented in this encounter Procedure Notes Emory Duffy MD - 07/24/2011 1:38 PM CST CH LEAD documented in this encounter Plan of Treatment Not on filedocumented as of this encounter Procedures Procedure Name Priority Date/Time Associated Diagnosis Comme nts MR SHOULDER LEFT WO Routine 07/18/2011 12:20 PM R esults for this W CONTRAST BRANCH LEAD procedure are i n the results section. documented in this encounter Results MR SHOULDER LEFT WO W CONTRAST (07/18/2011 12:20 PM BRANCH LEAD) Anatomical Region Laterality Modality Shoulder Magnetic Resonance Specimen (Source) Anatomical Location Collection Method / Collectio n Time Received Time / Laterality Volume Impressions 07/18/2011 6:00 PM BRANCH LEAD ?? 1. ??Stable intramuscular fatty tumor. ? ?Clinical followup is recommended. ?? 2. ??Limited evaluation of the shoulder demonstrates full-thickness tear of the supraspinatus tendon with approximat nii 1 cm of retraction. ??Moderate associated muscle belly atrophy. ??This is seen on background of supraspinatus tendinosis. 3. ??Moderate tendinosis of the infraspi natus tendon. ?? 4. ??Advanced hypertrophic degenerative facet changes of the acromioclavicular joint with mass effect on the supraspinatus. ??Small amount of fluid is seen within the AC sabrina int space. ?? Narrative 07/18/2011 6:00 PM BRANCH LEAD MRI LEFT SHOULDER WITHOUT AND WITH CONTRAST 07/18/2011 HISTORY: ??Pain, evaluate left shoulder mass. COMPARISON: ??Plain films from and MRI of the left shoulder 07/20/2010. ?? FINDINGS: ??Artifact mildly limits exam. Again demonstrated is a mass within the deltoid muscle at the posterolateral margin of the shoulder. ? ?This measures a maximum of 4.2 x 3.6 x 7.3 cm. ??Allowing for differences in technique, this is stable. ?? There are no enhancing or thickened sept ations. ??Again, this mass extends from the origin of the deltoid muscle at the acromion to the mid deltoid muscle belly. ??No associated edema. Examination was optimized for the evalua tion of the mass described above and not the shoulder itself, limiting ex amination. ??However, there are advanced hypertrophic degenerative howard es of the acromioclavicular joint. There is a small amount of fluid within the AC joint. ??These hypertrophic degenerative changes have mass effect on the supraspinatus. ??There is a type II acromion without significant lina nsloping. ?? There is a full-thickness tear of the gastelum praspinatus tendon with approximately 1.2 cm of tendon retractio n. ??This tear measures 2 cm in AP dimension. ??This is seen on a backgroun d of diffuse supraspinatus thickening and increased signal. ??There is thickening and increased signal of the infraspinatus tendon without defi nite tendon tearing. ??Teres minor and subscapularis tendons are intact. ?? Biceps tendon is intact. ??Diffuse high signal involving the superior labru m is consistent with degenerative tearing. ??There is a small amount of fl uid in the subacromial/subdeltoid bursa as well as the subscapularis reces s. Mild subchondral cystic change involving the posterolateral humeral head. ?? Bone marrow signal is otherwise within n ormal limits for age. ?? Procedure Note Roxana Morales MD - 07/18/2011 MRI LEFT SHOULDER WITHOUT AND WITH CONTR AST 07/18/2011 HISTORY: Pain, evaluate left shoulder ma ss. COMPARISON: Plain films from 12/19/2010 and MRI of the left shoulder 07/20/2010. FINDINGS: Artifact mildly limits exam. Again demonstrated is a mass within the deltoid muscle at the posterolateral margin of the shoulder. This measures a maximum of 4.2 x 3.6 x 7.3 cm. Allowing for differences in technique, this is stable. There are no enhancing or thickened sept ations. Again, this mass extends from the origin of the deltoid muscle at the acromion to the mid deltoid muscle belly. No associated edema. Examination was optimized for the evalua tion of the mass described above and not the shoulder itself, limiting examination. However, there are advanced hypertrophic degenerative changes of the acromioclavicular joint. There is a small amount of fluid within the AC joint. These hypertrophic degenerative changes have mass effect on the supraspinatus. There is a type II acromion without significant downsloping. There is a full-thickness tear of the gastelum praspinatus tendon with approximately 1.2 cm of tendon retraction. This tear measures 2 cm in AP dimension. This is seen on a background of diffuse supraspinatus thickening and increased signal. There i s thickening and increased signal of the infraspinatus tendon without definite tendon tearing. Teres minor and subscapularis tendons are intact. Biceps tendon is intact. Diffuse high signal involving the superior labru m is consistent with degenerative tearing. There is a small amount of fluid in the subacromial/subdeltoid bursa as well as the subscapularis recess. Mild subchondral cystic change involving the posterolateral humeral head. Bone marrow signal is otherwise within normal limits for age. IMPRESSION: 1. Stable intramuscular fatty tumor. Cli nical followup is recommended. 2. Limited evaluation of the shoulder de monstrates full-thickness tear of the supraspinatus tendon with approximately 1 cm of retraction. Moderate associated muscle belly atrophy. This is seen on background of supraspinatus tendinosis. 3. Moderate tendinosis of the infraspina tus tendon. 4. Advanced hypertrophic degenerative fa cet changes of the acromioclavicular joint with mass effect on the supraspinatus. Small amount of fluid is seen within the AC joint space. Emory Duffy MD EC MRI ORDERABLES documented in this encounter Visit Diagnoses Not on filedocumented in this encounter Administered Medications Inactive Administered Medications Medication Order MAR Action Action Date Dose Rate Site Gadodiamide (OMNISCAN) 287 MG/ML Given 07/18/2011 12:19 PM BRANCH LEAD 1 5 mL 15 mL 15 mL, IV Push, ONCE, 1 dose, On Sat07/18/11 at 1230 documented in this encounter Orders Medications Ordered That Might Not Have Count Last Ord ered Date First Ordered Date Been Administered Gadodiamide (OMNISCAN) 287 MG/ML 15 mL 1 2 documented in this encounter Care Teams Principal Embedded Software Engineer Relationship Specialty Start Date End Date Deirdre Bedolla MD PCP - General Family Medicine 06/04/11 01/03/[address] [address] documented as of this encounter
--- OUTSIDE RECORDS SUMMARY | 2022-06-07 21:02 | XMS_ITS | Encounter Summary ---
:1935 Author Organization [employer] Address [address] [address] Phone Care Team Providers Name Role Phone Deirdre Bedolla MD Primary Care Provider Reason for Visit Reason Comments Refill Request Encounter Details Date Type Department Care Team Description 10/17/2011 [facility] Mabel Bedolla Refill Request FAMILY MEDICINE MD Nomi 2023 [facility] eet [address] [address] [place], [place] [id number] (Wo rk) Social History Tobacco Use Types [...] CR TAKE ONE TABLET BY 90 Tab 0 201103/08/2012 (K-DUR, KLOR-CON M) 20 MEQ MOUTH ONE TIME tablet DAILY documented in this encounter Plan of Treatment Not on filedocumented as of this encounter Visit Diagnoses Not on filedocumented in this encounter Care Teams Fuel System Maintenance Worker Relationship Specialty Start Date End Date Deirdre Bedolla MD PCP - General Family Medicine 06/04/11 01/03/[address] [address] documented as of this encounter
--- OUTSIDE RECORDS SUMMARY | 2022-06-07 21:02 | XMS_ITS | Encounter Summary ---
:1935 Author Organization [employer] Address [address] [address] Phone Care Team Providers Name Role Phone Deirdre Bedolla MD Primary Care Provider [phone] Reason for Visit Reason Comments Refill Request Encounter Details Date Type Department Care Team Description 08/09/2011 [facility] Yoel Ortega MD Refill Request FAMILY MEDICINE [id number] [facility] 2023 [facility] [place] [address] [place], [place] [address] [phone] Social History Tobacco Use Types Packs/Day Years Used Date Smoking Tobacco: Never Smokeless Tobacco: Never Alcohol Use Standard Drinks/Week Comments No 0 (1 standard drink = 0.6 oz pure alcoho l) Sex Assigned at Date Recorded Not on file documented as of this encounter Ordered Prescriptions Prescription Sig Dispensed Refills Start Date End Date lisinopril (PRINIVIL, TAKE ONE TABLET BY 90 Tab 5 201111/19/2011 ZESTRIL) 10 MG tablet MOUTH ONE TIME DAILY documented in this encounter Plan of Treatment Not on filedocumented as of this encounter Visit Diagnoses Not on filedocumented in this encounter Care Teams Inserter Promotional Item Relationship Specialty Start Date End Date Deirdre Bedolla MD PCP - General Family Medicine 06/04/11 01/03/[address] [place] [address] documented as of this encounter
--- OUTSIDE RECORDS SUMMARY | 2022-06-07 21:02 | XMS_ITS | Encounter Summary ---
:1935 Author Organization [employer] Address [address] [address] Phone Care Team Providers Name Role Phone Deirdre Bedolla MD Primary Care Provider [phone] Encounter Details Date Type Department Care Team Description 05/16/2012 Orders Only [facility] Farhana Hurley, INTERNET AND E BUSINESS PROJECT MANAGER Hyperlipidemia; FAMILY MEDICINE Hypertension; 2023 [facility] eet Diabetes [place] [id number] Social History Tobacco Use Types Packs/Day Years Used Date Smoking Tobacco: Never Smokeless Tobacco: Never Alcohol Use Standard Drinks/Week Comments No 0 (1 standard drink = 0.6 oz pure alcoho l) Sex Assigned at Date Recorded Not on file documented as of this encounter Plan of Treatment Not on filedocumented as of this encounter Results BASIC MET PROF (05/22/2012 11:08 AM DUCT LAYER SUPERVISOR) athologist Signature SODIUM 140 134 - 143 [facility] mEq/L [facility] POTASSIUM 4.3 3.4 - 5.1 [facility] Chloride 105 99 - 110 [facility] CO2 25 22 - 29 [facility] [facility] BUN 23 5 - 24 [facility] mg/dL [facility] Creatinine 1.13 0.70 - 1.20 [place] mg/dL [facility] GFR CALC >60 [facility] Comment: GFR Normal: >60 mL/min/1.73 m2 Calcium 9.4 8.4 - 10.2 mg/dL [facility] ANION GAP 10 3 - 15 [facility] GLUCOSE 98 70 - 99 mg/dL [facility] ORY Specimen Anatomical Collection Method Collection Time Receive d Time (Source) Location / / Volume Laterality 05/22/2012 11:08 05/22/2012 AM DUCT LAYER SUPERVISOR 11:14 AM DUCT LAYER SUPERVISOR Deirdre Bedolla MD EC CHEMISTRY ORDERABLES Performing Organization Address City/State/ZIP Code Phon e Number [facility] (ABNORMAL) A1C(HGB AIC) (05/22/2012 11:08 AM DUCT LAYER SUPERVISOR) P athologist Signature A1C (HGB AIC) 6.3 (H) 4.0 - 6.0 [facility] % [facility] Est Average 134 mg/dL [facility] Glucose LABORATORY Specimen Anatomical Collection Method Collection Time Receive d Time (Source) Location / / Volume Laterality 05/22/2012 11:08 05/22/2012 AM DUCT LAYER SUPERVISOR 11:14 AM DUCT LAYER SUPERVISOR Deirdre Bedolla MD EC CHEMISTRY ORDERABLES A BN Performing Organization Address City/State/ZIP Code Phon e Number [facility] documented in this encounter Visit Diagnoses Diagnosis Hyperlipidemia Other and unspecified hyperlipidemia Hypertension Unspecified essential hypertension Diabetes Type II or unspecified type diabetes cindy litus without mention of complication, not stated as uncontrolled documented in this encounter Care Teams Bench Worker Relationship Specialty Start Date End Date Deirdre Bedolla MD PCP - General Family Medicine 06/04/11 01/03/[address] [address] documented as of this encounter
--- OUTSIDE RECORDS SUMMARY | 2022-06-07 21:02 | XMS_ITS | Encounter Summary ---
:1935 Author Organization for[employer] Address [address] [address] Phone Care Team Providers Name Role Phone Deirdre Bedolla MD Primary Care Provider [phone] Reason for Visit Reason Onset Date Comments Chronic Disease Management 05/14/2012 Encounter Details Date Type Department Care Team Description 05/14/2012 Telephone [employer] PATIENT [facility] Chronic Disease [facility] [address] [place] [address] Social History Tobacco Use Types Packs/Day Years Used Date Smoking Tobacco: Never Smokeless Tobacco: Never Alcohol Use Standard Drinks/Week Comments No 0 (1 standard drink = 0.6 oz pure alcoho l) Sex Assigned at Date Recorded Not on file documented as of this encounter Miscellaneous Notes Telephone Encounter - Deloris Parker CMA - 05/14/2012 12:45 PM CST Patient is due for a Lab First; fasting OVS for diabetes, hypertension and vascular disease. I have attempted to contact this patient by phone with the following results: message left to return my callwith 3rd Democrat. SPRING II INSPECTOR documented in this encounter Plan of Treatment Not on filedocumented as of this encounter Visit Diagnoses Not on filedocumented in this encounter Care Teams Pharmacy Scheduler Relationship Specialty Start Date End Date Deirdre Bedolla MD PCP - General Family Medicine 06/04/11 01/03/17[address] [id number] documented as of this encounter
--- OUTSIDE RECORDS SUMMARY | 2022-06-07 21:02 | XMS_ITS | Encounter Summary ---
:1935 Author Organization [employer] Address [address] [address] Phone Care Team Providers Name Role Phone Deirdre Bedolla MD Primary Care Provider [phone] Reason for Visit Reason Comments Refill Request Encounter Details Date Type Department Care Team Description 03/08/2012 Refill [facility] Mabel Bedolla Refill Request FAMILY MEDICINE MD Nomi 2023 [facility] eet [address] [address] [place], [place] [address] (Wo rk) Social History Tobacco Use Types [...] TAKE ONE TABLET BY 90 Tab 0 201106/09/2012 (MARIA PARR) 20 MEQ MOUTH ONE TIME tablet DAILY documented in this encounter Plan of Treatment Not on filedocumented as of this encounter Visit Diagnoses Not on filedocumented in this encounter Discontinued Medications Medication Sig Discontinue Reason Start Date End Date potassium chloride CR TAKE ONE TABLET BY 10/17/2011 03/08/2012 (MARIA PARR) 20 MOUTH ONE TIME DAILY MEQ tablet documented as of this encounter Care Teams Jumpbasting Canvas Baster Relationship Specialty Start Date End Date Deirdre Bedolla MD PCP - General Family Medicine 06/04/11 01/03/17[address] [id number] documented as of this encounter
--- OUTSIDE RECORDS SUMMARY | 2022-06-07 21:02 | XMS_ITS | Encounter Summary ---
:1935 Author Organization [employer] Address [address] [address] Phone Care Team Providers Name Role Phone Deirdre Bedolla MD Primary Care Provider [phone] Encounter Details Date Type Department Care Team Description 06/15/2011 Orders Only [facility] Farhana Hurley, Hyperte nsion; CLINIC FAMILY MEDICI NE FITTINGS TIGHTENER DM w/o complication type II (HCC) 2023 [place], [place] [id number] Social History Tobacco Use Types Packs/Day Years Used Date Smoking Tobacco: Never Smokeless Tobacco: Never Alcohol Use Standard Drinks/Week Comments No 0 (1 standard drink = 0.6 oz pure alcoho l) Sex Assigned at Date Recorded Not on file documented as of this encounter Plan of Treatment Not on filedocumented as of this encounter Results AST (06/20/2011 11:35 AM CHILD WELFARE DIRECTOR) athologist Signature AST(SGOT) 22 0 - 40 IU/L [facility] Specimen Anatomical Collection Method Collection Time Receive d Time (Source) Location / / Volume Laterality 06/20/2011 11:35 06/20/2011 AM CHILD WELFARE DIRECTOR 11:54 AM CHILD WELFARE DIRECTOR Deirdre Bedolla MD EC CHEMISTRY ORDERABLES Performing Organization Address City/State/ZIP Code Phon e Number [facility] (ABNORMAL) BASIC MET PROF (06/20/2011 11:35 AM CHILD WELFARE DIRECTOR) P athologist Signature SODIUM 139 136 - 144 [facility] mEq/L [facility] POTASSIUM 4.5 3.4 - 4.6 [facility] Chloride 101 98 - 107 [facility] CO2 27 22 - 32 [facility] BUN 23 8 - 23 [facility] mg/dL [facility] Creatinine 1.20 0.60 - 1.20 [place] mg/dL [facility] GFR CALC 59 (A) [facility] Comment: GFR Normal: >60 mL/min/1.73 m2 Calcium 10.0 8.8 - 10.4 mg/dL [facility] ANION GAP 15.5 [facility] GLUCOSE 99 70 - 99 mg/dL [facility] ORY Specimen Anatomical Collection Method Collection Time Receive d Time (Source) Location / / Volume Laterality 06/20/2011 11:35 06/20/2011 AM CHILD WELFARE DIRECTOR 11:54 AM CHILD WELFARE DIRECTOR Deirdre Bedolla MD EC CHEMISTRY ORDERABLES Performing Organization Address City/State/ZIP Code Phon e Number [facility] (ABNORMAL) A1C(HGB AIC) (06/20/2011 11:35 AM CHILD WELFARE DIRECTOR) P athologist Signature A1C (HGB AIC) 6.2 (H) 0.0 - 6.0 [facility] % [facility] Specimen Anatomical Collection Method Collection Time Receive d Time (Source) Location / / Volume Laterality 06/20/2011 11:35 06/20/2011 AM CHILD WELFARE DIRECTOR 11:54 AM CHILD WELFARE DIRECTOR Deirdre Bedolla MD EC CHEMISTRY ORDERABLES A BN Performing Organization Address City/State/ZIP Code Phon e Number [facility] documented in this encounter Visit Diagnoses Diagnosis Hypertension Unspecified essential hypertension Type II or unspecified type diabetes cindy litus without mention of complication, not stated as uncontrolled documented in this encounter Care Teams Dictating Transcribing Machine Servicer Relationship Specialty Start Date End Date Deirdre Bedolla MD PCP - General Family Medicine 06/04/11 01/03/17[address] [address] documented as of this encounter
--- OUTSIDE RECORDS SUMMARY | 2022-06-07 21:02 | XMS_ITS | Encounter Summary ---
:1935 Author Organization [employer] Address [address] [address] Phone Care Team Providers Name Role Phone Deirdre Bedolla MD Primary Care Provider [phone] Reason for Visit Reason Comments Refill Request Encounter Details Date Type Department Care Team Description 09/22/2011 Refill [facility] Mabel Bedolla Refill Request FAMILY MEDICINE MD Nomi 2023 [facility] [address] [address] [place], [place] [address] (Wo rk) Social History Tobacco Use Types [...] TAKE ONE TABLET BY 90 Tab 1 201106/11/2012 MOUTH ONE TIME DAILY documented in this encounter Plan of Treatment Not on filedocumented as of this encounter Visit Diagnoses Not on filedocumented in this encounter Care Teams Baggage Agent Supervisor Relationship Specialty Start Date End Date Deirdre Bedolla MD PCP - General Family Medicine 06/04/11 01/03/17[address] [address] documented as of this encounter
--- OUTSIDE RECORDS SUMMARY | 2022-06-07 21:02 | XMS_ITS | Encounter Summary ---
:1935 Author Organization [employer] Address [address] [address] Phone Care Team Providers Name Role Phone Deirdre Bedolla MD Primary Care Provider [phone] Encounter Details Date Type Department Care Team Description 12/25/2011 Scanned - Medical [facility] HIS Elsewhere, Pcp Reports [address] [place] [address] Social History Tobacco Use Types [...] Comme nts EYE EXAM & TREATMENT Routine 12/17/2011 documented in this encounter Results EYE EXAM & TREATMENT (12/17/2011) Narrative This result has an attachment that is no t available. Pcp Elsewhere EC PROCEDURES documented in this encounter Visit Diagnoses Not on filedocumented in this encounter Care Teams Product Development Specialist Relationship Specialty Start Date End Date Deirdre Bedolla MD PCP - General Family Medicine 06/04/11 01/03/17[address] [address] documented as of this encounter
--- OUTSIDE RECORDS SUMMARY | 2022-06-07 21:02 | XMS_ITS | Encounter Summary ---
:1935 Author Organization [employer] Address [address] [place] [address] Phone Care Team Providers Name Role Phone Deirdre Bedolla MD Primary Care Provider [phone] Encounter Details Date Type Department Care Team Description 07/24/2011 Office Visit [facility] Raman Wilkins, PT Other physical therapy (Primary Dx); Center Station Installer - [address] D isorders of bursae and tendons in shoulder region, unspecified; Rehab Outpt [place] Shoulder pain [address] [place] [place] [address] [address] [place] [address] Social History Tobacco Use Types Packs/Day Years Used Date Smoking Tobacco: Never Smokeless Tobacco: Never Alcohol Use Standard Drinks/Week Comments No 0 (1 standard drink = 0.6 oz pure alcoho l) Sex Assigned at Date Recorded Not on file documented as of this encounter Progress Notes Raman Wilkins, PT - 07/24/2011 11:03 AM CST PROGRESS NOTE FOR Simon Castillo Subjective report: Patient reports that he is doing his exercises at home with no complaints and stil reports that he has not been lifting the gallon of milk yet and that he also feels that the soft tissue work done with PT helps his shoulder considerably . Patient reports that if he is driving he does have some increase of shoulder discomfort If he keeps his hand on the steering wheel too high and that he also is able to drive with less pain if he keeps his hand lower on the steering wheel Pain ratin/10 Functional status: Patient is out of his brace and is eating with his hand and is dressing with lessdifficulty he is in the active phase of his rehab and needs to be careful and since his last check with physician he is now doing active rom and he is now able to lift 16 ounces for his exercises with no complaints Compliance with home program: Patient continues to have good home compliance with verbal cues to do exercise to point of fatigue and NOT PAIN Objective findings: For involved / shoulder active asst flexion is 155 degrees, active flexion is 150 degrees and ER is 55 degrees with all with no significant discomfort. Visual inspection of incisionshows no redness or drainage and is healing favorably. Palpation does display some tightness into the upper trap and into the levator scapula of both left and right sides. Treatment today: 1.Skilled ultrasound is done with patient in sitting position with ultrasound done to the upper trap, levator , posterior cuff and into the distal deltoid being careful 1.0 w/cm2 x 10 minutes with continous setting with no pain 2.Skilled manual therapy techniques [...] also scapular retraction with extension to hip and since he [facility] does not do them resistance so that he does not over do them and he is instructed to HOLD with isometrics for IR strengthening at this time 4.Ice pack is given post treatment x 10 minutes to decrease swelling, decrease post inflammatory soreness Response to treatment: Good with no signicant increase of pain noted and he is now able to progress to standing exercises but he did have to hold with therabands and also to work with 16 ounces And he is able to get back to level 1 theraband for retraction Communication/education: Emphasis has been made to protect repair by avoiding active lifting, avoiding reaching, avoiding significant hand behind back activities, and to make sure that exercises are done with minimal to no pain. Again significant verbal cues are given that he be careful with his at home activities. He is instructed to HOLD with ir isometrics at this time Plan: Will continue with PT with rom and strengthening and will decrease freq to one time / week forhis PT intervention and he will also be having an mri of his other shoulder to check the growth noted and also to check his rtc status Is patient achieving their goals following the [...] is also now able to progress to 16 ounces and theraband with numerous verbal cues to be careful Total treatment time: 60 minutes Provider: Raman Wilkins PT ER TECHNICIAN documented in this encounter Plan of Treatment Not on filedocumented as of this encounter Procedures Procedure Name Priority Date/Time Associated Diagnosis Comme nts MANUAL THER Routine 07/24/2011 11:02 AM Other physic al cad developer,1+REGIONS,EA 15 MIN SOLDER TECHNICIAN Disorders of bur matteo and tendons in shoulder region, unspecified Shoulder pain THERAPEUTIC EXERCISES Routine 07/24/2011 11:02 AM Other physical therapy SOLDER TECHNICIAN Disorders of bursae and tendons in shoulder region, unspecified Shoulder pain ULTRASOUND THERAPY Routine 07/24/2011 11:02 AM Other phy sical therapy SOLDER TECHNICIAN Disorders of bursae and tendons in shoulder region, unspecified Shoulder pain documented in this encounter Visit Diagnoses Diagnosis Other physical therapy - Primary Disorders of bursae and tendons in shoul brittnee region, unspecified Shoulder pain Pain in joint, shoulder region documented in this encounter Orders Procedures Count Last Ordered Date First Ordered Date MANUAL THER TECH,1+REGIONS,EA 15 MIN 1 07/24/2011 THERAPEUTIC EXERCISES 1 07/24/2011 ULTRASOUND THERAPY 1 07/24/2011 documented in this encounter Care Teams Paraprofessional Aide Teacher Relationship Specialty Start Date End Date Deirdre Bedolla MD PCP - General Family Medicine 06/04/11 01/03/[address] [address] documented as of this encounter
--- OUTSIDE RECORDS SUMMARY | 2022-06-07 21:02 | XMS_ITS | Encounter Summary ---
:1935 Author Organization [employer] Address [address] [address] Phone Care Team Providers Name Role Phone Deirdre Bedolla MD Primary Care Provider [phone] Reason for Visit Reason Comments Refill Request Encounter Details Date Type Department Care Team Description 04/03/2012 Refill [facility] Mabel Bedolla Refill Request FAMILY MEDICINE MD Nomi 2023 [facility] [address] [address] [place], [place] [address] (Wo rk) Social History Tobacco Use Types [...] MG TAKE ONE TABLET 90 Tab 0 04/0307/17/2012 tablet BY MOUTH ONE TIME DAILY documented in this encounter Plan of Treatment Not on filedocumented as of this encounter Visit Diagnoses Not on filedocumented in this encounter Discontinued Medications Medication Sig Discontinue Reason Start Date End Date hydrochlorothiazide 25 MG TAKE ONE TABLET 02/25/2012 04/03/2012 tablet BY MOUTH ONE TIME DAILY documented as of this encounter Care Teams Webmethods Consultant Relationship Specialty Start Date End Date Deirdre Bedolla MD PCP - General Family Medicine 11/28/11 6/29/[address] [place] [address] documented as of this encounter
--- OUTSIDE RECORDS SUMMARY | 2022-06-07 21:02 | XMS_ITS | Encounter Summary ---
:1935 Author Organization [employer] Address [address] [address] Phone Care Team Providers Name Role Phone Deirdre Bedolla MD Primary Care Provider [phone] Encounter Details Date Type Department Care Team Description 09/28/2011 Orders Only [facility] Farhana Hurley, CIARRA w/o complication CLINIC FAMILY MEDICI NE PAYROLL AND BENEFITS COORDINATOR type II (HCC) (Primary [address]) [place] [address] Social History Tobacco Use Types Packs/Day Years Used Date Smoking Tobacco: Never Smokeless Tobacco: Never Alcohol Use Standard Drinks/Week Comments No 0 (1 standard drink = 0.6 oz pure alcoho l) Sex Assigned at Date Recorded Not on file documented as of this encounter Plan of Treatment Not on filedocumented as of this encounter Results A1C([facility]) (10/02/2011 9:37 AM CDT) P athologist Signature A1C ([facility]) 5.9 4.0 - 6.0 [facility] Est Average 123 mg/dL [facility] Glucose LABORATORY Specimen Anatomical Collection Method Collection Time Receive d Time (Source) Location / / Volume Laterality 10/02/2011 9:37 AM 2 9:37 CDT AM CDT Deirdre Bedolla MD EC CHEMISTRY ORDERABLES A BN Performing Organization Address City/State/ZIP Code Phon e Number [facility] documented in this encounter Visit Diagnoses Diagnosis Type II or unspecified type diabetes cindy litus without mention of complication, not stated as uncontrolled - Primary documented in this encounter Care Teams Autism Specialist Relationship Specialty Start Date End Date Deirdre eBdolla MD PCP - General Family Medicine 06/04/11 01/03/[address] [id number] documented as of this encounter
--- OUTSIDE RECORDS SUMMARY | 2022-06-07 21:02 | XMS_ITS | Encounter Summary ---
:1935 Author Organization [employer] Address [address] [place] [address] Phone Care Team Providers Name Role Phone Deirdre Bedolla MD Primary Care Provider [phone] Encounter Details Date Type Department Care Team Description 07/10/2011 Office Visit [facility] Raman Wilkins, PT Other physical therapy (Primary Dx); Center Service Center Manager - [address] [facility] isorders of bursae and tendons in shoulder region, unspecified; [facility] [place] Shoulder pain [address] [place], [place] [id number] [place] [address] Social History Tobacco Use Types Packs/Day Years Used Date Smoking Tobacco: Never Smokeless Tobacco: Never Alcohol Use Standard Drinks/Week Comments No 0 (1 standard drink = 0.6 oz pure alcoho l) Sex Assigned at Date Recorded Not on file documented as of this encounter Progress Notes Raman Wilkins, PT - 07/10/2011 12:16 PM CST PROGRESS NOTE FOR Simon Castillo Subjective report: Patient reports that he is now up to one pound for his exercises and that he is also using his theraband level 1 tube with no complaints for his scapular retraction and that he wouldlike to increase his resistance with this Pain ratin/10 Functional status: Patient is out [...] doing too much at home and he now able to get back to his level 1 therabands for retraction Objective findings: For involved / shoulder active [...] progress back to the level 1 theraband instead of the tube and he also does work with rhythmic stabilizations with arm at side and elbow and 90 degrees and also while insupine position and shoulder at 90 degrees flexion. With very very gentle scapular retraction being [...] time: 60 minutes Provider: Raman Wilkins PT AD DRAWER documented in this encounter Plan of Treatment Not on filedocumented as of this encounter Procedures Procedure Name Priority Date/Time Associated Diagnosis Comme nts MANUAL THER Routine 07/10/2011 12:16 PM Other physic al occupational therapy supervisor,1+REGIONS,EA 15 MIN THREAD DRAWER Disorders of bur matteo and tendons in shoulder region, unspecified Shoulder pain THERAPEUTIC EXERCISES Routine 07/10/2011 12:16 PM Other physical therapy THREAD DRAWER Disorders of bursae and tendons in shoulder region, unspecified Shoulder pain ULTRASOUND THERAPY Routine 07/10/2011 12:16 PM Other phy sical therapy THREAD DRAWER Disorders of bursae and tendons in shoulder region, unspecified Shoulder pain documented in this encounter Visit Diagnoses Diagnosis Other physical therapy - Primary Disorders of bursae and tendons in shoul brittnee region, unspecified Shoulder pain Pain in joint, shoulder region documented in this encounter Orders Procedures Count Last Ordered Date First Ordered Date MANUAL THER TECH,1+REGIONS,EA 15 MIN 1 07/10/2011 THERAPEUTIC EXERCISES 1 07/10/2011 ULTRASOUND THERAPY 1 07/10/2011 documented in this encounter Care Teams Welder Shielded Metal Arc Relationship Specialty Start Date End Date Deirdre Bedolla MD PCP - General Family Medicine 06/04/11 01/03/17[address] [address] documented as of this encounter
--- OUTSIDE RECORDS SUMMARY | 2022-06-07 21:02 | XMS_ITS | Encounter Summary ---
:1935 Author Organization [employer] Address [address] [address] Phone Care Team Providers Name Role Phone Deirdre Bedolla MD Primary Care Provider [phone] Encounter Details Date Type Department Care Team Description 04/07/2012 Notes [facility] Raman Wilkins, PT Order Desk Caller - [facility] [address] [place] [address] [place] [address] Social History Tobacco Use Types Packs/Day Years Used Date Smoking Tobacco: Never Smokeless Tobacco: Never Alcohol Use Standard Drinks/Week Comments No 0 (1 standard drink = 0.6 oz pure alcoho l) Sex Assigned at Date Recorded Not on file documented as of this encounter Plan of Treatment Not on filedocumented as of this encounter Visit Diagnoses Diagnosis Other physical therapy Disorder of bursae and tendons in should er region Disorders of bursae and tendons in shoul brittnee region, unspecified Shoulder pain Pain in joint, shoulder region documented in this encounter Care Teams Wireless Sales Associate Relationship Specialty Start Date End Date Deirdre Bedolla MD PCP - General Family Medicine 06/04/11 01/03/17[address] [place] [address] documented as of this encounter
--- OUTSIDE RECORDS SUMMARY | 2022-06-07 21:02 | XMS_ITS | Encounter Summary ---
:1935 Author Organization [employer] Address [address] [place] [address] Phone Care Team Providers Name Role Phone Deirdre Bedolla MD Primary Care Provider [phone] Encounter Details Date Type Department Care Team Description 07/17/2011 Office Visit [facility] Raman Wilkins, PT Other physical therapy (Primary Dx); Center Co Founder - [address] D isorders of bursae and tendons in shoulder region, unspecified; Rehab Out[facility] [place] Shoulder pain [address] [place] [place] [address] [address] [place] [address] Social History Tobacco Use Types Packs/Day Years Used Date Smoking Tobacco: Never Smokeless Tobacco: Never Alcohol Use Standard Drinks/Week Comments No 0 (1 standard drink = 0.6 oz pure alcoho l) Sex Assigned at Date Recorded Not on file documented as of this encounter Progress Notes Raman Wilkins, PT - 07/17/2011 12:19 PM CST PROGRESS NOTE FOR Simon Castillo Subjective report: Patient reports that he has already done his resistance exercises this am before his PT session and that he has been having some discomfort with his shoulder over the front of it andthat he will be having an MRI of his left shoulder because of issues he is having with pain and also because of the growth that he has with it which is growing Pain ratin/10 Functional status: Patient is out [...] scapula of both left and right sides. He does have some discomfort noted over the anterior aspect of his shoulder into the lesser tuberosity at this time Treatment today: 1.Skilled ultrasound is done with [...] already done his exercises before coming into PThe does not do them resistance so that [...] time: 60 minutes Provider: Raman Wilkins PT ESPONDENCE DICTATOR documented in this encounter Plan of Treatment Not on filedocumented as of this encounter Procedures Procedure Name Priority Date/Time Associated Diagnosis Comme nts MANUAL THER Routine 07/17/2011 12:18 PM Other physic al radiation therapy technician,1+REGIONS,EA 15 MIN CORRESPONDENCE DICTATOR Disorders of bur matteo and tendons in shoulder region, unspecified Shoulder pain THERAPEUTIC EXERCISES Routine 07/17/2011 12:18 PM Other physical therapy CORRESPONDENCE DICTATOR Disorders of bursae and tendons in shoulder region, unspecified Shoulder pain ULTRASOUND THERAPY Routine 07/17/2011 12:18 PM Other phy sical therapy CORRESPONDENCE DICTATOR Disorders of bursae and tendons in shoulder region, unspecified Shoulder pain documented in this encounter Visit Diagnoses Diagnosis Other physical therapy - Primary Disorders of bursae and tendons in shoul brittnee region, unspecified Shoulder pain Pain in joint, shoulder region documented in this encounter Orders Procedures Count Last Ordered Date First Ordered Date MANUAL THER TECH,1+REGIONS,EA 15 MIN 1 07/17/2011 THERAPEUTIC EXERCISES 1 07/17/2011 ULTRASOUND THERAPY 1 07/17/2011 documented in this encounter Care Teams Linen Room Houseperson Relationship Specialty Start Date End Date Deirdre Bedolla MD PCP - General Family Medicine 06/04/11 01/03/17[address] [address] documented as of this encounter
--- OUTSIDE RECORDS SUMMARY | 2022-06-07 21:02 | XMS_ITS | Encounter Summary ---
:1935 Author Organization [employer] Address [address] [place] [address] Phone Care Team Providers Name Role Phone Deirdre Bedolla MD Primary Care Provider [phone] Encounter Details Date Type Department Care Team Description 06/20/2011 Office Visit [facility] Raman Wilkins, PT Other physical therapy (Primary Dx); Center Laborer [place] - [address] [facility] [facility] [address] D isorders of bursae and tendons in shoulder region, unspecified; Rehab Out[facility] [place] Shoulder pain [address] [place] [place] [address] [address] [place] [address] Social History Tobacco Use Types Packs/Day Years Used Date Smoking Tobacco: Never Smokeless Tobacco: Never Alcohol Use Standard Drinks/Week Comments No 0 (1 standard drink = 0.6 oz pure alcoho l) Sex Assigned at Date Recorded Not on file documented as of this encounter Progress Notes Raman Wilkins, PT - 06/20/2011 11:47 AM CST PROGRESS NOTE FOR Simon Castillo Subjective report: Patient reports that he still has some issues when he first gets up in the morning and that he still needs to be careful because he finds that he is laying on his shoulder when he wakes up because he is a restless sleeper Pain ratin/10 Functional status: Patient is out of his brace and is eating with his hand and is dressing with lessdifficulty he is in the active phase of his rehab and needs to be careful and since his last check with physician he is now doing active rom and he has been able to progress to 8-12 ounces for his supine rtc program and is in no way ready to be lifting a gallon of milk yet but he is lifting a 1/2 gallon of milk Compliance with home program: Patient continues to have good home compliance of exercises but he is overdoing his activities at home and this will lead to more problems with pain and with loss of motion if he is not careful Objective findings: For involved / shoulder active asst flexion is 150 degrees, active flexion is 150 degrees and ER is 50 degrees with all with no significant discomfort. Visual inspection of incisionshows no redness or drainage and is healing favorably. Palpation does display some tightness into the upper trap and into the levator scapula Treatment today: 1.Skilled ultrasound is done with patient in sitting position with ultrasound done to the upper trap, levator , posterior cuff and into the distal deltoid being careful to stay away from subacromial space and surgical incision site with one sayda hertz sound head at .8 w/cm2 x 8 minutes with continous setting with no pain [...] with emphasis on flexion and he achieves 150 degrees of passive flexion and his er is 40 degrees and he is able to also work with table top slides, and supine asst flexion and also has his helping with the rom. With numerous verbal cues to relax and [...] a very very gentle level and he also progressed to 12 ounces for his scapular stabilization exercises at a gentle level with no pain with numerous verbal cues to be careful and that his shoulder is very weak and he also does progress to theraband isotonics working with scapular retraction with no pain 4.Ice pack is given post treatment x 10 minutes to decrease swelling, decrease post inflammatory soreness Response to treatment: Good with no signicant increase of pain noted and he is now able to progress to standing exercises and he is able to progress to 12 ounces for strengthening program Communication/education: Emphasis has been made to protect repair by avoiding active lifting, avoiding reaching, avoiding significant hand behind back activities, and to make sure that exercises are done with minimal to no pain. Again significant verbal cues are given that he be careful with his at home activities Plan: Will continue with PT and he will also be having a check of the growth on his shoulder and he progressed to 8 ounces for exercises and he was also able to progress to theraband isotonics for scapular retraction and we will continue to put emphasis on being careful with progressions and he will also try to not lay on his shoulder when sleeping. Is patient achieving their goals following the [...] is also now able to progress to light resistance ie 12 ounces and he is also able to theraband isotonics for scapular stabilization ie retraction Total treatment time: 60 minutes Provider: Raman Wilkins PT MOSTAT MACHINE TENDER documented in this encounter Plan of Treatment Not on filedocumented as of this encounter Procedures Procedure Name Priority Date/Time Associated Diagnosis Comme nts MANUAL THER Routine 06/20/2011 11:46 AM Other physic al impression printer,1+REGIONS,EA 15 MIN THERMOSTAT MACHINE TENDER Disorders of bur matteo and tendons in shoulder region, unspecified Shoulder pain THERAPEUTIC EXERCISES Routine 06/20/2011 11:46 AM Other physical therapy THERMOSTAT MACHINE TENDER Disorders of bursae and tendons in shoulder region, unspecified Shoulder pain ULTRASOUND THERAPY Routine 06/20/2011 11:46 AM Other phy sical therapy THERMOSTAT MACHINE TENDER Disorders of bursae and tendons in shoulder region, unspecified Shoulder pain documented in this encounter Visit Diagnoses Diagnosis Other physical therapy - Primary Disorders of bursae and tendons in shoul brittnee region, unspecified Shoulder pain Pain in joint, shoulder region documented in this encounter Orders Procedures Count Last Ordered Date First Ordered Date MANUAL THER TECH,1+REGIONS,EA 15 MIN 1 06/20/2011 THERAPEUTIC EXERCISES 1 06/20/2011 ULTRASOUND THERAPY 1 06/20/2011 documented in this encounter Care Teams Pe Teacher Relationship Specialty Start Date End Date Deirdre Bedolla MD PCP - General Family Medicine 06/04/11 01/03/17[address] [address] documented as of this encounter
--- OUTSIDE RECORDS SUMMARY | 2022-06-07 21:02 | XMS_ITS | Encounter Summary ---
:1935 Author Organization [employer] Address [address] [address] Phone Care Team Providers Name Role Phone Deirdre Bedolla MD Primary Care Provider [phone] Reason for Visit Reason Comments Other prior auth for metformin sen t Encounter Details Date Type Department Care Team Description 08/07/2011 Notes [facility] Danna Cervantes , Other (prior auth for GI PHOTO OFFSET PRINTER metformin sent) 2023 [facility] [place], [place] [id number] Social History Tobacco Use Types Packs/Day Years Used Date Smoking Tobacco: Never Smokeless Tobacco: Never Alcohol Use Standard Drinks/Week Comments No 0 (1 standard drink = 0.6 oz pure alcoho l) Sex Assigned at Date Recorded Not on file documented as of this encounter Progress Notes Danna Cervantes LPN - 08/07/2011 9:00 AM CST Prior auth for metformin sent to [facility]. Dx Diabetes. Patient on medication. E COORDINATOR documented in this encounter Plan of Treatment Not on filedocumented as of this encounter Visit Diagnoses Not on filedocumented in this encounter Care Teams Embalmer/Funeral Director Relationship Specialty Start Date End Date Deirdre Bedolla MD PCP - General Family Medicine 06/04/11 01/03/[address] [place], [place] [address] documented as of this encounter
--- OUTSIDE RECORDS SUMMARY | 2022-06-07 21:02 | XMS_ITS | Encounter Summary ---
:1935 Author Organization [facility] Address [address] [address] Phone Care Team Providers Name Role Phone Deirdre Bedolla MD Primary Care Provider [phone] Reason for Visit Reason Comments Refill Request Encounter Details Date Type Department Care Team Description 08/05/2011 Refill [facility] Yoel Ortega MD Refill Request FAMILY MEDICINE [id number] [facility] 2023 [facility] [place] [address] [place] [address] [phone] Social History Tobacco Use Types Packs/Day Years Used Date Smoking Tobacco: Never Smokeless Tobacco: Never Alcohol Use Standard Drinks/Week Comments No 0 (1 standard drink = 0.6 oz pure alcoho l) Sex Assigned at Date Recorded Not on file documented as of this encounter Ordered Prescriptions Prescription Sig Dispensed Refills Start Date End Date simvastatin (ZOCOR) 40 MG TAKE ONE TABLET BY 90 Tab 2 06/23/2012 tablet MOUTH ONE TIME DAILY IN THE P.M. documented in this encounter Plan of Treatment Not on filedocumented as of this encounter Visit Diagnoses Not on filedocumented in this encounter Care Teams Commercial Roofer Relationship Specialty Start Date End Date Deirdre Bedolla MD PCP - General Family Medicine 06/04/11 01/03/[address] [place] [address] documented as of this encounter
--- OUTSIDE RECORDS SUMMARY | 2022-06-07 21:02 | XMS_ITS | Encounter Summary ---
:1935 Author Organization [facility] Address [address] [address] Phone Care Team Providers Name Role Phone Deirdre Bedolla MD Primary Care Provider [phone] Encounter Details Date Type Department Care Team Description 07/24/2011 Orders Only [facility] [facility] Landon Bedolla on refill CLINIC FAMILY Deirdre Mosher MD (Primary Dx) MEDICINE 2023 [place] [address] [place] [address] [phone] Social History Tobacco Use Types Packs/Day Years Used Date Smoking Tobacco: Never Smokeless Tobacco: Never Alcohol Use Standard Drinks/Week Comments No 0 (1 standard drink = 0.6 oz pure alcoho l) Sex Assigned at Date Recorded Not on file documented as of this encounter Ordered Prescriptions Prescription Sig Dispensed Refills Start Date End Date tadalafil (CIALIS) 10 MG Take 1 Tab by mouth 15 Tab 11 06/23/2012 tablet as needed for Erectile dysfunction. documented in this encounter Plan of Treatment Not on filedocumented as of this encounter Visit Diagnoses Diagnosis Medication refill - Primary Issue of repeat prescriptions documented in this encounter Discontinued Medications Medication Sig Discontinue Reason Start Date End Date vardenafil (LEVITRA) TAKE 1 OR 2 TABLETS 1 Changed to an 05/09/2011 07/24/2011 10 MG tablet HOUR PRIOR TO alternate therapy INTERCOURSE vardenafil (LEVITRA) TAKE 1 OR 2 TABLETS 1 Changed to an 05/09/2011 07/24/2011 10 MG tablet HOUR PRIOR TO alternate therapy INTERCOURSE documented as of this encounter Care Teams Purchase Request Editor Relationship Specialty Start Date End Date Deirdre Bedolla MD PCP - General Family Medicine 06/04/11 01/03/[address] [address] documented as of this encounter
--- OUTSIDE RECORDS SUMMARY | 2022-06-07 21:02 | XMS_ITS | Encounter Summary ---
:1935 Author Organization [facility] Address [address] [address] Phone Care Team Providers Name Role Phone Deirdre Bedolla MD Primary Care Provider [phone] Reason for Visit Reason Onset Date Comments Refill Request 04/28/2012 Encounter Details Date Type Department Care Team Description 04/28/2012 Refill [facility] HurleyJerry LPN Refill Request MEDICINE 2023 [place], [place] [address] Social History Tobacco Use Types Packs/Day Years Used Date Smoking Tobacco: Never Smokeless Tobacco: Never Alcohol Use Standard Drinks/Week Comments No 0 (1 standard drink = 0.6 oz pure alcoho l) Sex Assigned at Date Recorded Not on file documented as of this encounter Ordered Prescriptions Prescription Sig Dispensed Refills Start Date End Date omeprazole (PRILOSEC) 40 Take 1 Cap by mouth 90 Cap 3 10/10/2012 MG capsule one time a day. Take before meals. Do not crush. documented in this encounter Plan of Treatment Not on filedocumented as of this encounter Visit Diagnoses Not on filedocumented in this encounter Discontinued Medications Medication Sig Discontinue Reason Start Date End Date omeprazole (PRILOSEC) 20 TAKE ONE CAPSULE BY Adjustment of dose 04/28/2012 MG capsule MOUTH TWICE DAILY documented as of this encounter Care Teams Car Escort Relationship Specialty Start Date End Date Deirdre Bedolla MD PCP - General Family Medicine 06/04/11 01/03/[address] [address] documented as of this encounter
--- OUTSIDE RECORDS SUMMARY | 2022-06-07 21:02 | XMS_ITS | Encounter Summary ---
:1935 Author Organization [facility] Address [address] [place] [address] Phone Care Team Providers Name Role Phone Deirdre Bedolla MD Primary Care Provider [phone] Encounter Details Date Type Department Care Team Description 06/26/2011 Office Visit [facility] Raman Wilkins, PT Other physical therapy (Primary Dx); Center Dx Board Operator - [address] isorders of bursae and tendons in shoulder region, unspecified; Rehab Out[facility] [place] Shoulder pain [address] [place] [place] [address] [address] [place] [address] Social History Tobacco Use Types Packs/Day Years Used Date Smoking Tobacco: Never Smokeless Tobacco: Never Alcohol Use Standard Drinks/Week Comments No 0 (1 standard drink = 0.6 oz pure alcoho l) Sex Assigned at Date Recorded Not on file documented as of this encounter Progress Notes Raman Wilkins, PT - 06/26/2011 11:52 AM CST PROGRESS NOTE FOR Simon Castillo Subjective report: Patient reports that his shoulder is better since he has been easing up with his theraband exercises and his shoulder pain is less since this and that he still needs to be careful with his shoulder so that he does not overdo it Pain ratin/10 Functional status: Patient is out of his brace and is eating with his hand and is dressing with lessdifficulty he is in the active phase of his rehab and needs to be careful and since his last check with physician he is now doing active rom and due to shoulder and arm discomfort he did decrease to 6 ounces for exercises because of the discomfort he was having Compliance with home program: Patient continues to [...] a very very gentle level and he Is decerased to 6 ouncess for his scapular stabilization exercises at a gentle level with no pain with numerous verbal cues to be careful and that his shoulder is very weak and he is instructed to HOLD with the theraband isotonics at this time 4.Ice pack is given post treatment x 10 minutes to decrease swelling, decrease post inflammatory soreness Response to treatment: Good with no signicant increase of pain noted and he is now able to progress to standing exercises but he did have to hold with therabands and also to work with 6 ounces Communication/education: Emphasis has been made to protect [...] the growth on his shoulder and he decreased to 6 ounces for exercises and have him hold with theraband isotonics and avoid laying on his shoulder Is patient achieving their goals following the [...] able to progress to light resistance ie 6 ounces Total treatment time: 60 minutes Provider: Raman Wilkins PT N OILSEED OR PASTURE GROWER documented in this encounter Plan of Treatment Not on filedocumented as of this encounter Procedures Procedure Name Priority Date/Time Associated Diagnosis Comme nts MANUAL THER Routine 06/26/2011 11:52 AM Other physic al occupational therapy co director,1+REGIONS,EA 15 MIN GRAIN OILSEED OR PASTURE GROWER Disorders of bur matteo and tendons in shoulder region, unspecified Shoulder pain THERAPEUTIC EXERCISES Routine 06/26/2011 11:52 AM Other physical therapy GRAIN OILSEED OR PASTURE GROWER Disorders of bursae and tendons in shoulder region, unspecified Shoulder pain ULTRASOUND THERAPY Routine 06/26/2011 11:52 AM Other phy sical therapy GRAIN OILSEED OR PASTURE GROWER Disorders of bursae and tendons in shoulder region, unspecified Shoulder pain documented in this encounter Visit Diagnoses Diagnosis Other physical therapy - Primary Disorders of bursae and tendons in shoul brittnee region, unspecified Shoulder pain Pain in joint, shoulder region documented in this encounter Orders Procedures Count Last Ordered Date First Ordered Date MANUAL THER TECH,1+REGIONS,EA 15 MIN 1 06/26/2011 THERAPEUTIC EXERCISES 1 06/26/2011 ULTRASOUND THERAPY 1 06/26/2011 documented in this encounter Care Teams Collateral Specialist Relationship Specialty Start Date End Date Deirdre Bedolla MD PCP - General Family Medicine 06/04/11 01/03/[address] [address] documented as of this encounter
--- OUTSIDE RECORDS SUMMARY | 2022-06-07 21:02 | XMS_ITS | Encounter Summary ---
:1935 Author Organization [facility] [facility] Address [address] [address] Phone Care Team Providers Name Role Phone Deirdre Bedolla MD Primary Care Provider [phone] Reason for Visit Reason Comments Toenail toenail trimming Encounter Details Date Type Department Care Team Description 07/16/2011 Office Visit [facility] Will Kate, Dermatop hytosis of nail; Clinic Podiatry Ingrowing nail 2023 [facility] [address] [address] [place], [place] [phone] [id number] Social History Tobacco Use Types Packs/Day Years Used Date Smoking Tobacco: Never Smokeless Tobacco: Never Alcohol Use Standard Drinks/Week Comments No 0 (1 standard drink = 0.6 oz pure alcoho l) Sex Assigned at Date Recorded Not on file documented as of this encounter Last Filed Vital Signs Vital Sign Reading Time Taken Comments Blood Pressure 118/72 07/16/2011 9:34 AM ELECTRICAL MAINTENANCE ENGINEER Pulse 72 07/16/2011 9:34 AM ELECTRICAL MAINTENANCE ENGINEER Temperature - - Respiratory Rate - - Oxygen Saturation - - Inhaled Oxygen Concentration - - Weight 111.1 kg (245 lb) 07/16/2011 9:34 AM ELECTRICAL MAINTENANCE ENGINEER Height 177.8 cm (5' 10) 07/16/2011 9:34 AM ELECTRICAL MAINTENANCE ENGINEER Body Mass Index 35.15 07/16/2011 9:34 AM ELECTRICAL MAINTENANCE ENGINEER documented in this encounter Progress Notes Will Kate Dpm - 07/16/2011 9:46 AM CST This note has been dictated. TRICAL MAINTENANCE ENGINEER documented in this encounter Plan of Treatment Not on filedocumented as of this encounter Visit Diagnoses Diagnosis Dermatophytosis of nail Ingrowing nail documented in this encounter Care Teams Mail Processor Relationship Specialty Start Date End Date Deirdre Bedolla MD PCP - General Family Medicine 06/04/11 01/03/[address] [address] documented as of this encounter
--- OUTSIDE RECORDS SUMMARY | 2022-06-07 21:02 | XMS_ITS | Encounter Summary ---
:1935 Author Organization [facility] Address [address] [address] Phone Care Team Providers Name Role Phone Deirdre Bedolla MD Primary Care Provider [phone] Reason for Visit Reason Onset Date Comments Refill Request 08/06/2011 Encounter Details Date Type Department Care Team Description 08/06/2011 Refill [facility] HurleyJerry LPN Refill Request MEDICINE 2023 [place], [place] [address] Social History Tobacco Use Types Packs/Day Years [...] on filedocumented in this encounter Care Teams Welder Production Line Arc Relationship Specialty Start Date End Date Deirdre Bedolla MD PCP - General Family Medicine 06/04/11 01/03/[address] [address] documented as of this encounter
--- OUTSIDE RECORDS SUMMARY | 2022-06-07 21:02 | XMS_ITS | Encounter Summary ---
:1935 Author Organization [facility] [facility] Address [address] [address] Phone Care Team Providers Name Role Phone Deirdre Bedolla MD Primary Care Provider [phone] Reason for Visit Reason Comments Other prior auth for metformin gra nted Encounter Details Date Type Department Care Team Description 08/15/2011 Notes [facility] Danna Cervantes , Other (prior auth for GI CONTRACT FORESTER metformin granted) 2023 [place], [place] [id number] Social History Tobacco Use Types Packs/Day Years Used Date Smoking Tobacco: Never Smokeless Tobacco: Never Alcohol Use Standard Drinks/Week Comments No 0 (1 standard drink = 0.6 oz pure alcoho l) Sex Assigned at Date Recorded Not on file documented as of this encounter Progress Notes Danna Cervantes LPN - 08/15/2011 9:06 AM CST Prior auth for metformin granted per [facility]. BRUSH OPERATOR documented in this encounter Plan of Treatment Not on filedocumented as of this encounter Visit Diagnoses Not on filedocumented in this encounter Care Teams Gift Consultant Relationship Specialty Start Date End Date Deirdre Bedolla MD PCP - General Family Medicine 06/04/11 01/03/17[address] [place], [place] [address] documented as of this encounter
--- OUTSIDE RECORDS SUMMARY | 2022-06-07 21:02 | XMS_ITS | Encounter Summary ---
:1935 Author Organization [facility] [facility] Address [address] [address] Phone Care Team Providers Name Role Phone Deirdre Bedolla MD Primary Care Provider [phone] Encounter Details Date Type Department Care Team Description 11/19/2011 Abstract [facility] FAMILY Abstract, Provider, MEDICINE 2023 [facility] [place] [id number] Social History Tobacco Use Types Packs/Day Years [...] Sig Discontinue Reason Start Date End Date lisinopril (PRINIVIL, 10, mg, ORAL, DAILY, Adjustment of dose 03/1111/19/2011 ZESTRIL) 20 MG tablet 0, 0, 03/11/07 0:29:56, Substitution Permitted, current med (Hx), Constant Indicator solifenacin Take 1 Tab by mouth Duplicate Medication 12/28/2010 11/19/2011 (VESICARE) 10 MG one time a day. tablet lisinopril (PRINIVIL, TAKE ONE TABLET BY Course of treatment 201111/19/2011 ZESTRIL) 10 MG tablet MOUTH ONE TIME DAILY completed LIPITOR 20 MG tablet 20, mg, ORAL, DAILY, Course of treatment 05/1211/19/2011 0, 0, 05/12/06 completed 3:24:26, Substitution Permitted, current med (Hx), Constant Indicator documented as of this encounter Care Teams Embalmer Apprentice Relationship Specialty Start Date End Date Deirdre Bedolla MD PCP - General Family Medicine 06/04/11 01/03/17[address] [address] documented as of this encounter
--- OUTSIDE RECORDS SUMMARY | 2022-06-07 21:02 | XMS_ITS | Encounter Summary ---
:1935 Author Organization [facility] [facility] Address [address] [place] [address] Phone Care Team Providers Name Role Phone Deirdre Bedolla MD Primary Care Provider [phone] Encounter Details Date Type Department Care Team Description 06/22/2011 Office Visit [facility] Raman Wilkins, PT Other physical therapy (Primary Dx); Center Kitchenhand - [address] D isorders of bursae and tendons in shoulder region, unspecified; Rehab Out[facility] [place] Shoulder pain [address] [place] [place] [address] [address] [place] [address] Social History Tobacco Use Types Packs/Day Years Used Date Smoking Tobacco: Never Smokeless Tobacco: Never Alcohol Use Standard Drinks/Week Comments No 0 (1 standard drink = 0.6 oz pure alcoho l) Sex Assigned at Date Recorded Not on file documented as of this encounter Progress Notes Raman Wilkins, PT - 06/22/2011 11:08 AM CST PROGRESS NOTE FOR Simon Castillo Subjective report: Patient reports that he has been having some discomfort with his arm and reports that he may have overdone the therabands and that he also has issues with his neck that may be causing some of his shoulder and arm issues Pain ratin/10 Functional status: Patient is out of his brace and is eating with his hand and is dressing with lessdifficulty he is in the active phase of his rehab and needs to be careful and since his last check with physician he is now doing active rom and due to shoulder and arm discomfort he did decrease to 8 ounces for exercises Compliance with home program: Patient continues to [...] gentle level and he Is decerased to 8 ouncess for his scapular stabilization exercises at [...] with therabands and also to work with 8 ounces instead of 12 ounces Communication/education: Emphasis has been made to [...] on his shoulder and he decreased to 8 ounces for exercises and he [...] able to progress to light resistance ie 8 ounces Total treatment time: 60 minutes Provider: Raman Wilkins PT SENIOR SOFTWARE ENGINEER JAVA documented in this encounter Plan of Treatment Not on filedocumented as of this encounter Procedures Procedure Name Priority Date/Time Associated Diagnosis Comme nts MANUAL THER Routine 06/22/2011 11:08 AM Other physic al sand operator,1+REGIONS,EA 15 MIN IT SENIOR SOFTWARE ENGINEER JAVA Disorders of bur matteo and tendons in shoulder region, unspecified Shoulder pain THERAPEUTIC EXERCISES Routine 06/22/2011 11:08 AM Other physical therapy IT SENIOR SOFTWARE ENGINEER JAVA Disorders of bursae and tendons in shoulder region, unspecified Shoulder pain ULTRASOUND THERAPY Routine 06/22/2011 11:08 AM Other phy sical therapy IT SENIOR SOFTWARE ENGINEER JAVA Disorders of bursae and tendons in shoulder region, unspecified Shoulder pain documented in this encounter Visit Diagnoses Diagnosis Other physical therapy - Primary Disorders of bursae and tendons in shoul brittnee region, unspecified Shoulder pain Pain in joint, shoulder region documented in this encounter Orders Procedures Count Last Ordered Date First Ordered Date MANUAL THER TECH,1+REGIONS,EA 15 MIN 1 06/22/2011 THERAPEUTIC EXERCISES 1 06/22/2011 ULTRASOUND THERAPY 1 06/22/2011 documented in this encounter Care Teams Water Filtration Technician Relationship Specialty Start Date End Date Deirdre Bedolla MD PCP - General Family Medicine 06/04/11 01/03/17[address] [address] documented as of this encounter
--- OUTSIDE RECORDS SUMMARY | 2022-06-07 21:02 | XMS_ITS | Encounter Summary ---
:1935 Author Organization [employer] [facility] Address [address] [address] Phone Care Team Providers Name Role Phone Deirdre Bedolla MD Primary Care Provider [phone] Reason for Visit Reason Comments Refill Request Encounter Details Date Type Department Care Team Description 02/25/2012 Refill [facility] Mabel Bedolla Refill Request FAMILY MEDICINE MD Nomi 2023 [facility] [address] [address] [place], [place] [address] (Wo rk) Social History Tobacco Use Types [...] MG TAKE ONE TABLET 90 Tab 0 02/2404/03/2012 tablet BY MOUTH ONE TIME DAILY documented in this encounter Plan of Treatment Not on filedocumented as of this encounter Visit Diagnoses Not on filedocumented in this encounter Discontinued Medications Medication Sig Discontinue Reason Start Date End Date hydrochlorothiazide 25 MG Take 1 Tab by 11/09/2010 0 02/25/2012 tablet mouth one time a day. documented as of this encounter Care Teams Message Clerk Relationship Specialty Start Date End Date Deirdre Bedolla MD PCP - General Family Medicine 06/04/11 01/03/17[address] [place] [address] documented as of this encounter
--- OUTSIDE RECORDS SUMMARY | 2022-06-07 21:02 | XMS_ITS | Encounter Summary ---
:1935 Author Organization [facility] Address [address] [place] [address] Phone Care Team Providers Name Role Phone Deirdre Bedolla MD Primary Care Provider [phone] Encounter Details Date Type Department Care Team Description 07/31/2011 Office Visit [facility] Raman Wilkins, PT Other physical therapy (Primary Dx); Center Senior Capital Markets Specialist - [address] D isorders of bursae and tendons in shoulder region, unspecified; Rehab Outpt [place] Shoulder pain [address] [place] [place] [address] [address] [place] [address] Social History Tobacco Use Types Packs/Day Years Used Date Smoking Tobacco: Never Smokeless Tobacco: Never Alcohol Use Standard Drinks/Week Comments No 0 (1 standard drink = 0.6 oz pure alcoho l) Sex Assigned at Date Recorded Not on file documented as of this encounter Progress Notes Raman Wilkins, PT - 07/31/2011 11:03 AM CST PROGRESS NOTE FOR Simon Castillo Subjective report: Patient reports that he did get an MRI of his left shoulder and that Dr. Duffy wants to see him for the results of this and that with his right shoulder he has been doing his exercises and that he still needs to be careful with certain reaching activities indicating that he is able to lift better with his elbow in a bent position instead of a straight position and that he also indicates that he is scheduled for PT until [place] goes [place] of the winter Pain ratin/10 Functional status: Patient is out of his brace and is eating with his hand and is dressing with lessdifficulty he is in the active phase of his rehab and needs to be careful and since his last check with physician he is now doing active rom and he is now able to lift 11/2 pounds for his exercises with no complaints Compliance [...] scapular retraction with extension to hip and he does work with 1 1/2 pounds for his exercises today with no complaints and he also does work with the theraband isotonics for his scapular retraction exercises 4.Ice pack is given post treatment x 10 minutes to decrease swelling, decrease post inflammatory soreness Response to treatment: Good with no signicant increase of pain noted and he is now able to progress to standing exercises but he did have to hold with therabands and also to work with 11/2 pounds for his exercise and he is able to get back to level 1 theraband for retraction with out problems so PT int ervention is still needed to help with rom and with strength and function ie lifting up to a gallon of milk with no complaints Communication/education: Emphasis has been made to protect repair by avoiding active lifting, avoiding reaching, avoiding significant hand behind back activities, and to make sure that exercises are done with minimal to no pain. Again significant verbal cues are given that he be careful with his at home activities. Plan: Will continue with PT with rom and strengthening and will decrease freq to one time / week forhis PT intervention and he will also be having an mri of his other shoulder to check the growth noted and also to check his rtc status. Patient will continue to work with PT [place] Is patient achieving their goals following the [...] is also now able to progress to 11/2 pounds and theraband with numerous verbal cues to be careful Total treatment time: 60 minutes Provider: Raman Wilkins PT HOUSEKEEPER documented in this encounter Plan of Treatment Not on filedocumented as of this encounter Procedures Procedure Name Priority Date/Time Associated Diagnosis Comme nts MANUAL THER Routine 07/31/2011 11:03 AM Other physic al therapy administrative assistant,1+REGIONS,EA 15 MIN HEAD HOUSEKEEPER Disorders of bur matteo and tendons in shoulder region, unspecified Shoulder pain THERAPEUTIC EXERCISES Routine 07/31/2011 11:03 AM Other physical therapy HEAD HOUSEKEEPER Disorders of bursae and tendons in shoulder region, unspecified Shoulder pain ULTRASOUND THERAPY Routine 07/31/2011 11:03 AM Other phy sical therapy HEAD HOUSEKEEPER Disorders of bursae and tendons in shoulder region, unspecified Shoulder pain documented in this encounter Visit Diagnoses Diagnosis Other physical therapy - Primary Disorders of bursae and tendons in shoul brittnee region, unspecified Shoulder pain Pain in joint, shoulder region documented in this encounter Orders Procedures Count Last Ordered Date First Ordered Date MANUAL THER TECH,1+REGIONS,EA 15 MIN 1 07/31/2011 THERAPEUTIC EXERCISES 1 07/31/2011 ULTRASOUND THERAPY 1 07/31/2011 documented in this encounter Care Teams Pin Feather Machine Operator Relationship Specialty Start Date End Date Deirdre Bedolla MD PCP - General Family Medicine 06/04/11 01/03/[address] [address] documented as of this encounter
--- OUTSIDE RECORDS SUMMARY | 2022-06-07 21:02 | XMS_ITS | Encounter Summary ---
:1935 Author Organization [employer] Address [address] [address] Phone Care Team Providers Name Role Phone eDirdre Bedolla MD Primary Care Provider [phone] Encounter Details Date Type Department Care Team Description 12/25/2011 Office Visit [facility] Shelli Meyer Encounte r for occupational therapy; Center Occupational OTR Aftercare following surgery of the [facility], [facility]; Therapy - Outpt [address] Finger stiffness [address] [place] [address] [id number] Social History Tobacco Use Types Packs/Day Years Used Date Smoking Tobacco: Never Smokeless Tobacco: Never Alcohol Use Standard Drinks/Week Comments No 0 (1 standard drink = 0.6 oz pure alcoho l) Sex Assigned at Date Recorded Not on file documented as of this encounter Progress Notes Shelli Meyer OTR - 02/21/2012 11:27 AM CDT Shelli Meyer OTR - 12/28/2011 4:23 PM CDT This note has been dictated. Provider: Shelli BORDEN, CHT, CLT documented in this encounter OR Notes OR Anesthesia - Shelli Meyer OTR - 12/29/2011 8:42 PM CDT [facility] Patient Name: SIMON CASTILLO Date of Service: 12/25/2011 : 1935 Age: 76Y Sex: M DC Site MRN: Patient Loc/Room #: BRSJOTOP/ Provider: Shelli Meyer, UMUR/Garcia, CHT, CLT, Occupational Therapy PHYSICAL THERAPY SITE: [facility] This patient is being referred to [facility] hand therapy clinic by Dr. 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 SUBJECTIVE: This 76-year-old male reports injury on 10/30/2011 when he fell down the stairs, fractured his right 4th metacarpal. He saw Dr. Haley wade at [facility]. He comes into the clinic still wearing a hand based full extension splint. OBJECTIVE: This patient is demonstrating active range of motion prior to treatment today - long finger MP 25/65, PIP 0/85, DIP 0/35. Ring finger MP 30/75, PIP 0/85, DIP 0/15. Small finger MP 0/85, PIP 0/80, DIP 0/40. The patient was started on active tendon gliding exercises of MP tabletops, hooked fist, full fist, and straight fist. The patient also received fluidotherapy at 112 degrees Fahrenheit for 15 minutes for tissue warming while performing his exercises. Post treatment he was able to demonstrate active range of motion of right long finger 15/55 at the MP, PIP 0/90, DIP 0/55. Ring finger MP15/70, PIP 0/100, DIP 0/40. Small finger MP 0/95, PIP 0/95, DIP 0/65. The patient was instructed to perform tendon gliding exercises as his home exercise program 6 times per day, 10 repetitions each, and to wean from his splint. ASSESSMENT: This patient is demonstrating stiffness following a right ring 4th metacarpal fracture with immobilization. PLAN: We will see this patient in hand therapy 2 times per week working on his range of motion for progression and strengthening. ELECTRONICALLY SIGNED SUHA Enrique/Garcia, CHT, CLT [facility] Occupational Therapy cc: /PM Job ID: [id number] /[id number] Document ID: [id number] documented in this encounter Plan of Treatment Not on filedocumented as of this encounter Procedures Procedure Name Priority Date/Time Associated Diagnosis Comme nts THERAPEUTIC EXERCISES Routine 12/28/2011 4:24 PM Encounter for CDT occupational the rapy Aftercare following surgery of the musculoskeletal system, NEC Finger stiffness PHYSICAL THERAPY Routine 12/28/2011 4:24 PM Encounter for TREATMENT CDT occupational the rapy [...] First Ordered Date PHYSICAL THERAPY TREATMENT 1 12/28/2011 THERAPEUTIC EXERCISES 1 12/28/2011 documented in this encounter Care Teams Casket Trimmer Relationship Specialty Start Date End Date Deirdre Bedolla MD PCP - General Family Medicine 06/04/11 01/03/[address] [address] documented as of this encounter
--- OUTSIDE RECORDS SUMMARY | 2022-06-07 21:02 | XMS_ITS | Encounter Summary ---
:1935 Author Organization [employer] Address [address] [address] Phone Care Team Providers Name Role Phone Deirdre Bedolla MD Primary Care Provider [phone] Reason for Visit Reason Comments Other Re: prior auth on Omeprazole Encounter Details Date Type Department Care Team Description 04/24/2012 Notes [facility] Danna Cervantes , Other (Re: prior auth on GI BRAND ACTIVATION MANAGER Omeprazole) 2023 [place], [place] [id number] Social History Tobacco Use Types Packs/Day Years Used Date Smoking Tobacco: Never Smokeless Tobacco: Never Alcohol Use Standard Drinks/Week Comments No 0 (1 standard drink = 0.6 oz pure alcoho l) Sex Assigned at Date Recorded Not on file documented as of this encounter Progress Notes Farhana Hurley LPN - 04/28/2012 9:37 AM CDT Contacted Pt. rx sent to [facility]. Danna Cervantes LPN - 04/24/2012 2:55 PM CDT Looks like patients insurance Bc/[employer] will cover Omeprazole once a day dosing. If Dr Cristobal can switchthe dose from 20mg bid to 40mg daily it will go thru his insurance. Info sent to Dr Cristobal. documented in this encounter Plan of Treatment Not on filedocumented as of this encounter Visit Diagnoses Not on filedocumented in this encounter Care Teams Casino Floorperson Relationship Specialty Start Date End Date Deirdre Bedolla MD PCP - General Family Medicine 06/04/11 01/03/[address] [address] documented as of this encounter
--- OUTSIDE RECORDS SUMMARY | 2022-06-07 21:02 | XMS_ITS | Encounter Summary ---
:1935 Author Organization [employer] Address [address] [place] [phone] Phone Care Team Providers Name Role Phone Deirdre Bedolla MD Primary Care Provider [phone] Encounter Details Date Type Department Care Team Description 08/07/[address] [facility] Raman Wilkins, PT Other physical therapy (Primary Dx); Center Fabric Inspector - [address] D isorders of bursae and tendons in shoulder region, unspecified; Rehab Outpt [facility] Shoulder pain [address] [place] [place] [address] [address] [place] [address] Social History Tobacco Use Types Packs/Day Years Used Date Smoking Tobacco: Never Smokeless Tobacco: Never Alcohol Use Standard Drinks/Week Comments No 0 (1 standard drink = 0.6 oz pure alcoho l) Sex Assigned at Date Recorded Not on file documented as of this encounter Progress Notes Raman Wilkins, PT - 08/07/2011 10:46 AM CST PROGRESS NOTE FOR Simon Castillo Subjective report: Patient reports that this is his last appt before he goes to [place] and that he is going to be gone for one month and will then contact PT to let us know how he is doing and that he is Now having more problems with his left shoulder and that he sees Dr. Duffy For recheck today of hisleft shoulder for a cortisone shot Pain ratin/10 Functional status: Patient is now lifting 2-3 pounds with no complaints Compliance with home program: Patient continues to have good home compliance with verbal cues to do exercise to point of fatigue and NOT PAIN Objective findings: For involved / shoulder active asst flexion is 155 degrees, active flexion is 155 degrees and ER is 55 degrees with [...] seated position with pillow under elbow x 23 minutes. 3.Therapeutic exercise is not done today because of time restrictions and he already has done his exercises prior to PT 4.Ice pack is given post treatment x 10 minutes to decrease swelling, decrease post inflammatory soreness Response to treatment: Good with no signicant increase of pain noted but he still needs to be careful Communication/education: Emphasis has been made to protect repair by avoiding active lifting, avoiding reaching, avoiding significant hand behind back activities, and to make sure that exercises are done with minimal to no pain. Again significant verbal cues are given that he be careful with his at home activities. Plan: Will have patient continue on his own with his exercises and he will contact the PT dept when he returns back from [place] to let us know how he is doing with his program Is patient achieving their goals following the [...] is also now able to progress to 2- 3 pounds and theraband with numerous verbal cues to be careful Total treatment time: 60 minutes Provider: Raman Wilkins PT SIVE MANAGER documented in this encounter Plan of Treatment Not on filedocumented as of this encounter Procedures Procedure Name Priority Date/Time Associated Diagnosis Comme nts MANUAL THER Routine 08/07/2011 10:46 AM Other physic al occupational therapy program director,1+REGIONS,EA 15 INVASIVE MANAGER Disorders of bursae MIN and tendons in shoulder region, unspecified Shoulder pain ULTRASOUND THERAPY Routine 08/07/2011 10:46 AM Other phy sical therapy INVASIVE MANAGER Disorders of bursae and tendons in shoulder region, unspecified Shoulder pain documented in this encounter Visit Diagnoses Diagnosis Other physical therapy - Primary Disorders of bursae and tendons in shoul brittnee region, unspecified Shoulder pain Pain in joint, shoulder region documented in this encounter Orders Procedures Count Last Ordered Date First Ordered Date MANUAL THER TECH,1+REGIONS,EA 15 MIN 1 08/07/2011 ULTRASOUND THERAPY 1 08/07/2011 documented in this encounter Care Teams Drum Sprayer Relationship Specialty Start Date End Date Deirdre Bedolla MD PCP - General Family Medicine 06/04/11 01/03/[address] [address] documented as of this encounter
--- OUTSIDE RECORDS SUMMARY | 2022-06-07 21:02 | XMS_ITS | Encounter Summary ---
:1935 Author Organization [employer] Address [address] [address] Phone Care Team Providers Name Role Phone Deirdre Bedolla MD Primary Care Provider Reason for Visit Reason Comments Refill Request Encounter Details Date Type Department Care Team Description 01/01/2012 Refill [facility] Mabel Bedolla Refill Request [facility] [address] [address] [place], [place] [id number] (Wo rk) Social History Tobacco Use Types Packs/Day Years Used Date Smoking Tobacco: Never Smokeless Tobacco: Never Alcohol Use Standard Drinks/Week Comments No 0 (1 standard drink = 0.6 oz pure alcoho l) Sex Assigned at Date Recorded Not on file documented as of this encounter Ordered Prescriptions Prescription Sig Dispensed Refills Start Date End Date metFORMIN (GLUCOPHAGE) TAKE ONE TABLETS BY 270 Tab 1 12/0712/10/2012 1000 MG tablet MOUTH IN THE MORNING AND TWO IN THE EVENING documented in this encounter Plan of Treatment Not on filedocumented as of this encounter Visit Diagnoses Not on filedocumented in this encounter Discontinued Medications Medication Sig Discontinue Reason Start Date End Date metFORMIN (GLUCOPHAGE) Take by mouth. 1 03/16/2011 0 01/01/2012 1000 MG tablet tab in am, 2 tabs in pm. documented as of this encounter Care Teams Bender Helper Relationship Specialty Start Date End Date Deirdre Bedolla MD PCP - General Family Medicine 06/04/11 01/03/[address] [address] documented as of this encounter
--- OUTSIDE RECORDS SUMMARY | 2022-06-07 21:03 | XMS_ITS | Encounter Summary ---
:1935 Author Organization [employer] Address [address] [place] [address] Phone Care Team Providers Name Role Phone Deirdre Bedolla MD Primary Care Provider [phone] Encounter Details Date Type Department Care Team Description 03/30/2011 Office Visit [facility] Raman Wilkins, PT Other physical therapy (Primary Dx); Center Child And Family Services Specialist - 3 [facility] nspecified disorders of bursae and tendons in shoulder region; Rehab Outpt [place] Shoulder pain 2016 [facility] [address] [place] [address] Social History Tobacco Use Types Packs/Day Years Used Date Smoking Tobacco: Never Smokeless Tobacco: Never Alcohol Use Standard Drinks/Week Comments No 0 (1 standard drink = 0.6 oz pure alcoho l) Sex Assigned at Date Recorded Not on file documented as of this encounter Progress Notes Raman Wilkins, PT - 04/23/2012 2:16 PM CDT Raman Wilkins, PT - 04/05/2011 4:35 PM CDT Patient Name: SIMON CASTILLO DC Site MRN: Page [address] [facility] Patient Name: SIMON CASTILLO Date of Service: 03/30/2011 : 1935 Age: 75Y Sex: M DC Site MRN: Patient Loc/Room #: BRSJPTOP/ Provider: Raman Wilkins PT, Physical Therapy OFFICE NOTE SITE: [facility] TIME IN: 10:00 TIME OUT: 11:00 PROBLEM; MEDICAL DIAGNOSIS: Right shoulder arthroscopy, open acromioplasty, open distal clavicle excision, open rotator cuff repair, open proximal biceps tenotomy; referred to physical therapy by Dr. Emory Duffy. SUBJECTIVE: HISTORY OF INJURY: This 75-year-old white male, whose primary language is Liberian, had been having ongoing complaints with his involved shoulder with regards to having problems with pain, weakness and he reports that he had sustained a fall, in which he missed the patio step and fell against the garage door jamb with his right shoulder and sustained his injury at that time. The patient reports that he did have subsequent testing done and it was found that he did have a tear and did have a repair done by Dr. Emory Duffy on 03/15/2011. It should be noted that with regards to his repair, he had aright shoulder arthroscopy, open acromioplasty, open distal clavicle excision, open rotator cuff repair, as well as an open proximal biceps tenotomy. Patient is in a BREG abduction brace at this time for protection. Patients is also present during this session today. CURRENT FUNCTIONAL LEVEL: Patient at this time is unable to do any type of ADLs with his right arm because his right arm is in a brace at this time and therefore he is using his left arm for his ADLs and therefore is unable to do any reaching activities, has difficulty with dressing, difficulty with sleeping activities. Patients pain fluctuates from a 2/10 to an 8/10 on a pain scale of 0-10. Patientspain increases with activity and decreases with medication. PRIOR FUNCTIONAL STATUS AND ACTIVITY LEVEL: Prior to patients surgery, he was able to do many of hisself-care tasks but he had pain with this. MEDICATIONS PRESENTLY TAKING: Daypro, Levitra, Vesicare, oxycodone, hydrochlorothiazide, aspirin, lisinopril, Atenolol, Lipitor. ALLERGIES TO MEDICATIONS: CODEINE. PAST MEDICAL HISTORY: Patient does have a past medical history in which he has had heart issues, which he did have a heart attack and he did have a stent placed in his heart. He also has had a past medical history in which he has had a broken neck. Patient reports that he broke his neck on 10/31/2007.Patient also does have diabetes which is being controlled at this time. SOCIAL HISTORY: The patient is retired and is a nonsmoker and lives with his at home. COGNITIVE AND COMMUNICATION STATUS: No impairments noted. PATIENTS GOALS: Pain reduction allowing for improvement in functional tasks and prevention of reoccurrence of problems. OBJECTIVE; CURRENT OBJECTIVE FINDINGS: Integumentary system - demonstrates the presence of a surgical scar, which is healing favorably at this time. Neurovascular system - demonstrates neurovascular structures intact. Neuromuscular system - does demonstrate balance, locomotion and transfers within functional limits. Musculoskeletal system - does have some impairment with tests and measurements indicated. Patient does have palpable pain along the subacromial space, as well as in the deltoid. He does have tightness into the upper trapezius/levator scapular area. He does have forward head and forward s houlder type of posture. Gross strength measurements are contraindicated, as well as other special tests due to his acute surgical status. He is also in a brace at this time for protection. Posture does reveal forward head and forward shoulder type of posture. TREATMENT TODAY: Consists of education as to what is occurring with the patients shoulder status andwhy he needs to be careful with his shoulder to protect his shoulder repair at this time. He does also then receive and work with an exercise, in which he does work with gentle range of motion of hand,wrist and elbow. He also does work with very gentle scapular retraction; he also does then work withvery gentle pendulum exercises. With pendulum exercises, he does these with no pain. He then is put in a supine position while in recliner and does achieve only approximately 40 degrees of supine passive flexion because he needs numerous verbal cues to relax with his shoulder because he tends to try to help too much with his activity. He also does then receive ice post treatment. Patients is also instructed numerous times that he needs to be careful with his overall repair routine. ASSESSMENT: Patient has impaired joint mobility, motor function, muscle performance and range of motion associated with bony or soft tissue surgery which lends to musculoskeletal practice pattern 4I. REHAB POTENTIAL: Good but may require extended time due to the nature of the injury, teaching patient safe home exercise program, as well as progressions and activity modifications. RATIONALE FOR SKILLED CARE: The patient will need skilled physical therapy intervention to help withhis overall progressions. SHORT TERM GOALS: 1. Maintain integrity of repair and minimize postop stiffness while protecting repair during early phase of healing. 2. Patient will wean off sling at 6 weeks postop to progress into the next phase of rehab. 3. In 6 weeks, patient will eat with involved arm with pain difficulty of 1/10 to 2/10. 4. In 4 weeks, patient will sleep through the night with pain difficulty of 1/10 to 2/10. 5. Patient will be able to wash hair with involved arm in 8 weeks with pain difficulty of 1/10 to 2/10. JEWEL BEARING POLISHER GOALS: 1. In 12 weeks, patient will be able to reach above shoulder height in order to put dishes and otherobjects on shelves with pain difficulty of 1/10 to 2/10. 2. In 12 weeks, patient will independently be able to manage home exercise program. 3. In 12 weeks, patient will be able to do household work activities with pain difficulty of 1/10 to2/10. PLAN: Patient will be seen for his postop rotator cuff repair routine in which he will be working with activities as per sports and orthopaedic specialist guidelines, [facility] and will also be receiving pain relieving modalities including ultrasound, manual therapy, as well as other soft tissue techniques, as necessary as per therapists discretion. He will be working with passive range of motion until he is at approximately 6 weeks postop and at that time,he will work with weaning off his sling and then progressing into more active assist to active rangeof motion activities. Patients program will be done at a gentle level and patient is in agreement with this plan of care. It should be noted that patient will be seeing physical therapy 1-2 times per week for up to 12 weeks depending on how the patients postop goals are doing and patient will also be working with a drafter geophysical under the supervision of a physical therapist. ELECTRONICALLY SIGNED Raman Wilkins PT [facility] Physical Therapy cc: /GEW Job ID: [id number] /tljts Document ID: [id number] Raman Wilkins, PT - 04/05/2011 12:35 PM CDT Patient Name: SIMON CASTILLO DC Site MRN: Page [address] [facility] Patient Name: SIMON CASTILLO Date of Service: 03/30/2011 : 1935 Age: 75Y Sex: M JORGE Site MRN: Patient Loc/Room #: BRSJPTOP/ Provider: Raman Wilkins PT, Physical Therapy OFFICE NOTE SITE: [facility] TIME IN: 10:00 TIME OUT: 11:00 PROBLEM; MEDICAL DIAGNOSIS: Right shoulder arthroscopy, open acromioplasty, open distal clavicle excision, open rotator cuff repair, open proximal biceps tenotomy referred to physical therapy by Dr. Emory Duffy. SUBJECTIVE: HISTORY OF INJURY: This 75-year-old white male, whose primary language is Liberian, had been having ongoing complaints with his involve shoulder with regards to having problems with pain, weakness, and he reports he had sustained a fall in which he missed a patio step and fell against the garage door jam with his right shoulder and sustained his injury at that time. The patient reports that he did have subsequent testing done and it was found that he did have a tear and did have a repair done by Dr. Emory Duffy on 03/15/2011. It should be noted that with regards to his repair, he had a right shoulder arthroscopy, open acromioplasty, open distal clavicle excision, open rotator cuff repair, as well as an open proximal biceps tenotomy. Patient is in a BREG abduction brace at this time for protection. Patients is also present during this session today. CURRENT FUNCTIONAL LEVEL: Patient at this time is unable to do any type of ADLs with his right arm because his right arm is in a brace at this time and therefore is using his left arm for his ADLs and therefore is unable to do any reaching activities, had difficulty with dressing, difficulty with sleeping activities. Patients pain fluctuates from a 2/10 to an 8/10 on a pain scale of 0-10. Patients pain increases with activity and decreases with medication. PRIOR FUNCTIONAL STATUS AND ACTIVITY LEVEL: Prior to patients surgery, he was able to do many of hisself care tasks but he had pain with this. MEDICATIONS PRESENTLY TAKING: Daypro, Levitra, Vesicare, oxycodone, hydrochlorothiazide, aspirin, lisinopril, , Lipitor. ALLERGIES TO MEDICATIONS: CODEINE. PAST MEDICAL HISTORY: Patient does have a past medical history in which he has had heart issues in which he did have a heart attack and he did have a stent placed in his heart. He also has had a past medical history in which he has had a broken neck. Patient reports that he broke his neck on 10/31/2007. Patient also does have diabetes which is being controlled at this time. SOCIAL HISTORY: The patient is retired and is a nonsmoker and lives with his at home. COGNITIVE AND COMMUNICATION STATUS: No impairments noted. PATIENTS GOALS: Pain reduction allowing for improvement in functional tasks and prevention of reoccurrence of problems. OBJECTIVE; CURRENT OBJECTIVE FINDINGS: INTEGUMENTARY SYSTEM: Demonstrates the presence of surgical scar, which is healing favorably at thistime. NEUROVASCULAR SYSTEM: Demonstrates neurovascular structures intact. NEUROMUSCULAR SYSTEM: Does demonstrate balance, locomotion, and transfers within functional limits. MUSCULOSKELETAL SYSTEM: Does have some impairments with tests and measurements indicated. Patient does have palpable pain along the subacromial space, as well as in the deltoid. He does havetightness into the upper trapezius levator scapular area. He does have forward head and forward shoulder type of posture. Gross strength measurements are contraindicated as well as other special tests due to his acute surgical status. He is also in a brace at this time for protection. Posture does reveal forward head and forward shoulder type of posture. TREATMENT TODAY: Consists of education as to what is occurring with the patients shoulder status andwhy he needs to be careful with his shoulder to protect his shoulder repair at this time. He does also then receive and work with an exercise in which he does work with range of motion of hand, wrist, and elbow. He also does work with very gentle scapular retraction; he also does then work with very gentle pendulum exercises. With pendulum exercises he does these with no pain. He then is put in a supine position while in recliner and does achieve only approximately 40 degrees of supine passive flexion because he needs numerous verbal cues to relax with his shoulder because he tends to try to help too much with his activity. He also does then receive ice post treatment. Patients is also instructed numerous times that he needs to be careful with his overall repair routine. ASSESSMENT: Patient has impaired joint mobility, motor function, muscle performance, and range of motion associated with bony or soft tissue surgery which lends to musculoskeletal practice pattern 4I. REHAB POTENTIAL: Good but may require extended time due to the nature of the injury, teaching patient safe home exercise program, as well as progressions and activity modifications. RATIONALE FOR SKILLED CARE: The patient will need skilled physical therapy intervention to help withhis overall progressions. SHORT TERM GOALS: 1. Maintain integrity of repair and minimize postop stiffness while protecting repair during early phase of healing. 2. Patient will wean off sling at 6 weeks postop to progress into the next phase of rehab. 3. In 6 weeks, patient will eat with involved arm with pain difficulty of 1/10 to 2/10. 4. In 4 weeks, patient will sleep through the night with pain difficulty of 1/10 to 2/10. 5. Patient will be able to wash hair with involved arm in 8 weeks with pain difficulty of 1/10 to 2/10. JEWEL BEARING POLISHER GOALS: 1. In 12 weeks, patient will be able to reach above shoulder height in order to put dishes and otherobjects on shelves with pain difficulty of 1/10 to 2/10. 2. In 12 weeks, patient will independently be able to manage home exercise program. 3. In 12 weeks, patient will be able to do household work activities with pain difficulty of 1/10 to2/10. PLAN: Patient will be seen for his postop rotator cuff repair routine in which he will be working with activities as per sports and orthopaedic specialist guidelines, as well as [facility] postop guidelines and will also be receiving pain relieving modalities including ultrasound, manual therapy, as well as other soft tissue techniques as necessary as per therapists discretion. He will be working with passive range of motion until he is at approximately 6 weeks postop and at that time he will work with weaning off his sling and then progressing into more active assist to active range of motion activities. Patients program will be done at a gentle level and patient is in agreement with this plan of care. It should be noted that patient will be seeing physical therapy 1-2 times per week for up to 12 weeks depending on how the patients postop goals are doing and patient will also be working with a drafter geophysical under the supervision of a physical therapist. ELECTRONICALLY SIGNED Raman Wilkins, PT [facility] Physical Therapy cc: /GEYao Job ID: [id number] /js Document ID: [id number] Raman Wilkins PT - 03/30/2011 12:35 PM CDT Initial note on Simon Castillo is dictated and treatment plan is typed by Raman Wilkins PT on 03/30/11 documented in this encounter Plan of Treatment Scheduled Orders Name Type Priority Associated Diagnoses Order S chedule PHYS THERAPY EVALUATION Procedures Routine Other ph ysical therapy Ordered: 03/30/2011 Unspecified disorders of bursae and tendons in shoulder kasia on Shoulder pain THERAPEUTIC EXERCISES Procedures Routine Other phys ical therapy Ordered: 03/30/2011 Unspecified disorders of bursae and tendons in shoulder kasia on Shoulder pain documented as of this encounter Visit Diagnoses Diagnosis Other physical therapy - Primary Disorders of bursae and tendons in shoul brittnee region, unspecified Shoulder pain Pain in joint, shoulder region documented in this encounter Care Teams Breakfast Attendant Relationship Specialty Start Date End Date Deirdre Bedolla MD PCP - General Family Medicine 03/30/11 04/30/112023 [address] [address] documented as of this encounter
--- OUTSIDE RECORDS SUMMARY | 2022-06-07 21:03 | XMS_ITS | Encounter Summary ---
:1935 Author Organization [email or web address] Address [address] [address] Phone Care Team Providers Name Role Phone Deirdre Bedolla MD Primary Care Provider [phone] Reason for Visit Reason Onset Date Comments Refill Request 03/07/2011 Encounter Details Date Type Department Care Team Description 03/07/2011 Refill [facility] HurleyJerry LPN Refill Request MEDICINE 2023 [place], [place] [address] Social History Tobacco Use Types Packs/Day Years [...] on filedocumented in this encounter Care Teams Ditch Digger Relationship Specialty Start Date End Date Deirdre Bedolla MD PCP - General Family Medicine 02/26/11 03/29/112023 [address] [id number] documented as of this encounter
--- OUTSIDE RECORDS SUMMARY | 2022-06-07 21:03 | XMS_ITS | Encounter Summary ---
:1935 Author Organization [employer] Address [address] [address] Phone Care Team Providers Name Role Phone Deirdre Bedolla MD Primary Care Provider [phone] Encounter Details Date Type Department Care Team Description 03/16/2011 Abstract [facility] FAM[facility] Abstract, Provider, MEDICINE [address] [facility] [place] [address] Social History Tobacco Use Types Packs/Day [...] Discontinue Reason Start Date End Date metFORMIN SR modified Take 1 Tab by mouth Therapy completed 011 03/16/2011 release (GLUMETZA) 1000 two times a day with MG (MOD) 24 hour tablet meals. Swallow tablet whole; do not crush, divide or chew. Take one tab in am and two tabs in pm. metFORMIN (GLUCOPHAGE) Take 1 Tab by mouth 12/29/2010 03/16/2011 1000 MG tablet two times a day (breakfast and supper). documented as of this encounter Historical Medications This list may reflect changes made after this encounter. Medication Sig Dispensed Refills Start Date End Date metFORMIN (GLUCOPHAGE) Take by mouth. 1 180 Tab 0 011 01/01/2012 1000 MG tablet tab in am, 2 tabs in pm. added in this encounter Care Teams Floor Sweeper Relationship Specialty Start Date End Date Deirdre Bedolla MD PCP - General Family Medicine 02/26/11 03/29/112023 [address] [address] documented as of this encounter
--- OUTSIDE RECORDS SUMMARY | 2022-06-07 21:03 | XMS_ITS | Encounter Summary ---
:1935 Author Organization [employer] Address [address] [place] [address] Phone Care Team Providers Name Role Phone Deirdre Bedolla MD Primary Care Provider [phone] Encounter Details Date Type Department Care Team Description 05/25/2011 Office Visit [facility] Raman Wilkins, PT Other physical therapy (Primary Dx); Center Decorator Hand - [address] [facility] [address] D isorders of bursae and tendons in shoulder region, unspecified; Rehab Outpt [place] Shoulder pain [address] [place] [place] [id number] [place] [id number] Social History Tobacco Use Types Packs/Day Years Used Date Smoking Tobacco: Never Smokeless Tobacco: Never Alcohol Use Standard Drinks/Week Comments No 0 (1 standard drink = 0.6 oz pure alcoho l) Sex Assigned at Date Recorded Not on file documented as of this encounter Progress Notes Raman Wilkins, PT - 05/25/2011 11:56 AM CST PROGRESS NOTE FOR Simon Castillo Subjective report: Patient reports that he will be seeing his physician for recheck next week and that he is pleased with his progress with his right shoulder and he has now been having discomfort to left shoulder Pain ratin/10 Functional status: Patient is out of his brace and is eating with his hand and is dressing with lessdifficulty but he is in the active asst phase of his rehab and needs to be careful Compliance with home program: Patient continues to have good home compliance of exercises and with following restrictions. Objective findings: For involved / shoulder active asst flexion is 150 degrees, active flexion is 140 degrees and ER is 50 degrees with [...] with emphasis on flexion and he achieves 120 degrees of passive flexion and his er is 10 degrees and he is able to also [...] hip for 20 minutes for his exercises 4.Ice pack is given post treatment x 10 minutes to decrease swelling, decrease post inflammatory soreness 5. Letter is typed and photographs are taken for physician recheck Response to treatment: Good with no signicant increase of pain noted and he is now able to progress to standing exercisess Communication/education: Emphasis has been made to protect repair by avoiding active lifting, avoiding reaching, avoiding significant hand behind back activities, to wear sling for protection when he is outside, and to make sure that exercises are done with minimal to no pain. Plan: Will have physician for recheck and if ok he will continue with PT and he will also have his left shoulder checked for lipoma and also due to pain issues he is having Is patient achieving their goals following the plan of care? YES because he has improved shoulder passive rom and now improved active asst rom, is using his brace for protection If needed when out in public, and is also having minimal pain with his shoulder at this time and he still need considerable verbal cues to not overdo. He is also doing better with being able to progress into the next phase ofhis rehab of progressing from supine to vertical position Total treatment time: 60 minutes Provider: Raman Wilkins PT RVISOR EXTRUSION documented in this encounter Plan of Treatment Not on filedocumented as of this encounter Procedures Procedure Name Priority Date/Time Associated Diagnosis Comme nts MANUAL THER Routine 05/25/2011 11:56 AM Other physic al mat weaver,1+REGIONS,EA 15 MIN SUPERVISOR EXTRUSION Disorders of bur matteo and tendons in shoulder region, unspecified Shoulder pain THERAPEUTIC EXERCISES Routine 05/25/2011 11:56 AM Other physical therapy SUPERVISOR EXTRUSION Disorders of bursae and tendons in shoulder region, unspecified Shoulder pain ULTRASOUND THERAPY Routine 05/25/2011 11:56 AM Other phy sical therapy SUPERVISOR EXTRUSION Disorders of bursae and tendons in shoulder region, unspecified Shoulder pain documented in this encounter Visit Diagnoses Diagnosis Other physical therapy - Primary Disorders of bursae and tendons in shoul brittnee region, unspecified Shoulder pain Pain in joint, shoulder region documented in this encounter Orders Procedures Count Last Ordered Date First Ordered Date MANUAL THER TECH,1+REGIONS,EA 15 MIN 1 05/25/2011 THERAPEUTIC EXERCISES 1 05/25/2011 ULTRASOUND THERAPY 1 05/25/2011 documented in this encounter Care Teams Experimental Physicist Relationship Specialty Start Date End Date Deirdre Bedolla MD PCP - General Family Medicine 05/01/11 06/03/112023 [address] [address] documented as of this encounter
--- OUTSIDE RECORDS SUMMARY | 2022-06-07 21:03 | XMS_ITS | Encounter Summary ---
:1935 Author Organization [employer] Address [address] [address] Phone Care Team Providers Name Role Phone Deirdre Bedolla MD Primary Care Provider [phone] Reason for Visit Auth/Cert - Closed Specialty Diagnoses / Procedures Referred By Contact Refer red To Contact Endoscopy Diagnoses 5 Year Follow Up Polyps [facility] Endoscopy [facility] Endoscopy Procedures COLONOSCOPY, DIAGNOSTIC- [address] [place] [address] [place] [address] [place] [address] Fax: Referral ID Status Reason Start Date Expiration Date Visits Requ ested Visits Authorized [id number] Closed 1 1 Encounter Details Date Type Department Care Team Description 01/31/2011 Hospital Encounter [facility] Simon Preciado MD Center Endoscopy [address] [place] [address] [place] [address] [phone] (Wo rk) Social History Tobacco Use Types Packs/Day Years Used Date Smoking Tobacco: Never Smokeless Tobacco: Never Alcohol Use Standard Drinks/Week Comments No 0 (1 standard drink = 0.6 oz pure alcoho l) Sex Assigned at Date Recorded Not on file documented as of this encounter Last Filed Vital Signs Vital Sign Reading Time Taken Comments Blood Pressure 114/75 01/31/2011 9:11 AM CDT Pulse 66 01/31/2011 9:11 AM CDT Temperature 36.7 ??C (98 ??F) 01/31/2011 7:36 AM CDT Respiratory Rate 14 01/31/2011 9:11 AM CDT Oxygen Saturation 95% 01/31/2011 9:11 AM CDT Inhaled Oxygen Concentration - - Weight 111.1 kg (245 lb) 01/31/2011 7:36 AM CDT Height 177.8 cm (5' 10) 01/31/2011 7:36 AM CDT Body Mass Index 35.15 01/31/2011 7:36 AM CDT documented in this encounter Discharge Instructions Discharge InstructionsSimon Preciado MD - 01/31/2011 8:26 AM CDT 1 benign appearing polyp(s) were removed at the time of your colonoscopy. They will be sent to the lab to confirm that they are benign and to determine when you should have your next colonoscopy. A anticipate a 5 year recheck. You will receive a letter from my office in approximately 7 days with these results. This information will be forwarded to your medical provider. Thank you for allowing me to participate in your care. Simon Preciado M.D. documented in this encounter Medications at Time of Discharge Medication Sig Dispensed Refills Start Date End Date ASPIRIN LOW DOSE 81 MG 81 mg 1 tablet, 81.000 0 08/05/19 10 tablet ORAL, DAILY, 08/05/09 14:22:55 documented as of this encounter Discharge Disposition Disposition Code Departure Means Destination Home and/or Self Senior Living documented in this encounter Progress Notes Simon Preciado MD - 02/01/2011 1:31 PM CDT Simon Preciado MD - 02/01/2011 1:30 PM CDT documented in this encounter Procedure Notes Simon Preciado MD - 02/02/2011 3:07 PM CDTAssociated Order(s): COLONOSCOPY; COLONOSCOPY [facility] Patient Name: SIMON CASTILLO Admission Date: 01/31/2011 : 1935 Age: 75Y Patient Location: [place] Dictating Provider: Simon Preciado M.D. COLONOSCOPY [facility] ADDENDUM: The rectal polyp was prolapse change only. Five-year surveillance given his history of adenomatous polyps. The patient will be notified of these results and recommendations via letter. Simon Preciado M.D./ junior CC: Deirdre Bedolla M.D. CDT/ Job ID: [id number] CDT/tlj Document ID: [id number] Simon Preciado MD - 01/31/2011 8:26 AM CDTAssociated Order(s): COLONOSCOPY; COLONOSCOPY [facility] Patient Name: SIMON CASTILLO Admission Date: 01/31/2011 : 1935 Age: 75Y Patient Location: [place] Dictating Provider: Simon Preciado M.D. COLONOSCOPY [facility] DATE: January 31, 2011 PRIMARY CARE PHYSICIAN: Deirdre Bedolla MD INDICATION FOR PROCEDURE: Mr. Castillo is a 75-year-old male presenting for 5 year surveillance colonoscopy for history of adenomatous polyps. The risks and benefits of the procedure including risk of perforation, bleeding, and missed lesions were discussed with the patient. Informed consent was obtained. After a brief cardiopulmonary physical examination, the patient was found to be an acceptable candidate for conscious sedation. He is an ASA class III. DESCRIPTION OF PROCEDURE: The patient was placed in the left lateral decubitus position. He receivedfentanyl 100 mcg and Versed 5 mg IV in a titrated fashion. Rectal examination was unremarkable. The Olympus adult variable stiffness colonoscope was inserted through the anus and advanced through the colon under direct vision to the cecum, as identified by the ileocecal valve and appendiceal orifice. The quality of the prep was good to excellent. The entire colon was carefully examined including the proximal aspect of the colonic folds, around the flexured areas, and on retroflexed view in the rectum. FINDINGS: A large number of diverticula were noted throughout the sigmoid colon. A single 3 mm sessile polyp was identified in the distal rectum on retroflex view. Polypectomy was performed with the cold polypectomy snare. The lesion was completely resected and retrieved. The remainder of the colon was otherwise normal. IMPRESSION: 1. Small rectal polyp, resected and retrieved. 2. Severe sigmoid diverticulosis. RECOMMENDATION: Check pathology of resected polyp. Barring any advanced histology, a 5-year surveillance interval would be appropriate, given his history. POST-CONSCIOUS SEDATION/ANESTHESIA NOTE: The patient was monitored post IV conscious sedation with continuous EKG and pulse monitoring as well as periodic blood pressure monitoring. Upon the patient regaining an alert level of sustained consciousness and the continuous O2 saturation and blood pressure monitoring confirming recovery from the anesthetic effect of the intravenous medications, the patient was discharged in the care of an adult attendant. Guidelines for immediate medical attention post procedure were given to the patient in a verbal and written format. Simon Preciado M.D./ lsa CC: Deirdre Bedolla M.D. CDT/ Job ID: [id number] CDT/lsa Document ID: [id number] documented in this encounter Plan of Treatment Pending Results Name Type Priority Associated Diagnoses Date/Ti me PATHOLOGY SPEC Pathology 01/31/2011 8: 22 AM CDT documented as of this encounter Procedures Procedure Name Priority Date/Time Associated Comments Diagnosis PATHOLOGY SPEC 01/31/2011 8:22 AM Results for this CDT procedure are i n the results section. PATHOLOGY SPEC 01/31/2011 8:22 AM CDT COLONOSCOPY 01/31/2011 8:01 AM 5 Year Follow Up DIAGNOSTIC CDT Polyps Case Notes PCP Dr Cristobal COLONOSCOPY 01/31/2011 7:18 AM CDT Resul ts for this procedure are in the results section. COLONOSCOPY 01/31/2011 7:18 AM CDT Resul ts for this procedure are in the results section. documented in this encounter Results PATHOLOGY SPEC (01/31/2011 8:22 AM CDT) Component Value Ref Test Analysis Performed At [facility] Range Method Time Signature PATHOLOGY SPECIMEN SOURCE [facility] SPEC RECTAL POLYP LABORATORY CLINICAL INFORMATION 5 YR FOLLOW UP POLYPS MACROSCOPIC The specimen is received in a single properly labeled contai ner with two unique patient identifiers and designated rectal polyp . ??It consists of an aggregate of soft lomas mucosal tissue measurin g -5 x 3 x 2 mm. ??All tissue is submitted in one cassette. ?JRD/RM A MICROSCOPIC Microscopic examination performed. ??JRD/JRD DIAGNOSIS Colon, rectum, biopsy: ??Squamous and colonic glandular muco sa with prolapse type changes, negative for dysplasia. PATHOLOGIST: ??CATHRYN GARCIA MD Electronically Signed: ??02/01/2011 12:49 Specimen Anatomical Collection Method Collection Time Receive d Time (Source) Location / / Volume Laterality 01/31/2011 8:22 AM 1 9:45 CDT AM CDT Simon Preciado MD EC PATHOLOGY ORDERABLES Performing Organization Address City/State/ZIP Code Phon e Number [facility] LABORATORY COLONOSCOPY (01/31/2011 7:18 AM CDT) Specimen (Source) Anatomical Collection Method Collection Time Re ceived Time Location / / Volume Laterality 01/31/2011 7:18 AM CDT Narrative 01/31/2011 7:18 AM CDT [facility] ??[facility] Patient Name: ??SIMON CASTILLO Admission Date: ??01/31/2011 ??: ?Age: ??75Y ?Patient Location: ?? [place] Dictating Provider: ??Amy Beckford COLONOSCOPY [facility] ADDENDUM: The rectal polyp was prolapse change onl y. Five-year surveillance given his history of adenomatous polyps. The patient will be notified of these results and recommenda tions via letter. ? Simon Preciado M.D./ junior CC: Deirdre Bedolla M.D. CDT/ Job ID: [id number] CDT/tlj Document I D: [id number] Procedure Note Simon Preciado MD - 02/02/2011 3:07 P M CDT [facility] Patient Name: SIMON CASTILLO Admission Date: 01/31/2011 : [birth year] Age: 75Y Patient Location: [place] Dictating Provider: Simon Preciado M.D. COLONOSCOPY [facility] ADDENDUM: The rectal polyp was prolapse change onl y. Five-year surveillance given his history of adenomatous polyps. The patient will be notified of these results and recommendations via letter. Simon Preciado M.D./ junior CC: Deirdre Bedolla M.D. CDT/ Job ID: [id number] CDT/junior Document I D: [id number] Simon Preciado MD EC PROCEDURES COLONOSCOPY (01/31/2011 7:18 AM CDT) Specimen (Source) Anatomical Collection Method Collection Time Re ceived Time Location / / Volume Laterality 01/31/2011 7:18 AM CDT Narrative 01/31/2011 7:18 AM CDT [facility] ??[facility] Patient Name: ??SIOMN CASTILLO Admission Date: ??01/31/2011 ??: ?Age: ??75Y ?Patient Location: ?? [place] Dictating Provider: ??Amy Beckford COLONOSCOPY [facility] DATE: ??January 31, 2011 PRIMARY CARE PHYSICIAN: ??Deirdre Arrington MD INDICATION FOR PROCEDURE: ??Mr. Castillo is a 75-year-old male presenting for 5 year surveillance colon oscopy for history of adenomatous polyps. The risks and benefits of the procedure including risk of perforation, bleeding, and missed lesion s were discussed with the patient. Informed consent was obtained. After a brief cardiopulmonary physical examination, patient was found to be an acceptable candidate for conscious se dation. He is an ASA class III. ?? DESCRIPTION OF PROCEDURE: ??The patient was placed in the left lateral decubitus position. He received fentanyl 100 mcg and Versed 5 mg IV in a titrated fashion. Re ctal examination was unremarkable. The Olympus adult variable stiffness colonoscope was inserted through the anus and advanc ed through the colon under direct vision to the cecum, as elaine ntified by the ileocecal valve and appendiceal orifice. The quali ty of the prep was good to excellent. The entire colon was caref ully examined including the proximal aspect of the colonic folds , around the flexured areas, and on retroflexed view in the re ctum. FINDINGS: ??A large number of diverticul a were noted throughout the sigmoid colon. A single 3 mm sessile polyp was identified in the distal rectum on retroflex view. Yosef ypectomy was performed with the cold polypectomy snare. The les ion was completely resected and retrieved. The remainder of the colon was otherwise normal. IMPRESSION: 1. Small rectal polyp, resected and retr ieved. 2. Severe sigmoid diverticulosis. RECOMMENDATION: ??Check pathology of res ected polyp. Barring any advanced histology, a 5-year surveillanc e interval would be appropriate, given his history. POST-CONSCIOUS SEDATION/ANESTHESIA NOTE: The patient was monitored post IV consci ous sedation with continuous EKG and pulse monitoring as w ell as periodic blood pressure monitoring. ??Upon the patient regaining an alert level of sustained consciousness and the salma nuous O2 saturation and blood pressure monitoring confirming rec overy from the anesthetic effect of the intravenous medications, t he patient was discharged in the care of an adult attendant. Guidelines for immediate medical attenti on post procedure were given to the patient in a verbal and wri tten format. ? Simon Preciado M.D./ lsa CC: Deirdre Bedolla M.D. CDT/ Job ID: [id number] CDT/lsa Document I D: [id number] Procedure Note Simon Preciado MD - 01/31/2011 8:26 A M CDT [facility] Patient Name: SIMON CASTILLO Admission Date: 01/31/2011 : [birth year] Age: 75Y Patient Location: [place] Dictating Provider: Simon Preciado M.D. COLONOSCOPY [facility] DATE: January 31, 2011 PRIMARY CARE PHYSICIAN: Deirdre Barton MD INDICATION FOR PROCEDURE: Mr. Castillo is a 75-year-old male presenting for 5 year surveillance colonoscopy for history of adenomatous polyps. The risks and benefits of the procedure including risk of perforation, bleeding, and missed lesions were discussed with the patient. Informed consent was obtained. After a brief cardiopulmonary physical examination, the patient was found to be an acceptabl e candidate for conscious sedation. He is an ASA class III. DESCRIPTION OF PROCEDURE: The patient wa s placed in the left lateral decubitus position. He received fentanyl 100 mcg and Versed 5 mg IV in a titrated fashion. Rectal examination was unremarkable. The Olympus adult variable stiffness colonoscope was inser selina through the anus and advanced through the colon under direct vision to the cecum, as identified by the ileocecal valve and appendiceal orifice. The quality of the prep was good to excellent. The entire colon was caref ully examined including the proximal aspect of the colonic folds, around the flexured areas, and on retroflexed view in the rectum. FINDINGS: A large number of diverticula were noted throughout the sigmoid colon. A single 3 mm sessile polyp was identified in the distal rectum on retroflex view. Polypectomy was performed with the cold polypectomy snare. The lesion was completely resected and r etrieved. The remainder of the colon was otherwise normal. IMPRESSION: 1. Small rectal polyp, resected and retr ieved. 2. Severe sigmoid diverticulosis. RECOMMENDATION: Check pathology of resec selina polyp. Barring any advanced histology, a 5-year surveillance interval would be appropriate, given his history. POST-CONSCIOUS SEDATION/ANESTHESIA NOTE: The patient was monitored post IV consci ous sedation with continuous EKG and pulse monitoring as well as periodic blood pressure monitoring. Upon the patient regaining an alert level of sustained consciousness and the continuous O2 saturation and blood press ure monitoring confirming recovery from the anesthetic effect of the intravenous medications, the patient was discharged in the care of an adult attendant. Guidelines for immediate medical attenti on post procedure were given to the patient in a verbal and written format. Simon Preciado M.D./ april CC: Deirdre Bedolla M.D. CDT/ Job ID: [id number] CDT/april Document I D: [id number] Simon Preciado MD EC PROCEDURES documented in this encounter Visit Diagnoses Not on filedocumented in this encounter Discontinued Medications Medication Sig Discontinue Reason Start Date End Date vardenafil (LEVITRA) Take 1 Tab by mouth Duplicate Medication 12/1501/31/2011 20 MG tablet one time a day as needed for Erectile dysfunction. documented as of this encounter Active and Recently Administered Medications Times are shown in CDT. PRN Medication Order 01/29/2011 01/30/2011 01/31/2011 fentaNYL (SUBLIMAZE) injection (CANCELED) 0810 (Given - Provider: Gisela Fischer RN)0830 (Due) NEEDED, Starting Sat01/31/11 at 0810, Until Discontinued, Alex n midazolam (VERSED) injection (CANCELED) 0810 (Given - Provider: Gisela Fischer RN)0830 (Due) NEEDED, Starting Sat01/31/11 at 0810, Until Discontinued, Sed ation documented in this encounter Orders Medications Ordered That Might Not Have Count Last Ord ered Date First Ordered Date Been Administered fentaNYL (SUBLIMAZE) injection 1 01/31/2011 midazolam (VERSED) injection 1 01/31/2011 documented in this encounter Care Teams Tip Out Worker Relationship Specialty Start Date End Date Deirdre Bedolla MD PCP - General Family Medicine 01/15/11 02/25/112023 [address] [address] documented as of this encounter
--- OUTSIDE RECORDS SUMMARY | 2022-06-07 21:03 | XMS_ITS | Encounter Summary ---
:1935 Author Organization [employer] Address [address] [place] [address] Phone Care Team Providers Name Role Phone Deirdre Bedolla MD Primary Care Provider [phone] Encounter Details Date Type Department Care Team Description 05/22/2011 Office Visit [facility] Raman Wilkins, PT Other physical therapy (Primary Dx); Center Tool Liaison - [address] D isorders of bursae and tendons in shoulder region, unspecified; Rehab Out[facility] Shoulder pain [address] [place] [place] [address] [address] [place] [address] Social History Tobacco Use Types Packs/Day Years Used Date Smoking Tobacco: Never Smokeless Tobacco: Never Alcohol Use Standard Drinks/Week Comments No 0 (1 standard drink = 0.6 oz pure alcoho l) Sex Assigned at Date Recorded Not on file documented as of this encounter Progress Notes Raman Wilkins, PT - 05/22/2011 3:34 PM CST PROGRESS NOTE FOR Simon Castillo Subjective report: Patient reports that he had left surgery with his eye and that he has been doing his home program with his shoulder and he also sees physician next week for recheck Pain ratin/10 Functional status: Patient is out of his brace and is eating with his hand and is dressing with lessdifficulty but he is in the active asst phase of his rehab and needs to be careful Compliance with home program: Patient continues to have good home compliance of exercises and with following restrictions. Objective findings: For involved / shoulder supine passive flexion is 135 degrees, passive abductionis 70 degrees and ER is 30 degrees with all with no significant discomfort. Visual inspection of incision shows no redness or drainage and is healing [...] with minimal to no pain. Plan: Will see patient 1-2 more and will then have patient see physician for recheck Is patient achieving their goals following the [...] time: 60 minutes Provider: Raman Wilkins PT TION WORKER documented in this encounter Plan of Treatment Not on filedocumented as of this encounter Procedures Procedure Name Priority Date/Time Associated Diagnosis Comme nts MANUAL THER Routine 05/22/2011 3:34 PM Other physica l physical therapy nurse,1+REGIONS,EA 15 MIN ADOPTION WORKER Disorders of bur matteo and tendons in shoulder region, unspecified Shoulder pain THERAPEUTIC EXERCISES Routine 05/22/2011 3:34 PM Other p hysical therapy ADOPTION WORKER Disorders of bursae and tendons in shoulder region, unspecified Shoulder pain ULTRASOUND THERAPY Routine 05/22/2011 3:34 PM Other phys ical therapy ADOPTION WORKER Disorders of bursae and tendons in shoulder region, unspecified Shoulder pain documented in this encounter Visit Diagnoses Diagnosis Other physical therapy - Primary Disorders of bursae and tendons in shoul brittnee region, unspecified Shoulder pain Pain in joint, shoulder region documented in this encounter Orders Procedures Count Last Ordered Date First Ordered Date MANUAL THER TECH,1+REGIONS,EA 15 MIN 1 05/22/2011 THERAPEUTIC EXERCISES 1 05/22/2011 ULTRASOUND THERAPY 1 05/22/2011 documented in this encounter Care Teams Title Investigator Relationship Specialty Start Date End Date Deirdre Bedolla MD PCP - General Family Medicine 05/01/11 06/03/112023 [address] [address] documented as of this encounter
--- OUTSIDE RECORDS SUMMARY | 2022-06-07 21:03 | XMS_ITS | Encounter Summary ---
:1935 Author Organization [employer] Address [address] [address] Phone Care Team Providers Name Role Phone Deridre Bedolla MD Primary Care Provider [phone] Reason for Visit Reason Comments Refill Request Encounter Details Date Type Department Care Team Description 05/19/2011 Refill [facility] Mabel Bedolla Refill Request FAMILY MEDICINE MD Nomi 2023 [facility] [address] [address] [place], [place] [id number] (Wo rk) Social History Tobacco Use Types [...] MG TAKE ONE TABLET BY 90 Tab 1 05/0810/13/2011 tablet MOUTH ONE TIME DAILY documented in this encounter Plan of Treatment Not on filedocumented as of this encounter Visit Diagnoses Not on filedocumented in this encounter Care Teams Android Platform Developer Relationship Specialty Start Date End Date Deirdre Bedolla MD PCP - General Family Medicine 05/01/11 06/03/112023 [address] [address] documented as of this encounter
--- OUTSIDE RECORDS SUMMARY | 2022-06-07 21:03 | XMS_ITS | Encounter Summary ---
:1935 Author Organization [employer] Address [address] [address] Phone Care Team Providers Name Role Phone Deirdre Bedolla MD Primary Care Provider [phone] Deirdre Bedolla MD Primary Care Provider [phone] Deirdre Bedolla MD Primary Care Provider [phone] Reason for Visit Reason Onset Date Comments Refill Request 12/29/2010 Encounter Details Date Type Department Care Team Description 12/29/2010 Refill [facility] Allergy Murali Wing LPN Refill Request 2023 [facility] FAHEEM [place] [id number] Social History Tobacco Use Types Packs/Day Years Used Date Smoking Tobacco: Never Smokeless Tobacco: Never Alcohol Use Standard Drinks/Week Comments No 0 (1 standard drink = 0.6 oz pure alcoho l) Sex Assigned at Date Recorded Not on file documented as of this encounter Ordered Prescriptions Prescription Sig Dispensed Refills Start Date End Date metFORMIN SR modified Take 1 Tab by mouth. 270 Tab 0 12/0703/05/2011 release (GLUMETZA) 1000 Swallow tablet MG (MOD) 24 hour tablet whole; do not crush, divide or chew. Take one tab in am and two tabs in pm. documented in this encounter Plan of Treatment Not on filedocumented as of this encounter Visit Diagnoses Not on filedocumented in this encounter Care Teams Division Service Manager Relationship Specialty Start Date End Date Deirdre Bedolla MD PCP - General Family Medicine 12/15/10 01/14/112023 [address] [address] Deirdre Bedolla MD PCP - General Family Medicine 01/15/11 02/25/112023 [address] [address] Deirdre Bedolla MD PCP - General Family Medicine 02/26/11 03/29/112023 [address] [address] documented as of this encounter
--- OUTSIDE RECORDS SUMMARY | 2022-06-07 21:03 | XMS_ITS | Encounter Summary ---
:1935 Author Organization [facility] Address [address] [place] [address] Phone Care Team Providers Name Role Phone Deirdre Bedolla MD Primary Care Provider [phone] Encounter Details Date Type Department Care Team Description 04/03/2011 Office Visit [facility] Raman Wilkins, PT Other physical therapy (Primary Dx); Center Speech Professor - 3 [facility] nspecified disorders of bursae and tendons in shoulder region; Rehab Out[facility] [place] Shoulder pain 2016 [facility] [address] [place] [address] Social History Tobacco Use Types Packs/Day Years Used Date Smoking Tobacco: Never Smokeless Tobacco: Never Alcohol Use Standard Drinks/Week Comments No 0 (1 standard drink = 0.6 oz pure alcoho l) Sex Assigned at Date Recorded Not on file documented as of this encounter Progress Notes Raman Wilkins, PT - 04/03/2011 11:03 AM CDT PROGRESS NOTE FOR Simon Castillo Subjective report: Patient reports that he has been wearing his sling for protection and that he is pleased with his progress and that he did wake up and find that his shoulder was out of the sling andout to his side and he reports still having concerns at night with his shoulder when trying to sleep Pain ratin/10 Functional status: Patient is in protective phase of their rehab and need to wear the sling until 6 weeks post op as per physicians request and therefore are using their uninvolved arm to do the adls at this time. Compliance with home program: Patient continues to have good home compliance of exercises and with following restrictions. Objective findings: For involved / shoulder supine passive flexion is 70 degrees, passive abduction is 40 degrees and ER is 0 degrees with all with no significant discomfort. Visual inspection of incision shows no redness or drainage and is healing favorably. Sling is worn for protection. Treatment today: 1.Skilled manual therapy techniques consisting of soft tissue mobilization and manual edema mobilization is done to the upper trapezius, levator scapula, posterior rotator cuff , and going into the humeral areas in order to decrease pain,promote relaxation of tissue, decrease edema, promote elasticityof tissue, promote tissue healing while patient is in seated position with pillow under elbow x 17 minutes. 2Therapeutic exercise is done working with gentle scapular retractions, pendulums rom to hand wrist and elbow, and while in supine position in recliner he works with gentle Passive rom with emphasis onflexion and he achieves 70 degrees of passive flexion and his er is neutral With numerous verbal cues to relax 3.Ice pack is given post treatment x 10 minutes to decrease swelling, decrease post inflammatory soreness Response to treatment: Good with no signicant increase of pain noted Communication/education: Emphasis has been made to protect repair by avoiding active lifting, avoiding reaching, avoiding significant hand behind back activities, to wear sling for protection, and to make sure that exercises are done with minimal to no pain. Plan: Will continue to work with plan of care of using sling until 6 weeks post op and then will wean off of it and progress into aarom to eventual arom at 8-10 weeks depending on patients status with achieving goals Is patient achieving their goals following the plan of care? YES because he has improved shoulder passive rom, is using his brace for protection, and is also having minimal pain with his shoulder at this time and he still need considerable verbal cues to RELAX when doing the PROM Total treatment time: 60 minutes Provider: Raman Wilkins PT documented in this encounter Plan of Treatment Scheduled Orders Name Type Priority Associated Diagnoses Order S chedule MANUAL THER Procedures Routine Other physical t herapy Ordered: 04/03/2011 TECH,1+REGIONS,EA 15 Unspecified disorder s MIN of bursae and tendons in shoulder kasia on Shoulder pain THERAPEUTIC EXERCISES Procedures Routine Other phys ical therapy Ordered: 04/03/2011 Unspecified disorders of bursae and tendons in shoulder kasia on Shoulder pain documented as of this encounter Visit Diagnoses Diagnosis Other physical therapy - Primary Disorders of bursae and tendons in shoul brittnee region, unspecified Shoulder pain Pain in joint, shoulder region documented in this encounter Care Teams Marketing Specialist Relationship Specialty Start Date End Date Deirdre Bedolla MD PCP - General Family Medicine 03/30/11 04/30/112023 [address] [address] documented as of this encounter
--- OUTSIDE RECORDS SUMMARY | 2022-06-07 21:03 | XMS_ITS | Encounter Summary ---
:1935 Author Organization [facility] Address [address] [place] [address] Phone Care Team Providers Name Role Phone Deirdre Bedolla MD Primary Care Provider [phone] Encounter Details Date Type Department Care Team Description 05/02/2011 Office Visit [facility] Raman Wilkins, PT Other physical therapy (Primary Dx); Center Product Grader - 3 [facility] nspecified disorders of bursae and tendons in shoulder region; Rehab Out[facility] [place] Shoulder pain 2016 [facility] [address] [place] [address] Social History Tobacco Use Types Packs/Day Years Used Date Smoking Tobacco: Never Smokeless Tobacco: Never Alcohol Use Standard Drinks/Week Comments No 0 (1 standard drink = 0.6 oz pure alcoho l) Sex Assigned at Date Recorded Not on file documented as of this encounter Progress Notes Raman Wilkins, PT - 05/02/2011 4:10 PM CDT PROGRESS NOTE FOR Simon Castillo Subjective report: Patient reports that he moved his arm into various positions while he was trying to sleep last night and he did have some soreness from this and that he is ok today indicating that his soreness is less and that he is careful with his program Pain ratin/10 Functional status: Patient is now getting out of his brace and is eating with his hand and is dressing with less difficulty but he is in the active asst phase of his rehab and needs to be careful Compliance with home program: Patient continues to have good home compliance of exercises and with following restrictions. Objective findings: For involved / shoulder supine passive flexion is 120 degrees, passive abductionis 60 degrees and ER is 10 degrees with all with no significant discomfort. Visual inspection of incision shows no redness or drainage and is healing favorably. Treatment today: 1.Skilled ultrasound is done with [...] to relax and he does work with exercises for 20 minutes with his passive romactivitieis 4.Ice pack is given post treatment x [...] with minimal to no pain. Plan: Will progress patient to aarom with emphasis on supine and progress to vertical as tolerated Is patient achieving their goals following the plan of care? YES because he has improved shoulder passive rom and now improved active asst rom, is using his brace for protection If needed when out in public, and is also having minimal pain with his shoulder at this time and he still need considerable verbal cues to not overdo It because he is having less pain and he is now weaning off his immob Total treatment time: 60 minutes Provider: Raman Wilkins PT documented in this encounter Plan of Treatment Scheduled Orders Name Type Priority Associated Diagnoses Order S chedule ULTRASOUND THERAPY Procedures Routine Other physica l therapy Ordered: 05/02/2011 Unspecified disorders of bursae and tendons in shoulder kasia on Shoulder pain MANUAL THER Procedures Routine Other physical t herapy Ordered: 05/02/2011 TECH,1+REGIONS,EA 15 Unspecified disorder s MIN of bursae and tendons in shoulder kasia on Shoulder pain THERAPEUTIC EXERCISES Procedures Routine Other phys ical therapy Ordered: 05/02/2011 Unspecified disorders of bursae and tendons in shoulder kasia on Shoulder pain documented as of this encounter Visit Diagnoses Diagnosis Other physical therapy - Primary Unspecified disorders of bursae and tend ons in shoulder region Disorders of bursae and tendons in shoul brittnee region, unspecified Shoulder pain Pain in joint, shoulder region documented in this encounter Care Teams Horse Trader Relationship Specialty Start Date End Date Deirdre Bedolla MD PCP - General Family Medicine 05/01/11 06/03/112023 [address] [address] documented as of this encounter
--- OUTSIDE RECORDS SUMMARY | 2022-06-07 21:03 | XMS_ITS | Encounter Summary ---
:1935 Author Organization [facility] Address [address] [place] [address] Phone Care Team Providers Name Role Phone Deirdre Bedolla MD Primary Care Provider [phone] Encounter Details Date Type Department Care Team Description 06/08/2011 Office Visit [facility] Raman Wilkins, PT Other physical therapy (Primary Dx); Center Oxygen Furnace Operator - [address] [facility] [address] D isorders of bursae and tendons in shoulder region, unspecified; Rehab Out[facility] [place] Shoulder pain [address] [place] [place] [address] [address] [place] [address] Social History Tobacco Use Types Packs/Day Years Used Date Smoking Tobacco: Never Smokeless Tobacco: Never Alcohol Use Standard Drinks/Week Comments No 0 (1 standard drink = 0.6 oz pure alcoho l) Sex Assigned at Date Recorded Not on file documented as of this encounter Progress Notes Raman Wilkins, PT - 06/08/2011 12:22 PM CST PROGRESS NOTE FOR Simon Castillo Subjective report: Patient reports that he has been laying on his involved shoulder and has some increased pain from this and that he tries not to lay on it but he wakes up laying his shoulder Pain ratin/10 Functional status: Patient is out of his brace and is eating with his hand and is dressing with lessdifficulty but he is in the active asst phase of his rehab and needs to be careful and since his last check with physician he is now doing active rom and he has been able to progress to 2 -4ounces fro his supine rtc program and is in no way ready to be lifting a gallon of milk yet! Compliance with home program: Patient continues to [...] gentle level and he also progressed to 2 ounces for his er strengthening at a gentle level with no pain with numerous verbal cues to be careful and that his shoulder is very weak 4.Ice pack is given post treatment x 10 minutes to decrease swelling, decrease post inflammatory soreness Response to treatment: Good with no signicant increase of pain noted and he is now able to progress to standing exercises and he is able to progress to 2 ounces for strengthening program Communication/education: Emphasis has [...] the growth on his shoulder and he will also work with 2 ounces for exercises and we will continue to put emphasis on being careful withprogressions Is patient achieving their goals following the [...] strengthening at a very very gentle level . Total treatment time: 60 minutes Provider: Raman Wilkins PT CARE ASSISTANT documented in this encounter Plan of Treatment Not on filedocumented as of this encounter Procedures Procedure Name Priority Date/Time Associated Diagnosis Comme nts MANUAL THER Routine 06/08/2011 12:22 PM Other physic al hospice music therapy,1+REGIONS,EA 15 MIN HOME CARE ASSISTANT Disorders of bur matteo and tendons in shoulder region, unspecified Shoulder pain THERAPEUTIC EXERCISES Routine 06/08/2011 12:22 PM Other physical therapy HOME CARE ASSISTANT Disorders of bursae and tendons in shoulder region, unspecified Shoulder pain ULTRASOUND THERAPY Routine 06/08/2011 12:22 PM Other phy sical therapy HOME CARE ASSISTANT Disorders of bursae and tendons in shoulder region, unspecified Shoulder pain documented in this encounter Visit Diagnoses Diagnosis Other physical therapy - Primary Disorders of bursae and tendons in shoul brittnee region, unspecified Shoulder pain Pain in joint, shoulder region documented in this encounter Orders Procedures Count Last Ordered Date First Ordered Date MANUAL THER TECH,1+REGIONS,EA 15 MIN 1 06/08/2011 THERAPEUTIC EXERCISES 1 06/08/2011 ULTRASOUND THERAPY 1 06/08/2011 documented in this encounter Care Teams Shingle Cutter Relationship Specialty Start Date End Date Deirdre Bedolla MD PCP - General Family Medicine 11/28/11 6/29/[address] [id number] documented as of this encounter
--- OUTSIDE RECORDS SUMMARY | 2022-06-07 21:03 | XMS_ITS | Encounter Summary ---
:1935 Author Organization [facility] Address [address] [place] [address] Phone Care Team Providers Name Role Phone Deirdre Bedolla MD Primary Care Provider [phone] Encounter Details Date Type Department Care Team Description 05/08/2011 Office Visit [facility] Raman Wilkins, PT Other physical therapy (Primary Dx); Center Entertainment Usher - 3 [facility] nspecified disorders of bursae and tendons in shoulder region; Rehab Out[facility] [place] Shoulder pain 2016 [facility] [address] [place] [address] Social History Tobacco Use Types Packs/Day Years Used Date Smoking Tobacco: Never Smokeless Tobacco: Never Alcohol Use Standard Drinks/Week Comments No 0 (1 standard drink = 0.6 oz pure alcoho l) Sex Assigned at Date Recorded Not on file documented as of this encounter Progress Notes Raman Wilkins, PT - 05/08/2011 12:01 PM CDT PROGRESS NOTE FOR Simon Castillo Subjective report: Patient reports that he did have a recent fall but he landed on his other arm andhe did have some pain with his operative shoulder but it is better now and that he is now approx 8 weeks post op Pain ratin/10 Functional status: Patient is now [...] involved / shoulder supine passive flexion is 125 degrees, passive abductionis 60 degrees and ER is 20 degrees with all with no significant discomfort. [...] Associated Diagnosis Comme nts MANUAL THER Routine 05/08/2011 11:57 AM Other physic al educational therapy teacher,1+REGIONS,EA 15 MIN CDT Unspecified diso rders of bursae and tendons in shoulder kasia on Shoulder pain THERAPEUTIC EXERCISES Routine 05/08/2011 11:57 AM Other physical therapy CDT Unspecified disorders of bursae and tendons in shoulder kasia on Shoulder pain ULTRASOUND THERAPY Routine 05/08/2011 11:57 AM Other phy sical therapy CDT Unspecified disorders of bursae and tendons in shoulder kasia on Shoulder pain documented in this encounter Visit Diagnoses Diagnosis Other physical therapy - Primary Unspecified disorders of bursae and tend ons in shoulder region Disorders of bursae and tendons in shoul brittnee region, unspecified Shoulder pain Pain in joint, shoulder region documented in this encounter Orders Procedures Count Last Ordered Date First Ordered Date MANUAL THER TECH,1+REGIONS,EA 15 MIN 1 05/08/2011 THERAPEUTIC EXERCISES 1 05/08/2011 ULTRASOUND THERAPY 1 05/08/2011 documented in this encounter Care Teams Court Stenographer Relationship Specialty Start Date End Date Deirdre Bedolla MD PCP - General Family Medicine 05/01/11 06/03/112023 [address] [id number] documented as of this encounter
--- OUTSIDE RECORDS SUMMARY | 2022-06-07 21:03 | XMS_ITS | Encounter Summary ---
:1935 Author Organization [facility] Address [address] [place] [address] Phone Care Team Providers Name Role Phone Deirdre Bedolla MD Primary Care Provider [phone] Encounter Details Date Type Department Care Team Description 05/09/2011 Office Visit [facility] Raman Wilkins, PT Other physical therapy (Primary Dx); Center Boat Driver - 3 [facility] nspecified disorders of bursae and tendons in shoulder region; Rehab Out[facility] [place] Shoulder pain 2016 [facility] [address] [place] [address] Social History Tobacco Use Types Packs/Day Years Used Date Smoking Tobacco: Never Smokeless Tobacco: Never Alcohol Use Standard Drinks/Week Comments No 0 (1 standard drink = 0.6 oz pure alcoho l) Sex Assigned at Date Recorded Not on file documented as of this encounter Progress Notes Raman Wilkins, PT - 05/09/2011 3:42 PM CDT PROGRESS NOTE FOR Simon Castillo Subjective report: Patient reports that he has been doing his exercises and he needs to be careful with not overdoing his exercises because then he will get sore and that he has to also be careful withhis wall slides indicating that he cannot go to high before having discomfort with his shoulder Pain ratin/10 Functional status: Patient is now [...] passive abductionis 60 degrees and ER is 25 degrees with all with no significant discomfort. [...] Associated Diagnosis Comme nts MANUAL THER Routine 05/09/2011 3:36 PM Other physica l recreation therapy aide,1+REGIONS,EA 15 MIN CDT Unspecified diso rders of bursae and tendons in shoulder kasia on Shoulder pain THERAPEUTIC EXERCISES Routine 05/09/2011 3:36 PM Other p hysical therapy CDT Unspecified disorders of bursae and tendons in shoulder kasia on Shoulder pain ULTRASOUND THERAPY Routine 05/09/2011 3:36 PM Other phys ical therapy CDT Unspecified disorders of bursae and [...] Date MANUAL THER TECH,1+REGIONS,EA 15 MIN 1 05/09/2011 THERAPEUTIC EXERCISES 1 05/09/2011 ULTRASOUND THERAPY 1 05/09/2011 documented in this encounter Care Teams Investment Recovery Technician Relationship Specialty Start Date End Date Deirdre Bedolla MD PCP - General Family Medicine 05/01/11 06/03/112023 [address] [address] documented as of this encounter
--- OUTSIDE RECORDS SUMMARY | 2022-06-07 21:03 | XMS_ITS | Encounter Summary ---
:1935 Author Organization [facility] Address [address] [place] [address] Phone Care Team Providers Name Role Phone Deirdre Bedolla MD Primary Care Provider [phone] Encounter Details Date Type Department Care Team Description 04/24/[address] [facility] Raman Wilkins, PT Other physical therapy (Primary Dx); Center Commercial Estimator - 3 [facility] nspecified disorders of bursae and tendons in shoulder region; Rehab Outpt [place] Shoulder pain 2016 [facility] [address] [place] [address] Social History Tobacco Use Types Packs/Day Years Used Date Smoking Tobacco: Never Smokeless Tobacco: Never Alcohol Use Standard Drinks/Week Comments No 0 (1 standard drink = 0.6 oz pure alcoho l) Sex Assigned at Date Recorded Not on file documented as of this encounter Progress Notes Raman Wilkins, PT - 04/24/2011 2:22 PM CDT PROGRESS NOTE FOR Simon Castillo Subjective report: Patient reports that his did work with his prom at home and that he felt it went ok and that he will be at 6 weeks post op in 2 days and that he also felt that that his shoulderrom is getting better and that he now has been having problems with his back at this time with stiffness Pain ratin/10 Functional status: Patient is in protective phase of their rehab and needs to wear the sling until 6weeks post op as per physicians request and therefore are using their uninvolved arm to do the adls at this time Compliance with home program: Patient continues to have good home compliance of exercises and with following restrictions. Objective findings: For involved / shoulder supine passive flexion is 105 degrees, passive abductionis 50 degrees and ER is 0 degrees with all with no significant discomfort. Visual inspection of incision shows no redness or drainage and is healing favorably. Sling is worn for protection. Treatment today: 1.Skilled ultrasound is done with [...] with emphasis on flexion and he achieves 105 degrees of passive flexion and his er is neutral With numerous verbal cues to relax and he does work with exercises for 20 minutes with his passive rom activitieis 4.Ice pack is given post treatment x 10 minutes to decrease swelling, decrease post inflammatory soreness 4. Patients is encouraged to hold with doing his prom until next week because he will then be in a Active asst mode next week because he will be at 6 weeks post op Response to treatment: Good with no signicant [...] Procedures Routine Other physica l therapy Ordered: 04/24/2011 Unspecified disorders of bursae and tendons in shoulder kasia on Shoulder pain MANUAL THER Procedures Routine Other physical t herapy Ordered: 04/24/2011 TECH,1+REGIONS,EA 15 Unspecified disorder s MIN of bursae and tendons in shoulder kasia on Shoulder pain THERAPEUTIC EXERCISES Procedures Routine Other phys ical therapy Ordered: 04/24/2011 Unspecified disorders of bursae and tendons in shoulder kasia on Shoulder pain documented as of this encounter Visit Diagnoses Diagnosis Other physical therapy - Primary Unspecified disorders of bursae and tend ons in shoulder region Disorders of bursae and tendons in shoul brittnee region, unspecified Shoulder pain Pain in joint, shoulder region documented in this encounter Care Teams Facilities Engineer Relationship Specialty Start Date End Date Deirdre Bedolla MD PCP - General Family Medicine 03/30/11 04/30/112023 [address] [address] documented as of this encounter
--- OUTSIDE RECORDS SUMMARY | 2022-06-07 21:03 | XMS_ITS | Encounter Summary ---
:1935 Author Organization [email or web address] [facility] Address [address] [place] [address] Phone Care Team Providers Name Role Phone Deirdre Bedolla MD Primary Care Provider [phone] Encounter Details Date Type Department Care Team Description 05/29/2011 Office Visit [facility] Raman Wilkins, PT Other physical therapy (Primary Dx); Center Pediatric Surgeon - [address] [facility] [address] D isorders of bursae and tendons in shoulder region, unspecified; Rehab Outpt [place] Shoulder pain [address] [place] [place] [address] [address] [place] [address] Social History Tobacco Use Types Packs/Day Years Used Date Smoking Tobacco: Never Smokeless Tobacco: Never Alcohol Use Standard Drinks/Week Comments No 0 (1 standard drink = 0.6 oz pure alcoho l) Sex Assigned at Date Recorded Not on file documented as of this encounter Progress Notes Raman Wilkins, PT - 05/29/2011 1:05 PM CST PROGRESS NOTE FOR Simon Castillo Subjective report: Patient reports that he saw his physician for recheck and that he was pleased with progress Pain ratin/10 Functional status: Patient is out [...] isometrics at a very very gentle level 4.Ice pack is given post treatment x [...] minimal to no pain. Plan: Will continue with PT and he will also be having a check of the growth on his shoulder Is patient achieving their [...] of progressing from supine to vertical position And he also was able to progress to gentleisometrics for ER strengthening at a very very gentle level Total treatment time: 60 minutes Provider: Raman Wilkins PT APPLIANCE MECHANIC documented in this encounter Plan of Treatment Not on filedocumented as of this encounter Procedures Procedure Name Priority Date/Time Associated Diagnosis Comme nts MANUAL THER Routine 05/29/2011 1:05 PM Other physica l therapy coordinator,1+REGIONS,EA 15 MIN GAS APPLIANCE MECHANIC Disorders of bur matteo and tendons in shoulder region, unspecified Shoulder pain THERAPEUTIC EXERCISES Routine 05/29/2011 1:05 PM Other p hysical therapy GAS APPLIANCE MECHANIC Disorders of bursae and tendons in shoulder region, unspecified Shoulder pain ULTRASOUND THERAPY Routine 05/29/2011 1:05 PM Other phys ical therapy GAS APPLIANCE MECHANIC Disorders of bursae and tendons in shoulder region, unspecified Shoulder pain documented in this encounter Visit Diagnoses Diagnosis Other physical therapy - Primary Disorders of bursae and tendons in shoul brittnee region, unspecified Shoulder pain Pain in joint, shoulder region documented in this encounter Orders Procedures Count Last Ordered Date First Ordered Date MANUAL THER TECH,1+REGIONS,EA 15 MIN 1 05/29/2011 THERAPEUTIC EXERCISES 1 05/29/2011 ULTRASOUND THERAPY 1 05/29/2011 documented in this encounter Care Teams Manager Pipeline Relationship Specialty Start Date End Date Deirdre Bedolla MD PCP - General Family Medicine 05/01/11 06/03/112023 [address] [address] documented as of this encounter
--- OUTSIDE RECORDS SUMMARY | 2022-06-07 21:03 | XMS_ITS | Encounter Summary ---
:1935 Author Organization [employer] Address [address] [place] [address] Phone Care Team Providers Name Role Phone Deirdre Bedolla MD Primary Care Provider [phone] Encounter Details Date Type Department Care Team Description 05/01/2011 Office Visit [facility] Raman Wilkins, PT Other physical therapy (Primary Dx); Center Dynamite Packing Machine Feeder - 3 [facility] nspecified disorders of bursae and tendons in shoulder region; Re[facility] [place] Shoulder pain [address] [facility] [address] [place] [address] Social History Tobacco Use Types Packs/Day Years Used Date Smoking Tobacco: Never Smokeless Tobacco: Never Alcohol Use Standard Drinks/Week Comments No 0 (1 standard drink = 0.6 oz pure alcoho l) Sex Assigned at Date Recorded Not on file documented as of this encounter Progress Notes Raman Wilkins, PT - 05/01/2011 4:57 PM CDT PROGRESS NOTE FOR Simon Castillo Subjective report: Patient reports that he has been doing his exercises and that he is working with weaning off his sling and that he is pleased with how his shoulder is doing with less pain and improved rom and he is still being careful with it at this time Pain ratin/10 Functional status: Patient is now [...] Procedures Routine Other physica l therapy Ordered: 05/01/2011 Unspecified disorders of bursae and tendons in shoulder kasia on Shoulder pain MANUAL THER Procedures Routine Other physical t herapy Ordered: 05/01/2011 TECH,1+REGIONS,EA 15 Unspecified disorder s MIN of bursae and tendons in shoulder kasia on Shoulder pain THERAPEUTIC EXERCISES Procedures Routine Other phys ical therapy Ordered: 05/01/2011 Unspecified disorders of bursae and tendons in shoulder kasia on Shoulder pain documented as of this encounter Visit Diagnoses Diagnosis Other physical therapy - Primary Unspecified disorders of bursae and tend ons in shoulder region Disorders of bursae and tendons in shoul brittnee region, unspecified Shoulder pain Pain in joint, shoulder region documented in this encounter Care Teams Legislators Relationship Specialty Start Date End Date Deirdre Bedolla MD PCP - General Family Medicine 05/01/11 06/03/112023 [address] [address] documented as of this encounter
--- OUTSIDE RECORDS SUMMARY | 2022-06-07 21:03 | XMS_ITS | Encounter Summary ---
:1935 Author Organization [employer] Address [address] [place] [address] Phone Care Team Providers Name Role Phone Deirdre Bedolla MD Primary Care Provider [phone] Encounter Details Date Type Department Care Team Description 06/05/2011 Office Visit [facility] Raman Wilkins, PT Other physical therapy (Primary Dx); Center Director Sales And Marketing - [address] [facility] [address] D isorders of bursae and tendons in shoulder region, unspecified; Rehab Outpt [place] Shoulder pain [address] [place] [place] [address] [place] [address] Social History Tobacco Use Types Packs/Day Years Used Date Smoking Tobacco: Never Smokeless Tobacco: Never Alcohol Use Standard Drinks/Week Comments No 0 (1 standard drink = 0.6 oz pure alcoho l) Sex Assigned at Date Recorded Not on file documented as of this encounter Progress Notes Raman Wilkins, PT - 06/05/2011 11:48 AM CST PROGRESS NOTE FOR Simon Castillo Subjective report: Patient reports that he has been working with his exercises and that he has been trying to lift a gallon of milk and it was painful and his shoulder is weak Pain ratin/10 Functional status: Patient is out of his brace and is eating with his hand and is dressing with lessdifficulty but he is in the active asst phase of his rehab and needs to be careful and since his last check with physician he is now doing active rom and he has been able to progress to 2 ounces fro his supine rtc program and is [...] of progressing from supine to vertical position and he also was able to progress to gentleisometrics for ER strengthening at a very very gentle level . Total treatment time: 60 minutes Provider: Raman Wilkins PT T DESK ADMINISTRATOR documented in this encounter Plan of Treatment Not on filedocumented as of this encounter Procedures Procedure Name Priority Date/Time Associated Diagnosis Comme nts MANUAL THER Routine 06/05/2011 11:48 AM Other physic al physical therapy supervisor,1+REGIONS,EA 15 MIN FRONT DESK ADMINISTRATOR Disorders of bur matteo and tendons in shoulder region, unspecified Shoulder pain THERAPEUTIC EXERCISES Routine 06/05/2011 11:48 AM Other physical therapy FRONT DESK ADMINISTRATOR Disorders of bursae and tendons in shoulder region, unspecified Shoulder pain ULTRASOUND THERAPY Routine 06/05/2011 11:48 AM Other phy sical therapy FRONT DESK ADMINISTRATOR Disorders of bursae and tendons in shoulder region, unspecified Shoulder pain documented in this encounter Visit Diagnoses Diagnosis Other physical therapy - Primary Disorders of bursae and tendons in shoul brittnee region, unspecified Shoulder pain Pain in joint, shoulder region documented in this encounter Orders Procedures Count Last Ordered Date First Ordered Date MANUAL THER TECH,1+REGIONS,EA 15 MIN 1 06/05/2011 THERAPEUTIC EXERCISES 1 06/05/2011 ULTRASOUND THERAPY 1 06/05/2011 documented in this encounter Care Teams Bobbin Washer Relationship Specialty Start Date End Date Deirdre Bedolla MD PCP - General Family Medicine 06/04/11 01/03/[address] [address] documented as of this encounter
--- OUTSIDE RECORDS SUMMARY | 2022-06-07 21:03 | XMS_ITS | Encounter Summary ---
:1935 Author Organization [employer] Address [address] [address] Phone Care Team Providers Name Role Phone Deirdre Bedolla MD Primary Care Provider [phone] Encounter Details Date Type Department Care Team Description 12/28/2010 Telephone [facility] [place] Marixa Zee, DIRECTOR WEB [address] [place] [address] Social History Tobacco Use Types Packs/Day Years Used Date Smoking Tobacco: Never Smokeless Tobacco: Never Alcohol Use Standard Drinks/Week Comments No 0 (1 standard drink = 0.6 oz pure alcoho l) Sex Assigned at Date Recorded Not on file documented as of this encounter Ordered Prescriptions Prescription Sig Dispensed Refills Start Date End Date solifenacin (VESICARE) Take 1 Tab by mouth 90 Tab 4 12/0711/19/2011 10 MG tablet one time a day. vardenafil (LEVITRA) 10 Take 1 Tab by mouth 30 Tab 12 05/09/2011 MG tablet one time as needed for Erectile dysfunction for 1 dose. solifenacin (VESICARE) Take 1 Tab by mouth 90 Tab 4 12/0712/28/2010 10 MG tablet one time a day. vardenafil (LEVITRA) 10 Take 1 Tab by mouth 30 Tab 12 12/28/2010 MG tablet one time as needed for Erectile dysfunction for 1 dose. documented in this encounter Miscellaneous Notes Telephone Encounter - Marixa Zee - 12/28/2010 4:22 PM CDT Pt preferred them mailed to his home so I did that as well. Telephone Encounter - Cristina Villalobos PA-C - 12/28/2010 11:10 AM CDT Rx's sent to pharm Telephone Encounter - Marixa Zee - 12/28/2010 9:45 AM CDT Pt has tried samples of Levitra 10mg and Vesicare 10mg and they worked, he would like both rx's mailed to his home. documented in this encounter Plan of Treatment Not on filedocumented as of this encounter Visit Diagnoses Not on filedocumented in this encounter Discontinued Medications Medication Sig Discontinue Reason Start Date End Date vardenafil (LEVITRA) Take 1 Tab by mouth 12/28/2010 12/28/2010 10 MG tablet one time as needed for Erectile dysfunction for 1 dose. solifenacin (VESICARE) Take 1 Tab by mouth 12/28/2010 12/28/2010 10 MG tablet one time a day. documented as of this encounter Care Teams Nursing Care Partner Relationship Specialty Start Date End Date Deirdre Bedolla MD PCP - General Family Medicine 12/15/10 01/14/112023 [address] [address] documented as of this encounter
--- OUTSIDE RECORDS SUMMARY | 2022-06-07 21:03 | XMS_ITS | Encounter Summary ---
:1935 Author Organization [employer] Address [address] [address] Phone Care Team Providers Name Role Phone Deirdre Bedolla MD Primary Care Provider Reason for Visit Reason Onset Date Comments Refill Request 12/28/2010 Encounter Details Date Type Department Care Team Description 12/28/2010 [facility] [address] [place], [place] [address] Social History Tobacco Use Types Packs/Day Years Used Date Smoking Tobacco: Never Smokeless Tobacco: Never Alcohol Use Standard Drinks/Week Comments No 0 (1 standard drink = 0.6 oz pure alcoho l) Sex Assigned at Date Recorded Not on file documented as of this encounter Ordered Prescriptions Prescription Sig Dispensed Refills Start Date End Date metFORMIN (GLUCOPHAGE) Take 1 Tab by mouth 270 Tab 0 12/0712/29/2010 1000 MG tablet two times a day (breakfast and supper). documented in this encounter Plan of Treatment Not on filedocumented as of this encounter Visit Diagnoses Not on filedocumented in this encounter Discontinued Medications Medication Sig Discontinue Reason Start Date End Date metFORMIN (GLUCOPHAGE) See Instructions, 08/10/2010 12/28/2010 1000 MG tablet Take 1 tablet in the AM and 2 tablets in the PM., 90 ea, Refills: 3, 08/10/10 15:29:11, [facility] [place] documented as of this encounter Care Teams Senior Software Analyst Relationship Specialty Start Date End Date Deirdre Bedolla MD PCP - General Family Medicine 12/15/10 01/14/112023 [address] [address] documented as of this encounter
--- OUTSIDE RECORDS SUMMARY | 2022-06-07 21:03 | XMS_ITS | Encounter Summary ---
:1935 Author Organization [employer] Address [address] [address] Phone Care Team Providers Name Role Phone Deirdre Bedolla MD Primary Care Provider Reason for Visit Auth/Cert - Closed Specialty Diagnoses / Procedures Referred By Contact Refer red To Contact Endoscopy Diagnoses 5 Year Follow Up Polyps [facility] Endoscopy [facility] Endoscopy Procedures COLONOSCOPY, DIAGNOSTIC- [address] [place] [address] [place] [address] Fax: Referral ID Status Reason Start Date Expiration Date Visits Requ ested Visits Authorized [id number] Closed 1 1 Encounter Details Date Type Department Care Team Description 01/31/2011 Surgery [facility] Kennedy Preciado MD COLONOSCOPY DIAGNOSTIC Center Endoscopy [address] [place] [address] [place] [address] [phone] (Wo rk) Surgery Details Date/Time Status Location OR Service Patient Case Case Traum a Class Class Type Case? 01/31/11 8:00 Posted [facility] Gastroenterology Procedure AM [facility] Non-Surgica ENDOSCOPY l Panel 1 Procedure LRB Anes Op Region Wound Class Commen ts COLONOSCOPY DIAGNOSTIC N/A CARL Clean Contami nated Surgeon Surgeon Role Service Panel Aaimr Preciado MD Primary Gastroenterology [address] Stadum documented in this encounter Social History Tobacco Use Types Packs/Day [...] documented in this encounter Discharge Instructions Discharge InstructionsSaAamir schumacher MD - 01/31/2011 8:26 AM CDT 1 [...] allowing me to participate in your care. Aamir Preciado M.D. documented in this encounter Medications at Time of Discharge Medication Sig Dispensed Refills Start Date End Date ASPIRIN LOW DOSE 81 MG 81 mg 1 tablet, 81.000 0 08/05/19 10 tablet ORAL, DAILY, 08/05/09 14:22:55 documented as of this encounter Discharge Disposition Disposition Code Departure Means Destination Home and/or Self Fdc documented in this encounter Progress Notes Aamir Preciado MD - 02/01/2011 1:31 PM CDT Aamir Preciado MD - 02/01/2011 1:30 PM CDT documented in this encounter Procedure Notes Aamir Preciado MD - 02/02/2011 3:07 PM CDTAssociated Order(s): COLONOSCOPY; COLONOSCOPY [facility] Patient Name: AAMIR CASTILLO Admission Date: 01/31/2011 : 1935 Age: 75Y Patient Location: [place] Dictating Provider: Aamir Preciado M.D. COLONOSCOPY [facility] ADDENDUM: The rectal polyp was prolapse change only. Five-year surveillance given his history of adenomatous polyps. The patient will be notified of these results and recommendations via letter. Aamir Preciado M.D./ junior CC: Dierdre Bedolla M.D. CDT/ Job ID: [id number] CDT/junior Document ID: [id number] Aamir Preciado MD - 01/31/2011 8:26 AM CDTAssociated Order(s): COLONOSCOPY; COLONOSCOPY [facility] Patient Name: AAMIR CASTILLO Admission Date: 01/31/2011 : 1935 Age: 75Y Patient Location: [place] Dict[place] Provider: Aamir Preciado M.D. COLONOSCOPY [facility] DATE: January 31, 2011 PRIMARY [...] patient in a verbal and written format. Aamir Preciado M.D./ lsa CC: Deirdre Bedolla M.D. CDT/ Job ID: [id number] CDT/lsa Document ID: [id number] documented in this encounter Plan of Treatment [...] Component Value Ref Test Analysis Performed At [facility] Range Method Time Signature PATHOLOGY SPECIMEN SOURCE [facility] SPEC RECTAL POLYP LABORATORY CLINICAL INFORMATION 5 [...] 8:22 AM 1 9:45 CDT AM CDT Aamir Preciado MD EC PATHOLOGY ORDERABLES Performing Organization Address City/State/ZIP Code Phon e Number [facility] COLONOSCOPY (01/31/2011 7:18 AM CDT) Specimen (Source) Anatomical Collection Method Collection Time Re ceived Time Location / / Volume Laterality 01/31/2011 7:18 AM CDT Narrative 01/31/2011 7:18 AM CDT [facility] ??[facility] C ENTER Patient Name: ??AAMIR CASTILLO Garcia Admission Date: ??01/31/2011 ??: ?Age: ??75Y ?Patient Location: ?? [place] Dictating Provider: ??Amy Beckford COLONOSCOPY [facility] ADDENDUM: The rectal polyp was prolapse change onl y. Five-year surveillance given his history of adenomatous polyps. The patient will be notified of these results and recommenda tions via letter. ? Aamir Preciado M.D./ tlj CC: Deirdre Bedolla M.D. CDT/ Job ID: [id number] CDT/tlj Document I D: [id number] Procedure Note Aamir Preciado MD - 02/02/2011 3:07 P M CDT [facility] C ENTER Patient Name: AAMIR CASTILLO Admission Date: 01/31/2011 : [birth year] Age: 75Y Patient Location: [place] Dict[place] Provider: Aamir Preciado M.D. COLONOSCOPY [facility] ADDENDUM: The rectal polyp was prolapse change onl y. Five-year surveillance given his history of adenomatous polyps. The patient will be notified of these results and recommendations via letter. Aamir Preciado M.D./ tlj CC: Deirdre Bedolla M.D. CDT/ Job ID: [id number] CDT/tlj Document I D: [id number] Aamir Preciado MD EC PROCEDURES COLONOSCOPY (01/31/2011 7:18 AM CDT) Specimen (Source) Anatomical Collection Method Collection Time Re ceived Time Location / / Volume Laterality 01/31/2011 7:18 AM CDT Narrative 01/31/2011 7:18 AM CDT [facility] ??[facility] ENTER Patient Name: ??AAMIR CASTILLO Admission Date: ??01/31/2011 ??: ?Age: ??75Y ?Patient Location: ?? [place] Dictating Provider: ??Amy Beckford COLONOSCOPY [facility] DATE: ??January 31, 2011 PRIMARY [...] obtained. After a brief cardiopulmonary physical examination, th e patient was found to be an acceptable [...] a verbal and wri tten format. ? Aamir Preciado M.D./ lsa CC: Deirdre Bedolla M.D. CDT/ Job ID: [id number] CDT/lsa Document I D: [id number] Procedure Note Aamir Preciado MD - 01/31/2011 8:26 A M CDT [facility] C ENTER Patient Name: AAMIR CASTILLO Admission Date: 01/31/2011 : [birth year] Age: 75Y Patient Location: [place] Dict[place] Provider: Aamir Preciado M.D. COLONOSCOPY [facility] DATE: January 31, 2011 PRIMARY [...] patient in a verbal and written format. Aamir Preciado M.D./ april CC: Deirdre Bedolla M.D. CDT/ Job ID: [id number] CDT/lsa Document I D: [id number] Aamir Preciado MD EC PROCEDURES documented in this encounter Visit Diagnoses Not on filedocumented in this encounter Administered Medications Inactive Administered Medications Medication Order MAR Action Action Date Dose Rate Site fentaNYL (SUBLIMAZE) injection Given 01/31/2011 8:10 AM CDT 100 mcg NEEDED, Starting on Sat01/31/11 at 0810, Until Sat01/31/11 at 1432, Pain midazolam (VERSED) injection Given 01/31/2011 8:10 AM CDT 3 mg NEEDED, Starting on Sat01/31/11 at 0810, Until Sat01/31/11 at 1432, Sedation documented in this encounter Discontinued Medications Medication [...] Discontinued, Sed ation documented in this encounter Care Teams Sledger Relationship Specialty Start Date End Date Deirdre Bedolla MD PCP - General Family Medicine 01/15/11 02/25/112023 [address] [address] documented as of this encounter
--- OUTSIDE RECORDS SUMMARY | 2022-06-07 21:03 | XMS_ITS | Encounter Summary ---
:1935 Author Organization [employer] Address [address] [place] [address] Phone Care Team Providers Name Role Phone Deirdre Bedolla MD Primary Care Provider [phone] Encounter Details Date Type Department Care Team Description 04/10/2011 Office Visit [facility] Raman Wilkins, PT Other physical therapy (Primary Dx); Center Critical Care Registered Nurse - 3 [facility] nspecified disorders of bursae and tendons in shoulder region; Re[facility] Out[facility] Shoulder pain [address] [facility] [address] [place] [address] Social History Tobacco Use Types Packs/Day Years Used Date Smoking Tobacco: Never Smokeless Tobacco: Never Alcohol Use Standard Drinks/Week Comments No 0 (1 standard drink = 0.6 oz pure alcoho l) Sex Assigned at Date Recorded Not on file documented as of this encounter Progress Notes Raman Wilkins, PT - 04/10/2011 11:01 AM CDT PROGRESS NOTE FOR Simon Castillo Subjective report: Patient reports that he still wears his brace for protection and that the is pleased with his progress with his shoulder and that he will be seeing on Apr 17 for recheck and that he still has to be careful at night with his shoulder because he is an active sleeper and has concerns if he is moving his arm too much Pain ratin/10 Functional status: Patient is in [...] involved / shoulder supine passive flexion is 90 degrees, passive abduction is 40 degrees and [...] rom with emphasis onflexion and he achieves 90 degrees of passive flexion and his er is neutral With numerous verbal cues to relax and he does work with exercises for 30 minutes with his passive rom activitieis 3.Ice pack is given post treatment x [...] depending on patients status with achieving goals and will also start a letter to physician because he will be seeing him for recheck next weeks Is patient achieving their goals following the [...] Procedures Routine Other physical t herapy Ordered: 04/10/2011 TECH,1+REGIONS,EA 15 Unspecified disorder s MIN of bursae and tendons in shoulder kasia on Shoulder pain THERAPEUTIC EXERCISES Procedures Routine Other phys ical therapy Ordered: 04/10/2011 Unspecified disorders of bursae and tendons in shoulder kasia on Shoulder pain documented as of this encounter Visit Diagnoses Diagnosis Other physical therapy - Primary Unspecified disorders of bursae and tend ons in shoulder region Disorders of bursae and tendons in shoul brittnee region, unspecified Shoulder pain Pain in joint, shoulder region documented in this encounter Care Teams Shingle Shearing Machine Operator Relationship Specialty Start Date End Date Deirdre Bedolla MD PCP - General Family Medicine 03/30/11 04/30/112023 [address] [address] documented as of this encounter
--- OUTSIDE RECORDS SUMMARY | 2022-06-07 21:03 | XMS_ITS | Encounter Summary ---
:1935 Author Organization [employer] Address [address] [place] [address] Phone Care Team Providers Name Role Phone Deirdre Bedolla MD Primary Care Provider [phone] Encounter Details Date Type Department Care Team Description 06/15/2011 Office Visit [facility] Raman Wilkins, PT Other physical therapy (Primary Dx); Center Bank Analyst - [address] [facility] [address] D isorders of bursae and tendons in shoulder region, unspecified; Re[facility] [place] Shoulder pain [address] [place] [address] [address] [place] [address] Social History Tobacco Use Types Packs/Day Years Used Date Smoking Tobacco: Never Smokeless Tobacco: Never Alcohol Use Standard Drinks/Week Comments No 0 (1 standard drink = 0.6 oz pure alcoho l) Sex Assigned at Date Recorded Not on file documented as of this encounter Progress Notes Raman Wilkins, PT - 06/15/2011 10:39 AM CST PROGRESS NOTE FOR Simon Castillo Subjective report: Patient reports that he is still finding that he has been laying on his shoulder and that he does have pain with it from this Pain ratin/10 Functional status: Patient is [...] gentle level and he also progressed to 4 ounces for his scapular stabilization exercises at [...] and he is able to progress to 4 ounces for strengthening program Communication/education: Emphasis has [...] shoulder and he will also work with 4 ounces for exercises and we will continue to put emphasis on being careful withprogressions and he will also try to not [...] time: 60 minutes Provider: Raman Wilkins PT PROGRESS NOTE FOR Simon Castillo Subjective report: Patient reports that he is doing light resistance with his exercises with minimalcomplaints and that he did lift a 1/2 gallon of milk Pain ratin/10 Functional status: Patient is out of his brace and is eating with his hand and is dressing with lessdifficulty but he is in the active asst phase of his rehab and needs to be careful and since his last check with physician he is now doing active rom and he has been able to progress to 4-8 ounces fro his supine rtc program and [...] gentle level and he also progressed to 8 ounces for his scapular stabilization exercises [...] and he is able to progress to 8 ounces for strengthening program Communication/education: Emphasis has [...] progress to light resistance ie 8 ounces and he is also able to theraband isotonics for scapular stabilization ie retraction Total treatment time: 60 minutes Provider: Raman Wilkins PT ASS TRIMMER documented in this encounter Plan of Treatment Not on filedocumented as of this encounter Procedures Procedure Name Priority Date/Time Associated Diagnosis Comme nts MANUAL THER Routine 06/15/2011 12:07 PM Other physic al occupational therapy asst,1+REGIONS,EA 15 MIN CARCASS TRIMMER Disorders of bur matteo and tendons in shoulder region, unspecified Shoulder pain THERAPEUTIC EXERCISES Routine 06/15/2011 12:07 PM Other physical therapy CARCASS TRIMMER Disorders of bursae and tendons in shoulder region, unspecified Shoulder pain ULTRASOUND THERAPY Routine 06/15/2011 12:07 PM Other phy sical therapy CARCASS TRIMMER Disorders of bursae and tendons in shoulder region, unspecified Shoulder pain documented in this encounter Visit Diagnoses Diagnosis Other physical therapy - Primary Disorders of bursae and tendons in shoul brittnee region, unspecified Shoulder pain Pain in joint, shoulder region documented in this encounter Orders Procedures Count Last Ordered Date First Ordered Date MANUAL THER TECH,1+REGIONS,EA 15 MIN 1 06/15/2011 THERAPEUTIC EXERCISES 1 06/15/2011 ULTRASOUND THERAPY 1 06/15/2011 documented in this encounter Care Teams Solar Energy Engineer Relationship Specialty Start Date End Date Deirdre Bedolla MD PCP - General Family Medicine 06/04/11 01/03/[address] [address] documented as of this encounter
--- OUTSIDE RECORDS SUMMARY | 2022-06-07 21:03 | XMS_ITS | Encounter Summary ---
:1935 Author Organization [facility] Address [address] [address] Phone Care Team Providers Name Role Phone Deirdre Bedolla MD Primary Care Provider [phone] Encounter Details Date Type Department Care Team Description 01/05/2011 Orders Only [place] [facility] [place] Diabetes (Primary Dx) CLINIC FAMILY Deirdre Mosher MD MEDICINE 2023 [facility] 2023 [place] [address] [place], [place] [address] [phone] Social History Tobacco Use Types Packs/Day Years Used Date Smoking Tobacco: Never Smokeless Tobacco: Never Alcohol Use Standard Drinks/Week Comments No 0 (1 standard drink = 0.6 oz pure alcoho l) Sex Assigned at Date Recorded Not on file documented as of this encounter Plan of Treatment Not on filedocumented as of this encounter Results (ABNORMAL) A1C(HGB AIC) (01/10/2011 8:11 AM CDT) P athologist Signature A1C (HGB AIC) 6.1 (H) 0.0 - 6.0 [facility] % [facility] Specimen Anatomical Collection Method Collection Time Receive d Time (Source) Location / / Volume Laterality 01/10/2011 8:11 AM 1 8:32 CDT AM CDT Narrative [facility] - 01/10/2011 9:22 AM CDT Non-fasting patient Deirdre Bedolla MD EC CHEMISTRY ORDERABLES A BN Performing Organization Address City/State/ZIP Code Phon e Number LABORATORY AST (01/10/2011 8:11 AM CDT) athologist Signature AST(SGOT) 25 0 - 40 IU/L LABORATORY Specimen Anatomical Collection Method Collection Time Receive d Time (Source) Location / / Volume Laterality 01/10/2011 8:11 AM 1 8:53 CDT AM CDT Narrative LABORATORY - 01/10/2011 9:31 AM CDT Non-fasting patient Deirdre Bedolla MD EC CHEMISTRY ORDERABLES Performing Organization Address City/[facility]/ZIP Code Phon e Number LABORATORY (ABNORMAL) BASIC MET PROF (01/10/2011 8:11 AM CDT) athologist Signature SODIUM 139 136 - 144 [place] mEq/L [facility] POTASSIUM 4.0 3.4 - 4.6 [place] mEq/L [facility] Chloride 104 98 - 107 [place] mEq/L [facility] CO2 26 22 - 32 [place] mEq/L [facility] BUN 26 (H) 8 - 23 [place] mg/dL [facility] Creatinine 1.10 0.60 - 1.20 [place] mg/dL [facility] GFR CALC >60 LABORATORY Comment: GFR Normal: >60 mL/min/1.73 m2 Calcium 9.3 8.8 - 10.4 mg/dL LABO RATORY ANION GAP 13.0 LABORATORY GLUCOSE 133 (H) 70 - 99 mg/dL LABORAT ORY Specimen Anatomical Collection Method Collection Time Receive d Time (Source) Location / / Volume Laterality 01/10/2011 8:11 AM 1 8:53 CDT AM CDT Narrative LABORATORY - 01/10/2011 9:31 AM CDT Non-fasting patient Deirdre Bedolla MD EC CHEMISTRY ORDERABLES Performing Organization Address City/[facility]/ZIP Code Phon e Number LABORATORY (ABNORMAL) LIPID PROFILE (01/10/2011 8:11 AM CDT) athologist Signature Cholesterol 136 100 - 200 [place] mg/dL [facility]ATORY Comment: Total Cholesterol Reference Ranges Desirable: ? <200 ?mg/dL Borderline High: ?? 200-239 mg/dL High: ?>239 ?mg/ dL TRIGLYCERIDE 277 (H) 35 - 150 mg/dL [facility] HDL CHOLESTEROL 26 (L) 35 - 55 mg/dL [facility] LDL- CALCULATED 55 1 - 130 mg/dL [facility] Specimen Anatomical Collection Method Collection Time Receive d Time (Source) Location / / Volume Laterality 01/10/2011 8:11 AM 1 8:53 CDT AM CDT Narrative [facility] - 01/10/2011 9:31 AM CDT Non-fasting patient Deirdre Bedolla MD EC CHEMISTRY ORDERABLES A BN Performing Organization Address City/State/ZIP Code Phon e Number LABORATORY documented in this encounter Visit Diagnoses Diagnosis Diabetes - Primary Type II or unspecified type diabetes cindy litus without mention of complication, not stated as uncontrolled documented in this encounter Care Teams Day Care Center Director Relationship Specialty Start Date End Date Deirdre Bedolla MD PCP - General Family Medicine 12/15/10 01/14/112023 [address] [id number] documented as of this encounter
--- OUTSIDE RECORDS SUMMARY | 2022-06-07 21:03 | XMS_ITS | Encounter Summary ---
:1935 Author Organization [employer] [facility] Address [address] [address] Phone Care Team Providers Name Role Phone Deirdre Bedolla MD Primary Care Provider [phone] Reason for Visit Reason Comments Other prior auth sent Encounter Details Date Type Department Care Team Description 03/07/2011 Notes [facility] Danna Cervantes , Other (prior auth sent) [facility] 2023 [facility] [place], [place] [address] Social History Tobacco Use Types Packs/Day Years Used Date Smoking Tobacco: Never Smokeless Tobacco: Never Alcohol Use Standard Drinks/Week Comments No 0 (1 standard drink = 0.6 oz pure alcoho l) Sex Assigned at Date Recorded Not on file documented as of this encounter Progress Notes Danna Cervantes LPN - 03/07/2011 11:32 AM CDT Prior auth for glumetza sent to [facility]. documented in this encounter Plan of Treatment Not on filedocumented as of this encounter Visit Diagnoses Not on filedocumented in this encounter Care Teams Skatesman Relationship Specialty Start Date End Date Deirdre Bedolla MD PCP - General Family Medicine 02/26/11 03/29/112023 [address] [place] [address] documented as of this encounter
--- OUTSIDE RECORDS SUMMARY | 2022-06-07 21:03 | XMS_ITS | Encounter Summary ---
:1935 Author Organization [facility] [facility] Address [address] [place] [address] Phone Care Team Providers Name Role Phone Deirdre Bedolla MD Primary Care Provider [phone] Encounter Details Date Type Department Care Team Description 06/12/2011 Office Visit [facility] Raman Wilkins, PT Other physical therapy (Primary Dx); Center Stone Splitter - [address] [facility] [address] D isorders of bursae and tendons in shoulder region, unspecified; Re[facility] Shoulder pain [address] [place] [place] [address] [address] [place] [address] Social History Tobacco Use Types Packs/Day Years Used Date Smoking Tobacco: Never Smokeless Tobacco: Never Alcohol Use Standard Drinks/Week Comments No 0 (1 standard drink = 0.6 oz pure alcoho l) Sex Assigned at Date Recorded Not on file documented as of this encounter Progress Notes Raman Wilkins, PT - 06/12/2011 11:41 AM CST PROGRESS NOTE FOR Simon Castillo [...] space and surgical incision site with one sadya hertz sound head at .8 w/cm2 x [...] time: 60 minutes Provider: Raman Wilkins PT CS TECHNICAL OFFICER documented in this encounter Plan of Treatment Not on filedocumented as of this encounter Procedures Procedure Name Priority Date/Time Associated Diagnosis Comme nts MANUAL THER Routine 06/12/2011 2:55 PM Other physica l recreation therapy aides teacher,1+REGIONS,EA 15 MIN OPTICS TECHNICAL OFFICER Disorders of bur matteo and tendons in shoulder region, unspecified Shoulder pain THERAPEUTIC EXERCISES Routine 06/12/2011 2:55 PM Other p hysical therapy OPTICS TECHNICAL OFFICER Disorders of bursae and tendons in shoulder region, unspecified Shoulder pain ULTRASOUND THERAPY Routine 06/12/2011 2:55 PM Other phys ical therapy OPTICS TECHNICAL OFFICER Disorders of bursae and tendons in shoulder region, unspecified Shoulder pain documented in this encounter Visit Diagnoses Diagnosis Other physical therapy - Primary Disorders of bursae and tendons in shoul brittnee region, unspecified Shoulder pain Pain in joint, shoulder region documented in this encounter Orders Procedures Count Last Ordered Date First Ordered Date MANUAL THER TECH,1+REGIONS,EA 15 MIN 1 06/12/2011 THERAPEUTIC EXERCISES 1 06/12/2011 ULTRASOUND THERAPY 1 06/12/2011 documented in this encounter Care Teams Nuclear Process Engineer Relationship Specialty Start Date End Date Deirdre Bedolla, MD PCP - General Family Medicine 06/04/11 01/03/[address] [address] documented as of this encounter
--- OUTSIDE RECORDS SUMMARY | 2022-06-07 21:03 | XMS_ITS | Encounter Summary ---
:1935 Author Organization [employer] [facility] Address [address] [place] [address] Phone Care Team Providers Name Role Phone Deirdre Bedolla MD Primary Care Provider [phone] Encounter Details Date Type Department Care Team Description 04/18/2011 Office Visit [facility] Raman Wilkins, PT Other physical therapy (Primary Dx); Center Mining Technician - 3 [facility] nspecified disorders of bursae and tendons in shoulder region; Rehab Out[facility] Shoulder pain 2016 [facility] [address] [place] [address] Social History Tobacco Use Types Packs/Day Years Used Date Smoking Tobacco: Never Smokeless Tobacco: Never Alcohol Use Standard Drinks/Week Comments No 0 (1 standard drink = 0.6 oz pure alcoho l) Sex Assigned at Date Recorded Not on file documented as of this encounter Progress Notes Raman Wilkins, PT - 04/18/2011 12:12 PM CDT PROGRESS NOTE FOR Simon Castillo Subjective report: Patient reports that he did see Dr. Duffy for recheck and that he was pleased withhis progress and gave the ok to begin going without the abduction pillow and also to work with weaning off sling and that he could progress into next phase of rehab after 6 weeks and that he will be at6 weeks post op on 04/26 Pain ratin/10 Functional status: Patient is in [...] passive flexion is 105 degrees, passive abductionis 40 degrees and ER is 0 degrees [...] at .8 w/cm2 x 8 minutes with pulsed 50%setting with no pain 2.Skilled manual therapy techniques [...] rom with emphasis onflexion and he achieves 105 degrees of passive flexion and his er is neutral With numerous verbal cues to relax and he does work with exercises for 20 minutes with his passive rom activitieis 3.Ice pack is given post treatment x 10 minutes to decrease swelling, decrease post inflammatory soreness 4. Patients also works with supine passive flexion on therapist because after 6 weeks she will be able to help with his shoulder rom Response to treatment: Good with no signicant [...] will be seeing him for recheck next week appt Is patient achieving their goals following the [...] Procedures Routine Other physica l therapy Ordered: 04/18/2011 Unspecified disorders of bursae and tendons in shoulder kasia on Shoulder pain MANUAL THER Procedures Routine Other physical t herapy Ordered: 04/18/2011 TECH,1+REGIONS,EA 15 Unspecified disorder s MIN of bursae and tendons in shoulder kasia on Shoulder pain THERAPEUTIC EXERCISES Procedures Routine Other phys ical therapy Ordered: 04/18/2011 Unspecified disorders of bursae and tendons in shoulder kasia on Shoulder pain documented as of this encounter Visit Diagnoses Diagnosis Other physical therapy - Primary Unspecified disorders of bursae and tend ons in shoulder region Disorders of bursae and tendons in shoul brittnee region, unspecified Shoulder pain Pain in joint, shoulder region documented in this encounter Care Teams Housing Installer Relationship Specialty Start Date End Date Deirdre Bedolla MD PCP - General Family Medicine 03/30/11 04/30/112023 [address] [address] documented as of this encounter
--- OUTSIDE RECORDS SUMMARY | 2022-06-07 21:03 | XMS_ITS | Encounter Summary ---
:1935 Author Organization [employer] [facility] Address [address] [address] Phone Care Team Providers Name Role Phone Deirdre Bedolla MD Primary Care Provider [phone] Reason for Visit Reason Onset Date Comments Refill Request 03/05/2011 Encounter Details Date Type Department Care Team Description 03/05/2011 Refill [facility] Anitra Hearn L PN Refill Request Pulmonology 2023 [place], [place] [address] Social History Tobacco Use Types Packs/Day Years Used Date Smoking Tobacco: Never Smokeless Tobacco: Never Alcohol Use Standard Drinks/Week Comments No 0 (1 standard drink = 0.6 oz pure alcoho l) Sex Assigned at Date Recorded Not on file documented as of this encounter Ordered Prescriptions Prescription Sig Dispensed Refills Start Date End Date metFORMIN SR modified Take 1 Tab by mouth 180 Tab 0 03/0503/16/2011 release (GLUMETZA) 1000 two times a day [...] SR modified Take 1 Tab by mouth. 12/29/2010 03/05/2011 release (GLUMETZA) 1000 Swallow tablet MG (MOD) 24 hour tablet whole; do not crush, divide or chew. Take one tab in am and two tabs in pm. documented as of this encounter Care Teams Stop Attacher Relationship Specialty Start Date End Date Deirdre Bedolla MD PCP - General Family Medicine 02/26/11 03/29/112023 [address] [address] documented as of this encounter
--- OUTSIDE RECORDS SUMMARY | 2022-06-07 21:03 | XMS_ITS | Encounter Summary ---
:1935 Author Organization [employer] [facility] Address [address] [place] [address] Phone Care Team Providers Name Role Phone Deirdre Bedolla MD Primary Care Provider [phone] Encounter Details Date Type Department Care Team Description 04/20/2011 Office Visit [facility] Raman Wilkins, PT Other physical therapy (Primary Dx); Center Bank Boss - 3 [facility] nspecified disorders of bursae and tendons in shoulder region; Re[facility] [place] Shoulder pain 2016 [facility] [address] [place] [address] Social History Tobacco Use Types Packs/Day Years Used Date Smoking Tobacco: Never Smokeless Tobacco: Never Alcohol Use Standard Drinks/Week Comments No 0 (1 standard drink = 0.6 oz pure alcoho l) Sex Assigned at Date Recorded Not on file documented as of this encounter Progress Notes Raman Wilkins, PT - 04/20/2011 12:39 PM CDT PROGRESS NOTE FOR Simon Castillo Subjective report: Patient reports that his did work with his prom at home and that he felt it went ok and that next week he will be at 6 weeks post op Pain ratin/10 Functional status: Patient is in [...] Procedures Routine Other physica l therapy Ordered: 04/20/2011 Unspecified disorders of bursae and tendons in shoulder kasia on Shoulder pain MANUAL THER Procedures Routine Other physical t herapy Ordered: 04/20/2011 TECH,1+REGIONS,EA 15 Unspecified disorder s MIN of bursae and tendons in shoulder kasia on Shoulder pain THERAPEUTIC EXERCISES Procedures Routine Other phys ical therapy Ordered: 04/20/2011 Unspecified disorders of bursae and tendons in shoulder kasia on Shoulder pain documented as of this encounter Visit Diagnoses Diagnosis Other physical therapy - Primary Unspecified disorders of bursae and tend ons in shoulder region Disorders of bursae and tendons in shoul brittnee region, unspecified Shoulder pain Pain in joint, shoulder region documented in this encounter Care Teams Senior Publications Specialist Relationship Specialty Start Date End Date Deirdre Bedolla MD PCP - General Family Medicine 03/30/11 04/30/112023 [address] [address] documented as of this encounter
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
--- OUTSIDE RECORDS SUMMARY | 2022-06-07 21:03 | XMS_ITS | Encounter Summary ---
:1935 Author Organization [employer] [facility] Address [address] [address] Phone Care Team Providers Name Role Phone Deirdre [place] MD Primary Care Provider [phone] Reason for Visit Reason Comments Refill Request Encounter Details Date Type Department Care Team Description 05/09/2011 Refill [facility] Mabel [place] Refill Request [facility]ILY [facility]ICINE [facility] [address] [address] [place], [place] [address] (Wo rk) Social History Tobacco Use Types Packs/Day Years Used Date Smoking Tobacco: Never Smokeless Tobacco: Never Alcohol Use Standard Drinks/Week Comments No 0 (1 standard drink = 0.6 oz pure alcoho l) Sex Assigned at Date Recorded Not on file documented as of this encounter Ordered Prescriptions Prescription Sig Dispensed Refills Start Date End Date vardenafil (LEVITRA) 10 TAKE 1 OR 2 TABLETS 1 5 Tab 0 1 07/09/2010 07/24/2011 MG tablet HOUR PRIOR TO INTERCOURSE documented in this encounter Plan of Treatment Not on filedocumented as of this encounter Visit Diagnoses Not on filedocumented in this encounter Discontinued Medications Medication Sig Discontinue Reason Start Date End Date vardenafil (LEVITRA) Take 1 Tab by mouth 12/28/2010 05/09/2011 10 MG tablet one time as needed for Erectile dysfunction for 1 dose. documented as of this encounter Care Teams Bow Maker Production Relationship Specialty Start Date End Date Deirdre Bed[place] MD PCP - General Family Medicine 05/01/11 06/03/112023 [address] [address] documented as of this encounter
--- OUTSIDE RECORDS SUMMARY | 2022-06-07 21:03 | XMS_ITS | Encounter Summary ---
:1935 Author Organization [employer] Address [address] [address] Phone Care Team Providers Name Role Phone Deirdre [place] MD Primary Care Provider [phone] Reason for Visit Reason Comments Refill Request Encounter Details Date Type Department Care Team Description 03/15/[address] [facility] Mabel [place] Refill Request FAMILY MEDICINE MD Nomi 2023 [facility] [address] [address] [facility] [place] [id number] (Wo rk) Social History Tobacco Use Types [...] on filedocumented in this encounter Care Teams Fishing Manager Relationship Specialty Start Date End Date Deirdre [place] MD PCP - General Family Medicine 02/26/11 03/29/112023 [address] [address] documented as of this encounter
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
--- OUTSIDE RECORDS SUMMARY | 2022-06-07 21:03 | XMS_ITS | Encounter Summary ---
:1935 Author Organization [employer] Address [address] [place] [address] Phone Care Team Providers Name Role Phone Deirdre Bedolla MD Primary Care Provider [phone] Encounter Details Date Type Department Care Team Description 04/13/2011 Office Visit [facility] Raman Wilkins, PT Other physical therapy (Primary Dx); Center Dispensing Operator - [facility] nspecified disorders of bursae and tendons in shoulder region; [facility] [place] Shoulder pain 2016 [facility] [address] [place] [address] Social History Tobacco Use Types Packs/Day Years Used Date Smoking Tobacco: Never Smokeless Tobacco: Never Alcohol Use Standard Drinks/Week Comments No 0 (1 standard drink = 0.6 oz pure alcoho l) Sex Assigned at Date Recorded Not on file documented as of this encounter Progress Notes Raman Wilkins, PT - 04/13/2011 12:51 PM CDT PROGRESS NOTE FOR Simon Castillo Subjective report: Patient reports that still has issues with sling and that he is at 4 weeks with his shoulder status and that he is anxious to see physician next week for recheck Pain ratin/10 Functional status: Patient is in [...] involved / shoulder supine passive flexion is 99 degrees, passive abduction is 44 degrees and ER is 0 degrees with [...] rom with emphasis onflexion and he achieves 95 degrees of passive flexion and his er [...] Procedures Routine Other physica l therapy Ordered: 04/13/2011 Unspecified disorders of bursae and tendons in shoulder kasia on Shoulder pain MANUAL THER Procedures Routine Other physical t herapy Ordered: 04/13/2011 TECH,1+REGIONS,EA 15 Unspecified disorder s MIN of bursae and tendons in shoulder kasia on Shoulder pain THERAPEUTIC EXERCISES Procedures Routine Other phys ical therapy Ordered: 04/13/2011 Unspecified disorders of bursae and tendons in shoulder kasia on Shoulder pain documented as of this encounter Visit Diagnoses Diagnosis Other physical therapy - Primary Unspecified disorders of bursae and tend ons in shoulder region Disorders of bursae and tendons in shoul brittnee region, unspecified Shoulder pain Pain in joint, shoulder region documented in this encounter Care Teams Project Landscape Architect Relationship Specialty Start Date End Date Deirdre Bedolla MD PCP - General Family Medicine 03/30/11 04/30/112023 [address] [address] documented as of this encounter
--- OUTSIDE RECORDS SUMMARY | 2022-06-07 21:03 | XMS_ITS | Encounter Summary ---
:1935 Author Organization [employer] Address [address] [address] Phone Care Team Providers Name Role Phone Deirdre Bedolla MD Primary Care Provider [phone] Reason for Visit Reason Comments Other prior auth approved Encounter Details Date Type Department Care Team Description 03/13/2011 Notes [facility] Danna Cervantes , Other (prior auth GI RAG GRADER approved) 2023 [facility] [place] [address] Social History Tobacco Use Types Packs/Day Years Used Date Smoking Tobacco: Never Smokeless Tobacco: Never Alcohol Use Standard Drinks/Week Comments No 0 (1 standard drink = 0.6 oz pure alcoho l) Sex Assigned at Date Recorded Not on file documented as of this encounter Progress Notes Danna Cervantes LPN - 03/13/2011 8:43 AM CDT Prior auth approved for glumetza for 3 tabs per day thru 03-05-2012. documented in this encounter Plan of Treatment Not on filedocumented as of this encounter Visit Diagnoses Not on filedocumented in this encounter Care Teams Material Handling Technician Relationship Specialty Start Date End Date Deirdre Bedolla MD PCP - General Family Medicine 02/26/11 03/29/112023 [address] [place] [address] documented as of this encounter
--- OUTSIDE RECORDS SUMMARY | 2022-06-07 21:03 | XMS_ITS | Encounter Summary ---
:1935 Author Organization [email or web address] Address [address] [address] Phone Care Team Providers Name Role Phone Deirdre Bedolla MD Primary Care Provider [phone] Deirdre Bedolla MD Primary Care Provider [phone] Deirdre Bedolla MD Primary Care Provider [phone] Reason for Visit Reason Onset Date Comments Refill Request 12/29/2010 Encounter Details Date Type Department Care Team Description 12/29/2010 Refill [facility] Allergy Murali Wing LPN Refill Request 2023 [facility] [place] [id number] Social History Tobacco Use Types Packs/Day Years Used Date Smoking Tobacco: Never Smokeless Tobacco: Never Alcohol Use Standard Drinks/Week Comments No 0 (1 standard drink = 0.6 oz pure alcoho l) Sex Assigned at Date Recorded Not on file documented as of this encounter Ordered Prescriptions Prescription Sig Dispensed Refills Start Date End Date metFORMIN (GLUCOPHAGE) Take 1 Tab by mouth 180 Tab 0 12/0703/16/2011 1000 MG tablet two times a day (breakfast and supper). documented in this encounter Plan of Treatment Not on filedocumented as of this encounter Visit Diagnoses Not on filedocumented in this encounter Discontinued Medications Medication Sig Discontinue Reason Start Date End Date vardenafil (LEVITRA) 10 Take 1 Tab by mouth Duplicate Medication 12/29/2010 MG tabletIndications: one time as needed Impotence due to for Erectile erectile dysfunction dysfunction. metFORMIN (GLUCOPHAGE) Take 1 Tab by mouth 12/28/2010 12/29/2010 1000 MG tablet two times a day (breakfast and supper). documented as of this encounter Care Teams Health Care Marketing Manager Relationship Specialty Start Date End Date Deirdre Bedolla MD PCP - General Family Medicine 12/15/10 01/14/112023 [address] [address] Deirdre Bedolla MD PCP - General Family Medicine 01/15/11 02/25/112023 [address] [address] Deirdre Bedolla MD PCP - General Family Medicine 02/26/11 03/29/112023 [address] [id number] documented as of this encounter
--- OUTSIDE RECORDS SUMMARY | 2022-06-07 21:04 | XMS_ITS | Encounter Summary ---
:1935 Author Organization [employer] Address [address] [address] Phone Care Team Providers Name Role Phone Deirdre Bedolla MD Primary Care Provider [phone] Encounter Details Date Type Department Care Team Description 05/12/2006 Orders Only HISTORY DEPARTMENT Gonzalo Cruz MD [facility] [address] [place] [address] (Wo rk) Social History Tobacco Use Types Packs/Day Years Used Date Smoking Tobacco: Never Assessed Sex Assigned at Date Recorded Not on file documented as of this encounter Ordered Prescriptions Prescription Sig Dispensed Refills Start Date End Date hydrochlorothiazide 25 MG 25, mg, ORAL, 25.000 0 006 11/16/2010 tablet DAILY, 0, 0, 05/12/06 3:25:38, Substitution Permitted, current med (Hx), Constant Indicator LIPITOR 20 MG tablet 20, mg, ORAL, 20.000 0 05/12/2006 0 11/19/2011 DAILY, 0, 0, 05/12/06 3:24:26, Substitution Permitted, current med (Hx), Constant Indicator atenolol (TENORMIN) 50 MG 50, mg, ORAL, 50.000 0 006 06/23/2012 tablet DAILY, 0, 0, 05/12/06 3:23:34, Substitution Permitted, current med (Hx), Constant Indicator documented in this encounter Plan of Treatment Not on filedocumented as of this encounter Procedures Procedure Name Priority Date/Time Associated Diagnosis Comme nts XR PORT CHEST 1 Routine 05/12/2006 4:05 AM Result s for this VIEW [employer] procedure are i n the results section. documented in this encounter Results XR PORT CHEST 1 VIEW (05/12/2006 4:05 AM [employer]) Anatomical Region Laterality Modality Chest Other Specimen (Source) Anatomical Collection Method Collection Time Re ceived Time Location / / Volume Laterality 05/12/2006 4:05 AM [employer] Impressions 05/12/2006 4:05 AM [employer] ?NORMAL CHEST EXAM. Dictating Radiologist Nick Keys MD Electronically Signed By: Lizbet Keys MD Date & Time Signed: 05/12/06 11:08:14 AMK ? Date & Time Transcrib ed: 05/12/06 09:44:29 Narrative 05/12/2006 4:05 AM [employer] ?The lungs are normally expanded and clear. ??The heart, pulmonary vasculature and mediastinum are normal i n contour. ??The bones are unremarkable. Procedure Note 11/02/2010 The lungs are normally expanded and papi ar. The heart, pulmonary vasculature and mediastinum are normal in contour. The bones are unremarkable. IMPRESSION: NORMAL CHEST EXAM. Dictating Radiologist Nick Keys MD Electronically Signed By: Lizbet Keys MD Date & Time Signed: 05/12/06 11:08:14 AMK Date & Time Transcribed: 05/12/06 09 :44:29 Gonzalo Cruz MD EC DIAGNOSTIC IMAGING ORDERA BLES documented in this encounter Visit Diagnoses Not on filedocumented in this encounter Care Teams Finishing Wire Sawyer Relationship Specialty Start Date End Date Deirdre Bedolla MD PCP - General 10/19/08 07/27/09[address] [address] documented as of this encounter
--- OUTSIDE RECORDS SUMMARY | 2022-06-07 21:04 | XMS_ITS | Encounter Summary ---
:1935 Author Organization [employer] Address [address] [address] Phone Care Team Providers Name Role Phone Deirdre Bedolla MD Primary Care Provider [phone] Encounter Details Date Type Department Care Team Description 12/15/2001 Orders Only [facility] elva Skip Min MD 2023 [facility] eet [address] [address] [place], [place] [address] (Wo rk) Social History Tobacco Use Types Packs/Day Years Used Date Smoking Tobacco: Never Assessed Sex Assigned at Date Recorded Not on file documented as of this encounter Plan of Treatment Not on filedocumented as of this encounter Procedures Procedure Name Priority Date/Time Associated Diagnosis Comme nts PATHOLOGY SPEC Routine 12/15/2001 8:35 AM Results for this CDT procedure are i n the results section . documented in this encounter Results PATHOLOGY SPEC (12/15/2001 8:35 AM CDT) Component Value Ref Test Analysis Performed At [facility] Range Method Time Signature Clinical Specimen: CECAL BASE POLYP [facility] Information LABORATORY Pre-Op Diagnosis: NONE GIVEN Post-Op Diagnosis: NONE GIVEN Gross The specimen is [facility] Description received in a LABORATORY container labeled with the patient's name, 10% formalin, and cecal base polyp. The specimen consists of four fragments of light brown material. They range in size from .2 to .5 cm in largest dimension. All embedded. Microscopic The specimen [facility] Description consists of LABORATORY some fragments of debris like material and some fragments of colonic mucosa. At least two of these pieces have changes like hyperplastic polyp. Diagnosis Hyperplastic polyp(s), benign. [facility] Signing Pathologist: ??Mabel NAVARRO MD LABORATORY (Electronic Signature) Date and Time Signed: ??12/16/01 1:54 LLG ?? Date and Time Transcribed: ??12/16/01 1:54 Specimen (Source) Anatomical Collection Method Collection Time Re ceived Time Location / / Volume Laterality 12/15/2001 8:35 AM CDT Skip Espinosa MD EC PATHOLOGY ORDERABLES Performing Organization Address City/State/ZIP Code Phon e Number [facility] [address] [address] LABORATORY [facility] documented in this encounter Visit Diagnoses Not on filedocumented in this encounter Care Teams Mill Attendant Relationship Specialty Start Date End Date Deirdre Bedolla MD PCP - General 10/19/08 07/27/09[address] [id number] documented as of this encounter
--- OUTSIDE RECORDS SUMMARY | 2022-06-07 21:04 | XMS_ITS | Encounter Summary ---
:1935 Author Organization [employer] Address [address] [address] Phone Care Team Providers Name Role Phone Deirdre Bedolla MD Primary Care Provider [phone] Encounter Details Date Type Department Care Team Description 10/31/2007 Orders Only [facility] Christin Richmond MD EMERGENCY DEPARTMENT [address] [place] [address] [place], [place] [address] [phone] Social History Tobacco Use Types Packs/Day Years Used Date Smoking Tobacco: Never Assessed Sex Assigned at Date Recorded Not on file documented as of this encounter Plan of Treatment Not on filedocumented as of this encounter Procedures Procedure Name Priority Date/Time Associated Diagnosis Comme nts CT CERVICAL SPINE Routine 10/31/2007 6:35 PM Resu lts for this WO IV CONTRAST CDT procedure are in the results section. documented in this encounter Results CT CERVICAL SPINE WO CONTRAST (10/31/2007 6:35 PM CDT) Anatomical Region Laterality Modality C-Spine, Spine Other Specimen (Source) Anatomical Collection Method Collection Time Re ceived Time Location / / Volume Laterality 10/31/2007 6:35 PM CDT Narrative 10/31/2007 6:35 PM CDT ?TECHNIQUE: Axial cuts were obtained through the cervical spine. Sagittal and coronal images were reconstructed. FINDINGS: ??There are fractures involvin g the posterior elements at C6. There is a displaced fracture of the right lamina. There is a 11 mm bony spicule which is displaced into the spinal canal and appe ars to be immediately adjacent to the ri ght lateral aspect of the spinal cord. Injury to the cord cannot be excluded as there is limited visualization of the soft tissues on this exam. There is also a fracture of the left lamina which does not demonstrat e displacement. A non-displaced fracture is also demonstrated involving the superior esther culating facet of C7. No additional fractures are demonstrated . There is no vertebral subluxation. There are advanced degenerative changes involving the disc spaces of C4/5-6/7. Facet arthropathy is also demonstrated at these levels which contributes to moderate sites of foraminal stenosis bilaterally. There ar e chronic degenerative findings at the C1/C2 articulation. There are small spicules of bone near the C1/C2 articulation anteriorly which are related to degenerative findings. ?1. ??Bilaterally fractures of t he lamina at C6. On the right there is a displaced bone spicule into the spinal canal which appears to lie immediately adjacent to the spinal cord at this level. In addition, there is a non-displaced fr acture involving the left superior articulating facet of C7. 2. ??Cervical spondylosis. Dictating Radiologist Yasmani Rebolledo MD Electronically Signed By: Cale Rebolledo MD Date & Time Signed: 11/02/07 09:19:48 LSB ? Date & Time Transcrib ed: 10/31/07 22:11:54 Procedure Note 11/03/2010 TECHNIQUE: Axial cuts were obtained thr ough the cervical spine. Sagittal and coronal images were reconstructed. FINDINGS: There are fractures involving the posterior elements at C6. There is a displaced fracture of the right lamina. There is a 11 mm bony spicule which is displaced into the spinal canal and appears to be immediately adjacent to the right latera l aspect of the spinal cord. Injury to the cord cannot be excluded as there is limited visualization of the soft tissues on this exam. There is also a fracture of the left lamina which does not demonstrate displacement. A non-displaced fracture is also demonstrated involving the superior esther culating facet of C7. No additional fractures are demonstrated . There is no vertebral subluxation. There are advanced degenerative changes involving the disc spaces of C4/5-6/7. Facet arthropathy is also demonstrated at these levels which contributes to moderate sites of foraminal stenosis bilaterally. There ar e chronic degenerative findings at the C1/C2 articulation. There are small spicules of bone near the C1/C2 articulation anteriorly which are related to degenerative findings. 1. Bilaterally fractures of the lamina at C6. On the right there is a displaced bone spicule into the spinal canal which appears to lie immediately adjacent to the spinal cord at this level. In addition, there is a non-displaced fracture involving the left superior articulating facet of C7. 2. Cervical spondylosis. Dictating Radiologist Yasmani Rebolledo MD Electronically Signed By: Cale Rebolledo MD Date & Time Signed: 11/02/07 09:19:48 LSB Date & Time Transcribed: 10/31/07 22 :11:54 Christin Richmond MD EC CT ORDERABLES documented in this encounter Visit Diagnoses Not on filedocumented in this encounter Care Teams Technical Document Writer Relationship Specialty Start Date End Date Deirdre Bedolla MD PCP - General 10/19/08 07/27/09[address] [id number] documented as of this encounter
--- OUTSIDE RECORDS SUMMARY | 2022-06-07 21:04 | XMS_ITS | Encounter Summary ---
:1935 Author Organization [employer] Address [address] [address] Phone Care Team Providers Name Role Phone Deirdre Bedolla MD Primary Care Provider [phone] Encounter Details Date Type Department Care Team Description 10/31/2007 Orders Only [facility] Christin Richmond MD EMERGENCY DEPARTMENT [address] [place] [address] [place], [place] [address] [phone] Social History Tobacco Use Types Packs/Day Years Used Date Smoking Tobacco: Never Assessed Sex Assigned at Date Recorded Not on file documented as of this encounter Ordered Prescriptions Prescription Sig Dispensed Refills Start Date End Date terazosin 2 MG capsule 2, mg, ORAL, 0, 0, 2.000 0 10/3001/15/2011 10/31/07 19:51:20, Substitution Permitted, current med (Hx), Constant Indicator DETROL LA 4 MG 24 hour 4, mg, ORAL, DAILY, 0, 4.000 0 0 10/31/2007 11/16/2010 capsule 0, 10/31/07 19:49:50, Substitution Permitted, current med (Hx), Constant Indicator omeprazole (PRILOSEC) 20, mg, ORAL, DAILY, 20.000 0 10/0708/05/2011 20 MG capsule 0, 0, 10/31/07 19:49:28, Substitution Permitted, current med (Hx), Constant Indicator oxaprozin (DAYPRO) 600 600, mg, ORAL, DAILY, 600.000 0 11/09/2010 MG tablet 0, 0, 10/31/07 19:49:04, Substitution Permitted, current med (Hx), Constant Indicator documented in this encounter Plan of Treatment Not on filedocumented as of this encounter Procedures Procedure Name Priority Date/Time Associated Diagnosis Comme nts CT THORACIC SPINE Routine 10/31/2007 6:35 PM Resu lts for this WO IV CONTRAST CDT procedure are in the results section. documented in this encounter Results CT THORACIC SPINE WO CONTRAST (10/31/2007 6:35 PM CDT) Anatomical Region Laterality Modality T-spine, Spine Other Specimen (Source) Anatomical Collection Method Collection Time Re ceived Time Location / / Volume Laterality 10/31/2007 6:35 PM CDT Narrative 10/31/2007 6:35 PM CDT ?Axial cuts were obtained through the thoracic spine. Sagittal and coronal images were reconstructed. FINDINGS: ??The thoracic vertebrae demon strate normal alignment. The vertebral bodies are normal in height. No fractures are seen. The posterior elements are intact. Degenerative disc space narrowing is demonstrated as well as anterior end-plate osteophyte formation at the mid and lowe r thoracic levels. ?1. ??No posttraumatic findings of the thoracic spine are demonstrated. Dictating Radiologist Yasmani Rebolledo MD Electronically Signed By: Cale Rebolledo MD Date & Time Signed: 11/02/07 09:19:48 LSB ? Date & Time Transcrib ed: 10/31/07 22:21:48 Procedure Note 11/03/2010 Axial cuts were obtained through the th oracic spine. Sagittal and coronal images were reconstructed. FINDINGS: The thoracic vertebrae demonst rate normal alignment. The vertebral bodies are normal in height. No fractures are seen. The posterior elements are intact. Degenerative disc space narrowing is demonstrated as well as anterior end-plate osteophyte formation at the mid and lowe r thoracic levels. 1. No posttraumatic findings of the tho racic spine are demonstrated. Dictating Radiologist Yasmani Rebolledo MD Electronically Signed By: Cale Rebolledo MD Date & Time Signed: 11/02/07 09:19:48 LSB Date & Time Transcribed: 10/31/07 22 :21:48 Christin Richmond MD EC CT ORDERABLES documented in this encounter Visit Diagnoses Not on filedocumented in this encounter Care Teams Jewel Bearing Facer Relationship Specialty Start Date End Date Deirdre Bedolla MD PCP - General 10/19/08 07/27/09[address] [address] documented as of this encounter
--- OUTSIDE RECORDS SUMMARY | 2022-06-07 21:04 | XMS_ITS | Encounter Summary ---
:1935 Author Organization [employer] Address [address] [address] Phone Care Team Providers Name Role Phone Deirdre Bedolla MD Primary Care Provider [phone] Reason for Visit Reason Onset Date Comments Results 11/29/2010 Encounter Details Date Type Department Care Team Description 11/29/2010 Telephone [facility] UROLOGY Ines Baum LPN Results [address] [place], [place] [address] Social History Tobacco Use Types Packs/Day Years Used Date Smoking Tobacco: Never Smokeless Tobacco: Never Alcohol Use Standard Drinks/Week Comments Not Asked 0 (1 standard drink = 0.6 oz pure alcoho l) Sex Assigned at Date Recorded Not on file documented as of this encounter Miscellaneous Notes Telephone Encounter - Ines Baum - 11/30/2010 10:40 AM CDT Pt's. notified of PSA results. Telephone Encounter - Ines Baum - 11/30/2010 10:39 AM CDT Message copied by INES BAUM on SatNovember 30, 2010 10:39 AM ------ Message from: GENOVEVA HEATON Created: SatNovember 29, 2010 8:34 AM PSA 2.29 11/16/2010 Please notify pt. of PSA result which is normal. ----- Message ----- From: Interface, Results Sent: 11/16/2010 4:02 PM To: Genoveva Heaton MD Telephone Encounter - Ines Baum - 11/29/2010 11:56 AM CDT Message copied by INES BAUM on SatNovember 29, 2010 11:56 AM ------ Message from: GENOVEVA HEATON Created: SatNovember 29, 2010 8:34 AM PSA 2.29 11/16/2010 Please notify pt. of PSA result which is normal. ----- Message ----- From: Interface, Results Sent: 11/16/2010 4:02 PM To: Genoveva Heaton MD Telephone Encounter - Ines Baum - 11/29/2010 9:54 AM CDT Message copied by INES BAUM on SatNovember 29, 2010 9:54 AM ------ Message from: GENOVEVA HEATON Created: SatNovember 29, 2010 8:34 AM PSA 2.29 11/16/2010 Please notify pt. of PSA result which is normal. ----- Message ----- From: Interface, Results Sent: 11/16/2010 4:02 PM To: Genoveva Heaton MD documented in this encounter Plan of Treatment Not on filedocumented as of this encounter Visit Diagnoses Not on filedocumented in this encounter Care Teams Mold Swabber Relationship Specialty Start Date End Date Deirdre Bedolla MD PCP - General 11/15/10 12/14/[address] [address] documented as of this encounter
--- OUTSIDE RECORDS SUMMARY | 2022-06-07 21:04 | XMS_ITS | Encounter Summary ---
:1935 Author Organization [employer] Address [address] [address] Phone Care Team Providers Name Role Phone Unavailable Primary Care Provider Unavailable Reason for Visit Reason Onset Date Comments Refill Request 11/09/2010 Encounter Details Date Type Department Care Team Description 11/09/2010 Refill [facility] Sa ra Olga Lidia Aguilar LPN Refill Request MEDICINE [address] [facility] [place], [place] [address] Social History Tobacco Use Types Packs/Day Years Used Date Smoking Tobacco: Never Assessed Sex Assigned at Date Recorded Not on file documented as of this encounter Ordered Prescriptions Prescription Sig Dispensed Refills Start Date End Date oxaprozin (DAYPRO) 600 MG Take 1 Tab by 60 Tab 3 011 11/17/2010 tablet mouth two times a day. hydrochlorothiazide 25 MG Take 1 Tab by 90 Tab 3 011 02/25/2012 tablet mouth one time a day. documented in this encounter Plan of Treatment Not on filedocumented as of this encounter Visit Diagnoses Not on filedocumented in this encounter Discontinued Medications Medication Sig Discontinue Reason Start Date End Date LIPITOR 20 MG tablet Take by mouth. Duplicate 05/12/200611/09 Medication atenolol (TENORMIN) 50 MG Take by mouth. Duplicate 05/12/2006 11/09/2010 tablet Medication lisinopril (PRINIVIL, Take by mouth. Duplicate 03/11/2007 0511/2010 ZESTRIL) 20 MG tablet Medication terazosin 2 MG capsule Take by mouth. Duplicate 10/31/200711/2010 Medication DETROL LA 4 MG 24 hour Take by mouth. Duplicate 10/31/200711/2010 capsule Medication ASPIRIN LOW DOSE 81 MG Take by mouth. Duplicate 08/05/200911/2010 tablet Medication oxaprozin (DAYPRO) 600 MG Duplicate 10/31/2007 tablet Medication omeprazole (PRILOSEC) 20 Take by mouth. Duplicate 10/31/2007 0 11/09/2010 MG capsule Medication metFORMIN (GLUCOPHAGE) Take by mouth. Duplicate 08/10/201011/2010 1000 MG tablet Medication hydrochlorothiazide 25 MG 05/12/2006 tablet oxaprozin (DAYPRO) 600 MG 600, mg, ORAL, 10/31/2007 11/09/2010 tablet DAILY, 0, 0, 10/31/07 19:49:04, Substitution Permitted, current med (Hx), Constant Indicator documented as of this encounter
--- OUTSIDE RECORDS SUMMARY | 2022-06-07 21:04 | XMS_ITS | Encounter Summary ---
:1935 Author Organization [email or web address] Address [address] [address] Phone Care Team Providers Name Role Phone Deirdre Bedolla MD Primary Care Provider [phone] Reason for Visit Reason Comments Follow Up pneumonia feeling better Encounter Details Date Type Department Care Team Description 12/15/2010 Office Visit [facility] Linnette Bedolla (Primary CLINIC FAMILY Deirdre Mosher MD Dx) MEDICINE [address] [place] [address] [place] [address] [phone] Social History Tobacco Use Types Packs/Day Years Used Date Smoking Tobacco: Never Smokeless Tobacco: Never Alcohol Use Standard Drinks/Week Comments Not Asked 0 (1 standard drink = 0.6 oz pure alcoho l) Sex Assigned at Date Recorded Not on file documented as of this encounter Last Filed Vital Signs Vital Sign Reading Time Taken Comments Blood Pressure 110/80 12/15/2010 11:33 AM CDT Pulse 64 12/15/2010 11:33 AM CDT Temperature - - Respiratory Rate - - Oxygen Saturation - - Inhaled Oxygen Concentration - - Weight 108.9 kg (240 lb) 12/15/2010 11:33 AM CDT Height 172.7 cm (5' 8) 12/15/2010 11:33 AM CDT Body Mass Index 36.49 12/15/2010 11:33 AM CDT documented in this encounter Patient Instructions Patient InstructionsMaDeirdre Reinoso MD - 12/15/2010 11:59 AM CDT Try a little diet tonic water 1-2 times daily. Your lungs sound great! See me in January. documented in this encounter Ordered Prescriptions Prescription Sig Dispensed Refills Start Date End Date vardenafil (LEVITRA) 20 Take 1 Tab by mouth 20 Tab 4 04/201101/31/2011 MG tablet one time a day as needed for Erectile dysfunction. documented in this encounter Progress Notes Deirdre Bedolla MD - 12/18/2010 6:28 AM CDT [facility] Patient Name: SIOMN CASTILLO Admission Date: 12/15/2010 : 1935 Age: 75Y Patient Location: [facility] FP Dictating Provider: Deirdre Bedolla M.D. PRIMARY CARE NOTE [facility] SUBJECTIVE: Here today for followup of pneumonia. The radiologist ended up reading her as actually having some mild interstitial predominance. They put him on Levaquin. He got better after about 4 days, now having no further cough, no shortness of breath, never did have any chest pains or anything. EXAMINATION: VITAL SIGNS: Vitals as noted in the computer. GENERAL: Pleasant in no acute distress. HEENT: Atraumatic, normocephalic. Conjunctivae are clear. HEART: Regular rhythm. LUNGS: Totally clear. ASSESSMENT AND PLAN: 1. Early pneumonia, resolved. Finish out his course of antibiotics, and I do not anticipate any complications. 2. Erectile dysfunction. I refilled Levitra, 10 mg works for him. Will try 20 and see if it is cheaper for him to cut them in half. He will be seeing me for his diabetic checkup sometime in January. Deirdre Bedolla M.D./ [facility] CC: CDT/ Job ID: [id number] CDT/[facility] Document ID: [id number] Shavonne Villegas LPN - 12/15/2010 11:36 AM CDT Fall Risk No Depression ([place]) [...] as of this encounter Visit Diagnoses Diagnosis Pneumonia - Primary Pneumonia, organism unspecified documented in this encounter Care Teams Cook Vegetable Relationship Specialty Start Date End Date Deirdre Bedolla MD PCP - General Family Medicine 12/15/10 01/14/112023 [address] [address] documented as of this encounter
--- OUTSIDE RECORDS SUMMARY | 2022-06-07 21:04 | XMS_ITS | Encounter Summary ---
:1935 Author Organization [employer] Address [address] [address] Phone Care Team Providers Name Role Phone Deirdre Bedolla MD Primary Care Provider [phone] Encounter Details Date Type Department Care Team Description 10/31/2007 Orders Only HISTORY DEPARTMENT Provider, Hx Social History Tobacco Use Types Packs/Day Years Used Date Smoking Tobacco: Never Assessed Sex Assigned at Date Recorded Not on file documented as of this encounter Ordered Prescriptions Prescription Sig Dispensed Refills Start Date End Date terazosin 2 MG capsule Take by mouth. 2.000 0 8 11/09/2010 DETROL LA 4 MG 24 hour capsule Take by mouth. 4.000 0 0 10/31/2007 11/09/2010 omeprazole (PRILOSEC) 20 MG Take by mouth. 20.000 0 04/2 11/200711/09/2010 capsule oxaprozin (DAYPRO) 600 MG 600.000 0 10/31/2007 11/09/2010 tablet documented in this encounter Plan of Treatment Not on filedocumented as of this encounter Visit Diagnoses Not on filedocumented in this encounter Care Teams Jewel Inspector Relationship Specialty Start Date End Date Deirdre Bedolla MD PCP - General 10/19/08 07/27/09[address] [address] documented as of this encounter
--- OUTSIDE RECORDS SUMMARY | 2022-06-07 21:04 | XMS_ITS | Encounter Summary ---
:1935 Author Organization [employer] Address [address] [address] Phone Care Team Providers Name Role Phone Deirdre Bedolla MD Primary Care Provider [phone] Reason for Visit Reason Onset Date Comments Appointment 12/08/2010 Encounter Details Date Type Department Care Team Description 12/08/2010 Telephone [facility] FAMILY Richie Hudson LPN Appointment MEDICINE [address] [place], [place] [address] Social History Tobacco Use Types Packs/Day Years Used Date Smoking Tobacco: Never Smokeless Tobacco: Never Alcohol Use Standard Drinks/Week Comments Not Asked 0 (1 standard drink = 0.6 oz pure alcoho l) Sex Assigned at Date Recorded Not on file documented as of this encounter Miscellaneous Notes Telephone Encounter - Shavonne Hudson LPN - 12/08/2010 12:59 PM CDT Add on today patient called. Telephone Encounter - Shavonne Hudson LPN - 12/08/2010 12:53 PM CDT Message copied by SHAVONNE HUDSON on SatDec 08, 2010 12:53 PM ------ Message from: BYRON QUIROS Created: SatDec 08, 2010 12:15 PM Contact: Mary Ann-- Plz call--has bad cough--can you see him today? 6-3 8:20am documented in this encounter Plan of Treatment Not on filedocumented as of this encounter Visit Diagnoses Not on filedocumented in this encounter Care Teams Ton Container Shipper Relationship Specialty Start Date End Date Deirdre Bedolla MD PCP - General 11/15/10 12/14/[address] [address] documented as of this encounter
--- OUTSIDE RECORDS SUMMARY | 2022-06-07 21:04 | XMS_ITS | Encounter Summary ---
:1935 Author Organization [employer] Address [address] [address] Phone Care Team Providers Name Role Phone Deirdre Bedolla MD Primary Care Provider [phone] Encounter Details Date Type Department Care Team Description 10/31/[address] [facility] Christin Richmond MD EMERGENCY DEPARTMENT [address] [place] [address] [place], [place] [address] [phone] Social History Tobacco Use Types Packs/Day Years Used Date Smoking Tobacco: Never Assessed Sex Assigned at Date Recorded Not on file documented as of this encounter Plan of Treatment Not on filedocumented as of this encounter Procedures Procedure Name Priority Date/Time Associated Diagnosis Comme nts CT HEAD WO IV Routine 10/31/2007 6:35 PM Results for this CONTRAST CDT procedure are i n the results section. documented in this encounter Results CT HEAD WO CONTRAST (10/31/2007 6:35 PM CDT) Anatomical Region Laterality Modality Head Other Specimen (Source) Anatomical Collection Method Collection Time Re ceived Time Location / / Volume Laterality 10/31/2007 6:35 PM CDT Narrative 10/31/2007 6:35 PM CDT ?TECHNIQUE: Noncontrast enhanced axial cuts were obtained through the brain. FINDINGS: ??There is no cerebral or subd ural hemorrhage. There is ??no mass effect or edema. The ventricles and CSF spaces are unremarkable. On the bone windows there appears to be a lytic defect involving the right lateral frontal bone. Finding is nonspecific but if the patient has a his tory of underlying cancer a site of metastatic disease cannot be excluded. If there is pain at this location further evaluation with a bone scan may be indicated. Radiopaque material is also demonstrate d within the external auditory ear canal. ?1. ??No acute posttraumatic fin dings of the brain are demonstrated. 2. ??Lytic defect of the lateral aspect of the right frontal bone. Dictating Radiologist Yasmani Rebolledo MD Electronically Signed By: Cale Rebolledo MD Date & Time Signed: 11/02/07 09:19:48 LSB ? Date & Time Transcrib ed: 10/31/07 22:16:45 Procedure Note 11/03/2010 TECHNIQUE: Noncontrast enhanced axial c uts were obtained through the brain. FINDINGS: There is no cerebral or subdur al hemorrhage. There is no mass effect or edema. The ventricles and CSF spaces are unremarkable. On the bone windows there appears to be a lytic defect involving the right lateral frontal bone. Finding is nonspecific but if the patient has a his tory of underlying cancer a site of metastatic disease cannot be excluded. If there is pain at this location further evaluation with a bone scan may be indicated. Radiopaque material is also demonstrated within the external auditory ear canal. 1. No acute posttraumatic findings of t he brain are demonstrated. 2. Lytic defect of the lateral aspect of the right frontal bone. Dictating Radiologist Yasmani Rebolledo MD Electronically Signed By: Cale Rebolledo MD Date & Time Signed: 11/02/07 09:19:48 LSB Date & Time Transcribed: 10/31/07 22 :16:45 Christin Richmond MD EC CT ORDERABLES documented in this encounter Visit Diagnoses Not on filedocumented in this encounter Care Teams Hand Turner Relationship Specialty Start Date End Date Deirdre Bedolla MD PCP - General 10/19/08 07/27/09[address] [address] documented as of this encounter
--- OUTSIDE RECORDS SUMMARY | 2022-06-07 21:04 | XMS_ITS | Encounter Summary ---
:1935 Author Organization [employer] Address [address] [address] Phone Care Team Providers Name Role Phone Deirdre Bedolla MD Primary Care Provider [phone] Deirdre Bedolla MD Primary Care Provider [phone] Deirdre Bedolla MD Primary Care Provider [phone] Deirdre Bedolla MD Primary Care Provider [phone] Deirdre Bedolla MD Primary Care Provider [phone] Deirdre Bedolla MD Primary Care Provider [phone] Encounter Details Date Type Department Care Team Description 07/13/2010 Scanned - Medical Reports HISTORY DEPARTMENT Provider, Hx Social History Tobacco Use Types Packs/Day Years Used Date Smoking Tobacco: Never Assessed Sex Assigned at Date Recorded Not on file documented as of this encounter Progress Notes Sandro Segovia Conversion [employer]base - 05/09/2011 9:44 PM CDT documented in this encounter Plan of Treatment Not on filedocumented as of this encounter Visit Diagnoses Not on filedocumented in this encounter Care Teams Coal Cager Relationship Specialty Start Date End Date Deirdre Bedolla MD PCP - General 11/15/10 12/14/[address] [address] Deirdre Bedolla MD PCP - General Family Medicine 12/15/10 01/14/112023 [address] [address] Deirdre Bedolla MD PCP - General Family Medicine 01/15/11 02/25/112023 [address] [address] Deirdre Bedolla MD PCP - General Family Medicine 02/26/11 03/29/112023 [address] [address] Deirdre Bedolla MD PCP - General Family Medicine 03/30/11 04/30/112023 [address] [address] Deirdre Bedolla MD PCP - General Family Medicine 05/01/11 06/03/112023 [address] [address] documented as of this encounter
--- OUTSIDE RECORDS SUMMARY | 2022-06-07 21:04 | XMS_ITS | Encounter Summary ---
:1935 Author Organization [employer] Address [address] [address] Phone Care Team Providers Name Role Phone Unavailable Primary Care Provider Unavailable Encounter Details Date Type Department Care Team Description 08/10/2010 Orders Only [facility] Mabel Fuller MD [facility] [address] [facility] [address] [place] [address] FAHEEM GUERRERO [address] FAHEEM Burdick [id number] [phone] Social History Tobacco Use Types Packs/Day Years Used Date Smoking Tobacco: Never Assessed Sex Assigned at Date Recorded Not on file documented as of this encounter Ordered Prescriptions Prescription Sig Dispensed Refills Start Date End Date metFORMIN (GLUCOPHAGE) See Instructions, 0.000 0 201012/28/2010 1000 MG tablet Take 1 tablet in the AM and 2 tablets in the PM., 90 ea, Refills: 3, 08/10/10 15:29:11, [facility] metFORMIN (GLUCOPHAGE) Take by mouth. 0.000 0 1 11/09/2010 1000 MG tablet documented in this encounter Plan of Treatment Not on filedocumented as of this encounter Visit Diagnoses Not on filedocumented in this encounter
--- OUTSIDE RECORDS SUMMARY | 2022-06-07 21:04 | XMS_ITS | Encounter Summary ---
:1935 Author Organization [employer] Address [address] [address] Phone Care Team Providers Name Role Phone Deirdre Bedolla MD Primary Care Provider [phone] Encounter Details Date Type Department Care Team Description 03/11/2007 Orders Only HISTORY DEPARTMENT Provider, Hx Social History Tobacco Use Types Packs/Day Years Used Date Smoking Tobacco: Never Assessed Sex Assigned at Date Recorded Not on file documented as of this encounter Ordered Prescriptions Prescription Sig Dispensed Refills Start Date End Date lisinopril (PRINIVIL, 10, mg, ORAL, DAILY, 20.000 3 10/200611/19/2011 ZESTRIL) 20 MG tablet 0, 0, 03/11/07 0:29:56, Substitution Permitted, current med (Hx), Constant Indicator lisinopril (PRINIVIL, Take by mouth. 20.000 3 03/11/2007 11/09/2010 ZESTRIL) 20 MG tablet documented in this encounter Plan of Treatment Not on filedocumented as of this encounter Visit Diagnoses Not on filedocumented in this encounter Care Teams Oil Rag Washer Relationship Specialty Start Date End Date Deirdre Bedolla MD PCP - General 10/19/08 07/27/09[address] [address] documented as of this encounter
--- OUTSIDE RECORDS SUMMARY | 2022-06-07 21:04 | XMS_ITS | Encounter Summary ---
:1935 Author Organization [employer] Address [address] [address] Phone Care Team Providers Name Role Phone Deirdre Bedolla MD Primary Care Provider [phone] Reason for Visit Reason Onset Date Comments Refill Request 12/05/2010 Encounter Details Date Type Department Care Team Description 12/05/2010 Refill [facility] Michelle Marmolejo LPN Refill Request FAMILY MEDICINE 2023 [place], [place] [address] Social History Tobacco Use Types Packs/Day Years [...] 600 MG Take 1 Tab by mouth 90 Tab 3 0 12/05/2010 01/15/2011 tablet two times a day. documented in this encounter Plan of Treatment Not on filedocumented as of this encounter Visit Diagnoses Not on filedocumented in this encounter Discontinued Medications Medication Sig Discontinue Reason Start Date End Date oxaprozin (DAYPRO) 600 MG Take 1 Tab by mouth 11/18/19 11 12/05/2010 tablet two times a day. documented as of this encounter Care Teams Oven Drier Tender Relationship Specialty Start Date End Date Deirdre Bedolla MD PCP - General 11/15/10 12/14/[address] [address] documented as of this encounter
--- OUTSIDE RECORDS SUMMARY | 2022-06-07 21:04 | XMS_ITS | Encounter Summary ---
:1935 Author Organization [employer] Address [address] [address] Phone Care Team Providers Name Role Phone Deirdre Bedolla MD Primary Care Provider [phone] Encounter Details Date Type Department Care Team Description 12/21/2010 Telephone [facility] Simon corrigan MD Endoscopy [address] [place] [address] FAHEEM Burdick [address] [phone] Social History Tobacco Use Types Packs/Day Years [...] on filedocumented in this encounter Care Teams Piece Worker Relationship Specialty Start Date End Date Deirdre Bedolla MD PCP - General Family Medicine 12/15/10 01/14/112023 [address] [place] [address] documented as of this encounter
--- OUTSIDE RECORDS SUMMARY | 2022-06-07 21:04 | XMS_ITS | Encounter Summary ---
:1935 Author Organization [employer] Address [address] [address] Phone Care Team Providers Name Role Phone Deirdre Bedolla MD Primary Care Provider [phone] Encounter Details Date Type Department Care Team Description 12/14/2010 Abstract [facility] Abstract, Provider, 2023 [facility] [place] [id number] Social History Tobacco Use Types Packs/Day Years [...] filedocumented in this encounter Care Teams Senior Research Analyst Relationship Specialty Start Date End Date Deirdre Bedolla MD PCP - General 11/15/10 12/14/[address] [place] [address] documented as of this encounter
--- OUTSIDE RECORDS SUMMARY | 2022-06-07 21:04 | XMS_ITS | Encounter Summary ---
:1935 Author Organization [employer] Address [address] [address] Phone Care Team Providers Name Role Phone Deirdre Bedolla MD Primary Care Provider [phone] Encounter Details Date Type Department Care Team Description 12/21/2010 Orders Only [facility] Danna Cervantes Colon po lyps (Primary Clinic GI L, PIECE JOBBER Dx) 2023 [place], [place] [address]491 Social History Tobacco Use Types Packs/Day Years Used Date Smoking Tobacco: Never Smokeless Tobacco: Never Alcohol Use Standard Drinks/Week Comments No 0 (1 standard drink = 0.6 oz pure alcoho l) Sex Assigned at Date Recorded Not on file documented as of this encounter Plan of Treatment Not on filedocumented as of this encounter Visit Diagnoses Diagnosis Colon polyps - Primary Benign neoplasm of colon documented in this encounter Care Teams Special Trackwork Blacksmith Relationship Specialty Start Date End Date Deirdre Bedolla MD PCP - General Family Medicine 12/15/10 01/14/112023 [address] [address] documented as of this encounter
--- OUTSIDE RECORDS SUMMARY | 2022-06-07 21:04 | XMS_ITS | Encounter Summary ---
:1935 Author Organization [employer] [facility] Address [address] [address] Phone Care Team Providers Name Role Phone Deirder Bedolla MD Primary Care Provider [phone] Encounter Details Date Type Department Care Team Description 05/12/2006 Orders Only HISTORY DEPARTMENT Provider, Hx Social History Tobacco Use Types Packs/Day Years Used Date Smoking Tobacco: Never Assessed Sex Assigned at Date Recorded Not on file documented as of this encounter Ordered Prescriptions Prescription Sig Dispensed Refills Start Date End Date hydrochlorothiazide 25 MG 25.000 0 05/12/2006 11/09/2010 tablet LIPITOR 20 MG tablet Take by mouth. 20.000 0 05/12/2006 11/09/2010 atenolol (TENORMIN) 50 MG Take by mouth. 50.000 0 200511/09/2010 tablet documented in this encounter Plan of Treatment Not on filedocumented as of this encounter Visit Diagnoses Not on filedocumented in this encounter Care Teams Science Professor Relationship Specialty Start Date End Date Deirdre Bedolla MD PCP - General 10/19/08 07/27/09[address] [address] documented as of this encounter
--- OUTSIDE RECORDS SUMMARY | 2022-06-07 21:04 | XMS_ITS | Encounter Summary ---
:1935 Author Organization [employer] Address [address] [address] Phone Care Team Providers Name Role Phone Unavailable Primary Care Provider Unavailable Encounter Details Date Type Department Care Team Description 07/11/2010 Orders Only [facility] Jd Healy MD Surgery [address] 2023 [facility] [place] [address] [place] [address] [phone] Social History Tobacco Use Types Packs/Day Years Used Date Smoking Tobacco: Never Assessed Sex Assigned at Date Recorded Not on file documented as of this encounter Plan of Treatment Not on filedocumented as of this encounter Procedures Procedure Name Priority Date/Time Associated Diagnosis Comme nts US EXTREMITY LEFT Routine 07/11/2010 1:49 PM Resu lts for this NON VASCULAR HAND SPLITTER procedure are i n the results section. documented in this encounter Results US EXTREMITY LEFT NON VASCULAR (07/11/2010 1:49 PM HAND SPLITTER) Anatomical Region Laterality Modality Hip, Pelvis, Thigh, Knee, Leg, Ankle, Foot, Shoulder, Arm, E lbow, Other Forearm, Wrist, Hand Specimen (Source) Anatomical Collection Method Collection Time Re ceived Time Location / / Volume Laterality 07/11/2010 1:49 PM HAND SPLITTER Narrative 07/11/2010 1:49 PM HAND SPLITTER ?LEFT UPPER ARM ULTRASOUND INDICATION: ??Mass. FINDINGS: ??Ultrasound of the left upper arm demonstrates normal subcutaneous tissue and deltoid muscle. ??When the patient is in extension, there is mild distortion of the deltoid muscle with suggestio n of an ill-defined isoechoic mass. ??Wh ile this most likely represents normal muscle tissue, the fact the patient has a palpable abnormality and distortion warrants further investigation. ??There is no evidence for a cystic or hypoechoic mass. ?Indeterminate left shoulder ult rasound. ??MRI with and without contrast with soft tissue protocol is recommended for further evaluation. ??These findings were discussed with Dr. Healy, by telephone, at 13:48 on 07/11/2010. Dictating Radiologist Tsering Martinez MD Electronically Signed By: Martínez Martinez MD Date & Time Signed: 07/12/10 17:25:01 HMO ? Date & Time Transcrib ed: 07/11/10 14:01:56 Procedure Note 11/04/2010 LEFT UPPER ARM ULTRASOUND INDICATION: Mass. FINDINGS: Ultrasound of the left upper a rm demonstrates normal subcutaneous tissue and deltoid muscle. When the patient is in extension, there is mild distortion of the deltoid muscle with suggestion of an ill-defined isoechoic mass. While this most likely represents normal muscle tissue, the fact the patient has a palpable abnormality and distortion warrants further investigation. There is no evidence for a cystic or hypoechoic mass. Indeterminate left shoulder ultrasound. MRI with and without contrast with soft tissue protocol is recommended for further evaluation. These findings were discussed with Dr. Healy, by telephone, at 13:48 on 07/11/2010. Dictating Radiologist Tsering Martinez MD Electronically Signed By: Martínez Martinez MD Date & Time Signed: 07/12/10 17:25:01 HMO Date & Time Transcribed: 07/11/10 14 :01:56 Jd Healy MD EC US ORDERABLES documented in this encounter Visit Diagnoses Not on filedocumented in this encounter
--- OUTSIDE RECORDS SUMMARY | 2022-06-07 21:04 | XMS_ITS | Encounter Summary ---
:1935 Author Organization [employer] Address [address] [address] Phone Care Team Providers Name Role Phone Deirdre Bedolla MD Primary Care Provider [phone] Reason for Visit Reason Comments Urinary Frequency Encounter Details Date Type Department Care Team Description 11/16/2010 Office Visit [facility] UR[facility]Y Jona Heaton MD Urinary frequency; [address] UROLOGY Nocturia; [place] [address] CLINIC Urgency of urination; [phone] [place] [address] Impotence d ue to erectile dysfunction; [place] Urgency incontinence [place] DELEON [address] Social History Tobacco Use Types Packs/Day Years Used Date Smoking Tobacco: Never Smokeless Tobacco: Never Alcohol Use Standard Drinks/Week Comments Not Asked 0 (1 standard drink = 0.6 oz pure alcoho l) Sex Assigned at Date Recorded Not on file documented as of this encounter Last Filed Vital Signs Vital Sign Reading Time Taken Comments Blood Pressure 107/67 11/16/2010 3:41 PM CDT Pulse 72 11/16/2010 3:41 PM CDT Temperature - - Respiratory Rate 16 11/16/2010 3:41 PM CDT Oxygen Saturation - - Inhaled Oxygen Concentration - - Weight - - Height - - Body Mass Index - - documented in this encounter Progress Notes Jona Heaton - 11/22/2010 4:10 PM CDT Jona Heaton - 11/22/2010 12:49 PM CDT Jnoa Heaton - 11/16/2010 7:15 PM CDT [facility] Patient Name: SIMON CASTILLO Admission Date: 11/16/2010 : 1935 Age: 75Y Patient Location: [facility] Provider: [facility] SUBJECTIVE: Simon is asked to be seen by Dr. Cristobal for assessment of urinary frequency with urgency incontinence, and erectile dysfunction. The patient has had urinary frequency/urgency for several months. He was started on Detrol a couple months ago, with maybe some improvement, but he has sudden urge to void. He cannot hold the urine and often will get wet. He has nocturia x3, but mainly wakes up for other reasons and then gets up to void. He states his stream is good, although he is not sure he empties well, and does have to stand at the stool for a while to completely empty out. No urinary tract infections, retention, prior procedures, hematuria and no dysuria or other voiding symptoms associated with this. He has also been on terazosin, just a 2 mg dose that was started years ago. He is not quite sure why is on that medication; whether it is for blood pressure or for voiding. PHYSICAL EXAMINATION: GENERAL: This is a pleasant, mildly obese gentleman accompanied with his , who is somewhat hard of hearing. HEENT: Nose and ears clear. Mouth: Has his own dentition, which is slightly yellowed, but no obvioussores. Eyes: Pupils equal and reactive. NECK: Supple. Midline trachea. SKIN: Dry. No rash or lesions noted. ABDOMEN: Protuberant without masses, megaly, or tenderness. Suprapubic area is not distended. GENITOURINARY: Previously dictated. EXTREMITIES: Without cyanosis or swelling. PSYCHIATRIC: Oriented x3. Affect is pleasant. Mood is stable. LABORATORY: His urinalysis is negative. Bladder scan shows 100 mL residual with no prostate impression; nothing filling the bladder and the bladder wall does not appear thickened. IMPRESSION/PLAN: 1. Symptoms compatible with overactive bladder; although he may have some amount of incomplete emptying of the bladder. I did recommend time double voiding, but I think that because of his primary component being urgency incontinence, I will switch his medication from Detrol to Vesicare 10 mg dose. Samples given. Will have him followup in a month, and do another scan. If he is not emptying or not better, cystoscopy will be warranted with a uroflow. Side effects and risks of the medications were discussed. 2. Second problem is erectile dysfunction. This is chronic. He took some Viagra and that worked veryeffectively for him; no side effects. I did discuss other medications, which might be less expensiveto include Levitra. He would be interested in trying that so samples were given; 10 mg dose. When wefollowup, we can discuss that finding, also. Jona Heaton M.D./ junior CC: Deirdre Bedolla M.D. CDT/ Job ID: [id number] CDT/tlj Document ID: [id number] Marixa Zee - 11/16/2010 4:52 PM CDT Fall Risk No Jona Heaton - 11/16/2010 4:10 PM CDT This note has been dictated. exam:Suprapubic area non tender wo palpable bladder. No inguinal hernias, Penis uncirc palpable lesions, meatus unremarkable. Scotum visably normal wo rash or lesions. testesnl size, shape and position. Epidymymae wo nodules or tenderness. Rectal tone good wo rectal lesions. Prostate smooth, soft, non tender,nl size and shape. SVs benign wo eps. documented in this encounter Plan of Treatment Not on filedocumented as of this encounter Procedures Procedure Name Priority Date/Time Associated Diagnosis Comme nts PSA DIAGNOSTIC Routine 11/16/2010 4:24 PM Urgency of ur ination Results for this CDT Impotence due to procedure a re in erectile dysfunction the res ults section. URINALYSIS, REFLEX 11/16/2010 4:01 PM Urinary fr equency Results for this TO CULTURE CDT Nocturia procedure are i n the results section. documented in this encounter Results PSA (11/16/2010 4:24 PM CDT) P athologist Signature Prostate 2.29 0.00 - [place] Specific 4.00 ng/mL LABORATORY Antigen Specimen Anatomical Collection Method Collection Time Receive d Time (Source) Location / / Volume Laterality 11/16/2010 4:24 PM 1 5:53 CDT PM CDT Jona Heaton MD EC CHEMISTRY ORDERABLES ABN Performing Organization Address City/State/ZIP Code Phon e Number [facility] UA TO CULTUR PRN (11/16/2010 4:01 PM CDT) athologist Signature Type [facility] Color Yellow [facility] Appearance Clear [facility] Urine Specific 1.025 [facility] [facility] Urine pH 5.0 [facility] Urine Leukocyte Neg [facility] Urine Nitrites Neg [facility] Urine Protein Neg mg/dL [facility] Urine Glucose Neg mg/dL [facility] Urine Ketone Neg mg/dL [facility] Comment: URINALYSIS REFERENCE RANGES ? MICROSCOPIC REFERENCE ?RANGES Appearance: ?Clear ?WBC'S: ? 0-8/HPF Color: ? Yellow ? RBC'S: ? 0-3/HPF Specific [place]: ??1.003-1.035 ?Hyaline Casts: 0-3/LPF pH: ?5.0-8.0 Protein: ? Neg-Trace Glucose: ? Neg Ketone: ?Neg Blood: ? Neg Nitrite: ? Neg Leuk Esterase: ? Neg Microscopic Exam: Not Indicated [facility] Comment: Please Note: A routine urine not reflexing to a micro scopic exam automatically means the dipstick blood t est is negative. Urine WBC's Not Indicated /HPF [facility] Urine RBC's Not Indicated /HPF [facility] Urine Culture Reflex Not Indicated [facility] Specimen Anatomical Collection Method Collection Time Receive d Time (Source) Location / / Volume Laterality 11/16/2010 4:01 PM 1 4:01 CDT PM CDT Jona Heaton MD EC URINE ORDERABLES Performing Organization Address City/State/ZIP Code Phon e Number [facility] documented in this encounter Visit Diagnoses Diagnosis Urinary frequency Nocturia Urgency of urination 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 Impotence of organic origin Urgency incontinence Urge incontinence documented in this encounter Discontinued Medications Medication Sig Discontinue Reason Start Date End Date hydrochlorothiazide 25 MG 25, mg, ORAL, Duplicate 05/12/2006 0 11/16/2010 tablet DAILY, 0, 0, Medication 05/12/06 3:25:38, Substitution Permitted, current med (Hx), Constant Indicator DETROL LA 4 MG 24 hour 4, mg, ORAL, DAILY, Discontinued by 10/31/19 08 11/16/2010 capsule 0, 0, 10/31/07 primary provider 19:49:50, Substitution Permitted, current med (Hx), Constant Indicator documented as of this encounter Historical Medications This list may reflect changes made after this encounter. Medication Sig Dispensed Refills Start Date End Date solifenacin (VESICARE) Take 1 Tab by mouth 0 11/0512/08/2010 10 MG tabletIndications: one time a day. Urinary frequency, Nocturia, Urgency of urination vardenafil (LEVITRA) 10 Take 1 Tab by mouth 0 06/201112/29/2010 MG tabletIndications: one time as needed Impotence due to for Erectile erectile dysfunction dysfunction. added in this encounter Care Teams Seafood Harvester Relationship Specialty Start Date End Date Deirdre Bedolla MD PCP - General 11/15/10 12/14/[address] [id number] documented as of this encounter
--- OUTSIDE RECORDS SUMMARY | 2022-06-07 21:04 | XMS_ITS | Encounter Summary ---
:1935 Author Organization [facility] Address [address] [address] Phone Care Team Providers Name Role Phone Deirdre Bedolla MD Primary Care Provider [phone] Encounter Details Date Type Department Care Team Description 10/31/2007 Orders Only [facility] Christin [place] MD EMERGENCY DEPARTMENT [address] [place] [address] [place], [place] [address] [phone] Social History Tobacco Use Types Packs/Day Years Used Date Smoking Tobacco: Never Assessed Sex Assigned at Date Recorded Not on file documented as of this encounter Plan of Treatment Not on filedocumented as of this encounter Procedures Procedure Name Priority Date/Time Associated Diagnosis Comme nts CT CHEST ABD PELVIS Routine 10/31/2007 6:35 PM Re sults for this W IV CONTRAST CDT procedure are in the results section. documented in this encounter Results CT CHEST ABD PELVIS W CONTRAST (10/31/2007 6:35 PM CDT) Anatomical Region Laterality Modality Chest, Abdomen, Pelvis, Lung Other Specimen (Source) Anatomical Collection Method Collection Time Re ceived Time Location / / Volume Laterality 10/31/2007 6:35 PM CDT Narrative 10/31/2007 6:35 PM CDT ?HISTORY: Trauma. TECHNIQUE: Intravenous contrast was admi nistered followed by axial imaging from the lung apices through the chest, abdomen, and pelvis. Coronal images were reconstructed. FINDINGS: CT CHEST: There is no evidence of pneumo thorax. There are no infiltrates or effusions. The mediastinal structures are intact. There is no evidence for mediastinal hematoma. Mild coronary artery calcifications are seen. There is an area of probable fibrosis at the posterior medial right upper lobe. Degenerative findings are demonstrated involving the thoracic spine. No fractures are seen. CT ABDOMEN AD PELVIS: The kidneys demons trate symmetric excretion of contrast. Renal cysts are demonstrated bilaterally. The spleen and liver are unremarkable. There is no free fluid within the abdomen or pelvis. There is a large gallstone wi thin the gallbladder. The loops of bowel are norm al in caliber. There are no findings of fractures. The patient does have a left hip prosthesis creating streak artifact overlying the ??pelvis. ?1. ??No posttraumatic findings of the chest, abdomen, or pelvis are demonstrated. 2. ??Cholelithiasis. 3. ??Renal cysts. Dictating Radiologist Yasmani Rebolledo MD Electronically Signed By: Cale Rebolledo MD Date & Time Signed: 11/02/07 09:19:48 LSB ? Date & Time Transcrib ed: 10/31/07 22:01:15 Procedure Note 11/03/2010 HISTORY: Trauma. TECHNIQUE: Intravenous contrast was admi nistered followed by axial imaging from the lung apices through the chest, abdomen, and pelvis. Coronal images were reconstructed. FINDINGS: CT CHEST: There is no evidence of pneumo thorax. There are no infiltrates or effusions. The mediastinal structures are intact. There is no evidence for mediastinal hematoma. Mild coronary artery calcifications are seen. There is an area of probable fibrosis at the posterior medial right upper lobe. Degenerative findings are demonstrated involving the thoracic spine. No fractures are seen. CT ABDOMEN AD PELVIS: The kidneys demons trate symmetric excretion of contrast. Renal cysts are demonstrated bilaterally. The spleen and liver are unremarkable. There is no free fluid within the abdomen or pelvis. There is a large gallstone within the gallbladder. The loops of bowel are norm al in caliber. There are no findings of fractures. The patient does have a left hip prosthesis creating streak artifact overlying the pelvis. 1. No posttraumatic findings of the andre st, abdomen, or pelvis are demonstrated. 2. Cholelithiasis. 3. Renal cysts. Dictating Radiologist Yasmani Rebolledo MD Electronically Signed By: Posch MD, Robe rt O Date & Time Signed: 11/02/07 09:19:48 LSB Date & Time Transcribed: 10/31/07 22 :01:15 Christin [place] MD EC CT ORDERABLES documented in this encounter Visit Diagnoses Not on filedocumented in this encounter Care Teams Chief Drafter Relationship Specialty Start Date End Date Deirdre Bedolla MD PCP - General 10/19/08 07/27/09[address] [address] documented as of this encounter
--- OUTSIDE RECORDS SUMMARY | 2022-06-07 21:04 | XMS_ITS | Encounter Summary ---
:1935 Author Organization [employer] Address [address] [address] Phone Care Team Providers Name Role Phone Deirdre Bedolla MD Primary Care Provider [phone] Reason for Visit Reason Comments Shoulder Injury Encounter Details Date Type Department Care Team Description [facility] [address] [place] [address] Contusi on of shoulder region Department [address] [address] [place] [address] [phone] Social History Tobacco Use Types Packs/Day Years Used Date Smoking Tobacco: Never Smokeless Tobacco: Never Alcohol Use Standard Drinks/Week Comments No 0 (1 standard drink = 0.6 oz pure alcoho l) Sex Assigned at Date Recorded Not on file documented as of this encounter Last Filed Vital Signs Vital Sign Reading Time Taken Comments Blood Pressure 120/76 12/19/2010 12:06 PM CDT Pulse 67 12/19/2010 12:06 PM CDT Temperature 36.4 ??C (97.5 ??F) 12/19/2010 12:06 PM CDT Respiratory Rate 22 12/19/2010 12:06 PM CDT Oxygen Saturation 98% 12/19/2010 12:06 PM CDT Inhaled Oxygen Concentration - - Weight 109.8 kg (242 lb) 12/19/2010 12:06 PM CDT Height 177.8 cm (5' 10) 12/19/2010 12:06 PM CDT Body Mass Index 34.72 12/19/2010 12:06 PM CDT documented in this encounter Discharge Instructions Discharge InstructionsTavo Resendez MD - 12/19/2010 1:40 PM CDT Home Back SP logo CONTUSION:UPPER EXTREMITY You have a contusion of your upper extremity (arm, wrist, hand or fingers). This causes local pain, swelling and sometimes bruising. There are no broken bones. This injury takes a few days to a few weeks to heal. A sling may be provided for comfort and arm support. HOME CARE: 1) Keep your arm elevated to reduce pain and swelling. This is very important during the first 48 hours. 2) Apply an ice pack (ice cubes in a plastic bag, wrapped in a towel) over the injured area for 20 minutes every 1-2 hours the first day for pain relief. Continue this 3-4 times a day until the pain and swelling goes away. 3) You may use acetaminophen (Tylenol) or ibuprofen (Motrin, Advil) to control pain, unless another pain medicine was prescribed. [ NOTE : If you have chronic liver or kidney disease or ever had a stomach ulcer or GI bleeding, talk with your doctor before using these medicines.] 4) If a sling was provided, you may remove it to shower or bathe. Do not wear it for more than one week or it may cause joint stiffness. FOLLOW UP with your doctor or this facility if you are not starting to improve within the next THREEdays. [NOTE: If X-rays were taken, they will be reviewed by a radiologist. You will be notified of any newfindings that may affect your care.] GET PROMPT MEDICAL ATTENTION if any of the following occur: -- Pain or swelling increases -- Redness, warmth or drainage -- Hand or fingers becomes cold, blue, numb or tingly ?? [id number] [employer], [address] [place] [address], [place] [address]. All rights reserved. This information is not [...] Sig Dispensed Refills Start Date End Date oxyCODONE-acetaminophe Take 1-2 Tabs by mouth 40 Tab 0 0 12/19/2010 11/19/2011 n (PERCOCET) 5-325 MG every four hours as per tablet needed for Pain. Acetaminophen should not exceed 4000 mg per day. documented in this encounter Discharge Disposition Disposition Code Departure Means Destination Home and/or Self Mcfp documented in this encounter ED Notes Tavo Resendez MD - 12/20/2010 2:34 PM CDT Debra Mcgarry RN - 12/19/2010 1:50 PM CDT Discharge information covered regarding medication, potential problems of when to contact MD and follow up appointment. Patient states understanding discharge instructions, discharged to home via ambulatory status. Tavo Resendez MD - 12/19/2010 1:30 PM CDT Chief Complaint Shoulder Injury HPI Comments: To department by private vehicle for evaluation of right shoulder injury. Injury happened at about 1130 this morning. He stumbled down two steps on a porch and slammed into the door jam of the garage with adducted shoulder. He denies any other injury. He complains of pain over the lateral shoulder and is not able to move the shoulder due to severe pain. He denies any radicular symptoms.There is no significant associated numbness, tingling, weakness. He denies neck injury he denies head injury he denies complaints. Patient is a 75 year old male presenting with shoulder injury. The history is provided by the patient. Shoulder Injury Review of Systems All other systems reviewed and are negative. Allergies Allergen Reactions ??? Codeine Patient's Medications New Prescriptions No medications on file Previous Medications ASPIRIN LOW DOSE 81 MG TABLET 81 mg 1 tablet, ORAL, DAILY, 08/05/09 14:22:55 ATENOLOL (TENORMIN) 50 MG TABLET 50, mg, ORAL, DAILY, 0, 0, 05/12/06 3:23:34, Substitution Permitted, current med (Hx), Constant Indicator HYDROCHLOROTHIAZIDE 25 MG TABLET Take 1 Tab by mouth one time a day. LIPITOR 20 MG TABLET 20, mg, ORAL, DAILY, 0, 0, 05/12/06 3:24:26, Substitution Permitted, current med (Hx), Constant Indicator LISINOPRIL (PRINIVIL, ZESTRIL) 20 MG TABLET 10, mg, ORAL, DAILY, 0, 0, 03/11/07 0:29:56, Substitution Permitted, current med (Hx), Constant Indicator METFORMIN (GLUCOPHAGE) 1000 MG TABLET See Instructions, Take 1 tablet in the AM and 2 tablets in the PM., 90 ea, Refills: 3, 08/10/10 15:29:11, [facility] OMEPRAZOLE (PRILOSEC) 20 MG CAPSULE 20, mg, ORAL, DAILY, 0, 0, 10/31/07 19:49:28, Substitution Permitted, current med (Hx), Constant Indicator OXAPROZIN (DAYPRO) 600 MG TABLET Take 1 Tab by mouth two times a day. SOLIFENACIN (VESICARE) 10 MG TABLET Take 1 Tab by mouth one time a day. TERAZOSIN 2 MG CAPSULE 2, mg, ORAL, 0, 0, 10/31/07 19:51:20, Substitution Permitted, current med (Hx), Constant Indicator VARDENAFIL (LEVITRA) 10 MG TABLET Take 1 Tab by mouth one time as needed for Erectile dysfunction. VARDENAFIL (LEVITRA) 20 MG TABLET Take 1 Tab by mouth one time a day as needed for Erectile dysfunction. Modified Medications No medications on file Discontinued Medications No medications on file Triage medications were reviewed but may be inaccurate. Past Medical History: Past Medical History Diagnosis Date ??? Diabetes ??? Hypertension ??? 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 Unspecified chronic ischemic heart disease Past Surgical History: Past Surgical History Procedure Date ??? Colonoscopy 05/02/2006 Junito Noel MD ??? Coronary angioplasty with stent placement ??? Joint replacement Family History: His family history is not on file. Social History: He reports that he has never smoked. He has never used smokeless tobacco. He reportsthat he does not currently drink alcohol. Exam: BP 120/76 Pulse 67 Temp(Src) 97.5 ??F (36.4 ??C) (Oral) Resp 22 Ht 1.778 m (5' 10) Wt 109.77 kg (242 lb) BMI 34.72 kg/m2 SpO2 98% Physical Exam Vitals reviewed. Constitutional: He is oriented to person, place, and time. He appears well- developed and well-nourished. HENT: Head: Normocephalic and atraumatic. Eyes: Conjunctivae are normal. Cardiovascular: Normal rate, regular rhythm and intact distal pulses. Pulmonary/Chest: Effort normal and breath sounds normal. Musculoskeletal: Examination of the affected extremity is unremarkable except for the right shoulder. Right shoulderis very tender laterally. No swelling or deformity. Normal to inspection. ROM is not tolerated secondary to pain. Distal CMS intact. No clavicle or AC tenderness. No posterior shoulder tenderness. Neurological: He is alert and oriented to person, place, and time. Skin: Skin is warm and dry. Psychiatric: He has a normal mood and affect. Lab Results: Results for orders placed in visit on 11/16/10 UA TO PENDING SALE TO [facility] PRN Component Value Range ??? Type CVMS ??? COLOR Yellow ??? CLARITY Clear ??? SPECIFIC GRAVITY 1.025 ??? PH URINE 5.0 ??? LEUK ESTERASE Neg ??? NITRITE Neg ??? PROTEIN Neg (mg/dL) ??? GLUCOSE URINE Neg (mg/dL) ??? KETONE Neg (mg/dL) ??? Microscopic Exam: Not Indicated ??? URINE WBC Not Indicated (/HPF) ??? URINE RBC Not Indicated (/HPF) ??? Urine Culture Reflex Not Indicated PSA Component Value Range ??? PSA 2.29 0.00 - 4.00 (ng/mL) Lab results are reviewed as documented in the electronic chart. Rad Results: Xr Shoulder Right 2 Or More Views 12/19/2010 RIGHT SHOULDER FINDINGS: There are hypertrophic degenerative findings of the AC joint. There is spurring inferiorly. No posttraumatic findings are demonstrated. 12/19/2010 1. Arthrosis of the AC joint. 2. No acute posttraumatic changes are present. Radiographs interpreted by the ED physician will be over-read by a radiologist and the results will be available in the electronic chart. Other Results: Emergency Department Course: No findings on exam of bony injury. Mechanism and exam are most consistent with contusion but cannotrule out rotator cuff injury or ligamentous injury. I made this clear to the patient and the need tofollow up with orthopedics in 1-2 weeks if he is failing to improve. For now he needs a period of healing and observation. Recommend activity as tolerated, ice, sling, and analgesia. Given sling in theED and dilaudid 1mg IM for pain. He is improved and stable at discharge. Procedures: Procedures Assessment: No diagnosis found.Shoulder injury, contusion Plan: [facility] Tavo Resendez MD 12/19/10 1340 Debra Mcgarry RN - 12/19/2010 1:00 PM CDT states no indication of a fracture. Patient continuing to sit up on the edge of the bed. Plan to administer pain medication. Debra Mcgarry RN - 12/19/2010 12:22 PM CDT Arrived to the ED after tripping and falling into a door jam onto the right shoulder. CSM intact on right upper extremity. Patient reports having adequate sensation of right arm and hand and is able tomove without difficulty although movement is limited. Capillary refill 1-2 seconds with fingers warmto touch. Skin is intact. documented in this encounter Plan of Treatment Not on filedocumented as of this encounter Procedures Procedure Name Priority Date/Time Associated Diagnosis Comme nts XR SHOULDER RIGHT 2 STAT 12/19/2010 12:33 PM R esults for this OR MORE VIEWS CDT procedure are in the results section. documented in this encounter Results XR SHOULDER RIGHT 2 OR MORE VIEWS (12/19/2010 12:33 PM CDT) Anatomical Region Laterality Modality Shoulder Radiographic Imaging Specimen (Source) Anatomical Location Collection Method / Collectio n Time Received Time / Laterality Volume Impressions 12/19/2010 12:58 PM CDT ?? 1. ??Arthrosis of the AC joint. 2. ??No acute posttraumatic changes are present. Narrative 12/19/2010 12:58 PM CDT RIGHT SHOULDER FINDINGS: ??There are hypertrophic degen erative findings of the AC joint. ?? There is spurring inferiorly. ??No postt raumatic findings are demonstrated. Procedure Note Yasmani Rebolledo MD - 12/19/2010 RIGHT SHOULDER FINDINGS: There are hypertrophic degener ative findings of the AC joint. There is spurring inferiorly. No posttraumatic findings are demonstrated. IMPRESSION: 1. Arthrosis of the AC joint. 2. No acute posttraumatic changes are pr esent. Tavo Resendez MD [facility] BLES documented in this encounter Visit Diagnoses Diagnosis Shoulder contusion Contusion of shoulder region Contusion of shoulder region documented in this encounter Administered Medications Inactive Administered Medications Medication Order MAR Action Action Date Dose Rate Site HYDROmorphone (DILAUDID) injection 1 Given 12/19/2010 1:25 PM CD T 1 mg mg 1 mg, Intramuscular, ONCE, 1 dose, On 12/19/10 at 1330 documented in this encounter Active and Recently Administered Medications Times are shown in CDT. Scheduled Medication Order 12/17/2010 12/18/2010 12/19/2010 HYDROmorphone (DILAUDID) injection 1 mg (COMPLETED) 1325 (Given - Provider: Debra Mcgarry RN) 1 mg, Intramuscular, ONCE, 1 dose, 12/19/10 at 1330 documented in this encounter Orders Medications Ordered That Might Not Have Count Last Ord ered Date First Ordered Date Been Administered HYDROmorphone (DILAUDID) injection 1 mg 1 12/20/19 11 Nursing Count Last Ordered Date First Ordered Date APPLICATION OF SLING 1 12/19/2010 documented in this encounter Care Teams Pc Maintenance Technician Relationship Specialty Start Date End Date Deirdre Bedolla MD PCP - General Family Medicine 12/15/10 01/14/112023 [address] [address] documented as of this encounter
--- OUTSIDE RECORDS SUMMARY | 2022-06-07 21:04 | XMS_ITS | Encounter Summary ---
:1935 Author Organization [employer] Address [address] [place] [phone] Phone Care Team Providers Name Role Phone Unavailable Primary Care Provider Unavailable Encounter Details Date Type Department Care Team Description 07/20/2010 Orders Only [facility] Jd Healy MD Surgery [address] 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 documented in this encounter Results MR UPPER EXT NON JOINT LEFT WO W CONTRAST (07/20/2010 8:47 AM FINAL ASSEMBLER) Anatomical Region Laterality Modality Arm, Forearm, Hand Other Specimen (Source) Anatomical Collection Method Collection Time Re ceived Time Location / / Volume Laterality 07/20/2010 8:41 AM FINAL ASSEMBLER Narrative 07/20/2010 8:41 AM FINAL ASSEMBLER ?MRI LEFT SHOULDER INDICATION: ??Soft tissue mass left uppe r arm. TECHNIQUE: ??T1 in all three planes, T2 fat-saturated in all three planes, and post-gadolinium T1 fat-saturated sequences in all three planes obtained through the left shoulder in region of reported mass. FINDINGS: ??There is a mass within the d eltoid muscle with fat signal intensity and fat suppression, consistent with lipoma. ??This mass is bilobed, with overall dimensions of approximately 7.5 x 3.6 x 3.3 cm. ??There is no abnormal enhanceme nt associated with this mass. ??This mass extends from near the origin of the deltoid muscle at the acromion to the mid belly of the deltoid muscle. ??There is no abnormal signal within the deltoid muscle itself to s uggest edema or inflammatory change. ??U nderlying humerus is intact and not involved by th e mass. There is degenerative and hypertrophic c hange at the AC joint. ??There is a 1.3 x 1.2 cm full-thickness tear of the supraspinatus tendon anteriorly near the insertion on the greater tuberosity. ??Tendin opathy demonstrated elsewhere in the sup raspinatus as well as the infraspinatus tendon. ??Ther e is mild supraspinatus muscle atrophy. ??No obvious labral tear or biceps tendon disruption. ?1. ??Large lipoma involving the deltoid muscle. ??Nothing suspicious seen within the mass. 2. ??Full-thickness supraspinatus tendon tear. 3. ??AC degenerative and hypertrophic ch lorena, likely contributing to impingement. Dictating Radiologist Kendall Escamilla MD Electronically Signed By: Kendall Escamilla MD Date & Time Signed: 07/20/10 14:17:52 HMO ? Date & Time Transcrib ed: 07/20/10 11:02:15 Procedure Note 11/04/2010 MRI LEFT SHOULDER INDICATION: Soft tissue mass left upper arm. TECHNIQUE: T1 in all three planes, T2 fa t-saturated in all three planes, and post-gadolinium T1 fat-saturated sequences in all three planes obtained through the left shoulder in region of reported mass. FINDINGS: There is a mass within the del toid muscle with fat signal intensity and fat suppression, consistent with lipoma. This mass is bilobed, with overall dimensions of approximately 7.5 x 3.6 x 3.3 cm. There is no abnormal enhancement associated with this mass. This mass extends from n ear the origin of the deltoid muscle at the acromion to the mid belly of the deltoid muscle. There is no abnormal signal within the deltoid muscle itself to suggest edema or inflammatory change. Underlying humerus is intact and not involved by th e mass. There is degenerative and hypertrophic c hange at the AC joint. There is a 1.3 x 1.2 cm full-thickness tear of the supraspinatus tendon anteriorly near the insertion on the greater tuberosity. Tendinopathy demonstrated elsewhere in the supraspinatus as well as the infraspinatus tendon. There is mild supraspinatus muscle atrophy. No obvious labral tear or biceps tendon disruption. 1. Large lipoma involving the deltoid m uscle. Nothing suspicious seen within the mass. 2. Full-thickness supraspinatus tendon t ear. 3. AC degenerative and hypertrophic gallegos ge, likely contributing to impingement. Dictating Radiologist Kendall Escamilla MD Electronically Signed By: Kendall Escamilla MD Date & Time Signed: 07/20/10 14:17:52 HMO Date & Time Transcribed: 07/20/10 11 :02:15 Jd Healy MD [facility] MRI ORDERABLES documented in this encounter Visit Diagnoses Not on filedocumented in this encounter
--- OUTSIDE RECORDS SUMMARY | 2022-06-07 21:04 | XMS_ITS | Encounter Summary ---
:1935 Author Organization [employer] Address [address] [address] Phone Care Team Providers Name Role Phone Deirdre Bedolla MD Primary Care Provider [phone] Encounter Details Date Type Department Care Team Description 10/09/2002 Orders Only HISTORY DEPARTMENT Tony Urrutia MD [address] [place], [place] [address] (Wo rk) Social History Tobacco Use Types Packs/Day Years Used Date Smoking Tobacco: Never Assessed Sex Assigned at Date Recorded Not on file documented as of this encounter Plan of Treatment Not on filedocumented as of this encounter Procedures Procedure Name Priority Date/Time Associated Diagnosis Comme nts XR CHEST 2 VIEWS Routine 10/09/2002 6:04 PM Resul ts for this CERTIFIED PROSTHETIST procedure are i n the results section. documented in this encounter Results XR CHEST 2V (10/09/2002 6:04 PM CERTIFIED PROSTHETIST) Anatomical Region Laterality Modality Chest Other Specimen (Source) Anatomical Collection Method Collection Time Re ceived Time Location / / Volume Laterality 10/09/2002 6:04 PM CERTIFIED PROSTHETIST Impressions 10/09/2002 6:04 PM CERTIFIED PROSTHETIST ?1. ??Stable exam without acute findings. Dictating Radiologist Kesha ADAMS, Yasmani King Electronically Signed By: Yasmani sanchez Date & Time Signed: 10/11/2002 11:46 RP ?Date & Time Transcri bed: 10/10/2002 10:48 Narrative 10/09/2002 6:04 PM CERTIFIED PROSTHETIST ?Comparison is made with [id number]. There is mild cardiac enlargement. ??The vascular structures are within normal limits. There are no infiltrates or effusions. Procedure Note 11/01/2010 Comparison is made with [id number]. There is mild cardiac enlargement. The v ascular structures are within normal limits. There are no infiltrates or effusions. IMPRESSION: 1. Stable exam without acute findings. Dictating Radiologist Kesha ADAMS, Yasmani King Electronically Signed By: Yasmani sanchez Date & Time Signed: 10/11/2002 11:46 RP Date & Time Transcribed: 10/10/2002 1 0:48 Tony Urrutia MD [facility] ORDERA BLES documented in this encounter Visit Diagnoses Not on filedocumented in this encounter Care Teams Property Preservation Specialist Relationship Specialty Start Date End Date Deirdre Bedolla MD PCP - General 10/19/08 07/27/09[address] [id number] documented as of this encounter
--- OUTSIDE RECORDS SUMMARY | 2022-06-07 21:04 | XMS_ITS | Encounter Summary ---
:1935 Author Organization [employer] Address [address] [address] Phone Care Team Providers Name Role Phone Deirdre Bedolla MD Primary Care Provider [phone] Reason for Visit Reason Comments Cough Encounter Details Date Type Department Care Team Description 12/08/2010 Office Visit [facility] Nidia Bedolla (P rimary Dx); [facility] Deirdre Mosher MD Urinary frequency; MEDICINE [address] Nocturia; 2023 [facility] [place] [address] [place], [place] [address] [phone] Social History Tobacco Use Types Packs/Day Years Used Date Smoking Tobacco: Never Smokeless Tobacco: Never Alcohol Use Standard Drinks/Week Comments Not Asked 0 (1 standard drink = 0.6 oz pure alcoho l) Sex Assigned at Date Recorded Not on file documented as of this encounter Last Filed Vital Signs Vital Sign Reading Time Taken Comments Blood Pressure 104/70 12/08/2010 3:37 PM CDT Pulse 78 12/08/2010 3:37 PM CDT Temperature 37.2 ??C (99 ??F) 12/08/2010 3:37 PM CDT Respiratory Rate - - Oxygen Saturation 96% 12/08/2010 3:37 PM CDT Inhaled Oxygen Concentration - - Weight 108.9 kg (240 lb) 12/08/2010 3:37 PM CDT Height - - Body Mass Index - - documented in this encounter Patient Instructions Patient InstructionsMahling-Deirdre Cristobal MD - 12/08/2010 4:30 PM CDT Start Levaquin daily and see me next week Wed/Fri. If you are worse over the weekend, be seen again.Otherwise, I think you will be getting better in the next couple days. documented in this encounter Ordered Prescriptions Prescription Sig Dispensed Refills Start Date End Date levofloxacin (LEVAQUIN) Take 1 Tab by mouth 10 Tab 0 09/201012/18/2010 500 MG tablet one time a day for 10 days. solifenacin (VESICARE) 10 Take 1 Tab by mouth 30 Tab 11 0 12/08/2010 01/15/2011 MG tabletIndications: one time a day. Urinary frequency, Nocturia, Urgency of urination documented in this encounter Progress Notes Deirdre Bedolla MD - 12/11/2010 11:43 AM CDT [facility] Patient Name: SIMON CASTILLO Admission Date: 12/08/2010 : 1935 Age: 75Y Patient Location: [facility] Dictating Provider: Deirdre Bedolla M.D. PRIMARY CARE NOTE [facility] SUBJECTIVE: Joe is here today with concerns about cough. It started 5 to 6 days ago with a cough, sometimes productive; sometimes dry. No runny nose, sore throat, fevers, or chest pain. has similar symptoms. He does not feel short of breath, but his says sometimes he seems to be gasping forair at night. He has not noticed that he has to sleep on more pillows at night. Has not had any swelling in the extremities. Has not had any chest pain. SOCIAL HISTORY: Joe is a nonsmoker. REVIEW OF SYSTEMS: He recently was seen by urology, put on Vesicare 10 mg and that has really helpedwith a lot of his bladder symptoms. He is not having any shoulder pains, arm pains, and blood sugarshave been pretty good. OBJECTIVE: VITAL SIGNS: Weight is 240 pounds, blood pressure 104/79, pulse 79; temperature 99.0 degrees. GENERAL: Pleasant; in no acute distress. HEENT: Atraumatic; normocephalic. Conjunctivae are clear. Tympanic membranes are clear. Nares patent, no drainage. Posterior pharynx is unremarkable. NECK: Supple. No lymphadenopathy. Thyroid normal. HEART: Regular rate and rhythm. RESPIRATORY: He is breathing comfortably and lungs are clear. RADIOLOGY DATA: I did do a chest x-ray today and I do think there is a little hint of some streaky infiltrate in the right base there. Cannot rule out that that could be some heart failure too, although I think that is less likely. ASSESSMENT/PLAN: Likely early pneumonia. Levaquin, because of his age, we will do 500 mg daily for 10 days. Follow up with me next week to make sure that he is improving. Should be sooner if he gets any new symptoms. Deirdre Bedolla M.D./ osiris CC: CDT/ Job ID: [id number] CDT/[facility] Document ID: [id number] Shavonne Villegas LPN - 12/08/2010 3:42 PM CDT Fall Risk No Depression ([place]) [...] on filedocumented as of this encounter Results XR CHEST 2V (12/08/2010 4:10 PM CDT) Anatomical Region Laterality Modality Chest Radiographic Imaging Specimen (Source) Anatomical Location Collection Method / Collectio n Time Received Time / Laterality Volume Impressions 12/18/2010 7:47 AM CDT No radiographic evidence for focal consolidation. Narrative 12/18/2010 7:47 AM CDT TWO VIEW CHEST X-RAY Heart size is upper limits of normal. Th ere is no evidence of focal consolidation. There is mild interstitia l change. Procedure Note Randy Toscano MD - 12/18/2010Format ting of this note might be different from the original. TWO VIEW CHEST X-RAY Heart size is upper limits of normal. Th ere is no evidence of focal consolidation. There is mild interstitial change. IMPRESSION: No radiographic evidence for focal conso lidation. Deirdre Bedolla MD [facility] DIAGNOSTIC IMAGING ORD ERABLES documented in this encounter Visit Diagnoses Diagnosis Cough - Primary Urinary frequency Nocturia Urgency of urination documented in this encounter Discontinued Medications Medication Sig Discontinue Reason Start Date End Date solifenacin (VESICARE) 10 Take 1 Tab by mouth 11/17/19 11 12/08/2010 MG tabletIndications: one time a day. Urinary frequency, Nocturia, Urgency of urination documented as of this encounter Care Teams Horse Groomer Relationship Specialty Start Date End Date Deirdre Bedolla MD PCP - General 11/15/10 12/14/[address] [id number] documented as of this encounter
--- OUTSIDE RECORDS SUMMARY | 2022-06-07 21:04 | XMS_ITS | Encounter Summary ---
:1935 Author Organization [employer] Address [address] [address] Phone Care Team Providers Name Role Phone Deirdre Bedolla MD Primary Care Provider [phone] Reason for Visit Reason Onset Date Comments Refill Request 11/17/2010 Encounter Details Date Type Department Care Team Description 11/17/2010 Refill [facility] All[facility] Murali Wing LPN Refill Request 2023 [place], [place] [id number] Social History Tobacco Use Types Packs/Day Years [...] 600 MG Take 1 Tab by mouth 60 Tab 11 0 11/17/2010 12/05/2010 tablet two times a day. documented in this encounter Plan of Treatment Not on filedocumented as of this encounter Visit Diagnoses Not on filedocumented in this encounter Discontinued Medications Medication Sig Discontinue Reason Start Date End Date oxaprozin (DAYPRO) 600 MG Take 1 Tab by mouth 11/10/19 11 11/17/2010 tablet two times a day. documented as of this encounter Care Teams Support Architect Relationship Specialty Start Date End Date Deirdre Bedolla MD PCP - General 11/15/10 12/14/[address] [id number] documented as of this encounter
--- OUTSIDE RECORDS SUMMARY | 2022-06-07 21:04 | XMS_ITS | Encounter Summary ---
:1935 Author Organization [employer] Address [address] [address] Phone Care Team Providers Name Role Phone Deirdre Bedolla MD Primary Care Provider [phone] Encounter Details Date Type Department Care Team Description 05/10/2005 Orders Only HISTORY DEPARTMENT Garrett Waller [facility] [address] [place], [place] [id number] Social History Tobacco Use Types Packs/Day Years Used Date Smoking Tobacco: Never Assessed Sex Assigned at Date Recorded Not on file documented as of this encounter Plan of Treatment Not on filedocumented as of this encounter Procedures Procedure Name Priority Date/Time Associated Diagnosis Comme nts MR LUMBAR SPINE WO Routine 05/10/2005 10:13 AM Re sults for this CONTRAST CONFIGURATION DEVELOPER procedure are i n the results section. documented in this encounter Results MR LUMBAR SPINE WO CONTRAST (05/10/2005 10:13 AM CONFIGURATION DEVELOPER) Anatomical Region Laterality Modality L-spine, Spine Other Specimen (Source) Anatomical Collection Method Collection Time Re ceived Time Location / / Volume Laterality 05/10/2005 10:13 AM CONFIGURATION DEVELOPER Narrative 05/10/2005 10:13 AM CONFIGURATION DEVELOPER ?HISTORY: ??History of back pain. PROCEDURE: ??Sagittal T1, T2, proton den sity, and axial proton density and T2 weighted images were performed of the lumbar spine. FINDINGS: ??The conus is normal in size and configuration. ??Disc space narrowing is present at L4-5 and L5-S1, with mild desiccation of all the lumbar discs in addition. Bone marrow signal intensity shows mild facet hypertrophy at L5-S1 bilaterally. ??Focal disc protrusion is not seen. At L4-5, moderate facet hypertrophy is p resent. ??There is a moderate osteophyte disc complex causing mild to moderate spinal stenosis with AP dimension of the thecal sac reduced to 9.5 mm. At L3-4, severe facet hypertrophy is pre sent. ??A bulging disc and relatively short pedicles cause severe spinal stenosis with the AP dimension of the thecal sac reduced to 6.2 mm. The remainder of the levels are unremark able. ?Severe spinal stenosis at L3-4. ??Moderate spinal stenosis at L4-5. ??Facet hypertrophy at L5-S1. ??Diffuse vertebral degenerative changes, mild to moderate. Dictating Radiologist Nick Keys MD Electronically Signed By: Nick wagner Date & Time Signed: 05/10/05 16:15:11 LAW ? Date & Time Transcrib ed: 05/10/05 12:41:28 Procedure Note 11/02/2010 HISTORY: History of back pain. PROCEDURE: Sagittal T1, T2, proton densi ty, and axial proton density and T2 weighted images were performed of the lumbar spine. FINDINGS: The conus is normal in size an d configuration. Disc space narrowing is present at L4-5 and L5-S1, with mild desiccation of all the lumbar discs in addition. Bone marrow signal intensity shows mild facet hypertrophy at L5-S1 bilaterally. Focal disc protrusion is not seen. At L4-5, moderate facet hypertrophy is p resent. There is a moderate osteophyte disc complex causing mild to moderate spinal stenosis with AP dimension of the thecal sac reduced to 9.5 mm. At L3-4, severe facet hypertrophy is pre sent. A bulging disc and relatively short pedicles cause severe spinal stenosis with the AP dimension of the thecal sac reduced to 6.2 mm. The remainder of the levels are unremark able. Severe spinal stenosis at L3-4. Moderat e spinal stenosis at L4-5. Facet hypertrophy at L5-S1. Diffuse vertebral degenerative changes, mild to moderate. Dictating Radiologist Nick Keys MD Electronically Signed By: Nick wagner Date & Time Signed: 05/10/05 16:15:11 LAW Date & Time Transcribed: 05/10/05 12 :41:28 Garrett LAWTON MRI ORDERABLES documented in this encounter Visit Diagnoses Not on filedocumented in this encounter Care Teams Customer Support Assistant Relationship Specialty Start Date End Date Deirdre Bedolla MD PCP - General 10/19/08 07/27/[address] [address] documented as of this encounter
--- OUTSIDE RECORDS SUMMARY | 2022-06-07 21:04 | XMS_ITS | Encounter Summary ---
:1935 Author Organization [employer] Address [address] [address] Phone Care Team Providers Name Role Phone Deirdre Bedolla MD Primary Care Provider [phone] Encounter Details Date Type Department Care Team Description 07/05/2002 Orders Only [facility] Bahman Rosario MD Emergency Department [address] [address] [place] [address] [phone] Social History Tobacco Use Types Packs/Day Years Used Date Smoking Tobacco: Never Assessed Sex Assigned at Date Recorded Not on file documented as of this encounter Plan of Treatment Not on filedocumented as of this encounter Procedures Procedure Name Priority Date/Time Associated Diagnosis Comme nts XR KNEE RT 4 OR Routine 07/05/2002 5:52 PM Result s for this MORE VIEWS ROUNDER HAND procedure are i n the results section. documented in this encounter Results XR KNEE RT 4 OR MORE VIEWS (07/05/2002 5:52 PM ROUNDER HAND) Anatomical Region Laterality Modality Knee Other Specimen (Source) Anatomical Collection Method Collection Time Re ceived Time Location / / Volume Laterality 07/05/2002 5:52 PM ROUNDER HAND Impressions 07/05/2002 5:52 PM ROUNDER HAND ?Degenerative change primarily in the patellofemoral joint. No fracture or effusion. Dictating Radiologist Lenny ADAMS, Andi Monroe Electronically Signed By: Andi Cardenas rn Date & Time Signed: 07/10/2002 15:45 JSL ? Date & Time Transcrib ed: 07/06/2002 08:13 Narrative 07/05/2002 5:52 PM ROUNDER HAND ?HISTORY: ?? Pain. There is no fracture or effusion. ?? The re was a tiny osteophyte off the superior patella as well as laterally off the patella on sunrise view. Procedure Note 11/01/2010 HISTORY: Pain. There is no fracture or effusion. There was a tiny osteophyte off the superior patella as well as laterally off the patella on sunrise view. IMPRESSION: Degenerative change primarily in the pa tellofemoral joint. No fracture or effusion. Dictating Radiologist Lenny ADAMS, Andi Monroe Electronically Signed By: Andi Cardenas rn Date & Time Signed: 07/10/2002 15:45 JSL Date & Time Transcribed: 07/06/2002 08:13 Bahman Floyd MD [facility] ORDERA BLES documented in this encounter Visit Diagnoses Not on filedocumented in this encounter Care Teams Solution Manager Relationship Specialty Start Date End Date Deirdre Bedolla MD PCP - General 10/19/08 07/27/09[address] [address] documented as of this encounter
--- OUTSIDE RECORDS SUMMARY | 2022-06-07 21:04 | XMS_ITS | Encounter Summary ---
:1935 Author Organization [employer] Address [address] [address] Phone Care Team Providers Name Role Phone Unavailable Primary Care Provider Unavailable Encounter Details Date Type Department Care Team Description 08/05/2009 Orders Only HISTORY DEPARTMENT Provider, Hx Social History Tobacco Use Types Packs/Day Years Used Date Smoking Tobacco: Never Assessed Sex Assigned at Date Recorded Not on file documented as of this encounter Ordered Prescriptions Prescription Sig Dispensed Refills Start Date End Date ASPIRIN LOW DOSE 81 MG 81 mg 1 tablet, 81.000 0 08/05/19 10 tablet ORAL, DAILY, 08/05/09 14:22:55 ASPIRIN LOW DOSE 81 MG Take by mouth. 81.000 0 0 11/09/2010 tablet documented in this encounter Plan of Treatment Not on filedocumented as of this encounter Visit Diagnoses Not on filedocumented in this encounter
--- OUTSIDE RECORDS SUMMARY | 2022-06-07 21:11 | XMS_ITS | Encounter Summary ---
:1935 Author [email or web address] Address [address] [place] [address] Care Team Providers Name Role Phone Unavailable Primary Care Provider Unavailable Reason for Visit Reason Comments Procedure Procedure/Equipment (Routine) - Incomplete Specialty Diagnoses / Procedures Referred By Contact Refer red To Contact Diagnoses Back pain, unspecified back location, unspecified back pain laterality, unspecified chronicity Keron Serrato MD Procedures FL C Arm 20 Pain Management [address] [place] [address] [place] 55[address] 1 Referral ID Status Reason Start Date Expiration Date Visits V isits Requested Authorized [id number] Incomplete 05/14/2016 08/13/2017 1 1 Encounter Details Date Type Department Care Team Description 05/23/2016 Procedure Visit [facility] Keron Serrato MD [address] [facility] [place] [address] [place] [address] Navdeep Espana MD [address] [place] [address] [place] [address] [place] [address] 2, Reggie Salgado Rn [phone] Social History Tobacco Use Types Packs/Day Years Used Date Smoking Tobacco: Never Alcohol Use Standard Drinks/Week Comments No 0 (1 standard drink = 0.6 oz pure alcoho l) Sex Assigned at Date Recorded Not on file documented as of this encounter Last Filed Vital Signs Vital Sign Reading Time Taken Comments Blood Pressure 133/69 05/23/2016 1:22 PM BARN BOSS Pulse 58 05/23/2016 1:22 PM BARN BOSS Temperature 36.5 ??C (97.7 ??F) 05/23/2016 12:23 PM BARN BOSS Respiratory Rate 16 05/23/2016 1:22 PM BARN BOSS Oxygen Saturation 94% 05/23/2016 1:22 PM BARN BOSS Inhaled Oxygen Concentration - - Weight 94.3 kg (208 lb) 05/23/2016 12:23 PM BARN BOSS Height 172.7 cm (5' 8) 05/23/2016 12:23 PM BARN BOSS Body Mass Index 31.63 05/23/2016 12:23 PM BARN BOSS documented in this encounter Patient Instructions Patient InstructionsSuyapa Jensen RN - 05/23/2016 12:52 PM CST FOLLOW UP PLAN: Please follow up with Dr. Lc Serrato in 10-14 days; call [phone] to schedule an appointment if you do not already have one. RESTART PLAVIX IN 12 HOURS ORDERED BY PRESCRIBING PHYSICIAN. Lumbar Epidural Injection Post-Procedure Instructions: ?? Rest today ?? Refrain from driving until tomorrow ?? Apply ice to site (20 minutes on/ 20 minutes off) for the next 48 hours if you experience any soreness or pain. ?? No heat to site for next 48 hours ?? No tub baths, pools, hot tubs or lakes for 2 days. You may shower. ?? Resume your regular diet and medications (Blood thinners per the chart you were given). ?? If you experience shortness of breath, pain when breathing, or severe swelling, perineal numbness, loss of bowel or bladder control, or progressive extremity weakness that does not resolve in 6 hours notify the doctor. If it is after normal clinic hours (8a-4p), go to the nearest emergency room for evaluation. ?? You may experience the following symptoms up to 6 hours after your injection: ?? Warmth ?? Tingling ?? Heaviness ?? Numbness ?? Flushing in face ?? If the symptoms last more than 12 hours, call the doctor ?? If you have a severe headache that goes away when lying down, this may be a spinal headache - this is not an emergency, but please alert our team so we can help you manage it. Dr. Navdeep Espana MD Interventional Pain Physician and Anesthesiologist Please contact the Pain Nurse ([phone]) for all medical/procedural questions regarding your care at the [facility] Please contact Whit ([phone]) for all administrative/scheduling questions related to the [facility] Medication Requests: Prescriptions requiring refills must be requested from the prescribing physician. If Dr. Espana prescribed your medication, call the number above. If any other physician prescribed your medication, please contact his or her office to discuss. BOSS documented in this encounter Progress Notes Suyapa Jensen RN - 05/23/2016 1:15 PM CST Patient tolerated procedure well, vital signs stable. Post-procedure pain level 0/10 at rest, 0/10 with activity. Discharge instructions given (written & verbal review), patient verbalized understanding. Patient discharged to home at 1328 via ambulatory with airport driver. BOSS Hayley Victor RN - 05/23/2016 12:29 PM CST Patient here for Lumbar ford procedure. Patient rates pain in Back that radiates down right leg, 5/10at rest,10/10 with activity. Verified NPO status. Pre-op teaching completed, patient verbalizes understanding. Consent per MD. Stopped plavix over one week ago.Discharge per BOSS documented in this encounter Procedure Notes Navdeep Espana MD - 05/23/2016 1:38 PM CST Procedure Note Lumbar Transforaminal Epidural Steroid Injection under Flouro Procedure Date: 05/23/2016 Patient: Simon Castillo 1935 PREOPERATIVE DIAGNOSIS: Lumbar Radicular Pain POSTOPERATIVE DIAGNOSIS: Lumbar Radicular Pain OPERATION PERFORMED: Right Lumbar Transforaminal Epidural Steroid Injection at levels: L4/5 (L3/4 was complete inaccessible based on both MRI and fluoro review) Interventionalist: Navdeep Espana MD Sedation was not used; and IV with a 500mL bag of saline was not started by the nursing team. ESTIMATED BLOOD LOSS: None FLUIDS: 0 mL FLUOROSCOPY WAS USED. TOTAL SEDATION TIME: 0 minutes. INDICATIONS FOR PROCEDURE: This is a 80 y.o. year old male with a clinical picture consistent with the above-mentioned diagnosis, resulting in radicular pain to the Right lower extremity as confirmed on clinical exam and imagingstudies. Pain has been refractory to conservative therapy. We spent extra time today reviewing infectious complications of this procedure given MRI evidence ofprior infections (discitis) and history of meningitis, as well as the fact that there is an existingthoracic spinal cord stimulator. The patient demonstrated good understanding of this. PROCEDURE AND FINDINGS: The patient was greeted in the pre procedure holding area. The risk, benefits and alternatives to the procedure were again reviewed with the patient and written informed consent was placed in the chart. Prior to the procedure a time out was completed, verifying correct patient, procedure, site, positioning, and implants and/or special equipment. The patient was taken to the procedure room and positioned prone on the fluoroscopy table. Then a airfield services officer film was taken to identify the correct level. The skin was prepped and draped in the usual sterile fashion. The overlying skin and subcutaneous tissue was anesthetized using a 25-gauge 1-1/2 inch needle with 1% preservative-free lidocaine for a total volume of 2 mls. Then a 22-gauge 5 inch Quincke spinal needle was advanced under fluoroscopic guidance using an oblique view just inferior to the pedicle of the L4 level to the laterality mentioned above. The fluoroscopy view was changed to the AP and lateral views and the needle position was confirmed to be within the foramen. I then attached a flushed 20-inch length of low-volume microbore tubing to the needle hub to minimize any further needle movement or introduction of air. Then 1 mls of Isovue-M 200 dye from a10cc vial was injected under AP view at each level with DSA and confirmed adequate spread along the nerve root and in the epidural space. There was no evidence of intravascular uptake or intrathecal spr ead on imaging. A lateral view was also taken confirming adequate epidural spread. At this point, 10 mg of dexamethasone was injected along with 2.0 mls of 0.25% bupivacaine per level. The needle was then re-styletted and removed. The needle insertion site was dressed appropriately. The patient was carefully escorted to the recovery room where they were monitored for a brief periodof time. The patient tolerated the procedure well and was discharged home, with a airport driver, in stable condition with post procedural instructions. Prior to the procedure, the patient reported a pain score of 5/10 at rest and 10/10 with activity. Shortly before discharge, we noted a pain score of 0/10 at rest and 1/10 with activity. Follow-up will be Clinic Visit with Dr. Serrato, per pertinent documentation. This was a very challenging procedure given the patient's profound degree of degeneration. COMPLICATIONS: None BOSS documented in this encounter Plan of Treatment Not on filedocumented as of this encounter Procedures Procedure Name Priority Date/Time Associated Diagnosis Comme nts FL C ARM 20 PAIN Routine 05/23/2016 1:09 PM Back pain, Resul ts for this MANAGEMENT BARN BOSS unspecified back procedure a re in location, the results unspecified back section. pain laterality, unspecified chronicity documented in this encounter Results FL C Arm 20 Pain Management (05/23/2016 1:09 PM BARN BOSS) Anatomical Region Laterality Modality Radiographic Imaging Specimen (Source) Anatomical Location Collection Method / Collectio n Time Received Time / Laterality Volume Narrative 05/23/2016 2:01 PM BARN BOSS Images obtained during surgical procedure. See procedure note in Epic on this date. Keron Serrato MD [facility] [place] documented in this encounter Visit Diagnoses Diagnosis Right lumbosacral radiculopathy - Primar y Thoracic or lumbosacral neuritis or radi culitis, unspecified Back pain, unspecified back location, un specified back pain laterality, unspecified chronicity documented in this encounter
--- OUTSIDE RECORDS SUMMARY | 2022-06-07 21:11 | XMS_ITS | Encounter Summary ---
:1935 Author Organization [facility] Address [address] [address] Care Team Providers Name Role Phone Unavailable Primary Care Provider Unavailable Reason for Visit Reason Onset Date Comments Post Visit Follow Up Phone Call 05/24/2016 Encounter Details Date Type Department Care Team Description 05/24/2016 Telephone [facility] Jo-Ann Grey, Post Visit Follow Up [address] [employer] RN Phone Call [place], [place] [address] Social History Tobacco Use Types Packs/Day Years Used Date Smoking Tobacco: Never Alcohol Use Standard Drinks/Week Comments No 0 (1 standard drink = 0.6 oz pure alcoho l) Sex Assigned at Date Recorded Not on file documented as of this encounter Nursing Notes Jo-Ann Grey RN - 05/24/2016 9:46 AM CST Procedure done: Bill Were you able to rest at home? yes What is your pain at now? 0/10 What was your pain at it's worse since the procedure? 0/10 Any Side effects? no Any other concerns or questions? no Was the service provided satisfactory? 

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
--- OUTSIDE RECORDS SUMMARY | 2022-06-07 21:11 | XMS_ITS | Clinical Summary ---
:1935 Author Organization [facility] Address [address] [place] [address] Care Team Providers Name Role Phone Found, No Pcp MD Primary Care Provider Unavailable Source Comments You are receiving this document as you are listed as the primary care provider,follow-up provider, or the patient has been referred to you for consultation.This is in compliance with the Medicare and Medicaid EHR Incentive Program,which states Providers who transition their patient to another setting of careor provider of care or refers their patient to another provider of care shouldprovide summarycare record for each transition of care or referral. [facility] Allergies No known active allergies Medications Medication Sig Dispensed Refills Start Date End Date Status SENNA OR 0 Active tamsulosin (FLOMAX) 0.4 Take 0.4 mg by 0 Active MG CAPS capsule mouth daily. ATENolol (TENORMIN) 25 Take 25 mg by 0 Active MG tablet mouth daily. aspirin 81 MG chewable Take 81 mg by 0 Active tablet mouth daily. clopidogrel (PLAVIX) 75 Take 75 mg by 0 Active MG tablet mouth daily. atorvastatin (LIPITOR) Take 40 mg by 0 Active 40 MG tablet mouth daily. gabapentin (NEURONTIN) Take 600 mg by 0 Active 600 MG tablet mouth three times a day. celecoxib (CELEBREX) Take 200 mg by 0 Active 200 MG capsule mouth two times a day. pantoprazole (PROTONIX) Take 40 mg by 0 Active 40 MG tablet mouth daily. fluoxetine (PROZAC) 40 Take 40 mg by 0 Active MG capsule mouth daily. rOPINIRole (REQUIP) Take 0.25 mg by 0 Active 0.25 MG tablet mouth three times a day. solifenacin (VESICARE) Take 5 mg by 0 Active 5 MG tablet mouth daily. traMADol (ULTRAM) 50 MG Take 50 mg by 0 Active tablet mouth every 6 hours as needed for Pain. Active Problems No known active problems Social History Tobacco Use Types Packs/Day Years Used Date Smoking Tobacco: Never Alcohol Use Standard Drinks/Week Comments No 0 (1 standard drink = 0.6 oz pure alcoho l) Sex Assigned at Date Recorded Not on file Last Filed Vital Signs Vital Sign Reading Time Taken Comments Blood Pressure 133/69 05/23/2016 1:22 PM LINER REROLL TENDER Pulse 58 05/23/2016 1:22 PM LINER REROLL TENDER Temperature 36.5 ??C (97.7 ??F) 05/23/2016 12:23 PM LINER REROLL TENDER Respiratory Rate 16 05/23/2016 1:22 PM LINER REROLL TENDER Oxygen Saturation 94% 05/23/2016 1:22 PM LINER REROLL TENDER Inhaled Oxygen Concentration - - Weight 94.3 kg (208 lb) 05/23/2016 12:23 PM LINER REROLL TENDER Height 172.7 cm (5' 8) 05/23/2016 12:23 PM LINER REROLL TENDER Body Mass Index 31.63 05/23/2016 12:23 PM LINER REROLL TENDER Plan of Treatment Health Maintenance Due Date Last Done Comments Medicare Annual Wellness Visit 1935 COVID-19 Vaccine (#1) 03/11/1936 DTaP/Tdap/Td (1 - Tdap) 1954 Pneumococcal 65+ Yrs (1 - PCV) 2002 Zoster/Shingles (2 of 3) 06/24/2012 04/29/2012 Influenza (#1) 2022 HepA Aged Out No longer eligib le based on patient's age to complete this topic HepB Aged Out No longer eligib le based on patient's age to complete this topic Hib Aged Out No longer eligib le based on patient's age to complete this topic IPV (Polio) Aged Out No longer eligib le based on patient's age to complete this topic MCV4 Aged Out No longer eligib le based on patient's age to complete this topic Insurance Payer Benefit Plan / Subscriber ID Effective Dates Phone Addre ss Type Group MEDICARE MEDICARE [id number] 2002-Presen [phone] [facility] BCBS BCBS BCBS [place] [id number] 2015-Presen [phone] [address] [address] Medicare BLUE t [address] [place] [address] Care Teams Remarketing Manager Relationship Specialty Start Date End Date Found, No Pcp, PCP - General 11/19/17 [address] [place] [address]
--- OUTSIDE RECORDS SUMMARY | 2022-06-07 21:11 | XMS_ITS | Encounter Summary ---
:1935 Author [facility] Address [address], [place] [address] Care Team Providers Name Role Phone Unavailable Primary Care Provider Unavailable Encounter Details Date Type Department Care Team Description 11/05/1996 PN Conversion Only [facility] [address] Leanne Mittal MD [address] [facility] OFF SITE [facility]. [address] [place], [place] [address] [phone] Social History Tobacco Use Types Packs/Day Years Used Date Smoking Tobacco: Never Assessed Sex Assigned at Date Recorded Not on file documented as of this encounter Progress Notes Conversion, [facility] - 11/05/1996 12:01 AM CDT Progress Notes signed by at 04/25/98 0856 Author: Rio Conversion Service: (none) Author Type: (none) Filed: 10/24/10 2319 Note Time: 11/05/96 0001 Status: Signed Route Sales Associate: Rio Conversion IMPRESSION: Eustachian tube dysfunction. Bilateral progressive hearing loss. SUBJECTIVE: Simon Castillo. Returns absolutely unimproved. Ears pop only if he does a Valsalva with the nose pinched. Hearing loss unchanged. He is frustrated and depressed and feels like crying. I explained to patient and his that this was a condition that needed further ENT specialist care, and I suggested a return to the [facility] to see a specialist in this type of problem. I have received records from [place] from his May 14, 1996 to the ENT Department which are handwritten and signed by a physician whose name I cannot decipher. A diagnosis was bilateral sensorineural hearing loss and tinnitus. No specific recommendations other than hearing protectors apparently were made. OBJECTIVE: N/A ASSESSMENT: 1. Eustachian tube dysfunction. 2. Bilateral progressive hearing loss. PLAN: I contacted [place] patient referral, and they will set up an appointment with either Dr. Merlos or Dr. Ram of ENT Department to evaluate the problem. lab SCHEDULED RESOURCE: SIMON MITTAL MD OPERATOR Conversion, [facility] - 10/26/1996 12:01 AM CDT Progress Notes signed by at 04/25/98 1836 Author: [facility] Conversion Service: (none) Author Type: (none) Filed: 10/24/10 2313 Note Time: 10/26/962015 Status: Signed Route Sales Associate: Rio Ge IMPRESSION: Eustachian tube dysfunction, specific cause undetermined. Bilateral and progressive hearing loss. SUBJECTIVE: Simon Castillo. 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 He reports enjoying generally excellent health until last March when he developed a humming sound in his head, presumably coming from the ears. This may or may not have been associated with some increasing hearing loss noted by his and other family members. In June he had a feeling like a heavy cold but not a cold. Ever since he has experienced a feeling of congestion or pressure in his head which feels plugged. This particularly affects the ears, right ear more than left, and has been associated with progressive hearing loss. The humming noise has disappeared. He really doesn't have nasal symptoms of obstruction, sneezing, rhinorrhea or itching. No ocular symptoms. He finds it somewhat difficult to put in words the exact sensation that he feels in his head but it is aggravated by exposure to fragrances of any type and musty odors. There have been no recent colds. He has no history of hay fever, asthma, food sensitivity, drug allergy or dermatitis. Currently on Diflucan two days weekly since July for nail fungus. He visited the [facility] for a complete evaluation in June 1996, and they found no significant abnormalities except bilateral partial sensorineural hearing loss, elevated triglycerides, normal cholesterol, and low HDL. They believe that he suffered sleep apnea with snoring. He did have an ENT evaluation and no mention is made of any other abnormalities. Subsequently the patient was seen by a second ENT physician, Dr. Sunday Schwartz. His examination showed no abnormalities. A CT scan was interpreted as showing minimal sinusitis ethmoid sinuses and left maxillary sinus. The patient has received two courses of different antibiotics and Vancenase plus Claritin with no beneficial effect on his ongoing symptoms. At times he can feel the ear pop. PAST HEALTH: Noncontributory, generally excellent. Nonsmoker. FAMILY HISTORY: Parents weren't allergic nor are any of his four children. One of two siblings, a sister, has hay fever and asthma. ENVIRONMENT: He thinks he's worse in a room at his bank where there's a humidifier with possible mold contamination of the ceiling. He has lived in the same 25-year-old home for 25 years with forced air heat, central air conditioning, central air cleaning devices, and no pets. OBJECTIVE: BP: 136/100. Ht: 70 in. Wt: 259 lb. Affable overweight middle-aged gentleman. There is an excellent nasal airway present with some crusting, modest, bilateral. External and middle ears are normal. Mouth, throat and thyroid are normal. Lungs clear. Intradermal allergy skin tests to common [facility] aeroallergens are all negative with a strong response to the histamine control indicating we were having valid testing. ASSESSMENT: I believe the patient is suffering eustachian tube dysfunction problem with associated hearing loss. This may be a problem of collapsing eustachian tubes or fluid-filled tubes. Unfortunately, there is no way that the problem can be directly visualized. Allergic factors do not seem to be playing any important role in current symptoms. Further attempts at intranasal therapy will be futile. Occasional patients benefit from course of prednisone which will help us understand if the problem might be correctable (reversible). Accordingly, I'm placing him on generic Medrol 16 mg b.i.d. for 5 days, 16 mg each morning for 3 mornings, then 8 mg every morning until next revisit in 7-10 days. At that time we'll determine how to proceed, depending on his response. PLAN: See above. cc: Jona Robins MD [facility] [address] [place] [phone] cc: Simon Castillo lab SCHEDULED RESOURCE: SIMON MITTAL MD OPERATOR documented in this encounter Plan of Treatment Not on filedocumented as of this encounter Visit Diagnoses Not on filedocumented in this encounter
--- OUTSIDE RECORDS SUMMARY | 2022-06-07 21:11 | XMS_ITS ---
:1935 Author Care Team Providers Name Role Phone Dimitrios Sanford Rickey Primary Care Provider Unavailable Allergies Code Code System Name Reaction Severity Status Onset Penicillins ? ? Active ? Medications Name Status Start Date Stop Date ? ? amlodipine 2.5 mg tablet Active ? Not george ilable TAKE 1 TABLET BY MOUTH ONCE DAILY. atenolol 25 mg tablet Active ? Not availa ble TAKE 1 TABLET BY MOUTH ONCE DAILY. atorvastatin 40 mg tablet Active ? Not av ailable TAKE 1 TABLET BY MOUTH EVERY DAY cephalexin 500 mg capsule Active ? Not av ailable TAKE 1 CAPSULE BY MOUTH TWICE A DAY FOR 10 DAYS clopidogrel 75 mg tablet Active ? Not george ilable TAKE 1 TABLET BY MOUTH EVERY DAY fluticasone propionate 50 mcg/actuation nasal spray,suspension A ctive ? Not available INSTILL 2 SPRAYS IN THE NOSTRIL(S) ONCE DAILY. gabapentin 300 mg capsule Active ? Not av ailable TAKE 2 CAPSULES BY MOUTH 3 TIMES DAILY. ketoconazole 2 % topical cream Active ? N ot available PLEASE SEE ATTACHED FOR DETAILED DIRECTIONS levofloxacin 500 mg tablet Active ? Not a vailable TAKE 1 TABLET BY MOUTH ONCE DAILY. nitrofurantoin monohydrate/macrocrystals 100 mg capsule Active ? Not available TAKE 1 CAPSULE BY MOUTH TWICE A DAY FOR 7 DAYS ofloxacin 0.3 % ear drops Active ? Not av ailable PLACE 5 DROPS INTO LEFT EAR 2 TIMES DAILY FOR 10 DAYS. oxybutynin chloride ER 10 mg tablet,extended release 24 hr Activ e ? Not available TAKE 1 TABLET BY MOUTH EVERY DAY pantoprazole 40 mg tablet,delayed release Active ? Not available TAKE 1 TABLET BY MOUTH EVERY DAY ropinirole 0.25 mg tablet Active ? Not av ailable tamsulosin 0.4 mg capsule Active ? Not av ailable TAKE 1 CAPSULE BY MOUTH ONCE DAILY AFTER A MEAL. tramadol 50 mg tablet Active ? Not availa ble TAKE 1 TABLET BY MOUTH 3 TIMES DAILY IF NEEDED FOR CHRONIC PAIN . Problems None recorded. Procedures Date Name Performed by ? 10/06/2020 Colonoscopy Information not avai lable ? Appendectomy Information not avai lable ? Orthopedic Surgery Information not avai lable Notes: left hip ? Heart Surgery Information not avai lable Notes: Stents placed Results Lab Results None recorded. Past Encounters Encounter Date Diagnosis Provider 09/04/2021 Vanessa Sanford MD: [address] [place] [address], Ph. Social History Tobacco Smoking Status Never Smoker Vaccine List None recorded. Plan of Care Reminders Provider Appointments None recorded. ? ? Lab None recorded. ? ? Referral None recorded. ? ? Procedures None recorded. ? ? Surgeries None recorded. ? ? Imaging None recorded. ? ? Vitals Height Weight BMI 5 ft 7 in 180 lbs 28.2 kg/m2
--- OUTSIDE RECORDS SUMMARY | 2022-06-07 21:11 | XMS_ITS | Encounter Summary ---
:1935 Author Organization Replaced by [facility] Address [address], [place] [address] Care Team Providers Name Role Phone Unavailable Primary Care Provider Unavailable Reason for Visit Reason Comments Back Pain lbp. Injecion was given. Encounter Details Date Type Department Care Team Description 06/12/2016 Office Visit Keron Medina Lumbar radiculopathy CENTER MD Olga Lidia (Primary Dx) [address] [place] [address] [place], [place] [phone] Social History Tobacco Use Types Packs/Day Years Used Date Smoking Tobacco: Never Alcohol Use Standard Drinks/Week Comments No 0 (1 standard drink = 0.6 oz pure alcoho l) Sex Assigned at Date Recorded Not on file documented as of this encounter Patient Instructions Patient InstructionsArlette Bruce MA - 06/12/2016 11:[address] Keron Serrato MD [facility] Sp[facility] Employment Coach: Mary Ann Sidhu Please contact Mary Ann for all administrative questions at [phone] Please contact the Spine Nurse for all medical related questions at [phone] Office Hours: Saturday-Saturday and AM Medication Requests: Prescriptions are not filled on Weekends or on Weekdays after 3:00PM For all medication refills: Request a refill using MyChart or contact your Pharmacy PREP COOK documented in this encounter Progress Notes Keron Serrato MD - 06/13/2016 5:45 PM CST NAME: SIMON CASTILLO MR#: [id number] CSN: [id number] AUTHENTICATING CLINICIAN: Keron Serrato MD CONFIRM #: [id number] LOC: 711 CLINIC PROGRESS NOTE DATE OF VISIT: 06/12/2016 : 1935 CHIEF COMPLAINT: Follow up radicular leg pain. HPI: Simon is an absolutely delightful 80-year-old gentleman who recently moved from [facility] to [place], [place] to be closer to family. He has a very significant scoliotic deformity including lateral listhesis centered around L3- 4. He has had problems with worsening right-sided radicular leg pain. I sent him for a recent epidural steroid injection and he comes in today with his to review those results. Simon reports after the injection that he felt pretty good for approximately a 2 week period of time. After that his radicular symptoms gradually started to return and he is essentially back at baseline levels. From a surgical point of view he would very much be looking at a large reconstruction project. That said, it would not be considered excessive to tackle this surgically as long as he was medically cleared. That is where the issue essentially lies. He has had extensive cardiac disease in the past and did bring up the topic of a 4 hour long surgery with his [place] community educator who really was not thrilled about that idea. I have advised him that now that he is living down in [place] firstly he needs to be establishing local medical care there which he has now done at the [facility] in [place]. I advised him that in all likelihood there are some [facility] cardiologists traveling down to [place] and perhaps it would be servin for him to make contact with a community educator there. If the [facility] cardiologists felt that it was reasonable for him to undergo a 4 hour long surgery then he will come back and see me. Otherwise I think it is best that we just leave him alone. ASSESSMENT: Scoliotic deformity with radicular leg pain. TT: 25 CT: 20 DAA:LS C: R:06/12/16 12:15 CONFIRM#:[id number] PREP COOK documented in this encounter Plan of Treatment Not on filedocumented as of this encounter Visit Diagnoses Diagnosis Lumbar radiculopathy - Primary Thoracic or lumbosacral neuritis or radi culitis, unspecified documented in this encounter
--- OUTSIDE RECORDS SUMMARY | 2022-06-07 21:11 | XMS_ITS | Encounter Summary ---
:1935 Author Organization [facility] Address [address] [place] [address] Care Team Providers Name Role Phone Unavailable Primary Care Provider Unavailable Reason for Visit Procedure/Equipment (Routine) - Incomplete Specialty Diagnoses / Procedures Referred By Contact Refer red To Contact Diagnoses Right lumbar radiculitis Kendall Lang MD Procedures XR Pelvis W Rt Lateral Hip [address] [facility] [place] [address] Referral ID Status Reason Start Date Expiration Date Visits V isits Requested Authorized [id number] Incomplete 05/14/2016 08/13/2017 1 1 Encounter Details Date Type Department Care Team Description 05/14/2016 Imaging [facility] Kendall Lang MD Right hip pain [address] 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 documented in this encounter Results XR Pelvis W Rt Lateral Hip (05/14/2016 10:36 AM FAST FOOD SERVER) Anatomical Region Laterality Modality Pelvis, Hip Digital Radiography Specimen (Source) Anatomical Location Collection Method / Collectio n Time Received Time / Laterality Volume Narrative 05/14/2016 12:04 PM FAST FOOD SERVER 2 views of the AP pelvis with right lateral hip show the is a left total hip replacement with no evidence of loos ening and the right hip space is well preserved. Kendall GRIGSBY GD documented in this encounter Visit Diagnoses Diagnosis Right hip pain Pain in joint, pelvic region and thigh documented in this encounter
--- OUTSIDE RECORDS SUMMARY | 2022-06-07 21:11 | XMS_ITS | Encounter Summary ---
:1935 Author Organization [facility] Address [address], [place] [address] Care Team Providers Name Role Phone Unavailable Primary Care Provider Unavailable Reason for Visit Reason Onset Date Comments Post Visit Follow Up Phone Call 05/24/2016 Encounter Details Date Type Department Care Team Description 05/24/2016 Telephone [facility] Modesta Fitzgerald RN Post Visit Follow Up [address] [facility] Phone Call [place], [place] [address] Social History Tobacco Use Types Packs/Day Years [...]
--- OUTSIDE RECORDS SUMMARY | 2022-06-07 21:11 | XMS_ITS | Encounter Summary ---
:1935 Author Organization [facility] Address [address], [place] [address] Care Team Providers Name Role Phone Unavailable Primary Care Provider Unavailable Reason for Referral Procedure/Equipment (Routine) - Incomplete Specialty Diagnoses / Procedures Referred By Contact Refer red To Contact Diagnoses Right lumbar radiculitis Kendall Lang MD Procedures XR Pelvis W Rt Lateral Hip [address] [facility] [address] [place] [address] Referral ID Status Reason Start Date Expiration Date Visits V isits Requested Authorized [id number] Incomplete 05/14/2016 08/13/2017 1 1 E FORMER Reason for Visit Reason Comments HIP PAIN Encounter Details Date Type Department Care Team Description 05/14/2016 Surgical Consult [facility] Kendall Lang MD Right lumbar CENTER [address] [address] [place] [address] [place], [place] (Primary Dx) [place] [address] [phone] Social History Tobacco Use Types Packs/Day Years Used Date Smoking Tobacco: Never Sex Assigned at Date Recorded Not on file documented as of this encounter Last Filed Vital Signs Vital Sign Reading Time Taken Comments Blood Pressure - - Pulse - - Temperature - - Respiratory Rate - - Oxygen Saturation - - Inhaled Oxygen Concentration - - Weight 94.3 kg (208 lb) 05/14/2016 10:19 AM CABLE FORMER Height 172.7 cm (5' 8) 05/14/2016 10:19 AM CABLE FORMER Body Mass Index 31.63 05/14/2016 10:19 AM CABLE FORMER documented in this encounter Progress Notes Kendall Lang MD - 05/14/2016 7:24 AM CST [facility] Orthopaedic Imogene Consultation 05/14/2016 Chief Complaint: Right Hip Pain History of Present Illness: Simon Castillo is a diabetic 80 y.o. male who presents with his for evaluation of atraumatic sharp right hip pain that started on 12/22/2015 and it radiates down the thigh to the anterior right knee. He describes the pain as feeling electric. The pain is worse with getting into a car, weightbearing on the right side, rotating the right hip, and shifting his weight to his right leg. He also experiences some low back pain that he believes is associated with his right hip. There is intermittent numbness/tingling in this leg. He does not remember if the pain is similar to his past left hip pain prior to surgery. The patient has tried cortisone injections and visco supplementation for the right k nee that has provided him with minor relief in his knee. He has a history of a left total hip arthroplasty. Allergies: The patient has allergies to Review of patient's allergies indicates no known allergies.. Current Medications: The patient has a current medication list which includes the following prescription(s): aspirin, atenolol, senna, and tamsulosin. Past Medical History: The patient has past medical history on file including diabetes, and spinal meningitis. Past Surgical History: The patient has past surgical history on file including left hip replacement. Family History: The patient's family history includes heart disease (father), and arthritis (mother). Social History: He is here today with his . 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 He lives with his spouse Mary Ann. The General Medical History Form dated 05/14/2016 was updated and reviewed with the patient; this is located in [facility] in [facility]. Review of Systems: Negative for respiratory, gastrointestinal, or neurologic symptoms. Physical Exam: Ht 1.727 m (5' 8) Wt 94.348 kg (208 lb) BMI 31.63 kg/m2 General: The patient is in no acute distress. He ambulates with an antalgic gait. Cardiovascular/Neuro: Sensation, motor function, and circulation are intact in the distal lower extremities. Right Hip: Leg lengths are equal. No erythema or ecchymosis. No effusion. 90 degrees of flexion. 20 degrees of internal rotation. 30 degrees of external rotation. Mild pain with range of motion of the hip. Right Knee. No effusion. Tenderness along the medial joint line. Imaging: Radiographs of the pelvis with right lateral hip - 2 views (05/14/2016): 2 views of the AP pelvis with right lateral hip show the is a left total hip replacement with no evidence of loosening and the right hip space is well preserved. I ordered and independently reviewed and interpreted the imaging studies above; the results were discussed with the patient and . Assessment: 1. Right lumbar radiculitis Plan: I discussed with the patient and his that I believe that his pain if coming from his back and that he should schedule a consult with Dr. Serrato. The patient and his voiced understanding andagreement of this plan. Scribe Disclosure: IAc, am serving as a scribe to document services personally performed by Kendall Lang MD at this visit, based upon the provider's statements to me. All documentation has been reviewed by the aforementioned provider prior to being entered into the official medical record. Entered on 05/14/2016 at 11:00 AM. I, Kendall Lang MD, attest that the above named individual is acting in scribe capacity, has observed my performance of the services performed at this visit and has documented them in accordance withmy direction. Entered on 05/14/2016 at 11:00 AM. Kendall Lang MD E FORMER documented in this encounter Plan of Treatment Not on filedocumented as of this encounter Results XR Pelvis W Rt Lateral Hip (05/14/2016 10:36 AM CABLE FORMER) Anatomical Region Laterality Modality Pelvis, Hip Digital Radiography Specimen (Source) Anatomical Location Collection Method / Collectio n Time Received Time / Laterality Volume Narrative 05/14/2016 12:04 PM CABLE FORMER 2 views of the AP pelvis with right lateral hip show the is a left total hip replacement with no evidence of loos ening and the right hip space is well preserved. Kendall Lang MD RAD GD documented in this encounter Visit Diagnoses Diagnosis Right lumbar radiculitis - Primary Thoracic or lumbosacral neuritis or radi culitis, unspecified Right hip pain Pain in joint, pelvic region and thigh documented in this encounter
--- OUTSIDE RECORDS SUMMARY | 2022-06-07 21:11 | XMS_ITS | Encounter Summary ---
:1935 Author Organization [facility] Address [address], [place] [address] Care Team Providers Name Role Phone Unavailable Primary Care Provider Unavailable Reason for Visit Reason Onset Date Comments Pre-procedure Call 05/21/2016 Encounter Details Date Type Department Care Team Description 05/21/2016 Telephone [facility] Amie Potter RN Pre-procedure Call [address] [place], [place] [address] Social History Tobacco Use Types Packs/Day Years Used Date Smoking Tobacco: Never Alcohol Use Standard Drinks/Week Comments No 0 (1 standard drink = 0.6 oz pure alcoho l) Sex Assigned at Date Recorded Not on file documented as of this encounter Nursing Notes Amie Potter RN - 05/21/2016 9:38 AM CST Pre-procedure instructions called to aaron Reese Reviewed Medical & Surgical History & information below: Arrival Time: 1230 Non sedation pt: Nothing 2 hours prior to procedure, Light meal ok prior to that. Sedation Pt: NPO solids 6 hours prior with Clear liquids up to 2 hours prior to procedure. Nothing for 2 hours prior. Encouraged pt to take prescription medications with a sip of water as usual in am. 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 Reviewed NSAID use with patient: (Cervical ARIES ONLY) Last Dose na Blood thinners (ARIES & RFA only): Last Dose stopped plavix 05/14/16 INR plan na Currently on Antibiotics? no Flu Shot/Vaccines within 7 days? no Recent Steroid injection? no If Diabetic is patient under good control? Recent BS? na Reminder if female age 50 or less will need a UPT if no hysterectomy. Wear loose fitting, comfortable clothing, no valuables (jewelry, etc). Bring photo ID & medical cards. Patient verbalized understanding of all of the above & questions/concerns answered. 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
== END 2022-04-18 16:56 | disposition home or self-care (01) ==
LOC: AMB 06-07 20:49
PROVIDERS: Visit Provider Family Medicine
DX: R10.9 Unspecified abdominal pain (principal); R11.10 Vomiting, unspecified
CPT/HCPCS: A0425; A0429

== ENCOUNTER 2022-04-18 17:16 | Observation (INO) | payer MEDICARE, BC, SELFPAY ==
[2022-04-18] VITALS (19 sets, daily range): BP systolic 73–105; BP diastolic 50–79; PULSE 60–166; RESP 20; TEMP 36.2–37.7; O2SAT 68–97; BMI 43.5; BMI 27.6
--- NOTE | 2022-04-18 17:34 | CRLHL7_ITS ---
For Patients: As a result of the Century Cures Act, medical imaging exams and procedure reports are released immediately into your electronic medical record. You may view this report before your referring provider. If you have questions, please contact your health care provider. Indication: Nausea and vomiting, distended abdomen Technique: Contrast enhanced CT of the abdomen and pelvis, Isovue 370, 80 cc IV Please note that all CT scans at this facility use dose modulation, iterative reconstruction, and/or weight-based dosing when appropriate to reduce radiation dose to as low as reasonably achievable. Comparison: March 14, 2000 and September 09, 2020 Findings: Heart is enlarged. Large hiatal hernia with air-fluid levels in the severely distended stomach. Small bilateral pleural effusions. Bibasilar atelectasis. There is mass effect upon the liver. No suspicious hepatic lesions. Hepatic veins are under opacified. The portal veins appear grossly patent. Redemonstrated cholelithiasis with gallbladder inflammation with interval placement of a cholecystostomy tube which terminates near the gallbladder fundus. Normal adrenal glands. Heterogeneously enhancing right renal mass (series 2, image 68) measuring approximately 2.7 x 2.5 centimeters (series 2, image 68). Additional low-attenuation renal lesions which are too small to characterize. Normal spleen. 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 Duodenum is distended. Severe atherosclerotic disease of the abdominal aorta. The celiac artery, SMA, renal arteries and renal veins appear patent. There is no significant lymphadenopathy. Bladder is distended with fluid. Prostate present although suboptimally evaluated due to streak artifact. There is thickening of the rectum (series 2, image 117) and sigmoid colon. Diverticulosis without acute diverticulitis. Severe dilatation of small bowel which is air and fluid filled. The cecum is abnormally located within the right upper quadrant with swirling of the associated mesentery. On prior examinations the cecum has been located within the right upper quadrant and in the midline upper abdomen consistent with mobile cecum. There is pneumatosis of the cecal wall. There is a small volume ascites. Bowel wall appears to enhance normally. There is a transition point in the right upper quadrant near the cholecystostomy tube. No definite portal venous gas. Bowel containing left inguinal hernia. Total left hip arthroplasty. Severe multilevel degenerative disc disease with multiple laminectomies. Similar chronic changes of the superior lumbar spine. Impression: 1. 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 2. Cecal pneumatosis highly concerning for developing ischemia. 3. Severe rectal/sigmoid wall thickening consistent with infectious, inflammatory or ischemic colitis. 4. Interval placement of a cholecystostomy tube. 5. Similar heterogeneous right renal lesion. Discussed with Lily Florentino by MD Tal at 7:48 PM on 04/18/22 per telephone. Please note that all CT scans at this facility use dose modulation, iterative reconstruction, and/or weight-based dosing when appropriate to reduce radiation dose to as low as reasonably achievable. Dictated by Vernon Parada MD @ 04/18/2022 7:53:53 PM (Electronically Signed)
--- NOTE | 2022-04-18 17:34 | ED.GENADULT ---
HPI - General Adult General Time Seen by Provider: 17:35 Date Seen: 04/18/22 Chief complaint: Nausea/Vomiting Stated complaint: Gallbladder Time Seen by Provider: 04/18/22 17:33 Source: patient, EMS and RN notes reviewed Mode of arrival: EMS Limitations: no limitations History of Present Illness HPI narrative: Patient is a 86-year-old male sent to us from [address] [place] [address] with green bilious vomiting and distended stomach. He reported the was admitted there from [facility] yesterday after a lengthy illness at [facility]. He had sepsis due to cholecystitis in the beginning of March, had Interventional Radiology place a percutaneous tube. Postprocedure he went to the ICU and was intubated. He ended up in a V-tach storm., ultimately ended up with a pacemaker. They did try amiodarone and mexiletine 1st. He had MSSA bacteremia. He was given 14 day treatment of Kefzol 2 g every 8 hours, started on 03/15. He had a complicating PICC line DVT and was on heparin. The PICC line was switched to his left arm instead of the right. He was initially hospitalized at [facility] in then looks like he went to [facility] on 03/27/2022. His current pulsed shows him to be resuscitated and full treatment. His is his healthcare agent. Patient is seemingly confused, not answering questions appropriately but is talking. Related Data Home Medications Medication Instructions Recorded Confirmed amlodipine 2.5 mg tablet 2.5 mg PO DAILY 03/14/22 03/14/22 atorvastatin 40 mg tablet 40 mg PO NIGHTLY 03/14/22 03/14/22 clopidogrel 75 mg tablet 75 mg PO DAILY 03/14/22 03/14/22 gabapentin 300 mg capsule 600 mg PO TID 03/14/22 03/14/22 metoprolol succinate 25 mg 25 mg PO DAILY 03/14/22 03/14/22 tablet,extended release 24 hr oxybutynin chloride 10 mg 10 mg PO DAILY 03/14/22 03/14/22 tablet,extended release 24 hr pantoprazole 40 mg tablet,delayed 40 mg PO DAILY 03/14/22 03/14/22 release ropinirole 0.25 mg tablet 0.25 mg PO TID 03/14/22 03/14/22 tramadol 50 mg tablet 50 mg PO BID PRN pain 03/14/22 03/14/22 aspirin 81 mg chewable tablet 81 mg PO DAILY 03/15/22 03/15/22 (Aspirin Childrens) sennosides 8.6 mg tablet (Winnie-snehal) 8.6 mg PO DAILY 03/15/22 03/15/22 tamsulosin 0.4 mg capsule 0.4 mg PO DAILY 03/15/22 03/15/22 Allergies Allergy/AdvReac Type Severity Reaction Status Date / Time Penicillins Allergy Verified 03/15/22 07:26 Review of Systems Status of ROS: Reports: unobtainable due to medical condition [facility] Medical History (Updated 04/18/22 @ 21:13 by Lily Angulo MD) Acute on chronic cholecystitis Anastomotic stricture of urinary tract Antiplatelet or antithrombotic long-term use BPH (benign prostatic hyperplasia) Cardiomyopathy Chronic pain disorder Chronotropic incompetence with sinus node dysfunction Coronary artery disease Dyslipidemia GERD (gastroesophageal reflux disease) History of cervical spine trauma Hypertension Pacemaker 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 Does not walk a lot on his own because of frequent falls. Smoking Status: Never smoker Do you use any of these nicotine containing products: None How often do you have a drink containing alcohol: never AUDIT-C Alcohol total score: 0 Non-prescribed substance use: denies use Exam Const: Vital Signs, click to edit/add: Vital Signs - 24 hr 04/18/22 17:21 04/18/22 18:10 04/18/22 17:32 Temperature 97.2 F L Pulse Rate 61 Pulse Rate [Left P ulse Oximeter] 60 Respiratory Rate 20 Blood Pressure 104/65 Blood Pressure [Le ft Upper Arm] 92/79 Pulse Oximetry 97 91 89 Oxygen Delivery Me thod Room Air 04/18/22 18:02 04/18/22 18:04 04/18/22 18:32 Temperature Pulse Rate Pulse Rate [Left P ulse Oximeter] Respiratory Rate Blood Pressure 73/50 L 79/61 L 75/59 L Blood Pressure [Le ft Upper Arm] Pulse Oximetry Oxygen Delivery Me thod 04/18/22 18:38 04/18/22 19:24 04/18/22 19:25 Temperature Pulse Rate 60 153 H 166 H Pulse Rate [Left P ulse Oximeter] Respiratory Rate Blood Pressure 105/67 Blood Pressure [Le ft Upper Arm] Pulse Oximetry 84 L 78 L 68 L Oxygen Delivery Me thod 04/18/22 19:30 04/18/22 20:00 04/18/22 20:02 Temperature Pulse Rate 143 H 61 61 Pulse Rate [Left P ulse Oximeter] Respiratory Rate Blood Pressure 88/65 L Blood Pressure [Le ft Upper Arm] Pulse Oximetry 82 L 90 90 [facility] appearance: ill appearing and frail appearing Nutritional appearance: cachectic Orientation/consciousness: Yes awake HENMT: Common normals: normocephalic and head/scalp atraumatic Head and scalp: normocephalic and atraumatic Other: Oropharynx, tongue very dry mucous membranes but no lesions noted. Eye: Common normals: PERRL, EOMs intact bilaterally, conjunctivae normal and no scleral icterus Conjunctiva: conjunctiva(e) normal Pupil: PERRL Neck & C-Spine: Common normals: full ROM, no lymphadenopathy, supple, no meningeal signs, no JVD and thyroid normal Thyroid: thyroid normal Resp: Common normals: normal respiratory effort, no retractions, no use of accessory muscles and clear to auscultation bilaterally Auscultation: clear to auscultation bilaterally Cardio: Common normals: no JVD, regular rate, regular rhythm, S1 normal heart sound, S2 normal heart sound, no gallops, no clicks and no murmurs Rate: regular rate Rhythm: regular rhythm Heart sounds: S1 normal and S2 normal GI: Other: Abdomen is grossly distended, patient reportedly had bilious emesis about 300 mL on arrival per nursing. I did give of order to attempt NG tube further request but they were unsuccessful. He has distant bowel sounds that her scares. He does not seem to be tender when I palpate his abdomen. I do not feel any masses. He has the drainage tube with dark bilious bile in the bag. Neuro: Sensorium/orientation: awake Meningeal signs: no meningeal signs Course Course Hospital Course: We will get appropriate labs started, initiated 250 mL fluid bolus as I am concerned about his cardiac status and do not want to fluid overload him. I do worry about infection again. Certainly seems like this could be an obstruction. I have ordered a CT abdomen pelvis with IV contrast for further evaluation of his current symptoms. Reevaluation(s) Reevaluation #1: Patient's blood pressure is 70s over 50s. He is confused but still easily arousable. Talking about nonsensically. His is now here and states he is worried about a flat tire she had recently and is talking about that. We will initiate 1 L normal saline over 1 hour. Nursing staff absolutely could not get an NG tube in but he seems to be comfortable with Zofran. I have significant concern that this patient is quite ill given his recent history. He will be watched quite closely. Need to try to attempt to get imaging, awaiting labs. Am going to need to try to have an in-depth discussion with his soon but would like some more current information. Time: 18:36 Consultations Consultation #1: Dr. Parada from [facility] called regarding radiology report. 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 Alternatively he did status could possibly be a closed loop obstruction with internal hernia but thought it was the cecal volvulus. We do have a page in to the ICU at [facility] regarding this patient but I will be calling back immediately to try to facilitate talking to the ICU as well as surgery. Time: 19:43 Consultation #2: Spoke with Dr. Renae from [facility] ICU. Reviewed the case. Patient was reportedly too frail to have his gallbladder out an os had the percutaneous yani tube placed. He understands we have been unsuccessful in placing NG tube. He is going to have his surgeon way in, consider this. He will let me know if the surgeon states there is no way surgery will will be done but otherwise will accept this patient. Time: 20:02 Consultation #3: [facility] did call back, unfortunately the surgeons who know this patient from [place] do not feel that he would survive exploratory laparotomy. They do understand that he will likely without it. Thus, I did gather his , his son and his [id number] together and we discussed this. He is going to be moved to comfort cares as surgery is not an option for him. He is already showing ischemic bowel, hypotension and elevated white count suggesting that he is septic with this already. I will be speaking with our hospitalist to admit for comfort cares. Did go over what comfort cares with mean, we would not continue to support with IV fluids as this would only prolonged, would treat his pain in any anxiety or symptoms as needed. He may need ongoing antiemetics as we have been on able to get an NG tube. Certainly the NG tube could be reached tried later by different nursing staff if felt clinically appropriate. Time: 20:16 Additional Consultation(s): 9:08 p.m.: Hospitalists is down here in the ER needing this patient. He will be accepting care. 180 minutes in critical care time for this patient which did include family meeting, discussion with [facility] residency director. Vital Signs Vital signs: Initial Vital Signs Temperature 97.2 F L 04/18/22 17:21 Temperature Source Temporal Artery Scan 04/18/22 17:21 Pulse Rate 60 04/18/22 17:21 Respiratory Rate 20 04/18/22 17:21 Blood Pressure 92/79 04/18/22 17:21 Blood Pressure Mean 83 04/18/22 17:21 Blood Pressure Position Sitting 04/18/22 17:21 Pulse Oximetry 97 04/18/22 17:21 Oxygen Delivery Method 04/18/22 17:21 Vital Signs Temperature 97.2 F L 04/18/22 17:21 Pulse Rate 60 04/18/22 17:21 Respiratory Rate 20 04/18/22 17:21 Blood Pressure 92/79 04/18/22 17:21 Pulse Oximetry 97 04/18/22 17:21 Oxygen Delivery Method 04/18/22 17:21 Temperature 97.2 F L 04/18/22 17:21 Pulse Rate 61 04/18/22 20:02 Respiratory Rate 20 04/18/22 17:21 Blood Pressure 88/65 L 04/18/22 20:02 Pulse Oximetry 90 04/18/22 20:02 Oxygen Delivery Method 04/18/22 17:21 Medical Decision Making Lab Data Lab results reviewed: Yes I reviewed the patient's lab results Labs: Lab Results 04/18/22 04/18/22 04/18/22 Range/Units 18:10 18:10 18:10 WBC 17.07 H (4.50-11.00) K/uL RBC 4.81 (4.30-5.90) m/uL Hgb 13.4 L (13.5-17.5) gm/dL Hct 42.0 (37.0-53.0) % MCV 87 (80-100) fL MCH 28 (26-34) pg MCHC 32 (32-36) gm/dL RDW Coeff of Kady 17.2 H (11.5-15.5) % Plt Count 401 (140-440) K/uL Neut % (Auto) 88.1 H (42.0-72.0) % Lymph % (Auto) 7.6 L (20-44) % Lamar % (Auto) 3.6 (0.0-11.0) % Eos % (Auto) 0.4 (0.0-7.0) % Baso % (Auto) 0.1 (0.0-3.0) % Neut # (Auto) 15.00 H (1.7-7.0) K/uL Lymph # (Auto) 1.30 (0.90-2.90) K/uL Lamar # (Auto) 0.60 (0.00-0.90) K/UL Eos # (Auto) 0.10 (0.00-0.50) K/uL Baso # (Auto) 0.00 (0.00-0.30) K/uL Abs Immat Gran (auto) 0.04 (0.00-0.30) K/uL VBG pH (7.32-7.43) VBG pCO2 (40-50) mmHG VBG pO2 (25-47) mmHG VBG HCO3 (21-28) mmol/L Sodium 139 (135-149) mmol/L Potassium 3.7 (3.6-5.1) mmol/L Chloride 100 (96-114) mmol/L Carbon Dioxide 29 (20-32) mmol/L BUN 19 (7-30) mg/dL Creatinine 1.2 (0.5-1.5) mg/dL Estimated Creat Clear 42.84 Estimated GFR 60 ml/min Glucose 146 H (60-115) mg/dL Lactate 1.9 (0.5-1.9) mmol/L Calcium 9.0 (8.4-10.6) mg/dL Magnesium 2.3 (1.5-2.6) mg/dL Total Bilirubin 1.1 (0.1-1.5) mg/dL AST 22 (12-35) U/L ALT 12 (4-50) U/L Alkaline Phosphatase 104 (40-150) U/L Troponin I (0.01-0.04) ng/mL C-Reactive Protein 3.0 H (0.5-1.0) mg/dL Total Protein 6.1 (6.0-8.3) g/dL Albumin 3.5 (3.3-5.0) g/dL SARS-CoV-2 (PCR) (Negative) 04/18/22 04/18/22 04/18/22 Range/Units 18:10 18:10 18:25 WBC (4.50-11.00) K/uL RBC (4.30-5.90) m/uL Hgb (13.5-17.5) gm/dL Hct (37.0-53.0) % MCV (80-100) fL MCH (26-34) pg MCHC (32-36) gm/dL RDW Coeff of Kady (11.5-15.5) % Plt Count (140-440) K/uL Neut % (Auto) (42.0-72.0) % Lymph % (Auto) (20-44) % Lamar % (Auto) (0.0-11.0) % Eos % (Auto) (0.0-7.0) % Baso % (Auto) (0.0-3.0) % Neut # (Auto) (1.7-7.0) K/uL Lymph # (Auto) (0.90-2.90) K/uL Lamar # (Auto) (0.00-0.90) K/UL Eos # (Auto) (0.00-0.50) K/uL Baso # (Auto) (0.00-0.30) K/uL Abs Immat Gran (auto) (0.00-0.30) K/uL VBG pH 7.382 (7.32-7.43) VBG pCO2 51 H (40-50) mmHG VBG pO2 31.0 (25-47) mmHG VBG HCO3 30 H (21-28) mmol/L Sodium (135-149) mmol/L Potassium (3.6-5.1) mmol/L Chloride (96-114) mmol/L Carbon Dioxide (20-32) mmol/L BUN (7-30) mg/dL Creatinine (0.5-1.5) mg/dL Estimated Creat Clear Estimated GFR ml/min Glucose (60-115) mg/dL Lactate (0.5-1.9) mmol/L Calcium (8.4-10.6) mg/dL Magnesium (1.5-2.6) mg/dL Total Bilirubin (0.1-1.5) mg/dL AST (12-35) U/L ALT (4-50) U/L Alkaline Phosphatase (40-150) U/L Troponin I 0.03 (0.01-0.04) ng/mL C-Reactive Protein (0.5-1.0) mg/dL Total Protein (6.0-8.3) g/dL Albumin (3.3-5.0) g/dL SARS-CoV-2 (PCR) Negative SARS-CoV-2 (Negative) 04/18/22 Range/Units 20:17 WBC (4.50-11.00) K/uL RBC (4.30-5.90) m/uL Hgb (13.5-17.5) gm/dL Hct (37.0-53.0) % MCV (80-100) fL MCH (26-34) pg MCHC (32-36) gm/dL RDW Coeff of Kady (11.5-15.5) % Plt Count (140-440) K/uL Neut % (Auto) (42.0-72.0) % Lymph % (Auto) (20-44) % Lamar % (Auto) (0.0-11.0) % Eos % (Auto) (0.0-7.0) % Baso % (Auto) (0.0-3.0) % Neut # (Auto) (1.7-7.0) K/uL Lymph # (Auto) (0.90-2.90) K/uL Lamar # (Auto) (0.00-0.90) K/UL Eos # (Auto) (0.00-0.50) K/uL Baso # (Auto) (0.00-0.30) K/uL Abs Immat Gran (auto) (0.00-0.30) K/uL VBG pH (7.32-7.43) VBG pCO2 (40-50) mmHG VBG pO2 (25-47) mmHG VBG HCO3 (21-28) mmol/L Sodium (135-149) mmol/L Potassium (3.6-5.1) mmol/L Chloride (96-114) mmol/L Carbon Dioxide (20-32) mmol/L BUN (7-30) mg/dL Creatinine (0.5-1.5) mg/dL Estimated Creat Clear Estimated GFR ml/min Glucose (60-115) mg/dL Lactate 1.4 (0.5-1.9) mmol/L Calcium (8.4-10.6) mg/dL Magnesium (1.5-2.6) mg/dL Total Bilirubin (0.1-1.5) mg/dL AST (12-35) U/L ALT (4-50) U/L Alkaline Phosphatase (40-150) U/L Troponin I (0.01-0.04) ng/mL C-Reactive Protein (0.5-1.0) mg/dL Total Protein (6.0-8.3) g/dL Albumin (3.3-5.0) g/dL SARS-CoV-2 (PCR) (Negative) ECG Data Attestation: I personally reviewed and interpreted this ECG as follows: (AV paced, 61 beats per minute thus, wide complex.) Prior ECG tracings: not available for review Critical Care Time Critical Care Time Critical Care Time: Yes Attestation: The patient required my highest level preparedness to intervene emergently and I personally spent this critical care time directly and personally managing the patient. This critical care time included: Obtaining a history; Examining the patient; Pulse oximetry; Ordering and reviewing of studies; Arranging urgent treatment with development of a management plan; Evaluation of patients response to treatment; Frequent reassessment discussions with other providers. This critical care time was performed to assess and manage the high probability of imminent life-threatening deterioration that could result in multiorgan failure. It was exclusive of separate billable procedures and treating other patients and teaching time. Total Critical Care Time in Minutes: 180 Discharge Plan Discharge Clinical Impression: Complete small bowel obstruction, Cecal volvulus, Sepsis, Need for comfort care Patient Disposition: Admitted As Inpatient
[2022-04-18] MEDS: ONDANSETRON 2 MG/ML inj 4 MG IVP (17:55)
--- NOTE | 2022-04-18 18:00 | ED.NURSE ---
Pt vomited 300cc green liquid during triage. Attempted to place NG tube x2 without success. Dr Zimmerman updated.
[2022-04-18] MEDS: 0.9 % SODIUM CHLORIDE 250 ml 250 ML IV (18:11)
[2022-04-18 18:20] LABS: Basophils Percent Auto 0.1 % (0.0-3.0); Eosinophils Percent Auto 0.4 % (0.0-7.0); Hemoglobin* 13.4 gm/dL (13.5-17.5); Immature Granulocytes Abs Auto 0.04 K/uL (0.00-0.30); Lymphocytes Percent Auto 7.6 % (20-44); Mean Corpuscular HGB Conc 32 gm/dL (32-36); Mean Corpuscular Hemoglobin 28 pg (26-34); Mean Corpuscular Volume 87 fL (80-100); Monocytes Percent Auto 3.6 % (0.0-11.0); Neutrophils Percent Auto 88.1 % (42.0-72.0); Platelet Count* 401 K/uL (140-440); RDW Coefficient of Variation % 17.2 % (11.5-15.5); Red Blood Count 4.81 m/uL (4.30-5.90); White Blood Count* 17.07 K/uL (4.50-11.00)
[2022-04-18 18:23] LABS: HCO3 VBG 30 mmol/L (21-28); PCO2 VBG 51 mmHG (40-50); pH VBG 7.382 (7.32-7.43)
[2022-04-18 18:25] LABS: Lactate* 1.9 mmol/L (0.5-1.9)
[2022-04-18 18:34] LABS: Slide Review Reflex No
[2022-04-18] MEDS: 0.9 % SODIUM CHLORIDE 1000 ml 1,000 ML IV (18:35)
[2022-04-18 18:39] LABS: Albumin* 3.5 g/dL (3.3-5.0); Chloride* 100 mmol/L (96-114); Sodium* 139 mmol/L (135-149)
[2022-04-18 18:40] LABS: Potassium* 3.7 mmol/L (3.6-5.1)
[2022-04-18 18:42] LABS: Creatinine* 1.2 mg/dL (0.5-1.5); Est. Creatinine Clearance* 42.84; Estimated Glomerular Filt Rate 60 ml/min
[2022-04-18 18:43] LABS: Alanine Aminotransferase* 12 U/L (4-50); Alkaline Phosphatase* 104 U/L (40-150); Aspartate Amino Transferase* 22 U/L (12-35); Bilirubin Total* 1.1 mg/dL (0.1-1.5); Blood Urea Nitrogen* 19 mg/dL (7-30); Carbon Dioxide* 29 mmol/L (20-32); Glucose* 146 mg/dL (60-115); Magnesium* 2.3 mg/dL (1.5-2.6); Total Protein* 6.1 g/dL (6.0-8.3)
[2022-04-18 18:54] LABS: Troponin I* 0.03 ng/mL (0.01-0.04)
[2022-04-18 19:55] LABS: SARS PCR* Negative SARS-CoV-2 (Negative)
[2022-04-18] MEDS: CEFEPIME HCL 2 GM in 0.9 % SODIUM CHLORIDE Mini-bag 100 ML IVPB (20:15)
[2022-04-18 20:22] LABS: Lactate* 1.4 mmol/L (0.5-1.9)
--- NOTE | 2022-04-18 20:34 | ED.NURSE ---
Three links updated that pt will be comfort cares. Sats decrease to low 80s while sleeping, increase to 93 when awake. O2 placed via nasal cannula at 2LPM. Dr Zimmerman updated.
--- NOTE | 2022-04-18 22:26 | PM.IMHP1 ---
Hospitalist- H&P: HPI History of Present Illness Time Seen by Provider: 21:00 Date Seen: 04/18/22 Chief complaint: Nausea, vomiting, distended abdomen Narrative: Simon Castillo is a 86 year old man who presents with new onset nausea, vomiting, and abdominal distension. Patient has been hospitalized for the better part of the last month with multiple fairly complex conditions. Presented to our hospital on 03/14/2022 with acute on chronic cholecystitis. Had Gram-positive bacteremia, MSSA. Deemed not to be a surgical candidate. Transferred to another institution, [facility], for interventional radiology placed a percutaneous cholecystostomy tube. Developed respiratory failure, required intubation and ventilation. Developed ventricular tachycardia storm. Managed medically with amiodarone, added mexiletine, ultimately had to have a permanent pacemaker implantation. Gram-positive bacteremia treated with 14 days of IV Kefzol 2 g q.8 hours. Required placement of a PICC line. Developed a DVT in the right arm. PICC line was removed and transferred to the left side. On 03/27/2022 was transferred to [place], [place]. Yesterday was discharged from [facility] to [address] [place] [address]. Today started to have nausea, vomiting, abdominal distension. Transferred via EMS to [facility] for further assessment. In our hospital patient was in shock. Systolic blood pressures ranging from 70-90. Heart rate paced at 70 beats per minute. Treated with IV fluids. Blood cultures obtained. Cefepime IV administered. Eventually CT scan of abdomen pelvis obtained demonstrating high-grade bowel obstruction with cecal volvulus and already present pneumatosis suggesting already present ischemia. Multiple attempts were made at placing NG tube but were unsuccessful. Patient has been relatively comfortable since he presented here. Have not had to employed any opioids or antiemetics thus far. Reviewed the case with consultants at [facility]. These consultants or ready familiar with the patient given that he was just discharged from the hospital yesterday. Decision was made that he is not a surgical candidate. They recommended comfort care measures only. Reviewed this with the patient's and son who are present. They concurred. They change the patient's resuscitation status from full resuscitation to comfort measures only with DNR DNI resuscitation status. They concurred that they do not want any additional disease directed diagnostic or interventional efforts. Patient has a cognitive impairment. We explained to him his condition is serious and would like to keep him comfortable in the hospital. Patient was agreeable inasmuch as he is able to comprehend. Review of Systems Status of ROS: Reports: 10 or more systems reviewed and unremarkable except as noted in History and below Narrative: Review of systems obtained from patient, , son. Patient not a very reliable historian. As best as I can tell he has not had any chest heaviness, pressure, tightness, or discomfort. Denies dyspnea. Denies syncope. Nausea vomiting have since resolved. Denies palpitations. States he is comfortable. Requires assistance with 5 of 6 ADLs, still able to feed self when food presented to him. Has limited ability to express wants and desires. [facility] Medical History Acute cholangitis Acute on chronic cholecystitis Acute respiratory failure with hypoxia Anastomotic stricture of urinary tract Antiplatelet or antithrombotic long-term use BPH (benign prostatic hyperplasia) Cardiomyopathy Chronic pain disorder Chronotropic incompetence with sinus node dysfunction Coronary artery disease Dyslipidemia GERD (gastroesophageal reflux disease) History of cervical spine trauma Hypertension Pacemaker Pancreatic cyst Personal history of sudden cardiac arrest Post laminectomy syndrome SVT (supraventricular tachycardia) Surgical History A-V fistula H/O cataract removal with insertion of prosthetic lens H/O hemorrhoidectomy History of appendectomy History of coronary artery stent placement History of hip replacement History of permanent cardiac pacemaker placement Hx of laminectomy S/P tonsillectomy and adenoidectomy Social History Narrative: Patient lives with his . Does not walk a lot on his own because of frequent falls. Smoking Status: Never smoker Do you use any of these nicotine containing products: None How often do you have a drink containing alcohol: never AUDIT-C Alcohol total score: 0 Non-prescribed substance use: denies use Meds Home Medications and Allergies Home Medications Medication Instructions Recorded Confirmed Type amlodipine 2.5 mg tablet 2.5 mg PO DAILY 03/14/22 03/14/22 History atorvastatin 40 mg tablet 40 mg PO NIGHTLY 03/14/22 03/14/22 History clopidogrel 75 mg tablet 75 mg PO DAILY 03/14/22 03/14/22 History gabapentin 300 mg capsule 600 mg PO TID 03/14/22 03/14/22 History metoprolol succinate 25 mg 25 mg PO DAILY 03/14/22 03/14/22 History tablet,extended release 24 hr oxybutynin chloride 10 mg 10 mg PO DAILY 03/14/22 03/14/22 History tablet,extended release 24 hr pantoprazole 40 mg tablet,delayed 40 mg PO DAILY 03/14/22 03/14/22 History release ropinirole 0.25 mg tablet 0.25 mg PO TID 03/14/22 03/14/22 History tramadol 50 mg tablet 50 mg PO BID PRN pain 03/14/22 03/14/22 History aspirin 81 mg chewable tablet 81 mg PO DAILY 03/15/22 03/15/22 History (Aspirin Childrens) sennosides 8.6 mg tablet (Winnie-snehal) 8.6 mg PO DAILY 03/15/22 03/15/22 History tamsulosin 0.4 mg capsule 0.4 mg PO DAILY 03/15/22 03/15/22 History Allergies Allergy/AdvReac Type Severity Reaction Status Date / Time Penicillins Allergy Verified 03/15/22 07:26 Exam Narrative: Exam Narrative: I examine him in the emergency department. When I see him he appears comfortable. He is asleep. I am able to arouse him from his sleep with conversation and holding his hand. He smiles at me in tells me he feels comfortable and has no pain. When awake he is alert and oriented to self. He does recognize his and son. Not oriented to place, time, or situation at this juncture. Hearing is preserved. Vision is grossly normal, again he recognizes his and son. Dentition in fair repair. Neck is supple. Midline trachea. Normal thyroid. No JVD or hepatojugular reflux or carotid bruits. No lymphadenopathy. Lungs are clear to auscultation save decreased breath sounds in bases. Heart tones with regular rhythm. Normal S1-S2. No murmur, gallop, or rub. Abdomen with marked distension. Hyper tympany. No obvious discomfort to palpation at this time. No rebound or guarding. Capillary refill less than 3 seconds in upper extremities. Dependent edema in feet, pretibial area, thighs, sacrum. Moving all 4 extremities at this time. Const: Vital Signs, click to edit/add: Vital Signs - 24 hr 04/18/22 17:21 04/18/22 18:10 04/18/22 17:32 Temperature 97.2 F L Pulse Rate 61 Pulse Rate [Left P ulse Oximeter] 60 Respiratory Rate 20 Blood Pressure 104/65 Blood Pressure [Le ft Upper Arm] 92/79 Pulse Oximetry 97 91 89 Oxygen Delivery Me thod Room Air 04/18/22 18:02 04/18/22 18:04 04/18/22 18:32 Temperature Pulse Rate Pulse Rate [Left P ulse Oximeter] Respiratory Rate Blood Pressure 73/50 L 79/61 L 75/59 L Blood Pressure [Le ft Upper Arm] Pulse Oximetry Oxygen Delivery Me thod 04/18/22 18:38 04/18/22 19:24 04/18/22 19:25 Temperature Pulse Rate 60 153 H 166 H Pulse Rate [Left P ulse Oximeter] Respiratory Rate Blood Pressure 105/67 Blood Pressure [Le ft Upper Arm] Pulse Oximetry 84 L 78 L 68 L Oxygen Delivery Me thod 04/18/22 19:30 04/18/22 20:00 04/18/22 20:02 Temperature Pulse Rate 143 H 61 61 Pulse Rate [Left P ulse Oximeter] Respiratory Rate Blood Pressure 88/65 L Blood Pressure [Le ft Upper Arm] Pulse Oximetry 82 L 90 90 Oxygen Delivery Me thod Documenting provider has reviewed patient's vital signs: yes Hospitalist - H&P: Result Labs Labs: Short CBC 04/18/22 Range/Units 18:10 WBC 17.07 H (4.50-11.00) K/uL Hgb 13.4 L (13.5-17.5) gm/dL Hct 42.0 (37.0-53.0) % Plt Count 401 (140-440) K/uL BMP 04/18/22 18:10 Sodium 139 Potassium 3.7 Chloride 100 Carbon Dioxide 29 BUN 19 Creatinine 1.2 Glucose 146 H Calcium 9.0 Cardiac Enzymes 04/18/22 Range/Units 18:10 Troponin I 0.03 (0.01-0.04) ng/mL Liver Function 04/18/22 Range/Units 18:10 Total Bilirubin 1.1 (0.1-1.5) mg/dL AST 22 (12-35) U/L ALT 12 (4-50) U/L Alkaline Phosphatase 104 (40-150) U/L Albumin 3.5 (3.3-5.0) g/dL ECG ECG interpretation date: 04/18/22 ECG interpretation time: 22:00 Prior ECG tracings: not available for review Interpretation: Paced rhythm. Imaging CT abdomen and pelvis: Attestation: I have reviewed the pertinent imaging results. Radiologist's impression: 1. 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 2. Cecal pneumatosis highly concerning for developing ischemia. 3. Severe rectal/sigmoid wall thickening consistent with infectious, inflammatory or ischemic colitis. 4. Interval placement of a cholecystostomy tube. 5. Similar heterogeneous right renal lesion. Assessment and Plan Assessment and plan (1) Septic shock: Status: Acute (2) Complete small bowel obstruction: Status: Acute (3) Cecal volvulus: Status: Acute (4) Acute on chronic cholecystitis: Problem comment: Has percutaneous cholecystostomy in place. Status: Acute (5) Delirium: Problem comment: Patient has progressed from anxiety to delirium Status: Acute (6) Cardiomyopathy: Problem comment: ischemic cardiomyopathy and prior inferior wall myocardial infarction years ago. His left ventricular systolic function has been mildly reduced over the years with an estimated systolic ejection fraction of 40-45%. s/p Stents and Pacemaker; h/o of cardiac arrest in 1997 and 2011. EF 55% 03/20/2022. Status: Acute (7) Coronary artery disease: Problem comment: dual antiplatelet for life (both neurological and cardiogenic reasons) Status: Acute (8) Chronotropic incompetence with sinus node dysfunction: Problem comment: s/p pacemaker in 10/27. Status: Acute (9) Need for comfort care: Status: Acute Plan 1. I reviewed the patient's condition with our emergency department physician. 2. The emergency department physician and I visit with the patient's and son. We reviewed the nature of the patient's condition. We explained the terminal nature of his current condition. We reviewed our efforts to consider surgical interventions with them. They expressed understanding of his not being a surgical candidate. We reviewed how there is no medical management for this condition. We went on to discuss comfort focus treatment efforts. They were entirely on board with this and agreed to proceed with this approach. They change the paradigm of care from full resuscitation to DNR DNI. They wholeheartedly indicate that they no longer want any additional disease directed diagnostic or interventional efforts to be undertaken. We discussed the patient's poor prognosis and our inability to tell them exactly how long he might live. They were comfortable with this assessment. They will be informing other family members. 3. Comfort focus treatments. 4. Will have our director of social media marketing staff assist us in discharge disposition planning should he survive much longer. 5. Patient is agreeable to plan to keep him comfortable. He actually smiles at me when I tell him that his and son agree with this plan as well. He tells me, ?That's good. ?
[2022-04-19] VITALS: RESP 20
[2022-04-19 04:34] VITALS: RESP 20; O2SAT 93
--- NOTE | 2022-04-19 07:00 | PC.NURSE ---
END OF SHIFT NOTE: PT ON COMFORT CARES. TURNED AND REPOSITIONED THROUGHOUT THE NIGHT. FAMILY (SON-[place], -MICHAEL) SPENT NIGHT AT PT'S BEDSIDE. PT IS NPO. INCONTINENT OF BOWEL AND BLADDER. A&O TO SELF. PT DID NOT REQUIRE ANY PRN MEDICATIONS FOR PAIN OR AGITATION THIS SHIFT.
--- NOTE | 2022-04-19 12:39 | PM.DN ---
Pronouncement Note Date and Time of Date of : 04/19/22 Time of : 08:55 PCOD Preliminary cause of : Small bowel obstruction Summary Additional details: Patient was admitted last night with a cecal volvulus small-bowel obstruction. He was not considered a surgical candidate based on his extensive medical history. He was with comfort cares. Patient peacefully this morning at 8:55 a.m. we feel his cardiac arrest was principally related to ischemic bowel and volume depletion. 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
--- NOTE | 2022-04-19 12:42 | PM.DS1 ---
DS: Providers Provider Date Seen: 04/19/22 Date of admission: 04/18/22 21:40 Primary care physician: Not a Local Provider Admitting Clinician: Fermin Real MD Consults: 04/18/22 21:42 Consult to Accredited Legal Secretary [CONS] Routine Comment: Reason for Consult:: Social Service Consult Attending Physician on discharge: Whit Cueto MD [facility] Date of Discharge: 04/19/22 DS: Diagnosis Discharge Diagnosis (1) Septic shock: Status: Acute (2) Complete small bowel obstruction: Status: Acute (3) Cecal volvulus: Status: Acute (4) Need for comfort care: Status: Acute (5) Delirium: Status: Acute Problem details: Patient has progressed from anxiety to delirium (6) Cardiomyopathy: Status: Acute Problem details: ischemic cardiomyopathy and prior inferior wall myocardial infarction years ago. His left ventricular systolic function has been mildly reduced over the years with an estimated systolic ejection fraction of 40-45%. s/p Stents and Pacemaker; h/o of cardiac arrest in 1997 and 2011. EF 55% 03/20/2022. DS: Summary Hospital Course Hospital Course: We will get appropriate labs started, initiated 250 mL fluid bolus as I am concerned about his cardiac status and do not want to fluid overload him. I do worry about infection again. Certainly seems like this could be an obstruction. I have ordered a CT abdomen pelvis with IV contrast for further evaluation of his current symptoms. Time Spent with Patient Time attestation: Total time spent providing and/or coordinating discharge services: Exam Const: Vital Signs, click to edit/add: Vital Signs - 24 hr 04/18/22 17:21 04/18/22 18:10 04/18/22 17:32 Temperature 97.2 F L Pulse Rate 61 Pulse Rate [Left P ulse Oximeter] 60 Respiratory Rate 20 Blood Pressure 104/65 Blood Pressure [Le ft Upper Arm] 92/79 Blood Pressure [Ri ght Arm] Pulse Oximetry 97 91 89 Oxygen Delivery Me thod Room Air Oxygen Flow Rate 04/18/22 18:02 04/18/22 18:04 04/18/22 18:32 Temperature Pulse Rate Pulse Rate [Left P ulse Oximeter] Respiratory Rate Blood Pressure 73/50 L 79/61 L 75/59 L Blood Pressure [Le ft Upper Arm] Blood Pressure [Ri ght Arm] Pulse Oximetry Oxygen Delivery Me thod Oxygen Flow Rate 04/18/22 18:38 04/18/22 19:24 04/18/22 19:25 Temperature Pulse Rate 60 153 H 166 H Pulse Rate [Left P ulse Oximeter] Respiratory Rate Blood Pressure 105/67 Blood Pressure [Le ft Upper Arm] Blood Pressure [Ri ght Arm] Pulse Oximetry 84 L 78 L 68 L Oxygen Delivery Me thod Oxygen Flow Rate 04/18/22 19:30 04/18/22 20:00 04/18/22 20:02 Temperature Pulse Rate 143 H 61 61 Pulse Rate [Left P ulse Oximeter] Respiratory Rate Blood Pressure 88/65 L Blood Pressure [Le ft Upper Arm] Blood Pressure [Ri ght Arm] Pulse Oximetry 82 L 90 90 Oxygen Delivery Me thod Oxygen Flow Rate 04/18/22 20:30 04/18/22 21:00 04/18/22 21:30 Temperature 97.2 F L 97.2 F L 97.2 F L Pulse Rate Pulse Rate [Left P ulse Oximeter] 62 60 60 Respiratory Rate 20 20 20 Blood Pressure Blood Pressure [Le ft Upper Arm] 100/72 93/66 89/70 L Blood Pressure [Ri ght Arm] Pulse Oximetry 90 90 90 Oxygen Delivery Me thod Room Air Room Air Room Air Oxygen Flow Rate 04/18/22 22:00 04/18/22 22:30 04/18/22 22:34 Temperature 97.2 F L 97.2 F L Pulse Rate Pulse Rate [Left P ulse Oximeter] 60 60 Respiratory Rate 20 20 Blood Pressure Blood Pressure [Le ft Upper Arm] 95/68 95/68 Blood Pressure [Ri ght Arm] Pulse Oximetry 90 95 Oxygen Delivery Me thod Room Air Nasal Cannula Oxygen Flow Rate 2 04/18/22 22:53 04/19/22 00:00 04/19/22 04:34 Temperature 99.8 F H Pulse Rate Pulse Rate [Left P ulse Oximeter] 68 Respiratory Rate 20 20 20 Blood Pressure Blood Pressure [Le ft Upper Arm] Blood Pressure [Ri ght Arm] 103/69 Pulse Oximetry 94 93 Oxygen Delivery Me thod Nasal Cannula Nasal Cannula Oxygen Flow Rate 2 2 DS: Data Data Completed and Pending Completed studies during hospitalization: Procedures Judaism of Cardiac Rhythm, Single (03/14/22) Labs on day of discharge: Labs from last 24 hours 04/18/22 04/18/22 04/18/22 20:17 18:25 18:10 WBC RBC Hgb Hct MCV MCH MCHC RDW Coeff of Kady Plt Count Neut % (Auto) Lymph % (Auto) [place] % (Auto) Eos % (Auto) Baso % (Auto) Neut # (Auto) Lymph # (Auto) [place] # (Auto) Eos # (Auto) Baso # (Auto) Abs Immat Gran (auto) VBG pH 7.382 VBG pCO2 51 H VBG pO2 31.0 VBG HCO3 30 H Sodium Potassium Chloride Carbon Dioxide BUN Creatinine Estimated Creat Clear Estimated GFR Glucose Lactate 1.4 Calcium Magnesium Total Bilirubin AST ALT Alkaline Phosphatase Troponin I C-Reactive Protein Total Protein Albumin SARS-CoV-2 (PCR) Negative SARS-CoV-2 04/18/22 04/18/22 04/18/22 18:10 18:10 18:10 WBC RBC Hgb Hct MCV MCH MCHC RDW Coeff of Kady Plt Count Neut % (Auto) Lymph % (Auto) [place] % (Auto) Eos % (Auto) Baso % (Auto) Neut # (Auto) Lymph # (Auto) [place] # (Auto) Eos # (Auto) Baso # (Auto) Abs Immat Gran (auto) VBG pH VBG pCO2 VBG pO2 VBG HCO3 Sodium 139 Potassium 3.7 Chloride 100 Carbon Dioxide 29 BUN 19 Creatinine 1.2 Estimated Creat Clear 42.84 Estimated GFR 60 Glucose 146 H Lactate 1.9 Calcium 9.0 Magnesium 2.3 Total Bilirubin 1.1 AST 22 ALT 12 Alkaline Phosphatase 104 Troponin I 0.03 C-Reactive Protein 3.0 H Total Protein 6.1 Albumin 3.5 SARS-CoV-2 (PCR) 04/18/22 18:10 WBC 17.07 H RBC 4.81 Hgb 13.4 L Hct 42.0 MCV 87 MCH 28 MCHC 32 RDW Coeff of Kday 17.2 H Plt Count 401 Neut % (Auto) 88.1 H Lymph % (Auto) 7.6 L [place] % (Auto) 3.6 Eos % (Auto) 0.4 Baso % (Auto) 0.1 Neut # (Auto) 15.00 H Lymph # (Auto) 1.30 [place] # (Auto) 0.60 Eos # (Auto) 0.10 Baso # (Auto) 0.00 Abs Immat Gran (auto) 0.04 VBG pH VBG pCO2 VBG pO2 VBG HCO3 Sodium Potassium Chloride Carbon Dioxide BUN Creatinine Estimated Creat Clear Estimated GFR Glucose Lactate Calcium Magnesium Total Bilirubin AST ALT Alkaline Phosphatase Troponin I C-Reactive Protein Total Protein Albumin SARS-CoV-2 (PCR) Discharge Plan Discharge Date of Admission: 04/18/22 21:40 Attending Physician on Admission: Fermin Real Primary Care Provider: Provider,Not a Local Discharge Medications: No Action atorvastatin 40 mg tablet 40 mg PO NIGHTLY Label Comments: TAKE 1 TABLET BY MOUTH EVERY DAY oxybutynin chloride 10 mg tablet extended release 24hr 10 mg PO DAILY Label Comments: TAKE 1 TABLET BY MOUTH EVERY DAY amlodipine 2.5 mg tablet 2.5 mg PO DAILY Label Comments: TAKE 1 TABLET BY MOUTH ONCE DAILY. tramadol 50 mg tablet 50 mg PO BID PRN (Reason: pain) Label Comments: TAKE 1 TABLET (50 MG) BY MOUTH 2 TIMES DAILY IF NEEDED FOR PAIN. ropinirole 0.25 mg tablet 0.25 mg PO TID Label Comments: TAKE 1 TABLET (0.25 MG) BY MOUTH 3 TIMES DAILY. pantoprazole 40 mg tablet,delayed release (DR/EC) 40 mg PO DAILY Label Comments: TAKE 1 TABLET BY MOUTH EVERY DAY gabapentin 300 mg capsule 600 mg PO TID Label Comments: TAKE 2 CAPSULES BY MOUTH 3 TIMES DAILY. metoprolol succinate 25 mg tablet extended release 24 hr 25 mg PO DAILY Label Comments: TAKE 1 TABLET BY MOUTH EVERY DAY clopidogrel 75 mg tablet 75 mg PO DAILY Label Comments: TAKE 1 TABLET BY MOUTH EVERY DAY aspirin [Aspirin Childrens] 81 mg tablet,chewable 81 mg PO DAILY tamsulosin 0.4 mg capsule 0.4 mg PO DAILY Label Comments: TAKE 1 CAPSULE (0.4 MG) BY MOUTH ONCE DAILY AFTER A MEAL. sennosides [Winnie-snehal] 8.6 mg tablet 8.6 mg PO DAILY Follow Up Appointments: Provider,Not a Local [Primary Care Provider] - Hospital Course: We will get appropriate labs started, initiated 250 mL fluid bolus as I am concerned about his cardiac status and do not want to fluid overload him. I do worry about infection again. Certainly seems like this could be an obstruction. I have ordered a CT abdomen pelvis with IV contrast for further evaluation of his current symptoms.
--- NOTE | 2022-04-19 16:11 | PC.NURSE ---
-- Pt was pleasant and alert this morning. He asked to use the commode to have a BM when first meeting patient this morning. He was up to the commode with assist of 2 and did have a large liquid yellow brown BM at that time. Pt then began to vomit. This nurse set up suction, but ceased breathing prior to suctioning. MD was at bedside and did declare pt as of 854. Pt placed back into bed via ceiling lift. Family was at bedside and did sit with patient for a few hours. [facility] contacted by charge nurse and pt was deemed not a candidate for organ donation. [facility] contacted per family request and body was released to home at 1430.
== END 2022-04-19 14:43 | disposition expired ==
LOC: ED 21:13 → MEDSURG 21:41
PROVIDERS: Admitting Provider Internal Medicine; Emergency Provider Family Medicine; Visit Provider Internal Medicine
DX: K56.601 Complete intestinal obstruction, unspecified as to cause (principal); K56.2 Volvulus; R65.21 Severe sepsis with septic shock; A41.9 Sepsis, unspecified organism; K81.2 Acute cholecystitis with chronic cholecystitis; K55.9 Vascular disorder of intestine, unspecified; D72.829 Elevated white blood cell count, unspecified; I95.9 Hypotension, unspecified; Z95.0 Presence of cardiac pacemaker; I42.9 Cardiomyopathy, unspecified; I25.10 Atherosclerotic heart disease of native coronary artery without angina pectoris; I45.89 Other specified conduction disorders; Z51.5 Encounter for palliative care; K63.89 Other specified diseases of intestine; G31.84 Mild cognitive impairment of uncertain or unknown etiology; Z79.82 Long term (current) use of aspirin; I10 Essential (primary) hypertension
CPT/HCPCS: 36415; 74177; 80053; 82803; 83605; 83735; 84484; 85025; 86140; 87040; 87635; 93005; 94761; 96361; 96365; 96375; 99284; 99285; 99291; 99292; G0378; J0692; J2405; J7030; J7050; Q9967